=== PATIENT | female | born 1950 | race American Indian/Alaskan Native ===

== ENCOUNTER 2017-01-23 14:38 | Emergency (ER) | payer MEDICARE ==
[2017-01-23 17:07] LABS: Basophils % (Auto) 0.7 % (0.0-1.8); Eosinophils % (Auto) 2.6 % (0.0-4.3); Hemoglobin 10.9 gm/dl (10.1-14.3); Mean Corpuscular HGB Conc 32 % (30-34); Mean Corpuscular Hemoglobin 28 pg (28-32); Mean Corpuscular Volume 88 fl (79-97); Platelet Count 186 K/mm3 (140-440); Red Blood Count 3.87 M/mm3 (3.65-5.03); Red Cell Distribution Width 17.2 % (13.2-15.2); White Blood Count 6.5 K/mm3 (4.5-11.0)
[2017-01-23 17:18] LABS: Albumin 3.6 g/dL (3.9-5); Albumin/Globulin Ratio 0.9 %; BUN/Creatinine Ratio 4.51; Bilirubin,Total 0.4 mg/dL (0.1-1.2); Calcium 9.2 mg/dL (8.4-10.2); Potassium 3.7 mmol/L (3.6-5.0); Total Protein 7.4 g/dL (6.3-8.2)
--- NOTE | 2017-01-23 19:40 | Admit Criteria Form ---
Admission Criteria Documentation: RENAL FAILURE, CHRONIC Clinical Indications for Admission to Inpatient Care (Place 'X' for any and all applicable criteria): Admission is indicated for ANY ONE of the following (1)(2)(3)(4)(5): [ ]I. Inpatient admission required rather than observation care (Use Renal Failure, Chronic: Observation Care Criteria as appropriate) because of ANY ONE of the following: [ ]a) Volume overload or uremic symptoms (eg, clinically significant pulmonary edema, hypertension, pericarditis, acidosis) too severe for, or not responsive (eg, for over 24 hours) to emergency department or observation care dialysis or treatment regimen (11) [ ]b) Hemodynamic instability that is severe or persistent [ ]c) Respiratory distress that is severe or persistent (11) [ ]d) Clinically significant electrolyte abnormality that requires inpatient care (eg,hyperkalemia with severe ECG findings)[B] [ ]e) Supplement O2 or respiratory therapy for over 24hrs that is performable only in acute inpatient setting [ ]f) Continuous IV infusion of anticoagulation, platelet inhibitor, vasoactive, or Antiarrhythmic medication (15), [ ]g) Pulmonary artery catheter monitoring [ ]h) Temporary pacemaker placement [ ]i) Emergent pericardiocentesis [ ]j) Other condition, treatment or monitoring requiring inpatient admission [ ]II. Unexplained syncope [A] [ ]III. Recurrent seizures [ ]IV. Severe infections not treatable in outpatient setting (eg, peritonitis)(9 ) [ ]V. Cardiac arrhythmias of immediate concern [ ]. Encephalopathy [ ]VII.Bleeding abnormalities (eg, platelet dysfunction) with active (eg, gastrointestinal) bleeding Extended stay beyond goal length of stay may be needed for (3)(4)(35)(36): [ ]a) Continuing uremic complications [ ]b) Comorbidities or complications The original [employer] content created by [employer] has been revised. The portions of the content which have been revised are identified through the use of italic text or in bold, and [employer] has neither reviewed nor approved the modified material. All other unmodified content is copyright [employer]. Please see references footnoted in the original [employer] edition 2016
[2017-01-23 21:53] LABS: Bacteria,Urine 1+ /HPF (Negative); Bilirubin,Urine NEG (Negative); Blood,Urine MOD (Negative); Ketones,Urine NEG (Negative); Leukocyte Esterase,Urine LG (Negative); Nitrite,Urine NEG (Negative); Renal Epithelial Cells,Urine 1 /LPF; Urobilinogen,Urine < 2.0 mg/dL (<2.0)
[2017-01-24] MEDS ORDERED: VALIUM IM ONE (03:40)
[2017-01-24] MEDS ORDERED: ZOFRAN ODT PO ONE (03:43)
--- NOTE | 2017-01-24 05:36 | Emergency Department Report ---
HPI - General Chief Complaint: Abdominal Pain Time Seen by Provider: 01/24/17 02:00 - HPI HPI: The patient's is a 66-year-old female whom presents for evaluation of abdominal pain. The patient reports abdominal pain for the past 2 months, recurring one day ago, concentrated to the left upper quadrant and bilateral flanks, 10/10 in severity, sharp in quality, increased with movement. The patient denies fever, chills, night sweats, diarrhea, blood in the stool, dark tarry stool, dysuria, hematuria, flank pain, genital discharge, inability to pass flatus. Trauma to the abdomen or flanks, ED Past Medical Hx - Past Medical History Hx Hypertension: Yes Hx Diabetes: Yes Hx GERD: Yes Hx Renal Disease: Yes (DIALYSIS ) Hx of Cancer: Yes (BREAST) Hx Arthritis: Yes Hx Kidney Stones: Yes Hx HIV: No Additional medical history: benign mass on intestine. HIGH CHOLESTEROL. ANEMIA. TIA - Surgical History Hx Cholecystectomy: Yes Hx Appendectomy: Yes Hx Breast Surgery: Yes (LEFT BREAST LUMPECTOMY) Additional Surgical History: AV fistula left arm, hysterectomy, , tonsillectomy, colostomy, colostomy reversal. HERNIA REPAIR. LITHOTRIPSY - Social History Smoking Status: Never Smoker Substance Use Type: Prescribed - Medications Home Medications: Home Medications Medication Instructions Recorded Confirmed Last Taken Type AtorvaSTATin [Lipitor] 20 mg PO QHS 04/07/16 04/07/16 Unknown History Cholecalciferol (Vitamin D3) 10,000 unit PO 1XW 04/07/16 04/07/16 04/04/16 History [Vitamin D3] Cinacalcet HCl [Sensipar] 60 mg PO DAILY 04/07/16 04/07/16 Unknown History Glimepiride [Amaryl] 2 mg PO QDAY 04/07/16 04/07/16 Unknown History Sevelamer Carbonate [Renvela] 800 mg PO TIDWM 04/07/16 04/07/16 Unknown History Clopidogrel [Plavix] 75 mg PO QDAY #30 tablet 04/09/16 Unknown Rx Hydrochlorothiazide [Hctz] 12.5 mg PO QDAY #30 capsule 04/09/16 Unknown Rx Pantoprazole [Protonix TAB] 20 mg PO QDAY #30 tablet 04/09/16 Unknown Rx Tamsulosin [Flomax] 0.4 mg PO QDAY #30 cap 04/09/16 Unknown Rx amLODIPine [Norvasc] 10 mg PO DAILY #30 tab 04/09/16 Unknown Rx Cyclobenzaprine HCl [Flexeril 5 MG 5 mg PO Q8HR PRN #15 tab 01/24/17 Unknown Rx TAB] ED Review of Systems ROS: Stated complaint: SEVERE BACK PAIN Other details as noted in HPI Constitutional: denies: fever ENT: denies: throat or neck pain Respiratory: denies: cough, shortness of breath Cardiovascular: denies: chest pain Endocrine: denies unexplained weight loss or gain Gastrointestinal: reports abdominal pain, nausea Genitourinary: denies: dysuria Musculoskeletal: denies: leg swelling Skin: denies: rash Neurological: denies: headache Hematological/Lymphatic: denies: easy bleeding or easy bruising Psych: denies sadness or hopelessness Physical Exam - Physical Exam Vital Signs: Vital Signs 01/23/17 01/24/17 01/24/17 16:33 01:33 01:34 Temperature 98.5 F 98.2 F Pulse Rate 78 79 Respiratory 20 22 22 Rate Blood Pressure 163/70 Blood Pressure 181/81 [Right] O2 Sat by Pulse 98 99 Oximetry Physical Exam: General: well-nourished, well-developed, no acute distress Head: Normocephalic, atraumatic Eyes: normal sclera ENT: Mucous membranes are pink and moist Neck: trachea midline, neck supple, No neck stiffness, no cervical adenopathy Respiratory: Breath sounds equal bilaterally, no wheezing, rales, or rhonchi Cardio: S1 and S2 present, no murmurs, rubs, gallops, capillary refill is brisk Abdomen: Normoactive bowel sounds, soft abdomen, LUQ tender, no rigidity, no guarding or rebound tenderness Chest WALL/Back: No tenderness to palpation of the chest wall, no CVA tenderness with percussion Musc: No pitting edema Skin: No rash Neuro: no facial drooping, normal speech Psych: Normal affect ED Course Vital Signs 01/23/17 01/24/17 01/24/17 16:33 01:33 01:34 Temperature 98.5 F 98.2 F Pulse Rate 78 79 Respiratory 20 22 22 Rate Blood Pressure 163/70 Blood Pressure 181/81 [Right] O2 Sat by Pulse 98 99 Oximetry ED Medical Decision Making - Lab Data Result diagrams: 01/23/17 16:49 01/23/17 16:49 - Medical Decision Making The patient was seen and examined by myself. The patient is placed on a computer aided drafter and continuous pulse ox. On initial evaluation, the patient was found to be in no distress. Evaluation orders are placed. The patient is given IM dose of Valium for her pain and Zofran for her nausea. Lab results reveal elevated creatinine, consistent with outpatient no history of end-stage renal disease, and otherwise labs were non-concerning including WBC and urinalysis. The patient was reevaluated and reported that their symptoms were markedly improved. The patient is stable for discharge with outpatient follow- up. The patient is given follow-up and return instructions. The patient expressed understanding and agreed with the plan. The patient is discharged in stable condition. Critical care attestation.: If time is entered above; I have spent that time in minutes in the direct care of this critically ill patient, excluding procedure time. ED Disposition Clinical Impression: Acute abdominal pain in left upper quadrant, End stage renal disease Disposition: DISCHARGED TO HOME OR SELFCARE Is pt being admited?: No Does the pt Need Aspirin: No Condition: Stable Instructions: Abdominal Pain (ED) Prescriptions: Cyclobenzaprine HCl [Flexeril 5 MG TAB] 5 mg PO Q8HR PRN #15 tab PRN Reason: Pain Referrals: JOE DO [Other] - 3-5 Days Time of Disposition: 05:33
[2017-01-24] MEDS ORDERED: VALIUM ONE (06:05)
[2017-01-24] MEDS ORDERED: ZOFRAN ODT ONE (06:05)
[2017-01-24 06:54] VITALS: BP 155/60
== END 2017-01-24 06:00 | disposition home or self-care (01) ==
LOC: ED 14:38
DX: R10.12 Left upper quadrant pain (principal); E11.22 Type 2 diabetes mellitus with diabetic chronic kidney disease; I12.0 Hypertensive chronic kidney disease with stage 5 chronic kidney disease or end stage renal disease; N18.6 End stage renal disease; Z99.2 Dependence on renal dialysis; K21.9 Gastro-esophageal reflux disease without esophagitis; Z85.3 Personal history of malignant neoplasm of breast
CPT/HCPCS: 36415; 80053; 81001; 83690; 85025; 96372; 99284; J3360; Q0162

== ENCOUNTER 2017-03-16 10:38 | Inpatient (IN) | payer MEDICARE ==
[2017-03-16] MEDS ORDERED: ASPIRIN PR ONE (11:04)
[2017-03-16] MEDS ORDERED: NACL 0.9% 1000 ML 1,000 ML IV ONE (11:07)
[2017-03-16] MEDS ORDERED: HEPARIN IV ONE (11:07)
[2017-03-16] MEDS: fentaNYL DRIP Premix 2,000 MCG/100 ML BAG IV SCH ×2 (11:10→20:30)
[2017-03-16] MEDS ORDERED: fentaNYL DRIP Premix 2,000 MCG/100 ML BAG IV ONE (11:10)
[2017-03-16] MEDS ORDERED: ARTIFICIAL TEARS OPHTH OINT OU PRN (11:12)
[2017-03-16] MEDS ORDERED: VASELINE LIP THERAPY TP PRN (11:12)
[2017-03-16] MEDS ORDERED: QUELICIN IV ONE (11:14)
[2017-03-16] MEDS ORDERED: AMIDATE IV ONE ×2 (11:14→19:28)
[2017-03-16] MEDS ORDERED: FLUSH HEPARIN IV ONE (11:19)
[2017-03-16] MEDS ORDERED: HEPARIN ONE (11:19)
[2017-03-16] MEDS ORDERED: HEPARIN 10,000 UNITS/10 ML ONE ×2 (11:22→11:32)
[2017-03-16] MEDS: XYLOCAINE 2% INFILTRATI ONE ×2 (11:30→14:31)
[2017-03-16] MEDS ORDERED: VERSED ONE ×3 (11:32→14:49)
[2017-03-16] MEDS ORDERED: CALAN ONE (11:32)
[2017-03-16] MEDS ORDERED: HEPARIN/NS 5000 UNIT/500ML(CATH LAB) 1,000 ML IR ONE ×2 (11:32→14:13)
[2017-03-16] MEDS ORDERED: SUBLIMAZE ONE (11:32)
[2017-03-16] MEDS ORDERED: ANGIOMAX IV ONE (11:33)
[2017-03-16] MEDS ORDERED: NITROGLYCERIN SYRINGE 0 ML ONE (11:33)
[2017-03-16] MEDS ORDERED: NACL 0.9% 0 ML ONE (11:33)
[2017-03-16] MEDS ORDERED: WATER FOR INJ (PF) 0 ML ONE (11:33)
[2017-03-16 11:38] LABS: Basophils % (Auto) 0.4 % (0.0-1.8); Eosinophils % (Auto) 1.7 % (0.0-4.3); Hematocrit 37.7 % (30.3-42.9); Hemoglobin 12.1 gm/dl (10.1-14.3); Mean Corpuscular HGB Conc 32 % (30-34); Mean Corpuscular Hemoglobin 28 pg (28-32); Mean Corpuscular Volume 88 fl (79-97); Platelet Count 205 K/mm3 (140-440); Red Blood Count 4.29 M/mm3 (3.65-5.03); White Blood Count 10.6 K/mm3 (4.5-11.0)
--- NOTE | 2017-03-16 11:40 | Emergency Department Report ---
ED CPR HPI - General Chief Complaint: Chest Pain Stated Complaint: CHEST PAIN Time Seen by Provider: 03/16/17 11:06 Source: family Mode of arrival: Wheelchair Limitations: Altered Mental Status - History of Present Illness Initial Comments: 66-year-old female presents to the emergency department complaining of chest pain after dialysis. While in triage, the patient went unresponsive. Patient did receive a complete dialysis treatment today per family. Further history is unable to be obtained from the patient due to her clinical condition. MD Complaint: collapsed during rest Place: other (ED triage) Associated Symptoms: chest pain - Related Data Home Medications Medication Instructions Recorded Confirmed Last Taken AtorvaSTATin [Lipitor] 20 mg PO QHS 04/07/16 04/07/16 Unknown Cholecalciferol (Vitamin D3) 10,000 unit PO 1XW 04/07/16 04/07/16 04/04/16 [Vitamin D3] Cinacalcet HCl [Sensipar] 60 mg PO DAILY 04/07/16 04/07/16 Unknown Glimepiride [Amaryl] 2 mg PO QDAY 04/07/16 04/07/16 Unknown Sevelamer Carbonate [Renvela] 800 mg PO TIDWM 04/07/16 04/07/16 Unknown Previous Rx's Medication Instructions Recorded Last Taken Type Clopidogrel [Plavix] 75 mg PO QDAY #30 tablet 04/09/16 Unknown Rx Hydrochlorothiazide [Hctz] 12.5 mg PO QDAY #30 capsule 04/09/16 Unknown Rx Pantoprazole [Protonix TAB] 20 mg PO QDAY #30 tablet. 04/09/16 Unknown Rx Tamsulosin [Flomax] 0.4 mg PO QDAY #30 cap 04/09/16 Unknown Rx amLODIPine [Norvasc] 10 mg PO DAILY #30 tab 04/09/16 Unknown Rx Cyclobenzaprine HCl [Flexeril 5 MG 5 mg PO Q8HR PRN #15 tab 01/24/17 Unknown Rx TAB] Allergies Allergy/AdvReac Type Severity Reaction Status Date / Time aspirin AdvReac HEART Verified 01/23/17 16:26 FLUTTER ED Review of Systems ROS: Stated complaint: CHEST PAIN Other details as noted in HPI Comment: Unobtainable due to pts medical conditions ED Past Medical Hx - Past Medical History Previous Medical History?: Yes Hx Hypertension: Yes Hx Diabetes: Yes Hx GERD: Yes Hx Renal Disease: Yes (DIALYSIS ) Hx Arthritis: Yes Hx Kidney Stones: Yes Hx HIV: No Additional medical history: benign mass on intestine. HIGH CHOLESTEROL. ANEMIA. TIA - Surgical History Past Surgical History?: Yes Hx Cholecystectomy: Yes Hx Appendectomy: Yes Hx Breast Surgery: Yes (LEFT BREAST LUMPECTOMY) Additional Surgical History: AV fistula left arm, hysterectomy, , tonsillectomy, colostomy, colostomy reversal. HERNIA REPAIR. LITHOTRIPSY - Family History Family history: no significant - Social History Smoking Status: Unknown if ever smoked Substance Use Type: None - Medications Home Medications: Home Medications Medication Instructions Recorded Confirmed Last Taken Type AtorvaSTATin [Lipitor] 20 mg PO QHS 04/07/16 04/07/16 Unknown History Cholecalciferol (Vitamin D3) 10,000 unit PO 1XW 04/07/16 04/07/16 04/04/16 History [Vitamin D3] Cinacalcet HCl [Sensipar] 60 mg PO DAILY 04/07/16 04/07/16 Unknown History Glimepiride [Amaryl] 2 mg PO QDAY 04/07/16 04/07/16 Unknown History Sevelamer Carbonate [Renvela] 800 mg PO TIDWM 04/07/16 04/07/16 Unknown History Clopidogrel [Plavix] 75 mg PO QDAY #30 tablet 04/09/16 Unknown Rx Hydrochlorothiazide [Hctz] 12.5 mg PO QDAY #30 capsule 04/09/16 Unknown Rx Pantoprazole [Protonix TAB] 20 mg PO QDAY #30 tablet. 04/09/16 Unknown Rx Tamsulosin [Flomax] 0.4 mg PO QDAY #30 cap 04/09/16 Unknown Rx amLODIPine [Norvasc] 10 mg PO DAILY #30 tab 04/09/16 Unknown Rx Cyclobenzaprine HCl [Flexeril 5 MG 5 mg PO Q8HR PRN #15 tab 01/24/17 Unknown Rx TAB] ED Physical Exam - General Limitations: Altered Mental Status, Other (exam done after ROSC) General appearance: obtunded - Head Head exam: Present: atraumatic, normocephalic - Eye Eye exam: Present: normal appearance, PERRL - ENT ENT exam: Present: normal exam, normal orophraynx, mucous membranes moist, other (7.[address]) - Neck Neck exam: Present: normal inspection, full ROM - Respiratory Respiratory exam: Present: normal lung sounds bilaterally (with mechanical ventilation) - Cardiovascular Cardiovascular Exam: Present: normal rhythm, tachycardia, normal heart sounds - GI/Abdominal GI/Abdominal exam: Present: soft. Absent: distended - Extremities Exam Extremities exam: Present: normal inspection, full ROM - Back Exam Back exam: Present: normal inspection, full ROM - Neurological Exam Neurological exam: Present: other (GCS 3T (E1, V1T, M1)) - Skin Skin exam: Present: warm, dry ED Course Vital Signs 03/16/17 11:03 Temperature 97.0 F L Pulse Rate 108 H Blood Pressure 195/85 O2 Sat by Pulse 100 Oximetry - Intubation Time Out Performed: Yes Sedative: Etomidate Mg Given: 20 Paralytic: Succinylcholine Mg Given: 120 Laryngoscope: Travis Size: 3 ET Tube Size: 7.5 Tube Secured Depth (cm): 23 Tube Secured Location: teeth Tube Placement Confirmation: visualized tube passing t, equal breath sounds bilat, no breath sounds over epi, confirmation by capnometr Patient Tolerated Procedure: well Intubation Complications: none ED Medical Decision Making - Lab Data Result diagrams: 03/16/17 11:07 - EKG Data -: EKG Interpreted by Me EKG shows normal: sinus rhythm, axis, intervals Rate: tachycardia - EKG Data When compared to previous EKG there are: previous EKG unavailable Interpretation: acute CA (ST elevation V1-V2) - Radiology Data Radiology results: image reviewed interpreted by me: Chest x-ray shows adequate placement of endotracheal tube. No acute cardiopulmonary abnormalities is noted. - Medical Decision Making Patient was placed on the stretcher upon being brought back from triage. No palpable pulses were identified. CPR was initiated under my supervision. Patient was placed on a quality assurance monitor body and ventricular fibrillation was noted. Patient was defibrillated a single time with 200 J. Compressions were immediately restarted following defibrillation. On the next rhythm check, the patient was noted to have a palpable femoral pulse. Sinus tachycardia was noted on the monitor. Patient was intubated by me on the first attempt, see associated procedure note. Postarrest ECG was consistent with anterior STEMI. Code STEMI was activated. Dr. Mohan hughes a cardiology has seen the ECG and I have spoken with him regarding the patient's presentation. Patient is being taken to the Human Performance Consultant emergently for intervention. I have also spoken with Dr. Gutiérrez, nephrology. Patient is to be admitted by the hospitalist. - Differential Diagnosis cardiac arrest, arrhythmia, STEMI Critical care attestation.: If time is entered above; I have spent that time in minutes in the direct care of this critically ill patient, excluding procedure time. ED Disposition Clinical Impression: Cardiac arrest due to underlying cardiac condition STEMI (ST elevation myocardial infarction) Qualifiers: Involved coronary artery: unspecified coronary artery Qualified Code(s): I21.3 - ST elevation (STEMI) myocardial infarction of unspecified site Disposition: OP ADMIT IP TO THIS HOSP Is pt being admited?: Yes Condition: Critical Time of Disposition: 11:06
[2017-03-16 11:47] LABS: INR 1.03 (0.87-1.13)
[2017-03-16 11:48] LABS: Partial Thromboplastin Time 24.1 Sec. (24.2-36.6)
[2017-03-16] MEDS ORDERED: ADRENALIN ONE (11:50)
[2017-03-16] MEDS ORDERED: ATROPINE 0.1% (CARDIAC) ONE (11:50)
[2017-03-16] MEDS ORDERED: CORDARONE IV ONE (11:51)
[2017-03-16] MEDS ORDERED: CORDARONE 900 MG in D5W 482 ML IV STA (11:53)
[2017-03-16] MEDS ORDERED: HEPARIN/ 0.45% NACL-25,000 UNIT/500 ML 25,000 UNIT/500 ML BAG IV SCH ×2 (12:00→22:00)
[2017-03-16] MEDS ORDERED: HEPARIN 10,000 UNITS/10 ML IV ONE (12:00)
[2017-03-16] MEDS ORDERED: NACL 0.9% 500 ML IV SCH (12:00)
[2017-03-16] MEDS ORDERED: DIPRIVAN 10 MG/ML IV ONE ×2 (12:04→12:25)
[2017-03-16] MEDS ORDERED: DIPRIVAN 10 MG/ML 1,000 MG/100 ML BOTTLE IV ONE (12:05)
[2017-03-16] MEDS ORDERED: INTROPIN DRIP 800 MG/D5W 250 ML 800 MG/250 ML BAG IV ONE (12:05)
[2017-03-16] MEDS ORDERED: REOPRO ONE (12:09)
[2017-03-16] MEDS ORDERED: HEPARIN/NS 5000 UNIT/500ML(CATH LAB) 500 ML IR ONE ×2 (12:13→12:25)
--- NOTE | 2017-03-16 12:30 | XRay Report ---
AP CHEST : 03/16/17 10:38:00 CLINICAL: Chest pain. COMPARISON:05/07/13 FINDINGS: An endotracheal tube is in satisfactory position. A nasogastric tube is satisfactory. The heart is large. Central vascular congestion. The lungs are relatively clear. No pneumothorax. However, there is air in a linear configuration at the right mid mediastinum suggesting pneumomediastinum. There is also possible pneumopericardium at the right heart border. Calcification of the aortic knob. IMPRESSION: Possible pneumomediastinum and pneumopericardium. Cardiomegaly but no CHF.
[2017-03-16] MEDS ORDERED: NACL 0.9% 250ML 250 ML ONE (12:33)
[2017-03-16] MEDS ORDERED: PLAVIX ONE (12:40)
[2017-03-16 13:11] LABS: Creatine Kinase MB 4.3 ng/mL (0.0-4.0)
[2017-03-16 13:12] LABS: BUN/Creatinine Ratio 6.12; Calcium 8.9 mg/dL (8.4-10.2); Chloride 89.1 mmol/L (98-107); Potassium 3.2 mmol/L (3.6-5.0)
--- NOTE | 2017-03-16 13:58 | Event Note ---
Date: 03/16/17 Full cath report and consult dictated. Results reviewed with family. Pt is intubated and sedated. Admit to ICU team - will discuss with auto crane driver.
[2017-03-16] MEDS ORDERED: XYLOCAINE 2% INFILTRATI ONE (14:19)
[2017-03-16] MEDS ORDERED: NITROGLYCERIN SYRINGE 3 ML ONE (14:32)
--- NOTE | 2017-03-16 15:40 | Consultation ---
History of Present Illness - Reason for Consult Consult date: 03/16/17 end stage renal disease Requesting physician: ROB AGUILAR - History of Present Illness 66-year-old female presents to the emergency department complaining of chest pain after dialysis. While in triage, the patient went unresponsive. Patient did receive a complete dialysis treatment today per family. Further history is unable to be obtained from the patient due to her clinical condition. Apparently she was in V. fib arrest. She was successfully resuscitated and intubated. He just completed a cardiac cath emergently. She is now on the ventilator. Be admitted to the ICU. He undergoes hemodialysis at [facility] on Tuesdays, and Saturdays. She did complete her treatment today. Spoke with RN at dialysis clinic. For dialysis treatment was uneventful and without any complaints. She apparently started to have chest pain after she returned home and came to the emergency room. Past History Past Medical History: cancer (breast cancer status post lumpectomy), diabetes, dialysis, hypertension, other (history of benign colonic mass) Past Surgical History: Other (history of creation of AV fistula. History of colostomy and reversal of colostomy. Left breast lumpectomy) Social history: no significant social history Family history: no significant family history Medications and Allergies Allergies Allergy/AdvReac Type Severity Reaction Status Date / Time aspirin AdvReac HEART Verified 01/23/17 16:26 FLUTTER Home Medications Medication Instructions Recorded Confirmed Last Taken Type AtorvaSTATin [Lipitor] 20 mg PO QHS 04/07/16 04/07/16 Unknown History Cholecalciferol (Vitamin D3) 10,000 unit PO 1XW 04/07/16 04/07/16 04/04/16 History [Vitamin D3] Cinacalcet HCl [Sensipar] 60 mg PO DAILY 04/07/16 04/07/16 Unknown History Glimepiride [Amaryl] 2 mg PO QDAY 04/07/16 04/07/16 Unknown History Sevelamer Carbonate [Renvela] 800 mg PO TIDWM 04/07/16 04/07/16 Unknown History Clopidogrel [Plavix] 75 mg PO QDAY #30 tablet 04/09/16 Unknown Rx Hydrochlorothiazide [Hctz] 12.5 mg PO QDAY #30 capsule 04/09/16 Unknown Rx Pantoprazole [Protonix TAB] 20 mg PO QDAY #30 tablet.dr 04/09/16 Unknown Rx Tamsulosin [Flomax] 0.4 mg PO QDAY #30 cap 04/09/16 Unknown Rx amLODIPine [Norvasc] 10 mg PO DAILY #30 tab 04/09/16 Unknown Rx Cyclobenzaprine HCl [Flexeril 5 MG 5 mg PO Q8HR PRN #15 tab 01/24/17 Unknown Rx TAB] Active Meds: Active Medications Clopidogrel Bisulfate (Plavix) 75 mg PO QDAY ANNETTE Hydrophilic Ointment (Vaseline Lip Therapy) 1 applic TP Q2HR PRN PRN Reason: Dry Lips Heparin Sodium/Sodium Chloride (Heparin/ 0.45% Nacl-25,000 Unit/500 Ml) 25,000 unit in 500 mls @ 20 mls/hr IV TITRATE ANNETTE; 1,000 UNITS/HR PRN Reason: Protocol Last Admin: 03/16/17 11:15 Dose: 1,000 units/hr, 20 mls/hr Sodium Chloride (Nacl 0.9% 1000 Ml) 1,000 mls @ 42 mls/hr IV ONCE ONE Stop: 03/17/17 10:55 Fentanyl Citrate (Fentanyl Drip Premix) 2,000 mcg in 100 mls @ 5.216 mls/hr IV TITR ANNETTE; 1 MCG/KG/HR PRN Reason: Protocol Last Admin: 03/16/17 11:10 Dose: 1 mcg/kg/hr, 5.216 mls/hr Multi-Ingred Cream/Lotion/Oil/Oint (Artificial Tears Ophth Oint) 1 applic OU Q4HR PRN PRN Reason: Dry Eye(s) Sodium Chloride (Nacl 0.9% 500 Ml) 1 ml IV DIRECT ANNETTE Review of Systems ROS unobtainable: due to endotracheal tube Exam - Vital Signs Vital signs: Vital Signs Temp Pulse BP Pulse Ox 97.0 F L 108 H 195/85 100 03/16/17 11:03 03/16/17 11:03 03/16/17 11:03 03/16/17 11:03 - General Appearance General appearance: well-developed, well-nourished, appears stated age, intubated EENT: PERRL, mucous membranes moist Neck: Present: neck supple, trachea midline. Absent: JVD/HJR, Masses Respiratory: Clear to Ascultation Heart: regular Gastrointestinal: Present: normal, normoactive bowel sounds Integumentary: no rash, other (AV fistula left upper arm. Good bruit and thrill ) Results - Lab Results 03/16/17 11:07 03/16/17 11:07 Most recent lab results Calcium 8.9 mg/dL (8.4-10.2) 03/16/17 11:07 Assessment and Plan Impression * End-stage renal disease on maintenance hemodialysis * Status post V. fib cardiac arrest * Hypertension * Diabetes * History of breast cancer * Anemia secondary to ESRD * Hyperlipidemia Recommendations * Patient's volume status and electrolytes are acceptable * No urgent indication for dialysis today * AV fistula is still functional. Has a good bruit and thrill * No IV BP or venipuncture access arm * Adjust diet and meds for ESRD state * Shall follow her closely and decide about her next dialysis treatment * Her outpatient days are Mondays, Wednesdays and Fridays * Thank you very much for the consultation. Shall follow along with you
--- NOTE | 2017-03-16 16:04 | Consultation ---
History of Present Illness Consult date: 03/16/17 Requesting physician: FLACA LOPEZ History of present illness: PULMONARY/CCM CONSULT NOTE (Full dictation # [id number]) Please see dictated notes for full details Past History Past Medical History: cancer (breast cancer status post lumpectomy), diabetes, dialysis, hypertension, other (history of benign colonic mass) Past Surgical History: Other (history of creation of AV fistula. History of colostomy and reversal of colostomy. Left breast lumpectomy) Social history: no significant social history Family history: no significant family history Medications and Allergies Allergies Allergy/AdvReac Type Severity Reaction Status Date / Time aspirin AdvReac HEART Verified 01/23/17 16:26 FLUTTER Home Medications Medication Instructions Recorded Confirmed Last Taken Type AtorvaSTATin [Lipitor] 20 mg PO QHS 04/07/16 04/07/16 Unknown History Cholecalciferol (Vitamin D3) 10,000 unit PO 1XW 04/07/16 04/07/16 04/04/16 History [Vitamin D3] Cinacalcet HCl [Sensipar] 60 mg PO DAILY 04/07/16 04/07/16 Unknown History Glimepiride [Amaryl] 2 mg PO QDAY 04/07/16 04/07/16 Unknown History Sevelamer Carbonate [Renvela] 800 mg PO TIDWM 04/07/16 04/07/16 Unknown History Clopidogrel [Plavix] 75 mg PO QDAY #30 tablet 04/09/16 Unknown Rx Hydrochlorothiazide [Hctz] 12.5 mg PO QDAY #30 capsule 04/09/16 Unknown Rx Pantoprazole [Protonix TAB] 20 mg PO QDAY #30 tablet. 04/09/16 Unknown Rx Tamsulosin [Flomax] 0.4 mg PO QDAY #30 cap 04/09/16 Unknown Rx amLODIPine [Norvasc] 10 mg PO DAILY #30 tab 04/09/16 Unknown Rx Cyclobenzaprine HCl [Flexeril 5 MG 5 mg PO Q8HR PRN #15 tab 01/24/17 Unknown Rx TAB] Active Meds: Active Medications Clopidogrel Bisulfate (Plavix) 75 mg PO QDAY ANNETTE Hydrophilic Ointment (Vaseline Lip Therapy) 1 applic TP Q2HR PRN PRN Reason: Dry Lips Heparin Sodium/Sodium Chloride (Heparin/ 0.45% Nacl-25,000 Unit/500 Ml) 25,000 unit in 500 mls @ 20 mls/hr IV TITRATE ANNETTE; 1,000 UNITS/HR PRN Reason: Protocol Last Admin: 03/16/17 11:15 Dose: 1,000 units/hr, 20 mls/hr Sodium Chloride (Nacl 0.9% 1000 Ml) 1,000 mls @ 42 mls/hr IV ONCE ONE Stop: 03/17/17 10:55 Fentanyl Citrate (Fentanyl Drip Premix) 2,000 mcg in 100 mls @ 5.216 mls/hr IV TITR ANNETTE; 1 MCG/KG/HR PRN Reason: Protocol Last Admin: 03/16/17 11:10 Dose: 1 mcg/kg/hr, 5.216 mls/hr Amiodarone HCl 900 mg/ (Dextrose) 500 mls @ 33.33 mls/hr IV DIRECT ANNETTE; 1 MG /MIN PRN Reason: Protocol Multi-Ingred Cream/Lotion/Oil/Oint (Artificial Tears Ophth Oint) 1 applic OU Q4HR PRN PRN Reason: Dry Eye(s) Sodium Chloride (Nacl 0.9% 500 Ml) 1 ml IV DIRECT ANNETTE Physical Examination Vital signs: Vital Signs Temp Pulse BP Pulse Ox 97.0 F L 108 H 195/85 100 03/16/17 11:03 03/16/17 11:03 03/16/17 11:03 03/16/17 11:03 Results - Laboratory Findings CBC and BMP: 03/16/17 11:07 03/16/17 11:07 PT/INR, D-dimer PT 13.4 Sec. (12.2-14.9) 03/16/17 11:07 INR 1.03 (0.87-1.13) 03/16/17 11:07
[2017-03-16] MEDS ORDERED: DULCOLAX PR PRN (16:26)
[2017-03-16] MEDS ORDERED: MILK OF MAGNESIA PO PRN (16:26)
[2017-03-16] MEDS ORDERED: ALUM-MAG HYDROX-SIMETH 200-200-20MG/5ML PO PRN (16:26)
--- NOTE | 2017-03-16 16:40 | History and Physical Report ---
History of Present Illness Date of examination: 03/16/17 Date of admission: 03/16/17 13:43 Chief complaint: cp History of present illness: 66-year-old female presents to the emergency department complaining of chest pain after dialysis. While in triage, the patient went unresponsive. Patient did receive a complete dialysis treatment today per ER records. Further history is unable to be obtained from the patient due to her clinical condition. Patient is currently intubated on mechanical ventilation. Patient reportedly was in V. fib arrest and successfully resuscitated and intubated. Patient was seen in the [facility] after undergoing stents 2 to the LAD. Patient reportedly had an uneventful hemodialysis and return home where she apparently started to have chest pain and came to the emergency room. Past History Past Medical History: cancer (breast cancer status post lumpectomy), diabetes, dialysis, hypertension, other (history of benign colonic mass) Past Surgical History: Other (history of creation of AV fistula. History of colostomy and reversal of colostomy. Left breast lumpectomy) Social history: no significant social history Family history: no significant family history Medications and Allergies Allergies Allergy/AdvReac Type Severity Reaction Status Date / Time aspirin AdvReac HEART Verified 01/23/17 16:26 FLUTTER Home Medications Medication Instructions Recorded Confirmed Last Taken Type AtorvaSTATin [Lipitor] 20 mg PO QHS 04/07/16 04/07/16 Unknown History Cholecalciferol (Vitamin D3) 10,000 unit PO 1XW 04/07/16 04/07/16 04/04/16 History [Vitamin D3] Cinacalcet HCl [Sensipar] 60 mg PO DAILY 04/07/16 04/07/16 Unknown History Glimepiride [Amaryl] 2 mg PO QDAY 04/07/16 04/07/16 Unknown History Sevelamer Carbonate [Renvela] 800 mg PO TIDWM 04/07/16 04/07/16 Unknown History Clopidogrel [Plavix] 75 mg PO QDAY #30 tablet 04/09/16 Unknown Rx Hydrochlorothiazide [Hctz] 12.5 mg PO QDAY #30 capsule 04/09/16 Unknown Rx Pantoprazole [Protonix TAB] 20 mg PO QDAY #30 tablet. 04/09/16 Unknown Rx Tamsulosin [Flomax] 0.4 mg PO QDAY #30 cap 04/09/16 Unknown Rx amLODIPine [Norvasc] 10 mg PO DAILY #30 tab 04/09/16 Unknown Rx Cyclobenzaprine HCl [Flexeril 5 MG 5 mg PO Q8HR PRN #15 tab 01/24/17 Unknown Rx TAB] Active Meds: Active Medications Al Hydrox/Mg Hydrox/Simethicone (Alum-Mag Hydrox-Simeth 147-338-58mh/5ml) 30 ml PO Q4H PRN PRN Reason: Indigestion Bisacodyl (Dulcolax) 10 mg ID QDAY PRN PRN Reason: constipation unrelieved by MOM Clopidogrel Bisulfate (Plavix) 75 mg PO QDAY ANNETTE Hydrophilic Ointment (Vaseline Lip Therapy) 1 applic TP Q2HR PRN PRN Reason: Dry Lips Heparin Sodium/Sodium Chloride (Heparin/ 0.45% Nacl-25,000 Unit/500 Ml) 25,000 unit in 500 mls @ 20 mls/hr IV TITRATE ANNETTE; 1,000 UNITS/HR PRN Reason: Protocol Last Admin: 03/16/17 11:15 Dose: 1,000 units/hr, 20 mls/hr Sodium Chloride (Nacl 0.9% 1000 Ml) 1,000 mls @ 42 mls/hr IV ONCE ONE Stop: 03/17/17 10:55 Fentanyl Citrate (Fentanyl Drip Premix) 2,000 mcg in 100 mls @ 5.216 mls/hr IV TITR ANNETTE; 1 MCG/KG/HR PRN Reason: Protocol Last Admin: 03/16/17 11:10 Dose: 1 mcg/kg/hr, 5.216 mls/hr Amiodarone HCl 900 mg/ (Dextrose) 500 mls @ 33.33 mls/hr IV DIRECT ANNETTE; 1 MG /MIN PRN Reason: Protocol Magnesium Hydroxide (Milk Of Magnesia) 30 ml PO Q4H PRN PRN Reason: Constipation Multi-Ingred Cream/Lotion/Oil/Oint (Artificial Tears Ophth Oint) 1 applic OU Q4HR PRN PRN Reason: Dry Eye(s) Sodium Chloride (Nacl 0.9% 500 Ml) 1 ml IV DIRECT ANNETTE Review of Systems ROS unobtainable: due to endotracheal tube, due to mental status Exam - Constitutional Vitals: Temp Pulse Resp BP Pulse Ox 97.0 F L 120 H 18 156/81 100 03/16/17 11:03 03/16/17 15:38 03/16/17 12:48 03/16/17 15:38 03/16/17 15:38 General appearance: Present: no acute distress, well-nourished - EENT Eyes: Present: PERRL ENT: hearing intact, clear oral mucosa - Neck Neck: Present: supple, normal ROM - Respiratory Respiratory effort: normal Respiratory: bilateral: diminished, rales, rhonchi - Cardiovascular Heart Sounds: Present: S1 & S2. Absent: rub, click - Extremities Extremities: pulses symmetrical, No edema Peripheral Pulses: within normal limits - Abdominal General gastrointestinal: Present: soft, non-tender, non-distended, normal bowel sounds Female genitourinary: Present: normal - Integumentary Integumentary: Present: clear, warm, dry - Musculoskeletal Musculoskeletal: gait normal, strength equal bilaterally - Psychiatric Psychiatric: appropriate mood/affect, intact judgment & insight - Neurologic Neurologic: CNII-XII intact, moves all extremities Results - Labs CBC & Chem 7: 03/16/17 11:07 03/16/17 11:07 Labs: Laboratory Last Values WBC 10.6 K/mm3 (4.5-11.0) 03/16/17 11:07 RBC 4.29 M/mm3 (3.65-5.03) 03/16/17 11:07 Hgb 12.1 gm/dl (10.1-14.3) 03/16/17 11:07 Hct 37.7 % (30.3-42.9) 03/16/17 11:07 MCV 88 fl (79-97) 03/16/17 11:07 MCH 28 pg (28-32) 03/16/17 11:07 MCHC 32 % (30-34) 03/16/17 11:07 RDW 17.0 % (13.2-15.2) H 03/16/17 11:07 Plt Count 205 K/mm3 (140-440) 03/16/17 11:07 Lymph % (Auto) 33.2 % (13.4-35.0) 03/16/17 11:07 [place]wood % (Auto) 6.8 % (0.0-7.3) 03/16/17 11:07 Eos % (Auto) 1.7 % (0.0-4.3) 03/16/17 11:07 Baso % (Auto) 0.4 % (0.0-1.8) 03/16/17 11:07 Lymph # 3.5 K/mm3 (1.2-5.4) 03/16/17 11:07 [place]wood # 0.7 K/mm3 (0.0-0.8) 03/16/17 11:07 Eos # 0.2 K/mm3 (0.0-0.4) 03/16/17 11:07 Baso # 0.0 K/mm3 (0.0-0.1) 03/16/17 11:07 Seg Neutrophils % 57.9 % (40.0-70.0) 03/16/17 11:07 Seg Neutrophils # 6.1 K/mm3 (1.8-7.7) 03/16/17 11:07 PT 13.4 Sec. (12.2-14.9) 03/16/17 11:07 INR 1.03 (0.87-1.13) 03/16/17 11:07 APTT 24.1 Sec. (24.2-36.6) L 03/16/17 11:07 Sodium 128 mmol/L (137-145) L 03/16/17 11:07 Potassium 3.2 mmol/L (3.6-5.0) L 03/16/17 11:07 Chloride 89.1 mmol/L (98-107) L 03/16/17 11:07 Carbon Dioxide 20 mmol/L (22-30) L 03/16/17 11:07 Anion Gap 22 mmol/L 03/16/17 11:07 BUN 30 mg/dL (7-17) H 03/16/17 11:07 Creatinine 4.9 mg/dL (0.7-1.2) H 03/16/17 11:07 Estimated GFR 11 ml/min 03/16/17 11:07 BUN/Creatinine Ratio 6.12 % 03/16/17 11:07 Glucose 226 mg/dL (65-100) H 03/16/17 11:07 Calcium 8.9 mg/dL (8.4-10.2) 03/16/17 11:07 Total Creatine Kinase 128 units/L (30-135) 03/16/17 11:07 CK-MB (CK-2) 4.3 ng/mL (0.0-4.0) H 03/16/17 11:07 CK-MB (CK-2) Rel Index 3.3 (0-4) 03/16/17 11:07 Troponin T 0.068 ng/mL (0.00-0.029) H 03/16/17 11:07 Triglycerides 134 mg/dL (2-149) 03/16/17 11:07 Cholesterol 228 mg/dL (50-199) H 03/16/17 11:07 LDL Cholesterol Direct 165 mg/dL (50-130) H 03/16/17 11:07 HDL Cholesterol 37 mg/dL (40-59) L 03/16/17 11:07 Cholesterol/HDL Ratio 6.16 % 03/16/17 11:07 Assessment and Plan Assessment and plan: Status post V. fib cardiac arrest. Cardiology following. Acute coronary syndrome. Patient with stent 2 to the LAD. Await full cardiac catheterization report. Acute hypoxemic respiratory failure. Etiology secondary to above. She will be maintained on a ventilator. Pulmonary consultation pending. Hypertension. Resume antihypertensive medications. End stage renal disease on hemodialysis. Nephrology following. Continue hemodialysis Saturday and Fridays. Diabetes mellitus type 2. Accu-Cheks and sliding scale insulin. Anemia of CKD. Follow H&H. Transfuse as necessary. History of breast cancer. Hyperlipidemia. The high probability of a clinically significant, sudden or life threatening deterioration of the [respiratory and cardiovascular] system(s) required my full and direct attention, intervention and personal management. The aggregate critical care time was [34] minutes. This time is in addition to time spent performing reported procedures but includes the following: [x] Data Review and interpretation [x] Patient assessment and monitoring of vital signs [x] Documentation [x] Medication orders and management
[2017-03-16 17:19] LABS: Creatine Kinase MB 24.2 ng/mL (0.0-4.0)
[2017-03-16 18:51] LABS: ISTAT Base Excess 0; ISTAT HCO3 25.6; ISTAT PCO2 47.9 (35-45); ISTAT PH 7.336 (7.35-7.45); ISTAT PO2 189 (80-105); ISTAT SO2 100; ISTAT TCO2 27
[2017-03-16] MEDS ORDERED: REOPRO IV SCH (19:00)
[2017-03-16] MEDS ORDERED: QUELICIN ONE (19:28)
--- NOTE | 2017-03-16 21:23 | Cardiac Catherization Report ---
REFERRING PHYSICIAN: Dr. Gao. INDICATION FOR PROCEDURE: VF arrest in the field, borderline anterior ST elevation on EKG, STEMI protocol. There was some delay in bringing the patient to the catheterization lab due to the patient coding and being intubated. PROCEDURE IN DETAIL: The patient was brought to the cath lab tech in an urgent fashion. She was prepped and draped in sterile fashion. Respiratory team is here throughout the case, on ventilator. We called Anesthesia to help with sedation and she was significantly bucking the vent despite being on sedations; propofol was started. I gained access in the right femoral artery and the right femoral vein with 6-Indonesian sheaths via modified Seldinger technique. A temporary pacemaker was placed in the apex of the right ventricle, functioning properly. We used a JR4 catheter to engage the left main. No dampening or ventricularization. Cineangiography performed in all projections. Next, we used a JR4 catheter to cross the aortic valve under fluoroscopic guidance, revealed normal left ventricular systolic performance, estimated ejection fraction of 55% to 60%. DATA: Aortic pressure 110/50, LV pressure is 110, LVEDP of 5 mmHg. The patient remained in sinus rhythm throughout the procedure, was paced intermittently. Right coronary is a moderate sized vessel, courses AV groove, distally bifurcates in the posterior descending and posterolateral branch. There appears to be a small nub at the distal right coronary posterolateral branch, very small vessel; however, given her presentation, we decided to pursue this. The left main is without significant disease. It bifurcates into left anterior descending and left circumflex. Left circumflex is a large vessel, courses AV groove. No significant disease. LAD is a moderate sized vessel, courses AV anterior intergroove, wraps around the apex. There is 90% stenosis in the mid LAD, which is very tight, heavily calcified. Unclear if this is a culprit. There is MAT 3 flow; however, presentation leads me to be concerned about this lesion. Unclear if this is a multiple culprit lesion presentation. It is not entirely convincing either way. First approached the right coronary. Heparin was given. Some question of aspirin ____ allergy. She has been loaded with Plavix via her NG tube. Reopro was given. We used a JR4 guide to engage the right without difficulty. We used a FORVM wire to cross the lesion without difficulty. There is improved flow, but this is a 1.0 vessel, tiny vessel, which I do not think led to any untoward consequences here. I do not believe it is worthy of ballooning. There are no complications. Given how tiny the vessel is, I decided to leave it alone further with the last picture the patient with MAT 3 flow and a very small distal right posterolateral vessel. There is no dye hangup or flushing consistent with thrombus or atherothrombosis. Next, I turned my attention to the LAD. Given the presentation of VF, concerned that the LAD had closed and recannulated, large vessel, heavily calcified. The patient is a dialysis patient. This whole time we are also waiting for labs, which are not available yet. I used an EBU 3.75 guide to engage the left main without difficulty. Abnormal ACT is confirmed. The patient has already been loaded with Plavix. No aspirin due to significant allergy. Reopro drip is going. A Prowater wire was used to cross the lesion without difficulty. We ballooned the lesion, heavily calcified, unable to deliver any stent. Next, we used a noncompliant 2.5 balloon in the mid section, still unable to deliver a stent. Next, we used a kailash wire with an All Star wire. Multiple balloons were made with noncompliant balloons with 2.0 and 3.0, still very difficult to cross, heavily, heavily calcified lesion. MAT 3 flow throughout. Finally, I was able to deliver a 2.5 x 12 Integrity stent. Good angiographic result. Next, I used a 2.75 x 18 stent overlapping proximally to cover the entire length of the lesion. Excellent angiographic result. We postdilated the entire 2 stents with a 2.75 x 12 noncompliant balloon and excellent final angiographic results. Intravascular ultrasound was performed and revealed an excellent result, well apposed and well expanded stent. No evidence of dissection. Final angiogram reveals no evidence of complication, MAT 3 flow. The patient's blood pressure is on the lower side with 10 of dopamine. In reviewing her abdomen on fluoroscopy she has a heavily calcified aorta, which is no surprise given her coronaries. She is also bucking the vent and moving her right leg. At this point, despite hypotension, I believe that the placement of intra-aortic balloon pump would outweigh the benefit. Moreover, her left ventricular end-diastolic pressure is normal and that she may be somewhat volume depleted. She is a dialysis patient. We need to be cautious here. CONCLUSIONS: 1. A 66-year-old -[place] female status post VF arrest in the field. A. Successful complex PCI of the heavily calcified mid LAD with placement of 2 drug-eluting stents. Excellent final angiographic and ultrasonographic result. B. Occlusion of a very small right posterolateral which was dottered with a wire and now with MAT 3 flow. This is a 1.0 vessel. Medical management. No other significant disease is identified. C. Normal left ventricular systolic performance, estimated ejection fraction of 60% to 65%. D. Normal left ventricular end-diastolic pressure. She now has a temporary pacemaker. She is mostly self paced. Amiodarone drip is going. Heparin drip is going. We will go ahead and discontinue Reopro. She has been loaded with Plavix. Unclear about neurologic status. She will be admitted to ICU team. Hospitalist will follow. Labs are pending still. We will watch this closely. Nephrology will also be consulted. The etiology of her VF arrest is still not entirely clear. This was discussed at length with the patient's daughter and her brother. She will be transferred to the ICU in critical condition on the hospitalist service. Again, we will also discuss with the cardiograph operator team. JOB# [id number] TORIBIO/AD
--- NOTE | 2017-03-17 00:23 | Consultation ---
CARDIOLOGY CONSULTATION REFERRING PHYSICIAN: Dr. Perfecto Gao. REASON FOR CONSULTATION: Advice and opinion regarding cardiac arrest. HISTORY OF PRESENT ILLNESS: As per ER physician and chart. The patient is a 66-year-old -[place] female who underwent dialysis today and postdialysis apparently was not feeling well and had a cardiac arrest, was found to be in V-fib, was defibrillated, brought to the Emergency Room, intubated. She is seen in the Emergency Room, intubated and sedated. She has sinus tachycardia. Initial EKG shows borderline ST elevation in V1 and V2. She is referred for urgent heart catheterization. HISTORY: Hypertension, dialysis. Other history is unknown at this time. ALLERGIES: ASPIRIN. She \\"has a significant aspirin allergy.\\" Details are unclear to me at this point. Unknown if she has other allergies. REVIEW OF SYSTEMS: Unable to obtain as she is intubated. Unable to obtain remainder of history. PHYSICAL EXAMINATION: VITAL SIGNS: Blood pressure is 110/70. She is in sinus tachycardia with heart rate of 120, afebrile. O2 sat on ventilator is 99%. GENERAL: This is an elderly -[place] female, intubated, sedated. HEENT: Sclerae are anicteric. NECK: Supple, no masses. CHEST: Clear to auscultation bilaterally. CARDIOVASCULAR: Tachycardic, S1, S2. ABDOMEN: Soft, nontender. EXTREMITIES: No significant edema. DATA: EKG is aforementioned. LABORATORY DATA: Pending. ASSESSMENT AND PLAN: The patient is a 66-year-old -[place] female. 1. Ventricular fibrillation arrest in the field, status post defibrillation x 1, intubated. Apparently a narrow downtime. She is referred for STEMI protocol, given IV heparin. Further plans contingent on cath results. JOB# [id number] SBM/NTS
[2017-03-17 04:04] LABS: Hematocrit 34.6 % (30.3-42.9); Hemoglobin 11.1 gm/dl (10.1-14.3); Mean Corpuscular HGB Conc 32 % (30-34); Mean Corpuscular Hemoglobin 28 pg (28-32); Mean Corpuscular Volume 86 fl (79-97); Platelet Count 202 K/mm3 (140-440); Red Cell Distribution Width 17.3 % (13.2-15.2)
--- NOTE | 2017-03-17 04:04 | Consultation ---
CONSULTING PHYSICIAN: Dr. Thurman. REASON FOR CONSULTATION: Acute respiratory failure. CHIEF COMPLAINT AND HISTORY OF PRESENT ILLNESS: The patient is a 66-year-old -[place] female, according to the records, she had dialysis, was complaining of chest pain after the dialysis session. While in triage, she became unresponsive. She had completed the dialysis prior to that. It seems like ACLS protocol was initiated and ultimately she went into VFib arrest and was resuscitated. She was taken into the earth science laboratory technician. She ended up getting stenting to the LAD, was about 90% blocked, it was opened and stented and post-cath, it seems like she had evidence on EKG of further ischemic event; however, this was believed to be secondary to vasospasm and not actual blockage. Post-cath, he was brought into the Intensive Care Unit where I stopped by to see her. When I stopped by to see her, she was on the ventilator, she was sedated and had been agitated earlier, was not really following commands, but had some spontaneous movements to all her extremities. With regards to tobacco use/abuse history, unfortunately that is unknown. PAST MEDICAL HISTORY: History of hypertension; diabetes; gastroesophageal reflux disease; end-stage renal disease, on dialysis Tuesdays, , Saturdays; history of arthritis; history of nephrolithiasis. She has a reported benign mass in her intestine and she has hyperlipidemia, anemia and history of transient ischemic attack. PAST SURGICAL HISTORY: She has had a cholecystectomy. She has had an appendectomy. She has had a left breast lumpectomy. She has had an AV fistula placed to the left arm for dialysis, hysterectomy. She has also had a , tonsillectomy, colostomy and colostomy repair as well as lithotripsy and hernia repair. MEDICATIONS: She was on at the time I stopped by to see her, according to the medication administration record, included the following: She was on amiodarone at 1 mg per minute, Plavix 75 mg p.o. daily, all p.o. meds will be via the feeding tube. Fentanyl drip had been ordered going at 1 mcg/kg per hour. Heparin drip was going IV 1000 units per hour and adjust per protocol, p.r.n. milk of magnesia. An ocular lubricant to both eyes q. 4 hours p.r.n. I feel she was on ReoPro. ALLERGIES: Aspirin, nature of this allergy is unknown. DIET: Obese lady, bordering on being morbidly, so acute weight loss or gain history is unknown. FAMILY AND SOCIAL HISTORY: Apparently lived in the community. Alcohol, tobacco or illicit drug use or abuse history is unknown. Family history otherwise unknown. REVIEW OF SYSTEMS: Unobtainable secondary to the patient's medical and mental condition. Since she has been here, no gross hematochezia or melena, no gross hematuria, no hematemesis, no bloody tracheal secretions and no witnessed seizures. PHYSICAL EXAMINATION: VITAL SIGNS: At presentation in the Emergency Room, she had a temperature of 97.0, pulse 108, respiratory rate 18, blood pressure 195/85, oxygen sats were 100%, I believe this was before or cardiac event. HEAD, EYES, EARS, NOSE AND THROAT: At this point, pupils are equal, round, about 2 mm, very sluggishly reactive to light. Extraocular muscle movements could not be assessed. Endotracheal tube was in place, taped at the lips around 23-24 cm. Grossly, no palpable lymph nodes in the supraclavicular or submandibular lymph node chains. No gross jugular venous distention. LUNGS: Auscultation of both lung garcia, faint bilateral rales, no wheeze. HEART: Sounds 1 and 2 were heard. They were regular in rate and rhythm at time of my evaluation. ABDOMEN: Soft, full, bowel sounds are positive, did not appear tender. EXTREMITIES: Without overt digital clubbing, cyanosis or pedal edema. NEUROLOGIC: The exam was grossly nonfocal, but she was sedated. LABORATORY DATA: From my review are as follows: White cell count 10,600, hemoglobin 12.1, hematocrit 37.7, platelets 205. INR was 1.03. Serum sodium was 128, potassium 3.2, chloride 89, bicarbonate 20, BUN was 30, creatinine was 4.9 and glucose was 226. Troponin was 0.068 at presentation. LDL cholesterol 165. AST liver function test pending. Microbiology, no studies were sent. Chest x-ray, the images pulling up. I have reviewed the radiologist's interpretation that mentions possible pneumomediastinum and pneumopericardium, cardiomegaly without CHF. ET tube in satisfactory position. I will be reviewing the films myself. ASSESSMENT AND PLAN: We have an elderly lady status post cardiac arrest and on the ventilator from an acute coronary syndrome. From a respiratory standpoint, we will keep her on full mechanical ventilatory support. She is currently on assist control mode of ventilation, tidal volume 450, set rate of 20, PEEP of 5 and 80% FIO2, O2 sats are 100% on the monitor. We will continue full AC support empirically. Oxygen will be weaned to keep sats greater than or equal to 92%-94%. Aspiration precautions and other ventilator bundles will be addressed daily. Hopefully, we can get to the point of weaning shortly with the ABG result and make further changes. From a cardiovascular standpoint, she is relatively more stable at this time, not on any vasopressors in terms of blood pressure elevation. She remains on the amiodarone drip ReoPro, IV heparin. I will defer to Cardiology otherwise, they are onto the case. From an infectious disease standpoint, no signs and symptoms of overwhelming sepsis, no acute indication for anti-infective therapy. We will follow her clinically except the condition changes. From a GI and nutritional standpoint, enteral nutrition will be the feeding modality of choice. Tube feeds are going to be started. She is going to be placed on GI prophylaxis. Aspiration precautions will be maintained. From a [employer] standpoint, the exam was grossly nonfocal. No acute indication for neuro imaging. We will follow her clinically. From renal standpoint, electrolytes have been followed and will be corrected as necessary. Nephrology is on the case and hemodialysis decisions will be up them. From a general and hospital healthcare maintenance standpoint, she says she will be placed on GI prophylaxis. She is on full anticoagulation and flu and pneumonia vaccination will be per protocol. Thank you very much for the consult, Dr. Thurman. We will follow along. We will make further recommendations as picture progresses/becomes clearer. She is critically ill on life-sustaining interventions including mechanical ventilatory support at high risk for further deterioration including . At this point, I have spent about 35-40 minutes of critical care time without overlap and excluding any procedural time that may be necessary. JOB# [id number] KRYSTA/AD NOEL
[2017-03-17 04:19] LABS: White Blood Count 20.6 K/mm3 (4.5-11.0)
[2017-03-17 04:23] LABS: BUN/Creatinine Ratio 5.57; Calcium 9.7 mg/dL (8.4-10.2); Chloride 89.5 mmol/L (98-107)
[2017-03-17 04:26] LABS: Potassium 5.3 mmol/L (3.6-5.0)
[2017-03-17 05:05] LABS: ISTAT Base Excess -3; ISTAT HCO3 22.3; ISTAT PCO2 36.6 (35-45); ISTAT PH 7.393 (7.35-7.45); ISTAT PO2 94 (80-105); ISTAT SO2 97; ISTAT TCO2 23
[2017-03-17] MEDS: TYLENOL FEEDTUBE PRN (05:08)
[2017-03-17 05:13] LABS: Basophils % (Manual) 0 % (0.0-1.8); Blastocytes % (Manual) 0 %; Eosinophils % (Manual) 0 % (0.0-4.3)
[2017-03-17 05:14] LABS: Anisocytosis 1+; Diff Status Complete
[2017-03-17] MEDS: fentaNYL DRIP Premix 2,000 MCG/100 ML BAG IV SCH ×3 (05:51→12:50)
[2017-03-17] MEDS: CORDARONE 900 MG in D5W 482 ML IV SCH (05:52)
[2017-03-17] MEDS: DIPRIVAN 10 MG/ML 1,000 MG/100 ML BOTTLE IV SCH ×2 (07:20→10:47)
--- NOTE | 2017-03-17 07:41 | Progress Note ---
Assessment and Plan Assessment and plan: 66-year-old female presents to the emergency department complaining of chest pain after dialysis. While in triage, the patient went unresponsive. Patient did receive a complete dialysis treatment today per ER records. Further history is unable to be obtained from the patient due to her clinical condition. Patient is currently intubated on mechanical ventilation. Patient reportedly was in V. fib arrest and successfully resuscitated and intubated. Patient was seen in the [facility] after undergoing stents 2 to the LAD. Patient reportedly had an uneventful hemodialysis and return home where she apparently started to have chest pain and came to the emergency room. Status post V. fib cardiac arrest. S/P cardiac cath, no ekg shift, cardiology following, amio drip and anticogaulation. Acute coronary syndrome. Patient with stent 2 to the LAD. Await full cardiac catheterization report. Sepsis- ?Aspiration Pneumonitis. Check lactate, fluids gentle considering Renal condition, Emperic antibiotic coverage. Blood clutures, no growth till date. Acute hypoxemic respiratory failure. Etiology secondary to above. Continue Full ventilatory support. Pulmonary consultation pending. Hypertension. Resume antihypertensive medications. End stage renal disease on hemodialysis. Nephrology following. Continue hemodialysis Saturday and Fridays. Hypokalemia-correct with dialysis Hyperlipidemia- Continue statin therapy Diabetes mellitus type 2. Accu-Cheks and sliding scale insulin. Morbid obesity- counselling once extubated. Anemia of CKD. Follow H&H. Transfuse as necessary. History of breast cancer. DVT/GI PROPHY The high probability of a clinically significant, sudden or life threatening deterioration of the [cardiac, pulmonary ] system(s) required my full and direct attention, intervention and personal management. The aggregate critical care time was [35] minutes. This time is in addition to time spent performing reported procedures but includes the following: [x] Data Review and interpretation [x] Patient assessment and monitoring of vital signs [x] Documentation [x] Medication orders and management History Interval history: Patient seen and examined, remains intubated Hospitalist Physical - Physical exam Narrative exam: VITAL SIGNS: Reviewed. GENERAL: The patient appeared well nourished and normally developed. Vital signs as documented. HEAD: No signs of head trauma. EYES: Pupils are equal. EARS: Hearing is intact MOUTH: ET-tube and OJ in place NECK: No adenopathy, no JVD. CHEST: Chest with diminished breath sounds bilaterally. No wheezes, rales, or rhonchi. CARDIAC: Regular rate and rhythm. S1 and S2, without murmurs, gallops, or rubs. VASCULAR: No Edema. Peripheral pulses normal and equal in all extremities. ABDOMEN: Soft, without detectable tenderness. No sign of distention. No rebound or guarding, and no masses palpated. Bowel Sounds normal. MUSCULOSKELETAL: Good range of motion of all major joints. Extremities without clubbing, cyanosis or edema. NEUROLOGIC EXAM: Sedated, intubated. PSYCHIATRIC: Mood normal. SKIN: No rash or lesions. - Constitutional Vitals: Temp Pulse Resp BP Pulse Ox 101.5 F H 86 18 134/55 99 03/17/17 04:00 03/17/17 07:20 03/17/17 07:20 03/17/17 07:20 03/17/17 07:10 General appearance: Present: no acute distress, well-nourished Results - Labs CBC & Chem 7: 03/17/17 03:42 03/17/17 03:42 Labs: Laboratory Last Values WBC 20.6 K/mm3 (4.5-11.0) H 03/17/17 03:42 RBC 4.00 M/mm3 (3.65-5.03) 03/17/17 03:42 Hgb 11.1 gm/dl (10.1-14.3) 03/17/17 03:42 Hct 34.6 % (30.3-42.9) 03/17/17 03:42 MCV 86 fl (79-97) 03/17/17 03:42 MCH 28 pg (28-32) 03/17/17 03:42 MCHC 32 % (30-34) 03/17/17 03:42 RDW 17.3 % (13.2-15.2) H 03/17/17 03:42 Plt Count 202 K/mm3 (140-440) 03/17/17 03:42 Lymph % (Auto) 33.2 % (13.4-35.0) 03/16/17 11:07 [place] % (Auto) 6.8 % (0.0-7.3) 03/16/17 11:07 Eos % (Auto) 1.7 % (0.0-4.3) 03/16/17 11:07 Baso % (Auto) 0.4 % (0.0-1.8) 03/16/17 11:07 Lymph # 3.5 K/mm3 (1.2-5.4) 03/16/17 11:07 [place] # 0.7 K/mm3 (0.0-0.8) 03/16/17 11:07 Eos # 0.2 K/mm3 (0.0-0.4) 03/16/17 11:07 Baso # 0.0 K/mm3 (0.0-0.1) 03/16/17 11:07 Add Manual Diff Complete 03/17/17 03:42 Total Counted 100 03/17/17 03:42 Seg Neutrophils % 57.9 % (40.0-70.0) 03/16/17 11:07 Seg Neuts % (Manual) 84.0 % (40.0-70.0) H 03/17/17 03:42 Band Neutrophils % 2.0 % 03/17/17 03:42 Lymphocytes % (Manual) 3.0 % (13.4-35.0) L 03/17/17 03:42 Reactive Lymphs % (Man) 0 % 03/17/17 03:42 Monocytes % (Manual) 11.0 % (0.0-7.3) H 03/17/17 03:42 Eosinophils % (Manual) 0 % (0.0-4.3) 03/17/17 03:42 Basophils % (Manual) 0 % (0.0-1.8) 03/17/17 03:42 Metamyelocytes % 0 % 03/17/17 03:42 Myelocytes % 0 % 03/17/17 03:42 Promyelocytes % 0 % 03/17/17 03:42 Blast Cells % 0 % 03/17/17 03:42 Nucleated RBC % Not Reportable 03/17/17 03:42 Seg Neutrophils # 6.1 K/mm3 (1.8-7.7) 03/16/17 11:07 Seg Neutrophils # Man 17.3 K/mm3 (1.8-7.7) H 03/17/17 03:42 Band Neutrophils # 0.4 K/mm3 03/17/17 03:42 Lymphocytes # (Manual) 0.6 K/mm3 (1.2-5.4) L 03/17/17 03:42 Abs React Lymphs (Man) 0.0 K/mm3 03/17/17 03:42 Monocytes # (Manual) 2.3 K/mm3 (0.0-0.8) H 03/17/17 03:42 Eosinophils # (Manual) 0.0 K/mm3 (0.0-0.4) 03/17/17 03:42 Basophils # (Manual) 0.0 K/mm3 (0.0-0.1) 03/17/17 03:42 Metamyelocytes # 0.0 K/mm3 03/17/17 03:42 Myelocytes # 0.0 K/mm3 03/17/17 03:42 Promyelocytes # 0.0 K/mm3 03/17/17 03:42 Blast Cells # 0.0 K/mm3 03/17/17 03:42 WBC Morphology Not Reportable 03/17/17 03:42 Hypersegmented Neuts Not Reportable 03/17/17 03:42 Hyposegmented Neuts Not Reportable 03/17/17 03:42 Hypogranular Neuts Not Reportable 03/17/17 03:42 Smudge Cells Not Reportable 03/17/17 03:42 Toxic Granulation Not Reportable 03/17/17 03:42 Toxic Vacuolation Not Reportable 03/17/17 03:42 Dohle Bodies Not Reportable 03/17/17 03:42 Pelger-Huet Anomaly Not Reportable 03/17/17 03:42 Tunde Rods Not Reportable 03/17/17 03:42 Platelet Estimate Appears normal 03/17/17 03:42 Clumped Platelets Not Reportable 03/17/17 03:42 Plt Clumps, EDTA Not Reportable 03/17/17 03:42 Large Platelets Not Reportable 03/17/17 03:42 Giant Platelets Not Reportable 03/17/17 03:42 Platelet Satelliting Not Reportable 03/17/17 03:42 Plt Morphology Comment Not Reportable 03/17/17 03:42 RBC Morphology Not Reportable 03/17/17 03:42 Dimorphic RBCs Not Reportable 03/17/17 03:42 Polychromasia Not Reportable 03/17/17 03:42 Hypochromasia Not Reportable 03/17/17 03:42 Poikilocytosis Not Reportable 03/17/17 03:42 Anisocytosis 1+ 03/17/17 03:42 Microcytosis Not Reportable 03/17/17 03:42 Macrocytosis Not Reportable 03/17/17 03:42 Spherocytes Not Reportable 03/17/17 03:42 Pappenheimer Bodies Not Reportable 03/17/17 03:42 Sickle Cells Not Reportable 03/17/17 03:42 Target Cells Not Reportable 03/17/17 03:42 Tear Drop Cells Not Reportable 03/17/17 03:42 Ovalocytes Not Reportable 03/17/17 03:42 Helmet Cells Not Reportable 03/17/17 03:42 [place] Bodies Not Reportable 03/17/17 03:42 [place] Rings Not Reportable 03/17/17 03:42 [place] Cells Not Reportable 03/17/17 03:42 Bite Cells Not Reportable 03/17/17 03:42 Crenated Cell Not Reportable 03/17/17 03:42 Elliptocytes Not Reportable 03/17/17 03:42 Acanthocytes (Spur) Not Reportable 03/17/17 03:42 Rouleaux Not Reportable 03/17/17 03:42 Hemoglobin C Crystals Not Reportable 03/17/17 03:42 Schistocytes Not Reportable 03/17/17 03:42 Malaria parasites Not Reportable 03/17/17 03:42 [place]lon Bodies Not Reportable 03/17/17 03:42 Hem Pathologist Commnt No 03/17/17 03:42 PT 13.4 Sec. (12.2-14.9) 03/16/17 11:07 INR 1.03 (0.87-1.13) 03/16/17 11:07 APTT 24.1 Sec. (24.2-36.6) L 03/16/17 11:07 Heparin Anti-Xa Level 0.10 U.I./ml (0.3-0.7) L 03/17/17 04:21 POC ABG pH 7.393 (7.35-7.45) 03/17/17 04:57 POC ABG pCO2 36.6 (35-45) 03/17/17 04:57 POC ABG pO2 94 (80-105) 03/17/17 04:57 POC ABG HCO3 22.3 03/17/17 04:57 POC ABG Total CO2 23 03/17/17 04:57 POC ABG O2 Sat 97 03/17/17 04:57 POC ABG Base Excess -3 03/17/17 04:57 FiO2 50 % 03/17/17 04:57 Sodium 131 mmol/L (137-145) L 03/17/17 03:42 Potassium 5.3 mmol/L (3.6-5.0) H D 03/17/17 03:42 Chloride 89.5 mmol/L (98-107) L 03/17/17 03:42 Carbon Dioxide 21 mmol/L (22-30) L 03/17/17 03:42 Anion Gap 26 mmol/L 03/17/17 03:42 BUN 39 mg/dL (7-17) H 03/17/17 03:42 Creatinine 7.0 mg/dL (0.7-1.2) H 03/17/17 03:42 Estimated GFR 7 ml/min 03/17/17 03:42 BUN/Creatinine Ratio 5.57 % 03/17/17 03:42 Glucose 151 mg/dL (65-100) H 03/17/17 03:42 Calcium 9.7 mg/dL (8.4-10.2) 03/17/17 03:42 Total Creatine Kinase 282 units/L (30-135) H 03/16/17 16:36 CK-MB (CK-2) 24.2 ng/mL (0.0-4.0) H 03/16/17 16:36 CK-MB (CK-2) Rel Index 8.5 (0-4) H 03/16/17 16:36 Troponin T 0.656 ng/mL (0.00-0.029) H* D 03/16/17 16:36 Triglycerides 134 mg/dL (2-149) 03/16/17 11:07 Cholesterol 228 mg/dL (50-199) H 03/16/17 11:07 LDL Cholesterol Direct 165 mg/dL (50-130) H 03/16/17 11:07 HDL Cholesterol 37 mg/dL (40-59) L 03/16/17 11:07 Cholesterol/HDL Ratio 6.16 % 03/16/17 11:07 Blood Type A POSITIVE 03/16/17 16:36 Antibody Screen TNR 03/16/17 16:36 CLAIR Antibody Screen Negative 03/16/17 16:36 - Imaging and Cardiology Chest x-ray: image reviewed ([facility]. )
[2017-03-17] MEDS ORDERED: SIMPLE SYRUP FEEDTUBE PRN ×2 (07:59→08:30)
[2017-03-17] MEDS ORDERED: SODIUM BICARBONATE FEEDTUBE PRN (07:59)
[2017-03-17] MEDS ORDERED: PANCREAZE DR 10,500 UNIT FEEDTUBE PRN (08:30)
[2017-03-17] MEDS ORDERED: PLAVIX PO SCH (10:00)
[2017-03-17] MEDS: INTROPIN DRIP 800 MG/D5W 250 ML 800 MG/250 ML BAG IV SCH (11:18)
--- NOTE | 2017-03-17 12:09 | Progress Note ---
Assessment and Plan This is a 66yo AAF: 1. VF arrest * s/p PCI of 90% mid-LAD (??culprit) * post-pci spasm of distal LAD resolved * temp venous pcm in place - now nsr * ecg this am: nsr, prolonged qt, no ST seg shift * lv fxn and edp nl on cath * cont low dose amio infusion * optimize e-lytes * plavix 150 daily ("sig ASA allergy") per ng tube * reopro off now * arterial sheath removed and groin stable * heparin gtt for 24 hours * dopamine gtt for hypotension * remove pcm in am id stable * f/u tte * EP c/s 2. CKD * hd 3. htn 4. febrile * per primary/intensive care 5. Prob anoxic encephelapathy (hopefully transient due to limited downtime) * recommend neuro c/s * no purposeful movement but sedated 6. vent dependant * per ICU team I had a long discussion with multiple family members regarding her overall condition and prognosis. She is post-arrest and critically ill. Will follow closely. Subjective Date of service: 03/17/17 Interval history: intubated and sedated Objective Vital Signs Temp Pulse Pulse Pulse Pulse Pulse Pulse 03/17/17 11:00 82 03/17/17 10:50 82 03/17/17 10:40 82 03/17/17 10:30 81 03/17/17 10:20 82 03/17/17 10:10 84 03/17/17 10:00 81 03/17/17 09:50 81 03/17/17 09:40 81 03/17/17 09:30 81 03/17/17 09:20 85 03/17/17 09:10 83 03/17/17 09:00 83 03/17/17 08:50 83 03/17/17 08:40 83 03/17/17 08:30 83 03/17/17 08:20 84 03/17/17 08:18 100.4 F H 03/17/17 08:10 84 03/17/17 08:00 84 03/17/17 07:50 84 03/17/17 07:46 100.3 F H 03/17/17 07:40 86 03/17/17 07:33 85 85 85 85 85 03/17/17 07:30 86 06/18/17 07:20 86 0618/17 07:10 86 1817 07:00 86 1817 06:50 85 1817 06:40 84 17 06:30 85 1817 06:20 84 1817 06:10 83 1817 06:00 83 1817 05:50 84 1817 05:40 85 1817 05:30 84 1817 05:20 83 1817 05:10 84 17 05:00 83 03/17/17 04:50 86 1817 04:40 99 H 03/17/17 04:30 96 H 03/17/17 04:20 102 H 03/17/17 04:10 81 17 04:00 101.5 F H 80 81 1817 03:50 82 1817 03:46 82 17 03:40 83 17 03:30 84 1817 03:20 84 1817 03:10 87 1817 03:00 89 1817 02:50 91 H 1817 02:40 91 H 17 02:30 92 H 03/17/17 02:20 03/17/17 02:10 90 1817 02:00 87 1817 01:50 89 1817 01:40 90 1817 01:30 89 1817 01:20 90 1817 01:10 91 H 1817 01:00 90 1817 00:50 92 H 1817 00:40 90 1817 00:30 92 H 1817 00:20 93 H 18 00:10 97 H 03/17/17 00:00 101.4 F H 88 1717 23:50 88 1717 23:40 87 1717 23:30 88 1717 23:27 88 17 23:20 89 17 23:10 89 03/16/17 23:00 89 03/16/17 22:50 89 03/16/17 22:40 90 03/16/17 22:30 89 03/16/17 22:20 91 H 03/16/17 22:10 92 H 03/16/17 22:00 92 H 03/16/17 21:50 93 H 03/16/17 21:40 94 H 03/16/17 21:30 95 H 03/16/17 21:20 96 H 03/16/17 21:10 94 H 03/16/17 21:00 94 H 03/16/17 20:50 97 H 03/16/17 20:40 100 H 03/16/17 20:30 101 H 03/16/17 20:20 101 H 03/16/17 20:10 130 H 03/16/17 20:07 109 H 03/16/17 20:00 102.4 F H 99 H 03/16/17 19:50 98 H 03/16/17 19:40 99 H 03/16/17 19:30 100 H 03/16/17 19:20 101 H 03/16/17 19:10 102 H 03/16/17 19:00 105 H 88 03/16/17 18:50 108 H 03/16/17 18:40 108 H 03/16/17 18:30 109 H 03/16/17 18:20 108 H 03/16/17 18:10 108 H 03/16/17 18:00 108 H 03/16/17 17:50 107 H 03/16/17 17:47 108 H 03/16/17 17:40 109 H 03/16/17 17:30 110 H 03/16/17 17:20 110 H 03/16/17 17:10 110 H 03/16/17 17:00 115 H 03/16/17 16:50 118 H 03/16/17 16:40 109 H 03/16/17 16:30 112 H 03/16/17 16:20 113 H 03/16/17 16:00 99.3 F 03/16/17 15:38 120 H Resp BP Pulse Ox 03/17/17 11:00 20 128/56 98 1817 10:50 20 132/54 100 1817 10:40 20 132/54 100 1817 10:30 20 132/54 100 06/18/17 10:20 13 133/58 100 06/18/17 10:10 17 133/58 79 L 06/18/17 10:00 20 133/58 99 06/18/17 09:50 20 127/55 100 06/18/17 09:40 20 127/55 100 06/18/17 09:30 20 127/55 99 06/18/17 09:20 20 136/52 99 06/18/17 09:10 20 115/51 99 06/18/17 09:00 20 127/53 99 06/18/17 08:50 20 128/52 99 06/18/17 08:40 18 113/43 99 06/18/17 08:30 20 126/50 99 06/18/17 08:20 12 125/55 99 06/18/17 08:18 06/18/17 08:10 20 125/58 99 06/18/17 08:00 20 121/55 98 06/18/17 07:50 20 125/52 99 06/18/17 07:46 06/18/17 07:40 20 124/53 99 06/18/17 07:33 20 99 06/18/17 07:30 20 130/53 99 06/18/17 07:20 18 134/55 06/18/17 07:10 19 122/57 99 06/18/17 07:00 20 130/54 99 06/18/17 06:50 20 130/56 100 06/18/17 06:40 20 125/56 100 06/18/17 06:30 20 133/54 100 06/18/17 06:20 20 127/54 100 06/18/17 06:10 20 120/54 99 06/18/17 06:00 20 116/51 99 06/18/17 05:50 15 121/50 100 06/18/17 05:40 20 119/49 98 06/18/17 05:30 20 110/51 98 06/18/17 05:20 17 85/52 97 06/18/17 05:10 20 88/42 98 06/18/17 05:00 20 90/43 97 06/18/17 04:50 17 102/43 95 06/18/17 04:40 17 131/48 99 06/18/17 04:30 20 134/57 99 06/18/17 04:20 17 90/43 99 06/18/17 04:10 20 90/43 100 /18/17 04:00 20 84/43 98 18/17 03:50 20 87/42 99 18/17 03:46 72/43 99 0618/17 03:40 20 87/42 98 18/17 03:30 20 72/43 97 18/17 03:20 20 72/43 97 18/17 03:10 19 72/42 97 18/17 03:00 20 77/42 97 18/17 02:50 20 115/50 98 18/17 02:40 17 98/52 98 18/17 02:30 11 L 120/60 82 L 1817 02:20 120/60 96 18/17 02:10 23 120/60 99 18/17 02:00 20 98/52 97 18/17 01:50 20 120/60 97 18/17 01:40 20 120/60 97 18/17 01:30 20 120/60 97 18/17 01:20 20 120/60 97 18/17 01:10 12 120/60 95 18/17 01:00 13 120/60 95 18/17 00:50 18 90/53 96 18/17 00:40 20 90/53 96 18/17 00:30 20 122/54 96 18/17 00:20 17 122/54 96 18/17 00:10 11 L 109/50 85 18/17 00:00 20 90/53 97 17 23:50 20 109/50 98 17/17 23:40 20 109/50 98 1717 23:30 20 109/50 98 17/17 23:27 109/50 98 17 23:20 20 109/50 98 1717 23:10 20 109/50 98 17 23:00 20 109/50 98 03/16/17 22:50 20 100/57 99 17/17 22:40 20 100/57 100 17/17 22:30 20 100/57 100 17 22:20 20 100/57 100 06/17/17 22:10 20 100/57 100 06/17/17 22:00 20 100/57 100 /17/17 21:50 11 L 97/53 100 /17/17 21:40 13 97/53 100 06/17/17 21:30 20 97/53 99 /17/17 21:20 20 97/53 98 06/17/17 21:10 20 97/53 98 /17/17 21:00 20 97/53 99 /17/17 20:50 20 120/64 100 06/17/17 20:40 20 120/64 100 /17/17 20:30 14 120/64 100 06/17/17 20:20 13 120/64 100 1717 20:10 22 120/64 1717 20:07 120/64 100 1717 20:00 20 120/64 100 1717 19:50 20 137/74 100 17/17 19:40 20 137/74 100 1717 19:30 21 137/74 100 1717 19:20 20 137/74 100 17/17 19:10 20 137/74 100 0617/17 19:00 22 137/74 100 17/17 18:50 14 139/73 100 1717 18:40 21 139/73 100 17/17 18:30 14 139/73 100 1717 18:20 20 139/73 100 06/17/17 18:10 17 139/73 100 1717 18:00 20 139/73 100 1717 17:50 19 145/81 99 0617/17 17:47 145/81 100 17/17 17:40 8 L 145/81 100 0617/17 17:30 15 145/81 100 17/17 17:20 12 145/81 100 0617/17 17:10 13 145/81 92 0617/17 17:00 14 145/81 100 0617/17 16:50 18 138/82 100 061717 16:40 16 06/17/17 16:30 16 138/82 17/17 16:20 18 138/82 1717 16:00 17/17 15:38 156/81 100 - Physical Examination Neck: Positive: neck supple, trachea midline. Negative: JVD/HJR, Masses - Labs and Meds Cardiac Enzymes 03/16/17 Range/Units 16:36 CK-MB (CK-2) 24.2 H (0.0-4.0) ng/mL CBC 03/17/17 Range/Units 03:42 WBC 20.6 H (4.5-11.0) K/mm3 RBC 4.00 (3.65-5.03) M/mm3 Hgb 11.1 (10.1-14.3) gm/dl Hct 34.6 (30.3-42.9) % Plt Count 202 (140-440) K/mm3 Comprehensive Metabolic Panel 03/17/17 Range/Units 03:42 Sodium 131 L (137-145) mmol/L Potassium 5.3 H D (3.6-5.0) mmol/L Chloride 89.5 L (98-107) mmol/L Carbon Dioxide 21 L (22-30) mmol/L BUN 39 H (7-17) mg/dL Creatinine 7.0 H (0.7-1.2) mg/dL Glucose 151 H (65-100) mg/dL Calcium 9.7 (8.4-10.2) mg/dL
--- NOTE | 2017-03-17 12:36 | Progress Note ---
Assessment and Plan Impression * End-stage renal disease on maintenance hemodialysis * Status post V. fib cardiac arrest * Hypertension * Diabetes * History of breast cancer * Anemia secondary to ESRD * Hyperlipidemia Recommendations * Patient is currently on a dopamine drip. Her potassium is slightly elevated at 5.3 * No urgent indication for dialysis today * AV fistula is still functional. Has a good bruit and thrill * No IV BP or venipuncture access arm * Adjust diet and meds for ESRD state * Shall follow her closely and decide about her next dialysis treatment * If she is hemodynamically stable, shall plan to dialyze her tomorrow * Her outpatient days are Tuesdays and Saturdays * Discussed with patient's son at bedside Subjective Date of service: 03/17/17 Interval history: Patient is currently in the ICU. On the ventilator. On 35% FiO2. She is also on a dopamine drip as well as amiodarone and heparin. Patient is currently sedated Objective - Vital Signs Vital signs: Vital Signs - 12hr 03/17/17 03/17/17 03/17/17 00:40 00:50 01:00 Temperature Pulse Rate 90 92 H 90 Pulse Rate [ From Monitor] Pulse Rate [ Left Dorsalis Pedis] Pulse Rate [ Left Radial] Pulse Rate [ Right Dorsalis Pedis] Pulse Rate [ Right Radial] Respiratory 20 18 13 Rate Blood Pressure 90/53 90/53 120/60 O2 Sat by Pulse 96 96 95 Oximetry 03/17/17 03/17/17 03/17/17 01:10 01:20 01:30 Temperature Pulse Rate 91 H 90 89 Pulse Rate [ From Monitor] Pulse Rate [ Left Dorsalis Pedis] Pulse Rate [ Left Radial] Pulse Rate [ Right Dorsalis Pedis] Pulse Rate [ Right Radial] Respiratory 12 20 20 Rate Blood Pressure 120/60 120/60 120/60 O2 Sat by Pulse 95 97 97 Oximetry 03/17/17 03/17/17 03/17/17 01:40 01:50 02:00 Temperature Pulse Rate 90 89 87 Pulse Rate [ From Monitor] Pulse Rate [ Left Dorsalis Pedis] Pulse Rate [ Left Radial] Pulse Rate [ Right Dorsalis Pedis] Pulse Rate [ Right Radial] Respiratory 20 20 20 Rate Blood Pressure 120/60 120/60 98/52 O2 Sat by Pulse 97 97 97 Oximetry 03/17/17 03/17/17 03/17/17 02:10 02:20 02:30 Temperature Pulse Rate 90 92 H Pulse Rate [ From Monitor] Pulse Rate [ Left Dorsalis Pedis] Pulse Rate [ Left Radial] Pulse Rate [ Right Dorsalis Pedis] Pulse Rate [ Right Radial] Respiratory 23 11 L Rate Blood Pressure 120/60 120/60 120/60 O2 Sat by Pulse 99 96 82 L Oximetry 03/17/17 03/17/17 03/17/17 02:40 02:50 03:00 Temperature Pulse Rate 91 H 91 H 89 Pulse Rate [ From Monitor] Pulse Rate [ Left Dorsalis Pedis] Pulse Rate [ Left Radial] Pulse Rate [ Right Dorsalis Pedis] Pulse Rate [ Right Radial] Respiratory 17 20 20 Rate Blood Pressure 98/52 115/50 77/42 O2 Sat by Pulse 98 98 97 Oximetry 03/17/17 03/17/17 03/17/17 03:10 03:20 03:30 Temperature Pulse Rate 87 84 84 Pulse Rate [ From Monitor] Pulse Rate [ Left Dorsalis Pedis] Pulse Rate [ Left Radial] Pulse Rate [ Right Dorsalis Pedis] Pulse Rate [ Right Radial] Respiratory 19 20 20 Rate Blood Pressure 72/42 72/43 72/43 O2 Sat by Pulse 97 97 97 Oximetry 03/17/17 03/17/17 03/17/17 03:40 03:46 03:50 Temperature Pulse Rate 83 82 82 Pulse Rate [ From Monitor] Pulse Rate [ Left Dorsalis Pedis] Pulse Rate [ Left Radial] Pulse Rate [ Right Dorsalis Pedis] Pulse Rate [ Right Radial] Respiratory 20 20 Rate Blood Pressure 87/42 72/43 87/42 O2 Sat by Pulse 98 99 99 Oximetry 03/17/17 03/17/17 03/17/17 04:00 04:10 04:20 Temperature 101.5 F H Pulse Rate 80 81 102 H Pulse Rate [ 81 From Monitor] Pulse Rate [ Left Dorsalis Pedis] Pulse Rate [ Left Radial] Pulse Rate [ Right Dorsalis Pedis] Pulse Rate [ Right Radial] Respiratory 20 20 17 Rate Blood Pressure 84/43 90/43 90/43 O2 Sat by Pulse 98 100 99 Oximetry 03/17/17 03/17/17 03/17/17 04:30 04:40 04:50 Temperature Pulse Rate 96 H 99 H 86 Pulse Rate [ From Monitor] Pulse Rate [ Left Dorsalis Pedis] Pulse Rate [ Left Radial] Pulse Rate [ Right Dorsalis Pedis] Pulse Rate [ Right Radial] Respiratory 20 17 17 Rate Blood Pressure 134/57 131/48 102/43 O2 Sat by Pulse 99 99 95 Oximetry 03/17/17 03/17/17 03/17/17 05:00 05:10 05:20 Temperature Pulse Rate 83 84 83 Pulse Rate [ From Monitor] Pulse Rate [ Left Dorsalis Pedis] Pulse Rate [ Left Radial] Pulse Rate [ Right Dorsalis Pedis] Pulse Rate [ Right Radial] Respiratory 20 20 17 Rate Blood Pressure 90/43 88/42 85/52 O2 Sat by Pulse 97 98 97 Oximetry 03/17/17 03/17/17 03/17/17 05:30 05:40 05:50 Temperature Pulse Rate 84 85 84 Pulse Rate [ From Monitor] Pulse Rate [ Left Dorsalis Pedis] Pulse Rate [ Left Radial] Pulse Rate [ Right Dorsalis Pedis] Pulse Rate [ Right Radial] Respiratory 20 20 15 Rate Blood Pressure 110/51 119/49 121/50 O2 Sat by Pulse 98 98 100 Oximetry 03/17/17 03/17/17 03/17/17 06:00 06:10 06:20 Temperature Pulse Rate 83 83 84 Pulse Rate [ From Monitor] Pulse Rate [ Left Dorsalis Pedis] Pulse Rate [ Left Radial] Pulse Rate [ Right Dorsalis Pedis] Pulse Rate [ Right Radial] Respiratory 20 20 20 Rate Blood Pressure 116/51 120/54 127/54 O2 Sat by Pulse 99 99 100 Oximetry 03/17/17 03/17/17 03/17/17 06:30 06:40 06:50 Temperature Pulse Rate 85 84 85 Pulse Rate [ From Monitor] Pulse Rate [ Left Dorsalis Pedis] Pulse Rate [ Left Radial] Pulse Rate [ Right Dorsalis Pedis] Pulse Rate [ Right Radial] Respiratory 20 20 20 Rate Blood Pressure 133/54 125/56 130/56 O2 Sat by Pulse 100 100 100 Oximetry 03/17/17 03/17/17 03/17/17 07:00 07:10 07:20 Temperature Pulse Rate 86 86 86 Pulse Rate [ From Monitor] Pulse Rate [ Left Dorsalis Pedis] Pulse Rate [ Left Radial] Pulse Rate [ Right Dorsalis Pedis] Pulse Rate [ Right Radial] Respiratory 20 19 18 Rate Blood Pressure 130/54 122/57 134/55 O2 Sat by Pulse 99 99 Oximetry 03/17/17 03/17/17 03/17/17 07:30 07:33 07:40 Temperature Pulse Rate 86 86 Pulse Rate [ 85 From Monitor] Pulse Rate [ 85 Left Dorsalis Pedis] Pulse Rate [ 85 Left Radial] Pulse Rate [ 85 Right Dorsalis Pedis] Pulse Rate [ 85 Right Radial] Respiratory 20 20 20 Rate Blood Pressure 130/53 124/53 O2 Sat by Pulse 99 99 99 Oximetry 03/17/17 03/17/17 03/17/17 07:46 07:50 08:00 Temperature 100.3 F H Pulse Rate 84 84 Pulse Rate [ From Monitor] Pulse Rate [ Left Dorsalis Pedis] Pulse Rate [ Left Radial] Pulse Rate [ Right Dorsalis Pedis] Pulse Rate [ Right Radial] Respiratory 20 20 Rate Blood Pressure 125/52 121/55 O2 Sat by Pulse 99 98 Oximetry 03/17/17 03/17/17 03/17/17 08:10 08:18 08:20 Temperature 100.4 F H Pulse Rate 84 84 Pulse Rate [ From Monitor] Pulse Rate [ Left Dorsalis Pedis] Pulse Rate [ Left Radial] Pulse Rate [ Right Dorsalis Pedis] Pulse Rate [ Right Radial] Respiratory 20 12 Rate Blood Pressure 125/58 125/55 O2 Sat by Pulse 99 99 Oximetry 03/17/17 03/17/17 03/17/17 08:30 08:40 08:50 Temperature Pulse Rate 83 83 83 Pulse Rate [ From Monitor] Pulse Rate [ Left Dorsalis Pedis] Pulse Rate [ Left Radial] Pulse Rate [ Right Dorsalis Pedis] Pulse Rate [ Right Radial] Respiratory 20 18 20 Rate Blood Pressure 126/50 113/43 128/52 O2 Sat by Pulse 99 99 99 Oximetry 03/17/17 03/17/17 03/17/17 09:00 09:10 09:20 Temperature Pulse Rate 83 83 85 Pulse Rate [ From Monitor] Pulse Rate [ Left Dorsalis Pedis] Pulse Rate [ Left Radial] Pulse Rate [ Right Dorsalis Pedis] Pulse Rate [ Right Radial] Respiratory 20 20 20 Rate Blood Pressure 127/53 115/51 136/52 O2 Sat by Pulse 99 99 99 Oximetry 03/17/17 03/17/17 03/17/17 09:30 09:40 09:50 Temperature Pulse Rate 81 81 81 Pulse Rate [ From Monitor] Pulse Rate [ Left Dorsalis Pedis] Pulse Rate [ Left Radial] Pulse Rate [ Right Dorsalis Pedis] Pulse Rate [ Right Radial] Respiratory 20 20 20 Rate Blood Pressure 127/55 127/55 127/55 O2 Sat by Pulse 99 100 100 Oximetry 03/17/17 03/17/17 03/17/17 10:00 10:10 10:20 Temperature Pulse Rate 81 84 82 Pulse Rate [ From Monitor] Pulse Rate [ Left Dorsalis Pedis] Pulse Rate [ Left Radial] Pulse Rate [ Right Dorsalis Pedis] Pulse Rate [ Right Radial] Respiratory 20 17 13 Rate Blood Pressure 133/58 133/58 133/58 O2 Sat by Pulse 99 79 L 100 Oximetry 03/17/17 03/17/17 03/17/17 10:30 10:40 10:50 Temperature Pulse Rate 81 82 82 Pulse Rate [ From Monitor] Pulse Rate [ Left Dorsalis Pedis] Pulse Rate [ Left Radial] Pulse Rate [ Right Dorsalis Pedis] Pulse Rate [ Right Radial] Respiratory 20 20 20 Rate Blood Pressure 132/54 132/54 132/54 O2 Sat by Pulse 100 100 100 Oximetry 03/17/17 03/17/17 03/17/17 11:00 12:00 12:15 Temperature 99.2 F Pulse Rate 82 85 Pulse Rate [ From Monitor] Pulse Rate [ Left Dorsalis Pedis] Pulse Rate [ Left Radial] Pulse Rate [ Right Dorsalis Pedis] Pulse Rate [ Right Radial] Respiratory 20 Rate Blood Pressure 128/56 134/61 O2 Sat by Pulse 98 100 Oximetry - General Appearance General appearance: well-developed, well-nourished, appears stated age, intubated EENT: PERRL, mucous membranes moist Neck: no JVD, no thyromegaly, no carotid bruit, supple Respiratory: Present: Clear to Ascultation Cardiology: regular, normal heart rate Gastrointestinal: normal, normoactive bowel sounds Integumentary: no rash, other (AV fistula in her left upper arm. Good bruit and thrill) - Lab 03/17/17 03:42 03/17/17 03:42 Most recent lab results Calcium 9.7 mg/dL (8.4-10.2) 03/17/17 03:42
--- NOTE | 2017-03-17 14:25 | Progress Note ---
Assessment and Plan - Patient Problems (1) Acute hypoxemic respiratory failure Current Visit: Yes Status: Acute Plan to address problem: - continue aspiration precautions / VAP bundles - continue bronchodilators and pulmonary toilet - continue to wean oxygen for sats > 94% - reduce sedation - reduce set minute ventilation - begin weaning via PSV shortly thereafter - rest on AC qhs in meantime (2) ESRD on dialysis Current Visit: Yes Status: Acute Plan to address problem: - continue HD/UF per nephrology prescription (3) Obesity (BMI 30-39.9) Current Visit: Yes Status: Acute Plan to address problem: - weight loss - outpatient sleep clinic evaluation (4) Sepsis syndrome Current Visit: Yes Status: Acute Plan to address problem: - begin empiric AB's - get ID consultation - wean dopamine for MAP > 65mmHg - get CRP, lactic acid levels and trend as necessary (5) STEMI (ST elevation myocardial infarction) Current Visit: Yes Status: Acute Qualifiers: Involved coronary artery: unspecified coronary artery Qualified Code(s): I21.3 - ST elevation (STEMI) myocardial infarction of unspecified site Plan to address problem: - on IV heparin - completed Reopro - on IV amiodarone - cardiology on case and managing (will defer otherwise) (6) Type 2 diabetes mellitus Current Visit: No Status: Chronic Qualifiers: Diabetes mellitus complication status: D Diabetes mellitus complication detail: D Diabetic retinopathy severity: D Proliferative retinopathy type: P Diabetes mellitus macular edema: D Diabetes mellitus jail insulin use : D Laterality: L Chronic kidney disease stage: C Plan to address problem: - continue SSI for glycemic control (7) Discharge planning issues Current Visit: Yes Status: Acute Plan to address problem: - hopefully can start weaning shortly ...remains critically ill on life sustaining interventions including dopamine and MVS and at high risk for further deterioration including ...34' CCT Subjective Date of service: 03/17/17 Principal diagnosis: Acute Hypoxemic Resp Failure; STEMI Interval history: Seen and examined at bedside; 24 hour events reviewed; nursing and respiratory care staff consulted; no adverse overnight events reported to me; sedated and on MVS; FiO2 down to 30%; family in room; no emesis or overt aspiration; moving all extremities and answering appropriately during earlier sedation holiday Objective Vital Signs - 12hr 03/17/17 03/17/17 03/17/17 02:30 02:40 02:50 Temperature Pulse Rate 92 H 91 H 91 H Pulse Rate [ From Monitor] Pulse Rate [ Left Dorsalis Pedis] Pulse Rate [ Left Radial] Pulse Rate [ Right Dorsalis Pedis] Pulse Rate [ Right Radial] Respiratory 11 L 17 20 Rate Blood Pressure 120/60 98/52 115/50 O2 Sat by Pulse 82 L 98 98 Oximetry 03/17/17 03/17/17 03/17/17 03:00 03:10 03:20 Temperature Pulse Rate 89 87 84 Pulse Rate [ From Monitor] Pulse Rate [ Left Dorsalis Pedis] Pulse Rate [ Left Radial] Pulse Rate [ Right Dorsalis Pedis] Pulse Rate [ Right Radial] Respiratory 20 19 20 Rate Blood Pressure 77/42 72/42 72/43 O2 Sat by Pulse 97 97 97 Oximetry 03/17/17 03/17/17 03/17/17 03:30 03:40 03:46 Temperature Pulse Rate 84 83 82 Pulse Rate [ From Monitor] Pulse Rate [ Left Dorsalis Pedis] Pulse Rate [ Left Radial] Pulse Rate [ Right Dorsalis Pedis] Pulse Rate [ Right Radial] Respiratory 20 20 Rate Blood Pressure 72/43 87/42 72/43 O2 Sat by Pulse 97 98 99 Oximetry 03/17/17 03/17/17 03/17/17 03:50 04:00 04:10 Temperature 101.5 F H Pulse Rate 82 80 81 Pulse Rate [ 81 From Monitor] Pulse Rate [ Left Dorsalis Pedis] Pulse Rate [ Left Radial] Pulse Rate [ Right Dorsalis Pedis] Pulse Rate [ Right Radial] Respiratory 20 20 20 Rate Blood Pressure 87/42 84/43 90/43 O2 Sat by Pulse 99 98 100 Oximetry 03/17/17 03/17/17 03/17/17 04:20 04:30 04:40 Temperature Pulse Rate 102 H 96 H 99 H Pulse Rate [ From Monitor] Pulse Rate [ Left Dorsalis Pedis] Pulse Rate [ Left Radial] Pulse Rate [ Right Dorsalis Pedis] Pulse Rate [ Right Radial] Respiratory 17 20 17 Rate Blood Pressure 90/43 134/57 131/48 O2 Sat by Pulse 99 99 99 Oximetry 03/17/17 03/17/17 03/17/17 04:50 05:00 05:10 Temperature Pulse Rate 86 83 84 Pulse Rate [ From Monitor] Pulse Rate [ Left Dorsalis Pedis] Pulse Rate [ Left Radial] Pulse Rate [ Right Dorsalis Pedis] Pulse Rate [ Right Radial] Respiratory 17 20 20 Rate Blood Pressure 102/43 90/43 88/42 O2 Sat by Pulse 95 97 98 Oximetry 03/17/17 03/17/17 03/17/17 05:20 05:30 05:40 Temperature Pulse Rate 83 84 85 Pulse Rate [ From Monitor] Pulse Rate [ Left Dorsalis Pedis] Pulse Rate [ Left Radial] Pulse Rate [ Right Dorsalis Pedis] Pulse Rate [ Right Radial] Respiratory 17 20 20 Rate Blood Pressure 85/52 110/51 119/49 O2 Sat by Pulse 97 98 98 Oximetry 03/17/17 03/17/17 03/17/17 05:50 06:00 06:10 Temperature Pulse Rate 84 83 83 Pulse Rate [ From Monitor] Pulse Rate [ Left Dorsalis Pedis] Pulse Rate [ Left Radial] Pulse Rate [ Right Dorsalis Pedis] Pulse Rate [ Right Radial] Respiratory 15 20 20 Rate Blood Pressure 121/50 116/51 120/54 O2 Sat by Pulse 100 99 99 Oximetry 03/17/17 03/17/17 03/17/17 06:20 06:30 06:40 Temperature Pulse Rate 84 85 84 Pulse Rate [ From Monitor] Pulse Rate [ Left Dorsalis Pedis] Pulse Rate [ Left Radial] Pulse Rate [ Right Dorsalis Pedis] Pulse Rate [ Right Radial] Respiratory 20 20 20 Rate Blood Pressure 127/54 133/54 125/56 O2 Sat by Pulse 100 100 100 Oximetry 03/17/17 03/17/17 03/17/17 06:50 07:00 07:10 Temperature Pulse Rate 85 86 86 Pulse Rate [ From Monitor] Pulse Rate [ Left Dorsalis Pedis] Pulse Rate [ Left Radial] Pulse Rate [ Right Dorsalis Pedis] Pulse Rate [ Right Radial] Respiratory 20 20 19 Rate Blood Pressure 130/56 130/54 122/57 O2 Sat by Pulse 100 99 99 Oximetry 03/17/17 03/17/17 03/17/17 07:20 07:30 07:33 Temperature Pulse Rate 86 86 Pulse Rate [ 85 From Monitor] Pulse Rate [ 85 Left Dorsalis Pedis] Pulse Rate [ 85 Left Radial] Pulse Rate [ 85 Right Dorsalis Pedis] Pulse Rate [ 85 Right Radial] Respiratory 18 20 20 Rate Blood Pressure 134/55 130/53 O2 Sat by Pulse 99 99 Oximetry 03/17/17 03/17/1717 07:40 07:46 07:50 Temperature 100.3 F H Pulse Rate 86 84 Pulse Rate [ From Monitor] Pulse Rate [ Left Dorsalis Pedis] Pulse Rate [ Left Radial] Pulse Rate [ Right Dorsalis Pedis] Pulse Rate [ Right Radial] Respiratory 20 20 Rate Blood Pressure 124/53 125/52 O2 Sat by Pulse 99 99 Oximetry 03/17/17 03/17/17 03/17/17 08:00 08:10 08:18 Temperature 100.4 F H Pulse Rate 84 84 Pulse Rate [ From Monitor] Pulse Rate [ Left Dorsalis Pedis] Pulse Rate [ Left Radial] Pulse Rate [ Right Dorsalis Pedis] Pulse Rate [ Right Radial] Respiratory 20 20 Rate Blood Pressure 121/55 125/58 O2 Sat by Pulse 98 99 Oximetry 03/17/17 03/17/17 03/17/17 08:20 08:30 08:40 Temperature Pulse Rate 84 83 83 Pulse Rate [ From Monitor] Pulse Rate [ Left Dorsalis Pedis] Pulse Rate [ Left Radial] Pulse Rate [ Right Dorsalis Pedis] Pulse Rate [ Right Radial] Respiratory 12 20 18 Rate Blood Pressure 125/55 126/50 113/43 O2 Sat by Pulse 99 99 99 Oximetry 03/17/17 03/17/17 03/17/17 08:50 09:00 09:10 Temperature Pulse Rate 83 83 83 Pulse Rate [ From Monitor] Pulse Rate [ Left Dorsalis Pedis] Pulse Rate [ Left Radial] Pulse Rate [ Right Dorsalis Pedis] Pulse Rate [ Right Radial] Respiratory 20 20 20 Rate Blood Pressure 128/52 127/53 115/51 O2 Sat by Pulse 99 99 99 Oximetry 03/17/17 03/17/17 03/17/17 09:20 09:30 09:40 Temperature Pulse Rate 85 81 81 Pulse Rate [ From Monitor] Pulse Rate [ Left Dorsalis Pedis] Pulse Rate [ Left Radial] Pulse Rate [ Right Dorsalis Pedis] Pulse Rate [ Right Radial] Respiratory 20 20 20 Rate Blood Pressure 136/52 127/55 127/55 O2 Sat by Pulse 99 99 100 Oximetry 03/17/17 03/17/17 03/17/17 09:50 10:00 10:10 Temperature Pulse Rate 81 81 84 Pulse Rate [ From Monitor] Pulse Rate [ Left Dorsalis Pedis] Pulse Rate [ Left Radial] Pulse Rate [ Right Dorsalis Pedis] Pulse Rate [ Right Radial] Respiratory 20 20 17 Rate Blood Pressure 127/55 133/58 133/58 O2 Sat by Pulse 100 99 79 L Oximetry 03/17/17 03/17/17 03/17/17 10:20 10:30 10:40 Temperature Pulse Rate 82 81 82 Pulse Rate [ From Monitor] Pulse Rate [ Left Dorsalis Pedis] Pulse Rate [ Left Radial] Pulse Rate [ Right Dorsalis Pedis] Pulse Rate [ Right Radial] Respiratory 13 20 20 Rate Blood Pressure 133/58 132/54 132/54 O2 Sat by Pulse 100 100 100 Oximetry 03/17/17 03/17/17 03/17/17 10:50 11:00 12:00 Temperature 99.2 F Pulse Rate 82 82 Pulse Rate [ From Monitor] Pulse Rate [ Left Dorsalis Pedis] Pulse Rate [ Left Radial] Pulse Rate [ Right Dorsalis Pedis] Pulse Rate [ Right Radial] Respiratory 20 20 Rate Blood Pressure 132/54 128/56 O2 Sat by Pulse 100 98 Oximetry 03/17/17 12:15 Temperature Pulse Rate 85 Pulse Rate [ From Monitor] Pulse Rate [ Left Dorsalis Pedis] Pulse Rate [ Left Radial] Pulse Rate [ Right Dorsalis Pedis] Pulse Rate [ Right Radial] Respiratory Rate Blood Pressure 134/61 O2 Sat by Pulse 100 Oximetry Constitutional: no acute distress, other (sedated) Eyes: non-icteric ENT: oropharynx moist Neck: supple, no lymphadenopathy Effort: mildly labored Ascultation: Bilateral: diminished breath sounds, rales (scant in bases) Cardiovascular: regular rate and rhythm Gastrointestinal: normoactive bowel sounds, soft, non-tender, non-distended Integumentary: normal Extremities: no cyanosis, no edema, pulses normal, no ischemia or petechiae Neurologic: unable to assess Psychiatric: other (sedated) CBC and BMP: 03/17/17 03:42 03/17/17 03:42 ABG, PT/INR, D-dimer: ABG POC ABG pH 7.393 (7.35-7.45) 03/17/17 04:57 POC ABG pCO2 36.6 (35-45) 03/17/17 04:57 POC ABG pO2 94 (80-105) 03/17/17 04:57 POC ABG HCO3 22.3 03/17/17 04:57 POC ABG Total CO2 23 03/17/17 04:57 POC ABG O2 Sat 97 03/17/17 04:57 PT/INR, D-dimer PT 13.4 Sec. (12.2-14.9) 03/16/17 11:07 INR 1.03 (0.87-1.13) 03/16/17 11:07 Abnormal lab findings: Abnormal Labs 03/16/17 03/16/17 03/17/17 16:36 18:00 03:42 WBC 20.6 H RDW 17.3 H Seg Neuts % (Manual) 84.0 H Lymphocytes % (Manual) 3.0 L Monocytes % (Manual) 11.0 H Seg Neutrophils # Man 17.3 H Lymphocytes # (Manual) 0.6 L Monocytes # (Manual) 2.3 H Heparin Anti-Xa Level POC ABG pH 7.336 L POC ABG pCO2 47.9 H POC ABG pO2 189 H Sodium Potassium Chloride Carbon Dioxide BUN Creatinine Glucose Total Creatine Kinase 282 H CK-MB (CK-2) 24.2 H CK-MB (CK-2) Rel Index 8.5 H Troponin T 0.656 H* D 03/17/17 03/17/17 03:42 04:21 WBC RDW Seg Neuts % (Manual) Lymphocytes % (Manual) Monocytes % (Manual) Seg Neutrophils # Man Lymphocytes # (Manual) Monocytes # (Manual) Heparin Anti-Xa Level 0.10 L POC ABG pH POC ABG pCO2 POC ABG pO2 Sodium 131 L Potassium 5.3 H D Chloride 89.5 L Carbon Dioxide 21 L BUN 39 H Creatinine 7.0 H Glucose 151 H Total Creatine Kinase CK-MB (CK-2) CK-MB (CK-2) Rel Index Troponin T Chest x-ray: pending
[2017-03-17] MEDS ORDERED: VANCOMYCIN/NS 1 GM/250 ML 1 GM/250 ML BAG IV ONE (16:03)
[2017-03-17] MEDS ORDERED: VANCOMYCIN 2,000 MG in NACL 0.9% 500 ML 500 ML IV ONE (16:30)
[2017-03-17] MEDS ORDERED: VANCOMYCIN PHARMACY TO DOSE IV SCH (17:00)
--- NOTE | 2017-03-17 17:02 | XRay Report ---
FINAL REPORT EXAM: XR CHEST 1V AP HISTORY: ETT position TECHNIQUE: upright single view chest PRIORS: No prior studies for comparison FINDINGS: ET tube identified. Tube is in satisfactory position. Tip of the tube approximately 3.4 centimeters above the sheldon. There is an NG tube seen distal end overlying the body of the stomach. Low lung volumes. There is some crowding of central pulmonary vasculature. No evidence for pneumothorax. No confluent pulmonary infiltrates seen. IMPRESSION: ET and NG tubes appear in satisfactory position
[2017-03-17] MEDS: DUONEB *Not for PRN Use IH SCH (19:44)
[2017-03-17 21:08] LABS: ISTAT Base Excess -2; ISTAT HCO3 23.1; ISTAT PCO2 37.6 (35-45); ISTAT PH 7.396 (7.35-7.45); ISTAT PO2 98 (80-105); ISTAT SO2 98; ISTAT TCO2 24
[2017-03-17] MEDS ORDERED: NACL 0.9% 1000 ML 1,000 ML ONE (23:40)
[2017-03-18] MEDS: fentaNYL DRIP Premix 2,000 MCG/100 ML BAG IV SCH ×4 (01:39→21:10)
[2017-03-18] MEDS: INTROPIN DRIP 800 MG/D5W 250 ML 800 MG/250 ML BAG IV SCH (01:47)
[2017-03-18] MEDS: DUONEB *Not for PRN Use IH SCH ×5 (03:43→19:58)
[2017-03-18 04:26] LABS: Basophils % (Auto) 0.4 % (0.0-1.8); Eosinophils % (Auto) 0.3 % (0.0-4.3); Hematocrit 30.9 % (30.3-42.9); Hemoglobin 10.1 gm/dl (10.1-14.3); Mean Corpuscular HGB Conc 33 % (30-34); Mean Corpuscular Hemoglobin 28 pg (28-32); Mean Corpuscular Volume 86 fl (79-97); Platelet Count 205 K/mm3 (140-440); Red Blood Count 3.59 M/mm3 (3.65-5.03); Red Cell Distribution Width 16.9 % (13.2-15.2); White Blood Count 17.6 K/mm3 (4.5-11.0)
[2017-03-18 04:45] LABS: BUN/Creatinine Ratio 6.32; Calcium 9.9 mg/dL (8.4-10.2); Chloride 87.2 mmol/L (98-107)
[2017-03-18 05:03] LABS: Potassium 6.1 mmol/L (3.6-5.0)
[2017-03-18 05:32] LABS: ISTAT Base Excess -3; ISTAT HCO3 23.3; ISTAT PCO2 48.7 (35-45); ISTAT PH 7.289 (7.35-7.45); ISTAT PO2 94 (80-105); ISTAT SO2 96; ISTAT TCO2 25
[2017-03-18] MEDS: CORDARONE 900 MG in D5W 482 ML IV SCH (08:00)
[2017-03-18] MEDS: ZOFRAN IV PRN (08:30)
--- NOTE | 2017-03-18 08:31 | Cardiac Catherization Report ---
Addendum Indication for repeat cardiac catheterization. We just completed her cardiac catheterization. Please see detailed report. Upon removing her from the table the patient developed sinus tachycardia. EKG was performed, showed some mild inferior ST elevation which is new. Thus, we rescrubbed the patient under sterile technique, exchanged out the arterial sheath under sterile technique. Angiogram was performed of the right coronary, which revealed no significant changes. She has no significant disease in the large right coronary, very small vessel disease distally. A JL4 catheter used to engage left main shows spasm of the distal LAD. The area that was stented was widely patent. Unclear of the etiology of the spasm. We used 200 mcg of nitroglycerin intracoronary. This resolved the spasm. MAT 3 flow. Interestingly the patient had MAT 3 flow throughout her coronary tree. Her ST elevation inferiorly has improved. I believe this is due to the distal LAD spasm due to the fact that it wraps around to the inferior wall. She has mild inferior ST elevation at this point despite MAT 3 flow. Unclear why that is, but she has MAT 3 flow throughout all other vessels. No further intervention is necessary. We will watch her closely. This sheath has been sutured. CONCLUSIONS: Patent mid LAD stents. Spasm of the distal LAD in the absence of any dissection. Successful treatment of spasm with intracoronary nitroglycerin with resolution and MAT 3 flow throughout the coronary tree. Partial resolution of ST elevation inferiorly. The patient is clinically stable. We will watch this moving forward. She is not a candidate for nitroglycerin drip. She is still on low-dose dopamine. She continues ____. We will follow her closely. Discussed with in the intensive care. JOB# [id number] SBChaparrita/NTS
--- NOTE | 2017-03-18 09:05 | Progress Note ---
Assessment and Plan Impression * End-stage renal disease on maintenance hemodialysis * Status post V. fib cardiac arrest * Hypertension * s/p PCI * Diabetes * History of breast cancer * Anemia secondary to ESRD * Hyperlipidemia Recommendations * dialysis today and qMWF and prn * low k bath with hd * uf as tolerated * AV fistula is still functional. Has a good bruit and thrill * No IV BP or venipuncture access arm * Adjust diet and meds for ESRD state * Her outpatient days are Tuesdays and Saturdays Subjective Date of service: 03/18/17 Principal diagnosis: Acute Hypoxemic Resp Failure; STEMI Interval history: resting in bed, events noted Objective - Exam Narrative Exam: General appearance: well-developed, well-nourished, appears stated age, intubated EENT: PERRL, mucous membranes moist Neck: no JVD, no thyromegaly, no carotid bruit, supple Respiratory: Present: Clear to Ascultation Cardiology: regular, normal heart rate Gastrointestinal: normal, normoactive bowel sounds Integumentary: no rash, other (AV fistula in her left upper arm. Good bruit and thrill) - Vital Signs Vital signs: Vital Signs - 12hr 03/17/17 03/17/17 03/17/17 21:10 21:20 21:30 Temperature Pulse Rate 89 95 H 92 H Pulse Rate [ Anterior Bilateral Throughout] Respiratory 14 17 12 Rate Respiratory Rate [Anterior Bilateral Throughout] Blood Pressure 125/63 125/63 123/52 O2 Sat by Pulse 95 96 93 Oximetry 03/17/17 03/17/17 03/17/17 21:40 21:50 22:00 Temperature Pulse Rate 88 86 83 Pulse Rate [ Anterior Bilateral Throughout] Respiratory 12 11 L 11 L Rate Respiratory Rate [Anterior Bilateral Throughout] Blood Pressure 123/52 123/52 123/52 O2 Sat by Pulse 95 96 97 Oximetry 03/17/17 03/17/17 03/17/17 22:10 22:20 22:30 Temperature Pulse Rate 82 82 81 Pulse Rate [ Anterior Bilateral Throughout] Respiratory 11 L 8 L 12 Rate Respiratory Rate [Anterior Bilateral Throughout] Blood Pressure 97/40 97/40 109/45 O2 Sat by Pulse 96 96 95 Oximetry 03/17/17 03/17/17 03/17/17 22:40 22:50 23:00 Temperature Pulse Rate 80 80 82 Pulse Rate [ Anterior Bilateral Throughout] Respiratory 12 13 12 Rate Respiratory Rate [Anterior Bilateral Throughout] Blood Pressure 109/45 109/45 108/45 O2 Sat by Pulse 96 96 96 Oximetry 03/17/17 03/17/17 03/17/17 23:10 23:20 23:30 Temperature Pulse Rate 83 78 78 Pulse Rate [ Anterior Bilateral Throughout] Respiratory 14 12 12 Rate Respiratory Rate [Anterior Bilateral Throughout] Blood Pressure 108/45 108/45 107/47 O2 Sat by Pulse 97 96 Oximetry 03/17/17 03/17/17 03/17/17 23:40 23:47 23:50 Temperature Pulse Rate 84 84 84 Pulse Rate [ Anterior Bilateral Throughout] Respiratory 12 12 Rate Respiratory Rate [Anterior Bilateral Throughout] Blood Pressure 107/47 107/47 107/47 O2 Sat by Pulse 96 96 98 Oximetry 03/18/17 03/18/17 03/18/17 00:00 00:10 00:20 Temperature 100.1 F H Pulse Rate 86 84 86 Pulse Rate [ Anterior Bilateral Throughout] Respiratory 14 12 12 Rate Respiratory Rate [Anterior Bilateral Throughout] Blood Pressure 107/47 106/43 106/43 O2 Sat by Pulse 96 97 95 Oximetry 03/18/17 03/18/17 03/18/17 00:30 00:40 00:50 Temperature Pulse Rate 85 85 85 Pulse Rate [ Anterior Bilateral Throughout] Respiratory 12 12 12 Rate Respiratory Rate [Anterior Bilateral Throughout] Blood Pressure 112/49 112/49 112/49 O2 Sat by Pulse 97 98 97 Oximetry 03/18/17 03/18/17 03/18/17 01:00 01:10 01:20 Temperature Pulse Rate 81 80 80 Pulse Rate [ Anterior Bilateral Throughout] Respiratory 11 L 12 12 Rate Respiratory Rate [Anterior Bilateral Throughout] Blood Pressure 96/43 96/43 96/43 O2 Sat by Pulse 98 98 96 Oximetry 03/18/17 03/18/17 03/18/17 01:30 01:40 01:50 Temperature Pulse Rate 95 H 87 85 Pulse Rate [ Anterior Bilateral Throughout] Respiratory 12 12 11 L Rate Respiratory Rate [Anterior Bilateral Throughout] Blood Pressure 112/52 112/52 112/52 O2 Sat by Pulse 94 97 96 Oximetry 03/18/17 03/18/17 03/18/17 02:00 02:10 02:20 Temperature Pulse Rate 96 H 92 H 90 Pulse Rate [ Anterior Bilateral Throughout] Respiratory 12 12 12 Rate Respiratory Rate [Anterior Bilateral Throughout] Blood Pressure 112/52 163/77 115/46 O2 Sat by Pulse 95 97 95 Oximetry 03/18/17 03/18/17 03/18/17 02:30 02:40 02:50 Temperature Pulse Rate 89 89 89 Pulse Rate [ Anterior Bilateral Throughout] Respiratory 12 12 12 Rate Respiratory Rate [Anterior Bilateral Throughout] Blood Pressure 116/51 116/51 115/46 O2 Sat by Pulse 97 97 96 Oximetry 03/18/17 03/18/17 03/18/17 03:00 03:10 03:20 Temperature Pulse Rate 87 88 86 Pulse Rate [ Anterior Bilateral Throughout] Respiratory 12 11 L 11 L Rate Respiratory Rate [Anterior Bilateral Throughout] Blood Pressure 116/48 116/48 116/48 O2 Sat by Pulse 97 98 96 Oximetry 03/18/17 03/18/17 03/18/17 03:30 03:40 03:43 Temperature Pulse Rate 91 H 90 Pulse Rate [ 91 H Anterior Bilateral Throughout] Respiratory 13 15 Rate Respiratory 13 Rate [Anterior Bilateral Throughout] Blood Pressure 116/48 137/53 O2 Sat by Pulse 97 98 Oximetry 03/18/17 03/18/17 03/18/17 03:50 04:00 04:10 Temperature 99.8 F H Pulse Rate 85 86 88 Pulse Rate [ Anterior Bilateral Throughout] Respiratory 12 12 15 Rate Respiratory Rate [Anterior Bilateral Throughout] Blood Pressure 137/53 137/53 98/46 O2 Sat by Pulse 96 97 90 Oximetry 03/18/17 03/18/17 03/18/17 04:20 04:30 04:40 Temperature Pulse Rate 83 86 83 Pulse Rate [ Anterior Bilateral Throughout] Respiratory 11 L 14 12 Rate Respiratory Rate [Anterior Bilateral Throughout] Blood Pressure 98/46 98/46 111/51 O2 Sat by Pulse 96 97 96 Oximetry 03/18/17 03/18/17 03/18/17 04:50 05:00 08:12 Temperature 100.2 F H Pulse Rate 83 82 Pulse Rate [ Anterior Bilateral Throughout] Respiratory 12 12 Rate Respiratory Rate [Anterior Bilateral Throughout] Blood Pressure 111/51 122/56 O2 Sat by Pulse 97 96 Oximetry - Lab 03/18/17 03:33 03/18/17 03:33 Most recent lab results Calcium 9.9 mg/dL (8.4-10.2) 03/18/17 03:33
--- NOTE | 2017-03-18 09:10 | Progress Note ---
Assessment and Plan Assessment and plan: 66-year-old female presents to the emergency department complaining of chest pain after dialysis. While in triage, the patient went unresponsive. Patient did receive a complete dialysis treatment today per ER records. Further history is unable to be obtained from the patient due to her clinical condition. Patient is currently intubated on mechanical ventilation. Patient reportedly was in V. fib arrest and successfully resuscitated and intubated. Patient Proceeded to the medical lab tech instructor which reveale patent STENTS. Patient reportedly had an uneventful hemodialysis and return home where she apparently started to have chest pain and came to the emergency room. Status post V. fib cardiac arrest. S/P cardiac cath, no ekg shift, cardiology following, amio drip and anticogaulation. EP eval Nausea/Vomiting- Start on zofran, ?seizure- Neurology consult, Propofol restarted, ?downtime during arrest, Acute coronary syndrome. Patient with stent 2 in the LAD and noted to be patent. Sepsis- ?Aspiration Pneumonitis. Check lactate, fluids gentle considering Renal condition, Emperic antibiotic coverage. Blood clutures, no growth till date. Acute hypoxemic respiratory failure. Etiology secondary to above. Continue Full ventilatory support. Pulmonary consultation pending. Hypertension. Resume antihypertensive medications. End stage renal disease on hemodialysis. Nephrology following. Continue hemodialysis Saturday and Fridays. access placed by vascular Hyperkalemia-correct with dialysis Hyperlipidemia- Continue statin therapy Diabetes mellitus type 2. Accu-Cheks and sliding scale insulin. Morbid obesity- counselling once extubated. Anemia of CKD. Follow H&H. Transfuse as necessary. History of breast cancer. DVT/GI PROPHY Discussed plan with family and Site Specialist and journal box inspector The high probability of a clinically significant, sudden or life threatening deterioration of the [cardiac, pulmonary, Neurology ] system(s) required my full and direct attention, intervention and personal management. The aggregate critical care time was [35] minutes. This time is in addition to time spent performing reported procedures but includes the following: [x] Data Review and interpretation [x] Patient assessment and monitoring of vital signs [x] Documentation [x] Medication orders and management History Interval history: Patient seen and examined, remains intubated, ON WEANING down propofol, patient had multiple simutaneous jerky movements, involving the april-auricular, left upper and lower ext and often generalized. NO other adverse event reported. Hospitalist Physical - Physical exam Narrative exam: VITAL SIGNS: Reviewed. GENERAL: The patient appeared well nourished and normally developed. Vital signs as documented. HEAD: No signs of head trauma. EYES: Pupils are equal. EARS: Hearing is intact MOUTH: ET-tube and OJ in place NECK: No adenopathy, no JVD. CHEST: Chest with diminished breath sounds bilaterally. No wheezes, rales, or rhonchi. CARDIAC: Regular rate and rhythm. S1 and S2, without murmurs, gallops, or rubs. VASCULAR: No Edema. Peripheral pulses normal and equal in all extremities. ABDOMEN: Soft, without detectable tenderness. No sign of distention. No rebound or guarding, and no masses palpated. Bowel Sounds normal. MUSCULOSKELETAL: Good range of motion of all major joints. Extremities without clubbing, cyanosis or edema. NEUROLOGIC EXAM: Sedated, intubated. opens eyes at verbal stimuli, intermittent tremors. PSYCHIATRIC: INTUBATED AND sedated SKIN: No rash or lesions. - Constitutional Vitals: Temp Pulse Resp BP Pulse Ox 100.2 F H 82 12 122/56 96 03/18/17 08:12 03/18/17 05:00 03/18/17 05:00 03/18/17 05:00 03/18/17 05:00 General appearance: Present: no acute distress, well-nourished Results - Labs CBC & Chem 7: 03/18/17 03:33 03/18/17 03:33 Labs: Laboratory Last Values WBC 17.6 K/mm3 (4.5-11.0) H 03/18/17 03:33 RBC 3.59 M/mm3 (3.65-5.03) L 03/18/17 03:33 Hgb 10.1 gm/dl (10.1-14.3) 03/18/17 03:33 Hct 30.9 % (30.3-42.9) 03/18/17 03:33 MCV 86 fl (79-97) 03/18/17 03:33 MCH 28 pg (28-32) 03/18/17 03:33 MCHC 33 % (30-34) 03/18/17 03:33 RDW 16.9 % (13.2-15.2) H 03/18/17 03:33 Plt Count 205 K/mm3 (140-440) 03/18/17 03:33 Lymph % (Auto) 4.2 % (13.4-35.0) L 03/18/17 03:33 [place] % (Auto) 11.8 % (0.0-7.3) H 03/18/17 03:33 Eos % (Auto) 0.3 % (0.0-4.3) 03/18/17 03:33 Baso % (Auto) 0.4 % (0.0-1.8) 03/18/17 03:33 Lymph # 0.7 K/mm3 (1.2-5.4) L 03/18/17 03:33 [place] # 2.1 K/mm3 (0.0-0.8) H 03/18/17 03:33 Eos # 0.0 K/mm3 (0.0-0.4) 03/18/17 03:33 Baso # 0.1 K/mm3 (0.0-0.1) 03/18/17 03:33 Add Manual Diff Complete 03/17/17 03:42 Total Counted 100 03/17/17 03:42 Seg Neutrophils % 83.3 % (40.0-70.0) H 03/18/17 03:33 Seg Neuts % (Manual) 84.0 % (40.0-70.0) H 03/17/17 03:42 Band Neutrophils % 2.0 % 03/17/17 03:42 Lymphocytes % (Manual) 3.0 % (13.4-35.0) L 03/17/17 03:42 Reactive Lymphs % (Man) 0 % 03/17/17 03:42 Monocytes % (Manual) 11.0 % (0.0-7.3) H 03/17/17 03:42 Eosinophils % (Manual) 0 % (0.0-4.3) 03/17/17 03:42 Basophils % (Manual) 0 % (0.0-1.8) 03/17/17 03:42 Metamyelocytes % 0 % 03/17/17 03:42 Myelocytes % 0 % 03/17/17 03:42 Promyelocytes % 0 % 03/17/17 03:42 Blast Cells % 0 % 03/17/17 03:42 Nucleated RBC % Not Reportable 03/17/17 03:42 Seg Neutrophils # 14.7 K/mm3 (1.8-7.7) H 03/18/17 03:33 Seg Neutrophils # Man 17.3 K/mm3 (1.8-7.7) H 03/17/17 03:42 Band Neutrophils # 0.4 K/mm3 03/17/17 03:42 Lymphocytes # (Manual) 0.6 K/mm3 (1.2-5.4) L 03/17/17 03:42 Abs React Lymphs (Man) 0.0 K/mm3 03/17/17 03:42 Monocytes # (Manual) 2.3 K/mm3 (0.0-0.8) H 03/17/17 03:42 Eosinophils # (Manual) 0.0 K/mm3 (0.0-0.4) 03/17/17 03:42 Basophils # (Manual) 0.0 K/mm3 (0.0-0.1) 03/17/17 03:42 Metamyelocytes # 0.0 K/mm3 03/17/17 03:42 Myelocytes # 0.0 K/mm3 03/17/17 03:42 Promyelocytes # 0.0 K/mm3 03/17/17 03:42 Blast Cells # 0.0 K/mm3 03/17/17 03:42 WBC Morphology Not Reportable 03/17/17 03:42 Hypersegmented Neuts Not Reportable 03/17/17 03:42 Hyposegmented Neuts Not Reportable 03/17/17 03:42 Hypogranular Neuts Not Reportable 03/17/17 03:42 Smudge Cells Not Reportable 03/17/17 03:42 Toxic Granulation Not Reportable 03/17/17 03:42 Toxic Vacuolation Not Reportable 03/17/17 03:42 Dohle Bodies Not Reportable 03/17/17 03:42 Pelger-Huet Anomaly Not Reportable 03/17/17 03:42 Tunde Rods Not Reportable 03/17/17 03:42 Platelet Estimate Appears normal 03/17/17 03:42 Clumped Platelets Not Reportable 03/17/17 03:42 Plt Clumps, EDTA Not Reportable 03/17/17 03:42 Large Platelets Not Reportable 03/17/17 03:42 Giant Platelets Not Reportable 03/17/17 03:42 Platelet Satelliting Not Reportable 03/17/17 03:42 Plt Morphology Comment Not Reportable 03/17/17 03:42 RBC Morphology Not Reportable 03/17/17 03:42 Dimorphic RBCs Not Reportable 03/17/17 03:42 Polychromasia Not Reportable 03/17/17 03:42 Hypochromasia Not Reportable 03/17/17 03:42 Poikilocytosis Not Reportable 03/17/17 03:42 Anisocytosis 1+ 03/17/17 03:42 Microcytosis Not Reportable 03/17/17 03:42 Macrocytosis Not Reportable 03/17/17 03:42 Spherocytes Not Reportable 03/17/17 03:42 Pappenheimer Bodies Not Reportable 03/17/17 03:42 Sickle Cells Not Reportable 03/17/17 03:42 Target Cells Not Reportable 03/17/17 03:42 Tear Drop Cells Not Reportable 03/17/17 03:42 Ovalocytes Not Reportable 03/17/17 03:42 Helmet Cells Not Reportable 03/17/17 03:42 [place] Bodies Not Reportable 03/17/17 03:42 [place] Rings Not Reportable 03/17/17 03:42 [place] Cells Not Reportable 03/17/17 03:42 Bite Cells Not Reportable 03/17/17 03:42 Crenated Cell Not Reportable 03/17/17 03:42 Elliptocytes Not Reportable 03/17/17 03:42 Acanthocytes (Spur) Not Reportable 03/17/17 03:42 Rouleaux Not Reportable 03/17/17 03:42 Hemoglobin C Crystals Not Reportable 03/17/17 03:42 Schistocytes Not Reportable 03/17/17 03:42 Malaria parasites Not Reportable 03/17/17 03:42 [place] Bodies Not Reportable 03/17/17 03:42 Hem Pathologist Commnt No 03/17/17 03:42 PT 13.4 Sec. (12.2-14.9) 03/16/17 11:07 INR 1.03 (0.87-1.13) 03/16/17 11:07 APTT 24.1 Sec. (24.2-36.6) L 03/16/17 11:07 Activated Clotting Time 125 (74-137) 03/17/17 08:23 Heparin Anti-Xa Level < 0.10 U.I./ml (0.3-0.7) L 03/17/17 21:12 POC ABG pH 7.289 (7.35-7.45) L 03/18/17 04:34 POC ABG pCO2 48.7 (35-45) H 03/18/17 04:34 POC ABG pO2 94 (80-105) 03/18/17 04:34 POC ABG HCO3 23.3 03/18/17 04:34 POC ABG Total CO2 25 03/18/17 04:34 POC ABG O2 Sat 96 03/18/17 04:34 POC ABG Base Excess -3 03/18/17 04:34 FiO2 30 % 03/18/17 04:34 Sodium 127 mmol/L (137-145) L 03/18/17 03:33 Potassium 6.1 mmol/L (3.6-5.0) H* 03/18/17 03:33 Chloride 87.2 mmol/L (98-107) L 03/18/17 03:33 Carbon Dioxide 23 mmol/L (22-30) 03/18/17 03:33 Anion Gap 23 mmol/L 03/18/17 03:33 BUN 55 mg/dL (7-17) H 03/18/17 03:33 Creatinine 8.7 mg/dL (0.7-1.2) H 03/18/17 03:33 Estimated GFR 6 ml/min 03/18/17 03:33 BUN/Creatinine Ratio 6.32 % 03/18/17 03:33 Glucose 140 mg/dL (65-100) H 03/18/17 03:33 Lactic Acid 1.40 mmol/L (0.7-2.0) 03/17/17 19:50 Calcium 9.9 mg/dL (8.4-10.2) 03/18/17 03:33 Total Creatine Kinase 282 units/L (30-135) H 03/16/17 16:36 CK-MB (CK-2) 24.2 ng/mL (0.0-4.0) H 03/16/17 16:36 CK-MB (CK-2) Rel Index 8.5 (0-4) H 03/16/17 16:36 Troponin T 0.656 ng/mL (0.00-0.029) H* D 03/16/17 16:36 C-Reactive Protein 33.90 mg/dL (0.00-1.30) H 03/17/17 17:15 Triglycerides 134 mg/dL (2-149) 03/16/17 11:07 Cholesterol 228 mg/dL (50-199) H 03/16/17 11:07 LDL Cholesterol Direct 165 mg/dL (50-130) H 03/16/17 11:07 HDL Cholesterol 37 mg/dL (40-59) L 03/16/17 11:07 Cholesterol/HDL Ratio 6.16 % 03/16/17 11:07 Blood Type A POSITIVE 03/16/17 16:36 Antibody Screen TNR 03/16/17 16:36 CLAIR Antibody Screen Negative 03/16/17 16:36
[2017-03-18] MEDS ORDERED: KIONEX PR ONE (09:15)
[2017-03-18] MEDS ORDERED: NACL 0.9% 100 ML IV PRN (09:30)
--- NOTE | 2017-03-18 10:42 | Admit Criteria Form ---
Admission Criteria Documentation: INTENSIVE CARE UNIT ADMISSION Intensive Care Admission Guidelines ( Place 'X' for any and all applicable criteria): Admission to ICU may be indicated when need is demonstrated by ANY ONE of the following (1)(2)(3)(4)(5)(6)(7)(8)(9) : [ ]I. Vital sign abnormalities, including ANY ONE of the following: [ ]a) Systolic arterial pressure less than 90 mm Hg, or 20 mm Hg below the patient's usual pressure [ ]b) Diastolic arterial pressure greater than 120 mm Hg [ ]c) Mean arterial pressure less than 70 mm Hg [A] [ ]d) Pulse less than 40 or greater than 140 beats per minute (in adult) [ ]e) Respiratory rate greater than 35 or less than 8 breaths per minute [ ]II. Laboratory findings (new), including ANY ONE of the following (10): [ ]a) Saturation of arterial oxygen less than 88% or partial pressure of oxygen less than 60 mm Hg (8.0 kPa) despite oxygen supplementation [ ]b) Rising partial pressure of carbon dioxide with respiratory acidosis [ ]c) pH less than 7.2 or greater than 7.65 [ ]d) Serum glucose greater than 800 mg/dL (44.4 mmol/L) [ ]e) Serum sodium less than 110 mEq/L (mmol/L) or greater than 160 mEq/L (mmol/L) [ ]f) Serum potassium less than 2 mEq/L (mmol/L) or greater than 7 mEq /L (mmol/L) [ ]g) Serum calcium greater than 15 mg/dL (3.75 mmol/L) [ ]h) Serum phosphorus less than 1 mg/dL (0.32 mmol/L) [ ]i) Toxic drug level or poisoning causing or likely to cause neurologic or Hemodynamic instability [ ]j) Less severe laboratory abnormalities contributing to ANY ONE of the following: [ ]i) Seizure [ ]ii) Altered mental status [ ]iii) Muscle weakness [ ]iv) Arrhythmias [ ]v) Hemodynamic instability [ ]vi) Other significant clinical manifestations [ ]III. Electrocardiogram (or cardiac monitoring) findings, including ANY ONE of the following: [ ]a) Inherently unstable or life-threatening arrhythmia (eg, sustained ventricular tachycardia, ventricular fibrillation, asystole) [ ]b) Arrhythmia causing severe hypotension (eg, bradycardia, tachycardia) [ ]c) Complete heart block causing severe hypotension [ ]d) Other findings indicative of a need for intensive care (eg , VA) [ ]IV.Physical findings, including ANY ONE of the following: [ ]a) Threatened airway [ ]b) Sudden altered mental status [ ]c) Repeated or prolonged seizures [ ]d) Coma [ ]e) New-onset anuria (urine output <0.1 mL/kg/hr over 4 h) [ ]f) Cyanosis (new) [ ]g) Cardiac tamponade [ ]h) Status post respiratory or cardiac arrest [ ]i) Severe wick (eg, partial thickness wick over more than 10% of body surface, third-degree wick) [ ]j) Findings consistent with abdominal emergency (eg, peritoneal signs) [ ]V.Imaging findings, such as dissecting aneurysm or ruptured viscus [ ].Specific intervention or monitoring needed, as indicated by ANY ONE of the following: [ ]a) New need for assisted ventilation, invasive or noninvasive(11) [ ]b) New need for intubation (eg, to protect airway) [ ]c) New tracheostomy (less than 48 hours old) [ ]d) Hourly vital signs or neurologic checks [ ]e) Pulmonary artery line monitoring needed [ ]f) Continuous arterial line monitoring needed [ ]g) Continuous IV vasoactive drugs [ ]h) Continuous IV antiarrhythmics [ ]i) Large volume IV fluid resuscitation (eg, greater than 6 L per day ) [ ]j) Large or rapid transfusion needs (eg, more than 6 units within 24 hours) [ ]k) High-risk IV treatment, such as bolus IV medicatns or mannitol infusion [ ]l) Acute cardiac pacing [ ]m) Intra-aortic balloon pump [ ]n) Ventricular assist device [ ]o) Cardioversion [ ]p) Pericardiocentesis [ ]q) Hemodialysis in unstable patient [ ]r) Continuous renal replacement therapy (eg, continuous veno-venous hemofiltration) [ ]s) Peritoneal dialysis initiation [ ]t) Emergency bronchoscopic therapy (eg, for hemoptysis) [ ]u) Emergency endoscopic therapy for bleeding [ ]v) Balloon tamponade for variceal bleeding [ ]w) Intracranial pressure monitoring or tissue oxygen monitoring [ ]x) Ventriculostomy monitoring [ ]y) Treatment of ongoing seizures [ ]z) Induced hypothermia or coma [ ]aa) Ongoing frequent testing and treatment for acute conditions, including ANY ONE of the following: [ ]i) Correction of severe metabolic acidosis/ alkalosis [ ]ii). Severe fluid overload [ ]iii) Cerebral edema [ ]iv) Monitoring or suctioning for respiratory insufficiency or acidosis [ ]v) Monitoring for active bleeding [ ]bb) Rapid desensitization for high-risk hypersensitivity reaction to required medication (eg, penicillin)(12) [ ]cc) Other need for treatment or monitoring not available outside the ICU [X]VII.Cardiology diagnoses or procedures, including ANY ONE of the following (13)(14)(15)(16)(17): [ ]a) Chest pain with ANY ONE of the following: [ ]i) Hemodynamic instability [ ]ii) Suspicion of diagnoses needing ICU care (eg, aortic dissection) [ ]iii) New unstable or symptomatic arrhythmia or ECG finding (eg, ventricular tachycardia, ventricular fibrillation, advanced heart block) [ ]iv) Syncope or near-syncope [ ]v) SBP less than 100 mm Hg [ ]vi) Pulmonary edema thought to be due to ischemia [ ]vii) New or worsening mitral regurgitation murmur, S3 , or rales [ ]b) Acute VA with complications as indicated by ANY ONE of the following: [ ]i) Persistent chest pain [ ]ii) Hemodynamic instability [ ]iii) New unstable or symptomatic arrhythmia or ECG finding (eg, ventricular tachycardia, ventricular fibrillation, advanced heart block) [ ]iv) Syncope or near-syncope [ ]v) Pulmonary edema thought to be due to ischemia [ ]vi) New or worsening mitral regurgitation murmur, S3 , or rales [ ]vii) New-onset bundle branch block [ ]viii) Hemorrhagic complication (eg, intracranial or access site bleed following thrombolysis) [ ]c) Cardiac arrhythmia or conduction defect with Hemodynamic instability [ ]d) Complication of cardiac ablation, including ANY ONE of the following(18): [ ]i) Pericardial tamponade [ ]ii) Hemodynamic instability [ ]iii) Thromboembolic stroke [ ]iv) Aortic valve injury [ ]v) Vascular injuries [ ]vi) Esophageal perforation [ ]vii) Severe arrhythmia [ ]viii) Air embolism [ ]ix) Other severe complication [ ]e) Cardiogenic shock [ ]f) Hypertensive emergency, with need for ANY ONE of the following(19): [ ]i) IV antihypertensive therapy [ ]ii) Invasive hemodynamic monitoring (eg, arterial line) [ ]g) Pericardial tamponade [ ]h) Severe heart failure, with ANY ONE of the following(15): [ ]i) Respiratory failure [ ]ii) Cardiogenic shock [ ]iii) Severe arrhythmias [ ]iv) Evidence of cardiac ischemia [ ]i Myocarditis, with ANY ONE of the following [ ]i) Hemodynamic instability [ ]ii) Respiratory failure [ ]iii) Severe arrhythmias [ ]iv) Need for cardiac assist device (eg, left ventricular assist device or extracorporeal membrane oxygenator) [X]j) Status post cardiac arrest(20) [ ]VIII. Cardiovascular Surgery diagnoses or procedures, including ANY ONE of the following.(21)(22): [ ]a) Acute aortic dissection [ ]b) Aortic surgery for ANY ONE of the following: [ ]i) Thoracic aneurysm [ ]ii) Abdominal aneurysm with ANY ONE of the following(23): [ ]1) Emergency repair [ ]2) Severe cardiopulmonary disease [ ]3) Dialysis-dependent renal failure [ ]4) Need for IV blood pressure control [ ]5) Need for ongoing ventilatory support [ ]6) Perioperative complications, including ANY ONE of the following: [ ]A. Sustained Hemodynamic instability [ ]B. Cardiac ischemia or arrhythmia [ ]C. Hypothermia (less than 35 degrees C (95 degrees F)) [ ]D. Blood transfusion greater than 3 L [ ]iii) Aortic coarctation operative excision or repair [ ]iv) Aortofemoral or aortoiliac bypass with ANY ONE of the following: [ ]1) Continued intubation [ ]2) Hemodynamic instability [ ]3) Need for IV blood pressure control [ ]4) Severe cardiopulmonary disease [ ]c) Cardiac surgery [ ]d) Carotid endarterectomy or stent placement with ANY ONE of the following: [ ]i) Blood pressure <100/60 mm Hg or >160/90 mm Hg despite 4 h of postanesthetic management [ ]ii) New or progressive neurologic defect [ ]iii) Chest pain [ ]iv) Continued intubation [ ]v) Heart failure [ ]vi) Airway compromise by hematoma or vocal cord paralysis [ ]vi) Need for IV blood pressure control [ ]e) Heart transplant [ ]f) Infrainguinal peripheral vascular surgery with ANY ONE of the following: [ ]i) Hemodynamic instability [ ]ii) Acute complications such as persistent chest pain or respiratory distress [ ]iii) Requirement for IV antiarrhythmic or vasoactive agent [ ]iv) Requirement for pulmonary artery catheter [ ]v) Severe hypertension despite 6 hours of recovery room management [ ]g) Complications of any surgery requiring ICU intervention as indicated by ANY ONE of the following(24): [ ]i) Hemodynamic instability [ ]ii) Myocardial infarction with complications (eg, severe arrhythmia, hypotension) [ ]iii) Excessive bleeding or severe coagulopathy [ ]iv) Respiratory failure [ ]v) Renal failure [ ]vi) Airway instability or obstruction [ ]vii) Neurologic deterioration [ ]viii) Infection with likelihood of sepsis syndrome or significant fluid shifts [ ]IX.Endocrinology diagnoses or procedures, including ANY ONE of the following(25)(26): [ ]a) Adrenal crisis with Hemodynamic instability(27) [ ]b) Pheochromocytoma with ANY ONE of the following(28): [ ]i) Hypertensive crisis [ ]ii) Postoperative Hemodynamic instability [ ]iii) Need for IV vasoactive therapy [ ]iv) Need for invasive arterial or central venous pressure monitoring [ ]v) Organ ischemia [ ]c) Diabetic hyperosmolar state with obtundation or coma [ ]d) Diabetic ketoacidosis with ANY ONE of the following: [ ]i) Serum pH less than 7.10 or bicarbonate level less than 10 mEq/L (mmol/L) [ ]ii) Rapidly changing electrolytes [ ]iii) Hypotension [ ]iv) Requirement for large-volume fluid resuscitation [ ]v) Respiratory insufficiency [ ]vi) Life-threatening cardiac dysrhythmias [ ]vii) Obtundation [ ]viii) Severe precipitating condition such as sepsis, stroke, or acute VA [ ]e) Severe hypoglycemia requiring continuous glucose infusion with frequent adjustment or glucagon infusion [ ]f) Hyperthyroidism associated with thyroid storm (also known as thyrotoxic crisis)(29) [ ]g) Myxedema with life-threatening neurologic, cardiovascular, electrolyte, or renal dysfunction(29) [ ]h) Diabetes insipidus that cannot be controlled with routine medication (30) [ ]X. Gastroenterology diagnoses or procedures, including ANY ONE of the following: [ ]a) Esophageal perforation(31) [ ]b) Severe caustic esophageal injury(31) [ ]c) Liver disease complications with ANY ONE of the following(32): [ ]i) Severe hepatic encephalopathy (eg, stage 3 (somnolent) or higher) [ ]ii) Type 1 hepatorenal syndrome [ ]iii) Other cirrhosis-associated causes of acute renal failure ( eg, severe hypovolemia, acute tubular necrosis, abdominal compartment syndrome) [ ]iv) Hemodynamic instability [ ]v) Respiratory insufficiency due to severe ascites [ ]vi) Sepsis due to spontaneous bacterial peritonitis [ ]d) Fulminant hepatic failure when aggressive intervention or transplant is anticipated (32) [ ]e) Gastrointestinal hemorrhage (upper or lower) with ANY ONE of the following(33)(34): [ ]i) Active ongoing bleeding [ ]ii) Transfusion requirement greater than 2 units of packed red cells [ ]iii) Bleeding ulcer or nonbleeding visible vessel seen on endoscopy [ ]iv) Bleeding ulcer, visible blood vessel, bleeding (or recently bleeding) esophageal varices seen on endoscopy [ ]v) Hypotension [ ]vi) Syncope [ ]vii) Coagulopathy [ ]viii) Hepatic cirrhosis [ ]ix) Abnormal mental status [ ]x) Unstable comorbid condition or end organ dysfunction [ ]xi) Ischemia due to poor perfusion [ ]xii) Need for hemodynamic monitoring (eg, for patients with heart failure or valvular disease) [ ]f) Severe pancreatitis indicated by ANY ONE of the following (35)(36): [ ]i) Requirement for aggressive fluid resuscitation [ ]ii) Life-threatening electrolyte abnormality [ ]iii) SBP less than 90 mm Hg [ ]iv) Persistent tachycardia greater than 120 beats per minute [ ]v) Patients at high risk of rapid deterioration, including ANY ONE of the following: [ ]1) Calculated Buchtel II score greater than 8 [ ]2) Age older than 55 years [ ]3) BMI greater than 30 [ ]4) Greater than 30% pancreatic necrosis on CT scan [ ]5) Admission hematocrit greater than 47% (0.47) [ ]vi) Organ failure as indicated by ANY ONE of the following: [ ]1) Serum creatinine greater than 1.9 mg/dL (168 micromoles/L) [ ]2) Requirement for mechanical ventilation [ ]3) Urine output less than 50 mL/hour [ ]4) Arterial partial pressure of oxygen less than 60 mm Hg (8.0 kPa) despite supplemental oxygen [ ]5) PiO2/FiO2 ratio less than 300 [ ]vii) Expanding pseudocyst [ ]viii) Infected pancreas [ ]ix) Pleural effusion [ ]x) Encephalopathy [ ]xi) Severe comorbidities [ ]XI. General Surgery diagnoses or procedures, including ANY ONE of the following (9)(24)(37): [ ]a) Acute abdominal catastrophe (eg, ischemic bowel, perforated viscus, abdominal compartment syndrome) [ ]b) Complications of any surgery requiring ICU intervention as indicated by ANY ONE of the following: [ ]i) Hemodynamic instability [ ]ii) VA with complications (eg, severe arrhythmia, hypotension) [ ]iii) Excessive bleeding or severe coagulopathy [ ]iv) Respiratory failure [ ]v) Renal failure [ ]vi) Airway instability or obstruction [ ]vii) Neurologic deterioration [ ]viii) Infection with likelihood of sepsis syndrome or significant fluid shifts [ ]c) Multiple trauma with complicating features as indicated by ANY ONE of the following(38): [ ]i) Impending acute respiratory failure due to lung contusion, unstable chest wall, aspiration, or hemorrhage [ ]ii) Facial or neck injury threatening airway patency [ ]iii) Cardiac contusion [ ]iv) Pericardial effusion [ ]v) Bronchial tear [ ]vi) Hemodynamic instability [ ]vii) Rhabdomyolisis requiring large volume IV fluid resuscitation [ ]viii)Other significant complicating feature [ ]d) Organ transplant(39)(40) [ ]e) Esophagectomy(31) [ ]f) Whipple procedure [ ]g) Preoperative or postoperative patients requiring ICU intervention, such as hemodynamic optimization, pulmonary artery monitoring, mechanical ventilation, or extensive nursing care [ ]h) Obesity surgery patients with ANY ONE of the following(41): [ ]i) ICU management needs for comorbid conditions, such as sleep apnea or airway management needs [ ]ii) Failed postoperative extubation [ ]iii) Intraoperative complications [ ]XII. Nephrology diagnoses or procedures, including acute, or acute on chronic renal insufficiency with ANY ONE of the following(44)(45): [ ]a) Life-threatening electrolyte or acid-base disorder [ ]b) Acute pulmonary edema [ ]c) Hypotension or significant volume depletion [ ]d) Hypertensive emergency [ ]e) Underlying critical illness contributing to renal failure (eg, septic shock, hepatorenal syndrome) [ ]f) Need for continuous renal replacement therapy [ ]XIII. Neurology diagnoses or procedures, including ANY ONE of the following (46)(47) [B] : [ ]a) Intracranial hypertension requiring ANY ONE of the following(49 ): [ ]i) Induced barbiturate coma [ ]ii) Pharmacologic paralysis or deep sedation and mechanical ventilation [ ]iii) Intracranial pressure or cerebral perfusion pressure monitoring [ ]iv) IV mannitol or hypertonic saline [ ]v) Frequent serum osmolality measurements [ ]b) Seizures with ANY ONE of the following(50): [ ]i) Status epilepticus [ ]ii) Airway compromise requiring or likely to require mechanical ventilation [ ]iii) Severe electrolyte abnormalities causing seizures [ ]c) Progressive acute neurologic dysfunction requiring or likely to require ANY ONE of the following: [ ]i) Mechanical ventilation [ ]ii) Intracranial pressure or cerebral perfusion pressure monitoring [ ]d) Meningitis with obtundation or respiratory insufficiency [C])(51 ) [ ]e) Stroke with ANY ONE of the following(52)(53): [ ]i) Need for observation after thrombolysis [ ]ii) Altered mental status [ ]iii) Need for mechanical ventilation [ ]iv) Elevated intracranial pressure [ ]v) Hypertensive emergency [ ]vi) High risk of progressive infarction or deterioration based on CT scan or MRI [ ]vii) Hemorrhage [ ]f) Acute coma [ ]g) Acute spontaneous intracranial hemorrhage(53)(54) [ ]h) Drug ingestion with ANY ONE of the following(56)(57): [ ]i) Hemodynamic instability [ ]ii) Respiratory depression (partial pressure of carbon dioxide >45 mm Hg (6.0 kPa), new) [ ]iii) Patient requires or is likely to require mechanical ventilation. [ ]iv) Arrhythmias [ ]v) Seizures [ ]vi) Altered mental status (Edwards coma scale score less than 12, new) [ ]vii) Significant risk for acute deterioration (eg, toxic level of hypotension or arrhythmia-producing drug) [ ]viii) Drug-induced hypothermia or hyperthermia [ ]ix) Increasing metabolic acidosis [ ]x) Severe hypoglycemia requiring glucose infusion with frequent adjustment or glucagon administration [ ]xi) Ongoing antidote administration (eg, continuous naloxone infusion, organophosphate toxicity treatment) [ ]xii) Emergency intervention need (eg, dialysis, hemoperfusion, restraints) [ ]i) Brain with preparation for organ donation [ ]j) Traumatic brain injury with ANY ONE of the following(55): [ ]i) Altered mental status (eg, new onset Lizbeth coma scale score less than 10) [ ]ii) Cerebral edema [ ]iii) Cerebral hemorrhage [ ]iv) Increased intracranial pressure [ ]XIV. Neurosurgery diagnoses or procedures, including ANY ONE of the following(49)(58)(59): [ ]a) Emergency craniotomy for tumor, hematoma, or trauma [ ]b) Elective craniotomy for posterior fossa tumor [ ]c) Elective craniotomy (supratentorial) for tumor with ANY ONE of the following: [ ]i) Postoperative neurologic deficit or impaired consciousness 6 hours after completion of procedure [ ]ii) SBP less than 110 mm Hg or greater than 180 mm Hg despite therapy [ ]iii) Extensive operative blood loss [ ]iv) High anesthesia risk (eg, [place] [employer] anesthesiologists score greater than 3 [ ]d) Craniotomy for aneurysm with ANY ONE of the following: [ ]i) Postoperative neurologic deficit or impaired consciousness 6 hours after completion of procedure [ ]ii) Preoperative Harris-Rojas grade 3 or higher [ ]iii) SBP less than 110 mm Hg or greater than 180 mm Hg despite therapy [ ]iv) Intracranial pressure monitoring [ ]e) Acute spinal cord injury [ ]f) Subarachnoid hemorrhage [ ]g) Traumatic brain injury with ANY ONE of the following: [ ]i) Acute mental status change (Edwards coma scale score less than 10) [ ]ii) CT scan showing cerebral edema or hemorrhage [ ]iii) Intracranial pressure monitoring [ ]h) Complications of any surgery requiring ICU intervention as indicated by ANY ONE of the following(60): [ ]i) Hemodynamic instability [ ]ii) VA with complications (eg, severe arrhythmia, hypotension) [ ]iii) Excessive bleeding or severe coagulopathy [ ]iv) Respiratory failure [ ] v) Renal failure [ ]vi) Airway instability or obstruction [ ]vii) Neurologic deterioration [ ]viii) Infection with likelihood of sepsis syndrome or significant fluid shifts [ ]i) Preoperative or postoperative patients requiring ICU intervention, such as hemodynamic optimization, pulmonary artery monitoring, mechanical ventilation, or extensive nursing care [ ]XV.Obstetrics and Gynecology diagnoses or procedures, including ANY ONE of the ffg. (61)(62)(63): [ ]a) Severe peripartum condition as indicated by ANY ONE of the following: [ ]i) Eclampsia [ ]ii) Hypertensive emergency [ ]iii) HELLP syndrome (hemolysis, elevated liver enzymes, and low platelet count) [ ]iv) Pulmonary edema [ ]v) Respiratory failure [ ]vi) Pulmonary embolism [ ]vii) Anaphylactoid syndrome of (amniotic fluid embolus) [ ]viii) Ovarian hyperstimulation syndrome [D] [ ]ix) Acute fatty liver of (hepatic failure) [ ]x) Complications such as placental abruption or severe hemorrhage [ ]xi) Sepsis (eg, puerperal sepsis, chorioamnionitis, septic ) [ ]xii) cardiomyopathy with severe congestive heart failure (eg, respiratory failure, cardiogenic shock) [ ]b) Ruptured ectopic [ ]c) Complications of any surgery requiring ICU intervention as indicated by ANY ONE of the following: [ ]i) Hemodynamic instability [ ]ii) VA with complications (eg, severe arrhythmia, hypotension) [ ]iii) Excessive bleeding or severe coagulopathy [ ]iv) Respiratory failure [ ]v) Renal failure [ ]vi) Airway instability or obstruction [ ]vii) Neurologic deterioration [ ]viii) Infection with likelihood of sepsis syndrome or significant fluid shifts [ ]d) Preoperative or postoperative patients requiring ICU intervention , such as hemodynamic optimization, pulmonary artery monitoring, mechanical ventilation, or extensive nursing care [ ]XVI.Ophthalmology diagnoses or procedures, including ANY ONE of the following (64): [ ]a) Complications of any surgery requiring ICU intervention, such as ANY ONE of the following: [ ]i) Hemodynamic instability [ ]ii) VA with complications (eg, severe arrhythmia, hypotension) [ ]iii) Excessive bleeding or severe coagulopathy [ ]iv) Respiratory failure [ ]v) Renal failure [ ]vi) Airway instability or obstruction [ ]vii) Neurologic deterioration [ ]viii) Infection with likelihood of sepsis syndrome or significant fluid shifts [ ]b) Preoperative or postoperative patients requiring ICU intervention , such as hemodynamic optimization, pulmonary artery monitoring, mechanical ventilation, or extensive nursing care [ ]XVII.Orthopedics diagnoses or procedures, including ANY ONE of the following [phone]): [ ]a) Complications of any surgery requiring ICU intervention as indicated by ANY ONE of the following: [ ]i) Hemodynamic instability [ ]ii) VA with complications (eg, severe arrhythmia, hypotension) [ ]iii) Excessive bleeding or severe coagulopathy [ ]iv) Respiratory failure [ ]v) Renal failure [ ]vi) Airway instability or obstruction [ ] vii) Neurologic deterioration [ ]viii) Infection with likelihood of sepsis syndrome or significant fluid shifts [ ]b) Multiple trauma with complicating features as indicated by ANY ONE of the following(38): [ ]i) Impending acute respiratory failure due to lung contusion, unstable chest wall, pneumothorax, aspiration, or hemorrhage [ ]ii) Facial or neck injury threatening airway patency [ ]iii) Cardiac contusion [ ]iv) Rhabdomyolysis requiring large volume IV fluid resuscitation [ ]v) Pericardial effusion [ ]vi) Bronchial tear [ ]vii) Hemodynamic instability [ ]viii) Other significant complicating feature [ ]c) Threatened compartment syndrome [ ]d) Severe wick with ANY ONE of the following(68)(69)(70): [ ]i) Hypotension or requirement for aggressive fluid resuscitation [ ]ii) Respiratory insufficiency with requirement for high- flow oxygen or mechanical ventilation [ ]iii) Carbon monoxide poisoning [ ]iv) Life-threatening cardiac, renal, pulmonary, or neurologic dysfunction [ ]v) High-voltage (eg, 1000 volts or more) electrical burn [ ]vi) Requirement for frequent or intensive debridement and dressing changes; examples include: [ ]1) Partial thickness wick greater than 10% of body surface [ ]2) Wick on face, hands, feet, genitalia, perineum , or major joints [ ]3) Third-degree wick [ ]4) Any burn greater than 15% of body surface area [ ]vii) Inhalation lung injury [ ]viii) Concomitant trauma or other medical condition requiring ICU care [ ]e) Preoperative or postoperative patients requiring ICU intervention , such as hemodynamic optimization, pulmonary artery monitoring, mechanical ventilation, or extensive nursing care [ ]XVIII.Otolaryngology diagnoses or procedures, including ANY ONE of the following (71)(72): [ ]a) Complications of any surgery requiring ICU intervention as indicated by ANY ONE of the following: [ ]i) Hemodynamic instability [ ]ii) VA with complications (eg, severe arrhythmia, hypotension) [ ]iii) Excessive bleeding or severe coagulopathy [ ]iv) Respiratory failure [ ]v) Renal failure [ ]vi) Airway instability or obstruction [ ]vii) Neurologic deterioration [ ]viii) Infection with likelihood of sepsis syndrome or significant fluid shifts [ ]b) Airway or hemodynamic compromise that persists after 3 hours of observation in postanesthesia care unit following nasal, palate (eg, uvulopalatopharyngoplasty or palatoplasty), or tongue surgery for sleep apnea [ ]c) Preoperative or postoperative patient requiring ICU intervention, such as hemodynamic optimization, pulmonary artery monitoring, mechanical ventilation, or extensive nursing care [ ]d) Symptomatic upper airway compromise (eg, laryngeal edema, mass) [ ]e) Other airway-compromising procedure (eg, posterior nasal packing) [ ]XIX.Thoracic Surgery and Pulmonary Disease Diagnosis or procedures, including ANY ONE of the following(6): [ ]a) Asthma with ANY ONE of the following(73)(74): [ ]i) Impending or actual respiratory arrest [ ]ii) Need for mechanical ventilation [ ]iii) Peak expiratory flow rate less than 30% of predicted or personal best [ ]iv) Peak expiratory flow rate or FEV1 less than 40% predicted after 1 hour of initial treatment [ ]v) Acidosis [ ]vi) Persistent or worsening hypoxia after initial treatment [ ]vii) Hypercapnia (eg, partial pressure of carbon dioxide greater than 43 mm Hg (5.7 kPa)) [ ]viii) Severe drowsiness, confusion, or coma [ ]ix) Requiring continuous inhaled bronchodilator [ ]b) COPD with ANY ONE of the following(75): [ ]i) Need for assisted ventilation [ ]ii) Hemodynamic instability [ ]iii) Severe dyspnea unresponsive to initial treatment [ ]iv) Change in level of consciousness [ ]v) Persistent findings despite oxygen and outpatient management, including ANY ONE of the following: [ ]1) Partial pressure of oxygen less than 40 mm Hg ( 5.3 kPa) [ ]2) Partial pressure of carbon dioxide greater than 60 mm Hg (8.0 kPa) [ ]3) pH less than 7.25 [ ]4) Worsening hypoxemia or acidosis [ ]c) Cor pulmonale with ANY ONE of the following(75)(76)(77): [ ]i) Hemodynamic instability [ ]ii) Need for IV inotropic or vasoactive agent [ ]iii) Need for invasive hemodynamic monitoring (eg, central venous, pulmonary artery, or arterial catheter) [ ]iv) Hypoxemia with partial pressure of oxygen less than 40 mm Hg (5.3 kPa) [ ]v) Worsening hypoxemia or acidosis despite oxygen therapy [ ]vi) Need for assisted ventilation [ ]vii) Need for right ventricular assist device [ ]viii) Unstable atrial tachyarrhythmia [ ]ix) Need for inhaled nitric oxide [ ]d) Aspiration pneumonia with ANY ONE of the following(78): [ ]i) Acute respiratory distress syndrome (PaO2/FiO2 ratio of 300 or less) [ ]ii) Impending or actual respiratory arrest [ ]iii) Need for invasive or noninvasive mechanical ventilation [ ]e) Pneumocystis jiroveci pneumonia with ANY ONE of the following(79): [ ]i) Impending or actual respiratory arrest [ ]ii) Hypoxia (eg, PO260 mmGh (8.0 kPa) or less despite oxygen therapy) [ ]iii) Need for invasive or noninvasive mechanical ventilation [ ]f) Pneumonia with ANY ONE of the following(80)(81)(82): [ ]i) Need for invasive or noninvasive assisted ventilation [ ]ii) Hemodynamic instability [ ]iii) Severity factors as indicated by 3 or MORE of the following: [ ]1) Respiratory rate 30 breaths per minute or greater [ ]2) PaO2/FiO2 ratio of 250 or less [ ]3) Multilobed infiltrates [ ]4) Altered mental status [ ]5) BUN 20 mg/dL (7.1 mmol/L) or greater [ ]6) WBC count less than 4000/mm3 (4 x109/L) [ ]7) Platelet count <100,000/mm3 (100 x109/L) [ ]8) Temperature less than 36 degrees C (96.8 degrees F ) [ ]9) Hypotension requiring aggressive fluid resuscitation [ ]g) Pulmonary hypertension requiring initiation of parenteral pulmonary vasodilator or trial of inhaled nitric oxide (eg, need for right heart catheterization)(76) [ ]h) Impending respiratory failure as indicated by ANY ONE of the following: [ ]i) Respiratory rate greater than 30 or partial pressure of oxygen less than 60 mm Hg (8.0 kPa) on 50% oxygen or more [ ]ii) Partial pressure of carbon dioxide greater than 45 mm Hg (6.0 kPa) with pH less than 7.35 [ ]i) Respiratory failure with ANY ONE of the following (47): [ ]i) Need for invasive or noninvasive mechanical ventilation [ ]ii) High likelihood of requiring mechanical ventilation within 24 hours [ ]iii) Observation in the first several hours immediately after extubation from mechanical ventilation [ ]iv) Need for close observation and aggressive therapy, such as suctioning, chest physiotherapy, or inhalation treatments at intervals less than 1 hour [ ]v) Pharmacologic ventilatory paralysis [ ]j) Venous thromboembolism with need for systemic or catheter- directed thrombolysis (eg, for limb-threatening thrombosis, phlegmasia cerulea dolens) (83) [ ]k) Pulmonary embolus with ANY ONE of the following(83): [ ]i) Hypotension [ ]ii) Severe hypoxia [ ]iii) Dangerous arrhythmia [ ]iv) Bleeding [ ]v) Need for systemic or catheter-directed thrombolysis [ ]l) Lobectomy or other major thoracic surgery [ ]m) Lung transplant [ ]n) Symptomatic upper airway obstruction (eg, laryngeal edema, mass) [ ]o) Massive hemoptysis [ ]p) Infection or thrombosis of an intravenous device with ANY ONE of the following(6)(84): [ ]i) Hemodynamic instability [ ]ii) Requirement for frequent hemodynamic measurements [ ]iii) Shock [ ]iv) End organ dysfunction [ ] v) Acute renal failure due to missed dialysis [ ]vi) Unstable acute complication (eg, pericardial tamponade , tension pneumothorax) [ ]q) Traumatic rib fracture or fractures with ANY ONE of the following(85): [ ]i) Injury severity score of 19 or greater [ ]ii) Respiratory insufficiency [ ]iii) Flail chest [ ]iv) Sternum fracture [ ]v) Vascular injury (eg, heart or great vessels) [ ]r) Pleural effusion with ANY ONE of the following(86): [ ]i) Respiratory insufficiency [ ]ii) Hemothorax with active ongoing bleeding [ ]iii) Hemodynamic instability [ ]iv) Unstable comorbid condition (eg, sepsis or heart failure [ ]XX. Urology diagnoses or procedures, including ANY ONE of the following ( 87)(88): [ ]a) Renal transplant [ ]b) Complications of any surgery requiring ICU intervention as indicated by ANY ONE of the following: [ ]i) Hemodynamic instability [ ]ii) VA with complications (eg, severe arrhythmia, hypotension) [ ]iii) Excessive bleeding or severe coagulopathy [ ]iv) Respiratory failure [ ]v) Renal failure [ ]vi) Airway instability or obstruction [ ]vii) Neurologic deterioration [ ]viii) Infection with likelihood of sepsis syndrome or significant fluid shifts [ ]c) Preoperative or postoperative patients requiring ICU intervention , such as hemodynamic optimization, pulmonary artery monitoring, mechanical ventilation , or extensive nursing care [ ]XXI.Infectious Disease diagnoses or procedures, with ANY ONE of the following (6)(43): [ ]a) Hemodynamic instability [ ]b) Shock [ ]c) Requirement for frequent hemodynamic measurements (eg, arterial catheter, pulmonary artery catheter) [ ]d) Sepsis or suspected sepsis with end organ dysfunction (eg, acute kidney injury, acute respiratory distress syndrome) [ ]e) Necrotizing soft tissue infection [ ] XXII.Hematology - Oncology diagnoses or procedures, including chemotherapy administration with ANY ONE of the following(42): [ ]a) Hemodynamic instability [ ]b) Tumor lysis syndrome with ANY ONE of the following : [ ]1) Acute kidney injury [ ]2) Severe electrolyte abnormality [ ]3) Cardiac dysrhythmia [ ]XXIII. Systemic conditions, including ANY ONE of the following: [ ]a) Severe electrolyte or metabolic disturbance causing or likely to cause ANY ONE of the following(10)(89)(90): [ ]i) Life-threatening cardiac dysrhythmia [ ]ii) Respiratory insufficiency [ ]iii) Altered mental status [ ]iv) Seizures [ ]v) Hemodynamic instability [ ]vi) Muscular weakness [ ]b) Environmental injuries such as hypothermia, hyperthermia, electrical injuries, or near drowning(70)(91)(92) The original [facility] content created by [employer] has been revised. The portions of the content which have been revised are identified through the use of italic text or in bold, and [facility] has neither reviewed nor approved the modified material. All other unmodified content is copyright [employer]. Please see references footnoted in the original [facility] edition 2016 Admission Criteria Met: Yes
[2017-03-18] MEDS ORDERED: PEPCID IV SCH (11:00)
[2017-03-18] MEDS: PLAVIX PO SCH ×2 (11:57)
--- NOTE | 2017-03-18 12:00 | XRay Report ---
KUB: Vomiting. The quality of the study is somewhat limited due to the patient's size. There is a nasogastric tube with tip in the distal stomach. There is an additional tube along the right paraspinous region extending to the right groin but its location and function is unclear. There is gas identified in the transverse colon but there is no significant distention. The bowel loops otherwise appear generally decompressed. No free air is evident and no obvious soft tissue mass. Impressions: Limited quality study. No definite pathology identified.
[2017-03-18] MEDS ORDERED: ATIVAN IV STA (12:18)
--- NOTE | 2017-03-18 12:25 | Progress Note ---
Assessment and Plan - Patient Problems (1) Acute hypoxemic respiratory failure Current Visit: Yes Status: Acute Plan to address problem: Aspiration precautions, HOB> 40 - VAP bundle addressed Lung protective strategies Analgesia and agitation/anxiety management VTE prophylaxis-on heparin infusion(anticoagulated) Stress ulcer prophylaxis Daily SAT/SBT unless otherwise contraindicated Enteric feeding, accuchecks with glycemic control- currently on hold secondary to vomiting Bronchodilators Adjust minute ventilation for better gas-exchange (2) Cardiac arrest due to underlying cardiac condition Current Visit: Yes Status: Acute Plan to address problem: Continue cardioprotective measures s/p 2 stents to LAD Unclear how long CPR was done prior to ROSC- patient currently appears to have encephalopathy with seizure activity. (3) Seizure Current Visit: Yes Status: Acute Plan to address problem: Get EEG Resume propofol infusion Get Neuro-imaging. Discussed with Hospitalist service at the bedside- plans to get Neurology consult (4) ESRD on dialysis Current Visit: Yes Status: Acute Plan to address problem: For HD today per renal service (5) Acute respiratory acidosis Current Visit: Yes Status: Acute Plan to address problem: Adjust minute ventilation Bronchodilators (6) Vomiting Current Visit: Yes Status: Acute Qualifiers: Vomiting type: V Vomiting Intractability: V Nausea presence: N Plan to address problem: Continue to hold tube feedings. Get abdominal imaging Start a bowel regimen and a promotility agent (7) Obesity (BMI 30-39.9) Current Visit: Yes Status: Acute Plan to address problem: Lifestyle modification after discharge Subjective Date of service: 03/18/17 Principal diagnosis: Acute Hypoxemic Resp Failure; STEMI Interval history: Seen and examined. Vitals ,labs, medications, chart reviewed. Daughter, son and at the bedside. Sedation holiday today- noticed to have falguni-facial twitching and left upper extremity twitching. No acute overnight events noted. Episodes of vomiting this morning, so tube feeding on hold Dopamine was discontinued at 850am, she continues to maintain good blood pressure. Currently on amiodarone and fentanyl infusions On mechanical ventilatory support-ETT, no patient ventilator dyssynchrony noted AC-VC 12/500/5/50% ABG-7.28/48.7/94/23.3/96% Discussed during interdisciplinary ICU rounds Objective - Exam Narrative Exam: VITAL SIGNS: Reviewed. GENERAL: The patient appeared well nourished and normally developed.Obese HEAD: No signs of head trauma, atraumatic, normocephalic, orofacial twitching. EYES: Pupils are equal and reactive to light MOUTH: ET-tube and OJ in place NECK: No adenopathy, no JVD. CHEST: Chest with diminished breath sounds bilaterally. No wheezes, rales, or rhonchi. CARDIAC: Regular rate and rhythm. S1 and S2, without murmurs, gallops, or rubs. VASCULAR: No Edema. Peripheral pulses normal and equal in all extremities. Right groin transvenous pacer with sheath Left AV-HD graft site ABDOMEN: Soft, without detectable tenderness. No sign of distention. No rebound or guarding, and no masses palpated. Bowel Sounds normal. MUSCULOSKELETAL: Moves extremities. Extremities without clubbing, cyanosis or edema. NEUROLOGIC EXAM: Sedated, intubated. opens eyes at verbal stimuli, intermittent tremors. Vital Signs - 12hr 03/18/17 03/18/17 03/18/17 00:30 00:40 00:50 Temperature Pulse Rate 85 85 85 Pulse Rate [ Anterior Bilateral Throughout] Respiratory 12 12 12 Rate Respiratory Rate [Anterior Bilateral Throughout] Blood Pressure 112/49 112/49 112/49 O2 Sat by Pulse 97 98 97 Oximetry 03/18/17 03/18/17 03/18/17 01:00 01:10 01:20 Temperature Pulse Rate 81 80 80 Pulse Rate [ Anterior Bilateral Throughout] Respiratory 11 L 12 12 Rate Respiratory Rate [Anterior Bilateral Throughout] Blood Pressure 96/43 96/43 96/43 O2 Sat by Pulse 98 98 96 Oximetry 03/18/17 03/18/17 03/18/17 01:30 01:40 01:50 Temperature Pulse Rate 95 H 87 85 Pulse Rate [ Anterior Bilateral Throughout] Respiratory 12 12 11 L Rate Respiratory Rate [Anterior Bilateral Throughout] Blood Pressure 112/52 112/52 112/52 O2 Sat by Pulse 94 97 96 Oximetry 03/18/17 03/18/17 03/18/17 02:00 02:10 02:20 Temperature Pulse Rate 96 H 92 H 90 Pulse Rate [ Anterior Bilateral Throughout] Respiratory 12 12 12 Rate Respiratory Rate [Anterior Bilateral Throughout] Blood Pressure 112/52 163/77 115/46 O2 Sat by Pulse 95 97 95 Oximetry 03/18/17 03/18/17 03/18/17 02:30 02:40 02:50 Temperature Pulse Rate 89 89 89 Pulse Rate [ Anterior Bilateral Throughout] Respiratory 12 12 12 Rate Respiratory Rate [Anterior Bilateral Throughout] Blood Pressure 116/51 116/51 115/46 O2 Sat by Pulse 97 97 96 Oximetry 03/18/17 03/18/17 03/18/17 03:00 03:10 03:20 Temperature Pulse Rate 87 88 86 Pulse Rate [ Anterior Bilateral Throughout] Respiratory 12 11 L 11 L Rate Respiratory Rate [Anterior Bilateral Throughout] Blood Pressure 116/48 116/48 116/48 O2 Sat by Pulse 97 98 96 Oximetry 03/18/17 03/18/17 03/18/17 03:30 03:40 03:43 Temperature Pulse Rate 91 H 90 Pulse Rate [ 91 H Anterior Bilateral Throughout] Respiratory 13 15 Rate Respiratory 13 Rate [Anterior Bilateral Throughout] Blood Pressure 116/48 137/53 O2 Sat by Pulse 97 98 Oximetry 03/18/17 03/18/17 03/18/17 03:50 04:00 04:10 Temperature 99.8 F H Pulse Rate 85 86 88 Pulse Rate [ Anterior Bilateral Throughout] Respiratory 12 12 15 Rate Respiratory Rate [Anterior Bilateral Throughout] Blood Pressure 137/53 137/53 98/46 O2 Sat by Pulse 96 97 90 Oximetry 03/18/17 03/18/17 03/18/17 04:20 04:30 04:40 Temperature Pulse Rate 83 86 83 Pulse Rate [ Anterior Bilateral Throughout] Respiratory 11 L 14 12 Rate Respiratory Rate [Anterior Bilateral Throughout] Blood Pressure 98/46 98/46 111/51 O2 Sat by Pulse 96 97 96 Oximetry 03/18/17 03/18/17 03/18/17 04:50 05:00 08:12 Temperature 100.2 F H Pulse Rate 83 82 Pulse Rate [ Anterior Bilateral Throughout] Respiratory 12 12 Rate Respiratory Rate [Anterior Bilateral Throughout] Blood Pressure 111/51 122/56 O2 Sat by Pulse 97 96 Oximetry 03/18/17 03/18/17 03/18/17 08:14 08:20 08:30 Temperature Pulse Rate 86 84 114 H Pulse Rate [ Anterior Bilateral Throughout] Respiratory 11 L 11 L 23 Rate Respiratory Rate [Anterior Bilateral Throughout] Blood Pressure 115/46 115/46 115/46 O2 Sat by Pulse 98 98 96 Oximetry 03/18/17 03/18/17 03/18/17 08:40 08:50 09:00 Temperature Pulse Rate 87 87 86 Pulse Rate [ Anterior Bilateral Throughout] Respiratory 20 13 12 Rate Respiratory Rate [Anterior Bilateral Throughout] Blood Pressure 202/78 128/61 175/154 O2 Sat by Pulse 100 98 96 Oximetry 03/18/17 03/18/17 03/18/17 09:10 09:20 09:30 Temperature Pulse Rate 89 87 85 Pulse Rate [ Anterior Bilateral Throughout] Respiratory 12 19 13 Rate Respiratory Rate [Anterior Bilateral Throughout] Blood Pressure 146/115 146/115 O2 Sat by Pulse 96 98 91 Oximetry 03/18/17 03/18/17 03/18/17 09:41 09:51 10:00 Temperature Pulse Rate 90 88 89 Pulse Rate [ Anterior Bilateral Throughout] Respiratory 12 15 10 L Rate Respiratory Rate [Anterior Bilateral Throughout] Blood Pressure 83/32 112/54 O2 Sat by Pulse 99 99 96 Oximetry 03/18/17 03/18/17 03/18/17 10:11 10:21 10:30 Temperature Pulse Rate 87 87 87 Pulse Rate [ Anterior Bilateral Throughout] Respiratory 11 L 13 14 Rate Respiratory Rate [Anterior Bilateral Throughout] Blood Pressure 112/54 104/55 119/49 O2 Sat by Pulse 99 99 97 Oximetry 03/18/17 03/18/17 03/18/17 10:41 10:51 11:00 Temperature Pulse Rate 83 87 88 Pulse Rate [ Anterior Bilateral Throughout] Respiratory 12 13 13 Rate Respiratory Rate [Anterior Bilateral Throughout] Blood Pressure 119/49 119/55 116/65 O2 Sat by Pulse 100 100 99 Oximetry 03/18/17 03/18/17 03/18/17 11:11 11:21 11:30 Temperature Pulse Rate 92 H 91 H 88 Pulse Rate [ Anterior Bilateral Throughout] Respiratory 14 14 17 Rate Respiratory Rate [Anterior Bilateral Throughout] Blood Pressure 116/65 120/66 120/57 O2 Sat by Pulse 100 98 100 Oximetry 03/18/17 03/18/17 03/18/17 11:41 11:42 11:51 Temperature Pulse Rate 83 83 Pulse Rate [ Anterior Bilateral Throughout] Respiratory 8 L 11 L Rate Respiratory Rate [Anterior Bilateral Throughout] Blood Pressure 120/57 120/57 94/40 O2 Sat by Pulse 100 100 99 Oximetry 03/18/17 03/18/17 12:00 12:11 Temperature Pulse Rate 85 85 Pulse Rate [ Anterior Bilateral Throughout] Respiratory 17 13 Rate Respiratory Rate [Anterior Bilateral Throughout] Blood Pressure 84/48 84/48 O2 Sat by Pulse 99 99 Oximetry Constitutional: no acute distress, other (sedated) Eyes: non-icteric ENT: oropharynx moist Neck: supple, no lymphadenopathy Effort: mildly labored Ascultation: Bilateral: diminished breath sounds, rales (scant in bases) Cardiovascular: regular rate and rhythm Gastrointestinal: normoactive bowel sounds, soft, non-tender, non-distended Integumentary: normal Extremities: no cyanosis, no edema, pulses normal, no ischemia or petechiae Neurologic: unable to assess Psychiatric: other (sedated) CBC and BMP: 03/18/17 03:33 03/18/17 22:15 ABG, PT/INR, D-dimer: ABG POC ABG pH 7.289 (7.35-7.45) L 03/18/17 04:34 POC ABG pCO2 48.7 (35-45) H 03/18/17 04:34 POC ABG pO2 94 (80-105) 03/18/17 04:34 POC ABG HCO3 23.3 03/18/17 04:34 POC ABG Total CO2 25 03/18/17 04:34 POC ABG O2 Sat 96 03/18/17 04:34 PT/INR, D-dimer PT 13.4 Sec. (12.2-14.9) 03/16/17 11:07 INR 1.03 (0.87-1.13) 03/16/17 11:07 Abnormal lab findings: Abnormal Labs 03/16/17 03/16/17 03/17/17 16:36 18:00 03:42 WBC 20.6 H RBC RDW 17.3 H Lymph % (Auto) [place] % (Auto) Lymph # [place] # Seg Neutrophils % Seg Neuts % (Manual) 84.0 H Lymphocytes % (Manual) 3.0 L Monocytes % (Manual) 11.0 H Seg Neutrophils # Seg Neutrophils # Man 17.3 H Lymphocytes # (Manual) 0.6 L Monocytes # (Manual) 2.3 H Heparin Anti-Xa Level POC ABG pH 7.336 L POC ABG pCO2 47.9 H POC ABG pO2 189 H Sodium Potassium Chloride Carbon Dioxide BUN Creatinine Glucose Total Creatine Kinase 282 H CK-MB (CK-2) 24.2 H CK-MB (CK-2) Rel Index 8.5 H Troponin T 0.656 H* D C-Reactive Protein 03/17/17 03/17/17 03/17/17 03:42 04:21 17:15 WBC RBC RDW Lymph % (Auto) [place] % (Auto) Lymph # [place] # Seg Neutrophils % Seg Neuts % (Manual) Lymphocytes % (Manual) Monocytes % (Manual) Seg Neutrophils # Seg Neutrophils # Man Lymphocytes # (Manual) Monocytes # (Manual) Heparin Anti-Xa Level 0.10 L POC ABG pH POC ABG pCO2 POC ABG pO2 Sodium 131 L Potassium 5.3 H D Chloride 89.5 L Carbon Dioxide 21 L BUN 39 H Creatinine 7.0 H Glucose 151 H Total Creatine Kinase CK-MB (CK-2) CK-MB (CK-2) Rel Index Troponin T C-Reactive Protein 33.90 H 03/17/17 03/18/17 03/18/17 21:12 03:33 03:33 WBC 17.6 H RBC 3.59 L RDW 16.9 H Lymph % (Auto) 4.2 L [place] % (Auto) 11.8 H Lymph # 0.7 L [place] # 2.1 H Seg Neutrophils % 83.3 H Seg Neuts % (Manual) Lymphocytes % (Manual) Monocytes % (Manual) Seg Neutrophils # 14.7 H Seg Neutrophils # Man Lymphocytes # (Manual) Monocytes # (Manual) Heparin Anti-Xa Level < 0.10 L POC ABG pH POC ABG pCO2 POC ABG pO2 Sodium 127 L Potassium 6.1 H* Chloride 87.2 L Carbon Dioxide BUN 55 H Creatinine 8.7 H Glucose 140 H Total Creatine Kinase CK-MB (CK-2) CK-MB (CK-2) Rel Index Troponin T C-Reactive Protein 03/18/17 04:34 WBC RBC RDW Lymph % (Auto) [place] % (Auto) Lymph # [place] # Seg Neutrophils % Seg Neuts % (Manual) Lymphocytes % (Manual) Monocytes % (Manual) Seg Neutrophils # Seg Neutrophils # Man Lymphocytes # (Manual) Monocytes # (Manual) Heparin Anti-Xa Level POC ABG pH 7.289 L POC ABG pCO2 48.7 H POC ABG pO2 Sodium Potassium Chloride Carbon Dioxide BUN Creatinine Glucose Total Creatine Kinase CK-MB (CK-2) CK-MB (CK-2) Rel Index Troponin T C-Reactive Protein ED Critical Care Note - Critical Care Note Total Time (mins): 60 Comments: Patient's care and critical nature of her condition discussed with the Hospitalist service . Patient's family updated at the bedside re care plan Critical Care Time: Yes Critical care attestation.: If time is entered above; I have spent that time in minutes in the direct care of this critically ill patient, excluding procedure time.
--- NOTE | 2017-03-18 12:31 | Progress Note ---
Assessment and Plan We will DC transvenous pacer later today if rhythm remains stable. Will initiate beta hussain therapy later today if blood pressure remains adequate. Obtain echocardiogram. DC IV amiodarone. - Patient Problems (1) Cardiac arrest Current Visit: Yes Status: Acute (2) STEMI (ST elevation myocardial infarction) Current Visit: Yes Status: Acute Qualifiers: Involved coronary artery: unspecified coronary artery Qualified Code(s): I21.3 - ST elevation (STEMI) myocardial infarction of unspecified site (3) Acute hypoxemic respiratory failure Current Visit: Yes Status: Acute (4) Hypotension Current Visit: Yes Status: Acute Qualifiers: Hypotension type: H Trimester: T (5) ESRD on dialysis Current Visit: Yes Status: Acute Subjective Date of service: 03/18/17 Principal diagnosis: Acute Hypoxemic Resp Failure; STEMI, s/p Vfib arrest Interval history: Sedated on ventilator. Dopamine was weaned off this morning. Objective Vital Signs Temp Pulse Pulse Resp Resp BP Pulse Ox 03/18/17 12:11 85 13 84/48 99 03/18/17 12:00 85 17 84/48 99 03/18/17 11:51 11 L 94/40 99 03/18/17 11:42 83 120/57 100 03/18/17 11:41 83 8 L 120/57 100 03/18/17 11:30 88 17 120/57 100 03/18/17 11:21 91 H 14 120/66 98 03/18/17 11:11 92 H 14 116/65 100 03/18/17 11:00 88 13 116/65 99 03/18/17 10:51 87 13 119/55 100 03/18/17 10:41 83 12 119/49 100 03/18/17 10:30 87 14 119/49 97 03/18/17 10:21 87 13 104/55 99 03/18/17 10:11 87 11 L 112/54 99 03/18/17 10:00 89 10 L 112/54 96 03/18/17 09:51 88 15 83/32 99 03/18/17 09:41 90 12 99 03/18/17 09:30 85 13 146/115 91 03/18/17 09:20 87 19 98 03/18/17 09:10 89 12 146/115 96 03/18/17 09:00 86 12 175/154 96 03/18/17 08:50 87 13 128/61 98 03/18/17 08:40 87 20 202/78 100 03/18/17 08:30 114 H 23 115/46 96 03/18/17 08:20 84 11 L 115/46 98 03/18/17 08:14 86 11 L 115/46 98 03/18/17 08:12 100.2 F H 03/18/17 05:00 82 12 122/56 96 03/18/17 04:50 83 12 111/51 97 03/18/17 04:40 83 12 111/51 96 03/18/17 04:30 86 14 98/46 97 03/18/17 04:20 83 11 L 98/46 96 03/18/17 04:10 88 15 98/46 90 03/18/17 04:00 99.8 F H 86 12 137/53 97 03/18/17 03:50 85 12 137/53 96 03/18/17 03:43 91 H 13 03/18/17 03:40 90 15 137/53 98 03/18/17 03:30 91 H 13 116/48 97 03/18/17 03:20 86 11 L 116/48 96 03/18/17 03:10 88 11 L 116/48 98 03/18/17 03:00 87 12 116/48 97 03/18/17 02:50 89 12 115/46 96 03/18/17 02:40 89 12 116/51 97 03/18/17 02:30 89 12 116/51 97 03/18/17 02:20 90 12 115/46 95 03/18/17 02:10 92 H 12 163/77 97 03/18/17 02:00 96 H 12 112/52 95 03/18/17 01:50 85 11 L 112/52 96 03/18/17 01:40 87 12 112/52 97 03/18/17 01:30 95 H 12 112/52 94 03/18/17 01:20 80 12 96/43 96 03/18/17 01:10 80 12 96/43 98 03/18/17 01:00 81 11 L 96/43 98 03/18/17 00:50 85 12 112/49 97 03/18/17 00:40 85 12 112/49 98 03/18/17 00:30 85 12 112/49 97 06/19/17 00:20 86 12 106/43 95 1917 00:10 84 12 106/43 97 03/18/17 00:00 100.1 F H 86 14 107/47 96 1817 23:50 84 12 107/47 98 18/17 23:47 84 107/47 96 1817 23:40 84 12 107/47 96 1817 23:30 78 12 107/47 96 1817 23:20 78 12 108/45 97 1817 23:10 83 14 108/45 18 23:00 82 12 108/45 96 18/17 22:50 80 13 109/45 96 1817 22:40 80 12 109/45 96 18/17 22:30 81 12 109/45 95 18/17 22:20 82 8 L 97/40 96 1817 22:10 82 11 L 97/40 96 1817 22:00 83 11 L 123/52 97 1817 21:50 86 11 L 123/52 96 18/17 21:40 88 12 123/52 95 18/17 21:30 92 H 12 123/52 93 1817 21:20 95 H 17 125/63 96 18/17 21:10 89 14 125/63 95 18/17 21:00 86 16 125/63 97 1817 20:50 85 15 125/63 97 18/17 20:40 88 18 125/63 97 1817 20:30 85 16 105/66 97 1817 20:20 84 15 125/63 18/17 20:10 84 19 125/63 96 18/17 20:00 85 14 125/63 99 18/17 19:54 87 89 16 16 130/59 98 18/17 19:50 86 19 130/59 99 18/17 19:45 98.9 F 18/17 19:44 82 16 1817 19:40 82 16 130/59 98 18/17 19:30 83 16 120/58 99 18/17 19:20 84 16 133/53 98 18/17 19:10 83 16 133/53 97 06/18/17 19:00 83 16 130/59 99 06/18/17 18:50 82 16 133/53 98 06/18/17 18:40 76 16 133/53 98 06/18/17 18:30 77 16 133/53 98 06/18/17 18:20 77 16 129/51 98 06/18/17 18:10 77 16 129/51 98 06/18/17 18:00 78 16 129/51 97 06/18/17 17:50 78 16 122/50 98 06/18/17 17:40 78 16 122/50 99 06/18/17 17:30 76 16 122/50 06/18/17 17:20 78 17 118/46 91 06/18/17 17:12 81 122/50 100 06/18/17 17:10 81 14 118/46 0618/17 17:00 82 11 L 140/63 06/18/17 16:50 86 16 140/63 /18/17 16:40 88 16 140/63 /18/17 16:30 93 H 12 140/63 18/17 16:20 96 H 11 L 140/63 98 /18/17 16:10 102 H 16 140/63 98 /18/17 16:00 100 F H 108 H 13 140/63 94 /18/17 15:50 98 H 14 124/57 100 /18/17 15:40 106 H 13 124/57 86 06/18/17 15:30 84 16 124/57 98 /18/17 15:20 82 16 120/50 98 /18/17 15:10 79 16 120/50 98 06/18/17 15:00 80 20 120/50 99 06/18/17 14:50 80 20 132/59 100 06/18/17 14:40 80 20 132/59 99 06/18/17 14:30 80 20 132/59 99 06/18/17 14:20 78 20 122/53 99 06/18/17 14:10 80 20 122/53 99 06/18/17 14:00 79 20 122/53 99 06/18/17 13:50 79 20 129/57 99 /18/17 13:40 84 10 L 129/57 77 L /18/17 13:30 81 20 129/57 99 06/18/17 13:20 80 18 136/58 99 03/17/17 13:10 81 20 136/58 99 03/17/17 13:00 83 20 136/58 99 03/17/17 12:50 85 20 126/57 99 03/17/17 12:40 88 20 126/57 100 03/17/17 12:30 83 20 126/57 99 - Physical Examination General: No Apparent Distress HEENT: Positive: Normocephaly, Mucus Membranes Moist Neck: Positive: neck supple, trachea midline Cardiac: Positive: Reg Rate and Rhythm, S1/S2 Lungs: Positive: Rhonchi Neuro: Positive: Other (sedated) Abdomen: Positive: Soft, Active Bowel Sounds Skin: Negative: Clear, Rash Musculoskeletal: No Fluid Collection Extremities: Present: edema (trace to mild pitting bilateral leg edema) - Labs and Meds CBC 03/18/17 Range/Units 03:33 WBC 17.6 H (4.5-11.0) K/mm3 RBC 3.59 L (3.65-5.03) M/mm3 Hgb 10.1 (10.1-14.3) gm/dl Hct 30.9 (30.3-42.9) % Plt Count 205 (140-440) K/mm3 Lymph # 0.7 L (1.2-5.4) K/mm3 [place] # 2.1 H (0.0-0.8) K/mm3 Eos # 0.0 (0.0-0.4) K/mm3 Baso # 0.1 (0.0-0.1) K/mm3 Comprehensive Metabolic Panel 03/18/17 Range/Units 03:33 Sodium 127 L (137-145) mmol/L Potassium 6.1 H* (3.6-5.0) mmol/L Chloride 87.2 L (98-107) mmol/L Carbon Dioxide 23 (22-30) mmol/L BUN 55 H (7-17) mg/dL Creatinine 8.7 H (0.7-1.2) mg/dL Glucose 140 H (65-100) mg/dL Calcium 9.9 (8.4-10.2) mg/dL - Telemetry EKG Rhythm: Sinus Rhythm
[2017-03-18] MEDS: HEPARIN SUB-Q SCH (13:17)
[2017-03-18] MEDS: REGLAN IV SCH ×2 (13:18→18:55)
[2017-03-18] MEDS: PEPCID IV SCH ×2 (13:21→21:11)
--- NOTE | 2017-03-18 15:04 | Consultation ---
History of Present Illness - Reason for Consult Consult date: 03/18/17 Sepsis Requesting physician: BERNIE PEÑA - History of Present Illness Ms. Fuentes is a 66-year-old woman with ESRD on HD who was admitted s/p a Vfib arrest. She was found to have STEMI and is presently on an Amiodarone gtt and Dopamine. She remains intubated in critical condition. Her WBC is increased to 17K with no new focal issues clinically. Blood cultures remain negative to date. The patient is oliguric/ anuric. Chest and abdominal xrays are without significant findings. ID consultation is requested for further evaluation of leukocytosis. Past History Past Medical History: cancer (breast cancer status post lumpectomy), diabetes, dialysis, hypertension, other (history of benign colonic mass) Past Surgical History: Other (history of creation of AV fistula. History of colostomy and reversal of colostomy. Left breast lumpectomy) Social history: no significant social history Family history: no significant family history Medications and Allergies Allergies Allergy/AdvReac Type Severity Reaction Status Date / Time aspirin AdvReac HEART Verified 01/23/17 16:26 FLUTTER Home Medications Medication Instructions Recorded Confirmed Last Taken Type AtorvaSTATin [Lipitor] 20 mg PO QHS 04/07/16 03/18/17 Unknown History Cholecalciferol (Vitamin D3) 10,000 unit PO 1XW 04/07/16 03/18/17 04/04/16 History [Vitamin D3] Cinacalcet HCl [Sensipar] 60 mg PO DAILY 04/07/16 03/18/17 Unknown History Glimepiride [Amaryl] 2 mg PO QDAY 04/07/16 03/18/17 Unknown History Sevelamer Carbonate [Renvela] 800 mg PO TIDWM 04/07/16 03/18/17 Unknown History Clopidogrel [Plavix] 75 mg PO QDAY #30 tablet 04/09/16 03/18/17 Unknown Rx Hydrochlorothiazide [Hctz] 12.5 mg PO QDAY #30 capsule 04/09/16 03/18/17 Unknown Rx Pantoprazole [Protonix TAB] 20 mg PO QDAY #30 tablet. 04/09/16 03/18/17 Unknown Rx Tamsulosin [Flomax] 0.4 mg PO QDAY #30 cap 04/09/16 Unknown Rx amLODIPine [Norvasc] 10 mg PO DAILY #30 tab 04/09/16 03/18/17 Unknown Rx Cyclobenzaprine HCl [Flexeril 5 MG 5 mg PO Q8HR PRN #15 tab 01/24/17 03/18/17 Unknown Rx TAB] Active Meds: Active Medications Acetaminophen (Tylenol) 650 mg FEEDTUBE Q6H PRN PRN Reason: Fever >101 Last Admin: 03/17/17 05:08 Dose: 650 mg Al Hydrox/Mg Hydrox/Simethicone (Alum-Mag Hydrox-Simeth [id number]) 30 ml PO Q4H PRN PRN Reason: Indigestion Albuterol/Ipratropium (Duoneb 0.5 Mg-3 Mg/3 Ml Soln) 1 ampul IH Q6HRT [facility] Last Admin: 03/18/17 08:41 Dose: 1 ampul Lipase/Protease/Amylase (Pancreaze Dr 10,500 Unit) 1 each FEEDTUBE PRN PRN PRN Reason: For Clogged Feeding Tube Bisacodyl (Dulcolax) 10 mg TN QDAY PRN PRN Reason: constipation unrelieved by MOM Clopidogrel Bisulfate (Plavix) 150 mg PO QDAY [facility] Last Admin: 03/18/17 11:57 Dose: 150 mg Epoetin [place] (Procrit) 10,000 unit IV ARGENIS PRN PRN Reason: hemodialysis Famotidine (Pepcid) 10 mg IV BID [facility] Last Admin: 03/18/17 13:21 Dose: 10 mg Heparin Sodium (Porcine) (Heparin) 5,000 unit SUB-Q QDAY [facility] Last Admin: 03/18/17 13:17 Dose: 5,000 unit Hydrophilic Ointment (Vaseline Lip Therapy) 1 applic TP Q2HR PRN PRN Reason: Dry Lips Fentanyl Citrate (Fentanyl Drip Premix) 2,000 mcg in 100 mls @ 5.216 mls/hr IV TITR ANNETTE; 1 MCG/KG/HR PRN Reason: Protocol Last Admin: 03/18/17 09:55 Dose: 3 mcg/kg/hr, 15.649 mls/hr Amiodarone HCl 900 mg/ (Dextrose) 500 mls @ 33.33 mls/hr IV DIRECT ANNETTE; 1 MG /MIN PRN Reason: Protocol Last Admin: 03/18/17 08:00 Dose: 0.5 mg/min, 16.66 mls/hr Propofol (Diprivan 10 Mg/Ml) 1,000 mg in 100 mls @ 3.435 mls/hr IV TITR ANNETTE; 5 MCG/KG/MIN PRN Reason: Protocol Last Titration: 03/18/17 07:30 Dose: 0 mcg/kg/min, 0 mls/hr Dopamine HCl/Dextrose (Intropin Drip 800 Mg/D5w 250 Ml) 800 mg in 250 mls @ 4.294 mls/hr IV TITR ANNETTE; 2 MCG/KG/MIN PRN Reason: Protocol Last Admin: 03/18/17 01:47 Dose: 8 mcg/kg/min, 17.175 mls/hr Levofloxacin/Dextrose (Levaquin 500mg/100ml) 500 mg in 100 mls @ 100 mls/hr IV Q48H ANNETTE PRN Reason: Protocol Sodium Chloride (Nacl 0.9%) 100 mls @ 999 mls/hr IV ARGENIS PRN PRN Reason: Hypotension Insulin Human Regular (Novolin R) 0 units SUB-Q Q6HR ANNETTE PRN Reason: Protocol Last Admin: 03/18/17 13:01 Dose: Not Given Magnesium Hydroxide (Milk Of Magnesia) 30 ml PO Q4H PRN PRN Reason: Constipation Metoclopramide HCl (Reglan) 10 mg IV Q6H ANNETTE Last Admin: 03/18/17 13:18 Dose: 10 mg Multi-Ingred Cream/Lotion/Oil/Oint (Artificial Tears Ophth Oint) 1 applic OU Q4HR PRN PRN Reason: Dry Eye(s) Ondansetron HCl (Zofran) 4 mg IV Q4H PRN PRN Reason: Nausea And Vomiting Last Admin: 03/18/17 08:30 Dose: 4 mg Simple Syrup (Simple Syrup) 15 ml FEEDTUBE PRN PRN PRN Reason: Hypoglycemia Simple Syrup (Simple Syrup) 30 ml FEEDTUBE PRN PRN PRN Reason: Hypoglycemia Sodium Bicarbonate (Sodium Bicarbonate) 325 mg FEEDTUBE PRN PRN PRN Reason: For Clogged Feeding Tube Sodium Chloride (Nacl 0.9% 500 Ml) 1 ml IV DIRECT ANNETTE Vancomycin HCl (Vancomycin Pharmacy To Dose) 1 each IV PKCONSULT ANNETTE PRN Reason: Protocol Review of Systems ROS unobtainable: due to endotracheal tube Physical Examination - Physical Exam Narrative exam: intubated, FiO2 31%; spouse at bedside - Constitutional Vitals: Vital Signs Temp Pulse Resp BP Pulse Ox 99.8 F H 85 13 84/48 99 03/18/17 12:24 03/18/17 12:11 03/18/17 12:11 03/18/17 12:11 03/18/17 12:11 Temperature -Last 24 Hours Temperature 99.8 F Temperature 100.2 F Temperature 99.8 F Temperature 100.1 F Temperature 98.9 F Temperature 100 F General appearance: Present: obese - EENT Eyes: Absent: conjunctival injection ENT: other (ET and HG tubes in place) - Neck Neck: Present: supple - Respiratory Respiratory: bilateral: CTA, diminished - Cardiovascular Rhythm: regular Heart Sounds: Present: S1 & S2 - Extremities Extremity abnormal: edema (trace bilaterally) - Abdominal General gastrointestinal: Present: soft, non-distended - Integumentary Integumentary: Absent: rash - Neurologic Neurologic: other (unresponsive) - Additional findings Additional findings: right inguinal central line Results - Labs CBC & Chem 7: 03/18/17 03:33 03/18/17 03:33 Labs: Abnormal lab results 03/17/17 03/17/17 03/18/17 Range/Units 17:15 21:12 03:33 WBC 17.6 H (4.5-11.0) K/mm3 RBC 3.59 L (3.65-5.03) M/mm3 RDW 16.9 H (13.2-15.2) % Lymph % (Auto) 4.2 L (13.4-35.0) % [place] % (Auto) 11.8 H (0.0-7.3) % Lymph # 0.7 L (1.2-5.4) K/mm3 [place] # 2.1 H (0.0-0.8) K/mm3 Seg Neutrophils % 83.3 H (40.0-70.0) % Seg Neutrophils # 14.7 H (1.8-7.7) K/mm3 Heparin Anti-Xa Level < 0.10 L (0.3-0.7) U.I./ml POC ABG pH (7.35-7.45) POC ABG pCO2 (35-45) Sodium (137-145) mmol/L Potassium (3.6-5.0) mmol/L Chloride (98-107) mmol/L BUN (7-17) mg/dL Creatinine (0.7-1.2) mg/dL Glucose (65-100) mg/dL C-Reactive Protein 33.90 H (0.00-1.30) mg/dL 03/18/17 03/18/17 Range/Units 03:33 04:34 WBC (4.5-11.0) K/mm3 RBC (3.65-5.03) M/mm3 RDW (13.2-15.2) % Lymph % (Auto) (13.4-35.0) % [place] % (Auto) (0.0-7.3) % Lymph # (1.2-5.4) K/mm3 [place] # (0.0-0.8) K/mm3 Seg Neutrophils % (40.0-70.0) % Seg Neutrophils # (1.8-7.7) K/mm3 Heparin Anti-Xa Level (0.3-0.7) U.I./ml POC ABG pH 7.289 L (7.35-7.45) POC ABG pCO2 48.7 H (35-45) Sodium 127 L (137-145) mmol/L Potassium 6.1 H* (3.6-5.0) mmol/L Chloride 87.2 L (98-107) mmol/L BUN 55 H (7-17) mg/dL Creatinine 8.7 H (0.7-1.2) mg/dL Glucose 140 H (65-100) mg/dL C-Reactive Protein (0.00-1.30) mg/dL Microbiology 03/16/17 21:51 Peripheral/Venous Blood Culture - Preliminary NO GROWTH AFTER 24 HOURS 03/16/17 21:43 Peripheral/Venous Blood Culture - Preliminary NO GROWTH AFTER 24 HOURS - Imaging and Cardiology Chest x-ray: report reviewed (low lung volumes) Abdominal x-ray: report reviewed (limited due to body habitus) Assessment and Plan - Patient Problems (1) Sepsis syndrome Current Visit: Yes Status: Acute Plan to address problem: 1. No clinical correlate for increased WBC. Improved over past 24-36 hours. 2. Continue empiric Vancomycin and Levaquin for now. 3. Will continue to monitor.
[2017-03-18] MEDS ORDERED: ATIVAN ONE (15:22)
--- NOTE | 2017-03-18 17:19 | Consultation ---
History of Present Illness Consult date: 03/18/17 Requesting physician: PACO SANDOVAL Reason for Consult: post arrest seizure Chief complaint: AMS limits direct hx History of present illness: 66 YO F p/w STEMI on 03/16 c/u in hospital cardiac arrest. I have been asked to eval for post arrest seizure but no clear documentation of any concerning movements on recent progress notes so therefore I am no able to state clearly the aggravating, relieving or temporal factors or severity. Pt is intubated, sedated on Propofol/Fentanyl @ time of my assessment. Past History Past Medical History: cancer (breast cancer status post lumpectomy), diabetes, dialysis, hypertension, other (history of benign colonic mass) Past Surgical History: Other (history of creation of AV fistula. History of colostomy and reversal of colostomy. Left breast lumpectomy) Social history: no significant social history Family history: no significant family history Medications and Allergies Allergies Allergy/AdvReac Type Severity Reaction Status Date / Time aspirin AdvReac HEART Verified 01/23/17 16:26 FLUTTER Home Medications Medication Instructions Recorded Confirmed Last Taken Type AtorvaSTATin [Lipitor] 20 mg PO QHS 04/07/16 03/18/17 Unknown History Cholecalciferol (Vitamin D3) 10,000 unit PO 1XW 04/07/16 03/18/17 04/04/16 History [Vitamin D3] Cinacalcet HCl [Sensipar] 60 mg PO DAILY 04/07/16 03/18/17 Unknown History Glimepiride [Amaryl] 2 mg PO QDAY 04/07/16 03/18/17 Unknown History Sevelamer Carbonate [Renvela] 800 mg PO TIDWM 04/07/16 03/18/17 Unknown History Clopidogrel [Plavix] 75 mg PO QDAY #30 tablet 04/09/16 03/18/17 Unknown Rx Hydrochlorothiazide [Hctz] 12.5 mg PO QDAY #30 capsule 04/09/16 03/18/17 Unknown Rx Pantoprazole [Protonix TAB] 20 mg PO QDAY #30 tablet. 04/09/16 03/18/17 Unknown Rx Tamsulosin [Flomax] 0.4 mg PO QDAY #30 cap 04/09/16 Unknown Rx amLODIPine [Norvasc] 10 mg PO DAILY #30 tab 04/09/16 03/18/17 Unknown Rx Cyclobenzaprine HCl [Flexeril 5 MG 5 mg PO Q8HR PRN #15 tab 01/24/17 03/18/17 Unknown Rx TAB] Active Meds: Active Medications Acetaminophen (Tylenol) 650 mg FEEDTUBE Q6H PRN PRN Reason: Fever >101 Last Admin: 03/17/17 05:08 Dose: 650 mg Al Hydrox/Mg Hydrox/Simethicone (Alum-Mag Hydrox-Simeth [phone]/5ml) 30 ml PO Q4H PRN PRN Reason: Indigestion Albuterol/Ipratropium (Duoneb 0.5 Mg-3 Mg/3 Ml Soln) 1 ampul IH Q6HRT [facility] Last Admin: 03/18/17 08:41 Dose: 1 ampul Lipase/Protease/Amylase (Pancreaze Dr 10,500 Unit) 1 each FEEDTUBE PRN PRN PRN Reason: For Clogged Feeding Tube Bisacodyl (Dulcolax) 10 mg WI QDAY PRN PRN Reason: constipation unrelieved by MOM Clopidogrel Bisulfate (Plavix) 150 mg PO QDAY [facility] Last Admin: 03/18/17 11:57 Dose: 150 mg Epoetin [place] (Procrit) 10,000 unit IV ARGENIS PRN PRN Reason: hemodialysis Famotidine (Pepcid) 10 mg IV BID [facility] Last Admin: 03/18/17 13:21 Dose: 10 mg Heparin Sodium (Porcine) (Heparin) 5,000 unit SUB-Q QDAY [facility] Last Admin: 03/18/17 13:17 Dose: 5,000 unit Hydrophilic Ointment (Vaseline Lip Therapy) 1 applic TP Q2HR PRN PRN Reason: Dry Lips Fentanyl Citrate (Fentanyl Drip Premix) 2,000 mcg in 100 mls @ 5.725 mls/hr IV TITR ANNETTE; 1 MCG/KG/HR PRN Reason: Protocol Last Admin: 03/18/17 15:17 Dose: 3 mcg/kg/hr, 15.649 mls/hr Amiodarone HCl 900 mg/ (Dextrose) 500 mls @ 33.33 mls/hr IV DIRECT ANNETTE; 1 MG /MIN PRN Reason: Protocol Last Admin: 03/18/17 08:00 Dose: 0.5 mg/min, 16.66 mls/hr Propofol (Diprivan 10 Mg/Ml) 1,000 mg in 100 mls @ 3.435 mls/hr IV TITR ANNETTE; 5 MCG/KG/MIN PRN Reason: Protocol Last Titration: 03/18/17 07:30 Dose: 0 mcg/kg/min, 0 mls/hr Dopamine HCl/Dextrose (Intropin Drip 800 Mg/D5w 250 Ml) 800 mg in 250 mls @ 4.294 mls/hr IV TITR ANNETTE; 2 MCG/KG/MIN PRN Reason: Protocol Last Admin: 03/18/17 01:47 Dose: 8 mcg/kg/min, 17.175 mls/hr Levofloxacin/Dextrose (Levaquin 500mg/100ml) 500 mg in 100 mls @ 100 mls/hr IV Q48H ANNETTE PRN Reason: Protocol Sodium Chloride (Nacl 0.9%) 100 mls @ 999 mls/hr IV ARGENIS PRN PRN Reason: Hypotension Insulin Human Regular (Novolin R) 0 units SUB-Q Q6HR ANNETTE PRN Reason: Protocol Last Admin: 03/18/17 13:01 Dose: Not Given Magnesium Hydroxide (Milk Of Magnesia) 30 ml PO Q4H PRN PRN Reason: Constipation Metoclopramide HCl (Reglan) 10 mg IV Q6H ANNETTE Last Admin: 03/18/17 13:18 Dose: 10 mg Multi-Ingred Cream/Lotion/Oil/Oint (Artificial Tears Ophth Oint) 1 applic OU Q4HR PRN PRN Reason: Dry Eye(s) Ondansetron HCl (Zofran) 4 mg IV Q4H PRN PRN Reason: Nausea And Vomiting Last Admin: 03/18/17 08:30 Dose: 4 mg Simple Syrup (Simple Syrup) 15 ml FEEDTUBE PRN PRN PRN Reason: Hypoglycemia Simple Syrup (Simple Syrup) 30 ml FEEDTUBE PRN PRN PRN Reason: Hypoglycemia Sodium Bicarbonate (Sodium Bicarbonate) 325 mg FEEDTUBE PRN PRN PRN Reason: For Clogged Feeding Tube Sodium Chloride (Nacl 0.9% 500 Ml) 1 ml IV DIRECT ANNETTE Vancomycin HCl (Vancomycin Pharmacy To Dose) 1 each IV PKCONSULT ANNETTE PRN Reason: Protocol Review of Systems ROS unobtainable: due to endotracheal tube Physical Examination - Vital Signs Vital Signs: Vital Signs Temp Pulse BP Pulse Ox 97.0 F L 108 H 195/85 100 03/16/17 11:03 03/16/17 11:03 03/16/17 11:03 03/16/17 11:03 - Constitutional General appearance: uncomfortable, acutely ill, chronically ill - EENT EENT: Present: ATNC, PERRL, mucous membranes dry, hearing intact, vision intact - Respiratory Respiratory: Present: chest non-tender, normal breath sounds, no respiratory distress - Cardiovascular Cardiovascular: Present: regular rate Extremities: Present: no peripheral edema bilatateraly, no clubbing, cyanosis, no inflammation, no ischemia or petechiae - Gastrointestinal Gastrointestinal: Present: normoactive bowel sounds, soft, non-distended - Integumentary Integumentary: Present: normal - Neurologic Cranial nerve examination: PERRL, EOMI, VFF, V1/V2/V3 grossly intact, face symmetric, tongue midline, intact, Intact Vestibulo-ocular r, intact corneal reflex Speech examination: other (follows all commands, intubated limits language expression) Sensorimotor examination: intact Motor examination - right side: 3/5: biceps, triceps, wrist flexion, wrist extension, 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, hip flexors, knee extensors, dorsiflexion, toe extension (EHL) , plantarflexion Motor examination - left side: 3/5: biceps, triceps, wrist flexion, wrist extension, 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, hip flexors, knee extensors, dorsiflexion, toe extension (EHL) , plantarflexion Detailed sensory examination: intact, light touch, pain Reflex and gait examination: intact Reflexes: 0: ankle, 2+: bicep, knee, tricep - Musculoskeletal Musculoskeletal: Present: no fluid collection, no pain, normal range of motion - Psychiatric Psychiatric: Present: mood/affect appropriate, cooperative Results - Laboratory Findings CBC and BMP: 03/18/17 03:33 03/18/17 03:33 Abnormal Lab Findings: Abnormal Labs 03/16/17 03/16/17 03/17/17 16:36 18:00 03:42 WBC 20.6 H RBC RDW 17.3 H Lymph % (Auto) [place] % (Auto) Lymph # [place] # Seg Neutrophils % Seg Neuts % (Manual) 84.0 H Lymphocytes % (Manual) 3.0 L Monocytes % (Manual) 11.0 H Seg Neutrophils # Seg Neutrophils # Man 17.3 H Lymphocytes # (Manual) 0.6 L Monocytes # (Manual) 2.3 H Heparin Anti-Xa Level POC ABG pH 7.336 L POC ABG pCO2 47.9 H POC ABG pO2 189 H Sodium Potassium Chloride Carbon Dioxide BUN Creatinine Glucose Total Creatine Kinase 282 H CK-MB (CK-2) 24.2 H CK-MB (CK-2) Rel Index 8.5 H Troponin T 0.656 H* D C-Reactive Protein 03/17/17 03/17/17 03/17/17 03:42 04:21 17:15 WBC RBC RDW Lymph % (Auto) [place] % (Auto) Lymph # [place] # Seg Neutrophils % Seg Neuts % (Manual) Lymphocytes % (Manual) Monocytes % (Manual) Seg Neutrophils # Seg Neutrophils # Man Lymphocytes # (Manual) Monocytes # (Manual) Heparin Anti-Xa Level 0.10 L POC ABG pH POC ABG pCO2 POC ABG pO2 Sodium 131 L Potassium 5.3 H D Chloride 89.5 L Carbon Dioxide 21 L BUN 39 H Creatinine 7.0 H Glucose 151 H Total Creatine Kinase CK-MB (CK-2) CK-MB (CK-2) Rel Index Troponin T C-Reactive Protein 33.90 H 03/17/17 03/18/17 03/18/17 21:12 03:33 03:33 WBC 17.6 H RBC 3.59 L RDW 16.9 H Lymph % (Auto) 4.2 L [place] % (Auto) 11.8 H Lymph # 0.7 L [place] # 2.1 H Seg Neutrophils % 83.3 H Seg Neuts % (Manual) Lymphocytes % (Manual) Monocytes % (Manual) Seg Neutrophils # 14.7 H Seg Neutrophils # Man Lymphocytes # (Manual) Monocytes # (Manual) Heparin Anti-Xa Level < 0.10 L POC ABG pH POC ABG pCO2 POC ABG pO2 Sodium 127 L Potassium 6.1 H* Chloride 87.2 L Carbon Dioxide BUN 55 H Creatinine 8.7 H Glucose 140 H Total Creatine Kinase CK-MB (CK-2) CK-MB (CK-2) Rel Index Troponin T C-Reactive Protein 03/18/17 04:34 WBC RBC RDW Lymph % (Auto) [place] % (Auto) Lymph # [place] # Seg Neutrophils % Seg Neuts % (Manual) Lymphocytes % (Manual) Monocytes % (Manual) Seg Neutrophils # Seg Neutrophils # Man Lymphocytes # (Manual) Monocytes # (Manual) Heparin Anti-Xa Level POC ABG pH 7.289 L POC ABG pCO2 48.7 H POC ABG pO2 Sodium Potassium Chloride Carbon Dioxide BUN Creatinine Glucose Total Creatine Kinase CK-MB (CK-2) CK-MB (CK-2) Rel Index Troponin T C-Reactive Protein Assessment and Plan 66 YO F extensive medical Hx p/w STEMI on 03/16 c/b in hospital cardiac arrest. I have been asked to eval for ? post arrest seizure but no clear documentation of any specific abnormal movements or LOC beyond cardiac arrest. On exam while intubated, sedated on Propofol/Fentanyl pt is drowsy but eyes open, has intact brainstem reflexes, follows all commands w/ diffuse 2-3/5 power throughout. She does have some diffuse myoclonic like movements that are likely 2/2 uremia/ cardiac arrest but no clear movements to suggest seizures ongoing @ this time. At this time, there is no clear indication for mod-severe hypoxic-ischemic encephalopathy that would confer poor neurologic prognosis (, unconsciousness after one month, or unconsciousness or severe disability after six months). Plan and Recommendation: 1. Telemetry bed w/ Q4 hour neuro checks & Sz precautions 2. 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 Labs: Serum/Urine Tox, UA/UCx, Electrolytes especially Na, Ca, Mg, and Glucose, TSH/Ammonia and correct as necessary 4. Cont Infectious work up/medical management for UTI, PNA, cellulitis, bacteremia, etc. 5. Avoid hyponatremia, hypo/hyper-calcemia, hypo/hyperglycemia, acidosis, hypoxia/hypoxemia, hypercarbia/hypercapnia 6. Avoid institution of any psychoactive medications (e.g. antihistamines, anticholinergics, BZD, hypnotics, opiates) as able unless low doses of low potency antipsychotic needed for behavioral issues complicating medical care. Wean sedation as able. 7. AED therapy: Defer @ this time but will need to re-eval if any recurrent ? seizure or pt able to reflect hx of prior AED use. 8. Avoid meds that can lower sz threshold e.g. Tramadol, fluroquinolones, carbapenems 9. If suspicion for EtOH dependence would supplement Thiamine, Folate and B12
[2017-03-18] MEDS ORDERED: XYLOCAINE 1% 20 mL ONE (18:09)
--- NOTE | 2017-03-18 18:32 | Post Operative Note ---
Date of procedure: 03/18/17 Pre-op diagnosis: Limited IV access, ESRD, on pressors Post-op diagnosis: same Procedure: 1. Ultrasound guided access of the left common femoral vein 2. Placement of a 7 Fr triple lumen catheter Anesthesia: local (w/ 2 ativan IV) Surgeon: EFRAIN HEWITT Estimated blood loss: minimal Condition: stable Disposition: no change
--- NOTE | 2017-03-18 19:46 | Operative Report ---
Operative Report Operative Report: EXAM: 1. Ultrasound-guided puncture of the left common femoral vein 2. Placement of a left common femoral vein 7 [place] triple-lumen nontunneled noncuffed catheter. DATE: 03/18/17 INDICATION: 66-year-old female on pressors and without good IV access with end- stage renal disease. MEDICATIONS: Local anesthetic (1% lidocaine). DUMP GRADER: EFRAIN HEWITT MD DEVICES: 7F triple lumen nontunneled noncuffed catheter CONTRAST: None PROCEDURE: The risks, benefits, and alternatives were discussed and informed consent was obtained. The patient's left common femoral vein was assessed with ultrasound at bedside and determined to be patent prior to procedure. The patient was prepped and draped in a sterile fashion. The puncture site was anesthetized. Under sonographic guidance, the left common femoral vein was punctured with a 18-gauge micropuncture needle and a 0.035 inch wire was advanced through the needle. Over the 0.035 inch wire, dilatation was performed. The catheter was advanced over the wire. 2-0 silk suture was used to secure the catheter. The catheter was charged with saline. Biopatch and tegaderm were applied. No immediate postsurgical complications. FINDINGS: 1. Ultrasound documented patency of the left common femoral vein. The vessel was accessed under direct ultrasound guidance. IMPRESSION: 1. Successful ultrasound guided bedside placement of a left common femoral vein 7 [place] triple-lumen nontunneled noncuffed triple lumen catheter.
[2017-03-18] MEDS: DIPRIVAN 10 MG/ML 1,000 MG/100 ML BOTTLE IV SCH (21:11)
[2017-03-19] MEDS ORDERED: NACL 0.9% 100 ML IV PRN (00:53)
[2017-03-19] MEDS: DUONEB *Not for PRN Use IH SCH ×4 (01:45→20:04)
[2017-03-19] MEDS: PROCRIT IV PRN (03:19)
[2017-03-19] MEDS: REGLAN IV SCH ×4 (06:14→18:23)
[2017-03-19 08:15] LABS: ISTAT Base Excess 1; ISTAT HCO3 26.4; ISTAT PCO2 49.2 (35-45); ISTAT PH 7.338 (7.35-7.45); ISTAT PO2 110 (80-105); ISTAT SO2 98; ISTAT TCO2 28
[2017-03-19 08:34] LABS: Basophils % (Auto) 0.4 % (0.0-1.8); Eosinophils % (Auto) 0.7 % (0.0-4.3); Hematocrit 27.3 % (30.3-42.9); Hemoglobin 8.8 gm/dl (10.1-14.3); Mean Corpuscular HGB Conc 32 % (30-34); Mean Corpuscular Hemoglobin 28 pg (28-32); Mean Corpuscular Volume 87 fl (79-97); Platelet Count 187 K/mm3 (140-440); Red Blood Count 3.15 M/mm3 (3.65-5.03); Red Cell Distribution Width 17.4 % (13.2-15.2); White Blood Count 16.3 K/mm3 (4.5-11.0)
[2017-03-19 08:49] LABS: Albumin 2.6 g/dL (3.9-5); Albumin/Globulin Ratio 0.6 %; BUN/Creatinine Ratio 7.17; Bilirubin,Total 0.4 mg/dL (0.1-1.2); Calcium 9.8 mg/dL (8.4-10.2); Chloride 89.3 mmol/L (98-107); Potassium 4.8 mmol/L (3.6-5.0); Total Protein 6.7 g/dL (6.3-8.2)
--- NOTE | 2017-03-19 09:27 | Progress Note ---
Assessment and Plan - Patient Problems (1) Acute hypoxemic respiratory failure Current Visit: Yes Status: Acute Plan to address problem: Aspiration precautions, HOB> 40 - VAP bundle addressed Lung protective strategies Analgesia and agitation/anxiety management VTE prophylaxis-on heparin infusion(anticoagulated) Stress ulcer prophylaxis Daily SAT/SBT unless otherwise contraindicated Enteric feeding, accuchecks with glycemic control- currently on hold secondary to vomiting Bronchodilators Adjust minute ventilation for better gas-exchange (2) Cardiac arrest due to underlying cardiac condition Current Visit: Yes Status: Acute Plan to address problem: Continue cardioprotective measures s/p 2 stents to LAD (3) Seizure Current Visit: Yes Status: Acute Plan to address problem: Neurology following. Consult notes and recommendations reviewed (4) ESRD on dialysis Current Visit: Yes Status: Acute Plan to address problem: For HD today per renal service (5) Acute respiratory acidosis Current Visit: Yes Status: Acute Plan to address problem: Adjust minute ventilation Bronchodilators (6) Vomiting Current Visit: Yes Status: Acute Qualifiers: Vomiting type: V Vomiting Intractability: V Nausea presence: N Plan to address problem: Resolved. (7) Obesity (BMI 30-39.9) Current Visit: Yes Status: Acute Plan to address problem: Lifestyle modification after discharge Subjective Date of service: 03/19/17 Principal diagnosis: Acute Hypoxemic Resp Failure; STEMI Interval history: Seen and examined. Vitals ,labs, medications, chart reviewed. at the bedside. No acute overnight events noted. Tolerating tube feeding Currently on amiodarone and fentanyl infusions On mechanical ventilatory support-ETT, no patient ventilator dyssynchrony noted AC-VC 12/500/5/50% Discussed during interdisciplinary ICU rounds Neurology consult notes reviewed and appreciated Objective Vital Signs - 12hr 03/18/17 03/18/17 03/18/17 22:00 22:01 23:00 Temperature Pulse Rate 87 89 86 Pulse Rate [ Anterior Bilateral Throughout] Pulse Rate [ From Monitor] Respiratory 14 12 Rate Respiratory Rate [Anterior Bilateral Throughout] Blood Pressure 110/41 120/41 O2 Sat by Pulse 97 99 Oximetry O2 Sat by Pulse Oximetry [ Anterior Bilateral Throughout] 03/18/17 03/18/17 03/18/17 23:15 23:30 23:44 Temperature Pulse Rate 83 84 85 Pulse Rate [ Anterior Bilateral Throughout] Pulse Rate [ From Monitor] Respiratory 12 12 Rate Respiratory Rate [Anterior Bilateral Throughout] Blood Pressure 120/41 119/41 121/50 O2 Sat by Pulse 99 99 99 Oximetry O2 Sat by Pulse Oximetry [ Anterior Bilateral Throughout] 03/18/17 03/19/17 03/19/17 23:56 00:00 00:30 Temperature 99.3 F Pulse Rate 83 85 Pulse Rate [ Anterior Bilateral Throughout] Pulse Rate [ From Monitor] Respiratory 11 L 12 Rate Respiratory Rate [Anterior Bilateral Throughout] Blood Pressure 122/42 131/43 O2 Sat by Pulse 98 98 Oximetry O2 Sat by Pulse Oximetry [ Anterior Bilateral Throughout] 03/19/17 03/19/17 03/19/17 01:00 01:30 01:31 Temperature 99.3 F Pulse Rate 91 H 84 82 Pulse Rate [ Anterior Bilateral Throughout] Pulse Rate [ From Monitor] Respiratory 12 18 12 Rate Respiratory Rate [Anterior Bilateral Throughout] Blood Pressure 138/51 139/61 138/51 O2 Sat by Pulse 98 98 Oximetry O2 Sat by Pulse 99 Oximetry [ Anterior Bilateral Throughout] 03/19/17 03/19/17 03/19/17 01:45 02:00 02:15 Temperature Pulse Rate 84 85 68 Pulse Rate [ Anterior Bilateral Throughout] Pulse Rate [ From Monitor] Respiratory 11 L Rate Respiratory Rate [Anterior Bilateral Throughout] Blood Pressure 126/41 121/43 127/51 O2 Sat by Pulse 97 Oximetry O2 Sat by Pulse Oximetry [ Anterior Bilateral Throughout] 03/19/17 03/19/17 03/19/17 02:30 02:45 03:00 Temperature Pulse Rate 85 87 91 H Pulse Rate [ Anterior Bilateral Throughout] Pulse Rate [ From Monitor] Respiratory 11 L 11 L Rate Respiratory Rate [Anterior Bilateral Throughout] Blood Pressure 127/48 127/48 128/58 O2 Sat by Pulse 96 97 Oximetry O2 Sat by Pulse Oximetry [ Anterior Bilateral Throughout] 03/19/17 03/19/17 03/19/17 03:15 03:30 03:45 Temperature 98.8 F Pulse Rate 88 85 91 H Pulse Rate [ Anterior Bilateral Throughout] Pulse Rate [ From Monitor] Respiratory 11 L 18 Rate Respiratory Rate [Anterior Bilateral Throughout] Blood Pressure 128/58 138/61 138/61 O2 Sat by Pulse 96 Oximetry O2 Sat by Pulse 100 Oximetry [ Anterior Bilateral Throughout] 03/19/17 03/19/17 03/19/17 04:00 04:31 04:40 Temperature 99.2 F Pulse Rate 89 90 86 Pulse Rate [ Anterior Bilateral Throughout] Pulse Rate [ 81 From Monitor] Respiratory 12 17 Rate Respiratory Rate [Anterior Bilateral Throughout] Blood Pressure 126/49 126/49 126/49 O2 Sat by Pulse 98 96 98 Oximetry O2 Sat by Pulse Oximetry [ Anterior Bilateral Throughout] 03/19/17 03/19/17 03/19/17 05:00 05:31 06:00 Temperature Pulse Rate 88 87 87 Pulse Rate [ Anterior Bilateral Throughout] Pulse Rate [ From Monitor] Respiratory 17 13 13 Rate Respiratory Rate [Anterior Bilateral Throughout] Blood Pressure 123/46 123/46 136/57 O2 Sat by Pulse 98 98 97 Oximetry O2 Sat by Pulse Oximetry [ Anterior Bilateral Throughout] 03/19/17 03/19/17 03/19/17 06:31 07:01 08:00 Temperature 99.2 F Pulse Rate 85 82 Pulse Rate [ Anterior Bilateral Throughout] Pulse Rate [ 80 From Monitor] Respiratory 11 L 11 L 12 Rate Respiratory Rate [Anterior Bilateral Throughout] Blood Pressure 136/57 107/37 O2 Sat by Pulse 98 99 99 Oximetry O2 Sat by Pulse Oximetry [ Anterior Bilateral Throughout] 03/19/17 03/19/17 03/19/17 08:01 08:15 08:25 Temperature Pulse Rate 87 83 Pulse Rate [ 86 Anterior Bilateral Throughout] Pulse Rate [ From Monitor] Respiratory 13 Rate Respiratory 15 Rate [Anterior Bilateral Throughout] Blood Pressure 128/49 128/49 O2 Sat by Pulse 98 97 Oximetry O2 Sat by Pulse Oximetry [ Anterior Bilateral Throughout] 03/19/17 03/19/17 08:42 09:00 Temperature Pulse Rate 83 Pulse Rate [ 88 Anterior Bilateral Throughout] Pulse Rate [ From Monitor] Respiratory 12 Rate Respiratory 14 Rate [Anterior Bilateral Throughout] Blood Pressure 116/42 O2 Sat by Pulse 99 Oximetry O2 Sat by Pulse Oximetry [ Anterior Bilateral Throughout] Constitutional: no acute distress, other (intubated orally, ETT to vent) Eyes: non-icteric ENT: oropharynx moist Neck: supple, no lymphadenopathy Effort: normal, mildly labored Ascultation: Bilateral: diminished breath sounds, rales (scant in bases) Cardiovascular: regular rate and rhythm Gastrointestinal: normoactive bowel sounds, soft, non-tender, non-distended Integumentary: normal, other (Femoral CVC) Extremities: no cyanosis, no edema, pulses normal, no ischemia or petechiae Neurologic: non-focal exam (Moves all extremities, tracks my voice, attempts to vocalize in response to questions), unable to assess Psychiatric: other (unable to assess) CBC and BMP: 03/19/17 08:00 03/19/17 08:00 ABG, PT/INR, D-dimer: ABG POC ABG pH 7.338 (7.35-7.45) L 03/19/17 08:06 POC ABG pCO2 49.2 (35-45) H 03/19/17 08:06 POC ABG pO2 110 (80-105) H 03/19/17 08:06 POC ABG HCO3 26.4 03/19/17 08:06 POC ABG Total CO2 28 03/19/17 08:06 POC ABG O2 Sat 98 03/19/17 08:06 PT/INR, D-dimer PT 13.4 Sec. (12.2-14.9) 03/16/17 11:07 INR 1.03 (0.87-1.13) 03/16/17 11:07 Abnormal lab findings: Abnormal Labs 03/16/17 03/16/17 03/17/17 16:36 18:00 03:42 WBC 20.6 H RBC Hgb Hct RDW 17.3 H Lymph % (Auto) [place] % (Auto) Lymph # [place] # Seg Neutrophils % Seg Neuts % (Manual) 84.0 H Lymphocytes % (Manual) 3.0 L Monocytes % (Manual) 11.0 H Seg Neutrophils # Seg Neutrophils # Man 17.3 H Lymphocytes # (Manual) 0.6 L Monocytes # (Manual) 2.3 H Heparin Anti-Xa Level POC ABG pH 7.336 L POC ABG pCO2 47.9 H POC ABG pO2 189 H Sodium Potassium Chloride Carbon Dioxide BUN Creatinine Glucose POC Glucose ALT Alkaline Phosphatase Total Creatine Kinase 282 H CK-MB (CK-2) 24.2 H CK-MB (CK-2) Rel Index 8.5 H Troponin T 0.656 H* D C-Reactive Protein Albumin 03/17/17 03/17/17 03/17/17 03:42 04:21 17:15 WBC RBC Hgb Hct RDW Lymph % (Auto) [place] % (Auto) Lymph # [place] # Seg Neutrophils % Seg Neuts % (Manual) Lymphocytes % (Manual) Monocytes % (Manual) Seg Neutrophils # Seg Neutrophils # Man Lymphocytes # (Manual) Monocytes # (Manual) Heparin Anti-Xa Level 0.10 L POC ABG pH POC ABG pCO2 POC ABG pO2 Sodium 131 L Potassium 5.3 H D Chloride 89.5 L Carbon Dioxide 21 L BUN 39 H Creatinine 7.0 H Glucose 151 H POC Glucose ALT Alkaline Phosphatase Total Creatine Kinase CK-MB (CK-2) CK-MB (CK-2) Rel Index Troponin T C-Reactive Protein 33.90 H Albumin 03/17/17 03/18/17 03/18/17 21:12 03:33 03:33 WBC 17.6 H RBC 3.59 L Hgb Hct RDW 16.9 H Lymph % (Auto) 4.2 L [place] % (Auto) 11.8 H Lymph # 0.7 L [place] # 2.1 H Seg Neutrophils % 83.3 H Seg Neuts % (Manual) Lymphocytes % (Manual) Monocytes % (Manual) Seg Neutrophils # 14.7 H Seg Neutrophils # Man Lymphocytes # (Manual) Monocytes # (Manual) Heparin Anti-Xa Level < 0.10 L POC ABG pH POC ABG pCO2 POC ABG pO2 Sodium 127 L Potassium 6.1 H* Chloride 87.2 L Carbon Dioxide BUN 55 H Creatinine 8.7 H Glucose 140 H POC Glucose ALT Alkaline Phosphatase Total Creatine Kinase CK-MB (CK-2) CK-MB (CK-2) Rel Index Troponin T C-Reactive Protein Albumin 03/18/17 03/18/17 03/19/17 04:34 22:15 00:04 WBC RBC Hgb Hct RDW Lymph % (Auto) [place] % (Auto) Lymph # [place] # Seg Neutrophils % Seg Neuts % (Manual) Lymphocytes % (Manual) Monocytes % (Manual) Seg Neutrophils # Seg Neutrophils # Man Lymphocytes # (Manual) Monocytes # (Manual) Heparin Anti-Xa Level POC ABG pH 7.289 L POC ABG pCO2 48.7 H POC ABG pO2 Sodium Potassium 5.6 H Chloride Carbon Dioxide BUN Creatinine Glucose POC Glucose 108 H ALT Alkaline Phosphatase Total Creatine Kinase CK-MB (CK-2) CK-MB (CK-2) Rel Index Troponin T C-Reactive Protein Albumin 03/19/17 03/19/17 03/19/17 05:22 08:00 08:00 WBC 16.3 H RBC 3.15 L Hgb 8.8 L Hct 27.3 L RDW 17.4 H Lymph % (Auto) 3.4 L [place] % (Auto) 10.1 H Lymph # 0.5 L [place] # 1.7 H Seg Neutrophils % 85.4 H Seg Neuts % (Manual) Lymphocytes % (Manual) Monocytes % (Manual) Seg Neutrophils # 13.9 H Seg Neutrophils # Man Lymphocytes # (Manual) Monocytes # (Manual) Heparin Anti-Xa Level POC ABG pH POC ABG pCO2 POC ABG pO2 Sodium 131 L Potassium Chloride 89.3 L Carbon Dioxide BUN 56 H Creatinine 7.8 H Glucose 122 H POC Glucose 146 H ALT 59 H Alkaline Phosphatase 208 H Total Creatine Kinase CK-MB (CK-2) CK-MB (CK-2) Rel Index Troponin T C-Reactive Protein Albumin 2.6 L 03/19/17 08:06 WBC RBC Hgb Hct RDW Lymph % (Auto) [place] % (Auto) Lymph # [place] # Seg Neutrophils % Seg Neuts % (Manual) Lymphocytes % (Manual) Monocytes % (Manual) Seg Neutrophils # Seg Neutrophils # Man Lymphocytes # (Manual) Monocytes # (Manual) Heparin Anti-Xa Level POC ABG pH 7.338 L POC ABG pCO2 49.2 H POC ABG pO2 110 H Sodium Potassium Chloride Carbon Dioxide BUN Creatinine Glucose POC Glucose ALT Alkaline Phosphatase Total Creatine Kinase CK-MB (CK-2) CK-MB (CK-2) Rel Index Troponin T C-Reactive Protein Albumin Allied health notes reviewed: RT Critical care time in (mins) excluding proc time.: 35 Critical care attestation.: If time is entered above; I have spent that time in minutes in the direct care of this critically ill patient, excluding procedure time.
--- NOTE | 2017-03-19 09:32 | Progress Note ---
Assessment and Plan Impression * End-stage renal disease on maintenance hemodialysis * Status post V. fib cardiac arrest * Hypertension * s/p PCI * Diabetes * History of breast cancer * Anemia secondary to ESRD * Hyperlipidemia Recommendations * dialysis today and qMWF and prn * low k bath with hd * uf as tolerated * AV fistula is still functional. Has a good bruit and thrill * No IV BP or venipuncture access arm * Adjust diet and meds for ESRD state * Her outpatient days are Tuesdays and Saturdays Subjective Date of service: 03/19/17 Principal diagnosis: Acute Hypoxemic Resp Failure; STEMI Interval history: resting in bed, events noted Objective - Exam Narrative Exam: General appearance: well-developed, well-nourished, appears stated age, intubated EENT: PERRL, mucous membranes moist Neck: no JVD, no thyromegaly, no carotid bruit, supple Respiratory: Present: Clear to Ascultation Cardiology: regular, normal heart rate Gastrointestinal: normal, normoactive bowel sounds Integumentary: no rash, other (AV fistula in her left upper arm. Good bruit and thrill) - Vital Signs Vital signs: Vital Signs - 12hr 03/18/17 03/18/17 03/18/17 22:00 22:01 23:00 Temperature Pulse Rate 87 89 86 Pulse Rate [ Anterior Bilateral Throughout] Pulse Rate [ From Monitor] Respiratory 14 12 Rate Respiratory Rate [Anterior Bilateral Throughout] Blood Pressure 110/41 120/41 O2 Sat by Pulse 97 99 Oximetry O2 Sat by Pulse Oximetry [ Anterior Bilateral Throughout] 03/18/17 03/18/17 03/18/17 23:15 23:30 23:44 Temperature Pulse Rate 83 84 85 Pulse Rate [ Anterior Bilateral Throughout] Pulse Rate [ From Monitor] Respiratory 12 12 Rate Respiratory Rate [Anterior Bilateral Throughout] Blood Pressure 120/41 119/41 121/50 O2 Sat by Pulse 99 99 99 Oximetry O2 Sat by Pulse Oximetry [ Anterior Bilateral Throughout] 03/18/17 03/19/17 03/19/17 23:56 00:00 00:30 Temperature 99.3 F Pulse Rate 83 85 Pulse Rate [ Anterior Bilateral Throughout] Pulse Rate [ From Monitor] Respiratory 11 L 12 Rate Respiratory Rate [Anterior Bilateral Throughout] Blood Pressure 122/42 131/43 O2 Sat by Pulse 98 98 Oximetry O2 Sat by Pulse Oximetry [ Anterior Bilateral Throughout] 03/19/17 03/19/17 03/19/17 01:00 01:30 01:31 Temperature 99.3 F Pulse Rate 91 H 84 82 Pulse Rate [ Anterior Bilateral Throughout] Pulse Rate [ From Monitor] Respiratory 12 18 12 Rate Respiratory Rate [Anterior Bilateral Throughout] Blood Pressure 138/51 139/61 138/51 O2 Sat by Pulse 98 98 Oximetry O2 Sat by Pulse 99 Oximetry [ Anterior Bilateral Throughout] 03/19/17 03/19/17 03/19/17 01:45 02:00 02:15 Temperature Pulse Rate 84 85 68 Pulse Rate [ Anterior Bilateral Throughout] Pulse Rate [ From Monitor] Respiratory 11 L Rate Respiratory Rate [Anterior Bilateral Throughout] Blood Pressure 126/41 121/43 127/51 O2 Sat by Pulse 97 Oximetry O2 Sat by Pulse Oximetry [ Anterior Bilateral Throughout] 03/19/17 03/19/17 03/19/17 02:30 02:45 03:00 Temperature Pulse Rate 85 87 91 H Pulse Rate [ Anterior Bilateral Throughout] Pulse Rate [ From Monitor] Respiratory 11 L 11 L Rate Respiratory Rate [Anterior Bilateral Throughout] Blood Pressure 127/48 127/48 128/58 O2 Sat by Pulse 96 97 Oximetry O2 Sat by Pulse Oximetry [ Anterior Bilateral Throughout] 03/19/17 03/19/17 03/19/17 03:15 03:30 03:45 Temperature 98.8 F Pulse Rate 88 85 91 H Pulse Rate [ Anterior Bilateral Throughout] Pulse Rate [ From Monitor] Respiratory 11 L 18 Rate Respiratory Rate [Anterior Bilateral Throughout] Blood Pressure 128/58 138/61 138/61 O2 Sat by Pulse 96 Oximetry O2 Sat by Pulse 100 Oximetry [ Anterior Bilateral Throughout] 03/19/17 03/19/17 03/19/17 04:00 04:31 04:40 Temperature 99.2 F Pulse Rate 89 90 86 Pulse Rate [ Anterior Bilateral Throughout] Pulse Rate [ 81 From Monitor] Respiratory 12 17 Rate Respiratory Rate [Anterior Bilateral Throughout] Blood Pressure 126/49 126/49 126/49 O2 Sat by Pulse 98 96 98 Oximetry O2 Sat by Pulse Oximetry [ Anterior Bilateral Throughout] 03/19/17 03/19/17 03/19/17 05:00 05:31 06:00 Temperature Pulse Rate 88 87 87 Pulse Rate [ Anterior Bilateral Throughout] Pulse Rate [ From Monitor] Respiratory 17 13 13 Rate Respiratory Rate [Anterior Bilateral Throughout] Blood Pressure 123/46 123/46 136/57 O2 Sat by Pulse 98 98 97 Oximetry O2 Sat by Pulse Oximetry [ Anterior Bilateral Throughout] 03/19/17 03/19/17 03/19/17 06:31 07:01 08:00 Temperature 99.2 F Pulse Rate 85 82 Pulse Rate [ Anterior Bilateral Throughout] Pulse Rate [ 80 From Monitor] Respiratory 11 L 11 L 12 Rate Respiratory Rate [Anterior Bilateral Throughout] Blood Pressure 136/57 107/37 O2 Sat by Pulse 98 99 99 Oximetry O2 Sat by Pulse Oximetry [ Anterior Bilateral Throughout] 03/19/17 03/19/17 03/19/17 08:01 08:15 08:25 Temperature Pulse Rate 87 83 Pulse Rate [ 86 Anterior Bilateral Throughout] Pulse Rate [ From Monitor] Respiratory 13 Rate Respiratory 15 Rate [Anterior Bilateral Throughout] Blood Pressure 128/49 128/49 O2 Sat by Pulse 98 97 Oximetry O2 Sat by Pulse Oximetry [ Anterior Bilateral Throughout] 03/19/17 03/19/17 08:42 09:00 Temperature Pulse Rate 83 Pulse Rate [ 88 Anterior Bilateral Throughout] Pulse Rate [ From Monitor] Respiratory 12 Rate Respiratory 14 Rate [Anterior Bilateral Throughout] Blood Pressure 116/42 O2 Sat by Pulse 99 Oximetry O2 Sat by Pulse Oximetry [ Anterior Bilateral Throughout] - Lab 03/19/17 08:00 03/19/17 08:00 Most recent lab results Calcium 9.8 mg/dL (8.4-10.2) 03/19/17 08:00
[2017-03-19] MEDS: HEPARIN SUB-Q SCH (10:08)
[2017-03-19] MEDS: PEPCID IV SCH ×2 (10:08→22:00)
[2017-03-19] MEDS: PLAVIX PO SCH (10:09)
--- NOTE | 2017-03-19 11:42 | Electroencephalogram Report ---
Electroencephalogram EEG Date of exam: 03/19/17 History: 66 YO F w/ cardiac arrest. Impression: Abnormal awake and drowsy 20 minute routine EEG. There are findings to suggest moderate nonspecific cerebral dysfunction with some findings that have been associated with toxic metabolic encephalopathies. There are no findings to suggest cortical irritability, epileptiform discharges or electrographic seizures. Description: The waking background shows an inappropriate organization with poorly-defined anterior posterior voltage and frequency gradients. Posteriorly, there is a poorly-developed mixed theta and delta frequency background which is symmetrical high amplitude. There is unclear reactivity. There is no variability. There are no features of sleep. There are occasional frontally predominant generalized discharges with triphasic morphology. Throughout, the recording there are no epileptiform abnormalities, focal or lateralizing features, or significant interhemispheric findings. Interpretation: This is a digitally acquired 21-channel electroencephalogram. Both bipolar and referential montages were used in interpretation. Electrodes were placed in accordance with the International 10-20 system.
--- NOTE | 2017-03-19 12:05 | Progress Note ---
Assessment and Plan D/c IV amio. Initiate Lopressor, 12.5mg PO BID. Await echo. - Patient Problems (1) Cardiac arrest Current Visit: Yes Status: Acute (2) STEMI (ST elevation myocardial infarction) Current Visit: Yes Status: Acute Qualifiers: Involved coronary artery: unspecified coronary artery Qualified Code(s): I21.3 - ST elevation (STEMI) myocardial infarction of unspecified site (3) Acute hypoxemic respiratory failure Current Visit: Yes Status: Acute (4) Hypotension Current Visit: Yes Status: Acute Qualifiers: Hypotension type: H Trimester: T (5) ESRD on dialysis Current Visit: Yes Status: Acute Subjective Date of service: 03/19/17 Principal diagnosis: Acute Hypoxemic Resp Failure; STEMI Interval history: Pt remains intubated, off sedation and nods head appropriately to questions. No additional seizure-like activity noted overnight per primary RN. VSS, in SR on tele. TVP d/c'd yesterday. Off pressors. Family at bedside. Objective Last Vital Signs Temp 99.2 F 03/19/17 08:00 Pulse 87 03/19/17 11:00 Resp 13 03/19/17 11:00 BP 123/49 03/19/17 11:00 Pulse Ox 98 03/19/17 11:00 - Physical Examination General: No Apparent Distress HEENT: Positive: Normocephaly, Mucus Membranes Moist Neck: Positive: neck supple, trachea midline Cardiac: Positive: Reg Rate and Rhythm, S1/S2 Lungs: Positive: Ventilated Respirations Neuro: Positive: Grossly Intact Abdomen: Positive: Soft, Active Bowel Sounds Skin: Negative: Clear, Rash Musculoskeletal: No Fluid Collection Extremities: Present: edema (trace to mild pitting bilateral leg edema) - Labs and Meds Cardiac Enzymes 03/19/17 Range/Units 08:00 AST 37 (5-40) units/L CBC 03/19/17 Range/Units 08:00 WBC 16.3 H (4.5-11.0) K/mm3 RBC 3.15 L (3.65-5.03) M/mm3 Hgb 8.8 L (10.1-14.3) gm/dl Hct 27.3 L (30.3-42.9) % Plt Count 187 (140-440) K/mm3 Lymph # 0.5 L (1.2-5.4) K/mm3 [place] # 1.7 H (0.0-0.8) K/mm3 Eos # 0.1 (0.0-0.4) K/mm3 Baso # 0.1 (0.0-0.1) K/mm3 Comprehensive Metabolic Panel 03/18/17 03/19/17 Range/Units 22:15 08:00 Sodium 131 L (137-145) mmol/L Potassium 5.6 H 4.8 (3.6-5.0) mmol/L Chloride 89.3 L (98-107) mmol/L Carbon Dioxide 23 (22-30) mmol/L BUN 56 H (7-17) mg/dL Creatinine 7.8 H (0.7-1.2) mg/dL Glucose 122 H (65-100) mg/dL Calcium 9.8 (8.4-10.2) mg/dL AST 37 (5-40) units/L ALT 59 H (7-56) units/L Alkaline Phosphatase 208 H (35-129) units/L Total Protein 6.7 (6.3-8.2) g/dL Albumin 2.6 L (3.9-5) g/dL - Telemetry EKG Rhythm: Sinus Rhythm
[2017-03-19] MEDS: LOPRESSOR PO SCH ×2 (12:09→22:00)
--- NOTE | 2017-03-19 12:18 | Progress Note ---
Assessment and Plan - Patient Problems (1) Sepsis syndrome Current Visit: Yes Status: Acute Plan to address problem: Continue current empiric therapy. Follow clinically for localizing issues. WBC count is slowly downtrending. Subjective Date of service: 03/19/17 Principal diagnosis: Acute Hypoxemic Resp Failure; STEMI Interval history: Remains critically ill in ICU. No new events reported. Objective - Exam Narrative Exam: intubated, on Dopamine gtt - Constitutional Vitals: Vital Signs Temp Pulse Resp BP Pulse Ox 99.2 F 83 13 134/47 98 03/19/17 08:00 03/19/17 12:09 03/19/17 11:00 03/19/17 12:09 03/19/17 11:00 Temperature -Last 24 Hours Temperature 99.2 F Temperature 99.2 F Temperature 99.2 F Temperature 98.8 F Temperature 99.3 F Temperature 99.3 F Temperature 100.2 F Temperature 99.8 F Temperature 99.8 F Temperature 99.8 F - EENT Eyes: no scleral icterus ENT: other (ET and NG tubes in place) - Respiratory Respiratory: bilateral: CTA - Cardiovascular Rhythm: regular Heart Sounds: Present: S1 & S2 Extremity abnormal: edema (trace bilateral) - Gastrointestinal General gastrointestinal: Present: soft, non-distended, other (decreased bowel sounds) - Integumentary Integumentary: no jaundice, no rash - Additional findings Additional findings: left femoral central line without surrounding inflammation - Labs CBC & Chem 7: 03/19/17 08:00 03/19/17 08:00 Labs: Abnormal lab results 03/18/17 03/19/17 03/19/17 Range/Units 22:15 00:04 05:22 WBC (4.5-11.0) K/mm3 RBC (3.65-5.03) M/mm3 Hgb (10.1-14.3) gm/dl Hct (30.3-42.9) % RDW (13.2-15.2) % Lymph % (Auto) (13.4-35.0) % [place] % (Auto) (0.0-7.3) % Lymph # (1.2-5.4) K/mm3 [place] # (0.0-0.8) K/mm3 Seg Neutrophils % (40.0-70.0) % Seg Neutrophils # (1.8-7.7) K/mm3 POC ABG pH (7.35-7.45) POC ABG pCO2 (35-45) POC ABG pO2 (80-105) Sodium (137-145) mmol/L Potassium 5.6 H (3.6-5.0) mmol/L Chloride (98-107) mmol/L BUN (7-17) mg/dL Creatinine (0.7-1.2) mg/dL Glucose (65-100) mg/dL POC Glucose 108 H 146 H (70-105) ALT (7-56) units/L Alkaline Phosphatase (35-129) units/L Albumin (3.9-5) g/dL 03/19/17 03/19/17 03/19/17 Range/Units 08:00 08:00 08:06 WBC 16.3 H (4.5-11.0) K/mm3 RBC 3.15 L (3.65-5.03) M/mm3 Hgb 8.8 L (10.1-14.3) gm/dl Hct 27.3 L (30.3-42.9) % RDW 17.4 H (13.2-15.2) % Lymph % (Auto) 3.4 L (13.4-35.0) % [place] % (Auto) 10.1 H (0.0-7.3) % Lymph # 0.5 L (1.2-5.4) K/mm3 [place] # 1.7 H (0.0-0.8) K/mm3 Seg Neutrophils % 85.4 H (40.0-70.0) % Seg Neutrophils # 13.9 H (1.8-7.7) K/mm3 POC ABG pH 7.338 L (7.35-7.45) POC ABG pCO2 49.2 H (35-45) POC ABG pO2 110 H (80-105) Sodium 131 L (137-145) mmol/L Potassium (3.6-5.0) mmol/L Chloride 89.3 L (98-107) mmol/L BUN 56 H (7-17) mg/dL Creatinine 7.8 H (0.7-1.2) mg/dL Glucose 122 H (65-100) mg/dL POC Glucose (70-105) ALT 59 H (7-56) units/L Alkaline Phosphatase 208 H (35-129) units/L Albumin 2.6 L (3.9-5) g/dL Microbiology 03/16/17 21:51 Peripheral/Venous Blood Culture - Preliminary NO GROWTH AFTER 48 HOURS 03/16/17 21:43 Peripheral/Venous Blood Culture - Preliminary NO GROWTH AFTER 48 HOURS
[2017-03-19] MEDS: fentaNYL DRIP Premix 2,000 MCG/100 ML BAG IV SCH ×2 (12:53→16:59)
[2017-03-19] MEDS: DIPRIVAN 10 MG/ML 1,000 MG/100 ML BOTTLE IV SCH (12:55)
--- NOTE | 2017-03-19 14:24 | Progress Note ---
Assessment and Plan Assessment and plan: 66-year-old female presents to the emergency department complaining of chest pain after dialysis. While in triage, the patient went unresponsive, and without a pulse, No palpable pulses were identified. CPR was initiated under my supervision. Patient was placed on a surveillance monitor and ventricular fibrillation was noted. Patient was defibrillated a single time with 200 J. She received CPR protocol, was intubated and had ROSC, and she was then taken to the ICU. Postarrest ECG was consistent with anterior STEMI. Code STEMI was activated, she was taken to wharf lab[facility] and received angiogram ; stent x 2 in LAD noted to be patent Cardiovascular cardiac arrest; Vfib, STEMI, ACS Cardiology input appreciated, status post cath with patent stents discontinuing amiodarone drip, switched to Lopressor -Hypertension. Resume antihypertensive medications -Hyperlipidemia- Continue statin therapy Pulmonary Acute hypoxic respiratory failure, mech vent >96 hours Continue ventilator will continue to attempt to wean daily GI Nausea/Vomiting- Start on zofran Toxic metabolic encephalopathy EEG was reviewed, seizure is unlikely. encephalopathy most likely due to acute illness, cardiac arrest and IV sedation ID Sepsis syndrome; ID consult appreciated, Continue current empiric therapy. Follow clinically for localizing issues. WBC count is slowly downtrending. RENAL/FEN End stage renal disease on hemodialysis. Nephrology following. Continue hemodialysis Hyperkalemia-corrected with dialysis Diabetes mellitus type 2. Accu-Cheks and sliding scale insulin. Morbid obesity- counselling once extubated. Anemia of CKD. Follow H&H. Transfuse as necessary. History of breast cancer. 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 The aggregate critical care time was [35] minutes. This time is in addition to time spent performing reported procedures but includes the following: [x] Data Review and interpretation [x] Patient assessment and monitoring of vital signs [x] Documentation [x] Medication orders and management History Interval history: Patient is currently intubated, she obeys commands he nods her head today was a squeeze my hands. Hospitalist Physical - Physical exam Narrative exam: General: Patient appears well in no distress HEENT: MMM, EOMI cardiac: S1-S2 heard lungs: clear to auscultation, abdomen: soft, nontender, nondistended bowel sounds positive extremities: no edema clubbing or cyanosis Skin: no rash or lesion Neuro: Intubated, opens eyes of days, and shakes and nods heads. Psych: appropriate behavior and mood, cognition intact - Constitutional Vitals: Temp Pulse Resp BP Pulse Ox 99.4 F 73 12 122/44 99 03/19/17 12:00 03/19/17 14:00 03/19/17 14:00 03/19/17 14:00 03/19/17 14:00 General appearance: Present: no acute distress, well-nourished Results - Labs CBC & Chem 7: 03/25/17 04:38 03/25/17 04:38 Labs: Laboratory Last Values WBC 16.3 K/mm3 (4.5-11.0) H 03/19/17 08:00 RBC 3.15 M/mm3 (3.65-5.03) L 03/19/17 08:00 Hgb 8.8 gm/dl (10.1-14.3) L 03/19/17 08:00 Hct 27.3 % (30.3-42.9) L 03/19/17 08:00 MCV 87 fl (79-97) 03/19/17 08:00 MCH 28 pg (28-32) 03/19/17 08:00 MCHC 32 % (30-34) 03/19/17 08:00 RDW 17.4 % (13.2-15.2) H 03/19/17 08:00 Plt Count 187 K/mm3 (140-440) 03/19/17 08:00 Lymph % (Auto) 3.4 % (13.4-35.0) L 03/19/17 08:00 [place] % (Auto) 10.1 % (0.0-7.3) H 03/19/17 08:00 Eos % (Auto) 0.7 % (0.0-4.3) 03/19/17 08:00 Baso % (Auto) 0.4 % (0.0-1.8) 03/19/17 08:00 Lymph # 0.5 K/mm3 (1.2-5.4) L 03/19/17 08:00 [place] # 1.7 K/mm3 (0.0-0.8) H 03/19/17 08:00 Eos # 0.1 K/mm3 (0.0-0.4) 03/19/17 08:00 Baso # 0.1 K/mm3 (0.0-0.1) 03/19/17 08:00 Add Manual Diff Complete 03/17/17 03:42 Total Counted 100 03/17/17 03:42 Seg Neutrophils % 85.4 % (40.0-70.0) H 03/19/17 08:00 Seg Neuts % (Manual) 84.0 % (40.0-70.0) H 03/17/17 03:42 Band Neutrophils % 2.0 % 03/17/17 03:42 Lymphocytes % (Manual) 3.0 % (13.4-35.0) L 03/17/17 03:42 Reactive Lymphs % (Man) 0 % 03/17/17 03:42 Monocytes % (Manual) 11.0 % (0.0-7.3) H 03/17/17 03:42 Eosinophils % (Manual) 0 % (0.0-4.3) 03/17/17 03:42 Basophils % (Manual) 0 % (0.0-1.8) 03/17/17 03:42 Metamyelocytes % 0 % 03/17/17 03:42 Myelocytes % 0 % 03/17/17 03:42 Promyelocytes % 0 % 03/17/17 03:42 Blast Cells % 0 % 03/17/17 03:42 Nucleated RBC % Not Reportable 03/17/17 03:42 Seg Neutrophils # 13.9 K/mm3 (1.8-7.7) H 03/19/17 08:00 Seg Neutrophils # Man 17.3 K/mm3 (1.8-7.7) H 03/17/17 03:42 Band Neutrophils # 0.4 K/mm3 03/17/17 03:42 Lymphocytes # (Manual) 0.6 K/mm3 (1.2-5.4) L 03/17/17 03:42 Abs React Lymphs (Man) 0.0 K/mm3 03/17/17 03:42 Monocytes # (Manual) 2.3 K/mm3 (0.0-0.8) H 03/17/17 03:42 Eosinophils # (Manual) 0.0 K/mm3 (0.0-0.4) 03/17/17 03:42 Basophils # (Manual) 0.0 K/mm3 (0.0-0.1) 03/17/17 03:42 Metamyelocytes # 0.0 K/mm3 03/17/17 03:42 Myelocytes # 0.0 K/mm3 03/17/17 03:42 Promyelocytes # 0.0 K/mm3 03/17/17 03:42 Blast Cells # 0.0 K/mm3 03/17/17 03:42 WBC Morphology Not Reportable 03/17/17 03:42 Hypersegmented Neuts Not Reportable 03/17/17 03:42 Hyposegmented Neuts Not Reportable 03/17/17 03:42 Hypogranular Neuts Not Reportable 03/17/17 03:42 Smudge Cells Not Reportable 03/17/17 03:42 Toxic Granulation Not Reportable 03/17/17 03:42 Toxic Vacuolation Not Reportable 03/17/17 03:42 Dohle Bodies Not Reportable 03/17/17 03:42 Pelger-Huet Anomaly Not Reportable 03/17/17 03:42 Tunde Rods Not Reportable 03/17/17 03:42 Platelet Estimate Appears normal 03/17/17 03:42 Clumped Platelets Not Reportable 03/17/17 03:42 Plt Clumps, EDTA Not Reportable 03/17/17 03:42 Large Platelets Not Reportable 03/17/17 03:42 Giant Platelets Not Reportable 03/17/17 03:42 Platelet Satelliting Not Reportable 03/17/17 03:42 Plt Morphology Comment Not Reportable 03/17/17 03:42 RBC Morphology Not Reportable 03/17/17 03:42 Dimorphic RBCs Not Reportable 03/17/17 03:42 Polychromasia Not Reportable 03/17/17 03:42 Hypochromasia Not Reportable 03/17/17 03:42 Poikilocytosis Not Reportable 03/17/17 03:42 Anisocytosis 1+ 03/17/17 03:42 Microcytosis Not Reportable 03/17/17 03:42 Macrocytosis Not Reportable 03/17/17 03:42 Spherocytes Not Reportable 03/17/17 03:42 Pappenheimer Bodies Not Reportable 03/17/17 03:42 Sickle Cells Not Reportable 03/17/17 03:42 Target Cells Not Reportable 03/17/17 03:42 Tear Drop Cells Not Reportable 03/17/17 03:42 Ovalocytes Not Reportable 03/17/17 03:42 Helmet Cells Not Reportable 03/17/17 03:42 Shukla-Lytton Bodies Not Reportable 03/17/17 03:42 Martin Rings Not Reportable 03/17/17 03:42 [place] Cells Not Reportable 03/17/17 03:42 Bite Cells Not Reportable 03/17/17 03:42 Crenated Cell Not Reportable 03/17/17 03:42 Elliptocytes Not Reportable 03/17/17 03:42 Acanthocytes (Spur) Not Reportable 03/17/17 03:42 Rouleaux Not Reportable 03/17/17 03:42 Hemoglobin C Crystals Not Reportable 03/17/17 03:42 Schistocytes Not Reportable 03/17/17 03:42 Malaria parasites Not Reportable 03/17/17 03:42 Waylon Bodies Not Reportable 03/17/17 03:42 Hem Pathologist Commnt No 03/17/17 03:42 PT 13.4 Sec. (12.2-14.9) 03/16/17 11:07 INR 1.03 (0.87-1.13) 03/16/17 11:07 APTT 24.1 Sec. (24.2-36.6) L 03/16/17 11:07 Activated Clotting Time 125 (74-137) 03/17/17 08:23 Heparin Anti-Xa Level < 0.10 U.I./ml (0.3-0.7) L 03/17/17 21:12 POC ABG pH 7.338 (7.35-7.45) L 03/19/17 08:06 POC ABG pCO2 49.2 (35-45) H 03/19/17 08:06 POC ABG pO2 110 (80-105) H 03/19/17 08:06 POC ABG HCO3 26.4 03/19/17 08:06 POC ABG Total CO2 28 03/19/17 08:06 POC ABG O2 Sat 98 03/19/17 08:06 POC ABG Base Excess 1 03/19/17 08:06 FiO2 30 % 03/19/17 08:06 Sodium 131 mmol/L (137-145) L 03/19/17 08:00 Potassium 4.8 mmol/L (3.6-5.0) 03/19/17 08:00 Chloride 89.3 mmol/L (98-107) L 03/19/17 08:00 Carbon Dioxide 23 mmol/L (22-30) 03/19/17 08:00 Anion Gap 24 mmol/L 03/19/17 08:00 BUN 56 mg/dL (7-17) H 03/19/17 08:00 Creatinine 7.8 mg/dL (0.7-1.2) H 03/19/17 08:00 Estimated GFR 6 ml/min 03/19/17 08:00 BUN/Creatinine Ratio 7.17 % 03/19/17 08:00 Glucose 122 mg/dL (65-100) H 03/19/17 08:00 POC Glucose 172 (70-105) H 03/19/17 11:50 Lactic Acid 1.40 mmol/L (0.7-2.0) 03/17/17 19:50 Calcium 9.8 mg/dL (8.4-10.2) 03/19/17 08:00 Total Bilirubin 0.40 mg/dL (0.1-1.2) 03/19/17 08:00 AST 37 units/L (5-40) 03/19/17 08:00 ALT 59 units/L (7-56) H 03/19/17 08:00 Alkaline Phosphatase 208 units/L (35-129) H 03/19/17 08:00 Ammonia 38.0 umol/L (25-60) 03/18/17 19:02 Total Creatine Kinase 282 units/L (30-135) H 03/16/17 16:36 CK-MB (CK-2) 24.2 ng/mL (0.0-4.0) H 03/16/17 16:36 CK-MB (CK-2) Rel Index 8.5 (0-4) H 03/16/17 16:36 Troponin T 0.656 ng/mL (0.00-0.029) H* D 03/16/17 16:36 C-Reactive Protein 33.90 mg/dL (0.00-1.30) H 03/17/17 17:15 Total Protein 6.7 g/dL (6.3-8.2) 03/19/17 08:00 Albumin 2.6 g/dL (3.9-5) L 03/19/17 08:00 Albumin/Globulin Ratio 0.6 % 03/19/17 08:00 Triglycerides 134 mg/dL (2-149) 03/16/17 11:07 Cholesterol 228 mg/dL (50-199) H 03/16/17 11:07 LDL Cholesterol Direct 165 mg/dL (50-130) H 03/16/17 11:07 HDL Cholesterol 37 mg/dL (40-59) L 03/16/17 11:07 Cholesterol/HDL Ratio 6.16 % 03/16/17 11:07 TSH 0.746 mlU/mL (0.270-4.200) 03/18/17 19:02 Random Vancomycin 16.3 ug/mL (0-40.0) 03/19/17 04:31 Hepatitis A IgM Ab Non-reactive (NonReactive) 03/19/17 04:31 Hep Bs Antigen Non-reactive (Negative) 03/19/17 04:31 Hep B Core IgM Ab Non-reactive (NonReactive) 03/19/17 04:31 Hepatitis C Antibody Non-reactive (NonReactive) 03/19/17 04:31 Blood Type A POSITIVE 03/16/17 16:36 Antibody Screen TNR 03/16/17 16:36 CLAIR Antibody Screen Negative 03/16/17 16:36
[2017-03-19] MEDS: LEVAQUIN 500MG/100ML 500 MG/100 ML BAG IV SCH (17:00)
[2017-03-20] MEDS: REGLAN IV SCH ×4 (00:42→18:43)
[2017-03-20] MEDS: DIPRIVAN 10 MG/ML 1,000 MG/100 ML BOTTLE IV SCH (00:57)
[2017-03-20] MEDS: DUONEB *Not for PRN Use IH SCH ×4 (02:07→20:12)
[2017-03-20] MEDS: fentaNYL DRIP Premix 2,000 MCG/100 ML BAG IV SCH ×2 (04:39→18:54)
[2017-03-20 05:15] LABS: ISTAT Base Excess -2; ISTAT HCO3 24.6; ISTAT PCO2 51.4 (35-45); ISTAT PH 7.288 (7.35-7.45); ISTAT PO2 85 (80-105); ISTAT SO2 95; ISTAT TCO2 26
--- NOTE | 2017-03-20 08:31 | Progress Note ---
Assessment and Plan - Patient Problems (1) Acute hypoxemic respiratory failure Current Visit: Yes Status: Acute Plan to address problem: Aspiration precautions, HOB> 40 - VAP bundle addressed Lung protective strategies Analgesia and agitation/anxiety management VTE prophylaxis-on heparin infusion(anticoagulated) Stress ulcer prophylaxis Daily SAT/SBT unless otherwise contraindicated Enteric feeding, accuchecks with glycemic control- currently on hold secondary to vomiting Bronchodilators Adjust minute ventilation for better gas-exchange Start SBTs as tolerated (2) Cardiac arrest due to underlying cardiac condition Current Visit: Yes Status: Acute Plan to address problem: Continue cardioprotective measures s/p 2 stents to LAD (3) Seizure Current Visit: Yes Status: Acute Plan to address problem: Neurology following. (4) ESRD on dialysis Current Visit: Yes Status: Acute Plan to address problem: HD per renal service (5) Acute respiratory acidosis Current Visit: Yes Status: Acute Plan to address problem: Adjust minute ventilation Bronchodilators (6) Obesity (BMI 30-39.9) Current Visit: Yes Status: Acute Plan to address problem: Lifestyle modification after discharge Subjective Date of service: 03/20/17 Principal diagnosis: Acute Hypoxemic Resp Failure; STEMI Interval history: Seen and examined. Vitals ,labs, medications, chart reviewed. at the bedside. No acute overnight events noted. Tolerating tube feeding Currently on amiodarone and fentanyl infusion On mechanical ventilatory support-ETT, no patient ventilator dys-synchrony noted AC-VC 12/500/5/50% Discussed during interdisciplinary ICU rounds Objective - Exam Narrative Exam: General appearance: well-developed, well-nourished, appears stated age, intubated EENT: PERRL, mucous membranes moist Neck: no JVD, no thyromegaly, no carotid bruit, supple Respiratory: Present: Clear to Auscultation Cardiology: regular, rate and rhythm, S1,S2, no murmurs Gastrointestinal; Obese, normoactive bowel sounds Integumentary: no rash, other (AV fistula in her left upper arm. Good bruit and thrill) extremities: No cyanosis, no clubbing,no cyanosis. Left femoral CVC Vital Signs - 12hr 03/19/17 03/19/17 03/19/17 20:53 21:00 22:00 Temperature Pulse Rate 86 87 87 Pulse Rate [ Anterior Bilateral Throughout] Respiratory 12 12 13 Rate Respiratory Rate [Anterior Bilateral Throughout] Blood Pressure 123/57 125/48 133/52 O2 Sat by Pulse 97 98 98 Oximetry 03/19/17 03/19/17 03/20/17 23:00 23:58 00:00 Temperature 100.4 F H Pulse Rate 86 81 87 Pulse Rate [ Anterior Bilateral Throughout] Respiratory 11 L 15 Rate Respiratory Rate [Anterior Bilateral Throughout] Blood Pressure 126/53 130/50 130/50 O2 Sat by Pulse 99 98 97 Oximetry 03/20/17 03/20/17 03/20/17 01:00 02:00 02:07 Temperature Pulse Rate 87 89 Pulse Rate [ 87 Anterior Bilateral Throughout] Respiratory 12 12 Rate Respiratory 12 Rate [Anterior Bilateral Throughout] Blood Pressure 125/50 127/41 O2 Sat by Pulse 98 99 Oximetry 03/20/17 03/20/17 03/20/17 02:17 03:00 03:56 Temperature 100 F H Pulse Rate 93 H Pulse Rate [ 84 Anterior Bilateral Throughout] Respiratory 12 Rate Respiratory 12 Rate [Anterior Bilateral Throughout] Blood Pressure 149/67 O2 Sat by Pulse 98 Oximetry 03/20/17 03/20/17 03/20/17 04:00 04:15 05:00 Temperature Pulse Rate 88 89 92 H Pulse Rate [ Anterior Bilateral Throughout] Respiratory 11 L 12 Rate Respiratory Rate [Anterior Bilateral Throughout] Blood Pressure 120/45 149/67 115/79 O2 Sat by Pulse 98 97 96 Oximetry 03/20/17 03/20/17 03/20/17 06:00 07:54 08:00 Temperature Pulse Rate 90 106 H Pulse Rate [ 107 H Anterior Bilateral Throughout] Respiratory 10 L Rate Respiratory 18 Rate [Anterior Bilateral Throughout] Blood Pressure 139/58 138/56 O2 Sat by Pulse 98 101 H Oximetry Constitutional: no acute distress, other (intubated orally, ETT to vent) Eyes: non-icteric ENT: oropharynx moist Neck: supple, no lymphadenopathy Effort: normal, mildly labored Ascultation: Bilateral: diminished breath sounds, rales (scant in bases) Cardiovascular: regular rate and rhythm Gastrointestinal: normoactive bowel sounds, soft, non-tender, non-distended Integumentary: normal, other (Femoral CVC) Extremities: no cyanosis, no edema, pulses normal, no ischemia or petechiae Neurologic: non-focal exam (Moves all extremities, tracks my voice, attempts to vocalize in response to questions), unable to assess Psychiatric: other (unable to assess) CBC and BMP: 03/21/17 07:45 03/21/17 07:45 ABG, PT/INR, D-dimer: ABG POC ABG pH 7.288 (7.35-7.45) L 03/20/17 04:15 POC ABG pCO2 51.4 (35-45) H 03/20/17 04:15 POC ABG pO2 85 (80-105) 03/20/17 04:15 POC ABG HCO3 24.6 03/20/17 04:15 POC ABG Total CO2 26 03/20/17 04:15 POC ABG O2 Sat 95 03/20/17 04:15 PT/INR, D-dimer PT 13.4 Sec. (12.2-14.9) 03/16/17 11:07 INR 1.03 (0.87-1.13) 03/16/17 11:07 Abnormal lab findings: Abnormal Labs 03/16/17 03/16/17 03/17/17 16:36 18:00 03:42 WBC 20.6 H RBC Hgb Hct RDW 17.3 H Lymph % (Auto) [place] % (Auto) Lymph # [place] # Seg Neutrophils % Seg Neuts % (Manual) 84.0 H Lymphocytes % (Manual) 3.0 L Monocytes % (Manual) 11.0 H Seg Neutrophils # Seg Neutrophils # Man 17.3 H Lymphocytes # (Manual) 0.6 L Monocytes # (Manual) 2.3 H Heparin Anti-Xa Level POC ABG pH 7.336 L POC ABG pCO2 47.9 H POC ABG pO2 189 H Sodium Potassium Chloride Carbon Dioxide BUN Creatinine Glucose POC Glucose ALT Alkaline Phosphatase Total Creatine Kinase 282 H CK-MB (CK-2) 24.2 H CK-MB (CK-2) Rel Index 8.5 H Troponin T 0.656 H* D C-Reactive Protein Albumin 03/17/17 03/17/17 03/17/17 03:42 04:21 17:15 WBC RBC Hgb Hct RDW Lymph % (Auto) [place] % (Auto) Lymph # [place] # Seg Neutrophils % Seg Neuts % (Manual) Lymphocytes % (Manual) Monocytes % (Manual) Seg Neutrophils # Seg Neutrophils # Man Lymphocytes # (Manual) Monocytes # (Manual) Heparin Anti-Xa Level 0.10 L POC ABG pH POC ABG pCO2 POC ABG pO2 Sodium 131 L Potassium 5.3 H D Chloride 89.5 L Carbon Dioxide 21 L BUN 39 H Creatinine 7.0 H Glucose 151 H POC Glucose ALT Alkaline Phosphatase Total Creatine Kinase CK-MB (CK-2) CK-MB (CK-2) Rel Index Troponin T C-Reactive Protein 33.90 H Albumin 03/17/17 03/18/17 03/18/17 21:12 03:33 03:33 WBC 17.6 H RBC 3.59 L Hgb Hct RDW 16.9 H Lymph % (Auto) 4.2 L [place] % (Auto) 11.8 H Lymph # 0.7 L [place] # 2.1 H Seg Neutrophils % 83.3 H Seg Neuts % (Manual) Lymphocytes % (Manual) Monocytes % (Manual) Seg Neutrophils # 14.7 H Seg Neutrophils # Man Lymphocytes # (Manual) Monocytes # (Manual) Heparin Anti-Xa Level < 0.10 L POC ABG pH POC ABG pCO2 POC ABG pO2 Sodium 127 L Potassium 6.1 H* Chloride 87.2 L Carbon Dioxide BUN 55 H Creatinine 8.7 H Glucose 140 H POC Glucose ALT Alkaline Phosphatase Total Creatine Kinase CK-MB (CK-2) CK-MB (CK-2) Rel Index Troponin T C-Reactive Protein Albumin 03/18/17 03/18/17 03/19/17 04:34 22:15 00:04 WBC RBC Hgb Hct RDW Lymph % (Auto) [place] % (Auto) Lymph # [place] # Seg Neutrophils % Seg Neuts % (Manual) Lymphocytes % (Manual) Monocytes % (Manual) Seg Neutrophils # Seg Neutrophils # Man Lymphocytes # (Manual) Monocytes # (Manual) Heparin Anti-Xa Level POC ABG pH 7.289 L POC ABG pCO2 48.7 H POC ABG pO2 Sodium Potassium 5.6 H Chloride Carbon Dioxide BUN Creatinine Glucose POC Glucose 108 H ALT Alkaline Phosphatase Total Creatine Kinase CK-MB (CK-2) CK-MB (CK-2) Rel Index Troponin T C-Reactive Protein Albumin 03/19/17 03/19/17 03/19/17 05:22 08:00 08:00 WBC 16.3 H RBC 3.15 L Hgb 8.8 L Hct 27.3 L RDW 17.4 H Lymph % (Auto) 3.4 L [place] % (Auto) 10.1 H Lymph # 0.5 L [place] # 1.7 H Seg Neutrophils % 85.4 H Seg Neuts % (Manual) Lymphocytes % (Manual) Monocytes % (Manual) Seg Neutrophils # 13.9 H Seg Neutrophils # Man Lymphocytes # (Manual) Monocytes # (Manual) Heparin Anti-Xa Level POC ABG pH POC ABG pCO2 POC ABG pO2 Sodium 131 L Potassium Chloride 89.3 L Carbon Dioxide BUN 56 H Creatinine 7.8 H Glucose 122 H POC Glucose 146 H ALT 59 H Alkaline Phosphatase 208 H Total Creatine Kinase CK-MB (CK-2) CK-MB (CK-2) Rel Index Troponin T C-Reactive Protein Albumin 2.6 L 03/19/17 03/19/17 03/19/17 08:06 11:50 17:36 WBC RBC Hgb Hct RDW Lymph % (Auto) [place] % (Auto) Lymph # [place] # Seg Neutrophils % Seg Neuts % (Manual) Lymphocytes % (Manual) Monocytes % (Manual) Seg Neutrophils # Seg Neutrophils # Man Lymphocytes # (Manual) Monocytes # (Manual) Heparin Anti-Xa Level POC ABG pH 7.338 L POC ABG pCO2 49.2 H POC ABG pO2 110 H Sodium Potassium Chloride Carbon Dioxide BUN Creatinine Glucose POC Glucose 172 H 152 H ALT Alkaline Phosphatase Total Creatine Kinase CK-MB (CK-2) CK-MB (CK-2) Rel Index Troponin T C-Reactive Protein Albumin 03/20/17 03/20/17 03/20/17 00:14 04:15 05:06 WBC RBC Hgb Hct RDW Lymph % (Auto) [place] % (Auto) Lymph # [place] # Seg Neutrophils % Seg Neuts % (Manual) Lymphocytes % (Manual) Monocytes % (Manual) Seg Neutrophils # Seg Neutrophils # Man Lymphocytes # (Manual) Monocytes # (Manual) Heparin Anti-Xa Level POC ABG pH 7.288 L POC ABG pCO2 51.4 H POC ABG pO2 Sodium Potassium Chloride Carbon Dioxide BUN Creatinine Glucose POC Glucose 132 H 166 H ALT Alkaline Phosphatase Total Creatine Kinase CK-MB (CK-2) CK-MB (CK-2) Rel Index Troponin T C-Reactive Protein Albumin Allied health notes reviewed: RT
--- NOTE | 2017-03-20 09:05 | Progress Note ---
Assessment and Plan Impression * End-stage renal disease on maintenance hemodialysis * Status post V. fib cardiac arrest * Hypertension * s/p PCI * Diabetes * History of breast cancer * Anemia secondary to ESRD * Hyperlipidemia Recommendations * dialysis qMWF and prn * low k bath with hd * uf as tolerated * AV fistula is still functional. Has a good bruit and thrill * No IV BP or venipuncture access arm * Adjust diet and meds for ESRD state * Her outpatient days are Tuesdays and Saturdays Subjective Date of service: 03/20/17 Principal diagnosis: Acute Hypoxemic Resp Failure; STEMI Interval history: resting in bed, events noted Objective - Exam Narrative Exam: General appearance: well-developed, well-nourished, appears stated age, intubated EENT: PERRL, mucous membranes moist Neck: no JVD, no thyromegaly, no carotid bruit, supple Respiratory: Present: Clear to Ascultation Cardiology: regular, normal heart rate Gastrointestinal: normal, normoactive bowel sounds Integumentary: no rash, other (AV fistula in her left upper arm. Good bruit and thrill) - Vital Signs Vital signs: Vital Signs - 12hr 03/19/17 03/19/17 03/19/17 22:00 23:00 23:58 Temperature Pulse Rate 87 86 81 Pulse Rate [ Anterior Bilateral Throughout] Respiratory 13 11 L Rate Respiratory Rate [Anterior Bilateral Throughout] Blood Pressure 133/52 126/53 130/50 O2 Sat by Pulse 98 99 98 Oximetry 03/20/17 03/20/17 03/20/17 00:00 01:00 02:00 Temperature 100.4 F H Pulse Rate 87 87 89 Pulse Rate [ Anterior Bilateral Throughout] Respiratory 15 12 12 Rate Respiratory Rate [Anterior Bilateral Throughout] Blood Pressure 130/50 125/50 127/41 O2 Sat by Pulse 97 98 99 Oximetry 03/20/17 03/20/17 03/20/17 02:07 02:17 03:00 Temperature Pulse Rate 93 H Pulse Rate [ 87 84 Anterior Bilateral Throughout] Respiratory 12 Rate Respiratory 12 12 Rate [Anterior Bilateral Throughout] Blood Pressure 149/67 O2 Sat by Pulse 98 Oximetry 03/20/17 03/20/17 03/20/17 03:56 04:00 04:15 Temperature 100 F H Pulse Rate 88 89 Pulse Rate [ Anterior Bilateral Throughout] Respiratory 11 L Rate Respiratory Rate [Anterior Bilateral Throughout] Blood Pressure 120/45 149/67 O2 Sat by Pulse 98 97 Oximetry 03/20/17 03/20/17 03/20/17 05:00 06:00 07:54 Temperature Pulse Rate 92 H 90 106 H Pulse Rate [ Anterior Bilateral Throughout] Respiratory 12 10 L Rate Respiratory Rate [Anterior Bilateral Throughout] Blood Pressure 115/79 139/58 138/56 O2 Sat by Pulse 96 98 101 H Oximetry 03/20/17 03/20/17 08:00 08:49 Temperature Pulse Rate Pulse Rate [ 107 H 92 H Anterior Bilateral Throughout] Respiratory Rate Respiratory 18 17 Rate [Anterior Bilateral Throughout] Blood Pressure O2 Sat by Pulse Oximetry - Lab 03/19/17 08:00 03/19/17 08:00 Most recent lab results Calcium 9.8 mg/dL (8.4-10.2) 03/19/17 08:00
[2017-03-20] MEDS: HEPARIN SUB-Q SCH (10:55)
[2017-03-20] MEDS: PLAVIX PO SCH (10:55)
[2017-03-20] MEDS: PEPCID IV SCH ×2 (10:55→21:37)
--- NOTE | 2017-03-20 11:01 | Progress Note ---
Assessment and Plan - Patient Problems (1) Sepsis syndrome Current Visit: Yes Status: Acute Plan to address problem: 1. Slowly improving. 2. Continue current antibiotic regimen. Subjective Date of service: 03/20/17 Principal diagnosis: Acute Hypoxemic Resp Failure; STEMI Interval history: Remains afebrile in ICU with slowly downtrending WBC count. No new events. Objective - Exam Narrative Exam: intubated, restless, Fi O2 30% - Constitutional Vitals: Vital Signs Temp Pulse Resp BP Pulse Ox 97.7 F 92 H 17 138/56 101 H 03/20/17 08:00 03/20/17 08:49 03/20/17 08:49 03/20/17 07:54 03/20/17 07:54 Temperature -Last 24 Hours Temperature 97.7 F Temperature 100 F Temperature 100 F Temperature 100.4 F Temperature 100 F Temperature 99.1 F Temperature 99.1 F Temperature 99.4 F General appearance: Present: obese - EENT ENT: other (ET and NG tubes in place) - Neck Neck: supple - Respiratory Respiratory: bilateral: CTA, negative: rales - Cardiovascular Rhythm: regular Heart Sounds: Present: S1 & S2 Extremities: No edema - Gastrointestinal General gastrointestinal: Present: soft, non-distended, hypoactive bowel sounds - Integumentary Integumentary: no jaundice, no rash - Neurologic Neurologic: moves all extremities, other (sedated) - Labs CBC & Chem 7: 03/19/17 08:00 03/19/17 08:00 Labs: Abnormal lab results 03/19/17 03/19/17 03/20/17 Range/Units 11:50 17:36 00:14 POC ABG pH (7.35-7.45) POC ABG pCO2 (35-45) POC Glucose 172 H 152 H 132 H (70-105) 03/20/17 03/20/17 Range/Units 04:15 05:06 POC ABG pH 7.288 L (7.35-7.45) POC ABG pCO2 51.4 H (35-45) POC Glucose 166 H (70-105) Microbiology 03/16/17 21:51 Peripheral/Venous Blood Culture - Preliminary NO GROWTH AFTER 72 HOURS 03/16/17 21:43 Peripheral/Venous Blood Culture - Preliminary NO GROWTH AFTER 72 HOURS
[2017-03-20] MEDS: LOPRESSOR PO SCH ×3 (11:10→21:36)
--- NOTE | 2017-03-20 11:48 | Progress Note ---
Assessment and Plan Assessment and plan: 66-year-old female presents to the emergency department complaining of chest pain after dialysis. While in triage, the patient went unresponsive, and without a pulse, No palpable pulses were identified. Patient was placed on a threat monitoring analyst and ventricular fibrillation was noted. Patient was defibrillated a single time with 200 J. She received CPR protocol, was intubated and had ROSC, and she was then taken to the ICU. Postarrest ECG was consistent with anterior STEMI. Code STEMI was activated, she was taken to [facility] and received angiogram ; stent x 2 in LAD noted to be patent, but had distal LAD spasm Cardiovascular cardiac arrest; Vfib, STEMI, ACS, Distal LAD spasm Cardiology input appreciated, status post cath with patent stents she was rx with amio drip, received heparin ggt x 24 hours, received Dopamine drip for Cardiogenic shock and hypotension, currently on Lopressor -Hypertension. continue antihypertensive medications -Hyperlipidemia- Continue statin therapy Pulmonary Acute hypoxic respiratory failure, mech vent >96 hours Continue ventilator will continue to attempt to wean daily GI Nausea/Vomiting- Start on zofran, now resolved Toxic metabolic encephalopathy EEG was reviewed, seizure is unlikely. encephalopathy most likely due to acute illness, cardiac arrest and IV sedation now improved, Neurology input appreciated ID Sepsis syndrome; ID consult appreciated, Continue current empiric therapy. Follow clinically for localizing issues. WBC count is slowly downtrending. RENAL/FEN End stage renal disease on hemodialysis. Nephrology following. Continue hemodialysis Hyperkalemia-corrected with dialysis Diabetes mellitus type 2. Accu-Cheks and sliding scale insulin. Morbid obesity- counselling once extubated. Anemia of CKD. Follow H&H. Transfuse as necessary. History of breast cancer. DVT/GI PROPHY Discussed plan with family and Digital Strategist Senior Manager and electrical supervisor The high probability of a clinically significant, sudden or life threatening deterioration of the [cardiac, pulmonary, Neurology ] system(s) required my full and direct attention, intervention and personal management. The aggregate critical care time was [35] minutes. This time is in addition to time spent performing reported procedures but includes the following: [x] Data Review and interpretation [x] Patient assessment and monitoring of vital signs [x] Documentation [x] Medication orders and management . History Interval history: Patient is currently intubated, she obeys commands he nods her head today was a squeeze my hands. Hospitalist Physical - Physical exam Narrative exam: General: Patient appears well in no distress HEENT: MMM, EOMI cardiac: S1-S2 heard lungs: clear to auscultation, abdomen: soft, nontender, nondistended bowel sounds positive extremities: no edema clubbing or cyanosis Skin: no rash or lesion Neuro: Intubated, opens eyes of days, and shakes and nods heads. Psych: appropriate behavior and mood, cognition intact - Constitutional Vitals: Temp Pulse Resp BP Pulse Ox 97.7 F 95 H 17 165/51 95 03/20/17 08:00 03/20/17 11:35 03/20/17 08:49 03/20/17 11:35 03/20/17 11:35 General appearance: Present: no acute distress, well-nourished Results - Labs CBC & Chem 7: 03/25/17 04:38 03/25/17 04:38 Labs: Laboratory Last Values WBC 16.3 K/mm3 (4.5-11.0) H 03/19/17 08:00 RBC 3.15 M/mm3 (3.65-5.03) L 03/19/17 08:00 Hgb 8.8 gm/dl (10.1-14.3) L 03/19/17 08:00 Hct 27.3 % (30.3-42.9) L 03/19/17 08:00 MCV 87 fl (79-97) 03/19/17 08:00 MCH 28 pg (28-32) 03/19/17 08:00 MCHC 32 % (30-34) 03/19/17 08:00 RDW 17.4 % (13.2-15.2) H 03/19/17 08:00 Plt Count 187 K/mm3 (140-440) 03/19/17 08:00 Lymph % (Auto) 3.4 % (13.4-35.0) L 03/19/17 08:00 [place] % (Auto) 10.1 % (0.0-7.3) H 03/19/17 08:00 Eos % (Auto) 0.7 % (0.0-4.3) 03/19/17 08:00 Baso % (Auto) 0.4 % (0.0-1.8) 03/19/17 08:00 Lymph # 0.5 K/mm3 (1.2-5.4) L 03/19/17 08:00 [place] # 1.7 K/mm3 (0.0-0.8) H 03/19/17 08:00 Eos # 0.1 K/mm3 (0.0-0.4) 03/19/17 08:00 Baso # 0.1 K/mm3 (0.0-0.1) 03/19/17 08:00 Add Manual Diff Complete 03/17/17 03:42 Total Counted 100 03/17/17 03:42 Seg Neutrophils % 85.4 % (40.0-70.0) H 03/19/17 08:00 Seg Neuts % (Manual) 84.0 % (40.0-70.0) H 03/17/17 03:42 Band Neutrophils % 2.0 % 03/17/17 03:42 Lymphocytes % (Manual) 3.0 % (13.4-35.0) L 03/17/17 03:42 Reactive Lymphs % (Man) 0 % 03/17/17 03:42 Monocytes % (Manual) 11.0 % (0.0-7.3) H 03/17/17 03:42 Eosinophils % (Manual) 0 % (0.0-4.3) 03/17/17 03:42 Basophils % (Manual) 0 % (0.0-1.8) 03/17/17 03:42 Metamyelocytes % 0 % 03/17/17 03:42 Myelocytes % 0 % 03/17/17 03:42 Promyelocytes % 0 % 03/17/17 03:42 Blast Cells % 0 % 03/17/17 03:42 Nucleated RBC % Not Reportable 03/17/17 03:42 Seg Neutrophils # 13.9 K/mm3 (1.8-7.7) H 03/19/17 08:00 Seg Neutrophils # Man 17.3 K/mm3 (1.8-7.7) H 03/17/17 03:42 Band Neutrophils # 0.4 K/mm3 03/17/17 03:42 Lymphocytes # (Manual) 0.6 K/mm3 (1.2-5.4) L 03/17/17 03:42 Abs React Lymphs (Man) 0.0 K/mm3 03/17/17 03:42 Monocytes # (Manual) 2.3 K/mm3 (0.0-0.8) H 03/17/17 03:42 Eosinophils # (Manual) 0.0 K/mm3 (0.0-0.4) 03/17/17 03:42 Basophils # (Manual) 0.0 K/mm3 (0.0-0.1) 03/17/17 03:42 Metamyelocytes # 0.0 K/mm3 03/17/17 03:42 Myelocytes # 0.0 K/mm3 03/17/17 03:42 Promyelocytes # 0.0 K/mm3 03/17/17 03:42 Blast Cells # 0.0 K/mm3 03/17/17 03:42 WBC Morphology Not Reportable 03/17/17 03:42 Hypersegmented Neuts Not Reportable 03/17/17 03:42 Hyposegmented Neuts Not Reportable 03/17/17 03:42 Hypogranular Neuts Not Reportable 03/17/17 03:42 Smudge Cells Not Reportable 03/17/17 03:42 Toxic Granulation Not Reportable 03/17/17 03:42 Toxic Vacuolation Not Reportable 03/17/17 03:42 Dohle Bodies Not Reportable 03/17/17 03:42 Pelger-Huet Anomaly Not Reportable 03/17/17 03:42 Tunde Rods Not Reportable 03/17/17 03:42 Platelet Estimate Appears normal 03/17/17 03:42 Clumped Platelets Not Reportable 03/17/17 03:42 Plt Clumps, EDTA Not Reportable 03/17/17 03:42 Large Platelets Not Reportable 03/17/17 03:42 Giant Platelets Not Reportable 03/17/17 03:42 Platelet Satelliting Not Reportable 03/17/17 03:42 Plt Morphology Comment Not Reportable 03/17/17 03:42 RBC Morphology Not Reportable 03/17/17 03:42 Dimorphic RBCs Not Reportable 03/17/17 03:42 Polychromasia Not Reportable 03/17/17 03:42 Hypochromasia Not Reportable 03/17/17 03:42 Poikilocytosis Not Reportable 03/17/17 03:42 Anisocytosis 1+ 03/17/17 03:42 Microcytosis Not Reportable 03/17/17 03:42 Macrocytosis Not Reportable 03/17/17 03:42 Spherocytes Not Reportable 03/17/17 03:42 Pappenheimer Bodies Not Reportable 03/17/17 03:42 Sickle Cells Not Reportable 03/17/17 03:42 Target Cells Not Reportable 03/17/17 03:42 Tear Drop Cells Not Reportable 03/17/17 03:42 Ovalocytes Not Reportable 03/17/17 03:42 Helmet Cells Not Reportable 03/17/17 03:42 Shukla-Ophiem Bodies Not Reportable 03/17/17 03:42 [place] Rings Not Reportable 03/17/17 03:42 [place] Cells Not Reportable 03/17/17 03:42 Bite Cells Not Reportable 03/17/17 03:42 Crenated Cell Not Reportable 03/17/17 03:42 Elliptocytes Not Reportable 03/17/17 03:42 Acanthocytes (Spur) Not Reportable 03/17/17 03:42 Rouleaux Not Reportable 03/17/17 03:42 Hemoglobin C Crystals Not Reportable 03/17/17 03:42 Schistocytes Not Reportable 03/17/17 03:42 Malaria parasites Not Reportable 03/17/17 03:42 [place] Bodies Not Reportable 03/17/17 03:42 Hem Pathologist Commnt No 03/17/17 03:42 PT 13.4 Sec. (12.2-14.9) 03/16/17 11:07 INR 1.03 (0.87-1.13) 03/16/17 11:07 APTT 24.1 Sec. (24.2-36.6) L 03/16/17 11:07 Activated Clotting Time 125 (74-137) 03/17/17 08:23 Heparin Anti-Xa Level < 0.10 U.I./ml (0.3-0.7) L 03/17/17 21:12 POC ABG pH 7.288 (7.35-7.45) L 03/20/17 04:15 POC ABG pCO2 51.4 (35-45) H 03/20/17 04:15 POC ABG pO2 85 (80-105) 03/20/17 04:15 POC ABG HCO3 24.6 03/20/17 04:15 POC ABG Total CO2 26 03/20/17 04:15 POC ABG O2 Sat 95 03/20/17 04:15 POC ABG Base Excess -2 03/20/17 04:15 FiO2 30 % 03/20/17 04:15 Sodium 131 mmol/L (137-145) L 03/19/17 08:00 Potassium 4.8 mmol/L (3.6-5.0) 03/19/17 08:00 Chloride 89.3 mmol/L (98-107) L 03/19/17 08:00 Carbon Dioxide 23 mmol/L (22-30) 03/19/17 08:00 Anion Gap 24 mmol/L 03/19/17 08:00 BUN 56 mg/dL (7-17) H 03/19/17 08:00 Creatinine 7.8 mg/dL (0.7-1.2) H 03/19/17 08:00 Estimated GFR 6 ml/min 03/19/17 08:00 BUN/Creatinine Ratio 7.17 % 03/19/17 08:00 Glucose 122 mg/dL (65-100) H 03/19/17 08:00 POC Glucose 166 (70-105) H 03/20/17 05:06 Lactic Acid 1.40 mmol/L (0.7-2.0) 03/17/17 19:50 Calcium 9.8 mg/dL (8.4-10.2) 03/19/17 08:00 Total Bilirubin 0.40 mg/dL (0.1-1.2) 03/19/17 08:00 AST 37 units/L (5-40) 03/19/17 08:00 ALT 59 units/L (7-56) H 03/19/17 08:00 Alkaline Phosphatase 208 units/L (35-129) H 03/19/17 08:00 Ammonia 38.0 umol/L (25-60) 03/18/17 19:02 Total Creatine Kinase 282 units/L (30-135) H 03/16/17 16:36 CK-MB (CK-2) 24.2 ng/mL (0.0-4.0) H 03/16/17 16:36 CK-MB (CK-2) Rel Index 8.5 (0-4) H 03/16/17 16:36 Troponin T 0.656 ng/mL (0.00-0.029) H* D 03/16/17 16:36 C-Reactive Protein 33.90 mg/dL (0.00-1.30) H 03/17/17 17:15 Total Protein 6.7 g/dL (6.3-8.2) 03/19/17 08:00 Albumin 2.6 g/dL (3.9-5) L 03/19/17 08:00 Albumin/Globulin Ratio 0.6 % 03/19/17 08:00 Triglycerides 134 mg/dL (2-149) 03/16/17 11:07 Cholesterol 228 mg/dL (50-199) H 03/16/17 11:07 LDL Cholesterol Direct 165 mg/dL (50-130) H 03/16/17 11:07 HDL Cholesterol 37 mg/dL (40-59) L 03/16/17 11:07 Cholesterol/HDL Ratio 6.16 % 03/16/17 11:07 TSH 0.746 mlU/mL (0.270-4.200) 03/18/17 19:02 Random Vancomycin 16.3 ug/mL (0-40.0) 03/19/17 04:31 Hepatitis A IgM Ab Non-reactive (NonReactive) 03/19/17 04:31 Hep Bs Antigen Non-reactive (Negative) 03/19/17 04:31 Hep B Core IgM Ab Non-reactive (NonReactive) 03/19/17 04:31 Hepatitis C Antibody Non-reactive (NonReactive) 03/19/17 04:31 Blood Type A POSITIVE 03/16/17 16:36 Antibody Screen TNR 03/16/17 16:36 CLAIR Antibody Screen Negative 03/16/17 16:36
--- NOTE | 2017-03-20 13:12 | Progress Note ---
Assessment and Plan Cont present cardiac regimen. Await echo. The patient has been seen in conjunction with Dr. Velasco who agrees with the assessment and plan of care. - Patient Problems (1) Cardiac arrest Current Visit: Yes Status: Acute (2) STEMI (ST elevation myocardial infarction) Current Visit: Yes Status: Acute Qualifiers: Involved coronary artery: unspecified coronary artery Qualified Code(s): I21.3 - ST elevation (STEMI) myocardial infarction of unspecified site (3) Acute hypoxemic respiratory failure Current Visit: Yes Status: Acute (4) Hypotension Current Visit: Yes Status: Acute Qualifiers: Hypotension type: H Trimester: T (5) ESRD on dialysis Current Visit: Yes Status: Acute Subjective Date of service: 03/20/17 Principal diagnosis: Acute Hypoxemic Resp Failure; STEMI Interval history: Pt remains intubated, on CPAP trial. VSS, off pressors. Family at bedside. Objective Last Vital Signs Temp 99.2 F 03/20/17 13:05 Pulse 95 H 03/20/17 11:35 Resp 17 03/20/17 08:49 BP 165/51 03/20/17 11:35 Pulse Ox 95 03/20/17 11:35 - Physical Examination General: No Apparent Distress HEENT: Positive: Normocephaly, Mucus Membranes Moist Neck: Positive: neck supple, trachea midline Cardiac: Positive: Reg Rate and Rhythm, S1/S2 Lungs: Positive: clear to auscultation Neuro: Positive: Grossly Intact Abdomen: Positive: Soft, Active Bowel Sounds Skin: Negative: Clear, Rash Musculoskeletal: No Fluid Collection Extremities: Absent: edema - Telemetry EKG Rhythm: Sinus Rhythm - Allied health notes Allied health notes reviewed: RT
[2017-03-20] MEDS ORDERED: VANCOMYCIN 1,250 MG in NACL 0.9% 250ML 250 ML IV ONE (16:00)
[2017-03-20] MEDS: PROCRIT IV PRN (18:00)
[2017-03-21] MEDS: REGLAN IV SCH ×4 (00:08→17:42)
[2017-03-21] MEDS: fentaNYL DRIP Premix 2,000 MCG/100 ML BAG IV SCH ×5 (01:01→20:36)
[2017-03-21] MEDS: DUONEB *Not for PRN Use IH SCH ×4 (02:04→20:12)
[2017-03-21 05:40] LABS: ISTAT Base Excess 3; ISTAT HCO3 29.3; ISTAT PCO2 56.8 (35-45); ISTAT PH 7.321 (7.35-7.45); ISTAT PO2 73 (80-105); ISTAT SO2 93; ISTAT TCO2 31
--- NOTE | 2017-03-21 08:14 | Progress Note ---
Assessment and Plan - Patient Problems (1) Sepsis syndrome Current Visit: Yes Status: Acute Plan to address problem: Will obtain culture of tracheal aspirate and broaden coverage to Cefepime. Continue empiric Vancomycin, also. Follow clinically. Subjective Date of service: 03/21/17 Principal diagnosis: Acute Hypoxemic Resp Failure; STEMI Interval history: Febrile to 102 F this AM. Increased secretions per ET reported. FiO2 requirement remains stable. No other new clinical events. Objective - Constitutional Vitals: Vital Signs Temp Pulse Resp BP Pulse Ox 100.3 F H 89 13 128/55 93 03/21/17 04:00 03/21/17 06:00 03/21/17 06:00 03/21/17 06:00 03/21/17 06:00 Temperature -Last 24 Hours Temperature 100.3 F Temperature 99.8 F Temperature 99.8 F Temperature 99.7 F Temperature 99.4 F Temperature 99.2 F Temperature 99.2 F Temperature 99.2 F General appearance: Present: no acute distress, obese - EENT ENT: other (ET and NG tubes) - Respiratory Respiratory: negative: rales, rhonchi - Cardiovascular Rhythm: regular Heart Sounds: Present: S1 & S2 Extremity abnormal: edema (trace) - Gastrointestinal General gastrointestinal: Present: soft, non-distended - Integumentary Integumentary: no jaundice, no rash - Neurologic Neurologic: other (sedated) - Additional findings Additional findings: left femoral TLC - Labs CBC & Chem 7: 03/21/17 07:45 03/19/17 08:00 Labs: Abnormal lab results 03/20/17 03/20/17 03/20/17 Range/Units 12:07 15:45 17:41 POC ABG pH (7.35-7.45) POC ABG pCO2 (35-45) POC ABG pO2 (80-105) POC Glucose 193 H 172 H 156 H (70-105) 03/20/17 03/21/17 03/21/17 Range/Units 23:13 04:42 05:41 POC ABG pH 7.321 L (7.35-7.45) POC ABG pCO2 56.8 H (35-45) POC ABG pO2 73 L (80-105) POC Glucose 141 H 159 H (70-105) Microbiology 03/16/17 21:51 Peripheral/Venous Blood Culture - Preliminary NO GROWTH AFTER 4 DAYS 03/16/17 21:43 Peripheral/Venous Blood Culture - Preliminary NO GROWTH AFTER 4 DAYS
[2017-03-21] MEDS: LOPRESSOR PO SCH ×3 (08:16→20:16)
[2017-03-21] MEDS: TYLENOL FEEDTUBE PRN ×2 (08:16→16:47)
[2017-03-21 08:21] LABS: Basophils % (Auto) 0.3 % (0.0-1.8); Eosinophils % (Auto) 0.4 % (0.0-4.3); Hematocrit 28.9 % (30.3-42.9); Hemoglobin 9.2 gm/dl (10.1-14.3); Mean Corpuscular HGB Conc 32 % (30-34); Mean Corpuscular Hemoglobin 28 pg (28-32); Mean Corpuscular Volume 87 fl (79-97); Platelet Count 213 K/mm3 (140-440); Red Blood Count 3.32 M/mm3 (3.65-5.03); Red Cell Distribution Width 17.4 % (13.2-15.2); White Blood Count 15.1 K/mm3 (4.5-11.0)
[2017-03-21 08:47] LABS: Albumin 2.8 g/dL (3.9-5); Albumin/Globulin Ratio 0.6 %; BUN/Creatinine Ratio 7.97; Bilirubin,Total 0.5 mg/dL (0.1-1.2); Calcium 9.9 mg/dL (8.4-10.2); Chloride 95.4 mmol/L (98-107); Potassium 4.6 mmol/L (3.6-5.0); Total Protein 7.3 g/dL (6.3-8.2)
[2017-03-21] MEDS ORDERED: MAXIPIME/NS 1 GM/100 ML 1 GM/100 ML BAG IV ONE (10:00)
[2017-03-21] MEDS: HEPARIN SUB-Q SCH (10:30)
[2017-03-21] MEDS: PLAVIX PO SCH (10:30)
[2017-03-21] MEDS: PEPCID IV SCH ×2 (10:30→21:26)
[2017-03-21] MEDS ORDERED: SUBLIMAZE IV PRN (10:30)
--- NOTE | 2017-03-21 10:55 | Progress Note ---
Assessment and Plan Impression * End-stage renal disease on maintenance hemodialysis * Status post V. fib cardiac arrest * Hypertension * s/p PCI * Diabetes * History of breast cancer * Anemia secondary to ESRD * Hyperlipidemia Recommendations * dialysis qMWF and prn * low k bath with hd * uf as tolerated * AV fistula is still functional. Has a good bruit and thrill * No IV BP or venipuncture access arm * Adjust diet and meds for ESRD state * Her outpatient days are Tuesdays and Saturdays Subjective Date of service: 03/21/17 Principal diagnosis: Acute Hypoxemic Resp Failure; STEMI Interval history: resting in bed, events noted Objective - Exam Narrative Exam: General appearance: well-developed, well-nourished, appears stated age, intubated EENT: PERRL, mucous membranes moist Neck: no JVD, no thyromegaly, no carotid bruit, supple Respiratory: Present: Clear to Ascultation Cardiology: regular, normal heart rate Gastrointestinal: normal, normoactive bowel sounds Integumentary: no rash, other (AV fistula in her left upper arm. Good bruit and thrill) - Vital Signs Vital signs: Vital Signs - 12hr 03/20/17 03/20/17 03/21/17 23:01 23:47 00:00 Temperature 99.8 F H Pulse Rate 84 82 Pulse Rate [ Anterior Bilateral Throughout] Respiratory 12 12 Rate Respiratory Rate [Anterior Bilateral Throughout] Blood Pressure 142/54 119/47 O2 Sat by Pulse 98 97 Oximetry 03/21/17 03/21/17 03/21/17 00:20 01:00 02:00 Temperature Pulse Rate 85 87 95 H Pulse Rate [ Anterior Bilateral Throughout] Respiratory 12 12 Rate Respiratory Rate [Anterior Bilateral Throughout] Blood Pressure 117/49 123/47 143/60 O2 Sat by Pulse 98 98 99 Oximetry 03/21/17 03/21/17 03/21/17 02:05 02:14 03:00 Temperature Pulse Rate 91 H Pulse Rate [ 88 89 Anterior Bilateral Throughout] Respiratory 12 Rate Respiratory 12 12 Rate [Anterior Bilateral Throughout] Blood Pressure 129/56 O2 Sat by Pulse 98 Oximetry 03/21/17 03/21/17 03/21/17 04:00 04:42 05:00 Temperature 100.3 F H Pulse Rate 94 H 90 91 H Pulse Rate [ Anterior Bilateral Throughout] Respiratory 12 14 Rate Respiratory Rate [Anterior Bilateral Throughout] Blood Pressure 127/55 133/63 145/66 O2 Sat by Pulse 97 96 96 Oximetry 03/21/17 03/21/17 03/21/17 06:00 08:00 08:27 Temperature 102.8 F H Pulse Rate 89 95 H Pulse Rate [ Anterior Bilateral Throughout] Respiratory 13 10 L Rate Respiratory Rate [Anterior Bilateral Throughout] Blood Pressure 128/55 131/66 O2 Sat by Pulse 93 94 Oximetry 03/21/17 03/21/17 03/21/17 08:35 09:41 09:43 Temperature Pulse Rate 82 Pulse Rate [ 94 H 85 Anterior Bilateral Throughout] Respiratory Rate Respiratory 11 L 14 Rate [Anterior Bilateral Throughout] Blood Pressure 143/64 O2 Sat by Pulse 98 Oximetry - Lab 03/21/17 07:45 03/21/17 07:45 Most recent lab results Calcium 9.9 mg/dL (8.4-10.2) 03/21/17 07:45
--- NOTE | 2017-03-21 11:14 | XRay Report ---
PORTABLE CHEST INDICATION: Increased secretions. COMPARISON: 03/17/2017 FINDINGS: Portable, frontal chest radiograph demonstrates much interval congestive clearing of the lungs. Prominent/increased bronchovascular markings centrally though noted with some hilar/perihilar atelectasis. Minimal fluid or thickening along the right minor fissure as well. No large pleural effusions. Borderline cardiomegaly. Aortic knob calcifications. Endotracheal tube tip again approximately 4 cm above the sheldon. Esophagogastric tube tip extending into the stomach and beyond the inferior radiographic margin also again seen. EKG leads. Stable bones. Left axillary stent. CONCLUSION: Interval radiographic improvement with now fairly clear lungs. Stable iatrogenic changes with patient remaining intubated. Please correlate. Thank you for the opportunity to participate in this patient's care.
--- NOTE | 2017-03-21 11:43 | Progress Note ---
Assessment and Plan echo reviewed - EF 60 - 65%, mild MR< mild TR, moderate , mild LVH, mild to moderate pulmonary HTN, RVSP 47mmHg. Cont present cardiac regimen. The patient has been seen in conjunction with Dr. Velasco who agrees with the assessment and plan of care. - Patient Problems (1) Cardiac arrest Current Visit: Yes Status: Acute (2) STEMI (ST elevation myocardial infarction) Current Visit: Yes Status: Acute Qualifiers: Involved coronary artery: unspecified coronary artery Qualified Code(s): I21.3 - ST elevation (STEMI) myocardial infarction of unspecified site (3) Acute hypoxemic respiratory failure Current Visit: Yes Status: Acute (4) ESRD on dialysis Current Visit: Yes Status: Acute (5) Hypotension Current Visit: Yes Status: Acute Qualifiers: Hypotension type: H Trimester: T (6) Aortic stenosis Current Visit: Yes Status: Chronic Qualifiers: Cardiac valve disease etiology: C (7) Pulmonary HTN Current Visit: Yes Status: Chronic Subjective Date of service: 03/21/17 Principal diagnosis: Acute Hypoxemic Resp Failure; STEMI Interval history: Pt remains intubated, VSS, off pressors. Family at bedside. Objective Last Vital Signs Temp 102.8 F H 03/21/17 08:00 Pulse 96 H 03/21/17 11:00 Resp 19 03/21/17 11:00 BP 140/65 03/21/17 11:00 Pulse Ox 94 03/21/17 11:00 - Physical Examination General: No Apparent Distress HEENT: Positive: Normocephaly, Mucus Membranes Moist Neck: Positive: neck supple, trachea midline Cardiac: Positive: Reg Rate and Rhythm, S1/S2 Lungs: Positive: Ventilated Respirations Neuro: Positive: Grossly Intact Abdomen: Positive: Soft, Active Bowel Sounds Skin: Negative: Clear, Rash Musculoskeletal: No Fluid Collection Extremities: Absent: edema - Labs and Meds Cardiac Enzymes 03/21/17 Range/Units 07:45 AST 23 (5-40) units/L CBC 03/21/17 Range/Units 07:45 WBC 15.1 H (4.5-11.0) K/mm3 RBC 3.32 L (3.65-5.03) M/mm3 Hgb 9.2 L (10.1-14.3) gm/dl Hct 28.9 L (30.3-42.9) % Plt Count 213 (140-440) K/mm3 Lymph # 0.7 L (1.2-5.4) K/mm3 [place] # 2.4 H (0.0-0.8) K/mm3 Eos # 0.1 (0.0-0.4) K/mm3 Baso # 0.0 (0.0-0.1) K/mm3 Comprehensive Metabolic Panel 03/21/17 Range/Units 07:45 Sodium 138 D (137-145) mmol/L Potassium 4.6 (3.6-5.0) mmol/L Chloride 95.4 L (98-107) mmol/L Carbon Dioxide 25 (22-30) mmol/L BUN 55 H (7-17) mg/dL Creatinine 6.9 H (0.7-1.2) mg/dL Glucose 188 H (65-100) mg/dL Calcium 9.9 (8.4-10.2) mg/dL AST 23 (5-40) units/L ALT 40 (7-56) units/L Alkaline Phosphatase 244 H (35-129) units/L Total Protein 7.3 (6.3-8.2) g/dL Albumin 2.8 L (3.9-5) g/dL - Telemetry EKG Rhythm: Sinus Rhythm - Allied health notes Allied health notes reviewed: RT
--- NOTE | 2017-03-21 16:29 | Progress Note ---
Assessment and Plan Assessment and plan: 66-year-old female presents to the emergency department complaining of chest pain after dialysis. While in triage, the patient went unresponsive, and without a pulse, No palpable pulses were identified. Patient was placed on a cardiac monitor technician and ventricular fibrillation was noted. Patient was defibrillated a single time with 200 J. She received CPR protocol, was intubated and had ROSC, and she was then taken to the ICU. Postarrest ECG was consistent with anterior STEMI. Code STEMI was activated, she was taken to [facility] and received angiogram ; stent x 2 in LAD noted to be patent, but had distal LAD spasm Cardiovascular cardiac arrest; Vfib, STEMI, ACS, Distal LAD spasm Cardiology input appreciated, status post cath with patent stents she was rx with amio drip, received heparin ggt x 24 hours, received Dopamine drip for Cardiogenic shock and hypotension,now improved; currently on Lopressor -Hypertension. continue antihypertensive medications -Hyperlipidemia- Continue statin therapy Pulmonary Acute hypoxic respiratory failure, mech vent >96 hours Continue ventilator will continue to attempt to wean daily, pulmonary input appreciated GI Nausea/Vomiting- Start on zofran, now resolved Toxic metabolic encephalopathy EEG was reviewed, seizure is unlikely. encephalopathy most likely due to acute illness, cardiac arrest and IV sedation now improved, Neurology input appreciated ID Sepsis syndrome; ID consult appreciated, Continue current empiric therapy. Follow clinically for localizing issues. WBC count is slowly downtrending. RENAL/FEN End stage renal disease on hemodialysis. Nephrology following. Continue hemodialysis Hyperkalemia-corrected with dialysis Diabetes mellitus type 2. Accu-Cheks and sliding scale insulin. Morbid obesity- counselling once extubated. Anemia of CKD. Follow H&H. Transfuse as necessary. History of breast cancer. 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 The aggregate critical care time was [35] minutes. This time is in addition to time spent performing reported procedures but includes the following: [x] Data Review and interpretation [x] Patient assessment and monitoring of vital signs [x] Documentation [x] Medication orders and management History Interval history: Patient is currently intubated, she obeys commands he nods her head today was a squeeze my hands. Hospitalist Physical - Physical exam Narrative exam: General: Patient appears well in no distress HEENT: MMM, EOMI cardiac: S1-S2 heard lungs: clear to auscultation, abdomen: soft, nontender, nondistended bowel sounds positive extremities: no edema clubbing or cyanosis Skin: no rash or lesion Neuro: Intubated, opens eyes of days, and shakes and nods heads. Psych: appropriate behavior and mood, cognition intact - Constitutional Vitals: Temp Pulse Resp BP Pulse Ox 99.1 F 79 16 110/45 97 03/21/17 12:59 03/21/17 16:14 03/21/17 15:05 03/21/17 16:14 03/21/17 16:14 General appearance: Present: no acute distress, obese Results - Labs CBC & Chem 7: 03/25/17 04:38 03/25/17 04:38 Labs: Laboratory Last Values WBC 15.1 K/mm3 (4.5-11.0) H 03/21/17 07:45 RBC 3.32 M/mm3 (3.65-5.03) L 03/21/17 07:45 Hgb 9.2 gm/dl (10.1-14.3) L 03/21/17 07:45 Hct 28.9 % (30.3-42.9) L 03/21/17 07:45 MCV 87 fl (79-97) 03/21/17 07:45 MCH 28 pg (28-32) 03/21/17 07:45 MCHC 32 % (30-34) 03/21/17 07:45 RDW 17.4 % (13.2-15.2) H 03/21/17 07:45 Plt Count 213 K/mm3 (140-440) 03/21/17 07:45 Lymph % (Auto) 4.7 % (13.4-35.0) L 03/21/17 07:45 [place] % (Auto) 16.0 % (0.0-7.3) H 03/21/17 07:45 Eos % (Auto) 0.4 % (0.0-4.3) 03/21/17 07:45 Baso % (Auto) 0.3 % (0.0-1.8) 03/21/17 07:45 Lymph # 0.7 K/mm3 (1.2-5.4) L 03/21/17 07:45 [place] # 2.4 K/mm3 (0.0-0.8) H 03/21/17 07:45 Eos # 0.1 K/mm3 (0.0-0.4) 03/21/17 07:45 Baso # 0.0 K/mm3 (0.0-0.1) 03/21/17 07:45 Add Manual Diff Complete 03/17/17 03:42 Total Counted 100 03/17/17 03:42 Seg Neutrophils % 78.6 % (40.0-70.0) H 03/21/17 07:45 Seg Neuts % (Manual) 84.0 % (40.0-70.0) H 03/17/17 03:42 Band Neutrophils % 2.0 % 03/17/17 03:42 Lymphocytes % (Manual) 3.0 % (13.4-35.0) L 03/17/17 03:42 Reactive Lymphs % (Man) 0 % 03/17/17 03:42 Monocytes % (Manual) 11.0 % (0.0-7.3) H 03/17/17 03:42 Eosinophils % (Manual) 0 % (0.0-4.3) 03/17/17 03:42 Basophils % (Manual) 0 % (0.0-1.8) 03/17/17 03:42 Metamyelocytes % 0 % 03/17/17 03:42 Myelocytes % 0 % 03/17/17 03:42 Promyelocytes % 0 % 03/17/17 03:42 Blast Cells % 0 % 03/17/17 03:42 Nucleated RBC % Not Reportable 03/17/17 03:42 Seg Neutrophils # 11.8 K/mm3 (1.8-7.7) H 03/21/17 07:45 Seg Neutrophils # Man 17.3 K/mm3 (1.8-7.7) H 03/17/17 03:42 Band Neutrophils # 0.4 K/mm3 03/17/17 03:42 Lymphocytes # (Manual) 0.6 K/mm3 (1.2-5.4) L 03/17/17 03:42 Abs React Lymphs (Man) 0.0 K/mm3 03/17/17 03:42 Monocytes # (Manual) 2.3 K/mm3 (0.0-0.8) H 03/17/17 03:42 Eosinophils # (Manual) 0.0 K/mm3 (0.0-0.4) 03/17/17 03:42 Basophils # (Manual) 0.0 K/mm3 (0.0-0.1) 03/17/17 03:42 Metamyelocytes # 0.0 K/mm3 03/17/17 03:42 Myelocytes # 0.0 K/mm3 03/17/17 03:42 Promyelocytes # 0.0 K/mm3 03/17/17 03:42 Blast Cells # 0.0 K/mm3 03/17/17 03:42 WBC Morphology Not Reportable 03/17/17 03:42 Hypersegmented Neuts Not Reportable 03/17/17 03:42 Hyposegmented Neuts Not Reportable 03/17/17 03:42 Hypogranular Neuts Not Reportable 03/17/17 03:42 Smudge Cells Not Reportable 03/17/17 03:42 Toxic Granulation Not Reportable 03/17/17 03:42 Toxic Vacuolation Not Reportable 03/17/17 03:42 Dohle Bodies Not Reportable 03/17/17 03:42 Pelger-Huet Anomaly Not Reportable 03/17/17 03:42 Tunde Rods Not Reportable 03/17/17 03:42 Platelet Estimate Appears normal 03/17/17 03:42 Clumped Platelets Not Reportable 03/17/17 03:42 Plt Clumps, EDTA Not Reportable 03/17/17 03:42 Large Platelets Not Reportable 03/17/17 03:42 Giant Platelets Not Reportable 03/17/17 03:42 Platelet Satelliting Not Reportable 03/17/17 03:42 Plt Morphology Comment Not Reportable 03/17/17 03:42 RBC Morphology Not Reportable 03/17/17 03:42 Dimorphic RBCs Not Reportable 03/17/17 03:42 Polychromasia Not Reportable 03/17/17 03:42 Hypochromasia Not Reportable 03/17/17 03:42 Poikilocytosis Not Reportable 03/17/17 03:42 Anisocytosis 1+ 03/17/17 03:42 Microcytosis Not Reportable 03/17/17 03:42 Macrocytosis Not Reportable 03/17/17 03:42 Spherocytes Not Reportable 03/17/17 03:42 Pappenheimer Bodies Not Reportable 03/17/17 03:42 Sickle Cells Not Reportable 03/17/17 03:42 Target Cells Not Reportable 03/17/17 03:42 Tear Drop Cells Not Reportable 03/17/17 03:42 Ovalocytes Not Reportable 03/17/17 03:42 Helmet Cells Not Reportable 03/17/17 03:42 Shukla-Fords Bodies Not Reportable 03/17/17 03:42 [place] Rings Not Reportable 03/17/17 03:42 Iona Cells Not Reportable 03/17/17 03:42 Bite Cells Not Reportable 03/17/17 03:42 Crenated Cell Not Reportable 03/17/17 03:42 Elliptocytes Not Reportable 03/17/17 03:42 Acanthocytes (Spur) Not Reportable 03/17/17 03:42 Rouleaux Not Reportable 03/17/17 03:42 Hemoglobin C Crystals Not Reportable 03/17/17 03:42 Schistocytes Not Reportable 03/17/17 03:42 Malaria parasites Not Reportable 03/17/17 03:42 Waylon Bodies Not Reportable 03/17/17 03:42 Hem Pathologist Commnt No 03/17/17 03:42 PT 13.4 Sec. (12.2-14.9) 03/16/17 11:07 INR 1.03 (0.87-1.13) 03/16/17 11:07 APTT 24.1 Sec. (24.2-36.6) L 03/16/17 11:07 Activated Clotting Time 125 (74-137) 03/17/17 08:23 Heparin Anti-Xa Level < 0.10 U.I./ml (0.3-0.7) L 03/17/17 21:12 POC ABG pH 7.321 (7.35-7.45) L 03/21/17 04:42 POC ABG pCO2 56.8 (35-45) H 03/21/17 04:42 POC ABG pO2 73 (80-105) L 03/21/17 04:42 POC ABG HCO3 29.3 03/21/17 04:42 POC ABG Total CO2 31 03/21/17 04:42 POC ABG O2 Sat 93 03/21/17 04:42 POC ABG Base Excess 3 03/21/17 04:42 FiO2 30 % 03/21/17 04:42 Sodium 138 mmol/L (137-145) D 03/21/17 07:45 Potassium 4.6 mmol/L (3.6-5.0) 03/21/17 07:45 Chloride 95.4 mmol/L (98-107) L 03/21/17 07:45 Carbon Dioxide 25 mmol/L (22-30) 03/21/17 07:45 Anion Gap 22 mmol/L 03/21/17 07:45 BUN 55 mg/dL (7-17) H 03/21/17 07:45 Creatinine 6.9 mg/dL (0.7-1.2) H 03/21/17 07:45 Estimated GFR 7 ml/min 03/21/17 07:45 BUN/Creatinine Ratio 7.97 % 03/21/17 07:45 Glucose 188 mg/dL (65-100) H 03/21/17 07:45 POC Glucose 226 (70-105) H 03/21/17 12:16 Lactic Acid 1.40 mmol/L (0.7-2.0) 03/17/17 19:50 Calcium 9.9 mg/dL (8.4-10.2) 03/21/17 07:45 Total Bilirubin 0.50 mg/dL (0.1-1.2) 03/21/17 07:45 AST 23 units/L (5-40) 03/21/17 07:45 ALT 40 units/L (7-56) 03/21/17 07:45 Alkaline Phosphatase 244 units/L (35-129) H 03/21/17 07:45 Ammonia 38.0 umol/L (25-60) 03/18/17 19:02 Total Creatine Kinase 282 units/L (30-135) H 03/16/17 16:36 CK-MB (CK-2) 24.2 ng/mL (0.0-4.0) H 03/16/17 16:36 CK-MB (CK-2) Rel Index 8.5 (0-4) H 03/16/17 16:36 Troponin T 0.656 ng/mL (0.00-0.029) H* D 03/16/17 16:36 C-Reactive Protein 33.90 mg/dL (0.00-1.30) H 03/17/17 17:15 Total Protein 7.3 g/dL (6.3-8.2) 03/21/17 07:45 Albumin 2.8 g/dL (3.9-5) L 03/21/17 07:45 Albumin/Globulin Ratio 0.6 % 03/21/17 07:45 Triglycerides 134 mg/dL (2-149) 03/16/17 11:07 Cholesterol 228 mg/dL (50-199) H 03/16/17 11:07 LDL Cholesterol Direct 165 mg/dL (50-130) H 03/16/17 11:07 HDL Cholesterol 37 mg/dL (40-59) L 03/16/17 11:07 Cholesterol/HDL Ratio 6.16 % 03/16/17 11:07 TSH 0.746 mlU/mL (0.270-4.200) 03/18/17 19:02 Random Vancomycin 16.3 ug/mL (0-40.0) 03/19/17 04:31 Hepatitis A IgM Ab Non-reactive (NonReactive) 03/19/17 04:31 Hep Bs Antigen Non-reactive (Negative) 03/19/17 04:31 Hep B Core IgM Ab Non-reactive (NonReactive) 03/19/17 04:31 Hepatitis C Antibody Non-reactive (NonReactive) 03/19/17 04:31 Blood Type A POSITIVE 03/16/17 16:36 Antibody Screen TNR 03/16/17 16:36 CLAIR Antibody Screen Negative 03/16/17 16:36
[2017-03-21] MEDS ORDERED: APRESOLINE IV PRN (20:46)
--- NOTE | 2017-03-21 21:57 | XRay Report ---
FINAL REPORT PROCEDURE: XR CHEST 1V AP TECHNIQUE: Chest radiograph anteroposterior view. CPT 10183 HISTORY: DBHT placement for confirmation COMPARISON: 03/17/2017 FINDINGS: Heart: Normal. Mediastinum/Vessels: Normal. Lungs/Pleural space: There is mild prominence of interstitial markings. No confluent infiltrates or mass lesions are identified. Pleural spaces are clear.. Bony thorax: No acute osseous abnormality. Life support devices: Endotracheal tube is terminating about 3.7 centimeters above the sheldon. A nasogastric tube is seen to extend down into the abdomen and its tip is not included.. IMPRESSION: Endotracheal tube is terminating 3.7 centimeters above the sheldon. Prominent interstitial markings most likely represent interstitial fibrosis.
--- NOTE | 2017-03-21 23:43 | XRay Report ---
FINAL REPORT PROCEDURE: XR ABDOMEN 1V AP TECHNIQUE: Abdominal radiograph, single supine AP view. HISTORY: DBHT placement confirmation COMPARISON: No prior studies are available for comparison. FINDINGS: Bowel gas pattern:Nonobstructive. Masses or calcifications:None. Bony structures:No significant abnormality. Other:NG tube is in the stomach.. IMPRESSION: No acute abnormality. The NG tube is in the stomach.
[2017-03-22] MEDS: TYLENOL FEEDTUBE PRN ×2 (00:39→22:06)
[2017-03-22] MEDS: REGLAN IV SCH ×4 (01:59→19:00)
[2017-03-22] MEDS: DUONEB *Not for PRN Use IH SCH ×4 (02:42→19:47)
[2017-03-22] MEDS: fentaNYL DRIP Premix 2,000 MCG/100 ML BAG IV SCH ×2 (04:27→12:34)
[2017-03-22] MEDS: DIPRIVAN 10 MG/ML 1,000 MG/100 ML BOTTLE IV SCH (05:52)
[2017-03-22 07:06] LABS: ISTAT Base Excess 0; ISTAT HCO3 25.7; ISTAT PCO2 49.5 (35-45); ISTAT PH 7.323 (7.35-7.45); ISTAT PO2 77 (80-105); ISTAT SO2 94; ISTAT TCO2 27
[2017-03-22 08:09] LABS: Hematocrit 28.4 % (30.3-42.9); Hemoglobin 9.1 gm/dl (10.1-14.3); Mean Corpuscular HGB Conc 32 % (30-34); Mean Corpuscular Hemoglobin 28 pg (28-32); Mean Corpuscular Volume 86 fl (79-97); Platelet Count 193 K/mm3 (140-440); Red Blood Count 3.29 M/mm3 (3.65-5.03); Red Cell Distribution Width 17.3 % (13.2-15.2); White Blood Count 16.4 K/mm3 (4.5-11.0)
[2017-03-22 08:24] LABS: BUN/Creatinine Ratio 8.93; Chloride 94.8 mmol/L (98-107); Potassium 4.2 mmol/L (3.6-5.0)
--- NOTE | 2017-03-22 09:41 | Progress Note ---
Assessment and Plan - Patient Problems (1) Sepsis syndrome Current Visit: Yes Status: Acute Plan to address problem: 1. Question drug fever vs. colitis vs. other. 2. Continue empiric Cefepime and Vancomycin with the addition of Flagyl. 3. Consider imaging of CT chest/ abdomen/ pelvis if fevers persist. 4. Blood cultures via femoral line in addition to peripheral draw if persisten fevers. Alternate location of central line when feasible. Subjective Date of service: 03/22/17 Principal diagnosis: Acute Hypoxemic Resp Failure; STEMI Interval history: Intermittent high fevers. No significant clinical findings to correlate. Objective - Constitutional Vitals: Vital Signs Temp Pulse Resp BP Pulse Ox 100.0 F H 87 17 172/52 96 03/22/17 07:54 03/22/17 08:15 03/22/17 08:15 03/22/17 08:10 03/22/17 08:10 Temperature -Last 24 Hours Temperature 100.0 F Temperature 99.8 F Temperature 102.2 F Temperature 100.4 F Temperature 100.4 F Temperature 101.6 F Temperature 101.6 F Temperature 99.1 F Temperature 99.4 F General appearance: Present: other (restless at times, intubated, FiO2 30%, undergoing HD) - EENT Eyes: no conjunctival injection ENT: clear oral mucosa - Respiratory Respiratory: bilateral: CTA, negative: rales - Cardiovascular Rhythm: regular Heart Sounds: Present: S1 & S2 Extremity abnormal: edema (trace edema) - Gastrointestinal General gastrointestinal: Present: soft, non-distended, normal bowel sounds - Integumentary Integumentary: no rash - Neurologic Neurologic: moves all extremities - Additional findings Additional findings: AV fistula left arm; left femoral TLC - Labs CBC & Chem 7: 03/22/17 07:40 03/22/17 07:40 Labs: Abnormal lab results 03/21/17 03/21/17 03/21/17 Range/Units 12:16 17:17 23:28 WBC (4.5-11.0) K/mm3 RBC (3.65-5.03) M/mm3 Hgb (10.1-14.3) gm/dl Hct (30.3-42.9) % RDW (13.2-15.2) % POC ABG pH (7.35-7.45) POC ABG pCO2 (35-45) POC ABG pO2 (80-105) Chloride (98-107) mmol/L Carbon Dioxide (22-30) mmol/L BUN (7-17) mg/dL Creatinine (0.7-1.2) mg/dL Glucose (65-100) mg/dL POC Glucose 226 H 192 H 199 H (70-105) 03/22/17 03/22/17 03/22/17 Range/Units 04:49 06:13 07:40 WBC 16.4 H (4.5-11.0) K/mm3 RBC 3.29 L (3.65-5.03) M/mm3 Hgb 9.1 L (10.1-14.3) gm/dl Hct 28.4 L (30.3-42.9) % RDW 17.3 H (13.2-15.2) % POC ABG pH 7.323 L (7.35-7.45) POC ABG pCO2 49.5 H (35-45) POC ABG pO2 77 L (80-105) Chloride (98-107) mmol/L Carbon Dioxide (22-30) mmol/L BUN (7-17) mg/dL Creatinine (0.7-1.2) mg/dL Glucose (65-100) mg/dL POC Glucose 190 H (70-105) 03/22/17 Range/Units 07:40 WBC (4.5-11.0) K/mm3 RBC (3.65-5.03) M/mm3 Hgb (10.1-14.3) gm/dl Hct (30.3-42.9) % RDW (13.2-15.2) % POC ABG pH (7.35-7.45) POC ABG pCO2 (35-45) POC ABG pO2 (80-105) Chloride 94.8 L (98-107) mmol/L Carbon Dioxide 21 L (22-30) mmol/L BUN 84 H (7-17) mg/dL Creatinine 9.4 H (0.7-1.2) mg/dL Glucose 188 H (65-100) mg/dL POC Glucose (70-105) Microbiology 03/21/17 08:47 Tracheal Aspirate Sputum Culture - Preliminary, usual yvonne 03/16/17 21:51 Peripheral/Venous Blood Culture - Final NO GROWTH AFTER 5 DAYS 03/16/17 21:43 Peripheral/Venous Blood Culture - Final NO GROWTH AFTER 5 DAYS - Imaging and cardiology Chest x-ray: report reviewed (interstitial markings consistent with pulmonary fibrosis) Abdominal x-ray: report reviewed
[2017-03-22 10:07] LABS: Basophils % (Manual) 0 % (0.0-1.8); Blastocytes % (Manual) 0 %; Eosinophils % (Manual) 0 % (0.0-4.3)
[2017-03-22 10:08] LABS: Anisocytosis 1+; Diff Status Complete
--- NOTE | 2017-03-22 10:44 | Progress Note ---
Assessment and Plan Impression * End-stage renal disease on maintenance hemodialysis * Status post V. fib cardiac arrest * Hypertension * s/p PCI * Diabetes * History of breast cancer * Anemia secondary to ESRD * Hyperlipidemia Recommendations * dialysis qMWF and prn * low k bath with hd * uf as tolerated * AV fistula is still functional. Has a good bruit and thrill * No IV BP or venipuncture access arm * Adjust diet and meds for ESRD state * Her outpatient days are Tuesdays and Saturdays Subjective Date of service: 03/22/17 Principal diagnosis: Acute Hypoxemic Resp Failure; STEMI Interval history: resting in bed, events noted Objective - Exam Narrative Exam: General appearance: well-developed, well-nourished, appears stated age, intubated EENT: PERRL, mucous membranes moist Neck: no JVD, no thyromegaly, no carotid bruit, supple Respiratory: Present: Clear to Ascultation Cardiology: regular, normal heart rate Gastrointestinal: normal, normoactive bowel sounds Integumentary: no rash, other (AV fistula in her left upper arm. Good bruit and thrill) - Vital Signs Vital signs: Vital Signs - 12hr 03/21/17 03/21/17 03/22/17 23:00 23:49 00:00 Temperature Pulse Rate 90 Pulse Rate [ Anterior Bilateral Throughout] Pulse Rate [ 96 H From Monitor] Respiratory 12 23 Rate Respiratory Rate [Anterior Bilateral Throughout] Blood Pressure 155/59 145/50 O2 Sat by Pulse 95 97 99 Oximetry 03/22/17 03/22/17 03/22/17 00:01 00:20 01:00 Temperature 102.2 F H Pulse Rate Pulse Rate [ Anterior Bilateral Throughout] Pulse Rate [ From Monitor] Respiratory Rate Respiratory Rate [Anterior Bilateral Throughout] Blood Pressure 135/57 148/76 O2 Sat by Pulse 97 Oximetry 03/22/17 03/22/17 03/22/17 02:01 02:43 02:53 Temperature Pulse Rate 78 85 Pulse Rate [ 100 H 98 H Anterior Bilateral Throughout] Pulse Rate [ From Monitor] Respiratory 12 Rate Respiratory 22 24 Rate [Anterior Bilateral Throughout] Blood Pressure 108/42 198/66 O2 Sat by Pulse 97 Oximetry 03/22/17 03/22/17 03/22/17 03:00 04:00 04:49 Temperature 99.8 F H Pulse Rate 93 H 100 H 96 H Pulse Rate [ Anterior Bilateral Throughout] Pulse Rate [ 90 From Monitor] Respiratory 18 17 Rate Respiratory Rate [Anterior Bilateral Throughout] Blood Pressure 146/56 177/60 163/62 O2 Sat by Pulse 98 97 99 Oximetry 03/22/17 03/22/17 03/22/17 05:00 06:01 07:00 Temperature Pulse Rate 100 H 100 H Pulse Rate [ Anterior Bilateral Throughout] Pulse Rate [ From Monitor] Respiratory 19 19 15 Rate Respiratory Rate [Anterior Bilateral Throughout] Blood Pressure 168/59 182/73 181/55 O2 Sat by Pulse 95 96 Oximetry 03/22/17 03/22/17 03/22/17 07:54 08:00 08:10 Temperature 100.0 F H Pulse Rate 91 H 86 Pulse Rate [ Anterior Bilateral Throughout] Pulse Rate [ 81 From Monitor] Respiratory 16 Rate Respiratory Rate [Anterior Bilateral Throughout] Blood Pressure 172/52 172/52 O2 Sat by Pulse 95 96 Oximetry 03/22/17 03/22/17 08:15 09:00 Temperature Pulse Rate 81 Pulse Rate [ 87 Anterior Bilateral Throughout] Pulse Rate [ From Monitor] Respiratory 14 Rate Respiratory 17 Rate [Anterior Bilateral Throughout] Blood Pressure 114/52 O2 Sat by Pulse 94 Oximetry - Lab 03/22/17 07:40 03/22/17 07:40 Most recent lab results Calcium 10.0 mg/dL (8.4-10.2) 03/22/17 07:40
--- NOTE | 2017-03-22 10:51 | Progress Note ---
Assessment and Plan - Patient Problems (1) Acute hypoxemic respiratory failure Current Visit: Yes Status: Acute Plan to address problem: Aspiration precautions, HOB> 40 - VAP bundle addressed Lung protective strategies Analgesia and agitation/anxiety management VTE prophylaxis-on heparin infusion(anticoagulated) Stress ulcer prophylaxis Daily SAT/SBT unless otherwise contraindicated Enteric feeding, accuchecks with glycemic control- currently on hold secondary to vomiting Bronchodilators Adjust minute ventilation for better gas-exchange Start SBTs as tolerated today. (2) Cardiac arrest due to underlying cardiac condition Current Visit: Yes Status: Acute Plan to address problem: Continue cardioprotective measures s/p 2 stents to LAD (3) Seizure Current Visit: Yes Status: Acute Plan to address problem: Neurology following. Will hold fentanyl infusion and use prn dosing so facilitate neuro-imaging (4) ESRD on dialysis Current Visit: Yes Status: Acute Plan to address problem: HD per renal service (5) Acute respiratory acidosis Current Visit: Yes Status: Acute Plan to address problem: Much improved Bronchodilators (6) Obesity (BMI 30-39.9) Current Visit: Yes Status: Acute Plan to address problem: Lifestyle modification after discharge Subjective Date of service: 03/22/17 Principal diagnosis: Acute Hypoxemic Resp Failure; STEMI Interval history: Seen and examined. Vitals ,labs, medications, chart reviewed. No acute overnight events noted. Tolerating tube feeding Awake and alert, obeying simple commands Start SBT with plan to liberate if she meets criteria Currently on amiodarone and fentanyl infusion On mechanical ventilatory support-ETT, no patient ventilator dys-synchrony noted AC-VC 12/500/5/50% Discussed during interdisciplinary ICU rounds Objective Vital Signs - 12hr 03/21/17 03/21/17 03/22/17 23:00 23:49 00:00 Temperature Pulse Rate 90 Pulse Rate [ Anterior Bilateral Throughout] Pulse Rate [ 96 H From Monitor] Respiratory 12 23 Rate Respiratory Rate [Anterior Bilateral Throughout] Blood Pressure 155/59 145/50 O2 Sat by Pulse 95 97 99 Oximetry O2 Sat by Pulse Oximetry [ Anterior Bilateral Throughout] 03/22/17 03/22/17 03/22/17 00:01 00:20 01:00 Temperature 102.2 F H Pulse Rate Pulse Rate [ Anterior Bilateral Throughout] Pulse Rate [ From Monitor] Respiratory Rate Respiratory Rate [Anterior Bilateral Throughout] Blood Pressure 135/57 148/76 O2 Sat by Pulse 97 Oximetry O2 Sat by Pulse Oximetry [ Anterior Bilateral Throughout] 03/22/17 03/22/17 03/22/17 02:01 02:43 02:53 Temperature Pulse Rate 78 85 Pulse Rate [ 100 H 98 H Anterior Bilateral Throughout] Pulse Rate [ From Monitor] Respiratory 12 Rate Respiratory 22 24 Rate [Anterior Bilateral Throughout] Blood Pressure 108/42 198/66 O2 Sat by Pulse 97 Oximetry O2 Sat by Pulse Oximetry [ Anterior Bilateral Throughout] 03/22/17 03/22/17 03/22/17 03:00 04:00 04:49 Temperature 99.8 F H Pulse Rate 93 H 100 H 96 H Pulse Rate [ Anterior Bilateral Throughout] Pulse Rate [ 90 From Monitor] Respiratory 18 17 Rate Respiratory Rate [Anterior Bilateral Throughout] Blood Pressure 146/56 177/60 163/62 O2 Sat by Pulse 98 97 99 Oximetry O2 Sat by Pulse Oximetry [ Anterior Bilateral Throughout] 03/22/17 03/22/17 03/22/17 05:00 06:01 07:00 Temperature Pulse Rate 100 H 100 H Pulse Rate [ Anterior Bilateral Throughout] Pulse Rate [ From Monitor] Respiratory 19 19 15 Rate Respiratory Rate [Anterior Bilateral Throughout] Blood Pressure 168/59 182/73 181/55 O2 Sat by Pulse 95 96 Oximetry O2 Sat by Pulse Oximetry [ Anterior Bilateral Throughout] 03/22/17 03/22/17 03/22/17 07:54 08:00 08:10 Temperature 100.0 F H Pulse Rate 91 H 86 Pulse Rate [ Anterior Bilateral Throughout] Pulse Rate [ 81 From Monitor] Respiratory 16 Rate Respiratory Rate [Anterior Bilateral Throughout] Blood Pressure 172/52 172/52 O2 Sat by Pulse 95 96 Oximetry O2 Sat by Pulse Oximetry [ Anterior Bilateral Throughout] 03/22/17 03/22/17 03/22/17 08:15 09:00 10:20 Temperature 100 F H Pulse Rate 81 89 Pulse Rate [ 87 Anterior Bilateral Throughout] Pulse Rate [ From Monitor] Respiratory 14 18 Rate Respiratory 17 Rate [Anterior Bilateral Throughout] Blood Pressure 114/52 157/69 O2 Sat by Pulse 94 Oximetry O2 Sat by Pulse 98 Oximetry [ Anterior Bilateral Throughout] Constitutional: no acute distress, other (intubated orally, ETT to vent, ) Eyes: non-icteric ENT: oropharynx moist Neck: supple, no lymphadenopathy Effort: normal, mildly labored Ascultation: Bilateral: diminished breath sounds, rales (scant in bases) Cardiovascular: regular rate and rhythm Gastrointestinal: normoactive bowel sounds, soft, non-tender, non-distended Integumentary: normal, other (Femoral CVC) Extremities: no cyanosis, no edema, pulses normal, no ischemia or petechiae ( left femoral CVC) Neurologic: non-focal exam (Moves all extremities, tracks my voice, attempts to vocalize in response to questions), pupils equal and round, unable to assess Psychiatric: other (unable to assess) CBC and BMP: 03/23/17 05:00 03/23/17 05:00 ABG, PT/INR, D-dimer: ABG POC ABG pH 7.323 (7.35-7.45) L 03/22/17 04:49 POC ABG pCO2 49.5 (35-45) H 03/22/17 04:49 POC ABG pO2 77 (80-105) L 03/22/17 04:49 POC ABG HCO3 25.7 03/22/17 04:49 POC ABG Total CO2 27 03/22/17 04:49 POC ABG O2 Sat 94 03/22/17 04:49 PT/INR, D-dimer PT 13.4 Sec. (12.2-14.9) 03/16/17 11:07 INR 1.03 (0.87-1.13) 03/16/17 11:07 Abnormal lab findings: Abnormal Labs 03/16/17 03/16/17 03/17/17 16:36 18:00 03:42 WBC 20.6 H RBC Hgb Hct RDW 17.3 H Lymph % (Auto) [place] % (Auto) Lymph # [place] # Seg Neutrophils % Seg Neuts % (Manual) 84.0 H Lymphocytes % (Manual) 3.0 L Monocytes % (Manual) 11.0 H Seg Neutrophils # Seg Neutrophils # Man 17.3 H Lymphocytes # (Manual) 0.6 L Monocytes # (Manual) 2.3 H Heparin Anti-Xa Level POC ABG pH 7.336 L POC ABG pCO2 47.9 H POC ABG pO2 189 H Sodium Potassium Chloride Carbon Dioxide BUN Creatinine Glucose POC Glucose ALT Alkaline Phosphatase Total Creatine Kinase 282 H CK-MB (CK-2) 24.2 H CK-MB (CK-2) Rel Index 8.5 H Troponin T 0.656 H* D C-Reactive Protein Albumin 06/18/17 06/18/17 06/18/17 03:42 04:21 17:15 WBC RBC Hgb Hct RDW Lymph % (Auto) [place] % (Auto) Lymph # [place] # Seg Neutrophils % Seg Neuts % (Manual) Lymphocytes % (Manual) Monocytes % (Manual) Seg Neutrophils # Seg Neutrophils # Man Lymphocytes # (Manual) Monocytes # (Manual) Heparin Anti-Xa Level 0.10 L POC ABG pH POC ABG pCO2 POC ABG pO2 Sodium 131 L Potassium 5.3 H D Chloride 89.5 L Carbon Dioxide 21 L BUN 39 H Creatinine 7.0 H Glucose 151 H POC Glucose ALT Alkaline Phosphatase Total Creatine Kinase CK-MB (CK-2) CK-MB (CK-2) Rel Index Troponin T C-Reactive Protein 33.90 H Albumin 03/17/17 03/18/17 03/18/17 21:12 03:33 03:33 WBC 17.6 H RBC 3.59 L Hgb Hct RDW 16.9 H Lymph % (Auto) 4.2 L [place] % (Auto) 11.8 H Lymph # 0.7 L [place] # 2.1 H Seg Neutrophils % 83.3 H Seg Neuts % (Manual) Lymphocytes % (Manual) Monocytes % (Manual) Seg Neutrophils # 14.7 H Seg Neutrophils # Man Lymphocytes # (Manual) Monocytes # (Manual) Heparin Anti-Xa Level < 0.10 L POC ABG pH POC ABG pCO2 POC ABG pO2 Sodium 127 L Potassium 6.1 H* Chloride 87.2 L Carbon Dioxide BUN 55 H Creatinine 8.7 H Glucose 140 H POC Glucose ALT Alkaline Phosphatase Total Creatine Kinase CK-MB (CK-2) CK-MB (CK-2) Rel Index Troponin T C-Reactive Protein Albumin 03/18/17 03/18/17 03/19/17 04:34 22:15 00:04 WBC RBC Hgb Hct RDW Lymph % (Auto) [place] % (Auto) Lymph # [place] # Seg Neutrophils % Seg Neuts % (Manual) Lymphocytes % (Manual) Monocytes % (Manual) Seg Neutrophils # Seg Neutrophils # Man Lymphocytes # (Manual) Monocytes # (Manual) Heparin Anti-Xa Level POC ABG pH 7.289 L POC ABG pCO2 48.7 H POC ABG pO2 Sodium Potassium 5.6 H Chloride Carbon Dioxide BUN Creatinine Glucose POC Glucose 108 H ALT Alkaline Phosphatase Total Creatine Kinase CK-MB (CK-2) CK-MB (CK-2) Rel Index Troponin T C-Reactive Protein Albumin 03/19/17 03/19/17 03/19/17 05:22 08:00 08:00 WBC 16.3 H RBC 3.15 L Hgb 8.8 L Hct 27.3 L RDW 17.4 H Lymph % (Auto) 3.4 L [place] % (Auto) 10.1 H Lymph # 0.5 L [place] # 1.7 H Seg Neutrophils % 85.4 H Seg Neuts % (Manual) Lymphocytes % (Manual) Monocytes % (Manual) Seg Neutrophils # 13.9 H Seg Neutrophils # Man Lymphocytes # (Manual) Monocytes # (Manual) Heparin Anti-Xa Level POC ABG pH POC ABG pCO2 POC ABG pO2 Sodium 131 L Potassium Chloride 89.3 L Carbon Dioxide BUN 56 H Creatinine 7.8 H Glucose 122 H POC Glucose 146 H ALT 59 H Alkaline Phosphatase 208 H Total Creatine Kinase CK-MB (CK-2) CK-MB (CK-2) Rel Index Troponin T C-Reactive Protein Albumin 2.6 L 03/19/17 03/19/17 03/19/17 08:06 11:50 17:36 WBC RBC Hgb Hct RDW Lymph % (Auto) [place] % (Auto) Lymph # [place] # Seg Neutrophils % Seg Neuts % (Manual) Lymphocytes % (Manual) Monocytes % (Manual) Seg Neutrophils # Seg Neutrophils # Man Lymphocytes # (Manual) Monocytes # (Manual) Heparin Anti-Xa Level POC ABG pH 7.338 L POC ABG pCO2 49.2 H POC ABG pO2 110 H Sodium Potassium Chloride Carbon Dioxide BUN Creatinine Glucose POC Glucose 172 H 152 H ALT Alkaline Phosphatase Total Creatine Kinase CK-MB (CK-2) CK-MB (CK-2) Rel Index Troponin T C-Reactive Protein Albumin 03/20/17 03/20/17 03/20/17 00:14 04:15 05:06 WBC RBC Hgb Hct RDW Lymph % (Auto) [place] % (Auto) Lymph # [place] # Seg Neutrophils % Seg Neuts % (Manual) Lymphocytes % (Manual) Monocytes % (Manual) Seg Neutrophils # Seg Neutrophils # Man Lymphocytes # (Manual) Monocytes # (Manual) Heparin Anti-Xa Level POC ABG pH 7.288 L POC ABG pCO2 51.4 H POC ABG pO2 Sodium Potassium Chloride Carbon Dioxide BUN Creatinine Glucose POC Glucose 132 H 166 H ALT Alkaline Phosphatase Total Creatine Kinase CK-MB (CK-2) CK-MB (CK-2) Rel Index Troponin T C-Reactive Protein Albumin 03/20/17 03/20/17 03/20/17 12:07 15:45 17:41 WBC RBC Hgb Hct RDW Lymph % (Auto) [place] % (Auto) Lymph # [place] # Seg Neutrophils % Seg Neuts % (Manual) Lymphocytes % (Manual) Monocytes % (Manual) Seg Neutrophils # Seg Neutrophils # Man Lymphocytes # (Manual) Monocytes # (Manual) Heparin Anti-Xa Level POC ABG pH POC ABG pCO2 POC ABG pO2 Sodium Potassium Chloride Carbon Dioxide BUN Creatinine Glucose POC Glucose 193 H 172 H 156 H ALT Alkaline Phosphatase Total Creatine Kinase CK-MB (CK-2) CK-MB (CK-2) Rel Index Troponin T C-Reactive Protein Albumin 03/20/17 03/21/17 03/21/17 23:13 04:42 05:41 WBC RBC Hgb Hct RDW Lymph % (Auto) [place] % (Auto) Lymph # [place] # Seg Neutrophils % Seg Neuts % (Manual) Lymphocytes % (Manual) Monocytes % (Manual) Seg Neutrophils # Seg Neutrophils # Man Lymphocytes # (Manual) Monocytes # (Manual) Heparin Anti-Xa Level POC ABG pH 7.321 L POC ABG pCO2 56.8 H POC ABG pO2 73 L Sodium Potassium Chloride Carbon Dioxide BUN Creatinine Glucose POC Glucose 141 H 159 H ALT Alkaline Phosphatase Total Creatine Kinase CK-MB (CK-2) CK-MB (CK-2) Rel Index Troponin T C-Reactive Protein Albumin 03/21/17 03/21/17 03/21/17 07:45 07:45 12:16 WBC 15.1 H RBC 3.32 L Hgb 9.2 L Hct 28.9 L RDW 17.4 H Lymph % (Auto) 4.7 L [place] % (Auto) 16.0 H Lymph # 0.7 L [place] # 2.4 H Seg Neutrophils % 78.6 H Seg Neuts % (Manual) Lymphocytes % (Manual) Monocytes % (Manual) Seg Neutrophils # 11.8 H Seg Neutrophils # Man Lymphocytes # (Manual) Monocytes # (Manual) Heparin Anti-Xa Level POC ABG pH POC ABG pCO2 POC ABG pO2 Sodium Potassium Chloride 95.4 L Carbon Dioxide BUN 55 H Creatinine 6.9 H Glucose 188 H POC Glucose 226 H ALT Alkaline Phosphatase 244 H Total Creatine Kinase CK-MB (CK-2) CK-MB (CK-2) Rel Index Troponin T C-Reactive Protein Albumin 2.8 L 03/21/17 03/21/17 03/22/17 17:17 23:28 04:49 WBC RBC Hgb Hct RDW Lymph % (Auto) [place] % (Auto) Lymph # [place] # Seg Neutrophils % Seg Neuts % (Manual) Lymphocytes % (Manual) Monocytes % (Manual) Seg Neutrophils # Seg Neutrophils # Man Lymphocytes # (Manual) Monocytes # (Manual) Heparin Anti-Xa Level POC ABG pH 7.323 L POC ABG pCO2 49.5 H POC ABG pO2 77 L Sodium Potassium Chloride Carbon Dioxide BUN Creatinine Glucose POC Glucose 192 H 199 H ALT Alkaline Phosphatase Total Creatine Kinase CK-MB (CK-2) CK-MB (CK-2) Rel Index Troponin T C-Reactive Protein Albumin 03/22/17 03/22/17 03/22/17 06:13 07:40 07:40 WBC 16.4 H RBC 3.29 L Hgb 9.1 L Hct 28.4 L RDW 17.3 H Lymph % (Auto) [place] % (Auto) Lymph # [place] # Seg Neutrophils % Seg Neuts % (Manual) 73.0 H Lymphocytes % (Manual) 8.0 L Monocytes % (Manual) 14.0 H Seg Neutrophils # Seg Neutrophils # Man 12.0 H Lymphocytes # (Manual) Monocytes # (Manual) 2.3 H Heparin Anti-Xa Level POC ABG pH POC ABG pCO2 POC ABG pO2 Sodium Potassium Chloride 94.8 L Carbon Dioxide 21 L BUN 84 H Creatinine 9.4 H Glucose 188 H POC Glucose 190 H ALT Alkaline Phosphatase Total Creatine Kinase CK-MB (CK-2) CK-MB (CK-2) Rel Index Troponin T C-Reactive Protein Albumin Allied health notes reviewed: RT
--- NOTE | 2017-03-22 12:10 | Progress Note ---
Assessment and Plan Increase lopressor to 50mg Q6H and consider Isordil if necessary for BP optimization. The patient has been seen in conjunction with Dr. Velasco who agrees with the assessment and plan of care. - Patient Problems (1) Cardiac arrest Current Visit: Yes Status: Acute (2) STEMI (ST elevation myocardial infarction) Current Visit: Yes Status: Acute Qualifiers: Involved coronary artery: unspecified coronary artery Qualified Code(s): I21.3 - ST elevation (STEMI) myocardial infarction of unspecified site (3) Acute hypoxemic respiratory failure Current Visit: Yes Status: Acute (4) ESRD on dialysis Current Visit: Yes Status: Acute (5) Hypotension Current Visit: Yes Status: Acute Qualifiers: Hypotension type: H Trimester: T (6) Aortic stenosis Current Visit: Yes Status: Chronic Qualifiers: Cardiac valve disease etiology: C (7) Pulmonary HTN Current Visit: Yes Status: Chronic Subjective Date of service: 03/22/17 Principal diagnosis: Acute Hypoxemic Resp Failure; STEMI Interval history: Pt remains intubated, VSS, off pressors. Pt was agitated overnight requiring more sedation. Family at bedside. Objective Last Vital Signs Temp 100 F H 03/22/17 10:20 Pulse 91 H 03/22/17 11:15 Resp 18 03/22/17 10:20 BP 166/72 03/22/17 11:15 Pulse Ox 98 03/22/17 10:20 - Physical Examination General: No Apparent Distress HEENT: Positive: Normocephaly, Mucus Membranes Moist Neck: Positive: neck supple, trachea midline Cardiac: Positive: Reg Rate and Rhythm, S1/S2 Lungs: Positive: Rhonchi, Ventilated Respirations Neuro: Positive: Grossly Intact Abdomen: Positive: Soft, Active Bowel Sounds Skin: Negative: Clear, Rash Musculoskeletal: No Fluid Collection Extremities: Absent: edema - Labs and Meds CBC 03/22/17 Range/Units 07:40 WBC 16.4 H (4.5-11.0) K/mm3 RBC 3.29 L (3.65-5.03) M/mm3 Hgb 9.1 L (10.1-14.3) gm/dl Hct 28.4 L (30.3-42.9) % Plt Count 193 (140-440) K/mm3 Comprehensive Metabolic Panel 03/22/17 Range/Units 07:40 Sodium 138 (137-145) mmol/L Potassium 4.2 (3.6-5.0) mmol/L Chloride 94.8 L (98-107) mmol/L Carbon Dioxide 21 L (22-30) mmol/L BUN 84 H (7-17) mg/dL Creatinine 9.4 H (0.7-1.2) mg/dL Glucose 188 H (65-100) mg/dL Calcium 10.0 (8.4-10.2) mg/dL - Telemetry EKG Rhythm: Sinus Rhythm - Allied health notes Allied health notes reviewed: RT
[2017-03-22] MEDS: PROCRIT IV PRN (14:05)
[2017-03-22] MEDS ORDERED: NACL 0.9% 1000 ML 2,000 ML ONE (14:15)
[2017-03-22] MEDS: MAXIPIME 0.5 GM in NACL 0.9% 100 ML IV SCH (14:30)
[2017-03-22] MEDS: LOPRESSOR PO SCH ×4 (14:55→22:00)
[2017-03-22] MEDS: PLAVIX PO SCH (14:55)
[2017-03-22] MEDS: PEPCID IV SCH ×2 (14:56→22:15)
[2017-03-22] MEDS: HEPARIN SUB-Q SCH (14:57)
[2017-03-22] MEDS: FLAGYL 500 MG/100 ML 500 MG/100 ML BAG IV SCH (22:05)
[2017-03-22] MEDS: SUBLIMAZE IV PRN (22:08)
[2017-03-22] MEDS: ZOFRAN IV PRN (22:10)
[2017-03-23] MEDS: REGLAN IV SCH ×5 (00:07→23:00)
[2017-03-23] MEDS: DUONEB *Not for PRN Use IH SCH ×4 (01:24→20:22)
[2017-03-23] MEDS: SUBLIMAZE IV PRN ×4 (03:36→22:00)
[2017-03-23] MEDS: ZOFRAN IV PRN (03:50)
[2017-03-23] MEDS: FLAGYL 500 MG/100 ML 500 MG/100 ML BAG IV SCH ×3 (04:23→20:06)
[2017-03-23] MEDS: LOPRESSOR PO SCH ×4 (05:51→22:07)
[2017-03-23 06:57] LABS: Hemoglobin 8.5 gm/dl (10.1-14.3); Mean Corpuscular HGB Conc 31 % (30-34); Mean Corpuscular Hemoglobin 28 pg (28-32); Mean Corpuscular Volume 87 fl (79-97); Platelet Count 209 K/mm3 (140-440); Red Blood Count 3.09 M/mm3 (3.65-5.03); Red Cell Distribution Width 17.8 % (13.2-15.2)
[2017-03-23 06:59] LABS: BUN/Creatinine Ratio 10.13; Calcium 10.1 mg/dL (8.4-10.2); Chloride 94.5 mmol/L (98-107); Potassium 4.2 mmol/L (3.6-5.0)
--- NOTE | 2017-03-23 07:02 | Progress Note ---
Assessment and Plan - Patient Problems (1) Sepsis syndrome Current Visit: Yes Status: Acute Plan to address problem: 1. Continue Cefepime and Flagyl empirically. Will discontinue Vancomycin. Subjective Date of service: 03/23/17 Principal diagnosis: Acute Hypoxemic Resp Failure; STEMI Interval history: Low-grade temperature to Tmax 100.1 deg F. Remains intubated in ICU. Objective - Constitutional Vitals: Vital Signs Temp Pulse Resp BP Pulse Ox 99.2 F 80 21 163/63 98 03/23/17 04:00 03/23/17 05:51 03/23/17 03:36 03/23/17 05:51 03/23/17 03:40 Temperature -Last 24 Hours Temperature 99.2 F Temperature 100.1 F Temperature 100.1 F Temperature 99.6 F Temperature 99.3 F Temperature 99.3 F Temperature 100 F Temperature 100.0 F General appearance: Present: no acute distress, obese - EENT ENT: other (ET tube, full tongue) - Neck Neck: supple - Respiratory Respiratory: bilateral: rhonchi (faint) - Cardiovascular Rhythm: regular Heart Sounds: Present: S1 & S2 Extremity abnormal: edema (trace) - Gastrointestinal General gastrointestinal: Present: soft, non-distended, normal bowel sounds - Integumentary Integumentary: no jaundice, no rash - Labs CBC & Chem 7: 03/23/17 05:00 03/23/17 05:00 Labs: Abnormal lab results 03/22/17 03/22/17 03/22/17 Range/Units 04:49 07:40 07:40 WBC 16.4 H (4.5-11.0) K/mm3 RBC 3.29 L (3.65-5.03) M/mm3 Hgb 9.1 L (10.1-14.3) gm/dl Hct 28.4 L (30.3-42.9) % RDW 17.3 H (13.2-15.2) % Seg Neuts % (Manual) 73.0 H (40.0-70.0) % Lymphocytes % (Manual) 8.0 L (13.4-35.0) % Monocytes % (Manual) 14.0 H (0.0-7.3) % Seg Neutrophils # Man 12.0 H (1.8-7.7) K/mm3 Monocytes # (Manual) 2.3 H (0.0-0.8) K/mm3 POC ABG pH 7.323 L (7.35-7.45) POC ABG pCO2 49.5 H (35-45) POC ABG pO2 77 L (80-105) Chloride 94.8 L (98-107) mmol/L Carbon Dioxide 21 L (22-30) mmol/L BUN 84 H (7-17) mg/dL Creatinine 9.4 H (0.7-1.2) mg/dL Glucose 188 H (65-100) mg/dL POC Glucose (70-105) 03/22/17 03/22/17 03/22/17 Range/Units 11:43 17:38 23:56 WBC (4.5-11.0) K/mm3 RBC (3.65-5.03) M/mm3 Hgb (10.1-14.3) gm/dl Hct (30.3-42.9) % RDW (13.2-15.2) % Seg Neuts % (Manual) (40.0-70.0) % Lymphocytes % (Manual) (13.4-35.0) % Monocytes % (Manual) (0.0-7.3) % Seg Neutrophils # Man (1.8-7.7) K/mm3 Monocytes # (Manual) (0.0-0.8) K/mm3 POC ABG pH (7.35-7.45) POC ABG pCO2 (35-45) POC ABG pO2 (80-105) Chloride (98-107) mmol/L Carbon Dioxide (22-30) mmol/L BUN (7-17) mg/dL Creatinine (0.7-1.2) mg/dL Glucose (65-100) mg/dL POC Glucose 149 H 168 H 229 H (70-105) 03/23/17 03/23/17 Range/Units 05:00 05:21 WBC (4.5-11.0) K/mm3 RBC (3.65-5.03) M/mm3 Hgb (10.1-14.3) gm/dl Hct (30.3-42.9) % RDW (13.2-15.2) % Seg Neuts % (Manual) (40.0-70.0) % Lymphocytes % (Manual) (13.4-35.0) % Monocytes % (Manual) (0.0-7.3) % Seg Neutrophils # Man (1.8-7.7) K/mm3 Monocytes # (Manual) (0.0-0.8) K/mm3 POC ABG pH (7.35-7.45) POC ABG pCO2 (35-45) POC ABG pO2 (80-105) Chloride 94.5 L (98-107) mmol/L Carbon Dioxide (22-30) mmol/L BUN 76 H (7-17) mg/dL Creatinine 7.5 H (0.7-1.2) mg/dL Glucose 192 H (65-100) mg/dL POC Glucose 195 H (70-105) Microbiology 03/21/17 Unknown Tracheal Aspirate Sputum Culture - Preliminary 03/21/17 08:47 Tracheal Aspirate Sputum Culture - Preliminary 03/16/17 21:51 Peripheral/Venous Blood Culture - Final NO GROWTH AFTER 5 DAYS 03/16/17 21:43 Peripheral/Venous Blood Culture - Final NO GROWTH AFTER 5 DAYS
[2017-03-23] MEDS ORDERED: APRESOLINE IV PRN (08:53)
[2017-03-23 08:55] LABS: Anisocytosis 1+; Basophils % (Manual) 0 % (0.0-1.8); Blastocytes % (Manual) 0 %
[2017-03-23 08:56] LABS: Diff Status Complete; Hypochromasia Rare
[2017-03-23] MEDS: PEPCID IV SCH ×2 (09:04→22:09)
[2017-03-23] MEDS: HEPARIN SUB-Q SCH (09:04)
[2017-03-23] MEDS: PLAVIX PO SCH (09:05)
--- NOTE | 2017-03-23 09:16 | Progress Note ---
Assessment and Plan - Patient Problems (1) Acute hypoxemic respiratory failure Current Visit: Yes Status: Acute Plan to address problem: Aspiration precautions, HOB> 40 - VAP bundle addressed Lung protective strategies Analgesia and agitation/anxiety management VTE prophylaxis-on heparin infusion(anticoagulated) Stress ulcer prophylaxis Daily SAT/SBT unless otherwise contraindicated Enteric feeding, accuchecks with glycemic control- currently on hold secondary to vomiting Bronchodilators Adjust minute ventilation for better gas-exchange SBTs as tolerated today- goal to liberated from the ventilator if she meets criteria.. (2) Cardiac arrest due to underlying cardiac condition Current Visit: Yes Status: Acute Plan to address problem: Continue cardioprotective measures s/p 2 stents to LAD (3) Seizure Current Visit: Yes Status: Acute Plan to address problem: Neurology following. Follow up MRI (4) ESRD on dialysis Current Visit: Yes Status: Acute Plan to address problem: HD per renal service (5) Acute respiratory acidosis Current Visit: Yes Status: Acute Plan to address problem: Much improved Bronchodilators (6) Obesity (BMI 30-39.9) Current Visit: Yes Status: Acute Plan to address problem: Lifestyle modification after discharge Subjective Date of service: 03/23/17 Principal diagnosis: Acute Hypoxemic Resp Failure; STEMI Interval history: Seen and examined. Vitals ,labs, medications, chart reviewed. No acute overnight events noted. Tolerating tube feeding Awake and alert, obeying simple commands SBT with plan to liberate if she meets criteria- discussed with RT at the bedsdie Currently on amiodarone and fentanyl infusion On mechanical ventilatory support-ETT, no patient ventilator dys-synchrony noted AC-VC 12/500/5/50% Objective Vital Signs - 12hr 03/22/17 03/22/17 03/22/17 21:47 22:00 22:06 Temperature Pulse Rate 89 85 Pulse Rate [ Anterior Bilateral Throughout] Respiratory 22 15 16 Rate Respiratory Rate [Anterior Bilateral Throughout] Respiratory 17 Rate [Right Head] Blood Pressure 160/67 152/59 O2 Sat by Pulse 97 97 Oximetry 03/22/17 03/22/17 03/22/17 22:08 23:00 23:06 Temperature Pulse Rate 84 Pulse Rate [ Anterior Bilateral Throughout] Respiratory 23 16 19 Rate Respiratory Rate [Anterior Bilateral Throughout] Respiratory Rate [Right Head] Blood Pressure 127/42 O2 Sat by Pulse 94 Oximetry 03/22/17 03/23/17 03/23/17 23:43 00:00 01:00 Temperature 100.1 F H Pulse Rate 82 80 83 Pulse Rate [ Anterior Bilateral Throughout] Respiratory 18 22 Rate Respiratory Rate [Anterior Bilateral Throughout] Respiratory Rate [Right Head] Blood Pressure 168/60 146/60 134/61 O2 Sat by Pulse 98 95 95 Oximetry 03/23/17 03/23/17 03/23/17 01:24 01:35 02:00 Temperature Pulse Rate 77 Pulse Rate [ 79 77 Anterior Bilateral Throughout] Respiratory 15 Rate Respiratory 14 14 Rate [Anterior Bilateral Throughout] Respiratory Rate [Right Head] Blood Pressure 136/51 O2 Sat by Pulse 95 Oximetry 03/23/17 03/23/17 03/23/17 03:01 03:36 03:40 Temperature Pulse Rate 88 Pulse Rate [ Anterior Bilateral Throughout] Respiratory 21 Rate Respiratory Rate [Anterior Bilateral Throughout] Respiratory Rate [Right Head] Blood Pressure 140/59 O2 Sat by Pulse 98 Oximetry 03/23/17 03/23/17 03/23/17 04:00 05:00 05:51 Temperature 99.2 F Pulse Rate 87 84 80 Pulse Rate [ Anterior Bilateral Throughout] Respiratory 13 17 Rate Respiratory Rate [Anterior Bilateral Throughout] Respiratory Rate [Right Head] Blood Pressure 150/60 163/67 163/63 O2 Sat by Pulse 96 96 Oximetry 03/23/17 03/23/17 03/23/17 06:00 07:00 08:00 Temperature Pulse Rate 85 80 88 Pulse Rate [ Anterior Bilateral Throughout] Respiratory 20 16 Rate Respiratory Rate [Anterior Bilateral Throughout] Respiratory Rate [Right Head] Blood Pressure 152/62 174/61 186/74 O2 Sat by Pulse 96 94 97 Oximetry 03/23/17 03/23/17 03/23/17 08:39 08:49 08:50 Temperature Pulse Rate 93 H Pulse Rate [ 83 82 Anterior Bilateral Throughout] Respiratory 20 Rate Respiratory 16 19 Rate [Anterior Bilateral Throughout] Respiratory Rate [Right Head] Blood Pressure 186/74 O2 Sat by Pulse 98 Oximetry 03/23/17 09:04 Temperature Pulse Rate 95 H Pulse Rate [ Anterior Bilateral Throughout] Respiratory Rate Respiratory Rate [Anterior Bilateral Throughout] Respiratory Rate [Right Head] Blood Pressure 186/74 O2 Sat by Pulse Oximetry Constitutional: no acute distress, other (intubated orally, ETT to vent- awake alert, able to lift her head unsupported) Eyes: non-icteric ENT: oropharynx moist Neck: supple, no lymphadenopathy, no JVD Effort: normal, mildly labored Ascultation: Bilateral: diminished breath sounds, rales (scant in bases) Cardiovascular: regular rate and rhythm Gastrointestinal: normoactive bowel sounds, soft, non-tender, non-distended Integumentary: normal, other (Femoral CVC) Extremities: no cyanosis, no edema, pulses normal, no ischemia or petechiae Neurologic: non-focal exam (Moves all extremities, tracks my voice, attempts to vocalize in response to questions), unable to assess Psychiatric: other (unable to assess) CBC and BMP: 03/23/17 05:00 03/23/17 05:00 ABG, PT/INR, D-dimer: ABG POC ABG pH 7.323 (7.35-7.45) L 03/22/17 04:49 POC ABG pCO2 49.5 (35-45) H 03/22/17 04:49 POC ABG pO2 77 (80-105) L 03/22/17 04:49 POC ABG HCO3 25.7 03/22/17 04:49 POC ABG Total CO2 27 03/22/17 04:49 POC ABG O2 Sat 94 03/22/17 04:49 PT/INR, D-dimer PT 13.4 Sec. (12.2-14.9) 03/16/17 11:07 INR 1.03 (0.87-1.13) 03/16/17 11:07 Abnormal lab findings: Abnormal Labs 03/16/17 03/16/17 03/17/17 16:36 18:00 03:42 WBC 20.6 H RBC Hgb Hct RDW 17.3 H Lymph % (Auto) Brule % (Auto) Lymph # Brule # Seg Neutrophils % Seg Neuts % (Manual) 84.0 H Lymphocytes % (Manual) 3.0 L Monocytes % (Manual) 11.0 H Seg Neutrophils # Seg Neutrophils # Man 17.3 H Lymphocytes # (Manual) 0.6 L Monocytes # (Manual) 2.3 H Heparin Anti-Xa Level POC ABG pH 7.336 L POC ABG pCO2 47.9 H POC ABG pO2 189 H Sodium Potassium Chloride Carbon Dioxide BUN Creatinine Glucose POC Glucose ALT Alkaline Phosphatase Total Creatine Kinase 282 H CK-MB (CK-2) 24.2 H CK-MB (CK-2) Rel Index 8.5 H Troponin T 0.656 H* D C-Reactive Protein Albumin 03/17/17 03/17/17 03/17/17 03:42 04:21 17:15 WBC RBC Hgb Hct RDW Lymph % (Auto) Brule % (Auto) Lymph # Brule # Seg Neutrophils % Seg Neuts % (Manual) Lymphocytes % (Manual) Monocytes % (Manual) Seg Neutrophils # Seg Neutrophils # Man Lymphocytes # (Manual) Monocytes # (Manual) Heparin Anti-Xa Level 0.10 L POC ABG pH POC ABG pCO2 POC ABG pO2 Sodium 131 L Potassium 5.3 H D Chloride 89.5 L Carbon Dioxide 21 L BUN 39 H Creatinine 7.0 H Glucose 151 H POC Glucose ALT Alkaline Phosphatase Total Creatine Kinase CK-MB (CK-2) CK-MB (CK-2) Rel Index Troponin T C-Reactive Protein 33.90 H Albumin 03/17/17 03/18/17 03/18/17 21:12 03:33 03:33 WBC 17.6 H RBC 3.59 L Hgb Hct RDW 16.9 H Lymph % (Auto) 4.2 L Brule % (Auto) 11.8 H Lymph # 0.7 L Brule # 2.1 H Seg Neutrophils % 83.3 H Seg Neuts % (Manual) Lymphocytes % (Manual) Monocytes % (Manual) Seg Neutrophils # 14.7 H Seg Neutrophils # Man Lymphocytes # (Manual) Monocytes # (Manual) Heparin Anti-Xa Level < 0.10 L POC ABG pH POC ABG pCO2 POC ABG pO2 Sodium 127 L Potassium 6.1 H* Chloride 87.2 L Carbon Dioxide BUN 55 H Creatinine 8.7 H Glucose 140 H POC Glucose ALT Alkaline Phosphatase Total Creatine Kinase CK-MB (CK-2) CK-MB (CK-2) Rel Index Troponin T C-Reactive Protein Albumin 03/18/17 03/18/17 03/19/17 04:34 22:15 00:04 WBC RBC Hgb Hct RDW Lymph % (Auto) Brule % (Auto) Lymph # Brule # Seg Neutrophils % Seg Neuts % (Manual) Lymphocytes % (Manual) Monocytes % (Manual) Seg Neutrophils # Seg Neutrophils # Man Lymphocytes # (Manual) Monocytes # (Manual) Heparin Anti-Xa Level POC ABG pH 7.289 L POC ABG pCO2 48.7 H POC ABG pO2 Sodium Potassium 5.6 H Chloride Carbon Dioxide BUN Creatinine Glucose POC Glucose 108 H ALT Alkaline Phosphatase Total Creatine Kinase CK-MB (CK-2) CK-MB (CK-2) Rel Index Troponin T C-Reactive Protein Albumin 03/19/17 03/19/17 03/19/17 05:22 08:00 08:00 WBC 16.3 H RBC 3.15 L Hgb 8.8 L Hct 27.3 L RDW 17.4 H Lymph % (Auto) 3.4 L Brule % (Auto) 10.1 H Lymph # 0.5 L Brule # 1.7 H Seg Neutrophils % 85.4 H Seg Neuts % (Manual) Lymphocytes % (Manual) Monocytes % (Manual) Seg Neutrophils # 13.9 H Seg Neutrophils # Man Lymphocytes # (Manual) Monocytes # (Manual) Heparin Anti-Xa Level POC ABG pH POC ABG pCO2 POC ABG pO2 Sodium 131 L Potassium Chloride 89.3 L Carbon Dioxide BUN 56 H Creatinine 7.8 H Glucose 122 H POC Glucose 146 H ALT 59 H Alkaline Phosphatase 208 H Total Creatine Kinase CK-MB (CK-2) CK-MB (CK-2) Rel Index Troponin T C-Reactive Protein Albumin 2.6 L 03/19/17 03/19/17 03/19/17 08:06 11:50 17:36 WBC RBC Hgb Hct RDW Lymph % (Auto) Brule % (Auto) Lymph # Brule # Seg Neutrophils % Seg Neuts % (Manual) Lymphocytes % (Manual) Monocytes % (Manual) Seg Neutrophils # Seg Neutrophils # Man Lymphocytes # (Manual) Monocytes # (Manual) Heparin Anti-Xa Level POC ABG pH 7.338 L POC ABG pCO2 49.2 H POC ABG pO2 110 H Sodium Potassium Chloride Carbon Dioxide BUN Creatinine Glucose POC Glucose 172 H 152 H ALT Alkaline Phosphatase Total Creatine Kinase CK-MB (CK-2) CK-MB (CK-2) Rel Index Troponin T C-Reactive Protein Albumin 03/20/17 03/20/17 03/20/17 00:14 04:15 05:06 WBC RBC Hgb Hct RDW Lymph % (Auto) Brule % (Auto) Lymph # Brule # Seg Neutrophils % Seg Neuts % (Manual) Lymphocytes % (Manual) Monocytes % (Manual) Seg Neutrophils # Seg Neutrophils # Man Lymphocytes # (Manual) Monocytes # (Manual) Heparin Anti-Xa Level POC ABG pH 7.288 L POC ABG pCO2 51.4 H POC ABG pO2 Sodium Potassium Chloride Carbon Dioxide BUN Creatinine Glucose POC Glucose 132 H 166 H ALT Alkaline Phosphatase Total Creatine Kinase CK-MB (CK-2) CK-MB (CK-2) Rel Index Troponin T C-Reactive Protein Albumin 03/20/17 03/20/17 03/20/17 12:07 15:45 17:41 WBC RBC Hgb Hct RDW Lymph % (Auto) Brule % (Auto) Lymph # Brule # Seg Neutrophils % Seg Neuts % (Manual) Lymphocytes % (Manual) Monocytes % (Manual) Seg Neutrophils # Seg Neutrophils # Man Lymphocytes # (Manual) Monocytes # (Manual) Heparin Anti-Xa Level POC ABG pH POC ABG pCO2 POC ABG pO2 Sodium Potassium Chloride Carbon Dioxide BUN Creatinine Glucose POC Glucose 193 H 172 H 156 H ALT Alkaline Phosphatase Total Creatine Kinase CK-MB (CK-2) CK-MB (CK-2) Rel Index Troponin T C-Reactive Protein Albumin 03/20/17 03/21/17 03/21/17 23:13 04:42 05:41 WBC RBC Hgb Hct RDW Lymph % (Auto) Brule % (Auto) Lymph # Brule # Seg Neutrophils % Seg Neuts % (Manual) Lymphocytes % (Manual) Monocytes % (Manual) Seg Neutrophils # Seg Neutrophils # Man Lymphocytes # (Manual) Monocytes # (Manual) Heparin Anti-Xa Level POC ABG pH 7.321 L POC ABG pCO2 56.8 H POC ABG pO2 73 L Sodium Potassium Chloride Carbon Dioxide BUN Creatinine Glucose POC Glucose 141 H 159 H ALT Alkaline Phosphatase Total Creatine Kinase CK-MB (CK-2) CK-MB (CK-2) Rel Index Troponin T C-Reactive Protein Albumin 03/21/17 03/21/17 03/21/17 07:45 07:45 12:16 WBC 15.1 H RBC 3.32 L Hgb 9.2 L Hct 28.9 L RDW 17.4 H Lymph % (Auto) 4.7 L Brule % (Auto) 16.0 H Lymph # 0.7 L Brule # 2.4 H Seg Neutrophils % 78.6 H Seg Neuts % (Manual) Lymphocytes % (Manual) Monocytes % (Manual) Seg Neutrophils # 11.8 H Seg Neutrophils # Man Lymphocytes # (Manual) Monocytes # (Manual) Heparin Anti-Xa Level POC ABG pH POC ABG pCO2 POC ABG pO2 Sodium Potassium Chloride 95.4 L Carbon Dioxide BUN 55 H Creatinine 6.9 H Glucose 188 H POC Glucose 226 H ALT Alkaline Phosphatase 244 H Total Creatine Kinase CK-MB (CK-2) CK-MB (CK-2) Rel Index Troponin T C-Reactive Protein Albumin 2.8 L 03/21/17 03/21/17 03/22/17 17:17 23:28 04:49 WBC RBC Hgb Hct RDW Lymph % (Auto) Brule % (Auto) Lymph # Brule # Seg Neutrophils % Seg Neuts % (Manual) Lymphocytes % (Manual) Monocytes % (Manual) Seg Neutrophils # Seg Neutrophils # Man Lymphocytes # (Manual) Monocytes # (Manual) Heparin Anti-Xa Level POC ABG pH 7.323 L POC ABG pCO2 49.5 H POC ABG pO2 77 L Sodium Potassium Chloride Carbon Dioxide BUN Creatinine Glucose POC Glucose 192 H 199 H ALT Alkaline Phosphatase Total Creatine Kinase CK-MB (CK-2) CK-MB (CK-2) Rel Index Troponin T C-Reactive Protein Albumin 03/22/17 03/22/17 03/22/17 06:13 07:40 07:40 WBC 16.4 H RBC 3.29 L Hgb 9.1 L Hct 28.4 L RDW 17.3 H Lymph % (Auto) Brule % (Auto) Lymph # Brule # Seg Neutrophils % Seg Neuts % (Manual) 73.0 H Lymphocytes % (Manual) 8.0 L Monocytes % (Manual) 14.0 H Seg Neutrophils # Seg Neutrophils # Man 12.0 H Lymphocytes # (Manual) Monocytes # (Manual) 2.3 H Heparin Anti-Xa Level POC ABG pH POC ABG pCO2 POC ABG pO2 Sodium Potassium Chloride 94.8 L Carbon Dioxide 21 L BUN 84 H Creatinine 9.4 H Glucose 188 H POC Glucose 190 H ALT Alkaline Phosphatase Total Creatine Kinase CK-MB (CK-2) CK-MB (CK-2) Rel Index Troponin T C-Reactive Protein Albumin 03/22/17 03/22/17 03/22/17 11:43 17:38 23:56 WBC RBC Hgb Hct RDW Lymph % (Auto) Brule % (Auto) Lymph # Brule # Seg Neutrophils % Seg Neuts % (Manual) Lymphocytes % (Manual) Monocytes % (Manual) Seg Neutrophils # Seg Neutrophils # Man Lymphocytes # (Manual) Monocytes # (Manual) Heparin Anti-Xa Level POC ABG pH POC ABG pCO2 POC ABG pO2 Sodium Potassium Chloride Carbon Dioxide BUN Creatinine Glucose POC Glucose 149 H 168 H 229 H ALT Alkaline Phosphatase Total Creatine Kinase CK-MB (CK-2) CK-MB (CK-2) Rel Index Troponin T C-Reactive Protein Albumin 03/23/17 03/23/17 03/23/17 05:00 05:00 05:21 WBC 14.0 H RBC 3.09 L Hgb 8.5 L Hct 27.0 L RDW 17.8 H Lymph % (Auto) Brule % (Auto) Lymph # Brule # Seg Neutrophils % Seg Neuts % (Manual) Lymphocytes % (Manual) 11.0 L Monocytes % (Manual) 13.0 H Seg Neutrophils # Seg Neutrophils # Man 9.2 H Lymphocytes # (Manual) Monocytes # (Manual) 1.8 H Heparin Anti-Xa Level POC ABG pH POC ABG pCO2 POC ABG pO2 Sodium Potassium Chloride 94.5 L Carbon Dioxide BUN 76 H Creatinine 7.5 H Glucose 192 H POC Glucose 195 H ALT Alkaline Phosphatase Total Creatine Kinase CK-MB (CK-2) CK-MB (CK-2) Rel Index Troponin T C-Reactive Protein Albumin Allied health notes reviewed: RT
--- NOTE | 2017-03-23 09:31 | Progress Note ---
Assessment and Plan Impression * End-stage renal disease on maintenance hemodialysis * Status post V. fib cardiac arrest * Hypertension * s/p PCI * Diabetes * History of breast cancer * Anemia secondary to ESRD * Hyperlipidemia Recommendations * dialysis qMWF and prn * low k bath with hd * uf as tolerated * AV fistula is still functional. Has a good bruit and thrill * No IV BP or venipuncture access arm * Adjust diet and meds for ESRD state * Her outpatient days are Tuesdays and Saturdays Subjective Date of service: 03/23/17 Principal diagnosis: Acute Hypoxemic Resp Failure; STEMI Interval history: resting in bed, events noted Objective - Exam Narrative Exam: General appearance: well-developed, well-nourished, appears stated age, intubated EENT: PERRL, mucous membranes moist Neck: no JVD, no thyromegaly, no carotid bruit, supple Respiratory: Present: Clear to Ascultation Cardiology: regular, normal heart rate Gastrointestinal: normal, normoactive bowel sounds Integumentary: no rash, other (AV fistula in her left upper arm. Good bruit and thrill) - Vital Signs Vital signs: Vital Signs - 12hr 03/22/17 03/22/17 03/22/17 21:47 22:00 22:06 Temperature Pulse Rate 89 85 Pulse Rate [ Anterior Bilateral Throughout] Respiratory 22 15 16 Rate Respiratory Rate [Anterior Bilateral Throughout] Respiratory 17 Rate [Right Head] Blood Pressure 160/67 152/59 O2 Sat by Pulse 97 97 Oximetry 03/22/17 03/22/17 03/22/17 22:08 23:00 23:06 Temperature Pulse Rate 84 Pulse Rate [ Anterior Bilateral Throughout] Respiratory 23 16 19 Rate Respiratory Rate [Anterior Bilateral Throughout] Respiratory Rate [Right Head] Blood Pressure 127/42 O2 Sat by Pulse 94 Oximetry 03/22/17 03/23/17 03/23/17 23:43 00:00 01:00 Temperature 100.1 F H Pulse Rate 82 80 83 Pulse Rate [ Anterior Bilateral Throughout] Respiratory 18 22 Rate Respiratory Rate [Anterior Bilateral Throughout] Respiratory Rate [Right Head] Blood Pressure 168/60 146/60 134/61 O2 Sat by Pulse 98 95 95 Oximetry 03/23/17 03/23/17 03/23/17 01:24 01:35 02:00 Temperature Pulse Rate 77 Pulse Rate [ 79 77 Anterior Bilateral Throughout] Respiratory 15 Rate Respiratory 14 14 Rate [Anterior Bilateral Throughout] Respiratory Rate [Right Head] Blood Pressure 136/51 O2 Sat by Pulse 95 Oximetry 03/23/17 03/23/17 03/23/17 03:01 03:36 03:40 Temperature Pulse Rate 88 Pulse Rate [ Anterior Bilateral Throughout] Respiratory 21 Rate Respiratory Rate [Anterior Bilateral Throughout] Respiratory Rate [Right Head] Blood Pressure 140/59 O2 Sat by Pulse 98 Oximetry 03/23/17 03/23/17 03/23/17 04:00 05:00 05:51 Temperature 99.2 F Pulse Rate 87 84 80 Pulse Rate [ Anterior Bilateral Throughout] Respiratory 13 17 Rate Respiratory Rate [Anterior Bilateral Throughout] Respiratory Rate [Right Head] Blood Pressure 150/60 163/67 163/63 O2 Sat by Pulse 96 96 Oximetry 03/23/17 03/23/17 03/23/17 06:00 07:00 08:00 Temperature Pulse Rate 85 80 88 Pulse Rate [ Anterior Bilateral Throughout] Respiratory 20 16 Rate Respiratory Rate [Anterior Bilateral Throughout] Respiratory Rate [Right Head] Blood Pressure 152/62 174/61 186/74 O2 Sat by Pulse 96 94 97 Oximetry 03/23/17 03/23/17 03/23/17 08:39 08:49 08:50 Temperature Pulse Rate 93 H Pulse Rate [ 83 82 Anterior Bilateral Throughout] Respiratory 20 Rate Respiratory 16 19 Rate [Anterior Bilateral Throughout] Respiratory Rate [Right Head] Blood Pressure 186/74 O2 Sat by Pulse 98 Oximetry 03/23/17 09:04 Temperature Pulse Rate 95 H Pulse Rate [ Anterior Bilateral Throughout] Respiratory Rate Respiratory Rate [Anterior Bilateral Throughout] Respiratory Rate [Right Head] Blood Pressure 186/74 O2 Sat by Pulse Oximetry - Lab 03/23/17 05:00 03/23/17 05:00 Most recent lab results Calcium 10.1 mg/dL (8.4-10.2) 03/23/17 05:00
[2017-03-23] MEDS: HALDOL IV PRN ×3 (09:32→22:10)
[2017-03-23] MEDS: MAXIPIME 0.5 GM in NACL 0.9% 100 ML IV SCH (09:32)
--- NOTE | 2017-03-23 12:08 | Progress Note ---
Subjective Date of service: 03/23/17 Principal diagnosis: Acute Hypoxemic Resp Failure; STEMI Objective Vital Signs Temp Pulse Pulse Pulse Resp Resp Resp 03/23/17 11:01 77 27 H 03/23/17 10:08 70 17 03/23/17 10:01 74 21 03/23/17 10:00 72 03/23/17 09:04 95 H 03/23/17 09:00 89 17 03/23/17 08:50 93 H 20 03/23/17 08:49 82 19 03/23/17 08:39 83 16 03/23/17 08:00 98.7 F 92 H 19 03/23/17 07:00 80 16 03/23/17 06:00 85 20 03/23/17 05:51 80 03/23/17 05:00 84 17 03/23/17 04:06 21 03/23/17 04:00 99.2 F 87 73 13 03/23/17 03:40 88 03/23/17 03:36 21 03/23/17 03:01 03/23/17 02:00 77 15 03/23/17 01:35 77 14 03/23/17 01:24 79 14 03/23/17 01:00 83 22 03/23/17 00:00 100.1 F H 80 89 18 03/22/17 23:43 82 03/22/17 23:06 19 03/22/17 23:00 84 16 03/22/17 22:38 19 03/22/17 22:08 23 03/22/17 22:06 16 03/22/17 22:00 85 15 17 03/22/17 21:47 89 22 03/22/17 21:00 92 H 25 H 03/22/17 20:01 85 29 H 03/22/17 20:00 100.1 F H 77 03/22/17 19:57 89 22 03/22/17 19:47 86 23 03/22/17 19:44 91 H 03/22/17 19:00 89 18 03/22/17 18:00 85 26 H 03/22/17 17:00 75 14 03/22/17 16:47 76 16 03/22/17 16:40 77 03/22/17 16:01 84 13 03/22/17 16:00 99.6 F 86 03/22/17 15:00 110 H 22 06/23/17 14:55 110 H 03/22/17 14:45 94 H 16 03/22/17 14:15 99.3 F 92 H 12 03/22/17 14:05 91 H 16 03/22/17 14:00 92 H 14 03/22/17 13:50 98 H 03/22/17 13:30 100 H 03/22/17 13:15 102 H 03/22/17 13:00 107 H 20 03/22/17 12:45 98 H 03/22/17 12:30 101 H 03/22/17 12:15 101 H 03/22/17 12:10 96 H BP Pulse Ox Pulse Ox 03/23/17 11:01 191/76 100 03/23/17 10:08 141/53 98 03/23/17 10:01 141/53 97 03/23/17 10:00 03/23/17 09:04 186/74 03/23/17 09:00 171/67 94 03/23/17 08:50 186/74 98 03/23/17 08:49 03/23/17 08:39 03/23/17 08:00 186/74 95 03/23/17 07:00 174/61 94 03/23/17 06:00 152/62 96 03/23/17 05:51 163/63 03/23/17 05:00 163/67 96 03/23/17 04:06 03/23/17 04:00 150/60 99 03/23/17 03:40 98 03/23/17 03:36 03/23/17 03:01 140/59 03/23/17 02:00 136/51 95 03/23/17 01:35 03/23/17 01:24 03/23/17 01:00 134/61 95 03/23/17 00:00 146/60 99 03/22/17 23:43 168/60 98 03/22/17 23:06 03/22/17 23:00 127/42 94 03/22/17 22:38 03/22/17 22:08 03/22/17 22:06 03/22/17 22:00 152/59 97 03/22/17 21:47 160/67 97 03/22/17 21:00 175/62 95 03/22/17 20:01 135/54 94 03/22/17 20:00 97 03/22/17 19:57 03/22/17 19:47 03/22/17 19:44 129/87 96 03/22/17 19:00 138/70 95 03/22/17 18:00 175/66 94 03/22/17 17:00 128/50 96 03/22/17 16:47 128/53 100 03/22/17 16:40 128/53 99 03/22/17 16:01 131/49 03/22/17 16:00 98 03/22/17 15:00 177/76 92 03/22/17 14:55 196/69 03/22/17 14:45 03/22/17 14:15 144/58 95 03/22/17 14:05 03/22/17 14:00 144/58 96 03/22/17 13:50 105/80 03/22/17 13:30 99/55 03/22/17 13:15 136/65 03/22/17 13:00 154/76 92 03/22/17 12:45 149/74 03/22/17 12:30 168/70 03/22/17 12:15 159/84 03/22/17 12:10 160/68 96 - Physical Examination General: No Apparent Distress HEENT: Positive: Normocephaly, Mucus Membranes Moist Neck: Positive: neck supple, trachea midline Neuro: Positive: Grossly Intact Abdomen: Positive: Soft, Active Bowel Sounds Skin: Negative: Clear, Rash Musculoskeletal: No Fluid Collection Extremities: Absent: edema - Labs and Meds CBC 03/23/17 Range/Units 05:00 WBC 14.0 H (4.5-11.0) K/mm3 RBC 3.09 L (3.65-5.03) M/mm3 Hgb 8.5 L (10.1-14.3) gm/dl Hct 27.0 L (30.3-42.9) % Plt Count 209 (140-440) K/mm3 Lymph # Industrial Design Engineer Dale # Industrial Design Engineer Eos # Industrial Design Engineer Baso # Industrial Design Engineer Comprehensive Metabolic Panel 03/23/17 Range/Units 05:00 Sodium 139 (137-145) mmol/L Potassium 4.2 (3.6-5.0) mmol/L Chloride 94.5 L (98-107) mmol/L Carbon Dioxide 23 (22-30) mmol/L BUN 76 H (7-17) mg/dL Creatinine 7.5 H (0.7-1.2) mg/dL Glucose 192 H (65-100) mg/dL Calcium 10.1 (8.4-10.2) mg/dL - Allied health notes Allied health notes reviewed: RT
--- NOTE | 2017-03-23 12:14 | Progress Note ---
Assessment and Plan BP still high 164/50 mm Hg. ON IV hydralazine - PRN.Hg 8.5.Respiratory status improving. Present management. Discussed with the patient's daughter at bedside.CKD on HD. F/U with Special Effects Person. - Patient Problems (1) Acute hypoxemic respiratory failure Current Visit: Yes Status: Acute (2) Cardiac arrest Current Visit: Yes Status: Acute (3) Cardiac arrest due to underlying cardiac condition Current Visit: Yes Status: Acute (4) ESRD on dialysis Current Visit: Yes Status: Acute (5) Obesity (BMI 30-39.9) Current Visit: Yes Status: Chronic (6) STEMI (ST elevation myocardial infarction) Current Visit: Yes Status: Acute Qualifiers: Involved coronary artery: unspecified coronary artery Qualified Code(s): I21.3 - ST elevation (STEMI) myocardial infarction of unspecified site (7) Seizure Current Visit: Yes Status: Acute (8) Sepsis syndrome Current Visit: Yes Status: Acute (9) Aortic stenosis Current Visit: Yes Status: Chronic Qualifiers: Cardiac valve disease etiology: C (10) Pulmonary HTN Current Visit: Yes Status: Chronic (11) CVA (cerebral vascular accident) Current Visit: No Status: Acute Qualifiers: CVA mechanism: C Precerebral and cerebral artery: P Laterality of affected vessel: L (12) Kidney stone Current Visit: No Status: Chronic (13) Rectal bleed Current Visit: No Status: Acute (14) UTI (urinary tract infection) Current Visit: No Status: Acute Qualifiers: Urinary tract infection type: U Hematuria presence: H Indwelling urinary catheter type: I Encounter type: E (15) Hypertension Current Visit: No Status: Chronic Qualifiers: Hypertension type: H (16) Type 2 diabetes mellitus Current Visit: No Status: Chronic Qualifiers: Diabetes mellitus complication status: D Diabetes mellitus complication detail: D Diabetic retinopathy severity: D Proliferative retinopathy type: P Diabetes mellitus macular edema: D 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 intubated. responds to commands.Sinus rhythm. Objective Vital Signs Temp Pulse Pulse Pulse Resp Resp Resp 03/23/17 11:01 77 27 H 03/23/17 10:08 70 17 03/23/17 10:01 74 21 03/23/17 10:00 72 03/23/17 09:04 95 H 03/23/17 09:00 89 17 03/23/17 08:50 93 H 20 03/23/17 08:49 82 19 03/23/17 08:39 83 16 03/23/17 08:00 98.7 F 92 H 19 03/23/17 07:00 80 16 03/23/17 06:00 85 20 03/23/17 05:51 80 03/23/17 05:00 84 17 03/23/17 04:06 21 03/23/17 04:00 99.2 F 87 73 13 03/23/17 03:40 88 03/23/17 03:36 21 03/23/17 03:01 03/23/17 02:00 77 15 03/23/17 01:35 77 14 03/23/17 01:24 79 14 03/23/17 01:00 83 22 03/23/17 00:00 100.1 F H 80 89 18 03/22/17 23:43 82 03/22/17 23:06 19 03/22/17 23:00 84 16 03/22/17 22:38 19 03/22/17 22:08 23 03/22/17 22:06 16 03/22/17 22:00 85 15 17 03/22/17 21:47 89 22 03/22/17 21:00 92 H 25 H 03/22/17 20:01 85 29 H 03/22/17 20:00 100.1 F H 77 03/22/17 19:57 89 22 03/22/17 19:47 86 23 03/22/17 19:44 91 H 03/22/17 19:00 89 18 03/22/17 18:00 85 26 H 03/22/17 17:00 75 14 03/22/17 16:47 76 16 03/22/17 16:40 77 03/22/17 16:01 84 13 03/22/17 16:00 99.6 F 86 03/22/17 15:00 110 H 22 03/22/17 14:55 110 H 03/22/17 14:45 94 H 16 03/22/17 14:15 99.3 F 92 H 12 03/22/17 14:05 91 H 16 03/22/17 14:00 92 H 14 03/22/17 13:50 98 H 03/22/17 13:30 100 H 03/22/17 13:15 102 H 03/22/17 13:00 107 H 20 03/22/17 12:45 98 H 03/22/17 12:30 101 H 03/22/17 12:15 101 H BP Pulse Ox Pulse Ox 03/23/17 11:01 191/76 100 03/23/17 10:08 141/53 98 03/23/17 10:01 141/53 97 03/23/17 10:00 03/23/17 09:04 186/74 03/23/17 09:00 171/67 94 03/23/17 08:50 186/74 98 03/23/17 08:49 03/23/17 08:39 03/23/17 08:00 186/74 95 03/23/17 07:00 174/61 94 03/23/17 06:00 152/62 96 03/23/17 05:51 163/63 03/23/17 05:00 163/67 96 03/23/17 04:06 03/23/17 04:00 150/60 99 03/23/17 03:40 98 03/23/17 03:36 03/23/17 03:01 140/59 03/23/17 02:00 136/51 95 03/23/17 01:35 03/23/17 01:24 03/23/17 01:00 134/61 95 03/23/17 00:00 146/60 99 03/22/17 23:43 168/60 98 03/22/17 23:06 03/22/17 23:00 127/42 94 03/22/17 22:38 03/22/17 22:08 03/22/17 22:06 03/22/17 22:00 152/59 97 03/22/17 21:47 160/67 97 03/22/17 21:00 175/62 95 03/22/17 20:01 135/54 94 03/22/17 20:00 97 03/22/17 19:57 03/22/17 19:47 03/22/17 19:44 129/87 96 03/22/17 19:00 138/70 95 03/22/17 18:00 175/66 94 03/22/17 17:00 128/50 96 03/22/17 16:47 128/53 100 03/22/17 16:40 128/53 99 03/22/17 16:01 131/49 03/22/17 16:00 98 03/22/17 15:00 177/76 92 03/22/17 14:55 196/69 03/22/17 14:45 03/22/17 14:15 144/58 95 03/22/17 14:05 03/22/17 14:00 144/58 96 03/22/17 13:50 105/80 03/22/17 13:30 99/55 03/22/17 13:15 136/65 03/22/17 13:00 154/76 92 03/22/17 12:45 149/74 03/22/17 12:30 168/70 03/22/17 12:15 159/84 - Physical Examination General: No Apparent Distress, Other (Intubated, 30% FIO2, Peep 5) HEENT: Positive: Normocephaly, Mucus Membranes Moist Neck: Positive: neck supple, trachea midline Cardiac: Positive: Reg Rate and Rhythm Lungs: Positive: clear to auscultation, Normal Breath Sounds, No Wheeze, Rales, Rhonchi Neuro: Positive: Grossly Intact Abdomen: Positive: Soft, Active Bowel Sounds Skin: Negative: Clear, Rash Musculoskeletal: No Fluid Collection, No Pain, Normal Range of Motion Extremities: Absent: edema - Labs and Meds CBC 03/23/17 Range/Units 05:00 WBC 14.0 H (4.5-11.0) K/mm3 RBC 3.09 L (3.65-5.03) M/mm3 Hgb 8.5 L (10.1-14.3) gm/dl Hct 27.0 L (30.3-42.9) % Plt Count 209 (140-440) K/mm3 Lymph # Credit Office Manager [place] # Credit Office Manager Eos # Credit Office Manager Baso # Credit Office Manager Comprehensive Metabolic Panel 03/23/17 Range/Units 05:00 Sodium 139 (137-145) mmol/L Potassium 4.2 (3.6-5.0) mmol/L Chloride 94.5 L (98-107) mmol/L Carbon Dioxide 23 (22-30) mmol/L BUN 76 H (7-17) mg/dL Creatinine 7.5 H (0.7-1.2) mg/dL Glucose 192 H (65-100) mg/dL Calcium 10.1 (8.4-10.2) mg/dL - Imaging and Cardiology EKG: report reviewed, image reviewed - Telemetry EKG Rhythm: Sinus Rhythm - EKG Sinus rhythms and dysrhythmias: sinus rhythm Myocardial infarction: inferior MD (acute or rec, anterior MD (acute or rec - Allied health notes Allied health notes reviewed: RT
[2017-03-23 12:32] LABS: ISTAT Base Excess 2; ISTAT HCO3 26.5; ISTAT PH 7.388 (7.35-7.45); ISTAT PO2 87 (80-105); ISTAT SO2 96; ISTAT TCO2 28
--- NOTE | 2017-03-23 16:28 | Progress Note ---
Assessment and Plan Assessment and plan: 66-year-old female presents to the emergency department complaining of chest pain after dialysis. While in triage, the patient went unresponsive, and without a pulse, No palpable pulses were identified. 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 Patient was defibrillated a single time with 200 J. She received CPR protocol, was intubated and had ROSC, and she was then taken to the ICU. Postarrest ECG was consistent with anterior STEMI. Code STEMI was activated, she was taken to microbiology lab technician and received angiogram ; stent x 2 in LAD noted to be patent, but had distal LAD spasm Cardiovascular cardiac arrest; Vfib, STEMI, ACS, Distal LAD spasm Cardiology input appreciated, status post cath with patent stents she was rx with amio drip, received heparin ggt x 24 hours, received Dopamine drip for Cardiogenic shock and hypotension,now improved; currently on Lopressor -Hypertension. continue antihypertensive medications -Hyperlipidemia- Continue statin therapy Pulmonary Acute hypoxic respiratory failure, mech vent >96 hours Continue ventilator will continue to attempt to wean daily, pulmonary input appreciated GI Nausea/Vomiting- Start on zofran, now resolved Toxic metabolic encephalopathy EEG was reviewed, seizure is unlikely. encephalopathy most likely due to acute illness, cardiac arrest and IV sedation now improved, Neurology input appreciated ID Sepsis syndrome; ID consult appreciated, Continue current empiric therapy. Follow clinically for localizing issues., fup cx of trachial aspirate WBC count is slowly downtrending. RENAL/FEN End stage renal disease on hemodialysis. Nephrology following. Continue hemodialysis Hyperkalemia-corrected with dialysis Diabetes mellitus type 2. Accu-Cheks and sliding scale insulin. Morbid obesity- counselling once extubated. Anemia of CKD. Follow H&H. Transfuse as necessary. History of breast cancer. 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 The aggregate critical care time was [35] minutes. This time is in addition to time spent performing reported procedures but includes the following: [x] Data Review and interpretation [x] Patient assessment and monitoring of vital signs [x] Documentation [x] Medication orders and management History Interval history: Patient is currently intubated, she obeys commands he nods her head today was a squeeze my hands. Hospitalist Physical - Physical exam Narrative exam: General: Patient appears well in no distress HEENT: MMM, EOMI cardiac: S1-S2 heard lungs: clear to auscultation, abdomen: soft, nontender, nondistended bowel sounds positive extremities: no edema clubbing or cyanosis Skin: no rash or lesion Neuro: Intubated, opens eyes of days, and shakes and nods heads. obeys commands - Constitutional Vitals: Temp Pulse Resp BP Pulse Ox 99.7 F H 72 19 143/55 98 03/23/17 12:00 03/23/17 16:22 03/23/17 16:22 03/23/17 16:22 03/23/17 16:22 General appearance: Present: no acute distress, obese Results - Labs CBC & Chem 7: 03/25/17 04:38 03/25/17 04:38 Labs: Laboratory Last Values WBC 14.0 K/mm3 (4.5-11.0) H 03/23/17 05:00 RBC 3.09 M/mm3 (3.65-5.03) L 03/23/17 05:00 Hgb 8.5 gm/dl (10.1-14.3) L 03/23/17 05:00 Hct 27.0 % (30.3-42.9) L 03/23/17 05:00 MCV 87 fl (79-97) 03/23/17 05:00 MCH 28 pg (28-32) 03/23/17 05:00 MCHC 31 % (30-34) 03/23/17 05:00 RDW 17.8 % (13.2-15.2) H 03/23/17 05:00 Plt Count 209 K/mm3 (140-440) 03/23/17 05:00 Lymph % (Auto) Pinsetter Mechanic Helper 03/23/17 05:00 [place] % (Auto) Pinsetter Mechanic Helper 03/23/17 05:00 Eos % (Auto) Pinsetter Mechanic Helper 03/23/17 05:00 Baso % (Auto) Pinsetter Mechanic Helper 03/23/17 05:00 Lymph # Pinsetter Mechanic Helper 03/23/17 05:00 [place] # Pinsetter Mechanic Helper 03/23/17 05:00 Eos # Pinsetter Mechanic Helper 03/23/17 05:00 Baso # Pinsetter Mechanic Helper 03/23/17 05:00 Add Manual Diff Complete 03/23/17 05:00 Total Counted 100 03/23/17 05:00 Seg Neutrophils % Pinsetter Mechanic Helper 03/23/17 05:00 Seg Neuts % (Manual) 66.0 % (40.0-70.0) 03/23/17 05:00 Band Neutrophils % 7.0 % 03/23/17 05:00 Lymphocytes % (Manual) 11.0 % (13.4-35.0) L 03/23/17 05:00 Reactive Lymphs % (Man) 0 % 03/23/17 05:00 Monocytes % (Manual) 13.0 % (0.0-7.3) H 03/23/17 05:00 Eosinophils % (Manual) 3.0 % (0.0-4.3) 03/23/17 05:00 Basophils % (Manual) 0 % (0.0-1.8) 03/23/17 05:00 Metamyelocytes % 0 % 03/23/17 05:00 Myelocytes % 0 % 03/23/17 05:00 Promyelocytes % 0 % 03/23/17 05:00 Blast Cells % 0 % 03/23/17 05:00 Nucleated RBC % Not Reportable 03/23/17 05:00 Seg Neutrophils # Pinsetter Mechanic Helper 03/23/17 05:00 Seg Neutrophils # Man 9.2 K/mm3 (1.8-7.7) H 03/23/17 05:00 Band Neutrophils # 1.0 K/mm3 03/23/17 05:00 Lymphocytes # (Manual) 1.5 K/mm3 (1.2-5.4) 03/23/17 05:00 Abs React Lymphs (Man) 0.0 K/mm3 03/23/17 05:00 Monocytes # (Manual) 1.8 K/mm3 (0.0-0.8) H 03/23/17 05:00 Eosinophils # (Manual) 0.4 K/mm3 (0.0-0.4) 03/23/17 05:00 Basophils # (Manual) 0.0 K/mm3 (0.0-0.1) 03/23/17 05:00 Metamyelocytes # 0.0 K/mm3 03/23/17 05:00 Myelocytes # 0.0 K/mm3 03/23/17 05:00 Promyelocytes # 0.0 K/mm3 03/23/17 05:00 Blast Cells # 0.0 K/mm3 03/23/17 05:00 WBC Morphology Not Reportable 03/23/17 05:00 Hypersegmented Neuts Not Reportable 03/23/17 05:00 Hyposegmented Neuts Not Reportable 03/23/17 05:00 Hypogranular Neuts Not Reportable 03/23/17 05:00 Smudge Cells Not Reportable 03/23/17 05:00 Toxic Granulation Not Reportable 03/23/17 05:00 Toxic Vacuolation Not Reportable 03/23/17 05:00 Dohle Bodies Not Reportable 03/23/17 05:00 Pelger-Huet Anomaly Not Reportable 03/23/17 05:00 Tunde Rods Not Reportable 03/23/17 05:00 Platelet Estimate Appears normal 03/23/17 05:00 Clumped Platelets Not Reportable 03/23/17 05:00 Plt Clumps, EDTA Not Reportable 03/23/17 05:00 Large Platelets Not Reportable 03/23/17 05:00 Giant Platelets Not Reportable 03/23/17 05:00 Platelet Satelliting Not Reportable 03/23/17 05:00 Plt Morphology Comment Not Reportable 03/23/17 05:00 RBC Morphology Not Reportable 03/23/17 05:00 Dimorphic RBCs Not Reportable 03/23/17 05:00 Polychromasia Not Reportable 03/23/17 05:00 Hypochromasia Rare 03/23/17 05:00 Poikilocytosis Not Reportable 03/23/17 05:00 Anisocytosis 1+ 03/23/17 05:00 Microcytosis Not Reportable 03/23/17 05:00 Macrocytosis Not Reportable 03/23/17 05:00 Spherocytes Not Reportable 03/23/17 05:00 Pappenheimer Bodies Not Reportable 03/23/17 05:00 Sickle Cells Not Reportable 03/23/17 05:00 Target Cells Not Reportable 03/23/17 05:00 Tear Drop Cells Not Reportable 03/23/17 05:00 Ovalocytes Not Reportable 03/23/17 05:00 Helmet Cells Not Reportable 03/23/17 05:00 Shukla-Rison Bodies Not Reportable 03/23/17 05:00 [place] Rings Not Reportable 03/23/17 05:00 [place]ona Cells Not Reportable 03/23/17 05:00 Bite Cells Not Reportable 03/23/17 05:00 Crenated Cell Not Reportable 03/23/17 05:00 Elliptocytes Not Reportable 03/23/17 05:00 Acanthocytes (Spur) Not Reportable 03/23/17 05:00 Rouleaux Not Reportable 03/23/17 05:00 Hemoglobin C Crystals Not Reportable 03/23/17 05:00 Schistocytes Not Reportable 03/23/17 05:00 Malaria parasites Not Reportable 03/23/17 05:00 [place]lon Bodies Not Reportable 03/23/17 05:00 Hem Pathologist Commnt No 03/23/17 05:00 PT 13.4 Sec. (12.2-14.9) 03/16/17 11:07 INR 1.03 (0.87-1.13) 03/16/17 11:07 APTT 24.1 Sec. (24.2-36.6) L 03/16/17 11:07 Activated Clotting Time 125 (74-137) 03/17/17 08:23 Heparin Anti-Xa Level < 0.10 U.I./ml (0.3-0.7) L 03/17/17 21:12 POC ABG pH 7.388 (7.35-7.45) 03/23/17 12:18 POC ABG pCO2 44.0 (35-45) 03/23/17 12:18 POC ABG pO2 87 (80-105) 03/23/17 12:18 POC ABG HCO3 26.5 03/23/17 12:18 POC ABG Total CO2 28 03/23/17 12:18 POC ABG O2 Sat 96 03/23/17 12:18 POC ABG Base Excess 2 03/23/17 12:18 FiO2 30 % 03/23/17 12:18 Sodium 139 mmol/L (137-145) 03/23/17 05:00 Potassium 4.2 mmol/L (3.6-5.0) 03/23/17 05:00 Chloride 94.5 mmol/L (98-107) L 03/23/17 05:00 Carbon Dioxide 23 mmol/L (22-30) 03/23/17 05:00 Anion Gap 26 mmol/L 03/23/17 05:00 BUN 76 mg/dL (7-17) H 03/23/17 05:00 Creatinine 7.5 mg/dL (0.7-1.2) H 03/23/17 05:00 Estimated GFR 7 ml/min 03/23/17 05:00 BUN/Creatinine Ratio 10.13 % 03/23/17 05:00 Glucose 192 mg/dL (65-100) H 03/23/17 05:00 POC Glucose 195 (70-105) H 03/23/17 05:21 Lactic Acid 1.40 mmol/L (0.7-2.0) 03/17/17 19:50 Calcium 10.1 mg/dL (8.4-10.2) 03/23/17 05:00 Total Bilirubin 0.50 mg/dL (0.1-1.2) 03/21/17 07:45 AST 23 units/L (5-40) 03/21/17 07:45 ALT 40 units/L (7-56) 03/21/17 07:45 Alkaline Phosphatase 244 units/L (35-129) H 03/21/17 07:45 Ammonia 38.0 umol/L (25-60) 03/18/17 19:02 Total Creatine Kinase 282 units/L (30-135) H 03/16/17 16:36 CK-MB (CK-2) 24.2 ng/mL (0.0-4.0) H 03/16/17 16:36 CK-MB (CK-2) Rel Index 8.5 (0-4) H 03/16/17 16:36 Troponin T 0.656 ng/mL (0.00-0.029) H* D 03/16/17 16:36 C-Reactive Protein 33.90 mg/dL (0.00-1.30) H 03/17/17 17:15 Total Protein 7.3 g/dL (6.3-8.2) 03/21/17 07:45 Albumin 2.8 g/dL (3.9-5) L 03/21/17 07:45 Albumin/Globulin Ratio 0.6 % 03/21/17 07:45 Triglycerides 134 mg/dL (2-149) 03/16/17 11:07 Cholesterol 228 mg/dL (50-199) H 03/16/17 11:07 LDL Cholesterol Direct 165 mg/dL (50-130) H 03/16/17 11:07 HDL Cholesterol 37 mg/dL (40-59) L 03/16/17 11:07 Cholesterol/HDL Ratio 6.16 % 03/16/17 11:07 TSH 0.746 mlU/mL (0.270-4.200) 03/18/17 19:02 Random Vancomycin 20.9 ug/mL (0-40.0) 03/22/17 07:40 Hepatitis A IgM Ab Non-reactive (NonReactive) 03/19/17 04:31 Hep Bs Antigen Non-reactive (Negative) 03/19/17 04:31 Hep B Core IgM Ab Non-reactive (NonReactive) 03/19/17 04:31 Hepatitis C Antibody Non-reactive (NonReactive) 03/19/17 04:31 Blood Type A POSITIVE 03/16/17 16:36 Antibody Screen TNR 03/16/17 16:36 CLAIR Antibody Screen Negative 03/16/17 16:36
--- NOTE | 2017-03-23 16:28 | Progress Note ---
Assessment and Plan Assessment and plan: 66-year-old female presents to the emergency department complaining of chest pain after dialysis. While in triage, the patient went unresponsive, and without a pulse, No palpable pulses were identified. Patient was placed on a monitoring manager and ventricular fibrillation was noted. Patient was defibrillated a single time with 200 J. She received CPR protocol, was intubated and had ROSC, and she was then taken to the ICU. Postarrest ECG was consistent with anterior STEMI. Code STEMI was activated, she was taken to ship laborer and received angiogram ; stent x 2 in LAD noted to be patent, but had distal LAD spasm Cardiovascular cardiac arrest; Vfib, STEMI, ACS, Distal LAD spasm, cardiogenic shock Cardiology input appreciated, status post cath with patent stents she was rx with amio drip, received heparin ggt x 24 hours, received Dopamine drip for Cardiogenic shock and hypotension,now improved; currently on Lopressor for rate control and now hypertensive -Hypertension. continue antihypertensive medications -Hyperlipidemia- Continue statin therapy Pulmonary Acute hypoxic respiratory failure, mech vent >96 hours Continue ventilator will continue to attempt to wean daily, pulmonary input appreciated GI Nausea/Vomiting- Start on zofran, now resolved Toxic metabolic encephalopathy EEG was reviewed, seizure is unlikely. encephalopathy most likely due to acute illness, cardiac arrest and IV sedation now improved, Neurology input appreciated ID Sepsis syndrome; ID consult appreciated, Continue current empiric therapy. Follow clinically for localizing issues., fup cx of trachial aspirate WBC count is slowly downtrending. Continue Cefepime and Flagyl empirically. Will discontinue Vancomycin. RENAL/FEN End stage renal disease on hemodialysis. Nephrology following. Continue hemodialysis Hyperkalemia-corrected with dialysis Diabetes mellitus type 2. Accu-Cheks and sliding scale insulin. Morbid obesity- counselling once extubated. Anemia of CKD. Follow H&H. Transfuse as necessary. History of breast cancer. 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 The aggregate critical care time was [35] minutes. This time is in addition to time spent performing reported procedures but includes the following: [x] Data Review and interpretation [x] Patient assessment and monitoring of vital signs [x] Documentation [x] Medication orders and management . History Interval history: Patient is currently intubated, she obeys commands he nods her head today was a squeeze my hands. Hospitalist Physical - Physical exam Narrative exam: General: Patient appears well in no distress HEENT: MMM, EOMI cardiac: S1-S2 heard lungs: clear to auscultation, abdomen: soft, nontender, nondistended bowel sounds positive extremities: no edema clubbing or cyanosis Skin: no rash or lesion Neuro: Intubated, opens eyes of days, and shakes and nods heads. obeys commands - Constitutional Vitals: Temp Pulse Resp BP Pulse Ox 99.7 F H 72 19 143/55 98 03/23/17 12:00 03/23/17 16:22 03/23/17 16:22 03/23/17 16:22 03/23/17 16:22 General appearance: Present: no acute distress, obese Results - Labs CBC & Chem 7: 03/25/17 04:38 03/25/17 04:38 Labs: Laboratory Last Values WBC 14.0 K/mm3 (4.5-11.0) H 03/23/17 05:00 RBC 3.09 M/mm3 (3.65-5.03) L 03/23/17 05:00 Hgb 8.5 gm/dl (10.1-14.3) L 03/23/17 05:00 Hct 27.0 % (30.3-42.9) L 03/23/17 05:00 MCV 87 fl (79-97) 03/23/17 05:00 MCH 28 pg (28-32) 03/23/17 05:00 MCHC 31 % (30-34) 03/23/17 05:00 RDW 17.8 % (13.2-15.2) H 03/23/17 05:00 Plt Count 209 K/mm3 (140-440) 03/23/17 05:00 Lymph % (Auto) Level Glass Forming Machine Operator 03/23/17 05:00 Park % (Auto) Level Glass Forming Machine Operator 03/23/17 05:00 Eos % (Auto) Level Glass Forming Machine Operator 03/23/17 05:00 Baso % (Auto) Level Glass Forming Machine Operator 03/23/17 05:00 Lymph # Level Glass Forming Machine Operator 03/23/17 05:00 Park # Level Glass Forming Machine Operator 03/23/17 05:00 Eos # Level Glass Forming Machine Operator 03/23/17 05:00 Baso # Level Glass Forming Machine Operator 03/23/17 05:00 Add Manual Diff Complete 03/23/17 05:00 Total Counted 100 03/23/17 05:00 Seg Neutrophils % Level Glass Forming Machine Operator 03/23/17 05:00 Seg Neuts % (Manual) 66.0 % (40.0-70.0) 03/23/17 05:00 Band Neutrophils % 7.0 % 03/23/17 05:00 Lymphocytes % (Manual) 11.0 % (13.4-35.0) L 03/23/17 05:00 Reactive Lymphs % (Man) 0 % 03/23/17 05:00 Monocytes % (Manual) 13.0 % (0.0-7.3) H 03/23/17 05:00 Eosinophils % (Manual) 3.0 % (0.0-4.3) 03/23/17 05:00 Basophils % (Manual) 0 % (0.0-1.8) 03/23/17 05:00 Metamyelocytes % 0 % 03/23/17 05:00 Myelocytes % 0 % 03/23/17 05:00 Promyelocytes % 0 % 03/23/17 05:00 Blast Cells % 0 % 03/23/17 05:00 Nucleated RBC % Not Reportable 03/23/17 05:00 Seg Neutrophils # Level Glass Forming Machine Operator 03/23/17 05:00 Seg Neutrophils # Man 9.2 K/mm3 (1.8-7.7) H 03/23/17 05:00 Band Neutrophils # 1.0 K/mm3 03/23/17 05:00 Lymphocytes # (Manual) 1.5 K/mm3 (1.2-5.4) 03/23/17 05:00 Abs React Lymphs (Man) 0.0 K/mm3 03/23/17 05:00 Monocytes # (Manual) 1.8 K/mm3 (0.0-0.8) H 03/23/17 05:00 Eosinophils # (Manual) 0.4 K/mm3 (0.0-0.4) 03/23/17 05:00 Basophils # (Manual) 0.0 K/mm3 (0.0-0.1) 03/23/17 05:00 Metamyelocytes # 0.0 K/mm3 03/23/17 05:00 Myelocytes # 0.0 K/mm3 03/23/17 05:00 Promyelocytes # 0.0 K/mm3 03/23/17 05:00 Blast Cells # 0.0 K/mm3 03/23/17 05:00 WBC Morphology Not Reportable 03/23/17 05:00 Hypersegmented Neuts Not Reportable 03/23/17 05:00 Hyposegmented Neuts Not Reportable 03/23/17 05:00 Hypogranular Neuts Not Reportable 03/23/17 05:00 Smudge Cells Not Reportable 03/23/17 05:00 Toxic Granulation Not Reportable 03/23/17 05:00 Toxic Vacuolation Not Reportable 03/23/17 05:00 Dohle Bodies Not Reportable 03/23/17 05:00 Pelger-Huet Anomaly Not Reportable 03/23/17 05:00 Tunde Rods Not Reportable 03/23/17 05:00 Platelet Estimate Appears normal 03/23/17 05:00 Clumped Platelets Not Reportable 03/23/17 05:00 Plt Clumps, EDTA Not Reportable 03/23/17 05:00 Large Platelets Not Reportable 03/23/17 05:00 Giant Platelets Not Reportable 03/23/17 05:00 Platelet Satelliting Not Reportable 03/23/17 05:00 Plt Morphology Comment Not Reportable 03/23/17 05:00 RBC Morphology Not Reportable 03/23/17 05:00 Dimorphic RBCs Not Reportable 03/23/17 05:00 Polychromasia Not Reportable 03/23/17 05:00 Hypochromasia Rare 03/23/17 05:00 Poikilocytosis Not Reportable 03/23/17 05:00 Anisocytosis 1+ 03/23/17 05:00 Microcytosis Not Reportable 03/23/17 05:00 Macrocytosis Not Reportable 03/23/17 05:00 Spherocytes Not Reportable 03/23/17 05:00 Pappenheimer Bodies Not Reportable 03/23/17 05:00 Sickle Cells Not Reportable 03/23/17 05:00 Target Cells Not Reportable 03/23/17 05:00 Tear Drop Cells Not Reportable 03/23/17 05:00 Ovalocytes Not Reportable 03/23/17 05:00 Helmet Cells Not Reportable 03/23/17 05:00 [place] Bodies Not Reportable 03/23/17 05:00 [place] Rings Not Reportable 03/23/17 05:00 [place] Cells Not Reportable 03/23/17 05:00 Bite Cells Not Reportable 03/23/17 05:00 Crenated Cell Not Reportable 03/23/17 05:00 Elliptocytes Not Reportable 03/23/17 05:00 Acanthocytes (Spur) Not Reportable 03/23/17 05:00 Rouleaux Not Reportable 03/23/17 05:00 Hemoglobin C Crystals Not Reportable 03/23/17 05:00 Schistocytes Not Reportable 03/23/17 05:00 Malaria parasites Not Reportable 03/23/17 05:00 [place] Bodies Not Reportable 03/23/17 05:00 Hem Pathologist Commnt No 03/23/17 05:00 PT 13.4 Sec. (12.2-14.9) 03/16/17 11:07 INR 1.03 (0.87-1.13) 03/16/17 11:07 APTT 24.1 Sec. (24.2-36.6) L 03/16/17 11:07 Activated Clotting Time 125 (74-137) 03/17/17 08:23 Heparin Anti-Xa Level < 0.10 U.I./ml (0.3-0.7) L 03/17/17 21:12 POC ABG pH 7.388 (7.35-7.45) 03/23/17 12:18 POC ABG pCO2 44.0 (35-45) 03/23/17 12:18 POC ABG pO2 87 (80-105) 03/23/17 12:18 POC ABG HCO3 26.5 03/23/17 12:18 POC ABG Total CO2 28 03/23/17 12:18 POC ABG O2 Sat 96 03/23/17 12:18 POC ABG Base Excess 2 03/23/17 12:18 FiO2 30 % 03/23/17 12:18 Sodium 139 mmol/L (137-145) 03/23/17 05:00 Potassium 4.2 mmol/L (3.6-5.0) 03/23/17 05:00 Chloride 94.5 mmol/L (98-107) L 03/23/17 05:00 Carbon Dioxide 23 mmol/L (22-30) 03/23/17 05:00 Anion Gap 26 mmol/L 03/23/17 05:00 BUN 76 mg/dL (7-17) H 03/23/17 05:00 Creatinine 7.5 mg/dL (0.7-1.2) H 03/23/17 05:00 Estimated GFR 7 ml/min 03/23/17 05:00 BUN/Creatinine Ratio 10.13 % 03/23/17 05:00 Glucose 192 mg/dL (65-100) H 03/23/17 05:00 POC Glucose 195 (70-105) H 03/23/17 05:21 Lactic Acid 1.40 mmol/L (0.7-2.0) 03/17/17 19:50 Calcium 10.1 mg/dL (8.4-10.2) 03/23/17 05:00 Total Bilirubin 0.50 mg/dL (0.1-1.2) 03/21/17 07:45 AST 23 units/L (5-40) 03/21/17 07:45 ALT 40 units/L (7-56) 03/21/17 07:45 Alkaline Phosphatase 244 units/L (35-129) H 03/21/17 07:45 Ammonia 38.0 umol/L (25-60) 03/18/17 19:02 Total Creatine Kinase 282 units/L (30-135) H 03/16/17 16:36 CK-MB (CK-2) 24.2 ng/mL (0.0-4.0) H 03/16/17 16:36 CK-MB (CK-2) Rel Index 8.5 (0-4) H 03/16/17 16:36 Troponin T 0.656 ng/mL (0.00-0.029) H* D 03/16/17 16:36 C-Reactive Protein 33.90 mg/dL (0.00-1.30) H 03/17/17 17:15 Total Protein 7.3 g/dL (6.3-8.2) 03/21/17 07:45 Albumin 2.8 g/dL (3.9-5) L 03/21/17 07:45 Albumin/Globulin Ratio 0.6 % 03/21/17 07:45 Triglycerides 134 mg/dL (2-149) 03/16/17 11:07 Cholesterol 228 mg/dL (50-199) H 03/16/17 11:07 LDL Cholesterol Direct 165 mg/dL (50-130) H 03/16/17 11:07 HDL Cholesterol 37 mg/dL (40-59) L 03/16/17 11:07 Cholesterol/HDL Ratio 6.16 % 03/16/17 11:07 TSH 0.746 mlU/mL (0.270-4.200) 03/18/17 19:02 Random Vancomycin 20.9 ug/mL (0-40.0) 03/22/17 07:40 Hepatitis A IgM Ab Non-reactive (NonReactive) 03/19/17 04:31 Hep Bs Antigen Non-reactive (Negative) 03/19/17 04:31 Hep B Core IgM Ab Non-reactive (NonReactive) 03/19/17 04:31 Hepatitis C Antibody Non-reactive (NonReactive) 03/19/17 04:31 Blood Type A POSITIVE 03/16/17 16:36 Antibody Screen TNR 03/16/17 16:36 CLAIR Antibody Screen Negative 03/16/17 16:36
[2017-03-24] MEDS: DUONEB *Not for PRN Use IH SCH ×4 (01:48→20:41)
[2017-03-24] MEDS: SUBLIMAZE IV PRN ×2 (04:00→09:24)
[2017-03-24] MEDS: FLAGYL 500 MG/100 ML 500 MG/100 ML BAG IV SCH ×3 (04:15→21:25)
[2017-03-24] MEDS: LOPRESSOR PO SCH ×4 (04:16→21:40)
[2017-03-24] MEDS: HALDOL IV PRN ×3 (04:18→21:41)
[2017-03-24] MEDS: REGLAN IV SCH ×4 (06:18→23:34)
[2017-03-24 09:01] LABS: Hematocrit 25.9 % (30.3-42.9); Hemoglobin 8.5 gm/dl (10.1-14.3); Mean Corpuscular HGB Conc 33 % (30-34); Mean Corpuscular Hemoglobin 28 pg (28-32); Mean Corpuscular Volume 87 fl (79-97); Platelet Count 222 K/mm3 (140-440); Red Blood Count 2.99 M/mm3 (3.65-5.03); Red Cell Distribution Width 18.1 % (13.2-15.2); White Blood Count 10.2 K/mm3 (4.5-11.0)
[2017-03-24 09:15] LABS: BUN/Creatinine Ratio 11.48; Calcium 9.5 mg/dL (8.4-10.2); Chloride 95.4 mmol/L (98-107); Potassium 4.6 mmol/L (3.6-5.0)
[2017-03-24] MEDS: HEPARIN SUB-Q SCH (09:23)
[2017-03-24] MEDS: MAXIPIME 0.5 GM in NACL 0.9% 100 ML IV SCH (09:23)
[2017-03-24] MEDS: PEPCID IV SCH ×2 (09:24→21:40)
[2017-03-24] MEDS: PLAVIX PO SCH (09:25)
--- NOTE | 2017-03-24 10:57 | Progress Note ---
Assessment and Plan Impression * End-stage renal disease on maintenance hemodialysis * Status post V. fib cardiac arrest * Hypertension * s/p PCI * Diabetes * History of breast cancer * Anemia secondary to ESRD * Hyperlipidemia Recommendations * dialysis qMWF and prn * low k bath with hd * uf as tolerated * AV fistula is still functional. Has a good bruit and thrill * azotemia noted, increase dialysis time * No IV BP or venipuncture access arm * Adjust diet and meds for ESRD state * Her outpatient days are Tuesdays and Saturdays Subjective Date of service: 03/24/17 Principal diagnosis: Acute Hypoxemic Resp Failure; STEMI Interval history: resting in bed, events noted Objective - Exam Narrative Exam: General appearance: well-developed, well-nourished, appears stated age, intubated EENT: PERRL, mucous membranes moist Neck: no JVD, no thyromegaly, no carotid bruit, supple Respiratory: Present: Clear to Ascultation Cardiology: regular, normal heart rate Gastrointestinal: normal, normoactive bowel sounds Integumentary: no rash, other (AV fistula in her left upper arm. Good bruit and thrill) - Vital Signs Vital signs: Vital Signs - 12hr 03/23/17 03/23/17 03/23/17 23:00 23:55 23:57 Temperature 99.5 F Pulse Rate 79 67 Pulse Rate [ Anterior Bilateral Throughout] Respiratory 18 Rate Respiratory Rate [Anterior Bilateral Throughout] Respiratory Rate [Right Head] Blood Pressure 131/65 131/65 O2 Sat by Pulse 98 98 Oximetry 03/24/17 03/24/17 03/24/17 00:00 01:00 01:49 Temperature Pulse Rate 64 69 Pulse Rate [ 68 Anterior Bilateral Throughout] Respiratory 15 21 Rate Respiratory 19 Rate [Anterior Bilateral Throughout] Respiratory Rate [Right Head] Blood Pressure 137/51 144/57 O2 Sat by Pulse 96 96 Oximetry 03/24/17 03/24/17 03/24/17 02:00 02:05 03:00 Temperature Pulse Rate 63 75 Pulse Rate [ 70 Anterior Bilateral Throughout] Respiratory 16 22 Rate Respiratory 19 Rate [Anterior Bilateral Throughout] Respiratory Rate [Right Head] Blood Pressure 132/45 129/51 O2 Sat by Pulse 97 99 Oximetry 03/24/17 03/24/17 03/24/17 04:00 04:16 04:30 Temperature 98.6 F Pulse Rate 72 70 Pulse Rate [ Anterior Bilateral Throughout] Respiratory 20 18 Rate Respiratory Rate [Anterior Bilateral Throughout] Respiratory 28 H Rate [Right Head] Blood Pressure 149/62 149/62 O2 Sat by Pulse 95 Oximetry 03/24/17 03/24/17 03/24/17 05:00 05:21 06:00 Temperature Pulse Rate 66 66 67 Pulse Rate [ Anterior Bilateral Throughout] Respiratory 15 17 Rate Respiratory Rate [Anterior Bilateral Throughout] Respiratory Rate [Right Head] Blood Pressure 144/53 144/53 144/55 O2 Sat by Pulse 96 98 97 Oximetry 03/24/17 03/24/17 03/24/17 07:00 08:47 09:00 Temperature Pulse Rate 66 64 64 Pulse Rate [ 67 Anterior Bilateral Throughout] Respiratory 22 Rate Respiratory 20 Rate [Anterior Bilateral Throughout] Respiratory Rate [Right Head] Blood Pressure 138/60 141/59 132/41 O2 Sat by Pulse 99 99 97 Oximetry 03/24/17 09:25 Temperature Pulse Rate 66 Pulse Rate [ Anterior Bilateral Throughout] Respiratory Rate Respiratory Rate [Anterior Bilateral Throughout] Respiratory Rate [Right Head] Blood Pressure 132/41 O2 Sat by Pulse Oximetry - Lab 03/24/17 08:49 03/24/17 08:49 Most recent lab results Calcium 9.5 mg/dL (8.4-10.2) 03/24/17 08:49
--- NOTE | 2017-03-24 12:04 | Progress Note ---
Assessment and Plan Clinically improved. Will be extubated today. Discussed with the patient's son at bedside. - Patient Problems (1) Acute hypoxemic respiratory failure Current Visit: Yes Status: Resolved (2) Cardiac arrest Current Visit: Yes Status: Acute (3) Cardiac arrest due to underlying cardiac condition Current Visit: Yes Status: Acute (4) ESRD on dialysis Current Visit: Yes Status: Acute (5) Obesity (BMI 30-39.9) Current Visit: Yes Status: Chronic (6) STEMI (ST elevation myocardial infarction) Current Visit: Yes Status: Acute Qualifiers: Involved coronary artery: unspecified coronary artery Qualified Code(s): I21.3 - ST elevation (STEMI) myocardial infarction of unspecified site (7) Seizure Current Visit: Yes Status: Acute (8) Sepsis syndrome Current Visit: Yes Status: Acute (9) Aortic stenosis Current Visit: Yes Status: Chronic Qualifiers: Cardiac valve disease etiology: C (10) Pulmonary HTN Current Visit: Yes Status: Chronic (11) CVA (cerebral vascular accident) Current Visit: No Status: Acute Qualifiers: CVA mechanism: C Precerebral and cerebral artery: P Laterality of affected vessel: L (12) Kidney stone Current Visit: No Status: Chronic (13) Rectal bleed Current Visit: No Status: Acute (14) UTI (urinary tract infection) Current Visit: No Status: Acute Qualifiers: Urinary tract infection type: U Hematuria presence: H Indwelling urinary catheter type: I Encounter type: E (15) Hypertension Current Visit: No Status: Chronic Qualifiers: Hypertension type: H (16) Type 2 diabetes mellitus Current Visit: No Status: Chronic Qualifiers: Diabetes mellitus complication status: D Diabetes mellitus complication detail: D Diabetic retinopathy severity: D Proliferative retinopathy type: P Diabetes mellitus macular edema: D Diabetes mellitus [facility] insulin use : D Laterality: L Chronic kidney disease stage: C Subjective Date of service: 03/24/17 Principal diagnosis: Acute Hypoxemic Resp Failure; STEMI Interval history: Awake,alert. Responds to commands. Patient is intubated and is on CPAP Tube feedings are on hold for possible extubation today.Her rhythm is normal sinus. Blood pressure 152/69 mmHg. Her hemoglobin is 8.5 with a normal platelet count. Objective Vital Signs Temp Pulse Pulse Pulse Pulse Pulse Resp 03/24/17 11:00 68 26 H 03/24/17 10:00 71 16 03/24/17 09:25 66 03/24/17 09:00 65 24 03/24/17 08:57 63 03/24/17 08:47 64 67 03/24/17 08:00 98.0 F 63 20 03/24/17 07:00 66 22 03/24/17 06:00 67 17 03/24/17 05:21 66 03/24/17 05:00 66 15 03/24/17 04:30 18 03/24/17 04:16 70 03/24/17 04:00 98.6 F 72 20 03/24/17 03:00 75 22 03/24/17 02:05 70 03/24/17 02:00 63 16 03/24/17 01:49 68 03/24/17 01:00 69 21 03/24/17 00:00 64 15 03/23/17 23:57 67 03/23/17 23:55 99.5 F 03/23/17 23:00 79 18 03/23/17 22:30 43 H 03/23/17 22:07 79 03/23/17 22:00 80 17 03/23/17 21:00 74 21 03/23/17 20:46 72 03/23/17 20:31 70 03/23/17 20:26 78 03/23/17 20:00 99.3 F 74 71 73 63 20 03/23/17 19:30 71 17 03/23/17 19:00 76 26 H 03/23/17 18:00 64 14 03/23/17 17:00 67 17 03/23/17 16:43 73 03/23/17 16:22 72 19 03/23/17 16:00 99.5 F 71 17 03/23/17 15:00 73 18 03/23/17 14:05 75 03/23/17 14:00 76 24 03/23/17 13:56 74 03/23/17 13:01 70 19 03/23/17 12:18 72 20 Resp Resp BP Pulse Ox 03/24/17 11:00 152/69 97 03/24/17 10:00 151/73 97 03/24/17 09:25 132/41 03/24/17 09:00 141/59 97 03/24/17 08:57 20 03/24/17 08:47 20 141/59 99 03/24/17 08:00 141/59 96 03/24/17 07:00 138/60 99 03/24/17 06:00 144/55 97 03/24/17 05:21 144/53 98 03/24/17 05:00 144/53 96 03/24/17 04:30 03/24/17 04:16 149/62 03/24/17 04:00 28 H 149/62 95 03/24/17 03:00 129/51 99 03/24/17 02:05 19 03/24/17 02:00 132/45 97 03/24/17 01:49 19 03/24/17 01:00 144/57 96 03/24/17 00:00 137/51 96 03/23/17 23:57 131/65 98 03/23/17 23:55 03/23/17 23:00 131/65 98 03/23/17 22:30 03/23/17 22:07 162/61 03/23/17 22:00 156/64 97 03/23/17 21:00 162/61 96 03/23/17 20:46 21 03/23/17 20:31 19 03/23/17 20:26 152/56 100 03/23/17 20:00 42 H 152/56 96 03/23/17 19:30 105/43 99 03/23/17 19:00 97/52 98 03/23/17 18:00 105/43 99 03/23/17 17:00 123/49 96 03/23/17 16:43 143/55 03/23/17 16:22 143/55 98 03/23/17 16:00 143/55 96 03/23/17 15:00 119/56 97 03/23/17 14:05 20 03/23/17 14:00 127/55 97 03/23/17 13:56 20 03/23/17 13:01 123/47 98 03/23/17 12:18 164/53 97 - Physical Examination General: No Apparent Distress, Other (Intubated,On CPAP.) HEENT: Positive: Normocephaly, Mucus Membranes Moist Neck: Positive: neck supple, trachea midline Cardiac: Positive: Reg Rate and Rhythm Lungs: Positive: clear to auscultation, Normal Breath Sounds, No Wheeze, Rales, Rhonchi Neuro: Positive: Grossly Intact Abdomen: Positive: Soft, Active Bowel Sounds Skin: Negative: Clear, Rash Musculoskeletal: No Fluid Collection, No Pain, Normal Range of Motion Extremities: Present: upper extr. pulses, lower extr. pulses. Absent: edema - Labs and Meds CBC 03/24/17 Range/Units 08:49 WBC 10.2 (4.5-11.0) K/mm3 RBC 2.99 L (3.65-5.03) M/mm3 Hgb 8.5 L (10.1-14.3) gm/dl Hct 25.9 L (30.3-42.9) % Plt Count 222 (140-440) K/mm3 Comprehensive Metabolic Panel 03/24/17 Range/Units 08:49 Sodium 141 (137-145) mmol/L Potassium 4.6 (3.6-5.0) mmol/L Chloride 95.4 L (98-107) mmol/L Carbon Dioxide 23 (22-30) mmol/L BUN 108 H (7-17) mg/dL Creatinine 9.4 H (0.7-1.2) mg/dL Glucose 203 H (65-100) mg/dL Calcium 9.5 (8.4-10.2) mg/dL - Imaging and Cardiology EKG: report reviewed, image reviewed - Telemetry EKG Rhythm: Sinus Rhythm - EKG Sinus rhythms and dysrhythmias: sinus rhythm Myocardial infarction: inferior [place] (acute or rec, anterior [place] (acute or rec - Allied health notes Allied health notes reviewed: RT
[2017-03-24 13:09] LABS: Blastocytes % (Manual) 0 %
--- NOTE | 2017-03-24 13:09 | Progress Note ---
Assessment and Plan - Patient Problems (1) Acute hypoxemic respiratory failure Current Visit: Yes Status: Resolved Plan to address problem: Aspiration precautions, HOB> 40 - VAP bundle addressed Lung protective strategies Analgesia and agitation/anxiety management VTE prophylaxis-on heparin infusion(anticoagulated) Stress ulcer prophylaxis Enteric feeding, accuchecks with glycemic control- currently on hold secondary for SBT and liberation from the ventilator Bronchodilators SBT tolerated plan is to extubate today (2) Cardiac arrest due to underlying cardiac condition Current Visit: Yes Status: Acute Plan to address problem: Continue cardioprotective measures s/p 2 stents to LAD (3) Seizure Current Visit: Yes Status: Acute Plan to address problem: Neurology following. Follow up MRI (4) ESRD on dialysis Current Visit: Yes Status: Acute Plan to address problem: HD per renal service (5) Acute respiratory acidosis Current Visit: Yes Status: Acute Plan to address problem: Much improved Bronchodilators (6) Obesity (BMI 30-39.9) Current Visit: Yes Status: Chronic Plan to address problem: Lifestyle modification after discharge Subjective Date of service: 03/24/17 Principal diagnosis: Acute Hypoxemic Resp Failure; STEMI Interval history: Seen and examined. Vitals ,labs, medications, chart reviewed. No acute overnight events noted. Tolerating tube feeding Awake and alert, obeying simple commands SBT with plan to liberate if she meets criteria- discussed with RT at the bedside Currently on amiodarone and fentanyl infusion On mechanical ventilatory support-ETT, no patient ventilator dys-synchrony noted PS 10/5 Obeying commands- NIF -24, RSBI 45, TV- 450 Plan to extubate Objective Vital Signs - 12hr 03/24/17 03/24/17 03/24/17 01:49 02:00 02:05 Temperature Pulse Rate 63 Pulse Rate [ 68 70 Anterior Bilateral Throughout] Respiratory 16 Rate Respiratory 19 19 Rate [Anterior Bilateral Throughout] Respiratory Rate [Right Head] Blood Pressure 132/45 O2 Sat by Pulse 97 Oximetry 03/24/17 03/24/17 03/24/17 03:00 04:00 04:16 Temperature 98.6 F Pulse Rate 75 72 70 Pulse Rate [ Anterior Bilateral Throughout] Respiratory 22 20 Rate Respiratory Rate [Anterior Bilateral Throughout] Respiratory 28 H Rate [Right Head] Blood Pressure 129/51 149/62 149/62 O2 Sat by Pulse 99 95 Oximetry 03/24/17 03/24/17 03/24/17 04:30 05:00 05:21 Temperature Pulse Rate 66 66 Pulse Rate [ Anterior Bilateral Throughout] Respiratory 18 15 Rate Respiratory Rate [Anterior Bilateral Throughout] Respiratory Rate [Right Head] Blood Pressure 144/53 144/53 O2 Sat by Pulse 96 98 Oximetry 03/24/17 03/24/17 03/24/17 06:00 07:00 08:00 Temperature 98.0 F Pulse Rate 67 66 63 Pulse Rate [ Anterior Bilateral Throughout] Respiratory 17 22 20 Rate Respiratory Rate [Anterior Bilateral Throughout] Respiratory Rate [Right Head] Blood Pressure 144/55 138/60 141/59 O2 Sat by Pulse 97 99 96 Oximetry 03/24/17 03/24/17 03/24/17 08:47 08:57 09:00 Temperature Pulse Rate 64 65 Pulse Rate [ 67 63 Anterior Bilateral Throughout] Respiratory 24 Rate Respiratory 20 20 Rate [Anterior Bilateral Throughout] Respiratory Rate [Right Head] Blood Pressure 141/59 141/59 O2 Sat by Pulse 99 97 Oximetry 03/24/17 03/24/17 03/24/17 09:25 10:00 11:00 Temperature Pulse Rate 66 71 68 Pulse Rate [ Anterior Bilateral Throughout] Respiratory 16 26 H Rate Respiratory Rate [Anterior Bilateral Throughout] Respiratory Rate [Right Head] Blood Pressure 132/41 151/73 152/69 O2 Sat by Pulse 97 97 Oximetry 03/24/17 12:00 Temperature Pulse Rate 66 Pulse Rate [ Anterior Bilateral Throughout] Respiratory Rate Respiratory Rate [Anterior Bilateral Throughout] Respiratory Rate [Right Head] Blood Pressure 159/71 O2 Sat by Pulse 99 Oximetry Constitutional: no acute distress, other (intubated orally, ETT to vent- awake alert, able to lift her head unsupported, tolerating PSV) Eyes: non-icteric ENT: oropharynx moist Neck: supple, no lymphadenopathy, no JVD Effort: normal, mildly labored Ascultation: Bilateral: diminished breath sounds, rales (scant in bases) Cardiovascular: regular rate and rhythm Gastrointestinal: normoactive bowel sounds, soft, non-tender, non-distended Integumentary: normal, other (Femoral CVC) Extremities: no cyanosis, no edema, pulses normal, no ischemia or petechiae Neurologic: normal mental status, non-focal exam (Moves all extremities, tracks my voice, attempts to vocalize in response to questions), unable to assess Psychiatric: other (unable to assess) CBC and BMP: 03/24/17 08:49 03/24/17 08:49 ABG, PT/INR, D-dimer: ABG POC ABG pH 7.388 (7.35-7.45) 03/23/17 12:18 POC ABG pCO2 44.0 (35-45) 03/23/17 12:18 POC ABG pO2 87 (80-105) 03/23/17 12:18 POC ABG HCO3 26.5 03/23/17 12:18 POC ABG Total CO2 28 03/23/17 12:18 POC ABG O2 Sat 96 03/23/17 12:18 PT/INR, D-dimer PT 13.4 Sec. (12.2-14.9) 03/16/17 11:07 INR 1.03 (0.87-1.13) 03/16/17 11:07 Abnormal lab findings: Abnormal Labs 03/16/17 03/16/17 03/17/17 16:36 18:00 03:42 WBC 20.6 H RBC Hgb Hct RDW 17.3 H Lymph % (Auto) [place] % (Auto) Lymph # [place] # Seg Neutrophils % Seg Neuts % (Manual) 84.0 H Lymphocytes % (Manual) 3.0 L Monocytes % (Manual) 11.0 H Seg Neutrophils # Seg Neutrophils # Man 17.3 H Lymphocytes # (Manual) 0.6 L Monocytes # (Manual) 2.3 H Heparin Anti-Xa Level POC ABG pH 7.336 L POC ABG pCO2 47.9 H POC ABG pO2 189 H Sodium Potassium Chloride Carbon Dioxide BUN Creatinine Glucose POC Glucose ALT Alkaline Phosphatase Total Creatine Kinase 282 H CK-MB (CK-2) 24.2 H CK-MB (CK-2) Rel Index 8.5 H Troponin T 0.656 H* D C-Reactive Protein Albumin 03/17/17 03/17/17 03/17/17 03:42 04:21 17:15 WBC RBC Hgb Hct RDW Lymph % (Auto) [place] % (Auto) Lymph # [place] # Seg Neutrophils % Seg Neuts % (Manual) Lymphocytes % (Manual) Monocytes % (Manual) Seg Neutrophils # Seg Neutrophils # Man Lymphocytes # (Manual) Monocytes # (Manual) Heparin Anti-Xa Level 0.10 L POC ABG pH POC ABG pCO2 POC ABG pO2 Sodium 131 L Potassium 5.3 H D Chloride 89.5 L Carbon Dioxide 21 L BUN 39 H Creatinine 7.0 H Glucose 151 H POC Glucose ALT Alkaline Phosphatase Total Creatine Kinase CK-MB (CK-2) CK-MB (CK-2) Rel Index Troponin T C-Reactive Protein 33.90 H Albumin 03/17/17 03/18/17 03/18/17 21:12 03:33 03:33 WBC 17.6 H RBC 3.59 L Hgb Hct RDW 16.9 H Lymph % (Auto) 4.2 L [place] % (Auto) 11.8 H Lymph # 0.7 L [place] # 2.1 H Seg Neutrophils % 83.3 H Seg Neuts % (Manual) Lymphocytes % (Manual) Monocytes % (Manual) Seg Neutrophils # 14.7 H Seg Neutrophils # Man Lymphocytes # (Manual) Monocytes # (Manual) Heparin Anti-Xa Level < 0.10 L POC ABG pH POC ABG pCO2 POC ABG pO2 Sodium 127 L Potassium 6.1 H* Chloride 87.2 L Carbon Dioxide BUN 55 H Creatinine 8.7 H Glucose 140 H POC Glucose ALT Alkaline Phosphatase Total Creatine Kinase CK-MB (CK-2) CK-MB (CK-2) Rel Index Troponin T C-Reactive Protein Albumin 03/18/17 03/18/17 03/19/17 04:34 22:15 00:04 WBC RBC Hgb Hct RDW Lymph % (Auto) [place] % (Auto) Lymph # [place] # Seg Neutrophils % Seg Neuts % (Manual) Lymphocytes % (Manual) Monocytes % (Manual) Seg Neutrophils # Seg Neutrophils # Man Lymphocytes # (Manual) Monocytes # (Manual) Heparin Anti-Xa Level POC ABG pH 7.289 L POC ABG pCO2 48.7 H POC ABG pO2 Sodium Potassium 5.6 H Chloride Carbon Dioxide BUN Creatinine Glucose POC Glucose 108 H ALT Alkaline Phosphatase Total Creatine Kinase CK-MB (CK-2) CK-MB (CK-2) Rel Index Troponin T C-Reactive Protein Albumin 03/19/17 03/19/17 03/19/17 05:22 08:00 08:00 WBC 16.3 H RBC 3.15 L Hgb 8.8 L Hct 27.3 L RDW 17.4 H Lymph % (Auto) 3.4 L [place] % (Auto) 10.1 H Lymph # 0.5 L [place] # 1.7 H Seg Neutrophils % 85.4 H Seg Neuts % (Manual) Lymphocytes % (Manual) Monocytes % (Manual) Seg Neutrophils # 13.9 H Seg Neutrophils # Man Lymphocytes # (Manual) Monocytes # (Manual) Heparin Anti-Xa Level POC ABG pH POC ABG pCO2 POC ABG pO2 Sodium 131 L Potassium Chloride 89.3 L Carbon Dioxide BUN 56 H Creatinine 7.8 H Glucose 122 H POC Glucose 146 H ALT 59 H Alkaline Phosphatase 208 H Total Creatine Kinase CK-MB (CK-2) CK-MB (CK-2) Rel Index Troponin T C-Reactive Protein Albumin 2.6 L 03/19/17 03/19/17 03/19/17 08:06 11:50 17:36 WBC RBC Hgb Hct RDW Lymph % (Auto) [place] % (Auto) Lymph # [place] # Seg Neutrophils % Seg Neuts % (Manual) Lymphocytes % (Manual) Monocytes % (Manual) Seg Neutrophils # Seg Neutrophils # Man Lymphocytes # (Manual) Monocytes # (Manual) Heparin Anti-Xa Level POC ABG pH 7.338 L POC ABG pCO2 49.2 H POC ABG pO2 110 H Sodium Potassium Chloride Carbon Dioxide BUN Creatinine Glucose POC Glucose 172 H 152 H ALT Alkaline Phosphatase Total Creatine Kinase CK-MB (CK-2) CK-MB (CK-2) Rel Index Troponin T C-Reactive Protein Albumin 03/20/17 03/20/17 03/20/17 00:14 04:15 05:06 WBC RBC Hgb Hct RDW Lymph % (Auto) [place] % (Auto) Lymph # [place] # Seg Neutrophils % Seg Neuts % (Manual) Lymphocytes % (Manual) Monocytes % (Manual) Seg Neutrophils # Seg Neutrophils # Man Lymphocytes # (Manual) Monocytes # (Manual) Heparin Anti-Xa Level POC ABG pH 7.288 L POC ABG pCO2 51.4 H POC ABG pO2 Sodium Potassium Chloride Carbon Dioxide BUN Creatinine Glucose POC Glucose 132 H 166 H ALT Alkaline Phosphatase Total Creatine Kinase CK-MB (CK-2) CK-MB (CK-2) Rel Index Troponin T C-Reactive Protein Albumin 03/20/17 03/20/17 03/20/17 12:07 15:45 17:41 WBC RBC Hgb Hct RDW Lymph % (Auto) [place] % (Auto) Lymph # [place] # Seg Neutrophils % Seg Neuts % (Manual) Lymphocytes % (Manual) Monocytes % (Manual) Seg Neutrophils # Seg Neutrophils # Man Lymphocytes # (Manual) Monocytes # (Manual) Heparin Anti-Xa Level POC ABG pH POC ABG pCO2 POC ABG pO2 Sodium Potassium Chloride Carbon Dioxide BUN Creatinine Glucose POC Glucose 193 H 172 H 156 H ALT Alkaline Phosphatase Total Creatine Kinase CK-MB (CK-2) CK-MB (CK-2) Rel Index Troponin T C-Reactive Protein Albumin 03/20/17 03/21/17 03/21/17 23:13 04:42 05:41 WBC RBC Hgb Hct RDW Lymph % (Auto) [place] % (Auto) Lymph # [place] # Seg Neutrophils % Seg Neuts % (Manual) Lymphocytes % (Manual) Monocytes % (Manual) Seg Neutrophils # Seg Neutrophils # Man Lymphocytes # (Manual) Monocytes # (Manual) Heparin Anti-Xa Level POC ABG pH 7.321 L POC ABG pCO2 56.8 H POC ABG pO2 73 L Sodium Potassium Chloride Carbon Dioxide BUN Creatinine Glucose POC Glucose 141 H 159 H ALT Alkaline Phosphatase Total Creatine Kinase CK-MB (CK-2) CK-MB (CK-2) Rel Index Troponin T C-Reactive Protein Albumin 03/21/17 03/21/17 03/21/17 07:45 07:45 12:16 WBC 15.1 H RBC 3.32 L Hgb 9.2 L Hct 28.9 L RDW 17.4 H Lymph % (Auto) 4.7 L [place] % (Auto) 16.0 H Lymph # 0.7 L [place] # 2.4 H Seg Neutrophils % 78.6 H Seg Neuts % (Manual) Lymphocytes % (Manual) Monocytes % (Manual) Seg Neutrophils # 11.8 H Seg Neutrophils # Man Lymphocytes # (Manual) Monocytes # (Manual) Heparin Anti-Xa Level POC ABG pH POC ABG pCO2 POC ABG pO2 Sodium Potassium Chloride 95.4 L Carbon Dioxide BUN 55 H Creatinine 6.9 H Glucose 188 H POC Glucose 226 H ALT Alkaline Phosphatase 244 H Total Creatine Kinase CK-MB (CK-2) CK-MB (CK-2) Rel Index Troponin T C-Reactive Protein Albumin 2.8 L 03/21/17 03/21/17 03/22/17 17:17 23:28 04:49 WBC RBC Hgb Hct RDW Lymph % (Auto) [place] % (Auto) Lymph # [place] # Seg Neutrophils % Seg Neuts % (Manual) Lymphocytes % (Manual) Monocytes % (Manual) Seg Neutrophils # Seg Neutrophils # Man Lymphocytes # (Manual) Monocytes # (Manual) Heparin Anti-Xa Level POC ABG pH 7.323 L POC ABG pCO2 49.5 H POC ABG pO2 77 L Sodium Potassium Chloride Carbon Dioxide BUN Creatinine Glucose POC Glucose 192 H 199 H ALT Alkaline Phosphatase Total Creatine Kinase CK-MB (CK-2) CK-MB (CK-2) Rel Index Troponin T C-Reactive Protein Albumin 03/22/17 03/22/17 03/22/17 06:13 07:40 07:40 WBC 16.4 H RBC 3.29 L Hgb 9.1 L Hct 28.4 L RDW 17.3 H Lymph % (Auto) [place] % (Auto) Lymph # [place] # Seg Neutrophils % Seg Neuts % (Manual) 73.0 H Lymphocytes % (Manual) 8.0 L Monocytes % (Manual) 14.0 H Seg Neutrophils # Seg Neutrophils # Man 12.0 H Lymphocytes # (Manual) Monocytes # (Manual) 2.3 H Heparin Anti-Xa Level POC ABG pH POC ABG pCO2 POC ABG pO2 Sodium Potassium Chloride 94.8 L Carbon Dioxide 21 L BUN 84 H Creatinine 9.4 H Glucose 188 H POC Glucose 190 H ALT Alkaline Phosphatase Total Creatine Kinase CK-MB (CK-2) CK-MB (CK-2) Rel Index Troponin T C-Reactive Protein Albumin 03/22/17 03/22/17 03/22/17 11:43 17:38 23:56 WBC RBC Hgb Hct RDW Lymph % (Auto) [place] % (Auto) Lymph # [place] # Seg Neutrophils % Seg Neuts % (Manual) Lymphocytes % (Manual) Monocytes % (Manual) Seg Neutrophils # Seg Neutrophils # Man Lymphocytes # (Manual) Monocytes # (Manual) Heparin Anti-Xa Level POC ABG pH POC ABG pCO2 POC ABG pO2 Sodium Potassium Chloride Carbon Dioxide BUN Creatinine Glucose POC Glucose 149 H 168 H 229 H ALT Alkaline Phosphatase Total Creatine Kinase CK-MB (CK-2) CK-MB (CK-2) Rel Index Troponin T C-Reactive Protein Albumin 03/23/17 03/23/17 03/23/17 05:00 05:00 05:21 WBC 14.0 H RBC 3.09 L Hgb 8.5 L Hct 27.0 L RDW 17.8 H Lymph % (Auto) [place] % (Auto) Lymph # [place] # Seg Neutrophils % Seg Neuts % (Manual) Lymphocytes % (Manual) 11.0 L Monocytes % (Manual) 13.0 H Seg Neutrophils # Seg Neutrophils # Man 9.2 H Lymphocytes # (Manual) Monocytes # (Manual) 1.8 H Heparin Anti-Xa Level POC ABG pH POC ABG pCO2 POC ABG pO2 Sodium Potassium Chloride 94.5 L Carbon Dioxide BUN 76 H Creatinine 7.5 H Glucose 192 H POC Glucose 195 H ALT Alkaline Phosphatase Total Creatine Kinase CK-MB (CK-2) CK-MB (CK-2) Rel Index Troponin T C-Reactive Protein Albumin 03/23/17 03/23/17 03/23/17 12:15 17:47 23:27 WBC RBC Hgb Hct RDW Lymph % (Auto) [place] % (Auto) Lymph # [place] # Seg Neutrophils % Seg Neuts % (Manual) Lymphocytes % (Manual) Monocytes % (Manual) Seg Neutrophils # Seg Neutrophils # Man Lymphocytes # (Manual) Monocytes # (Manual) Heparin Anti-Xa Level POC ABG pH POC ABG pCO2 POC ABG pO2 Sodium Potassium Chloride Carbon Dioxide BUN Creatinine Glucose POC Glucose 162 H 137 H 221 H ALT Alkaline Phosphatase Total Creatine Kinase CK-MB (CK-2) CK-MB (CK-2) Rel Index Troponin T C-Reactive Protein Albumin 03/24/17 03/24/17 03/24/17 05:42 08:49 08:49 WBC RBC 2.99 L Hgb 8.5 L Hct 25.9 L RDW 18.1 H Lymph % (Auto) [place] % (Auto) Lymph # [place] # Seg Neutrophils % Seg Neuts % (Manual) Lymphocytes % (Manual) Monocytes % (Manual) Seg Neutrophils # Seg Neutrophils # Man Lymphocytes # (Manual) Monocytes # (Manual) Heparin Anti-Xa Level POC ABG pH POC ABG pCO2 POC ABG pO2 Sodium Potassium Chloride 95.4 L Carbon Dioxide BUN 108 H Creatinine 9.4 H Glucose 203 H POC Glucose 216 H ALT Alkaline Phosphatase Total Creatine Kinase CK-MB (CK-2) CK-MB (CK-2) Rel Index Troponin T C-Reactive Protein Albumin 03/24/17 11:21 WBC RBC Hgb Hct RDW Lymph % (Auto) [place] % (Auto) Lymph # [place] # Seg Neutrophils % Seg Neuts % (Manual) Lymphocytes % (Manual) Monocytes % (Manual) Seg Neutrophils # Seg Neutrophils # Man Lymphocytes # (Manual) Monocytes # (Manual) Heparin Anti-Xa Level POC ABG pH POC ABG pCO2 POC ABG pO2 Sodium Potassium Chloride Carbon Dioxide BUN Creatinine Glucose POC Glucose 185 H ALT Alkaline Phosphatase Total Creatine Kinase CK-MB (CK-2) CK-MB (CK-2) Rel Index Troponin T C-Reactive Protein Albumin Allied health notes reviewed: RT
[2017-03-24 13:10] LABS: Anisocytosis 1+; Diff Status Complete; Large Platelets Rare; Platelet Estimate Cons
--- NOTE | 2017-03-24 18:52 | Progress Note ---
Assessment and Plan Assessment and plan: 66-year-old female presents to the emergency department complaining of chest pain after dialysis. While in triage, the patient went unresponsive, and without a pulse, No palpable pulses were identified. Patient was placed on a locum tenens and ventricular fibrillation was noted. Patient was defibrillated a single time with 200 J. She received CPR protocol, was intubated and had ROSC, and she was then taken to the ICU. Postarrest ECG was consistent with anterior STEMI. Code STEMI was activated, she was taken to lab intern and received angiogram ; stent x 2 in LAD noted to be patent, but had distal LAD spasm Cardiovascular cardiac arrest; Vfib, STEMI, ACS, Distal LAD spasm, cardiogenic shock Cardiology input appreciated, status post cath with patent stents she was rx with amio drip, received heparin ggt x 24 hours, received Dopamine drip for Cardiogenic shock and hypotension,now improved; currently on Lopressor for rate control and now hypertensive -Hypertension. continue antihypertensive medications -Hyperlipidemia- Continue statin therapy Pulmonary Acute hypoxic respiratory failure, mech vent >96 hours Status post extubation today, continue oxygen supplementation and noninvasive positive pressure ventilation as needed Speech therapy evaluation, PT evaluation GI Nausea/Vomiting- Start on zofran, now resolved Toxic metabolic encephalopathy EEG was reviewed, seizure is unlikely. encephalopathy most likely due to acute illness, cardiac arrest and IV sedation now improved, Neurology input appreciated ID Sepsis syndrome; ID consult appreciated, Continue current empiric therapy. Follow clinically for localizing issues., trachial aspirate cx, NGTD WBC count is slowly downtrending RENAL/FEN End stage renal disease on hemodialysis. Nephrology following. Continue hemodialysis Hyperkalemia-corrected with dialysis Complete immobility due to frailty PT consult, patient will need SNIF placement Diabetes mellitus type 2. Accu-Cheks and sliding scale insulin. Morbid obesity- counselling once extubated. Anemia of CKD. Follow H&H. Transfuse as necessary. History of breast cancer. 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 The aggregate critical care time was [35] minutes. This time is in addition to time spent performing reported procedures but includes the following: [x] Data Review and interpretation [x] Patient assessment and monitoring of vital signs [x] Documentation [x] Medication orders and management History Interval history: she was extubated today, she admits some throat discomfort, and feels ok, denies sob, feels very weak and tired Hospitalist Physical - Physical exam Narrative exam: General: Patient appears well in no distress, HEENT: MMM, EOMI, weak voice cardiac: S1-S2 heard lungs: clear to auscultation, abdomen: soft, nontender, nondistended bowel sounds positive extremities: no edema clubbing or cyanosis Skin: no rash or lesion Neuro: AAOx3, moves all extremities, obeys commands, generalized weakness - Constitutional Vitals: Temp Pulse Resp BP Pulse Ox 98.6 F 66 24 137/61 97 03/24/17 16:00 03/24/17 18:00 03/24/17 18:00 03/24/17 18:00 03/24/17 18:00 General appearance: Present: no acute distress, obese Results - Labs CBC & Chem 7: 03/25/17 04:38 03/25/17 04:38 Labs: Laboratory Last Values WBC 10.2 K/mm3 (4.5-11.0) 03/24/17 08:49 RBC 2.99 M/mm3 (3.65-5.03) L 03/24/17 08:49 Hgb 8.5 gm/dl (10.1-14.3) L 03/24/17 08:49 Hct 25.9 % (30.3-42.9) L 03/24/17 08:49 MCV 87 fl (79-97) 03/24/17 08:49 MCH 28 pg (28-32) 03/24/17 08:49 MCHC 33 % (30-34) 03/24/17 08:49 RDW 18.1 % (13.2-15.2) H 03/24/17 08:49 Plt Count 222 K/mm3 (140-440) 03/24/17 08:49 Lymph % (Auto) Magneto Repairer 03/23/17 05:00 Piute % (Auto) Magneto Repairer 03/24/17 08:49 Eos % (Auto) Magneto Repairer 03/23/17 05:00 Baso % (Auto) Magneto Repairer 03/23/17 05:00 Lymph # Magneto Repairer 03/23/17 05:00 Piute # Magneto Repairer 03/23/17 05:00 Eos # Magneto Repairer 03/23/17 05:00 Baso # Magneto Repairer 03/23/17 05:00 Add Manual Diff Complete 03/24/17 08:49 Total Counted 100 03/24/17 08:49 Seg Neutrophils % Magneto Repairer 03/23/17 05:00 Seg Neuts % (Manual) 83.0 % (40.0-70.0) H 03/24/17 08:49 Band Neutrophils % 0 % 03/24/17 08:49 Lymphocytes % (Manual) 6.0 % (13.4-35.0) L 03/24/17 08:49 Reactive Lymphs % (Man) 0 % 03/24/17 08:49 Monocytes % (Manual) 7.0 % (0.0-7.3) 03/24/17 08:49 Eosinophils % (Manual) 2.0 % (0.0-4.3) 03/24/17 08:49 Basophils % (Manual) 1.0 % (0.0-1.8) 03/24/17 08:49 Metamyelocytes % 1.0 % 03/24/17 08:49 Myelocytes % 0 % 03/24/17 08:49 Promyelocytes % 0 % 03/24/17 08:49 Blast Cells % 0 % 03/24/17 08:49 Nucleated RBC % Not Reportable 03/24/17 08:49 Seg Neutrophils # Magneto Repairer 03/23/17 05:00 Seg Neutrophils # Man 8.5 K/mm3 (1.8-7.7) H 03/24/17 08:49 Band Neutrophils # 0.0 K/mm3 03/24/17 08:49 Lymphocytes # (Manual) 0.6 K/mm3 (1.2-5.4) L 03/24/17 08:49 Abs React Lymphs (Man) 0.0 K/mm3 03/24/17 08:49 Monocytes # (Manual) 0.7 K/mm3 (0.0-0.8) 03/24/17 08:49 Eosinophils # (Manual) 0.2 K/mm3 (0.0-0.4) 03/24/17 08:49 Basophils # (Manual) 0.1 K/mm3 (0.0-0.1) 03/24/17 08:49 Metamyelocytes # 0.1 K/mm3 03/24/17 08:49 Myelocytes # 0.0 K/mm3 03/24/17 08:49 Promyelocytes # 0.0 K/mm3 03/24/17 08:49 Blast Cells # 0.0 K/mm3 03/24/17 08:49 WBC Morphology Not Reportable 03/24/17 08:49 Hypersegmented Neuts Not Reportable 03/24/17 08:49 Hyposegmented Neuts Not Reportable 03/24/17 08:49 Hypogranular Neuts Not Reportable 03/24/17 08:49 Smudge Cells Not Reportable 03/24/17 08:49 Toxic Granulation Not Reportable 03/24/17 08:49 Toxic Vacuolation Not Reportable 03/24/17 08:49 Dohle Bodies Not Reportable 03/24/17 08:49 Pelger-Huet Anomaly Not Reportable 03/24/17 08:49 Tunde Rods Not Reportable 03/24/17 08:49 Platelet Estimate Cons 03/24/17 08:49 Clumped Platelets Not Reportable 03/24/17 08:49 Plt Clumps, EDTA Not Reportable 03/24/17 08:49 Large Platelets Rare 03/24/17 08:49 Giant Platelets Not Reportable 03/24/17 08:49 Platelet Satelliting Not Reportable 03/24/17 08:49 Plt Morphology Comment Not Reportable 03/24/17 08:49 RBC Morphology Not Reportable 03/24/17 08:49 Dimorphic RBCs Not Reportable 03/24/17 08:49 Polychromasia Not Reportable 03/24/17 08:49 Hypochromasia Not Reportable 03/24/17 08:49 Poikilocytosis Not Reportable 03/24/17 08:49 Anisocytosis 1+ 03/24/17 08:49 Microcytosis Not Reportable 03/24/17 08:49 Macrocytosis Not Reportable 03/24/17 08:49 Spherocytes Not Reportable 03/24/17 08:49 Pappenheimer Bodies Not Reportable 03/24/17 08:49 Sickle Cells Not Reportable 03/24/17 08:49 Target Cells Not Reportable 03/24/17 08:49 Tear Drop Cells Not Reportable 03/24/17 08:49 Ovalocytes Not Reportable 03/24/17 08:49 Helmet Cells Not Reportable 03/24/17 08:49 [place] Bodies Not Reportable 03/24/17 08:49 [place] Rings Not Reportable 03/24/17 08:49 [place] Cells Not Reportable 03/24/17 08:49 Bite Cells Not Reportable 03/24/17 08:49 Crenated Cell Not Reportable 03/24/17 08:49 Elliptocytes Not Reportable 03/24/17 08:49 Acanthocytes (Spur) Not Reportable 03/24/17 08:49 Rouleaux Not Reportable 03/24/17 08:49 Hemoglobin C Crystals Not Reportable 03/24/17 08:49 Schistocytes Not Reportable 03/24/17 08:49 Malaria parasites Not Reportable 03/24/17 08:49 [place] Bodies Not Reportable 03/24/17 08:49 Hem Pathologist Commnt No 03/24/17 08:49 PT 13.4 Sec. (12.2-14.9) 03/16/17 11:07 INR 1.03 (0.87-1.13) 03/16/17 11:07 APTT 24.1 Sec. (24.2-36.6) L 03/16/17 11:07 Activated Clotting Time 125 (74-137) 03/17/17 08:23 Heparin Anti-Xa Level < 0.10 U.I./ml (0.3-0.7) L 03/17/17 21:12 POC ABG pH 7.388 (7.35-7.45) 03/23/17 12:18 POC ABG pCO2 44.0 (35-45) 03/23/17 12:18 POC ABG pO2 87 (80-105) 03/23/17 12:18 POC ABG HCO3 26.5 03/23/17 12:18 POC ABG Total CO2 28 03/23/17 12:18 POC ABG O2 Sat 96 03/23/17 12:18 POC ABG Base Excess 2 03/23/17 12:18 FiO2 30 % 03/23/17 12:18 Sodium 141 mmol/L (137-145) 03/24/17 08:49 Potassium 4.6 mmol/L (3.6-5.0) 03/24/17 08:49 Chloride 95.4 mmol/L (98-107) L 03/24/17 08:49 Carbon Dioxide 23 mmol/L (22-30) 03/24/17 08:49 Anion Gap 27 mmol/L 03/24/17 08:49 BUN 108 mg/dL (7-17) H 03/24/17 08:49 Creatinine 9.4 mg/dL (0.7-1.2) H 03/24/17 08:49 Estimated GFR 5 ml/min 03/24/17 08:49 BUN/Creatinine Ratio 11.48 % 03/24/17 08:49 Glucose 203 mg/dL (65-100) H 03/24/17 08:49 POC Glucose 185 (70-105) H 03/24/17 11:21 Lactic Acid 1.40 mmol/L (0.7-2.0) 03/17/17 19:50 Calcium 9.5 mg/dL (8.4-10.2) 03/24/17 08:49 Total Bilirubin 0.50 mg/dL (0.1-1.2) 03/21/17 07:45 AST 23 units/L (5-40) 03/21/17 07:45 ALT 40 units/L (7-56) 03/21/17 07:45 Alkaline Phosphatase 244 units/L (35-129) H 03/21/17 07:45 Ammonia 38.0 umol/L (25-60) 03/18/17 19:02 Total Creatine Kinase 282 units/L (30-135) H 03/16/17 16:36 CK-MB (CK-2) 24.2 ng/mL (0.0-4.0) H 03/16/17 16:36 CK-MB (CK-2) Rel Index 8.5 (0-4) H 03/16/17 16:36 Troponin T 0.656 ng/mL (0.00-0.029) H* D 03/16/17 16:36 C-Reactive Protein 33.90 mg/dL (0.00-1.30) H 03/17/17 17:15 Total Protein 7.3 g/dL (6.3-8.2) 03/21/17 07:45 Albumin 2.8 g/dL (3.9-5) L 03/21/17 07:45 Albumin/Globulin Ratio 0.6 % 03/21/17 07:45 Triglycerides 134 mg/dL (2-149) 03/16/17 11:07 Cholesterol 228 mg/dL (50-199) H 03/16/17 11:07 LDL Cholesterol Direct 165 mg/dL (50-130) H 03/16/17 11:07 HDL Cholesterol 37 mg/dL (40-59) L 03/16/17 11:07 Cholesterol/HDL Ratio 6.16 % 03/16/17 11:07 TSH 0.746 mlU/mL (0.270-4.200) 03/18/17 19:02 Random Vancomycin 20.9 ug/mL (0-40.0) 03/22/17 07:40 Hepatitis A IgM Ab Non-reactive (NonReactive) 03/19/17 04:31 Hep Bs Antigen Non-reactive (Negative) 03/19/17 04:31 Hep B Core IgM Ab Non-reactive (NonReactive) 03/19/17 04:31 Hepatitis C Antibody Non-reactive (NonReactive) 03/19/17 04:31 Blood Type A POSITIVE 03/16/17 16:36 Antibody Screen TNR 03/16/17 16:36 CLAIR Antibody Screen Negative 03/16/17 16:36
[2017-03-25] MEDS: DUONEB *Not for PRN Use IH SCH ×4 (02:15→20:12)
[2017-03-25] MEDS: FLAGYL 500 MG/100 ML 500 MG/100 ML BAG IV SCH ×3 (05:02→23:45)
[2017-03-25] MEDS: LOPRESSOR PO SCH ×4 (05:09→22:25)
[2017-03-25 05:37] LABS: Hematocrit 29.8 % (30.3-42.9); Hemoglobin 9.3 gm/dl (10.1-14.3); Mean Corpuscular HGB Conc 31 % (30-34); Mean Corpuscular Hemoglobin 28 pg (28-32); Mean Corpuscular Volume 91 fl (79-97); Platelet Count 148 K/mm3 (140-440); Red Blood Count 3.27 M/mm3 (3.65-5.03); Red Cell Distribution Width 18.4 % (13.2-15.2); White Blood Count 8.4 K/mm3 (4.5-11.0)
[2017-03-25 05:42] LABS: Calcium 9.4 mg/dL (8.4-10.2); Chloride 92.5 mmol/L (98-107); Potassium 4.4 mmol/L (3.6-5.0)
[2017-03-25 05:48] LABS: BUN/Creatinine Ratio 12.78
[2017-03-25] MEDS: REGLAN IV SCH ×4 (06:09→23:45)
--- NOTE | 2017-03-25 06:22 | Progress Note ---
Assessment and Plan - Patient Problems (1) Sepsis syndrome Current Visit: Yes Status: Acute Plan to address problem: 1. Stable. Afebrile. WBC improved. 2. Continue current antimicrobials to complete 7 days (~stop date March 29) . 3. Continue to monitor for new clinical changes. Subjective Date of service: 03/25/17 Principal diagnosis: Acute Hypoxemic Resp Failure; STEMI Interval history: Extubated. Remains in ICU. Afebrile for several days. Objective - Constitutional Vitals: Vital Signs Temp Pulse Resp BP Pulse Ox 98.7 F 66 21 145/64 94 03/25/17 04:00 03/25/17 05:09 03/25/17 04:00 03/25/17 05:09 03/25/17 04:00 Temperature -Last 24 Hours Temperature 98.7 F Temperature 97.4 F Temperature 98.2 F Temperature 98.6 F Temperature 98.9 F Temperature 98.0 F General appearance: Present: no acute distress, obese - EENT Eyes: scleral icterus, no conjunctival injection - Neck Neck: supple - Respiratory Respiratory effort: normal Respiratory: bilateral: CTA, negative: rales, rhonchi - Cardiovascular Rhythm: regular Heart Sounds: Present: S1 & S2 Extremities: No edema - Gastrointestinal General gastrointestinal: Present: soft, non-distended, normal bowel sounds - Integumentary Integumentary: no jaundice, no rash - Additional findings Additional findings: left femoral TLC without inflammation - Labs CBC & Chem 7: 03/25/17 04:38 03/25/17 04:38 Labs: Abnormal lab results 03/24/17 03/24/17 03/24/17 Range/Units 08:49 08:49 11:21 RBC 2.99 L (3.65-5.03) M/mm3 Hgb 8.5 L (10.1-14.3) gm/dl Hct 25.9 L (30.3-42.9) % RDW 18.1 H (13.2-15.2) % Seg Neuts % (Manual) 83.0 H (40.0-70.0) % Lymphocytes % (Manual) 6.0 L (13.4-35.0) % Seg Neutrophils # Man 8.5 H (1.8-7.7) K/mm3 Lymphocytes # (Manual) 0.6 L (1.2-5.4) K/mm3 Sodium (137-145) mmol/L Chloride 95.4 L (98-107) mmol/L Carbon Dioxide (22-30) mmol/L BUN 108 H (7-17) mg/dL Creatinine 9.4 H (0.7-1.2) mg/dL Glucose 203 H (65-100) mg/dL POC Glucose 185 H (70-105) 03/24/17 03/24/17 03/25/17 Range/Units 17:32 23:37 04:38 RBC 3.27 L (3.65-5.03) M/mm3 Hgb 9.3 L (10.1-14.3) gm/dl Hct 29.8 L (30.3-42.9) % RDW 18.4 H (13.2-15.2) % Seg Neuts % (Manual) (40.0-70.0) % Lymphocytes % (Manual) (13.4-35.0) % Seg Neutrophils # Man (1.8-7.7) K/mm3 Lymphocytes # (Manual) (1.2-5.4) K/mm3 Sodium (137-145) mmol/L Chloride (98-107) mmol/L Carbon Dioxide (22-30) mmol/L BUN (7-17) mg/dL Creatinine (0.7-1.2) mg/dL Glucose (65-100) mg/dL POC Glucose 138 H 218 H (70-105) 03/25/17 03/25/17 Range/Units 04:38 05:24 RBC (3.65-5.03) M/mm3 Hgb (10.1-14.3) gm/dl Hct (30.3-42.9) % RDW (13.2-15.2) % Seg Neuts % (Manual) (40.0-70.0) % Lymphocytes % (Manual) (13.4-35.0) % Seg Neutrophils # Man (1.8-7.7) K/mm3 Lymphocytes # (Manual) (1.2-5.4) K/mm3 Sodium 136 L (137-145) mmol/L Chloride 92.5 L (98-107) mmol/L Carbon Dioxide 17 L (22-30) mmol/L BUN 124 H (7-17) mg/dL Creatinine 9.7 H (0.7-1.2) mg/dL Glucose 217 H (65-100) mg/dL POC Glucose 211 H (70-105) Microbiology 03/21/17 08:47 Tracheal Aspirate Sputum Culture - Final 03/21/17 Unknown Tracheal Aspirate Sputum Culture - Preliminary 03/16/17 21:51 Peripheral/Venous Blood Culture - Final NO GROWTH AFTER 5 DAYS 03/16/17 21:43 Peripheral/Venous Blood Culture - Final NO GROWTH AFTER 5 DAYS
[2017-03-25 07:10] LABS: Basophils % (Manual) 0 % (0.0-1.8); Blastocytes % (Manual) 0 %
[2017-03-25 07:11] LABS: Anisocytosis 1+
[2017-03-25 07:12] LABS: Diff Status Complete; Macrocytosis Few; Platelet Estimate Consistent w Auto
--- NOTE | 2017-03-25 07:20 | Progress Note ---
Assessment and Plan End-stage renal disease patient is currently on maintenance hemodialysis She tolerated hemodialysis treatment fairly well Free water flushes were discontinued Patient may require longer duration of treatment depending on her volume as well as electrolytes and metabolic control Respiratory failure currently on BiPAP Hemodynamically stable today Will reevaluate in the morning Family was adequately counseled and educated regarding renal-related issues We'll continue to follow and make recommendations from renal standpoint Subjective Principal diagnosis: Acute Hypoxemic Resp Failure; STEMI Interval history: Patient was admitted today for follow-up of multiple renal-related issues She tolerated hemodialysis treatment well today Family members are at the bedside Currently she is getting free water flushes which was discontinued as discussed with the nurse Events of 24 hours vitals labs intake output medications were reviewed Vitals: Reviewed HEENT currently on BiPAP Chest: Clear to auscultation anteriorly posteriorly to percussion at the bases. Heart: Regular rate and rhythm S1-S2 heard Abdomen soft nontender bowel sounds present Objective - Vital Signs Vital signs: Vital Signs - 12hr 03/24/17 03/24/17 03/24/17 20:00 20:40 20:41 Temperature 98.2 F Pulse Rate 68 Pulse Rate [ 68 Anterior Bilateral Throughout] Pulse Rate [ 77 From Monitor] Pulse Rate [ 70 Left Dorsalis Pedis] Pulse Rate [ 74 Left Radial] Pulse Rate [ 73 Right Radial] Respiratory 30 H Rate Respiratory 19 Rate [Anterior Bilateral Throughout] Respiratory 21 Rate [Right Head] Blood Pressure 158/68 O2 Sat by Pulse 94 28 L Oximetry 03/24/17 03/24/17 03/24/17 20:56 21:00 21:40 Temperature Pulse Rate 68 73 Pulse Rate [ 70 Anterior Bilateral Throughout] Pulse Rate [ From Monitor] Pulse Rate [ Left Dorsalis Pedis] Pulse Rate [ Left Radial] Pulse Rate [ Right Radial] Respiratory 26 H Rate Respiratory 19 Rate [Anterior Bilateral Throughout] Respiratory Rate [Right Head] Blood Pressure 136/53 136/53 O2 Sat by Pulse 93 Oximetry 03/24/17 03/24/17 03/25/17 22:00 23:00 00:00 Temperature 97.4 F L Pulse Rate 71 67 69 Pulse Rate [ Anterior Bilateral Throughout] Pulse Rate [ From Monitor] Pulse Rate [ Left Dorsalis Pedis] Pulse Rate [ Left Radial] Pulse Rate [ Right Radial] Respiratory 33 H 28 H 27 H Rate Respiratory Rate [Anterior Bilateral Throughout] Respiratory Rate [Right Head] Blood Pressure 145/53 145/62 134/53 O2 Sat by Pulse 94 95 96 Oximetry 03/25/17 03/25/17 03/25/17 01:00 02:00 03:00 Temperature Pulse Rate 72 66 68 Pulse Rate [ Anterior Bilateral Throughout] Pulse Rate [ From Monitor] Pulse Rate [ Left Dorsalis Pedis] Pulse Rate [ Left Radial] Pulse Rate [ Right Radial] Respiratory 20 25 H 25 H Rate Respiratory Rate [Anterior Bilateral Throughout] Respiratory Rate [Right Head] Blood Pressure 159/67 140/55 145/64 O2 Sat by Pulse 93 94 95 Oximetry 03/25/17 03/25/17 04:00 05:09 Temperature 98.7 F Pulse Rate 66 66 Pulse Rate [ Anterior Bilateral Throughout] Pulse Rate [ From Monitor] Pulse Rate [ Left Dorsalis Pedis] Pulse Rate [ Left Radial] Pulse Rate [ Right Radial] Respiratory 28 H Rate Respiratory Rate [Anterior Bilateral Throughout] Respiratory 21 Rate [Right Head] Blood Pressure 147/58 145/64 O2 Sat by Pulse 94 Oximetry - Lab 03/25/17 04:38 03/26/17 05:59 Most recent lab results Calcium 9.4 mg/dL (8.4-10.2) 03/25/17 04:38
--- NOTE | 2017-03-25 10:54 | Progress Note ---
Assessment and Plan Currently stable cardiac status. Cont present cardiac management. The patient has been seen in conjunction with Dr. García who agrees with the assessment and plan of care. - Patient Problems (1) Acute hypoxemic respiratory failure Current Visit: Yes Status: Resolved (2) Cardiac arrest Current Visit: Yes Status: Acute (3) Cardiac arrest due to underlying cardiac condition Current Visit: Yes Status: Acute (4) ESRD on dialysis Current Visit: Yes Status: Acute (5) Obesity (BMI 30-39.9) Current Visit: Yes Status: Chronic (6) STEMI (ST elevation myocardial infarction) Current Visit: Yes Status: Acute Qualifiers: Involved coronary artery: unspecified coronary artery Qualified Code(s): I21.3 - ST elevation (STEMI) myocardial infarction of unspecified site (7) Seizure Current Visit: Yes Status: Acute (8) Sepsis syndrome Current Visit: Yes Status: Acute (9) Aortic stenosis Current Visit: Yes Status: Chronic Qualifiers: Cardiac valve disease etiology: C (10) Pulmonary HTN Current Visit: Yes Status: Chronic (11) CVA (cerebral vascular accident) Current Visit: No Status: Acute Qualifiers: CVA mechanism: C Precerebral and cerebral artery: P Laterality of affected vessel: L (12) Kidney stone Current Visit: No Status: Chronic (13) Rectal bleed Current Visit: No Status: Acute (14) UTI (urinary tract infection) Current Visit: No Status: Acute Qualifiers: Urinary tract infection type: U Hematuria presence: H Indwelling urinary catheter type: I Encounter type: E (15) Hypertension Current Visit: No Status: Chronic Qualifiers: Hypertension type: H (16) Type 2 diabetes mellitus Current Visit: No Status: Chronic Qualifiers: Diabetes mellitus complication status: D Diabetes mellitus complication detail: D Diabetic retinopathy severity: D Proliferative retinopathy type: P Diabetes mellitus macular edema: D Diabetes mellitus exterminator termite insulin use : D Laterality: L Chronic kidney disease stage: C Subjective Date of service: 03/25/17 Principal diagnosis: Acute Hypoxemic Resp Failure; STEMI Interval history: Pt resting in bed, NAD, has been extubated to [place]. No complaints. Undergoing HD at bedside. VSS. Objective Last Vital Signs Temp 97.7 F 03/25/17 09:45 Pulse 68 03/25/17 10:45 Resp 23 03/25/17 10:00 BP 128/60 06/26/17 10:45 Pulse Ox 94 03/25/17 10:00 - Physical Examination General: Appears Well, No Apparent Distress HEENT: Positive: Normocephaly, Mucus Membranes Moist Neck: Positive: neck supple, trachea midline Cardiac: Positive: Reg Rate and Rhythm, S1/S2 Lungs: Positive: clear to auscultation Neuro: Positive: Grossly Intact Abdomen: Positive: Soft, Active Bowel Sounds Skin: Negative: Clear, Rash Musculoskeletal: No Fluid Collection, No Pain, Normal Range of Motion Extremities: Present: upper extr. pulses, lower extr. pulses. Absent: edema - Labs and Meds CBC 03/25/17 Range/Units 04:38 WBC 8.4 (4.5-11.0) K/mm3 RBC 3.27 L (3.65-5.03) M/mm3 Hgb 9.3 L (10.1-14.3) gm/dl Hct 29.8 L (30.3-42.9) % Plt Count 148 (140-440) K/mm3 Lymph # Offal Roller Parmer # Offal Roller Eos # Offal Roller Baso # Offal Roller Comprehensive Metabolic Panel 03/25/17 Range/Units 04:38 Sodium 136 L (137-145) mmol/L Potassium 4.4 (3.6-5.0) mmol/L Chloride 92.5 L (98-107) mmol/L Carbon Dioxide 17 L (22-30) mmol/L BUN 124 H (7-17) mg/dL Creatinine 9.7 H (0.7-1.2) mg/dL Glucose 217 H (65-100) mg/dL Calcium 9.4 (8.4-10.2) mg/dL - Imaging and Cardiology EKG: report reviewed, image reviewed Echo: report reviewed - Telemetry EKG Rhythm: Sinus Rhythm - EKG Sinus rhythms and dysrhythmias: sinus rhythm Myocardial infarction: inferior VA (acute or rec, anterior VA (acute or rec - Allied health notes Allied health notes reviewed: RT
--- NOTE | 2017-03-25 11:20 | Progress Note ---
Assessment and Plan - Patient Problems (1) Acute hypoxemic respiratory failure Current Visit: Yes Status: Resolved Plan to address problem: - continue aspiration precautions - continue bronchodilators and pulmonary toilet - continue to wean oxygen for sats > 94% - use BIPAP scheduled qhs and prn daytime - continue HD/UF for toxin and volume clearance - prn ABG's to evaluate for hypercapnia (2) ESRD on dialysis Current Visit: Yes Status: Acute Plan to address problem: - continue HD/UF per nephrology prescription - oliguric (3) Obesity (BMI 30-39.9) Current Visit: Yes Status: Chronic Plan to address problem: - weight loss - outpatient sleep clinic evaluation (4) Sepsis syndrome Current Visit: Yes Status: Acute Plan to address problem: - begin empiric AB's - get ID consultation - wean dopamine for MAP > 65mmHg - CRP significantly elevated however lactate WNL and cultures negative - complete empiric AB's dose (5) STEMI (ST elevation myocardial infarction) Current Visit: Yes Status: Acute Qualifiers: Involved coronary artery: unspecified coronary artery Qualified Code(s): I21.3 - ST elevation (STEMI) myocardial infarction of unspecified site Plan to address problem: - on SQ heparin now for VTE prophylaxis - clinically improved - on plavix - cardiology on case and managing (will defer otherwise) (6) Type 2 diabetes mellitus Current Visit: No Status: Chronic Qualifiers: Diabetes mellitus complication status: D Diabetes mellitus complication detail: D Diabetic retinopathy severity: D Proliferative retinopathy type: P Diabetes mellitus macular edema: D Diabetes mellitus long term care social worker insulin use : D Laterality: L Chronic kidney disease stage: C Plan to address problem: - continue SSI for glycemic control (7) Discharge planning issues Current Visit: Yes Status: Acute Plan to address problem: - hopefully menrtal status improves and she can stay off BIPAP during the day at which point can contemplate telemetry transfer ...for now remains critically ill on life sustaining interventions including continuous NIV and at high risk for further deterioration including ...30' CCT Subjective Date of service: 03/25/17 Principal diagnosis: Acute Hypoxemic Resp Failure; STEMI Interval history: Seen and examined at bedside; 24 hour events reviewed; nursing and respiratory care staff consulted; no adverse overnight events reported to me; resting peacefully; HD/UF ongoing; lethargic but without overt respiratory distress; responds appriopritely though; no N/V/F/C and BP holding Objective Vital Signs - 12hr 03/25/17 03/25/17 03/25/17 00:00 01:00 02:00 Temperature 97.4 F L Pulse Rate 69 72 66 Pulse Rate [ Anterior Bilateral Throughout] Respiratory 27 H 20 25 H Rate Respiratory Rate [Anterior Bilateral Throughout] Respiratory Rate [Right Head] Blood Pressure 134/53 159/67 140/55 O2 Sat by Pulse 96 93 94 Oximetry O2 Sat by Pulse Oximetry [ Anterior Bilateral Throughout] 03/25/17 03/25/17 03/25/17 03:00 04:00 05:00 Temperature 98.7 F Pulse Rate 68 66 65 Pulse Rate [ Anterior Bilateral Throughout] Respiratory 25 H 28 H 23 Rate Respiratory Rate [Anterior Bilateral Throughout] Respiratory 21 Rate [Right Head] Blood Pressure 145/64 147/58 142/54 O2 Sat by Pulse 95 94 95 Oximetry O2 Sat by Pulse Oximetry [ Anterior Bilateral Throughout] 03/25/17 03/25/17 03/25/17 05:09 06:00 07:00 Temperature Pulse Rate 66 67 63 Pulse Rate [ Anterior Bilateral Throughout] Respiratory 22 19 Rate Respiratory Rate [Anterior Bilateral Throughout] Respiratory Rate [Right Head] Blood Pressure 145/64 143/54 133/54 O2 Sat by Pulse 94 95 Oximetry O2 Sat by Pulse Oximetry [ Anterior Bilateral Throughout] 03/25/17 03/25/17 03/25/17 08:00 08:37 08:38 Temperature 97.7 F Pulse Rate 61 Pulse Rate [ 62 Anterior Bilateral Throughout] Respiratory 24 Rate Respiratory 24 Rate [Anterior Bilateral Throughout] Respiratory Rate [Right Head] Blood Pressure 154/67 O2 Sat by Pulse 96 98 Oximetry O2 Sat by Pulse Oximetry [ Anterior Bilateral Throughout] 03/25/17 03/25/17 03/25/17 08:51 09:00 09:45 Temperature 97.7 F Pulse Rate 63 62 Pulse Rate [ 64 Anterior Bilateral Throughout] Respiratory 24 22 Rate Respiratory 24 Rate [Anterior Bilateral Throughout] Respiratory Rate [Right Head] Blood Pressure 154/67 156/80 O2 Sat by Pulse 95 Oximetry O2 Sat by Pulse 97 Oximetry [ Anterior Bilateral Throughout] 03/25/17 03/25/17 03/25/17 10:00 10:15 10:30 Temperature Pulse Rate 63 64 66 Pulse Rate [ Anterior Bilateral Throughout] Respiratory 23 Rate Respiratory Rate [Anterior Bilateral Throughout] Respiratory Rate [Right Head] Blood Pressure 138/58 123/57 128/57 O2 Sat by Pulse 94 Oximetry O2 Sat by Pulse Oximetry [ Anterior Bilateral Throughout] 03/25/17 03/25/17 10:45 11:00 Temperature Pulse Rate 68 68 Pulse Rate [ Anterior Bilateral Throughout] Respiratory Rate Respiratory Rate [Anterior Bilateral Throughout] Respiratory Rate [Right Head] Blood Pressure 128/60 137/67 O2 Sat by Pulse Oximetry O2 Sat by Pulse Oximetry [ Anterior Bilateral Throughout] Constitutional: no acute distress, lethargic Eyes: non-icteric ENT: oropharynx moist Neck: supple, no lymphadenopathy, no JVD Effort: mildly labored Ascultation: Bilateral: diminished breath sounds, rales (scant in bases) Cardiovascular: regular rate and rhythm Gastrointestinal: normoactive bowel sounds, soft, non-tender, non-distended Integumentary: normal, other (Femoral CVC) Extremities: no cyanosis, no edema, pulses normal, no ischemia or petechiae Neurologic: normal mental status, non-focal exam (Moves all extremities, tracks my voice, attempts to vocalize in response to questions), unable to assess Psychiatric: other (unable to assess) CBC and BMP: 03/25/17 04:38 03/26/17 05:59 ABG, PT/INR, D-dimer: ABG POC ABG pH 7.388 (7.35-7.45) 03/23/17 12:18 POC ABG pCO2 44.0 (35-45) 03/23/17 12:18 POC ABG pO2 87 (80-105) 03/23/17 12:18 POC ABG HCO3 26.5 03/23/17 12:18 POC ABG Total CO2 28 03/23/17 12:18 POC ABG O2 Sat 96 03/23/17 12:18 PT/INR, D-dimer PT 13.4 Sec. (12.2-14.9) 03/16/17 11:07 INR 1.03 (0.87-1.13) 03/16/17 11:07 Abnormal lab findings: Abnormal Labs 03/16/17 03/16/17 03/17/17 16:36 18:00 03:42 WBC 20.6 H RBC Hgb Hct RDW 17.3 H Lymph % (Auto) [place] % (Auto) Lymph # [place] # Seg Neutrophils % Seg Neuts % (Manual) 84.0 H Lymphocytes % (Manual) 3.0 L Monocytes % (Manual) 11.0 H Seg Neutrophils # Seg Neutrophils # Man 17.3 H Lymphocytes # (Manual) 0.6 L Monocytes # (Manual) 2.3 H Heparin Anti-Xa Level POC ABG pH 7.336 L POC ABG pCO2 47.9 H POC ABG pO2 189 H Sodium Potassium Chloride Carbon Dioxide BUN Creatinine Glucose POC Glucose ALT Alkaline Phosphatase Total Creatine Kinase 282 H CK-MB (CK-2) 24.2 H CK-MB (CK-2) Rel Index 8.5 H Troponin T 0.656 H* D C-Reactive Protein Albumin 03/17/17 03/17/17 03/17/17 03:42 04:21 17:15 WBC RBC Hgb Hct RDW Lymph % (Auto) [place] % (Auto) Lymph # [place] # Seg Neutrophils % Seg Neuts % (Manual) Lymphocytes % (Manual) Monocytes % (Manual) Seg Neutrophils # Seg Neutrophils # Man Lymphocytes # (Manual) Monocytes # (Manual) Heparin Anti-Xa Level 0.10 L POC ABG pH POC ABG pCO2 POC ABG pO2 Sodium 131 L Potassium 5.3 H D Chloride 89.5 L Carbon Dioxide 21 L BUN 39 H Creatinine 7.0 H Glucose 151 H POC Glucose ALT Alkaline Phosphatase Total Creatine Kinase CK-MB (CK-2) CK-MB (CK-2) Rel Index Troponin T C-Reactive Protein 33.90 H Albumin 03/17/17 03/18/17 03/18/17 21:12 03:33 03:33 WBC 17.6 H RBC 3.59 L Hgb Hct RDW 16.9 H Lymph % (Auto) 4.2 L [place] % (Auto) 11.8 H Lymph # 0.7 L [place] # 2.1 H Seg Neutrophils % 83.3 H Seg Neuts % (Manual) Lymphocytes % (Manual) Monocytes % (Manual) Seg Neutrophils # 14.7 H Seg Neutrophils # Man Lymphocytes # (Manual) Monocytes # (Manual) Heparin Anti-Xa Level < 0.10 L POC ABG pH POC ABG pCO2 POC ABG pO2 Sodium 127 L Potassium 6.1 H* Chloride 87.2 L Carbon Dioxide BUN 55 H Creatinine 8.7 H Glucose 140 H POC Glucose ALT Alkaline Phosphatase Total Creatine Kinase CK-MB (CK-2) CK-MB (CK-2) Rel Index Troponin T C-Reactive Protein Albumin 03/18/17 03/18/17 03/19/17 04:34 22:15 00:04 WBC RBC Hgb Hct RDW Lymph % (Auto) [place] % (Auto) Lymph # [place] # Seg Neutrophils % Seg Neuts % (Manual) Lymphocytes % (Manual) Monocytes % (Manual) Seg Neutrophils # Seg Neutrophils # Man Lymphocytes # (Manual) Monocytes # (Manual) Heparin Anti-Xa Level POC ABG pH 7.289 L POC ABG pCO2 48.7 H POC ABG pO2 Sodium Potassium 5.6 H Chloride Carbon Dioxide BUN Creatinine Glucose POC Glucose 108 H ALT Alkaline Phosphatase Total Creatine Kinase CK-MB (CK-2) CK-MB (CK-2) Rel Index Troponin T C-Reactive Protein Albumin 03/19/17 03/19/17 03/19/17 05:22 08:00 08:00 WBC 16.3 H RBC 3.15 L Hgb 8.8 L Hct 27.3 L RDW 17.4 H Lymph % (Auto) 3.4 L [place] % (Auto) 10.1 H Lymph # 0.5 L [place] # 1.7 H Seg Neutrophils % 85.4 H Seg Neuts % (Manual) Lymphocytes % (Manual) Monocytes % (Manual) Seg Neutrophils # 13.9 H Seg Neutrophils # Man Lymphocytes # (Manual) Monocytes # (Manual) Heparin Anti-Xa Level POC ABG pH POC ABG pCO2 POC ABG pO2 Sodium 131 L Potassium Chloride 89.3 L Carbon Dioxide BUN 56 H Creatinine 7.8 H Glucose 122 H POC Glucose 146 H ALT 59 H Alkaline Phosphatase 208 H Total Creatine Kinase CK-MB (CK-2) CK-MB (CK-2) Rel Index Troponin T C-Reactive Protein Albumin 2.6 L 03/19/17 03/19/17 03/19/17 08:06 11:50 17:36 WBC RBC Hgb Hct RDW Lymph % (Auto) [place] % (Auto) Lymph # [place] # Seg Neutrophils % Seg Neuts % (Manual) Lymphocytes % (Manual) Monocytes % (Manual) Seg Neutrophils # Seg Neutrophils # Man Lymphocytes # (Manual) Monocytes # (Manual) Heparin Anti-Xa Level POC ABG pH 7.338 L POC ABG pCO2 49.2 H POC ABG pO2 110 H Sodium Potassium Chloride Carbon Dioxide BUN Creatinine Glucose POC Glucose 172 H 152 H ALT Alkaline Phosphatase Total Creatine Kinase CK-MB (CK-2) CK-MB (CK-2) Rel Index Troponin T C-Reactive Protein Albumin 03/20/17 03/20/17 03/20/17 00:14 04:15 05:06 WBC RBC Hgb Hct RDW Lymph % (Auto) [place] % (Auto) Lymph # [place] # Seg Neutrophils % Seg Neuts % (Manual) Lymphocytes % (Manual) Monocytes % (Manual) Seg Neutrophils # Seg Neutrophils # Man Lymphocytes # (Manual) Monocytes # (Manual) Heparin Anti-Xa Level POC ABG pH 7.288 L POC ABG pCO2 51.4 H POC ABG pO2 Sodium Potassium Chloride Carbon Dioxide BUN Creatinine Glucose POC Glucose 132 H 166 H ALT Alkaline Phosphatase Total Creatine Kinase CK-MB (CK-2) CK-MB (CK-2) Rel Index Troponin T C-Reactive Protein Albumin 03/20/17 03/20/17 03/20/17 12:07 15:45 17:41 WBC RBC Hgb Hct RDW Lymph % (Auto) [place] % (Auto) Lymph # [place] # Seg Neutrophils % Seg Neuts % (Manual) Lymphocytes % (Manual) Monocytes % (Manual) Seg Neutrophils # Seg Neutrophils # Man Lymphocytes # (Manual) Monocytes # (Manual) Heparin Anti-Xa Level POC ABG pH POC ABG pCO2 POC ABG pO2 Sodium Potassium Chloride Carbon Dioxide BUN Creatinine Glucose POC Glucose 193 H 172 H 156 H ALT Alkaline Phosphatase Total Creatine Kinase CK-MB (CK-2) CK-MB (CK-2) Rel Index Troponin T C-Reactive Protein Albumin 03/20/17 03/21/17 03/21/17 23:13 04:42 05:41 WBC RBC Hgb Hct RDW Lymph % (Auto) [place] % (Auto) Lymph # [place] # Seg Neutrophils % Seg Neuts % (Manual) Lymphocytes % (Manual) Monocytes % (Manual) Seg Neutrophils # Seg Neutrophils # Man Lymphocytes # (Manual) Monocytes # (Manual) Heparin Anti-Xa Level POC ABG pH 7.321 L POC ABG pCO2 56.8 H POC ABG pO2 73 L Sodium Potassium Chloride Carbon Dioxide BUN Creatinine Glucose POC Glucose 141 H 159 H ALT Alkaline Phosphatase Total Creatine Kinase CK-MB (CK-2) CK-MB (CK-2) Rel Index Troponin T C-Reactive Protein Albumin 03/21/17 03/21/17 03/21/17 07:45 07:45 12:16 WBC 15.1 H RBC 3.32 L Hgb 9.2 L Hct 28.9 L RDW 17.4 H Lymph % (Auto) 4.7 L [place] % (Auto) 16.0 H Lymph # 0.7 L [place] # 2.4 H Seg Neutrophils % 78.6 H Seg Neuts % (Manual) Lymphocytes % (Manual) Monocytes % (Manual) Seg Neutrophils # 11.8 H Seg Neutrophils # Man Lymphocytes # (Manual) Monocytes # (Manual) Heparin Anti-Xa Level POC ABG pH POC ABG pCO2 POC ABG pO2 Sodium Potassium Chloride 95.4 L Carbon Dioxide BUN 55 H Creatinine 6.9 H Glucose 188 H POC Glucose 226 H ALT Alkaline Phosphatase 244 H Total Creatine Kinase CK-MB (CK-2) CK-MB (CK-2) Rel Index Troponin T C-Reactive Protein Albumin 2.8 L 03/21/17 03/21/17 03/22/17 17:17 23:28 04:49 WBC RBC Hgb Hct RDW Lymph % (Auto) [place] % (Auto) Lymph # [place] # Seg Neutrophils % Seg Neuts % (Manual) Lymphocytes % (Manual) Monocytes % (Manual) Seg Neutrophils # Seg Neutrophils # Man Lymphocytes # (Manual) Monocytes # (Manual) Heparin Anti-Xa Level POC ABG pH 7.323 L POC ABG pCO2 49.5 H POC ABG pO2 77 L Sodium Potassium Chloride Carbon Dioxide BUN Creatinine Glucose POC Glucose 192 H 199 H ALT Alkaline Phosphatase Total Creatine Kinase CK-MB (CK-2) CK-MB (CK-2) Rel Index Troponin T C-Reactive Protein Albumin 03/22/17 03/22/17 03/22/17 06:13 07:40 07:40 WBC 16.4 H RBC 3.29 L Hgb 9.1 L Hct 28.4 L RDW 17.3 H Lymph % (Auto) [place] % (Auto) Lymph # [place] # Seg Neutrophils % Seg Neuts % (Manual) 73.0 H Lymphocytes % (Manual) 8.0 L Monocytes % (Manual) 14.0 H Seg Neutrophils # Seg Neutrophils # Man 12.0 H Lymphocytes # (Manual) Monocytes # (Manual) 2.3 H Heparin Anti-Xa Level POC ABG pH POC ABG pCO2 POC ABG pO2 Sodium Potassium Chloride 94.8 L Carbon Dioxide 21 L BUN 84 H Creatinine 9.4 H Glucose 188 H POC Glucose 190 H ALT Alkaline Phosphatase Total Creatine Kinase CK-MB (CK-2) CK-MB (CK-2) Rel Index Troponin T C-Reactive Protein Albumin 03/22/17 03/22/17 03/22/17 11:43 17:38 23:56 WBC RBC Hgb Hct RDW Lymph % (Auto) [place] % (Auto) Lymph # [place] # Seg Neutrophils % Seg Neuts % (Manual) Lymphocytes % (Manual) Monocytes % (Manual) Seg Neutrophils # Seg Neutrophils # Man Lymphocytes # (Manual) Monocytes # (Manual) Heparin Anti-Xa Level POC ABG pH POC ABG pCO2 POC ABG pO2 Sodium Potassium Chloride Carbon Dioxide BUN Creatinine Glucose POC Glucose 149 H 168 H 229 H ALT Alkaline Phosphatase Total Creatine Kinase CK-MB (CK-2) CK-MB (CK-2) Rel Index Troponin T C-Reactive Protein Albumin 03/23/17 03/23/17 03/23/17 05:00 05:00 05:21 WBC 14.0 H RBC 3.09 L Hgb 8.5 L Hct 27.0 L RDW 17.8 H Lymph % (Auto) [place] % (Auto) Lymph # [place] # Seg Neutrophils % Seg Neuts % (Manual) Lymphocytes % (Manual) 11.0 L Monocytes % (Manual) 13.0 H Seg Neutrophils # Seg Neutrophils # Man 9.2 H Lymphocytes # (Manual) Monocytes # (Manual) 1.8 H Heparin Anti-Xa Level POC ABG pH POC ABG pCO2 POC ABG pO2 Sodium Potassium Chloride 94.5 L Carbon Dioxide BUN 76 H Creatinine 7.5 H Glucose 192 H POC Glucose 195 H ALT Alkaline Phosphatase Total Creatine Kinase CK-MB (CK-2) CK-MB (CK-2) Rel Index Troponin T C-Reactive Protein Albumin 03/23/17 03/23/17 03/23/17 12:15 17:47 23:27 WBC RBC Hgb Hct RDW Lymph % (Auto) [place] % (Auto) Lymph # [place] # Seg Neutrophils % Seg Neuts % (Manual) Lymphocytes % (Manual) Monocytes % (Manual) Seg Neutrophils # Seg Neutrophils # Man Lymphocytes # (Manual) Monocytes # (Manual) Heparin Anti-Xa Level POC ABG pH POC ABG pCO2 POC ABG pO2 Sodium Potassium Chloride Carbon Dioxide BUN Creatinine Glucose POC Glucose 162 H 137 H 221 H ALT Alkaline Phosphatase Total Creatine Kinase CK-MB (CK-2) CK-MB (CK-2) Rel Index Troponin T C-Reactive Protein Albumin 03/24/17 03/24/17 03/24/17 05:42 08:49 08:49 WBC RBC 2.99 L Hgb 8.5 L Hct 25.9 L RDW 18.1 H Lymph % (Auto) [place] % (Auto) Lymph # [place] # Seg Neutrophils % Seg Neuts % (Manual) 83.0 H Lymphocytes % (Manual) 6.0 L Monocytes % (Manual) Seg Neutrophils # Seg Neutrophils # Man 8.5 H Lymphocytes # (Manual) 0.6 L Monocytes # (Manual) Heparin Anti-Xa Level POC ABG pH POC ABG pCO2 POC ABG pO2 Sodium Potassium Chloride 95.4 L Carbon Dioxide BUN 108 H Creatinine 9.4 H Glucose 203 H POC Glucose 216 H ALT Alkaline Phosphatase Total Creatine Kinase CK-MB (CK-2) CK-MB (CK-2) Rel Index Troponin T C-Reactive Protein Albumin 03/24/17 03/24/17 03/24/17 11:21 17:32 23:37 WBC RBC Hgb Hct RDW Lymph % (Auto) [place] % (Auto) Lymph # [place] # Seg Neutrophils % Seg Neuts % (Manual) Lymphocytes % (Manual) Monocytes % (Manual) Seg Neutrophils # Seg Neutrophils # Man Lymphocytes # (Manual) Monocytes # (Manual) Heparin Anti-Xa Level POC ABG pH POC ABG pCO2 POC ABG pO2 Sodium Potassium Chloride Carbon Dioxide BUN Creatinine Glucose POC Glucose 185 H 138 H 218 H ALT Alkaline Phosphatase Total Creatine Kinase CK-MB (CK-2) CK-MB (CK-2) Rel Index Troponin T C-Reactive Protein Albumin 03/25/17 03/25/17 03/25/17 04:38 04:38 05:24 WBC RBC 3.27 L Hgb 9.3 L Hct 29.8 L RDW 18.4 H Lymph % (Auto) [place] % (Auto) Lymph # [place] # Seg Neutrophils % Seg Neuts % (Manual) 78.0 H Lymphocytes % (Manual) 10.0 L Monocytes % (Manual) 9.0 H Seg Neutrophils # Seg Neutrophils # Man Lymphocytes # (Manual) 0.8 L Monocytes # (Manual) Heparin Anti-Xa Level POC ABG pH POC ABG pCO2 POC ABG pO2 Sodium 136 L Potassium Chloride 92.5 L Carbon Dioxide 17 L BUN 124 H Creatinine 9.7 H Glucose 217 H POC Glucose 211 H ALT Alkaline Phosphatase Total Creatine Kinase CK-MB (CK-2) CK-MB (CK-2) Rel Index Troponin T C-Reactive Protein Albumin Allied health notes reviewed: RT
--- NOTE | 2017-03-25 11:38 | Progress Note ---
Assessment and Plan Assessment and plan: 66-year-old female presents to the emergency department complaining of chest pain after dialysis. While in triage, the patient went unresponsive, and without a pulse, No palpable pulses were identified. Patient was placed on a house decorator and ventricular fibrillation was noted. Patient was defibrillated a single time with 200 J. She received CPR protocol, was intubated and had ROSC, and she was then taken to the ICU. Postarrest ECG was consistent with anterior STEMI. Code STEMI was activated, she was taken to director of labor relations and received angiogram ; stent x 2 in LAD noted to be patent, but had distal LAD spasm Cardiovascular cardiac arrest; Vfib, STEMI, ACS, Distal LAD spasm, cardiogenic shock Cardiology input appreciated, status post cath with patent stents she was rx with amio drip, received heparin ggt x 24 hours, received Dopamine drip for Cardiogenic shock and hypotension,now improved; currently on Lopressor for rate control and now hypertensive -Hypertension. continue antihypertensive medications -Hyperlipidemia- Continue statin therapy Pulmonary Acute hypoxic respiratory failure, mech vent >96 hours Status post extubation 03/24/17, continue oxygen supplementation and noninvasive positive pressure ventilation as needed Speech therapy evaluation, PT evaluation GI Nausea/Vomiting- Start on zofran, now resolved Dysphagia; aspiration with all consistencies; ST input appreicated, continue speech therapy Toxic metabolic encephalopathy EEG was reviewed, seizure is unlikely. encephalopathy most likely due to acute illness, cardiogenic shock, cardiac arrest and IV sedation now improved, Neurology input appreciated ID Sepsis syndrome; ID consult appreciated, Continue current empiric therapy. Follow clinically for localizing issues., trachial aspirate cx, NGTD WBC count is slowly downtrending, continue abx till 03/29/17 RENAL/FEN End stage renal disease on hemodialysis. Nephrology following. Continue hemodialysis Hyperkalemia-corrected with dialysis Complete immobility due to frailty PT consult, patient will need SNIF placement Diabetes mellitus type 2. Accu-Cheks and sliding scale insulin. Morbid obesity- counselling once extubated. Anemia of CKD. Follow H&H. Transfuse as necessary. History of breast cancer. DVT/GI PROPHY heparin subq, Discussed plan with family and Fruit Rancher and correctional nurse The high probability of a clinically significant, sudden or life threatening deterioration of the cardiac, pulmonary, Neurology system(s) required my full and direct attention, intervention and personal management. The aggregate critical care time was [35] minutes. This time is in addition to time spent performing reported procedures but includes the following: [x] Data Review and interpretation [x] Patient assessment and monitoring of vital signs [x] Documentation [x] Medication orders and management History Interval history: , she admits some throat discomfort, and feels ok, denies sob, feels very weak and tired Hospitalist Physical - Physical exam Narrative exam: General: Patient appears well in no distress, HEENT: MMM, EOMI, weak voice cardiac: S1-S2 heard lungs: clear to auscultation, abdomen: soft, nontender, nondistended bowel sounds positive extremities: no edema clubbing or cyanosis Skin: no rash or lesion Neuro: AAOx3, moves all extremities, obeys commands, generalized weakness - Constitutional Vitals: Temp Pulse Resp BP Pulse Ox 97.7 F 71 23 141/63 94 03/25/17 09:45 03/25/17 11:30 03/25/17 10:00 03/25/17 11:30 03/25/17 10:00 General appearance: Present: no acute distress, obese Results - Labs CBC & Chem 7: 03/25/17 04:38 03/25/17 04:38 Labs: Laboratory Last Values WBC 8.4 K/mm3 (4.5-11.0) 03/25/17 04:38 RBC 3.27 M/mm3 (3.65-5.03) L 03/25/17 04:38 Hgb 9.3 gm/dl (10.1-14.3) L 03/25/17 04:38 Hct 29.8 % (30.3-42.9) L 03/25/17 04:38 MCV 91 fl (79-97) D 03/25/17 04:38 MCH 28 pg (28-32) 03/25/17 04:38 MCHC 31 % (30-34) 03/25/17 04:38 RDW 18.4 % (13.2-15.2) H 03/25/17 04:38 Plt Count 148 K/mm3 (140-440) 03/25/17 04:38 Lymph % (Auto) Manager Winter 03/25/17 04:38 [place] % (Auto) Manager Winter 03/25/17 04:38 Eos % (Auto) Manager Winter 03/25/17 04:38 Baso % (Auto) Manager Winter 03/25/17 04:38 Lymph # Manager Winter 03/25/17 04:38 [place] # Manager Winter 03/25/17 04:38 Eos # Manager Winter 03/25/17 04:38 Baso # Manager Winter 03/25/17 04:38 Add Manual Diff Complete 03/25/17 04:38 Total Counted 100 03/25/17 04:38 Seg Neutrophils % Manager Winter 03/25/17 04:38 Seg Neuts % (Manual) 78.0 % (40.0-70.0) H 03/25/17 04:38 Band Neutrophils % 0 % 03/25/17 04:38 Lymphocytes % (Manual) 10.0 % (13.4-35.0) L 03/25/17 04:38 Reactive Lymphs % (Man) 0 % 03/25/17 04:38 Monocytes % (Manual) 9.0 % (0.0-7.3) H 03/25/17 04:38 Eosinophils % (Manual) 1.0 % (0.0-4.3) 03/25/17 04:38 Basophils % (Manual) 0 % (0.0-1.8) 03/25/17 04:38 Metamyelocytes % 1.0 % 03/25/17 04:38 Myelocytes % 1.0 % 03/25/17 04:38 Promyelocytes % 0 % 03/25/17 04:38 Blast Cells % 0 % 03/25/17 04:38 Nucleated RBC % Not Reportable 03/25/17 04:38 Seg Neutrophils # Manager Winter 03/25/17 04:38 Seg Neutrophils # Man 6.6 K/mm3 (1.8-7.7) 03/25/17 04:38 Band Neutrophils # 0.0 K/mm3 03/25/17 04:38 Lymphocytes # (Manual) 0.8 K/mm3 (1.2-5.4) L 03/25/17 04:38 Abs React Lymphs (Man) 0.0 K/mm3 03/25/17 04:38 Monocytes # (Manual) 0.8 K/mm3 (0.0-0.8) 03/25/17 04:38 Eosinophils # (Manual) 0.1 K/mm3 (0.0-0.4) 03/25/17 04:38 Basophils # (Manual) 0.0 K/mm3 (0.0-0.1) 03/25/17 04:38 Metamyelocytes # 0.1 K/mm3 03/25/17 04:38 Myelocytes # 0.1 K/mm3 03/25/17 04:38 Promyelocytes # 0.0 K/mm3 03/25/17 04:38 Blast Cells # 0.0 K/mm3 03/25/17 04:38 WBC Morphology Not Reportable 03/25/17 04:38 Hypersegmented Neuts Not Reportable 03/25/17 04:38 Hyposegmented Neuts Not Reportable 03/25/17 04:38 Hypogranular Neuts Not Reportable 03/25/17 04:38 Smudge Cells Not Reportable 03/25/17 04:38 Toxic Granulation Not Reportable 03/25/17 04:38 Toxic Vacuolation Not Reportable 03/25/17 04:38 Dohle Bodies Not Reportable 03/25/17 04:38 Pelger-Huet Anomaly Not Reportable 03/25/17 04:38 Tunde Rods Not Reportable 03/25/17 04:38 Platelet Estimate Consistent w auto 03/25/17 04:38 Clumped Platelets Not Reportable 03/25/17 04:38 Plt Clumps, EDTA Not Reportable 03/25/17 04:38 Large Platelets Not Reportable 03/25/17 04:38 Giant Platelets Not Reportable 03/25/17 04:38 Platelet Satelliting Not Reportable 03/25/17 04:38 Plt Morphology Comment Not Reportable 03/25/17 04:38 RBC Morphology Not Reportable 03/25/17 04:38 Dimorphic RBCs Not Reportable 03/25/17 04:38 Polychromasia Not Reportable 03/25/17 04:38 Hypochromasia Not Reportable 03/25/17 04:38 Poikilocytosis Not Reportable 03/25/17 04:38 Anisocytosis 1+ 03/25/17 04:38 Microcytosis Not Reportable 03/25/17 04:38 Macrocytosis Few 03/25/17 04:38 Spherocytes Not Reportable 03/25/17 04:38 Pappenheimer Bodies Not Reportable 03/25/17 04:38 Sickle Cells Not Reportable 03/25/17 04:38 Target Cells Not Reportable 03/25/17 04:38 Tear Drop Cells Not Reportable 03/25/17 04:38 Ovalocytes Not Reportable 03/25/17 04:38 Helmet Cells Not Reportable 03/25/17 04:38 [place] Bodies Not Reportable 03/25/17 04:38 [place] Rings Not Reportable 03/25/17 04:38 [place] Cells Not Reportable 03/25/17 04:38 Bite Cells Not Reportable 03/25/17 04:38 Crenated Cell Not Reportable 03/25/17 04:38 Elliptocytes Not Reportable 03/25/17 04:38 Acanthocytes (Spur) Not Reportable 03/25/17 04:38 Rouleaux Not Reportable 03/25/17 04:38 Hemoglobin C Crystals Not Reportable 03/25/17 04:38 Schistocytes Not Reportable 03/25/17 04:38 Malaria parasites Not Reportable 03/25/17 04:38 [place] Bodies Not Reportable 03/25/17 04:38 Hem Pathologist Commnt No 03/25/17 04:38 PT 13.4 Sec. (12.2-14.9) 03/16/17 11:07 INR 1.03 (0.87-1.13) 03/16/17 11:07 APTT 24.1 Sec. (24.2-36.6) L 03/16/17 11:07 Activated Clotting Time 125 (74-137) 03/17/17 08:23 Heparin Anti-Xa Level < 0.10 U.I./ml (0.3-0.7) L 03/17/17 21:12 POC ABG pH 7.388 (7.35-7.45) 03/23/17 12:18 POC ABG pCO2 44.0 (35-45) 03/23/17 12:18 POC ABG pO2 87 (80-105) 03/23/17 12:18 POC ABG HCO3 26.5 03/23/17 12:18 POC ABG Total CO2 28 03/23/17 12:18 POC ABG O2 Sat 96 03/23/17 12:18 POC ABG Base Excess 2 03/23/17 12:18 FiO2 30 % 03/23/17 12:18 Sodium 136 mmol/L (137-145) L 03/25/17 04:38 Potassium 4.4 mmol/L (3.6-5.0) 03/25/17 04:38 Chloride 92.5 mmol/L (98-107) L 03/25/17 04:38 Carbon Dioxide 17 mmol/L (22-30) L 03/25/17 04:38 Anion Gap 31 mmol/L 03/25/17 04:38 BUN 124 mg/dL (7-17) H 03/25/17 04:38 Creatinine 9.7 mg/dL (0.7-1.2) H 03/25/17 04:38 Estimated GFR 5 ml/min 03/25/17 04:38 BUN/Creatinine Ratio 12.78 % 03/25/17 04:38 Glucose 217 mg/dL (65-100) H 03/25/17 04:38 POC Glucose 211 (70-105) H 03/25/17 05:24 Lactic Acid 1.40 mmol/L (0.7-2.0) 03/17/17 19:50 Calcium 9.4 mg/dL (8.4-10.2) 03/25/17 04:38 Total Bilirubin 0.50 mg/dL (0.1-1.2) 03/21/17 07:45 AST 23 units/L (5-40) 03/21/17 07:45 ALT 40 units/L (7-56) 03/21/17 07:45 Alkaline Phosphatase 244 units/L (35-129) H 03/21/17 07:45 Ammonia 38.0 umol/L (25-60) 03/18/17 19:02 Total Creatine Kinase 282 units/L (30-135) H 03/16/17 16:36 CK-MB (CK-2) 24.2 ng/mL (0.0-4.0) H 03/16/17 16:36 CK-MB (CK-2) Rel Index 8.5 (0-4) H 03/16/17 16:36 Troponin T 0.656 ng/mL (0.00-0.029) H* D 03/16/17 16:36 C-Reactive Protein 33.90 mg/dL (0.00-1.30) H 03/17/17 17:15 Total Protein 7.3 g/dL (6.3-8.2) 03/21/17 07:45 Albumin 2.8 g/dL (3.9-5) L 03/21/17 07:45 Albumin/Globulin Ratio 0.6 % 03/21/17 07:45 Triglycerides 134 mg/dL (2-149) 03/16/17 11:07 Cholesterol 228 mg/dL (50-199) H 03/16/17 11:07 LDL Cholesterol Direct 165 mg/dL (50-130) H 03/16/17 11:07 HDL Cholesterol 37 mg/dL (40-59) L 03/16/17 11:07 Cholesterol/HDL Ratio 6.16 % 03/16/17 11:07 TSH 0.746 mlU/mL (0.270-4.200) 03/18/17 19:02 Random Vancomycin 20.9 ug/mL (0-40.0) 03/22/17 07:40 Hepatitis A IgM Ab Non-reactive (NonReactive) 03/19/17 04:31 Hep Bs Antigen Non-reactive (Negative) 03/19/17 04:31 Hep B Core IgM Ab Non-reactive (NonReactive) 03/19/17 04:31 Hepatitis C Antibody Non-reactive (NonReactive) 03/19/17 04:31 Blood Type A POSITIVE 03/16/17 16:36 Antibody Screen TNR 03/16/17 16:36 CLAIR Antibody Screen Negative 03/16/17 16:36
[2017-03-25] MEDS: HEPARIN SUB-Q SCH (11:45)
[2017-03-25] MEDS: PROCRIT IV PRN (11:48)
[2017-03-25] MEDS ORDERED: PNEUMOVAX 23 IM ONE (12:00)
[2017-03-25] MEDS: PEPCID IV SCH ×2 (15:09→22:24)
[2017-03-25] MEDS: PLAVIX PO SCH (15:10)
[2017-03-25] MEDS: MAXIPIME 0.5 GM in NACL 0.9% 100 ML IV SCH (15:11)
[2017-03-25] MEDS ORDERED: PANCREAZE DR 10,500 UNIT FEEDTUBE PRN (18:00)
[2017-03-25] MEDS ORDERED: SIMPLE SYRUP FEEDTUBE PRN ×2 (18:00)
[2017-03-25] MEDS ORDERED: SODIUM BICARBONATE FEEDTUBE PRN (18:00)
[2017-03-25 20:42] LABS: ISTAT Base Excess 3; ISTAT HCO3 26.2; ISTAT PCO2 36.2 (35-45); ISTAT PH 7.469 (7.35-7.45); ISTAT PO2 69 (80-105); ISTAT SO2 95; ISTAT TCO2 27
[2017-03-26] MEDS: DUONEB *Not for PRN Use IH SCH ×4 (02:13→19:49)
[2017-03-26] MEDS: LOPRESSOR PO SCH ×4 (04:06→21:14)
[2017-03-26 06:38] LABS: BUN/Creatinine Ratio 12.12; Chloride 91.6 mmol/L (98-107)
[2017-03-26 06:40] LABS: Potassium 4.9 mmol/L (3.6-5.0)
--- NOTE | 2017-03-26 08:22 | Progress Note ---
Assessment and Plan - Patient Problems (1) Sepsis syndrome Current Visit: Yes Status: Acute Plan to address problem: Stable on current therapy. Continue empirically through March 29. I will sign off. Please call again if there are additional questions or concerns. Subjective Date of service: 03/26/17 Principal diagnosis: Acute Hypoxemic Resp Failure; STEMI Interval history: Remains in ICU. Afebrile for > 48 hours. No new events. Objective - Constitutional Vitals: Vital Signs Temp Pulse Resp BP Pulse Ox 99.6 F 72 30 H 143/55 98 03/26/17 04:00 03/26/17 08:00 03/26/17 08:00 03/26/17 08:00 03/26/17 08:00 Temperature -Last 24 Hours Temperature 99.6 F Temperature 99.5 F Temperature 98.9 F Temperature 98.6 F Temperature 100.3 F Temperature 100.3 F Temperature 97.7 F General appearance: Present: no acute distress, obese - EENT Eyes: no conjunctival injection - Neck Neck: supple - Respiratory Respiratory effort: normal Respiratory: bilateral: diminished, negative: rales, rhonchi - Cardiovascular Rhythm: regular Heart Sounds: Present: S1 & S2 Extremities: No edema - Gastrointestinal General gastrointestinal: Present: soft, non-distended, normal bowel sounds - Integumentary Integumentary: no jaundice, no rash - Neurologic Neurologic: no focal deficits - Labs CBC & Chem 7: 03/25/17 04:38 03/26/17 05:59 Labs: Abnormal lab results 03/25/17 03/25/17 03/25/17 Range/Units 11:53 17:15 20:12 POC ABG pH 7.469 H (7.35-7.45) POC ABG pO2 69 L (80-105) Sodium (137-145) mmol/L Chloride (98-107) mmol/L Carbon Dioxide (22-30) mmol/L BUN (7-17) mg/dL Creatinine (0.7-1.2) mg/dL Glucose (65-100) mg/dL POC Glucose 165 H 173 H (70-105) 03/25/17 03/26/17 03/26/17 Range/Units 23:32 05:59 06:03 POC ABG pH (7.35-7.45) POC ABG pO2 (80-105) Sodium 136 L (137-145) mmol/L Chloride 91.6 L (98-107) mmol/L Carbon Dioxide 20 L (22-30) mmol/L BUN 97 H (7-17) mg/dL Creatinine 8.0 H (0.7-1.2) mg/dL Glucose 239 H (65-100) mg/dL POC Glucose 231 H 214 H (70-105) Microbiology 03/21/17 Unknown Tracheal Aspirate Sputum Culture - Final 03/21/17 08:47 Tracheal Aspirate Sputum Culture - Final 03/16/17 21:51 Peripheral/Venous Blood Culture - Final NO GROWTH AFTER 5 DAYS 03/16/17 21:43 Peripheral/Venous Blood Culture - Final NO GROWTH AFTER 5 DAYS
--- NOTE | 2017-03-26 09:46 | Progress Note ---
Subjective Principal diagnosis: Acute Hypoxemic Resp Failure; STEMI Interval history: Patient was seen today for follow-up and multiple renal-related issues She is currently resting comfortably discussed with the ICU nurse Events of 24 hours vitals labs intake output medications were reviewed She tolerated hemodialysis treatment well yesterday and denies any acute complaints Social history: Reviewed Family history: Reviewed Allergies: Reviewed Physical examination Vitals reviewed HEENT: Mild pallor no icterus Neck: Supple no JVD Chest: Clear to auscultation Heart: Regular rate and rhythm Abdomen soft nontender no renal bruit no CVA tenderness Extremity: Mild edema right skin Assessment and plan End-stage renal disease patient is currently on maintenance hemodialysis She will continue with hemodialysis on Saturday and Saturday Her dialysis time is actually 4 hours we may need to change her potassium to 3 Anemia in end-stage renal disease to monitor Respiratory status appears to be more stable today Secondary hyperparathyroidism to follow Malnutrition risk is high and dialysis patient please consider high-protein diet 1.5 g per KG body weight We'll consider hemodialysis tomorrow morning as she appears to be doing better We'll continue to follow and make recommendation from renal standpoint Objective - Vital Signs Vital signs: Vital Signs - 12hr 03/25/17 03/25/17 03/25/17 22:00 22:25 23:00 Temperature Pulse Rate 67 74 69 Pulse Rate [ Anterior Bilateral Throughout] Pulse Rate [ Right Dorsalis Pedis] Respiratory 25 H 31 H Rate Respiratory Rate [Anterior Bilateral Throughout] Blood Pressure 140/63 140/63 152/71 O2 Sat by Pulse 97 97 Oximetry 03/25/17 03/26/17 03/26/17 23:49 00:00 00:01 Temperature 99.5 F Pulse Rate 67 68 Pulse Rate [ Anterior Bilateral Throughout] Pulse Rate [ Right Dorsalis Pedis] Respiratory 29 H 26 H Rate Respiratory Rate [Anterior Bilateral Throughout] Blood Pressure 152/71 122/56 O2 Sat by Pulse 100 99 Oximetry 03/26/17 03/26/17 03/26/17 01:00 02:00 02:14 Temperature Pulse Rate 69 67 67 Pulse Rate [ 68 Anterior Bilateral Throughout] Pulse Rate [ Right Dorsalis Pedis] Respiratory 25 H 24 23 Rate Respiratory 27 H Rate [Anterior Bilateral Throughout] Blood Pressure 147/68 149/62 149/62 O2 Sat by Pulse 99 100 100 Oximetry 03/26/17 03/26/17 03/26/17 03:00 04:00 04:01 Temperature 99.6 F Pulse Rate 73 68 Pulse Rate [ Anterior Bilateral Throughout] Pulse Rate [ 72 Right Dorsalis Pedis] Respiratory 29 H 24 24 Rate Respiratory Rate [Anterior Bilateral Throughout] Blood Pressure 152/62 156/60 O2 Sat by Pulse 99 94 99 Oximetry 03/26/17 03/26/17 03/26/17 04:06 05:00 06:00 Temperature Pulse Rate 71 68 66 Pulse Rate [ Anterior Bilateral Throughout] Pulse Rate [ Right Dorsalis Pedis] Respiratory 25 H 21 Rate Respiratory Rate [Anterior Bilateral Throughout] Blood Pressure 152/62 142/43 149/66 O2 Sat by Pulse 100 97 Oximetry 03/26/17 03/26/17 03/26/17 07:01 07:44 07:50 Temperature Pulse Rate 70 Pulse Rate [ 70 72 Anterior Bilateral Throughout] Pulse Rate [ Right Dorsalis Pedis] Respiratory 27 H Rate Respiratory 20 18 Rate [Anterior Bilateral Throughout] Blood Pressure 152/65 O2 Sat by Pulse 100 96 Oximetry 03/26/17 08:00 Temperature 99.9 F H Pulse Rate 72 Pulse Rate [ Anterior Bilateral Throughout] Pulse Rate [ Right Dorsalis Pedis] Respiratory 30 H Rate Respiratory Rate [Anterior Bilateral Throughout] Blood Pressure 143/55 O2 Sat by Pulse 97 Oximetry - Lab 03/27/17 04:00 03/27/17 04:00 Most recent lab results Calcium 10.0 mg/dL (8.4-10.2) 03/26/17 05:59
[2017-03-26] MEDS: PLAVIX PO SCH (09:49)
[2017-03-26] MEDS: PEPCID PO SCH (09:49)
[2017-03-26] MEDS: HEPARIN SUB-Q SCH ×2 (09:50→21:15)
[2017-03-26] MEDS: REGLAN IV SCH ×3 (09:51→21:14)
[2017-03-26] MEDS: FLAGYL 500 MG/100 ML 500 MG/100 ML BAG IV SCH ×3 (09:56→23:45)
[2017-03-26] MEDS: MAXIPIME 0.5 GM in NACL 0.9% 100 ML IV SCH (10:05)
--- NOTE | 2017-03-26 10:46 | Progress Note ---
Assessment and Plan Currently stable cardiac status. Cont present cardiac management. For MRI brain today. The patient has been seen in conjunction with Dr. García who agrees with the assessment and plan of care. - Patient Problems (1) Acute hypoxemic respiratory failure Current Visit: Yes Status: Resolved (2) Cardiac arrest Current Visit: Yes Status: Acute (3) Cardiac arrest due to underlying cardiac condition Current Visit: Yes Status: Acute (4) ESRD on dialysis Current Visit: Yes Status: Acute (5) Obesity (BMI 30-39.9) Current Visit: Yes Status: Chronic (6) STEMI (ST elevation myocardial infarction) Current Visit: Yes Status: Acute Qualifiers: Involved coronary artery: unspecified coronary artery Qualified Code(s): I21.3 - ST elevation (STEMI) myocardial infarction of unspecified site (7) Seizure Current Visit: Yes Status: Acute (8) Sepsis syndrome Current Visit: Yes Status: Acute (9) Aortic stenosis Current Visit: Yes Status: Chronic Qualifiers: Cardiac valve disease etiology: C (10) Pulmonary HTN Current Visit: Yes Status: Chronic (11) CVA (cerebral vascular accident) Current Visit: No Status: Acute Qualifiers: CVA mechanism: C Precerebral and cerebral artery: P Laterality of affected vessel: L (12) Kidney stone Current Visit: No Status: Chronic (13) Rectal bleed Current Visit: No Status: Acute (14) UTI (urinary tract infection) Current Visit: No Status: Acute Qualifiers: Urinary tract infection type: U Hematuria presence: H Indwelling urinary catheter type: I Encounter type: E (15) Hypertension Current Visit: No Status: Chronic Qualifiers: Hypertension type: H (16) Type 2 diabetes mellitus Current Visit: No Status: Chronic Qualifiers: Diabetes mellitus complication status: D Diabetes mellitus complication detail: D Diabetic retinopathy severity: D Proliferative retinopathy type: P Diabetes mellitus macular edema: D Diabetes mellitus exterminator termite insulin use : D Laterality: L Chronic kidney disease stage: C Subjective Date of service: 03/26/17 Principal diagnosis: Acute Hypoxemic Resp Failure; STEMI Interval history: Pt resting in bed, NAD. Nods head appropriately to questions. No complaints. VSS. Family at bedside. Objective Last Vital Signs Temp 99.9 F H 03/26/17 08:00 Pulse 73 03/26/17 09:57 Resp 30 H 03/26/17 08:00 BP 132/52 03/26/17 09:57 Pulse Ox 98 03/26/17 08:00 - Physical Examination General: Appears Well, No Apparent Distress HEENT: Positive: Normocephaly, Mucus Membranes Moist Neck: Positive: neck supple, trachea midline Cardiac: Positive: Reg Rate and Rhythm, S1/S2 Lungs: Positive: Rhonchi Neuro: Positive: Grossly Intact Abdomen: Positive: Soft, Active Bowel Sounds Skin: Negative: Clear, Rash Musculoskeletal: No Fluid Collection, No Pain, Normal Range of Motion Extremities: Present: upper extr. pulses, lower extr. pulses. Absent: edema - Labs and Meds Comprehensive Metabolic Panel 03/26/17 Range/Units 05:59 Sodium 136 L (137-145) mmol/L Potassium 4.9 (3.6-5.0) mmol/L Chloride 91.6 L (98-107) mmol/L Carbon Dioxide 20 L (22-30) mmol/L BUN 97 H (7-17) mg/dL Creatinine 8.0 H (0.7-1.2) mg/dL Glucose 239 H (65-100) mg/dL Calcium 10.0 (8.4-10.2) mg/dL - Imaging and Cardiology EKG: report reviewed, image reviewed Echo: report reviewed - Telemetry EKG Rhythm: Sinus Rhythm - EKG Sinus rhythms and dysrhythmias: sinus rhythm Myocardial infarction: inferior OK (acute or rec, anterior OK (acute or rec - Allied health notes Allied health notes reviewed: RT
--- NOTE | 2017-03-26 11:06 | Progress Note ---
Assessment and Plan Assessment and plan: 66-year-old female presents to the emergency department complaining of chest pain after dialysis. While in triage, the patient went unresponsive, and without a pulse, No palpable pulses were identified. Patient was placed on a telemetry monitor and ventricular fibrillation was noted. Patient was defibrillated a single time with 200 J. She received CPR protocol, was intubated and had ROSC, and she was then taken to the ICU. Postarrest ECG was consistent with anterior STEMI. Code STEMI was activated, she was taken to confectionery laboratory manager and received angiogram ; stent x 2 in LAD noted to be patent, but had distal LAD spasm Cardiovascular cardiac arrest; Vfib, STEMI, ACS, Distal LAD spasm, cardiogenic shock Cardiology input appreciated, status post cath with patent stents she was rx with amio drip, received heparin ggt x 24 hours, received Dopamine drip for Cardiogenic shock and hypotension,now improved; currently on Lopressor for rate control and now hypertensive -Hypertension. continue antihypertensive medications -Hyperlipidemia- Continue statin therapy Pulmonary Acute hypoxic respiratory failure, mech vent >96 hours Status post extubation 03/24/17, continue oxygen supplementation and noninvasive positive pressure ventilation as needed Speech therapy evaluation, PT evaluation GI Nausea/Vomiting- Start on zofran, now resolved Dysphagia; aspiration with all consistencies; ST input appreicated, continue speech therapy Toxic metabolic encephalopathy EEG was reviewed, seizure is unlikely. encephalopathy most likely due to acute illness, cardiogenic shock, cardiac arrest and IV sedation now improved, Neurology input appreciated ID Sepsis syndrome; ID consult appreciated, Continue current empiric therapy. Follow clinically for localizing issues., trachial aspirate cx, NGTD WBC count is slowly downtrending, continue abx till 03/29/17 RENAL/FEN End stage renal disease on hemodialysis. Nephrology following. Continue hemodialysis Hyperkalemia-corrected with dialysis Complete immobility due to frailty PT consult, patient will need SNIF placement Severe malnutrition provider contracting consultant consult appreciated, continue tube feeds, continue speech therapy for dysphagia Diabetes mellitus type 2. Accu-Cheks and sliding scale insulin. Morbid obesity- counselling once extubated. Anemia of CKD. Follow H&H. Transfuse as necessary. History of breast cancer. DVT/GI PROPHY heparin subq, Discussed plan with family and Gear Finisher , Environmental Health Manager and aircraft electrician The high probability of a clinically significant, sudden or life threatening deterioration of the cardiac, pulmonary, Neurology system(s) required my full and direct attention, intervention and personal management. The aggregate critical care time was [35] minutes. This time is in addition to time spent performing reported procedures but includes the following: [x] Data Review and interpretation [x] Patient assessment and monitoring of vital signs [x] Documentation [x] Medication orders and management History Interval history: , she admits some throat discomfort, and feels ok, denies sob, feels very weak and tired Hospitalist Physical - Physical exam Narrative exam: General: Patient appears well in no distress, HEENT: MMM, EOMI, weak voice cardiac: S1-S2 heard lungs: clear to auscultation, abdomen: soft, nontender, nondistended bowel sounds positive extremities: no edema clubbing or cyanosis Skin: no rash or lesion Neuro: AAOx3, moves all extremities, obeys commands, generalized weakness - Constitutional Vitals: Temp Pulse Resp BP Pulse Ox 99.9 F H 73 30 H 132/52 98 03/26/17 08:00 03/26/17 09:57 03/26/17 08:00 03/26/17 09:57 03/26/17 08:00 General appearance: Present: no acute distress, obese Results - Labs CBC & Chem 7: 03/25/17 04:38 03/26/17 05:59 Labs: Laboratory Last Values WBC 8.4 K/mm3 (4.5-11.0) 03/25/17 04:38 RBC 3.27 M/mm3 (3.65-5.03) L 03/25/17 04:38 Hgb 9.3 gm/dl (10.1-14.3) L 03/25/17 04:38 Hct 29.8 % (30.3-42.9) L 03/25/17 04:38 MCV 91 fl (79-97) D 03/25/17 04:38 MCH 28 pg (28-32) 03/25/17 04:38 MCHC 31 % (30-34) 03/25/17 04:38 RDW 18.4 % (13.2-15.2) H 03/25/17 04:38 Plt Count 148 K/mm3 (140-440) 03/25/17 04:38 Lymph % (Auto) Mental Telepathist 03/25/17 04:38 Simpson % (Auto) Mental Telepathist 03/25/17 04:38 Eos % (Auto) Mental Telepathist 03/25/17 04:38 Baso % (Auto) Mental Telepathist 03/25/17 04:38 Lymph # Mental Telepathist 03/25/17 04:38 Simpson # Mental Telepathist 03/25/17 04:38 Eos # Mental Telepathist 03/25/17 04:38 Baso # Mental Telepathist 03/25/17 04:38 Add Manual Diff Complete 03/25/17 04:38 Total Counted 100 03/25/17 04:38 Seg Neutrophils % Mental Telepathist 03/25/17 04:38 Seg Neuts % (Manual) 78.0 % (40.0-70.0) H 03/25/17 04:38 Band Neutrophils % 0 % 03/25/17 04:38 Lymphocytes % (Manual) 10.0 % (13.4-35.0) L 03/25/17 04:38 Reactive Lymphs % (Man) 0 % 03/25/17 04:38 Monocytes % (Manual) 9.0 % (0.0-7.3) H 03/25/17 04:38 Eosinophils % (Manual) 1.0 % (0.0-4.3) 03/25/17 04:38 Basophils % (Manual) 0 % (0.0-1.8) 03/25/17 04:38 Metamyelocytes % 1.0 % 03/25/17 04:38 Myelocytes % 1.0 % 03/25/17 04:38 Promyelocytes % 0 % 03/25/17 04:38 Blast Cells % 0 % 03/25/17 04:38 Nucleated RBC % Not Reportable 03/25/17 04:38 Seg Neutrophils # Mental Telepathist 03/25/17 04:38 Seg Neutrophils # Man 6.6 K/mm3 (1.8-7.7) 03/25/17 04:38 Band Neutrophils # 0.0 K/mm3 03/25/17 04:38 Lymphocytes # (Manual) 0.8 K/mm3 (1.2-5.4) L 03/25/17 04:38 Abs React Lymphs (Man) 0.0 K/mm3 03/25/17 04:38 Monocytes # (Manual) 0.8 K/mm3 (0.0-0.8) 03/25/17 04:38 Eosinophils # (Manual) 0.1 K/mm3 (0.0-0.4) 03/25/17 04:38 Basophils # (Manual) 0.0 K/mm3 (0.0-0.1) 03/25/17 04:38 Metamyelocytes # 0.1 K/mm3 03/25/17 04:38 Myelocytes # 0.1 K/mm3 03/25/17 04:38 Promyelocytes # 0.0 K/mm3 03/25/17 04:38 Blast Cells # 0.0 K/mm3 03/25/17 04:38 WBC Morphology Not Reportable 03/25/17 04:38 Hypersegmented Neuts Not Reportable 03/25/17 04:38 Hyposegmented Neuts Not Reportable 03/25/17 04:38 Hypogranular Neuts Not Reportable 03/25/17 04:38 Smudge Cells Not Reportable 03/25/17 04:38 Toxic Granulation Not Reportable 03/25/17 04:38 Toxic Vacuolation Not Reportable 03/25/17 04:38 Dohle Bodies Not Reportable 03/25/17 04:38 Pelger-Huet Anomaly Not Reportable 03/25/17 04:38 Tunde Rods Not Reportable 03/25/17 04:38 Platelet Estimate Consistent w auto 03/25/17 04:38 Clumped Platelets Not Reportable 03/25/17 04:38 Plt Clumps, EDTA Not Reportable 03/25/17 04:38 Large Platelets Not Reportable 03/25/17 04:38 Giant Platelets Not Reportable 03/25/17 04:38 Platelet Satelliting Not Reportable 03/25/17 04:38 Plt Morphology Comment Not Reportable 03/25/17 04:38 RBC Morphology Not Reportable 03/25/17 04:38 Dimorphic RBCs Not Reportable 03/25/17 04:38 Polychromasia Not Reportable 03/25/17 04:38 Hypochromasia Not Reportable 03/25/17 04:38 Poikilocytosis Not Reportable 03/25/17 04:38 Anisocytosis 1+ 03/25/17 04:38 Microcytosis Not Reportable 03/25/17 04:38 Macrocytosis Few 03/25/17 04:38 Spherocytes Not Reportable 03/25/17 04:38 Pappenheimer Bodies Not Reportable 03/25/17 04:38 Sickle Cells Not Reportable 03/25/17 04:38 Target Cells Not Reportable 03/25/17 04:38 Tear Drop Cells Not Reportable 03/25/17 04:38 Ovalocytes Not Reportable 03/25/17 04:38 Helmet Cells Not Reportable 03/25/17 04:38 Shukla-[place] Bodies Not Reportable 03/25/17 04:38 [place] Rings Not Reportable 03/25/17 04:38 Iona Cells Not Reportable 03/25/17 04:38 Bite Cells Not Reportable 03/25/17 04:38 Crenated Cell Not Reportable 03/25/17 04:38 Elliptocytes Not Reportable 03/25/17 04:38 Acanthocytes (Spur) Not Reportable 03/25/17 04:38 Rouleaux Not Reportable 03/25/17 04:38 Hemoglobin C Crystals Not Reportable 03/25/17 04:38 Schistocytes Not Reportable 03/25/17 04:38 Malaria parasites Not Reportable 03/25/17 04:38 Waylon Bodies Not Reportable 03/25/17 04:38 Hem Pathologist Commnt No 03/25/17 04:38 PT 13.4 Sec. (12.2-14.9) 03/16/17 11:07 INR 1.03 (0.87-1.13) 03/16/17 11:07 APTT 24.1 Sec. (24.2-36.6) L 03/16/17 11:07 Activated Clotting Time 125 (74-137) 03/17/17 08:23 Heparin Anti-Xa Level < 0.10 U.I./ml (0.3-0.7) L 03/17/17 21:12 POC ABG pH 7.469 (7.35-7.45) H 03/25/17 20:12 POC ABG pCO2 36.2 (35-45) 03/25/17 20:12 POC ABG pO2 69 (80-105) L 03/25/17 20:12 POC ABG HCO3 26.2 03/25/17 20:12 POC ABG Total CO2 27 03/25/17 20:12 POC ABG O2 Sat 95 03/25/17 20:12 POC ABG Base Excess 3 03/25/17 20:12 FiO2 30 % 03/25/17 20:12 Sodium 136 mmol/L (137-145) L 03/26/17 05:59 Potassium 4.9 mmol/L (3.6-5.0) 03/26/17 05:59 Chloride 91.6 mmol/L (98-107) L 03/26/17 05:59 Carbon Dioxide 20 mmol/L (22-30) L 03/26/17 05:59 Anion Gap 29 mmol/L 03/26/17 05:59 BUN 97 mg/dL (7-17) H 03/26/17 05:59 Creatinine 8.0 mg/dL (0.7-1.2) H 03/26/17 05:59 Estimated GFR 6 ml/min 03/26/17 05:59 BUN/Creatinine Ratio 12.12 % 03/26/17 05:59 Glucose 239 mg/dL (65-100) H 03/26/17 05:59 POC Glucose 214 (70-105) H 03/26/17 06:03 Lactic Acid 1.40 mmol/L (0.7-2.0) 03/17/17 19:50 Calcium 10.0 mg/dL (8.4-10.2) 03/26/17 05:59 Total Bilirubin 0.50 mg/dL (0.1-1.2) 03/21/17 07:45 AST 23 units/L (5-40) 03/21/17 07:45 ALT 40 units/L (7-56) 03/21/17 07:45 Alkaline Phosphatase 244 units/L (35-129) H 03/21/17 07:45 Ammonia 38.0 umol/L (25-60) 03/18/17 19:02 Total Creatine Kinase 282 units/L (30-135) H 03/16/17 16:36 CK-MB (CK-2) 24.2 ng/mL (0.0-4.0) H 03/16/17 16:36 CK-MB (CK-2) Rel Index 8.5 (0-4) H 03/16/17 16:36 Troponin T 0.656 ng/mL (0.00-0.029) H* D 03/16/17 16:36 C-Reactive Protein 33.90 mg/dL (0.00-1.30) H 03/17/17 17:15 Total Protein 7.3 g/dL (6.3-8.2) 03/21/17 07:45 Albumin 2.8 g/dL (3.9-5) L 03/21/17 07:45 Albumin/Globulin Ratio 0.6 % 03/21/17 07:45 Triglycerides 134 mg/dL (2-149) 03/16/17 11:07 Cholesterol 228 mg/dL (50-199) H 03/16/17 11:07 LDL Cholesterol Direct 165 mg/dL (50-130) H 03/16/17 11:07 HDL Cholesterol 37 mg/dL (40-59) L 03/16/17 11:07 Cholesterol/HDL Ratio 6.16 % 03/16/17 11:07 TSH 0.746 mlU/mL (0.270-4.200) 03/18/17 19:02 Random Vancomycin 20.9 ug/mL (0-40.0) 03/22/17 07:40 Hepatitis A IgM Ab Non-reactive (NonReactive) 03/19/17 04:31 Hep Bs Antigen Non-reactive (Negative) 03/19/17 04:31 Hep B Core IgM Ab Non-reactive (NonReactive) 03/19/17 04:31 Hepatitis C Antibody Non-reactive (NonReactive) 03/19/17 04:31 Blood Type A POSITIVE 03/16/17 16:36 Antibody Screen TNR 03/16/17 16:36 CLAIR Antibody Screen Negative 03/16/17 16:36
--- NOTE | 2017-03-26 11:13 | Progress Note ---
Assessment and Plan - Patient Problems (1) Acute hypoxemic respiratory failure Current Visit: Yes Status: Resolved Plan to address problem: - will continue aspiration precautions - will continue bronchodilators and pulmonary toilet - continue to wean oxygen for sats > 94% - continue to use BIPAP scheduled qhs and prn daytime - continue HD/UF for toxin and volume clearance - prn ABG's to evaluate for hypercapnia (2) ESRD on dialysis Current Visit: Yes Status: Acute Plan to address problem: - continue HD/UF per nephrology prescription - oliguric (3) Obesity (BMI 30-39.9) Current Visit: Yes Status: Chronic Plan to address problem: - weight loss - outpatient sleep clinic evaluation (4) Sepsis syndrome Current Visit: Yes Status: Acute Plan to address problem: - begin empiric AB's - get ID consultation - wean dopamine for MAP > 65mmHg - CRP significantly elevated however lactate WNL and cultures negative - complete empiric AB's dose (5) STEMI (ST elevation myocardial infarction) Current Visit: Yes Status: Acute Qualifiers: Involved coronary artery: unspecified coronary artery Qualified Code(s): I21.3 - ST elevation (STEMI) myocardial infarction of unspecified site Plan to address problem: - on SQ heparin now for VTE prophylaxis - clinically improved - on plavix - cardiology on case and managing (will defer otherwise) (6) Type 2 diabetes mellitus Current Visit: No Status: Chronic Qualifiers: Diabetes mellitus complication status: D Diabetes mellitus complication detail: D Diabetic retinopathy severity: D Proliferative retinopathy type: P Diabetes mellitus macular edema: D Diabetes mellitus senior living insulin use : D Laterality: L Chronic kidney disease stage: C Plan to address problem: - continue SSI for glycemic control (7) Discharge planning issues Current Visit: Yes Status: Acute Plan to address problem: - hopefully mental status improves and she can stay off BIPAP during the day at which point can contemplate telemetry transfer ...for now remains critically ill on life sustaining interventions including continuous NIV and at high risk for further deterioration including ....care plan discussed at length with daughter at bedside ...35' CCT Subjective Date of service: 03/26/17 Principal diagnosis: Acute Hypoxemic Resp Failure; STEMI Interval history: Seen and examined at bedside; 24 hour events reviewed; nursing and respiratory care staff consulted; no adverse overnight events reported to me; AMS only slightly improved; remains lethargic really; off BIPAP now and hopefully can stay off longer; required resumption after only a couple hours off yesterday Objective Vital Signs - 12hr 03/25/17 03/26/17 03/26/17 23:49 00:00 00:01 Temperature 99.5 F Pulse Rate 67 68 Pulse Rate [ Anterior Bilateral Throughout] Pulse Rate [ Right Dorsalis Pedis] Respiratory 29 H 26 H Rate Respiratory Rate [Anterior Bilateral Throughout] Blood Pressure 152/71 122/56 O2 Sat by Pulse 100 99 Oximetry 03/26/17 03/26/17 03/26/17 01:00 02:00 02:14 Temperature Pulse Rate 69 67 67 Pulse Rate [ 68 Anterior Bilateral Throughout] Pulse Rate [ Right Dorsalis Pedis] Respiratory 25 H 24 23 Rate Respiratory 27 H Rate [Anterior Bilateral Throughout] Blood Pressure 147/68 149/62 149/62 O2 Sat by Pulse 99 100 100 Oximetry 03/26/17 03/26/17 03/26/17 03:00 04:00 04:01 Temperature 99.6 F Pulse Rate 73 68 Pulse Rate [ Anterior Bilateral Throughout] Pulse Rate [ 72 Right Dorsalis Pedis] Respiratory 29 H 24 24 Rate Respiratory Rate [Anterior Bilateral Throughout] Blood Pressure 152/62 156/60 O2 Sat by Pulse 99 94 99 Oximetry 03/26/17 03/26/17 03/26/17 04:06 05:00 06:00 Temperature Pulse Rate 71 68 66 Pulse Rate [ Anterior Bilateral Throughout] Pulse Rate [ Right Dorsalis Pedis] Respiratory 25 H 21 Rate Respiratory Rate [Anterior Bilateral Throughout] Blood Pressure 152/62 142/43 149/66 O2 Sat by Pulse 100 97 Oximetry 03/26/17 03/26/17 03/26/17 07:01 07:44 07:50 Temperature Pulse Rate 70 Pulse Rate [ 70 72 Anterior Bilateral Throughout] Pulse Rate [ Right Dorsalis Pedis] Respiratory 27 H Rate Respiratory 20 18 Rate [Anterior Bilateral Throughout] Blood Pressure 152/65 O2 Sat by Pulse 100 96 Oximetry 03/26/17 03/26/17 08:00 09:57 Temperature 99.9 F H Pulse Rate 72 73 Pulse Rate [ Anterior Bilateral Throughout] Pulse Rate [ Right Dorsalis Pedis] Respiratory 30 H Rate Respiratory Rate [Anterior Bilateral Throughout] Blood Pressure 143/55 132/52 O2 Sat by Pulse 97 Oximetry Constitutional: no acute distress Eyes: non-icteric ENT: oropharynx moist Neck: supple, no lymphadenopathy, no JVD Effort: mildly labored Ascultation: Bilateral: diminished breath sounds, rales (scant in bases) Cardiovascular: regular rate and rhythm Gastrointestinal: normoactive bowel sounds, soft, non-tender, non-distended Integumentary: normal, other (Femoral CVC) Extremities: no cyanosis, no edema, pulses normal, no ischemia or petechiae Neurologic: normal mental status, non-focal exam (Moves all extremities, tracks my voice, attempts to vocalize in response to questions), unable to assess Psychiatric: other (unable to assess) CBC and BMP: 03/25/17 04:38 03/26/17 05:59 ABG, PT/INR, D-dimer: ABG POC ABG pH 7.469 (7.35-7.45) H 03/25/17 20:12 POC ABG pCO2 36.2 (35-45) 03/25/17 20:12 POC ABG pO2 69 (80-105) L 03/25/17 20:12 POC ABG HCO3 26.2 03/25/17 20:12 POC ABG Total CO2 27 03/25/17 20:12 POC ABG O2 Sat 95 03/25/17 20:12 PT/INR, D-dimer PT 13.4 Sec. (12.2-14.9) 03/16/17 11:07 INR 1.03 (0.87-1.13) 03/16/17 11:07 Abnormal lab findings: Abnormal Labs 03/16/17 03/16/17 03/17/17 16:36 18:00 03:42 WBC 20.6 H RBC Hgb Hct RDW 17.3 H Lymph % (Auto) [place] % (Auto) Lymph # [place] # Seg Neutrophils % Seg Neuts % (Manual) 84.0 H Lymphocytes % (Manual) 3.0 L Monocytes % (Manual) 11.0 H Seg Neutrophils # Seg Neutrophils # Man 17.3 H Lymphocytes # (Manual) 0.6 L Monocytes # (Manual) 2.3 H Heparin Anti-Xa Level POC ABG pH 7.336 L POC ABG pCO2 47.9 H POC ABG pO2 189 H Sodium Potassium Chloride Carbon Dioxide BUN Creatinine Glucose POC Glucose ALT Alkaline Phosphatase Total Creatine Kinase 282 H CK-MB (CK-2) 24.2 H CK-MB (CK-2) Rel Index 8.5 H Troponin T 0.656 H* D C-Reactive Protein Albumin 03/17/17 03/17/17 03/17/17 03:42 04:21 17:15 WBC RBC Hgb Hct RDW Lymph % (Auto) [place] % (Auto) Lymph # [place] # Seg Neutrophils % Seg Neuts % (Manual) Lymphocytes % (Manual) Monocytes % (Manual) Seg Neutrophils # Seg Neutrophils # Man Lymphocytes # (Manual) Monocytes # (Manual) Heparin Anti-Xa Level 0.10 L POC ABG pH POC ABG pCO2 POC ABG pO2 Sodium 131 L Potassium 5.3 H D Chloride 89.5 L Carbon Dioxide 21 L BUN 39 H Creatinine 7.0 H Glucose 151 H POC Glucose ALT Alkaline Phosphatase Total Creatine Kinase CK-MB (CK-2) CK-MB (CK-2) Rel Index Troponin T C-Reactive Protein 33.90 H Albumin 03/17/17 03/18/17 03/18/17 21:12 03:33 03:33 WBC 17.6 H RBC 3.59 L Hgb Hct RDW 16.9 H Lymph % (Auto) 4.2 L [place] % (Auto) 11.8 H Lymph # 0.7 L [place] # 2.1 H Seg Neutrophils % 83.3 H Seg Neuts % (Manual) Lymphocytes % (Manual) Monocytes % (Manual) Seg Neutrophils # 14.7 H Seg Neutrophils # Man Lymphocytes # (Manual) Monocytes # (Manual) Heparin Anti-Xa Level < 0.10 L POC ABG pH POC ABG pCO2 POC ABG pO2 Sodium 127 L Potassium 6.1 H* Chloride 87.2 L Carbon Dioxide BUN 55 H Creatinine 8.7 H Glucose 140 H POC Glucose ALT Alkaline Phosphatase Total Creatine Kinase CK-MB (CK-2) CK-MB (CK-2) Rel Index Troponin T C-Reactive Protein Albumin 03/18/17 03/18/17 03/19/17 04:34 22:15 00:04 WBC RBC Hgb Hct RDW Lymph % (Auto) [place] % (Auto) Lymph # [place] # Seg Neutrophils % Seg Neuts % (Manual) Lymphocytes % (Manual) Monocytes % (Manual) Seg Neutrophils # Seg Neutrophils # Man Lymphocytes # (Manual) Monocytes # (Manual) Heparin Anti-Xa Level POC ABG pH 7.289 L POC ABG pCO2 48.7 H POC ABG pO2 Sodium Potassium 5.6 H Chloride Carbon Dioxide BUN Creatinine Glucose POC Glucose 108 H ALT Alkaline Phosphatase Total Creatine Kinase CK-MB (CK-2) CK-MB (CK-2) Rel Index Troponin T C-Reactive Protein Albumin 03/19/17 03/19/17 03/19/17 05:22 08:00 08:00 WBC 16.3 H RBC 3.15 L Hgb 8.8 L Hct 27.3 L RDW 17.4 H Lymph % (Auto) 3.4 L [place] % (Auto) 10.1 H Lymph # 0.5 L [place] # 1.7 H Seg Neutrophils % 85.4 H Seg Neuts % (Manual) Lymphocytes % (Manual) Monocytes % (Manual) Seg Neutrophils # 13.9 H Seg Neutrophils # Man Lymphocytes # (Manual) Monocytes # (Manual) Heparin Anti-Xa Level POC ABG pH POC ABG pCO2 POC ABG pO2 Sodium 131 L Potassium Chloride 89.3 L Carbon Dioxide BUN 56 H Creatinine 7.8 H Glucose 122 H POC Glucose 146 H ALT 59 H Alkaline Phosphatase 208 H Total Creatine Kinase CK-MB (CK-2) CK-MB (CK-2) Rel Index Troponin T C-Reactive Protein Albumin 2.6 L 03/19/17 03/19/17 03/19/17 08:06 11:50 17:36 WBC RBC Hgb Hct RDW Lymph % (Auto) [place] % (Auto) Lymph # [place] # Seg Neutrophils % Seg Neuts % (Manual) Lymphocytes % (Manual) Monocytes % (Manual) Seg Neutrophils # Seg Neutrophils # Man Lymphocytes # (Manual) Monocytes # (Manual) Heparin Anti-Xa Level POC ABG pH 7.338 L POC ABG pCO2 49.2 H POC ABG pO2 110 H Sodium Potassium Chloride Carbon Dioxide BUN Creatinine Glucose POC Glucose 172 H 152 H ALT Alkaline Phosphatase Total Creatine Kinase CK-MB (CK-2) CK-MB (CK-2) Rel Index Troponin T C-Reactive Protein Albumin 03/20/17 03/20/17 03/20/17 00:14 04:15 05:06 WBC RBC Hgb Hct RDW Lymph % (Auto) [place] % (Auto) Lymph # [place] # Seg Neutrophils % Seg Neuts % (Manual) Lymphocytes % (Manual) Monocytes % (Manual) Seg Neutrophils # Seg Neutrophils # Man Lymphocytes # (Manual) Monocytes # (Manual) Heparin Anti-Xa Level POC ABG pH 7.288 L POC ABG pCO2 51.4 H POC ABG pO2 Sodium Potassium Chloride Carbon Dioxide BUN Creatinine Glucose POC Glucose 132 H 166 H ALT Alkaline Phosphatase Total Creatine Kinase CK-MB (CK-2) CK-MB (CK-2) Rel Index Troponin T C-Reactive Protein Albumin 03/20/17 03/20/17 03/20/17 12:07 15:45 17:41 WBC RBC Hgb Hct RDW Lymph % (Auto) [place] % (Auto) Lymph # [place] # Seg Neutrophils % Seg Neuts % (Manual) Lymphocytes % (Manual) Monocytes % (Manual) Seg Neutrophils # Seg Neutrophils # Man Lymphocytes # (Manual) Monocytes # (Manual) Heparin Anti-Xa Level POC ABG pH POC ABG pCO2 POC ABG pO2 Sodium Potassium Chloride Carbon Dioxide BUN Creatinine Glucose POC Glucose 193 H 172 H 156 H ALT Alkaline Phosphatase Total Creatine Kinase CK-MB (CK-2) CK-MB (CK-2) Rel Index Troponin T C-Reactive Protein Albumin 03/20/17 03/21/17 03/21/17 23:13 04:42 05:41 WBC RBC Hgb Hct RDW Lymph % (Auto) [place] % (Auto) Lymph # [place] # Seg Neutrophils % Seg Neuts % (Manual) Lymphocytes % (Manual) Monocytes % (Manual) Seg Neutrophils # Seg Neutrophils # Man Lymphocytes # (Manual) Monocytes # (Manual) Heparin Anti-Xa Level POC ABG pH 7.321 L POC ABG pCO2 56.8 H POC ABG pO2 73 L Sodium Potassium Chloride Carbon Dioxide BUN Creatinine Glucose POC Glucose 141 H 159 H ALT Alkaline Phosphatase Total Creatine Kinase CK-MB (CK-2) CK-MB (CK-2) Rel Index Troponin T C-Reactive Protein Albumin 03/21/17 03/21/17 03/21/17 07:45 07:45 12:16 WBC 15.1 H RBC 3.32 L Hgb 9.2 L Hct 28.9 L RDW 17.4 H Lymph % (Auto) 4.7 L [place] % (Auto) 16.0 H Lymph # 0.7 L [place] # 2.4 H Seg Neutrophils % 78.6 H Seg Neuts % (Manual) Lymphocytes % (Manual) Monocytes % (Manual) Seg Neutrophils # 11.8 H Seg Neutrophils # Man Lymphocytes # (Manual) Monocytes # (Manual) Heparin Anti-Xa Level POC ABG pH POC ABG pCO2 POC ABG pO2 Sodium Potassium Chloride 95.4 L Carbon Dioxide BUN 55 H Creatinine 6.9 H Glucose 188 H POC Glucose 226 H ALT Alkaline Phosphatase 244 H Total Creatine Kinase CK-MB (CK-2) CK-MB (CK-2) Rel Index Troponin T C-Reactive Protein Albumin 2.8 L 03/21/17 03/21/17 03/22/17 17:17 23:28 04:49 WBC RBC Hgb Hct RDW Lymph % (Auto) [place] % (Auto) Lymph # [place] # Seg Neutrophils % Seg Neuts % (Manual) Lymphocytes % (Manual) Monocytes % (Manual) Seg Neutrophils # Seg Neutrophils # Man Lymphocytes # (Manual) Monocytes # (Manual) Heparin Anti-Xa Level POC ABG pH 7.323 L POC ABG pCO2 49.5 H POC ABG pO2 77 L Sodium Potassium Chloride Carbon Dioxide BUN Creatinine Glucose POC Glucose 192 H 199 H ALT Alkaline Phosphatase Total Creatine Kinase CK-MB (CK-2) CK-MB (CK-2) Rel Index Troponin T C-Reactive Protein Albumin 03/22/17 03/22/17 03/22/17 06:13 07:40 07:40 WBC 16.4 H RBC 3.29 L Hgb 9.1 L Hct 28.4 L RDW 17.3 H Lymph % (Auto) [place] % (Auto) Lymph # [place] # Seg Neutrophils % Seg Neuts % (Manual) 73.0 H Lymphocytes % (Manual) 8.0 L Monocytes % (Manual) 14.0 H Seg Neutrophils # Seg Neutrophils # Man 12.0 H Lymphocytes # (Manual) Monocytes # (Manual) 2.3 H Heparin Anti-Xa Level POC ABG pH POC ABG pCO2 POC ABG pO2 Sodium Potassium Chloride 94.8 L Carbon Dioxide 21 L BUN 84 H Creatinine 9.4 H Glucose 188 H POC Glucose 190 H ALT Alkaline Phosphatase Total Creatine Kinase CK-MB (CK-2) CK-MB (CK-2) Rel Index Troponin T C-Reactive Protein Albumin 03/22/17 03/22/17 03/22/17 11:43 17:38 23:56 WBC RBC Hgb Hct RDW Lymph % (Auto) [place] % (Auto) Lymph # [place] # Seg Neutrophils % Seg Neuts % (Manual) Lymphocytes % (Manual) Monocytes % (Manual) Seg Neutrophils # Seg Neutrophils # Man Lymphocytes # (Manual) Monocytes # (Manual) Heparin Anti-Xa Level POC ABG pH POC ABG pCO2 POC ABG pO2 Sodium Potassium Chloride Carbon Dioxide BUN Creatinine Glucose POC Glucose 149 H 168 H 229 H ALT Alkaline Phosphatase Total Creatine Kinase CK-MB (CK-2) CK-MB (CK-2) Rel Index Troponin T C-Reactive Protein Albumin 03/23/17 03/23/17 03/23/17 05:00 05:00 05:21 WBC 14.0 H RBC 3.09 L Hgb 8.5 L Hct 27.0 L RDW 17.8 H Lymph % (Auto) [place] % (Auto) Lymph # [place] # Seg Neutrophils % Seg Neuts % (Manual) Lymphocytes % (Manual) 11.0 L Monocytes % (Manual) 13.0 H Seg Neutrophils # Seg Neutrophils # Man 9.2 H Lymphocytes # (Manual) Monocytes # (Manual) 1.8 H Heparin Anti-Xa Level POC ABG pH POC ABG pCO2 POC ABG pO2 Sodium Potassium Chloride 94.5 L Carbon Dioxide BUN 76 H Creatinine 7.5 H Glucose 192 H POC Glucose 195 H ALT Alkaline Phosphatase Total Creatine Kinase CK-MB (CK-2) CK-MB (CK-2) Rel Index Troponin T C-Reactive Protein Albumin 03/23/17 03/23/17 03/23/17 12:15 17:47 23:27 WBC RBC Hgb Hct RDW Lymph % (Auto) [place] % (Auto) Lymph # [place] # Seg Neutrophils % Seg Neuts % (Manual) Lymphocytes % (Manual) Monocytes % (Manual) Seg Neutrophils # Seg Neutrophils # Man Lymphocytes # (Manual) Monocytes # (Manual) Heparin Anti-Xa Level POC ABG pH POC ABG pCO2 POC ABG pO2 Sodium Potassium Chloride Carbon Dioxide BUN Creatinine Glucose POC Glucose 162 H 137 H 221 H ALT Alkaline Phosphatase Total Creatine Kinase CK-MB (CK-2) CK-MB (CK-2) Rel Index Troponin T C-Reactive Protein Albumin 03/24/17 03/24/17 03/24/17 05:42 08:49 08:49 WBC RBC 2.99 L Hgb 8.5 L Hct 25.9 L RDW 18.1 H Lymph % (Auto) [place] % (Auto) Lymph # [place] # Seg Neutrophils % Seg Neuts % (Manual) 83.0 H Lymphocytes % (Manual) 6.0 L Monocytes % (Manual) Seg Neutrophils # Seg Neutrophils # Man 8.5 H Lymphocytes # (Manual) 0.6 L Monocytes # (Manual) Heparin Anti-Xa Level POC ABG pH POC ABG pCO2 POC ABG pO2 Sodium Potassium Chloride 95.4 L Carbon Dioxide BUN 108 H Creatinine 9.4 H Glucose 203 H POC Glucose 216 H ALT Alkaline Phosphatase Total Creatine Kinase CK-MB (CK-2) CK-MB (CK-2) Rel Index Troponin T C-Reactive Protein Albumin 03/24/17 03/24/17 03/24/17 11:21 17:32 23:37 WBC RBC Hgb Hct RDW Lymph % (Auto) [place] % (Auto) Lymph # [place] # Seg Neutrophils % Seg Neuts % (Manual) Lymphocytes % (Manual) Monocytes % (Manual) Seg Neutrophils # Seg Neutrophils # Man Lymphocytes # (Manual) Monocytes # (Manual) Heparin Anti-Xa Level POC ABG pH POC ABG pCO2 POC ABG pO2 Sodium Potassium Chloride Carbon Dioxide BUN Creatinine Glucose POC Glucose 185 H 138 H 218 H ALT Alkaline Phosphatase Total Creatine Kinase CK-MB (CK-2) CK-MB (CK-2) Rel Index Troponin T C-Reactive Protein Albumin 03/25/17 03/25/17 03/25/17 04:38 04:38 05:24 WBC RBC 3.27 L Hgb 9.3 L Hct 29.8 L RDW 18.4 H Lymph % (Auto) [place] % (Auto) Lymph # [place] # Seg Neutrophils % Seg Neuts % (Manual) 78.0 H Lymphocytes % (Manual) 10.0 L Monocytes % (Manual) 9.0 H Seg Neutrophils # Seg Neutrophils # Man Lymphocytes # (Manual) 0.8 L Monocytes # (Manual) Heparin Anti-Xa Level POC ABG pH POC ABG pCO2 POC ABG pO2 Sodium 136 L Potassium Chloride 92.5 L Carbon Dioxide 17 L BUN 124 H Creatinine 9.7 H Glucose 217 H POC Glucose 211 H ALT Alkaline Phosphatase Total Creatine Kinase CK-MB (CK-2) CK-MB (CK-2) Rel Index Troponin T C-Reactive Protein Albumin 03/25/17 03/25/17 03/25/17 11:53 17:15 20:12 WBC RBC Hgb Hct RDW Lymph % (Auto) [place] % (Auto) Lymph # [place] # Seg Neutrophils % Seg Neuts % (Manual) Lymphocytes % (Manual) Monocytes % (Manual) Seg Neutrophils # Seg Neutrophils # Man Lymphocytes # (Manual) Monocytes # (Manual) Heparin Anti-Xa Level POC ABG pH 7.469 H POC ABG pCO2 POC ABG pO2 69 L Sodium Potassium Chloride Carbon Dioxide BUN Creatinine Glucose POC Glucose 165 H 173 H ALT Alkaline Phosphatase Total Creatine Kinase CK-MB (CK-2) CK-MB (CK-2) Rel Index Troponin T C-Reactive Protein Albumin 03/25/17 03/26/17 03/26/17 23:32 05:59 06:03 WBC RBC Hgb Hct RDW Lymph % (Auto) [place] % (Auto) Lymph # [place] # Seg Neutrophils % Seg Neuts % (Manual) Lymphocytes % (Manual) Monocytes % (Manual) Seg Neutrophils # Seg Neutrophils # Man Lymphocytes # (Manual) Monocytes # (Manual) Heparin Anti-Xa Level POC ABG pH POC ABG pCO2 POC ABG pO2 Sodium 136 L Potassium Chloride 91.6 L Carbon Dioxide 20 L BUN 97 H Creatinine 8.0 H Glucose 239 H POC Glucose 231 H 214 H ALT Alkaline Phosphatase Total Creatine Kinase CK-MB (CK-2) CK-MB (CK-2) Rel Index Troponin T C-Reactive Protein Albumin Chest x-ray: pending Allied health notes reviewed: RT
[2017-03-26] MEDS: HALDOL IV PRN (21:14)
[2017-03-27] MEDS: TYLENOL FEEDTUBE PRN ×2 (00:54→17:47)
[2017-03-27] MEDS: REGLAN IV SCH ×2 (00:59→03:17)
[2017-03-27] MEDS: DUONEB *Not for PRN Use IH SCH ×4 (02:58→20:40)
[2017-03-27] MEDS: LOPRESSOR PO SCH ×4 (03:18→21:19)
[2017-03-27 04:50] LABS: Hemoglobin 9.2 gm/dl (10.1-14.3); Mean Corpuscular HGB Conc 32 % (30-34); Mean Corpuscular Hemoglobin 28 pg (28-32); Platelet Count 251 K/mm3 (140-440); Red Blood Count 3.33 M/mm3 (3.65-5.03); White Blood Count 12.9 K/mm3 (4.5-11.0)
[2017-03-27 05:04] LABS: Mean Corpuscular Volume 87 fl (79-97)
[2017-03-27] MEDS: HEPARIN SUB-Q SCH ×3 (05:11→21:19)
[2017-03-27 05:12] LABS: Calcium 9.7 mg/dL (8.4-10.2); Chloride 91.8 mmol/L (98-107); Potassium 4.4 mmol/L (3.6-5.0)
[2017-03-27 05:54] LABS: Basophils % (Manual) 0 % (0.0-1.8); Blastocytes % (Manual) 0 %
[2017-03-27 05:57] LABS: Diff Status Complete; Platelet Estimate Consistent w Auto; Polychromasia Few
--- NOTE | 2017-03-27 07:23 | XRay Report ---
Single view chest: Compared to 03/21/17. History: Hypoxemia, respiratory failure. Findings: Cardiomegaly. Trachea is midline. No consolidation, pneumothorax or pleural effusion. Impression: Cardiomegaly. No acute lung changes.
[2017-03-27] MEDS: FLAGYL 500 MG/100 ML 500 MG/100 ML BAG IV SCH ×2 (08:00→15:27)
--- NOTE | 2017-03-27 10:03 | Progress Note ---
Subjective Principal diagnosis: Acute Hypoxemic Resp Failure; STEMI Interval history: Patient was seen today for follow-up and multiple renal-related issues Patient has been short of breath this morning Events of 24 hours vitals labs intake output medications were reviewed She tolerated hemodialysis treatment well yesterday and denies any acute complaints This was also discussed with the nurse Social history: Reviewed Family history: Reviewed Allergies: Reviewed Physical examination Vitals reviewed HEENT: Mild pallor no icterus Neck: Supple no JVD Chest: Clear to auscultation Heart: Regular rate and rhythm Abdomen soft nontender no renal bruit no CVA tenderness Extremity: Mild edema right skin Assessment and plan End-stage renal disease patient is currently on maintenance hemodialysis Patient will need to be dialyzed today and be on schedule Saturday and Saturday she was also seen and supervised during hemodialysis. We'll try to ultrafiltrate between 3 and 4 kg as tolerated Discussed with dialysis nurse to put her on 35.5, possible albumin 25 g if needed for ultrafiltrate Anemia in end-stage renal disease to monitor Respiratory status appears to be more stable today Secondary hyperparathyroidism to follow Malnutrition risk is high and dialysis patient please consider high-protein diet 1.5 g per KG body weight We'll consider hemodialysis tomorrow morning as she appears to be doing better Patient was adequately counseled and educated regarding renal-related issues All renal-related questions were answered We'll continue to follow and make recommendation from renal standpoint Objective - Vital Signs Vital signs: Vital Signs - 12hr 03/26/17 03/26/17 03/26/17 23:01 23:25 23:30 Temperature Pulse Rate 71 71 71 Pulse Rate [ Anterior Bilateral Throughout] Respiratory 28 H 29 H 26 H Rate Respiratory Rate [Anterior Bilateral Throughout] Blood Pressure 133/58 133/58 133/58 O2 Sat by Pulse 98 98 99 Oximetry 03/26/17 03/27/17 03/27/17 23:55 00:00 01:01 Temperature 99.6 F Pulse Rate 72 73 Pulse Rate [ Anterior Bilateral Throughout] Respiratory 28 H 31 H Rate Respiratory Rate [Anterior Bilateral Throughout] Blood Pressure 129/55 152/72 O2 Sat by Pulse Oximetry 03/27/17 03/27/17 03/27/17 02:00 03:00 03:13 Temperature Pulse Rate 72 69 Pulse Rate [ 95 H Anterior Bilateral Throughout] Respiratory 21 26 H Rate Respiratory 24 Rate [Anterior Bilateral Throughout] Blood Pressure 125/48 118/50 O2 Sat by Pulse 95 Oximetry 03/27/17 03/27/17 03/27/17 03:18 04:00 05:00 Temperature 99.0 F Pulse Rate 73 69 70 Pulse Rate [ Anterior Bilateral Throughout] Respiratory 24 25 H Rate Respiratory Rate [Anterior Bilateral Throughout] Blood Pressure 118/50 143/54 133/48 O2 Sat by Pulse 96 96 Oximetry 03/27/17 03/27/17 03/27/17 06:00 08:00 08:40 Temperature 98.6 F Pulse Rate 73 Pulse Rate [ 98 H Anterior Bilateral Throughout] Respiratory 27 H Rate Respiratory 26 H Rate [Anterior Bilateral Throughout] Blood Pressure 137/64 O2 Sat by Pulse 97 98 Oximetry - Lab 03/27/17 04:00 03/27/17 04:00 Most recent lab results Calcium 9.7 mg/dL (8.4-10.2) 03/27/17 04:00
--- NOTE | 2017-03-27 10:13 | Progress Note ---
Assessment and Plan Currently stable cardiac status. Cont present cardiac management. The patient has been seen in conjunction with Dr. García who agrees with the assessment and plan of care. - Patient Problems (1) Acute hypoxemic respiratory failure Current Visit: Yes Status: Resolved (2) Cardiac arrest Current Visit: Yes Status: Acute (3) Cardiac arrest due to underlying cardiac condition Current Visit: Yes Status: Acute (4) ESRD on dialysis Current Visit: Yes Status: Acute (5) Obesity (BMI 30-39.9) Current Visit: Yes Status: Chronic (6) STEMI (ST elevation myocardial infarction) Current Visit: Yes Status: Acute Qualifiers: Involved coronary artery: unspecified coronary artery Qualified Code(s): I21.3 - ST elevation (STEMI) myocardial infarction of unspecified site (7) Seizure Current Visit: Yes Status: Acute (8) Sepsis syndrome Current Visit: Yes Status: Acute (9) Aortic stenosis Current Visit: Yes Status: Chronic Qualifiers: Cardiac valve disease etiology: C (10) Pulmonary HTN Current Visit: Yes Status: Chronic (11) CVA (cerebral vascular accident) Current Visit: No Status: Acute Qualifiers: CVA mechanism: C Precerebral and cerebral artery: P Laterality of affected vessel: L (12) Kidney stone Current Visit: No Status: Chronic (13) Rectal bleed Current Visit: No Status: Acute (14) UTI (urinary tract infection) Current Visit: No Status: Acute Qualifiers: Urinary tract infection type: U Hematuria presence: H Indwelling urinary catheter type: I Encounter type: E (15) Hypertension Current Visit: No Status: Chronic Qualifiers: Hypertension type: H (16) Type 2 diabetes mellitus Current Visit: No Status: Chronic Qualifiers: Diabetes mellitus complication status: D Diabetes mellitus complication detail: D Diabetic retinopathy severity: D Proliferative retinopathy type: P Diabetes mellitus macular edema: D 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 Nods head appropriately to questions. No complaints. VSS. Objective Last Vital Signs Temp 98.6 F 03/27/17 08:00 Pulse 98 H 03/27/17 08:00 Resp 26 H 03/27/17 08:00 BP 137/64 03/27/17 06:00 Pulse Ox 98 03/27/17 08:40 - Physical Examination General: Appears Well, No Apparent Distress HEENT: Positive: Normocephaly, Mucus Membranes Moist Neck: Positive: neck supple, trachea midline Cardiac: Positive: Reg Rate and Rhythm, S1/S2 Lungs: Positive: clear to auscultation Neuro: Positive: Grossly Intact Abdomen: Positive: Soft, Active Bowel Sounds Skin: Negative: Clear, Rash Musculoskeletal: No Fluid Collection, No Pain, Normal Range of Motion Extremities: Present: upper extr. pulses, lower extr. pulses. Absent: edema - Labs and Meds CBC 03/27/17 Range/Units 04:00 WBC 12.9 H (4.5-11.0) K/mm3 RBC 3.33 L (3.65-5.03) M/mm3 Hgb 9.2 L (10.1-14.3) gm/dl Hct 29.0 L (30.3-42.9) % Plt Count 251 (140-440) K/mm3 Comprehensive Metabolic Panel 03/27/17 Range/Units 04:00 Sodium 137 (137-145) mmol/L Potassium 4.4 (3.6-5.0) mmol/L Chloride 91.8 L (98-107) mmol/L Carbon Dioxide 22 (22-30) mmol/L BUN 108 H (7-17) mg/dL Creatinine 9.0 H (0.7-1.2) mg/dL Glucose 237 H (65-100) mg/dL Calcium 9.7 (8.4-10.2) mg/dL - Imaging and Cardiology EKG: report reviewed, image reviewed Echo: report reviewed - Telemetry EKG Rhythm: Sinus Rhythm - EKG Sinus rhythms and dysrhythmias: sinus rhythm Myocardial infarction: inferior ID (acute or rec, anterior ID (acute or rec - Allied health notes Allied health notes reviewed: RT
--- NOTE | 2017-03-27 12:04 | Progress Note ---
Assessment and Plan - Patient Problems (1) Acute hypoxemic respiratory failure Current Visit: Yes Status: Resolved Plan to address problem: - will continue aspiration precautions - will continue bronchodilators and pulmonary toilet - continue to wean oxygen for sats > 94% - continue to use BIPAP scheduled qhs and prn daytime - continue HD/UF for toxin and volume clearance - prn ABG's to evaluate for hypercapnia - CXR reviewed and no acute process (2) ESRD on dialysis Current Visit: Yes Status: Acute Plan to address problem: - continue HD/UF per nephrology prescription - oliguric (3) Obesity (BMI 30-39.9) Current Visit: Yes Status: Chronic Plan to address problem: - weight loss - outpatient sleep clinic evaluation (4) Sepsis syndrome Current Visit: Yes Status: Acute Plan to address problem: - begin empiric AB's - get ID consultation - wean dopamine for MAP > 65mmHg - CRP significantly improved - complete empiric AB's dose (5) STEMI (ST elevation myocardial infarction) Current Visit: Yes Status: Acute Qualifiers: Involved coronary artery: unspecified coronary artery Qualified Code(s): I21.3 - ST elevation (STEMI) myocardial infarction of unspecified site Plan to address problem: - on SQ heparin now for VTE prophylaxis - clinically improved - on plavix - cardiology on case and managing (will defer otherwise) (6) Type 2 diabetes mellitus Current Visit: No Status: Chronic Qualifiers: Diabetes mellitus complication status: D Diabetes mellitus complication detail: D Diabetic retinopathy severity: D Proliferative retinopathy type: P Diabetes mellitus macular edema: D Diabetes mellitus senior care insulin use : D Laterality: L Chronic kidney disease stage: C Plan to address problem: - continue SSI for glycemic control (7) Discharge planning issues Current Visit: Yes Status: Acute Plan to address problem: - ok to transfer to telemetry Subjective Date of service: 03/27/17 Principal diagnosis: Acute Hypoxemic Resp Failure; STEMI Interval history: Seen and examined at bedside; 24 hour events reviewed; nursing and respiratory care staff consulted; no adverse overnight events reported to me; looks and feels better; denies acute chest pains or increased SOB; No N/V/F/C; remains on 2L NC Objective Vital Signs - 12hr 03/27/17 03/27/17 03/27/17 01:01 02:00 03:00 Temperature Pulse Rate 73 72 69 Pulse Rate [ Anterior Bilateral Throughout] Respiratory 31 H 21 26 H Rate Respiratory Rate [Anterior Bilateral Throughout] Blood Pressure 152/72 125/48 118/50 O2 Sat by Pulse 95 Oximetry O2 Sat by Pulse Oximetry [ Anterior Bilateral Throughout] 03/27/17 03/27/17 03/27/17 03:13 03:18 04:00 Temperature 99.0 F Pulse Rate 73 69 Pulse Rate [ 95 H Anterior Bilateral Throughout] Respiratory 24 Rate Respiratory 24 Rate [Anterior Bilateral Throughout] Blood Pressure 118/50 143/54 O2 Sat by Pulse 96 Oximetry O2 Sat by Pulse Oximetry [ Anterior Bilateral Throughout] 03/27/17 03/27/17 03/27/17 05:00 06:00 08:00 Temperature 98.6 F Pulse Rate 70 73 Pulse Rate [ 98 H Anterior Bilateral Throughout] Respiratory 25 H 27 H Rate Respiratory 26 H Rate [Anterior Bilateral Throughout] Blood Pressure 133/48 137/64 O2 Sat by Pulse 96 97 Oximetry O2 Sat by Pulse Oximetry [ Anterior Bilateral Throughout] 03/27/17 03/27/17 03/27/17 08:40 09:45 10:00 Temperature 98.6 F Pulse Rate 71 68 Pulse Rate [ Anterior Bilateral Throughout] Respiratory 26 H Rate Respiratory Rate [Anterior Bilateral Throughout] Blood Pressure 140/61 151/66 O2 Sat by Pulse 98 Oximetry O2 Sat by Pulse 99 Oximetry [ Anterior Bilateral Throughout] 03/27/17 03/27/17 03/27/17 10:15 10:30 10:45 Temperature Pulse Rate 69 69 74 Pulse Rate [ Anterior Bilateral Throughout] Respiratory Rate Respiratory Rate [Anterior Bilateral Throughout] Blood Pressure 148/64 136/70 145/75 O2 Sat by Pulse Oximetry O2 Sat by Pulse Oximetry [ Anterior Bilateral Throughout] 03/27/17 03/27/17 03/27/17 11:00 11:15 11:30 Temperature Pulse Rate 74 73 73 Pulse Rate [ Anterior Bilateral Throughout] Respiratory Rate Respiratory Rate [Anterior Bilateral Throughout] Blood Pressure 138/71 150/72 136/73 O2 Sat by Pulse Oximetry O2 Sat by Pulse Oximetry [ Anterior Bilateral Throughout] 03/27/17 11:45 Temperature Pulse Rate 76 Pulse Rate [ Anterior Bilateral Throughout] Respiratory Rate Respiratory Rate [Anterior Bilateral Throughout] Blood Pressure 135/67 O2 Sat by Pulse Oximetry O2 Sat by Pulse Oximetry [ Anterior Bilateral Throughout] Constitutional: no acute distress Eyes: non-icteric ENT: oropharynx moist Neck: supple, no lymphadenopathy, no JVD Effort: mildly labored Ascultation: Bilateral: clear, diminished breath sounds Cardiovascular: regular rate and rhythm Gastrointestinal: normoactive bowel sounds, soft, non-tender, non-distended Integumentary: normal, other (Femoral CVC) Extremities: no cyanosis, no edema, pulses normal, no ischemia or petechiae Neurologic: normal mental status, non-focal exam (Moves all extremities, tracks my voice, attempts to vocalize in response to questions), unable to assess Psychiatric: other (unable to assess) CBC and BMP: 03/27/17 04:00 03/27/17 04:00 ABG, PT/INR, D-dimer: ABG POC ABG pH 7.469 (7.35-7.45) H 03/25/17 20:12 POC ABG pCO2 36.2 (35-45) 03/25/17 20:12 POC ABG pO2 69 (80-105) L 03/25/17 20:12 POC ABG HCO3 26.2 03/25/17 20:12 POC ABG Total CO2 27 03/25/17 20:12 POC ABG O2 Sat 95 03/25/17 20:12 PT/INR, D-dimer PT 13.4 Sec. (12.2-14.9) 03/16/17 11:07 INR 1.03 (0.87-1.13) 03/16/17 11:07 Abnormal lab findings: Abnormal Labs 03/16/17 03/16/17 03/17/17 16:36 18:00 03:42 WBC 20.6 H RBC Hgb Hct RDW 17.3 H Lymph % (Auto) [place] % (Auto) Lymph # [place] # Seg Neutrophils % Seg Neuts % (Manual) 84.0 H Lymphocytes % (Manual) 3.0 L Monocytes % (Manual) 11.0 H Seg Neutrophils # Seg Neutrophils # Man 17.3 H Lymphocytes # (Manual) 0.6 L Monocytes # (Manual) 2.3 H Heparin Anti-Xa Level POC ABG pH 7.336 L POC ABG pCO2 47.9 H POC ABG pO2 189 H Sodium Potassium Chloride Carbon Dioxide BUN Creatinine Glucose POC Glucose ALT Alkaline Phosphatase Total Creatine Kinase 282 H CK-MB (CK-2) 24.2 H CK-MB (CK-2) Rel Index 8.5 H Troponin T 0.656 H* D C-Reactive Protein Albumin 03/17/17 03/17/17 03/17/17 03:42 04:21 17:15 WBC RBC Hgb Hct RDW Lymph % (Auto) [place] % (Auto) Lymph # [place] # Seg Neutrophils % Seg Neuts % (Manual) Lymphocytes % (Manual) Monocytes % (Manual) Seg Neutrophils # Seg Neutrophils # Man Lymphocytes # (Manual) Monocytes # (Manual) Heparin Anti-Xa Level 0.10 L POC ABG pH POC ABG pCO2 POC ABG pO2 Sodium 131 L Potassium 5.3 H D Chloride 89.5 L Carbon Dioxide 21 L BUN 39 H Creatinine 7.0 H Glucose 151 H POC Glucose ALT Alkaline Phosphatase Total Creatine Kinase CK-MB (CK-2) CK-MB (CK-2) Rel Index Troponin T C-Reactive Protein 33.90 H Albumin 03/17/17 03/18/17 03/18/17 21:12 03:33 03:33 WBC 17.6 H RBC 3.59 L Hgb Hct RDW 16.9 H Lymph % (Auto) 4.2 L [place] % (Auto) 11.8 H Lymph # 0.7 L [place] # 2.1 H Seg Neutrophils % 83.3 H Seg Neuts % (Manual) Lymphocytes % (Manual) Monocytes % (Manual) Seg Neutrophils # 14.7 H Seg Neutrophils # Man Lymphocytes # (Manual) Monocytes # (Manual) Heparin Anti-Xa Level < 0.10 L POC ABG pH POC ABG pCO2 POC ABG pO2 Sodium 127 L Potassium 6.1 H* Chloride 87.2 L Carbon Dioxide BUN 55 H Creatinine 8.7 H Glucose 140 H POC Glucose ALT Alkaline Phosphatase Total Creatine Kinase CK-MB (CK-2) CK-MB (CK-2) Rel Index Troponin T C-Reactive Protein Albumin 03/18/17 03/18/17 03/19/17 04:34 22:15 00:04 WBC RBC Hgb Hct RDW Lymph % (Auto) [place] % (Auto) Lymph # [place] # Seg Neutrophils % Seg Neuts % (Manual) Lymphocytes % (Manual) Monocytes % (Manual) Seg Neutrophils # Seg Neutrophils # Man Lymphocytes # (Manual) Monocytes # (Manual) Heparin Anti-Xa Level POC ABG pH 7.289 L POC ABG pCO2 48.7 H POC ABG pO2 Sodium Potassium 5.6 H Chloride Carbon Dioxide BUN Creatinine Glucose POC Glucose 108 H ALT Alkaline Phosphatase Total Creatine Kinase CK-MB (CK-2) CK-MB (CK-2) Rel Index Troponin T C-Reactive Protein Albumin 03/19/17 03/19/17 03/19/17 05:22 08:00 08:00 WBC 16.3 H RBC 3.15 L Hgb 8.8 L Hct 27.3 L RDW 17.4 H Lymph % (Auto) 3.4 L [place] % (Auto) 10.1 H Lymph # 0.5 L [place] # 1.7 H Seg Neutrophils % 85.4 H Seg Neuts % (Manual) Lymphocytes % (Manual) Monocytes % (Manual) Seg Neutrophils # 13.9 H Seg Neutrophils # Man Lymphocytes # (Manual) Monocytes # (Manual) Heparin Anti-Xa Level POC ABG pH POC ABG pCO2 POC ABG pO2 Sodium 131 L Potassium Chloride 89.3 L Carbon Dioxide BUN 56 H Creatinine 7.8 H Glucose 122 H POC Glucose 146 H ALT 59 H Alkaline Phosphatase 208 H Total Creatine Kinase CK-MB (CK-2) CK-MB (CK-2) Rel Index Troponin T C-Reactive Protein Albumin 2.6 L 03/19/17 03/19/17 03/19/17 08:06 11:50 17:36 WBC RBC Hgb Hct RDW Lymph % (Auto) [place] % (Auto) Lymph # [place] # Seg Neutrophils % Seg Neuts % (Manual) Lymphocytes % (Manual) Monocytes % (Manual) Seg Neutrophils # Seg Neutrophils # Man Lymphocytes # (Manual) Monocytes # (Manual) Heparin Anti-Xa Level POC ABG pH 7.338 L POC ABG pCO2 49.2 H POC ABG pO2 110 H Sodium Potassium Chloride Carbon Dioxide BUN Creatinine Glucose POC Glucose 172 H 152 H ALT Alkaline Phosphatase Total Creatine Kinase CK-MB (CK-2) CK-MB (CK-2) Rel Index Troponin T C-Reactive Protein Albumin 03/20/17 03/20/17 03/20/17 00:14 04:15 05:06 WBC RBC Hgb Hct RDW Lymph % (Auto) [place] % (Auto) Lymph # [place] # Seg Neutrophils % Seg Neuts % (Manual) Lymphocytes % (Manual) Monocytes % (Manual) Seg Neutrophils # Seg Neutrophils # Man Lymphocytes # (Manual) Monocytes # (Manual) Heparin Anti-Xa Level POC ABG pH 7.288 L POC ABG pCO2 51.4 H POC ABG pO2 Sodium Potassium Chloride Carbon Dioxide BUN Creatinine Glucose POC Glucose 132 H 166 H ALT Alkaline Phosphatase Total Creatine Kinase CK-MB (CK-2) CK-MB (CK-2) Rel Index Troponin T C-Reactive Protein Albumin 03/20/17 03/20/17 03/20/17 12:07 15:45 17:41 WBC RBC Hgb Hct RDW Lymph % (Auto) [place] % (Auto) Lymph # [place] # Seg Neutrophils % Seg Neuts % (Manual) Lymphocytes % (Manual) Monocytes % (Manual) Seg Neutrophils # Seg Neutrophils # Man Lymphocytes # (Manual) Monocytes # (Manual) Heparin Anti-Xa Level POC ABG pH POC ABG pCO2 POC ABG pO2 Sodium Potassium Chloride Carbon Dioxide BUN Creatinine Glucose POC Glucose 193 H 172 H 156 H ALT Alkaline Phosphatase Total Creatine Kinase CK-MB (CK-2) CK-MB (CK-2) Rel Index Troponin T C-Reactive Protein Albumin 03/20/17 03/21/17 03/21/17 23:13 04:42 05:41 WBC RBC Hgb Hct RDW Lymph % (Auto) [place] % (Auto) Lymph # [place] # Seg Neutrophils % Seg Neuts % (Manual) Lymphocytes % (Manual) Monocytes % (Manual) Seg Neutrophils # Seg Neutrophils # Man Lymphocytes # (Manual) Monocytes # (Manual) Heparin Anti-Xa Level POC ABG pH 7.321 L POC ABG pCO2 56.8 H POC ABG pO2 73 L Sodium Potassium Chloride Carbon Dioxide BUN Creatinine Glucose POC Glucose 141 H 159 H ALT Alkaline Phosphatase Total Creatine Kinase CK-MB (CK-2) CK-MB (CK-2) Rel Index Troponin T C-Reactive Protein Albumin 03/21/17 03/21/17 03/21/17 07:45 07:45 12:16 WBC 15.1 H RBC 3.32 L Hgb 9.2 L Hct 28.9 L RDW 17.4 H Lymph % (Auto) 4.7 L [place] % (Auto) 16.0 H Lymph # 0.7 L [place] # 2.4 H Seg Neutrophils % 78.6 H Seg Neuts % (Manual) Lymphocytes % (Manual) Monocytes % (Manual) Seg Neutrophils # 11.8 H Seg Neutrophils # Man Lymphocytes # (Manual) Monocytes # (Manual) Heparin Anti-Xa Level POC ABG pH POC ABG pCO2 POC ABG pO2 Sodium Potassium Chloride 95.4 L Carbon Dioxide BUN 55 H Creatinine 6.9 H Glucose 188 H POC Glucose 226 H ALT Alkaline Phosphatase 244 H Total Creatine Kinase CK-MB (CK-2) CK-MB (CK-2) Rel Index Troponin T C-Reactive Protein Albumin 2.8 L 03/21/17 03/21/17 03/22/17 17:17 23:28 04:49 WBC RBC Hgb Hct RDW Lymph % (Auto) [place] % (Auto) Lymph # [place] # Seg Neutrophils % Seg Neuts % (Manual) Lymphocytes % (Manual) Monocytes % (Manual) Seg Neutrophils # Seg Neutrophils # Man Lymphocytes # (Manual) Monocytes # (Manual) Heparin Anti-Xa Level POC ABG pH 7.323 L POC ABG pCO2 49.5 H POC ABG pO2 77 L Sodium Potassium Chloride Carbon Dioxide BUN Creatinine Glucose POC Glucose 192 H 199 H ALT Alkaline Phosphatase Total Creatine Kinase CK-MB (CK-2) CK-MB (CK-2) Rel Index Troponin T C-Reactive Protein Albumin 03/22/17 03/22/17 03/22/17 06:13 07:40 07:40 WBC 16.4 H RBC 3.29 L Hgb 9.1 L Hct 28.4 L RDW 17.3 H Lymph % (Auto) [place] % (Auto) Lymph # [place] # Seg Neutrophils % Seg Neuts % (Manual) 73.0 H Lymphocytes % (Manual) 8.0 L Monocytes % (Manual) 14.0 H Seg Neutrophils # Seg Neutrophils # Man 12.0 H Lymphocytes # (Manual) Monocytes # (Manual) 2.3 H Heparin Anti-Xa Level POC ABG pH POC ABG pCO2 POC ABG pO2 Sodium Potassium Chloride 94.8 L Carbon Dioxide 21 L BUN 84 H Creatinine 9.4 H Glucose 188 H POC Glucose 190 H ALT Alkaline Phosphatase Total Creatine Kinase CK-MB (CK-2) CK-MB (CK-2) Rel Index Troponin T C-Reactive Protein Albumin 03/22/17 03/22/17 03/22/17 11:43 17:38 23:56 WBC RBC Hgb Hct RDW Lymph % (Auto) [place] % (Auto) Lymph # [place] # Seg Neutrophils % Seg Neuts % (Manual) Lymphocytes % (Manual) Monocytes % (Manual) Seg Neutrophils # Seg Neutrophils # Man Lymphocytes # (Manual) Monocytes # (Manual) Heparin Anti-Xa Level POC ABG pH POC ABG pCO2 POC ABG pO2 Sodium Potassium Chloride Carbon Dioxide BUN Creatinine Glucose POC Glucose 149 H 168 H 229 H ALT Alkaline Phosphatase Total Creatine Kinase CK-MB (CK-2) CK-MB (CK-2) Rel Index Troponin T C-Reactive Protein Albumin 03/23/17 03/23/17 03/23/17 05:00 05:00 05:21 WBC 14.0 H RBC 3.09 L Hgb 8.5 L Hct 27.0 L RDW 17.8 H Lymph % (Auto) [place] % (Auto) Lymph # [place] # Seg Neutrophils % Seg Neuts % (Manual) Lymphocytes % (Manual) 11.0 L Monocytes % (Manual) 13.0 H Seg Neutrophils # Seg Neutrophils # Man 9.2 H Lymphocytes # (Manual) Monocytes # (Manual) 1.8 H Heparin Anti-Xa Level POC ABG pH POC ABG pCO2 POC ABG pO2 Sodium Potassium Chloride 94.5 L Carbon Dioxide BUN 76 H Creatinine 7.5 H Glucose 192 H POC Glucose 195 H ALT Alkaline Phosphatase Total Creatine Kinase CK-MB (CK-2) CK-MB (CK-2) Rel Index Troponin T C-Reactive Protein Albumin 03/23/17 03/23/17 03/23/17 12:15 17:47 23:27 WBC RBC Hgb Hct RDW Lymph % (Auto) [place] % (Auto) Lymph # [place] # Seg Neutrophils % Seg Neuts % (Manual) Lymphocytes % (Manual) Monocytes % (Manual) Seg Neutrophils # Seg Neutrophils # Man Lymphocytes # (Manual) Monocytes # (Manual) Heparin Anti-Xa Level POC ABG pH POC ABG pCO2 POC ABG pO2 Sodium Potassium Chloride Carbon Dioxide BUN Creatinine Glucose POC Glucose 162 H 137 H 221 H ALT Alkaline Phosphatase Total Creatine Kinase CK-MB (CK-2) CK-MB (CK-2) Rel Index Troponin T C-Reactive Protein Albumin 03/24/17 03/24/17 03/24/17 05:42 08:49 08:49 WBC RBC 2.99 L Hgb 8.5 L Hct 25.9 L RDW 18.1 H Lymph % (Auto) [place] % (Auto) Lymph # [place] # Seg Neutrophils % Seg Neuts % (Manual) 83.0 H Lymphocytes % (Manual) 6.0 L Monocytes % (Manual) Seg Neutrophils # Seg Neutrophils # Man 8.5 H Lymphocytes # (Manual) 0.6 L Monocytes # (Manual) Heparin Anti-Xa Level POC ABG pH POC ABG pCO2 POC ABG pO2 Sodium Potassium Chloride 95.4 L Carbon Dioxide BUN 108 H Creatinine 9.4 H Glucose 203 H POC Glucose 216 H ALT Alkaline Phosphatase Total Creatine Kinase CK-MB (CK-2) CK-MB (CK-2) Rel Index Troponin T C-Reactive Protein Albumin 03/24/17 03/24/17 03/24/17 11:21 17:32 23:37 WBC RBC Hgb Hct RDW Lymph % (Auto) [place] % (Auto) Lymph # [place] # Seg Neutrophils % Seg Neuts % (Manual) Lymphocytes % (Manual) Monocytes % (Manual) Seg Neutrophils # Seg Neutrophils # Man Lymphocytes # (Manual) Monocytes # (Manual) Heparin Anti-Xa Level POC ABG pH POC ABG pCO2 POC ABG pO2 Sodium Potassium Chloride Carbon Dioxide BUN Creatinine Glucose POC Glucose 185 H 138 H 218 H ALT Alkaline Phosphatase Total Creatine Kinase CK-MB (CK-2) CK-MB (CK-2) Rel Index Troponin T C-Reactive Protein Albumin 03/25/17 03/25/17 03/25/17 04:38 04:38 05:24 WBC RBC 3.27 L Hgb 9.3 L Hct 29.8 L RDW 18.4 H Lymph % (Auto) [place] % (Auto) Lymph # [place] # Seg Neutrophils % Seg Neuts % (Manual) 78.0 H Lymphocytes % (Manual) 10.0 L Monocytes % (Manual) 9.0 H Seg Neutrophils # Seg Neutrophils # Man Lymphocytes # (Manual) 0.8 L Monocytes # (Manual) Heparin Anti-Xa Level POC ABG pH POC ABG pCO2 POC ABG pO2 Sodium 136 L Potassium Chloride 92.5 L Carbon Dioxide 17 L BUN 124 H Creatinine 9.7 H Glucose 217 H POC Glucose 211 H ALT Alkaline Phosphatase Total Creatine Kinase CK-MB (CK-2) CK-MB (CK-2) Rel Index Troponin T C-Reactive Protein Albumin 03/25/17 03/25/17 03/25/17 11:53 17:15 20:12 WBC RBC Hgb Hct RDW Lymph % (Auto) [place] % (Auto) Lymph # [place] # Seg Neutrophils % Seg Neuts % (Manual) Lymphocytes % (Manual) Monocytes % (Manual) Seg Neutrophils # Seg Neutrophils # Man Lymphocytes # (Manual) Monocytes # (Manual) Heparin Anti-Xa Level POC ABG pH 7.469 H POC ABG pCO2 POC ABG pO2 69 L Sodium Potassium Chloride Carbon Dioxide BUN Creatinine Glucose POC Glucose 165 H 173 H ALT Alkaline Phosphatase Total Creatine Kinase CK-MB (CK-2) CK-MB (CK-2) Rel Index Troponin T C-Reactive Protein Albumin 03/25/17 03/26/17 03/26/17 23:32 05:59 06:03 WBC RBC Hgb Hct RDW Lymph % (Auto) [place] % (Auto) Lymph # [place] # Seg Neutrophils % Seg Neuts % (Manual) Lymphocytes % (Manual) Monocytes % (Manual) Seg Neutrophils # Seg Neutrophils # Man Lymphocytes # (Manual) Monocytes # (Manual) Heparin Anti-Xa Level POC ABG pH POC ABG pCO2 POC ABG pO2 Sodium 136 L Potassium Chloride 91.6 L Carbon Dioxide 20 L BUN 97 H Creatinine 8.0 H Glucose 239 H POC Glucose 231 H 214 H ALT Alkaline Phosphatase Total Creatine Kinase CK-MB (CK-2) CK-MB (CK-2) Rel Index Troponin T C-Reactive Protein Albumin 03/26/17 03/26/17 03/26/17 12:55 18:14 23:27 WBC RBC Hgb Hct RDW Lymph % (Auto) [place] % (Auto) Lymph # [place] # Seg Neutrophils % Seg Neuts % (Manual) Lymphocytes % (Manual) Monocytes % (Manual) Seg Neutrophils # Seg Neutrophils # Man Lymphocytes # (Manual) Monocytes # (Manual) Heparin Anti-Xa Level POC ABG pH POC ABG pCO2 POC ABG pO2 Sodium Potassium Chloride Carbon Dioxide BUN Creatinine Glucose POC Glucose 220 H 236 H 221 H ALT Alkaline Phosphatase Total Creatine Kinase CK-MB (CK-2) CK-MB (CK-2) Rel Index Troponin T C-Reactive Protein Albumin 03/27/17 03/27/17 03/27/17 00:58 04:00 04:00 WBC 12.9 H RBC 3.33 L Hgb 9.2 L Hct 29.0 L RDW 18.0 H Lymph % (Auto) [place] % (Auto) Lymph # [place] # Seg Neutrophils % Seg Neuts % (Manual) 78.0 H Lymphocytes % (Manual) 13.0 L Monocytes % (Manual) Seg Neutrophils # Seg Neutrophils # Man 10.1 H Lymphocytes # (Manual) Monocytes # (Manual) Heparin Anti-Xa Level POC ABG pH POC ABG pCO2 POC ABG pO2 Sodium Potassium Chloride 91.8 L Carbon Dioxide BUN 108 H Creatinine 9.0 H Glucose 237 H POC Glucose ALT Alkaline Phosphatase Total Creatine Kinase CK-MB (CK-2) CK-MB (CK-2) Rel Index Troponin T C-Reactive Protein 7.90 H Albumin 03/27/17 03/27/17 05:24 11:17 WBC RBC Hgb Hct RDW Lymph % (Auto) [place] % (Auto) Lymph # [place] # Seg Neutrophils % Seg Neuts % (Manual) Lymphocytes % (Manual) Monocytes % (Manual) Seg Neutrophils # Seg Neutrophils # Man Lymphocytes # (Manual) Monocytes # (Manual) Heparin Anti-Xa Level POC ABG pH POC ABG pCO2 POC ABG pO2 Sodium Potassium Chloride Carbon Dioxide BUN Creatinine Glucose POC Glucose 231 H 172 H ALT Alkaline Phosphatase Total Creatine Kinase CK-MB (CK-2) CK-MB (CK-2) Rel Index Troponin T C-Reactive Protein Albumin Chest x-ray: image reviewed Allied health notes reviewed: RT
[2017-03-27] MEDS: PROCRIT IV PRN (14:23)
[2017-03-27] MEDS: PLAVIX PO SCH (14:32)
[2017-03-27] MEDS: PEPCID PO SCH (14:32)
[2017-03-27] MEDS: MAXIPIME 0.5 GM in NACL 0.9% 100 ML IV SCH (14:33)
[2017-03-27] MEDS: LEVEMIR SUB-Q SCH (15:26)
--- NOTE | 2017-03-27 19:01 | Progress Note ---
Assessment and Plan Assessment and plan: 66-year-old female presents to the emergency department complaining of chest pain after dialysis. While in triage, the patient went unresponsive, and without a pulse, No palpable pulses were identified. Patient was placed on a patient monitor and ventricular fibrillation was noted. Patient was defibrillated a single time with 200 J. She received CPR protocol, was intubated and had ROSC, and she was then taken to the ICU. Postarrest ECG was consistent with anterior STEMI. Code STEMI was activated, she was taken to cardiac cath tech and received angiogram ; stent x 2 in LAD noted to be patent, but had distal LAD spasm Cardiovascular cardiac arrest; Vfib, STEMI, ACS, Distal LAD spasm, cardiogenic shock Cardiology input appreciated, status post cath with patent stents she was rx with amio drip, received heparin ggt x 24 hours, received Dopamine drip for Cardiogenic shock and hypotension,now improved; currently on Lopressor for rate control and now hypertensive -Hypertension. continue antihypertensive medications -Hyperlipidemia- Continue statin therapy Pulmonary Acute hypoxic respiratory failure, mech vent >96 hours Status post extubation 03/24/17, continue oxygen supplementation and noninvasive positive pressure ventilation as needed Speech therapy evaluation, PT evaluation GI Nausea/Vomiting- Start on zofran, now resolved Dysphagia; aspiration with all consistencies; ST input appreicated, continue speech therapy Toxic metabolic encephalopathy EEG was reviewed, seizure is unlikely. encephalopathy most likely due to acute illness, cardiogenic shock, cardiac arrest and IV sedation now improved, Neurology input appreciated ID Sepsis syndrome; ID consult appreciated, Continue current empiric therapy. Follow clinically for localizing issues., trachial aspirate cx, NGTD WBC count is slowly downtrending, continue abx till 03/29/17 RENAL/FEN End stage renal disease on hemodialysis. Nephrology following. Continue hemodialysis Hyperkalemia-corrected with dialysis Complete immobility due to frailty PT consult, patient will need SNIF placement Severe malnutrition brick setter consult appreciated, continue tube feeds, continue speech therapy for dysphagia Diabetes mellitus type 2. Accu-Cheks and sliding scale insulin. Morbid obesity- will auto club travel counselor when clinically improved about lifestyle modification Anemia of CKD. Follow H&H. Transfuse as necessary. History of breast cancer. 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 The aggregate critical care time was [35] minutes. This time is in addition to time spent performing reported procedures but includes the following: [x] Data Review and interpretation [x] Patient assessment and monitoring of vital signs [x] Documentation [x] Medication orders and management History Interval history: , she admits some throat discomfort, and feels ok, denies sob, feels very weak and tired Hospitalist Physical - Physical exam Narrative exam: General: Patient appears well in no distress, HEENT: MMM, EOMI, weak voice cardiac: S1-S2 heard lungs: clear to auscultation, abdomen: soft, nontender, nondistended bowel sounds positive extremities: no edema clubbing or cyanosis Skin: no rash or lesion Neuro: AAOx3, moves all extremities, obeys commands, generalized weakness - Constitutional Vitals: Temp Pulse Resp BP Pulse Ox 98.3 F 84 17 152/67 98 03/27/17 16:00 03/27/17 17:48 03/27/17 17:00 03/27/17 17:48 03/27/17 17:00 General appearance: Present: no acute distress, obese Results - Labs CBC & Chem 7: 03/27/17 04:00 03/27/17 04:00 Labs: Laboratory Last Values WBC 12.9 K/mm3 (4.5-11.0) H 03/27/17 04:00 RBC 3.33 M/mm3 (3.65-5.03) L 03/27/17 04:00 Hgb 9.2 gm/dl (10.1-14.3) L 03/27/17 04:00 Hct 29.0 % (30.3-42.9) L 03/27/17 04:00 MCV 87 fl (79-97) D 03/27/17 04:00 MCH 28 pg (28-32) 03/27/17 04:00 MCHC 32 % (30-34) 03/27/17 04:00 RDW 18.0 % (13.2-15.2) H 03/27/17 04:00 Plt Count 251 K/mm3 (140-440) 03/27/17 04:00 Lymph % (Auto) Laser Beam Machine Operator 03/25/17 04:38 [place] % (Auto) Laser Beam Machine Operator 03/25/17 04:38 Eos % (Auto) Laser Beam Machine Operator 03/25/17 04:38 Baso % (Auto) Laser Beam Machine Operator 03/25/17 04:38 Lymph # Laser Beam Machine Operator 03/25/17 04:38 [place] # Laser Beam Machine Operator 03/25/17 04:38 Eos # Laser Beam Machine Operator 03/25/17 04:38 Baso # Laser Beam Machine Operator 03/25/17 04:38 Add Manual Diff Complete 03/27/17 04:00 Total Counted 100 03/27/17 04:00 Seg Neutrophils % Laser Beam Machine Operator 03/25/17 04:38 Seg Neuts % (Manual) 78.0 % (40.0-70.0) H 03/27/17 04:00 Band Neutrophils % 1.0 % 03/27/17 04:00 Lymphocytes % (Manual) 13.0 % (13.4-35.0) L 03/27/17 04:00 Reactive Lymphs % (Man) 0 % 03/27/17 04:00 Monocytes % (Manual) 6.0 % (0.0-7.3) 03/27/17 04:00 Eosinophils % (Manual) 2.0 % (0.0-4.3) 03/27/17 04:00 Basophils % (Manual) 0 % (0.0-1.8) 03/27/17 04:00 Metamyelocytes % 0 % 03/27/17 04:00 Myelocytes % 0 % 03/27/17 04:00 Promyelocytes % 0 % 03/27/17 04:00 Blast Cells % 0 % 03/27/17 04:00 Nucleated RBC % Not Reportable 03/27/17 04:00 Seg Neutrophils # Laser Beam Machine Operator 03/25/17 04:38 Seg Neutrophils # Man 10.1 K/mm3 (1.8-7.7) H 03/27/17 04:00 Band Neutrophils # 0.1 K/mm3 03/27/17 04:00 Lymphocytes # (Manual) 1.7 K/mm3 (1.2-5.4) 03/27/17 04:00 Abs React Lymphs (Man) 0.0 K/mm3 03/27/17 04:00 Monocytes # (Manual) 0.8 K/mm3 (0.0-0.8) 03/27/17 04:00 Eosinophils # (Manual) 0.3 K/mm3 (0.0-0.4) 03/27/17 04:00 Basophils # (Manual) 0.0 K/mm3 (0.0-0.1) 03/27/17 04:00 Metamyelocytes # 0.0 K/mm3 03/27/17 04:00 Myelocytes # 0.0 K/mm3 03/27/17 04:00 Promyelocytes # 0.0 K/mm3 03/27/17 04:00 Blast Cells # 0.0 K/mm3 03/27/17 04:00 WBC Morphology Not Reportable 03/27/17 04:00 Hypersegmented Neuts Not Reportable 03/27/17 04:00 Hyposegmented Neuts Not Reportable 03/27/17 04:00 Hypogranular Neuts Not Reportable 03/27/17 04:00 Smudge Cells Not Reportable 03/27/17 04:00 Toxic Granulation Not Reportable 03/27/17 04:00 Toxic Vacuolation Not Reportable 03/27/17 04:00 Dohle Bodies Not Reportable 03/27/17 04:00 Pelger-Huet Anomaly Not Reportable 03/27/17 04:00 Tunde Rods Not Reportable 03/27/17 04:00 Platelet Estimate Consistent w auto 03/27/17 04:00 Clumped Platelets Not Reportable 03/27/17 04:00 Plt Clumps, EDTA Not Reportable 03/27/17 04:00 Large Platelets Not Reportable 03/27/17 04:00 Giant Platelets Not Reportable 03/27/17 04:00 Platelet Satelliting Not Reportable 03/27/17 04:00 Plt Morphology Comment Not Reportable 03/27/17 04:00 RBC Morphology Not Reportable 03/27/17 04:00 Dimorphic RBCs Not Reportable 03/27/17 04:00 Polychromasia Few 03/27/17 04:00 Hypochromasia Not Reportable 03/27/17 04:00 Poikilocytosis Not Reportable 03/27/17 04:00 Anisocytosis Not Reportable 03/27/17 04:00 Microcytosis Not Reportable 03/27/17 04:00 Macrocytosis Not Reportable 03/27/17 04:00 Spherocytes Not Reportable 03/27/17 04:00 Pappenheimer Bodies Not Reportable 03/27/17 04:00 Sickle Cells Not Reportable 03/27/17 04:00 Target Cells Not Reportable 03/27/17 04:00 Tear Drop Cells Not Reportable 03/27/17 04:00 Ovalocytes Not Reportable 03/27/17 04:00 Helmet Cells Not Reportable 03/27/17 04:00 [place] Bodies Not Reportable 03/27/17 04:00 [place] Rings Not Reportable 03/27/17 04:00 [place] Cells Not Reportable 03/27/17 04:00 Bite Cells Not Reportable 03/27/17 04:00 Crenated Cell Not Reportable 03/27/17 04:00 Elliptocytes Not Reportable 03/27/17 04:00 Acanthocytes (Spur) Not Reportable 03/27/17 04:00 Rouleaux Not Reportable 03/27/17 04:00 Hemoglobin C Crystals Not Reportable 03/27/17 04:00 Schistocytes Not Reportable 03/27/17 04:00 Malaria parasites Not Reportable 03/27/17 04:00 [place] Bodies Not Reportable 03/27/17 04:00 Hem Pathologist Commnt No 03/27/17 04:00 PT 13.4 Sec. (12.2-14.9) 03/16/17 11:07 INR 1.03 (0.87-1.13) 03/16/17 11:07 APTT 24.1 Sec. (24.2-36.6) L 03/16/17 11:07 Activated Clotting Time 125 (74-137) 03/17/17 08:23 Heparin Anti-Xa Level < 0.10 U.I./ml (0.3-0.7) L 03/17/17 21:12 POC ABG pH 7.469 (7.35-7.45) H 03/25/17 20:12 POC ABG pCO2 36.2 (35-45) 03/25/17 20:12 POC ABG pO2 69 (80-105) L 03/25/17 20:12 POC ABG HCO3 26.2 03/25/17 20:12 POC ABG Total CO2 27 03/25/17 20:12 POC ABG O2 Sat 95 03/25/17 20:12 POC ABG Base Excess 3 03/25/17 20:12 FiO2 30 % 03/25/17 20:12 Sodium 137 mmol/L (137-145) 03/27/17 04:00 Potassium 4.4 mmol/L (3.6-5.0) 03/27/17 04:00 Chloride 91.8 mmol/L (98-107) L 03/27/17 04:00 Carbon Dioxide 22 mmol/L (22-30) 03/27/17 04:00 Anion Gap 28 mmol/L 03/27/17 04:00 BUN 108 mg/dL (7-17) H 03/27/17 04:00 Creatinine 9.0 mg/dL (0.7-1.2) H 03/27/17 04:00 Estimated GFR 5 ml/min 03/27/17 04:00 BUN/Creatinine Ratio 12.00 % 03/27/17 04:00 Glucose 237 mg/dL (65-100) H 03/27/17 04:00 POC Glucose 223 (70-105) H 03/27/17 17:40 Lactic Acid 1.50 mmol/L (0.7-2.0) 03/27/17 00:58 Calcium 9.7 mg/dL (8.4-10.2) 03/27/17 04:00 Total Bilirubin 0.50 mg/dL (0.1-1.2) 03/21/17 07:45 AST 23 units/L (5-40) 03/21/17 07:45 ALT 40 units/L (7-56) 03/21/17 07:45 Alkaline Phosphatase 244 units/L (35-129) H 03/21/17 07:45 Ammonia 38.0 umol/L (25-60) 03/18/17 19:02 Total Creatine Kinase 282 units/L (30-135) H 03/16/17 16:36 CK-MB (CK-2) 24.2 ng/mL (0.0-4.0) H 03/16/17 16:36 CK-MB (CK-2) Rel Index 8.5 (0-4) H 03/16/17 16:36 Troponin T 0.656 ng/mL (0.00-0.029) H* D 03/16/17 16:36 C-Reactive Protein 7.90 mg/dL (0.00-1.30) H 03/27/17 00:58 Total Protein 7.3 g/dL (6.3-8.2) 03/21/17 07:45 Albumin 2.8 g/dL (3.9-5) L 03/21/17 07:45 Albumin/Globulin Ratio 0.6 % 03/21/17 07:45 Triglycerides 134 mg/dL (2-149) 03/16/17 11:07 Cholesterol 228 mg/dL (50-199) H 03/16/17 11:07 LDL Cholesterol Direct 165 mg/dL (50-130) H 03/16/17 11:07 HDL Cholesterol 37 mg/dL (40-59) L 03/16/17 11:07 Cholesterol/HDL Ratio 6.16 % 03/16/17 11:07 TSH 0.746 mlU/mL (0.270-4.200) 03/18/17 19:02 Random Vancomycin 20.9 ug/mL (0-40.0) 03/22/17 07:40 Hepatitis A IgM Ab Non-reactive (NonReactive) 03/19/17 04:31 Hep Bs Antigen Non-reactive (Negative) 03/19/17 04:31 Hep B Core IgM Ab Non-reactive (NonReactive) 03/19/17 04:31 Hepatitis C Antibody Non-reactive (NonReactive) 03/19/17 04:31 Blood Type A POSITIVE 03/16/17 16:36 Antibody Screen TNR 03/16/17 16:36 CLAIR Antibody Screen Negative 03/16/17 16:36
[2017-03-28] MEDS: FLAGYL 500 MG/100 ML 500 MG/100 ML BAG IV SCH ×3 (00:08→16:33)
[2017-03-28] MEDS: DUONEB *Not for PRN Use IH SCH ×4 (01:27→19:35)
[2017-03-28] MEDS: LOPRESSOR PO SCH ×3 (04:00→16:23)
[2017-03-28] MEDS: HEPARIN SUB-Q SCH ×3 (05:56→22:16)
--- NOTE | 2017-03-28 09:11 | Progress Note ---
Assessment and Plan Currently stable cardiac status. Cont present cardiac management. The patient has been seen in conjunction with Dr. XIOMARA Mancera who agrees with the assessment and plan of care. - Patient Problems (1) Acute hypoxemic respiratory failure Current Visit: Yes Status: Resolved (2) Cardiac arrest Current Visit: Yes Status: Acute (3) Cardiac arrest due to underlying cardiac condition Current Visit: Yes Status: Acute (4) ESRD on dialysis Current Visit: Yes Status: Acute (5) Obesity (BMI 30-39.9) Current Visit: Yes Status: Chronic (6) STEMI (ST elevation myocardial infarction) Current Visit: Yes Status: Acute Qualifiers: Involved coronary artery: LAD Qualified Code(s): I21.3 - anterior ST elevation (STEMI) myocardial infarction - s/p PCI of LAD (7) Seizure Current Visit: Yes Status: Acute (8) Sepsis syndrome Current Visit: Yes Status: Acute (9) Aortic stenosis Current Visit: Yes Status: Chronic Qualifiers: Cardiac valve disease etiology: C (10) Pulmonary HTN Current Visit: Yes Status: Chronic (11) CVA (cerebral vascular accident) Current Visit: No Status: Acute Qualifiers: CVA mechanism: C Precerebral and cerebral artery: P Laterality of affected vessel: L (12) Kidney stone Current Visit: No Status: Chronic (13) Rectal bleed Current Visit: No Status: Acute (14) UTI (urinary tract infection) Current Visit: No Status: Acute Qualifiers: Urinary tract infection type: U Hematuria presence: H Indwelling urinary catheter type: I Encounter type: E (15) Hypertension Current Visit: No Status: Chronic Qualifiers: Hypertension type: H (16) Type 2 diabetes mellitus Current Visit: No Status: Chronic Qualifiers: Diabetes mellitus complication status: D Diabetes mellitus complication detail: D Diabetic retinopathy severity: D Proliferative retinopathy type: P Diabetes mellitus macular edema: D Diabetes mellitus longterm insulin use : D Laterality: L Chronic kidney disease stage: C Subjective Date of service: 03/28/17 Principal diagnosis: Acute Hypoxemic Resp Failure; STEMI Interval history: Pt resting in bed, NAD. Nods head appropriately to questions. No complaints. VSS. Objective Last Vital Signs Temp 98.6 F 03/28/17 08:00 Pulse 77 03/28/17 09:00 Resp 30 H 03/28/17 09:00 BP 99/57 03/28/17 09:00 Pulse Ox 92 03/28/17 09:00 - Physical Examination General: Appears Well, No Apparent Distress HEENT: Positive: Normocephaly, Mucus Membranes Moist Neck: Positive: neck supple, trachea midline Cardiac: Positive: Reg Rate and Rhythm, S1/S2 Lungs: Positive: clear to auscultation Neuro: Positive: Grossly Intact Abdomen: Positive: Soft, Active Bowel Sounds Skin: Negative: Clear, Rash Musculoskeletal: No Fluid Collection, No Pain, Normal Range of Motion Extremities: Present: upper extr. pulses, lower extr. pulses. Absent: edema - Imaging and Cardiology EKG: report reviewed, image reviewed Echo: report reviewed - Telemetry EKG Rhythm: Sinus Rhythm - EKG Sinus rhythms and dysrhythmias: sinus rhythm Myocardial infarction: inferior DC (acute or rec, anterior DC (acute or rec - Allied health notes Allied health notes reviewed: RT
--- NOTE | 2017-03-28 09:17 | Progress Note ---
Subjective Principal diagnosis: Acute Hypoxemic Resp Failure; STEMI Interval history: Patient was seen today for follow-up and multiple renal-related issues patient tolerated her hemodialysis treatment very well She denies any complaints of chest pain pressure or shortness of breath is better Ultrafiltration goal was increased yesterday as tolerated Social history: Reviewed Family history: Reviewed Allergies: Reviewed Physical examination Vitals reviewed HEENT: Mild pallor no icterus Neck: Supple no JVD Chest: Few basilar crackles but better Heart: Regular rate and rhythm Abdomen soft nontender no renal bruit no CVA tenderness Extremity: Mild edema dry skin Neurology: She is alert awake and does follow some commands Assessment and plan End-stage renal disease patient is currently on maintenance hemodialysis, monitor labs periodically Patient will need to be dialyzed today and be on schedule Saturday and Saturday May need to increase ultrafiltration goal between 3-4 kg as tolerated with a cooler dialysate and albumin support if needed Anemia in end-stage renal disease to follow /she is currently on erythropoietin 10,000 units every dialysis treatment Respiratory status why she's doing much better /she is stable Status post cardiac arrest with V. fib ST elevation VT distal LAD spasm with cardiogenic shock clinically improving followed by cardiology Currently on tube feeding patient needs high protein diet preferably 1.5 g per KG body weight nutrition needs to follow Secondary hyperparathyroidism to monitor periodically We'll consider hemodialysis tomorrow morning as she appears to be doing better family has been kept informed about renal related issues as well as dialysis, primarily her daughter she has good understanding about all the renal related issues all questions have been answered to her, I did meet with her yesterday and also a few days ago Overall prognosis remains guarded at this point Objective - Vital Signs Vital signs: Vital Signs - 12hr 03/27/17 03/27/17 03/27/17 21:19 21:56 22:00 Temperature Pulse Rate 70 75 Pulse Rate [ Anterior Bilateral Throughout] Pulse Rate [ Bilateral Femoral] Pulse Rate [ Right Radial] Respiratory 30 H Rate Respiratory Rate [Anterior Bilateral Throughout] Blood Pressure 107/55 113/56 O2 Sat by Pulse 98 99 Oximetry 03/27/17 03/27/17 03/27/17 22:21 23:00 23:21 Temperature Pulse Rate 68 67 64 Pulse Rate [ Anterior Bilateral Throughout] Pulse Rate [ Bilateral Femoral] Pulse Rate [ Right Radial] Respiratory 23 17 20 Rate Respiratory Rate [Anterior Bilateral Throughout] Blood Pressure 113/56 111/49 111/49 O2 Sat by Pulse 100 100 100 Oximetry 03/28/17 03/28/17 03/28/17 00:00 01:00 01:27 Temperature 99.2 F Pulse Rate 63 65 Pulse Rate [ 62 Anterior Bilateral Throughout] Pulse Rate [ Bilateral Femoral] Pulse Rate [ Right Radial] Respiratory 19 20 Rate Respiratory 17 Rate [Anterior Bilateral Throughout] Blood Pressure 107/44 98/42 O2 Sat by Pulse 99 Oximetry 03/28/17 03/28/17 03/28/17 01:38 02:00 03:00 Temperature Pulse Rate 63 70 Pulse Rate [ 64 Anterior Bilateral Throughout] Pulse Rate [ Bilateral Femoral] Pulse Rate [ Right Radial] Respiratory 16 25 H Rate Respiratory 19 Rate [Anterior Bilateral Throughout] Blood Pressure 103/43 89/36 O2 Sat by Pulse 99 91 Oximetry 03/28/17 03/28/17 03/28/17 04:00 05:00 06:00 Temperature 99.6 F Pulse Rate 71 70 70 Pulse Rate [ Anterior Bilateral Throughout] Pulse Rate [ Bilateral Femoral] Pulse Rate [ Right Radial] Respiratory 27 H 26 H 19 Rate Respiratory Rate [Anterior Bilateral Throughout] Blood Pressure 86/36 114/49 114/49 O2 Sat by Pulse 97 95 94 Oximetry 03/28/17 03/28/17 03/28/17 06:43 07:00 08:00 Temperature 98.6 F Pulse Rate 71 71 76 Pulse Rate [ 77 Anterior Bilateral Throughout] Pulse Rate [ 70 Bilateral Femoral] Pulse Rate [ 70 Right Radial] Respiratory 28 H 28 H Rate Respiratory 30 H Rate [Anterior Bilateral Throughout] Blood Pressure 113/54 105/47 O2 Sat by Pulse 96 92 Oximetry 03/28/17 03/28/17 03/28/17 08:29 08:30 09:00 Temperature Pulse Rate 77 Pulse Rate [ 78 Anterior Bilateral Throughout] Pulse Rate [ Bilateral Femoral] Pulse Rate [ Right Radial] Respiratory 30 H Rate Respiratory 30 H Rate [Anterior Bilateral Throughout] Blood Pressure 99/57 O2 Sat by Pulse 96 92 Oximetry 03/28/17 09:10 Temperature Pulse Rate 70 Pulse Rate [ Anterior Bilateral Throughout] Pulse Rate [ Bilateral Femoral] Pulse Rate [ Right Radial] Respiratory Rate Respiratory Rate [Anterior Bilateral Throughout] Blood Pressure O2 Sat by Pulse Oximetry - Lab 03/27/17 04:00 03/27/17 04:00 Most recent lab results Calcium 9.7 mg/dL (8.4-10.2) 03/27/17 04:00
--- NOTE | 2017-03-28 11:20 | XRay Report ---
SUPINE KUB: History: Dobbhoff tube placement. The abdominal gas pattern is unremarkable. No masses or organomegaly is identified and there is no gross evidence of free air or fluid. No significant soft tissue calcifications are noted. Previous ventral wall hernia repair changes and cholecystectomy changes are noted. The feeding tube terminates in the fundus of the stomach. IMPRESSION: Feeding tube as described. No acute process.
[2017-03-28] MEDS: LEVEMIR SUB-Q SCH (11:43)
[2017-03-28] MEDS: MAXIPIME 0.5 GM in NACL 0.9% 100 ML IV SCH (11:44)
[2017-03-28] MEDS: PLAVIX PO SCH (11:45)
[2017-03-28] MEDS: PEPCID PO SCH (11:45)
--- NOTE | 2017-03-28 13:18 | Progress Note ---
Assessment and Plan - Patient Problems (1) Acute hypoxemic respiratory failure Current Visit: Yes Status: Resolved Plan to address problem: - will continue aspiration precautions - will continue bronchodilators and pulmonary toilet - continue to wean oxygen for sats > 94% - continue to use BIPAP scheduled qhs and prn daytime - continue HD/UF for toxin and volume clearance - prn ABG's to evaluate for hypercapnia - CXR reviewed and no acute process (2) ESRD on dialysis Current Visit: Yes Status: Acute Plan to address problem: - continue HD/UF per nephrology prescription - oliguric (3) Obesity (BMI 30-39.9) Current Visit: Yes Status: Chronic Plan to address problem: - weight loss - outpatient sleep clinic evaluation (4) Sepsis syndrome Current Visit: Yes Status: Acute Plan to address problem: - begin empiric AB's - get ID consultation - wean dopamine for MAP > 65mmHg - CRP significantly improved - complete empiric AB's dose (flagyl to end tomorrow) (5) STEMI (ST elevation myocardial infarction) Current Visit: Yes Status: Acute Qualifiers: Involved coronary artery: unspecified coronary artery Qualified Code(s): I21.3 - ST elevation (STEMI) myocardial infarction of unspecified site Plan to address problem: - on SQ heparin now for VTE prophylaxis - clinically improved - on plavix - cardiology on case and managing (will defer otherwise) (6) Type 2 diabetes mellitus Current Visit: No Status: Chronic Qualifiers: Diabetes mellitus complication status: D Diabetes mellitus complication detail: D Diabetic retinopathy severity: D Proliferative retinopathy type: P Diabetes mellitus macular edema: D Diabetes mellitus inspector outside production insulin use : D Laterality: L Chronic kidney disease stage: C Plan to address problem: - continue SSI for glycemic control (7) Discharge planning issues Current Visit: Yes Status: Acute Plan to address problem: - Roxi's clinical status is equivocal really; she is very weak and still lethargic; hemodynamically she is more stable; i will get her up in a chair and discuss with cardiology with a plan to transfer to telemetry if a bed is available ....will re-evaluate in am & prn Subjective Date of service: 03/28/17 Principal diagnosis: Acute Hypoxemic Resp Failure; STEMI Interval history: Seen and examined at bedside; 24 hour events reviewed; nursing and respiratory care staff consulted; no adverse overnight events reported to me; bordering between lethargy and somnolence at this point; she is clearer in her speech but still week; was able to stay off BIPAP the whole day yesterday; denies N/V/F/C Objective Vital Signs - 12hr 03/28/17 03/28/17 03/28/17 01:27 01:38 02:00 Temperature Pulse Rate 63 Pulse Rate [ 62 64 Anterior Bilateral Throughout] Pulse Rate [ Bilateral Femoral] Pulse Rate [ Right Radial] Respiratory 16 Rate Respiratory 17 19 Rate [Anterior Bilateral Throughout] Blood Pressure 103/43 O2 Sat by Pulse 99 Oximetry 03/28/17 03/28/17 03/28/17 03:00 04:00 05:00 Temperature 99.6 F Pulse Rate 70 71 70 Pulse Rate [ Anterior Bilateral Throughout] Pulse Rate [ Bilateral Femoral] Pulse Rate [ Right Radial] Respiratory 25 H 27 H 26 H Rate Respiratory Rate [Anterior Bilateral Throughout] Blood Pressure 89/36 86/36 114/49 O2 Sat by Pulse 91 97 95 Oximetry 03/28/17 03/28/17 03/28/17 06:00 06:43 07:00 Temperature Pulse Rate 70 71 71 Pulse Rate [ Anterior Bilateral Throughout] Pulse Rate [ Bilateral Femoral] Pulse Rate [ Right Radial] Respiratory 19 28 H Rate Respiratory Rate [Anterior Bilateral Throughout] Blood Pressure 114/49 113/54 O2 Sat by Pulse 94 96 Oximetry 03/28/17 03/28/17 03/28/17 08:00 08:29 08:30 Temperature 98.6 F Pulse Rate 76 Pulse Rate [ 77 78 Anterior Bilateral Throughout] Pulse Rate [ 70 Bilateral Femoral] Pulse Rate [ 70 Right Radial] Respiratory 28 H Rate Respiratory 30 H 30 H Rate [Anterior Bilateral Throughout] Blood Pressure 105/47 O2 Sat by Pulse 92 96 Oximetry 03/28/17 03/28/17 09:00 09:10 Temperature Pulse Rate 77 70 Pulse Rate [ Anterior Bilateral Throughout] Pulse Rate [ Bilateral Femoral] Pulse Rate [ Right Radial] Respiratory 30 H Rate Respiratory Rate [Anterior Bilateral Throughout] Blood Pressure 99/57 O2 Sat by Pulse 92 Oximetry Constitutional: no acute distress, lethargic Eyes: non-icteric ENT: oropharynx moist Neck: supple, no lymphadenopathy, no JVD Effort: mildly labored Ascultation: Bilateral: clear, diminished breath sounds Cardiovascular: regular rate and rhythm Gastrointestinal: normoactive bowel sounds, soft, non-tender, non-distended Integumentary: normal, other (Femoral CVC) Extremities: no cyanosis, no edema, pulses normal, no ischemia or petechiae Neurologic: normal mental status, non-focal exam (Moves all extremities, tracks my voice, attempts to vocalize in response to questions), pupils equal and round , motor strength normal and, other (very weak) Psychiatric: mood appropriate, affect normal, depressed CBC and BMP: 03/27/17 04:00 03/27/17 04:00 ABG, PT/INR, D-dimer: ABG POC ABG pH 7.469 (7.35-7.45) H 03/25/17 20:12 POC ABG pCO2 36.2 (35-45) 03/25/17 20:12 POC ABG pO2 69 (80-105) L 03/25/17 20:12 POC ABG HCO3 26.2 03/25/17 20:12 POC ABG Total CO2 27 03/25/17 20:12 POC ABG O2 Sat 95 03/25/17 20:12 PT/INR, D-dimer PT 13.4 Sec. (12.2-14.9) 03/16/17 11:07 INR 1.03 (0.87-1.13) 03/16/17 11:07 Abnormal lab findings: Abnormal Labs 03/16/17 03/16/17 03/17/17 16:36 18:00 03:42 WBC 20.6 H RBC Hgb Hct RDW 17.3 H Lymph % (Auto) [place] % (Auto) Lymph # [place] # Seg Neutrophils % Seg Neuts % (Manual) 84.0 H Lymphocytes % (Manual) 3.0 L Monocytes % (Manual) 11.0 H Seg Neutrophils # Seg Neutrophils # Man 17.3 H Lymphocytes # (Manual) 0.6 L Monocytes # (Manual) 2.3 H Heparin Anti-Xa Level POC ABG pH 7.336 L POC ABG pCO2 47.9 H POC ABG pO2 189 H Sodium Potassium Chloride Carbon Dioxide BUN Creatinine Glucose POC Glucose ALT Alkaline Phosphatase Total Creatine Kinase 282 H CK-MB (CK-2) 24.2 H CK-MB (CK-2) Rel Index 8.5 H Troponin T 0.656 H* D C-Reactive Protein Albumin 03/17/17 03/17/17 03/17/17 03:42 04:21 17:15 WBC RBC Hgb Hct RDW Lymph % (Auto) [place] % (Auto) Lymph # [place] # Seg Neutrophils % Seg Neuts % (Manual) Lymphocytes % (Manual) Monocytes % (Manual) Seg Neutrophils # Seg Neutrophils # Man Lymphocytes # (Manual) Monocytes # (Manual) Heparin Anti-Xa Level 0.10 L POC ABG pH POC ABG pCO2 POC ABG pO2 Sodium 131 L Potassium 5.3 H D Chloride 89.5 L Carbon Dioxide 21 L BUN 39 H Creatinine 7.0 H Glucose 151 H POC Glucose ALT Alkaline Phosphatase Total Creatine Kinase CK-MB (CK-2) CK-MB (CK-2) Rel Index Troponin T C-Reactive Protein 33.90 H Albumin 03/17/17 03/18/17 03/18/17 21:12 03:33 03:33 WBC 17.6 H RBC 3.59 L Hgb Hct RDW 16.9 H Lymph % (Auto) 4.2 L [place] % (Auto) 11.8 H Lymph # 0.7 L [place] # 2.1 H Seg Neutrophils % 83.3 H Seg Neuts % (Manual) Lymphocytes % (Manual) Monocytes % (Manual) Seg Neutrophils # 14.7 H Seg Neutrophils # Man Lymphocytes # (Manual) Monocytes # (Manual) Heparin Anti-Xa Level < 0.10 L POC ABG pH POC ABG pCO2 POC ABG pO2 Sodium 127 L Potassium 6.1 H* Chloride 87.2 L Carbon Dioxide BUN 55 H Creatinine 8.7 H Glucose 140 H POC Glucose ALT Alkaline Phosphatase Total Creatine Kinase CK-MB (CK-2) CK-MB (CK-2) Rel Index Troponin T C-Reactive Protein Albumin 03/18/17 03/18/17 03/19/17 04:34 22:15 00:04 WBC RBC Hgb Hct RDW Lymph % (Auto) [place] % (Auto) Lymph # [place] # Seg Neutrophils % Seg Neuts % (Manual) Lymphocytes % (Manual) Monocytes % (Manual) Seg Neutrophils # Seg Neutrophils # Man Lymphocytes # (Manual) Monocytes # (Manual) Heparin Anti-Xa Level POC ABG pH 7.289 L POC ABG pCO2 48.7 H POC ABG pO2 Sodium Potassium 5.6 H Chloride Carbon Dioxide BUN Creatinine Glucose POC Glucose 108 H ALT Alkaline Phosphatase Total Creatine Kinase CK-MB (CK-2) CK-MB (CK-2) Rel Index Troponin T C-Reactive Protein Albumin 03/19/17 03/19/17 03/19/17 05:22 08:00 08:00 WBC 16.3 H RBC 3.15 L Hgb 8.8 L Hct 27.3 L RDW 17.4 H Lymph % (Auto) 3.4 L [place] % (Auto) 10.1 H Lymph # 0.5 L [place] # 1.7 H Seg Neutrophils % 85.4 H Seg Neuts % (Manual) Lymphocytes % (Manual) Monocytes % (Manual) Seg Neutrophils # 13.9 H Seg Neutrophils # Man Lymphocytes # (Manual) Monocytes # (Manual) Heparin Anti-Xa Level POC ABG pH POC ABG pCO2 POC ABG pO2 Sodium 131 L Potassium Chloride 89.3 L Carbon Dioxide BUN 56 H Creatinine 7.8 H Glucose 122 H POC Glucose 146 H ALT 59 H Alkaline Phosphatase 208 H Total Creatine Kinase CK-MB (CK-2) CK-MB (CK-2) Rel Index Troponin T C-Reactive Protein Albumin 2.6 L 03/19/17 03/19/17 03/19/17 08:06 11:50 17:36 WBC RBC Hgb Hct RDW Lymph % (Auto) [place] % (Auto) Lymph # [place] # Seg Neutrophils % Seg Neuts % (Manual) Lymphocytes % (Manual) Monocytes % (Manual) Seg Neutrophils # Seg Neutrophils # Man Lymphocytes # (Manual) Monocytes # (Manual) Heparin Anti-Xa Level POC ABG pH 7.338 L POC ABG pCO2 49.2 H POC ABG pO2 110 H Sodium Potassium Chloride Carbon Dioxide BUN Creatinine Glucose POC Glucose 172 H 152 H ALT Alkaline Phosphatase Total Creatine Kinase CK-MB (CK-2) CK-MB (CK-2) Rel Index Troponin T C-Reactive Protein Albumin 03/20/17 03/20/17 03/20/17 00:14 04:15 05:06 WBC RBC Hgb Hct RDW Lymph % (Auto) [place] % (Auto) Lymph # [place] # Seg Neutrophils % Seg Neuts % (Manual) Lymphocytes % (Manual) Monocytes % (Manual) Seg Neutrophils # Seg Neutrophils # Man Lymphocytes # (Manual) Monocytes # (Manual) Heparin Anti-Xa Level POC ABG pH 7.288 L POC ABG pCO2 51.4 H POC ABG pO2 Sodium Potassium Chloride Carbon Dioxide BUN Creatinine Glucose POC Glucose 132 H 166 H ALT Alkaline Phosphatase Total Creatine Kinase CK-MB (CK-2) CK-MB (CK-2) Rel Index Troponin T C-Reactive Protein Albumin 03/20/17 03/20/17 03/20/17 12:07 15:45 17:41 WBC RBC Hgb Hct RDW Lymph % (Auto) [place] % (Auto) Lymph # [place] # Seg Neutrophils % Seg Neuts % (Manual) Lymphocytes % (Manual) Monocytes % (Manual) Seg Neutrophils # Seg Neutrophils # Man Lymphocytes # (Manual) Monocytes # (Manual) Heparin Anti-Xa Level POC ABG pH POC ABG pCO2 POC ABG pO2 Sodium Potassium Chloride Carbon Dioxide BUN Creatinine Glucose POC Glucose 193 H 172 H 156 H ALT Alkaline Phosphatase Total Creatine Kinase CK-MB (CK-2) CK-MB (CK-2) Rel Index Troponin T C-Reactive Protein Albumin 03/20/17 03/21/17 03/21/17 23:13 04:42 05:41 WBC RBC Hgb Hct RDW Lymph % (Auto) [place] % (Auto) Lymph # [place] # Seg Neutrophils % Seg Neuts % (Manual) Lymphocytes % (Manual) Monocytes % (Manual) Seg Neutrophils # Seg Neutrophils # Man Lymphocytes # (Manual) Monocytes # (Manual) Heparin Anti-Xa Level POC ABG pH 7.321 L POC ABG pCO2 56.8 H POC ABG pO2 73 L Sodium Potassium Chloride Carbon Dioxide BUN Creatinine Glucose POC Glucose 141 H 159 H ALT Alkaline Phosphatase Total Creatine Kinase CK-MB (CK-2) CK-MB (CK-2) Rel Index Troponin T C-Reactive Protein Albumin 03/21/17 03/21/17 03/21/17 07:45 07:45 12:16 WBC 15.1 H RBC 3.32 L Hgb 9.2 L Hct 28.9 L RDW 17.4 H Lymph % (Auto) 4.7 L [place] % (Auto) 16.0 H Lymph # 0.7 L [place] # 2.4 H Seg Neutrophils % 78.6 H Seg Neuts % (Manual) Lymphocytes % (Manual) Monocytes % (Manual) Seg Neutrophils # 11.8 H Seg Neutrophils # Man Lymphocytes # (Manual) Monocytes # (Manual) Heparin Anti-Xa Level POC ABG pH POC ABG pCO2 POC ABG pO2 Sodium Potassium Chloride 95.4 L Carbon Dioxide BUN 55 H Creatinine 6.9 H Glucose 188 H POC Glucose 226 H ALT Alkaline Phosphatase 244 H Total Creatine Kinase CK-MB (CK-2) CK-MB (CK-2) Rel Index Troponin T C-Reactive Protein Albumin 2.8 L 03/21/17 03/21/17 03/22/17 17:17 23:28 04:49 WBC RBC Hgb Hct RDW Lymph % (Auto) [place] % (Auto) Lymph # [place] # Seg Neutrophils % Seg Neuts % (Manual) Lymphocytes % (Manual) Monocytes % (Manual) Seg Neutrophils # Seg Neutrophils # Man Lymphocytes # (Manual) Monocytes # (Manual) Heparin Anti-Xa Level POC ABG pH 7.323 L POC ABG pCO2 49.5 H POC ABG pO2 77 L Sodium Potassium Chloride Carbon Dioxide BUN Creatinine Glucose POC Glucose 192 H 199 H ALT Alkaline Phosphatase Total Creatine Kinase CK-MB (CK-2) CK-MB (CK-2) Rel Index Troponin T C-Reactive Protein Albumin 03/22/17 03/22/17 03/22/17 06:13 07:40 07:40 WBC 16.4 H RBC 3.29 L Hgb 9.1 L Hct 28.4 L RDW 17.3 H Lymph % (Auto) [place] % (Auto) Lymph # [place] # Seg Neutrophils % Seg Neuts % (Manual) 73.0 H Lymphocytes % (Manual) 8.0 L Monocytes % (Manual) 14.0 H Seg Neutrophils # Seg Neutrophils # Man 12.0 H Lymphocytes # (Manual) Monocytes # (Manual) 2.3 H Heparin Anti-Xa Level POC ABG pH POC ABG pCO2 POC ABG pO2 Sodium Potassium Chloride 94.8 L Carbon Dioxide 21 L BUN 84 H Creatinine 9.4 H Glucose 188 H POC Glucose 190 H ALT Alkaline Phosphatase Total Creatine Kinase CK-MB (CK-2) CK-MB (CK-2) Rel Index Troponin T C-Reactive Protein Albumin 03/22/17 03/22/17 03/22/17 11:43 17:38 23:56 WBC RBC Hgb Hct RDW Lymph % (Auto) [place] % (Auto) Lymph # [place] # Seg Neutrophils % Seg Neuts % (Manual) Lymphocytes % (Manual) Monocytes % (Manual) Seg Neutrophils # Seg Neutrophils # Man Lymphocytes # (Manual) Monocytes # (Manual) Heparin Anti-Xa Level POC ABG pH POC ABG pCO2 POC ABG pO2 Sodium Potassium Chloride Carbon Dioxide BUN Creatinine Glucose POC Glucose 149 H 168 H 229 H ALT Alkaline Phosphatase Total Creatine Kinase CK-MB (CK-2) CK-MB (CK-2) Rel Index Troponin T C-Reactive Protein Albumin 03/23/17 03/23/17 03/23/17 05:00 05:00 05:21 WBC 14.0 H RBC 3.09 L Hgb 8.5 L Hct 27.0 L RDW 17.8 H Lymph % (Auto) [place] % (Auto) Lymph # [place] # Seg Neutrophils % Seg Neuts % (Manual) Lymphocytes % (Manual) 11.0 L Monocytes % (Manual) 13.0 H Seg Neutrophils # Seg Neutrophils # Man 9.2 H Lymphocytes # (Manual) Monocytes # (Manual) 1.8 H Heparin Anti-Xa Level POC ABG pH POC ABG pCO2 POC ABG pO2 Sodium Potassium Chloride 94.5 L Carbon Dioxide BUN 76 H Creatinine 7.5 H Glucose 192 H POC Glucose 195 H ALT Alkaline Phosphatase Total Creatine Kinase CK-MB (CK-2) CK-MB (CK-2) Rel Index Troponin T C-Reactive Protein Albumin 03/23/17 03/23/17 03/23/17 12:15 17:47 23:27 WBC RBC Hgb Hct RDW Lymph % (Auto) [place] % (Auto) Lymph # [place] # Seg Neutrophils % Seg Neuts % (Manual) Lymphocytes % (Manual) Monocytes % (Manual) Seg Neutrophils # Seg Neutrophils # Man Lymphocytes # (Manual) Monocytes # (Manual) Heparin Anti-Xa Level POC ABG pH POC ABG pCO2 POC ABG pO2 Sodium Potassium Chloride Carbon Dioxide BUN Creatinine Glucose POC Glucose 162 H 137 H 221 H ALT Alkaline Phosphatase Total Creatine Kinase CK-MB (CK-2) CK-MB (CK-2) Rel Index Troponin T C-Reactive Protein Albumin 03/24/17 03/24/17 03/24/17 05:42 08:49 08:49 WBC RBC 2.99 L Hgb 8.5 L Hct 25.9 L RDW 18.1 H Lymph % (Auto) [place] % (Auto) Lymph # [place] # Seg Neutrophils % Seg Neuts % (Manual) 83.0 H Lymphocytes % (Manual) 6.0 L Monocytes % (Manual) Seg Neutrophils # Seg Neutrophils # Man 8.5 H Lymphocytes # (Manual) 0.6 L Monocytes # (Manual) Heparin Anti-Xa Level POC ABG pH POC ABG pCO2 POC ABG pO2 Sodium Potassium Chloride 95.4 L Carbon Dioxide BUN 108 H Creatinine 9.4 H Glucose 203 H POC Glucose 216 H ALT Alkaline Phosphatase Total Creatine Kinase CK-MB (CK-2) CK-MB (CK-2) Rel Index Troponin T C-Reactive Protein Albumin 03/24/17 03/24/17 03/24/17 11:21 17:32 23:37 WBC RBC Hgb Hct RDW Lymph % (Auto) [place] % (Auto) Lymph # [place] # Seg Neutrophils % Seg Neuts % (Manual) Lymphocytes % (Manual) Monocytes % (Manual) Seg Neutrophils # Seg Neutrophils # Man Lymphocytes # (Manual) Monocytes # (Manual) Heparin Anti-Xa Level POC ABG pH POC ABG pCO2 POC ABG pO2 Sodium Potassium Chloride Carbon Dioxide BUN Creatinine Glucose POC Glucose 185 H 138 H 218 H ALT Alkaline Phosphatase Total Creatine Kinase CK-MB (CK-2) CK-MB (CK-2) Rel Index Troponin T C-Reactive Protein Albumin 03/25/17 03/25/17 03/25/17 04:38 04:38 05:24 WBC RBC 3.27 L Hgb 9.3 L Hct 29.8 L RDW 18.4 H Lymph % (Auto) [place] % (Auto) Lymph # [place] # Seg Neutrophils % Seg Neuts % (Manual) 78.0 H Lymphocytes % (Manual) 10.0 L Monocytes % (Manual) 9.0 H Seg Neutrophils # Seg Neutrophils # Man Lymphocytes # (Manual) 0.8 L Monocytes # (Manual) Heparin Anti-Xa Level POC ABG pH POC ABG pCO2 POC ABG pO2 Sodium 136 L Potassium Chloride 92.5 L Carbon Dioxide 17 L BUN 124 H Creatinine 9.7 H Glucose 217 H POC Glucose 211 H ALT Alkaline Phosphatase Total Creatine Kinase CK-MB (CK-2) CK-MB (CK-2) Rel Index Troponin T C-Reactive Protein Albumin 03/25/17 03/25/17 03/25/17 11:53 17:15 20:12 WBC RBC Hgb Hct RDW Lymph % (Auto) [place] % (Auto) Lymph # [place] # Seg Neutrophils % Seg Neuts % (Manual) Lymphocytes % (Manual) Monocytes % (Manual) Seg Neutrophils # Seg Neutrophils # Man Lymphocytes # (Manual) Monocytes # (Manual) Heparin Anti-Xa Level POC ABG pH 7.469 H POC ABG pCO2 POC ABG pO2 69 L Sodium Potassium Chloride Carbon Dioxide BUN Creatinine Glucose POC Glucose 165 H 173 H ALT Alkaline Phosphatase Total Creatine Kinase CK-MB (CK-2) CK-MB (CK-2) Rel Index Troponin T C-Reactive Protein Albumin 03/25/17 03/26/17 03/26/17 23:32 05:59 06:03 WBC RBC Hgb Hct RDW Lymph % (Auto) [place] % (Auto) Lymph # [place] # Seg Neutrophils % Seg Neuts % (Manual) Lymphocytes % (Manual) Monocytes % (Manual) Seg Neutrophils # Seg Neutrophils # Man Lymphocytes # (Manual) Monocytes # (Manual) Heparin Anti-Xa Level POC ABG pH POC ABG pCO2 POC ABG pO2 Sodium 136 L Potassium Chloride 91.6 L Carbon Dioxide 20 L BUN 97 H Creatinine 8.0 H Glucose 239 H POC Glucose 231 H 214 H ALT Alkaline Phosphatase Total Creatine Kinase CK-MB (CK-2) CK-MB (CK-2) Rel Index Troponin T C-Reactive Protein Albumin 03/26/17 03/26/17 03/26/17 12:55 18:14 23:27 WBC RBC Hgb Hct RDW Lymph % (Auto) [place] % (Auto) Lymph # [place] # Seg Neutrophils % Seg Neuts % (Manual) Lymphocytes % (Manual) Monocytes % (Manual) Seg Neutrophils # Seg Neutrophils # Man Lymphocytes # (Manual) Monocytes # (Manual) Heparin Anti-Xa Level POC ABG pH POC ABG pCO2 POC ABG pO2 Sodium Potassium Chloride Carbon Dioxide BUN Creatinine Glucose POC Glucose 220 H 236 H 221 H ALT Alkaline Phosphatase Total Creatine Kinase CK-MB (CK-2) CK-MB (CK-2) Rel Index Troponin T C-Reactive Protein Albumin 03/27/17 03/27/17 03/27/17 00:58 04:00 04:00 WBC 12.9 H RBC 3.33 L Hgb 9.2 L Hct 29.0 L RDW 18.0 H Lymph % (Auto) [place] % (Auto) Lymph # [place] # Seg Neutrophils % Seg Neuts % (Manual) 78.0 H Lymphocytes % (Manual) 13.0 L Monocytes % (Manual) Seg Neutrophils # Seg Neutrophils # Man 10.1 H Lymphocytes # (Manual) Monocytes # (Manual) Heparin Anti-Xa Level POC ABG pH POC ABG pCO2 POC ABG pO2 Sodium Potassium Chloride 91.8 L Carbon Dioxide BUN 108 H Creatinine 9.0 H Glucose 237 H POC Glucose ALT Alkaline Phosphatase Total Creatine Kinase CK-MB (CK-2) CK-MB (CK-2) Rel Index Troponin T C-Reactive Protein 7.90 H Albumin 03/27/17 03/27/17 03/27/17 05:24 11:17 17:40 WBC RBC Hgb Hct RDW Lymph % (Auto) [place] % (Auto) Lymph # [place] # Seg Neutrophils % Seg Neuts % (Manual) Lymphocytes % (Manual) Monocytes % (Manual) Seg Neutrophils # Seg Neutrophils # Man Lymphocytes # (Manual) Monocytes # (Manual) Heparin Anti-Xa Level POC ABG pH POC ABG pCO2 POC ABG pO2 Sodium Potassium Chloride Carbon Dioxide BUN Creatinine Glucose POC Glucose 231 H 172 H 223 H ALT Alkaline Phosphatase Total Creatine Kinase CK-MB (CK-2) CK-MB (CK-2) Rel Index Troponin T C-Reactive Protein Albumin 03/27/17 03/28/17 23:49 05:40 WBC RBC Hgb Hct RDW Lymph % (Auto) [place] % (Auto) Lymph # [place] # Seg Neutrophils % Seg Neuts % (Manual) Lymphocytes % (Manual) Monocytes % (Manual) Seg Neutrophils # Seg Neutrophils # Man Lymphocytes # (Manual) Monocytes # (Manual) Heparin Anti-Xa Level POC ABG pH POC ABG pCO2 POC ABG pO2 Sodium Potassium Chloride Carbon Dioxide BUN Creatinine Glucose POC Glucose 184 H 212 H ALT Alkaline Phosphatase Total Creatine Kinase CK-MB (CK-2) CK-MB (CK-2) Rel Index Troponin T C-Reactive Protein Albumin Chest x-ray: image reviewed Allied health notes reviewed: RT
--- NOTE | 2017-03-28 19:01 | Progress Note ---
Assessment and Plan Assessment and plan: 66-year-old female presents to the emergency department complaining of chest pain after dialysis. While in triage, the patient went unresponsive, and without a pulse, No palpable pulses were identified. Patient was placed on a property assessment monitor and ventricular fibrillation was noted. Patient was defibrillated a single time with 200 J. She received CPR protocol, was intubated and had ROSC, and she was then taken to the ICU. Postarrest ECG was consistent with anterior STEMI. Code STEMI was activated, she was taken to labor and delivery nurse and received angiogram ; stent x 2 in LAD noted to be patent, but had distal LAD spasm Cardiovascular cardiac arrest; Vfib, STEMI, ACS, Distal LAD spasm, cardiogenic shock Cardiology input appreciated, status post cath with patent stents she was rx with amio drip, received heparin ggt x 24 hours, received Dopamine drip for Cardiogenic shock and hypotension,now improved; currently on Lopressor for rate control and now hypertensive -Hypertension. continue antihypertensive medications -Hyperlipidemia- Continue statin therapy Pulmonary Acute hypoxic respiratory failure, mech vent >96 hours Status post extubation 03/24/17, continue oxygen supplementation and noninvasive positive pressure ventilation as needed she is still very tachypneic today, continue pulmonary toilet Speech therapy evaluation, PT evaluation GI Nausea/Vomiting- Start on zofran, now resolved Dysphagia; aspiration with all consistencies; ST input appreicated, continue speech therapy Toxic metabolic encephalopathy EEG was reviewed, seizure is unlikely. encephalopathy most likely due to acute illness, cardiogenic shock, cardiac arrest and IV sedation now improved, Neurology input appreciated, awaiting MRI Suspected CVA Left facial droop/LUE weakness She likely suffered an anoxic injury during the period of cardiac arrest, await MRI report, patient is already on Plavix and an medications prevents secondary stroke, however it appears that the cause of her anoxic injury is cardiac arrest. Therefore she would not require any further workup or meds. ID Sepsis syndrome; ID consult appreciated, Continue current empiric therapy. Follow clinically for localizing issues., trachial aspirate cx, NGTD WBC count is slowly downtrending, continue abx till 03/29/17 RENAL/FEN End stage renal disease on hemodialysis. Nephrology following. Continue hemodialysis Hyperkalemia-corrected with dialysis Complete immobility due to frailty PT consult, patient will need SNIF placement Severe malnutrition faculty research assistant consult appreciated, continue tube feeds, continue speech therapy for dysphagia Diabetes mellitus type 2. Accu-Cheks and sliding scale insulin. Morbid obesity- will activities counselor when clinically improved about lifestyle modification Anemia of CKD. Follow H&H. Transfuse as necessary. History of breast cancer. DVT/GI PROPHY heparin subq, Discussed plan with family and Intramural Director , Heel Packer and swimming pool maintenance The high probability of a clinically significant, sudden or life threatening deterioration of the cardiac, pulmonary, Neurology system(s) required my full and direct attention, intervention and personal management. The aggregate critical care time was [35] minutes. This time is in addition to time spent performing reported procedures but includes the following: [x] Data Review and interpretation [x] Patient assessment and monitoring of vital signs [x] Documentation [x] Medication orders and management History Interval history: , she admits some throat discomfort, and feels ok, denies sob, feels very weak and tired; Her daughter states that she has significant memory loss and she does not remember her grandkids Hospitalist Physical - Physical exam Narrative exam: General: appears chronically ill HEENT: MMM, EOMI, weak voice cardiac: S1-S2 heard lungs: clear to auscultation, abdomen: soft, nontender, nondistended bowel sounds positive extremities: no edema clubbing or cyanosis Skin: no rash or lesion Neuro: AAOx3, Left facial droop, LUE focal weakness, moves all extremities, obeys commands, generalized weakness Psych: calm, cooperative - Constitutional Vitals: Temp Pulse Resp BP Pulse Ox 98.8 F 83 15 108/53 98 03/28/17 16:00 03/28/17 17:00 03/28/17 17:00 03/28/17 17:00 03/28/17 17:00 General appearance: Present: no acute distress, obese Results - Labs CBC & Chem 7: 03/27/17 04:00 03/27/17 04:00 Labs: Laboratory Last Values WBC 12.9 K/mm3 (4.5-11.0) H 03/27/17 04:00 RBC 3.33 M/mm3 (3.65-5.03) L 03/27/17 04:00 Hgb 9.2 gm/dl (10.1-14.3) L 03/27/17 04:00 Hct 29.0 % (30.3-42.9) L 03/27/17 04:00 MCV 87 fl (79-97) D 03/27/17 04:00 MCH 28 pg (28-32) 03/27/17 04:00 MCHC 32 % (30-34) 03/27/17 04:00 RDW 18.0 % (13.2-15.2) H 03/27/17 04:00 Plt Count 251 K/mm3 (140-440) 03/27/17 04:00 Lymph % (Auto) Manager Compliance 03/25/17 04:38 Early % (Auto) Manager Compliance 03/25/17 04:38 Eos % (Auto) Manager Compliance 03/25/17 04:38 Baso % (Auto) Manager Compliance 03/25/17 04:38 Lymph # Manager Compliance 03/25/17 04:38 Early # Manager Compliance 03/25/17 04:38 Eos # Manager Compliance 03/25/17 04:38 Baso # Manager Compliance 03/25/17 04:38 Add Manual Diff Complete 03/27/17 04:00 Total Counted 100 03/27/17 04:00 Seg Neutrophils % Manager Compliance 03/25/17 04:38 Seg Neuts % (Manual) 78.0 % (40.0-70.0) H 03/27/17 04:00 Band Neutrophils % 1.0 % 03/27/17 04:00 Lymphocytes % (Manual) 13.0 % (13.4-35.0) L 03/27/17 04:00 Reactive Lymphs % (Man) 0 % 03/27/17 04:00 Monocytes % (Manual) 6.0 % (0.0-7.3) 03/27/17 04:00 Eosinophils % (Manual) 2.0 % (0.0-4.3) 03/27/17 04:00 Basophils % (Manual) 0 % (0.0-1.8) 03/27/17 04:00 Metamyelocytes % 0 % 03/27/17 04:00 Myelocytes % 0 % 03/27/17 04:00 Promyelocytes % 0 % 03/27/17 04:00 Blast Cells % 0 % 03/27/17 04:00 Nucleated RBC % Not Reportable 03/27/17 04:00 Seg Neutrophils # Manager Compliance 03/25/17 04:38 Seg Neutrophils # Man 10.1 K/mm3 (1.8-7.7) H 03/27/17 04:00 Band Neutrophils # 0.1 K/mm3 03/27/17 04:00 Lymphocytes # (Manual) 1.7 K/mm3 (1.2-5.4) 03/27/17 04:00 Abs React Lymphs (Man) 0.0 K/mm3 03/27/17 04:00 Monocytes # (Manual) 0.8 K/mm3 (0.0-0.8) 03/27/17 04:00 Eosinophils # (Manual) 0.3 K/mm3 (0.0-0.4) 03/27/17 04:00 Basophils # (Manual) 0.0 K/mm3 (0.0-0.1) 03/27/17 04:00 Metamyelocytes # 0.0 K/mm3 03/27/17 04:00 Myelocytes # 0.0 K/mm3 03/27/17 04:00 Promyelocytes # 0.0 K/mm3 03/27/17 04:00 Blast Cells # 0.0 K/mm3 03/27/17 04:00 WBC Morphology Not Reportable 03/27/17 04:00 Hypersegmented Neuts Not Reportable 03/27/17 04:00 Hyposegmented Neuts Not Reportable 03/27/17 04:00 Hypogranular Neuts Not Reportable 03/27/17 04:00 Smudge Cells Not Reportable 03/27/17 04:00 Toxic Granulation Not Reportable 03/27/17 04:00 Toxic Vacuolation Not Reportable 03/27/17 04:00 Dohle Bodies Not Reportable 03/27/17 04:00 Pelger-Huet Anomaly Not Reportable 03/27/17 04:00 Tunde Rods Not Reportable 03/27/17 04:00 Platelet Estimate Consistent w auto 03/27/17 04:00 Clumped Platelets Not Reportable 03/27/17 04:00 Plt Clumps, EDTA Not Reportable 03/27/17 04:00 Large Platelets Not Reportable 03/27/17 04:00 Giant Platelets Not Reportable 03/27/17 04:00 Platelet Satelliting Not Reportable 03/27/17 04:00 Plt Morphology Comment Not Reportable 03/27/17 04:00 RBC Morphology Not Reportable 03/27/17 04:00 Dimorphic RBCs Not Reportable 03/27/17 04:00 Polychromasia Few 03/27/17 04:00 Hypochromasia Not Reportable 03/27/17 04:00 Poikilocytosis Not Reportable 03/27/17 04:00 Anisocytosis Not Reportable 03/27/17 04:00 Microcytosis Not Reportable 03/27/17 04:00 Macrocytosis Not Reportable 03/27/17 04:00 Spherocytes Not Reportable 03/27/17 04:00 Pappenheimer Bodies Not Reportable 03/27/17 04:00 Sickle Cells Not Reportable 03/27/17 04:00 Target Cells Not Reportable 03/27/17 04:00 Tear Drop Cells Not Reportable 03/27/17 04:00 Ovalocytes Not Reportable 03/27/17 04:00 Helmet Cells Not Reportable 03/27/17 04:00 [place] Bodies Not Reportable 03/27/17 04:00 [place] Rings Not Reportable 03/27/17 04:00 [place] Cells Not Reportable 03/27/17 04:00 Bite Cells Not Reportable 03/27/17 04:00 Crenated Cell Not Reportable 03/27/17 04:00 Elliptocytes Not Reportable 03/27/17 04:00 Acanthocytes (Spur) Not Reportable 03/27/17 04:00 Rouleaux Not Reportable 03/27/17 04:00 Hemoglobin C Crystals Not Reportable 03/27/17 04:00 Schistocytes Not Reportable 03/27/17 04:00 Malaria parasites Not Reportable 03/27/17 04:00 [place] Bodies Not Reportable 03/27/17 04:00 Hem Pathologist Commnt No 03/27/17 04:00 PT 13.4 Sec. (12.2-14.9) 03/16/17 11:07 INR 1.03 (0.87-1.13) 03/16/17 11:07 APTT 24.1 Sec. (24.2-36.6) L 03/16/17 11:07 Activated Clotting Time 125 (74-137) 03/17/17 08:23 Heparin Anti-Xa Level < 0.10 U.I./ml (0.3-0.7) L 03/17/17 21:12 POC ABG pH 7.469 (7.35-7.45) H 03/25/17 20:12 POC ABG pCO2 36.2 (35-45) 03/25/17 20:12 POC ABG pO2 69 (80-105) L 03/25/17 20:12 POC ABG HCO3 26.2 03/25/17 20:12 POC ABG Total CO2 27 03/25/17 20:12 POC ABG O2 Sat 95 03/25/17 20:12 POC ABG Base Excess 3 03/25/17 20:12 FiO2 30 % 03/25/17 20:12 Sodium 137 mmol/L (137-145) 03/27/17 04:00 Potassium 4.4 mmol/L (3.6-5.0) 03/27/17 04:00 Chloride 91.8 mmol/L (98-107) L 03/27/17 04:00 Carbon Dioxide 22 mmol/L (22-30) 03/27/17 04:00 Anion Gap 28 mmol/L 03/27/17 04:00 BUN 108 mg/dL (7-17) H 03/27/17 04:00 Creatinine 9.0 mg/dL (0.7-1.2) H 03/27/17 04:00 Estimated GFR 5 ml/min 03/27/17 04:00 BUN/Creatinine Ratio 12.00 % 03/27/17 04:00 Glucose 237 mg/dL (65-100) H 03/27/17 04:00 POC Glucose 187 (70-105) H 03/28/17 11:51 Lactic Acid 1.50 mmol/L (0.7-2.0) 03/27/17 00:58 Calcium 9.7 mg/dL (8.4-10.2) 03/27/17 04:00 Total Bilirubin 0.50 mg/dL (0.1-1.2) 03/21/17 07:45 AST 23 units/L (5-40) 03/21/17 07:45 ALT 40 units/L (7-56) 03/21/17 07:45 Alkaline Phosphatase 244 units/L (35-129) H 03/21/17 07:45 Ammonia 38.0 umol/L (25-60) 03/18/17 19:02 Total Creatine Kinase 282 units/L (30-135) H 03/16/17 16:36 CK-MB (CK-2) 24.2 ng/mL (0.0-4.0) H 03/16/17 16:36 CK-MB (CK-2) Rel Index 8.5 (0-4) H 03/16/17 16:36 Troponin T 0.656 ng/mL (0.00-0.029) H* D 03/16/17 16:36 C-Reactive Protein 7.90 mg/dL (0.00-1.30) H 03/27/17 00:58 Total Protein 7.3 g/dL (6.3-8.2) 03/21/17 07:45 Albumin 2.8 g/dL (3.9-5) L 03/21/17 07:45 Albumin/Globulin Ratio 0.6 % 03/21/17 07:45 Triglycerides 134 mg/dL (2-149) 03/16/17 11:07 Cholesterol 228 mg/dL (50-199) H 03/16/17 11:07 LDL Cholesterol Direct 165 mg/dL (50-130) H 03/16/17 11:07 HDL Cholesterol 37 mg/dL (40-59) L 03/16/17 11:07 Cholesterol/HDL Ratio 6.16 % 03/16/17 11:07 TSH 0.746 mlU/mL (0.270-4.200) 03/18/17 19:02 Random Vancomycin 20.9 ug/mL (0-40.0) 03/22/17 07:40 Hepatitis A IgM Ab Non-reactive (NonReactive) 03/19/17 04:31 Hep Bs Antigen Non-reactive (Negative) 03/19/17 04:31 Hep B Core IgM Ab Non-reactive (NonReactive) 03/19/17 04:31 Hepatitis C Antibody Non-reactive (NonReactive) 03/19/17 04:31 Blood Type A POSITIVE 03/16/17 16:36 Antibody Screen TNR 03/16/17 16:36 CLAIR Antibody Screen Negative 03/16/17 16:36
[2017-03-28] MEDS: TYLENOL FEEDTUBE PRN (22:29)
[2017-03-29] MEDS: DUONEB *Not for PRN Use IH SCH ×4 (01:31→20:14)
[2017-03-29] MEDS: FLAGYL 500 MG/100 ML 500 MG/100 ML BAG IV SCH ×3 (01:44→22:48)
[2017-03-29] MEDS: HEPARIN SUB-Q SCH ×3 (06:45→22:52)
[2017-03-29] MEDS: LOPRESSOR PO SCH ×4 (08:06→23:02)
--- NOTE | 2017-03-29 08:15 | Progress Note ---
Assessment and Plan Assessment: * End stage renal disease on HD (TTS outpatient schedule) * STEMI s/p LHC with PCI * s/p cardiac/Vfib arrest * Cardiogenic shock * Anemia secondary to ESRD * Secondary hyperparathyroidism Plan: * Hemodialysis today; continue MWF schedule for now; change to TTS schedule when nearing discharge * UF as tolerate * Optimization of cardiac function; cardiology recommendations noted * Epogen for goal Hb 10-12 * Swallowing eval pending * Daughter at bedside Subjective Date of service: 03/29/17 Principal diagnosis: Acute Hypoxemic Resp Failure; STEMI Interval history: Patient has no complaints. She denies SOB. Objective - Vital Signs Vital signs: Vital Signs - 12hr 03/28/17 03/28/17 03/28/17 20:46 21:00 22:00 Temperature Pulse Rate 69 70 Pulse Rate [ Anterior Bilateral Throughout] Respiratory 19 21 Rate Respiratory Rate [Anterior Bilateral Throughout] Blood Pressure 120/57 120/57 O2 Sat by Pulse 100 97 100 Oximetry 03/28/17 03/28/17 03/28/17 23:00 23:33 23:34 Temperature Pulse Rate 70 68 68 Pulse Rate [ Anterior Bilateral Throughout] Respiratory 27 H 21 16 Rate Respiratory Rate [Anterior Bilateral Throughout] Blood Pressure 126/54 126/54 127/55 O2 Sat by Pulse 98 98 97 Oximetry 03/29/17 03/29/17 03/29/17 00:00 00:04 01:00 Temperature 98.6 F Pulse Rate 71 72 Pulse Rate [ Anterior Bilateral Throughout] Respiratory 25 H 24 Rate Respiratory Rate [Anterior Bilateral Throughout] Blood Pressure 113/46 114/51 O2 Sat by Pulse 94 98 97 Oximetry 03/29/17 03/29/17 03/29/17 01:31 01:46 02:00 Temperature Pulse Rate 77 Pulse Rate [ 71 73 Anterior Bilateral Throughout] Respiratory 19 Rate Respiratory 23 23 Rate [Anterior Bilateral Throughout] Blood Pressure 119/53 O2 Sat by Pulse 97 Oximetry 03/29/17 03/29/17 03/29/17 03:00 03:26 04:00 Temperature 98.7 F Pulse Rate 72 73 Pulse Rate [ Anterior Bilateral Throughout] Respiratory 20 24 Rate Respiratory Rate [Anterior Bilateral Throughout] Blood Pressure 114/45 128/56 O2 Sat by Pulse 96 93 Oximetry 03/29/17 03/29/17 03/29/17 04:35 05:00 06:00 Temperature Pulse Rate 74 71 73 Pulse Rate [ Anterior Bilateral Throughout] Respiratory 23 22 Rate Respiratory Rate [Anterior Bilateral Throughout] Blood Pressure 123/52 137/56 O2 Sat by Pulse 94 94 Oximetry 03/29/17 03/29/17 03/29/17 07:00 07:59 08:00 Temperature Pulse Rate 71 70 Pulse Rate [ 76 Anterior Bilateral Throughout] Respiratory 21 23 Rate Respiratory 21 Rate [Anterior Bilateral Throughout] Blood Pressure 122/52 122/52 O2 Sat by Pulse 94 96 99 Oximetry 03/29/17 03/29/17 08:06 08:11 Temperature Pulse Rate 77 Pulse Rate [ 71 Anterior Bilateral Throughout] Respiratory Rate Respiratory 22 Rate [Anterior Bilateral Throughout] Blood Pressure 122/52 O2 Sat by Pulse Oximetry - General Appearance General appearance: well-developed, well-nourished EENT: ATNC Respiratory: Present: Decreased Breath Sounds (at bases) Cardiology: regular, S1S2 Gastrointestinal: normal, no tenderness, no distended, obese Integumentary: other (chronic venous stasis changes) Neurologic: no focal deficit, alert and oriented x3 - Lab 03/27/17 04:00 03/27/17 04:00 Most recent lab results Calcium 9.7 mg/dL (8.4-10.2) 03/27/17 04:00
--- NOTE | 2017-03-29 09:24 | Progress Note ---
Assessment and Plan Stable cardiac status. Continue current management. The patient has been seen in conjunction with Dr. XIOMARA Mancera who agrees with the assessment and plan of care. - Patient Problems (1) Acute hypoxemic respiratory failure Current Visit: Yes Status: Resolved (2) Cardiac arrest Current Visit: Yes Status: Acute (3) Cardiac arrest due to underlying cardiac condition Current Visit: Yes Status: Acute (4) ESRD on dialysis Current Visit: Yes Status: Acute (5) Obesity (BMI 30-39.9) Current Visit: Yes Status: Chronic (6) STEMI (ST elevation myocardial infarction) Current Visit: Yes Status: Acute Qualifiers: Involved coronary artery: LAD Qualified Code(s): I21.3 - anterior ST elevation (STEMI) myocardial infarction - s/p PCI of LAD (7) Seizure Current Visit: Yes Status: Acute (8) Sepsis syndrome Current Visit: Yes Status: Acute (9) Aortic stenosis Current Visit: Yes Status: Chronic Qualifiers: Cardiac valve disease etiology: C (10) Pulmonary HTN Current Visit: Yes Status: Chronic (11) CVA (cerebral vascular accident) Current Visit: No Status: Acute Qualifiers: CVA mechanism: C Precerebral and cerebral artery: P Laterality of affected vessel: L (12) Kidney stone Current Visit: No Status: Chronic (13) Rectal bleed Current Visit: No Status: Acute (14) UTI (urinary tract infection) Current Visit: No Status: Acute Qualifiers: Urinary tract infection type: U Hematuria presence: H Indwelling urinary catheter type: I Encounter type: E (15) Hypertension Current Visit: No Status: Chronic Qualifiers: Hypertension type: H (16) Type 2 diabetes mellitus Current Visit: No Status: Chronic Qualifiers: Diabetes mellitus complication status: D Diabetes mellitus complication detail: D Diabetic retinopathy severity: D Proliferative retinopathy type: P Diabetes mellitus macular edema: D Diabetes mellitus half-way insulin use : D Laterality: L Chronic kidney disease stage: C Subjective Date of service: 03/29/17 Principal diagnosis: Acute Hypoxemic Resp Failure; STEMI Interval history: The patient is resting in bed. No new complaints. Sinus rhythm on the monitor. Objective Last Vital Signs Temp 98.2 F 03/29/17 08:00 Pulse 71 03/29/17 08:11 Resp 22 03/29/17 08:11 BP 122/52 03/29/17 08:06 Pulse Ox 99 03/29/17 08:00 - Physical Examination General: Appears Well, No Apparent Distress HEENT: Positive: Normocephaly, Mucus Membranes Moist Neck: Positive: neck supple, trachea midline Cardiac: Positive: Reg Rate and Rhythm, S1/S2 Lungs: Positive: clear to auscultation Neuro: Positive: Grossly Intact Abdomen: Positive: Soft, Active Bowel Sounds Skin: Negative: Clear, Rash Musculoskeletal: No Fluid Collection, No Pain, Normal Range of Motion Extremities: Present: upper extr. pulses, lower extr. pulses. Absent: edema - Imaging and Cardiology EKG: report reviewed, image reviewed Echo: report reviewed - Telemetry EKG Rhythm: Sinus Rhythm - EKG Sinus rhythms and dysrhythmias: sinus rhythm Myocardial infarction: inferior AL (acute or rec, anterior AL (acute or rec - Allied health notes Allied health notes reviewed: RT
--- NOTE | 2017-03-29 09:54 | Progress Note ---
Assessment and Plan Assessment and plan: 66-year-old female presents to the emergency department complaining of chest pain after dialysis. While in triage, the patient went unresponsive, and without a pulse, No palpable pulses were identified. Patient was placed on a lunchroom monitor and ventricular fibrillation was noted. Patient was defibrillated a single time with 200 J. She received CPR protocol, was intubated and had ROSC, and she was then taken to the ICU. Postarrest ECG was consistent with anterior STEMI. Code STEMI was activated, she was taken to outside laborer and received angiogram ; stent x 2 in LAD noted to be patent, but had distal LAD spasm Cardiovascular cardiac arrest; Vfib, STEMI, ACS, Distal LAD spasm, cardiogenic shock Cardiology input appreciated, status post cath with patent stents she was rx with amio drip, received heparin ggt x 24 hours, received Dopamine drip for Cardiogenic shock and hypotension,now improved; currently on Lopressor for rate control and now hypertensive -Hypertension. continue antihypertensive medications -Hyperlipidemia- Continue statin therapy Pulmonary Acute hypoxic respiratory failure, mech vent >96 hours Status post extubation 03/24/17, continue oxygen supplementation and noninvasive positive pressure ventilation as needed she is still very tachypneic today, continue pulmonary toilet Speech therapy evaluation, PT evaluation GI Nausea/Vomiting- Start on zofran, now resolved Dysphagia; aspiration with all consistencies; ST input appreicated, continue speech therapy Toxic metabolic encephalopathy EEG was reviewed, seizure is unlikely. encephalopathy most likely due to acute illness, cardiogenic shock, cardiac arrest and IV sedation now improved, Neurology input appreciated, awaiting MRI Suspected CVA Left facial droop/LUE weakness She likely suffered an anoxic injury during the period of cardiac arrest, await MRI report, patient is already on Plavix and an medications prevents secondary stroke, however it appears that the cause of her anoxic injury is cardiac arrest. Therefore she would not require any further workup or meds. ID Sepsis syndrome; ID consult appreciated, Continue current empiric therapy. Follow clinically for localizing issues., trachial aspirate cx, NGTD WBC count is slowly downtrending, continue abx till 03/29/17 RENAL/FEN End stage renal disease on hemodialysis. Nephrology following. Continue hemodialysis Hyperkalemia-corrected with dialysis Complete immobility due to frailty PT consult, patient will need SNIF placement Severe malnutrition marker hand consult appreciated, continue tube feeds, continue speech therapy for dysphagia Diabetes mellitus type 2. Accu-Cheks and sliding scale insulin. Morbid obesity- will summer camp counselor when clinically improved about lifestyle modification Anemia of CKD. Follow H&H. Transfuse as necessary. History of breast cancer. DVT/GI PROPHY heparin subq, Discussed plan with family and Speech Professor , Management Consulting and general maintenance engineer The high probability of a clinically significant, sudden or life threatening deterioration of the cardiac, pulmonary, Neurology system(s) required my full and direct attention, intervention and personal management. The aggregate critical care time was [35] minutes. This time is in addition to time spent performing reported procedures but includes the following: [x] Data Review and interpretation [x] Patient assessment and monitoring of vital signs [x] Documentation [x] Medication orders and management History Interval history: , she admits some throat discomfort, and feels ok, denies sob, feels very weak and tired; Her daughter states that she has significant memory loss and she does not remember her grandkids Hospitalist Physical - Physical exam Narrative exam: General: appears chronically ill HEENT: MMM, EOMI, weak voice cardiac: S1-S2 heard lungs: clear to auscultation, abdomen: soft, nontender, nondistended bowel sounds positive extremities: no edema clubbing or cyanosis Skin: no rash or lesion Neuro: AAOx3, Left facial droop, LUE focal weakness, moves all extremities, obeys commands, generalized weakness Psych: calm, cooperative - Constitutional Vitals: Temp Pulse Resp BP Pulse Ox 98.2 F 71 22 122/52 99 03/29/17 08:00 03/29/17 08:11 03/29/17 08:11 03/29/17 08:06 03/29/17 08:00 General appearance: Present: no acute distress, obese Results - Labs CBC & Chem 7: 03/27/17 04:00 03/27/17 04:00 Labs: Laboratory Last Values WBC 12.9 K/mm3 (4.5-11.0) H 03/27/17 04:00 RBC 3.33 M/mm3 (3.65-5.03) L 03/27/17 04:00 Hgb 9.2 gm/dl (10.1-14.3) L 03/27/17 04:00 Hct 29.0 % (30.3-42.9) L 03/27/17 04:00 MCV 87 fl (79-97) D 03/27/17 04:00 MCH 28 pg (28-32) 03/27/17 04:00 MCHC 32 % (30-34) 03/27/17 04:00 RDW 18.0 % (13.2-15.2) H 03/27/17 04:00 Plt Count 251 K/mm3 (140-440) 03/27/17 04:00 Lymph % (Auto) Cast [place] Drain Pipe Layer 03/25/17 04:38 Fountain % (Auto) Cast [place] Drain Pipe Layer 03/25/17 04:38 Eos % (Auto) Cast [place] Drain Pipe Layer 03/25/17 04:38 Baso % (Auto) Cast [place] Drain Pipe Layer 03/25/17 04:38 Lymph # Cast [place] Drain Pipe Layer 03/25/17 04:38 Fountain # Cast [place] Drain Pipe Layer 03/25/17 04:38 Eos # [place] Drain Pipe Layer 03/25/17 04:38 Baso # [place] Drain Pipe Layer 03/25/17 04:38 Add Manual Diff Complete 03/27/17 04:00 Total Counted 100 03/27/17 04:00 Seg Neutrophils % [place] Drain Pipe Layer 03/25/17 04:38 Seg Neuts % (Manual) 78.0 % (40.0-70.0) H 03/27/17 04:00 Band Neutrophils % 1.0 % 03/27/17 04:00 Lymphocytes % (Manual) 13.0 % (13.4-35.0) L 03/27/17 04:00 Reactive Lymphs % (Man) 0 % 03/27/17 04:00 Monocytes % (Manual) 6.0 % (0.0-7.3) 03/27/17 04:00 Eosinophils % (Manual) 2.0 % (0.0-4.3) 03/27/17 04:00 Basophils % (Manual) 0 % (0.0-1.8) 03/27/17 04:00 Metamyelocytes % 0 % 03/27/17 04:00 Myelocytes % 0 % 03/27/17 04:00 Promyelocytes % 0 % 03/27/17 04:00 Blast Cells % 0 % 03/27/17 04:00 Nucleated RBC % Not Reportable 03/27/17 04:00 Seg Neutrophils # Cast [place] Drain Pipe Layer 03/25/17 04:38 Seg Neutrophils # Man 10.1 K/mm3 (1.8-7.7) H 03/27/17 04:00 Band Neutrophils # 0.1 K/mm3 03/27/17 04:00 Lymphocytes # (Manual) 1.7 K/mm3 (1.2-5.4) 03/27/17 04:00 Abs React Lymphs (Man) 0.0 K/mm3 03/27/17 04:00 Monocytes # (Manual) 0.8 K/mm3 (0.0-0.8) 03/27/17 04:00 Eosinophils # (Manual) 0.3 K/mm3 (0.0-0.4) 03/27/17 04:00 Basophils # (Manual) 0.0 K/mm3 (0.0-0.1) 03/27/17 04:00 Metamyelocytes # 0.0 K/mm3 03/27/17 04:00 Myelocytes # 0.0 K/mm3 03/27/17 04:00 Promyelocytes # 0.0 K/mm3 03/27/17 04:00 Blast Cells # 0.0 K/mm3 03/27/17 04:00 WBC Morphology Not Reportable 03/27/17 04:00 Hypersegmented Neuts Not Reportable 03/27/17 04:00 Hyposegmented Neuts Not Reportable 03/27/17 04:00 Hypogranular Neuts Not Reportable 03/27/17 04:00 Smudge Cells Not Reportable 03/27/17 04:00 Toxic Granulation Not Reportable 03/27/17 04:00 Toxic Vacuolation Not Reportable 03/27/17 04:00 Dohle Bodies Not Reportable 03/27/17 04:00 Pelger-Huet Anomaly Not Reportable 03/27/17 04:00 Tunde Rods Not Reportable 03/27/17 04:00 Platelet Estimate Consistent w auto 03/27/17 04:00 Clumped Platelets Not Reportable 03/27/17 04:00 Plt Clumps, EDTA Not Reportable 03/27/17 04:00 Large Platelets Not Reportable 03/27/17 04:00 Giant Platelets Not Reportable 03/27/17 04:00 Platelet Satelliting Not Reportable 03/27/17 04:00 Plt Morphology Comment Not Reportable 03/27/17 04:00 RBC Morphology Not Reportable 03/27/17 04:00 Dimorphic RBCs Not Reportable 03/27/17 04:00 Polychromasia Few 03/27/17 04:00 Hypochromasia Not Reportable 03/27/17 04:00 Poikilocytosis Not Reportable 03/27/17 04:00 Anisocytosis Not Reportable 03/27/17 04:00 Microcytosis Not Reportable 03/27/17 04:00 Macrocytosis Not Reportable 03/27/17 04:00 Spherocytes Not Reportable 03/27/17 04:00 Pappenheimer Bodies Not Reportable 03/27/17 04:00 Sickle Cells Not Reportable 03/27/17 04:00 Target Cells Not Reportable 03/27/17 04:00 Tear Drop Cells Not Reportable 03/27/17 04:00 Ovalocytes Not Reportable 03/27/17 04:00 Helmet Cells Not Reportable 03/27/17 04:00 Shukla-Mcfarlan Bodies Not Reportable 03/27/17 04:00 [place] Rings Not Reportable 03/27/17 04:00 [place] Cells Not Reportable 03/27/17 04:00 Bite Cells Not Reportable 03/27/17 04:00 Crenated Cell Not Reportable 03/27/17 04:00 Elliptocytes Not Reportable 03/27/17 04:00 Acanthocytes (Spur) Not Reportable 03/27/17 04:00 Rouleaux Not Reportable 03/27/17 04:00 Hemoglobin C Crystals Not Reportable 03/27/17 04:00 Schistocytes Not Reportable 03/27/17 04:00 Malaria parasites Not Reportable 03/27/17 04:00 [place] Bodies Not Reportable 03/27/17 04:00 Hem Pathologist Commnt No 03/27/17 04:00 PT 13.4 Sec. (12.2-14.9) 03/16/17 11:07 INR 1.03 (0.87-1.13) 03/16/17 11:07 APTT 24.1 Sec. (24.2-36.6) L 03/16/17 11:07 Activated Clotting Time 125 (74-137) 03/17/17 08:23 Heparin Anti-Xa Level < 0.10 U.I./ml (0.3-0.7) L 03/17/17 21:12 POC ABG pH 7.469 (7.35-7.45) H 03/25/17 20:12 POC ABG pCO2 36.2 (35-45) 03/25/17 20:12 POC ABG pO2 69 (80-105) L 03/25/17 20:12 POC ABG HCO3 26.2 03/25/17 20:12 POC ABG Total CO2 27 03/25/17 20:12 POC ABG O2 Sat 95 03/25/17 20:12 POC ABG Base Excess 3 03/25/17 20:12 FiO2 30 % 03/25/17 20:12 Sodium 137 mmol/L (137-145) 03/27/17 04:00 Potassium 4.4 mmol/L (3.6-5.0) 03/27/17 04:00 Chloride 91.8 mmol/L (98-107) L 03/27/17 04:00 Carbon Dioxide 22 mmol/L (22-30) 03/27/17 04:00 Anion Gap 28 mmol/L 03/27/17 04:00 BUN 108 mg/dL (7-17) H 03/27/17 04:00 Creatinine 9.0 mg/dL (0.7-1.2) H 03/27/17 04:00 Estimated GFR 5 ml/min 03/27/17 04:00 BUN/Creatinine Ratio 12.00 % 03/27/17 04:00 Glucose 237 mg/dL (65-100) H 03/27/17 04:00 POC Glucose 143 (70-105) H 03/29/17 05:28 Lactic Acid 1.50 mmol/L (0.7-2.0) 03/27/17 00:58 Calcium 9.7 mg/dL (8.4-10.2) 03/27/17 04:00 Total Bilirubin 0.50 mg/dL (0.1-1.2) 03/21/17 07:45 AST 23 units/L (5-40) 03/21/17 07:45 ALT 40 units/L (7-56) 03/21/17 07:45 Alkaline Phosphatase 244 units/L (35-129) H 03/21/17 07:45 Ammonia 38.0 umol/L (25-60) 03/18/17 19:02 Total Creatine Kinase 282 units/L (30-135) H 03/16/17 16:36 CK-MB (CK-2) 24.2 ng/mL (0.0-4.0) H 03/16/17 16:36 CK-MB (CK-2) Rel Index 8.5 (0-4) H 03/16/17 16:36 Troponin T 0.656 ng/mL (0.00-0.029) H* D 03/16/17 16:36 C-Reactive Protein 7.90 mg/dL (0.00-1.30) H 03/27/17 00:58 Total Protein 7.3 g/dL (6.3-8.2) 03/21/17 07:45 Albumin 2.8 g/dL (3.9-5) L 03/21/17 07:45 Albumin/Globulin Ratio 0.6 % 03/21/17 07:45 Triglycerides 134 mg/dL (2-149) 03/16/17 11:07 Cholesterol 228 mg/dL (50-199) H 03/16/17 11:07 LDL Cholesterol Direct 165 mg/dL (50-130) H 03/16/17 11:07 HDL Cholesterol 37 mg/dL (40-59) L 03/16/17 11:07 Cholesterol/HDL Ratio 6.16 % 03/16/17 11:07 TSH 0.746 mlU/mL (0.270-4.200) 03/18/17 19:02 Random Vancomycin 20.9 ug/mL (0-40.0) 03/22/17 07:40 Hepatitis A IgM Ab Non-reactive (NonReactive) 03/19/17 04:31 Hep Bs Antigen Non-reactive (Negative) 03/19/17 04:31 Hep B Core IgM Ab Non-reactive (NonReactive) 03/19/17 04:31 Hepatitis C Antibody Non-reactive (NonReactive) 03/19/17 04:31 Blood Type A POSITIVE 03/16/17 16:36 Antibody Screen TNR 03/16/17 16:36 CLAIR Antibody Screen Negative 03/16/17 16:36
[2017-03-29] MEDS: LEVEMIR SUB-Q SCH ×2 (10:00→14:18)
[2017-03-29] MEDS: MAXIPIME 0.5 GM in NACL 0.9% 100 ML IV SCH (10:42)
[2017-03-29] MEDS: HALDOL IV PRN ×2 (10:43→22:51)
--- NOTE | 2017-03-29 11:48 | Progress Note ---
Assessment and Plan - Patient Problems (1) Acute hypoxemic respiratory failure Current Visit: Yes Status: Resolved Plan to address problem: - will continue aspiration precautions - will continue bronchodilators and pulmonary toilet - continue to wean oxygen for sats > 94% - continue to use BIPAP scheduled qhs and prn daytime - continue HD/UF for toxin and volume clearance - prn ABG's to evaluate for hypercapnia - CXR reviewed and no acute process (2) ESRD on dialysis Current Visit: Yes Status: Acute Plan to address problem: - continue HD/UF per nephrology prescription - oliguric - follow electrolytes and correct as necessary (3) Obesity (BMI 30-39.9) Current Visit: Yes Status: Chronic Plan to address problem: - weight loss - outpatient sleep clinic evaluation (4) Sepsis syndrome Current Visit: Yes Status: Acute Plan to address problem: - get ID consultation - wean dopamine for MAP > 65mmHg - CRP significantly improved - complete empiric AB's dose (flagyl to end tomorrow) - completed cefipime course also (5) STEMI (ST elevation myocardial infarction) Current Visit: Yes Status: Acute Qualifiers: Involved coronary artery: unspecified coronary artery Qualified Code(s): I21.3 - ST elevation (STEMI) myocardial infarction of unspecified site Plan to address problem: - on SQ heparin now for VTE prophylaxis - clinically improved - on plavix - cardiology on case and managing (will defer otherwise) (6) Type 2 diabetes mellitus Current Visit: No Status: Chronic Qualifiers: Diabetes mellitus complication status: D Diabetes mellitus complication detail: D Diabetic retinopathy severity: D Proliferative retinopathy type: P Diabetes mellitus macular edema: D Diabetes mellitus salvage determiner insulin use : D Laterality: L Chronic kidney disease stage: C Plan to address problem: - continue SSI for glycemic control (7) Discharge planning issues Current Visit: Yes Status: Acute Plan to address problem: - doing better and will transfer to telemetry bed once available ....will re-evaluate in am & prn Subjective Date of service: 03/29/17 Principal diagnosis: Acute Hypoxemic Resp Failure; STEMI Interval history: Seen and examined at bedside; 24 hour events reviewed; nursing and respiratory care staff consulted; no adverse overnight events reported to me; looks better; denies acute chest pains or increased SOB; still somnolent to lethargic at times; tolerating qhs BIPAP Objective Vital Signs - 12hr 03/29/17 03/29/17 03/29/17 00:00 00:04 01:00 Temperature 98.6 F Pulse Rate 71 72 Pulse Rate [ Anterior Bilateral Throughout] Respiratory 25 H 24 Rate Respiratory Rate [Anterior Bilateral Throughout] Blood Pressure 113/46 114/51 O2 Sat by Pulse 94 98 97 Oximetry 03/29/17 03/29/17 03/29/17 01:31 01:46 02:00 Temperature Pulse Rate 77 Pulse Rate [ 71 73 Anterior Bilateral Throughout] Respiratory 19 Rate Respiratory 23 23 Rate [Anterior Bilateral Throughout] Blood Pressure 119/53 O2 Sat by Pulse 97 Oximetry 03/29/17 03/29/17 03/29/17 03:00 03:26 04:00 Temperature 98.7 F Pulse Rate 72 73 Pulse Rate [ Anterior Bilateral Throughout] Respiratory 20 24 Rate Respiratory Rate [Anterior Bilateral Throughout] Blood Pressure 114/45 128/56 O2 Sat by Pulse 96 93 Oximetry 03/29/17 03/29/17 03/29/17 04:35 05:00 06:00 Temperature Pulse Rate 74 71 73 Pulse Rate [ Anterior Bilateral Throughout] Respiratory 23 22 Rate Respiratory Rate [Anterior Bilateral Throughout] Blood Pressure 123/52 137/56 O2 Sat by Pulse 94 94 Oximetry 03/29/17 03/29/17 03/29/17 07:00 07:59 08:00 Temperature 98.2 F Pulse Rate 71 70 Pulse Rate [ 76 Anterior Bilateral Throughout] Respiratory 21 23 Rate Respiratory 21 Rate [Anterior Bilateral Throughout] Blood Pressure 122/52 122/52 O2 Sat by Pulse 94 96 99 Oximetry 03/29/17 03/29/17 08:06 08:11 Temperature Pulse Rate 77 Pulse Rate [ 71 Anterior Bilateral Throughout] Respiratory Rate Respiratory 22 Rate [Anterior Bilateral Throughout] Blood Pressure 122/52 O2 Sat by Pulse Oximetry Constitutional: no acute distress, other (somnolent) Eyes: non-icteric ENT: oropharynx moist Neck: supple, no lymphadenopathy, no JVD Effort: mildly labored Ascultation: Bilateral: diminished breath sounds, rales (scant in bases) Cardiovascular: regular rate and rhythm Gastrointestinal: normoactive bowel sounds, soft, non-tender, non-distended Integumentary: normal, other (Femoral CVC) Extremities: no cyanosis, no edema, pulses normal, no ischemia or petechiae Neurologic: normal mental status, non-focal exam (Moves all extremities, tracks my voice, attempts to vocalize in response to questions), pupils equal and round , motor strength normal and, other (very weak) Psychiatric: mood appropriate, affect normal, depressed CBC and BMP: 03/27/17 04:00 03/27/17 04:00 ABG, PT/INR, D-dimer: ABG POC ABG pH 7.469 (7.35-7.45) H 03/25/17 20:12 POC ABG pCO2 36.2 (35-45) 03/25/17 20:12 POC ABG pO2 69 (80-105) L 03/25/17 20:12 POC ABG HCO3 26.2 03/25/17 20:12 POC ABG Total CO2 27 03/25/17 20:12 POC ABG O2 Sat 95 03/25/17 20:12 PT/INR, D-dimer PT 13.4 Sec. (12.2-14.9) 03/16/17 11:07 INR 1.03 (0.87-1.13) 03/16/17 11:07 Abnormal lab findings: Abnormal Labs 03/16/17 03/16/17 03/17/17 16:36 18:00 03:42 WBC 20.6 H RBC Hgb Hct RDW 17.3 H Lymph % (Auto) [place] % (Auto) Lymph # [place] # Seg Neutrophils % Seg Neuts % (Manual) 84.0 H Lymphocytes % (Manual) 3.0 L Monocytes % (Manual) 11.0 H Seg Neutrophils # Seg Neutrophils # Man 17.3 H Lymphocytes # (Manual) 0.6 L Monocytes # (Manual) 2.3 H Heparin Anti-Xa Level POC ABG pH 7.336 L POC ABG pCO2 47.9 H POC ABG pO2 189 H Sodium Potassium Chloride Carbon Dioxide BUN Creatinine Glucose POC Glucose ALT Alkaline Phosphatase Total Creatine Kinase 282 H CK-MB (CK-2) 24.2 H CK-MB (CK-2) Rel Index 8.5 H Troponin T 0.656 H* D C-Reactive Protein Albumin 03/17/17 03/17/17 03/17/17 03:42 04:21 17:15 WBC RBC Hgb Hct RDW Lymph % (Auto) [place] % (Auto) Lymph # [place] # Seg Neutrophils % Seg Neuts % (Manual) Lymphocytes % (Manual) Monocytes % (Manual) Seg Neutrophils # Seg Neutrophils # Man Lymphocytes # (Manual) Monocytes # (Manual) Heparin Anti-Xa Level 0.10 L POC ABG pH POC ABG pCO2 POC ABG pO2 Sodium 131 L Potassium 5.3 H D Chloride 89.5 L Carbon Dioxide 21 L BUN 39 H Creatinine 7.0 H Glucose 151 H POC Glucose ALT Alkaline Phosphatase Total Creatine Kinase CK-MB (CK-2) CK-MB (CK-2) Rel Index Troponin T C-Reactive Protein 33.90 H Albumin 03/17/17 03/18/17 03/18/17 21:12 03:33 03:33 WBC 17.6 H RBC 3.59 L Hgb Hct RDW 16.9 H Lymph % (Auto) 4.2 L [place] % (Auto) 11.8 H Lymph # 0.7 L [place] # 2.1 H Seg Neutrophils % 83.3 H Seg Neuts % (Manual) Lymphocytes % (Manual) Monocytes % (Manual) Seg Neutrophils # 14.7 H Seg Neutrophils # Man Lymphocytes # (Manual) Monocytes # (Manual) Heparin Anti-Xa Level < 0.10 L POC ABG pH POC ABG pCO2 POC ABG pO2 Sodium 127 L Potassium 6.1 H* Chloride 87.2 L Carbon Dioxide BUN 55 H Creatinine 8.7 H Glucose 140 H POC Glucose ALT Alkaline Phosphatase Total Creatine Kinase CK-MB (CK-2) CK-MB (CK-2) Rel Index Troponin T C-Reactive Protein Albumin 03/18/17 03/18/17 03/19/17 04:34 22:15 00:04 WBC RBC Hgb Hct RDW Lymph % (Auto) [place] % (Auto) Lymph # [place] # Seg Neutrophils % Seg Neuts % (Manual) Lymphocytes % (Manual) Monocytes % (Manual) Seg Neutrophils # Seg Neutrophils # Man Lymphocytes # (Manual) Monocytes # (Manual) Heparin Anti-Xa Level POC ABG pH 7.289 L POC ABG pCO2 48.7 H POC ABG pO2 Sodium Potassium 5.6 H Chloride Carbon Dioxide BUN Creatinine Glucose POC Glucose 108 H ALT Alkaline Phosphatase Total Creatine Kinase CK-MB (CK-2) CK-MB (CK-2) Rel Index Troponin T C-Reactive Protein Albumin 03/19/17 03/19/17 03/19/17 05:22 08:00 08:00 WBC 16.3 H RBC 3.15 L Hgb 8.8 L Hct 27.3 L RDW 17.4 H Lymph % (Auto) 3.4 L [place] % (Auto) 10.1 H Lymph # 0.5 L [place] # 1.7 H Seg Neutrophils % 85.4 H Seg Neuts % (Manual) Lymphocytes % (Manual) Monocytes % (Manual) Seg Neutrophils # 13.9 H Seg Neutrophils # Man Lymphocytes # (Manual) Monocytes # (Manual) Heparin Anti-Xa Level POC ABG pH POC ABG pCO2 POC ABG pO2 Sodium 131 L Potassium Chloride 89.3 L Carbon Dioxide BUN 56 H Creatinine 7.8 H Glucose 122 H POC Glucose 146 H ALT 59 H Alkaline Phosphatase 208 H Total Creatine Kinase CK-MB (CK-2) CK-MB (CK-2) Rel Index Troponin T C-Reactive Protein Albumin 2.6 L 03/19/17 03/19/17 03/19/17 08:06 11:50 17:36 WBC RBC Hgb Hct RDW Lymph % (Auto) [place] % (Auto) Lymph # [place] # Seg Neutrophils % Seg Neuts % (Manual) Lymphocytes % (Manual) Monocytes % (Manual) Seg Neutrophils # Seg Neutrophils # Man Lymphocytes # (Manual) Monocytes # (Manual) Heparin Anti-Xa Level POC ABG pH 7.338 L POC ABG pCO2 49.2 H POC ABG pO2 110 H Sodium Potassium Chloride Carbon Dioxide BUN Creatinine Glucose POC Glucose 172 H 152 H ALT Alkaline Phosphatase Total Creatine Kinase CK-MB (CK-2) CK-MB (CK-2) Rel Index Troponin T C-Reactive Protein Albumin 03/20/17 03/20/17 03/20/17 00:14 04:15 05:06 WBC RBC Hgb Hct RDW Lymph % (Auto) [place] % (Auto) Lymph # [place] # Seg Neutrophils % Seg Neuts % (Manual) Lymphocytes % (Manual) Monocytes % (Manual) Seg Neutrophils # Seg Neutrophils # Man Lymphocytes # (Manual) Monocytes # (Manual) Heparin Anti-Xa Level POC ABG pH 7.288 L POC ABG pCO2 51.4 H POC ABG pO2 Sodium Potassium Chloride Carbon Dioxide BUN Creatinine Glucose POC Glucose 132 H 166 H ALT Alkaline Phosphatase Total Creatine Kinase CK-MB (CK-2) CK-MB (CK-2) Rel Index Troponin T C-Reactive Protein Albumin 03/20/17 03/20/17 03/20/17 12:07 15:45 17:41 WBC RBC Hgb Hct RDW Lymph % (Auto) [place] % (Auto) Lymph # [place] # Seg Neutrophils % Seg Neuts % (Manual) Lymphocytes % (Manual) Monocytes % (Manual) Seg Neutrophils # Seg Neutrophils # Man Lymphocytes # (Manual) Monocytes # (Manual) Heparin Anti-Xa Level POC ABG pH POC ABG pCO2 POC ABG pO2 Sodium Potassium Chloride Carbon Dioxide BUN Creatinine Glucose POC Glucose 193 H 172 H 156 H ALT Alkaline Phosphatase Total Creatine Kinase CK-MB (CK-2) CK-MB (CK-2) Rel Index Troponin T C-Reactive Protein Albumin 03/20/17 03/21/17 03/21/17 23:13 04:42 05:41 WBC RBC Hgb Hct RDW Lymph % (Auto) [place] % (Auto) Lymph # [place] # Seg Neutrophils % Seg Neuts % (Manual) Lymphocytes % (Manual) Monocytes % (Manual) Seg Neutrophils # Seg Neutrophils # Man Lymphocytes # (Manual) Monocytes # (Manual) Heparin Anti-Xa Level POC ABG pH 7.321 L POC ABG pCO2 56.8 H POC ABG pO2 73 L Sodium Potassium Chloride Carbon Dioxide BUN Creatinine Glucose POC Glucose 141 H 159 H ALT Alkaline Phosphatase Total Creatine Kinase CK-MB (CK-2) CK-MB (CK-2) Rel Index Troponin T C-Reactive Protein Albumin 03/21/17 03/21/17 03/21/17 07:45 07:45 12:16 WBC 15.1 H RBC 3.32 L Hgb 9.2 L Hct 28.9 L RDW 17.4 H Lymph % (Auto) 4.7 L [place] % (Auto) 16.0 H Lymph # 0.7 L [place] # 2.4 H Seg Neutrophils % 78.6 H Seg Neuts % (Manual) Lymphocytes % (Manual) Monocytes % (Manual) Seg Neutrophils # 11.8 H Seg Neutrophils # Man Lymphocytes # (Manual) Monocytes # (Manual) Heparin Anti-Xa Level POC ABG pH POC ABG pCO2 POC ABG pO2 Sodium Potassium Chloride 95.4 L Carbon Dioxide BUN 55 H Creatinine 6.9 H Glucose 188 H POC Glucose 226 H ALT Alkaline Phosphatase 244 H Total Creatine Kinase CK-MB (CK-2) CK-MB (CK-2) Rel Index Troponin T C-Reactive Protein Albumin 2.8 L 03/21/17 03/21/17 03/22/17 17:17 23:28 04:49 WBC RBC Hgb Hct RDW Lymph % (Auto) [place] % (Auto) Lymph # [place] # Seg Neutrophils % Seg Neuts % (Manual) Lymphocytes % (Manual) Monocytes % (Manual) Seg Neutrophils # Seg Neutrophils # Man Lymphocytes # (Manual) Monocytes # (Manual) Heparin Anti-Xa Level POC ABG pH 7.323 L POC ABG pCO2 49.5 H POC ABG pO2 77 L Sodium Potassium Chloride Carbon Dioxide BUN Creatinine Glucose POC Glucose 192 H 199 H ALT Alkaline Phosphatase Total Creatine Kinase CK-MB (CK-2) CK-MB (CK-2) Rel Index Troponin T C-Reactive Protein Albumin 03/22/17 03/22/17 03/22/17 06:13 07:40 07:40 WBC 16.4 H RBC 3.29 L Hgb 9.1 L Hct 28.4 L RDW 17.3 H Lymph % (Auto) [place] % (Auto) Lymph # [place] # Seg Neutrophils % Seg Neuts % (Manual) 73.0 H Lymphocytes % (Manual) 8.0 L Monocytes % (Manual) 14.0 H Seg Neutrophils # Seg Neutrophils # Man 12.0 H Lymphocytes # (Manual) Monocytes # (Manual) 2.3 H Heparin Anti-Xa Level POC ABG pH POC ABG pCO2 POC ABG pO2 Sodium Potassium Chloride 94.8 L Carbon Dioxide 21 L BUN 84 H Creatinine 9.4 H Glucose 188 H POC Glucose 190 H ALT Alkaline Phosphatase Total Creatine Kinase CK-MB (CK-2) CK-MB (CK-2) Rel Index Troponin T C-Reactive Protein Albumin 03/22/17 03/22/17 03/22/17 11:43 17:38 23:56 WBC RBC Hgb Hct RDW Lymph % (Auto) [place] % (Auto) Lymph # [place] # Seg Neutrophils % Seg Neuts % (Manual) Lymphocytes % (Manual) Monocytes % (Manual) Seg Neutrophils # Seg Neutrophils # Man Lymphocytes # (Manual) Monocytes # (Manual) Heparin Anti-Xa Level POC ABG pH POC ABG pCO2 POC ABG pO2 Sodium Potassium Chloride Carbon Dioxide BUN Creatinine Glucose POC Glucose 149 H 168 H 229 H ALT Alkaline Phosphatase Total Creatine Kinase CK-MB (CK-2) CK-MB (CK-2) Rel Index Troponin T C-Reactive Protein Albumin 03/23/17 03/23/17 03/23/17 05:00 05:00 05:21 WBC 14.0 H RBC 3.09 L Hgb 8.5 L Hct 27.0 L RDW 17.8 H Lymph % (Auto) [place] % (Auto) Lymph # [place] # Seg Neutrophils % Seg Neuts % (Manual) Lymphocytes % (Manual) 11.0 L Monocytes % (Manual) 13.0 H Seg Neutrophils # Seg Neutrophils # Man 9.2 H Lymphocytes # (Manual) Monocytes # (Manual) 1.8 H Heparin Anti-Xa Level POC ABG pH POC ABG pCO2 POC ABG pO2 Sodium Potassium Chloride 94.5 L Carbon Dioxide BUN 76 H Creatinine 7.5 H Glucose 192 H POC Glucose 195 H ALT Alkaline Phosphatase Total Creatine Kinase CK-MB (CK-2) CK-MB (CK-2) Rel Index Troponin T C-Reactive Protein Albumin 03/23/17 03/23/17 03/23/17 12:15 17:47 23:27 WBC RBC Hgb Hct RDW Lymph % (Auto) [place] % (Auto) Lymph # [place] # Seg Neutrophils % Seg Neuts % (Manual) Lymphocytes % (Manual) Monocytes % (Manual) Seg Neutrophils # Seg Neutrophils # Man Lymphocytes # (Manual) Monocytes # (Manual) Heparin Anti-Xa Level POC ABG pH POC ABG pCO2 POC ABG pO2 Sodium Potassium Chloride Carbon Dioxide BUN Creatinine Glucose POC Glucose 162 H 137 H 221 H ALT Alkaline Phosphatase Total Creatine Kinase CK-MB (CK-2) CK-MB (CK-2) Rel Index Troponin T C-Reactive Protein Albumin 03/24/17 03/24/17 03/24/17 05:42 08:49 08:49 WBC RBC 2.99 L Hgb 8.5 L Hct 25.9 L RDW 18.1 H Lymph % (Auto) [place] % (Auto) Lymph # [place] # Seg Neutrophils % Seg Neuts % (Manual) 83.0 H Lymphocytes % (Manual) 6.0 L Monocytes % (Manual) Seg Neutrophils # Seg Neutrophils # Man 8.5 H Lymphocytes # (Manual) 0.6 L Monocytes # (Manual) Heparin Anti-Xa Level POC ABG pH POC ABG pCO2 POC ABG pO2 Sodium Potassium Chloride 95.4 L Carbon Dioxide BUN 108 H Creatinine 9.4 H Glucose 203 H POC Glucose 216 H ALT Alkaline Phosphatase Total Creatine Kinase CK-MB (CK-2) CK-MB (CK-2) Rel Index Troponin T C-Reactive Protein Albumin 03/24/17 03/24/17 03/24/17 11:21 17:32 23:37 WBC RBC Hgb Hct RDW Lymph % (Auto) [place] % (Auto) Lymph # [place] # Seg Neutrophils % Seg Neuts % (Manual) Lymphocytes % (Manual) Monocytes % (Manual) Seg Neutrophils # Seg Neutrophils # Man Lymphocytes # (Manual) Monocytes # (Manual) Heparin Anti-Xa Level POC ABG pH POC ABG pCO2 POC ABG pO2 Sodium Potassium Chloride Carbon Dioxide BUN Creatinine Glucose POC Glucose 185 H 138 H 218 H ALT Alkaline Phosphatase Total Creatine Kinase CK-MB (CK-2) CK-MB (CK-2) Rel Index Troponin T C-Reactive Protein Albumin 03/25/17 03/25/17 03/25/17 04:38 04:38 05:24 WBC RBC 3.27 L Hgb 9.3 L Hct 29.8 L RDW 18.4 H Lymph % (Auto) [place] % (Auto) Lymph # [place] # Seg Neutrophils % Seg Neuts % (Manual) 78.0 H Lymphocytes % (Manual) 10.0 L Monocytes % (Manual) 9.0 H Seg Neutrophils # Seg Neutrophils # Man Lymphocytes # (Manual) 0.8 L Monocytes # (Manual) Heparin Anti-Xa Level POC ABG pH POC ABG pCO2 POC ABG pO2 Sodium 136 L Potassium Chloride 92.5 L Carbon Dioxide 17 L BUN 124 H Creatinine 9.7 H Glucose 217 H POC Glucose 211 H ALT Alkaline Phosphatase Total Creatine Kinase CK-MB (CK-2) CK-MB (CK-2) Rel Index Troponin T C-Reactive Protein Albumin 03/25/17 03/25/17 03/25/17 11:53 17:15 20:12 WBC RBC Hgb Hct RDW Lymph % (Auto) [place] % (Auto) Lymph # [place] # Seg Neutrophils % Seg Neuts % (Manual) Lymphocytes % (Manual) Monocytes % (Manual) Seg Neutrophils # Seg Neutrophils # Man Lymphocytes # (Manual) Monocytes # (Manual) Heparin Anti-Xa Level POC ABG pH 7.469 H POC ABG pCO2 POC ABG pO2 69 L Sodium Potassium Chloride Carbon Dioxide BUN Creatinine Glucose POC Glucose 165 H 173 H ALT Alkaline Phosphatase Total Creatine Kinase CK-MB (CK-2) CK-MB (CK-2) Rel Index Troponin T C-Reactive Protein Albumin 03/25/17 03/26/17 03/26/17 23:32 05:59 06:03 WBC RBC Hgb Hct RDW Lymph % (Auto) [place] % (Auto) Lymph # [place] # Seg Neutrophils % Seg Neuts % (Manual) Lymphocytes % (Manual) Monocytes % (Manual) Seg Neutrophils # Seg Neutrophils # Man Lymphocytes # (Manual) Monocytes # (Manual) Heparin Anti-Xa Level POC ABG pH POC ABG pCO2 POC ABG pO2 Sodium 136 L Potassium Chloride 91.6 L Carbon Dioxide 20 L BUN 97 H Creatinine 8.0 H Glucose 239 H POC Glucose 231 H 214 H ALT Alkaline Phosphatase Total Creatine Kinase CK-MB (CK-2) CK-MB (CK-2) Rel Index Troponin T C-Reactive Protein Albumin 03/26/17 03/26/17 03/26/17 12:55 18:14 23:27 WBC RBC Hgb Hct RDW Lymph % (Auto) [place] % (Auto) Lymph # [place] # Seg Neutrophils % Seg Neuts % (Manual) Lymphocytes % (Manual) Monocytes % (Manual) Seg Neutrophils # Seg Neutrophils # Man Lymphocytes # (Manual) Monocytes # (Manual) Heparin Anti-Xa Level POC ABG pH POC ABG pCO2 POC ABG pO2 Sodium Potassium Chloride Carbon Dioxide BUN Creatinine Glucose POC Glucose 220 H 236 H 221 H ALT Alkaline Phosphatase Total Creatine Kinase CK-MB (CK-2) CK-MB (CK-2) Rel Index Troponin T C-Reactive Protein Albumin 03/27/17 03/27/17 03/27/17 00:58 04:00 04:00 WBC 12.9 H RBC 3.33 L Hgb 9.2 L Hct 29.0 L RDW 18.0 H Lymph % (Auto) [place] % (Auto) Lymph # [place] # Seg Neutrophils % Seg Neuts % (Manual) 78.0 H Lymphocytes % (Manual) 13.0 L Monocytes % (Manual) Seg Neutrophils # Seg Neutrophils # Man 10.1 H Lymphocytes # (Manual) Monocytes # (Manual) Heparin Anti-Xa Level POC ABG pH POC ABG pCO2 POC ABG pO2 Sodium Potassium Chloride 91.8 L Carbon Dioxide BUN 108 H Creatinine 9.0 H Glucose 237 H POC Glucose ALT Alkaline Phosphatase Total Creatine Kinase CK-MB (CK-2) CK-MB (CK-2) Rel Index Troponin T C-Reactive Protein 7.90 H Albumin 03/27/17 03/27/17 03/27/17 05:24 11:17 17:40 WBC RBC Hgb Hct RDW Lymph % (Auto) [place] % (Auto) Lymph # [place] # Seg Neutrophils % Seg Neuts % (Manual) Lymphocytes % (Manual) Monocytes % (Manual) Seg Neutrophils # Seg Neutrophils # Man Lymphocytes # (Manual) Monocytes # (Manual) Heparin Anti-Xa Level POC ABG pH POC ABG pCO2 POC ABG pO2 Sodium Potassium Chloride Carbon Dioxide BUN Creatinine Glucose POC Glucose 231 H 172 H 223 H ALT Alkaline Phosphatase Total Creatine Kinase CK-MB (CK-2) CK-MB (CK-2) Rel Index Troponin T C-Reactive Protein Albumin 03/27/17 03/28/17 03/28/17 23:49 05:40 11:51 WBC RBC Hgb Hct RDW Lymph % (Auto) [place] % (Auto) Lymph # [place] # Seg Neutrophils % Seg Neuts % (Manual) Lymphocytes % (Manual) Monocytes % (Manual) Seg Neutrophils # Seg Neutrophils # Man Lymphocytes # (Manual) Monocytes # (Manual) Heparin Anti-Xa Level POC ABG pH POC ABG pCO2 POC ABG pO2 Sodium Potassium Chloride Carbon Dioxide BUN Creatinine Glucose POC Glucose 184 H 212 H 187 H ALT Alkaline Phosphatase Total Creatine Kinase CK-MB (CK-2) CK-MB (CK-2) Rel Index Troponin T C-Reactive Protein Albumin 03/28/17 03/29/17 03/29/17 17:11 00:25 05:28 WBC RBC Hgb Hct RDW Lymph % (Auto) [place] % (Auto) Lymph # [place] # Seg Neutrophils % Seg Neuts % (Manual) Lymphocytes % (Manual) Monocytes % (Manual) Seg Neutrophils # Seg Neutrophils # Man Lymphocytes # (Manual) Monocytes # (Manual) Heparin Anti-Xa Level POC ABG pH POC ABG pCO2 POC ABG pO2 Sodium Potassium Chloride Carbon Dioxide BUN Creatinine Glucose POC Glucose 177 H 147 H 143 H ALT Alkaline Phosphatase Total Creatine Kinase CK-MB (CK-2) CK-MB (CK-2) Rel Index Troponin T C-Reactive Protein Albumin Allied health notes reviewed: RT
--- NOTE | 2017-03-29 13:37 | XRay Report ---
SUPINE KUB: History: Dobbhoff tube placement. The abdominal gas pattern is unremarkable. No masses or organomegaly is identified and there is no gross evidence of free air or fluid. No significant soft tissue calcifications are noted. The feeding tube terminates in the fundus of the stomach. IMPRESSION: Feeding tube as described. No acute process in the abdomen.
[2017-03-29] MEDS: PEPCID PO SCH (13:50)
[2017-03-29] MEDS: PLAVIX PO SCH (13:50)
[2017-03-29] MEDS ORDERED: NACL 0.9% 1000 ML 1,000 ML ONE (15:34)
[2017-03-29] MEDS: PROCRIT IV PRN (18:51)
[2017-03-30] MEDS: DUONEB *Not for PRN Use IH SCH ×4 (02:54→20:42)
[2017-03-30] MEDS: HEPARIN SUB-Q SCH ×3 (06:08→21:42)
[2017-03-30] MEDS: LOPRESSOR PO SCH ×4 (06:10→21:39)
--- NOTE | 2017-03-30 09:28 | Progress Note ---
Assessment and Plan s/p v fib arrest (cardiac arrest) CAD patent lad stent, possible distal lad spasm, pt is allergic to asa HTN Post op afib CHOL ESRD on HD AMS Pulm HTN respiratory failure s/p extubation rec: cont current cardiac meds, given mental status, will have ep evaluations possible life vest Subjective Date of service: 03/30/17 Principal diagnosis: Acute Hypoxemic Resp Failure; STEMI Interval history: pt lying in bed awake and no complaints Objective Vital Signs Temp Pulse Pulse Pulse Pulse Pulse Pulse 03/30/17 09:02 81 03/30/17 08:32 03/30/17 08:00 76 03/30/17 07:00 97.8 F 72 72 72 72 03/30/17 06:10 81 03/30/17 05:18 98.9 F 81 81 81 81 03/30/17 04:05 70 03/30/17 02:56 83 03/30/17 02:45 79 03/30/17 00:41 98.2 F 76 76 76 76 03/29/17 23:38 87 03/29/17 23:02 84 03/29/17 22:37 97.8 F 86 86 86 86 03/29/17 20:19 03/29/17 20:14 88 03/29/17 19:42 98.1 F 03/29/17 18:55 98.6 F 61 03/29/17 18:45 86 03/29/17 18:30 92 H 03/29/17 18:15 89 03/29/17 18:04 86 03/29/17 18:02 86 03/29/17 18:00 87 03/29/17 17:45 86 03/29/17 17:30 82 03/29/17 17:15 81 03/29/17 17:00 77 03/29/17 16:45 95 H 03/29/17 16:30 78 03/29/17 16:25 74 03/29/17 16:12 72 03/29/17 16:00 98.6 F 74 03/29/17 15:58 73 03/29/17 15:42 72 03/29/17 15:30 86 03/29/17 15:15 64 03/29/17 15:00 97.2 F L 72 03/29/17 14:44 70 03/29/17 14:33 71 03/29/17 14:09 73 03/29/17 14:00 75 03/29/17 13:00 74 03/29/17 12:00 97.2 F L 75 03/29/17 11:00 74 03/29/17 10:00 73 Pulse Resp Resp BP BP Pulse Ox 03/30/17 09:02 18 03/30/17 08:32 100 03/30/17 08:00 18 03/30/17 07:00 72 18 113/55 94 03/30/17 06:10 121/58 03/30/17 05:18 81 18 121/58 96 03/30/17 04:05 03/30/17 02:56 24 03/30/17 02:45 22 03/30/17 00:41 76 18 128/60 98 03/29/17 23:38 23 100 03/29/17 23:02 123/58 03/29/17 22:37 86 20 126/80 98 03/29/17 20:19 98 03/29/17 20:14 28 H 03/29/17 19:42 03/29/17 18:55 20 130/61 03/29/17 18:45 148/68 03/29/17 18:30 154/71 03/29/17 18:15 143/73 03/29/17 18:04 145/73 03/29/17 18:02 142/71 03/29/17 18:00 26 H 145/73 94 03/29/17 17:45 151/75 03/29/17 17:30 127/64 03/29/17 17:15 150/74 03/29/17 17:00 24 134/62 99 03/29/17 16:45 143/71 03/29/17 16:30 122/63 03/29/17 16:25 142/74 03/29/17 16:12 127/58 03/29/17 16:00 22 127/58 100 03/29/17 15:58 141/66 03/29/17 15:42 135/69 03/29/17 15:30 126/66 03/29/17 15:15 139/64 03/29/17 15:00 22 139/64 100 03/29/17 14:44 20 03/29/17 14:33 22 03/29/17 14:09 159/62 06/30/17 14:00 20 144/57 100 03/29/17 13:00 22 144/57 99 03/29/17 12:00 21 139/52 100 03/29/17 11:00 22 129/54 100 03/29/17 10:00 19 142/60 100 - Physical Examination General: Appears Well, No Apparent Distress HEENT: Positive: Normocephaly, Mucus Membranes Moist Neck: Positive: neck supple, trachea midline Cardiac: Positive: Regular Rate Lungs: Positive: clear to auscultation Neuro: Positive: Other (awake and answers questions) Abdomen: Positive: Soft, Active Bowel Sounds Skin: Negative: Clear, Rash Musculoskeletal: No Fluid Collection, No Pain, Normal Range of Motion Extremities: Present: upper extr. pulses, lower extr. pulses. Absent: edema - Imaging and Cardiology EKG: report reviewed, image reviewed Echo: report reviewed (echo reviewed - EF 60 - 65%, mild MR< mild TR, moderate , mild LVH, mild to moderate pulmonary HTN, RVSP 47mmHg. ) Cardiac cath: report reviewed (patent lad stents and distal lad spasm resolved) - Telemetry EKG Rhythm: Sinus Rhythm (no vtach or afib noted last 24 hours) - EKG Sinus rhythms and dysrhythmias: sinus rhythm Myocardial infarction: inferior MA (acute or rec, anterior MA (acute or rec - Allied health notes Allied health notes reviewed: RT
[2017-03-30] MEDS: PLAVIX PO SCH (10:40)
[2017-03-30] MEDS: PEPCID PO SCH (10:40)
[2017-03-30] MEDS: LEVEMIR SUB-Q SCH (11:01)
--- NOTE | 2017-03-30 12:02 | Magnetic Resonance Report ---
MRI scan of brain: History: obtunded, encephalopathy. Technique: Multiplanar, multisequence images were obtained without contrast injection. Findings: Focal area of restricted diffusion measuring 3 mm in diameter noted at heidi right of the midline. T2-weighted images and flair imaging reveals increase in signal intensity in the same location. Ventricles are normal in size and midline in location. Chronic right occipital ischemia. No extra-axial fluid collection. Retention cyst or polyps right and left maxillary sinus and left sphenoid sinus. Impression: Acute/subacute ischemia heidi to the right of the midline. No hemorrhage. Chronic right occipital ischemia. Sinus disease.
--- NOTE | 2017-03-30 12:22 | Progress Note ---
Assessment and Plan Assessment and plan: 66-year-old female presents to the emergency department complaining of chest pain after dialysis. While in triage, the patient went unresponsive, and without a pulse, No palpable pulses were identified. 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 Patient was defibrillated a single time with 200 J. She received CPR protocol, was intubated and had ROSC, and she was then taken to the ICU. Postarrest ECG was consistent with anterior STEMI. 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 continue antihypertensive medications -Hyperlipidemia- Continue statin therapy Pulmonary Acute hypoxic respiratory failure, mech vent >96 hours Status post extubation 03/24/17, continue oxygen supplementation and noninvasive positive pressure ventilation as needed she is still very tachypneic today, continue pulmonary toilet Speech therapy evaluation, PT evaluation GI Nausea/Vomiting- Start on zofran, now resolved Dysphagia; aspiration with all consistencies; ST input appreicated, continue speech therapy Toxic metabolic encephalopathy EEG was reviewed, seizure is unlikely. encephalopathy most likely due to acute illness, cardiogenic shock, cardiac arrest and IV sedation now improved, Neurology input appreciated, awaiting MRI Suspected CVA Left facial droop/LUE weakness She likely suffered an anoxic injury during the period of cardiac arrest, await MRI report, patient is already on Plavix and statin for secondary stroke prevention, however it appears that the cause of her anoxic injury is cardiac arrest. ID Sepsis syndrome; ID consult appreciated, Continue current empiric therapy. Follow clinically for localizing issues., trachial aspirate cx, NGTD WBC count is slowly downtrending, continue abx till 03/29/17 RENAL/FEN End stage renal disease on hemodialysis. Nephrology following. 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 Accu-Cheks and sliding scale insulin. Morbid obesity- will director counseling bureau when clinically improved about lifestyle modification Anemia of CKD. Follow H&H. Transfuse as necessary. History of breast cancer. 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 The aggregate critical care time was [35] minutes. This time is in addition to time spent performing reported procedures but includes the following: [x] Data Review and interpretation [x] Patient assessment and monitoring of vital signs [x] Documentation [x] Medication orders and management History Interval history: , she admits some throat discomfort, and feels ok, denies sob, feels very weak and tired; Her daughter states that she has significant memory loss and she does not remember her grandkids Hospitalist Physical - Physical exam Narrative exam: General: appears chronically ill HEENT: MMM, EOMI, weak voice cardiac: S1-S2 heard lungs: clear to auscultation, abdomen: soft, nontender, nondistended bowel sounds positive extremities: no edema clubbing or cyanosis Skin: no rash or lesion Neuro: AAOx3, Left facial droop, LUE focal weakness, moves all extremities, obeys commands, generalized weakness Psych: calm, cooperative - Constitutional Vitals: Temp Pulse Resp BP Pulse Ox 97.8 F 81 18 113/55 100 03/30/17 07:00 03/30/17 09:02 03/30/17 09:02 03/30/17 07:00 03/30/17 08:32 General appearance: Present: no acute distress, obese Results - Labs CBC & Chem 7: 03/27/17 04:00 03/27/17 04:00 Labs: Laboratory Last Values WBC 12.9 K/mm3 (4.5-11.0) H 03/27/17 04:00 RBC 3.33 M/mm3 (3.65-5.03) L 03/27/17 04:00 Hgb 9.2 gm/dl (10.1-14.3) L 03/27/17 04:00 Hct 29.0 % (30.3-42.9) L 03/27/17 04:00 MCV 87 fl (79-97) D 03/27/17 04:00 MCH 28 pg (28-32) 03/27/17 04:00 MCHC 32 % (30-34) 03/27/17 04:00 RDW 18.0 % (13.2-15.2) H 03/27/17 04:00 Plt Count 251 K/mm3 (140-440) 03/27/17 04:00 Lymph % (Auto) Investigative Analyst 03/25/17 04:38 [place] % (Auto) Investigative Analyst 03/25/17 04:38 Eos % (Auto) Investigative Analyst 03/25/17 04:38 Baso % (Auto) Investigative Analyst 03/25/17 04:38 Lymph # Investigative Analyst 03/25/17 04:38 [place] # Investigative Analyst 03/25/17 04:38 Eos # Investigative Analyst 03/25/17 04:38 Baso # Investigative Analyst 03/25/17 04:38 Add Manual Diff Complete 03/27/17 04:00 Total Counted 100 03/27/17 04:00 Seg Neutrophils % Investigative Analyst 03/25/17 04:38 Seg Neuts % (Manual) 78.0 % (40.0-70.0) H 03/27/17 04:00 Band Neutrophils % 1.0 % 03/27/17 04:00 Lymphocytes % (Manual) 13.0 % (13.4-35.0) L 03/27/17 04:00 Reactive Lymphs % (Man) 0 % 03/27/17 04:00 Monocytes % (Manual) 6.0 % (0.0-7.3) 03/27/17 04:00 Eosinophils % (Manual) 2.0 % (0.0-4.3) 03/27/17 04:00 Basophils % (Manual) 0 % (0.0-1.8) 03/27/17 04:00 Metamyelocytes % 0 % 03/27/17 04:00 Myelocytes % 0 % 03/27/17 04:00 Promyelocytes % 0 % 03/27/17 04:00 Blast Cells % 0 % 03/27/17 04:00 Nucleated RBC % Not Reportable 03/27/17 04:00 Seg Neutrophils # Investigative Analyst 03/25/17 04:38 Seg Neutrophils # Man 10.1 K/mm3 (1.8-7.7) H 03/27/17 04:00 Band Neutrophils # 0.1 K/mm3 03/27/17 04:00 Lymphocytes # (Manual) 1.7 K/mm3 (1.2-5.4) 03/27/17 04:00 Abs React Lymphs (Man) 0.0 K/mm3 03/27/17 04:00 Monocytes # (Manual) 0.8 K/mm3 (0.0-0.8) 03/27/17 04:00 Eosinophils # (Manual) 0.3 K/mm3 (0.0-0.4) 03/27/17 04:00 Basophils # (Manual) 0.0 K/mm3 (0.0-0.1) 03/27/17 04:00 Metamyelocytes # 0.0 K/mm3 03/27/17 04:00 Myelocytes # 0.0 K/mm3 03/27/17 04:00 Promyelocytes # 0.0 K/mm3 03/27/17 04:00 Blast Cells # 0.0 K/mm3 03/27/17 04:00 WBC Morphology Not Reportable 03/27/17 04:00 Hypersegmented Neuts Not Reportable 03/27/17 04:00 Hyposegmented Neuts Not Reportable 03/27/17 04:00 Hypogranular Neuts Not Reportable 03/27/17 04:00 Smudge Cells Not Reportable 03/27/17 04:00 Toxic Granulation Not Reportable 03/27/17 04:00 Toxic Vacuolation Not Reportable 03/27/17 04:00 Dohle Bodies Not Reportable 03/27/17 04:00 Pelger-Huet Anomaly Not Reportable 03/27/17 04:00 Tunde Rods Not Reportable 03/27/17 04:00 Platelet Estimate Consistent w auto 03/27/17 04:00 Clumped Platelets Not Reportable 03/27/17 04:00 Plt Clumps, EDTA Not Reportable 03/27/17 04:00 Large Platelets Not Reportable 03/27/17 04:00 Giant Platelets Not Reportable 03/27/17 04:00 Platelet Satelliting Not Reportable 03/27/17 04:00 Plt Morphology Comment Not Reportable 03/27/17 04:00 RBC Morphology Not Reportable 03/27/17 04:00 Dimorphic RBCs Not Reportable 03/27/17 04:00 Polychromasia Few 03/27/17 04:00 Hypochromasia Not Reportable 03/27/17 04:00 Poikilocytosis Not Reportable 03/27/17 04:00 Anisocytosis Not Reportable 03/27/17 04:00 Microcytosis Not Reportable 03/27/17 04:00 Macrocytosis Not Reportable 03/27/17 04:00 Spherocytes Not Reportable 03/27/17 04:00 Pappenheimer Bodies Not Reportable 03/27/17 04:00 Sickle Cells Not Reportable 03/27/17 04:00 Target Cells Not Reportable 03/27/17 04:00 Tear Drop Cells Not Reportable 03/27/17 04:00 Ovalocytes Not Reportable 03/27/17 04:00 Helmet Cells Not Reportable 03/27/17 04:00 [place] Bodies Not Reportable 03/27/17 04:00 [place] Rings Not Reportable 03/27/17 04:00 [place] Cells Not Reportable 03/27/17 04:00 Bite Cells Not Reportable 03/27/17 04:00 Crenated Cell Not Reportable 03/27/17 04:00 Elliptocytes Not Reportable 03/27/17 04:00 Acanthocytes (Spur) Not Reportable 03/27/17 04:00 Rouleaux Not Reportable 03/27/17 04:00 Hemoglobin C Crystals Not Reportable 03/27/17 04:00 Schistocytes Not Reportable 03/27/17 04:00 Malaria parasites Not Reportable 03/27/17 04:00 [place] Bodies Not Reportable 03/27/17 04:00 Hem Pathologist Commnt No 03/27/17 04:00 PT 13.4 Sec. (12.2-14.9) 03/16/17 11:07 INR 1.03 (0.87-1.13) 03/16/17 11:07 APTT 24.1 Sec. (24.2-36.6) L 03/16/17 11:07 Activated Clotting Time 125 (74-137) 03/17/17 08:23 Heparin Anti-Xa Level < 0.10 U.I./ml (0.3-0.7) L 03/17/17 21:12 POC ABG pH 7.469 (7.35-7.45) H 03/25/17 20:12 POC ABG pCO2 36.2 (35-45) 03/25/17 20:12 POC ABG pO2 69 (80-105) L 03/25/17 20:12 POC ABG HCO3 26.2 03/25/17 20:12 POC ABG Total CO2 27 03/25/17 20:12 POC ABG O2 Sat 95 03/25/17 20:12 POC ABG Base Excess 3 03/25/17 20:12 FiO2 30 % 03/25/17 20:12 Sodium 137 mmol/L (137-145) 03/27/17 04:00 Potassium 4.4 mmol/L (3.6-5.0) 03/27/17 04:00 Chloride 91.8 mmol/L (98-107) L 03/27/17 04:00 Carbon Dioxide 22 mmol/L (22-30) 03/27/17 04:00 Anion Gap 28 mmol/L 03/27/17 04:00 BUN 108 mg/dL (7-17) H 03/27/17 04:00 Creatinine 9.0 mg/dL (0.7-1.2) H 03/27/17 04:00 Estimated GFR 5 ml/min 03/27/17 04:00 BUN/Creatinine Ratio 12.00 % 03/27/17 04:00 Glucose 237 mg/dL (65-100) H 03/27/17 04:00 POC Glucose 299 (70-105) H 03/30/17 10:42 Lactic Acid 1.50 mmol/L (0.7-2.0) 03/27/17 00:58 Calcium 9.7 mg/dL (8.4-10.2) 03/27/17 04:00 Total Bilirubin 0.50 mg/dL (0.1-1.2) 03/21/17 07:45 AST 23 units/L (5-40) 03/21/17 07:45 ALT 40 units/L (7-56) 03/21/17 07:45 Alkaline Phosphatase 244 units/L (35-129) H 03/21/17 07:45 Ammonia 38.0 umol/L (25-60) 03/18/17 19:02 Total Creatine Kinase 282 units/L (30-135) H 03/16/17 16:36 CK-MB (CK-2) 24.2 ng/mL (0.0-4.0) H 03/16/17 16:36 CK-MB (CK-2) Rel Index 8.5 (0-4) H 03/16/17 16:36 Troponin T 0.656 ng/mL (0.00-0.029) H* D 03/16/17 16:36 C-Reactive Protein 7.90 mg/dL (0.00-1.30) H 03/27/17 00:58 Total Protein 7.3 g/dL (6.3-8.2) 03/21/17 07:45 Albumin 2.8 g/dL (3.9-5) L 03/21/17 07:45 Albumin/Globulin Ratio 0.6 % 03/21/17 07:45 Triglycerides 134 mg/dL (2-149) 03/16/17 11:07 Cholesterol 228 mg/dL (50-199) H 03/16/17 11:07 LDL Cholesterol Direct 165 mg/dL (50-130) H 03/16/17 11:07 HDL Cholesterol 37 mg/dL (40-59) L 03/16/17 11:07 Cholesterol/HDL Ratio 6.16 % 03/16/17 11:07 TSH 0.746 mlU/mL (0.270-4.200) 03/18/17 19:02 Random Vancomycin 20.9 ug/mL (0-40.0) 03/22/17 07:40 Hepatitis A IgM Ab Non-reactive (NonReactive) 03/19/17 04:31 Hep Bs Antigen Non-reactive (Negative) 03/19/17 04:31 Hep B Core IgM Ab Non-reactive (NonReactive) 03/19/17 04:31 Hepatitis C Antibody Non-reactive (NonReactive) 03/19/17 04:31 Blood Type A POSITIVE 03/16/17 16:36 Antibody Screen TNR 03/16/17 16:36 CLAIR Antibody Screen Negative 03/16/17 16:36
--- NOTE | 2017-03-30 14:36 | Progress Note ---
Assessment and Plan Assessment: * End stage renal disease on HD (TTS outpatient schedule) * STEMI s/p LHC with PCI * s/p cardiac/Vfib arrest * Cardiogenic shock * Anemia secondary to ESRD * Secondary hyperparathyroidism Plan: * Hemodialysis MWF schedule for now; change to TTS schedule when nearing discharge * UF as tolerated * Optimization of cardiac function; cardiology recommendations reviewed * Epogen for goal Hb 10-12 * Diet when cleared by speech pathology Subjective Date of service: 03/30/17 Principal diagnosis: Acute Hypoxemic Resp Failure; STEMI Interval history: Patient transferred to the floor. She is requesting something to eat. Speech eval pending. Objective - Vital Signs Vital signs: Vital Signs - 12hr 03/30/17 03/30/17 03/30/17 02:45 02:56 04:05 Temperature Pulse Rate 70 Pulse Rate [ 79 83 Anterior Bilateral Throughout] Pulse Rate [ From Monitor] Pulse Rate [ Left Dorsalis Pedis] Pulse Rate [ Left Radial] Pulse Rate [ Right Dorsalis Pedis] Pulse Rate [ Right Radial] Respiratory Rate Respiratory 22 24 Rate [Anterior Bilateral Throughout] Blood Pressure Blood Pressure [Left Arm] O2 Sat by Pulse Oximetry 03/30/17 03/30/17 03/30/17 05:18 06:10 07:00 Temperature 98.9 F 97.8 F Pulse Rate 81 Pulse Rate [ Anterior Bilateral Throughout] Pulse Rate [ 81 72 From Monitor] Pulse Rate [ 81 72 Left Dorsalis Pedis] Pulse Rate [ 81 72 Left Radial] Pulse Rate [ 81 72 Right Dorsalis Pedis] Pulse Rate [ 81 72 Right Radial] Respiratory 18 18 Rate Respiratory Rate [Anterior Bilateral Throughout] Blood Pressure 121/58 Blood Pressure 121/58 113/55 [Left Arm] O2 Sat by Pulse 96 94 Oximetry 03/30/17 03/30/17 03/30/17 08:00 08:32 09:02 Temperature Pulse Rate Pulse Rate [ 76 81 Anterior Bilateral Throughout] Pulse Rate [ From Monitor] Pulse Rate [ Left Dorsalis Pedis] Pulse Rate [ Left Radial] Pulse Rate [ Right Dorsalis Pedis] Pulse Rate [ Right Radial] Respiratory Rate Respiratory 18 18 Rate [Anterior Bilateral Throughout] Blood Pressure Blood Pressure [Left Arm] O2 Sat by Pulse 100 Oximetry 03/30/17 03/30/17 03/30/17 12:41 13:23 13:43 Temperature Pulse Rate 78 Pulse Rate [ 76 77 Anterior Bilateral Throughout] Pulse Rate [ From Monitor] Pulse Rate [ Left Dorsalis Pedis] Pulse Rate [ Left Radial] Pulse Rate [ Right Dorsalis Pedis] Pulse Rate [ Right Radial] Respiratory Rate Respiratory 18 18 Rate [Anterior Bilateral Throughout] Blood Pressure 110/59 Blood Pressure [Left Arm] O2 Sat by Pulse Oximetry - General Appearance General appearance: well-developed, well-nourished EENT: ATNC Respiratory: Present: Decreased Breath Sounds Cardiology: regular, S1S2 Gastrointestinal: normal, no tenderness, no distended Integumentary: no rash Musculoskeletal: other (no edema) Psychiatric: cooperative - Lab 03/27/17 04:00 03/27/17 04:00 Most recent lab results Calcium 9.7 mg/dL (8.4-10.2) 03/27/17 04:00
--- NOTE | 2017-03-30 14:59 | Progress Note ---
Assessment and Plan - Patient Problems (1) Acute hypoxemic respiratory failure Current Visit: Yes Status: Resolved Plan to address problem: - will continue aspiration precautions - will continue bronchodilators and pulmonary toilet - continue to wean oxygen for sats > 94% - continue to use BIPAP scheduled qhs and prn daytime - continue HD/UF for toxin and volume clearance - prn ABG's to evaluate for hypercapnia - CXR reviewed and no acute process (2) ESRD on dialysis Current Visit: Yes Status: Acute Plan to address problem: - continue HD/UF per nephrology prescription - oliguric - follow electrolytes and correct as necessary (3) Obesity (BMI 30-39.9) Current Visit: Yes Status: Chronic Plan to address problem: - weight loss counselled - outpatient sleep clinic evaluation (4) Sepsis syndrome Current Visit: Yes Status: Acute Plan to address problem: - weaned off dopamine - CRP significantly improved - complete empiric AB's - completed cefipime course also - per ID recs otherwise (5) STEMI (ST elevation myocardial infarction) Current Visit: Yes Status: Acute Qualifiers: Involved coronary artery: unspecified coronary artery Qualified Code(s): I21.3 - ST elevation (STEMI) myocardial infarction of unspecified site Plan to address problem: - on SQ heparin now for VTE prophylaxis - clinically improved - on plavix - cardiology on case and managing (will defer otherwise) (6) Type 2 diabetes mellitus Current Visit: No Status: Chronic Qualifiers: Diabetes mellitus complication status: D Diabetes mellitus complication detail: D Diabetic retinopathy severity: D Proliferative retinopathy type: P Diabetes mellitus macular edema: D Diabetes mellitus data deliverables manager insulin use : D Laterality: L Chronic kidney disease stage: C Plan to address problem: - continue SSI for glycemic control (7) Acute encephalopathy Current Visit: Yes Status: Acute Plan to address problem: - likely toxic-metabolic component - follow MRI report (? anoxic component) (8) Discharge planning issues Current Visit: Yes Status: Acute Plan to address problem: - doing better overall ....will re-evaluate in am & prn Subjective Date of service: 03/30/17 Principal diagnosis: Acute Hypoxemic Resp Failure; STEMI Interval history: Seen and examined at bedside; 24 hour events reviewed; nursing and respiratory care staff consulted; no adverse overnight events reported to me; resting peacefully in bed but still pretty weak; in room; she denies acute chest pains or increased SOB Objective Vital Signs - 12hr 03/30/17 03/30/17 03/30/17 04:05 05:18 06:10 Temperature 98.9 F Pulse Rate 70 81 Pulse Rate [ Anterior Bilateral Throughout] Pulse Rate [ 81 From Monitor] Pulse Rate [ 81 Left Dorsalis Pedis] Pulse Rate [ 81 Left Radial] Pulse Rate [ 81 Right Dorsalis Pedis] Pulse Rate [ 81 Right Radial] Respiratory 18 Rate Respiratory Rate [Anterior Bilateral Throughout] Blood Pressure 121/58 Blood Pressure 121/58 [Left Arm] O2 Sat by Pulse 96 Oximetry 03/30/17 03/30/17 03/30/17 07:00 08:00 08:32 Temperature 97.8 F Pulse Rate Pulse Rate [ 76 Anterior Bilateral Throughout] Pulse Rate [ 72 From Monitor] Pulse Rate [ 72 Left Dorsalis Pedis] Pulse Rate [ 72 Left Radial] Pulse Rate [ 72 Right Dorsalis Pedis] Pulse Rate [ 72 Right Radial] Respiratory 18 Rate Respiratory 18 Rate [Anterior Bilateral Throughout] Blood Pressure Blood Pressure 113/55 [Left Arm] O2 Sat by Pulse 94 100 Oximetry 03/30/17 03/30/17 03/30/17 09:02 12:41 13:23 Temperature Pulse Rate 78 Pulse Rate [ 81 76 Anterior Bilateral Throughout] Pulse Rate [ From Monitor] Pulse Rate [ Left Dorsalis Pedis] Pulse Rate [ Left Radial] Pulse Rate [ Right Dorsalis Pedis] Pulse Rate [ Right Radial] Respiratory Rate Respiratory 18 18 Rate [Anterior Bilateral Throughout] Blood Pressure 110/59 Blood Pressure [Left Arm] O2 Sat by Pulse Oximetry 03/30/17 13:43 Temperature Pulse Rate Pulse Rate [ 77 Anterior Bilateral Throughout] Pulse Rate [ From Monitor] Pulse Rate [ Left Dorsalis Pedis] Pulse Rate [ Left Radial] Pulse Rate [ Right Dorsalis Pedis] Pulse Rate [ Right Radial] Respiratory Rate Respiratory 18 Rate [Anterior Bilateral Throughout] Blood Pressure Blood Pressure [Left Arm] O2 Sat by Pulse Oximetry Constitutional: no acute distress, other (somnolent) Eyes: non-icteric ENT: oropharynx moist Neck: supple, no lymphadenopathy, no JVD Effort: mildly labored Ascultation: Bilateral: diminished breath sounds, rales (scant in bases) Cardiovascular: regular rate and rhythm Gastrointestinal: normoactive bowel sounds, soft, non-tender, non-distended Integumentary: normal, other (Femoral CVC) Extremities: no cyanosis, no edema, pulses normal, no ischemia or petechiae Neurologic: normal mental status, non-focal exam (Moves all extremities, tracks my voice, attempts to vocalize in response to questions), pupils equal and round , motor strength normal and, other (very weak) Psychiatric: mood appropriate, affect normal, depressed CBC and BMP: 03/27/17 04:00 03/27/17 04:00 ABG, PT/INR, D-dimer: ABG POC ABG pH 7.469 (7.35-7.45) H 03/25/17 20:12 POC ABG pCO2 36.2 (35-45) 03/25/17 20:12 POC ABG pO2 69 (80-105) L 03/25/17 20:12 POC ABG HCO3 26.2 03/25/17 20:12 POC ABG Total CO2 27 03/25/17 20:12 POC ABG O2 Sat 95 03/25/17 20:12 PT/INR, D-dimer PT 13.4 Sec. (12.2-14.9) 03/16/17 11:07 INR 1.03 (0.87-1.13) 03/16/17 11:07 Abnormal lab findings: Abnormal Labs 03/16/17 03/16/17 03/17/17 16:36 18:00 03:42 WBC 20.6 H RBC Hgb Hct RDW 17.3 H Lymph % (Auto) [place] % (Auto) Lymph # [place] # Seg Neutrophils % Seg Neuts % (Manual) 84.0 H Lymphocytes % (Manual) 3.0 L Monocytes % (Manual) 11.0 H Seg Neutrophils # Seg Neutrophils # Man 17.3 H Lymphocytes # (Manual) 0.6 L Monocytes # (Manual) 2.3 H Heparin Anti-Xa Level POC ABG pH 7.336 L POC ABG pCO2 47.9 H POC ABG pO2 189 H Sodium Potassium Chloride Carbon Dioxide BUN Creatinine Glucose POC Glucose ALT Alkaline Phosphatase Total Creatine Kinase 282 H CK-MB (CK-2) 24.2 H CK-MB (CK-2) Rel Index 8.5 H Troponin T 0.656 H* D C-Reactive Protein Albumin 03/17/17 03/17/17 03/17/17 03:42 04:21 17:15 WBC RBC Hgb Hct RDW Lymph % (Auto) [place] % (Auto) Lymph # [place] # Seg Neutrophils % Seg Neuts % (Manual) Lymphocytes % (Manual) Monocytes % (Manual) Seg Neutrophils # Seg Neutrophils # Man Lymphocytes # (Manual) Monocytes # (Manual) Heparin Anti-Xa Level 0.10 L POC ABG pH POC ABG pCO2 POC ABG pO2 Sodium 131 L Potassium 5.3 H D Chloride 89.5 L Carbon Dioxide 21 L BUN 39 H Creatinine 7.0 H Glucose 151 H POC Glucose ALT Alkaline Phosphatase Total Creatine Kinase CK-MB (CK-2) CK-MB (CK-2) Rel Index Troponin T C-Reactive Protein 33.90 H Albumin 03/17/17 03/18/17 03/18/17 21:12 03:33 03:33 WBC 17.6 H RBC 3.59 L Hgb Hct RDW 16.9 H Lymph % (Auto) 4.2 L [place] % (Auto) 11.8 H Lymph # 0.7 L [place] # 2.1 H Seg Neutrophils % 83.3 H Seg Neuts % (Manual) Lymphocytes % (Manual) Monocytes % (Manual) Seg Neutrophils # 14.7 H Seg Neutrophils # Man Lymphocytes # (Manual) Monocytes # (Manual) Heparin Anti-Xa Level < 0.10 L POC ABG pH POC ABG pCO2 POC ABG pO2 Sodium 127 L Potassium 6.1 H* Chloride 87.2 L Carbon Dioxide BUN 55 H Creatinine 8.7 H Glucose 140 H POC Glucose ALT Alkaline Phosphatase Total Creatine Kinase CK-MB (CK-2) CK-MB (CK-2) Rel Index Troponin T C-Reactive Protein Albumin 03/18/17 03/18/17 03/19/17 04:34 22:15 00:04 WBC RBC Hgb Hct RDW Lymph % (Auto) [place] % (Auto) Lymph # [place] # Seg Neutrophils % Seg Neuts % (Manual) Lymphocytes % (Manual) Monocytes % (Manual) Seg Neutrophils # Seg Neutrophils # Man Lymphocytes # (Manual) Monocytes # (Manual) Heparin Anti-Xa Level POC ABG pH 7.289 L POC ABG pCO2 48.7 H POC ABG pO2 Sodium Potassium 5.6 H Chloride Carbon Dioxide BUN Creatinine Glucose POC Glucose 108 H ALT Alkaline Phosphatase Total Creatine Kinase CK-MB (CK-2) CK-MB (CK-2) Rel Index Troponin T C-Reactive Protein Albumin 03/19/17 03/19/17 03/19/17 05:22 08:00 08:00 WBC 16.3 H RBC 3.15 L Hgb 8.8 L Hct 27.3 L RDW 17.4 H Lymph % (Auto) 3.4 L [place] % (Auto) 10.1 H Lymph # 0.5 L [place] # 1.7 H Seg Neutrophils % 85.4 H Seg Neuts % (Manual) Lymphocytes % (Manual) Monocytes % (Manual) Seg Neutrophils # 13.9 H Seg Neutrophils # Man Lymphocytes # (Manual) Monocytes # (Manual) Heparin Anti-Xa Level POC ABG pH POC ABG pCO2 POC ABG pO2 Sodium 131 L Potassium Chloride 89.3 L Carbon Dioxide BUN 56 H Creatinine 7.8 H Glucose 122 H POC Glucose 146 H ALT 59 H Alkaline Phosphatase 208 H Total Creatine Kinase CK-MB (CK-2) CK-MB (CK-2) Rel Index Troponin T C-Reactive Protein Albumin 2.6 L 03/19/17 03/19/17 03/19/17 08:06 11:50 17:36 WBC RBC Hgb Hct RDW Lymph % (Auto) [place] % (Auto) Lymph # [place] # Seg Neutrophils % Seg Neuts % (Manual) Lymphocytes % (Manual) Monocytes % (Manual) Seg Neutrophils # Seg Neutrophils # Man Lymphocytes # (Manual) Monocytes # (Manual) Heparin Anti-Xa Level POC ABG pH 7.338 L POC ABG pCO2 49.2 H POC ABG pO2 110 H Sodium Potassium Chloride Carbon Dioxide BUN Creatinine Glucose POC Glucose 172 H 152 H ALT Alkaline Phosphatase Total Creatine Kinase CK-MB (CK-2) CK-MB (CK-2) Rel Index Troponin T C-Reactive Protein Albumin 03/20/17 03/20/17 03/20/17 00:14 04:15 05:06 WBC RBC Hgb Hct RDW Lymph % (Auto) [place] % (Auto) Lymph # [place] # Seg Neutrophils % Seg Neuts % (Manual) Lymphocytes % (Manual) Monocytes % (Manual) Seg Neutrophils # Seg Neutrophils # Man Lymphocytes # (Manual) Monocytes # (Manual) Heparin Anti-Xa Level POC ABG pH 7.288 L POC ABG pCO2 51.4 H POC ABG pO2 Sodium Potassium Chloride Carbon Dioxide BUN Creatinine Glucose POC Glucose 132 H 166 H ALT Alkaline Phosphatase Total Creatine Kinase CK-MB (CK-2) CK-MB (CK-2) Rel Index Troponin T C-Reactive Protein Albumin 03/20/17 03/20/17 03/20/17 12:07 15:45 17:41 WBC RBC Hgb Hct RDW Lymph % (Auto) [place] % (Auto) Lymph # [place] # Seg Neutrophils % Seg Neuts % (Manual) Lymphocytes % (Manual) Monocytes % (Manual) Seg Neutrophils # Seg Neutrophils # Man Lymphocytes # (Manual) Monocytes # (Manual) Heparin Anti-Xa Level POC ABG pH POC ABG pCO2 POC ABG pO2 Sodium Potassium Chloride Carbon Dioxide BUN Creatinine Glucose POC Glucose 193 H 172 H 156 H ALT Alkaline Phosphatase Total Creatine Kinase CK-MB (CK-2) CK-MB (CK-2) Rel Index Troponin T C-Reactive Protein Albumin 03/20/17 03/21/17 03/21/17 23:13 04:42 05:41 WBC RBC Hgb Hct RDW Lymph % (Auto) [place] % (Auto) Lymph # [place] # Seg Neutrophils % Seg Neuts % (Manual) Lymphocytes % (Manual) Monocytes % (Manual) Seg Neutrophils # Seg Neutrophils # Man Lymphocytes # (Manual) Monocytes # (Manual) Heparin Anti-Xa Level POC ABG pH 7.321 L POC ABG pCO2 56.8 H POC ABG pO2 73 L Sodium Potassium Chloride Carbon Dioxide BUN Creatinine Glucose POC Glucose 141 H 159 H ALT Alkaline Phosphatase Total Creatine Kinase CK-MB (CK-2) CK-MB (CK-2) Rel Index Troponin T C-Reactive Protein Albumin 03/21/17 03/21/17 03/21/17 07:45 07:45 12:16 WBC 15.1 H RBC 3.32 L Hgb 9.2 L Hct 28.9 L RDW 17.4 H Lymph % (Auto) 4.7 L [place] % (Auto) 16.0 H Lymph # 0.7 L [place] # 2.4 H Seg Neutrophils % 78.6 H Seg Neuts % (Manual) Lymphocytes % (Manual) Monocytes % (Manual) Seg Neutrophils # 11.8 H Seg Neutrophils # Man Lymphocytes # (Manual) Monocytes # (Manual) Heparin Anti-Xa Level POC ABG pH POC ABG pCO2 POC ABG pO2 Sodium Potassium Chloride 95.4 L Carbon Dioxide BUN 55 H Creatinine 6.9 H Glucose 188 H POC Glucose 226 H ALT Alkaline Phosphatase 244 H Total Creatine Kinase CK-MB (CK-2) CK-MB (CK-2) Rel Index Troponin T C-Reactive Protein Albumin 2.8 L 03/21/17 03/21/17 03/22/17 17:17 23:28 04:49 WBC RBC Hgb Hct RDW Lymph % (Auto) [place] % (Auto) Lymph # [place] # Seg Neutrophils % Seg Neuts % (Manual) Lymphocytes % (Manual) Monocytes % (Manual) Seg Neutrophils # Seg Neutrophils # Man Lymphocytes # (Manual) Monocytes # (Manual) Heparin Anti-Xa Level POC ABG pH 7.323 L POC ABG pCO2 49.5 H POC ABG pO2 77 L Sodium Potassium Chloride Carbon Dioxide BUN Creatinine Glucose POC Glucose 192 H 199 H ALT Alkaline Phosphatase Total Creatine Kinase CK-MB (CK-2) CK-MB (CK-2) Rel Index Troponin T C-Reactive Protein Albumin 03/22/17 03/22/17 03/22/17 06:13 07:40 07:40 WBC 16.4 H RBC 3.29 L Hgb 9.1 L Hct 28.4 L RDW 17.3 H Lymph % (Auto) [place] % (Auto) Lymph # [place] # Seg Neutrophils % Seg Neuts % (Manual) 73.0 H Lymphocytes % (Manual) 8.0 L Monocytes % (Manual) 14.0 H Seg Neutrophils # Seg Neutrophils # Man 12.0 H Lymphocytes # (Manual) Monocytes # (Manual) 2.3 H Heparin Anti-Xa Level POC ABG pH POC ABG pCO2 POC ABG pO2 Sodium Potassium Chloride 94.8 L Carbon Dioxide 21 L BUN 84 H Creatinine 9.4 H Glucose 188 H POC Glucose 190 H ALT Alkaline Phosphatase Total Creatine Kinase CK-MB (CK-2) CK-MB (CK-2) Rel Index Troponin T C-Reactive Protein Albumin 03/22/17 03/22/17 03/22/17 11:43 17:38 23:56 WBC RBC Hgb Hct RDW Lymph % (Auto) [place] % (Auto) Lymph # [place] # Seg Neutrophils % Seg Neuts % (Manual) Lymphocytes % (Manual) Monocytes % (Manual) Seg Neutrophils # Seg Neutrophils # Man Lymphocytes # (Manual) Monocytes # (Manual) Heparin Anti-Xa Level POC ABG pH POC ABG pCO2 POC ABG pO2 Sodium Potassium Chloride Carbon Dioxide BUN Creatinine Glucose POC Glucose 149 H 168 H 229 H ALT Alkaline Phosphatase Total Creatine Kinase CK-MB (CK-2) CK-MB (CK-2) Rel Index Troponin T C-Reactive Protein Albumin 03/23/17 03/23/17 03/23/17 05:00 05:00 05:21 WBC 14.0 H RBC 3.09 L Hgb 8.5 L Hct 27.0 L RDW 17.8 H Lymph % (Auto) [place] % (Auto) Lymph # [place] # Seg Neutrophils % Seg Neuts % (Manual) Lymphocytes % (Manual) 11.0 L Monocytes % (Manual) 13.0 H Seg Neutrophils # Seg Neutrophils # Man 9.2 H Lymphocytes # (Manual) Monocytes # (Manual) 1.8 H Heparin Anti-Xa Level POC ABG pH POC ABG pCO2 POC ABG pO2 Sodium Potassium Chloride 94.5 L Carbon Dioxide BUN 76 H Creatinine 7.5 H Glucose 192 H POC Glucose 195 H ALT Alkaline Phosphatase Total Creatine Kinase CK-MB (CK-2) CK-MB (CK-2) Rel Index Troponin T C-Reactive Protein Albumin 03/23/17 03/23/17 03/23/17 12:15 17:47 23:27 WBC RBC Hgb Hct RDW Lymph % (Auto) [place] % (Auto) Lymph # [place] # Seg Neutrophils % Seg Neuts % (Manual) Lymphocytes % (Manual) Monocytes % (Manual) Seg Neutrophils # Seg Neutrophils # Man Lymphocytes # (Manual) Monocytes # (Manual) Heparin Anti-Xa Level POC ABG pH POC ABG pCO2 POC ABG pO2 Sodium Potassium Chloride Carbon Dioxide BUN Creatinine Glucose POC Glucose 162 H 137 H 221 H ALT Alkaline Phosphatase Total Creatine Kinase CK-MB (CK-2) CK-MB (CK-2) Rel Index Troponin T C-Reactive Protein Albumin 03/24/17 03/24/17 03/24/17 05:42 08:49 08:49 WBC RBC 2.99 L Hgb 8.5 L Hct 25.9 L RDW 18.1 H Lymph % (Auto) [place] % (Auto) Lymph # [place] # Seg Neutrophils % Seg Neuts % (Manual) 83.0 H Lymphocytes % (Manual) 6.0 L Monocytes % (Manual) Seg Neutrophils # Seg Neutrophils # Man 8.5 H Lymphocytes # (Manual) 0.6 L Monocytes # (Manual) Heparin Anti-Xa Level POC ABG pH POC ABG pCO2 POC ABG pO2 Sodium Potassium Chloride 95.4 L Carbon Dioxide BUN 108 H Creatinine 9.4 H Glucose 203 H POC Glucose 216 H ALT Alkaline Phosphatase Total Creatine Kinase CK-MB (CK-2) CK-MB (CK-2) Rel Index Troponin T C-Reactive Protein Albumin 03/24/17 03/24/17 03/24/17 11:21 17:32 23:37 WBC RBC Hgb Hct RDW Lymph % (Auto) [place] % (Auto) Lymph # [place] # Seg Neutrophils % Seg Neuts % (Manual) Lymphocytes % (Manual) Monocytes % (Manual) Seg Neutrophils # Seg Neutrophils # Man Lymphocytes # (Manual) Monocytes # (Manual) Heparin Anti-Xa Level POC ABG pH POC ABG pCO2 POC ABG pO2 Sodium Potassium Chloride Carbon Dioxide BUN Creatinine Glucose POC Glucose 185 H 138 H 218 H ALT Alkaline Phosphatase Total Creatine Kinase CK-MB (CK-2) CK-MB (CK-2) Rel Index Troponin T C-Reactive Protein Albumin 03/25/17 03/25/17 03/25/17 04:38 04:38 05:24 WBC RBC 3.27 L Hgb 9.3 L Hct 29.8 L RDW 18.4 H Lymph % (Auto) [place] % (Auto) Lymph # [place] # Seg Neutrophils % Seg Neuts % (Manual) 78.0 H Lymphocytes % (Manual) 10.0 L Monocytes % (Manual) 9.0 H Seg Neutrophils # Seg Neutrophils # Man Lymphocytes # (Manual) 0.8 L Monocytes # (Manual) Heparin Anti-Xa Level POC ABG pH POC ABG pCO2 POC ABG pO2 Sodium 136 L Potassium Chloride 92.5 L Carbon Dioxide 17 L BUN 124 H Creatinine 9.7 H Glucose 217 H POC Glucose 211 H ALT Alkaline Phosphatase Total Creatine Kinase CK-MB (CK-2) CK-MB (CK-2) Rel Index Troponin T C-Reactive Protein Albumin 03/25/17 03/25/17 03/25/17 11:53 17:15 20:12 WBC RBC Hgb Hct RDW Lymph % (Auto) [place] % (Auto) Lymph # [place] # Seg Neutrophils % Seg Neuts % (Manual) Lymphocytes % (Manual) Monocytes % (Manual) Seg Neutrophils # Seg Neutrophils # Man Lymphocytes # (Manual) Monocytes # (Manual) Heparin Anti-Xa Level POC ABG pH 7.469 H POC ABG pCO2 POC ABG pO2 69 L Sodium Potassium Chloride Carbon Dioxide BUN Creatinine Glucose POC Glucose 165 H 173 H ALT Alkaline Phosphatase Total Creatine Kinase CK-MB (CK-2) CK-MB (CK-2) Rel Index Troponin T C-Reactive Protein Albumin 03/25/17 03/26/17 03/26/17 23:32 05:59 06:03 WBC RBC Hgb Hct RDW Lymph % (Auto) [place] % (Auto) Lymph # [place] # Seg Neutrophils % Seg Neuts % (Manual) Lymphocytes % (Manual) Monocytes % (Manual) Seg Neutrophils # Seg Neutrophils # Man Lymphocytes # (Manual) Monocytes # (Manual) Heparin Anti-Xa Level POC ABG pH POC ABG pCO2 POC ABG pO2 Sodium 136 L Potassium Chloride 91.6 L Carbon Dioxide 20 L BUN 97 H Creatinine 8.0 H Glucose 239 H POC Glucose 231 H 214 H ALT Alkaline Phosphatase Total Creatine Kinase CK-MB (CK-2) CK-MB (CK-2) Rel Index Troponin T C-Reactive Protein Albumin 03/26/17 03/26/17 03/26/17 12:55 18:14 23:27 WBC RBC Hgb Hct RDW Lymph % (Auto) [place] % (Auto) Lymph # [place] # Seg Neutrophils % Seg Neuts % (Manual) Lymphocytes % (Manual) Monocytes % (Manual) Seg Neutrophils # Seg Neutrophils # Man Lymphocytes # (Manual) Monocytes # (Manual) Heparin Anti-Xa Level POC ABG pH POC ABG pCO2 POC ABG pO2 Sodium Potassium Chloride Carbon Dioxide BUN Creatinine Glucose POC Glucose 220 H 236 H 221 H ALT Alkaline Phosphatase Total Creatine Kinase CK-MB (CK-2) CK-MB (CK-2) Rel Index Troponin T C-Reactive Protein Albumin 03/27/17 03/27/17 03/27/17 00:58 04:00 04:00 WBC 12.9 H RBC 3.33 L Hgb 9.2 L Hct 29.0 L RDW 18.0 H Lymph % (Auto) [place] % (Auto) Lymph # [place] # Seg Neutrophils % Seg Neuts % (Manual) 78.0 H Lymphocytes % (Manual) 13.0 L Monocytes % (Manual) Seg Neutrophils # Seg Neutrophils # Man 10.1 H Lymphocytes # (Manual) Monocytes # (Manual) Heparin Anti-Xa Level POC ABG pH POC ABG pCO2 POC ABG pO2 Sodium Potassium Chloride 91.8 L Carbon Dioxide BUN 108 H Creatinine 9.0 H Glucose 237 H POC Glucose ALT Alkaline Phosphatase Total Creatine Kinase CK-MB (CK-2) CK-MB (CK-2) Rel Index Troponin T C-Reactive Protein 7.90 H Albumin 03/27/17 03/27/17 03/27/17 05:24 11:17 17:40 WBC RBC Hgb Hct RDW Lymph % (Auto) [place] % (Auto) Lymph # [place] # Seg Neutrophils % Seg Neuts % (Manual) Lymphocytes % (Manual) Monocytes % (Manual) Seg Neutrophils # Seg Neutrophils # Man Lymphocytes # (Manual) Monocytes # (Manual) Heparin Anti-Xa Level POC ABG pH POC ABG pCO2 POC ABG pO2 Sodium Potassium Chloride Carbon Dioxide BUN Creatinine Glucose POC Glucose 231 H 172 H 223 H ALT Alkaline Phosphatase Total Creatine Kinase CK-MB (CK-2) CK-MB (CK-2) Rel Index Troponin T C-Reactive Protein Albumin 03/27/17 03/28/17 03/28/17 23:49 05:40 11:51 WBC RBC Hgb Hct RDW Lymph % (Auto) [place] % (Auto) Lymph # [place] # Seg Neutrophils % Seg Neuts % (Manual) Lymphocytes % (Manual) Monocytes % (Manual) Seg Neutrophils # Seg Neutrophils # Man Lymphocytes # (Manual) Monocytes # (Manual) Heparin Anti-Xa Level POC ABG pH POC ABG pCO2 POC ABG pO2 Sodium Potassium Chloride Carbon Dioxide BUN Creatinine Glucose POC Glucose 184 H 212 H 187 H ALT Alkaline Phosphatase Total Creatine Kinase CK-MB (CK-2) CK-MB (CK-2) Rel Index Troponin T C-Reactive Protein Albumin 03/28/17 03/29/17 03/29/17 17:11 00:25 05:28 WBC RBC Hgb Hct RDW Lymph % (Auto) [place] % (Auto) Lymph # [place] # Seg Neutrophils % Seg Neuts % (Manual) Lymphocytes % (Manual) Monocytes % (Manual) Seg Neutrophils # Seg Neutrophils # Man Lymphocytes # (Manual) Monocytes # (Manual) Heparin Anti-Xa Level POC ABG pH POC ABG pCO2 POC ABG pO2 Sodium Potassium Chloride Carbon Dioxide BUN Creatinine Glucose POC Glucose 177 H 147 H 143 H ALT Alkaline Phosphatase Total Creatine Kinase CK-MB (CK-2) CK-MB (CK-2) Rel Index Troponin T C-Reactive Protein Albumin 03/29/17 03/30/17 03/30/17 17:46 06:06 10:42 WBC RBC Hgb Hct RDW Lymph % (Auto) [place] % (Auto) Lymph # [place] # Seg Neutrophils % Seg Neuts % (Manual) Lymphocytes % (Manual) Monocytes % (Manual) Seg Neutrophils # Seg Neutrophils # Man Lymphocytes # (Manual) Monocytes # (Manual) Heparin Anti-Xa Level POC ABG pH POC ABG pCO2 POC ABG pO2 Sodium Potassium Chloride Carbon Dioxide BUN Creatinine Glucose POC Glucose 184 H 294 H 299 H ALT Alkaline Phosphatase Total Creatine Kinase CK-MB (CK-2) CK-MB (CK-2) Rel Index Troponin T C-Reactive Protein Albumin Allied health notes reviewed: RT
[2017-03-30 16:02] LABS: ISTAT Base Excess 4; ISTAT HCO3 27.4; ISTAT PCO2 37.9 (35-45); ISTAT PH 7.466 (7.35-7.45); ISTAT PO2 100 (80-105); ISTAT SO2 98; ISTAT TCO2 28
[2017-03-30] MEDS: HALDOL IV PRN (21:41)
[2017-03-31] MEDS: DUONEB *Not for PRN Use IH SCH ×4 (02:28→20:29)
[2017-03-31] MEDS: LOPRESSOR PO SCH ×5 (05:36→22:52)
[2017-03-31] MEDS: HEPARIN SUB-Q SCH ×3 (05:37→22:48)
--- NOTE | 2017-03-31 10:01 | Progress Note ---
Assessment and Plan s/p v fib arrest (cardiac arrest) CAD patent lad stent, possible distal lad spasm, pt is allergic to asa HTN Post op afib CHOL ESRD on HD AMS Pulm HTN respiratory failure s/p extubation rec: cont current cardiac meds, given mental status, will have ep evaluations possible life vest, discuss with pt daughter about cardiac status Subjective Date of service: 03/31/17 Principal diagnosis: Acute Hypoxemic Resp Failure; STEMI Interval history: pt daughter at bedside, pt awake and no complaints Objective Vital Signs Temp Pulse Pulse Pulse Pulse Pulse Pulse 03/31/17 09:20 72 03/31/17 09:05 68 03/31/17 07:00 97.6 F 70 70 70 70 03/31/17 05:36 83 03/31/17 05:04 97.6 F 83 83 83 83 03/31/17 02:31 87 03/31/17 02:20 88 03/31/17 00:50 68 03/31/17 00:08 98.9 F 71 71 71 71 03/30/17 22:00 81 03/30/17 21:39 84 03/30/17 20:37 84 03/30/17 20:35 03/30/17 20:25 80 03/30/17 19:50 99.4 F 82 82 82 82 03/30/17 18:31 81 03/30/17 18:15 99.6 F 81 81 81 81 03/30/17 13:43 77 03/30/17 13:23 76 03/30/17 12:41 78 03/30/17 10:00 70 Pulse Resp Resp BP BP Pulse Ox 03/31/17 09:20 20 03/31/17 09:05 20 98 03/31/17 07:00 70 18 103/52 94 03/31/17 05:36 121/64 03/31/17 05:04 83 18 121/64 95 03/31/17 02:31 29 H 03/31/17 02:20 27 H 03/31/17 00:50 25 H 97 03/31/17 00:08 71 20 117/54 99 03/30/17 22:00 03/30/17 21:39 128/61 03/30/17 20:37 20 03/30/17 20:35 97 03/30/17 20:25 22 03/30/17 19:50 82 18 128/61 100 03/30/17 18:31 118/57 03/30/17 18:15 81 18 118/57 98 03/30/17 13:43 18 03/30/17 13:23 18 03/30/17 12:41 110/59 03/30/17 10:00 - Physical Examination General: Appears Well, No Apparent Distress HEENT: Positive: Normocephaly, Mucus Membranes Moist Neck: Positive: neck supple, trachea midline Cardiac: Positive: Reg Rate and Rhythm Lungs: Positive: clear to auscultation Neuro: Positive: Other (awake and answers questions) Abdomen: Positive: Soft, Active Bowel Sounds Skin: Negative: Clear, Rash Musculoskeletal: No Fluid Collection, No Pain, Normal Range of Motion Extremities: Present: upper extr. pulses, lower extr. pulses. Absent: edema - Imaging and Cardiology EKG: report reviewed, image reviewed Echo: report reviewed (echo reviewed - EF 60 - 65%, mild MR< mild TR, moderate , mild LVH, mild to moderate pulmonary HTN, RVSP 47mmHg. ) Cardiac cath: report reviewed (patent lad stents and distal lad spasm resolved) - Telemetry EKG Rhythm: Sinus Rhythm - EKG Sinus rhythms and dysrhythmias: sinus rhythm Myocardial infarction: inferior NH (acute or rec, anterior NH (acute or rec - Allied health notes Allied health notes reviewed: RT
[2017-03-31] MEDS: PLAVIX PO SCH (11:09)
[2017-03-31] MEDS: PEPCID PO SCH (11:10)
[2017-03-31] MEDS: LEVEMIR SUB-Q SCH (11:17)
--- NOTE | 2017-03-31 13:32 | Magnetic Resonance Report ---
MRA HEAD WITHOUT CONTRAST HISTORY: CVA. [id number] imaging with MIP reformations of the eek of [place] is submitted. The arteries appear widely patent and free of hemodynamically significant stenosis or aneurysm dilatation. Both vertebral arteries are identified appearing patent as well. IMPRESSION: Unremarkable MRA head.
--- NOTE | 2017-03-31 14:44 | Progress Note ---
Assessment and Plan Assessment: * End stage renal disease on HD (TTS outpatient schedule) * STEMI s/p LHC with PCI * s/p cardiac/Vfib arrest * Cardiogenic shock * Anemia secondary to ESRD * Secondary hyperparathyroidism Plan: * Hemodialysis MWF schedule for now; change to TTS schedule when nearing discharge * UF as tolerated * Optimization of cardiac function * Cardiology recommendations reviewed - note plan for EP eval/life vest * Epogen for goal Hb 10-12 * Diet when cleared by speech pathology Subjective Date of service: 03/31/17 Principal diagnosis: Acute Hypoxemic Resp Failure; STEMI Interval history: Patient request food. Currently NPO awaiting speech eval. Objective - Vital Signs Vital signs: Vital Signs - 12hr 03/31/17 03/31/17 03/31/17 05:04 05:36 07:00 Temperature 97.6 F 97.6 F Pulse Rate 83 Pulse Rate [ Anterior Bilateral Throughout] Pulse Rate [ 83 70 From Monitor] Pulse Rate [ 83 70 Left Dorsalis Pedis] Pulse Rate [ 83 70 Left Radial] Pulse Rate [ 83 70 Right Dorsalis Pedis] Pulse Rate [ 83 70 Right Radial] Respiratory 18 18 Rate Respiratory Rate [Anterior Bilateral Throughout] Blood Pressure 121/64 Blood Pressure 121/64 103/52 [Left Arm] O2 Sat by Pulse 95 94 Oximetry 03/31/17 03/31/17 03/31/17 09:05 09:20 10:00 Temperature Pulse Rate Pulse Rate [ 68 72 Anterior Bilateral Throughout] Pulse Rate [ From Monitor] Pulse Rate [ Left Dorsalis Pedis] Pulse Rate [ Left Radial] Pulse Rate [ Right Dorsalis Pedis] Pulse Rate [ Right Radial] Respiratory Rate Respiratory 20 20 Rate [Anterior Bilateral Throughout] Blood Pressure 103/52 Blood Pressure [Left Arm] O2 Sat by Pulse 98 Oximetry 03/31/17 03/31/17 14:03 14:23 Temperature Pulse Rate Pulse Rate [ 75 78 Anterior Bilateral Throughout] Pulse Rate [ From Monitor] Pulse Rate [ Left Dorsalis Pedis] Pulse Rate [ Left Radial] Pulse Rate [ Right Dorsalis Pedis] Pulse Rate [ Right Radial] Respiratory Rate Respiratory 20 20 Rate [Anterior Bilateral Throughout] Blood Pressure Blood Pressure [Left Arm] O2 Sat by Pulse Oximetry - General Appearance General appearance: well-developed, well-nourished EENT: ATNC, other (NGT in place) Respiratory: Present: Clear to Ascultation Cardiology: regular, S1S2 Gastrointestinal: normal Integumentary: no rash Musculoskeletal: other (no edema) Psychiatric: cooperative - Lab 03/27/17 04:00 03/27/17 04:00 Most recent lab results Calcium 9.7 mg/dL (8.4-10.2) 03/27/17 04:00
--- NOTE | 2017-03-31 15:25 | Progress Note ---
Assessment and Plan - Patient Problems (1) Acute hypoxemic respiratory failure Current Visit: Yes Status: Resolved Plan to address problem: - we will continue aspiration precautions - we will continue bronchodilators and pulmonary toilet - continue to wean oxygen for sats > 94% - continue to use BIPAP scheduled qhs and prn daytime - continue HD/UF for toxin and volume clearance - prn ABG's to evaluate for hypercapnia - CXR reviewed and no acute process (2) ESRD on dialysis Current Visit: Yes Status: Acute Plan to address problem: - continue HD/UF per nephrology prescription for toxin and volume/pulmonary edema control - oliguric - follow electrolytes and correct as necessary (3) Obesity (BMI 30-39.9) Current Visit: Yes Status: Chronic Plan to address problem: - weight loss counselled - outpatient sleep clinic evaluation (4) Sepsis syndrome Current Visit: Yes Status: Acute Plan to address problem: - weaned off dopamine - CRP significantly improved - complete empiric AB's - completed cefipime course also - per ID recs otherwise (5) STEMI (ST elevation myocardial infarction) Current Visit: Yes Status: Acute Qualifiers: Involved coronary artery: unspecified coronary artery Qualified Code(s): I21.3 - ST elevation (STEMI) myocardial infarction of unspecified site Plan to address problem: - on SQ heparin now for VTE prophylaxis - clinically improved - on plavix - cardiology on case and managing (will defer otherwise) (6) Type 2 diabetes mellitus Current Visit: No Status: Chronic Qualifiers: Diabetes mellitus complication status: D Diabetes mellitus complication detail: D Diabetic retinopathy severity: D Proliferative retinopathy type: P Diabetes mellitus macular edema: D Diabetes mellitus penitentiary insulin use : D Laterality: L Chronic kidney disease stage: C Plan to address problem: - continue SSI for glycemic control (7) Acute encephalopathy Current Visit: Yes Status: Acute Plan to address problem: - likely toxic-metabolic component - MRI reports pontine infarct - improving clinically - continue anti-lipid therapy and secondary prevention (8) Discharge planning issues Current Visit: Yes Status: Acute Plan to address problem: - doing better overall ....will re-evaluate in am & prn Subjective Date of service: 03/31/17 Principal diagnosis: Acute Hypoxemic Resp Failure; STEMI Interval history: Seen and examined at bedside; 24 hour events reviewed; nursing and respiratory care staff consulted; no adverse overnight events reported to me; remains very lethargic however no overt respiratory decompensation; tolerating qhs BIPAP; no N/V/F/C; no recurrent chest pains and no palpitations Objective Vital Signs - 12hr 03/31/17 03/31/17 03/31/17 05:04 05:36 07:00 Temperature 97.6 F 97.6 F Pulse Rate 83 Pulse Rate [ Anterior Bilateral Throughout] Pulse Rate [ 83 70 From Monitor] Pulse Rate [ 83 70 Left Dorsalis Pedis] Pulse Rate [ 83 70 Left Radial] Pulse Rate [ 83 70 Right Dorsalis Pedis] Pulse Rate [ 83 70 Right Radial] Respiratory 18 18 Rate Respiratory Rate [Anterior Bilateral Throughout] Blood Pressure 121/64 Blood Pressure 121/64 103/52 [Left Arm] O2 Sat by Pulse 95 94 Oximetry 03/31/17 03/31/17 03/31/17 09:05 09:20 10:00 Temperature Pulse Rate Pulse Rate [ 68 72 Anterior Bilateral Throughout] Pulse Rate [ From Monitor] Pulse Rate [ Left Dorsalis Pedis] Pulse Rate [ Left Radial] Pulse Rate [ Right Dorsalis Pedis] Pulse Rate [ Right Radial] Respiratory Rate Respiratory 20 20 Rate [Anterior Bilateral Throughout] Blood Pressure 103/52 Blood Pressure [Left Arm] O2 Sat by Pulse 98 Oximetry 03/31/17 03/31/17 14:03 14:23 Temperature Pulse Rate Pulse Rate [ 75 78 Anterior Bilateral Throughout] Pulse Rate [ From Monitor] Pulse Rate [ Left Dorsalis Pedis] Pulse Rate [ Left Radial] Pulse Rate [ Right Dorsalis Pedis] Pulse Rate [ Right Radial] Respiratory Rate Respiratory 20 20 Rate [Anterior Bilateral Throughout] Blood Pressure Blood Pressure [Left Arm] O2 Sat by Pulse Oximetry Constitutional: no acute distress, other (somnolent) Eyes: non-icteric ENT: oropharynx moist Neck: supple, no lymphadenopathy, no JVD Effort: mildly labored Ascultation: Bilateral: diminished breath sounds, rales (scant in bases) Cardiovascular: regular rate and rhythm Gastrointestinal: normoactive bowel sounds, soft, non-tender, non-distended Integumentary: normal, other (Femoral CVC) Extremities: no cyanosis, no edema, pulses normal, no ischemia or petechiae Neurologic: normal mental status, non-focal exam (Moves all extremities, tracks my voice, attempts to vocalize in response to questions), pupils equal and round , motor strength normal and, other (very weak) Psychiatric: mood appropriate, affect normal, depressed CBC and BMP: 04/05/17 12:23 04/05/17 12:23 ABG, PT/INR, D-dimer: ABG POC ABG pH 7.466 (7.35-7.45) H 03/30/17 13:21 POC ABG pCO2 37.9 (35-45) 03/30/17 13:21 POC ABG pO2 100 (80-105) 03/30/17 13:21 POC ABG HCO3 27.4 03/30/17 13:21 POC ABG Total CO2 28 03/30/17 13:21 POC ABG O2 Sat 98 03/30/17 13:21 PT/INR, D-dimer PT 13.4 Sec. (12.2-14.9) 03/16/17 11:07 INR 1.03 (0.87-1.13) 03/16/17 11:07 Abnormal lab findings: Abnormal Labs 03/16/17 03/16/17 03/17/17 16:36 18:00 03:42 WBC 20.6 H RBC Hgb Hct RDW 17.3 H Lymph % (Auto) [place] % (Auto) Lymph # [place] # Seg Neutrophils % Seg Neuts % (Manual) 84.0 H Lymphocytes % (Manual) 3.0 L Monocytes % (Manual) 11.0 H Seg Neutrophils # Seg Neutrophils # Man 17.3 H Lymphocytes # (Manual) 0.6 L Monocytes # (Manual) 2.3 H Heparin Anti-Xa Level POC ABG pH 7.336 L POC ABG pCO2 47.9 H POC ABG pO2 189 H Sodium Potassium Chloride Carbon Dioxide BUN Creatinine Glucose POC Glucose ALT Alkaline Phosphatase Total Creatine Kinase 282 H CK-MB (CK-2) 24.2 H CK-MB (CK-2) Rel Index 8.5 H Troponin T 0.656 H* D C-Reactive Protein Albumin 03/17/17 03/17/17 03/17/17 03:42 04:21 17:15 WBC RBC Hgb Hct RDW Lymph % (Auto) [place] % (Auto) Lymph # [place] # Seg Neutrophils % Seg Neuts % (Manual) Lymphocytes % (Manual) Monocytes % (Manual) Seg Neutrophils # Seg Neutrophils # Man Lymphocytes # (Manual) Monocytes # (Manual) Heparin Anti-Xa Level 0.10 L POC ABG pH POC ABG pCO2 POC ABG pO2 Sodium 131 L Potassium 5.3 H D Chloride 89.5 L Carbon Dioxide 21 L BUN 39 H Creatinine 7.0 H Glucose 151 H POC Glucose ALT Alkaline Phosphatase Total Creatine Kinase CK-MB (CK-2) CK-MB (CK-2) Rel Index Troponin T C-Reactive Protein 33.90 H Albumin 03/17/17 03/18/17 03/18/17 21:12 03:33 03:33 WBC 17.6 H RBC 3.59 L Hgb Hct RDW 16.9 H Lymph % (Auto) 4.2 L [place] % (Auto) 11.8 H Lymph # 0.7 L [place] # 2.1 H Seg Neutrophils % 83.3 H Seg Neuts % (Manual) Lymphocytes % (Manual) Monocytes % (Manual) Seg Neutrophils # 14.7 H Seg Neutrophils # Man Lymphocytes # (Manual) Monocytes # (Manual) Heparin Anti-Xa Level < 0.10 L POC ABG pH POC ABG pCO2 POC ABG pO2 Sodium 127 L Potassium 6.1 H* Chloride 87.2 L Carbon Dioxide BUN 55 H Creatinine 8.7 H Glucose 140 H POC Glucose ALT Alkaline Phosphatase Total Creatine Kinase CK-MB (CK-2) CK-MB (CK-2) Rel Index Troponin T C-Reactive Protein Albumin 03/18/17 03/18/17 03/19/17 04:34 22:15 00:04 WBC RBC Hgb Hct RDW Lymph % (Auto) [place] % (Auto) Lymph # [place] # Seg Neutrophils % Seg Neuts % (Manual) Lymphocytes % (Manual) Monocytes % (Manual) Seg Neutrophils # Seg Neutrophils # Man Lymphocytes # (Manual) Monocytes # (Manual) Heparin Anti-Xa Level POC ABG pH 7.289 L POC ABG pCO2 48.7 H POC ABG pO2 Sodium Potassium 5.6 H Chloride Carbon Dioxide BUN Creatinine Glucose POC Glucose 108 H ALT Alkaline Phosphatase Total Creatine Kinase CK-MB (CK-2) CK-MB (CK-2) Rel Index Troponin T C-Reactive Protein Albumin 03/19/17 03/19/17 03/19/17 05:22 08:00 08:00 WBC 16.3 H RBC 3.15 L Hgb 8.8 L Hct 27.3 L RDW 17.4 H Lymph % (Auto) 3.4 L [place] % (Auto) 10.1 H Lymph # 0.5 L [place] # 1.7 H Seg Neutrophils % 85.4 H Seg Neuts % (Manual) Lymphocytes % (Manual) Monocytes % (Manual) Seg Neutrophils # 13.9 H Seg Neutrophils # Man Lymphocytes # (Manual) Monocytes # (Manual) Heparin Anti-Xa Level POC ABG pH POC ABG pCO2 POC ABG pO2 Sodium 131 L Potassium Chloride 89.3 L Carbon Dioxide BUN 56 H Creatinine 7.8 H Glucose 122 H POC Glucose 146 H ALT 59 H Alkaline Phosphatase 208 H Total Creatine Kinase CK-MB (CK-2) CK-MB (CK-2) Rel Index Troponin T C-Reactive Protein Albumin 2.6 L 03/19/17 03/19/17 03/19/17 08:06 11:50 17:36 WBC RBC Hgb Hct RDW Lymph % (Auto) [place] % (Auto) Lymph # [place] # Seg Neutrophils % Seg Neuts % (Manual) Lymphocytes % (Manual) Monocytes % (Manual) Seg Neutrophils # Seg Neutrophils # Man Lymphocytes # (Manual) Monocytes # (Manual) Heparin Anti-Xa Level POC ABG pH 7.338 L POC ABG pCO2 49.2 H POC ABG pO2 110 H Sodium Potassium Chloride Carbon Dioxide BUN Creatinine Glucose POC Glucose 172 H 152 H ALT Alkaline Phosphatase Total Creatine Kinase CK-MB (CK-2) CK-MB (CK-2) Rel Index Troponin T C-Reactive Protein Albumin 03/20/17 03/20/17 03/20/17 00:14 04:15 05:06 WBC RBC Hgb Hct RDW Lymph % (Auto) [place] % (Auto) Lymph # [place] # Seg Neutrophils % Seg Neuts % (Manual) Lymphocytes % (Manual) Monocytes % (Manual) Seg Neutrophils # Seg Neutrophils # Man Lymphocytes # (Manual) Monocytes # (Manual) Heparin Anti-Xa Level POC ABG pH 7.288 L POC ABG pCO2 51.4 H POC ABG pO2 Sodium Potassium Chloride Carbon Dioxide BUN Creatinine Glucose POC Glucose 132 H 166 H ALT Alkaline Phosphatase Total Creatine Kinase CK-MB (CK-2) CK-MB (CK-2) Rel Index Troponin T C-Reactive Protein Albumin 03/20/17 03/20/17 03/20/17 12:07 15:45 17:41 WBC RBC Hgb Hct RDW Lymph % (Auto) [place] % (Auto) Lymph # [place] # Seg Neutrophils % Seg Neuts % (Manual) Lymphocytes % (Manual) Monocytes % (Manual) Seg Neutrophils # Seg Neutrophils # Man Lymphocytes # (Manual) Monocytes # (Manual) Heparin Anti-Xa Level POC ABG pH POC ABG pCO2 POC ABG pO2 Sodium Potassium Chloride Carbon Dioxide BUN Creatinine Glucose POC Glucose 193 H 172 H 156 H ALT Alkaline Phosphatase Total Creatine Kinase CK-MB (CK-2) CK-MB (CK-2) Rel Index Troponin T C-Reactive Protein Albumin 03/20/17 03/21/17 03/21/17 23:13 04:42 05:41 WBC RBC Hgb Hct RDW Lymph % (Auto) [place] % (Auto) Lymph # [place] # Seg Neutrophils % Seg Neuts % (Manual) Lymphocytes % (Manual) Monocytes % (Manual) Seg Neutrophils # Seg Neutrophils # Man Lymphocytes # (Manual) Monocytes # (Manual) Heparin Anti-Xa Level POC ABG pH 7.321 L POC ABG pCO2 56.8 H POC ABG pO2 73 L Sodium Potassium Chloride Carbon Dioxide BUN Creatinine Glucose POC Glucose 141 H 159 H ALT Alkaline Phosphatase Total Creatine Kinase CK-MB (CK-2) CK-MB (CK-2) Rel Index Troponin T C-Reactive Protein Albumin 03/21/17 03/21/17 03/21/17 07:45 07:45 12:16 WBC 15.1 H RBC 3.32 L Hgb 9.2 L Hct 28.9 L RDW 17.4 H Lymph % (Auto) 4.7 L [place] % (Auto) 16.0 H Lymph # 0.7 L [place] # 2.4 H Seg Neutrophils % 78.6 H Seg Neuts % (Manual) Lymphocytes % (Manual) Monocytes % (Manual) Seg Neutrophils # 11.8 H Seg Neutrophils # Man Lymphocytes # (Manual) Monocytes # (Manual) Heparin Anti-Xa Level POC ABG pH POC ABG pCO2 POC ABG pO2 Sodium Potassium Chloride 95.4 L Carbon Dioxide BUN 55 H Creatinine 6.9 H Glucose 188 H POC Glucose 226 H ALT Alkaline Phosphatase 244 H Total Creatine Kinase CK-MB (CK-2) CK-MB (CK-2) Rel Index Troponin T C-Reactive Protein Albumin 2.8 L 03/21/17 03/21/17 03/22/17 17:17 23:28 04:49 WBC RBC Hgb Hct RDW Lymph % (Auto) [place] % (Auto) Lymph # [place] # Seg Neutrophils % Seg Neuts % (Manual) Lymphocytes % (Manual) Monocytes % (Manual) Seg Neutrophils # Seg Neutrophils # Man Lymphocytes # (Manual) Monocytes # (Manual) Heparin Anti-Xa Level POC ABG pH 7.323 L POC ABG pCO2 49.5 H POC ABG pO2 77 L Sodium Potassium Chloride Carbon Dioxide BUN Creatinine Glucose POC Glucose 192 H 199 H ALT Alkaline Phosphatase Total Creatine Kinase CK-MB (CK-2) CK-MB (CK-2) Rel Index Troponin T C-Reactive Protein Albumin 03/22/17 03/22/17 03/22/17 06:13 07:40 07:40 WBC 16.4 H RBC 3.29 L Hgb 9.1 L Hct 28.4 L RDW 17.3 H Lymph % (Auto) [place] % (Auto) Lymph # [place] # Seg Neutrophils % Seg Neuts % (Manual) 73.0 H Lymphocytes % (Manual) 8.0 L Monocytes % (Manual) 14.0 H Seg Neutrophils # Seg Neutrophils # Man 12.0 H Lymphocytes # (Manual) Monocytes # (Manual) 2.3 H Heparin Anti-Xa Level POC ABG pH POC ABG pCO2 POC ABG pO2 Sodium Potassium Chloride 94.8 L Carbon Dioxide 21 L BUN 84 H Creatinine 9.4 H Glucose 188 H POC Glucose 190 H ALT Alkaline Phosphatase Total Creatine Kinase CK-MB (CK-2) CK-MB (CK-2) Rel Index Troponin T C-Reactive Protein Albumin 03/22/17 03/22/17 03/22/17 11:43 17:38 23:56 WBC RBC Hgb Hct RDW Lymph % (Auto) [place] % (Auto) Lymph # [place] # Seg Neutrophils % Seg Neuts % (Manual) Lymphocytes % (Manual) Monocytes % (Manual) Seg Neutrophils # Seg Neutrophils # Man Lymphocytes # (Manual) Monocytes # (Manual) Heparin Anti-Xa Level POC ABG pH POC ABG pCO2 POC ABG pO2 Sodium Potassium Chloride Carbon Dioxide BUN Creatinine Glucose POC Glucose 149 H 168 H 229 H ALT Alkaline Phosphatase Total Creatine Kinase CK-MB (CK-2) CK-MB (CK-2) Rel Index Troponin T C-Reactive Protein Albumin 03/23/17 03/23/17 03/23/17 05:00 05:00 05:21 WBC 14.0 H RBC 3.09 L Hgb 8.5 L Hct 27.0 L RDW 17.8 H Lymph % (Auto) [place] % (Auto) Lymph # [place] # Seg Neutrophils % Seg Neuts % (Manual) Lymphocytes % (Manual) 11.0 L Monocytes % (Manual) 13.0 H Seg Neutrophils # Seg Neutrophils # Man 9.2 H Lymphocytes # (Manual) Monocytes # (Manual) 1.8 H Heparin Anti-Xa Level POC ABG pH POC ABG pCO2 POC ABG pO2 Sodium Potassium Chloride 94.5 L Carbon Dioxide BUN 76 H Creatinine 7.5 H Glucose 192 H POC Glucose 195 H ALT Alkaline Phosphatase Total Creatine Kinase CK-MB (CK-2) CK-MB (CK-2) Rel Index Troponin T C-Reactive Protein Albumin 03/23/17 03/23/17 03/23/17 12:15 17:47 23:27 WBC RBC Hgb Hct RDW Lymph % (Auto) [place] % (Auto) Lymph # [place] # Seg Neutrophils % Seg Neuts % (Manual) Lymphocytes % (Manual) Monocytes % (Manual) Seg Neutrophils # Seg Neutrophils # Man Lymphocytes # (Manual) Monocytes # (Manual) Heparin Anti-Xa Level POC ABG pH POC ABG pCO2 POC ABG pO2 Sodium Potassium Chloride Carbon Dioxide BUN Creatinine Glucose POC Glucose 162 H 137 H 221 H ALT Alkaline Phosphatase Total Creatine Kinase CK-MB (CK-2) CK-MB (CK-2) Rel Index Troponin T C-Reactive Protein Albumin 03/24/17 03/24/17 03/24/17 05:42 08:49 08:49 WBC RBC 2.99 L Hgb 8.5 L Hct 25.9 L RDW 18.1 H Lymph % (Auto) [place] % (Auto) Lymph # [place] # Seg Neutrophils % Seg Neuts % (Manual) 83.0 H Lymphocytes % (Manual) 6.0 L Monocytes % (Manual) Seg Neutrophils # Seg Neutrophils # Man 8.5 H Lymphocytes # (Manual) 0.6 L Monocytes # (Manual) Heparin Anti-Xa Level POC ABG pH POC ABG pCO2 POC ABG pO2 Sodium Potassium Chloride 95.4 L Carbon Dioxide BUN 108 H Creatinine 9.4 H Glucose 203 H POC Glucose 216 H ALT Alkaline Phosphatase Total Creatine Kinase CK-MB (CK-2) CK-MB (CK-2) Rel Index Troponin T C-Reactive Protein Albumin 03/24/17 03/24/17 03/24/17 11:21 17:32 23:37 WBC RBC Hgb Hct RDW Lymph % (Auto) [place] % (Auto) Lymph # [place] # Seg Neutrophils % Seg Neuts % (Manual) Lymphocytes % (Manual) Monocytes % (Manual) Seg Neutrophils # Seg Neutrophils # Man Lymphocytes # (Manual) Monocytes # (Manual) Heparin Anti-Xa Level POC ABG pH POC ABG pCO2 POC ABG pO2 Sodium Potassium Chloride Carbon Dioxide BUN Creatinine Glucose POC Glucose 185 H 138 H 218 H ALT Alkaline Phosphatase Total Creatine Kinase CK-MB (CK-2) CK-MB (CK-2) Rel Index Troponin T C-Reactive Protein Albumin 03/25/17 03/25/17 03/25/17 04:38 04:38 05:24 WBC RBC 3.27 L Hgb 9.3 L Hct 29.8 L RDW 18.4 H Lymph % (Auto) [place] % (Auto) Lymph # [place] # Seg Neutrophils % Seg Neuts % (Manual) 78.0 H Lymphocytes % (Manual) 10.0 L Monocytes % (Manual) 9.0 H Seg Neutrophils # Seg Neutrophils # Man Lymphocytes # (Manual) 0.8 L Monocytes # (Manual) Heparin Anti-Xa Level POC ABG pH POC ABG pCO2 POC ABG pO2 Sodium 136 L Potassium Chloride 92.5 L Carbon Dioxide 17 L BUN 124 H Creatinine 9.7 H Glucose 217 H POC Glucose 211 H ALT Alkaline Phosphatase Total Creatine Kinase CK-MB (CK-2) CK-MB (CK-2) Rel Index Troponin T C-Reactive Protein Albumin 03/25/17 03/25/17 03/25/17 11:53 17:15 20:12 WBC RBC Hgb Hct RDW Lymph % (Auto) [place] % (Auto) Lymph # [place] # Seg Neutrophils % Seg Neuts % (Manual) Lymphocytes % (Manual) Monocytes % (Manual) Seg Neutrophils # Seg Neutrophils # Man Lymphocytes # (Manual) Monocytes # (Manual) Heparin Anti-Xa Level POC ABG pH 7.469 H POC ABG pCO2 POC ABG pO2 69 L Sodium Potassium Chloride Carbon Dioxide BUN Creatinine Glucose POC Glucose 165 H 173 H ALT Alkaline Phosphatase Total Creatine Kinase CK-MB (CK-2) CK-MB (CK-2) Rel Index Troponin T C-Reactive Protein Albumin 03/25/17 03/26/17 03/26/17 23:32 05:59 06:03 WBC RBC Hgb Hct RDW Lymph % (Auto) [place] % (Auto) Lymph # [place] # Seg Neutrophils % Seg Neuts % (Manual) Lymphocytes % (Manual) Monocytes % (Manual) Seg Neutrophils # Seg Neutrophils # Man Lymphocytes # (Manual) Monocytes # (Manual) Heparin Anti-Xa Level POC ABG pH POC ABG pCO2 POC ABG pO2 Sodium 136 L Potassium Chloride 91.6 L Carbon Dioxide 20 L BUN 97 H Creatinine 8.0 H Glucose 239 H POC Glucose 231 H 214 H ALT Alkaline Phosphatase Total Creatine Kinase CK-MB (CK-2) CK-MB (CK-2) Rel Index Troponin T C-Reactive Protein Albumin 03/26/17 03/26/17 03/26/17 12:55 18:14 23:27 WBC RBC Hgb Hct RDW Lymph % (Auto) [place] % (Auto) Lymph # [place] # Seg Neutrophils % Seg Neuts % (Manual) Lymphocytes % (Manual) Monocytes % (Manual) Seg Neutrophils # Seg Neutrophils # Man Lymphocytes # (Manual) Monocytes # (Manual) Heparin Anti-Xa Level POC ABG pH POC ABG pCO2 POC ABG pO2 Sodium Potassium Chloride Carbon Dioxide BUN Creatinine Glucose POC Glucose 220 H 236 H 221 H ALT Alkaline Phosphatase Total Creatine Kinase CK-MB (CK-2) CK-MB (CK-2) Rel Index Troponin T C-Reactive Protein Albumin 03/27/17 03/27/17 03/27/17 00:58 04:00 04:00 WBC 12.9 H RBC 3.33 L Hgb 9.2 L Hct 29.0 L RDW 18.0 H Lymph % (Auto) [place] % (Auto) Lymph # [place] # Seg Neutrophils % Seg Neuts % (Manual) 78.0 H Lymphocytes % (Manual) 13.0 L Monocytes % (Manual) Seg Neutrophils # Seg Neutrophils # Man 10.1 H Lymphocytes # (Manual) Monocytes # (Manual) Heparin Anti-Xa Level POC ABG pH POC ABG pCO2 POC ABG pO2 Sodium Potassium Chloride 91.8 L Carbon Dioxide BUN 108 H Creatinine 9.0 H Glucose 237 H POC Glucose ALT Alkaline Phosphatase Total Creatine Kinase CK-MB (CK-2) CK-MB (CK-2) Rel Index Troponin T C-Reactive Protein 7.90 H Albumin 03/27/17 03/27/17 03/27/17 05:24 11:17 17:40 WBC RBC Hgb Hct RDW Lymph % (Auto) [place] % (Auto) Lymph # [place] # Seg Neutrophils % Seg Neuts % (Manual) Lymphocytes % (Manual) Monocytes % (Manual) Seg Neutrophils # Seg Neutrophils # Man Lymphocytes # (Manual) Monocytes # (Manual) Heparin Anti-Xa Level POC ABG pH POC ABG pCO2 POC ABG pO2 Sodium Potassium Chloride Carbon Dioxide BUN Creatinine Glucose POC Glucose 231 H 172 H 223 H ALT Alkaline Phosphatase Total Creatine Kinase CK-MB (CK-2) CK-MB (CK-2) Rel Index Troponin T C-Reactive Protein Albumin 03/27/17 03/28/17 03/28/17 23:49 05:40 11:51 WBC RBC Hgb Hct RDW Lymph % (Auto) [place] % (Auto) Lymph # [place] # Seg Neutrophils % Seg Neuts % (Manual) Lymphocytes % (Manual) Monocytes % (Manual) Seg Neutrophils # Seg Neutrophils # Man Lymphocytes # (Manual) Monocytes # (Manual) Heparin Anti-Xa Level POC ABG pH POC ABG pCO2 POC ABG pO2 Sodium Potassium Chloride Carbon Dioxide BUN Creatinine Glucose POC Glucose 184 H 212 H 187 H ALT Alkaline Phosphatase Total Creatine Kinase CK-MB (CK-2) CK-MB (CK-2) Rel Index Troponin T C-Reactive Protein Albumin 03/28/17 03/29/17 03/29/17 17:11 00:25 05:28 WBC RBC Hgb Hct RDW Lymph % (Auto) [place] % (Auto) Lymph # [place] # Seg Neutrophils % Seg Neuts % (Manual) Lymphocytes % (Manual) Monocytes % (Manual) Seg Neutrophils # Seg Neutrophils # Man Lymphocytes # (Manual) Monocytes # (Manual) Heparin Anti-Xa Level POC ABG pH POC ABG pCO2 POC ABG pO2 Sodium Potassium Chloride Carbon Dioxide BUN Creatinine Glucose POC Glucose 177 H 147 H 143 H ALT Alkaline Phosphatase Total Creatine Kinase CK-MB (CK-2) CK-MB (CK-2) Rel Index Troponin T C-Reactive Protein Albumin 03/29/17 03/30/17 03/30/17 17:46 06:06 10:42 WBC RBC Hgb Hct RDW Lymph % (Auto) [place] % (Auto) Lymph # [place] # Seg Neutrophils % Seg Neuts % (Manual) Lymphocytes % (Manual) Monocytes % (Manual) Seg Neutrophils # Seg Neutrophils # Man Lymphocytes # (Manual) Monocytes # (Manual) Heparin Anti-Xa Level POC ABG pH POC ABG pCO2 POC ABG pO2 Sodium Potassium Chloride Carbon Dioxide BUN Creatinine Glucose POC Glucose 184 H 294 H 299 H ALT Alkaline Phosphatase Total Creatine Kinase CK-MB (CK-2) CK-MB (CK-2) Rel Index Troponin T C-Reactive Protein Albumin 03/30/17 03/30/17 03/30/17 13:21 16:38 19:48 WBC RBC Hgb Hct RDW Lymph % (Auto) [place] % (Auto) Lymph # [place] # Seg Neutrophils % Seg Neuts % (Manual) Lymphocytes % (Manual) Monocytes % (Manual) Seg Neutrophils # Seg Neutrophils # Man Lymphocytes # (Manual) Monocytes # (Manual) Heparin Anti-Xa Level POC ABG pH 7.466 H POC ABG pCO2 POC ABG pO2 Sodium Potassium Chloride Carbon Dioxide BUN Creatinine Glucose POC Glucose 230 H 277 H ALT Alkaline Phosphatase Total Creatine Kinase CK-MB (CK-2) CK-MB (CK-2) Rel Index Troponin T C-Reactive Protein Albumin 03/30/17 03/31/17 23:28 05:49 WBC RBC Hgb Hct RDW Lymph % (Auto) [place] % (Auto) Lymph # [place] # Seg Neutrophils % Seg Neuts % (Manual) Lymphocytes % (Manual) Monocytes % (Manual) Seg Neutrophils # Seg Neutrophils # Man Lymphocytes # (Manual) Monocytes # (Manual) Heparin Anti-Xa Level POC ABG pH POC ABG pCO2 POC ABG pO2 Sodium Potassium Chloride Carbon Dioxide BUN Creatinine Glucose POC Glucose 203 H 261 H ALT Alkaline Phosphatase Total Creatine Kinase CK-MB (CK-2) CK-MB (CK-2) Rel Index Troponin T C-Reactive Protein Albumin Allied health notes reviewed: RT
--- NOTE | 2017-03-31 15:57 | Progress Note ---
Assessment and Plan Assessment and plan: 66-year-old female presents to the emergency department complaining of chest pain after dialysis. While in triage, the patient went unresponsive, and without a pulse, No palpable pulses were identified. Patient was placed on a monitoring engineer and ventricular fibrillation was noted. Patient was defibrillated a single time with 200 J. She received CPR protocol, was intubated and had ROSC, and she was then taken to the ICU. Postarrest ECG was consistent with anterior STEMI. Code STEMI was activated, she was taken to labor arbitrator hearing office and received angiogram ; stent x 2 in LAD noted to be patent, but had distal LAD spasm Cardiovascular cardiac arrest; Vfib, STEMI, ACS, Distal LAD spasm, cardiogenic shock Cardiology input appreciated, status post cath with patent stents she was rx with amio drip, received heparin ggt x 24 hours, received Dopamine drip for Cardiogenic shock and hypotension,now improved; currently on Lopressor for rate control and now hypertensive -Hypertension. continue antihypertensive medications -Hyperlipidemia- Continue statin therapy Pulmonary Acute hypoxic respiratory failure, mech vent >96 hours Status post extubation 03/24/17, continue oxygen supplementation and noninvasive positive pressure ventilation as needed she is still very tachypneic today, continue pulmonary toilet Speech therapy evaluation, PT evaluation GI Nausea/Vomiting- Start on zofran, now resolved Dysphagia; aspiration with all consistencies; ST input appreicated, continue speech therapy Toxic metabolic encephalopathy EEG was reviewed, seizure is unlikely. encephalopathy most likely due to anoxic brain injury, acute illness, cardiogenic shock, cardiac arrest and IV sedation now improved, Neurology input appreciated, MRI cw anoxic injury CVA Left facial droop/LUE weakness * MR brain shows acute CVA , MRA head is unremarkable * Carotid duplex shows no significant stenosis She likely suffered an anoxic injury during the period of cardiac arrest, MR image reviewed, patient is already on Plavix and statin for secondary stroke prevention, however it appears that the cause of her anoxic injury is cardiac arrest. , She is on appropriate medications, does not require any further workup ID Sepsis syndrome; ID consult appreciated, Continue current empiric therapy. Follow clinically for localizing issues., trachial aspirate cx, NGTD WBC count is slowly downtrending, continue abx till 03/29/17 RENAL/FEN End stage renal disease on hemodialysis. Nephrology following. Continue hemodialysis Hyperkalemia-corrected with dialysis Complete immobility due to frailty PT consult, patient will need SNIF placement Severe malnutrition/Dysphagia forensic accountant consult appreciated, continue tube feeds, continue speech therapy for dysphagia obtain MBS, if still aspirating, will place PEG tube and start planning for NH placement Diabetes mellitus type 2. Accu-Cheks and sliding scale insulin. Morbid obesity- will vocational guidance counselor when clinically improved about lifestyle modification Anemia of CKD. Follow H&H. Transfuse as necessary. History of breast cancer. DVT/GI PROPHY heparin subq, Discussed plan with family and Senior Market Intelligence Consultant , Manager Ccu and ornamental metalwork designer The high probability of a clinically significant, sudden or life threatening deterioration of the cardiac, pulmonary, Neurology system(s) required my full and direct attention, intervention and personal management. The aggregate critical care time was [35] minutes. This time is in addition to time spent performing reported procedures but includes the following: [x] Data Review and interpretation [x] Patient assessment and monitoring of vital signs [x] Documentation [x] Medication orders and management History Interval history: , she continues to have cough, her cough is very weak, continues to aspirate on her own saliva, denies sob, feels very weak and tired; Her daughter states that she has significant memory loss and she does not remember her [facility] Hospitalist Physical - Physical exam Narrative exam: General: appears chronically ill HEENT: MMM, EOMI, weak voice cardiac: S1-S2 heard lungs: clear to auscultation, abdomen: soft, nontender, nondistended bowel sounds positive extremities: no edema clubbing or cyanosis Skin: no rash or lesion Neuro: AAOx3, Left facial droop, LUE focal weakness, moves all extremities, obeys commands, generalized weakness Psych: calm, cooperative - Constitutional Vitals: Temp Pulse Resp BP Pulse Ox 97.6 F 78 20 103/52 98 03/31/17 07:00 03/31/17 14:23 03/31/17 14:23 03/31/17 10:00 03/31/17 09:05 General appearance: Present: no acute distress, obese Results - Labs CBC & Chem 7: 03/27/17 04:00 03/27/17 04:00 Labs: Laboratory Last Values WBC 12.9 K/mm3 (4.5-11.0) H 03/27/17 04:00 RBC 3.33 M/mm3 (3.65-5.03) L 03/27/17 04:00 Hgb 9.2 gm/dl (10.1-14.3) L 03/27/17 04:00 Hct 29.0 % (30.3-42.9) L 03/27/17 04:00 MCV 87 fl (79-97) D 03/27/17 04:00 MCH 28 pg (28-32) 03/27/17 04:00 MCHC 32 % (30-34) 03/27/17 04:00 RDW 18.0 % (13.2-15.2) H 03/27/17 04:00 Plt Count 251 K/mm3 (140-440) 03/27/17 04:00 Lymph % (Auto) Blanchard Grinder Operator 03/25/17 04:38 [place] % (Auto) Blanchard Grinder Operator 03/25/17 04:38 Eos % (Auto) Blanchard Grinder Operator 03/25/17 04:38 Baso % (Auto) Blanchard Grinder Operator 03/25/17 04:38 Lymph # Blanchard Grinder Operator 03/25/17 04:38 [place] # Blanchard Grinder Operator 03/25/17 04:38 Eos # Blanchard Grinder Operator 03/25/17 04:38 Baso # Blanchard Grinder Operator 03/25/17 04:38 Add Manual Diff Complete 03/27/17 04:00 Total Counted 100 03/27/17 04:00 Seg Neutrophils % Blanchard Grinder Operator 03/25/17 04:38 Seg Neuts % (Manual) 78.0 % (40.0-70.0) H 03/27/17 04:00 Band Neutrophils % 1.0 % 03/27/17 04:00 Lymphocytes % (Manual) 13.0 % (13.4-35.0) L 03/27/17 04:00 Reactive Lymphs % (Man) 0 % 03/27/17 04:00 Monocytes % (Manual) 6.0 % (0.0-7.3) 03/27/17 04:00 Eosinophils % (Manual) 2.0 % (0.0-4.3) 03/27/17 04:00 Basophils % (Manual) 0 % (0.0-1.8) 03/27/17 04:00 Metamyelocytes % 0 % 03/27/17 04:00 Myelocytes % 0 % 03/27/17 04:00 Promyelocytes % 0 % 03/27/17 04:00 Blast Cells % 0 % 03/27/17 04:00 Nucleated RBC % Not Reportable 03/27/17 04:00 Seg Neutrophils # Blanchard Grinder Operator 03/25/17 04:38 Seg Neutrophils # Man 10.1 K/mm3 (1.8-7.7) H 03/27/17 04:00 Band Neutrophils # 0.1 K/mm3 03/27/17 04:00 Lymphocytes # (Manual) 1.7 K/mm3 (1.2-5.4) 03/27/17 04:00 Abs React Lymphs (Man) 0.0 K/mm3 03/27/17 04:00 Monocytes # (Manual) 0.8 K/mm3 (0.0-0.8) 03/27/17 04:00 Eosinophils # (Manual) 0.3 K/mm3 (0.0-0.4) 03/27/17 04:00 Basophils # (Manual) 0.0 K/mm3 (0.0-0.1) 03/27/17 04:00 Metamyelocytes # 0.0 K/mm3 03/27/17 04:00 Myelocytes # 0.0 K/mm3 03/27/17 04:00 Promyelocytes # 0.0 K/mm3 03/27/17 04:00 Blast Cells # 0.0 K/mm3 03/27/17 04:00 WBC Morphology Not Reportable 03/27/17 04:00 Hypersegmented Neuts Not Reportable 03/27/17 04:00 Hyposegmented Neuts Not Reportable 03/27/17 04:00 Hypogranular Neuts Not Reportable 03/27/17 04:00 Smudge Cells Not Reportable 03/27/17 04:00 Toxic Granulation Not Reportable 03/27/17 04:00 Toxic Vacuolation Not Reportable 03/27/17 04:00 Dohle Bodies Not Reportable 03/27/17 04:00 Pelger-Huet Anomaly Not Reportable 03/27/17 04:00 Tunde Rods Not Reportable 03/27/17 04:00 Platelet Estimate Consistent w auto 03/27/17 04:00 Clumped Platelets Not Reportable 03/27/17 04:00 Plt Clumps, EDTA Not Reportable 03/27/17 04:00 Large Platelets Not Reportable 03/27/17 04:00 Giant Platelets Not Reportable 03/27/17 04:00 Platelet Satelliting Not Reportable 03/27/17 04:00 Plt Morphology Comment Not Reportable 03/27/17 04:00 RBC Morphology Not Reportable 03/27/17 04:00 Dimorphic RBCs Not Reportable 03/27/17 04:00 Polychromasia Few 03/27/17 04:00 Hypochromasia Not Reportable 03/27/17 04:00 Poikilocytosis Not Reportable 03/27/17 04:00 Anisocytosis Not Reportable 03/27/17 04:00 Microcytosis Not Reportable 03/27/17 04:00 Macrocytosis Not Reportable 03/27/17 04:00 Spherocytes Not Reportable 03/27/17 04:00 Pappenheimer Bodies Not Reportable 03/27/17 04:00 Sickle Cells Not Reportable 03/27/17 04:00 Target Cells Not Reportable 03/27/17 04:00 Tear Drop Cells Not Reportable 03/27/17 04:00 Ovalocytes Not Reportable 03/27/17 04:00 Helmet Cells Not Reportable 03/27/17 04:00 [place] Bodies Not Reportable 03/27/17 04:00 [place]ello Rings Not Reportable 03/27/17 04:00 [place] Cells Not Reportable 03/27/17 04:00 Bite Cells Not Reportable 03/27/17 04:00 Crenated Cell Not Reportable 03/27/17 04:00 Elliptocytes Not Reportable 03/27/17 04:00 Acanthocytes (Spur) Not Reportable 03/27/17 04:00 Rouleaux Not Reportable 03/27/17 04:00 Hemoglobin C Crystals Not Reportable 03/27/17 04:00 Schistocytes Not Reportable 03/27/17 04:00 Malaria parasites Not Reportable 03/27/17 04:00 [place]lon Bodies Not Reportable 03/27/17 04:00 Hem Pathologist Commnt No 03/27/17 04:00 PT 13.4 Sec. (12.2-14.9) 03/16/17 11:07 INR 1.03 (0.87-1.13) 03/16/17 11:07 APTT 24.1 Sec. (24.2-36.6) L 03/16/17 11:07 Activated Clotting Time 125 (74-137) 03/17/17 08:23 Heparin Anti-Xa Level < 0.10 U.I./ml (0.3-0.7) L 03/17/17 21:12 POC ABG pH 7.466 (7.35-7.45) H 03/30/17 13:21 POC ABG pCO2 37.9 (35-45) 03/30/17 13:21 POC ABG pO2 100 (80-105) 03/30/17 13:21 POC ABG HCO3 27.4 03/30/17 13:21 POC ABG Total CO2 28 03/30/17 13:21 POC ABG O2 Sat 98 03/30/17 13:21 POC ABG Base Excess 4 03/30/17 13:21 FiO2 2 % 03/30/17 13:21 Sodium 137 mmol/L (137-145) 03/27/17 04:00 Potassium 4.4 mmol/L (3.6-5.0) 03/27/17 04:00 Chloride 91.8 mmol/L (98-107) L 03/27/17 04:00 Carbon Dioxide 22 mmol/L (22-30) 03/27/17 04:00 Anion Gap 28 mmol/L 03/27/17 04:00 BUN 108 mg/dL (7-17) H 03/27/17 04:00 Creatinine 9.0 mg/dL (0.7-1.2) H 03/27/17 04:00 Estimated GFR 5 ml/min 03/27/17 04:00 BUN/Creatinine Ratio 12.00 % 03/27/17 04:00 Glucose 237 mg/dL (65-100) H 03/27/17 04:00 POC Glucose 261 (70-105) H 03/31/17 05:49 Lactic Acid 1.50 mmol/L (0.7-2.0) 03/27/17 00:58 Calcium 9.7 mg/dL (8.4-10.2) 03/27/17 04:00 Total Bilirubin 0.50 mg/dL (0.1-1.2) 03/21/17 07:45 AST 23 units/L (5-40) 03/21/17 07:45 ALT 40 units/L (7-56) 03/21/17 07:45 Alkaline Phosphatase 244 units/L (35-129) H 03/21/17 07:45 Ammonia 38.0 umol/L (25-60) 03/18/17 19:02 Total Creatine Kinase 282 units/L (30-135) H 03/16/17 16:36 CK-MB (CK-2) 24.2 ng/mL (0.0-4.0) H 03/16/17 16:36 CK-MB (CK-2) Rel Index 8.5 (0-4) H 03/16/17 16:36 Troponin T 0.656 ng/mL (0.00-0.029) H* D 03/16/17 16:36 C-Reactive Protein 7.90 mg/dL (0.00-1.30) H 03/27/17 00:58 Total Protein 7.3 g/dL (6.3-8.2) 03/21/17 07:45 Albumin 2.8 g/dL (3.9-5) L 03/21/17 07:45 Albumin/Globulin Ratio 0.6 % 03/21/17 07:45 Triglycerides 134 mg/dL (2-149) 03/16/17 11:07 Cholesterol 228 mg/dL (50-199) H 03/16/17 11:07 LDL Cholesterol Direct 165 mg/dL (50-130) H 03/16/17 11:07 HDL Cholesterol 37 mg/dL (40-59) L 03/16/17 11:07 Cholesterol/HDL Ratio 6.16 % 03/16/17 11:07 TSH 0.746 mlU/mL (0.270-4.200) 03/18/17 19:02 Random Vancomycin 20.9 ug/mL (0-40.0) 03/22/17 07:40 Hepatitis A IgM Ab Non-reactive (NonReactive) 03/19/17 04:31 Hep Bs Antigen Non-reactive (Negative) 03/19/17 04:31 Hep B Core IgM Ab Non-reactive (NonReactive) 03/19/17 04:31 Hepatitis C Antibody Non-reactive (NonReactive) 03/19/17 04:31 Blood Type A POSITIVE 03/16/17 16:36 Antibody Screen TNR 03/16/17 16:36 CLAIR Antibody Screen Negative 03/16/17 16:36 - Imaging and Cardiology MRI - head: image reviewed (subacute CVA,)
[2017-04-01] MEDS: DUONEB *Not for PRN Use IH SCH ×4 (03:32→19:44)
[2017-04-01] MEDS: LOPRESSOR PO SCH ×3 (05:03→22:00)
[2017-04-01] MEDS: HEPARIN SUB-Q SCH ×3 (06:18→22:00)
--- NOTE | 2017-04-01 08:21 | Progress Note ---
Assessment and Plan Assessment: * End stage renal disease on HD (TTS outpatient schedule) * STEMI s/p LHC with PCI * s/p cardiac/Vfib arrest * Cardiogenic shock * Anemia secondary to ESRD * Secondary hyperparathyroidism Plan: * Hemodialysis MWF schedule for now; change to TTS schedule when nearing discharge * UF as tolerated * Optimization of cardiac function * Cardiology recommendations reviewed - note plan for EP eval/life vest * Epogen for goal Hb 10-12 * Diet when cleared by speech pathology * BMP pending; AM labs ordered Subjective Date of service: 04/01/17 Principal diagnosis: Acute Hypoxemic Resp Failure; STEMI Interval history: Patient without complaint. NGT removed. Eating ice chips. Objective - Vital Signs Vital signs: Vital Signs - 12hr 03/31/17 03/31/17 03/31/17 20:31 20:32 20:50 Temperature 99.6 F Pulse Rate Pulse Rate [ 84 Anterior Bilateral Throughout] Pulse Rate [ 82 From Monitor] Pulse Rate [ 82 Left Dorsalis Pedis] Pulse Rate [ 82 Left Radial] Pulse Rate [ 82 Right Dorsalis Pedis] Pulse Rate [ 82 Right Radial] Respiratory 24 Rate Respiratory 20 Rate [Anterior Bilateral Throughout] Blood Pressure Blood Pressure 120/56 [Left Arm] O2 Sat by Pulse 99 99 Oximetry 03/31/17 03/31/17 03/31/17 22:00 22:52 23:35 Temperature Pulse Rate 85 82 96 H Pulse Rate [ Anterior Bilateral Throughout] Pulse Rate [ From Monitor] Pulse Rate [ Left Dorsalis Pedis] Pulse Rate [ Left Radial] Pulse Rate [ Right Dorsalis Pedis] Pulse Rate [ Right Radial] Respiratory 22 Rate Respiratory Rate [Anterior Bilateral Throughout] Blood Pressure 120/56 Blood Pressure [Left Arm] O2 Sat by Pulse 98 98 Oximetry 04/01/17 04/01/17 00:40 05:03 Temperature 98.5 F Pulse Rate 82 Pulse Rate [ Anterior Bilateral Throughout] Pulse Rate [ 80 From Monitor] Pulse Rate [ 80 Left Dorsalis Pedis] Pulse Rate [ 80 Left Radial] Pulse Rate [ 80 Right Dorsalis Pedis] Pulse Rate [ 80 Right Radial] Respiratory 20 Rate Respiratory Rate [Anterior Bilateral Throughout] Blood Pressure 122/60 Blood Pressure 121/59 [Left Arm] O2 Sat by Pulse 98 Oximetry - General Appearance General appearance: well-developed, well-nourished EENT: ATNC Respiratory: Present: Decreased Breath Sounds Cardiology: regular, S1S2 Gastrointestinal: no tenderness, no distended, obese Integumentary: no rash Musculoskeletal: other (no edema) Psychiatric: cooperative - Lab 03/27/17 04:00 03/27/17 04:00 Most recent lab results Calcium 9.7 mg/dL (8.4-10.2) 03/27/17 04:00
--- NOTE | 2017-04-01 09:20 | Progress Note ---
Assessment and Plan Assessment and plan: 66-year-old female presents to the emergency department complaining of chest pain after dialysis. While in triage, the patient went unresponsive, and without a pulse, No palpable pulses were identified. Patient was placed on a graphics production specialist and ventricular fibrillation was noted. Patient was defibrillated a single time with 200 J. She received CPR protocol, was intubated and had ROSC, and she was then taken to the ICU. Postarrest ECG was consistent with anterior STEMI. Code STEMI was activated, she was taken to cath lab technologist and received angiogram ; stent x 2 in LAD noted to be patent, but had distal LAD spasm Cardiovascular cardiac arrest; Vfib, STEMI, ACS, Distal LAD spasm, cardiogenic shock Cardiology input appreciated, status post cath with patent stents she was rx with amio drip, received heparin ggt x 24 hours, received Dopamine drip for Cardiogenic shock and hypotension,now improved; currently on Lopressor for rate control and now hypertensive -Hypertension. continue antihypertensive medications -Hyperlipidemia- Continue statin therapy Pulmonary Acute hypoxic respiratory failure, mech vent >96 hours Status post extubation 03/24/17, continue oxygen supplementation and noninvasive positive pressure ventilation as needed she is still very tachypneic today, continue pulmonary toilet Speech therapy evaluation, PT evaluation GI Nausea/Vomiting- Start on zofran, now resolved Dysphagia; aspiration with all consistencies; ST input appreicated, continue speech therapy Toxic metabolic encephalopathy EEG was reviewed, seizure is unlikely. encephalopathy most likely due to anoxic brain injury, acute illness, cardiogenic shock, cardiac arrest and IV sedation now improved, Neurology input appreciated, MRI cw anoxic injury CVA Left facial droop/LUE weakness * MR brain shows acute CVA , MRA head is unremarkable * Carotid duplex shows no significant stenosis She likely suffered an anoxic injury during the period of cardiac arrest, MR image reviewed, patient is already on Plavix and statin for secondary stroke prevention, however it appears that the cause of her anoxic injury is cardiac arrest. , She is on appropriate medications, does not require any further workup ID Sepsis syndrome; ID consult appreciated, Continue current empiric therapy. Follow clinically for localizing issues., trachial aspirate cx, NGTD WBC count is slowly downtrending, continue abx till 03/29/17 RENAL/FEN End stage renal disease on hemodialysis. Nephrology following. Continue hemodialysis Hyperkalemia-corrected with dialysis Complete immobility due to frailty PT consult, patient will need SNIF placement Critical illness myopathy Pain medications as needed Severe malnutrition/Dysphagia child care director consult appreciated, continue tube feeds, continue speech therapy for dysphagia MBS was done today, report reviewed, there was no aspiration, patient has been transitioned to mechanical soft diet and thin liquids. Diabetes mellitus type 2. Accu-Cheks and sliding scale insulin. Morbid obesity- will student support counselor when clinically improved about lifestyle modification Anemia of CKD. Follow H&H. Transfuse as necessary. History of breast cancer. DVT/GI PROPHY heparin subq, Discussed plan with the patient and her daughter Plan for SNIF placement, case management was updated on the plan History Interval history: She is improved, she is complaining of muscle pains all over her body, otherwise she was able to swallow today and her voice is stronger. Hospitalist Physical - Physical exam Narrative exam: General: appears well HEENT: MMM, EOMI cardiac: S1-S2 heard lungs: clear to auscultation, abdomen: soft, nontender, nondistended bowel sounds positive extremities: no edema clubbing or cyanosis muscle soreness to palpation all over her body Skin: no rash or lesion Neuro: AAOx3, Left facial droop, LUE focal weakness, moves all extremities, obeys commands, generalized weakness Psych: calm, cooperative - Constitutional Vitals: Temp Pulse Resp BP Pulse Ox 97.7 F 89 18 122/60 97 04/01/17 07:00 04/01/17 08:59 04/01/17 08:59 04/01/17 07:00 04/01/17 08:47 General appearance: Present: no acute distress, obese Results - Labs CBC & Chem 7: 03/27/17 04:00 04/01/17 12:17 Labs: Laboratory Last Values WBC 12.9 K/mm3 (4.5-11.0) H 03/27/17 04:00 RBC 3.33 M/mm3 (3.65-5.03) L 03/27/17 04:00 Hgb 9.2 gm/dl (10.1-14.3) L 03/27/17 04:00 Hct 29.0 % (30.3-42.9) L 03/27/17 04:00 MCV 87 fl (79-97) D 03/27/17 04:00 MCH 28 pg (28-32) 03/27/17 04:00 MCHC 32 % (30-34) 03/27/17 04:00 RDW 18.0 % (13.2-15.2) H 03/27/17 04:00 Plt Count 251 K/mm3 (140-440) 03/27/17 04:00 Lymph % (Auto) [place] Administrator 03/25/17 04:38 [place] % (Auto) Solaris Administrator 03/25/17 04:38 Eos % (Auto) [facility] Administrator 03/25/17 04:38 Baso % (Auto) [facility] Administrator 03/25/17 04:38 Lymph # Solar[facility] Administrator 03/25/17 04:38 [place] # Solaris Administrator 03/25/17 04:38 Eos # Solaris Administrator 03/25/17 04:38 Baso # Solar[facility] Administrator 03/25/17 04:38 Add Manual Diff Complete 03/27/17 04:00 Total Counted 100 03/27/17 04:00 Seg Neutrophils % [facility] Administrator 03/25/17 04:38 Seg Neuts % (Manual) 78.0 % (40.0-70.0) H 03/27/17 04:00 Band Neutrophils % 1.0 % 03/27/17 04:00 Lymphocytes % (Manual) 13.0 % (13.4-35.0) L 03/27/17 04:00 Reactive Lymphs % (Man) 0 % 03/27/17 04:00 Monocytes % (Manual) 6.0 % (0.0-7.3) 03/27/17 04:00 Eosinophils % (Manual) 2.0 % (0.0-4.3) 03/27/17 04:00 Basophils % (Manual) 0 % (0.0-1.8) 03/27/17 04:00 Metamyelocytes % 0 % 03/27/17 04:00 Myelocytes % 0 % 03/27/17 04:00 Promyelocytes % 0 % 03/27/17 04:00 Blast Cells % 0 % 03/27/17 04:00 Nucleated RBC % Not Reportable 03/27/17 04:00 Seg Neutrophils # [place] Administrator 03/25/17 04:38 Seg Neutrophils # Man 10.1 K/mm3 (1.8-7.7) H 03/27/17 04:00 Band Neutrophils # 0.1 K/mm3 03/27/17 04:00 Lymphocytes # (Manual) 1.7 K/mm3 (1.2-5.4) 03/27/17 04:00 Abs React Lymphs (Man) 0.0 K/mm3 03/27/17 04:00 Monocytes # (Manual) 0.8 K/mm3 (0.0-0.8) 03/27/17 04:00 Eosinophils # (Manual) 0.3 K/mm3 (0.0-0.4) 03/27/17 04:00 Basophils # (Manual) 0.0 K/mm3 (0.0-0.1) 03/27/17 04:00 Metamyelocytes # 0.0 K/mm3 03/27/17 04:00 Myelocytes # 0.0 K/mm3 03/27/17 04:00 Promyelocytes # 0.0 K/mm3 03/27/17 04:00 Blast Cells # 0.0 K/mm3 03/27/17 04:00 WBC Morphology Not Reportable 03/27/17 04:00 Hypersegmented Neuts Not Reportable 03/27/17 04:00 Hyposegmented Neuts Not Reportable 03/27/17 04:00 Hypogranular Neuts Not Reportable 03/27/17 04:00 Smudge Cells Not Reportable 03/27/17 04:00 Toxic Granulation Not Reportable 03/27/17 04:00 Toxic Vacuolation Not Reportable 03/27/17 04:00 Dohle Bodies Not Reportable 03/27/17 04:00 Pelger-Huet Anomaly Not Reportable 03/27/17 04:00 Tunde Rods Not Reportable 03/27/17 04:00 Platelet Estimate Consistent w auto 03/27/17 04:00 Clumped Platelets Not Reportable 03/27/17 04:00 Plt Clumps, EDTA Not Reportable 03/27/17 04:00 Large Platelets Not Reportable 03/27/17 04:00 Giant Platelets Not Reportable 03/27/17 04:00 Platelet Satelliting Not Reportable 03/27/17 04:00 Plt Morphology Comment Not Reportable 03/27/17 04:00 RBC Morphology Not Reportable 03/27/17 04:00 Dimorphic RBCs Not Reportable 03/27/17 04:00 Polychromasia Few 03/27/17 04:00 Hypochromasia Not Reportable 03/27/17 04:00 Poikilocytosis Not Reportable 03/27/17 04:00 Anisocytosis Not Reportable 03/27/17 04:00 Microcytosis Not Reportable 03/27/17 04:00 Macrocytosis Not Reportable 03/27/17 04:00 Spherocytes Not Reportable 03/27/17 04:00 Pappenheimer Bodies Not Reportable 03/27/17 04:00 Sickle Cells Not Reportable 03/27/17 04:00 Target Cells Not Reportable 03/27/17 04:00 Tear Drop Cells Not Reportable 03/27/17 04:00 Ovalocytes Not Reportable 03/27/17 04:00 Helmet Cells Not Reportable 03/27/17 04:00 [place] Bodies Not Reportable 03/27/17 04:00 [place] Rings Not Reportable 03/27/17 04:00 [place] Cells Not Reportable 03/27/17 04:00 Bite Cells Not Reportable 03/27/17 04:00 Crenated Cell Not Reportable 03/27/17 04:00 Elliptocytes Not Reportable 03/27/17 04:00 Acanthocytes (Spur) Not Reportable 03/27/17 04:00 Rouleaux Not Reportable 03/27/17 04:00 Hemoglobin C Crystals Not Reportable 03/27/17 04:00 Schistocytes Not Reportable 03/27/17 04:00 Malaria parasites Not Reportable 03/27/17 04:00 [place] Bodies Not Reportable 03/27/17 04:00 Hem Pathologist Commnt No 03/27/17 04:00 PT 13.4 Sec. (12.2-14.9) 03/16/17 11:07 INR 1.03 (0.87-1.13) 03/16/17 11:07 APTT 24.1 Sec. (24.2-36.6) L 03/16/17 11:07 Activated Clotting Time 125 (74-137) 03/17/17 08:23 Heparin Anti-Xa Level < 0.10 U.I./ml (0.3-0.7) L 03/17/17 21:12 POC ABG pH 7.466 (7.35-7.45) H 03/30/17 13:21 POC ABG pCO2 37.9 (35-45) 03/30/17 13:21 POC ABG pO2 100 (80-105) 03/30/17 13:21 POC ABG HCO3 27.4 03/30/17 13:21 POC ABG Total CO2 28 03/30/17 13:21 POC ABG O2 Sat 98 03/30/17 13:21 POC ABG Base Excess 4 03/30/17 13:21 FiO2 2 % 03/30/17 13:21 Sodium 137 mmol/L (137-145) 03/27/17 04:00 Potassium 4.4 mmol/L (3.6-5.0) 03/27/17 04:00 Chloride 91.8 mmol/L (98-107) L 03/27/17 04:00 Carbon Dioxide 22 mmol/L (22-30) 03/27/17 04:00 Anion Gap 28 mmol/L 03/27/17 04:00 BUN 108 mg/dL (7-17) H 03/27/17 04:00 Creatinine 9.0 mg/dL (0.7-1.2) H 03/27/17 04:00 Estimated GFR 5 ml/min 03/27/17 04:00 BUN/Creatinine Ratio 12.00 % 03/27/17 04:00 Glucose 237 mg/dL (65-100) H 03/27/17 04:00 POC Glucose 185 (70-105) H 04/01/17 05:51 Lactic Acid 1.50 mmol/L (0.7-2.0) 03/27/17 00:58 Calcium 9.7 mg/dL (8.4-10.2) 03/27/17 04:00 Total Bilirubin 0.50 mg/dL (0.1-1.2) 03/21/17 07:45 AST 23 units/L (5-40) 03/21/17 07:45 ALT 40 units/L (7-56) 03/21/17 07:45 Alkaline Phosphatase 244 units/L (35-129) H 03/21/17 07:45 Ammonia 38.0 umol/L (25-60) 03/18/17 19:02 Total Creatine Kinase 282 units/L (30-135) H 03/16/17 16:36 CK-MB (CK-2) 24.2 ng/mL (0.0-4.0) H 03/16/17 16:36 CK-MB (CK-2) Rel Index 8.5 (0-4) H 03/16/17 16:36 Troponin T 0.656 ng/mL (0.00-0.029) H* D 03/16/17 16:36 C-Reactive Protein 7.90 mg/dL (0.00-1.30) H 03/27/17 00:58 Total Protein 7.3 g/dL (6.3-8.2) 03/21/17 07:45 Albumin 2.8 g/dL (3.9-5) L 03/21/17 07:45 Albumin/Globulin Ratio 0.6 % 03/21/17 07:45 Triglycerides 134 mg/dL (2-149) 03/16/17 11:07 Cholesterol 228 mg/dL (50-199) H 03/16/17 11:07 LDL Cholesterol Direct 165 mg/dL (50-130) H 03/16/17 11:07 HDL Cholesterol 37 mg/dL (40-59) L 03/16/17 11:07 Cholesterol/HDL Ratio 6.16 % 03/16/17 11:07 TSH 0.746 mlU/mL (0.270-4.200) 03/18/17 19:02 Random Vancomycin 20.9 ug/mL (0-40.0) 03/22/17 07:40 Hepatitis A IgM Ab Non-reactive (NonReactive) 03/19/17 04:31 Hep Bs Antigen Non-reactive (Negative) 03/19/17 04:31 Hep B Core IgM Ab Non-reactive (NonReactive) 03/19/17 04:31 Hepatitis C Antibody Non-reactive (NonReactive) 03/19/17 04:31 Blood Type A POSITIVE 03/16/17 16:36 Antibody Screen TNR 03/16/17 16:36 CLAIR Antibody Screen Negative 03/16/17 16:36
[2017-04-01] MEDS: LEVEMIR SUB-Q SCH (10:00)
[2017-04-01] MEDS: PEPCID PO SCH (10:00)
[2017-04-01] MEDS: PLAVIX PO SCH (10:00)
--- NOTE | 2017-04-01 10:25 | Progress Note ---
Assessment and Plan S/p V fib arrest (cardiac arrest)/STEMI Will discuss possible [facility] placement with EP Coronary artery disease s/p PCI [facility] 03/16: patent LAD stents, possible distal LAD spasm pt. is allergic to ASA, continue Plavix, statin, metoprolol c/o chest soreness this am, likely musculoskeletal, will obtain 12 lead EKG Post op afib-->currently SR Hypertension stable Hyperlipidemia Pulmonary HTN ESRD on HD Respiratory failure s/p extubation The patient has been seen in conjunction with Dr. Mancera who agrees with the assessment and plan of care. Subjective Date of service: 04/01/17 Principal diagnosis: Acute Hypoxemic Resp Failure; STEMI Interval history: The patient is resting in bed. She complains of mild substernal chest discomfort. Sinus rhythm on the monitor. Objective Last Vital Signs Temp 97.7 F 04/01/17 07:00 Pulse 89 04/01/17 08:59 Resp 18 04/01/17 08:59 BP 122/60 04/01/17 07:00 Pulse Ox 97 04/01/17 08:47 - Physical Examination General: Appears Well, No Apparent Distress HEENT: Positive: Normocephaly, Mucus Membranes Moist Neck: Positive: neck supple, trachea midline Cardiac: Positive: Reg Rate and Rhythm, S1/S2 Lungs: Positive: clear to auscultation Neuro: Positive: Grossly Intact Abdomen: Positive: Soft, Active Bowel Sounds Skin: Negative: Clear, Rash Musculoskeletal: No Fluid Collection, No Pain, Normal Range of Motion, other ( reproducible anterior chest wall tenderness) Extremities: Present: upper extr. pulses, lower extr. pulses. Absent: edema - Imaging and Cardiology EKG: report reviewed, image reviewed Echo: report reviewed (echo reviewed - EF 60 - 65%, mild MR< mild TR, moderate , mild LVH, mild to moderate pulmonary HTN, RVSP 47mmHg. ) Cardiac cath: report reviewed (patent lad stents and distal lad spasm resolved) - Telemetry EKG Rhythm: Sinus Rhythm - EKG Sinus rhythms and dysrhythmias: sinus rhythm Myocardial infarction: inferior SC (acute or rec, anterior SC (acute or rec - Allied health notes Allied health notes reviewed: RT
[2017-04-01 13:14] LABS: BUN/Creatinine Ratio 10.18; Calcium 10.1 mg/dL (8.4-10.2); Chloride 88.3 mmol/L (98-107); Potassium 5.4 mmol/L (3.6-5.0)
--- NOTE | 2017-04-01 13:27 | Fluoroscopy Report ---
Modified barium swallow: History: Dysphagia. Findings: No anatomic obstruction to the passage of thin liquids, semisolid and solid food through cervical esophagus. No aspiration. Impression: Additional findings would be provided by speech therapist.
[2017-04-01] MEDS: TYLENOL FEEDTUBE PRN (16:03)
[2017-04-01] MEDS ORDERED: NACL 0.9 (PRIMING MACHINE ONLY DIALYSIS) MC ONE (16:45)
[2017-04-01] MEDS: PROCRIT IV PRN (20:26)
[2017-04-01] MEDS: ULTRAM PO PRN (21:58)
--- NOTE | 2017-04-01 22:55 | Progress Note ---
Assessment and Plan - Patient Problems (1) Acute hypoxemic respiratory failure Current Visit: Yes Status: Resolved Plan to address problem: Patient extubated . Presently on nasal canula 3 litres. O2 saturation 98%. Albuterol/atrovent aerosol treatments q 6 hours. Continue S/C Heparin. Continue Famotidine. (2) Hypotension Current Visit: Yes Status: Acute Qualifiers: Hypotension type: H Trimester: T Plan to address problem: Improved. Blood pressure 130/60. (3) ESRD on dialysis Current Visit: Yes Status: Acute Plan to address problem: Management as per nephrology. (4) Pneumomediastinum Current Visit: Yes Status: Acute Plan to address problem: Repeat chest xrya did not report pneumomediastinum or Pneumothorax. Subjective Date of service: 04/01/17 Principal diagnosis: Acute Hypoxemic Resp Failure; STEMI Objective Vital Signs - 12hr 04/01/17 04/01/17 04/01/17 14:14 14:32 16:15 Temperature 98.0 F 98.0 F Pulse Rate 87 Pulse Rate [ 86 86 Anterior Bilateral Throughout] Pulse Rate [ 85 From Monitor] Pulse Rate [ 85 Left Dorsalis Pedis] Pulse Rate [ 85 Left Radial] Pulse Rate [ 85 Right Dorsalis Pedis] Pulse Rate [ 85 Right Radial] Respiratory 18 20 Rate Respiratory 16 18 Rate [Anterior Bilateral Throughout] Blood Pressure 135/63 Blood Pressure 127/65 [Left Arm] O2 Sat by Pulse 99 Oximetry 04/01/17 04/01/17 04/01/17 16:30 16:45 17:00 Temperature Pulse Rate 86 94 H 92 H Pulse Rate [ Anterior Bilateral Throughout] Pulse Rate [ From Monitor] Pulse Rate [ Left Dorsalis Pedis] Pulse Rate [ Left Radial] Pulse Rate [ Right Dorsalis Pedis] Pulse Rate [ Right Radial] Respiratory Rate Respiratory Rate [Anterior Bilateral Throughout] Blood Pressure 156/68 130/76 130/74 Blood Pressure [Left Arm] O2 Sat by Pulse Oximetry 04/01/17 04/01/17 04/01/17 17:15 17:30 17:45 Temperature Pulse Rate 95 H 94 H 94 H Pulse Rate [ Anterior Bilateral Throughout] Pulse Rate [ From Monitor] Pulse Rate [ Left Dorsalis Pedis] Pulse Rate [ Left Radial] Pulse Rate [ Right Dorsalis Pedis] Pulse Rate [ Right Radial] Respiratory Rate Respiratory Rate [Anterior Bilateral Throughout] Blood Pressure 130/77 133/77 151/66 Blood Pressure [Left Arm] O2 Sat by Pulse Oximetry 04/01/17 04/01/17 04/01/17 17:52 18:00 18:15 Temperature 99.1 F Pulse Rate 96 H 96 H Pulse Rate [ Anterior Bilateral Throughout] Pulse Rate [ 90 From Monitor] Pulse Rate [ 85 Left Dorsalis Pedis] Pulse Rate [ 85 Left Radial] Pulse Rate [ 85 Right Dorsalis Pedis] Pulse Rate [ 85 Right Radial] Respiratory 20 Rate Respiratory Rate [Anterior Bilateral Throughout] Blood Pressure 141/75 120/70 Blood Pressure 127/63 [Left Arm] O2 Sat by Pulse 100 Oximetry 04/01/17 04/01/17 04/01/17 18:30 18:45 19:00 Temperature Pulse Rate 93 H 98 H 99 H Pulse Rate [ Anterior Bilateral Throughout] Pulse Rate [ From Monitor] Pulse Rate [ Left Dorsalis Pedis] Pulse Rate [ Left Radial] Pulse Rate [ Right Dorsalis Pedis] Pulse Rate [ Right Radial] Respiratory Rate Respiratory Rate [Anterior Bilateral Throughout] Blood Pressure 145/78 135/75 169/88 Blood Pressure [Left Arm] O2 Sat by Pulse Oximetry 04/01/17 04/01/17 04/01/17 19:15 19:30 19:45 Temperature Pulse Rate 100 H 100 H 100 H Pulse Rate [ Anterior Bilateral Throughout] Pulse Rate [ From Monitor] Pulse Rate [ Left Dorsalis Pedis] Pulse Rate [ Left Radial] Pulse Rate [ Right Dorsalis Pedis] Pulse Rate [ Right Radial] Respiratory Rate Respiratory Rate [Anterior Bilateral Throughout] Blood Pressure 152/76 149/89 144/84 Blood Pressure [Left Arm] O2 Sat by Pulse Oximetry 04/01/17 04/01/17 04/01/17 20:00 20:15 20:30 Temperature 98.4 F Pulse Rate 100 H 87 98 H Pulse Rate [ Anterior Bilateral Throughout] Pulse Rate [ From Monitor] Pulse Rate [ Left Dorsalis Pedis] Pulse Rate [ Left Radial] Pulse Rate [ Right Dorsalis Pedis] Pulse Rate [ Right Radial] Respiratory 18 Rate Respiratory Rate [Anterior Bilateral Throughout] Blood Pressure 148/82 150/86 151/87 Blood Pressure [Left Arm] O2 Sat by Pulse Oximetry 04/01/17 04/01/17 21:58 22:00 Temperature Pulse Rate 102 H Pulse Rate [ Anterior Bilateral Throughout] Pulse Rate [ From Monitor] Pulse Rate [ Left Dorsalis Pedis] Pulse Rate [ Left Radial] Pulse Rate [ Right Dorsalis Pedis] Pulse Rate [ Right Radial] Respiratory 18 Rate Respiratory Rate [Anterior Bilateral Throughout] Blood Pressure 132/60 Blood Pressure [Left Arm] O2 Sat by Pulse Oximetry Constitutional: no acute distress, other (somnolent) Eyes: non-icteric ENT: oropharynx moist Neck: supple, no lymphadenopathy, no JVD Effort: mildly labored Ascultation: Bilateral: diminished breath sounds, rales (scant in bases) Cardiovascular: regular rate and rhythm Gastrointestinal: normoactive bowel sounds, soft, non-tender, non-distended Integumentary: normal, other (Femoral CVC) Extremities: no cyanosis, no edema, pulses normal, no ischemia or petechiae Neurologic: normal mental status, non-focal exam (Moves all extremities, tracks my voice, attempts to vocalize in response to questions), pupils equal and round , motor strength normal and, other (very weak) Psychiatric: mood appropriate, affect normal, depressed CBC and BMP: 03/27/17 04:00 04/01/17 12:17 ABG, PT/INR, D-dimer: ABG POC ABG pH 7.466 (7.35-7.45) H 03/30/17 13:21 POC ABG pCO2 37.9 (35-45) 03/30/17 13:21 POC ABG pO2 100 (80-105) 03/30/17 13:21 POC ABG HCO3 27.4 03/30/17 13:21 POC ABG Total CO2 28 03/30/17 13:21 POC ABG O2 Sat 98 03/30/17 13:21 PT/INR, D-dimer PT 13.4 Sec. (12.2-14.9) 03/16/17 11:07 INR 1.03 (0.87-1.13) 03/16/17 11:07 Abnormal lab findings: Abnormal Labs 03/16/17 03/16/17 03/17/17 16:36 18:00 03:42 WBC 20.6 H RBC Hgb Hct RDW 17.3 H Lymph % (Auto) [place] % (Auto) Lymph # [place] # Seg Neutrophils % Seg Neuts % (Manual) 84.0 H Lymphocytes % (Manual) 3.0 L Monocytes % (Manual) 11.0 H Seg Neutrophils # Seg Neutrophils # Man 17.3 H Lymphocytes # (Manual) 0.6 L Monocytes # (Manual) 2.3 H Heparin Anti-Xa Level POC ABG pH 7.336 L POC ABG pCO2 47.9 H POC ABG pO2 189 H Sodium Potassium Chloride Carbon Dioxide BUN Creatinine Glucose POC Glucose ALT Alkaline Phosphatase Total Creatine Kinase 282 H CK-MB (CK-2) 24.2 H CK-MB (CK-2) Rel Index 8.5 H Troponin T 0.656 H* D C-Reactive Protein Albumin 03/17/17 03/17/17 03/17/17 03:42 04:21 17:15 WBC RBC Hgb Hct RDW Lymph % (Auto) [place] % (Auto) Lymph # [place] # Seg Neutrophils % Seg Neuts % (Manual) Lymphocytes % (Manual) Monocytes % (Manual) Seg Neutrophils # Seg Neutrophils # Man Lymphocytes # (Manual) Monocytes # (Manual) Heparin Anti-Xa Level 0.10 L POC ABG pH POC ABG pCO2 POC ABG pO2 Sodium 131 L Potassium 5.3 H D Chloride 89.5 L Carbon Dioxide 21 L BUN 39 H Creatinine 7.0 H Glucose 151 H POC Glucose ALT Alkaline Phosphatase Total Creatine Kinase CK-MB (CK-2) CK-MB (CK-2) Rel Index Troponin T C-Reactive Protein 33.90 H Albumin 03/17/17 03/18/17 03/18/17 21:12 03:33 03:33 WBC 17.6 H RBC 3.59 L Hgb Hct RDW 16.9 H Lymph % (Auto) 4.2 L [place] % (Auto) 11.8 H Lymph # 0.7 L [place] # 2.1 H Seg Neutrophils % 83.3 H Seg Neuts % (Manual) Lymphocytes % (Manual) Monocytes % (Manual) Seg Neutrophils # 14.7 H Seg Neutrophils # Man Lymphocytes # (Manual) Monocytes # (Manual) Heparin Anti-Xa Level < 0.10 L POC ABG pH POC ABG pCO2 POC ABG pO2 Sodium 127 L Potassium 6.1 H* Chloride 87.2 L Carbon Dioxide BUN 55 H Creatinine 8.7 H Glucose 140 H POC Glucose ALT Alkaline Phosphatase Total Creatine Kinase CK-MB (CK-2) CK-MB (CK-2) Rel Index Troponin T C-Reactive Protein Albumin 03/18/17 03/18/17 03/19/17 04:34 22:15 00:04 WBC RBC Hgb Hct RDW Lymph % (Auto) [place] % (Auto) Lymph # [place] # Seg Neutrophils % Seg Neuts % (Manual) Lymphocytes % (Manual) Monocytes % (Manual) Seg Neutrophils # Seg Neutrophils # Man Lymphocytes # (Manual) Monocytes # (Manual) Heparin Anti-Xa Level POC ABG pH 7.289 L POC ABG pCO2 48.7 H POC ABG pO2 Sodium Potassium 5.6 H Chloride Carbon Dioxide BUN Creatinine Glucose POC Glucose 108 H ALT Alkaline Phosphatase Total Creatine Kinase CK-MB (CK-2) CK-MB (CK-2) Rel Index Troponin T C-Reactive Protein Albumin 03/19/17 03/19/17 03/19/17 05:22 08:00 08:00 WBC 16.3 H RBC 3.15 L Hgb 8.8 L Hct 27.3 L RDW 17.4 H Lymph % (Auto) 3.4 L [place] % (Auto) 10.1 H Lymph # 0.5 L [place] # 1.7 H Seg Neutrophils % 85.4 H Seg Neuts % (Manual) Lymphocytes % (Manual) Monocytes % (Manual) Seg Neutrophils # 13.9 H Seg Neutrophils # Man Lymphocytes # (Manual) Monocytes # (Manual) Heparin Anti-Xa Level POC ABG pH POC ABG pCO2 POC ABG pO2 Sodium 131 L Potassium Chloride 89.3 L Carbon Dioxide BUN 56 H Creatinine 7.8 H Glucose 122 H POC Glucose 146 H ALT 59 H Alkaline Phosphatase 208 H Total Creatine Kinase CK-MB (CK-2) CK-MB (CK-2) Rel Index Troponin T C-Reactive Protein Albumin 2.6 L 03/19/17 03/19/17 03/19/17 08:06 11:50 17:36 WBC RBC Hgb Hct RDW Lymph % (Auto) [place] % (Auto) Lymph # [place] # Seg Neutrophils % Seg Neuts % (Manual) Lymphocytes % (Manual) Monocytes % (Manual) Seg Neutrophils # Seg Neutrophils # Man Lymphocytes # (Manual) Monocytes # (Manual) Heparin Anti-Xa Level POC ABG pH 7.338 L POC ABG pCO2 49.2 H POC ABG pO2 110 H Sodium Potassium Chloride Carbon Dioxide BUN Creatinine Glucose POC Glucose 172 H 152 H ALT Alkaline Phosphatase Total Creatine Kinase CK-MB (CK-2) CK-MB (CK-2) Rel Index Troponin T C-Reactive Protein Albumin 03/20/17 03/20/17 03/20/17 00:14 04:15 05:06 WBC RBC Hgb Hct RDW Lymph % (Auto) [place] % (Auto) Lymph # [place] # Seg Neutrophils % Seg Neuts % (Manual) Lymphocytes % (Manual) Monocytes % (Manual) Seg Neutrophils # Seg Neutrophils # Man Lymphocytes # (Manual) Monocytes # (Manual) Heparin Anti-Xa Level POC ABG pH 7.288 L POC ABG pCO2 51.4 H POC ABG pO2 Sodium Potassium Chloride Carbon Dioxide BUN Creatinine Glucose POC Glucose 132 H 166 H ALT Alkaline Phosphatase Total Creatine Kinase CK-MB (CK-2) CK-MB (CK-2) Rel Index Troponin T C-Reactive Protein Albumin 03/20/17 03/20/17 03/20/17 12:07 15:45 17:41 WBC RBC Hgb Hct RDW Lymph % (Auto) [place] % (Auto) Lymph # [place] # Seg Neutrophils % Seg Neuts % (Manual) Lymphocytes % (Manual) Monocytes % (Manual) Seg Neutrophils # Seg Neutrophils # Man Lymphocytes # (Manual) Monocytes # (Manual) Heparin Anti-Xa Level POC ABG pH POC ABG pCO2 POC ABG pO2 Sodium Potassium Chloride Carbon Dioxide BUN Creatinine Glucose POC Glucose 193 H 172 H 156 H ALT Alkaline Phosphatase Total Creatine Kinase CK-MB (CK-2) CK-MB (CK-2) Rel Index Troponin T C-Reactive Protein Albumin 03/20/17 03/21/17 03/21/17 23:13 04:42 05:41 WBC RBC Hgb Hct RDW Lymph % (Auto) [place] % (Auto) Lymph # [place] # Seg Neutrophils % Seg Neuts % (Manual) Lymphocytes % (Manual) Monocytes % (Manual) Seg Neutrophils # Seg Neutrophils # Man Lymphocytes # (Manual) Monocytes # (Manual) Heparin Anti-Xa Level POC ABG pH 7.321 L POC ABG pCO2 56.8 H POC ABG pO2 73 L Sodium Potassium Chloride Carbon Dioxide BUN Creatinine Glucose POC Glucose 141 H 159 H ALT Alkaline Phosphatase Total Creatine Kinase CK-MB (CK-2) CK-MB (CK-2) Rel Index Troponin T C-Reactive Protein Albumin 03/21/17 03/21/17 03/21/17 07:45 07:45 12:16 WBC 15.1 H RBC 3.32 L Hgb 9.2 L Hct 28.9 L RDW 17.4 H Lymph % (Auto) 4.7 L [place] % (Auto) 16.0 H Lymph # 0.7 L [place] # 2.4 H Seg Neutrophils % 78.6 H Seg Neuts % (Manual) Lymphocytes % (Manual) Monocytes % (Manual) Seg Neutrophils # 11.8 H Seg Neutrophils # Man Lymphocytes # (Manual) Monocytes # (Manual) Heparin Anti-Xa Level POC ABG pH POC ABG pCO2 POC ABG pO2 Sodium Potassium Chloride 95.4 L Carbon Dioxide BUN 55 H Creatinine 6.9 H Glucose 188 H POC Glucose 226 H ALT Alkaline Phosphatase 244 H Total Creatine Kinase CK-MB (CK-2) CK-MB (CK-2) Rel Index Troponin T C-Reactive Protein Albumin 2.8 L 03/21/17 03/21/17 03/22/17 17:17 23:28 04:49 WBC RBC Hgb Hct RDW Lymph % (Auto) [place] % (Auto) Lymph # [place] # Seg Neutrophils % Seg Neuts % (Manual) Lymphocytes % (Manual) Monocytes % (Manual) Seg Neutrophils # Seg Neutrophils # Man Lymphocytes # (Manual) Monocytes # (Manual) Heparin Anti-Xa Level POC ABG pH 7.323 L POC ABG pCO2 49.5 H POC ABG pO2 77 L Sodium Potassium Chloride Carbon Dioxide BUN Creatinine Glucose POC Glucose 192 H 199 H ALT Alkaline Phosphatase Total Creatine Kinase CK-MB (CK-2) CK-MB (CK-2) Rel Index Troponin T C-Reactive Protein Albumin 03/22/17 03/22/17 03/22/17 06:13 07:40 07:40 WBC 16.4 H RBC 3.29 L Hgb 9.1 L Hct 28.4 L RDW 17.3 H Lymph % (Auto) [place] % (Auto) Lymph # [place] # Seg Neutrophils % Seg Neuts % (Manual) 73.0 H Lymphocytes % (Manual) 8.0 L Monocytes % (Manual) 14.0 H Seg Neutrophils # Seg Neutrophils # Man 12.0 H Lymphocytes # (Manual) Monocytes # (Manual) 2.3 H Heparin Anti-Xa Level POC ABG pH POC ABG pCO2 POC ABG pO2 Sodium Potassium Chloride 94.8 L Carbon Dioxide 21 L BUN 84 H Creatinine 9.4 H Glucose 188 H POC Glucose 190 H ALT Alkaline Phosphatase Total Creatine Kinase CK-MB (CK-2) CK-MB (CK-2) Rel Index Troponin T C-Reactive Protein Albumin 06/23/17 06/23/17 06/23/17 11:43 17:38 23:56 WBC RBC Hgb Hct RDW Lymph % (Auto) [place] % (Auto) Lymph # [place] # Seg Neutrophils % Seg Neuts % (Manual) Lymphocytes % (Manual) Monocytes % (Manual) Seg Neutrophils # Seg Neutrophils # Man Lymphocytes # (Manual) Monocytes # (Manual) Heparin Anti-Xa Level POC ABG pH POC ABG pCO2 POC ABG pO2 Sodium Potassium Chloride Carbon Dioxide BUN Creatinine Glucose POC Glucose 149 H 168 H 229 H ALT Alkaline Phosphatase Total Creatine Kinase CK-MB (CK-2) CK-MB (CK-2) Rel Index Troponin T C-Reactive Protein Albumin 03/23/17 03/23/17 03/23/17 05:00 05:00 05:21 WBC 14.0 H RBC 3.09 L Hgb 8.5 L Hct 27.0 L RDW 17.8 H Lymph % (Auto) [place] % (Auto) Lymph # [place] # Seg Neutrophils % Seg Neuts % (Manual) Lymphocytes % (Manual) 11.0 L Monocytes % (Manual) 13.0 H Seg Neutrophils # Seg Neutrophils # Man 9.2 H Lymphocytes # (Manual) Monocytes # (Manual) 1.8 H Heparin Anti-Xa Level POC ABG pH POC ABG pCO2 POC ABG pO2 Sodium Potassium Chloride 94.5 L Carbon Dioxide BUN 76 H Creatinine 7.5 H Glucose 192 H POC Glucose 195 H ALT Alkaline Phosphatase Total Creatine Kinase CK-MB (CK-2) CK-MB (CK-2) Rel Index Troponin T C-Reactive Protein Albumin 03/23/17 03/23/17 03/23/17 12:15 17:47 23:27 WBC RBC Hgb Hct RDW Lymph % (Auto) [place] % (Auto) Lymph # [place] # Seg Neutrophils % Seg Neuts % (Manual) Lymphocytes % (Manual) Monocytes % (Manual) Seg Neutrophils # Seg Neutrophils # Man Lymphocytes # (Manual) Monocytes # (Manual) Heparin Anti-Xa Level POC ABG pH POC ABG pCO2 POC ABG pO2 Sodium Potassium Chloride Carbon Dioxide BUN Creatinine Glucose POC Glucose 162 H 137 H 221 H ALT Alkaline Phosphatase Total Creatine Kinase CK-MB (CK-2) CK-MB (CK-2) Rel Index Troponin T C-Reactive Protein Albumin 03/24/17 03/24/17 03/24/17 05:42 08:49 08:49 WBC RBC 2.99 L Hgb 8.5 L Hct 25.9 L RDW 18.1 H Lymph % (Auto) [place] % (Auto) Lymph # [place] # Seg Neutrophils % Seg Neuts % (Manual) 83.0 H Lymphocytes % (Manual) 6.0 L Monocytes % (Manual) Seg Neutrophils # Seg Neutrophils # Man 8.5 H Lymphocytes # (Manual) 0.6 L Monocytes # (Manual) Heparin Anti-Xa Level POC ABG pH POC ABG pCO2 POC ABG pO2 Sodium Potassium Chloride 95.4 L Carbon Dioxide BUN 108 H Creatinine 9.4 H Glucose 203 H POC Glucose 216 H ALT Alkaline Phosphatase Total Creatine Kinase CK-MB (CK-2) CK-MB (CK-2) Rel Index Troponin T C-Reactive Protein Albumin 03/24/17 03/24/17 03/24/17 11:21 17:32 23:37 WBC RBC Hgb Hct RDW Lymph % (Auto) [place] % (Auto) Lymph # [place] # Seg Neutrophils % Seg Neuts % (Manual) Lymphocytes % (Manual) Monocytes % (Manual) Seg Neutrophils # Seg Neutrophils # Man Lymphocytes # (Manual) Monocytes # (Manual) Heparin Anti-Xa Level POC ABG pH POC ABG pCO2 POC ABG pO2 Sodium Potassium Chloride Carbon Dioxide BUN Creatinine Glucose POC Glucose 185 H 138 H 218 H ALT Alkaline Phosphatase Total Creatine Kinase CK-MB (CK-2) CK-MB (CK-2) Rel Index Troponin T C-Reactive Protein Albumin 03/25/17 03/25/17 03/25/17 04:38 04:38 05:24 WBC RBC 3.27 L Hgb 9.3 L Hct 29.8 L RDW 18.4 H Lymph % (Auto) [place] % (Auto) Lymph # [place] # Seg Neutrophils % Seg Neuts % (Manual) 78.0 H Lymphocytes % (Manual) 10.0 L Monocytes % (Manual) 9.0 H Seg Neutrophils # Seg Neutrophils # Man Lymphocytes # (Manual) 0.8 L Monocytes # (Manual) Heparin Anti-Xa Level POC ABG pH POC ABG pCO2 POC ABG pO2 Sodium 136 L Potassium Chloride 92.5 L Carbon Dioxide 17 L BUN 124 H Creatinine 9.7 H Glucose 217 H POC Glucose 211 H ALT Alkaline Phosphatase Total Creatine Kinase CK-MB (CK-2) CK-MB (CK-2) Rel Index Troponin T C-Reactive Protein Albumin 03/25/17 03/25/17 03/25/17 11:53 17:15 20:12 WBC RBC Hgb Hct RDW Lymph % (Auto) [place] % (Auto) Lymph # [place] # Seg Neutrophils % Seg Neuts % (Manual) Lymphocytes % (Manual) Monocytes % (Manual) Seg Neutrophils # Seg Neutrophils # Man Lymphocytes # (Manual) Monocytes # (Manual) Heparin Anti-Xa Level POC ABG pH 7.469 H POC ABG pCO2 POC ABG pO2 69 L Sodium Potassium Chloride Carbon Dioxide BUN Creatinine Glucose POC Glucose 165 H 173 H ALT Alkaline Phosphatase Total Creatine Kinase CK-MB (CK-2) CK-MB (CK-2) Rel Index Troponin T C-Reactive Protein Albumin 03/25/17 03/26/17 03/26/17 23:32 05:59 06:03 WBC RBC Hgb Hct RDW Lymph % (Auto) [place] % (Auto) Lymph # [place] # Seg Neutrophils % Seg Neuts % (Manual) Lymphocytes % (Manual) Monocytes % (Manual) Seg Neutrophils # Seg Neutrophils # Man Lymphocytes # (Manual) Monocytes # (Manual) Heparin Anti-Xa Level POC ABG pH POC ABG pCO2 POC ABG pO2 Sodium 136 L Potassium Chloride 91.6 L Carbon Dioxide 20 L BUN 97 H Creatinine 8.0 H Glucose 239 H POC Glucose 231 H 214 H ALT Alkaline Phosphatase Total Creatine Kinase CK-MB (CK-2) CK-MB (CK-2) Rel Index Troponin T C-Reactive Protein Albumin 03/26/17 03/26/17 03/26/17 12:55 18:14 23:27 WBC RBC Hgb Hct RDW Lymph % (Auto) [place] % (Auto) Lymph # [place] # Seg Neutrophils % Seg Neuts % (Manual) Lymphocytes % (Manual) Monocytes % (Manual) Seg Neutrophils # Seg Neutrophils # Man Lymphocytes # (Manual) Monocytes # (Manual) Heparin Anti-Xa Level POC ABG pH POC ABG pCO2 POC ABG pO2 Sodium Potassium Chloride Carbon Dioxide BUN Creatinine Glucose POC Glucose 220 H 236 H 221 H ALT Alkaline Phosphatase Total Creatine Kinase CK-MB (CK-2) CK-MB (CK-2) Rel Index Troponin T C-Reactive Protein Albumin 03/27/17 03/27/17 03/27/17 00:58 04:00 04:00 WBC 12.9 H RBC 3.33 L Hgb 9.2 L Hct 29.0 L RDW 18.0 H Lymph % (Auto) [place] % (Auto) Lymph # [place] # Seg Neutrophils % Seg Neuts % (Manual) 78.0 H Lymphocytes % (Manual) 13.0 L Monocytes % (Manual) Seg Neutrophils # Seg Neutrophils # Man 10.1 H Lymphocytes # (Manual) Monocytes # (Manual) Heparin Anti-Xa Level POC ABG pH POC ABG pCO2 POC ABG pO2 Sodium Potassium Chloride 91.8 L Carbon Dioxide BUN 108 H Creatinine 9.0 H Glucose 237 H POC Glucose ALT Alkaline Phosphatase Total Creatine Kinase CK-MB (CK-2) CK-MB (CK-2) Rel Index Troponin T C-Reactive Protein 7.90 H Albumin 03/27/17 03/27/17 03/27/17 05:24 11:17 17:40 WBC RBC Hgb Hct RDW Lymph % (Auto) [place] % (Auto) Lymph # [place] # Seg Neutrophils % Seg Neuts % (Manual) Lymphocytes % (Manual) Monocytes % (Manual) Seg Neutrophils # Seg Neutrophils # Man Lymphocytes # (Manual) Monocytes # (Manual) Heparin Anti-Xa Level POC ABG pH POC ABG pCO2 POC ABG pO2 Sodium Potassium Chloride Carbon Dioxide BUN Creatinine Glucose POC Glucose 231 H 172 H 223 H ALT Alkaline Phosphatase Total Creatine Kinase CK-MB (CK-2) CK-MB (CK-2) Rel Index Troponin T C-Reactive Protein Albumin 03/27/17 03/28/17 03/28/17 23:49 05:40 11:51 WBC RBC Hgb Hct RDW Lymph % (Auto) [place] % (Auto) Lymph # [place] # Seg Neutrophils % Seg Neuts % (Manual) Lymphocytes % (Manual) Monocytes % (Manual) Seg Neutrophils # Seg Neutrophils # Man Lymphocytes # (Manual) Monocytes # (Manual) Heparin Anti-Xa Level POC ABG pH POC ABG pCO2 POC ABG pO2 Sodium Potassium Chloride Carbon Dioxide BUN Creatinine Glucose POC Glucose 184 H 212 H 187 H ALT Alkaline Phosphatase Total Creatine Kinase CK-MB (CK-2) CK-MB (CK-2) Rel Index Troponin T C-Reactive Protein Albumin 03/28/17 03/29/17 03/29/17 17:11 00:25 05:28 WBC RBC Hgb Hct RDW Lymph % (Auto) [place] % (Auto) Lymph # [place] # Seg Neutrophils % Seg Neuts % (Manual) Lymphocytes % (Manual) Monocytes % (Manual) Seg Neutrophils # Seg Neutrophils # Man Lymphocytes # (Manual) Monocytes # (Manual) Heparin Anti-Xa Level POC ABG pH POC ABG pCO2 POC ABG pO2 Sodium Potassium Chloride Carbon Dioxide BUN Creatinine Glucose POC Glucose 177 H 147 H 143 H ALT Alkaline Phosphatase Total Creatine Kinase CK-MB (CK-2) CK-MB (CK-2) Rel Index Troponin T C-Reactive Protein Albumin 03/29/17 03/30/17 03/30/17 17:46 06:06 10:42 WBC RBC Hgb Hct RDW Lymph % (Auto) [place] % (Auto) Lymph # [place] # Seg Neutrophils % Seg Neuts % (Manual) Lymphocytes % (Manual) Monocytes % (Manual) Seg Neutrophils # Seg Neutrophils # Man Lymphocytes # (Manual) Monocytes # (Manual) Heparin Anti-Xa Level POC ABG pH POC ABG pCO2 POC ABG pO2 Sodium Potassium Chloride Carbon Dioxide BUN Creatinine Glucose POC Glucose 184 H 294 H 299 H ALT Alkaline Phosphatase Total Creatine Kinase CK-MB (CK-2) CK-MB (CK-2) Rel Index Troponin T C-Reactive Protein Albumin 03/30/17 03/30/17 03/30/17 13:21 16:38 19:48 WBC RBC Hgb Hct RDW Lymph % (Auto) [place] % (Auto) Lymph # [place] # Seg Neutrophils % Seg Neuts % (Manual) Lymphocytes % (Manual) Monocytes % (Manual) Seg Neutrophils # Seg Neutrophils # Man Lymphocytes # (Manual) Monocytes # (Manual) Heparin Anti-Xa Level POC ABG pH 7.466 H POC ABG pCO2 POC ABG pO2 Sodium Potassium Chloride Carbon Dioxide BUN Creatinine Glucose POC Glucose 230 H 277 H ALT Alkaline Phosphatase Total Creatine Kinase CK-MB (CK-2) CK-MB (CK-2) Rel Index Troponin T C-Reactive Protein Albumin 03/30/17 03/31/17 03/31/17 23:28 05:49 17:13 WBC RBC Hgb Hct RDW Lymph % (Auto) [place] % (Auto) Lymph # [place] # Seg Neutrophils % Seg Neuts % (Manual) Lymphocytes % (Manual) Monocytes % (Manual) Seg Neutrophils # Seg Neutrophils # Man Lymphocytes # (Manual) Monocytes # (Manual) Heparin Anti-Xa Level POC ABG pH POC ABG pCO2 POC ABG pO2 Sodium Potassium Chloride Carbon Dioxide BUN Creatinine Glucose POC Glucose 203 H 261 H 227 H ALT Alkaline Phosphatase Total Creatine Kinase CK-MB (CK-2) CK-MB (CK-2) Rel Index Troponin T C-Reactive Protein Albumin 03/31/17 04/01/17 04/01/17 19:32 00:39 05:51 WBC RBC Hgb Hct RDW Lymph % (Auto) [place] % (Auto) Lymph # [place] # Seg Neutrophils % Seg Neuts % (Manual) Lymphocytes % (Manual) Monocytes % (Manual) Seg Neutrophils # Seg Neutrophils # Man Lymphocytes # (Manual) Monocytes # (Manual) Heparin Anti-Xa Level POC ABG pH POC ABG pCO2 POC ABG pO2 Sodium Potassium Chloride Carbon Dioxide BUN Creatinine Glucose POC Glucose 238 H 147 H 185 H ALT Alkaline Phosphatase Total Creatine Kinase CK-MB (CK-2) CK-MB (CK-2) Rel Index Troponin T C-Reactive Protein Albumin 04/01/17 04/01/17 12:00 12:17 WBC RBC Hgb Hct RDW Lymph % (Auto) [place] % (Auto) Lymph # [place] # Seg Neutrophils % Seg Neuts % (Manual) Lymphocytes % (Manual) Monocytes % (Manual) Seg Neutrophils # Seg Neutrophils # Man Lymphocytes # (Manual) Monocytes # (Manual) Heparin Anti-Xa Level POC ABG pH POC ABG pCO2 POC ABG pO2 Sodium 136 L Potassium 5.4 H Chloride 88.3 L Carbon Dioxide 20 L BUN 110 H Creatinine 10.8 H Glucose 209 H POC Glucose 261 H ALT Alkaline Phosphatase Total Creatine Kinase CK-MB (CK-2) CK-MB (CK-2) Rel Index Troponin T C-Reactive Protein Albumin Allied health notes reviewed: RT
[2017-04-02] MEDS: DUONEB *Not for PRN Use IH SCH ×4 (01:42→21:00)
[2017-04-02] MEDS: LOPRESSOR PO SCH ×4 (03:23→22:40)
[2017-04-02] MEDS: HEPARIN SUB-Q SCH ×3 (06:09→22:42)
[2017-04-02 07:52] LABS: Basophils % (Auto) 0.6 % (0.0-1.8); Eosinophils % (Auto) 1.7 % (0.0-4.3); Hematocrit 33.6 % (30.3-42.9); Hemoglobin 10.6 gm/dl (10.1-14.3); Mean Corpuscular HGB Conc 32 % (30-34); Mean Corpuscular Hemoglobin 29 pg (28-32); Mean Corpuscular Volume 91 fl (79-97); Platelet Count 250 K/mm3 (140-440); Red Blood Count 3.71 M/mm3 (3.65-5.03); Red Cell Distribution Width 19.6 % (13.2-15.2); White Blood Count 9.7 K/mm3 (4.5-11.0)
[2017-04-02 07:57] LABS: BUN/Creatinine Ratio 8.33; Calcium 10.8 mg/dL (8.4-10.2); Potassium 5.3 mmol/L (3.6-5.0)
--- NOTE | 2017-04-02 09:50 | Progress Note ---
Assessment and Plan Assessment and plan: 66-year-old female presents to the emergency department complaining of chest pain after dialysis. While in triage, the patient went unresponsive, and without a pulse, No palpable pulses were identified. Patient was placed on a student support services director and ventricular fibrillation was noted. Patient was defibrillated a single time with 200 J. She received CPR protocol, was intubated and had ROSC, and she was then taken to the ICU. Postarrest ECG was consistent with anterior STEMI. Code STEMI was activated, she was taken to label cutter and received angiogram ; stent x 2 in LAD noted to be patent, but had distal LAD spasm Cardiovascular cardiac arrest; Vfib, STEMI, ACS, Distal LAD spasm, cardiogenic shock Cardiology input appreciated, status post cath with patent stents she was rx with amio drip, received heparin ggt x 24 hours, received Dopamine drip for Cardiogenic shock and hypotension,now improved; currently on Lopressor for rate control and now hypertensive -Hypertension. continue antihypertensive medications -Hyperlipidemia- Continue statin therapy Pulmonary [facility] Status post extubation 03/24/17, continue oxygen supplementation and noninvasive positive pressure ventilation as needed GI Nausea/Vomiting- Start on zofran, now resolved Dysphagia has now resolved, continue diet Toxic metabolic encephalopathy EEG was reviewed, seizure is unlikely. encephalopathy most likely due to anoxic brain injury, acute illness, cardiogenic shock, cardiac arrest and IV sedation now improved, Neurology input appreciated, MRI cw anoxic injury CVA Left facial droop/LUE weakness * MR brain shows acute CVA , MRA head is unremarkable * Carotid duplex shows no significant stenosis * continue statin and plavix ID Sepsis syndrome; ID consult appreciated, Continue current empiric therapy. WBC count is slowly downtrending, has completed empiric abx course RENAL/FEN End stage renal disease on hemodialysis. Nephrology following. Continue hemodialysis Hyperkalemia-corrected with dialysis Complete immobility due to frailty PT consult, patient will need SNIF placement Critical illness myopathy Pain medications as needed Severe malnutrition/Dysphagia dietetic aide and speech therapy consult appreciated s/p MBS, report reviewed, there was no aspiration, patient has been transitioned to mechanical soft diet and thin liquids. Diabetes mellitus type 2. Accu-Cheks and sliding scale insulin. Morbid obesity- will deputy general counsel when clinically improved about lifestyle modification Anemia of CKD. Follow H&H. Transfuse as necessary. DVT heparin subq, Discussed plan with the patient and her daughter Plan for SNIF placement, case management was updated on the plan History Interval history: She is improved, she is complaining of muscle pains all over her body, otherwise she denies dysphagia or sob Hospitalist Physical - Physical exam Narrative exam: General: appears well HEENT: MMM, EOMI cardiac: S1-S2 heard lungs: clear to auscultation, abdomen: soft, nontender, nondistended bowel sounds positive extremities: no edema clubbing or cyanosis muscle soreness to palpation all over her body Skin: no rash or lesion Neuro: AAOx3, Left facial droop, LUE focal weakness, moves all extremities, obeys commands, generalized weakness Psych: calm, cooperative - Constitutional Vitals: Temp Pulse Resp BP Pulse Ox 99.3 F 79 18 115/56 100 04/02/17 08:00 04/02/17 08:00 04/02/17 08:00 04/02/17 08:00 04/02/17 08:00 General appearance: Present: no acute distress, obese Results - Labs CBC & Chem 7: 04/02/17 06:40 04/02/17 06:40 Labs: Laboratory Last Values WBC 9.7 K/mm3 (4.5-11.0) 04/02/17 06:40 RBC 3.71 M/mm3 (3.65-5.03) 04/02/17 06:40 Hgb 10.6 gm/dl (10.1-14.3) 04/02/17 06:40 Hct 33.6 % (30.3-42.9) 04/02/17 06:40 MCV 91 fl (79-97) 04/02/17 06:40 MCH 29 pg (28-32) 04/02/17 06:40 MCHC 32 % (30-34) 04/02/17 06:40 RDW 19.6 % (13.2-15.2) H 04/02/17 06:40 Plt Count 250 K/mm3 (140-440) 04/02/17 06:40 Lymph % (Auto) 8.5 % (13.4-35.0) L 04/02/17 06:40 [place] % (Auto) 12.8 % (0.0-7.3) H 04/02/17 06:40 Eos % (Auto) 1.7 % (0.0-4.3) 04/02/17 06:40 Baso % (Auto) 0.6 % (0.0-1.8) 04/02/17 06:40 Lymph # 0.8 K/mm3 (1.2-5.4) L 04/02/17 06:40 [place] # 1.2 K/mm3 (0.0-0.8) H 04/02/17 06:40 Eos # 0.2 K/mm3 (0.0-0.4) 04/02/17 06:40 Baso # 0.1 K/mm3 (0.0-0.1) 04/02/17 06:40 Add Manual Diff Complete 03/27/17 04:00 Total Counted 100 03/27/17 04:00 Seg Neutrophils % 76.4 % (40.0-70.0) H 04/02/17 06:40 Seg Neuts % (Manual) 78.0 % (40.0-70.0) H 03/27/17 04:00 Band Neutrophils % 1.0 % 03/27/17 04:00 Lymphocytes % (Manual) 13.0 % (13.4-35.0) L 03/27/17 04:00 Reactive Lymphs % (Man) 0 % 03/27/17 04:00 Monocytes % (Manual) 6.0 % (0.0-7.3) 03/27/17 04:00 Eosinophils % (Manual) 2.0 % (0.0-4.3) 03/27/17 04:00 Basophils % (Manual) 0 % (0.0-1.8) 03/27/17 04:00 Metamyelocytes % 0 % 03/27/17 04:00 Myelocytes % 0 % 03/27/17 04:00 Promyelocytes % 0 % 03/27/17 04:00 Blast Cells % 0 % 03/27/17 04:00 Nucleated RBC % Not Reportable 03/27/17 04:00 Seg Neutrophils # 7.4 K/mm3 (1.8-7.7) 04/02/17 06:40 Seg Neutrophils # Man 10.1 K/mm3 (1.8-7.7) H 03/27/17 04:00 Band Neutrophils # 0.1 K/mm3 03/27/17 04:00 Lymphocytes # (Manual) 1.7 K/mm3 (1.2-5.4) 03/27/17 04:00 Abs React Lymphs (Man) 0.0 K/mm3 03/27/17 04:00 Monocytes # (Manual) 0.8 K/mm3 (0.0-0.8) 03/27/17 04:00 Eosinophils # (Manual) 0.3 K/mm3 (0.0-0.4) 03/27/17 04:00 Basophils # (Manual) 0.0 K/mm3 (0.0-0.1) 03/27/17 04:00 Metamyelocytes # 0.0 K/mm3 03/27/17 04:00 Myelocytes # 0.0 K/mm3 03/27/17 04:00 Promyelocytes # 0.0 K/mm3 03/27/17 04:00 Blast Cells # 0.0 K/mm3 03/27/17 04:00 WBC Morphology Not Reportable 03/27/17 04:00 Hypersegmented Neuts Not Reportable 03/27/17 04:00 Hyposegmented Neuts Not Reportable 03/27/17 04:00 Hypogranular Neuts Not Reportable 03/27/17 04:00 Smudge Cells Not Reportable 03/27/17 04:00 Toxic Granulation Not Reportable 03/27/17 04:00 Toxic Vacuolation Not Reportable 03/27/17 04:00 Dohle Bodies Not Reportable 03/27/17 04:00 Pelger-Huet Anomaly Not Reportable 03/27/17 04:00 Tunde Rods Not Reportable 03/27/17 04:00 Platelet Estimate Consistent w auto 03/27/17 04:00 Clumped Platelets Not Reportable 03/27/17 04:00 Plt Clumps, EDTA Not Reportable 03/27/17 04:00 Large Platelets Not Reportable 03/27/17 04:00 Giant Platelets Not Reportable 03/27/17 04:00 Platelet Satelliting Not Reportable 03/27/17 04:00 Plt Morphology Comment Not Reportable 03/27/17 04:00 RBC Morphology Not Reportable 03/27/17 04:00 Dimorphic RBCs Not Reportable 03/27/17 04:00 Polychromasia Few 03/27/17 04:00 Hypochromasia Not Reportable 03/27/17 04:00 Poikilocytosis Not Reportable 03/27/17 04:00 Anisocytosis Not Reportable 03/27/17 04:00 Microcytosis Not Reportable 03/27/17 04:00 Macrocytosis Not Reportable 03/27/17 04:00 Spherocytes Not Reportable 03/27/17 04:00 Pappenheimer Bodies Not Reportable 03/27/17 04:00 Sickle Cells Not Reportable 03/27/17 04:00 Target Cells Not Reportable 03/27/17 04:00 Tear Drop Cells Not Reportable 03/27/17 04:00 Ovalocytes Not Reportable 03/27/17 04:00 Helmet Cells Not Reportable 03/27/17 04:00 [place] Bodies Not Reportable 03/27/17 04:00 [place] Rings Not Reportable 03/27/17 04:00 [place] Cells Not Reportable 03/27/17 04:00 Bite Cells Not Reportable 03/27/17 04:00 Crenated Cell Not Reportable 03/27/17 04:00 Elliptocytes Not Reportable 03/27/17 04:00 Acanthocytes (Spur) Not Reportable 03/27/17 04:00 Rouleaux Not Reportable 03/27/17 04:00 Hemoglobin C Crystals Not Reportable 03/27/17 04:00 Schistocytes Not Reportable 03/27/17 04:00 Malaria parasites Not Reportable 03/27/17 04:00 [place] Bodies Not Reportable 03/27/17 04:00 Hem Pathologist Commnt No 03/27/17 04:00 PT 13.4 Sec. (12.2-14.9) 03/16/17 11:07 INR 1.03 (0.87-1.13) 03/16/17 11:07 APTT 24.1 Sec. (24.2-36.6) L 03/16/17 11:07 Activated Clotting Time 125 (74-137) 03/17/17 08:23 Heparin Anti-Xa Level < 0.10 U.I./ml (0.3-0.7) L 03/17/17 21:12 POC ABG pH 7.466 (7.35-7.45) H 03/30/17 13:21 POC ABG pCO2 37.9 (35-45) 03/30/17 13:21 POC ABG pO2 100 (80-105) 03/30/17 13:21 POC ABG HCO3 27.4 03/30/17 13:21 POC ABG Total CO2 28 03/30/17 13:21 POC ABG O2 Sat 98 03/30/17 13:21 POC ABG Base Excess 4 03/30/17 13:21 FiO2 2 % 03/30/17 13:21 Sodium 137 mmol/L (137-145) 04/02/17 06:40 Potassium 5.3 mmol/L (3.6-5.0) H 04/02/17 06:40 Chloride 91.0 mmol/L (98-107) L 04/02/17 06:40 Carbon Dioxide 26 mmol/L (22-30) 04/02/17 06:40 Anion Gap 25 mmol/L 04/02/17 06:40 BUN 50 mg/dL (7-17) H 04/02/17 06:40 Creatinine 6.0 mg/dL (0.7-1.2) H 04/02/17 06:40 Estimated GFR 8 ml/min 04/02/17 06:40 BUN/Creatinine Ratio 8.33 % 04/02/17 06:40 Glucose 183 mg/dL (65-100) H 04/02/17 06:40 POC Glucose 213 (70-105) H 04/02/17 05:16 Lactic Acid 1.50 mmol/L (0.7-2.0) 03/27/17 00:58 Calcium 10.8 mg/dL (8.4-10.2) H 04/02/17 06:40 Total Bilirubin 0.50 mg/dL (0.1-1.2) 03/21/17 07:45 AST 23 units/L (5-40) 03/21/17 07:45 ALT 40 units/L (7-56) 03/21/17 07:45 Alkaline Phosphatase 244 units/L (35-129) H 03/21/17 07:45 Ammonia 38.0 umol/L (25-60) 03/18/17 19:02 Total Creatine Kinase 282 units/L (30-135) H 03/16/17 16:36 CK-MB (CK-2) 24.2 ng/mL (0.0-4.0) H 03/16/17 16:36 CK-MB (CK-2) Rel Index 8.5 (0-4) H 03/16/17 16:36 Troponin T 0.656 ng/mL (0.00-0.029) H* D 03/16/17 16:36 C-Reactive Protein 7.90 mg/dL (0.00-1.30) H 03/27/17 00:58 Total Protein 7.3 g/dL (6.3-8.2) 03/21/17 07:45 Albumin 2.8 g/dL (3.9-5) L 03/21/17 07:45 Albumin/Globulin Ratio 0.6 % 03/21/17 07:45 Triglycerides 134 mg/dL (2-149) 03/16/17 11:07 Cholesterol 228 mg/dL (50-199) H 03/16/17 11:07 LDL Cholesterol Direct 165 mg/dL (50-130) H 03/16/17 11:07 HDL Cholesterol 37 mg/dL (40-59) L 03/16/17 11:07 Cholesterol/HDL Ratio 6.16 % 03/16/17 11:07 TSH 0.746 mlU/mL (0.270-4.200) 03/18/17 19:02 Random Vancomycin 20.9 ug/mL (0-40.0) 03/22/17 07:40 Hepatitis A IgM Ab Non-reactive (NonReactive) 03/19/17 04:31 Hep Bs Antigen Non-reactive (Negative) 03/19/17 04:31 Hep B Core IgM Ab Non-reactive (NonReactive) 03/19/17 04:31 Hepatitis C Antibody Non-reactive (NonReactive) 03/19/17 04:31 Blood Type A POSITIVE 03/16/17 16:36 Antibody Screen TNR 03/16/17 16:36 CLAIR Antibody Screen Negative 03/16/17 16:36
--- NOTE | 2017-04-02 11:12 | Progress Note ---
Assessment and Plan S/p V fib arrest (cardiac arrest)/STEMI Will discuss possible Lifevest placement with EP Coronary artery disease s/p PCI [facility] 03/16: patent LAD stents, possible distal LAD spasm pt. is allergic to ASA, continue Plavix, statin, metoprolol c/o chest soreness this am, likely musculoskeletal, will obtain 12 lead EKG Post op afib-->currently SR Hypertension stable Hyperlipidemia Pulmonary HTN ESRD on HD Respiratory failure s/p extubation Patient is comfortable today. Cardiac rhythm is satisfactory no complex arrhythmias are noted on the monitor. Patient is gradually improving. Continue current management. - Patient Problems (1) Cardiac arrest due to underlying cardiac condition Current Visit: Yes Status: Acute (2) STEMI (ST elevation myocardial infarction) Current Visit: Yes Status: Acute Qualifiers: Involved coronary artery: unspecified coronary artery Qualified Code(s): I21.3 - ST elevation (STEMI) myocardial infarction of unspecified site (3) Pulmonary HTN Current Visit: Yes Status: Chronic (4) Acute hypoxemic respiratory failure Current Visit: Yes Status: Resolved (5) Hypertension Current Visit: No Status: Chronic Qualifiers: Hypertension type: H Subjective Date of service: 04/02/17 Principal diagnosis: Acute Hypoxemic Resp Failure; STEMI Interval history: Patient is comfortable today. Complains about soreness in the left upper chest most likely related to the CPR. No other significant symptoms. Objective Vital Signs Temp Pulse Pulse Pulse Pulse Pulse Pulse 04/02/17 08:00 99.3 F 04/02/17 05:00 98.4 F 04/02/17 03:23 88 04/02/17 01:48 89 04/02/17 01:42 87 04/02/17 00:09 87 04/02/17 00:00 98.1 F 04/01/17 22:00 112 H 04/01/17 21:58 04/01/17 20:30 98.4 F 98 H 04/01/17 20:15 87 04/01/17 20:00 100 H 04/01/17 19:45 100 H 04/01/17 19:30 100 H 04/01/17 19:15 100 H 04/01/17 19:00 99 H 04/01/17 18:45 98 H 04/01/17 18:30 93 H 04/01/17 18:15 96 H 04/01/17 18:00 96 H 04/01/17 17:52 99.1 F 90 85 85 85 04/01/17 17:45 94 H 04/01/17 17:30 94 H 04/01/17 17:15 95 H 04/01/17 17:00 92 H 04/01/17 16:45 94 H 04/01/17 16:30 86 04/01/17 16:15 98.0 F 87 04/01/17 14:32 98.0 F 86 85 85 85 85 04/01/17 14:14 86 Pulse Resp Resp Resp BP BP Pulse Ox 04/02/17 08:00 79 18 115/56 100 04/02/17 05:00 81 18 116/78 98 04/02/17 03:23 120/58 04/02/17 01:48 19 04/02/17 01:42 19 04/02/17 00:09 19 97 04/02/17 00:00 96 H 18 106/50 97 04/01/17 22:00 18 18 132/60 98 04/01/17 21:58 18 04/01/17 20:30 18 151/87 04/01/17 20:15 150/86 04/01/17 20:00 148/82 04/01/17 19:45 144/84 04/01/17 19:30 149/89 04/01/17 19:15 152/76 04/01/17 19:00 169/88 04/01/17 18:45 135/75 04/01/17 18:30 145/78 04/01/17 18:15 120/70 04/01/17 18:00 141/75 04/01/17 17:52 85 20 127/63 100 04/01/17 17:45 151/66 04/01/17 17:30 133/77 04/01/17 17:15 130/77 04/01/17 17:00 130/74 04/01/17 16:45 130/76 04/01/17 16:30 156/68 04/01/17 16:15 20 135/63 04/01/17 14:32 85 18 18 127/65 99 04/01/17 14:14 16 - Physical Examination General: Appears Well, No Apparent Distress HEENT: Positive: Normocephaly, Mucus Membranes Moist Neck: Positive: neck supple, trachea midline Cardiac: Positive: Regular Rate Lungs: Positive: clear to auscultation Neuro: Positive: Grossly Intact Abdomen: Positive: Soft, Active Bowel Sounds Skin: Negative: Clear, Rash Musculoskeletal: No Fluid Collection, No Pain, Normal Range of Motion, other ( reproducible anterior chest wall tenderness) Extremities: Present: upper extr. pulses, lower extr. pulses. Absent: edema - Labs and Meds CBC 04/02/17 Range/Units 06:40 WBC 9.7 (4.5-11.0) K/mm3 RBC 3.71 (3.65-5.03) M/mm3 Hgb 10.6 (10.1-14.3) gm/dl Hct 33.6 (30.3-42.9) % Plt Count 250 (140-440) K/mm3 Lymph # 0.8 L (1.2-5.4) K/mm3 [place] # 1.2 H (0.0-0.8) K/mm3 Eos # 0.2 (0.0-0.4) K/mm3 Baso # 0.1 (0.0-0.1) K/mm3 Comprehensive Metabolic Panel 04/01/17 04/02/17 Range/Units 12:17 06:40 Sodium 136 L 137 (137-145) mmol/L Potassium 5.4 H 5.3 H (3.6-5.0) mmol/L Chloride 88.3 L 91.0 L (98-107) mmol/L Carbon Dioxide 20 L 26 (22-30) mmol/L BUN 110 H 50 H (7-17) mg/dL Creatinine 10.8 H 6.0 H (0.7-1.2) mg/dL Glucose 209 H 183 H (65-100) mg/dL Calcium 10.1 10.8 H (8.4-10.2) mg/dL - Imaging and Cardiology EKG: report reviewed, image reviewed Echo: report reviewed (echo reviewed - EF 60 - 65%, mild MR< mild TR, moderate , mild LVH, mild to moderate pulmonary HTN, RVSP 47mmHg. ) Cardiac cath: report reviewed (patent lad stents and distal lad spasm resolved) - EKG Sinus rhythms and dysrhythmias: sinus rhythm Myocardial infarction: inferior MT (acute or rec, anterior MT (acute or rec - Allied health notes Allied health notes reviewed: RT
[2017-04-02] MEDS: ULTRAM PO PRN ×2 (11:39→19:09)
[2017-04-02] MEDS: PLAVIX PO SCH (11:40)
[2017-04-02] MEDS: PEPCID PO SCH (11:40)
[2017-04-02] MEDS: LEVEMIR SUB-Q SCH (11:41)
--- NOTE | 2017-04-02 12:50 | Progress Note ---
Assessment and Plan Assessment: * End stage renal disease on HD (TTS outpatient schedule) * STEMI s/p LHC with PCI * s/p cardiac/Vfib arrest * Cardiogenic shock * Anemia secondary to ESRD * Secondary hyperparathyroidism Plan: * Hemodialysis MWF schedule for now; change to TTS schedule when nearing discharge * UF as tolerated * Optimization of cardiac function * Cardiology recommendations reviewed - note plan for EP eval/life vest * Epogen for goal Hb 10-12 * Diet when cleared by speech pathology * BMP pending; AM labs ordered Subjective Date of service: 04/02/17 Principal diagnosis: Acute Hypoxemic Resp Failure; STEMI Interval history: Patient has no complaints; seen resting comfortably Objective - Vital Signs Vital signs: Vital Signs - 12hr 04/02/17 04/02/17 04/02/17 01:42 01:48 03:23 Temperature Pulse Rate 88 Pulse Rate [ 87 89 Anterior Bilateral Throughout] Pulse Rate [ Right Radial] Respiratory Rate Respiratory 19 19 Rate [Anterior Bilateral Throughout] Blood Pressure 120/58 Blood Pressure [Left Arm] O2 Sat by Pulse Oximetry 04/02/17 04/02/17 05:00 08:00 Temperature 98.4 F 99.3 F Pulse Rate Pulse Rate [ Anterior Bilateral Throughout] Pulse Rate [ 81 79 Right Radial] Respiratory 18 18 Rate Respiratory Rate [Anterior Bilateral Throughout] Blood Pressure Blood Pressure 116/78 115/56 [Left Arm] O2 Sat by Pulse 98 100 Oximetry - General Appearance General appearance: well-developed, well-nourished EENT: ATNC Respiratory: Present: Clear to Ascultation Cardiology: regular, S1S2 Gastrointestinal: normal, no tenderness, no distended Integumentary: no rash Musculoskeletal: other (no edema) Psychiatric: cooperative - Lab 04/02/17 06:40 04/02/17 06:40 Most recent lab results Calcium 10.8 mg/dL (8.4-10.2) H 04/02/17 06:40
--- NOTE | 2017-04-02 15:57 | Progress Note ---
Assessment and Plan Patient alert, awake and resting on nasal canula 2 litres O2. O2 saturation 100% .No complaint of chest pain or shortness of breath. - Patient Problems (1) Acute hypoxemic respiratory failure Current Visit: Yes Status: Resolved Plan to address problem: Patient extubated . Presently on nasal canula 2 litres. O2 saturation 100%. BIPAP stand by Recommend to place her on BIPAP during night time and prn for shortness of breath during day time. Albuterol/atrovent aerosol treatments q 6 hours. Continue S/C Heparin. Continue Famotidine. (2) Hypotension Current Visit: Yes Status: Acute Qualifiers: Hypotension type: H Trimester: T Plan to address problem: Improved. Blood pressure 115/56. (3) ESRD on dialysis Current Visit: Yes Status: Acute Plan to address problem: Management as per nephrology. (4) Pneumomediastinum Current Visit: Yes Status: Acute Plan to address problem: Repeat chest xray did not report pneumomediastinum or Pneumothorax. (5) Obesity (BMI 30-39.9) Current Visit: Yes Status: Chronic Plan to address problem: Recommend to loose weight. Weight reduction diet. (6) Sleep apnea, obstructive Current Visit: Yes Status: Acute Plan to address problem: Patient says has history of sleep apnea. Uses CPAP at home. Place her on BIPAP during night time. Subjective Date of service: 04/02/17 Principal diagnosis: Acute Hypoxemic Resp Failure; STEMI Interval history: Patient alert, awake and resting on nasal canula 2 litres O2. O2 saturation 100% .No complaint of chest pain or shortness of breath. Objective Vital Signs - 12hr 04/02/17 04/02/17 04/02/17 05:00 08:00 08:42 Temperature 98.4 F 99.3 F Pulse Rate [ 78 Anterior Bilateral Throughout] Pulse Rate [ 81 79 Right Radial] Respiratory 18 18 Rate Respiratory 18 Rate [Anterior Bilateral Throughout] Blood Pressure Blood Pressure 116/78 115/56 [Left Arm] O2 Sat by Pulse 98 100 100 Oximetry 04/02/17 04/02/17 04/02/17 08:52 10:00 12:00 Temperature 98.0 F Pulse Rate [ 82 Anterior Bilateral Throughout] Pulse Rate [ 80 Right Radial] Respiratory 20 18 Rate Respiratory 18 Rate [Anterior Bilateral Throughout] Blood Pressure Blood Pressure 115/56 [Left Arm] O2 Sat by Pulse 96 Oximetry 04/02/17 14:27 Temperature Pulse Rate [ Anterior Bilateral Throughout] Pulse Rate [ Right Radial] Respiratory Rate Respiratory Rate [Anterior Bilateral Throughout] Blood Pressure 115/56 Blood Pressure [Left Arm] O2 Sat by Pulse Oximetry Constitutional: no acute distress, alert, other Eyes: non-icteric ENT: oropharynx moist Neck: supple, no lymphadenopathy, no JVD Effort: mildly labored Ascultation: Bilateral: diminished breath sounds, rales (scant in bases) Cardiovascular: regular rate and rhythm Gastrointestinal: normoactive bowel sounds, soft, non-tender, non-distended Integumentary: normal, other (Femoral CVC) Extremities: no cyanosis, no edema, pulses normal, no ischemia or petechiae Neurologic: normal mental status, non-focal exam (Moves all extremities, tracks my voice, attempts to vocalize in response to questions), pupils equal and round , motor strength normal and, other (very weak) Psychiatric: mood appropriate, affect normal, depressed CBC and BMP: 04/02/17 06:40 04/02/17 06:40 ABG, PT/INR, D-dimer: ABG POC ABG pH 7.466 (7.35-7.45) H 03/30/17 13:21 POC ABG pCO2 37.9 (35-45) 03/30/17 13:21 POC ABG pO2 100 (80-105) 03/30/17 13:21 POC ABG HCO3 27.4 03/30/17 13:21 POC ABG Total CO2 28 03/30/17 13:21 POC ABG O2 Sat 98 03/30/17 13:21 PT/INR, D-dimer PT 13.4 Sec. (12.2-14.9) 03/16/17 11:07 INR 1.03 (0.87-1.13) 03/16/17 11:07 Abnormal lab findings: Abnormal Labs 03/16/17 03/16/17 03/17/17 16:36 18:00 03:42 WBC 20.6 H RBC Hgb Hct RDW 17.3 H Lymph % (Auto) [place] % (Auto) Lymph # [place] # Seg Neutrophils % Seg Neuts % (Manual) 84.0 H Lymphocytes % (Manual) 3.0 L Monocytes % (Manual) 11.0 H Seg Neutrophils # Seg Neutrophils # Man 17.3 H Lymphocytes # (Manual) 0.6 L Monocytes # (Manual) 2.3 H Heparin Anti-Xa Level POC ABG pH 7.336 L POC ABG pCO2 47.9 H POC ABG pO2 189 H Sodium Potassium Chloride Carbon Dioxide BUN Creatinine Glucose POC Glucose Calcium ALT Alkaline Phosphatase Total Creatine Kinase 282 H CK-MB (CK-2) 24.2 H CK-MB (CK-2) Rel Index 8.5 H Troponin T 0.656 H* D C-Reactive Protein Albumin 03/17/17 03/17/17 03/17/17 03:42 04:21 17:15 WBC RBC Hgb Hct RDW Lymph % (Auto) [place] % (Auto) Lymph # [place] # Seg Neutrophils % Seg Neuts % (Manual) Lymphocytes % (Manual) Monocytes % (Manual) Seg Neutrophils # Seg Neutrophils # Man Lymphocytes # (Manual) Monocytes # (Manual) Heparin Anti-Xa Level 0.10 L POC ABG pH POC ABG pCO2 POC ABG pO2 Sodium 131 L Potassium 5.3 H D Chloride 89.5 L Carbon Dioxide 21 L BUN 39 H Creatinine 7.0 H Glucose 151 H POC Glucose Calcium ALT Alkaline Phosphatase Total Creatine Kinase CK-MB (CK-2) CK-MB (CK-2) Rel Index Troponin T C-Reactive Protein 33.90 H Albumin 03/17/17 03/18/17 03/18/17 21:12 03:33 03:33 WBC 17.6 H RBC 3.59 L Hgb Hct RDW 16.9 H Lymph % (Auto) 4.2 L [place] % (Auto) 11.8 H Lymph # 0.7 L [place] # 2.1 H Seg Neutrophils % 83.3 H Seg Neuts % (Manual) Lymphocytes % (Manual) Monocytes % (Manual) Seg Neutrophils # 14.7 H Seg Neutrophils # Man Lymphocytes # (Manual) Monocytes # (Manual) Heparin Anti-Xa Level < 0.10 L POC ABG pH POC ABG pCO2 POC ABG pO2 Sodium 127 L Potassium 6.1 H* Chloride 87.2 L Carbon Dioxide BUN 55 H Creatinine 8.7 H Glucose 140 H POC Glucose Calcium ALT Alkaline Phosphatase Total Creatine Kinase CK-MB (CK-2) CK-MB (CK-2) Rel Index Troponin T C-Reactive Protein Albumin 03/18/17 03/18/17 03/19/17 04:34 22:15 00:04 WBC RBC Hgb Hct RDW Lymph % (Auto) [place] % (Auto) Lymph # [place] # Seg Neutrophils % Seg Neuts % (Manual) Lymphocytes % (Manual) Monocytes % (Manual) Seg Neutrophils # Seg Neutrophils # Man Lymphocytes # (Manual) Monocytes # (Manual) Heparin Anti-Xa Level POC ABG pH 7.289 L POC ABG pCO2 48.7 H POC ABG pO2 Sodium Potassium 5.6 H Chloride Carbon Dioxide BUN Creatinine Glucose POC Glucose 108 H Calcium ALT Alkaline Phosphatase Total Creatine Kinase CK-MB (CK-2) CK-MB (CK-2) Rel Index Troponin T C-Reactive Protein Albumin 03/19/17 03/19/17 03/19/17 05:22 08:00 08:00 WBC 16.3 H RBC 3.15 L Hgb 8.8 L Hct 27.3 L RDW 17.4 H Lymph % (Auto) 3.4 L [place] % (Auto) 10.1 H Lymph # 0.5 L [place] # 1.7 H Seg Neutrophils % 85.4 H Seg Neuts % (Manual) Lymphocytes % (Manual) Monocytes % (Manual) Seg Neutrophils # 13.9 H Seg Neutrophils # Man Lymphocytes # (Manual) Monocytes # (Manual) Heparin Anti-Xa Level POC ABG pH POC ABG pCO2 POC ABG pO2 Sodium 131 L Potassium Chloride 89.3 L Carbon Dioxide BUN 56 H Creatinine 7.8 H Glucose 122 H POC Glucose 146 H Calcium ALT 59 H Alkaline Phosphatase 208 H Total Creatine Kinase CK-MB (CK-2) CK-MB (CK-2) Rel Index Troponin T C-Reactive Protein Albumin 2.6 L 03/19/17 03/19/17 03/19/17 08:06 11:50 17:36 WBC RBC Hgb Hct RDW Lymph % (Auto) [place] % (Auto) Lymph # [place] # Seg Neutrophils % Seg Neuts % (Manual) Lymphocytes % (Manual) Monocytes % (Manual) Seg Neutrophils # Seg Neutrophils # Man Lymphocytes # (Manual) Monocytes # (Manual) Heparin Anti-Xa Level POC ABG pH 7.338 L POC ABG pCO2 49.2 H POC ABG pO2 110 H Sodium Potassium Chloride Carbon Dioxide BUN Creatinine Glucose POC Glucose 172 H 152 H Calcium ALT Alkaline Phosphatase Total Creatine Kinase CK-MB (CK-2) CK-MB (CK-2) Rel Index Troponin T C-Reactive Protein Albumin 03/20/17 03/20/17 03/20/17 00:14 04:15 05:06 WBC RBC Hgb Hct RDW Lymph % (Auto) [place] % (Auto) Lymph # [place] # Seg Neutrophils % Seg Neuts % (Manual) Lymphocytes % (Manual) Monocytes % (Manual) Seg Neutrophils # Seg Neutrophils # Man Lymphocytes # (Manual) Monocytes # (Manual) Heparin Anti-Xa Level POC ABG pH 7.288 L POC ABG pCO2 51.4 H POC ABG pO2 Sodium Potassium Chloride Carbon Dioxide BUN Creatinine Glucose POC Glucose 132 H 166 H Calcium ALT Alkaline Phosphatase Total Creatine Kinase CK-MB (CK-2) CK-MB (CK-2) Rel Index Troponin T C-Reactive Protein Albumin 03/20/17 03/20/17 03/20/17 12:07 15:45 17:41 WBC RBC Hgb Hct RDW Lymph % (Auto) [place] % (Auto) Lymph # [place] # Seg Neutrophils % Seg Neuts % (Manual) Lymphocytes % (Manual) Monocytes % (Manual) Seg Neutrophils # Seg Neutrophils # Man Lymphocytes # (Manual) Monocytes # (Manual) Heparin Anti-Xa Level POC ABG pH POC ABG pCO2 POC ABG pO2 Sodium Potassium Chloride Carbon Dioxide BUN Creatinine Glucose POC Glucose 193 H 172 H 156 H Calcium ALT Alkaline Phosphatase Total Creatine Kinase CK-MB (CK-2) CK-MB (CK-2) Rel Index Troponin T C-Reactive Protein Albumin 03/20/17 03/21/17 03/21/17 23:13 04:42 05:41 WBC RBC Hgb Hct RDW Lymph % (Auto) [place] % (Auto) Lymph # [place] # Seg Neutrophils % Seg Neuts % (Manual) Lymphocytes % (Manual) Monocytes % (Manual) Seg Neutrophils # Seg Neutrophils # Man Lymphocytes # (Manual) Monocytes # (Manual) Heparin Anti-Xa Level POC ABG pH 7.321 L POC ABG pCO2 56.8 H POC ABG pO2 73 L Sodium Potassium Chloride Carbon Dioxide BUN Creatinine Glucose POC Glucose 141 H 159 H Calcium ALT Alkaline Phosphatase Total Creatine Kinase CK-MB (CK-2) CK-MB (CK-2) Rel Index Troponin T C-Reactive Protein Albumin 03/21/17 03/21/17 03/21/17 07:45 07:45 12:16 WBC 15.1 H RBC 3.32 L Hgb 9.2 L Hct 28.9 L RDW 17.4 H Lymph % (Auto) 4.7 L [place] % (Auto) 16.0 H Lymph # 0.7 L [place] # 2.4 H Seg Neutrophils % 78.6 H Seg Neuts % (Manual) Lymphocytes % (Manual) Monocytes % (Manual) Seg Neutrophils # 11.8 H Seg Neutrophils # Man Lymphocytes # (Manual) Monocytes # (Manual) Heparin Anti-Xa Level POC ABG pH POC ABG pCO2 POC ABG pO2 Sodium Potassium Chloride 95.4 L Carbon Dioxide BUN 55 H Creatinine 6.9 H Glucose 188 H POC Glucose 226 H Calcium ALT Alkaline Phosphatase 244 H Total Creatine Kinase CK-MB (CK-2) CK-MB (CK-2) Rel Index Troponin T C-Reactive Protein Albumin 2.8 L 03/21/17 03/21/17 03/22/17 17:17 23:28 04:49 WBC RBC Hgb Hct RDW Lymph % (Auto) [place] % (Auto) Lymph # [place] # Seg Neutrophils % Seg Neuts % (Manual) Lymphocytes % (Manual) Monocytes % (Manual) Seg Neutrophils # Seg Neutrophils # Man Lymphocytes # (Manual) Monocytes # (Manual) Heparin Anti-Xa Level POC ABG pH 7.323 L POC ABG pCO2 49.5 H POC ABG pO2 77 L Sodium Potassium Chloride Carbon Dioxide BUN Creatinine Glucose POC Glucose 192 H 199 H Calcium ALT Alkaline Phosphatase Total Creatine Kinase CK-MB (CK-2) CK-MB (CK-2) Rel Index Troponin T C-Reactive Protein Albumin 03/22/17 03/22/17 03/22/17 06:13 07:40 07:40 WBC 16.4 H RBC 3.29 L Hgb 9.1 L Hct 28.4 L RDW 17.3 H Lymph % (Auto) [place] % (Auto) Lymph # [place] # Seg Neutrophils % Seg Neuts % (Manual) 73.0 H Lymphocytes % (Manual) 8.0 L Monocytes % (Manual) 14.0 H Seg Neutrophils # Seg Neutrophils # Man 12.0 H Lymphocytes # (Manual) Monocytes # (Manual) 2.3 H Heparin Anti-Xa Level POC ABG pH POC ABG pCO2 POC ABG pO2 Sodium Potassium Chloride 94.8 L Carbon Dioxide 21 L BUN 84 H Creatinine 9.4 H Glucose 188 H POC Glucose 190 H Calcium ALT Alkaline Phosphatase Total Creatine Kinase CK-MB (CK-2) CK-MB (CK-2) Rel Index Troponin T C-Reactive Protein Albumin 03/22/17 03/22/17 03/22/17 11:43 17:38 23:56 WBC RBC Hgb Hct RDW Lymph % (Auto) [place] % (Auto) Lymph # [place] # Seg Neutrophils % Seg Neuts % (Manual) Lymphocytes % (Manual) Monocytes % (Manual) Seg Neutrophils # Seg Neutrophils # Man Lymphocytes # (Manual) Monocytes # (Manual) Heparin Anti-Xa Level POC ABG pH POC ABG pCO2 POC ABG pO2 Sodium Potassium Chloride Carbon Dioxide BUN Creatinine Glucose POC Glucose 149 H 168 H 229 H Calcium ALT Alkaline Phosphatase Total Creatine Kinase CK-MB (CK-2) CK-MB (CK-2) Rel Index Troponin T C-Reactive Protein Albumin 03/23/17 03/23/17 03/23/17 05:00 05:00 05:21 WBC 14.0 H RBC 3.09 L Hgb 8.5 L Hct 27.0 L RDW 17.8 H Lymph % (Auto) [place] % (Auto) Lymph # [place] # Seg Neutrophils % Seg Neuts % (Manual) Lymphocytes % (Manual) 11.0 L Monocytes % (Manual) 13.0 H Seg Neutrophils # Seg Neutrophils # Man 9.2 H Lymphocytes # (Manual) Monocytes # (Manual) 1.8 H Heparin Anti-Xa Level POC ABG pH POC ABG pCO2 POC ABG pO2 Sodium Potassium Chloride 94.5 L Carbon Dioxide BUN 76 H Creatinine 7.5 H Glucose 192 H POC Glucose 195 H Calcium ALT Alkaline Phosphatase Total Creatine Kinase CK-MB (CK-2) CK-MB (CK-2) Rel Index Troponin T C-Reactive Protein Albumin 03/23/17 03/23/17 03/23/17 12:15 17:47 23:27 WBC RBC Hgb Hct RDW Lymph % (Auto) [place] % (Auto) Lymph # [place] # Seg Neutrophils % Seg Neuts % (Manual) Lymphocytes % (Manual) Monocytes % (Manual) Seg Neutrophils # Seg Neutrophils # Man Lymphocytes # (Manual) Monocytes # (Manual) Heparin Anti-Xa Level POC ABG pH POC ABG pCO2 POC ABG pO2 Sodium Potassium Chloride Carbon Dioxide BUN Creatinine Glucose POC Glucose 162 H 137 H 221 H Calcium ALT Alkaline Phosphatase Total Creatine Kinase CK-MB (CK-2) CK-MB (CK-2) Rel Index Troponin T C-Reactive Protein Albumin 03/24/17 03/24/17 03/24/17 05:42 08:49 08:49 WBC RBC 2.99 L Hgb 8.5 L Hct 25.9 L RDW 18.1 H Lymph % (Auto) [place] % (Auto) Lymph # [place] # Seg Neutrophils % Seg Neuts % (Manual) 83.0 H Lymphocytes % (Manual) 6.0 L Monocytes % (Manual) Seg Neutrophils # Seg Neutrophils # Man 8.5 H Lymphocytes # (Manual) 0.6 L Monocytes # (Manual) Heparin Anti-Xa Level POC ABG pH POC ABG pCO2 POC ABG pO2 Sodium Potassium Chloride 95.4 L Carbon Dioxide BUN 108 H Creatinine 9.4 H Glucose 203 H POC Glucose 216 H Calcium ALT Alkaline Phosphatase Total Creatine Kinase CK-MB (CK-2) CK-MB (CK-2) Rel Index Troponin T C-Reactive Protein Albumin 03/24/17 03/24/17 03/24/17 11:21 17:32 23:37 WBC RBC Hgb Hct RDW Lymph % (Auto) [place] % (Auto) Lymph # [place] # Seg Neutrophils % Seg Neuts % (Manual) Lymphocytes % (Manual) Monocytes % (Manual) Seg Neutrophils # Seg Neutrophils # Man Lymphocytes # (Manual) Monocytes # (Manual) Heparin Anti-Xa Level POC ABG pH POC ABG pCO2 POC ABG pO2 Sodium Potassium Chloride Carbon Dioxide BUN Creatinine Glucose POC Glucose 185 H 138 H 218 H Calcium ALT Alkaline Phosphatase Total Creatine Kinase CK-MB (CK-2) CK-MB (CK-2) Rel Index Troponin T C-Reactive Protein Albumin 03/25/17 03/25/17 03/25/17 04:38 04:38 05:24 WBC RBC 3.27 L Hgb 9.3 L Hct 29.8 L RDW 18.4 H Lymph % (Auto) [place] % (Auto) Lymph # [place] # Seg Neutrophils % Seg Neuts % (Manual) 78.0 H Lymphocytes % (Manual) 10.0 L Monocytes % (Manual) 9.0 H Seg Neutrophils # Seg Neutrophils # Man Lymphocytes # (Manual) 0.8 L Monocytes # (Manual) Heparin Anti-Xa Level POC ABG pH POC ABG pCO2 POC ABG pO2 Sodium 136 L Potassium Chloride 92.5 L Carbon Dioxide 17 L BUN 124 H Creatinine 9.7 H Glucose 217 H POC Glucose 211 H Calcium ALT Alkaline Phosphatase Total Creatine Kinase CK-MB (CK-2) CK-MB (CK-2) Rel Index Troponin T C-Reactive Protein Albumin 03/25/17 03/25/17 03/25/17 11:53 17:15 20:12 WBC RBC Hgb Hct RDW Lymph % (Auto) [place] % (Auto) Lymph # [place] # Seg Neutrophils % Seg Neuts % (Manual) Lymphocytes % (Manual) Monocytes % (Manual) Seg Neutrophils # Seg Neutrophils # Man Lymphocytes # (Manual) Monocytes # (Manual) Heparin Anti-Xa Level POC ABG pH 7.469 H POC ABG pCO2 POC ABG pO2 69 L Sodium Potassium Chloride Carbon Dioxide BUN Creatinine Glucose POC Glucose 165 H 173 H Calcium ALT Alkaline Phosphatase Total Creatine Kinase CK-MB (CK-2) CK-MB (CK-2) Rel Index Troponin T C-Reactive Protein Albumin 03/25/17 03/26/17 03/26/17 23:32 05:59 06:03 WBC RBC Hgb Hct RDW Lymph % (Auto) [place] % (Auto) Lymph # [place] # Seg Neutrophils % Seg Neuts % (Manual) Lymphocytes % (Manual) Monocytes % (Manual) Seg Neutrophils # Seg Neutrophils # Man Lymphocytes # (Manual) Monocytes # (Manual) Heparin Anti-Xa Level POC ABG pH POC ABG pCO2 POC ABG pO2 Sodium 136 L Potassium Chloride 91.6 L Carbon Dioxide 20 L BUN 97 H Creatinine 8.0 H Glucose 239 H POC Glucose 231 H 214 H Calcium ALT Alkaline Phosphatase Total Creatine Kinase CK-MB (CK-2) CK-MB (CK-2) Rel Index Troponin T C-Reactive Protein Albumin 03/26/17 03/26/17 03/26/17 12:55 18:14 23:27 WBC RBC Hgb Hct RDW Lymph % (Auto) [place] % (Auto) Lymph # [place] # Seg Neutrophils % Seg Neuts % (Manual) Lymphocytes % (Manual) Monocytes % (Manual) Seg Neutrophils # Seg Neutrophils # Man Lymphocytes # (Manual) Monocytes # (Manual) Heparin Anti-Xa Level POC ABG pH POC ABG pCO2 POC ABG pO2 Sodium Potassium Chloride Carbon Dioxide BUN Creatinine Glucose POC Glucose 220 H 236 H 221 H Calcium ALT Alkaline Phosphatase Total Creatine Kinase CK-MB (CK-2) CK-MB (CK-2) Rel Index Troponin T C-Reactive Protein Albumin 03/27/17 03/27/17 03/27/17 00:58 04:00 04:00 WBC 12.9 H RBC 3.33 L Hgb 9.2 L Hct 29.0 L RDW 18.0 H Lymph % (Auto) [place] % (Auto) Lymph # [place] # Seg Neutrophils % Seg Neuts % (Manual) 78.0 H Lymphocytes % (Manual) 13.0 L Monocytes % (Manual) Seg Neutrophils # Seg Neutrophils # Man 10.1 H Lymphocytes # (Manual) Monocytes # (Manual) Heparin Anti-Xa Level POC ABG pH POC ABG pCO2 POC ABG pO2 Sodium Potassium Chloride 91.8 L Carbon Dioxide BUN 108 H Creatinine 9.0 H Glucose 237 H POC Glucose Calcium ALT Alkaline Phosphatase Total Creatine Kinase CK-MB (CK-2) CK-MB (CK-2) Rel Index Troponin T C-Reactive Protein 7.90 H Albumin 03/27/17 03/27/17 03/27/17 05:24 11:17 17:40 WBC RBC Hgb Hct RDW Lymph % (Auto) [place] % (Auto) Lymph # [place] # Seg Neutrophils % Seg Neuts % (Manual) Lymphocytes % (Manual) Monocytes % (Manual) Seg Neutrophils # Seg Neutrophils # Man Lymphocytes # (Manual) Monocytes # (Manual) Heparin Anti-Xa Level POC ABG pH POC ABG pCO2 POC ABG pO2 Sodium Potassium Chloride Carbon Dioxide BUN Creatinine Glucose POC Glucose 231 H 172 H 223 H Calcium ALT Alkaline Phosphatase Total Creatine Kinase CK-MB (CK-2) CK-MB (CK-2) Rel Index Troponin T C-Reactive Protein Albumin 03/27/17 03/28/17 03/28/17 23:49 05:40 11:51 WBC RBC Hgb Hct RDW Lymph % (Auto) [place] % (Auto) Lymph # [place] # Seg Neutrophils % Seg Neuts % (Manual) Lymphocytes % (Manual) Monocytes % (Manual) Seg Neutrophils # Seg Neutrophils # Man Lymphocytes # (Manual) Monocytes # (Manual) Heparin Anti-Xa Level POC ABG pH POC ABG pCO2 POC ABG pO2 Sodium Potassium Chloride Carbon Dioxide BUN Creatinine Glucose POC Glucose 184 H 212 H 187 H Calcium ALT Alkaline Phosphatase Total Creatine Kinase CK-MB (CK-2) CK-MB (CK-2) Rel Index Troponin T C-Reactive Protein Albumin 03/28/17 03/29/17 03/29/17 17:11 00:25 05:28 WBC RBC Hgb Hct RDW Lymph % (Auto) [place] % (Auto) Lymph # [place] # Seg Neutrophils % Seg Neuts % (Manual) Lymphocytes % (Manual) Monocytes % (Manual) Seg Neutrophils # Seg Neutrophils # Man Lymphocytes # (Manual) Monocytes # (Manual) Heparin Anti-Xa Level POC ABG pH POC ABG pCO2 POC ABG pO2 Sodium Potassium Chloride Carbon Dioxide BUN Creatinine Glucose POC Glucose 177 H 147 H 143 H Calcium ALT Alkaline Phosphatase Total Creatine Kinase CK-MB (CK-2) CK-MB (CK-2) Rel Index Troponin T C-Reactive Protein Albumin 03/29/17 03/30/17 03/30/17 17:46 06:06 10:42 WBC RBC Hgb Hct RDW Lymph % (Auto) [place] % (Auto) Lymph # [place] # Seg Neutrophils % Seg Neuts % (Manual) Lymphocytes % (Manual) Monocytes % (Manual) Seg Neutrophils # Seg Neutrophils # Man Lymphocytes # (Manual) Monocytes # (Manual) Heparin Anti-Xa Level POC ABG pH POC ABG pCO2 POC ABG pO2 Sodium Potassium Chloride Carbon Dioxide BUN Creatinine Glucose POC Glucose 184 H 294 H 299 H Calcium ALT Alkaline Phosphatase Total Creatine Kinase CK-MB (CK-2) CK-MB (CK-2) Rel Index Troponin T C-Reactive Protein Albumin 03/30/17 03/30/17 03/30/17 13:21 16:38 19:48 WBC RBC Hgb Hct RDW Lymph % (Auto) [place] % (Auto) Lymph # [place] # Seg Neutrophils % Seg Neuts % (Manual) Lymphocytes % (Manual) Monocytes % (Manual) Seg Neutrophils # Seg Neutrophils # Man Lymphocytes # (Manual) Monocytes # (Manual) Heparin Anti-Xa Level POC ABG pH 7.466 H POC ABG pCO2 POC ABG pO2 Sodium Potassium Chloride Carbon Dioxide BUN Creatinine Glucose POC Glucose 230 H 277 H Calcium ALT Alkaline Phosphatase Total Creatine Kinase CK-MB (CK-2) CK-MB (CK-2) Rel Index Troponin T C-Reactive Protein Albumin 03/30/17 03/31/17 03/31/17 23:28 05:49 17:13 WBC RBC Hgb Hct RDW Lymph % (Auto) [place] % (Auto) Lymph # [place] # Seg Neutrophils % Seg Neuts % (Manual) Lymphocytes % (Manual) Monocytes % (Manual) Seg Neutrophils # Seg Neutrophils # Man Lymphocytes # (Manual) Monocytes # (Manual) Heparin Anti-Xa Level POC ABG pH POC ABG pCO2 POC ABG pO2 Sodium Potassium Chloride Carbon Dioxide BUN Creatinine Glucose POC Glucose 203 H 261 H 227 H Calcium ALT Alkaline Phosphatase Total Creatine Kinase CK-MB (CK-2) CK-MB (CK-2) Rel Index Troponin T C-Reactive Protein Albumin 03/31/17 04/01/17 04/01/17 19:32 00:39 05:51 WBC RBC Hgb Hct RDW Lymph % (Auto) [place] % (Auto) Lymph # [place] # Seg Neutrophils % Seg Neuts % (Manual) Lymphocytes % (Manual) Monocytes % (Manual) Seg Neutrophils # Seg Neutrophils # Man Lymphocytes # (Manual) Monocytes # (Manual) Heparin Anti-Xa Level POC ABG pH POC ABG pCO2 POC ABG pO2 Sodium Potassium Chloride Carbon Dioxide BUN Creatinine Glucose POC Glucose 238 H 147 H 185 H Calcium ALT Alkaline Phosphatase Total Creatine Kinase CK-MB (CK-2) CK-MB (CK-2) Rel Index Troponin T C-Reactive Protein Albumin 04/01/17 04/01/17 04/01/17 12:00 12:17 23:23 WBC RBC Hgb Hct RDW Lymph % (Auto) [place] % (Auto) Lymph # [place] # Seg Neutrophils % Seg Neuts % (Manual) Lymphocytes % (Manual) Monocytes % (Manual) Seg Neutrophils # Seg Neutrophils # Man Lymphocytes # (Manual) Monocytes # (Manual) Heparin Anti-Xa Level POC ABG pH POC ABG pCO2 POC ABG pO2 Sodium 136 L Potassium 5.4 H Chloride 88.3 L Carbon Dioxide 20 L BUN 110 H Creatinine 10.8 H Glucose 209 H POC Glucose 261 H 302 H Calcium ALT Alkaline Phosphatase Total Creatine Kinase CK-MB (CK-2) CK-MB (CK-2) Rel Index Troponin T C-Reactive Protein Albumin 04/02/17 04/02/17 04/02/17 05:16 06:40 06:40 WBC RBC Hgb Hct RDW 19.6 H Lymph % (Auto) 8.5 L [place] % (Auto) 12.8 H Lymph # 0.8 L [place] # 1.2 H Seg Neutrophils % 76.4 H Seg Neuts % (Manual) Lymphocytes % (Manual) Monocytes % (Manual) Seg Neutrophils # Seg Neutrophils # Man Lymphocytes # (Manual) Monocytes # (Manual) Heparin Anti-Xa Level POC ABG pH POC ABG pCO2 POC ABG pO2 Sodium Potassium 5.3 H Chloride 91.0 L Carbon Dioxide BUN 50 H Creatinine 6.0 H Glucose 183 H POC Glucose 213 H Calcium 10.8 H ALT Alkaline Phosphatase Total Creatine Kinase CK-MB (CK-2) CK-MB (CK-2) Rel Index Troponin T C-Reactive Protein Albumin Allied health notes reviewed: RT
[2017-04-03] MEDS: DUONEB *Not for PRN Use IH SCH ×4 (02:24→19:54)
[2017-04-03] MEDS: LOPRESSOR PO SCH ×4 (07:00→23:15)
[2017-04-03] MEDS: HEPARIN SUB-Q SCH ×3 (07:02→23:16)
[2017-04-03 07:30] LABS: Eosinophils % (Auto) 2.7 % (0.0-4.3); Hematocrit 33.4 % (30.3-42.9); Hemoglobin 10.6 gm/dl (10.1-14.3); Mean Corpuscular HGB Conc 32 % (30-34); Mean Corpuscular Hemoglobin 29 pg (28-32); Mean Corpuscular Volume 89 fl (79-97); Platelet Count 220 K/mm3 (140-440); Red Blood Count 3.74 M/mm3 (3.65-5.03); White Blood Count 7.8 K/mm3 (4.5-11.0)
[2017-04-03 07:41] LABS: BUN/Creatinine Ratio 9.06; Chloride 88.3 mmol/L (98-107)
[2017-04-03 07:48] LABS: Potassium 6.2 mmol/L (3.6-5.0); Red Cell Distribution Width 20.3 % (13.2-15.2)
--- NOTE | 2017-04-03 08:24 | Progress Note ---
Assessment and Plan Assessment: * End stage renal disease on HD (TTS outpatient schedule) * STEMI s/p LHC with PCI * s/p cardiac/Vfib arrest * Cardiogenic shock * Anemia secondary to ESRD * Secondary hyperparathyroidism * Hyperkalemia Plan: * Hemodialysis MWF schedule for now; change to TTS schedule when nearing discharge * UF as tolerated * Optimization of cardiac function * Cardiology recommendations reviewed - note plan for EP eval/life vest * Epogen for goal Hb 10-12 * Mechanical soft/renal diet Subjective Date of service: 04/03/17 Principal diagnosis: Acute Hypoxemic Resp Failure; STEMI Interval history: Patient has no complaints Objective - Vital Signs Vital signs: Vital Signs - 12hr 04/02/17 04/02/17 04/02/17 20:55 21:06 21:07 Temperature Pulse Rate Pulse Rate [ 78 83 Anterior Bilateral Throughout] Pulse Rate [ Right Radial] Respiratory Rate Respiratory 20 20 Rate [Anterior Bilateral Throughout] Blood Pressure Blood Pressure [Right Arm] O2 Sat by Pulse 98 Oximetry 04/02/17 04/02/17 04/03/17 22:00 22:40 00:00 Temperature 98.3 F Pulse Rate 76 72 Pulse Rate [ Anterior Bilateral Throughout] Pulse Rate [ 72 Right Radial] Respiratory 21 Rate Respiratory Rate [Anterior Bilateral Throughout] Blood Pressure 106/58 Blood Pressure 124/59 [Right Arm] O2 Sat by Pulse 100 Oximetry 04/03/17 04/03/17 04/03/17 00:18 02:20 02:31 Temperature Pulse Rate 91 H Pulse Rate [ 69 70 Anterior Bilateral Throughout] Pulse Rate [ Right Radial] Respiratory 22 Rate Respiratory 16 20 Rate [Anterior Bilateral Throughout] Blood Pressure Blood Pressure [Right Arm] O2 Sat by Pulse 96 Oximetry 04/03/17 04/03/17 04:00 07:00 Temperature 98.0 F Pulse Rate 71 70 Pulse Rate [ Anterior Bilateral Throughout] Pulse Rate [ 70 Right Radial] Respiratory 20 Rate Respiratory Rate [Anterior Bilateral Throughout] Blood Pressure 118/57 Blood Pressure 118/57 [Right Arm] O2 Sat by Pulse 98 Oximetry - General Appearance General appearance: well-developed EENT: ATNC Respiratory: Present: Clear to Ascultation Cardiology: regular, S1S2 Gastrointestinal: no tenderness, no distended, obese Integumentary: no rash Musculoskeletal: other (no edema) Psychiatric: cooperative - Lab 04/03/17 07:03 04/03/17 07:03 Most recent lab results Calcium 10.0 mg/dL (8.4-10.2) 04/03/17 07:03
--- NOTE | 2017-04-03 10:07 | Progress Note ---
Assessment and Plan Assessment and plan: 66-year-old female presents to the emergency department complaining of chest pain after dialysis. While in triage, the patient went unresponsive, and without a pulse, No palpable pulses were identified. Patient was placed on a cardiac cath tech and ventricular fibrillation was noted. Patient was defibrillated a single time with 200 J. She received CPR protocol, was intubated and had ROSC, and she was then taken to the ICU. Postarrest ECG was consistent with anterior STEMI. Code STEMI was activated, she was taken to cardiac cath tech and received angiogram ; stent x 2 in LAD noted to be patent, but had distal LAD spasm Cardiovascular cardiac arrest; Vfib, STEMI, ACS, Distal LAD spasm, cardiogenic shock Cardiology input appreciated, status post cath with patent stents she was rx with amio drip, received heparin ggt x 24 hours, received Dopamine drip for Cardiogenic shock and hypotension,now improved; currently on Lopressor for rate control and now hypertensive -Hypertension. continue antihypertensive medications -Hyperlipidemia- Continue statin therapy -awaiting EP eval for ICD. Pulmonary Acute hypoxic respiratory failure, mech vent >96 hours Status post extubation 03/24/17, continue oxygen supplementation and noninvasive positive pressure ventilation as needed GI Nausea/Vomiting- Start on zofran, now resolved Dysphagia has now resolved, continue diet Toxic metabolic encephalopathy EEG was reviewed, seizure is unlikely. encephalopathy most likely due to anoxic brain injury, acute illness, cardiogenic shock, cardiac arrest and IV sedation now improved, Neurology input appreciated, MRI cw anoxic injury CVA Left facial droop/LUE weakness * MR brain shows acute CVA , MRA head is unremarkable * Carotid duplex shows no significant stenosis * continue statin and plavix ID Sepsis syndrome; ID consult appreciated, Continue current empiric therapy. -WBC count is slowly downtrending, has completed empiric abx course RENAL/FEN End stage renal disease on hemodialysis. Nephrology following. Continue hemodialysis Hyperkalemia-corrected with dialysis Complete immobility due to frailty PT consult, patient will need SNIF placement Critical illness myopathy Pain medications as needed Severe malnutrition/Dysphagia town manager and speech therapy consult appreciated s/p MBS, report reviewed, there was no aspiration, patient has been transitioned to mechanical soft diet and thin liquids. Diabetes mellitus type 2. Accu-Cheks and sliding scale insulin. Morbid obesity- will mental health counselor when clinically improved about lifestyle modification Anemia of CKD. Follow H&H. Transfuse as necessary. DVT heparin subq, Discussed plan with the patient and her daughter Plan for SNIF placement, case management was updated on the plan History Interval history: She is improved, muscle pains are improving, otherwise she denies dysphagia or sob Hospitalist Physical - Physical exam Narrative exam: General: appears well HEENT: MMM, EOMI cardiac: S1-S2 heard lungs: clear to auscultation, abdomen: soft, nontender, nondistended bowel sounds positive extremities: no edema clubbing or cyanosis muscle soreness to palpation all over her body Skin: no rash or lesion Neuro: AAOx3, Left facial droop, LUE focal weakness, moves all extremities, obeys commands, generalized weakness Psych: calm, cooperative - Constitutional Vitals: Temp Pulse Resp BP Pulse Ox 98.5 F 72 20 96/55 97 04/03/17 08:00 04/03/17 08:00 04/03/17 08:00 04/03/17 08:00 04/03/17 08:00 General appearance: Present: no acute distress, obese Results - Labs CBC & Chem 7: 04/03/17 07:03 04/03/17 07:03 Labs: Laboratory Last Values WBC 7.8 K/mm3 (4.5-11.0) 04/03/17 07:03 RBC 3.74 M/mm3 (3.65-5.03) 04/03/17 07:03 Hgb 10.6 gm/dl (10.1-14.3) 04/03/17 07:03 Hct 33.4 % (30.3-42.9) 04/03/17 07:03 MCV 89 fl (79-97) 04/03/17 07:03 MCH 29 pg (28-32) 04/03/17 07:03 MCHC 32 % (30-34) 04/03/17 07:03 RDW 20.3 % (13.2-15.2) H 04/03/17 07:03 Plt Count 220 K/mm3 (140-440) 04/03/17 07:03 Lymph % (Auto) 13.2 % (13.4-35.0) L 04/03/17 07:03 [place] % (Auto) 14.5 % (0.0-7.3) H 04/03/17 07:03 Eos % (Auto) 2.7 % (0.0-4.3) 04/03/17 07:03 Baso % (Auto) 1.0 % (0.0-1.8) 04/03/17 07:03 Lymph # 1.0 K/mm3 (1.2-5.4) L 04/03/17 07:03 [place] # 1.1 K/mm3 (0.0-0.8) H 04/03/17 07:03 Eos # 0.2 K/mm3 (0.0-0.4) 04/03/17 07:03 Baso # 0.1 K/mm3 (0.0-0.1) 04/03/17 07:03 Add Manual Diff Complete 03/27/17 04:00 Total Counted 100 03/27/17 04:00 Seg Neutrophils % 68.6 % (40.0-70.0) 04/03/17 07:03 Seg Neuts % (Manual) 78.0 % (40.0-70.0) H 03/27/17 04:00 Band Neutrophils % 1.0 % 03/27/17 04:00 Lymphocytes % (Manual) 13.0 % (13.4-35.0) L 03/27/17 04:00 Reactive Lymphs % (Man) 0 % 03/27/17 04:00 Monocytes % (Manual) 6.0 % (0.0-7.3) 03/27/17 04:00 Eosinophils % (Manual) 2.0 % (0.0-4.3) 03/27/17 04:00 Basophils % (Manual) 0 % (0.0-1.8) 03/27/17 04:00 Metamyelocytes % 0 % 03/27/17 04:00 Myelocytes % 0 % 03/27/17 04:00 Promyelocytes % 0 % 03/27/17 04:00 Blast Cells % 0 % 03/27/17 04:00 Nucleated RBC % Not Reportable 03/27/17 04:00 Seg Neutrophils # 5.3 K/mm3 (1.8-7.7) 04/03/17 07:03 Seg Neutrophils # Man 10.1 K/mm3 (1.8-7.7) H 03/27/17 04:00 Band Neutrophils # 0.1 K/mm3 03/27/17 04:00 Lymphocytes # (Manual) 1.7 K/mm3 (1.2-5.4) 03/27/17 04:00 Abs React Lymphs (Man) 0.0 K/mm3 03/27/17 04:00 Monocytes # (Manual) 0.8 K/mm3 (0.0-0.8) 03/27/17 04:00 Eosinophils # (Manual) 0.3 K/mm3 (0.0-0.4) 03/27/17 04:00 Basophils # (Manual) 0.0 K/mm3 (0.0-0.1) 03/27/17 04:00 Metamyelocytes # 0.0 K/mm3 03/27/17 04:00 Myelocytes # 0.0 K/mm3 03/27/17 04:00 Promyelocytes # 0.0 K/mm3 03/27/17 04:00 Blast Cells # 0.0 K/mm3 03/27/17 04:00 WBC Morphology Not Reportable 03/27/17 04:00 Hypersegmented Neuts Not Reportable 03/27/17 04:00 Hyposegmented Neuts Not Reportable 03/27/17 04:00 Hypogranular Neuts Not Reportable 03/27/17 04:00 Smudge Cells Not Reportable 03/27/17 04:00 Toxic Granulation Not Reportable 03/27/17 04:00 Toxic Vacuolation Not Reportable 03/27/17 04:00 Dohle Bodies Not Reportable 03/27/17 04:00 Pelger-Huet Anomaly Not Reportable 03/27/17 04:00 Tunde Rods Not Reportable 03/27/17 04:00 Platelet Estimate Consistent w auto 03/27/17 04:00 Clumped Platelets Not Reportable 03/27/17 04:00 Plt Clumps, EDTA Not Reportable 03/27/17 04:00 Large Platelets Not Reportable 03/27/17 04:00 Giant Platelets Not Reportable 03/27/17 04:00 Platelet Satelliting Not Reportable 03/27/17 04:00 Plt Morphology Comment Not Reportable 03/27/17 04:00 RBC Morphology Not Reportable 03/27/17 04:00 Dimorphic RBCs Not Reportable 03/27/17 04:00 Polychromasia Few 03/27/17 04:00 Hypochromasia Not Reportable 03/27/17 04:00 Poikilocytosis Not Reportable 03/27/17 04:00 Anisocytosis Not Reportable 03/27/17 04:00 Microcytosis Not Reportable 03/27/17 04:00 Macrocytosis Not Reportable 03/27/17 04:00 Spherocytes Not Reportable 03/27/17 04:00 Pappenheimer Bodies Not Reportable 03/27/17 04:00 Sickle Cells Not Reportable 03/27/17 04:00 Target Cells Not Reportable 03/27/17 04:00 Tear Drop Cells Not Reportable 03/27/17 04:00 Ovalocytes Not Reportable 03/27/17 04:00 Helmet Cells Not Reportable 03/27/17 04:00 [place] Bodies Not Reportable 03/27/17 04:00 [place] Rings Not Reportable 03/27/17 04:00 [place] Cells Not Reportable 03/27/17 04:00 Bite Cells Not Reportable 03/27/17 04:00 Crenated Cell Not Reportable 03/27/17 04:00 Elliptocytes Not Reportable 03/27/17 04:00 Acanthocytes (Spur) Not Reportable 03/27/17 04:00 Rouleaux Not Reportable 03/27/17 04:00 Hemoglobin C Crystals Not Reportable 03/27/17 04:00 Schistocytes Not Reportable 03/27/17 04:00 Malaria parasites Not Reportable 03/27/17 04:00 [place] Bodies Not Reportable 03/27/17 04:00 Hem Pathologist Commnt No 03/27/17 04:00 PT 13.4 Sec. (12.2-14.9) 03/16/17 11:07 INR 1.03 (0.87-1.13) 03/16/17 11:07 APTT 24.1 Sec. (24.2-36.6) L 03/16/17 11:07 Activated Clotting Time 125 (74-137) 03/17/17 08:23 Heparin Anti-Xa Level < 0.10 U.I./ml (0.3-0.7) L 03/17/17 21:12 POC ABG pH 7.466 (7.35-7.45) H 03/30/17 13:21 POC ABG pCO2 37.9 (35-45) 03/30/17 13:21 POC ABG pO2 100 (80-105) 03/30/17 13:21 POC ABG HCO3 27.4 03/30/17 13:21 POC ABG Total CO2 28 03/30/17 13:21 POC ABG O2 Sat 98 03/30/17 13:21 POC ABG Base Excess 4 03/30/17 13:21 FiO2 2 % 03/30/17 13:21 Sodium 133 mmol/L (137-145) L 04/03/17 07:03 Potassium 6.2 mmol/L (3.6-5.0) H* 04/03/17 07:03 Chloride 88.3 mmol/L (98-107) L 04/03/17 07:03 Carbon Dioxide 24 mmol/L (22-30) 04/03/17 07:03 Anion Gap 27 mmol/L 04/03/17 07:03 BUN 68 mg/dL (7-17) H 04/03/17 07:03 Creatinine 7.5 mg/dL (0.7-1.2) H 04/03/17 07:03 Estimated GFR 7 ml/min 04/03/17 07:03 BUN/Creatinine Ratio 9.06 % 04/03/17 07:03 Glucose 138 mg/dL (65-100) H 04/03/17 07:03 POC Glucose 154 (70-105) H 04/03/17 06:09 Lactic Acid 1.50 mmol/L (0.7-2.0) 03/27/17 00:58 Calcium 10.0 mg/dL (8.4-10.2) 04/03/17 07:03 Total Bilirubin 0.50 mg/dL (0.1-1.2) 03/21/17 07:45 AST 23 units/L (5-40) 03/21/17 07:45 ALT 40 units/L (7-56) 03/21/17 07:45 Alkaline Phosphatase 244 units/L (35-129) H 03/21/17 07:45 Ammonia 38.0 umol/L (25-60) 03/18/17 19:02 Total Creatine Kinase 282 units/L (30-135) H 03/16/17 16:36 CK-MB (CK-2) 24.2 ng/mL (0.0-4.0) H 03/16/17 16:36 CK-MB (CK-2) Rel Index 8.5 (0-4) H 03/16/17 16:36 Troponin T 0.656 ng/mL (0.00-0.029) H* D 03/16/17 16:36 C-Reactive Protein 7.90 mg/dL (0.00-1.30) H 03/27/17 00:58 Total Protein 7.3 g/dL (6.3-8.2) 03/21/17 07:45 Albumin 2.8 g/dL (3.9-5) L 03/21/17 07:45 Albumin/Globulin Ratio 0.6 % 03/21/17 07:45 Triglycerides 134 mg/dL (2-149) 03/16/17 11:07 Cholesterol 228 mg/dL (50-199) H 03/16/17 11:07 LDL Cholesterol Direct 165 mg/dL (50-130) H 03/16/17 11:07 HDL Cholesterol 37 mg/dL (40-59) L 03/16/17 11:07 Cholesterol/HDL Ratio 6.16 % 03/16/17 11:07 TSH 0.746 mlU/mL (0.270-4.200) 03/18/17 19:02 Random Vancomycin 20.9 ug/mL (0-40.0) 03/22/17 07:40 Hepatitis A IgM Ab Non-reactive (NonReactive) 03/19/17 04:31 Hep Bs Antigen Non-reactive (Negative) 03/19/17 04:31 Hep B Core IgM Ab Non-reactive (NonReactive) 03/19/17 04:31 Hepatitis C Antibody Non-reactive (NonReactive) 03/19/17 04:31 Blood Type A POSITIVE 03/16/17 16:36 Antibody Screen TNR 03/16/17 16:36 CLAIR Antibody Screen Negative 03/16/17 16:36
--- NOTE | 2017-04-03 10:11 | Progress Note ---
Assessment and Plan S/p V fib arrest (cardiac arrest)/STEMI EP recommends Lifevest placement vs. ICD implantation-->patient/family agreeable Coronary artery disease s/p PCI [facility] 03/16: patent LAD stents, possible distal LAD spasm pt. is allergic to ASA, continue Plavix, statin, metoprolol Post op afib-->currently SR Hypertension stable Hyperlipidemia Pulmonary HTN ESRD on HD Respiratory failure s/p extubation Continue current management. Will discuss ICD implantation with EP. If unable to be placed prior to discharge to rehab, will arrange for Lifevest placement. The patient has been seen in conjunction with Dr. Mancera who agrees with the assessment and plan of care. Subjective Date of service: 04/03/17 Principal diagnosis: Acute Hypoxemic Resp Failure; STEMI Interval history: The patient is resting in bed. No new complaints. Sinus rhythm on the monitor. Daughter at bedside. Objective Last Vital Signs Temp 97.8 F 04/03/17 13:15 Pulse 75 04/03/17 15:56 Resp 21 04/03/17 15:56 BP 92/46 04/03/17 14:15 Pulse Ox 100 04/03/17 15:53 - Physical Examination General: Appears Well, No Apparent Distress HEENT: Positive: Normocephaly, Mucus Membranes Moist Neck: Positive: neck supple, trachea midline Cardiac: Positive: Reg Rate and Rhythm, S1/S2 Lungs: Positive: clear to auscultation Neuro: Positive: Grossly Intact Abdomen: Positive: Soft, Active Bowel Sounds Skin: Negative: Clear, Rash Musculoskeletal: No Fluid Collection, No Pain, Normal Range of Motion, other ( reproducible anterior chest wall tenderness) Extremities: Present: upper extr. pulses, lower extr. pulses. Absent: edema - Labs and Meds CBC 04/03/17 Range/Units 07:03 WBC 7.8 (4.5-11.0) K/mm3 RBC 3.74 (3.65-5.03) M/mm3 Hgb 10.6 (10.1-14.3) gm/dl Hct 33.4 (30.3-42.9) % Plt Count 220 (140-440) K/mm3 Lymph # 1.0 L (1.2-5.4) K/mm3 [place] # 1.1 H (0.0-0.8) K/mm3 Eos # 0.2 (0.0-0.4) K/mm3 Baso # 0.1 (0.0-0.1) K/mm3 Comprehensive Metabolic Panel 04/03/17 Range/Units 07:03 Sodium 133 L (137-145) mmol/L Potassium 6.2 H* (3.6-5.0) mmol/L Chloride 88.3 L (98-107) mmol/L Carbon Dioxide 24 (22-30) mmol/L BUN 68 H (7-17) mg/dL Creatinine 7.5 H (0.7-1.2) mg/dL Glucose 138 H (65-100) mg/dL Calcium 10.0 (8.4-10.2) mg/dL - Imaging and Cardiology EKG: report reviewed, image reviewed Echo: report reviewed (echo reviewed - EF 60 - 65%, mild MR< mild TR, moderate , mild LVH, mild to moderate pulmonary HTN, RVSP 47mmHg. ) Cardiac cath: report reviewed (patent lad stents and distal lad spasm resolved) - Telemetry EKG Rhythm: Sinus Rhythm - EKG Sinus rhythms and dysrhythmias: sinus rhythm Myocardial infarction: inferior NJ (acute or rec, anterior [place] (acute or rec - Allied health notes Allied health notes reviewed: RT
[2017-04-03] MEDS ORDERED: NACL 0.9 (PRIMING MACHINE ONLY DIALYSIS) MC ONE (11:07)
[2017-04-03] MEDS: LEVEMIR SUB-Q SCH (11:47)
[2017-04-03] MEDS: PEPCID PO SCH (11:48)
[2017-04-03] MEDS: PLAVIX PO SCH (11:48)
[2017-04-03] MEDS: PROCRIT IV PRN (13:25)
--- NOTE | 2017-04-03 18:48 | Progress Note ---
Assessment and Plan Patient alert, awake and resting on nasal canula 2 litres O2. O2 saturation 98% .No complaint of chest pain or shortness of breath. - Patient Problems (1) Acute hypoxemic respiratory failure Current Visit: Yes Status: Resolved Plan to address problem: Patient extubated . Presently on nasal canula 2 litres. O2 saturation 100%. BIPAP stand by Recommend to place her on BIPAP during night time and prn for shortness of breath during day time. Albuterol/atrovent aerosol treatments q 6 hours. Continue S/C Heparin. Continue Famotidine. (2) Hypotension Current Visit: Yes Status: Acute Qualifiers: Hypotension type: H Trimester: T Plan to address problem: Improved. Blood pressure 99/51..Patient asymptomatic. (3) ESRD on dialysis Current Visit: Yes Status: Acute Plan to address problem: Management as per nephrology. (4) Pneumomediastinum Current Visit: Yes Status: Acute Plan to address problem: Repeat chest xray did not report pneumomediastinum or Pneumothorax. (5) Obesity (BMI 30-39.9) Current Visit: Yes Status: Chronic Plan to address problem: Recommend to loose weight. Weight reduction diet. (6) Sleep apnea, obstructive Current Visit: Yes Status: Acute Plan to address problem: Patient says has history of sleep apnea. Uses CPAP at home. Place her on BIPAP during night time. Subjective Date of service: 04/03/17 Principal diagnosis: Acute Hypoxemic Resp Failure; STEMI Interval history: Patient alert, awake and resting on nasal canula 2 litres O2. O2 saturation 98% .No complaint of chest pain or shortness of breath. Objective Vital Signs - 12hr 04/03/17 04/03/17 04/03/17 07:00 08:00 09:45 Temperature 98.5 F 98.4 F Pulse Rate 70 71 Pulse Rate [ Anterior Bilateral Throughout] Pulse Rate [ Apical] Pulse Rate [ Left Radial] Pulse Rate [ 72 Right Radial] Respiratory 20 16 Rate Respiratory Rate [Anterior Bilateral Throughout] Blood Pressure 118/57 98/65 Blood Pressure 96/55 [Left Arm] Blood Pressure 96/55 [Right Arm] O2 Sat by Pulse 97 Oximetry 04/03/17 04/03/17 04/03/17 10:00 10:05 10:15 Temperature Pulse Rate 71 69 69 Pulse Rate [ Anterior Bilateral Throughout] Pulse Rate [ Apical] Pulse Rate [ Left Radial] Pulse Rate [ Right Radial] Respiratory Rate Respiratory Rate [Anterior Bilateral Throughout] Blood Pressure 73/41 82/42 90/46 Blood Pressure [Left Arm] Blood Pressure [Right Arm] O2 Sat by Pulse Oximetry 04/03/17 04/03/17 04/03/17 11:00 11:10 11:20 Temperature Pulse Rate 67 64 65 Pulse Rate [ Anterior Bilateral Throughout] Pulse Rate [ Apical] Pulse Rate [ Left Radial] Pulse Rate [ Right Radial] Respiratory Rate Respiratory Rate [Anterior Bilateral Throughout] Blood Pressure 88/52 97/53 92/51 Blood Pressure [Left Arm] Blood Pressure [Right Arm] O2 Sat by Pulse Oximetry 04/03/17 04/03/17 04/03/17 11:30 11:40 11:55 Temperature Pulse Rate 64 64 66 Pulse Rate [ Anterior Bilateral Throughout] Pulse Rate [ Apical] Pulse Rate [ Left Radial] Pulse Rate [ Right Radial] Respiratory Rate Respiratory Rate [Anterior Bilateral Throughout] Blood Pressure 97/48 80/49 82/46 Blood Pressure [Left Arm] Blood Pressure [Right Arm] O2 Sat by Pulse Oximetry 04/03/17 04/03/17 04/03/17 12:05 12:20 12:30 Temperature Pulse Rate 66 66 65 Pulse Rate [ Anterior Bilateral Throughout] Pulse Rate [ Apical] Pulse Rate [ Left Radial] Pulse Rate [ Right Radial] Respiratory Rate Respiratory Rate [Anterior Bilateral Throughout] Blood Pressure 88/43 90/45 81/42 Blood Pressure [Left Arm] Blood Pressure [Right Arm] O2 Sat by Pulse Oximetry 04/03/17 04/03/17 04/03/17 12:45 13:00 13:15 Temperature 97.8 F Pulse Rate 69 67 66 Pulse Rate [ Anterior Bilateral Throughout] Pulse Rate [ Apical] Pulse Rate [ Left Radial] Pulse Rate [ Right Radial] Respiratory 16 Rate Respiratory Rate [Anterior Bilateral Throughout] Blood Pressure 83/36 82/42 92/46 Blood Pressure [Left Arm] Blood Pressure [Right Arm] O2 Sat by Pulse Oximetry 04/03/17 04/03/17 04/03/17 14:15 15:44 15:53 Temperature Pulse Rate 66 Pulse Rate [ 74 Anterior Bilateral Throughout] Pulse Rate [ Apical] Pulse Rate [ Left Radial] Pulse Rate [ Right Radial] Respiratory Rate Respiratory 20 Rate [Anterior Bilateral Throughout] Blood Pressure 92/46 Blood Pressure [Left Arm] Blood Pressure [Right Arm] O2 Sat by Pulse 100 Oximetry 04/03/17 04/03/17 15:56 16:00 Temperature 98.4 F Pulse Rate Pulse Rate [ 75 Anterior Bilateral Throughout] Pulse Rate [ 79 Apical] Pulse Rate [ 79 Left Radial] Pulse Rate [ 79 Right Radial] Respiratory 20 Rate Respiratory 21 Rate [Anterior Bilateral Throughout] Blood Pressure Blood Pressure 99/51 [Left Arm] Blood Pressure 99/51 [Right Arm] O2 Sat by Pulse 98 Oximetry Constitutional: no acute distress, alert, other Eyes: non-icteric ENT: oropharynx moist Neck: supple, no lymphadenopathy, no JVD Effort: mildly labored Ascultation: Bilateral: diminished breath sounds, rales (scant in bases) Cardiovascular: regular rate and rhythm Gastrointestinal: normoactive bowel sounds, soft, non-tender, non-distended Integumentary: normal, other (Femoral CVC) Extremities: no cyanosis, no edema, pulses normal, no ischemia or petechiae Neurologic: normal mental status, non-focal exam (Moves all extremities, tracks my voice, attempts to vocalize in response to questions), pupils equal and round , motor strength normal and, other (very weak) Psychiatric: mood appropriate, affect normal, depressed CBC and BMP: 04/03/17 07:03 04/03/17 07:03 ABG, PT/INR, D-dimer: ABG POC ABG pH 7.466 (7.35-7.45) H 03/30/17 13:21 POC ABG pCO2 37.9 (35-45) 03/30/17 13:21 POC ABG pO2 100 (80-105) 03/30/17 13:21 POC ABG HCO3 27.4 03/30/17 13:21 POC ABG Total CO2 28 03/30/17 13:21 POC ABG O2 Sat 98 03/30/17 13:21 PT/INR, D-dimer PT 13.4 Sec. (12.2-14.9) 03/16/17 11:07 INR 1.03 (0.87-1.13) 03/16/17 11:07 Abnormal lab findings: Abnormal Labs 03/16/17 03/16/17 03/17/17 16:36 18:00 03:42 WBC 20.6 H RBC Hgb Hct RDW 17.3 H Lymph % (Auto) [place] % (Auto) Lymph # [place] # Seg Neutrophils % Seg Neuts % (Manual) 84.0 H Lymphocytes % (Manual) 3.0 L Monocytes % (Manual) 11.0 H Seg Neutrophils # Seg Neutrophils # Man 17.3 H Lymphocytes # (Manual) 0.6 L Monocytes # (Manual) 2.3 H Heparin Anti-Xa Level POC ABG pH 7.336 L POC ABG pCO2 47.9 H POC ABG pO2 189 H Sodium Potassium Chloride Carbon Dioxide BUN Creatinine Glucose POC Glucose Calcium ALT Alkaline Phosphatase Total Creatine Kinase 282 H CK-MB (CK-2) 24.2 H CK-MB (CK-2) Rel Index 8.5 H Troponin T 0.656 H* D C-Reactive Protein Albumin 03/17/17 03/17/17 03/17/17 03:42 04:21 17:15 WBC RBC Hgb Hct RDW Lymph % (Auto) [place] % (Auto) Lymph # [place] # Seg Neutrophils % Seg Neuts % (Manual) Lymphocytes % (Manual) Monocytes % (Manual) Seg Neutrophils # Seg Neutrophils # Man Lymphocytes # (Manual) Monocytes # (Manual) Heparin Anti-Xa Level 0.10 L POC ABG pH POC ABG pCO2 POC ABG pO2 Sodium 131 L Potassium 5.3 H D Chloride 89.5 L Carbon Dioxide 21 L BUN 39 H Creatinine 7.0 H Glucose 151 H POC Glucose Calcium ALT Alkaline Phosphatase Total Creatine Kinase CK-MB (CK-2) CK-MB (CK-2) Rel Index Troponin T C-Reactive Protein 33.90 H Albumin 03/17/17 03/18/17 03/18/17 21:12 03:33 03:33 WBC 17.6 H RBC 3.59 L Hgb Hct RDW 16.9 H Lymph % (Auto) 4.2 L [place] % (Auto) 11.8 H Lymph # 0.7 L [place] # 2.1 H Seg Neutrophils % 83.3 H Seg Neuts % (Manual) Lymphocytes % (Manual) Monocytes % (Manual) Seg Neutrophils # 14.7 H Seg Neutrophils # Man Lymphocytes # (Manual) Monocytes # (Manual) Heparin Anti-Xa Level < 0.10 L POC ABG pH POC ABG pCO2 POC ABG pO2 Sodium 127 L Potassium 6.1 H* Chloride 87.2 L Carbon Dioxide BUN 55 H Creatinine 8.7 H Glucose 140 H POC Glucose Calcium ALT Alkaline Phosphatase Total Creatine Kinase CK-MB (CK-2) CK-MB (CK-2) Rel Index Troponin T C-Reactive Protein Albumin 03/18/17 03/18/17 03/19/17 04:34 22:15 00:04 WBC RBC Hgb Hct RDW Lymph % (Auto) [place] % (Auto) Lymph # [place] # Seg Neutrophils % Seg Neuts % (Manual) Lymphocytes % (Manual) Monocytes % (Manual) Seg Neutrophils # Seg Neutrophils # Man Lymphocytes # (Manual) Monocytes # (Manual) Heparin Anti-Xa Level POC ABG pH 7.289 L POC ABG pCO2 48.7 H POC ABG pO2 Sodium Potassium 5.6 H Chloride Carbon Dioxide BUN Creatinine Glucose POC Glucose 108 H Calcium ALT Alkaline Phosphatase Total Creatine Kinase CK-MB (CK-2) CK-MB (CK-2) Rel Index Troponin T C-Reactive Protein Albumin 03/19/17 03/19/17 03/19/17 05:22 08:00 08:00 WBC 16.3 H RBC 3.15 L Hgb 8.8 L Hct 27.3 L RDW 17.4 H Lymph % (Auto) 3.4 L [place] % (Auto) 10.1 H Lymph # 0.5 L [place] # 1.7 H Seg Neutrophils % 85.4 H Seg Neuts % (Manual) Lymphocytes % (Manual) Monocytes % (Manual) Seg Neutrophils # 13.9 H Seg Neutrophils # Man Lymphocytes # (Manual) Monocytes # (Manual) Heparin Anti-Xa Level POC ABG pH POC ABG pCO2 POC ABG pO2 Sodium 131 L Potassium Chloride 89.3 L Carbon Dioxide BUN 56 H Creatinine 7.8 H Glucose 122 H POC Glucose 146 H Calcium ALT 59 H Alkaline Phosphatase 208 H Total Creatine Kinase CK-MB (CK-2) CK-MB (CK-2) Rel Index Troponin T C-Reactive Protein Albumin 2.6 L 03/19/17 03/19/17 03/19/17 08:06 11:50 17:36 WBC RBC Hgb Hct RDW Lymph % (Auto) [place] % (Auto) Lymph # [place] # Seg Neutrophils % Seg Neuts % (Manual) Lymphocytes % (Manual) Monocytes % (Manual) Seg Neutrophils # Seg Neutrophils # Man Lymphocytes # (Manual) Monocytes # (Manual) Heparin Anti-Xa Level POC ABG pH 7.338 L POC ABG pCO2 49.2 H POC ABG pO2 110 H Sodium Potassium Chloride Carbon Dioxide BUN Creatinine Glucose POC Glucose 172 H 152 H Calcium ALT Alkaline Phosphatase Total Creatine Kinase CK-MB (CK-2) CK-MB (CK-2) Rel Index Troponin T C-Reactive Protein Albumin 03/20/17 03/20/17 03/20/17 00:14 04:15 05:06 WBC RBC Hgb Hct RDW Lymph % (Auto) [place] % (Auto) Lymph # [place] # Seg Neutrophils % Seg Neuts % (Manual) Lymphocytes % (Manual) Monocytes % (Manual) Seg Neutrophils # Seg Neutrophils # Man Lymphocytes # (Manual) Monocytes # (Manual) Heparin Anti-Xa Level POC ABG pH 7.288 L POC ABG pCO2 51.4 H POC ABG pO2 Sodium Potassium Chloride Carbon Dioxide BUN Creatinine Glucose POC Glucose 132 H 166 H Calcium ALT Alkaline Phosphatase Total Creatine Kinase CK-MB (CK-2) CK-MB (CK-2) Rel Index Troponin T C-Reactive Protein Albumin 03/20/17 03/20/17 03/20/17 12:07 15:45 17:41 WBC RBC Hgb Hct RDW Lymph % (Auto) [place] % (Auto) Lymph # [place] # Seg Neutrophils % Seg Neuts % (Manual) Lymphocytes % (Manual) Monocytes % (Manual) Seg Neutrophils # Seg Neutrophils # Man Lymphocytes # (Manual) Monocytes # (Manual) Heparin Anti-Xa Level POC ABG pH POC ABG pCO2 POC ABG pO2 Sodium Potassium Chloride Carbon Dioxide BUN Creatinine Glucose POC Glucose 193 H 172 H 156 H Calcium ALT Alkaline Phosphatase Total Creatine Kinase CK-MB (CK-2) CK-MB (CK-2) Rel Index Troponin T C-Reactive Protein Albumin 03/20/17 03/21/17 03/21/17 23:13 04:42 05:41 WBC RBC Hgb Hct RDW Lymph % (Auto) [place] % (Auto) Lymph # [place] # Seg Neutrophils % Seg Neuts % (Manual) Lymphocytes % (Manual) Monocytes % (Manual) Seg Neutrophils # Seg Neutrophils # Man Lymphocytes # (Manual) Monocytes # (Manual) Heparin Anti-Xa Level POC ABG pH 7.321 L POC ABG pCO2 56.8 H POC ABG pO2 73 L Sodium Potassium Chloride Carbon Dioxide BUN Creatinine Glucose POC Glucose 141 H 159 H Calcium ALT Alkaline Phosphatase Total Creatine Kinase CK-MB (CK-2) CK-MB (CK-2) Rel Index Troponin T C-Reactive Protein Albumin 03/21/17 03/21/17 03/21/17 07:45 07:45 12:16 WBC 15.1 H RBC 3.32 L Hgb 9.2 L Hct 28.9 L RDW 17.4 H Lymph % (Auto) 4.7 L [place] % (Auto) 16.0 H Lymph # 0.7 L [place] # 2.4 H Seg Neutrophils % 78.6 H Seg Neuts % (Manual) Lymphocytes % (Manual) Monocytes % (Manual) Seg Neutrophils # 11.8 H Seg Neutrophils # Man Lymphocytes # (Manual) Monocytes # (Manual) Heparin Anti-Xa Level POC ABG pH POC ABG pCO2 POC ABG pO2 Sodium Potassium Chloride 95.4 L Carbon Dioxide BUN 55 H Creatinine 6.9 H Glucose 188 H POC Glucose 226 H Calcium ALT Alkaline Phosphatase 244 H Total Creatine Kinase CK-MB (CK-2) CK-MB (CK-2) Rel Index Troponin T C-Reactive Protein Albumin 2.8 L 03/21/17 03/21/17 03/22/17 17:17 23:28 04:49 WBC RBC Hgb Hct RDW Lymph % (Auto) [place] % (Auto) Lymph # [place] # Seg Neutrophils % Seg Neuts % (Manual) Lymphocytes % (Manual) Monocytes % (Manual) Seg Neutrophils # Seg Neutrophils # Man Lymphocytes # (Manual) Monocytes # (Manual) Heparin Anti-Xa Level POC ABG pH 7.323 L POC ABG pCO2 49.5 H POC ABG pO2 77 L Sodium Potassium Chloride Carbon Dioxide BUN Creatinine Glucose POC Glucose 192 H 199 H Calcium ALT Alkaline Phosphatase Total Creatine Kinase CK-MB (CK-2) CK-MB (CK-2) Rel Index Troponin T C-Reactive Protein Albumin 03/22/17 03/22/17 03/22/17 06:13 07:40 07:40 WBC 16.4 H RBC 3.29 L Hgb 9.1 L Hct 28.4 L RDW 17.3 H Lymph % (Auto) [place] % (Auto) Lymph # [place] # Seg Neutrophils % Seg Neuts % (Manual) 73.0 H Lymphocytes % (Manual) 8.0 L Monocytes % (Manual) 14.0 H Seg Neutrophils # Seg Neutrophils # Man 12.0 H Lymphocytes # (Manual) Monocytes # (Manual) 2.3 H Heparin Anti-Xa Level POC ABG pH POC ABG pCO2 POC ABG pO2 Sodium Potassium Chloride 94.8 L Carbon Dioxide 21 L BUN 84 H Creatinine 9.4 H Glucose 188 H POC Glucose 190 H Calcium ALT Alkaline Phosphatase Total Creatine Kinase CK-MB (CK-2) CK-MB (CK-2) Rel Index Troponin T C-Reactive Protein Albumin 03/22/17 03/22/17 03/22/17 11:43 17:38 23:56 WBC RBC Hgb Hct RDW Lymph % (Auto) [place] % (Auto) Lymph # [place] # Seg Neutrophils % Seg Neuts % (Manual) Lymphocytes % (Manual) Monocytes % (Manual) Seg Neutrophils # Seg Neutrophils # Man Lymphocytes # (Manual) Monocytes # (Manual) Heparin Anti-Xa Level POC ABG pH POC ABG pCO2 POC ABG pO2 Sodium Potassium Chloride Carbon Dioxide BUN Creatinine Glucose POC Glucose 149 H 168 H 229 H Calcium ALT Alkaline Phosphatase Total Creatine Kinase CK-MB (CK-2) CK-MB (CK-2) Rel Index Troponin T C-Reactive Protein Albumin 03/23/17 03/23/17 03/23/17 05:00 05:00 05:21 WBC 14.0 H RBC 3.09 L Hgb 8.5 L Hct 27.0 L RDW 17.8 H Lymph % (Auto) [place] % (Auto) Lymph # [place] # Seg Neutrophils % Seg Neuts % (Manual) Lymphocytes % (Manual) 11.0 L Monocytes % (Manual) 13.0 H Seg Neutrophils # Seg Neutrophils # Man 9.2 H Lymphocytes # (Manual) Monocytes # (Manual) 1.8 H Heparin Anti-Xa Level POC ABG pH POC ABG pCO2 POC ABG pO2 Sodium Potassium Chloride 94.5 L Carbon Dioxide BUN 76 H Creatinine 7.5 H Glucose 192 H POC Glucose 195 H Calcium ALT Alkaline Phosphatase Total Creatine Kinase CK-MB (CK-2) CK-MB (CK-2) Rel Index Troponin T C-Reactive Protein Albumin 03/23/17 03/23/17 03/23/17 12:15 17:47 23:27 WBC RBC Hgb Hct RDW Lymph % (Auto) [place] % (Auto) Lymph # [place] # Seg Neutrophils % Seg Neuts % (Manual) Lymphocytes % (Manual) Monocytes % (Manual) Seg Neutrophils # Seg Neutrophils # Man Lymphocytes # (Manual) Monocytes # (Manual) Heparin Anti-Xa Level POC ABG pH POC ABG pCO2 POC ABG pO2 Sodium Potassium Chloride Carbon Dioxide BUN Creatinine Glucose POC Glucose 162 H 137 H 221 H Calcium ALT Alkaline Phosphatase Total Creatine Kinase CK-MB (CK-2) CK-MB (CK-2) Rel Index Troponin T C-Reactive Protein Albumin 03/24/17 03/24/17 03/24/17 05:42 08:49 08:49 WBC RBC 2.99 L Hgb 8.5 L Hct 25.9 L RDW 18.1 H Lymph % (Auto) [place] % (Auto) Lymph # [place] # Seg Neutrophils % Seg Neuts % (Manual) 83.0 H Lymphocytes % (Manual) 6.0 L Monocytes % (Manual) Seg Neutrophils # Seg Neutrophils # Man 8.5 H Lymphocytes # (Manual) 0.6 L Monocytes # (Manual) Heparin Anti-Xa Level POC ABG pH POC ABG pCO2 POC ABG pO2 Sodium Potassium Chloride 95.4 L Carbon Dioxide BUN 108 H Creatinine 9.4 H Glucose 203 H POC Glucose 216 H Calcium ALT Alkaline Phosphatase Total Creatine Kinase CK-MB (CK-2) CK-MB (CK-2) Rel Index Troponin T C-Reactive Protein Albumin 03/24/17 03/24/17 03/24/17 11:21 17:32 23:37 WBC RBC Hgb Hct RDW Lymph % (Auto) [place] % (Auto) Lymph # [place] # Seg Neutrophils % Seg Neuts % (Manual) Lymphocytes % (Manual) Monocytes % (Manual) Seg Neutrophils # Seg Neutrophils # Man Lymphocytes # (Manual) Monocytes # (Manual) Heparin Anti-Xa Level POC ABG pH POC ABG pCO2 POC ABG pO2 Sodium Potassium Chloride Carbon Dioxide BUN Creatinine Glucose POC Glucose 185 H 138 H 218 H Calcium ALT Alkaline Phosphatase Total Creatine Kinase CK-MB (CK-2) CK-MB (CK-2) Rel Index Troponin T C-Reactive Protein Albumin 03/25/17 03/25/17 03/25/17 04:38 04:38 05:24 WBC RBC 3.27 L Hgb 9.3 L Hct 29.8 L RDW 18.4 H Lymph % (Auto) [place] % (Auto) Lymph # [place] # Seg Neutrophils % Seg Neuts % (Manual) 78.0 H Lymphocytes % (Manual) 10.0 L Monocytes % (Manual) 9.0 H Seg Neutrophils # Seg Neutrophils # Man Lymphocytes # (Manual) 0.8 L Monocytes # (Manual) Heparin Anti-Xa Level POC ABG pH POC ABG pCO2 POC ABG pO2 Sodium 136 L Potassium Chloride 92.5 L Carbon Dioxide 17 L BUN 124 H Creatinine 9.7 H Glucose 217 H POC Glucose 211 H Calcium ALT Alkaline Phosphatase Total Creatine Kinase CK-MB (CK-2) CK-MB (CK-2) Rel Index Troponin T C-Reactive Protein Albumin 03/25/17 03/25/17 03/25/17 11:53 17:15 20:12 WBC RBC Hgb Hct RDW Lymph % (Auto) [place] % (Auto) Lymph # [place] # Seg Neutrophils % Seg Neuts % (Manual) Lymphocytes % (Manual) Monocytes % (Manual) Seg Neutrophils # Seg Neutrophils # Man Lymphocytes # (Manual) Monocytes # (Manual) Heparin Anti-Xa Level POC ABG pH 7.469 H POC ABG pCO2 POC ABG pO2 69 L Sodium Potassium Chloride Carbon Dioxide BUN Creatinine Glucose POC Glucose 165 H 173 H Calcium ALT Alkaline Phosphatase Total Creatine Kinase CK-MB (CK-2) CK-MB (CK-2) Rel Index Troponin T C-Reactive Protein Albumin 03/25/17 03/26/17 03/26/17 23:32 05:59 06:03 WBC RBC Hgb Hct RDW Lymph % (Auto) [place] % (Auto) Lymph # [place] # Seg Neutrophils % Seg Neuts % (Manual) Lymphocytes % (Manual) Monocytes % (Manual) Seg Neutrophils # Seg Neutrophils # Man Lymphocytes # (Manual) Monocytes # (Manual) Heparin Anti-Xa Level POC ABG pH POC ABG pCO2 POC ABG pO2 Sodium 136 L Potassium Chloride 91.6 L Carbon Dioxide 20 L BUN 97 H Creatinine 8.0 H Glucose 239 H POC Glucose 231 H 214 H Calcium ALT Alkaline Phosphatase Total Creatine Kinase CK-MB (CK-2) CK-MB (CK-2) Rel Index Troponin T C-Reactive Protein Albumin 03/26/17 03/26/17 03/26/17 12:55 18:14 23:27 WBC RBC Hgb Hct RDW Lymph % (Auto) [place] % (Auto) Lymph # [place] # Seg Neutrophils % Seg Neuts % (Manual) Lymphocytes % (Manual) Monocytes % (Manual) Seg Neutrophils # Seg Neutrophils # Man Lymphocytes # (Manual) Monocytes # (Manual) Heparin Anti-Xa Level POC ABG pH POC ABG pCO2 POC ABG pO2 Sodium Potassium Chloride Carbon Dioxide BUN Creatinine Glucose POC Glucose 220 H 236 H 221 H Calcium ALT Alkaline Phosphatase Total Creatine Kinase CK-MB (CK-2) CK-MB (CK-2) Rel Index Troponin T C-Reactive Protein Albumin 03/27/17 03/27/17 03/27/17 00:58 04:00 04:00 WBC 12.9 H RBC 3.33 L Hgb 9.2 L Hct 29.0 L RDW 18.0 H Lymph % (Auto) [place] % (Auto) Lymph # [place] # Seg Neutrophils % Seg Neuts % (Manual) 78.0 H Lymphocytes % (Manual) 13.0 L Monocytes % (Manual) Seg Neutrophils # Seg Neutrophils # Man 10.1 H Lymphocytes # (Manual) Monocytes # (Manual) Heparin Anti-Xa Level POC ABG pH POC ABG pCO2 POC ABG pO2 Sodium Potassium Chloride 91.8 L Carbon Dioxide BUN 108 H Creatinine 9.0 H Glucose 237 H POC Glucose Calcium ALT Alkaline Phosphatase Total Creatine Kinase CK-MB (CK-2) CK-MB (CK-2) Rel Index Troponin T C-Reactive Protein 7.90 H Albumin 03/27/17 03/27/17 03/27/17 05:24 11:17 17:40 WBC RBC Hgb Hct RDW Lymph % (Auto) [place] % (Auto) Lymph # [place] # Seg Neutrophils % Seg Neuts % (Manual) Lymphocytes % (Manual) Monocytes % (Manual) Seg Neutrophils # Seg Neutrophils # Man Lymphocytes # (Manual) Monocytes # (Manual) Heparin Anti-Xa Level POC ABG pH POC ABG pCO2 POC ABG pO2 Sodium Potassium Chloride Carbon Dioxide BUN Creatinine Glucose POC Glucose 231 H 172 H 223 H Calcium ALT Alkaline Phosphatase Total Creatine Kinase CK-MB (CK-2) CK-MB (CK-2) Rel Index Troponin T C-Reactive Protein Albumin 03/27/17 03/28/17 03/28/17 23:49 05:40 11:51 WBC RBC Hgb Hct RDW Lymph % (Auto) [place] % (Auto) Lymph # [place] # Seg Neutrophils % Seg Neuts % (Manual) Lymphocytes % (Manual) Monocytes % (Manual) Seg Neutrophils # Seg Neutrophils # Man Lymphocytes # (Manual) Monocytes # (Manual) Heparin Anti-Xa Level POC ABG pH POC ABG pCO2 POC ABG pO2 Sodium Potassium Chloride Carbon Dioxide BUN Creatinine Glucose POC Glucose 184 H 212 H 187 H Calcium ALT Alkaline Phosphatase Total Creatine Kinase CK-MB (CK-2) CK-MB (CK-2) Rel Index Troponin T C-Reactive Protein Albumin 03/28/17 03/29/17 03/29/17 17:11 00:25 05:28 WBC RBC Hgb Hct RDW Lymph % (Auto) [place] % (Auto) Lymph # [place] # Seg Neutrophils % Seg Neuts % (Manual) Lymphocytes % (Manual) Monocytes % (Manual) Seg Neutrophils # Seg Neutrophils # Man Lymphocytes # (Manual) Monocytes # (Manual) Heparin Anti-Xa Level POC ABG pH POC ABG pCO2 POC ABG pO2 Sodium Potassium Chloride Carbon Dioxide BUN Creatinine Glucose POC Glucose 177 H 147 H 143 H Calcium ALT Alkaline Phosphatase Total Creatine Kinase CK-MB (CK-2) CK-MB (CK-2) Rel Index Troponin T C-Reactive Protein Albumin 03/29/17 03/30/17 03/30/17 17:46 06:06 10:42 WBC RBC Hgb Hct RDW Lymph % (Auto) [place] % (Auto) Lymph # [place] # Seg Neutrophils % Seg Neuts % (Manual) Lymphocytes % (Manual) Monocytes % (Manual) Seg Neutrophils # Seg Neutrophils # Man Lymphocytes # (Manual) Monocytes # (Manual) Heparin Anti-Xa Level POC ABG pH POC ABG pCO2 POC ABG pO2 Sodium Potassium Chloride Carbon Dioxide BUN Creatinine Glucose POC Glucose 184 H 294 H 299 H Calcium ALT Alkaline Phosphatase Total Creatine Kinase CK-MB (CK-2) CK-MB (CK-2) Rel Index Troponin T C-Reactive Protein Albumin 03/30/17 03/30/17 03/30/17 13:21 16:38 19:48 WBC RBC Hgb Hct RDW Lymph % (Auto) [place] % (Auto) Lymph # [place] # Seg Neutrophils % Seg Neuts % (Manual) Lymphocytes % (Manual) Monocytes % (Manual) Seg Neutrophils # Seg Neutrophils # Man Lymphocytes # (Manual) Monocytes # (Manual) Heparin Anti-Xa Level POC ABG pH 7.466 H POC ABG pCO2 POC ABG pO2 Sodium Potassium Chloride Carbon Dioxide BUN Creatinine Glucose POC Glucose 230 H 277 H Calcium ALT Alkaline Phosphatase Total Creatine Kinase CK-MB (CK-2) CK-MB (CK-2) Rel Index Troponin T C-Reactive Protein Albumin 03/30/17 03/31/17 03/31/17 23:28 05:49 17:13 WBC RBC Hgb Hct RDW Lymph % (Auto) [place] % (Auto) Lymph # [place] # Seg Neutrophils % Seg Neuts % (Manual) Lymphocytes % (Manual) Monocytes % (Manual) Seg Neutrophils # Seg Neutrophils # Man Lymphocytes # (Manual) Monocytes # (Manual) Heparin Anti-Xa Level POC ABG pH POC ABG pCO2 POC ABG pO2 Sodium Potassium Chloride Carbon Dioxide BUN Creatinine Glucose POC Glucose 203 H 261 H 227 H Calcium ALT Alkaline Phosphatase Total Creatine Kinase CK-MB (CK-2) CK-MB (CK-2) Rel Index Troponin T C-Reactive Protein Albumin 03/31/17 04/01/17 04/01/17 19:32 00:39 05:51 WBC RBC Hgb Hct RDW Lymph % (Auto) [place] % (Auto) Lymph # [place] # Seg Neutrophils % Seg Neuts % (Manual) Lymphocytes % (Manual) Monocytes % (Manual) Seg Neutrophils # Seg Neutrophils # Man Lymphocytes # (Manual) Monocytes # (Manual) Heparin Anti-Xa Level POC ABG pH POC ABG pCO2 POC ABG pO2 Sodium Potassium Chloride Carbon Dioxide BUN Creatinine Glucose POC Glucose 238 H 147 H 185 H Calcium ALT Alkaline Phosphatase Total Creatine Kinase CK-MB (CK-2) CK-MB (CK-2) Rel Index Troponin T C-Reactive Protein Albumin 04/01/17 04/01/17 04/01/17 12:00 12:17 23:23 WBC RBC Hgb Hct RDW Lymph % (Auto) [place] % (Auto) Lymph # [place] # Seg Neutrophils % Seg Neuts % (Manual) Lymphocytes % (Manual) Monocytes % (Manual) Seg Neutrophils # Seg Neutrophils # Man Lymphocytes # (Manual) Monocytes # (Manual) Heparin Anti-Xa Level POC ABG pH POC ABG pCO2 POC ABG pO2 Sodium 136 L Potassium 5.4 H Chloride 88.3 L Carbon Dioxide 20 L BUN 110 H Creatinine 10.8 H Glucose 209 H POC Glucose 261 H 302 H Calcium ALT Alkaline Phosphatase Total Creatine Kinase CK-MB (CK-2) CK-MB (CK-2) Rel Index Troponin T C-Reactive Protein Albumin 04/02/17 04/02/17 04/02/17 05:16 06:40 06:40 WBC RBC Hgb Hct RDW 19.6 H Lymph % (Auto) 8.5 L [place] % (Auto) 12.8 H Lymph # 0.8 L [place] # 1.2 H Seg Neutrophils % 76.4 H Seg Neuts % (Manual) Lymphocytes % (Manual) Monocytes % (Manual) Seg Neutrophils # Seg Neutrophils # Man Lymphocytes # (Manual) Monocytes # (Manual) Heparin Anti-Xa Level POC ABG pH POC ABG pCO2 POC ABG pO2 Sodium Potassium 5.3 H Chloride 91.0 L Carbon Dioxide BUN 50 H Creatinine 6.0 H Glucose 183 H POC Glucose 213 H Calcium 10.8 H ALT Alkaline Phosphatase Total Creatine Kinase CK-MB (CK-2) CK-MB (CK-2) Rel Index Troponin T C-Reactive Protein Albumin 04/02/17 04/02/17 04/03/17 11:53 19:03 00:01 WBC RBC Hgb Hct RDW Lymph % (Auto) [place] % (Auto) Lymph # [place] # Seg Neutrophils % Seg Neuts % (Manual) Lymphocytes % (Manual) Monocytes % (Manual) Seg Neutrophils # Seg Neutrophils # Man Lymphocytes # (Manual) Monocytes # (Manual) Heparin Anti-Xa Level POC ABG pH POC ABG pCO2 POC ABG pO2 Sodium Potassium Chloride Carbon Dioxide BUN Creatinine Glucose POC Glucose 203 H 260 H 147 H Calcium ALT Alkaline Phosphatase Total Creatine Kinase CK-MB (CK-2) CK-MB (CK-2) Rel Index Troponin T C-Reactive Protein Albumin 04/03/17 04/03/17 04/03/17 06:09 07:03 07:03 WBC RBC Hgb Hct RDW 20.3 H Lymph % (Auto) 13.2 L [place] % (Auto) 14.5 H Lymph # 1.0 L [place] # 1.1 H Seg Neutrophils % Seg Neuts % (Manual) Lymphocytes % (Manual) Monocytes % (Manual) Seg Neutrophils # Seg Neutrophils # Man Lymphocytes # (Manual) Monocytes # (Manual) Heparin Anti-Xa Level POC ABG pH POC ABG pCO2 POC ABG pO2 Sodium 133 L Potassium 6.2 H* Chloride 88.3 L Carbon Dioxide BUN 68 H Creatinine 7.5 H Glucose 138 H POC Glucose 154 H Calcium ALT Alkaline Phosphatase Total Creatine Kinase CK-MB (CK-2) CK-MB (CK-2) Rel Index Troponin T C-Reactive Protein Albumin Allied health notes reviewed: RT
[2017-04-04] MEDS: ULTRAM PO PRN (01:22)
[2017-04-04] MEDS: DUONEB *Not for PRN Use IH SCH ×4 (02:01→21:39)
[2017-04-04 05:56] LABS: Eosinophils % (Auto) 1.7 % (0.0-4.3); Hematocrit 31.2 % (30.3-42.9); Hemoglobin 9.9 gm/dl (10.1-14.3); Mean Corpuscular HGB Conc 32 % (30-34); Mean Corpuscular Hemoglobin 29 pg (28-32); Mean Corpuscular Volume 91 fl (79-97); Platelet Count 143 K/mm3 (140-440); Red Blood Count 3.44 M/mm3 (3.65-5.03)
[2017-04-04 06:10] LABS: Calcium 9.6 mg/dL (8.4-10.2); Chloride 90.8 mmol/L (98-107); Potassium 4.6 mmol/L (3.6-5.0)
[2017-04-04] MEDS: LOPRESSOR PO SCH ×4 (07:17→23:16)
[2017-04-04] MEDS: HEPARIN SUB-Q SCH ×3 (07:19→22:59)
[2017-04-04] MEDS: LEVEMIR SUB-Q SCH (09:58)
[2017-04-04] MEDS: PEPCID PO SCH (09:59)
[2017-04-04] MEDS: PLAVIX PO SCH (09:59)
--- NOTE | 2017-04-04 10:24 | Progress Note ---
Assessment and Plan S/p V fib arrest (cardiac arrest)/STEMI will arrange for Lifevest placement and OP follow up with EP Coronary artery disease s/p PCI [facility] 03/16: patent LAD stents, possible distal LAD spasm pt. is allergic to ASA, continue Plavix, statin, metoprolol Post op afib-->currently SR Hypertension stable Hyperlipidemia Pulmonary HTN ESRD on HD Respiratory failure s/p extubation Continue current management. Will arrange for Lifevest placement and OP follow up with EP. The patient has been seen in conjunction with Dr. García who agrees with the assessment and plan of care. Subjective Date of service: 04/04/17 Principal diagnosis: Acute Hypoxemic Resp Failure; STEMI Interval history: The patient is resting in bed. No new complaints. Sinus rhythm on the monitor. Objective Last Vital Signs Temp 98.5 F 04/04/17 08:10 Pulse 78 04/04/17 08:10 Resp 20 04/04/17 08:10 BP 119/52 04/04/17 08:10 Pulse Ox 99 04/04/17 08:10 - Physical Examination General: Appears Well, No Apparent Distress HEENT: Positive: Normocephaly, Mucus Membranes Moist Neck: Positive: neck supple, trachea midline Cardiac: Positive: Reg Rate and Rhythm, S1/S2 Lungs: Positive: Decreased Breath Sounds Neuro: Positive: Grossly Intact Abdomen: Positive: Soft, Active Bowel Sounds Skin: Negative: Clear, Rash Musculoskeletal: No Fluid Collection, No Pain, Normal Range of Motion, other ( reproducible anterior chest wall tenderness) Extremities: Present: upper extr. pulses, lower extr. pulses. Absent: edema - Labs and Meds CBC 04/04/17 Range/Units 05:27 WBC 9.0 (4.5-11.0) K/mm3 RBC 3.44 L (3.65-5.03) M/mm3 Hgb 9.9 L (10.1-14.3) gm/dl Hct 31.2 (30.3-42.9) % Plt Count 143 (140-440) K/mm3 Lymph # 1.1 L (1.2-5.4) K/mm3 [place] # 1.3 H (0.0-0.8) K/mm3 Eos # 0.2 (0.0-0.4) K/mm3 Baso # 0.1 (0.0-0.1) K/mm3 Comprehensive Metabolic Panel 04/04/17 Range/Units 05:27 Sodium 134 L (137-145) mmol/L Potassium 4.6 D (3.6-5.0) mmol/L Carbon Dioxide 24 (22-30) mmol/L BUN 42 H (7-17) mg/dL Creatinine 6.0 H (0.7-1.2) mg/dL Glucose 175 H (65-100) mg/dL Calcium 9.6 (8.4-10.2) mg/dL - Imaging and Cardiology EKG: report reviewed, image reviewed Echo: report reviewed (echo reviewed - EF 60 - 65%, mild MR< mild TR, moderate , mild LVH, mild to moderate pulmonary HTN, RVSP 47mmHg. ) Cardiac cath: report reviewed (patent lad stents and distal lad spasm resolved) - Telemetry EKG Rhythm: Sinus Rhythm - EKG Sinus rhythms and dysrhythmias: sinus rhythm Myocardial infarction: inferior SD (acute or rec, anterior SD (acute or rec - Allied health notes Allied health notes reviewed: RT
--- NOTE | 2017-04-04 10:27 | Progress Note ---
Subjective Principal diagnosis: Acute Hypoxemic Resp Failure; STEMI Interval history: Patient was seen today for follow-up on multiple renal related issues Events noted No acute distress Vitals labs intake output medications reviewed Social history: Reviewed Family history: Reviewed Physical examination Vitals: Reviewed HEENT: Oral mucosa moist Neck: Supple no JVD Chest: Clear to auscultation no crackles Heart: Regular rate and rhythm S1 and S2 heard Abdomen: Soft nontender bowel sounds present Extremity: Mild edema dry skin Dermatology; dry skin Psychiatry: No evidence of agitation or aggression Assessment and plan; End-stage renal disease patient is currently on maintenance hemodialysis 3 times a week which she has been tolerating well Blood pressure is well-controlled hemoglobin 9.9 potassium 4.6 Hyperkalemia potassium was 6.2 currently better Anemia in end-stage renal disease to monitor erythropoietin as needed Secondary hyperparathyroidism to monitor phosphorus and PTH level Ultrafiltration as tolerated with hemodialysis Status post V. fib and arrest with ST elevation [place] LifeVest versus ICD recommended by cardiology History of coronary artery disease heart cath showed patent LAD stents with possible LAD spasm noted March 16 Postop atrial fibrillation currently in sinus rhythm History of hyperlipidemia pulmonary hypertension Recent respiratory failure currently doing better Periodically monitor renal related labs We'll continue to follow and make recommendation from renal standpoin Objective - Vital Signs Vital signs: Vital Signs - 12hr 04/03/17 04/04/17 04/04/17 23:15 00:00 01:22 Temperature 97.9 F Pulse Rate 82 Pulse Rate [ Anterior Bilateral Throughout] Pulse Rate [ 80 Apical] Pulse Rate [ 80 Left Radial] Pulse Rate [ 80 Right Radial] Respiratory 20 18 Rate Respiratory Rate [Anterior Bilateral Throughout] Blood Pressure 123/59 Blood Pressure 101/53 [Left Arm] Blood Pressure 101/53 [Right Arm] O2 Sat by Pulse 96 Oximetry 04/04/17 04/04/17 04/04/17 02:01 02:11 07:03 Temperature 98.8 F Pulse Rate Pulse Rate [ 72 74 Anterior Bilateral Throughout] Pulse Rate [ 0 L Apical] Pulse Rate [ 0 L Left Radial] Pulse Rate [ 75 Right Radial] Respiratory 20 Rate Respiratory 18 18 Rate [Anterior Bilateral Throughout] Blood Pressure Blood Pressure 0/0 [Left Arm] Blood Pressure 122/60 [Right Arm] O2 Sat by Pulse 99 Oximetry 04/04/17 04/04/17 07:17 08:10 Temperature 98.5 F Pulse Rate 73 Pulse Rate [ Anterior Bilateral Throughout] Pulse Rate [ 78 Apical] Pulse Rate [ 78 Left Radial] Pulse Rate [ 78 Right Radial] Respiratory 20 Rate Respiratory Rate [Anterior Bilateral Throughout] Blood Pressure 122/60 Blood Pressure 119/52 [Left Arm] Blood Pressure 109/52 [Right Arm] O2 Sat by Pulse 99 Oximetry - Lab 04/04/17 05:27 04/04/17 05:27 Most recent lab results Calcium 9.6 mg/dL (8.4-10.2) 04/04/17 05:27
--- NOTE | 2017-04-04 10:31 | XRay Report ---
Chest 2 views: Compared to 03/27/17. History: Status post acute respiratory failure. Findings: Marked cardiomegaly. Trachea is midline. Mild COPD. Scarring lower lobe. No acute consolidation or pleural effusion. Impression: Cardiomegaly with mild COPD.
--- NOTE | 2017-04-04 10:32 | Progress Note ---
Assessment and Plan Assessment and plan: 66-year-old female presents to the emergency department complaining of chest pain after dialysis. While in triage, the patient went unresponsive, and without a pulse, No palpable pulses were identified. Patient was placed on a hospital monitor and ventricular fibrillation was noted. Patient was defibrillated a single time with 200 J. She received CPR protocol, was intubated and had ROSC, and she was then taken to the ICU. Postarrest ECG was consistent with anterior STEMI. 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 continue antihypertensive medications -Hyperlipidemia- Continue statin therapy -awaiting EP eval for ICD. Pulmonary Acute hypoxic respiratory failure, mech vent >96 hours Status post extubation 03/24/17, continue oxygen supplementation and noninvasive positive pressure ventilation as needed GI Nausea/Vomiting- Start on zofran, now resolved Dysphagia has now resolved, continue diet Toxic metabolic encephalopathy EEG was reviewed, seizure is unlikely. 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 -WBC count is slowly downtrending, has completed empiric abx course RENAL/FEN End stage renal disease on hemodialysis. Nephrology following. 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 Diabetes mellitus type 2. Accu-Cheks and sliding scale insulin. Morbid obesity- will pre parole counseling aide when clinically improved about lifestyle modification Anemia of CKD. Follow H&H. Transfuse as necessary. DVT heparin subq, Discussed plan with the patient and her daughter Plan for SNIF placement, case management was updated on the plan History Interval history: She is improved, muscle pains are improving, otherwise she denies dysphagia or sob Hospitalist Physical - Physical exam Narrative exam: General: appears well HEENT: MMM, EOMI cardiac: S1-S2 heard lungs: clear to auscultation, abdomen: soft, nontender, nondistended bowel sounds positive extremities: no edema clubbing or cyanosis muscle soreness to palpation all over her body Skin: no rash or lesion Neuro: AAOx3, Left facial droop, LUE focal weakness, moves all extremities, obeys commands, generalized weakness Psych: calm, cooperative - Constitutional Vitals: Temp Pulse Resp BP Pulse Ox 98.5 F 78 20 119/52 99 04/04/17 08:10 04/04/17 08:10 04/04/17 08:10 04/04/17 08:10 04/04/17 08:10 General appearance: Present: no acute distress, obese Results - Labs CBC & Chem 7: 04/04/17 05:27 04/04/17 05:27 Labs: Laboratory Last Values WBC 9.0 K/mm3 (4.5-11.0) 04/04/17 05:27 RBC 3.44 M/mm3 (3.65-5.03) L 04/04/17 05:27 Hgb 9.9 gm/dl (10.1-14.3) L 04/04/17 05:27 Hct 31.2 % (30.3-42.9) 04/04/17 05:27 MCV 91 fl (79-97) 04/04/17 05:27 MCH 29 pg (28-32) 04/04/17 05:27 MCHC 32 % (30-34) 04/04/17 05:27 RDW 20.0 % (13.2-15.2) H 04/04/17 05:27 Plt Count 143 K/mm3 (140-440) 04/04/17 05:27 Lymph % (Auto) 12.3 % (13.4-35.0) L 04/04/17 05:27 [place] % (Auto) 14.7 % (0.0-7.3) H 04/04/17 05:27 Eos % (Auto) 1.7 % (0.0-4.3) 04/04/17 05:27 Baso % (Auto) 1.0 % (0.0-1.8) 04/04/17 05:27 Lymph # 1.1 K/mm3 (1.2-5.4) L 04/04/17 05:27 [place] # 1.3 K/mm3 (0.0-0.8) H 04/04/17 05:27 Eos # 0.2 K/mm3 (0.0-0.4) 04/04/17 05:27 Baso # 0.1 K/mm3 (0.0-0.1) 04/04/17 05:27 Add Manual Diff Complete 03/27/17 04:00 Total Counted 100 03/27/17 04:00 Seg Neutrophils % 70.3 % (40.0-70.0) H 04/04/17 05:27 Seg Neuts % (Manual) 78.0 % (40.0-70.0) H 03/27/17 04:00 Band Neutrophils % 1.0 % 03/27/17 04:00 Lymphocytes % (Manual) 13.0 % (13.4-35.0) L 03/27/17 04:00 Reactive Lymphs % (Man) 0 % 03/27/17 04:00 Monocytes % (Manual) 6.0 % (0.0-7.3) 03/27/17 04:00 Eosinophils % (Manual) 2.0 % (0.0-4.3) 03/27/17 04:00 Basophils % (Manual) 0 % (0.0-1.8) 03/27/17 04:00 Metamyelocytes % 0 % 03/27/17 04:00 Myelocytes % 0 % 03/27/17 04:00 Promyelocytes % 0 % 03/27/17 04:00 Blast Cells % 0 % 03/27/17 04:00 Nucleated RBC % Not Reportable 03/27/17 04:00 Seg Neutrophils # 6.3 K/mm3 (1.8-7.7) 04/04/17 05:27 Seg Neutrophils # Man 10.1 K/mm3 (1.8-7.7) H 03/27/17 04:00 Band Neutrophils # 0.1 K/mm3 03/27/17 04:00 Lymphocytes # (Manual) 1.7 K/mm3 (1.2-5.4) 03/27/17 04:00 Abs React Lymphs (Man) 0.0 K/mm3 03/27/17 04:00 Monocytes # (Manual) 0.8 K/mm3 (0.0-0.8) 03/27/17 04:00 Eosinophils # (Manual) 0.3 K/mm3 (0.0-0.4) 03/27/17 04:00 Basophils # (Manual) 0.0 K/mm3 (0.0-0.1) 03/27/17 04:00 Metamyelocytes # 0.0 K/mm3 03/27/17 04:00 Myelocytes # 0.0 K/mm3 03/27/17 04:00 Promyelocytes # 0.0 K/mm3 03/27/17 04:00 Blast Cells # 0.0 K/mm3 03/27/17 04:00 WBC Morphology Not Reportable 03/27/17 04:00 Hypersegmented Neuts Not Reportable 03/27/17 04:00 Hyposegmented Neuts Not Reportable 03/27/17 04:00 Hypogranular Neuts Not Reportable 03/27/17 04:00 Smudge Cells Not Reportable 03/27/17 04:00 Toxic Granulation Not Reportable 03/27/17 04:00 Toxic Vacuolation Not Reportable 03/27/17 04:00 Dohle Bodies Not Reportable 03/27/17 04:00 [place]uet Anomaly Not Reportable 03/27/17 04:00 [place] Rods Not Reportable 03/27/17 04:00 Platelet Estimate Consistent w auto 03/27/17 04:00 Clumped Platelets Not Reportable 03/27/17 04:00 Plt Clumps, EDTA Not Reportable 03/27/17 04:00 Large Platelets Not Reportable 03/27/17 04:00 Giant Platelets Not Reportable 03/27/17 04:00 Platelet Satelliting Not Reportable 03/27/17 04:00 Plt Morphology Comment Not Reportable 03/27/17 04:00 RBC Morphology Not Reportable 03/27/17 04:00 Dimorphic RBCs Not Reportable 03/27/17 04:00 Polychromasia Few 03/27/17 04:00 Hypochromasia Not Reportable 03/27/17 04:00 Poikilocytosis Not Reportable 03/27/17 04:00 Anisocytosis Not Reportable 03/27/17 04:00 Microcytosis Not Reportable 03/27/17 04:00 Macrocytosis Not Reportable 03/27/17 04:00 Spherocytes Not Reportable 03/27/17 04:00 Pappenheimer Bodies Not Reportable 03/27/17 04:00 Sickle Cells Not Reportable 03/27/17 04:00 Target Cells Not Reportable 03/27/17 04:00 Tear Drop Cells Not Reportable 03/27/17 04:00 Ovalocytes Not Reportable 03/27/17 04:00 Helmet Cells Not Reportable 03/27/17 04:00 [place] Bodies Not Reportable 03/27/17 04:00 [place] Rings Not Reportable 03/27/17 04:00 [place] Cells Not Reportable 03/27/17 04:00 Bite Cells Not Reportable 03/27/17 04:00 Crenated Cell Not Reportable 03/27/17 04:00 Elliptocytes Not Reportable 03/27/17 04:00 Acanthocytes (Spur) Not Reportable 03/27/17 04:00 [place]leaux Not Reportable 03/27/17 04:00 Hemoglobin C Crystals Not Reportable 03/27/17 04:00 Schistocytes Not Reportable 03/27/17 04:00 Malaria parasites Not Reportable 03/27/17 04:00 [place] Bodies Not Reportable 03/27/17 04:00 Hem Pathologist Commnt No 03/27/17 04:00 PT 13.4 Sec. (12.2-14.9) 03/16/17 11:07 INR 1.03 (0.87-1.13) 03/16/17 11:07 APTT 24.1 Sec. (24.2-36.6) L 03/16/17 11:07 Activated Clotting Time 125 (74-137) 03/17/17 08:23 Heparin Anti-Xa Level < 0.10 U.I./ml (0.3-0.7) L 03/17/17 21:12 POC ABG pH 7.466 (7.35-7.45) H 03/30/17 13:21 POC ABG pCO2 37.9 (35-45) 03/30/17 13:21 POC ABG pO2 100 (80-105) 03/30/17 13:21 POC ABG HCO3 27.4 03/30/17 13:21 POC ABG Total CO2 28 03/30/17 13:21 POC ABG O2 Sat 98 03/30/17 13:21 POC ABG Base Excess 4 03/30/17 13:21 FiO2 2 % 03/30/17 13:21 Sodium 134 mmol/L (137-145) L 04/04/17 05:27 Potassium 4.6 mmol/L (3.6-5.0) D 04/04/17 05:27 Chloride 88.3 mmol/L (98-107) L 04/03/17 07:03 Carbon Dioxide 24 mmol/L (22-30) 04/04/17 05:27 Anion Gap 27 mmol/L 04/03/17 07:03 BUN 42 mg/dL (7-17) H 04/04/17 05:27 Creatinine 6.0 mg/dL (0.7-1.2) H 04/04/17 05:27 Estimated GFR 8 ml/min 04/04/17 05:27 BUN/Creatinine Ratio 7.00 % 04/04/17 05:27 Glucose 175 mg/dL (65-100) H 04/04/17 05:27 POC Glucose 171 (70-105) H 04/04/17 07:09 Lactic Acid 1.50 mmol/L (0.7-2.0) 03/27/17 00:58 Calcium 9.6 mg/dL (8.4-10.2) 04/04/17 05:27 Total Bilirubin 0.50 mg/dL (0.1-1.2) 03/21/17 07:45 AST 23 units/L (5-40) 03/21/17 07:45 ALT 40 units/L (7-56) 03/21/17 07:45 Alkaline Phosphatase 244 units/L (35-129) H 03/21/17 07:45 Ammonia 38.0 umol/L (25-60) 03/18/17 19:02 Total Creatine Kinase 282 units/L (30-135) H 03/16/17 16:36 CK-MB (CK-2) 24.2 ng/mL (0.0-4.0) H 03/16/17 16:36 CK-MB (CK-2) Rel Index 8.5 (0-4) H 03/16/17 16:36 Troponin T 0.656 ng/mL (0.00-0.029) H* D 03/16/17 16:36 C-Reactive Protein 7.90 mg/dL (0.00-1.30) H 03/27/17 00:58 Total Protein 7.3 g/dL (6.3-8.2) 03/21/17 07:45 Albumin 2.8 g/dL (3.9-5) L 03/21/17 07:45 Albumin/Globulin Ratio 0.6 % 03/21/17 07:45 Triglycerides 134 mg/dL (2-149) 03/16/17 11:07 Cholesterol 228 mg/dL (50-199) H 03/16/17 11:07 LDL Cholesterol Direct 165 mg/dL (50-130) H 03/16/17 11:07 HDL Cholesterol 37 mg/dL (40-59) L 03/16/17 11:07 Cholesterol/HDL Ratio 6.16 % 03/16/17 11:07 TSH 0.746 mlU/mL (0.270-4.200) 03/18/17 19:02 Random Vancomycin 20.9 ug/mL (0-40.0) 03/22/17 07:40 Hepatitis A IgM Ab Non-reactive (NonReactive) 03/19/17 04:31 Hep Bs Antigen Non-reactive (Negative) 03/19/17 04:31 Hep B Core IgM Ab Non-reactive (NonReactive) 03/19/17 04:31 Hepatitis C Antibody Non-reactive (NonReactive) 03/19/17 04:31 Blood Type A POSITIVE 03/16/17 16:36 Antibody Screen TNR 03/16/17 16:36 CLAIR Antibody Screen Negative 03/16/17 16:36
--- NOTE | 2017-04-04 13:08 | Progress Note ---
Assessment and Plan - Patient Problems (1) Acute hypoxemic respiratory failure Current Visit: Yes Status: Resolved Plan to address problem: - we will continue aspiration precautions - we will continue bronchodilators and pulmonary toilet - continue to wean oxygen for sats > 94% - continue to use BIPAP scheduled qhs and prn daytime - continue HD/UF for toxin and volume clearance - prn ABG's to evaluate for hypercapnia - CXR reviewed and no acute process - following qhs (2) ESRD on dialysis Current Visit: Yes Status: Acute Plan to address problem: - continue HD/UF per nephrology prescription for toxin and volume/pulmonary edema control - oliguric - follow electrolytes and correct as necessary (3) Obesity (BMI 30-39.9) Current Visit: Yes Status: Chronic Plan to address problem: - weight loss counselled - outpatient sleep clinic evaluation (4) Sepsis syndrome Current Visit: Yes Status: Acute Plan to address problem: - weaned off dopamine - CRP significantly improved - complete empiric AB's - completed cefipime course also - per ID recs otherwise (5) STEMI (ST elevation myocardial infarction) Current Visit: Yes Status: Acute Qualifiers: Involved coronary artery: unspecified coronary artery Qualified Code(s): I21.3 - ST elevation (STEMI) myocardial infarction of unspecified site Plan to address problem: - on SQ heparin now for VTE prophylaxis - clinically improved - on plavix - cardiology on case and managing (will defer otherwise) (6) Type 2 diabetes mellitus Current Visit: No Status: Chronic Qualifiers: Diabetes mellitus complication status: D Diabetes mellitus complication detail: D Diabetic retinopathy severity: D Proliferative retinopathy type: P Diabetes mellitus macular edema: D 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 acute rehabilitation evaluation ....will re-evaluate in am & prn Subjective Date of service: 04/04/17 Principal diagnosis: Acute Hypoxemic Resp Failure; STEMI Interval history: Seen and examined at bedside; 24 hour events reviewed; nursing and respiratory care staff consulted; no adverse overnight events reported to me; resting in bed ; still with a hoarse voice; no N/V/F/C; tolerating qhs BIPAP; PT/OT ordered Objective Vital Signs - 12hr 04/04/17 04/04/17 04/04/17 01:22 02:01 02:11 Temperature Pulse Rate Pulse Rate [ 72 74 Anterior Bilateral Throughout] Pulse Rate [ Apical] Pulse Rate [ Left Radial] Pulse Rate [ Right Radial] Respiratory 18 Rate Respiratory 18 18 Rate [Anterior Bilateral Throughout] Blood Pressure Blood Pressure [Left Arm] Blood Pressure [Right Arm] O2 Sat by Pulse Oximetry 04/04/17 04/04/17 04/04/17 07:03 07:17 07:26 Temperature 98.8 F Pulse Rate 73 Pulse Rate [ 73 Anterior Bilateral Throughout] Pulse Rate [ 0 L Apical] Pulse Rate [ 0 L Left Radial] Pulse Rate [ 75 Right Radial] Respiratory 20 Rate Respiratory 18 Rate [Anterior Bilateral Throughout] Blood Pressure 122/60 Blood Pressure 0/0 [Left Arm] Blood Pressure 122/60 [Right Arm] O2 Sat by Pulse 99 97 Oximetry 04/04/17 04/04/17 07:36 08:10 Temperature 98.5 F Pulse Rate Pulse Rate [ 75 Anterior Bilateral Throughout] Pulse Rate [ 78 Apical] Pulse Rate [ 78 Left Radial] Pulse Rate [ 78 Right Radial] Respiratory 20 Rate Respiratory 20 Rate [Anterior Bilateral Throughout] Blood Pressure Blood Pressure 119/52 [Left Arm] Blood Pressure 109/52 [Right Arm] O2 Sat by Pulse 99 Oximetry Constitutional: no acute distress, other (somnolent) Eyes: non-icteric ENT: oropharynx moist Neck: supple, no lymphadenopathy, no JVD Effort: mildly labored Ascultation: Bilateral: clear, diminished breath sounds Cardiovascular: regular rate and rhythm Gastrointestinal: normoactive bowel sounds, soft, non-tender, non-distended Integumentary: normal, other (Femoral CVC) Extremities: no cyanosis, no edema, pulses normal, no ischemia or petechiae Neurologic: normal mental status, non-focal exam (Moves all extremities, tracks my voice, attempts to vocalize in response to questions), pupils equal and round , motor strength normal and, other (very weak) Psychiatric: mood appropriate, affect normal, depressed CBC and BMP: 04/05/17 12:23 04/05/17 12:23 ABG, PT/INR, D-dimer: ABG POC ABG pH 7.466 (7.35-7.45) H 03/30/17 13:21 POC ABG pCO2 37.9 (35-45) 03/30/17 13:21 POC ABG pO2 100 (80-105) 03/30/17 13:21 POC ABG HCO3 27.4 03/30/17 13:21 POC ABG Total CO2 28 03/30/17 13:21 POC ABG O2 Sat 98 03/30/17 13:21 PT/INR, D-dimer PT 13.4 Sec. (12.2-14.9) 03/16/17 11:07 INR 1.03 (0.87-1.13) 03/16/17 11:07 Abnormal lab findings: Abnormal Labs 03/16/17 03/16/17 03/17/17 16:36 18:00 03:42 WBC 20.6 H RBC Hgb Hct RDW 17.3 H Lymph % (Auto) [place] % (Auto) Lymph # [place] # Seg Neutrophils % Seg Neuts % (Manual) 84.0 H Lymphocytes % (Manual) 3.0 L Monocytes % (Manual) 11.0 H Seg Neutrophils # Seg Neutrophils # Man 17.3 H Lymphocytes # (Manual) 0.6 L Monocytes # (Manual) 2.3 H Heparin Anti-Xa Level POC ABG pH 7.336 L POC ABG pCO2 47.9 H POC ABG pO2 189 H Sodium Potassium Chloride Carbon Dioxide BUN Creatinine Glucose POC Glucose Calcium ALT Alkaline Phosphatase Total Creatine Kinase 282 H CK-MB (CK-2) 24.2 H CK-MB (CK-2) Rel Index 8.5 H Troponin T 0.656 H* D C-Reactive Protein Albumin 03/17/17 03/17/17 03/17/17 03:42 04:21 17:15 WBC RBC Hgb Hct RDW Lymph % (Auto) [place] % (Auto) Lymph # [place] # Seg Neutrophils % Seg Neuts % (Manual) Lymphocytes % (Manual) Monocytes % (Manual) Seg Neutrophils # Seg Neutrophils # Man Lymphocytes # (Manual) Monocytes # (Manual) Heparin Anti-Xa Level 0.10 L POC ABG pH POC ABG pCO2 POC ABG pO2 Sodium 131 L Potassium 5.3 H D Chloride 89.5 L Carbon Dioxide 21 L BUN 39 H Creatinine 7.0 H Glucose 151 H POC Glucose Calcium ALT Alkaline Phosphatase Total Creatine Kinase CK-MB (CK-2) CK-MB (CK-2) Rel Index Troponin T C-Reactive Protein 33.90 H Albumin 03/17/17 03/18/17 03/18/17 21:12 03:33 03:33 WBC 17.6 H RBC 3.59 L Hgb Hct RDW 16.9 H Lymph % (Auto) 4.2 L [place] % (Auto) 11.8 H Lymph # 0.7 L [place] # 2.1 H Seg Neutrophils % 83.3 H Seg Neuts % (Manual) Lymphocytes % (Manual) Monocytes % (Manual) Seg Neutrophils # 14.7 H Seg Neutrophils # Man Lymphocytes # (Manual) Monocytes # (Manual) Heparin Anti-Xa Level < 0.10 L POC ABG pH POC ABG pCO2 POC ABG pO2 Sodium 127 L Potassium 6.1 H* Chloride 87.2 L Carbon Dioxide BUN 55 H Creatinine 8.7 H Glucose 140 H POC Glucose Calcium ALT Alkaline Phosphatase Total Creatine Kinase CK-MB (CK-2) CK-MB (CK-2) Rel Index Troponin T C-Reactive Protein Albumin 03/18/17 03/18/17 03/19/17 04:34 22:15 00:04 WBC RBC Hgb Hct RDW Lymph % (Auto) [place] % (Auto) Lymph # [place] # Seg Neutrophils % Seg Neuts % (Manual) Lymphocytes % (Manual) Monocytes % (Manual) Seg Neutrophils # Seg Neutrophils # Man Lymphocytes # (Manual) Monocytes # (Manual) Heparin Anti-Xa Level POC ABG pH 7.289 L POC ABG pCO2 48.7 H POC ABG pO2 Sodium Potassium 5.6 H Chloride Carbon Dioxide BUN Creatinine Glucose POC Glucose 108 H Calcium ALT Alkaline Phosphatase Total Creatine Kinase CK-MB (CK-2) CK-MB (CK-2) Rel Index Troponin T C-Reactive Protein Albumin 03/19/17 03/19/17 03/19/17 05:22 08:00 08:00 WBC 16.3 H RBC 3.15 L Hgb 8.8 L Hct 27.3 L RDW 17.4 H Lymph % (Auto) 3.4 L [place] % (Auto) 10.1 H Lymph # 0.5 L [place] # 1.7 H Seg Neutrophils % 85.4 H Seg Neuts % (Manual) Lymphocytes % (Manual) Monocytes % (Manual) Seg Neutrophils # 13.9 H Seg Neutrophils # Man Lymphocytes # (Manual) Monocytes # (Manual) Heparin Anti-Xa Level POC ABG pH POC ABG pCO2 POC ABG pO2 Sodium 131 L Potassium Chloride 89.3 L Carbon Dioxide BUN 56 H Creatinine 7.8 H Glucose 122 H POC Glucose 146 H Calcium ALT 59 H Alkaline Phosphatase 208 H Total Creatine Kinase CK-MB (CK-2) CK-MB (CK-2) Rel Index Troponin T C-Reactive Protein Albumin 2.6 L 03/19/17 03/19/17 03/19/17 08:06 11:50 17:36 WBC RBC Hgb Hct RDW Lymph % (Auto) [place] % (Auto) Lymph # [place] # Seg Neutrophils % Seg Neuts % (Manual) Lymphocytes % (Manual) Monocytes % (Manual) Seg Neutrophils # Seg Neutrophils # Man Lymphocytes # (Manual) Monocytes # (Manual) Heparin Anti-Xa Level POC ABG pH 7.338 L POC ABG pCO2 49.2 H POC ABG pO2 110 H Sodium Potassium Chloride Carbon Dioxide BUN Creatinine Glucose POC Glucose 172 H 152 H Calcium ALT Alkaline Phosphatase Total Creatine Kinase CK-MB (CK-2) CK-MB (CK-2) Rel Index Troponin T C-Reactive Protein Albumin 03/20/17 03/20/17 03/20/17 00:14 04:15 05:06 WBC RBC Hgb Hct RDW Lymph % (Auto) [place] % (Auto) Lymph # [place] # Seg Neutrophils % Seg Neuts % (Manual) Lymphocytes % (Manual) Monocytes % (Manual) Seg Neutrophils # Seg Neutrophils # Man Lymphocytes # (Manual) Monocytes # (Manual) Heparin Anti-Xa Level POC ABG pH 7.288 L POC ABG pCO2 51.4 H POC ABG pO2 Sodium Potassium Chloride Carbon Dioxide BUN Creatinine Glucose POC Glucose 132 H 166 H Calcium ALT Alkaline Phosphatase Total Creatine Kinase CK-MB (CK-2) CK-MB (CK-2) Rel Index Troponin T C-Reactive Protein Albumin 03/20/17 03/20/17 03/20/17 12:07 15:45 17:41 WBC RBC Hgb Hct RDW Lymph % (Auto) [place] % (Auto) Lymph # [place] # Seg Neutrophils % Seg Neuts % (Manual) Lymphocytes % (Manual) Monocytes % (Manual) Seg Neutrophils # Seg Neutrophils # Man Lymphocytes # (Manual) Monocytes # (Manual) Heparin Anti-Xa Level POC ABG pH POC ABG pCO2 POC ABG pO2 Sodium Potassium Chloride Carbon Dioxide BUN Creatinine Glucose POC Glucose 193 H 172 H 156 H Calcium ALT Alkaline Phosphatase Total Creatine Kinase CK-MB (CK-2) CK-MB (CK-2) Rel Index Troponin T C-Reactive Protein Albumin 03/20/17 03/21/17 03/21/17 23:13 04:42 05:41 WBC RBC Hgb Hct RDW Lymph % (Auto) [place] % (Auto) Lymph # [place] # Seg Neutrophils % Seg Neuts % (Manual) Lymphocytes % (Manual) Monocytes % (Manual) Seg Neutrophils # Seg Neutrophils # Man Lymphocytes # (Manual) Monocytes # (Manual) Heparin Anti-Xa Level POC ABG pH 7.321 L POC ABG pCO2 56.8 H POC ABG pO2 73 L Sodium Potassium Chloride Carbon Dioxide BUN Creatinine Glucose POC Glucose 141 H 159 H Calcium ALT Alkaline Phosphatase Total Creatine Kinase CK-MB (CK-2) CK-MB (CK-2) Rel Index Troponin T C-Reactive Protein Albumin 03/21/17 03/21/17 03/21/17 07:45 07:45 12:16 WBC 15.1 H RBC 3.32 L Hgb 9.2 L Hct 28.9 L RDW 17.4 H Lymph % (Auto) 4.7 L [place] % (Auto) 16.0 H Lymph # 0.7 L [place] # 2.4 H Seg Neutrophils % 78.6 H Seg Neuts % (Manual) Lymphocytes % (Manual) Monocytes % (Manual) Seg Neutrophils # 11.8 H Seg Neutrophils # Man Lymphocytes # (Manual) Monocytes # (Manual) Heparin Anti-Xa Level POC ABG pH POC ABG pCO2 POC ABG pO2 Sodium Potassium Chloride 95.4 L Carbon Dioxide BUN 55 H Creatinine 6.9 H Glucose 188 H POC Glucose 226 H Calcium ALT Alkaline Phosphatase 244 H Total Creatine Kinase CK-MB (CK-2) CK-MB (CK-2) Rel Index Troponin T C-Reactive Protein Albumin 2.8 L 03/21/17 03/21/17 03/22/17 17:17 23:28 04:49 WBC RBC Hgb Hct RDW Lymph % (Auto) [place] % (Auto) Lymph # [place] # Seg Neutrophils % Seg Neuts % (Manual) Lymphocytes % (Manual) Monocytes % (Manual) Seg Neutrophils # Seg Neutrophils # Man Lymphocytes # (Manual) Monocytes # (Manual) Heparin Anti-Xa Level POC ABG pH 7.323 L POC ABG pCO2 49.5 H POC ABG pO2 77 L Sodium Potassium Chloride Carbon Dioxide BUN Creatinine Glucose POC Glucose 192 H 199 H Calcium ALT Alkaline Phosphatase Total Creatine Kinase CK-MB (CK-2) CK-MB (CK-2) Rel Index Troponin T C-Reactive Protein Albumin 03/22/17 03/22/17 03/22/17 06:13 07:40 07:40 WBC 16.4 H RBC 3.29 L Hgb 9.1 L Hct 28.4 L RDW 17.3 H Lymph % (Auto) [place] % (Auto) Lymph # [place] # Seg Neutrophils % Seg Neuts % (Manual) 73.0 H Lymphocytes % (Manual) 8.0 L Monocytes % (Manual) 14.0 H Seg Neutrophils # Seg Neutrophils # Man 12.0 H Lymphocytes # (Manual) Monocytes # (Manual) 2.3 H Heparin Anti-Xa Level POC ABG pH POC ABG pCO2 POC ABG pO2 Sodium Potassium Chloride 94.8 L Carbon Dioxide 21 L BUN 84 H Creatinine 9.4 H Glucose 188 H POC Glucose 190 H Calcium ALT Alkaline Phosphatase Total Creatine Kinase CK-MB (CK-2) CK-MB (CK-2) Rel Index Troponin T C-Reactive Protein Albumin 03/22/17 03/22/17 03/22/17 11:43 17:38 23:56 WBC RBC Hgb Hct RDW Lymph % (Auto) [place] % (Auto) Lymph # [place] # Seg Neutrophils % Seg Neuts % (Manual) Lymphocytes % (Manual) Monocytes % (Manual) Seg Neutrophils # Seg Neutrophils # Man Lymphocytes # (Manual) Monocytes # (Manual) Heparin Anti-Xa Level POC ABG pH POC ABG pCO2 POC ABG pO2 Sodium Potassium Chloride Carbon Dioxide BUN Creatinine Glucose POC Glucose 149 H 168 H 229 H Calcium ALT Alkaline Phosphatase Total Creatine Kinase CK-MB (CK-2) CK-MB (CK-2) Rel Index Troponin T C-Reactive Protein Albumin 03/23/17 03/23/17 03/23/17 05:00 05:00 05:21 WBC 14.0 H RBC 3.09 L Hgb 8.5 L Hct 27.0 L RDW 17.8 H Lymph % (Auto) [place] % (Auto) Lymph # [place] # Seg Neutrophils % Seg Neuts % (Manual) Lymphocytes % (Manual) 11.0 L Monocytes % (Manual) 13.0 H Seg Neutrophils # Seg Neutrophils # Man 9.2 H Lymphocytes # (Manual) Monocytes # (Manual) 1.8 H Heparin Anti-Xa Level POC ABG pH POC ABG pCO2 POC ABG pO2 Sodium Potassium Chloride 94.5 L Carbon Dioxide BUN 76 H Creatinine 7.5 H Glucose 192 H POC Glucose 195 H Calcium ALT Alkaline Phosphatase Total Creatine Kinase CK-MB (CK-2) CK-MB (CK-2) Rel Index Troponin T C-Reactive Protein Albumin 03/23/17 03/23/17 03/23/17 12:15 17:47 23:27 WBC RBC Hgb Hct RDW Lymph % (Auto) [place] % (Auto) Lymph # [place] # Seg Neutrophils % Seg Neuts % (Manual) Lymphocytes % (Manual) Monocytes % (Manual) Seg Neutrophils # Seg Neutrophils # Man Lymphocytes # (Manual) Monocytes # (Manual) Heparin Anti-Xa Level POC ABG pH POC ABG pCO2 POC ABG pO2 Sodium Potassium Chloride Carbon Dioxide BUN Creatinine Glucose POC Glucose 162 H 137 H 221 H Calcium ALT Alkaline Phosphatase Total Creatine Kinase CK-MB (CK-2) CK-MB (CK-2) Rel Index Troponin T C-Reactive Protein Albumin 03/24/17 03/24/17 03/24/17 05:42 08:49 08:49 WBC RBC 2.99 L Hgb 8.5 L Hct 25.9 L RDW 18.1 H Lymph % (Auto) [place] % (Auto) Lymph # [place] # Seg Neutrophils % Seg Neuts % (Manual) 83.0 H Lymphocytes % (Manual) 6.0 L Monocytes % (Manual) Seg Neutrophils # Seg Neutrophils # Man 8.5 H Lymphocytes # (Manual) 0.6 L Monocytes # (Manual) Heparin Anti-Xa Level POC ABG pH POC ABG pCO2 POC ABG pO2 Sodium Potassium Chloride 95.4 L Carbon Dioxide BUN 108 H Creatinine 9.4 H Glucose 203 H POC Glucose 216 H Calcium ALT Alkaline Phosphatase Total Creatine Kinase CK-MB (CK-2) CK-MB (CK-2) Rel Index Troponin T C-Reactive Protein Albumin 03/24/17 03/24/17 03/24/17 11:21 17:32 23:37 WBC RBC Hgb Hct RDW Lymph % (Auto) [place] % (Auto) Lymph # [place] # Seg Neutrophils % Seg Neuts % (Manual) Lymphocytes % (Manual) Monocytes % (Manual) Seg Neutrophils # Seg Neutrophils # Man Lymphocytes # (Manual) Monocytes # (Manual) Heparin Anti-Xa Level POC ABG pH POC ABG pCO2 POC ABG pO2 Sodium Potassium Chloride Carbon Dioxide BUN Creatinine Glucose POC Glucose 185 H 138 H 218 H Calcium ALT Alkaline Phosphatase Total Creatine Kinase CK-MB (CK-2) CK-MB (CK-2) Rel Index Troponin T C-Reactive Protein Albumin 03/25/17 03/25/17 03/25/17 04:38 04:38 05:24 WBC RBC 3.27 L Hgb 9.3 L Hct 29.8 L RDW 18.4 H Lymph % (Auto) [place] % (Auto) Lymph # [place] # Seg Neutrophils % Seg Neuts % (Manual) 78.0 H Lymphocytes % (Manual) 10.0 L Monocytes % (Manual) 9.0 H Seg Neutrophils # Seg Neutrophils # Man Lymphocytes # (Manual) 0.8 L Monocytes # (Manual) Heparin Anti-Xa Level POC ABG pH POC ABG pCO2 POC ABG pO2 Sodium 136 L Potassium Chloride 92.5 L Carbon Dioxide 17 L BUN 124 H Creatinine 9.7 H Glucose 217 H POC Glucose 211 H Calcium ALT Alkaline Phosphatase Total Creatine Kinase CK-MB (CK-2) CK-MB (CK-2) Rel Index Troponin T C-Reactive Protein Albumin 03/25/17 03/25/17 03/25/17 11:53 17:15 20:12 WBC RBC Hgb Hct RDW Lymph % (Auto) [place] % (Auto) Lymph # [place] # Seg Neutrophils % Seg Neuts % (Manual) Lymphocytes % (Manual) Monocytes % (Manual) Seg Neutrophils # Seg Neutrophils # Man Lymphocytes # (Manual) Monocytes # (Manual) Heparin Anti-Xa Level POC ABG pH 7.469 H POC ABG pCO2 POC ABG pO2 69 L Sodium Potassium Chloride Carbon Dioxide BUN Creatinine Glucose POC Glucose 165 H 173 H Calcium ALT Alkaline Phosphatase Total Creatine Kinase CK-MB (CK-2) CK-MB (CK-2) Rel Index Troponin T C-Reactive Protein Albumin 03/25/17 03/26/17 03/26/17 23:32 05:59 06:03 WBC RBC Hgb Hct RDW Lymph % (Auto) [place] % (Auto) Lymph # [place] # Seg Neutrophils % Seg Neuts % (Manual) Lymphocytes % (Manual) Monocytes % (Manual) Seg Neutrophils # Seg Neutrophils # Man Lymphocytes # (Manual) Monocytes # (Manual) Heparin Anti-Xa Level POC ABG pH POC ABG pCO2 POC ABG pO2 Sodium 136 L Potassium Chloride 91.6 L Carbon Dioxide 20 L BUN 97 H Creatinine 8.0 H Glucose 239 H POC Glucose 231 H 214 H Calcium ALT Alkaline Phosphatase Total Creatine Kinase CK-MB (CK-2) CK-MB (CK-2) Rel Index Troponin T C-Reactive Protein Albumin 03/26/17 03/26/17 03/26/17 12:55 18:14 23:27 WBC RBC Hgb Hct RDW Lymph % (Auto) [place] % (Auto) Lymph # [place] # Seg Neutrophils % Seg Neuts % (Manual) Lymphocytes % (Manual) Monocytes % (Manual) Seg Neutrophils # Seg Neutrophils # Man Lymphocytes # (Manual) Monocytes # (Manual) Heparin Anti-Xa Level POC ABG pH POC ABG pCO2 POC ABG pO2 Sodium Potassium Chloride Carbon Dioxide BUN Creatinine Glucose POC Glucose 220 H 236 H 221 H Calcium ALT Alkaline Phosphatase Total Creatine Kinase CK-MB (CK-2) CK-MB (CK-2) Rel Index Troponin T C-Reactive Protein Albumin 03/27/17 03/27/17 03/27/17 00:58 04:00 04:00 WBC 12.9 H RBC 3.33 L Hgb 9.2 L Hct 29.0 L RDW 18.0 H Lymph % (Auto) [place] % (Auto) Lymph # [place] # Seg Neutrophils % Seg Neuts % (Manual) 78.0 H Lymphocytes % (Manual) 13.0 L Monocytes % (Manual) Seg Neutrophils # Seg Neutrophils # Man 10.1 H Lymphocytes # (Manual) Monocytes # (Manual) Heparin Anti-Xa Level POC ABG pH POC ABG pCO2 POC ABG pO2 Sodium Potassium Chloride 91.8 L Carbon Dioxide BUN 108 H Creatinine 9.0 H Glucose 237 H POC Glucose Calcium ALT Alkaline Phosphatase Total Creatine Kinase CK-MB (CK-2) CK-MB (CK-2) Rel Index Troponin T C-Reactive Protein 7.90 H Albumin 03/27/17 03/27/17 03/27/17 05:24 11:17 17:40 WBC RBC Hgb Hct RDW Lymph % (Auto) [place] % (Auto) Lymph # [place] # Seg Neutrophils % Seg Neuts % (Manual) Lymphocytes % (Manual) Monocytes % (Manual) Seg Neutrophils # Seg Neutrophils # Man Lymphocytes # (Manual) Monocytes # (Manual) Heparin Anti-Xa Level POC ABG pH POC ABG pCO2 POC ABG pO2 Sodium Potassium Chloride Carbon Dioxide BUN Creatinine Glucose POC Glucose 231 H 172 H 223 H Calcium ALT Alkaline Phosphatase Total Creatine Kinase CK-MB (CK-2) CK-MB (CK-2) Rel Index Troponin T C-Reactive Protein Albumin 03/27/17 03/28/17 03/28/17 23:49 05:40 11:51 WBC RBC Hgb Hct RDW Lymph % (Auto) [place] % (Auto) Lymph # [place] # Seg Neutrophils % Seg Neuts % (Manual) Lymphocytes % (Manual) Monocytes % (Manual) Seg Neutrophils # Seg Neutrophils # Man Lymphocytes # (Manual) Monocytes # (Manual) Heparin Anti-Xa Level POC ABG pH POC ABG pCO2 POC ABG pO2 Sodium Potassium Chloride Carbon Dioxide BUN Creatinine Glucose POC Glucose 184 H 212 H 187 H Calcium ALT Alkaline Phosphatase Total Creatine Kinase CK-MB (CK-2) CK-MB (CK-2) Rel Index Troponin T C-Reactive Protein Albumin 03/28/17 03/29/17 03/29/17 17:11 00:25 05:28 WBC RBC Hgb Hct RDW Lymph % (Auto) [place] % (Auto) Lymph # [place] # Seg Neutrophils % Seg Neuts % (Manual) Lymphocytes % (Manual) Monocytes % (Manual) Seg Neutrophils # Seg Neutrophils # Man Lymphocytes # (Manual) Monocytes # (Manual) Heparin Anti-Xa Level POC ABG pH POC ABG pCO2 POC ABG pO2 Sodium Potassium Chloride Carbon Dioxide BUN Creatinine Glucose POC Glucose 177 H 147 H 143 H Calcium ALT Alkaline Phosphatase Total Creatine Kinase CK-MB (CK-2) CK-MB (CK-2) Rel Index Troponin T C-Reactive Protein Albumin 03/29/17 03/30/17 03/30/17 17:46 06:06 10:42 WBC RBC Hgb Hct RDW Lymph % (Auto) [place] % (Auto) Lymph # [place] # Seg Neutrophils % Seg Neuts % (Manual) Lymphocytes % (Manual) Monocytes % (Manual) Seg Neutrophils # Seg Neutrophils # Man Lymphocytes # (Manual) Monocytes # (Manual) Heparin Anti-Xa Level POC ABG pH POC ABG pCO2 POC ABG pO2 Sodium Potassium Chloride Carbon Dioxide BUN Creatinine Glucose POC Glucose 184 H 294 H 299 H Calcium ALT Alkaline Phosphatase Total Creatine Kinase CK-MB (CK-2) CK-MB (CK-2) Rel Index Troponin T C-Reactive Protein Albumin 03/30/17 03/30/17 03/30/17 13:21 16:38 19:48 WBC RBC Hgb Hct RDW Lymph % (Auto) [place] % (Auto) Lymph # [place] # Seg Neutrophils % Seg Neuts % (Manual) Lymphocytes % (Manual) Monocytes % (Manual) Seg Neutrophils # Seg Neutrophils # Man Lymphocytes # (Manual) Monocytes # (Manual) Heparin Anti-Xa Level POC ABG pH 7.466 H POC ABG pCO2 POC ABG pO2 Sodium Potassium Chloride Carbon Dioxide BUN Creatinine Glucose POC Glucose 230 H 277 H Calcium ALT Alkaline Phosphatase Total Creatine Kinase CK-MB (CK-2) CK-MB (CK-2) Rel Index Troponin T C-Reactive Protein Albumin 03/30/17 03/31/17 03/31/17 23:28 05:49 17:13 WBC RBC Hgb Hct RDW Lymph % (Auto) [place] % (Auto) Lymph # [place] # Seg Neutrophils % Seg Neuts % (Manual) Lymphocytes % (Manual) Monocytes % (Manual) Seg Neutrophils # Seg Neutrophils # Man Lymphocytes # (Manual) Monocytes # (Manual) Heparin Anti-Xa Level POC ABG pH POC ABG pCO2 POC ABG pO2 Sodium Potassium Chloride Carbon Dioxide BUN Creatinine Glucose POC Glucose 203 H 261 H 227 H Calcium ALT Alkaline Phosphatase Total Creatine Kinase CK-MB (CK-2) CK-MB (CK-2) Rel Index Troponin T C-Reactive Protein Albumin 03/31/17 04/01/17 04/01/17 19:32 00:39 05:51 WBC RBC Hgb Hct RDW Lymph % (Auto) [place] % (Auto) Lymph # [place] # Seg Neutrophils % Seg Neuts % (Manual) Lymphocytes % (Manual) Monocytes % (Manual) Seg Neutrophils # Seg Neutrophils # Man Lymphocytes # (Manual) Monocytes # (Manual) Heparin Anti-Xa Level POC ABG pH POC ABG pCO2 POC ABG pO2 Sodium Potassium Chloride Carbon Dioxide BUN Creatinine Glucose POC Glucose 238 H 147 H 185 H Calcium ALT Alkaline Phosphatase Total Creatine Kinase CK-MB (CK-2) CK-MB (CK-2) Rel Index Troponin T C-Reactive Protein Albumin 04/01/17 04/01/17 04/01/17 12:00 12:17 23:23 WBC RBC Hgb Hct RDW Lymph % (Auto) [place] % (Auto) Lymph # [place] # Seg Neutrophils % Seg Neuts % (Manual) Lymphocytes % (Manual) Monocytes % (Manual) Seg Neutrophils # Seg Neutrophils # Man Lymphocytes # (Manual) Monocytes # (Manual) Heparin Anti-Xa Level POC ABG pH POC ABG pCO2 POC ABG pO2 Sodium 136 L Potassium 5.4 H Chloride 88.3 L Carbon Dioxide 20 L BUN 110 H Creatinine 10.8 H Glucose 209 H POC Glucose 261 H 302 H Calcium ALT Alkaline Phosphatase Total Creatine Kinase CK-MB (CK-2) CK-MB (CK-2) Rel Index Troponin T C-Reactive Protein Albumin 04/02/17 04/02/17 04/02/17 05:16 06:40 06:40 WBC RBC Hgb Hct RDW 19.6 H Lymph % (Auto) 8.5 L [place] % (Auto) 12.8 H Lymph # 0.8 L [place] # 1.2 H Seg Neutrophils % 76.4 H Seg Neuts % (Manual) Lymphocytes % (Manual) Monocytes % (Manual) Seg Neutrophils # Seg Neutrophils # Man Lymphocytes # (Manual) Monocytes # (Manual) Heparin Anti-Xa Level POC ABG pH POC ABG pCO2 POC ABG pO2 Sodium Potassium 5.3 H Chloride 91.0 L Carbon Dioxide BUN 50 H Creatinine 6.0 H Glucose 183 H POC Glucose 213 H Calcium 10.8 H ALT Alkaline Phosphatase Total Creatine Kinase CK-MB (CK-2) CK-MB (CK-2) Rel Index Troponin T C-Reactive Protein Albumin 04/02/17 04/02/17 04/03/17 11:53 19:03 00:01 WBC RBC Hgb Hct RDW Lymph % (Auto) [place] % (Auto) Lymph # [place] # Seg Neutrophils % Seg Neuts % (Manual) Lymphocytes % (Manual) Monocytes % (Manual) Seg Neutrophils # Seg Neutrophils # Man Lymphocytes # (Manual) Monocytes # (Manual) Heparin Anti-Xa Level POC ABG pH POC ABG pCO2 POC ABG pO2 Sodium Potassium Chloride Carbon Dioxide BUN Creatinine Glucose POC Glucose 203 H 260 H 147 H Calcium ALT Alkaline Phosphatase Total Creatine Kinase CK-MB (CK-2) CK-MB (CK-2) Rel Index Troponin T C-Reactive Protein Albumin 04/03/17 04/03/17 04/03/17 06:09 07:03 07:03 WBC RBC Hgb Hct RDW 20.3 H Lymph % (Auto) 13.2 L [place] % (Auto) 14.5 H Lymph # 1.0 L [place] # 1.1 H Seg Neutrophils % Seg Neuts % (Manual) Lymphocytes % (Manual) Monocytes % (Manual) Seg Neutrophils # Seg Neutrophils # Man Lymphocytes # (Manual) Monocytes # (Manual) Heparin Anti-Xa Level POC ABG pH POC ABG pCO2 POC ABG pO2 Sodium 133 L Potassium 6.2 H* Chloride 88.3 L Carbon Dioxide BUN 68 H Creatinine 7.5 H Glucose 138 H POC Glucose 154 H Calcium ALT Alkaline Phosphatase Total Creatine Kinase CK-MB (CK-2) CK-MB (CK-2) Rel Index Troponin T C-Reactive Protein Albumin 04/03/17 04/04/17 04/04/17 18:19 00:26 05:27 WBC RBC 3.44 L Hgb 9.9 L Hct RDW 20.0 H Lymph % (Auto) 12.3 L [place] % (Auto) 14.7 H Lymph # 1.1 L [place] # 1.3 H Seg Neutrophils % 70.3 H Seg Neuts % (Manual) Lymphocytes % (Manual) Monocytes % (Manual) Seg Neutrophils # Seg Neutrophils # Man Lymphocytes # (Manual) Monocytes # (Manual) Heparin Anti-Xa Level POC ABG pH POC ABG pCO2 POC ABG pO2 Sodium Potassium Chloride Carbon Dioxide BUN Creatinine Glucose POC Glucose 331 H 230 H Calcium ALT Alkaline Phosphatase Total Creatine Kinase CK-MB (CK-2) CK-MB (CK-2) Rel Index Troponin T C-Reactive Protein Albumin 04/04/17 04/04/17 05:27 07:09 WBC RBC Hgb Hct RDW Lymph % (Auto) [place] % (Auto) Lymph # [place] # Seg Neutrophils % Seg Neuts % (Manual) Lymphocytes % (Manual) Monocytes % (Manual) Seg Neutrophils # Seg Neutrophils # Man Lymphocytes # (Manual) Monocytes # (Manual) Heparin Anti-Xa Level POC ABG pH POC ABG pCO2 POC ABG pO2 Sodium 134 L Potassium Chloride Carbon Dioxide BUN 42 H Creatinine 6.0 H Glucose 175 H POC Glucose 171 H Calcium ALT Alkaline Phosphatase Total Creatine Kinase CK-MB (CK-2) CK-MB (CK-2) Rel Index Troponin T C-Reactive Protein Albumin Allied health notes reviewed: RT
[2017-04-05] MEDS: DUONEB *Not for PRN Use IH SCH ×4 (02:48→22:09)
[2017-04-05] MEDS: LOPRESSOR PO SCH ×4 (06:00→22:34)
[2017-04-05] MEDS: HEPARIN SUB-Q SCH ×3 (06:00→22:32)
--- NOTE | 2017-04-05 07:21 | Vascular Lab Report ---
CAROTID DUPLEX STUDY: RIGHT PSVEDV CCA PROX: 8416 CCA DIST: 7714 ICA PROX: 6513 ICA MID: 8117 ICA DIST: 9023 ECA: 100 VERT: 49 11 LEFT PSVEDV CCA PROX: 9313 CCA DIST: 9416 ICA PROX: 7412 ICA MID: 5216 ICA DIST: 6517 ECA: 95 VERT: 51 13 REASON FOR EXAM: CVA. COMMENTS ON THE RIGHT: Doppler frequency analysis is consistent with 16 to 49 percent diameter reduction of the internal carotid artery. Minimal amount of plaque is seen. The common carotid artery is patent. The external carotid artery is patent. The vertebral artery has antegrade flow. COMMENTS ON THE LEFT: Doppler frequency analysis is consistent with 16 to 49 percent diameter reduction of the internal carotid artery. Minimal amount of plaque is seen. The common carotid artery is patent. The external carotid artery is patent. The vertebral artery has antegrade flow. IMPRESSION: Less than 50% diameter reduction in the internal carotid arteries bilaterally. Consider repeat carotid artery duplex in 12 months.
[2017-04-05] MEDS: ULTRAM PO PRN (07:46)
--- NOTE | 2017-04-05 08:34 | Progress Note ---
Assessment and Plan S/p V fib arrest 03/16 Pt. pulseless on presentation to ER-->CPR initiated-->ventricular fibrillation on the monitor-->defibrillated a single time with 200 J and resumption of compressions-->femoral pulse regained/ST on the monitor Post arrest ECG was consistent with anterior STEMI Will arrange for Lifevest placement and OP follow up with EP given VFib occurred prior to STEMI S/p STEMI Hyperkalemia dialysis per nephrology Coronary artery disease s/p PCI [facility] 03/16: patent LAD stents, possible distal LAD spasm pt. is allergic to ASA, continue Plavix, statin, metoprolol Post op afib-->currently SR Hypertension stable Hyperlipidemia Pulmonary HTN ESRD on HD Respiratory failure s/p extubation Continue current management. Await Lifevest placement. The patient has been seen in conjunction with Dr. García who agrees with the assessment and plan of care. Subjective Date of service: 04/05/17 Principal diagnosis: Acute Hypoxemic Resp Failure; STEMI Interval history: Pt. is resting in bed. No new complaints. Sinus rhythm on the monitor. Objective Last Vital Signs Temp 98.3 F 04/05/17 05:00 Pulse 66 04/05/17 06:00 Resp 18 04/05/17 05:00 BP 113/57 04/05/17 06:00 Pulse Ox 98 04/05/17 05:00 - Physical Examination General: Appears Well, No Apparent Distress HEENT: Positive: Normocephaly, Mucus Membranes Moist Neck: Positive: neck supple, trachea midline Cardiac: Positive: Reg Rate and Rhythm, S1/S2 Lungs: Positive: clear to auscultation Neuro: Positive: Grossly Intact Abdomen: Positive: Soft, Active Bowel Sounds Skin: Negative: Clear, Rash Musculoskeletal: No Fluid Collection, No Pain, Normal Range of Motion, other ( reproducible anterior chest wall tenderness) Extremities: Present: upper extr. pulses, lower extr. pulses. Absent: edema - Imaging and Cardiology EKG: report reviewed, image reviewed Echo: report reviewed (echo reviewed - EF 60 - 65%, mild MR< mild TR, moderate , mild LVH, mild to moderate pulmonary HTN, RVSP 47mmHg. ) Cardiac cath: report reviewed (patent lad stents and distal lad spasm resolved) - Telemetry EKG Rhythm: Sinus Rhythm - EKG Sinus rhythms and dysrhythmias: sinus rhythm Myocardial infarction: inferior IN (acute or rec, anterior IN (acute or rec - Allied health notes Allied health notes reviewed: RT
--- NOTE | 2017-04-05 08:52 | Discharge Summary ---
Providers - Providers Date of Admission: 03/16/17 13:43 Attending physician: STEPHANIE TINOCO MD 03/16/17 13:58 Consult to Cardiac Rehabilitation [CONS] Routine Reason For Exam: Cardiac Rehab Evaluation 03/16/17 15:20 Consult to Physician [CONS] Stat Consulting Provider: BERNIE PEÑA Reason For Exam: resp failure Place consult to:: Omaira Notified:: yes Was contact made?: Yes If yes, spoke with:: Omaira Time called:: 13:00 03/16/17 16:26 Consult to Dietitian/Nutrition [CONS] Routine Physician Instructions: Reason For Exam: Reason for Consult: Write/Manage Tube Feeding 03/17/17 16:08 Consult to Physician [CONS] Routine Consulting Provider: PRESTON RICHARDSON Reason For Exam: sepsis; fevers Place consult to:: Dr Richardson Notified:: left message Phone number called:: [phone] Was contact made?: No Time called:: 19:54 03/18/17 10:59 Consult to Physician [CONS] Routine Consulting Provider: EFRAIN BAINS Reason For Exam: central line access Place consult to:: FREIDA Wiseman Notified:: yes 03/18/17 11:53 Consult to Physician [CONS] Routine Consulting Provider: SAVANNA ARVIZU Reason For Exam: Post arrest-seizure Place consult to:: Dr. Arvizu Notified:: Yes If yes, spoke with:: Dr. Arvizu Time called:: 15:30 03/22/17 05:08 Consult to Wound/ET Nurse [CONS] Stat Reason For Exam: wound eval 03/24/17 18:52 Physical Therapy Evaluation and Treat [CONS] Routine Comment: Reason For Exam: debility 03/24/17 19:04 Speech Therapy Evaluation and Treat [CONS] Stat Reason For Exam: Post-Extubation Primary care physician: FINANCE EXECUTIVE Hospitalization Condition: Critical Hospital course: 66-year-old female presents to the emergency department complaining of chest pain after dialysis. While in triage, the patient went unresponsive, and without a pulse, No palpable pulses were identified. Patient was placed on a teacher cclc and ventricular fibrillation was noted. Patient was defibrillated a single time with 200 J. She received CPR protocol, was intubated and had ROSC, and she was then taken to the ICU. Postarrest ECG was consistent with anterior STEMI. Code STEMI was activated, she was taken to tin can laborer and received angiogram ; stent x 2 in LAD noted to be patent, but had distal LAD spasm Cardiovascular cardiac arrest; Vfib, STEMI, ACS, Distal LAD spasm, cardiogenic shock Cardiology input appreciated, status post cath with patent stents she was rx with amio drip, received heparin ggt x 24 hours, received Dopamine drip for Cardiogenic shock and hypotension,now improved; currently on Lopressor for rate control and now hypertensive -Hypertension. continue antihypertensive medications -Hyperlipidemia- Continue statin therapy -was given lifevest prior to DC, will follow up with EP as outpatient for ICD placement Pulmonary Acute hypoxic respiratory failure, mech vent >96 hours Status post extubation 03/24/17, continue oxygen supplementation and noninvasive positive pressure ventilation as needed GI Nausea/Vomiting- Start on zofran, now resolved Dysphagia has now resolved, continue diet Toxic metabolic encephalopathy EEG was reviewed, seizure is unlikely. 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 -WBC count is slowly downtrending, has completed empiric abx course RENAL/FEN End stage renal disease on hemodialysis. Nephrology following. 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 Diabetes mellitus type 2. Accu-Cheks and sliding scale insulin. Morbid obesity- will student counselor when clinically improved about lifestyle modification Anemia of CKD. Follow H&H. Transfuse as necessary. DVT heparin subq, Discussed plan with the patient and her daughter Plan for SNIF placement, case management was updated on the plan Disposition: [place]-03 SNF W [facility]ABRY Time spent for discharge: 33 minutes Core Measure Documentation - Palliative Care Palliative Care/ Comfort Measures: Not Applicable - Core Measures Any of the following diagnoses?: stroke - Stroke Discharge Requirements Statin for LDL = or >70 mg/dl on DC: Yes Anticoag for atrial fib/atrial flutter: Not Applicable Antithrombotic for ischemic stroke: Yes Exam - Physical Exam Narrative exam: General: appears well HEENT: MMM, EOMI cardiac: S1-S2 heard lungs: clear to auscultation, abdomen: soft, nontender, nondistended bowel sounds positive extremities: no edema clubbing or cyanosis muscle soreness to palpation all over her body Skin: no rash or lesion Neuro: AAOx3, Left facial droop, LUE focal weakness, moves all extremities, obeys commands, generalized weakness Psych: calm, cooperative - Constitutional Vitals: Temp Pulse Resp BP Pulse Ox 98.3 F 66 18 113/57 98 04/05/17 05:00 04/05/17 06:00 04/05/17 05:00 04/05/17 06:00 04/05/17 05:00 Plan Follow up with: PRIMARY CAREMD [Primary Care Provider] - 3-5 Days Prescriptions: traMADol [Ultram 50 MG tab] 50 mg PO Q4H PRN #7 tablet PRN Reason: Pain, Moderate (4-6)
[2017-04-05] MEDS: LEVEMIR SUB-Q SCH (09:00)
[2017-04-05 09:01] LABS: BUN/Creatinine Ratio 7.89; Calcium 9.2 mg/dL (8.4-10.2)
[2017-04-05 09:02] LABS: Chloride 86.9 mmol/L (98-107)
[2017-04-05 09:05] LABS: Potassium 6.7 mmol/L (3.6-5.0)
[2017-04-05] MEDS: PEPCID PO SCH (09:07)
[2017-04-05] MEDS: PLAVIX PO SCH (09:08)
[2017-04-05] MEDS: PROCRIT IV PRN (11:40)
--- NOTE | 2017-04-05 12:12 | Progress Note ---
Assessment and Plan Assessment and plan: 66-year-old female presents to the emergency department complaining of chest pain after dialysis. While in triage, the patient went unresponsive, and without a pulse, No palpable pulses were identified. Patient was placed on a cardiac rehabilitation program director and ventricular fibrillation was noted. Patient was defibrillated a single time with 200 J. She received CPR protocol, was intubated and had ROSC, and she was then taken to the ICU. Postarrest ECG was consistent with anterior STEMI. Code STEMI was activated, she was taken to cath lab tech and received angiogram ; stent x 2 in LAD noted to be patent, but had distal LAD spasm Cardiovascular cardiac arrest; Vfib, STEMI, ACS, Distal LAD spasm, cardiogenic shock Cardiology input appreciated, status post cath with patent stents she was rx with amio drip, received heparin ggt x 24 hours, received Dopamine drip for Cardiogenic shock and hypotension,now improved; currently on Lopressor for rate control and now hypertensive -Hypertension. continue antihypertensive medications -Hyperlipidemia- Continue statin therapy -for Lifevest prior to DC, will fup with EP as an outpatient for ICD placement Pulmonary Acute hypoxic respiratory failure, mech vent >96 hours Status post extubation 03/24/17, continue oxygen supplementation and noninvasive positive pressure ventilation as needed GI Nausea/Vomiting- Start on zofran, now resolved Dysphagia has now resolved, continue diet Toxic metabolic encephalopathy EEG was reviewed, seizure is unlikely. 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 -WBC count is slowly downtrending, has completed empiric abx course RENAL/FEN End stage renal disease on hemodialysis. Nephrology following. 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 Diabetes mellitus type 2. Accu-Cheks and sliding scale insulin. Morbid obesity- will pet adoption counselor when clinically improved about lifestyle modification Anemia of CKD. Follow H&H. Transfuse as necessary. DVT heparin subq, Discussed plan with the patient and her daughter Plan for SNIF placement, case management was updated on the plan History Interval history: She is improved, muscle pains are improving, otherwise she denies dysphagia or sob Hospitalist Physical - Physical exam Narrative exam: General: appears well HEENT: MMM, EOMI cardiac: S1-S2 heard lungs: clear to auscultation, abdomen: soft, nontender, nondistended bowel sounds positive extremities: no edema clubbing or cyanosis muscle soreness to palpation all over her body Skin: no rash or lesion Neuro: AAOx3, Left facial droop, LUE focal weakness, moves all extremities, obeys commands, generalized weakness Psych: calm, cooperative - Constitutional Vitals: Temp Pulse Resp BP Pulse Ox 98.8 F 81 18 76/35 0 L 04/05/17 10:45 04/05/17 11:45 04/05/17 10:45 04/05/17 11:45 04/05/17 10:01 General appearance: Present: no acute distress, obese Results - Labs CBC & Chem 7: 04/04/17 05:27 04/05/17 07:56 Labs: Laboratory Last Values WBC 9.0 K/mm3 (4.5-11.0) 04/04/17 05:27 RBC 3.44 M/mm3 (3.65-5.03) L 04/04/17 05:27 Hgb 9.9 gm/dl (10.1-14.3) L 04/04/17 05:27 Hct 31.2 % (30.3-42.9) 04/04/17 05:27 MCV 91 fl (79-97) 04/04/17 05:27 MCH 29 pg (28-32) 04/04/17 05:27 MCHC 32 % (30-34) 04/04/17 05:27 RDW 20.0 % (13.2-15.2) H 04/04/17 05:27 Plt Count 143 K/mm3 (140-440) 04/04/17 05:27 Lymph % (Auto) 12.3 % (13.4-35.0) L 04/04/17 05:27 [place] % (Auto) 14.7 % (0.0-7.3) H 04/04/17 05:27 Eos % (Auto) 1.7 % (0.0-4.3) 04/04/17 05:27 Baso % (Auto) 1.0 % (0.0-1.8) 04/04/17 05:27 Lymph # 1.1 K/mm3 (1.2-5.4) L 04/04/17 05:27 [place] # 1.3 K/mm3 (0.0-0.8) H 04/04/17 05:27 Eos # 0.2 K/mm3 (0.0-0.4) 04/04/17 05:27 Baso # 0.1 K/mm3 (0.0-0.1) 04/04/17 05:27 Add Manual Diff Complete 03/27/17 04:00 Total Counted 100 03/27/17 04:00 Seg Neutrophils % 70.3 % (40.0-70.0) H 04/04/17 05:27 Seg Neuts % (Manual) 78.0 % (40.0-70.0) H 03/27/17 04:00 Band Neutrophils % 1.0 % 03/27/17 04:00 Lymphocytes % (Manual) 13.0 % (13.4-35.0) L 03/27/17 04:00 Reactive Lymphs % (Man) 0 % 03/27/17 04:00 Monocytes % (Manual) 6.0 % (0.0-7.3) 03/27/17 04:00 Eosinophils % (Manual) 2.0 % (0.0-4.3) 03/27/17 04:00 Basophils % (Manual) 0 % (0.0-1.8) 03/27/17 04:00 Metamyelocytes % 0 % 03/27/17 04:00 Myelocytes % 0 % 03/27/17 04:00 Promyelocytes % 0 % 03/27/17 04:00 Blast Cells % 0 % 03/27/17 04:00 Nucleated RBC % Not Reportable 03/27/17 04:00 Seg Neutrophils # 6.3 K/mm3 (1.8-7.7) 04/04/17 05:27 Seg Neutrophils # Man 10.1 K/mm3 (1.8-7.7) H 03/27/17 04:00 Band Neutrophils # 0.1 K/mm3 03/27/17 04:00 Lymphocytes # (Manual) 1.7 K/mm3 (1.2-5.4) 03/27/17 04:00 Abs React Lymphs (Man) 0.0 K/mm3 03/27/17 04:00 Monocytes # (Manual) 0.8 K/mm3 (0.0-0.8) 03/27/17 04:00 Eosinophils # (Manual) 0.3 K/mm3 (0.0-0.4) 03/27/17 04:00 Basophils # (Manual) 0.0 K/mm3 (0.0-0.1) 03/27/17 04:00 Metamyelocytes # 0.0 K/mm3 03/27/17 04:00 Myelocytes # 0.0 K/mm3 03/27/17 04:00 Promyelocytes # 0.0 K/mm3 03/27/17 04:00 Blast Cells # 0.0 K/mm3 03/27/17 04:00 WBC Morphology Not Reportable 03/27/17 04:00 Hypersegmented Neuts Not Reportable 03/27/17 04:00 Hyposegmented Neuts Not Reportable 03/27/17 04:00 Hypogranular Neuts Not Reportable 03/27/17 04:00 Smudge Cells Not Reportable 03/27/17 04:00 Toxic Granulation Not Reportable 03/27/17 04:00 Toxic Vacuolation Not Reportable 03/27/17 04:00 Dohle Bodies Not Reportable 03/27/17 04:00 Pelger-Huet Anomaly Not Reportable 03/27/17 04:00 Tunde Rods Not Reportable 03/27/17 04:00 Platelet Estimate Consistent w auto 03/27/17 04:00 Clumped Platelets Not Reportable 03/27/17 04:00 Plt Clumps, EDTA Not Reportable 03/27/17 04:00 Large Platelets Not Reportable 03/27/17 04:00 Giant Platelets Not Reportable 03/27/17 04:00 Platelet Satelliting Not Reportable 03/27/17 04:00 Plt Morphology Comment Not Reportable 03/27/17 04:00 RBC Morphology Not Reportable 03/27/17 04:00 Dimorphic RBCs Not Reportable 03/27/17 04:00 Polychromasia Few 03/27/17 04:00 Hypochromasia Not Reportable 03/27/17 04:00 Poikilocytosis Not Reportable 03/27/17 04:00 Anisocytosis Not Reportable 03/27/17 04:00 Microcytosis Not Reportable 03/27/17 04:00 Macrocytosis Not Reportable 03/27/17 04:00 Spherocytes Not Reportable 03/27/17 04:00 Pappenheimer Bodies Not Reportable 03/27/17 04:00 Sickle Cells Not Reportable 03/27/17 04:00 Target Cells Not Reportable 03/27/17 04:00 Tear Drop Cells Not Reportable 03/27/17 04:00 Ovalocytes Not Reportable 03/27/17 04:00 Helmet Cells Not Reportable 03/27/17 04:00 [place] Bodies Not Reportable 03/27/17 04:00 [place] Rings Not Reportable 03/27/17 04:00 [place] Cells Not Reportable 03/27/17 04:00 Bite Cells Not Reportable 03/27/17 04:00 Crenated Cell Not Reportable 03/27/17 04:00 Elliptocytes Not Reportable 03/27/17 04:00 Acanthocytes (Spur) Not Reportable 03/27/17 04:00 Rouleaux Not Reportable 03/27/17 04:00 Hemoglobin C Crystals Not Reportable 03/27/17 04:00 Schistocytes Not Reportable 03/27/17 04:00 Malaria parasites Not Reportable 03/27/17 04:00 [place] Bodies Not Reportable 03/27/17 04:00 Hem Pathologist Commnt No 03/27/17 04:00 PT 13.4 Sec. (12.2-14.9) 03/16/17 11:07 INR 1.03 (0.87-1.13) 03/16/17 11:07 APTT 24.1 Sec. (24.2-36.6) L 03/16/17 11:07 Activated Clotting Time 125 (74-137) 03/17/17 08:23 Heparin Anti-Xa Level < 0.10 U.I./ml (0.3-0.7) L 03/17/17 21:12 POC ABG pH 7.466 (7.35-7.45) H 03/30/17 13:21 POC ABG pCO2 37.9 (35-45) 03/30/17 13:21 POC ABG pO2 100 (80-105) 03/30/17 13:21 POC ABG HCO3 27.4 03/30/17 13:21 POC ABG Total CO2 28 03/30/17 13:21 POC ABG O2 Sat 98 03/30/17 13:21 POC ABG Base Excess 4 03/30/17 13:21 FiO2 2 % 03/30/17 13:21 Sodium 126 mmol/L (137-145) L D 04/05/17 07:56 Potassium 6.7 mmol/L (3.6-5.0) H* D 04/05/17 07:56 Chloride 86.9 mmol/L (98-107) L 04/05/17 07:56 Carbon Dioxide 20 mmol/L (22-30) L 04/05/17 07:56 Anion Gap 26 mmol/L 04/05/17 07:56 BUN 60 mg/dL (7-17) H 04/05/17 07:56 Creatinine 7.6 mg/dL (0.7-1.2) H 04/05/17 07:56 Estimated GFR 6 ml/min 04/05/17 07:56 BUN/Creatinine Ratio 7.89 % 04/05/17 07:56 Glucose 118 mg/dL (65-100) H 04/05/17 07:56 POC Glucose 198 (70-105) H 04/05/17 11:59 Lactic Acid 1.50 mmol/L (0.7-2.0) 03/27/17 00:58 Calcium 9.2 mg/dL (8.4-10.2) 04/05/17 07:56 Total Bilirubin 0.50 mg/dL (0.1-1.2) 03/21/17 07:45 AST 23 units/L (5-40) 03/21/17 07:45 ALT 40 units/L (7-56) 03/21/17 07:45 Alkaline Phosphatase 244 units/L (35-129) H 03/21/17 07:45 Ammonia 38.0 umol/L (25-60) 03/18/17 19:02 Total Creatine Kinase 282 units/L (30-135) H 03/16/17 16:36 CK-MB (CK-2) 24.2 ng/mL (0.0-4.0) H 03/16/17 16:36 CK-MB (CK-2) Rel Index 8.5 (0-4) H 03/16/17 16:36 Troponin T 0.656 ng/mL (0.00-0.029) H* D 03/16/17 16:36 C-Reactive Protein 7.90 mg/dL (0.00-1.30) H 03/27/17 00:58 Total Protein 7.3 g/dL (6.3-8.2) 03/21/17 07:45 Albumin 2.8 g/dL (3.9-5) L 03/21/17 07:45 Albumin/Globulin Ratio 0.6 % 03/21/17 07:45 Triglycerides 134 mg/dL (2-149) 03/16/17 11:07 Cholesterol 228 mg/dL (50-199) H 03/16/17 11:07 LDL Cholesterol Direct 165 mg/dL (50-130) H 03/16/17 11:07 HDL Cholesterol 37 mg/dL (40-59) L 03/16/17 11:07 Cholesterol/HDL Ratio 6.16 % 03/16/17 11:07 TSH 0.746 mlU/mL (0.270-4.200) 03/18/17 19:02 Random Vancomycin 20.9 ug/mL (0-40.0) 03/22/17 07:40 Hepatitis A IgM Ab Non-reactive (NonReactive) 03/19/17 04:31 Hep Bs Antigen Non-reactive (Negative) 03/19/17 04:31 Hep B Core IgM Ab Non-reactive (NonReactive) 03/19/17 04:31 Hepatitis C Antibody Non-reactive (NonReactive) 03/19/17 04:31 Blood Type A POSITIVE 03/16/17 16:36 Antibody Screen TNR 03/16/17 16:36 CLAIR Antibody Screen Negative 03/16/17 16:36
[2017-04-05 12:30] LABS: Hematocrit 28.8 % (30.3-42.9); Hemoglobin 9.2 gm/dl (10.1-14.3); Mean Corpuscular HGB Conc 32 % (30-34); Mean Corpuscular Hemoglobin 29 pg (28-32); Mean Corpuscular Volume 91 fl (79-97); Platelet Count 105 K/mm3 (140-440); Red Blood Count 3.18 M/mm3 (3.65-5.03); White Blood Count 10.1 K/mm3 (4.5-11.0)
[2017-04-05 12:36] LABS: Red Cell Distribution Width 20.2 % (13.2-15.2)
--- NOTE | 2017-04-05 13:00 | Progress Note ---
Assessment and Plan - Patient Problems (1) Acute hypoxemic respiratory failure Current Visit: Yes Status: Resolved (2) ESRD on dialysis Current Visit: Yes Status: Acute (3) Obesity (BMI 30-39.9) Current Visit: Yes Status: Chronic (4) Sepsis syndrome Current Visit: Yes Status: Acute (5) STEMI (ST elevation myocardial infarction) Current Visit: Yes Status: Acute Qualifiers: Involved coronary artery: unspecified coronary artery Qualified Code(s): I21.3 - ST elevation (STEMI) myocardial infarction of unspecified site (6) Type 2 diabetes mellitus Current Visit: No Status: Chronic Qualifiers: Diabetes mellitus complication status: D Diabetes mellitus complication detail: D Diabetic retinopathy severity: D Proliferative retinopathy type: P Diabetes mellitus macular edema: D Diabetes mellitus intermediate teacher insulin use : D Laterality: L Chronic kidney disease stage: C (7) Acute encephalopathy Current Visit: Yes Status: Acute (8) Discharge planning issues Current Visit: Yes Status: Acute Subjective Date of service: 04/05/17 Principal diagnosis: Acute Hypoxemic Resp Failure; STEMI Interval history: Seen and examined at bedside; 24 hour events reviewed; nursing and respiratory care staff consulted; no adverse overnight events reported to me; Objective Vital Signs - 12hr 04/05/17 04/05/17 04/05/17 05:00 06:00 10:01 Temperature 98.3 F 98.1 F Pulse Rate 66 Pulse Rate [ 77 73 Right Radial] Respiratory 18 16 Rate Blood Pressure 113/57 Blood Pressure 113/57 125/58 [Right Arm] O2 Sat by Pulse 98 0 L Oximetry 04/05/17 04/05/17 04/05/17 10:15 10:30 10:45 Temperature 98.8 F Pulse Rate 72 78 82 Pulse Rate [ Right Radial] Respiratory 18 Rate Blood Pressure 96/44 100/52 90/48 Blood Pressure [Right Arm] O2 Sat by Pulse Oximetry 04/05/17 04/05/17 04/05/17 11:00 11:15 11:30 Temperature Pulse Rate 78 79 81 Pulse Rate [ Right Radial] Respiratory Rate Blood Pressure 93/47 104/52 101/47 Blood Pressure [Right Arm] O2 Sat by Pulse Oximetry 04/05/17 04/05/17 04/05/17 11:45 11:55 12:00 Temperature Pulse Rate 81 78 78 Pulse Rate [ Right Radial] Respiratory Rate Blood Pressure 76/35 96/40 85/43 Blood Pressure [Right Arm] O2 Sat by Pulse Oximetry 04/05/17 04/05/17 04/05/17 12:05 12:15 12:30 Temperature Pulse Rate 78 78 78 Pulse Rate [ Right Radial] Respiratory Rate Blood Pressure 89/37 96/43 92/41 Blood Pressure [Right Arm] O2 Sat by Pulse Oximetry Constitutional: no acute distress, alert, other Eyes: non-icteric ENT: oropharynx moist Neck: supple, no lymphadenopathy, no JVD Effort: mildly labored Ascultation: Bilateral: clear, diminished breath sounds, rales (scant in bases) Cardiovascular: regular rate and rhythm Gastrointestinal: normoactive bowel sounds, soft, non-tender, non-distended Integumentary: normal, other (Femoral CVC) Extremities: no cyanosis, no edema, pulses normal, no ischemia or petechiae Neurologic: normal mental status, non-focal exam (Moves all extremities, tracks my voice, attempts to vocalize in response to questions), pupils equal and round , motor strength normal and, other (very weak) Psychiatric: mood appropriate, affect normal, depressed CBC and BMP: 04/05/17 12:23 04/05/17 12:23 ABG, PT/INR, D-dimer: ABG POC ABG pH 7.466 (7.35-7.45) H 03/30/17 13:21 POC ABG pCO2 37.9 (35-45) 03/30/17 13:21 POC ABG pO2 100 (80-105) 03/30/17 13:21 POC ABG HCO3 27.4 03/30/17 13:21 POC ABG Total CO2 28 03/30/17 13:21 POC ABG O2 Sat 98 03/30/17 13:21 PT/INR, D-dimer PT 13.4 Sec. (12.2-14.9) 03/16/17 11:07 INR 1.03 (0.87-1.13) 03/16/17 11:07 Abnormal lab findings: Abnormal Labs 03/16/17 03/16/17 03/17/17 16:36 18:00 03:42 WBC 20.6 H RBC Hgb Hct RDW 17.3 H Plt Count Lymph % (Auto) [place] % (Auto) Lymph # [place] # Seg Neutrophils % Seg Neuts % (Manual) 84.0 H Lymphocytes % (Manual) 3.0 L Monocytes % (Manual) 11.0 H Seg Neutrophils # Seg Neutrophils # Man 17.3 H Lymphocytes # (Manual) 0.6 L Monocytes # (Manual) 2.3 H Heparin Anti-Xa Level POC ABG pH 7.336 L POC ABG pCO2 47.9 H POC ABG pO2 189 H Sodium Potassium Chloride Carbon Dioxide BUN Creatinine Glucose POC Glucose Calcium ALT Alkaline Phosphatase Total Creatine Kinase 282 H CK-MB (CK-2) 24.2 H CK-MB (CK-2) Rel Index 8.5 H Troponin T 0.656 H* D C-Reactive Protein Albumin 03/17/17 03/17/17 03/17/17 03:42 04:21 17:15 WBC RBC Hgb Hct RDW Plt Count Lymph % (Auto) [place] % (Auto) Lymph # [place] # Seg Neutrophils % Seg Neuts % (Manual) Lymphocytes % (Manual) Monocytes % (Manual) Seg Neutrophils # Seg Neutrophils # Man Lymphocytes # (Manual) Monocytes # (Manual) Heparin Anti-Xa Level 0.10 L POC ABG pH POC ABG pCO2 POC ABG pO2 Sodium 131 L Potassium 5.3 H D Chloride 89.5 L Carbon Dioxide 21 L BUN 39 H Creatinine 7.0 H Glucose 151 H POC Glucose Calcium ALT Alkaline Phosphatase Total Creatine Kinase CK-MB (CK-2) CK-MB (CK-2) Rel Index Troponin T C-Reactive Protein 33.90 H Albumin 03/17/17 03/18/17 03/18/17 21:12 03:33 03:33 WBC 17.6 H RBC 3.59 L Hgb Hct RDW 16.9 H Plt Count Lymph % (Auto) 4.2 L [place] % (Auto) 11.8 H Lymph # 0.7 L [place] # 2.1 H Seg Neutrophils % 83.3 H Seg Neuts % (Manual) Lymphocytes % (Manual) Monocytes % (Manual) Seg Neutrophils # 14.7 H Seg Neutrophils # Man Lymphocytes # (Manual) Monocytes # (Manual) Heparin Anti-Xa Level < 0.10 L POC ABG pH POC ABG pCO2 POC ABG pO2 Sodium 127 L Potassium 6.1 H* Chloride 87.2 L Carbon Dioxide BUN 55 H Creatinine 8.7 H Glucose 140 H POC Glucose Calcium ALT Alkaline Phosphatase Total Creatine Kinase CK-MB (CK-2) CK-MB (CK-2) Rel Index Troponin T C-Reactive Protein Albumin 03/18/17 03/18/17 03/19/17 04:34 22:15 00:04 WBC RBC Hgb Hct RDW Plt Count Lymph % (Auto) [place] % (Auto) Lymph # [place] # Seg Neutrophils % Seg Neuts % (Manual) Lymphocytes % (Manual) Monocytes % (Manual) Seg Neutrophils # Seg Neutrophils # Man Lymphocytes # (Manual) Monocytes # (Manual) Heparin Anti-Xa Level POC ABG pH 7.289 L POC ABG pCO2 48.7 H POC ABG pO2 Sodium Potassium 5.6 H Chloride Carbon Dioxide BUN Creatinine Glucose POC Glucose 108 H Calcium ALT Alkaline Phosphatase Total Creatine Kinase CK-MB (CK-2) CK-MB (CK-2) Rel Index Troponin T C-Reactive Protein Albumin 03/19/17 03/19/17 03/19/17 05:22 08:00 08:00 WBC 16.3 H RBC 3.15 L Hgb 8.8 L Hct 27.3 L RDW 17.4 H Plt Count Lymph % (Auto) 3.4 L [place] % (Auto) 10.1 H Lymph # 0.5 L [place] # 1.7 H Seg Neutrophils % 85.4 H Seg Neuts % (Manual) Lymphocytes % (Manual) Monocytes % (Manual) Seg Neutrophils # 13.9 H Seg Neutrophils # Man Lymphocytes # (Manual) Monocytes # (Manual) Heparin Anti-Xa Level POC ABG pH POC ABG pCO2 POC ABG pO2 Sodium 131 L Potassium Chloride 89.3 L Carbon Dioxide BUN 56 H Creatinine 7.8 H Glucose 122 H POC Glucose 146 H Calcium ALT 59 H Alkaline Phosphatase 208 H Total Creatine Kinase CK-MB (CK-2) CK-MB (CK-2) Rel Index Troponin T C-Reactive Protein Albumin 2.6 L 03/19/17 03/19/17 03/19/17 08:06 11:50 17:36 WBC RBC Hgb Hct RDW Plt Count Lymph % (Auto) [place] % (Auto) Lymph # [place] # Seg Neutrophils % Seg Neuts % (Manual) Lymphocytes % (Manual) Monocytes % (Manual) Seg Neutrophils # Seg Neutrophils # Man Lymphocytes # (Manual) Monocytes # (Manual) Heparin Anti-Xa Level POC ABG pH 7.338 L POC ABG pCO2 49.2 H POC ABG pO2 110 H Sodium Potassium Chloride Carbon Dioxide BUN Creatinine Glucose POC Glucose 172 H 152 H Calcium ALT Alkaline Phosphatase Total Creatine Kinase CK-MB (CK-2) CK-MB (CK-2) Rel Index Troponin T C-Reactive Protein Albumin 03/20/17 03/20/17 03/20/17 00:14 04:15 05:06 WBC RBC Hgb Hct RDW Plt Count Lymph % (Auto) [place] % (Auto) Lymph # [place] # Seg Neutrophils % Seg Neuts % (Manual) Lymphocytes % (Manual) Monocytes % (Manual) Seg Neutrophils # Seg Neutrophils # Man Lymphocytes # (Manual) Monocytes # (Manual) Heparin Anti-Xa Level POC ABG pH 7.288 L POC ABG pCO2 51.4 H POC ABG pO2 Sodium Potassium Chloride Carbon Dioxide BUN Creatinine Glucose POC Glucose 132 H 166 H Calcium ALT Alkaline Phosphatase Total Creatine Kinase CK-MB (CK-2) CK-MB (CK-2) Rel Index Troponin T C-Reactive Protein Albumin 03/20/17 03/20/17 03/20/17 12:07 15:45 17:41 WBC RBC Hgb Hct RDW Plt Count Lymph % (Auto) [place] % (Auto) Lymph # [place] # Seg Neutrophils % Seg Neuts % (Manual) Lymphocytes % (Manual) Monocytes % (Manual) Seg Neutrophils # Seg Neutrophils # Man Lymphocytes # (Manual) Monocytes # (Manual) Heparin Anti-Xa Level POC ABG pH POC ABG pCO2 POC ABG pO2 Sodium Potassium Chloride Carbon Dioxide BUN Creatinine Glucose POC Glucose 193 H 172 H 156 H Calcium ALT Alkaline Phosphatase Total Creatine Kinase CK-MB (CK-2) CK-MB (CK-2) Rel Index Troponin T C-Reactive Protein Albumin 03/20/17 03/21/17 03/21/17 23:13 04:42 05:41 WBC RBC Hgb Hct RDW Plt Count Lymph % (Auto) [place] % (Auto) Lymph # [place] # Seg Neutrophils % Seg Neuts % (Manual) Lymphocytes % (Manual) Monocytes % (Manual) Seg Neutrophils # Seg Neutrophils # Man Lymphocytes # (Manual) Monocytes # (Manual) Heparin Anti-Xa Level POC ABG pH 7.321 L POC ABG pCO2 56.8 H POC ABG pO2 73 L Sodium Potassium Chloride Carbon Dioxide BUN Creatinine Glucose POC Glucose 141 H 159 H Calcium ALT Alkaline Phosphatase Total Creatine Kinase CK-MB (CK-2) CK-MB (CK-2) Rel Index Troponin T C-Reactive Protein Albumin 03/21/17 03/21/17 03/21/17 07:45 07:45 12:16 WBC 15.1 H RBC 3.32 L Hgb 9.2 L Hct 28.9 L RDW 17.4 H Plt Count Lymph % (Auto) 4.7 L [place] % (Auto) 16.0 H Lymph # 0.7 L [place] # 2.4 H Seg Neutrophils % 78.6 H Seg Neuts % (Manual) Lymphocytes % (Manual) Monocytes % (Manual) Seg Neutrophils # 11.8 H Seg Neutrophils # Man Lymphocytes # (Manual) Monocytes # (Manual) Heparin Anti-Xa Level POC ABG pH POC ABG pCO2 POC ABG pO2 Sodium Potassium Chloride 95.4 L Carbon Dioxide BUN 55 H Creatinine 6.9 H Glucose 188 H POC Glucose 226 H Calcium ALT Alkaline Phosphatase 244 H Total Creatine Kinase CK-MB (CK-2) CK-MB (CK-2) Rel Index Troponin T C-Reactive Protein Albumin 2.8 L 03/21/17 03/21/17 03/22/17 17:17 23:28 04:49 WBC RBC Hgb Hct RDW Plt Count Lymph % (Auto) [place] % (Auto) Lymph # [place] # Seg Neutrophils % Seg Neuts % (Manual) Lymphocytes % (Manual) Monocytes % (Manual) Seg Neutrophils # Seg Neutrophils # Man Lymphocytes # (Manual) Monocytes # (Manual) Heparin Anti-Xa Level POC ABG pH 7.323 L POC ABG pCO2 49.5 H POC ABG pO2 77 L Sodium Potassium Chloride Carbon Dioxide BUN Creatinine Glucose POC Glucose 192 H 199 H Calcium ALT Alkaline Phosphatase Total Creatine Kinase CK-MB (CK-2) CK-MB (CK-2) Rel Index Troponin T C-Reactive Protein Albumin 03/22/17 03/22/17 03/22/17 06:13 07:40 07:40 WBC 16.4 H RBC 3.29 L Hgb 9.1 L Hct 28.4 L RDW 17.3 H Plt Count Lymph % (Auto) [place] % (Auto) Lymph # [place] # Seg Neutrophils % Seg Neuts % (Manual) 73.0 H Lymphocytes % (Manual) 8.0 L Monocytes % (Manual) 14.0 H Seg Neutrophils # Seg Neutrophils # Man 12.0 H Lymphocytes # (Manual) Monocytes # (Manual) 2.3 H Heparin Anti-Xa Level POC ABG pH POC ABG pCO2 POC ABG pO2 Sodium Potassium Chloride 94.8 L Carbon Dioxide 21 L BUN 84 H Creatinine 9.4 H Glucose 188 H POC Glucose 190 H Calcium ALT Alkaline Phosphatase Total Creatine Kinase CK-MB (CK-2) CK-MB (CK-2) Rel Index Troponin T C-Reactive Protein Albumin 03/22/17 03/22/17 03/22/17 11:43 17:38 23:56 WBC RBC Hgb Hct RDW Plt Count Lymph % (Auto) [place] % (Auto) Lymph # [place] # Seg Neutrophils % Seg Neuts % (Manual) Lymphocytes % (Manual) Monocytes % (Manual) Seg Neutrophils # Seg Neutrophils # Man Lymphocytes # (Manual) Monocytes # (Manual) Heparin Anti-Xa Level POC ABG pH POC ABG pCO2 POC ABG pO2 Sodium Potassium Chloride Carbon Dioxide BUN Creatinine Glucose POC Glucose 149 H 168 H 229 H Calcium ALT Alkaline Phosphatase Total Creatine Kinase CK-MB (CK-2) CK-MB (CK-2) Rel Index Troponin T C-Reactive Protein Albumin 03/23/17 03/23/17 03/23/17 05:00 05:00 05:21 WBC 14.0 H RBC 3.09 L Hgb 8.5 L Hct 27.0 L RDW 17.8 H Plt Count Lymph % (Auto) [place] % (Auto) Lymph # [place] # Seg Neutrophils % Seg Neuts % (Manual) Lymphocytes % (Manual) 11.0 L Monocytes % (Manual) 13.0 H Seg Neutrophils # Seg Neutrophils # Man 9.2 H Lymphocytes # (Manual) Monocytes # (Manual) 1.8 H Heparin Anti-Xa Level POC ABG pH POC ABG pCO2 POC ABG pO2 Sodium Potassium Chloride 94.5 L Carbon Dioxide BUN 76 H Creatinine 7.5 H Glucose 192 H POC Glucose 195 H Calcium ALT Alkaline Phosphatase Total Creatine Kinase CK-MB (CK-2) CK-MB (CK-2) Rel Index Troponin T C-Reactive Protein Albumin 03/23/17 03/23/17 03/23/17 12:15 17:47 23:27 WBC RBC Hgb Hct RDW Plt Count Lymph % (Auto) [place] % (Auto) Lymph # [place] # Seg Neutrophils % Seg Neuts % (Manual) Lymphocytes % (Manual) Monocytes % (Manual) Seg Neutrophils # Seg Neutrophils # Man Lymphocytes # (Manual) Monocytes # (Manual) Heparin Anti-Xa Level POC ABG pH POC ABG pCO2 POC ABG pO2 Sodium Potassium Chloride Carbon Dioxide BUN Creatinine Glucose POC Glucose 162 H 137 H 221 H Calcium ALT Alkaline Phosphatase Total Creatine Kinase CK-MB (CK-2) CK-MB (CK-2) Rel Index Troponin T C-Reactive Protein Albumin 03/24/17 03/24/17 03/24/17 05:42 08:49 08:49 WBC RBC 2.99 L Hgb 8.5 L Hct 25.9 L RDW 18.1 H Plt Count Lymph % (Auto) [place] % (Auto) Lymph # [place] # Seg Neutrophils % Seg Neuts % (Manual) 83.0 H Lymphocytes % (Manual) 6.0 L Monocytes % (Manual) Seg Neutrophils # Seg Neutrophils # Man 8.5 H Lymphocytes # (Manual) 0.6 L Monocytes # (Manual) Heparin Anti-Xa Level POC ABG pH POC ABG pCO2 POC ABG pO2 Sodium Potassium Chloride 95.4 L Carbon Dioxide BUN 108 H Creatinine 9.4 H Glucose 203 H POC Glucose 216 H Calcium ALT Alkaline Phosphatase Total Creatine Kinase CK-MB (CK-2) CK-MB (CK-2) Rel Index Troponin T C-Reactive Protein Albumin 03/24/17 03/24/17 03/24/17 11:21 17:32 23:37 WBC RBC Hgb Hct RDW Plt Count Lymph % (Auto) [place] % (Auto) Lymph # [place] # Seg Neutrophils % Seg Neuts % (Manual) Lymphocytes % (Manual) Monocytes % (Manual) Seg Neutrophils # Seg Neutrophils # Man Lymphocytes # (Manual) Monocytes # (Manual) Heparin Anti-Xa Level POC ABG pH POC ABG pCO2 POC ABG pO2 Sodium Potassium Chloride Carbon Dioxide BUN Creatinine Glucose POC Glucose 185 H 138 H 218 H Calcium ALT Alkaline Phosphatase Total Creatine Kinase CK-MB (CK-2) CK-MB (CK-2) Rel Index Troponin T C-Reactive Protein Albumin 03/25/17 03/25/17 03/25/17 04:38 04:38 05:24 WBC RBC 3.27 L Hgb 9.3 L Hct 29.8 L RDW 18.4 H Plt Count Lymph % (Auto) [place] % (Auto) Lymph # [place] # Seg Neutrophils % Seg Neuts % (Manual) 78.0 H Lymphocytes % (Manual) 10.0 L Monocytes % (Manual) 9.0 H Seg Neutrophils # Seg Neutrophils # Man Lymphocytes # (Manual) 0.8 L Monocytes # (Manual) Heparin Anti-Xa Level POC ABG pH POC ABG pCO2 POC ABG pO2 Sodium 136 L Potassium Chloride 92.5 L Carbon Dioxide 17 L BUN 124 H Creatinine 9.7 H Glucose 217 H POC Glucose 211 H Calcium ALT Alkaline Phosphatase Total Creatine Kinase CK-MB (CK-2) CK-MB (CK-2) Rel Index Troponin T C-Reactive Protein Albumin 03/25/17 03/25/17 03/25/17 11:53 17:15 20:12 WBC RBC Hgb Hct RDW Plt Count Lymph % (Auto) [place] % (Auto) Lymph # [place] # Seg Neutrophils % Seg Neuts % (Manual) Lymphocytes % (Manual) Monocytes % (Manual) Seg Neutrophils # Seg Neutrophils # Man Lymphocytes # (Manual) Monocytes # (Manual) Heparin Anti-Xa Level POC ABG pH 7.469 H POC ABG pCO2 POC ABG pO2 69 L Sodium Potassium Chloride Carbon Dioxide BUN Creatinine Glucose POC Glucose 165 H 173 H Calcium ALT Alkaline Phosphatase Total Creatine Kinase CK-MB (CK-2) CK-MB (CK-2) Rel Index Troponin T C-Reactive Protein Albumin 03/25/17 03/26/17 03/26/17 23:32 05:59 06:03 WBC RBC Hgb Hct RDW Plt Count Lymph % (Auto) [place] % (Auto) Lymph # [place] # Seg Neutrophils % Seg Neuts % (Manual) Lymphocytes % (Manual) Monocytes % (Manual) Seg Neutrophils # Seg Neutrophils # Man Lymphocytes # (Manual) Monocytes # (Manual) Heparin Anti-Xa Level POC ABG pH POC ABG pCO2 POC ABG pO2 Sodium 136 L Potassium Chloride 91.6 L Carbon Dioxide 20 L BUN 97 H Creatinine 8.0 H Glucose 239 H POC Glucose 231 H 214 H Calcium ALT Alkaline Phosphatase Total Creatine Kinase CK-MB (CK-2) CK-MB (CK-2) Rel Index Troponin T C-Reactive Protein Albumin 03/26/17 03/26/17 03/26/17 12:55 18:14 23:27 WBC RBC Hgb Hct RDW Plt Count Lymph % (Auto) [place] % (Auto) Lymph # [place] # Seg Neutrophils % Seg Neuts % (Manual) Lymphocytes % (Manual) Monocytes % (Manual) Seg Neutrophils # Seg Neutrophils # Man Lymphocytes # (Manual) Monocytes # (Manual) Heparin Anti-Xa Level POC ABG pH POC ABG pCO2 POC ABG pO2 Sodium Potassium Chloride Carbon Dioxide BUN Creatinine Glucose POC Glucose 220 H 236 H 221 H Calcium ALT Alkaline Phosphatase Total Creatine Kinase CK-MB (CK-2) CK-MB (CK-2) Rel Index Troponin T C-Reactive Protein Albumin 03/27/17 03/27/17 03/27/17 00:58 04:00 04:00 WBC 12.9 H RBC 3.33 L Hgb 9.2 L Hct 29.0 L RDW 18.0 H Plt Count Lymph % (Auto) [place] % (Auto) Lymph # [place] # Seg Neutrophils % Seg Neuts % (Manual) 78.0 H Lymphocytes % (Manual) 13.0 L Monocytes % (Manual) Seg Neutrophils # Seg Neutrophils # Man 10.1 H Lymphocytes # (Manual) Monocytes # (Manual) Heparin Anti-Xa Level POC ABG pH POC ABG pCO2 POC ABG pO2 Sodium Potassium Chloride 91.8 L Carbon Dioxide BUN 108 H Creatinine 9.0 H Glucose 237 H POC Glucose Calcium ALT Alkaline Phosphatase Total Creatine Kinase CK-MB (CK-2) CK-MB (CK-2) Rel Index Troponin T C-Reactive Protein 7.90 H Albumin 03/27/17 03/27/17 03/27/17 05:24 11:17 17:40 WBC RBC Hgb Hct RDW Plt Count Lymph % (Auto) [place] % (Auto) Lymph # [place] # Seg Neutrophils % Seg Neuts % (Manual) Lymphocytes % (Manual) Monocytes % (Manual) Seg Neutrophils # Seg Neutrophils # Man Lymphocytes # (Manual) Monocytes # (Manual) Heparin Anti-Xa Level POC ABG pH POC ABG pCO2 POC ABG pO2 Sodium Potassium Chloride Carbon Dioxide BUN Creatinine Glucose POC Glucose 231 H 172 H 223 H Calcium ALT Alkaline Phosphatase Total Creatine Kinase CK-MB (CK-2) CK-MB (CK-2) Rel Index Troponin T C-Reactive Protein Albumin 03/27/17 03/28/17 03/28/17 23:49 05:40 11:51 WBC RBC Hgb Hct RDW Plt Count Lymph % (Auto) [place] % (Auto) Lymph # [place] # Seg Neutrophils % Seg Neuts % (Manual) Lymphocytes % (Manual) Monocytes % (Manual) Seg Neutrophils # Seg Neutrophils # Man Lymphocytes # (Manual) Monocytes # (Manual) Heparin Anti-Xa Level POC ABG pH POC ABG pCO2 POC ABG pO2 Sodium Potassium Chloride Carbon Dioxide BUN Creatinine Glucose POC Glucose 184 H 212 H 187 H Calcium ALT Alkaline Phosphatase Total Creatine Kinase CK-MB (CK-2) CK-MB (CK-2) Rel Index Troponin T C-Reactive Protein Albumin 03/28/17 03/29/17 03/29/17 17:11 00:25 05:28 WBC RBC Hgb Hct RDW Plt Count Lymph % (Auto) [place] % (Auto) Lymph # [place] # Seg Neutrophils % Seg Neuts % (Manual) Lymphocytes % (Manual) Monocytes % (Manual) Seg Neutrophils # Seg Neutrophils # Man Lymphocytes # (Manual) Monocytes # (Manual) Heparin Anti-Xa Level POC ABG pH POC ABG pCO2 POC ABG pO2 Sodium Potassium Chloride Carbon Dioxide BUN Creatinine Glucose POC Glucose 177 H 147 H 143 H Calcium ALT Alkaline Phosphatase Total Creatine Kinase CK-MB (CK-2) CK-MB (CK-2) Rel Index Troponin T C-Reactive Protein Albumin 03/29/17 03/30/17 03/30/17 17:46 06:06 10:42 WBC RBC Hgb Hct RDW Plt Count Lymph % (Auto) [place] % (Auto) Lymph # [place] # Seg Neutrophils % Seg Neuts % (Manual) Lymphocytes % (Manual) Monocytes % (Manual) Seg Neutrophils # Seg Neutrophils # Man Lymphocytes # (Manual) Monocytes # (Manual) Heparin Anti-Xa Level POC ABG pH POC ABG pCO2 POC ABG pO2 Sodium Potassium Chloride Carbon Dioxide BUN Creatinine Glucose POC Glucose 184 H 294 H 299 H Calcium ALT Alkaline Phosphatase Total Creatine Kinase CK-MB (CK-2) CK-MB (CK-2) Rel Index Troponin T C-Reactive Protein Albumin 03/30/17 03/30/17 03/30/17 13:21 16:38 19:48 WBC RBC Hgb Hct RDW Plt Count Lymph % (Auto) [place] % (Auto) Lymph # [place] # Seg Neutrophils % Seg Neuts % (Manual) Lymphocytes % (Manual) Monocytes % (Manual) Seg Neutrophils # Seg Neutrophils # Man Lymphocytes # (Manual) Monocytes # (Manual) Heparin Anti-Xa Level POC ABG pH 7.466 H POC ABG pCO2 POC ABG pO2 Sodium Potassium Chloride Carbon Dioxide BUN Creatinine Glucose POC Glucose 230 H 277 H Calcium ALT Alkaline Phosphatase Total Creatine Kinase CK-MB (CK-2) CK-MB (CK-2) Rel Index Troponin T C-Reactive Protein Albumin 03/30/17 03/31/17 03/31/17 23:28 05:49 17:13 WBC RBC Hgb Hct RDW Plt Count Lymph % (Auto) [place] % (Auto) Lymph # [place] # Seg Neutrophils % Seg Neuts % (Manual) Lymphocytes % (Manual) Monocytes % (Manual) Seg Neutrophils # Seg Neutrophils # Man Lymphocytes # (Manual) Monocytes # (Manual) Heparin Anti-Xa Level POC ABG pH POC ABG pCO2 POC ABG pO2 Sodium Potassium Chloride Carbon Dioxide BUN Creatinine Glucose POC Glucose 203 H 261 H 227 H Calcium ALT Alkaline Phosphatase Total Creatine Kinase CK-MB (CK-2) CK-MB (CK-2) Rel Index Troponin T C-Reactive Protein Albumin 03/31/17 04/01/17 04/01/17 19:32 00:39 05:51 WBC RBC Hgb Hct RDW Plt Count Lymph % (Auto) [place] % (Auto) Lymph # [place] # Seg Neutrophils % Seg Neuts % (Manual) Lymphocytes % (Manual) Monocytes % (Manual) Seg Neutrophils # Seg Neutrophils # Man Lymphocytes # (Manual) Monocytes # (Manual) Heparin Anti-Xa Level POC ABG pH POC ABG pCO2 POC ABG pO2 Sodium Potassium Chloride Carbon Dioxide BUN Creatinine Glucose POC Glucose 238 H 147 H 185 H Calcium ALT Alkaline Phosphatase Total Creatine Kinase CK-MB (CK-2) CK-MB (CK-2) Rel Index Troponin T C-Reactive Protein Albumin 04/01/17 04/01/17 04/01/17 12:00 12:17 23:23 WBC RBC Hgb Hct RDW Plt Count Lymph % (Auto) [place] % (Auto) Lymph # [place] # Seg Neutrophils % Seg Neuts % (Manual) Lymphocytes % (Manual) Monocytes % (Manual) Seg Neutrophils # Seg Neutrophils # Man Lymphocytes # (Manual) Monocytes # (Manual) Heparin Anti-Xa Level POC ABG pH POC ABG pCO2 POC ABG pO2 Sodium 136 L Potassium 5.4 H Chloride 88.3 L Carbon Dioxide 20 L BUN 110 H Creatinine 10.8 H Glucose 209 H POC Glucose 261 H 302 H Calcium ALT Alkaline Phosphatase Total Creatine Kinase CK-MB (CK-2) CK-MB (CK-2) Rel Index Troponin T C-Reactive Protein Albumin 04/02/17 04/02/17 04/02/17 05:16 06:40 06:40 WBC RBC Hgb Hct RDW 19.6 H Plt Count Lymph % (Auto) 8.5 L [place] % (Auto) 12.8 H Lymph # 0.8 L [place] # 1.2 H Seg Neutrophils % 76.4 H Seg Neuts % (Manual) Lymphocytes % (Manual) Monocytes % (Manual) Seg Neutrophils # Seg Neutrophils # Man Lymphocytes # (Manual) Monocytes # (Manual) Heparin Anti-Xa Level POC ABG pH POC ABG pCO2 POC ABG pO2 Sodium Potassium 5.3 H Chloride 91.0 L Carbon Dioxide BUN 50 H Creatinine 6.0 H Glucose 183 H POC Glucose 213 H Calcium 10.8 H ALT Alkaline Phosphatase Total Creatine Kinase CK-MB (CK-2) CK-MB (CK-2) Rel Index Troponin T C-Reactive Protein Albumin 04/02/17 04/02/17 04/03/17 11:53 19:03 00:01 WBC RBC Hgb Hct RDW Plt Count Lymph % (Auto) [place] % (Auto) Lymph # [place] # Seg Neutrophils % Seg Neuts % (Manual) Lymphocytes % (Manual) Monocytes % (Manual) Seg Neutrophils # Seg Neutrophils # Man Lymphocytes # (Manual) Monocytes # (Manual) Heparin Anti-Xa Level POC ABG pH POC ABG pCO2 POC ABG pO2 Sodium Potassium Chloride Carbon Dioxide BUN Creatinine Glucose POC Glucose 203 H 260 H 147 H Calcium ALT Alkaline Phosphatase Total Creatine Kinase CK-MB (CK-2) CK-MB (CK-2) Rel Index Troponin T C-Reactive Protein Albumin 04/03/17 04/03/17 04/03/17 06:09 07:03 07:03 WBC RBC Hgb Hct RDW 20.3 H Plt Count Lymph % (Auto) 13.2 L [place] % (Auto) 14.5 H Lymph # 1.0 L [place] # 1.1 H Seg Neutrophils % Seg Neuts % (Manual) Lymphocytes % (Manual) Monocytes % (Manual) Seg Neutrophils # Seg Neutrophils # Man Lymphocytes # (Manual) Monocytes # (Manual) Heparin Anti-Xa Level POC ABG pH POC ABG pCO2 POC ABG pO2 Sodium 133 L Potassium 6.2 H* Chloride 88.3 L Carbon Dioxide BUN 68 H Creatinine 7.5 H Glucose 138 H POC Glucose 154 H Calcium ALT Alkaline Phosphatase Total Creatine Kinase CK-MB (CK-2) CK-MB (CK-2) Rel Index Troponin T C-Reactive Protein Albumin 04/03/17 04/04/17 04/04/17 18:19 00:26 05:27 WBC RBC 3.44 L Hgb 9.9 L Hct RDW 20.0 H Plt Count Lymph % (Auto) 12.3 L [place] % (Auto) 14.7 H Lymph # 1.1 L [place] # 1.3 H Seg Neutrophils % 70.3 H Seg Neuts % (Manual) Lymphocytes % (Manual) Monocytes % (Manual) Seg Neutrophils # Seg Neutrophils # Man Lymphocytes # (Manual) Monocytes # (Manual) Heparin Anti-Xa Level POC ABG pH POC ABG pCO2 POC ABG pO2 Sodium Potassium Chloride Carbon Dioxide BUN Creatinine Glucose POC Glucose 331 H 230 H Calcium ALT Alkaline Phosphatase Total Creatine Kinase CK-MB (CK-2) CK-MB (CK-2) Rel Index Troponin T C-Reactive Protein Albumin 04/04/17 04/04/17 04/04/17 05:27 07:09 12:14 WBC RBC Hgb Hct RDW Plt Count Lymph % (Auto) [place] % (Auto) Lymph # [place] # Seg Neutrophils % Seg Neuts % (Manual) Lymphocytes % (Manual) Monocytes % (Manual) Seg Neutrophils # Seg Neutrophils # Man Lymphocytes # (Manual) Monocytes # (Manual) Heparin Anti-Xa Level POC ABG pH POC ABG pCO2 POC ABG pO2 Sodium 134 L Potassium Chloride Carbon Dioxide BUN 42 H Creatinine 6.0 H Glucose 175 H POC Glucose 171 H 217 H Calcium ALT Alkaline Phosphatase Total Creatine Kinase CK-MB (CK-2) CK-MB (CK-2) Rel Index Troponin T C-Reactive Protein Albumin 04/04/17 04/04/17 04/05/17 17:23 23:29 05:48 WBC RBC Hgb Hct RDW Plt Count Lymph % (Auto) [place] % (Auto) Lymph # [place] # Seg Neutrophils % Seg Neuts % (Manual) Lymphocytes % (Manual) Monocytes % (Manual) Seg Neutrophils # Seg Neutrophils # Man Lymphocytes # (Manual) Monocytes # (Manual) Heparin Anti-Xa Level POC ABG pH POC ABG pCO2 POC ABG pO2 Sodium Potassium Chloride Carbon Dioxide BUN Creatinine Glucose POC Glucose 168 H 188 H 114 H Calcium ALT Alkaline Phosphatase Total Creatine Kinase CK-MB (CK-2) CK-MB (CK-2) Rel Index Troponin T C-Reactive Protein Albumin 04/05/17 04/05/17 04/05/17 07:56 11:59 12:23 WBC RBC 3.18 L Hgb 9.2 L Hct 28.8 L RDW 20.2 H Plt Count 105 L Lymph % (Auto) [place] % (Auto) Lymph # [place] # Seg Neutrophils % Seg Neuts % (Manual) Lymphocytes % (Manual) Monocytes % (Manual) Seg Neutrophils # Seg Neutrophils # Man Lymphocytes # (Manual) Monocytes # (Manual) Heparin Anti-Xa Level POC ABG pH POC ABG pCO2 POC ABG pO2 Sodium 126 L D Potassium 6.7 H* D Chloride 86.9 L Carbon Dioxide 20 L BUN 60 H Creatinine 7.6 H Glucose 118 H POC Glucose 198 H Calcium ALT Alkaline Phosphatase Total Creatine Kinase CK-MB (CK-2) CK-MB (CK-2) Rel Index Troponin T C-Reactive Protein Albumin 04/05/17 12:23 WBC RBC Hgb Hct RDW Plt Count Lymph % (Auto) [place] % (Auto) Lymph # [place] # Seg Neutrophils % Seg Neuts % (Manual) Lymphocytes % (Manual) Monocytes % (Manual) Seg Neutrophils # Seg Neutrophils # Man Lymphocytes # (Manual) Monocytes # (Manual) Heparin Anti-Xa Level POC ABG pH POC ABG pCO2 POC ABG pO2 Sodium Potassium 3.2 L D Chloride Carbon Dioxide BUN Creatinine Glucose POC Glucose Calcium ALT Alkaline Phosphatase Total Creatine Kinase CK-MB (CK-2) CK-MB (CK-2) Rel Index Troponin T C-Reactive Protein Albumin Allied health notes reviewed: RT
--- NOTE | 2017-04-05 14:48 | Progress Note ---
Subjective Principal diagnosis: Acute Hypoxemic Resp Failure; STEMI Interval history: seen 10.45 am Patient was seen today for follow-up on multiple renal related issues Events noted No acute distress, getting dialsyis says blood draw was difficult this am K was high 6.7? Access working well per HD nurse Vitals labs intake output medications reviewed Social history: Reviewed Family history: Reviewed Physical examination Vitals: Reviewed HEENT: Oral mucosa moist Neck: Supple no JVD Chest: Clear to auscultation no crackles Heart: Regular rate and rhythm S1 and S2 heard Abdomen: Soft nontender bowel sounds present Extremity: Mild edema dry skin access ok Dermatology; dry skin Psychiatry: No evidence of agitation or aggression Assessment and plan; End-stage renal disease patient is currently on maintenance hemodialysis 3 times a week which she has been tolerating well Blood pressure is well-controlled hemoglobin 9.9 potassium 4.6 Hyperkalemia potassium was 6.2 was better now 6.7 do post BMP ? access issues , may need vascualr to see ? heprin related hyperkalemia , please change to lovenox 30 q 24 hour NO BAYLEE ARB NSAIDS , would not d/c today follow up BMP in am Anemia in end-stage renal disease to monitor erythropoietin as needed Secondary hyperparathyroidism to monitor phosphorus and PTH level Ultrafiltration as tolerated with hemodialysis seen and supervised today Status post V. fib and arrest with ST elevation [place] LifeVest versus ICD recommended by cardiology History of coronary artery disease heart cath showed patent LAD stents with possible LAD spasm noted March 16 Postop atrial fibrillation currently in sinus rhythm History of hyperlipidemia pulmonary hypertension Recent respiratory failure currently doing better Periodically monitor renal related labs We'll continue to follow and make recommendation from renal standpoin Objective - Vital Signs Vital signs: Vital Signs - 12hr 04/05/17 04/05/17 04/05/17 05:00 06:00 10:01 Temperature 98.3 F 98.1 F Pulse Rate 66 Pulse Rate [ 77 73 Right Radial] Respiratory 18 16 Rate Blood Pressure 113/57 Blood Pressure 113/57 125/58 [Right Arm] O2 Sat by Pulse 98 0 L Oximetry 04/05/17 04/05/17 04/05/17 10:15 10:30 10:45 Temperature 98.8 F Pulse Rate 72 78 82 Pulse Rate [ Right Radial] Respiratory 18 Rate Blood Pressure 96/44 100/52 90/48 Blood Pressure [Right Arm] O2 Sat by Pulse Oximetry 04/05/17 04/05/17 04/05/17 11:00 11:15 11:30 Temperature Pulse Rate 78 79 81 Pulse Rate [ Right Radial] Respiratory Rate Blood Pressure 93/47 104/52 101/47 Blood Pressure [Right Arm] O2 Sat by Pulse Oximetry 04/05/17 04/05/17 04/05/17 11:45 11:55 12:00 Temperature Pulse Rate 81 78 78 Pulse Rate [ Right Radial] Respiratory Rate Blood Pressure 76/35 96/40 85/43 Blood Pressure [Right Arm] O2 Sat by Pulse Oximetry 04/05/17 04/05/17 04/05/17 12:05 12:15 12:30 Temperature Pulse Rate 78 78 78 Pulse Rate [ Right Radial] Respiratory Rate Blood Pressure 89/37 96/43 92/41 Blood Pressure [Right Arm] O2 Sat by Pulse Oximetry 04/05/17 04/05/17 04/05/17 12:45 13:00 13:15 Temperature Pulse Rate 79 80 78 Pulse Rate [ Right Radial] Respiratory Rate Blood Pressure 90/44 98/45 99/42 Blood Pressure [Right Arm] O2 Sat by Pulse Oximetry 04/05/17 04/05/17 04/05/17 13:30 13:45 14:00 Temperature Pulse Rate 98 H 78 78 Pulse Rate [ Right Radial] Respiratory Rate Blood Pressure 93/45 104/46 95/40 Blood Pressure [Right Arm] O2 Sat by Pulse Oximetry 04/05/17 14:11 Temperature Pulse Rate 78 Pulse Rate [ Right Radial] Respiratory Rate Blood Pressure 98/48 Blood Pressure [Right Arm] O2 Sat by Pulse Oximetry - Lab 04/05/17 12:23 04/05/17 12:23 Most recent lab results Calcium 9.2 mg/dL (8.4-10.2) 04/05/17 07:56
[2017-04-06] MEDS: DUONEB *Not for PRN Use IH SCH ×4 (03:43→19:51)
[2017-04-06] MEDS: HEPARIN SUB-Q SCH ×3 (05:25→22:03)
[2017-04-06] MEDS: LOPRESSOR PO SCH ×3 (05:32→22:04)
[2017-04-06 07:35] LABS: Basophils % (Auto) 0.7 % (0.0-1.8); Eosinophils % (Auto) 1.4 % (0.0-4.3); Hematocrit 30.5 % (30.3-42.9); Hemoglobin 9.5 gm/dl (10.1-14.3); Mean Corpuscular HGB Conc 31 % (30-34); Mean Corpuscular Hemoglobin 29 pg (28-32); Mean Corpuscular Volume 92 fl (79-97); Platelet Count 107 K/mm3 (140-440); Red Blood Count 3.34 M/mm3 (3.65-5.03); Red Cell Distribution Width 20.5 % (13.2-15.2); White Blood Count 6.9 K/mm3 (4.5-11.0)
[2017-04-06 07:54] LABS: BUN/Creatinine Ratio 6.3; Calcium 9.6 mg/dL (8.4-10.2); Chloride 91.7 mmol/L (98-107); Potassium 4.1 mmol/L (3.6-5.0)
[2017-04-06] MEDS: PLAVIX PO SCH (09:08)
[2017-04-06] MEDS: PEPCID PO SCH (09:09)
[2017-04-06] MEDS: ULTRAM PO PRN ×3 (09:09→22:05)
[2017-04-06] MEDS: LEVEMIR SUB-Q SCH (10:00)
--- NOTE | 2017-04-06 11:15 | Progress Note ---
Assessment and Plan S/p V fib arrest 03/16 Pt. pulseless on presentation to ER-->CPR initiated-->ventricular fibrillation on the monitor-->defibrillated a single time with 200 J and resumption of compressions-->femoral pulse regained/ST on the monitor Post arrest ECG was consistent with anterior STEMI Lifevest placement and OP follow up with EP given VFib occurred prior to STEMI S/p STEMI Hyperkalemia dialysis per nephrology Coronary artery disease s/p PCI [facility] 03/16: patent LAD stents, possible distal LAD spasm pt. is allergic to ASA, continue Plavix, statin, metoprolol Post op afib-->currently SR Hypertension stable Hyperlipidemia Pulmonary HTN ESRD on HD Vital signs are stable. Rhythm is stable. Continue current management social service is working on disposition. - Patient Problems (1) Cardiac arrest due to underlying cardiac condition Current Visit: Yes Status: Acute (2) STEMI (ST elevation myocardial infarction) Current Visit: Yes Status: Acute Qualifiers: Involved coronary artery: unspecified coronary artery Qualified Code(s): I21.3 - ST elevation (STEMI) myocardial infarction of unspecified site (3) Pulmonary HTN Current Visit: Yes Status: Chronic (4) Acute hypoxemic respiratory failure Current Visit: Yes Status: Resolved (5) Hypertension Current Visit: No Status: Chronic Qualifiers: Hypertension type: H Subjective Date of service: 04/06/17 Principal diagnosis: Acute Hypoxemic Resp Failure; STEMI Interval history: Patient is comfortable today. Complains about soreness in the left upper chest most likely related to the CPR. Family in the room. Objective Vital Signs Temp Pulse Pulse Pulse Resp Resp BP 04/06/17 09:26 98.3 F 82 20 04/06/17 09:08 79 112/61 04/06/17 08:54 04/06/17 08:39 79 18 04/06/17 06:46 97.9 F 68 18 04/06/17 05:32 68 112/61 04/06/17 00:00 98.4 F 76 18 04/05/17 22:21 80 18 04/05/17 22:16 04/05/17 22:10 78 18 04/05/17 20:00 98.1 F 77 18 04/05/17 18:44 98.4 F 70 16 04/05/17 16:10 88 04/05/17 15:50 84 18 04/05/17 14:17 97.3 F L 78 20 103/41 04/05/17 14:11 78 98/48 04/05/17 14:00 78 95/40 04/05/17 13:45 78 104/46 04/05/17 13:30 98 H 93/45 04/05/17 13:15 78 99/42 04/05/17 13:00 80 98/45 04/05/17 12:45 79 90/44 04/05/17 12:30 78 92/41 04/05/17 12:15 78 96/43 04/05/17 12:05 78 89/37 04/05/17 12:00 78 85/43 04/05/17 11:55 78 96/40 04/05/17 11:45 81 76/35 04/05/17 11:30 81 101/47 04/05/17 11:15 79 104/52 BP Pulse Ox 04/06/17 09:26 107/54 94 04/06/17 09:08 04/06/17 08:54 99 04/06/17 08:39 04/06/17 06:46 112/61 97 04/06/17 05:32 04/06/17 00:00 128/60 97 04/05/17 22:21 04/05/17 22:16 99 04/05/17 22:10 04/05/17 20:00 108/53 98 04/05/17 18:44 128/60 97 04/05/17 16:10 04/05/17 15:50 04/05/17 14:17 04/05/17 14:11 04/05/17 14:00 04/05/17 13:45 04/05/17 13:30 04/05/17 13:15 04/05/17 13:00 04/05/17 12:45 04/05/17 12:30 04/05/17 12:15 04/05/17 12:05 04/05/17 12:00 04/05/17 11:55 04/05/17 11:45 04/05/17 11:30 04/05/17 11:15 - Physical Examination General: Appears Well, No Apparent Distress HEENT: Positive: Normocephaly, Mucus Membranes Moist Neck: Positive: neck supple, trachea midline Cardiac: Positive: Reg Rate and Rhythm, Tachycardia Neuro: Positive: Grossly Intact Abdomen: Positive: Soft, Active Bowel Sounds Skin: Negative: Clear, Rash Musculoskeletal: No Fluid Collection, No Pain, Normal Range of Motion, other ( reproducible anterior chest wall tenderness) Extremities: Present: upper extr. pulses, lower extr. pulses. Absent: edema - Labs and Meds CBC 04/05/17 04/06/17 Range/Units 12:23 07:12 WBC 10.1 6.9 (4.5-11.0) K/mm3 RBC 3.18 L 3.34 L (3.65-5.03) M/mm3 Hgb 9.2 L 9.5 L (10.1-14.3) gm/dl Hct 28.8 L 30.5 (30.3-42.9) % Plt Count 105 L 107 L (140-440) K/mm3 Lymph # Entertainment Reporter 0.8 L [place] # Entertainment Reporter 1.0 H Eos # Entertainment Reporter 0.1 Baso # Entertainment Reporter 0.0 Comprehensive Metabolic Panel 04/05/17 04/05/17 04/06/17 Range/Units 12:23 14:21 07:12 Sodium 133 L D (137-145) mmol/L Potassium 3.2 L D 4.1 D (3.6-5.0) mmol/L Chloride 91.7 L (98-107) mmol/L Carbon Dioxide 25 (22-30) mmol/L BUN 7 29 H (7-17) mg/dL Creatinine 4.6 H (0.7-1.2) mg/dL Glucose 139 H (65-100) mg/dL Calcium 9.6 (8.4-10.2) mg/dL - Imaging and Cardiology EKG: report reviewed, image reviewed Echo: report reviewed (echo reviewed - EF 60 - 65%, mild MR< mild TR, moderate , mild LVH, mild to moderate pulmonary HTN, RVSP 47mmHg. ) Cardiac cath: report reviewed (patent lad stents and distal lad spasm resolved) - EKG Sinus rhythms and dysrhythmias: sinus rhythm Myocardial infarction: inferior DC (acute or rec, anterior DC (acute or rec - Allied health notes Allied health notes reviewed: RT
--- NOTE | 2017-04-06 11:30 | Progress Note ---
Subjective Principal diagnosis: Acute Hypoxemic Resp Failure; STEMI Interval history: Patient was seen today for follow-up on multiple renal related issues Events noted, patient tolerated dialysis treatment well Postdialysis BUN was satisfactory suggestive of good clearance Potassium is currently normal today No acute distress Vitals labs intake output medications reviewed Social history: Reviewed Family history: Reviewed Physical examination Vitals: Reviewed HEENT: Oral mucosa moist Neck: Supple no JVD Chest: Clear to auscultation no crackles Heart: Regular rate and rhythm S1 and S2 heard Abdomen: Soft nontender bowel sounds present Extremity: Mild edema dry skin Dermatology; dry skin Psychiatry: No evidence of agitation or aggression Assessment and plan; End-stage renal disease patient is currently on maintenance hemodialysis Her dialysis labs appear to be satisfactory today she is stable for discharge from renal standpoint, Postdialysis there was significant reduction in BUN suggestive of good clearance Progression would likely high due to difficulty with blood draw She should not be considered for any form of BAYLEE inhibitors or angiotensin receptor hussain She should also maintain low potassium diet and preferably state to renal diet Patient has been adequately counseled and educated regarding renal related issues Status post V. fib and arrest with ST elevation [place] LifeVest versus ICD recommended by cardiology History of coronary artery disease heart cath showed patent LAD stents with possible LAD spasm noted March 16 Postop atrial fibrillation currently in sinus rhythm History of hyperlipidemia pulmonary hypertension Recent respiratory failure currently doing better Periodically monitor renal related labs We'll continue to follow and make recommendation from renal standpoin Objective - Vital Signs Vital signs: Vital Signs - 12hr 04/06/17 04/06/17 04/06/17 00:00 05:32 06:46 Temperature 98.4 F 97.9 F Pulse Rate 68 Pulse Rate [ Anterior Bilateral Throughout] Pulse Rate [ 76 68 Right Radial] Respiratory 18 18 Rate Respiratory Rate [Anterior Bilateral Throughout] Blood Pressure 112/61 Blood Pressure 128/60 112/61 [Right Arm] O2 Sat by Pulse 97 97 Oximetry 04/06/17 04/06/17 04/06/17 08:39 08:54 09:08 Temperature Pulse Rate 79 Pulse Rate [ 79 Anterior Bilateral Throughout] Pulse Rate [ Right Radial] Respiratory Rate Respiratory 18 Rate [Anterior Bilateral Throughout] Blood Pressure 112/61 Blood Pressure [Right Arm] O2 Sat by Pulse 99 Oximetry 04/06/17 09:26 Temperature 98.3 F Pulse Rate Pulse Rate [ Anterior Bilateral Throughout] Pulse Rate [ 82 Right Radial] Respiratory 20 Rate Respiratory Rate [Anterior Bilateral Throughout] Blood Pressure Blood Pressure 107/54 [Right Arm] O2 Sat by Pulse 94 Oximetry - Lab 04/06/17 07:12 04/06/17 07:12 Most recent lab results Calcium 9.6 mg/dL (8.4-10.2) 04/06/17 07:12
--- NOTE | 2017-04-06 18:08 | Progress Note ---
Assessment and Plan Patient alert, awake and resting on room air.. O2 saturation 97%.No complaint of chest pain or shortness of breath. - Patient Problems (1) Acute hypoxemic respiratory failure Current Visit: Yes Status: Resolved Plan to address problem: Patient resting on room air. O2 saturation 97%. Albuterol/atrovent aerosol treatments q 6 hours. Continue S/C Heparin. Continue Famotidine. (2) Hypotension Current Visit: Yes Status: Acute Qualifiers: Hypotension type: H Trimester: T Plan to address problem: Improved. Blood pressure 109/53..Patient asymptomatic. (3) ESRD on dialysis Current Visit: Yes Status: Acute Plan to address problem: Management as per nephrology. (4) Pneumomediastinum Current Visit: Yes Status: Acute Plan to address problem: Repeat chest xray did not report pneumomediastinum or Pneumothorax. (5) Obesity (BMI 30-39.9) Current Visit: Yes Status: Chronic Plan to address problem: Recommend to loose weight. Weight reduction diet. (6) Sleep apnea, obstructive Current Visit: Yes Status: Acute Plan to address problem: Patient says has history of sleep apnea. Uses CPAP at home. Place her on BIPAP during night time. Subjective Date of service: 04/06/17 Principal diagnosis: Acute Hypoxemic Resp Failure; STEMI Interval history: Patient alert, awake and resting on room air. O2 saturation 97%.No complaint of chest pain or shortness of breath. Objective Vital Signs - 12hr 04/06/17 04/06/17 04/06/17 06:46 08:39 08:54 Temperature 97.9 F Pulse Rate Pulse Rate [ 79 Anterior Bilateral Throughout] Pulse Rate [ 68 Right Radial] Respiratory 18 Rate Respiratory 18 Rate [Anterior Bilateral Throughout] Blood Pressure Blood Pressure 112/61 [Right Arm] O2 Sat by Pulse 97 99 Oximetry 04/06/17 04/06/17 04/06/17 09:08 09:26 15:40 Temperature 98.3 F Pulse Rate 79 Pulse Rate [ 72 Anterior Bilateral Throughout] Pulse Rate [ 82 Right Radial] Respiratory 20 Rate Respiratory 16 Rate [Anterior Bilateral Throughout] Blood Pressure 112/61 Blood Pressure 107/54 [Right Arm] O2 Sat by Pulse 94 Oximetry 04/06/17 04/06/17 15:48 16:00 Temperature 98.9 F Pulse Rate Pulse Rate [ 73 Anterior Bilateral Throughout] Pulse Rate [ 74 Right Radial] Respiratory 22 Rate Respiratory 18 Rate [Anterior Bilateral Throughout] Blood Pressure Blood Pressure 109/53 [Right Arm] O2 Sat by Pulse 97 Oximetry Constitutional: no acute distress, other (somnolent) Eyes: non-icteric ENT: oropharynx moist Neck: supple, no lymphadenopathy, no JVD Effort: mildly labored Ascultation: Bilateral: diminished breath sounds, rales (scant in bases) Cardiovascular: regular rate and rhythm Gastrointestinal: normoactive bowel sounds, soft, non-tender, non-distended Integumentary: normal, other (Femoral CVC) Extremities: no cyanosis, no edema, pulses normal, no ischemia or petechiae Neurologic: normal mental status, non-focal exam (Moves all extremities, tracks my voice, attempts to vocalize in response to questions), pupils equal and round , motor strength normal and, other (very weak) Psychiatric: mood appropriate, affect normal, depressed CBC and BMP: 04/06/17 07:12 04/06/17 07:12 ABG, PT/INR, D-dimer: ABG POC ABG pH 7.466 (7.35-7.45) H 03/30/17 13:21 POC ABG pCO2 37.9 (35-45) 03/30/17 13:21 POC ABG pO2 100 (80-105) 03/30/17 13:21 POC ABG HCO3 27.4 03/30/17 13:21 POC ABG Total CO2 28 03/30/17 13:21 POC ABG O2 Sat 98 03/30/17 13:21 PT/INR, D-dimer PT 13.4 Sec. (12.2-14.9) 03/16/17 11:07 INR 1.03 (0.87-1.13) 03/16/17 11:07 Abnormal lab findings: Abnormal Labs 03/16/17 03/16/17 03/17/17 16:36 18:00 03:42 WBC 20.6 H RBC Hgb Hct RDW 17.3 H Plt Count Lymph % (Auto) [place] % (Auto) Lymph # [place] # Seg Neutrophils % Seg Neuts % (Manual) 84.0 H Lymphocytes % (Manual) 3.0 L Monocytes % (Manual) 11.0 H Seg Neutrophils # Seg Neutrophils # Man 17.3 H Lymphocytes # (Manual) 0.6 L Monocytes # (Manual) 2.3 H Heparin Anti-Xa Level POC ABG pH 7.336 L POC ABG pCO2 47.9 H POC ABG pO2 189 H Sodium Potassium Chloride Carbon Dioxide BUN Creatinine Glucose POC Glucose Calcium ALT Alkaline Phosphatase Total Creatine Kinase 282 H CK-MB (CK-2) 24.2 H CK-MB (CK-2) Rel Index 8.5 H Troponin T 0.656 H* D C-Reactive Protein Albumin 03/17/17 03/17/17 03/17/17 03:42 04:21 17:15 WBC RBC Hgb Hct RDW Plt Count Lymph % (Auto) [place] % (Auto) Lymph # [place] # Seg Neutrophils % Seg Neuts % (Manual) Lymphocytes % (Manual) Monocytes % (Manual) Seg Neutrophils # Seg Neutrophils # Man Lymphocytes # (Manual) Monocytes # (Manual) Heparin Anti-Xa Level 0.10 L POC ABG pH POC ABG pCO2 POC ABG pO2 Sodium 131 L Potassium 5.3 H D Chloride 89.5 L Carbon Dioxide 21 L BUN 39 H Creatinine 7.0 H Glucose 151 H POC Glucose Calcium ALT Alkaline Phosphatase Total Creatine Kinase CK-MB (CK-2) CK-MB (CK-2) Rel Index Troponin T C-Reactive Protein 33.90 H Albumin 03/17/17 03/18/17 03/18/17 21:12 03:33 03:33 WBC 17.6 H RBC 3.59 L Hgb Hct RDW 16.9 H Plt Count Lymph % (Auto) 4.2 L [place] % (Auto) 11.8 H Lymph # 0.7 L [place] # 2.1 H Seg Neutrophils % 83.3 H Seg Neuts % (Manual) Lymphocytes % (Manual) Monocytes % (Manual) Seg Neutrophils # 14.7 H Seg Neutrophils # Man Lymphocytes # (Manual) Monocytes # (Manual) Heparin Anti-Xa Level < 0.10 L POC ABG pH POC ABG pCO2 POC ABG pO2 Sodium 127 L Potassium 6.1 H* Chloride 87.2 L Carbon Dioxide BUN 55 H Creatinine 8.7 H Glucose 140 H POC Glucose Calcium ALT Alkaline Phosphatase Total Creatine Kinase CK-MB (CK-2) CK-MB (CK-2) Rel Index Troponin T C-Reactive Protein Albumin 03/18/17 03/18/17 03/19/17 04:34 22:15 00:04 WBC RBC Hgb Hct RDW Plt Count Lymph % (Auto) [place] % (Auto) Lymph # [place] # Seg Neutrophils % Seg Neuts % (Manual) Lymphocytes % (Manual) Monocytes % (Manual) Seg Neutrophils # Seg Neutrophils # Man Lymphocytes # (Manual) Monocytes # (Manual) Heparin Anti-Xa Level POC ABG pH 7.289 L POC ABG pCO2 48.7 H POC ABG pO2 Sodium Potassium 5.6 H Chloride Carbon Dioxide BUN Creatinine Glucose POC Glucose 108 H Calcium ALT Alkaline Phosphatase Total Creatine Kinase CK-MB (CK-2) CK-MB (CK-2) Rel Index Troponin T C-Reactive Protein Albumin 03/19/17 03/19/17 03/19/17 05:22 08:00 08:00 WBC 16.3 H RBC 3.15 L Hgb 8.8 L Hct 27.3 L RDW 17.4 H Plt Count Lymph % (Auto) 3.4 L [place] % (Auto) 10.1 H Lymph # 0.5 L [place] # 1.7 H Seg Neutrophils % 85.4 H Seg Neuts % (Manual) Lymphocytes % (Manual) Monocytes % (Manual) Seg Neutrophils # 13.9 H Seg Neutrophils # Man Lymphocytes # (Manual) Monocytes # (Manual) Heparin Anti-Xa Level POC ABG pH POC ABG pCO2 POC ABG pO2 Sodium 131 L Potassium Chloride 89.3 L Carbon Dioxide BUN 56 H Creatinine 7.8 H Glucose 122 H POC Glucose 146 H Calcium ALT 59 H Alkaline Phosphatase 208 H Total Creatine Kinase CK-MB (CK-2) CK-MB (CK-2) Rel Index Troponin T C-Reactive Protein Albumin 2.6 L 03/19/17 03/19/17 03/19/17 08:06 11:50 17:36 WBC RBC Hgb Hct RDW Plt Count Lymph % (Auto) [place] % (Auto) Lymph # [place] # Seg Neutrophils % Seg Neuts % (Manual) Lymphocytes % (Manual) Monocytes % (Manual) Seg Neutrophils # Seg Neutrophils # Man Lymphocytes # (Manual) Monocytes # (Manual) Heparin Anti-Xa Level POC ABG pH 7.338 L POC ABG pCO2 49.2 H POC ABG pO2 110 H Sodium Potassium Chloride Carbon Dioxide BUN Creatinine Glucose POC Glucose 172 H 152 H Calcium ALT Alkaline Phosphatase Total Creatine Kinase CK-MB (CK-2) CK-MB (CK-2) Rel Index Troponin T C-Reactive Protein Albumin 03/20/17 03/20/17 03/20/17 00:14 04:15 05:06 WBC RBC Hgb Hct RDW Plt Count Lymph % (Auto) [place] % (Auto) Lymph # [place] # Seg Neutrophils % Seg Neuts % (Manual) Lymphocytes % (Manual) Monocytes % (Manual) Seg Neutrophils # Seg Neutrophils # Man Lymphocytes # (Manual) Monocytes # (Manual) Heparin Anti-Xa Level POC ABG pH 7.288 L POC ABG pCO2 51.4 H POC ABG pO2 Sodium Potassium Chloride Carbon Dioxide BUN Creatinine Glucose POC Glucose 132 H 166 H Calcium ALT Alkaline Phosphatase Total Creatine Kinase CK-MB (CK-2) CK-MB (CK-2) Rel Index Troponin T C-Reactive Protein Albumin 03/20/17 03/20/17 03/20/17 12:07 15:45 17:41 WBC RBC Hgb Hct RDW Plt Count Lymph % (Auto) [place] % (Auto) Lymph # [place] # Seg Neutrophils % Seg Neuts % (Manual) Lymphocytes % (Manual) Monocytes % (Manual) Seg Neutrophils # Seg Neutrophils # Man Lymphocytes # (Manual) Monocytes # (Manual) Heparin Anti-Xa Level POC ABG pH POC ABG pCO2 POC ABG pO2 Sodium Potassium Chloride Carbon Dioxide BUN Creatinine Glucose POC Glucose 193 H 172 H 156 H Calcium ALT Alkaline Phosphatase Total Creatine Kinase CK-MB (CK-2) CK-MB (CK-2) Rel Index Troponin T C-Reactive Protein Albumin 03/20/17 03/21/17 03/21/17 23:13 04:42 05:41 WBC RBC Hgb Hct RDW Plt Count Lymph % (Auto) [place] % (Auto) Lymph # [place] # Seg Neutrophils % Seg Neuts % (Manual) Lymphocytes % (Manual) Monocytes % (Manual) Seg Neutrophils # Seg Neutrophils # Man Lymphocytes # (Manual) Monocytes # (Manual) Heparin Anti-Xa Level POC ABG pH 7.321 L POC ABG pCO2 56.8 H POC ABG pO2 73 L Sodium Potassium Chloride Carbon Dioxide BUN Creatinine Glucose POC Glucose 141 H 159 H Calcium ALT Alkaline Phosphatase Total Creatine Kinase CK-MB (CK-2) CK-MB (CK-2) Rel Index Troponin T C-Reactive Protein Albumin 03/21/17 03/21/17 03/21/17 07:45 07:45 12:16 WBC 15.1 H RBC 3.32 L Hgb 9.2 L Hct 28.9 L RDW 17.4 H Plt Count Lymph % (Auto) 4.7 L [place] % (Auto) 16.0 H Lymph # 0.7 L [place] # 2.4 H Seg Neutrophils % 78.6 H Seg Neuts % (Manual) Lymphocytes % (Manual) Monocytes % (Manual) Seg Neutrophils # 11.8 H Seg Neutrophils # Man Lymphocytes # (Manual) Monocytes # (Manual) Heparin Anti-Xa Level POC ABG pH POC ABG pCO2 POC ABG pO2 Sodium Potassium Chloride 95.4 L Carbon Dioxide BUN 55 H Creatinine 6.9 H Glucose 188 H POC Glucose 226 H Calcium ALT Alkaline Phosphatase 244 H Total Creatine Kinase CK-MB (CK-2) CK-MB (CK-2) Rel Index Troponin T C-Reactive Protein Albumin 2.8 L 03/21/17 03/21/17 03/22/17 17:17 23:28 04:49 WBC RBC Hgb Hct RDW Plt Count Lymph % (Auto) [place] % (Auto) Lymph # [place] # Seg Neutrophils % Seg Neuts % (Manual) Lymphocytes % (Manual) Monocytes % (Manual) Seg Neutrophils # Seg Neutrophils # Man Lymphocytes # (Manual) Monocytes # (Manual) Heparin Anti-Xa Level POC ABG pH 7.323 L POC ABG pCO2 49.5 H POC ABG pO2 77 L Sodium Potassium Chloride Carbon Dioxide BUN Creatinine Glucose POC Glucose 192 H 199 H Calcium ALT Alkaline Phosphatase Total Creatine Kinase CK-MB (CK-2) CK-MB (CK-2) Rel Index Troponin T C-Reactive Protein Albumin 03/22/17 03/22/17 03/22/17 06:13 07:40 07:40 WBC 16.4 H RBC 3.29 L Hgb 9.1 L Hct 28.4 L RDW 17.3 H Plt Count Lymph % (Auto) [place] % (Auto) Lymph # [place] # Seg Neutrophils % Seg Neuts % (Manual) 73.0 H Lymphocytes % (Manual) 8.0 L Monocytes % (Manual) 14.0 H Seg Neutrophils # Seg Neutrophils # Man 12.0 H Lymphocytes # (Manual) Monocytes # (Manual) 2.3 H Heparin Anti-Xa Level POC ABG pH POC ABG pCO2 POC ABG pO2 Sodium Potassium Chloride 94.8 L Carbon Dioxide 21 L BUN 84 H Creatinine 9.4 H Glucose 188 H POC Glucose 190 H Calcium ALT Alkaline Phosphatase Total Creatine Kinase CK-MB (CK-2) CK-MB (CK-2) Rel Index Troponin T C-Reactive Protein Albumin 03/22/17 03/22/17 03/22/17 11:43 17:38 23:56 WBC RBC Hgb Hct RDW Plt Count Lymph % (Auto) [place] % (Auto) Lymph # [place] # Seg Neutrophils % Seg Neuts % (Manual) Lymphocytes % (Manual) Monocytes % (Manual) Seg Neutrophils # Seg Neutrophils # Man Lymphocytes # (Manual) Monocytes # (Manual) Heparin Anti-Xa Level POC ABG pH POC ABG pCO2 POC ABG pO2 Sodium Potassium Chloride Carbon Dioxide BUN Creatinine Glucose POC Glucose 149 H 168 H 229 H Calcium ALT Alkaline Phosphatase Total Creatine Kinase CK-MB (CK-2) CK-MB (CK-2) Rel Index Troponin T C-Reactive Protein Albumin 03/23/17 03/23/17 03/23/17 05:00 05:00 05:21 WBC 14.0 H RBC 3.09 L Hgb 8.5 L Hct 27.0 L RDW 17.8 H Plt Count Lymph % (Auto) [place] % (Auto) Lymph # [place] # Seg Neutrophils % Seg Neuts % (Manual) Lymphocytes % (Manual) 11.0 L Monocytes % (Manual) 13.0 H Seg Neutrophils # Seg Neutrophils # Man 9.2 H Lymphocytes # (Manual) Monocytes # (Manual) 1.8 H Heparin Anti-Xa Level POC ABG pH POC ABG pCO2 POC ABG pO2 Sodium Potassium Chloride 94.5 L Carbon Dioxide BUN 76 H Creatinine 7.5 H Glucose 192 H POC Glucose 195 H Calcium ALT Alkaline Phosphatase Total Creatine Kinase CK-MB (CK-2) CK-MB (CK-2) Rel Index Troponin T C-Reactive Protein Albumin 03/23/17 03/23/17 03/23/17 12:15 17:47 23:27 WBC RBC Hgb Hct RDW Plt Count Lymph % (Auto) [place] % (Auto) Lymph # [place] # Seg Neutrophils % Seg Neuts % (Manual) Lymphocytes % (Manual) Monocytes % (Manual) Seg Neutrophils # Seg Neutrophils # Man Lymphocytes # (Manual) Monocytes # (Manual) Heparin Anti-Xa Level POC ABG pH POC ABG pCO2 POC ABG pO2 Sodium Potassium Chloride Carbon Dioxide BUN Creatinine Glucose POC Glucose 162 H 137 H 221 H Calcium ALT Alkaline Phosphatase Total Creatine Kinase CK-MB (CK-2) CK-MB (CK-2) Rel Index Troponin T C-Reactive Protein Albumin 03/24/17 03/24/17 03/24/17 05:42 08:49 08:49 WBC RBC 2.99 L Hgb 8.5 L Hct 25.9 L RDW 18.1 H Plt Count Lymph % (Auto) [place] % (Auto) Lymph # [place] # Seg Neutrophils % Seg Neuts % (Manual) 83.0 H Lymphocytes % (Manual) 6.0 L Monocytes % (Manual) Seg Neutrophils # Seg Neutrophils # Man 8.5 H Lymphocytes # (Manual) 0.6 L Monocytes # (Manual) Heparin Anti-Xa Level POC ABG pH POC ABG pCO2 POC ABG pO2 Sodium Potassium Chloride 95.4 L Carbon Dioxide BUN 108 H Creatinine 9.4 H Glucose 203 H POC Glucose 216 H Calcium ALT Alkaline Phosphatase Total Creatine Kinase CK-MB (CK-2) CK-MB (CK-2) Rel Index Troponin T C-Reactive Protein Albumin 03/24/17 03/24/17 03/24/17 11:21 17:32 23:37 WBC RBC Hgb Hct RDW Plt Count Lymph % (Auto) [place] % (Auto) Lymph # [place] # Seg Neutrophils % Seg Neuts % (Manual) Lymphocytes % (Manual) Monocytes % (Manual) Seg Neutrophils # Seg Neutrophils # Man Lymphocytes # (Manual) Monocytes # (Manual) Heparin Anti-Xa Level POC ABG pH POC ABG pCO2 POC ABG pO2 Sodium Potassium Chloride Carbon Dioxide BUN Creatinine Glucose POC Glucose 185 H 138 H 218 H Calcium ALT Alkaline Phosphatase Total Creatine Kinase CK-MB (CK-2) CK-MB (CK-2) Rel Index Troponin T C-Reactive Protein Albumin 03/25/17 03/25/17 03/25/17 04:38 04:38 05:24 WBC RBC 3.27 L Hgb 9.3 L Hct 29.8 L RDW 18.4 H Plt Count Lymph % (Auto) [place] % (Auto) Lymph # [place] # Seg Neutrophils % Seg Neuts % (Manual) 78.0 H Lymphocytes % (Manual) 10.0 L Monocytes % (Manual) 9.0 H Seg Neutrophils # Seg Neutrophils # Man Lymphocytes # (Manual) 0.8 L Monocytes # (Manual) Heparin Anti-Xa Level POC ABG pH POC ABG pCO2 POC ABG pO2 Sodium 136 L Potassium Chloride 92.5 L Carbon Dioxide 17 L BUN 124 H Creatinine 9.7 H Glucose 217 H POC Glucose 211 H Calcium ALT Alkaline Phosphatase Total Creatine Kinase CK-MB (CK-2) CK-MB (CK-2) Rel Index Troponin T C-Reactive Protein Albumin 03/25/17 03/25/17 03/25/17 11:53 17:15 20:12 WBC RBC Hgb Hct RDW Plt Count Lymph % (Auto) [place] % (Auto) Lymph # [place] # Seg Neutrophils % Seg Neuts % (Manual) Lymphocytes % (Manual) Monocytes % (Manual) Seg Neutrophils # Seg Neutrophils # Man Lymphocytes # (Manual) Monocytes # (Manual) Heparin Anti-Xa Level POC ABG pH 7.469 H POC ABG pCO2 POC ABG pO2 69 L Sodium Potassium Chloride Carbon Dioxide BUN Creatinine Glucose POC Glucose 165 H 173 H Calcium ALT Alkaline Phosphatase Total Creatine Kinase CK-MB (CK-2) CK-MB (CK-2) Rel Index Troponin T C-Reactive Protein Albumin 03/25/17 03/26/17 03/26/17 23:32 05:59 06:03 WBC RBC Hgb Hct RDW Plt Count Lymph % (Auto) [place] % (Auto) Lymph # [place] # Seg Neutrophils % Seg Neuts % (Manual) Lymphocytes % (Manual) Monocytes % (Manual) Seg Neutrophils # Seg Neutrophils # Man Lymphocytes # (Manual) Monocytes # (Manual) Heparin Anti-Xa Level POC ABG pH POC ABG pCO2 POC ABG pO2 Sodium 136 L Potassium Chloride 91.6 L Carbon Dioxide 20 L BUN 97 H Creatinine 8.0 H Glucose 239 H POC Glucose 231 H 214 H Calcium ALT Alkaline Phosphatase Total Creatine Kinase CK-MB (CK-2) CK-MB (CK-2) Rel Index Troponin T C-Reactive Protein Albumin 03/26/17 03/26/17 03/26/17 12:55 18:14 23:27 WBC RBC Hgb Hct RDW Plt Count Lymph % (Auto) [place] % (Auto) Lymph # [place] # Seg Neutrophils % Seg Neuts % (Manual) Lymphocytes % (Manual) Monocytes % (Manual) Seg Neutrophils # Seg Neutrophils # Man Lymphocytes # (Manual) Monocytes # (Manual) Heparin Anti-Xa Level POC ABG pH POC ABG pCO2 POC ABG pO2 Sodium Potassium Chloride Carbon Dioxide BUN Creatinine Glucose POC Glucose 220 H 236 H 221 H Calcium ALT Alkaline Phosphatase Total Creatine Kinase CK-MB (CK-2) CK-MB (CK-2) Rel Index Troponin T C-Reactive Protein Albumin 03/27/17 03/27/17 03/27/17 00:58 04:00 04:00 WBC 12.9 H RBC 3.33 L Hgb 9.2 L Hct 29.0 L RDW 18.0 H Plt Count Lymph % (Auto) [place] % (Auto) Lymph # [place] # Seg Neutrophils % Seg Neuts % (Manual) 78.0 H Lymphocytes % (Manual) 13.0 L Monocytes % (Manual) Seg Neutrophils # Seg Neutrophils # Man 10.1 H Lymphocytes # (Manual) Monocytes # (Manual) Heparin Anti-Xa Level POC ABG pH POC ABG pCO2 POC ABG pO2 Sodium Potassium Chloride 91.8 L Carbon Dioxide BUN 108 H Creatinine 9.0 H Glucose 237 H POC Glucose Calcium ALT Alkaline Phosphatase Total Creatine Kinase CK-MB (CK-2) CK-MB (CK-2) Rel Index Troponin T C-Reactive Protein 7.90 H Albumin 03/27/17 03/27/17 03/27/17 05:24 11:17 17:40 WBC RBC Hgb Hct RDW Plt Count Lymph % (Auto) [place] % (Auto) Lymph # [place] # Seg Neutrophils % Seg Neuts % (Manual) Lymphocytes % (Manual) Monocytes % (Manual) Seg Neutrophils # Seg Neutrophils # Man Lymphocytes # (Manual) Monocytes # (Manual) Heparin Anti-Xa Level POC ABG pH POC ABG pCO2 POC ABG pO2 Sodium Potassium Chloride Carbon Dioxide BUN Creatinine Glucose POC Glucose 231 H 172 H 223 H Calcium ALT Alkaline Phosphatase Total Creatine Kinase CK-MB (CK-2) CK-MB (CK-2) Rel Index Troponin T C-Reactive Protein Albumin 03/27/17 03/28/17 03/28/17 23:49 05:40 11:51 WBC RBC Hgb Hct RDW Plt Count Lymph % (Auto) [place] % (Auto) Lymph # [place] # Seg Neutrophils % Seg Neuts % (Manual) Lymphocytes % (Manual) Monocytes % (Manual) Seg Neutrophils # Seg Neutrophils # Man Lymphocytes # (Manual) Monocytes # (Manual) Heparin Anti-Xa Level POC ABG pH POC ABG pCO2 POC ABG pO2 Sodium Potassium Chloride Carbon Dioxide BUN Creatinine Glucose POC Glucose 184 H 212 H 187 H Calcium ALT Alkaline Phosphatase Total Creatine Kinase CK-MB (CK-2) CK-MB (CK-2) Rel Index Troponin T C-Reactive Protein Albumin 03/28/17 03/29/17 03/29/17 17:11 00:25 05:28 WBC RBC Hgb Hct RDW Plt Count Lymph % (Auto) [place] % (Auto) Lymph # [place] # Seg Neutrophils % Seg Neuts % (Manual) Lymphocytes % (Manual) Monocytes % (Manual) Seg Neutrophils # Seg Neutrophils # Man Lymphocytes # (Manual) Monocytes # (Manual) Heparin Anti-Xa Level POC ABG pH POC ABG pCO2 POC ABG pO2 Sodium Potassium Chloride Carbon Dioxide BUN Creatinine Glucose POC Glucose 177 H 147 H 143 H Calcium ALT Alkaline Phosphatase Total Creatine Kinase CK-MB (CK-2) CK-MB (CK-2) Rel Index Troponin T C-Reactive Protein Albumin 03/29/17 03/30/17 03/30/17 17:46 06:06 10:42 WBC RBC Hgb Hct RDW Plt Count Lymph % (Auto) [place] % (Auto) Lymph # [place] # Seg Neutrophils % Seg Neuts % (Manual) Lymphocytes % (Manual) Monocytes % (Manual) Seg Neutrophils # Seg Neutrophils # Man Lymphocytes # (Manual) Monocytes # (Manual) Heparin Anti-Xa Level POC ABG pH POC ABG pCO2 POC ABG pO2 Sodium Potassium Chloride Carbon Dioxide BUN Creatinine Glucose POC Glucose 184 H 294 H 299 H Calcium ALT Alkaline Phosphatase Total Creatine Kinase CK-MB (CK-2) CK-MB (CK-2) Rel Index Troponin T C-Reactive Protein Albumin 03/30/17 03/30/17 03/30/17 13:21 16:38 19:48 WBC RBC Hgb Hct RDW Plt Count Lymph % (Auto) [place] % (Auto) Lymph # [place] # Seg Neutrophils % Seg Neuts % (Manual) Lymphocytes % (Manual) Monocytes % (Manual) Seg Neutrophils # Seg Neutrophils # Man Lymphocytes # (Manual) Monocytes # (Manual) Heparin Anti-Xa Level POC ABG pH 7.466 H POC ABG pCO2 POC ABG pO2 Sodium Potassium Chloride Carbon Dioxide BUN Creatinine Glucose POC Glucose 230 H 277 H Calcium ALT Alkaline Phosphatase Total Creatine Kinase CK-MB (CK-2) CK-MB (CK-2) Rel Index Troponin T C-Reactive Protein Albumin 03/30/17 03/31/17 03/31/17 23:28 05:49 17:13 WBC RBC Hgb Hct RDW Plt Count Lymph % (Auto) [place] % (Auto) Lymph # [place] # Seg Neutrophils % Seg Neuts % (Manual) Lymphocytes % (Manual) Monocytes % (Manual) Seg Neutrophils # Seg Neutrophils # Man Lymphocytes # (Manual) Monocytes # (Manual) Heparin Anti-Xa Level POC ABG pH POC ABG pCO2 POC ABG pO2 Sodium Potassium Chloride Carbon Dioxide BUN Creatinine Glucose POC Glucose 203 H 261 H 227 H Calcium ALT Alkaline Phosphatase Total Creatine Kinase CK-MB (CK-2) CK-MB (CK-2) Rel Index Troponin T C-Reactive Protein Albumin 03/31/17 04/01/17 04/01/17 19:32 00:39 05:51 WBC RBC Hgb Hct RDW Plt Count Lymph % (Auto) [place] % (Auto) Lymph # [place] # Seg Neutrophils % Seg Neuts % (Manual) Lymphocytes % (Manual) Monocytes % (Manual) Seg Neutrophils # Seg Neutrophils # Man Lymphocytes # (Manual) Monocytes # (Manual) Heparin Anti-Xa Level POC ABG pH POC ABG pCO2 POC ABG pO2 Sodium Potassium Chloride Carbon Dioxide BUN Creatinine Glucose POC Glucose 238 H 147 H 185 H Calcium ALT Alkaline Phosphatase Total Creatine Kinase CK-MB (CK-2) CK-MB (CK-2) Rel Index Troponin T C-Reactive Protein Albumin 04/01/17 04/01/17 04/01/17 12:00 12:17 23:23 WBC RBC Hgb Hct RDW Plt Count Lymph % (Auto) [place] % (Auto) Lymph # [place] # Seg Neutrophils % Seg Neuts % (Manual) Lymphocytes % (Manual) Monocytes % (Manual) Seg Neutrophils # Seg Neutrophils # Man Lymphocytes # (Manual) Monocytes # (Manual) Heparin Anti-Xa Level POC ABG pH POC ABG pCO2 POC ABG pO2 Sodium 136 L Potassium 5.4 H Chloride 88.3 L Carbon Dioxide 20 L BUN 110 H Creatinine 10.8 H Glucose 209 H POC Glucose 261 H 302 H Calcium ALT Alkaline Phosphatase Total Creatine Kinase CK-MB (CK-2) CK-MB (CK-2) Rel Index Troponin T C-Reactive Protein Albumin 04/02/17 04/02/17 04/02/17 05:16 06:40 06:40 WBC RBC Hgb Hct RDW 19.6 H Plt Count Lymph % (Auto) 8.5 L [place] % (Auto) 12.8 H Lymph # 0.8 L [place] # 1.2 H Seg Neutrophils % 76.4 H Seg Neuts % (Manual) Lymphocytes % (Manual) Monocytes % (Manual) Seg Neutrophils # Seg Neutrophils # Man Lymphocytes # (Manual) Monocytes # (Manual) Heparin Anti-Xa Level POC ABG pH POC ABG pCO2 POC ABG pO2 Sodium Potassium 5.3 H Chloride 91.0 L Carbon Dioxide BUN 50 H Creatinine 6.0 H Glucose 183 H POC Glucose 213 H Calcium 10.8 H ALT Alkaline Phosphatase Total Creatine Kinase CK-MB (CK-2) CK-MB (CK-2) Rel Index Troponin T C-Reactive Protein Albumin 04/02/17 04/02/17 04/03/17 11:53 19:03 00:01 WBC RBC Hgb Hct RDW Plt Count Lymph % (Auto) [place] % (Auto) Lymph # [place] # Seg Neutrophils % Seg Neuts % (Manual) Lymphocytes % (Manual) Monocytes % (Manual) Seg Neutrophils # Seg Neutrophils # Man Lymphocytes # (Manual) Monocytes # (Manual) Heparin Anti-Xa Level POC ABG pH POC ABG pCO2 POC ABG pO2 Sodium Potassium Chloride Carbon Dioxide BUN Creatinine Glucose POC Glucose 203 H 260 H 147 H Calcium ALT Alkaline Phosphatase Total Creatine Kinase CK-MB (CK-2) CK-MB (CK-2) Rel Index Troponin T C-Reactive Protein Albumin 04/03/17 04/03/17 04/03/17 06:09 07:03 07:03 WBC RBC Hgb Hct RDW 20.3 H Plt Count Lymph % (Auto) 13.2 L [place] % (Auto) 14.5 H Lymph # 1.0 L [place] # 1.1 H Seg Neutrophils % Seg Neuts % (Manual) Lymphocytes % (Manual) Monocytes % (Manual) Seg Neutrophils # Seg Neutrophils # Man Lymphocytes # (Manual) Monocytes # (Manual) Heparin Anti-Xa Level POC ABG pH POC ABG pCO2 POC ABG pO2 Sodium 133 L Potassium 6.2 H* Chloride 88.3 L Carbon Dioxide BUN 68 H Creatinine 7.5 H Glucose 138 H POC Glucose 154 H Calcium ALT Alkaline Phosphatase Total Creatine Kinase CK-MB (CK-2) CK-MB (CK-2) Rel Index Troponin T C-Reactive Protein Albumin 04/03/17 04/04/17 04/04/17 18:19 00:26 05:27 WBC RBC 3.44 L Hgb 9.9 L Hct RDW 20.0 H Plt Count Lymph % (Auto) 12.3 L [place] % (Auto) 14.7 H Lymph # 1.1 L [place] # 1.3 H Seg Neutrophils % 70.3 H Seg Neuts % (Manual) Lymphocytes % (Manual) Monocytes % (Manual) Seg Neutrophils # Seg Neutrophils # Man Lymphocytes # (Manual) Monocytes # (Manual) Heparin Anti-Xa Level POC ABG pH POC ABG pCO2 POC ABG pO2 Sodium Potassium Chloride Carbon Dioxide BUN Creatinine Glucose POC Glucose 331 H 230 H Calcium ALT Alkaline Phosphatase Total Creatine Kinase CK-MB (CK-2) CK-MB (CK-2) Rel Index Troponin T C-Reactive Protein Albumin 04/04/17 04/04/17 04/04/17 05:27 07:09 12:14 WBC RBC Hgb Hct RDW Plt Count Lymph % (Auto) [place] % (Auto) Lymph # [place] # Seg Neutrophils % Seg Neuts % (Manual) Lymphocytes % (Manual) Monocytes % (Manual) Seg Neutrophils # Seg Neutrophils # Man Lymphocytes # (Manual) Monocytes # (Manual) Heparin Anti-Xa Level POC ABG pH POC ABG pCO2 POC ABG pO2 Sodium 134 L Potassium Chloride Carbon Dioxide BUN 42 H Creatinine 6.0 H Glucose 175 H POC Glucose 171 H 217 H Calcium ALT Alkaline Phosphatase Total Creatine Kinase CK-MB (CK-2) CK-MB (CK-2) Rel Index Troponin T C-Reactive Protein Albumin 04/04/17 04/04/17 04/05/17 17:23 23:29 05:48 WBC RBC Hgb Hct RDW Plt Count Lymph % (Auto) [place] % (Auto) Lymph # [place] # Seg Neutrophils % Seg Neuts % (Manual) Lymphocytes % (Manual) Monocytes % (Manual) Seg Neutrophils # Seg Neutrophils # Man Lymphocytes # (Manual) Monocytes # (Manual) Heparin Anti-Xa Level POC ABG pH POC ABG pCO2 POC ABG pO2 Sodium Potassium Chloride Carbon Dioxide BUN Creatinine Glucose POC Glucose 168 H 188 H 114 H Calcium ALT Alkaline Phosphatase Total Creatine Kinase CK-MB (CK-2) CK-MB (CK-2) Rel Index Troponin T C-Reactive Protein Albumin 04/05/17 04/05/17 04/05/17 07:56 11:59 12:23 WBC RBC 3.18 L Hgb 9.2 L Hct 28.8 L RDW 20.2 H Plt Count 105 L Lymph % (Auto) [place] % (Auto) Lymph # [place] # Seg Neutrophils % Seg Neuts % (Manual) Lymphocytes % (Manual) Monocytes % (Manual) Seg Neutrophils # Seg Neutrophils # Man Lymphocytes # (Manual) Monocytes # (Manual) Heparin Anti-Xa Level POC ABG pH POC ABG pCO2 POC ABG pO2 Sodium 126 L D Potassium 6.7 H* D Chloride 86.9 L Carbon Dioxide 20 L BUN 60 H Creatinine 7.6 H Glucose 118 H POC Glucose 198 H Calcium ALT Alkaline Phosphatase Total Creatine Kinase CK-MB (CK-2) CK-MB (CK-2) Rel Index Troponin T C-Reactive Protein Albumin 04/05/17 04/05/17 04/06/17 12:23 18:42 00:37 WBC RBC Hgb Hct RDW Plt Count Lymph % (Auto) [place] % (Auto) Lymph # [place] # Seg Neutrophils % Seg Neuts % (Manual) Lymphocytes % (Manual) Monocytes % (Manual) Seg Neutrophils # Seg Neutrophils # Man Lymphocytes # (Manual) Monocytes # (Manual) Heparin Anti-Xa Level POC ABG pH POC ABG pCO2 POC ABG pO2 Sodium Potassium 3.2 L D Chloride Carbon Dioxide BUN Creatinine Glucose POC Glucose 217 H 177 H Calcium ALT Alkaline Phosphatase Total Creatine Kinase CK-MB (CK-2) CK-MB (CK-2) Rel Index Troponin T C-Reactive Protein Albumin 04/06/17 04/06/17 04/06/17 05:40 07:12 07:12 WBC RBC 3.34 L Hgb 9.5 L Hct RDW 20.5 H Plt Count 107 L Lymph % (Auto) 11.3 L [place] % (Auto) 14.0 H Lymph # 0.8 L [place] # 1.0 H Seg Neutrophils % 72.6 H Seg Neuts % (Manual) Lymphocytes % (Manual) Monocytes % (Manual) Seg Neutrophils # Seg Neutrophils # Man Lymphocytes # (Manual) Monocytes # (Manual) Heparin Anti-Xa Level POC ABG pH POC ABG pCO2 POC ABG pO2 Sodium 133 L D Potassium Chloride 91.7 L Carbon Dioxide BUN 29 H Creatinine 4.6 H Glucose 139 H POC Glucose 171 H Calcium ALT Alkaline Phosphatase Total Creatine Kinase CK-MB (CK-2) CK-MB (CK-2) Rel Index Troponin T C-Reactive Protein Albumin 04/06/17 04/06/17 12:03 16:02 WBC RBC Hgb Hct RDW Plt Count Lymph % (Auto) [place] % (Auto) Lymph # [place] # Seg Neutrophils % Seg Neuts % (Manual) Lymphocytes % (Manual) Monocytes % (Manual) Seg Neutrophils # Seg Neutrophils # Man Lymphocytes # (Manual) Monocytes # (Manual) Heparin Anti-Xa Level POC ABG pH POC ABG pCO2 POC ABG pO2 Sodium Potassium Chloride Carbon Dioxide BUN Creatinine Glucose POC Glucose 211 H 221 H Calcium ALT Alkaline Phosphatase Total Creatine Kinase CK-MB (CK-2) CK-MB (CK-2) Rel Index Troponin T C-Reactive Protein Albumin Allied health notes reviewed: RT
--- NOTE | 2017-04-06 19:07 | Progress Note ---
Assessment and Plan Assessment and Plan Assessment and plan: 66-year-old female presents to the emergency department complaining of chest pain after dialysis. While in triage, the patient went unresponsive, and without a pulse, No palpable pulses were identified. Patient was placed on a front desk monitor and ventricular fibrillation was noted. Patient was defibrillated a single time with 200 J. She received CPR protocol, was intubated and had ROSC, and she was then taken to the ICU. Postarrest ECG was consistent with anterior STEMI. Code STEMI was activated, she was taken to pathology laboratory director and received angiogram ; stent x 2 in LAD noted to be patent, but had distal LAD spasm Cardiovascular cardiac arrest; Vfib, STEMI, ACS, Distal LAD spasm, cardiogenic shock Cardiology input appreciated, status post cath with patent stents she was rx with amio drip, received heparin ggt x 24 hours, received Dopamine drip for Cardiogenic shock and hypotension,now improved; currently on Lopressor for rate control and now hypertensive -Hypertension. continue antihypertensive medications -Hyperlipidemia- Continue statin therapy -for Lifevest prior to DC, will fup with EP as an outpatient for ICD placement Pulmonary Acute hypoxic respiratory failure, mech vent >96 hours Status post extubation 03/24/17, continue oxygen supplementation and noninvasive positive pressure ventilation as needed GI Nausea/Vomiting- Start on zofran, now resolved Dysphagia has now resolved, continue diet Toxic metabolic encephalopathy EEG was reviewed, seizure is unlikely. 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 -WBC count is slowly downtrending, has completed empiric abx course RENAL/FEN End stage renal disease on hemodialysis. Nephrology following. 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 Diabetes mellitus type 2. Accu-Cheks and sliding scale insulin. 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 Follow H&H. Transfuse as necessary. DVT heparin subq, Discussed plan with the patient and her daughter Plan for SNIF placement, case management was updated on the plan Patient has appealed her discharge.Patient ready for discharge. Subjective Date of service: 04/06/17 Principal diagnosis: Acute Hypoxemic Resp Failure; STEMI Interval history: Doing better Objective - Constitutional Vitals: Vital Signs - 12hr 04/06/17 04/06/17 04/06/17 08:39 08:54 09:08 Temperature Pulse Rate 79 Pulse Rate [ 79 Anterior Bilateral Throughout] Pulse Rate [ Right Radial] Respiratory Rate Respiratory 18 Rate [Anterior Bilateral Throughout] Blood Pressure 112/61 Blood Pressure [Right Arm] O2 Sat by Pulse 99 Oximetry 04/06/17 04/06/17 04/06/17 09:26 15:40 15:48 Temperature 98.3 F Pulse Rate Pulse Rate [ 72 73 Anterior Bilateral Throughout] Pulse Rate [ 82 Right Radial] Respiratory 20 Rate Respiratory 16 18 Rate [Anterior Bilateral Throughout] Blood Pressure Blood Pressure 107/54 [Right Arm] O2 Sat by Pulse 94 Oximetry 04/06/17 16:00 Temperature 98.9 F Pulse Rate Pulse Rate [ Anterior Bilateral Throughout] Pulse Rate [ 74 Right Radial] Respiratory 22 Rate Respiratory Rate [Anterior Bilateral Throughout] Blood Pressure Blood Pressure 109/53 [Right Arm] O2 Sat by Pulse 97 Oximetry General appearance: Present: no acute distress, well-nourished - EENT Eyes: PERRL, EOM intact ENT: hearing intact, clear oral mucosa Ears: bilateral: normal - Neck Neck: supple, normal ROM - Respiratory Respiratory effort: normal Respiratory: bilateral: CTA - Breasts Breasts: normal - Cardiovascular Rhythm: regular Heart Sounds: Present: S1 & S2. Absent: gallop, rub Extremities: pulses intact, No edema, normal color, Full ROM - Gastrointestinal General gastrointestinal: Present: soft, non-tender, non-distended, normal bowel sounds - Genitourinary Female genitourinary: normal - Integumentary Integumentary: clear, warm, dry - Musculoskeletal Musculoskeletal: 1, strength equal bilaterally - Neurologic Neurologic: moves all extremities - Psychiatric Psychiatric: memory intact, appropriate mood/affect, intact judgment & insight - Labs CBC & Chem 7: 04/06/17 07:12 04/06/17 07:12 Labs: Abnormal lab results 04/06/17 04/06/17 04/06/17 Range/Units 00:37 05:40 07:12 RBC 3.34 L (3.65-5.03) M/mm3 Hgb 9.5 L (10.1-14.3) gm/dl RDW 20.5 H (13.2-15.2) % Plt Count 107 L (140-440) K/mm3 Lymph % (Auto) 11.3 L (13.4-35.0) % [place] % (Auto) 14.0 H (0.0-7.3) % Lymph # 0.8 L (1.2-5.4) K/mm3 [place] # 1.0 H (0.0-0.8) K/mm3 Seg Neutrophils % 72.6 H (40.0-70.0) % Sodium (137-145) mmol/L Chloride (98-107) mmol/L BUN (7-17) mg/dL Creatinine (0.7-1.2) mg/dL Glucose (65-100) mg/dL POC Glucose 177 H 171 H (70-105) 04/06/17 04/06/17 04/06/17 Range/Units 07:12 12:03 16:02 RBC (3.65-5.03) M/mm3 Hgb (10.1-14.3) gm/dl RDW (13.2-15.2) % Plt Count (140-440) K/mm3 Lymph % (Auto) (13.4-35.0) % [place] % (Auto) (0.0-7.3) % Lymph # (1.2-5.4) K/mm3 [place] # (0.0-0.8) K/mm3 Seg Neutrophils % (40.0-70.0) % Sodium 133 L D (137-145) mmol/L Chloride 91.7 L (98-107) mmol/L BUN 29 H (7-17) mg/dL Creatinine 4.6 H (0.7-1.2) mg/dL Glucose 139 H (65-100) mg/dL POC Glucose 211 H 221 H (70-105)
[2017-04-07] MEDS: DUONEB *Not for PRN Use IH SCH ×4 (02:16→20:13)
[2017-04-07] MEDS: LOPRESSOR PO SCH ×4 (04:31→22:06)
[2017-04-07] MEDS: HEPARIN SUB-Q SCH ×3 (06:28→22:03)
[2017-04-07 07:36] LABS: Basophils % (Auto) 0.7 % (0.0-1.8); Eosinophils % (Auto) 2.3 % (0.0-4.3); Hematocrit 28.9 % (30.3-42.9); Hemoglobin 9.3 gm/dl (10.1-14.3); Mean Corpuscular HGB Conc 32 % (30-34); Mean Corpuscular Hemoglobin 29 pg (28-32); Mean Corpuscular Volume 90 fl (79-97); Platelet Count 103 K/mm3 (140-440); White Blood Count 5.7 K/mm3 (4.5-11.0)
[2017-04-07 07:38] LABS: Red Cell Distribution Width 20.5 % (13.2-15.2)
[2017-04-07 07:45] LABS: BUN/Creatinine Ratio 6.88; Calcium 8.8 mg/dL (8.4-10.2); Chloride 89.6 mmol/L (98-107)
[2017-04-07 08:41] LABS: Potassium 5.1 mmol/L (3.6-5.0)
[2017-04-07] MEDS: PLAVIX PO SCH (09:47)
[2017-04-07] MEDS: LEVEMIR SUB-Q SCH (09:47)
[2017-04-07] MEDS: PEPCID PO SCH (09:47)
--- NOTE | 2017-04-07 10:36 | Progress Note ---
Subjective Principal diagnosis: Acute Hypoxemic Resp Failure; STEMI Interval history: Patient was seen today for follow-up on multiple renal related issues Events noted, patient tolerated dialysis treatment well she will also know if she can get a wheelchair upon discharge Patient likely will need rehabilitation which is currently pending She did have a good clearance with hemodialysis Her axis is currently working well Vitals labs intake output medications reviewed Social history: Reviewed Family history: Reviewed Physical examination Vitals: Reviewed HEENT: Oral mucosa moist Neck: Supple no JVD Chest: Clear to auscultation no crackles Heart: Regular rate and rhythm S1 and S2 heard Abdomen: Soft nontender bowel sounds present Extremity: Mild edema dry skin Dermatology; dry skin Psychiatry: No evidence of agitation or aggression Assessment and plan; End-stage renal disease patient is currently on maintenance hemodialysis , she will continue to dialyze 3 times per week Postdialysis BUN was satisfactory hence her clearance is good Occasionally hyperkalemic to monitor sometime due to difficult lab draw Avoid any follow-up [place] inhibitors or angiotensin receptor block patient is to be on high protein diet needs rehabilitation Status post V. fib and arrest with ST elevation [place] LifeVest versus ICD recommended by cardiology History of coronary artery disease heart cath showed patent LAD stents with possible LAD spasm noted March 16 Postop atrial fibrillation currently in sinus rhythm History of hyperlipidemia pulmonary hypertension Recent respiratory failure currently doing better Periodically monitor renal related labs We'll continue to follow and make recommendation from renal standpoint Objective - Vital Signs Vital signs: Vital Signs - 12hr 04/06/17 04/07/17 04/07/17 23:05 04:31 08:36 Temperature Pulse Rate 88 Pulse Rate [ 66 Anterior Bilateral Throughout] Pulse Rate [ From Monitor] Respiratory 22 Rate Respiratory 18 Rate [Anterior Bilateral Throughout] Blood Pressure 141/58 Blood Pressure [Right Arm] 04/07/17 04/07/17 04/07/17 08:46 09:42 09:49 Temperature 98.8 F Pulse Rate 64 Pulse Rate [ 70 Anterior Bilateral Throughout] Pulse Rate [ 64 From Monitor] Respiratory 20 Rate Respiratory 18 Rate [Anterior Bilateral Throughout] Blood Pressure 147/68 Blood Pressure 147/68 [Right Arm] - Lab 04/07/17 06:53 04/07/17 06:53 Most recent lab results Calcium 8.8 mg/dL (8.4-10.2) 04/07/17 06:53
[2017-04-07] MEDS: ULTRAM PO PRN ×2 (12:58→22:48)
--- NOTE | 2017-04-07 14:25 | Progress Note ---
Assessment and Plan Patient alert, awake and weak and resting on 2 litres O2 O2 saturation 97%.No complaint of shortness of breath.Complaining left sided chest wall pain. - Patient Problems (1) Acute hypoxemic respiratory failure Current Visit: Yes Status: Resolved Plan to address problem: Patient resting on 2 litres O2.. O2 saturation 97%. Albuterol/atrovent aerosol treatments q 6 hours. Continue S/C Heparin. Continue Famotidine. (2) Hypotension Current Visit: Yes Status: Acute Qualifiers: Hypotension type: H Trimester: T Plan to address problem: Improved. Blood pressure 147/68. (3) ESRD on dialysis Current Visit: Yes Status: Acute Plan to address problem: Management as per nephrology. (4) Pneumomediastinum Current Visit: Yes Status: Acute Plan to address problem: Repeat chest xray did not report pneumomediastinum or Pneumothorax. (5) Obesity (BMI 30-39.9) Current Visit: Yes Status: Chronic Plan to address problem: Recommend to loose weight. Weight reduction diet. (6) Sleep apnea, obstructive Current Visit: Yes Status: Acute Plan to address problem: Patient says has history of sleep apnea. Uses CPAP at home. Place her on BIPAP during night time. Subjective Date of service: 04/07/17 Principal diagnosis: Acute Hypoxemic Resp Failure; STEMI Interval history: Patient alert, awake and weak and resting on 2 litres O2 O2 saturation 97%.No complaint of shortness of breath.Complaining left sided chest wall pain. Objective Vital Signs - 12hr 04/07/17 04/07/17 04/07/17 04:31 08:36 08:46 Temperature Pulse Rate 88 Pulse Rate [ 66 70 Anterior Bilateral Throughout] Pulse Rate [ From Monitor] Respiratory Rate Respiratory 18 18 Rate [Anterior Bilateral Throughout] Blood Pressure 141/58 Blood Pressure [Right Arm] O2 Sat by Pulse Oximetry 04/07/17 04/07/17 04/07/17 09:42 09:49 10:00 Temperature 98.8 F Pulse Rate 64 Pulse Rate [ Anterior Bilateral Throughout] Pulse Rate [ 64 From Monitor] Respiratory 20 20 Rate Respiratory Rate [Anterior Bilateral Throughout] Blood Pressure 147/68 Blood Pressure 147/68 [Right Arm] O2 Sat by Pulse 97 Oximetry 04/07/17 04/07/17 13:54 14:06 Temperature Pulse Rate Pulse Rate [ 66 65 Anterior Bilateral Throughout] Pulse Rate [ From Monitor] Respiratory Rate Respiratory 18 18 Rate [Anterior Bilateral Throughout] Blood Pressure Blood Pressure [Right Arm] O2 Sat by Pulse Oximetry Constitutional: no acute distress, other (somnolent) Eyes: non-icteric ENT: oropharynx moist Neck: supple, no lymphadenopathy, no JVD Effort: mildly labored Ascultation: Bilateral: diminished breath sounds, rales (scant in bases) Cardiovascular: regular rate and rhythm Gastrointestinal: normoactive bowel sounds, soft, non-tender, non-distended Integumentary: normal, other (Femoral CVC) Extremities: no cyanosis, no edema, pulses normal, no ischemia or petechiae Neurologic: normal mental status, non-focal exam (Moves all extremities, tracks my voice, attempts to vocalize in response to questions), pupils equal and round , motor strength normal and, other (very weak) Psychiatric: mood appropriate, affect normal, depressed CBC and BMP: 04/07/17 06:53 04/07/17 06:53 ABG, PT/INR, D-dimer: ABG POC ABG pH 7.466 (7.35-7.45) H 03/30/17 13:21 POC ABG pCO2 37.9 (35-45) 03/30/17 13:21 POC ABG pO2 100 (80-105) 03/30/17 13:21 POC ABG HCO3 27.4 03/30/17 13:21 POC ABG Total CO2 28 03/30/17 13:21 POC ABG O2 Sat 98 03/30/17 13:21 PT/INR, D-dimer PT 13.4 Sec. (12.2-14.9) 03/16/17 11:07 INR 1.03 (0.87-1.13) 03/16/17 11:07 Abnormal lab findings: Abnormal Labs 03/16/17 03/16/17 03/17/17 16:36 18:00 03:42 WBC 20.6 H RBC Hgb Hct RDW 17.3 H Plt Count Lymph % (Auto) Barren % (Auto) Lymph # Barren # Seg Neutrophils % Seg Neuts % (Manual) 84.0 H Lymphocytes % (Manual) 3.0 L Monocytes % (Manual) 11.0 H Seg Neutrophils # Seg Neutrophils # Man 17.3 H Lymphocytes # (Manual) 0.6 L Monocytes # (Manual) 2.3 H Heparin Anti-Xa Level POC ABG pH 7.336 L POC ABG pCO2 47.9 H POC ABG pO2 189 H Sodium Potassium Chloride Carbon Dioxide BUN Creatinine Glucose POC Glucose Calcium ALT Alkaline Phosphatase Total Creatine Kinase 282 H CK-MB (CK-2) 24.2 H CK-MB (CK-2) Rel Index 8.5 H Troponin T 0.656 H* D C-Reactive Protein Albumin 03/17/17 03/17/17 03/17/17 03:42 04:21 17:15 WBC RBC Hgb Hct RDW Plt Count Lymph % (Auto) Barren % (Auto) Lymph # Barren # Seg Neutrophils % Seg Neuts % (Manual) Lymphocytes % (Manual) Monocytes % (Manual) Seg Neutrophils # Seg Neutrophils # Man Lymphocytes # (Manual) Monocytes # (Manual) Heparin Anti-Xa Level 0.10 L POC ABG pH POC ABG pCO2 POC ABG pO2 Sodium 131 L Potassium 5.3 H D Chloride 89.5 L Carbon Dioxide 21 L BUN 39 H Creatinine 7.0 H Glucose 151 H POC Glucose Calcium ALT Alkaline Phosphatase Total Creatine Kinase CK-MB (CK-2) CK-MB (CK-2) Rel Index Troponin T C-Reactive Protein 33.90 H Albumin 03/17/17 03/18/17 03/18/17 21:12 03:33 03:33 WBC 17.6 H RBC 3.59 L Hgb Hct RDW 16.9 H Plt Count Lymph % (Auto) 4.2 L Barren % (Auto) 11.8 H Lymph # 0.7 L Barren # 2.1 H Seg Neutrophils % 83.3 H Seg Neuts % (Manual) Lymphocytes % (Manual) Monocytes % (Manual) Seg Neutrophils # 14.7 H Seg Neutrophils # Man Lymphocytes # (Manual) Monocytes # (Manual) Heparin Anti-Xa Level < 0.10 L POC ABG pH POC ABG pCO2 POC ABG pO2 Sodium 127 L Potassium 6.1 H* Chloride 87.2 L Carbon Dioxide BUN 55 H Creatinine 8.7 H Glucose 140 H POC Glucose Calcium ALT Alkaline Phosphatase Total Creatine Kinase CK-MB (CK-2) CK-MB (CK-2) Rel Index Troponin T C-Reactive Protein Albumin 03/18/17 03/18/17 03/19/17 04:34 22:15 00:04 WBC RBC Hgb Hct RDW Plt Count Lymph % (Auto) Barren % (Auto) Lymph # Barren # Seg Neutrophils % Seg Neuts % (Manual) Lymphocytes % (Manual) Monocytes % (Manual) Seg Neutrophils # Seg Neutrophils # Man Lymphocytes # (Manual) Monocytes # (Manual) Heparin Anti-Xa Level POC ABG pH 7.289 L POC ABG pCO2 48.7 H POC ABG pO2 Sodium Potassium 5.6 H Chloride Carbon Dioxide BUN Creatinine Glucose POC Glucose 108 H Calcium ALT Alkaline Phosphatase Total Creatine Kinase CK-MB (CK-2) CK-MB (CK-2) Rel Index Troponin T C-Reactive Protein Albumin 03/19/17 03/19/17 03/19/17 05:22 08:00 08:00 WBC 16.3 H RBC 3.15 L Hgb 8.8 L Hct 27.3 L RDW 17.4 H Plt Count Lymph % (Auto) 3.4 L Barren % (Auto) 10.1 H Lymph # 0.5 L Barren # 1.7 H Seg Neutrophils % 85.4 H Seg Neuts % (Manual) Lymphocytes % (Manual) Monocytes % (Manual) Seg Neutrophils # 13.9 H Seg Neutrophils # Man Lymphocytes # (Manual) Monocytes # (Manual) Heparin Anti-Xa Level POC ABG pH POC ABG pCO2 POC ABG pO2 Sodium 131 L Potassium Chloride 89.3 L Carbon Dioxide BUN 56 H Creatinine 7.8 H Glucose 122 H POC Glucose 146 H Calcium ALT 59 H Alkaline Phosphatase 208 H Total Creatine Kinase CK-MB (CK-2) CK-MB (CK-2) Rel Index Troponin T C-Reactive Protein Albumin 2.6 L 03/19/17 03/19/17 03/19/17 08:06 11:50 17:36 WBC RBC Hgb Hct RDW Plt Count Lymph % (Auto) Barren % (Auto) Lymph # Barren # Seg Neutrophils % Seg Neuts % (Manual) Lymphocytes % (Manual) Monocytes % (Manual) Seg Neutrophils # Seg Neutrophils # Man Lymphocytes # (Manual) Monocytes # (Manual) Heparin Anti-Xa Level POC ABG pH 7.338 L POC ABG pCO2 49.2 H POC ABG pO2 110 H Sodium Potassium Chloride Carbon Dioxide BUN Creatinine Glucose POC Glucose 172 H 152 H Calcium ALT Alkaline Phosphatase Total Creatine Kinase CK-MB (CK-2) CK-MB (CK-2) Rel Index Troponin T C-Reactive Protein Albumin 03/20/17 03/20/17 03/20/17 00:14 04:15 05:06 WBC RBC Hgb Hct RDW Plt Count Lymph % (Auto) Barren % (Auto) Lymph # Barren # Seg Neutrophils % Seg Neuts % (Manual) Lymphocytes % (Manual) Monocytes % (Manual) Seg Neutrophils # Seg Neutrophils # Man Lymphocytes # (Manual) Monocytes # (Manual) Heparin Anti-Xa Level POC ABG pH 7.288 L POC ABG pCO2 51.4 H POC ABG pO2 Sodium Potassium Chloride Carbon Dioxide BUN Creatinine Glucose POC Glucose 132 H 166 H Calcium ALT Alkaline Phosphatase Total Creatine Kinase CK-MB (CK-2) CK-MB (CK-2) Rel Index Troponin T C-Reactive Protein Albumin 03/20/17 03/20/17 03/20/17 12:07 15:45 17:41 WBC RBC Hgb Hct RDW Plt Count Lymph % (Auto) Barren % (Auto) Lymph # Barren # Seg Neutrophils % Seg Neuts % (Manual) Lymphocytes % (Manual) Monocytes % (Manual) Seg Neutrophils # Seg Neutrophils # Man Lymphocytes # (Manual) Monocytes # (Manual) Heparin Anti-Xa Level POC ABG pH POC ABG pCO2 POC ABG pO2 Sodium Potassium Chloride Carbon Dioxide BUN Creatinine Glucose POC Glucose 193 H 172 H 156 H Calcium ALT Alkaline Phosphatase Total Creatine Kinase CK-MB (CK-2) CK-MB (CK-2) Rel Index Troponin T C-Reactive Protein Albumin 03/20/17 03/21/17 03/21/17 23:13 04:42 05:41 WBC RBC Hgb Hct RDW Plt Count Lymph % (Auto) Barren % (Auto) Lymph # Barren # Seg Neutrophils % Seg Neuts % (Manual) Lymphocytes % (Manual) Monocytes % (Manual) Seg Neutrophils # Seg Neutrophils # Man Lymphocytes # (Manual) Monocytes # (Manual) Heparin Anti-Xa Level POC ABG pH 7.321 L POC ABG pCO2 56.8 H POC ABG pO2 73 L Sodium Potassium Chloride Carbon Dioxide BUN Creatinine Glucose POC Glucose 141 H 159 H Calcium ALT Alkaline Phosphatase Total Creatine Kinase CK-MB (CK-2) CK-MB (CK-2) Rel Index Troponin T C-Reactive Protein Albumin 03/21/17 03/21/17 03/21/17 07:45 07:45 12:16 WBC 15.1 H RBC 3.32 L Hgb 9.2 L Hct 28.9 L RDW 17.4 H Plt Count Lymph % (Auto) 4.7 L Barren % (Auto) 16.0 H Lymph # 0.7 L Barren # 2.4 H Seg Neutrophils % 78.6 H Seg Neuts % (Manual) Lymphocytes % (Manual) Monocytes % (Manual) Seg Neutrophils # 11.8 H Seg Neutrophils # Man Lymphocytes # (Manual) Monocytes # (Manual) Heparin Anti-Xa Level POC ABG pH POC ABG pCO2 POC ABG pO2 Sodium Potassium Chloride 95.4 L Carbon Dioxide BUN 55 H Creatinine 6.9 H Glucose 188 H POC Glucose 226 H Calcium ALT Alkaline Phosphatase 244 H Total Creatine Kinase CK-MB (CK-2) CK-MB (CK-2) Rel Index Troponin T C-Reactive Protein Albumin 2.8 L 03/21/17 03/21/17 03/22/17 17:17 23:28 04:49 WBC RBC Hgb Hct RDW Plt Count Lymph % (Auto) Barren % (Auto) Lymph # Barren # Seg Neutrophils % Seg Neuts % (Manual) Lymphocytes % (Manual) Monocytes % (Manual) Seg Neutrophils # Seg Neutrophils # Man Lymphocytes # (Manual) Monocytes # (Manual) Heparin Anti-Xa Level POC ABG pH 7.323 L POC ABG pCO2 49.5 H POC ABG pO2 77 L Sodium Potassium Chloride Carbon Dioxide BUN Creatinine Glucose POC Glucose 192 H 199 H Calcium ALT Alkaline Phosphatase Total Creatine Kinase CK-MB (CK-2) CK-MB (CK-2) Rel Index Troponin T C-Reactive Protein Albumin 03/22/17 03/22/17 03/22/17 06:13 07:40 07:40 WBC 16.4 H RBC 3.29 L Hgb 9.1 L Hct 28.4 L RDW 17.3 H Plt Count Lymph % (Auto) Barren % (Auto) Lymph # Barren # Seg Neutrophils % Seg Neuts % (Manual) 73.0 H Lymphocytes % (Manual) 8.0 L Monocytes % (Manual) 14.0 H Seg Neutrophils # Seg Neutrophils # Man 12.0 H Lymphocytes # (Manual) Monocytes # (Manual) 2.3 H Heparin Anti-Xa Level POC ABG pH POC ABG pCO2 POC ABG pO2 Sodium Potassium Chloride 94.8 L Carbon Dioxide 21 L BUN 84 H Creatinine 9.4 H Glucose 188 H POC Glucose 190 H Calcium ALT Alkaline Phosphatase Total Creatine Kinase CK-MB (CK-2) CK-MB (CK-2) Rel Index Troponin T C-Reactive Protein Albumin 03/22/17 03/22/17 03/22/17 11:43 17:38 23:56 WBC RBC Hgb Hct RDW Plt Count Lymph % (Auto) Barren % (Auto) Lymph # Barren # Seg Neutrophils % Seg Neuts % (Manual) Lymphocytes % (Manual) Monocytes % (Manual) Seg Neutrophils # Seg Neutrophils # Man Lymphocytes # (Manual) Monocytes # (Manual) Heparin Anti-Xa Level POC ABG pH POC ABG pCO2 POC ABG pO2 Sodium Potassium Chloride Carbon Dioxide BUN Creatinine Glucose POC Glucose 149 H 168 H 229 H Calcium ALT Alkaline Phosphatase Total Creatine Kinase CK-MB (CK-2) CK-MB (CK-2) Rel Index Troponin T C-Reactive Protein Albumin 03/23/17 03/23/17 03/23/17 05:00 05:00 05:21 WBC 14.0 H RBC 3.09 L Hgb 8.5 L Hct 27.0 L RDW 17.8 H Plt Count Lymph % (Auto) Barren % (Auto) Lymph # Barren # Seg Neutrophils % Seg Neuts % (Manual) Lymphocytes % (Manual) 11.0 L Monocytes % (Manual) 13.0 H Seg Neutrophils # Seg Neutrophils # Man 9.2 H Lymphocytes # (Manual) Monocytes # (Manual) 1.8 H Heparin Anti-Xa Level POC ABG pH POC ABG pCO2 POC ABG pO2 Sodium Potassium Chloride 94.5 L Carbon Dioxide BUN 76 H Creatinine 7.5 H Glucose 192 H POC Glucose 195 H Calcium ALT Alkaline Phosphatase Total Creatine Kinase CK-MB (CK-2) CK-MB (CK-2) Rel Index Troponin T C-Reactive Protein Albumin 03/23/17 03/23/17 03/23/17 12:15 17:47 23:27 WBC RBC Hgb Hct RDW Plt Count Lymph % (Auto) Barren % (Auto) Lymph # Barren # Seg Neutrophils % Seg Neuts % (Manual) Lymphocytes % (Manual) Monocytes % (Manual) Seg Neutrophils # Seg Neutrophils # Man Lymphocytes # (Manual) Monocytes # (Manual) Heparin Anti-Xa Level POC ABG pH POC ABG pCO2 POC ABG pO2 Sodium Potassium Chloride Carbon Dioxide BUN Creatinine Glucose POC Glucose 162 H 137 H 221 H Calcium ALT Alkaline Phosphatase Total Creatine Kinase CK-MB (CK-2) CK-MB (CK-2) Rel Index Troponin T C-Reactive Protein Albumin 03/24/17 03/24/17 03/24/17 05:42 08:49 08:49 WBC RBC 2.99 L Hgb 8.5 L Hct 25.9 L RDW 18.1 H Plt Count Lymph % (Auto) Barren % (Auto) Lymph # Barren # Seg Neutrophils % Seg Neuts % (Manual) 83.0 H Lymphocytes % (Manual) 6.0 L Monocytes % (Manual) Seg Neutrophils # Seg Neutrophils # Man 8.5 H Lymphocytes # (Manual) 0.6 L Monocytes # (Manual) Heparin Anti-Xa Level POC ABG pH POC ABG pCO2 POC ABG pO2 Sodium Potassium Chloride 95.4 L Carbon Dioxide BUN 108 H Creatinine 9.4 H Glucose 203 H POC Glucose 216 H Calcium ALT Alkaline Phosphatase Total Creatine Kinase CK-MB (CK-2) CK-MB (CK-2) Rel Index Troponin T C-Reactive Protein Albumin 03/24/17 03/24/17 03/24/17 11:21 17:32 23:37 WBC RBC Hgb Hct RDW Plt Count Lymph % (Auto) Barren % (Auto) Lymph # Barren # Seg Neutrophils % Seg Neuts % (Manual) Lymphocytes % (Manual) Monocytes % (Manual) Seg Neutrophils # Seg Neutrophils # Man Lymphocytes # (Manual) Monocytes # (Manual) Heparin Anti-Xa Level POC ABG pH POC ABG pCO2 POC ABG pO2 Sodium Potassium Chloride Carbon Dioxide BUN Creatinine Glucose POC Glucose 185 H 138 H 218 H Calcium ALT Alkaline Phosphatase Total Creatine Kinase CK-MB (CK-2) CK-MB (CK-2) Rel Index Troponin T C-Reactive Protein Albumin 03/25/17 03/25/17 03/25/17 04:38 04:38 05:24 WBC RBC 3.27 L Hgb 9.3 L Hct 29.8 L RDW 18.4 H Plt Count Lymph % (Auto) Barren % (Auto) Lymph # Barren # Seg Neutrophils % Seg Neuts % (Manual) 78.0 H Lymphocytes % (Manual) 10.0 L Monocytes % (Manual) 9.0 H Seg Neutrophils # Seg Neutrophils # Man Lymphocytes # (Manual) 0.8 L Monocytes # (Manual) Heparin Anti-Xa Level POC ABG pH POC ABG pCO2 POC ABG pO2 Sodium 136 L Potassium Chloride 92.5 L Carbon Dioxide 17 L BUN 124 H Creatinine 9.7 H Glucose 217 H POC Glucose 211 H Calcium ALT Alkaline Phosphatase Total Creatine Kinase CK-MB (CK-2) CK-MB (CK-2) Rel Index Troponin T C-Reactive Protein Albumin 03/25/17 03/25/17 03/25/17 11:53 17:15 20:12 WBC RBC Hgb Hct RDW Plt Count Lymph % (Auto) Barren % (Auto) Lymph # Barren # Seg Neutrophils % Seg Neuts % (Manual) Lymphocytes % (Manual) Monocytes % (Manual) Seg Neutrophils # Seg Neutrophils # Man Lymphocytes # (Manual) Monocytes # (Manual) Heparin Anti-Xa Level POC ABG pH 7.469 H POC ABG pCO2 POC ABG pO2 69 L Sodium Potassium Chloride Carbon Dioxide BUN Creatinine Glucose POC Glucose 165 H 173 H Calcium ALT Alkaline Phosphatase Total Creatine Kinase CK-MB (CK-2) CK-MB (CK-2) Rel Index Troponin T C-Reactive Protein Albumin 03/25/17 03/26/17 03/26/17 23:32 05:59 06:03 WBC RBC Hgb Hct RDW Plt Count Lymph % (Auto) Barren % (Auto) Lymph # Barren # Seg Neutrophils % Seg Neuts % (Manual) Lymphocytes % (Manual) Monocytes % (Manual) Seg Neutrophils # Seg Neutrophils # Man Lymphocytes # (Manual) Monocytes # (Manual) Heparin Anti-Xa Level POC ABG pH POC ABG pCO2 POC ABG pO2 Sodium 136 L Potassium Chloride 91.6 L Carbon Dioxide 20 L BUN 97 H Creatinine 8.0 H Glucose 239 H POC Glucose 231 H 214 H Calcium ALT Alkaline Phosphatase Total Creatine Kinase CK-MB (CK-2) CK-MB (CK-2) Rel Index Troponin T C-Reactive Protein Albumin 03/26/17 03/26/17 03/26/17 12:55 18:14 23:27 WBC RBC Hgb Hct RDW Plt Count Lymph % (Auto) Barren % (Auto) Lymph # Barren # Seg Neutrophils % Seg Neuts % (Manual) Lymphocytes % (Manual) Monocytes % (Manual) Seg Neutrophils # Seg Neutrophils # Man Lymphocytes # (Manual) Monocytes # (Manual) Heparin Anti-Xa Level POC ABG pH POC ABG pCO2 POC ABG pO2 Sodium Potassium Chloride Carbon Dioxide BUN Creatinine Glucose POC Glucose 220 H 236 H 221 H Calcium ALT Alkaline Phosphatase Total Creatine Kinase CK-MB (CK-2) CK-MB (CK-2) Rel Index Troponin T C-Reactive Protein Albumin 03/27/17 03/27/17 03/27/17 00:58 04:00 04:00 WBC 12.9 H RBC 3.33 L Hgb 9.2 L Hct 29.0 L RDW 18.0 H Plt Count Lymph % (Auto) Barren % (Auto) Lymph # Barren # Seg Neutrophils % Seg Neuts % (Manual) 78.0 H Lymphocytes % (Manual) 13.0 L Monocytes % (Manual) Seg Neutrophils # Seg Neutrophils # Man 10.1 H Lymphocytes # (Manual) Monocytes # (Manual) Heparin Anti-Xa Level POC ABG pH POC ABG pCO2 POC ABG pO2 Sodium Potassium Chloride 91.8 L Carbon Dioxide BUN 108 H Creatinine 9.0 H Glucose 237 H POC Glucose Calcium ALT Alkaline Phosphatase Total Creatine Kinase CK-MB (CK-2) CK-MB (CK-2) Rel Index Troponin T C-Reactive Protein 7.90 H Albumin 03/27/17 03/27/17 03/27/17 05:24 11:17 17:40 WBC RBC Hgb Hct RDW Plt Count Lymph % (Auto) Barren % (Auto) Lymph # Barren # Seg Neutrophils % Seg Neuts % (Manual) Lymphocytes % (Manual) Monocytes % (Manual) Seg Neutrophils # Seg Neutrophils # Man Lymphocytes # (Manual) Monocytes # (Manual) Heparin Anti-Xa Level POC ABG pH POC ABG pCO2 POC ABG pO2 Sodium Potassium Chloride Carbon Dioxide BUN Creatinine Glucose POC Glucose 231 H 172 H 223 H Calcium ALT Alkaline Phosphatase Total Creatine Kinase CK-MB (CK-2) CK-MB (CK-2) Rel Index Troponin T C-Reactive Protein Albumin 03/27/17 03/28/17 03/28/17 23:49 05:40 11:51 WBC RBC Hgb Hct RDW Plt Count Lymph % (Auto) Barren % (Auto) Lymph # Barren # Seg Neutrophils % Seg Neuts % (Manual) Lymphocytes % (Manual) Monocytes % (Manual) Seg Neutrophils # Seg Neutrophils # Man Lymphocytes # (Manual) Monocytes # (Manual) Heparin Anti-Xa Level POC ABG pH POC ABG pCO2 POC ABG pO2 Sodium Potassium Chloride Carbon Dioxide BUN Creatinine Glucose POC Glucose 184 H 212 H 187 H Calcium ALT Alkaline Phosphatase Total Creatine Kinase CK-MB (CK-2) CK-MB (CK-2) Rel Index Troponin T C-Reactive Protein Albumin 03/28/17 03/29/17 03/29/17 17:11 00:25 05:28 WBC RBC Hgb Hct RDW Plt Count Lymph % (Auto) Barren % (Auto) Lymph # Barren # Seg Neutrophils % Seg Neuts % (Manual) Lymphocytes % (Manual) Monocytes % (Manual) Seg Neutrophils # Seg Neutrophils # Man Lymphocytes # (Manual) Monocytes # (Manual) Heparin Anti-Xa Level POC ABG pH POC ABG pCO2 POC ABG pO2 Sodium Potassium Chloride Carbon Dioxide BUN Creatinine Glucose POC Glucose 177 H 147 H 143 H Calcium ALT Alkaline Phosphatase Total Creatine Kinase CK-MB (CK-2) CK-MB (CK-2) Rel Index Troponin T C-Reactive Protein Albumin 03/29/17 03/30/17 03/30/17 17:46 06:06 10:42 WBC RBC Hgb Hct RDW Plt Count Lymph % (Auto) Barren % (Auto) Lymph # Barren # Seg Neutrophils % Seg Neuts % (Manual) Lymphocytes % (Manual) Monocytes % (Manual) Seg Neutrophils # Seg Neutrophils # Man Lymphocytes # (Manual) Monocytes # (Manual) Heparin Anti-Xa Level POC ABG pH POC ABG pCO2 POC ABG pO2 Sodium Potassium Chloride Carbon Dioxide BUN Creatinine Glucose POC Glucose 184 H 294 H 299 H Calcium ALT Alkaline Phosphatase Total Creatine Kinase CK-MB (CK-2) CK-MB (CK-2) Rel Index Troponin T C-Reactive Protein Albumin 03/30/17 03/30/17 03/30/17 13:21 16:38 19:48 WBC RBC Hgb Hct RDW Plt Count Lymph % (Auto) Barren % (Auto) Lymph # Barren # Seg Neutrophils % Seg Neuts % (Manual) Lymphocytes % (Manual) Monocytes % (Manual) Seg Neutrophils # Seg Neutrophils # Man Lymphocytes # (Manual) Monocytes # (Manual) Heparin Anti-Xa Level POC ABG pH 7.466 H POC ABG pCO2 POC ABG pO2 Sodium Potassium Chloride Carbon Dioxide BUN Creatinine Glucose POC Glucose 230 H 277 H Calcium ALT Alkaline Phosphatase Total Creatine Kinase CK-MB (CK-2) CK-MB (CK-2) Rel Index Troponin T C-Reactive Protein Albumin 03/30/17 03/31/17 03/31/17 23:28 05:49 17:13 WBC RBC Hgb Hct RDW Plt Count Lymph % (Auto) Barren % (Auto) Lymph # Barren # Seg Neutrophils % Seg Neuts % (Manual) Lymphocytes % (Manual) Monocytes % (Manual) Seg Neutrophils # Seg Neutrophils # Man Lymphocytes # (Manual) Monocytes # (Manual) Heparin Anti-Xa Level POC ABG pH POC ABG pCO2 POC ABG pO2 Sodium Potassium Chloride Carbon Dioxide BUN Creatinine Glucose POC Glucose 203 H 261 H 227 H Calcium ALT Alkaline Phosphatase Total Creatine Kinase CK-MB (CK-2) CK-MB (CK-2) Rel Index Troponin T C-Reactive Protein Albumin 03/31/17 04/01/17 04/01/17 19:32 00:39 05:51 WBC RBC Hgb Hct RDW Plt Count Lymph % (Auto) Barren % (Auto) Lymph # Barren # Seg Neutrophils % Seg Neuts % (Manual) Lymphocytes % (Manual) Monocytes % (Manual) Seg Neutrophils # Seg Neutrophils # Man Lymphocytes # (Manual) Monocytes # (Manual) Heparin Anti-Xa Level POC ABG pH POC ABG pCO2 POC ABG pO2 Sodium Potassium Chloride Carbon Dioxide BUN Creatinine Glucose POC Glucose 238 H 147 H 185 H Calcium ALT Alkaline Phosphatase Total Creatine Kinase CK-MB (CK-2) CK-MB (CK-2) Rel Index Troponin T C-Reactive Protein Albumin 04/01/17 04/01/17 04/01/17 12:00 12:17 23:23 WBC RBC Hgb Hct RDW Plt Count Lymph % (Auto) Barren % (Auto) Lymph # Barren # Seg Neutrophils % Seg Neuts % (Manual) Lymphocytes % (Manual) Monocytes % (Manual) Seg Neutrophils # Seg Neutrophils # Man Lymphocytes # (Manual) Monocytes # (Manual) Heparin Anti-Xa Level POC ABG pH POC ABG pCO2 POC ABG pO2 Sodium 136 L Potassium 5.4 H Chloride 88.3 L Carbon Dioxide 20 L BUN 110 H Creatinine 10.8 H Glucose 209 H POC Glucose 261 H 302 H Calcium ALT Alkaline Phosphatase Total Creatine Kinase CK-MB (CK-2) CK-MB (CK-2) Rel Index Troponin T C-Reactive Protein Albumin 04/02/17 04/02/17 04/02/17 05:16 06:40 06:40 WBC RBC Hgb Hct RDW 19.6 H Plt Count Lymph % (Auto) 8.5 L Barren % (Auto) 12.8 H Lymph # 0.8 L Barren # 1.2 H Seg Neutrophils % 76.4 H Seg Neuts % (Manual) Lymphocytes % (Manual) Monocytes % (Manual) Seg Neutrophils # Seg Neutrophils # Man Lymphocytes # (Manual) Monocytes # (Manual) Heparin Anti-Xa Level POC ABG pH POC ABG pCO2 POC ABG pO2 Sodium Potassium 5.3 H Chloride 91.0 L Carbon Dioxide BUN 50 H Creatinine 6.0 H Glucose 183 H POC Glucose 213 H Calcium 10.8 H ALT Alkaline Phosphatase Total Creatine Kinase CK-MB (CK-2) CK-MB (CK-2) Rel Index Troponin T C-Reactive Protein Albumin 04/02/17 04/02/17 04/03/17 11:53 19:03 00:01 WBC RBC Hgb Hct RDW Plt Count Lymph % (Auto) Barren % (Auto) Lymph # Barren # Seg Neutrophils % Seg Neuts % (Manual) Lymphocytes % (Manual) Monocytes % (Manual) Seg Neutrophils # Seg Neutrophils # Man Lymphocytes # (Manual) Monocytes # (Manual) Heparin Anti-Xa Level POC ABG pH POC ABG pCO2 POC ABG pO2 Sodium Potassium Chloride Carbon Dioxide BUN Creatinine Glucose POC Glucose 203 H 260 H 147 H Calcium ALT Alkaline Phosphatase Total Creatine Kinase CK-MB (CK-2) CK-MB (CK-2) Rel Index Troponin T C-Reactive Protein Albumin 04/03/17 04/03/17 04/03/17 06:09 07:03 07:03 WBC RBC Hgb Hct RDW 20.3 H Plt Count Lymph % (Auto) 13.2 L Barren % (Auto) 14.5 H Lymph # 1.0 L Barren # 1.1 H Seg Neutrophils % Seg Neuts % (Manual) Lymphocytes % (Manual) Monocytes % (Manual) Seg Neutrophils # Seg Neutrophils # Man Lymphocytes # (Manual) Monocytes # (Manual) Heparin Anti-Xa Level POC ABG pH POC ABG pCO2 POC ABG pO2 Sodium 133 L Potassium 6.2 H* Chloride 88.3 L Carbon Dioxide BUN 68 H Creatinine 7.5 H Glucose 138 H POC Glucose 154 H Calcium ALT Alkaline Phosphatase Total Creatine Kinase CK-MB (CK-2) CK-MB (CK-2) Rel Index Troponin T C-Reactive Protein Albumin 04/03/17 04/04/17 04/04/17 18:19 00:26 05:27 WBC RBC 3.44 L Hgb 9.9 L Hct RDW 20.0 H Plt Count Lymph % (Auto) 12.3 L Barren % (Auto) 14.7 H Lymph # 1.1 L Barren # 1.3 H Seg Neutrophils % 70.3 H Seg Neuts % (Manual) Lymphocytes % (Manual) Monocytes % (Manual) Seg Neutrophils # Seg Neutrophils # Man Lymphocytes # (Manual) Monocytes # (Manual) Heparin Anti-Xa Level POC ABG pH POC ABG pCO2 POC ABG pO2 Sodium Potassium Chloride Carbon Dioxide BUN Creatinine Glucose POC Glucose 331 H 230 H Calcium ALT Alkaline Phosphatase Total Creatine Kinase CK-MB (CK-2) CK-MB (CK-2) Rel Index Troponin T C-Reactive Protein Albumin 04/04/17 04/04/17 04/04/17 05:27 07:09 12:14 WBC RBC Hgb Hct RDW Plt Count Lymph % (Auto) [place] % (Auto) Lymph # [place] # Seg Neutrophils % Seg Neuts % (Manual) Lymphocytes % (Manual) Monocytes % (Manual) Seg Neutrophils # Seg Neutrophils # Man Lymphocytes # (Manual) Monocytes # (Manual) Heparin Anti-Xa Level POC ABG pH POC ABG pCO2 POC ABG pO2 Sodium 134 L Potassium Chloride Carbon Dioxide BUN 42 H Creatinine 6.0 H Glucose 175 H POC Glucose 171 H 217 H Calcium ALT Alkaline Phosphatase Total Creatine Kinase CK-MB (CK-2) CK-MB (CK-2) Rel Index Troponin T C-Reactive Protein Albumin 04/04/17 04/04/17 04/05/17 17:23 23:29 05:48 WBC RBC Hgb Hct RDW Plt Count Lymph % (Auto) [place] % (Auto) Lymph # [place] # Seg Neutrophils % Seg Neuts % (Manual) Lymphocytes % (Manual) Monocytes % (Manual) Seg Neutrophils # Seg Neutrophils # Man Lymphocytes # (Manual) Monocytes # (Manual) Heparin Anti-Xa Level POC ABG pH POC ABG pCO2 POC ABG pO2 Sodium Potassium Chloride Carbon Dioxide BUN Creatinine Glucose POC Glucose 168 H 188 H 114 H Calcium ALT Alkaline Phosphatase Total Creatine Kinase CK-MB (CK-2) CK-MB (CK-2) Rel Index Troponin T C-Reactive Protein Albumin 04/05/17 04/05/17 04/05/17 07:56 11:59 12:23 WBC RBC 3.18 L Hgb 9.2 L Hct 28.8 L RDW 20.2 H Plt Count 105 L Lymph % (Auto) [place] % (Auto) Lymph # [place] # Seg Neutrophils % Seg Neuts % (Manual) Lymphocytes % (Manual) Monocytes % (Manual) Seg Neutrophils # Seg Neutrophils # Man Lymphocytes # (Manual) Monocytes # (Manual) Heparin Anti-Xa Level POC ABG pH POC ABG pCO2 POC ABG pO2 Sodium 126 L D Potassium 6.7 H* D Chloride 86.9 L Carbon Dioxide 20 L BUN 60 H Creatinine 7.6 H Glucose 118 H POC Glucose 198 H Calcium ALT Alkaline Phosphatase Total Creatine Kinase CK-MB (CK-2) CK-MB (CK-2) Rel Index Troponin T C-Reactive Protein Albumin 04/05/17 04/05/17 04/06/17 12:23 18:42 00:37 WBC RBC Hgb Hct RDW Plt Count Lymph % (Auto) [place] % (Auto) Lymph # [place] # Seg Neutrophils % Seg Neuts % (Manual) Lymphocytes % (Manual) Monocytes % (Manual) Seg Neutrophils # Seg Neutrophils # Man Lymphocytes # (Manual) Monocytes # (Manual) Heparin Anti-Xa Level POC ABG pH POC ABG pCO2 POC ABG pO2 Sodium Potassium 3.2 L D Chloride Carbon Dioxide BUN Creatinine Glucose POC Glucose 217 H 177 H Calcium ALT Alkaline Phosphatase Total Creatine Kinase CK-MB (CK-2) CK-MB (CK-2) Rel Index Troponin T C-Reactive Protein Albumin 04/06/17 04/06/17 04/06/17 05:40 07:12 07:12 WBC RBC 3.34 L Hgb 9.5 L Hct RDW 20.5 H Plt Count 107 L Lymph % (Auto) 11.3 L [place] % (Auto) 14.0 H Lymph # 0.8 L [place] # 1.0 H Seg Neutrophils % 72.6 H Seg Neuts % (Manual) Lymphocytes % (Manual) Monocytes % (Manual) Seg Neutrophils # Seg Neutrophils # Man Lymphocytes # (Manual) Monocytes # (Manual) Heparin Anti-Xa Level POC ABG pH POC ABG pCO2 POC ABG pO2 Sodium 133 L D Potassium Chloride 91.7 L Carbon Dioxide BUN 29 H Creatinine 4.6 H Glucose 139 H POC Glucose 171 H Calcium ALT Alkaline Phosphatase Total Creatine Kinase CK-MB (CK-2) CK-MB (CK-2) Rel Index Troponin T C-Reactive Protein Albumin 04/06/17 04/06/17 04/07/17 12:03 16:02 06:53 WBC RBC 3.20 L Hgb 9.3 L Hct 28.9 L RDW 20.5 H Plt Count 103 L Lymph % (Auto) [place] % (Auto) 15.6 H Lymph # 0.8 L [place] # 0.9 H Seg Neutrophils % Seg Neuts % (Manual) Lymphocytes % (Manual) Monocytes % (Manual) Seg Neutrophils # Seg Neutrophils # Man Lymphocytes # (Manual) Monocytes # (Manual) Heparin Anti-Xa Level POC ABG pH POC ABG pCO2 POC ABG pO2 Sodium Potassium Chloride Carbon Dioxide BUN Creatinine Glucose POC Glucose 211 H 221 H Calcium ALT Alkaline Phosphatase Total Creatine Kinase CK-MB (CK-2) CK-MB (CK-2) Rel Index Troponin T C-Reactive Protein Albumin 04/07/17 04/07/17 06:53 12:02 WBC RBC Hgb Hct RDW Plt Count Lymph % (Auto) [place] % (Auto) Lymph # [place] # Seg Neutrophils % Seg Neuts % (Manual) Lymphocytes % (Manual) Monocytes % (Manual) Seg Neutrophils # Seg Neutrophils # Man Lymphocytes # (Manual) Monocytes # (Manual) Heparin Anti-Xa Level POC ABG pH POC ABG pCO2 POC ABG pO2 Sodium 133 L Potassium 5.1 H D Chloride 89.6 L Carbon Dioxide BUN 42 H Creatinine 6.1 H Glucose POC Glucose 143 H Calcium ALT Alkaline Phosphatase Total Creatine Kinase CK-MB (CK-2) CK-MB (CK-2) Rel Index Troponin T C-Reactive Protein Albumin Allied health notes reviewed: RT
--- NOTE | 2017-04-07 15:05 | Progress Note ---
Assessment and Plan Assessment and Plan Assessment and plan: 66-year-old female presents to the emergency department complaining of chest pain after dialysis. While in triage, the patient went unresponsive, and without a pulse, No palpable pulses were identified. Patient was placed on a monitoring analyst and ventricular fibrillation was noted. Patient was defibrillated a single time with 200 J. She received CPR protocol, was intubated and had ROSC, and she was then taken to the ICU. Postarrest ECG was consistent with anterior STEMI. Code STEMI was activated, she was taken to chemical lab technician and received angiogram ; stent x 2 in LAD noted to be patent, but had distal LAD spasm Cardiovascular cardiac arrest; Vfib, STEMI, ACS, Distal LAD spasm, cardiogenic shock Cardiology input appreciated, status post cath with patent stents she was rx with amio drip, received heparin ggt x 24 hours, received Dopamine drip for Cardiogenic shock and hypotension,now improved; currently on Lopressor for rate control and now hypertensive -Hypertension. continue antihypertensive medications -Hyperlipidemia- Continue statin therapy -for Lifevest prior to DC, will fup with EP as an outpatient for ICD placement Pulmonary Acute hypoxic respiratory failure, mech vent >96 hours Status post extubation 03/24/17, continue oxygen supplementation and noninvasive positive pressure ventilation as needed GI Nausea/Vomiting- Start on zofran, now resolved Dysphagia has now resolved, continue diet Toxic metabolic encephalopathy EEG was reviewed, seizure is unlikely. 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 -WBC count is slowly downtrending, has completed empiric abx course RENAL/FEN End stage renal disease on hemodialysis. Nephrology following. Continue hemodialysis Hyperkalemia-corrected with dialysis Complete immobility due to frailty PT consult, patient will need SNIF placement Critical illness myopathy Pain medications as needed Severe malnutrition/Dysphagia manager credit collections and speech therapy consult appreciated s/p MBS, report reviewed, there was no aspiration, patient has been transitioned to mechanical soft diet and thin liquids. Diabetes mellitus type 2. Accu-Cheks and sliding scale insulin. Morbid obesity- will patient financial counselor when clinically improved about lifestyle modification Anemia of CKD. Follow H&H. Transfuse as necessary. DVT heparin subq, Discussed plan with the patient and her daughter Plan for SNIF placement, case management was updated on the plan Patient has appealed her discharge.Patient ready for discharge. Subjective Date of service: 04/07/17 Principal diagnosis: Acute Hypoxemic Resp Failure; STEMI Interval history: Doing better Objective - Constitutional Vitals: Vital Signs - 12hr 04/07/17 04/07/17 04/07/17 04:31 08:36 08:46 Temperature Pulse Rate 88 Pulse Rate [ 66 70 Anterior Bilateral Throughout] Pulse Rate [ From Monitor] Respiratory Rate Respiratory 18 18 Rate [Anterior Bilateral Throughout] Blood Pressure 141/58 Blood Pressure [Right Arm] O2 Sat by Pulse Oximetry 04/07/17 04/07/17 04/07/17 09:42 09:49 10:00 Temperature 98.8 F Pulse Rate 64 Pulse Rate [ Anterior Bilateral Throughout] Pulse Rate [ 64 From Monitor] Respiratory 20 20 Rate Respiratory Rate [Anterior Bilateral Throughout] Blood Pressure 147/68 Blood Pressure 147/68 [Right Arm] O2 Sat by Pulse 97 Oximetry 04/07/17 04/07/17 13:54 14:06 Temperature Pulse Rate Pulse Rate [ 66 65 Anterior Bilateral Throughout] Pulse Rate [ From Monitor] Respiratory Rate Respiratory 18 18 Rate [Anterior Bilateral Throughout] Blood Pressure Blood Pressure [Right Arm] O2 Sat by Pulse Oximetry General appearance: Present: no acute distress, well-nourished - EENT Eyes: PERRL, EOM intact ENT: hearing intact, clear oral mucosa Ears: bilateral: normal - Neck Neck: supple, normal ROM - Respiratory Respiratory effort: normal Respiratory: bilateral: CTA - Breasts Breasts: normal - Cardiovascular Rhythm: regular Heart Sounds: Present: S1 & S2. Absent: gallop, rub Extremities: pulses intact, No edema, normal color, Full ROM - Gastrointestinal General gastrointestinal: Present: soft, non-tender, non-distended, normal bowel sounds - Genitourinary Female genitourinary: normal - Integumentary Integumentary: clear, warm, dry - Musculoskeletal Musculoskeletal: 1, strength equal bilaterally - Neurologic Neurologic: moves all extremities - Psychiatric Psychiatric: memory intact, appropriate mood/affect, intact judgment & insight - Labs CBC & Chem 7: 04/07/17 06:53 04/07/17 06:53 Labs: Abnormal lab results 04/06/17 04/07/17 04/07/17 Range/Units 16:02 06:53 06:53 RBC 3.20 L (3.65-5.03) M/mm3 Hgb 9.3 L (10.1-14.3) gm/dl Hct 28.9 L (30.3-42.9) % RDW 20.5 H (13.2-15.2) % Plt Count 103 L (140-440) K/mm3 [place] % (Auto) 15.6 H (0.0-7.3) % Lymph # 0.8 L (1.2-5.4) K/mm3 [place] # 0.9 H (0.0-0.8) K/mm3 Sodium 133 L (137-145) mmol/L Potassium 5.1 H D (3.6-5.0) mmol/L Chloride 89.6 L (98-107) mmol/L BUN 42 H (7-17) mg/dL Creatinine 6.1 H (0.7-1.2) mg/dL POC Glucose 221 H (70-105) 04/07/17 Range/Units 12:02 RBC (3.65-5.03) M/mm3 Hgb (10.1-14.3) gm/dl Hct (30.3-42.9) % RDW (13.2-15.2) % Plt Count (140-440) K/mm3 [place] % (Auto) (0.0-7.3) % Lymph # (1.2-5.4) K/mm3 [place] # (0.0-0.8) K/mm3 Sodium (137-145) mmol/L Potassium (3.6-5.0) mmol/L Chloride (98-107) mmol/L BUN (7-17) mg/dL Creatinine (0.7-1.2) mg/dL POC Glucose 143 H (70-105)
--- NOTE | 2017-04-07 15:06 | Progress Note ---
Assessment and Plan Nephrology and pulmonary notes are noted. No new cardiac symptoms. Continue current management S/p V fib arrest 03/16 Pt. pulseless on presentation to ER-->CPR initiated-->ventricular fibrillation on the monitor-->defibrillated a single time with 200 J and resumption of compressions-->femoral pulse regained/ST on the monitor Post arrest ECG was consistent with anterior STEMI Lifevest placement and OP follow up with EP given VFib occurred prior to STEMI S/p STEMI Hyperkalemia dialysis per nephrology Coronary artery disease s/p PCI [facility] 03/16: patent LAD stents, possible distal LAD spasm pt. is allergic to ASA, continue Plavix, statin, metoprolol Post op afib-->currently SR Hypertension stable Hyperlipidemia Pulmonary HTN ESRD on HD - Patient Problems (1) Cardiac arrest due to underlying cardiac condition Current Visit: Yes Status: Acute (2) STEMI (ST elevation myocardial infarction) Current Visit: Yes Status: Acute Qualifiers: Involved coronary artery: unspecified coronary artery Qualified Code(s): I21.3 - ST elevation (STEMI) myocardial infarction of unspecified site (3) Pulmonary HTN Current Visit: Yes Status: Chronic (4) Acute hypoxemic respiratory failure Current Visit: Yes Status: Resolved (5) Hypertension Current Visit: No Status: Chronic Qualifiers: Hypertension type: H Subjective Date of service: 04/07/17 Principal diagnosis: Acute Hypoxemic Resp Failure; STEMI Interval history: Patient is complaining about general weakness. Physical therapy was ordered in am not sure how many times they have seen her both brothers were with her and I had a long conversation regarding her cardiac status. Patient continues to complain about left upper chest wall pain. Objective Vital Signs Temp Pulse Pulse Pulse Pulse Resp Resp 04/07/17 14:06 65 18 04/07/17 13:54 66 18 04/07/17 10:00 20 04/07/17 09:49 64 04/07/17 09:42 98.8 F 64 20 04/07/17 08:46 70 18 04/07/17 08:36 66 18 04/07/17 04:31 88 04/06/17 23:05 22 04/06/17 22:05 20 04/06/17 22:04 100 H 04/06/17 22:00 99.2 F 72 22 04/06/17 20:02 74 18 04/06/17 19:51 72 18 04/06/17 16:00 98.9 F 74 22 04/06/17 15:48 73 18 04/06/17 15:40 72 16 Resp BP BP Pulse Ox 04/07/17 14:06 04/07/17 13:54 04/07/17 10:00 97 04/07/17 09:49 147/68 04/07/17 09:42 147/68 04/07/17 08:46 04/07/17 08:36 04/07/17 04:31 141/58 04/06/17 23:05 04/06/17 22:05 04/06/17 22:04 105/58 04/06/17 22:00 22 105/58 99 04/06/17 20:02 04/06/17 19:51 04/06/17 16:00 109/53 97 04/06/17 15:48 04/06/17 15:40 - Physical Examination General: Appears Well, No Apparent Distress HEENT: Positive: Normocephaly, Mucus Membranes Moist Neck: Positive: neck supple, trachea midline Cardiac: Positive: Reg Rate and Rhythm Lungs: Positive: clear to auscultation Neuro: Positive: Grossly Intact Abdomen: Positive: Soft, Active Bowel Sounds Skin: Negative: Clear, Rash Musculoskeletal: No Fluid Collection, No Pain, Normal Range of Motion, other ( reproducible anterior chest wall tenderness) Extremities: Present: upper extr. pulses, lower extr. pulses. Absent: edema - Labs and Meds CBC 04/07/17 Range/Units 06:53 WBC 5.7 (4.5-11.0) K/mm3 RBC 3.20 L (3.65-5.03) M/mm3 Hgb 9.3 L (10.1-14.3) gm/dl Hct 28.9 L (30.3-42.9) % Plt Count 103 L (140-440) K/mm3 Lymph # 0.8 L (1.2-5.4) K/mm3 [place] # 0.9 H (0.0-0.8) K/mm3 Eos # 0.1 (0.0-0.4) K/mm3 Baso # 0.0 (0.0-0.1) K/mm3 Comprehensive Metabolic Panel 04/07/17 Range/Units 06:53 Sodium 133 L (137-145) mmol/L Potassium 5.1 H D (3.6-5.0) mmol/L Chloride 89.6 L (98-107) mmol/L Carbon Dioxide 24 (22-30) mmol/L BUN 42 H (7-17) mg/dL Creatinine 6.1 H (0.7-1.2) mg/dL Glucose 80 (65-100) mg/dL Calcium 8.8 (8.4-10.2) mg/dL - Imaging and Cardiology EKG: report reviewed, image reviewed Echo: report reviewed (echo reviewed - EF 60 - 65%, mild MR< mild TR, moderate , mild LVH, mild to moderate pulmonary HTN, RVSP 47mmHg. ) Cardiac cath: report reviewed (patent lad stents and distal lad spasm resolved) - EKG Sinus rhythms and dysrhythmias: sinus rhythm Myocardial infarction: inferior MS (acute or rec, anterior MS (acute or rec - Allied health notes Allied health notes reviewed: RT
[2017-04-08] MEDS: DUONEB *Not for PRN Use IH SCH ×4 (01:59→21:47)
[2017-04-08] MEDS: LOPRESSOR PO SCH ×5 (04:20→22:14)
[2017-04-08 05:02] LABS: Basophils % (Auto) 0.6 % (0.0-1.8); Eosinophils % (Auto) 1.9 % (0.0-4.3); Hematocrit 26.3 % (30.3-42.9); Hemoglobin 8.7 gm/dl (10.1-14.3); Mean Corpuscular HGB Conc 33 % (30-34); Mean Corpuscular Hemoglobin 29 pg (28-32); Mean Corpuscular Volume 89 fl (79-97); Platelet Count 104 K/mm3 (140-440); Red Blood Count 2.97 M/mm3 (3.65-5.03); Red Cell Distribution Width 19.6 % (13.2-15.2); White Blood Count 5.8 K/mm3 (4.5-11.0)
[2017-04-08 05:18] LABS: BUN/Creatinine Ratio 8.08; Calcium 8.5 mg/dL (8.4-10.2); Chloride 85.9 mmol/L (98-107); Potassium 5.5 mmol/L (3.6-5.0)
[2017-04-08] MEDS: HEPARIN SUB-Q SCH ×3 (06:47→22:14)
--- NOTE | 2017-04-08 09:14 | Progress Note ---
Assessment and Plan - Patient Problems (1) ESRD on dialysis Current Visit: Yes Status: Acute Plan to address problem: HD today-M/W/ schedule. UF as tolerated. Adjust meds per renal function. (2) Aortic stenosis Current Visit: Yes Status: Chronic Qualifiers: Cardiac valve disease etiology: C (3) Cardiac arrest due to underlying cardiac condition Current Visit: Yes Status: Resolved (4) Pulmonary HTN Current Visit: Yes Status: Chronic (5) CVA (cerebral vascular accident) Current Visit: No Status: Acute Qualifiers: CVA mechanism: C Precerebral and cerebral artery: P Laterality of affected vessel: L (6) Type 2 diabetes mellitus Current Visit: No Status: Chronic Qualifiers: Diabetes mellitus complication status: D Diabetes mellitus complication detail: D Diabetic retinopathy severity: D Proliferative retinopathy type: P Diabetes mellitus macular edema: D Diabetes mellitus senior living insulin use : D Laterality: L Chronic kidney disease stage: C (7) Hyponatremia Current Visit: Yes Status: Acute (8) Hyperkalemia Current Visit: Yes Status: Acute Plan to address problem: monitor following dialysis. (9) Anemia in CKD (chronic kidney disease) Current Visit: Yes Status: Chronic Qualifiers: Chronic kidney disease stage: C (10) Physical deconditioning Current Visit: Yes Status: Acute Subjective Date of service: 04/08/17 Principal diagnosis: Acute Hypoxemic Resp Failure; STEMI Interval history: pt is awake, not in acute distress, chart was reviewed Objective - Vital Signs Vital signs: Vital Signs - 12hr 04/07/17 04/07/17 04/07/17 22:00 22:06 22:48 Temperature Pulse Rate 74 Pulse Rate [ Anterior Bilateral Throughout] Pulse Rate [ From Monitor] Respiratory 21 22 Rate Respiratory Rate [Anterior Bilateral Throughout] Respiratory 22 Rate [Bilateral Posterior Back ] Blood Pressure 111/54 Blood Pressure [Right Arm] O2 Sat by Pulse 100 Oximetry 04/07/17 04/08/17 04/08/17 23:48 00:58 01:59 Temperature 98.8 F Pulse Rate Pulse Rate [ Anterior Bilateral Throughout] Pulse Rate [ 70 From Monitor] Respiratory 20 20 Rate Respiratory Rate [Anterior Bilateral Throughout] Respiratory Rate [Bilateral Posterior Back ] Blood Pressure Blood Pressure 107/40 [Right Arm] O2 Sat by Pulse 100 98 Oximetry 04/08/17 04/08/17 04/08/17 04:20 07:30 07:39 Temperature Pulse Rate 76 Pulse Rate [ 77 Anterior Bilateral Throughout] Pulse Rate [ From Monitor] Respiratory Rate Respiratory 18 Rate [Anterior Bilateral Throughout] Respiratory Rate [Bilateral Posterior Back ] Blood Pressure 120/56 Blood Pressure [Right Arm] O2 Sat by Pulse 100 Oximetry 04/08/17 07:40 Temperature Pulse Rate Pulse Rate [ 77 Anterior Bilateral Throughout] Pulse Rate [ From Monitor] Respiratory Rate Respiratory 18 Rate [Anterior Bilateral Throughout] Respiratory Rate [Bilateral Posterior Back ] Blood Pressure Blood Pressure [Right Arm] O2 Sat by Pulse Oximetry - General Appearance General appearance: well-developed, chronically ill EENT: mucous membranes dry Neck: no JVD Respiratory: Present: Decreased Breath Sounds Cardiology: regular Gastrointestinal: normoactive bowel sounds Musculoskeletal: other (1+ edema) Psychiatric: cooperative - Lab 04/08/17 04:48 04/08/17 04:48 Most recent lab results Calcium 8.5 mg/dL (8.4-10.2) 04/08/17 04:48
[2017-04-08] MEDS: TYLENOL FEEDTUBE PRN (10:23)
[2017-04-08] MEDS: LEVEMIR SUB-Q SCH (10:30)
[2017-04-08] MEDS: PLAVIX PO SCH (10:30)
[2017-04-08] MEDS: PEPCID PO SCH (10:41)
--- NOTE | 2017-04-08 13:22 | Progress Note ---
Assessment and Plan Hb 8.7,Na 127,K 5.5, Plt 104.Present management.F/U Plt closely. - Patient Problems (1) Acute hypoxemic respiratory failure Current Visit: Yes Status: Resolved (2) Cardiac arrest Current Visit: Yes Status: Resolved (3) Cardiac arrest due to underlying cardiac condition Current Visit: Yes Status: Resolved (4) ESRD on dialysis Current Visit: Yes Status: Acute (5) Obesity (BMI 30-39.9) Current Visit: Yes Status: Chronic (6) STEMI (ST elevation myocardial infarction) Current Visit: Yes Status: Acute Qualifiers: Involved coronary artery: unspecified coronary artery Qualified Code(s): I21.3 - ST elevation (STEMI) myocardial infarction of unspecified site (7) Seizure Current Visit: Yes Status: Acute (8) Sepsis syndrome Current Visit: Yes Status: Resolved (9) Aortic stenosis Current Visit: Yes Status: Chronic Qualifiers: Cardiac valve disease etiology: C (10) Pulmonary HTN Current Visit: Yes Status: Chronic (11) CVA (cerebral vascular accident) Current Visit: No Status: Acute Qualifiers: CVA mechanism: C Precerebral and cerebral artery: P Laterality of affected vessel: L (12) Kidney stone Current Visit: No Status: Chronic (13) Rectal bleed Current Visit: No Status: Resolved (14) UTI (urinary tract infection) Current Visit: No Status: Resolved Qualifiers: Urinary tract infection type: U Hematuria presence: H Indwelling urinary catheter type: I Encounter type: E (15) Hypertension Current Visit: No Status: Chronic Qualifiers: Hypertension type: H (16) Type 2 diabetes mellitus Current Visit: No Status: Chronic Qualifiers: Diabetes mellitus complication status: D Diabetes mellitus complication detail: D Diabetic retinopathy severity: D Proliferative retinopathy type: P Diabetes mellitus macular edema: D Diabetes mellitus termite helper insulin use : D Laterality: L Chronic kidney disease stage: C Subjective Date of service: 04/08/17 Principal diagnosis: Acute Hypoxemic Resp Failure; STEMI Interval history: Resting in bed.c/o gen.body pain and also pain in the toes.Undergoing H.D. Objective Vital Signs Temp Pulse Pulse Pulse Resp Resp Resp 04/08/17 13:15 80 04/08/17 13:00 80 04/08/17 12:45 84 04/08/17 12:30 82 04/08/17 12:15 80 04/08/17 12:00 82 07/10/17 11:45 80 04/08/17 11:30 80 04/08/17 11:15 80 04/08/17 11:00 82 04/08/17 10:45 80 04/08/17 10:33 83 04/08/17 10:30 84 04/08/17 10:23 20 04/08/17 10:20 98.9 F 84 18 04/08/17 10:00 98.9 F 83 20 04/08/17 07:40 77 18 04/08/17 07:39 04/08/17 07:30 77 18 04/08/17 04:20 76 04/08/17 01:59 04/08/17 00:58 98.8 F 70 20 04/07/17 23:48 20 04/07/17 22:48 22 04/07/17 22:06 74 04/07/17 22:00 21 22 04/07/17 20:23 69 16 04/07/17 20:13 69 16 04/07/17 16:59 68 04/07/17 14:06 65 18 04/07/17 13:54 66 18 BP BP Pulse Ox Pulse Ox 04/08/17 13:15 101/49 04/08/17 13:00 90/50 04/08/17 12:45 94/43 04/08/17 12:30 101/49 04/08/17 12:15 98/44 04/08/17 12:00 96/49 04/08/17 11:45 103/47 04/08/17 11:30 121/49 04/08/17 11:15 113/53 04/08/17 11:00 130/60 04/08/17 10:45 112/53 04/08/17 10:33 128/50 04/08/17 10:30 114/50 04/08/17 10:23 04/08/17 10:20 123/56 100 04/08/17 10:00 128/50 98 04/08/17 07:40 04/08/17 07:39 100 04/08/17 07:30 04/08/17 04:20 120/56 04/08/17 01:59 98 04/08/17 00:58 107/40 100 04/07/17 23:48 04/07/17 22:48 07/09/17 22:06 111/54 04/07/17 22:00 100 04/07/17 20:23 04/07/17 20:13 99 04/07/17 16:59 104/41 04/07/17 14:06 04/07/17 13:54 - Physical Examination General: Appears Well, No Apparent Distress HEENT: Positive: Normocephaly, Mucus Membranes Moist Neck: Positive: neck supple, trachea midline Cardiac: Positive: Reg Rate and Rhythm Lungs: Positive: clear to auscultation, Normal Breath Sounds Neuro: Positive: Grossly Intact Abdomen: Positive: Soft, Active Bowel Sounds Skin: Negative: Clear, Rash Musculoskeletal: No Fluid Collection, No Pain, Normal Range of Motion, other ( reproducible anterior chest wall tenderness) Extremities: Present: upper extr. pulses, lower extr. pulses. Absent: edema - Labs and Meds CBC 04/08/17 Range/Units 04:48 WBC 5.8 (4.5-11.0) K/mm3 RBC 2.97 L (3.65-5.03) M/mm3 Hgb 8.7 L (10.1-14.3) gm/dl Hct 26.3 L (30.3-42.9) % Plt Count 104 L (140-440) K/mm3 Lymph # 0.8 L (1.2-5.4) K/mm3 [place] # 0.8 (0.0-0.8) K/mm3 Eos # 0.1 (0.0-0.4) K/mm3 Baso # 0.0 (0.0-0.1) K/mm3 Comprehensive Metabolic Panel 04/08/17 Range/Units 04:48 Sodium 127 L (137-145) mmol/L Potassium 5.5 H (3.6-5.0) mmol/L Chloride 85.9 L (98-107) mmol/L Carbon Dioxide 22 (22-30) mmol/L BUN 59 H (7-17) mg/dL Creatinine 7.3 H (0.7-1.2) mg/dL Glucose 97 (65-100) mg/dL Calcium 8.5 (8.4-10.2) mg/dL - Imaging and Cardiology EKG: report reviewed, image reviewed Echo: report reviewed (echo reviewed - EF 60 - 65%, mild MR< mild TR, moderate , mild LVH, mild to moderate pulmonary HTN, RVSP 47mmHg. ) Cardiac cath: report reviewed (patent lad stents and distal lad spasm resolved) - EKG Sinus rhythms and dysrhythmias: sinus rhythm Myocardial infarction: inferior NM (acute or rec, anterior NM (acute or rec - Allied health notes Allied health notes reviewed: RT
[2017-04-08] MEDS: PROCRIT IV PRN (13:49)
--- NOTE | 2017-04-08 18:48 | Progress Note ---
Assessment and Plan Patient alert, awake and weak and resting on 2 litres O2 O2 saturation 100%.No complaint of shortness of breath.Complaining left sided chest wall pain. - Patient Problems (1) Acute hypoxemic respiratory failure Current Visit: Yes Status: Resolved Plan to address problem: Patient resting on 2 litres O2.. O2 saturation 100%. Albuterol/atrovent aerosol treatments q 6 hours. Continue S/C Heparin. Continue Famotidine. (2) Hypotension Current Visit: Yes Status: Acute Qualifiers: Hypotension type: H Trimester: T Plan to address problem: Improved. Blood pressure 109/52. (3) ESRD on dialysis Current Visit: Yes Status: Acute Plan to address problem: Management as per nephrology. (4) Pneumomediastinum Current Visit: Yes Status: Acute Plan to address problem: Repeat chest xray did not report pneumomediastinum or Pneumothorax. (5) Obesity (BMI 30-39.9) Current Visit: Yes Status: Chronic Plan to address problem: Recommend to loose weight. Weight reduction diet. (6) Sleep apnea, obstructive Current Visit: Yes Status: Acute Plan to address problem: Patient says has history of sleep apnea. Uses CPAP at home. Place her on BIPAP during night time. Subjective Date of service: 04/08/17 Principal diagnosis: Acute Hypoxemic Resp Failure; STEMI Interval history: Patient alert, awake and weak and resting on 2 litres O2 O2 saturation 100%.No complaint of shortness of breath.Complaining left sided chest wall pain. Objective Vital Signs - 12hr 04/08/17 04/08/17 04/08/17 07:30 07:39 07:40 Temperature Pulse Rate Pulse Rate [ 77 77 Anterior Bilateral Throughout] Pulse Rate [ From Monitor] Respiratory Rate Respiratory 18 18 Rate [Anterior Bilateral Throughout] Blood Pressure Blood Pressure [Right Arm] O2 Sat by Pulse 100 Oximetry O2 Sat by Pulse Oximetry [ Anterior Bilateral Throughout] 04/08/17 04/08/17 04/08/17 10:00 10:20 10:23 Temperature 98.9 F 98.9 F Pulse Rate 84 Pulse Rate [ Anterior Bilateral Throughout] Pulse Rate [ 83 From Monitor] Respiratory 20 18 20 Rate Respiratory Rate [Anterior Bilateral Throughout] Blood Pressure 123/56 Blood Pressure 128/50 [Right Arm] O2 Sat by Pulse 98 Oximetry O2 Sat by Pulse 100 Oximetry [ Anterior Bilateral Throughout] 04/08/17 04/08/17 04/08/17 10:30 10:33 10:45 Temperature Pulse Rate 84 83 80 Pulse Rate [ Anterior Bilateral Throughout] Pulse Rate [ From Monitor] Respiratory Rate Respiratory Rate [Anterior Bilateral Throughout] Blood Pressure 114/50 128/50 112/53 Blood Pressure [Right Arm] O2 Sat by Pulse Oximetry O2 Sat by Pulse Oximetry [ Anterior Bilateral Throughout] 04/08/17 04/08/17 04/08/17 11:00 11:15 11:30 Temperature Pulse Rate 82 80 80 Pulse Rate [ Anterior Bilateral Throughout] Pulse Rate [ From Monitor] Respiratory Rate Respiratory Rate [Anterior Bilateral Throughout] Blood Pressure 130/60 113/53 121/49 Blood Pressure [Right Arm] O2 Sat by Pulse Oximetry O2 Sat by Pulse Oximetry [ Anterior Bilateral Throughout] 04/08/17 04/08/17 04/08/17 11:45 12:00 12:15 Temperature Pulse Rate 80 82 80 Pulse Rate [ Anterior Bilateral Throughout] Pulse Rate [ From Monitor] Respiratory Rate Respiratory Rate [Anterior Bilateral Throughout] Blood Pressure 103/47 96/49 98/44 Blood Pressure [Right Arm] O2 Sat by Pulse Oximetry O2 Sat by Pulse Oximetry [ Anterior Bilateral Throughout] 04/08/17 04/08/17 04/08/17 12:30 12:45 13:00 Temperature Pulse Rate 82 84 80 Pulse Rate [ Anterior Bilateral Throughout] Pulse Rate [ From Monitor] Respiratory Rate Respiratory Rate [Anterior Bilateral Throughout] Blood Pressure 101/49 94/43 90/50 Blood Pressure [Right Arm] O2 Sat by Pulse Oximetry O2 Sat by Pulse Oximetry [ Anterior Bilateral Throughout] 04/08/17 04/08/17 04/08/17 13:15 13:30 13:45 Temperature Pulse Rate 80 82 80 Pulse Rate [ Anterior Bilateral Throughout] Pulse Rate [ From Monitor] Respiratory Rate Respiratory Rate [Anterior Bilateral Throughout] Blood Pressure 101/49 105/47 104/50 Blood Pressure [Right Arm] O2 Sat by Pulse Oximetry O2 Sat by Pulse Oximetry [ Anterior Bilateral Throughout] 04/08/17 04/08/17 04/08/17 13:50 14:00 14:02 Temperature Pulse Rate 88 Pulse Rate [ 78 79 Anterior Bilateral Throughout] Pulse Rate [ From Monitor] Respiratory Rate Respiratory 18 18 Rate [Anterior Bilateral Throughout] Blood Pressure 111/51 Blood Pressure [Right Arm] O2 Sat by Pulse Oximetry O2 Sat by Pulse Oximetry [ Anterior Bilateral Throughout] 04/08/17 04/08/17 04/08/17 14:20 14:35 14:41 Temperature 98.9 F Pulse Rate 86 94 H Pulse Rate [ Anterior Bilateral Throughout] Pulse Rate [ From Monitor] Respiratory Rate Respiratory Rate [Anterior Bilateral Throughout] Blood Pressure 108/48 111/51 Blood Pressure [Right Arm] O2 Sat by Pulse Oximetry O2 Sat by Pulse 100 Oximetry [ Anterior Bilateral Throughout] 04/08/17 18:20 Temperature Pulse Rate 87 Pulse Rate [ Anterior Bilateral Throughout] Pulse Rate [ From Monitor] Respiratory Rate Respiratory Rate [Anterior Bilateral Throughout] Blood Pressure 109/52 Blood Pressure [Right Arm] O2 Sat by Pulse Oximetry O2 Sat by Pulse Oximetry [ Anterior Bilateral Throughout] Constitutional: no acute distress, other (somnolent) Eyes: non-icteric ENT: oropharynx moist Neck: supple, no lymphadenopathy, no JVD Effort: mildly labored Ascultation: Bilateral: diminished breath sounds, rales (scant in bases) Cardiovascular: regular rate and rhythm Gastrointestinal: normoactive bowel sounds, soft, non-tender, non-distended Integumentary: normal, other (Femoral CVC) Extremities: no cyanosis, no edema, pulses normal, no ischemia or petechiae Neurologic: normal mental status, non-focal exam (Moves all extremities, tracks my voice, attempts to vocalize in response to questions), pupils equal and round , motor strength normal and, other (very weak) Psychiatric: mood appropriate, affect normal, depressed CBC and BMP: 04/08/17 04:48 04/08/17 04:48 ABG, PT/INR, D-dimer: ABG POC ABG pH 7.466 (7.35-7.45) H 03/30/17 13:21 POC ABG pCO2 37.9 (35-45) 03/30/17 13:21 POC ABG pO2 100 (80-105) 03/30/17 13:21 POC ABG HCO3 27.4 03/30/17 13:21 POC ABG Total CO2 28 03/30/17 13:21 POC ABG O2 Sat 98 03/30/17 13:21 PT/INR, D-dimer PT 13.4 Sec. (12.2-14.9) 03/16/17 11:07 INR 1.03 (0.87-1.13) 03/16/17 11:07 Abnormal lab findings: Abnormal Labs 03/16/17 03/16/17 03/17/17 16:36 18:00 03:42 WBC 20.6 H RBC Hgb Hct RDW 17.3 H Plt Count Lymph % (Auto) Tucker % (Auto) Lymph # Tucker # Seg Neutrophils % Seg Neuts % (Manual) 84.0 H Lymphocytes % (Manual) 3.0 L Monocytes % (Manual) 11.0 H Seg Neutrophils # Seg Neutrophils # Man 17.3 H Lymphocytes # (Manual) 0.6 L Monocytes # (Manual) 2.3 H Heparin Anti-Xa Level POC ABG pH 7.336 L POC ABG pCO2 47.9 H POC ABG pO2 189 H Sodium Potassium Chloride Carbon Dioxide BUN Creatinine Glucose POC Glucose Calcium ALT Alkaline Phosphatase Total Creatine Kinase 282 H CK-MB (CK-2) 24.2 H CK-MB (CK-2) Rel Index 8.5 H Troponin T 0.656 H* D C-Reactive Protein Albumin 03/17/17 03/17/17 03/17/17 03:42 04:21 17:15 WBC RBC Hgb Hct RDW Plt Count Lymph % (Auto) Tucker % (Auto) Lymph # Tucker # Seg Neutrophils % Seg Neuts % (Manual) Lymphocytes % (Manual) Monocytes % (Manual) Seg Neutrophils # Seg Neutrophils # Man Lymphocytes # (Manual) Monocytes # (Manual) Heparin Anti-Xa Level 0.10 L POC ABG pH POC ABG pCO2 POC ABG pO2 Sodium 131 L Potassium 5.3 H D Chloride 89.5 L Carbon Dioxide 21 L BUN 39 H Creatinine 7.0 H Glucose 151 H POC Glucose Calcium ALT Alkaline Phosphatase Total Creatine Kinase CK-MB (CK-2) CK-MB (CK-2) Rel Index Troponin T C-Reactive Protein 33.90 H Albumin 03/17/17 03/18/17 03/18/17 21:12 03:33 03:33 WBC 17.6 H RBC 3.59 L Hgb Hct RDW 16.9 H Plt Count Lymph % (Auto) 4.2 L Tucker % (Auto) 11.8 H Lymph # 0.7 L Tucker # 2.1 H Seg Neutrophils % 83.3 H Seg Neuts % (Manual) Lymphocytes % (Manual) Monocytes % (Manual) Seg Neutrophils # 14.7 H Seg Neutrophils # Man Lymphocytes # (Manual) Monocytes # (Manual) Heparin Anti-Xa Level < 0.10 L POC ABG pH POC ABG pCO2 POC ABG pO2 Sodium 127 L Potassium 6.1 H* Chloride 87.2 L Carbon Dioxide BUN 55 H Creatinine 8.7 H Glucose 140 H POC Glucose Calcium ALT Alkaline Phosphatase Total Creatine Kinase CK-MB (CK-2) CK-MB (CK-2) Rel Index Troponin T C-Reactive Protein Albumin 03/18/17 03/18/17 03/19/17 04:34 22:15 00:04 WBC RBC Hgb Hct RDW Plt Count Lymph % (Auto) Tucker % (Auto) Lymph # Tucker # Seg Neutrophils % Seg Neuts % (Manual) Lymphocytes % (Manual) Monocytes % (Manual) Seg Neutrophils # Seg Neutrophils # Man Lymphocytes # (Manual) Monocytes # (Manual) Heparin Anti-Xa Level POC ABG pH 7.289 L POC ABG pCO2 48.7 H POC ABG pO2 Sodium Potassium 5.6 H Chloride Carbon Dioxide BUN Creatinine Glucose POC Glucose 108 H Calcium ALT Alkaline Phosphatase Total Creatine Kinase CK-MB (CK-2) CK-MB (CK-2) Rel Index Troponin T C-Reactive Protein Albumin 03/19/17 03/19/17 03/19/17 05:22 08:00 08:00 WBC 16.3 H RBC 3.15 L Hgb 8.8 L Hct 27.3 L RDW 17.4 H Plt Count Lymph % (Auto) 3.4 L Tucker % (Auto) 10.1 H Lymph # 0.5 L Tucker # 1.7 H Seg Neutrophils % 85.4 H Seg Neuts % (Manual) Lymphocytes % (Manual) Monocytes % (Manual) Seg Neutrophils # 13.9 H Seg Neutrophils # Man Lymphocytes # (Manual) Monocytes # (Manual) Heparin Anti-Xa Level POC ABG pH POC ABG pCO2 POC ABG pO2 Sodium 131 L Potassium Chloride 89.3 L Carbon Dioxide BUN 56 H Creatinine 7.8 H Glucose 122 H POC Glucose 146 H Calcium ALT 59 H Alkaline Phosphatase 208 H Total Creatine Kinase CK-MB (CK-2) CK-MB (CK-2) Rel Index Troponin T C-Reactive Protein Albumin 2.6 L 03/19/17 03/19/17 03/19/17 08:06 11:50 17:36 WBC RBC Hgb Hct RDW Plt Count Lymph % (Auto) Tucker % (Auto) Lymph # Tucker # Seg Neutrophils % Seg Neuts % (Manual) Lymphocytes % (Manual) Monocytes % (Manual) Seg Neutrophils # Seg Neutrophils # Man Lymphocytes # (Manual) Monocytes # (Manual) Heparin Anti-Xa Level POC ABG pH 7.338 L POC ABG pCO2 49.2 H POC ABG pO2 110 H Sodium Potassium Chloride Carbon Dioxide BUN Creatinine Glucose POC Glucose 172 H 152 H Calcium ALT Alkaline Phosphatase Total Creatine Kinase CK-MB (CK-2) CK-MB (CK-2) Rel Index Troponin T C-Reactive Protein Albumin 03/20/17 03/20/17 03/20/17 00:14 04:15 05:06 WBC RBC Hgb Hct RDW Plt Count Lymph % (Auto) Tucker % (Auto) Lymph # Tucker # Seg Neutrophils % Seg Neuts % (Manual) Lymphocytes % (Manual) Monocytes % (Manual) Seg Neutrophils # Seg Neutrophils # Man Lymphocytes # (Manual) Monocytes # (Manual) Heparin Anti-Xa Level POC ABG pH 7.288 L POC ABG pCO2 51.4 H POC ABG pO2 Sodium Potassium Chloride Carbon Dioxide BUN Creatinine Glucose POC Glucose 132 H 166 H Calcium ALT Alkaline Phosphatase Total Creatine Kinase CK-MB (CK-2) CK-MB (CK-2) Rel Index Troponin T C-Reactive Protein Albumin 03/20/17 03/20/17 03/20/17 12:07 15:45 17:41 WBC RBC Hgb Hct RDW Plt Count Lymph % (Auto) Tucker % (Auto) Lymph # Tucker # Seg Neutrophils % Seg Neuts % (Manual) Lymphocytes % (Manual) Monocytes % (Manual) Seg Neutrophils # Seg Neutrophils # Man Lymphocytes # (Manual) Monocytes # (Manual) Heparin Anti-Xa Level POC ABG pH POC ABG pCO2 POC ABG pO2 Sodium Potassium Chloride Carbon Dioxide BUN Creatinine Glucose POC Glucose 193 H 172 H 156 H Calcium ALT Alkaline Phosphatase Total Creatine Kinase CK-MB (CK-2) CK-MB (CK-2) Rel Index Troponin T C-Reactive Protein Albumin 03/20/17 03/21/17 03/21/17 23:13 04:42 05:41 WBC RBC Hgb Hct RDW Plt Count Lymph % (Auto) Tucker % (Auto) Lymph # Tucker # Seg Neutrophils % Seg Neuts % (Manual) Lymphocytes % (Manual) Monocytes % (Manual) Seg Neutrophils # Seg Neutrophils # Man Lymphocytes # (Manual) Monocytes # (Manual) Heparin Anti-Xa Level POC ABG pH 7.321 L POC ABG pCO2 56.8 H POC ABG pO2 73 L Sodium Potassium Chloride Carbon Dioxide BUN Creatinine Glucose POC Glucose 141 H 159 H Calcium ALT Alkaline Phosphatase Total Creatine Kinase CK-MB (CK-2) CK-MB (CK-2) Rel Index Troponin T C-Reactive Protein Albumin 03/21/17 03/21/17 03/21/17 07:45 07:45 12:16 WBC 15.1 H RBC 3.32 L Hgb 9.2 L Hct 28.9 L RDW 17.4 H Plt Count Lymph % (Auto) 4.7 L Tucker % (Auto) 16.0 H Lymph # 0.7 L Tucker # 2.4 H Seg Neutrophils % 78.6 H Seg Neuts % (Manual) Lymphocytes % (Manual) Monocytes % (Manual) Seg Neutrophils # 11.8 H Seg Neutrophils # Man Lymphocytes # (Manual) Monocytes # (Manual) Heparin Anti-Xa Level POC ABG pH POC ABG pCO2 POC ABG pO2 Sodium Potassium Chloride 95.4 L Carbon Dioxide BUN 55 H Creatinine 6.9 H Glucose 188 H POC Glucose 226 H Calcium ALT Alkaline Phosphatase 244 H Total Creatine Kinase CK-MB (CK-2) CK-MB (CK-2) Rel Index Troponin T C-Reactive Protein Albumin 2.8 L 03/21/17 03/21/17 03/22/17 17:17 23:28 04:49 WBC RBC Hgb Hct RDW Plt Count Lymph % (Auto) Tucker % (Auto) Lymph # Tucker # Seg Neutrophils % Seg Neuts % (Manual) Lymphocytes % (Manual) Monocytes % (Manual) Seg Neutrophils # Seg Neutrophils # Man Lymphocytes # (Manual) Monocytes # (Manual) Heparin Anti-Xa Level POC ABG pH 7.323 L POC ABG pCO2 49.5 H POC ABG pO2 77 L Sodium Potassium Chloride Carbon Dioxide BUN Creatinine Glucose POC Glucose 192 H 199 H Calcium ALT Alkaline Phosphatase Total Creatine Kinase CK-MB (CK-2) CK-MB (CK-2) Rel Index Troponin T C-Reactive Protein Albumin 03/22/17 03/22/17 03/22/17 06:13 07:40 07:40 WBC 16.4 H RBC 3.29 L Hgb 9.1 L Hct 28.4 L RDW 17.3 H Plt Count Lymph % (Auto) Tucker % (Auto) Lymph # Tucker # Seg Neutrophils % Seg Neuts % (Manual) 73.0 H Lymphocytes % (Manual) 8.0 L Monocytes % (Manual) 14.0 H Seg Neutrophils # Seg Neutrophils # Man 12.0 H Lymphocytes # (Manual) Monocytes # (Manual) 2.3 H Heparin Anti-Xa Level POC ABG pH POC ABG pCO2 POC ABG pO2 Sodium Potassium Chloride 94.8 L Carbon Dioxide 21 L BUN 84 H Creatinine 9.4 H Glucose 188 H POC Glucose 190 H Calcium ALT Alkaline Phosphatase Total Creatine Kinase CK-MB (CK-2) CK-MB (CK-2) Rel Index Troponin T C-Reactive Protein Albumin 03/22/17 03/22/17 03/22/17 11:43 17:38 23:56 WBC RBC Hgb Hct RDW Plt Count Lymph % (Auto) Tucker % (Auto) Lymph # Tucker # Seg Neutrophils % Seg Neuts % (Manual) Lymphocytes % (Manual) Monocytes % (Manual) Seg Neutrophils # Seg Neutrophils # Man Lymphocytes # (Manual) Monocytes # (Manual) Heparin Anti-Xa Level POC ABG pH POC ABG pCO2 POC ABG pO2 Sodium Potassium Chloride Carbon Dioxide BUN Creatinine Glucose POC Glucose 149 H 168 H 229 H Calcium ALT Alkaline Phosphatase Total Creatine Kinase CK-MB (CK-2) CK-MB (CK-2) Rel Index Troponin T C-Reactive Protein Albumin 03/23/17 03/23/17 03/23/17 05:00 05:00 05:21 WBC 14.0 H RBC 3.09 L Hgb 8.5 L Hct 27.0 L RDW 17.8 H Plt Count Lymph % (Auto) Tucker % (Auto) Lymph # Tucker # Seg Neutrophils % Seg Neuts % (Manual) Lymphocytes % (Manual) 11.0 L Monocytes % (Manual) 13.0 H Seg Neutrophils # Seg Neutrophils # Man 9.2 H Lymphocytes # (Manual) Monocytes # (Manual) 1.8 H Heparin Anti-Xa Level POC ABG pH POC ABG pCO2 POC ABG pO2 Sodium Potassium Chloride 94.5 L Carbon Dioxide BUN 76 H Creatinine 7.5 H Glucose 192 H POC Glucose 195 H Calcium ALT Alkaline Phosphatase Total Creatine Kinase CK-MB (CK-2) CK-MB (CK-2) Rel Index Troponin T C-Reactive Protein Albumin 03/23/17 03/23/17 03/23/17 12:15 17:47 23:27 WBC RBC Hgb Hct RDW Plt Count Lymph % (Auto) Tucker % (Auto) Lymph # Tucker # Seg Neutrophils % Seg Neuts % (Manual) Lymphocytes % (Manual) Monocytes % (Manual) Seg Neutrophils # Seg Neutrophils # Man Lymphocytes # (Manual) Monocytes # (Manual) Heparin Anti-Xa Level POC ABG pH POC ABG pCO2 POC ABG pO2 Sodium Potassium Chloride Carbon Dioxide BUN Creatinine Glucose POC Glucose 162 H 137 H 221 H Calcium ALT Alkaline Phosphatase Total Creatine Kinase CK-MB (CK-2) CK-MB (CK-2) Rel Index Troponin T C-Reactive Protein Albumin 03/24/17 03/24/17 03/24/17 05:42 08:49 08:49 WBC RBC 2.99 L Hgb 8.5 L Hct 25.9 L RDW 18.1 H Plt Count Lymph % (Auto) Tucker % (Auto) Lymph # Tucker # Seg Neutrophils % Seg Neuts % (Manual) 83.0 H Lymphocytes % (Manual) 6.0 L Monocytes % (Manual) Seg Neutrophils # Seg Neutrophils # Man 8.5 H Lymphocytes # (Manual) 0.6 L Monocytes # (Manual) Heparin Anti-Xa Level POC ABG pH POC ABG pCO2 POC ABG pO2 Sodium Potassium Chloride 95.4 L Carbon Dioxide BUN 108 H Creatinine 9.4 H Glucose 203 H POC Glucose 216 H Calcium ALT Alkaline Phosphatase Total Creatine Kinase CK-MB (CK-2) CK-MB (CK-2) Rel Index Troponin T C-Reactive Protein Albumin 03/24/17 03/24/17 03/24/17 11:21 17:32 23:37 WBC RBC Hgb Hct RDW Plt Count Lymph % (Auto) Tucker % (Auto) Lymph # Tucker # Seg Neutrophils % Seg Neuts % (Manual) Lymphocytes % (Manual) Monocytes % (Manual) Seg Neutrophils # Seg Neutrophils # Man Lymphocytes # (Manual) Monocytes # (Manual) Heparin Anti-Xa Level POC ABG pH POC ABG pCO2 POC ABG pO2 Sodium Potassium Chloride Carbon Dioxide BUN Creatinine Glucose POC Glucose 185 H 138 H 218 H Calcium ALT Alkaline Phosphatase Total Creatine Kinase CK-MB (CK-2) CK-MB (CK-2) Rel Index Troponin T C-Reactive Protein Albumin 03/25/17 03/25/17 03/25/17 04:38 04:38 05:24 WBC RBC 3.27 L Hgb 9.3 L Hct 29.8 L RDW 18.4 H Plt Count Lymph % (Auto) Tucker % (Auto) Lymph # Tucker # Seg Neutrophils % Seg Neuts % (Manual) 78.0 H Lymphocytes % (Manual) 10.0 L Monocytes % (Manual) 9.0 H Seg Neutrophils # Seg Neutrophils # Man Lymphocytes # (Manual) 0.8 L Monocytes # (Manual) Heparin Anti-Xa Level POC ABG pH POC ABG pCO2 POC ABG pO2 Sodium 136 L Potassium Chloride 92.5 L Carbon Dioxide 17 L BUN 124 H Creatinine 9.7 H Glucose 217 H POC Glucose 211 H Calcium ALT Alkaline Phosphatase Total Creatine Kinase CK-MB (CK-2) CK-MB (CK-2) Rel Index Troponin T C-Reactive Protein Albumin 03/25/17 03/25/17 03/25/17 11:53 17:15 20:12 WBC RBC Hgb Hct RDW Plt Count Lymph % (Auto) Tucker % (Auto) Lymph # Tucker # Seg Neutrophils % Seg Neuts % (Manual) Lymphocytes % (Manual) Monocytes % (Manual) Seg Neutrophils # Seg Neutrophils # Man Lymphocytes # (Manual) Monocytes # (Manual) Heparin Anti-Xa Level POC ABG pH 7.469 H POC ABG pCO2 POC ABG pO2 69 L Sodium Potassium Chloride Carbon Dioxide BUN Creatinine Glucose POC Glucose 165 H 173 H Calcium ALT Alkaline Phosphatase Total Creatine Kinase CK-MB (CK-2) CK-MB (CK-2) Rel Index Troponin T C-Reactive Protein Albumin 03/25/17 03/26/17 03/26/17 23:32 05:59 06:03 WBC RBC Hgb Hct RDW Plt Count Lymph % (Auto) Tucker % (Auto) Lymph # Tucker # Seg Neutrophils % Seg Neuts % (Manual) Lymphocytes % (Manual) Monocytes % (Manual) Seg Neutrophils # Seg Neutrophils # Man Lymphocytes # (Manual) Monocytes # (Manual) Heparin Anti-Xa Level POC ABG pH POC ABG pCO2 POC ABG pO2 Sodium 136 L Potassium Chloride 91.6 L Carbon Dioxide 20 L BUN 97 H Creatinine 8.0 H Glucose 239 H POC Glucose 231 H 214 H Calcium ALT Alkaline Phosphatase Total Creatine Kinase CK-MB (CK-2) CK-MB (CK-2) Rel Index Troponin T C-Reactive Protein Albumin 03/26/17 03/26/17 03/26/17 12:55 18:14 23:27 WBC RBC Hgb Hct RDW Plt Count Lymph % (Auto) Tucker % (Auto) Lymph # Tucker # Seg Neutrophils % Seg Neuts % (Manual) Lymphocytes % (Manual) Monocytes % (Manual) Seg Neutrophils # Seg Neutrophils # Man Lymphocytes # (Manual) Monocytes # (Manual) Heparin Anti-Xa Level POC ABG pH POC ABG pCO2 POC ABG pO2 Sodium Potassium Chloride Carbon Dioxide BUN Creatinine Glucose POC Glucose 220 H 236 H 221 H Calcium ALT Alkaline Phosphatase Total Creatine Kinase CK-MB (CK-2) CK-MB (CK-2) Rel Index Troponin T C-Reactive Protein Albumin 03/27/17 03/27/17 03/27/17 00:58 04:00 04:00 WBC 12.9 H RBC 3.33 L Hgb 9.2 L Hct 29.0 L RDW 18.0 H Plt Count Lymph % (Auto) Tucker % (Auto) Lymph # Tucker # Seg Neutrophils % Seg Neuts % (Manual) 78.0 H Lymphocytes % (Manual) 13.0 L Monocytes % (Manual) Seg Neutrophils # Seg Neutrophils # Man 10.1 H Lymphocytes # (Manual) Monocytes # (Manual) Heparin Anti-Xa Level POC ABG pH POC ABG pCO2 POC ABG pO2 Sodium Potassium Chloride 91.8 L Carbon Dioxide BUN 108 H Creatinine 9.0 H Glucose 237 H POC Glucose Calcium ALT Alkaline Phosphatase Total Creatine Kinase CK-MB (CK-2) CK-MB (CK-2) Rel Index Troponin T C-Reactive Protein 7.90 H Albumin 03/27/17 03/27/17 03/27/17 05:24 11:17 17:40 WBC RBC Hgb Hct RDW Plt Count Lymph % (Auto) Tucker % (Auto) Lymph # Tucker # Seg Neutrophils % Seg Neuts % (Manual) Lymphocytes % (Manual) Monocytes % (Manual) Seg Neutrophils # Seg Neutrophils # Man Lymphocytes # (Manual) Monocytes # (Manual) Heparin Anti-Xa Level POC ABG pH POC ABG pCO2 POC ABG pO2 Sodium Potassium Chloride Carbon Dioxide BUN Creatinine Glucose POC Glucose 231 H 172 H 223 H Calcium ALT Alkaline Phosphatase Total Creatine Kinase CK-MB (CK-2) CK-MB (CK-2) Rel Index Troponin T C-Reactive Protein Albumin 03/27/17 03/28/17 03/28/17 23:49 05:40 11:51 WBC RBC Hgb Hct RDW Plt Count Lymph % (Auto) Tucker % (Auto) Lymph # Tucker # Seg Neutrophils % Seg Neuts % (Manual) Lymphocytes % (Manual) Monocytes % (Manual) Seg Neutrophils # Seg Neutrophils # Man Lymphocytes # (Manual) Monocytes # (Manual) Heparin Anti-Xa Level POC ABG pH POC ABG pCO2 POC ABG pO2 Sodium Potassium Chloride Carbon Dioxide BUN Creatinine Glucose POC Glucose 184 H 212 H 187 H Calcium ALT Alkaline Phosphatase Total Creatine Kinase CK-MB (CK-2) CK-MB (CK-2) Rel Index Troponin T C-Reactive Protein Albumin 03/28/17 03/29/17 03/29/17 17:11 00:25 05:28 WBC RBC Hgb Hct RDW Plt Count Lymph % (Auto) Tucker % (Auto) Lymph # Tucker # Seg Neutrophils % Seg Neuts % (Manual) Lymphocytes % (Manual) Monocytes % (Manual) Seg Neutrophils # Seg Neutrophils # Man Lymphocytes # (Manual) Monocytes # (Manual) Heparin Anti-Xa Level POC ABG pH POC ABG pCO2 POC ABG pO2 Sodium Potassium Chloride Carbon Dioxide BUN Creatinine Glucose POC Glucose 177 H 147 H 143 H Calcium ALT Alkaline Phosphatase Total Creatine Kinase CK-MB (CK-2) CK-MB (CK-2) Rel Index Troponin T C-Reactive Protein Albumin 03/29/17 03/30/17 03/30/17 17:46 06:06 10:42 WBC RBC Hgb Hct RDW Plt Count Lymph % (Auto) Tucker % (Auto) Lymph # Tucker # Seg Neutrophils % Seg Neuts % (Manual) Lymphocytes % (Manual) Monocytes % (Manual) Seg Neutrophils # Seg Neutrophils # Man Lymphocytes # (Manual) Monocytes # (Manual) Heparin Anti-Xa Level POC ABG pH POC ABG pCO2 POC ABG pO2 Sodium Potassium Chloride Carbon Dioxide BUN Creatinine Glucose POC Glucose 184 H 294 H 299 H Calcium ALT Alkaline Phosphatase Total Creatine Kinase CK-MB (CK-2) CK-MB (CK-2) Rel Index Troponin T C-Reactive Protein Albumin 03/30/17 03/30/17 03/30/17 13:21 16:38 19:48 WBC RBC Hgb Hct RDW Plt Count Lymph % (Auto) Tucker % (Auto) Lymph # Tucker # Seg Neutrophils % Seg Neuts % (Manual) Lymphocytes % (Manual) Monocytes % (Manual) Seg Neutrophils # Seg Neutrophils # Man Lymphocytes # (Manual) Monocytes # (Manual) Heparin Anti-Xa Level POC ABG pH 7.466 H POC ABG pCO2 POC ABG pO2 Sodium Potassium Chloride Carbon Dioxide BUN Creatinine Glucose POC Glucose 230 H 277 H Calcium ALT Alkaline Phosphatase Total Creatine Kinase CK-MB (CK-2) CK-MB (CK-2) Rel Index Troponin T C-Reactive Protein Albumin 03/30/17 03/31/17 03/31/17 23:28 05:49 17:13 WBC RBC Hgb Hct RDW Plt Count Lymph % (Auto) Tucker % (Auto) Lymph # Tucker # Seg Neutrophils % Seg Neuts % (Manual) Lymphocytes % (Manual) Monocytes % (Manual) Seg Neutrophils # Seg Neutrophils # Man Lymphocytes # (Manual) Monocytes # (Manual) Heparin Anti-Xa Level POC ABG pH POC ABG pCO2 POC ABG pO2 Sodium Potassium Chloride Carbon Dioxide BUN Creatinine Glucose POC Glucose 203 H 261 H 227 H Calcium ALT Alkaline Phosphatase Total Creatine Kinase CK-MB (CK-2) CK-MB (CK-2) Rel Index Troponin T C-Reactive Protein Albumin 03/31/17 04/01/17 04/01/17 19:32 00:39 05:51 WBC RBC Hgb Hct RDW Plt Count Lymph % (Auto) Tucker % (Auto) Lymph # Tucker # Seg Neutrophils % Seg Neuts % (Manual) Lymphocytes % (Manual) Monocytes % (Manual) Seg Neutrophils # Seg Neutrophils # Man Lymphocytes # (Manual) Monocytes # (Manual) Heparin Anti-Xa Level POC ABG pH POC ABG pCO2 POC ABG pO2 Sodium Potassium Chloride Carbon Dioxide BUN Creatinine Glucose POC Glucose 238 H 147 H 185 H Calcium ALT Alkaline Phosphatase Total Creatine Kinase CK-MB (CK-2) CK-MB (CK-2) Rel Index Troponin T C-Reactive Protein Albumin 04/01/17 04/01/17 04/01/17 12:00 12:17 23:23 WBC RBC Hgb Hct RDW Plt Count Lymph % (Auto) Tucker % (Auto) Lymph # Tucker # Seg Neutrophils % Seg Neuts % (Manual) Lymphocytes % (Manual) Monocytes % (Manual) Seg Neutrophils # Seg Neutrophils # Man Lymphocytes # (Manual) Monocytes # (Manual) Heparin Anti-Xa Level POC ABG pH POC ABG pCO2 POC ABG pO2 Sodium 136 L Potassium 5.4 H Chloride 88.3 L Carbon Dioxide 20 L BUN 110 H Creatinine 10.8 H Glucose 209 H POC Glucose 261 H 302 H Calcium ALT Alkaline Phosphatase Total Creatine Kinase CK-MB (CK-2) CK-MB (CK-2) Rel Index Troponin T C-Reactive Protein Albumin 04/02/17 04/02/17 04/02/17 05:16 06:40 06:40 WBC RBC Hgb Hct RDW 19.6 H Plt Count Lymph % (Auto) 8.5 L Tucker % (Auto) 12.8 H Lymph # 0.8 L Tucker # 1.2 H Seg Neutrophils % 76.4 H Seg Neuts % (Manual) Lymphocytes % (Manual) Monocytes % (Manual) Seg Neutrophils # Seg Neutrophils # Man Lymphocytes # (Manual) Monocytes # (Manual) Heparin Anti-Xa Level POC ABG pH POC ABG pCO2 POC ABG pO2 Sodium Potassium 5.3 H Chloride 91.0 L Carbon Dioxide BUN 50 H Creatinine 6.0 H Glucose 183 H POC Glucose 213 H Calcium 10.8 H ALT Alkaline Phosphatase Total Creatine Kinase CK-MB (CK-2) CK-MB (CK-2) Rel Index Troponin T C-Reactive Protein Albumin 04/02/17 04/02/17 04/03/17 11:53 19:03 00:01 WBC RBC Hgb Hct RDW Plt Count Lymph % (Auto) Tucker % (Auto) Lymph # Tucker # Seg Neutrophils % Seg Neuts % (Manual) Lymphocytes % (Manual) Monocytes % (Manual) Seg Neutrophils # Seg Neutrophils # Man Lymphocytes # (Manual) Monocytes # (Manual) Heparin Anti-Xa Level POC ABG pH POC ABG pCO2 POC ABG pO2 Sodium Potassium Chloride Carbon Dioxide BUN Creatinine Glucose POC Glucose 203 H 260 H 147 H Calcium ALT Alkaline Phosphatase Total Creatine Kinase CK-MB (CK-2) CK-MB (CK-2) Rel Index Troponin T C-Reactive Protein Albumin 04/03/17 04/03/17 04/03/17 06:09 07:03 07:03 WBC RBC Hgb Hct RDW 20.3 H Plt Count Lymph % (Auto) 13.2 L Tucker % (Auto) 14.5 H Lymph # 1.0 L Tucker # 1.1 H Seg Neutrophils % Seg Neuts % (Manual) Lymphocytes % (Manual) Monocytes % (Manual) Seg Neutrophils # Seg Neutrophils # Man Lymphocytes # (Manual) Monocytes # (Manual) Heparin Anti-Xa Level POC ABG pH POC ABG pCO2 POC ABG pO2 Sodium 133 L Potassium 6.2 H* Chloride 88.3 L Carbon Dioxide BUN 68 H Creatinine 7.5 H Glucose 138 H POC Glucose 154 H Calcium ALT Alkaline Phosphatase Total Creatine Kinase CK-MB (CK-2) CK-MB (CK-2) Rel Index Troponin T C-Reactive Protein Albumin 04/03/17 04/04/17 04/04/17 18:19 00:26 05:27 WBC RBC 3.44 L Hgb 9.9 L Hct RDW 20.0 H Plt Count Lymph % (Auto) 12.3 L Tucker % (Auto) 14.7 H Lymph # 1.1 L Tucker # 1.3 H Seg Neutrophils % 70.3 H Seg Neuts % (Manual) Lymphocytes % (Manual) Monocytes % (Manual) Seg Neutrophils # Seg Neutrophils # Man Lymphocytes # (Manual) Monocytes # (Manual) Heparin Anti-Xa Level POC ABG pH POC ABG pCO2 POC ABG pO2 Sodium Potassium Chloride Carbon Dioxide BUN Creatinine Glucose POC Glucose 331 H 230 H Calcium ALT Alkaline Phosphatase Total Creatine Kinase CK-MB (CK-2) CK-MB (CK-2) Rel Index Troponin T C-Reactive Protein Albumin 04/04/17 04/04/17 04/04/17 05:27 07:09 12:14 WBC RBC Hgb Hct RDW Plt Count Lymph % (Auto) Tucker % (Auto) Lymph # Tucker # Seg Neutrophils % Seg Neuts % (Manual) Lymphocytes % (Manual) Monocytes % (Manual) Seg Neutrophils # Seg Neutrophils # Man Lymphocytes # (Manual) Monocytes # (Manual) Heparin Anti-Xa Level POC ABG pH POC ABG pCO2 POC ABG pO2 Sodium 134 L Potassium Chloride Carbon Dioxide BUN 42 H Creatinine 6.0 H Glucose 175 H POC Glucose 171 H 217 H Calcium ALT Alkaline Phosphatase Total Creatine Kinase CK-MB (CK-2) CK-MB (CK-2) Rel Index Troponin T C-Reactive Protein Albumin 04/04/17 04/04/17 04/05/17 17:23 23:29 05:48 WBC RBC Hgb Hct RDW Plt Count Lymph % (Auto) Tucker % (Auto) Lymph # Tucker # Seg Neutrophils % Seg Neuts % (Manual) Lymphocytes % (Manual) Monocytes % (Manual) Seg Neutrophils # Seg Neutrophils # Man Lymphocytes # (Manual) Monocytes # (Manual) Heparin Anti-Xa Level POC ABG pH POC ABG pCO2 POC ABG pO2 Sodium Potassium Chloride Carbon Dioxide BUN Creatinine Glucose POC Glucose 168 H 188 H 114 H Calcium ALT Alkaline Phosphatase Total Creatine Kinase CK-MB (CK-2) CK-MB (CK-2) Rel Index Troponin T C-Reactive Protein Albumin 04/05/17 04/05/17 04/05/17 07:56 11:59 12:23 WBC RBC 3.18 L Hgb 9.2 L Hct 28.8 L RDW 20.2 H Plt Count 105 L Lymph % (Auto) Tucker % (Auto) Lymph # Tucker # Seg Neutrophils % Seg Neuts % (Manual) Lymphocytes % (Manual) Monocytes % (Manual) Seg Neutrophils # Seg Neutrophils # Man Lymphocytes # (Manual) Monocytes # (Manual) Heparin Anti-Xa Level POC ABG pH POC ABG pCO2 POC ABG pO2 Sodium 126 L D Potassium 6.7 H* D Chloride 86.9 L Carbon Dioxide 20 L BUN 60 H Creatinine 7.6 H Glucose 118 H POC Glucose 198 H Calcium ALT Alkaline Phosphatase Total Creatine Kinase CK-MB (CK-2) CK-MB (CK-2) Rel Index Troponin T C-Reactive Protein Albumin 04/05/17 04/05/17 04/06/17 12:23 18:42 00:37 WBC RBC Hgb Hct RDW Plt Count Lymph % (Auto) Tucker % (Auto) Lymph # Tucker # Seg Neutrophils % Seg Neuts % (Manual) Lymphocytes % (Manual) Monocytes % (Manual) Seg Neutrophils # Seg Neutrophils # Man Lymphocytes # (Manual) Monocytes # (Manual) Heparin Anti-Xa Level POC ABG pH POC ABG pCO2 POC ABG pO2 Sodium Potassium 3.2 L D Chloride Carbon Dioxide BUN Creatinine Glucose POC Glucose 217 H 177 H Calcium ALT Alkaline Phosphatase Total Creatine Kinase CK-MB (CK-2) CK-MB (CK-2) Rel Index Troponin T C-Reactive Protein Albumin 04/06/17 04/06/17 04/06/17 05:40 07:12 07:12 WBC RBC 3.34 L Hgb 9.5 L Hct RDW 20.5 H Plt Count 107 L Lymph % (Auto) 11.3 L Tucker % (Auto) 14.0 H Lymph # 0.8 L Tucker # 1.0 H Seg Neutrophils % 72.6 H Seg Neuts % (Manual) Lymphocytes % (Manual) Monocytes % (Manual) Seg Neutrophils # Seg Neutrophils # Man Lymphocytes # (Manual) Monocytes # (Manual) Heparin Anti-Xa Level POC ABG pH POC ABG pCO2 POC ABG pO2 Sodium 133 L D Potassium Chloride 91.7 L Carbon Dioxide BUN 29 H Creatinine 4.6 H Glucose 139 H POC Glucose 171 H Calcium ALT Alkaline Phosphatase Total Creatine Kinase CK-MB (CK-2) CK-MB (CK-2) Rel Index Troponin T C-Reactive Protein Albumin 04/06/17 04/06/17 04/07/17 12:03 16:02 06:53 WBC RBC 3.20 L Hgb 9.3 L Hct 28.9 L RDW 20.5 H Plt Count 103 L Lymph % (Auto) Tucker % (Auto) 15.6 H Lymph # 0.8 L Tucker # 0.9 H Seg Neutrophils % Seg Neuts % (Manual) Lymphocytes % (Manual) Monocytes % (Manual) Seg Neutrophils # Seg Neutrophils # Man Lymphocytes # (Manual) Monocytes # (Manual) Heparin Anti-Xa Level POC ABG pH POC ABG pCO2 POC ABG pO2 Sodium Potassium Chloride Carbon Dioxide BUN Creatinine Glucose POC Glucose 211 H 221 H Calcium ALT Alkaline Phosphatase Total Creatine Kinase CK-MB (CK-2) CK-MB (CK-2) Rel Index Troponin T C-Reactive Protein Albumin 04/07/17 04/07/17 04/07/17 06:53 12:02 17:56 WBC RBC Hgb Hct RDW Plt Count Lymph % (Auto) Tucker % (Auto) Lymph # Tucker # Seg Neutrophils % Seg Neuts % (Manual) Lymphocytes % (Manual) Monocytes % (Manual) Seg Neutrophils # Seg Neutrophils # Man Lymphocytes # (Manual) Monocytes # (Manual) Heparin Anti-Xa Level POC ABG pH POC ABG pCO2 POC ABG pO2 Sodium 133 L Potassium 5.1 H D Chloride 89.6 L Carbon Dioxide BUN 42 H Creatinine 6.1 H Glucose POC Glucose 143 H 201 H Calcium ALT Alkaline Phosphatase Total Creatine Kinase CK-MB (CK-2) CK-MB (CK-2) Rel Index Troponin T C-Reactive Protein Albumin 04/08/17 04/08/17 04/08/17 00:18 04:48 04:48 WBC RBC 2.97 L Hgb 8.7 L Hct 26.3 L RDW 19.6 H Plt Count 104 L Lymph % (Auto) 13.3 L Tucker % (Auto) 13.5 H Lymph # 0.8 L Tucker # Seg Neutrophils % 70.7 H Seg Neuts % (Manual) Lymphocytes % (Manual) Monocytes % (Manual) Seg Neutrophils # Seg Neutrophils # Man Lymphocytes # (Manual) Monocytes # (Manual) Heparin Anti-Xa Level POC ABG pH POC ABG pCO2 POC ABG pO2 Sodium 127 L Potassium 5.5 H Chloride 85.9 L Carbon Dioxide BUN 59 H Creatinine 7.3 H Glucose POC Glucose 144 H Calcium ALT Alkaline Phosphatase Total Creatine Kinase CK-MB (CK-2) CK-MB (CK-2) Rel Index Troponin T C-Reactive Protein Albumin 04/08/17 04/08/17 04/08/17 05:24 07:39 11:57 WBC RBC Hgb Hct RDW Plt Count Lymph % (Auto) Tucker % (Auto) Lymph # Tucker # Seg Neutrophils % Seg Neuts % (Manual) Lymphocytes % (Manual) Monocytes % (Manual) Seg Neutrophils # Seg Neutrophils # Man Lymphocytes # (Manual) Monocytes # (Manual) Heparin Anti-Xa Level POC ABG pH POC ABG pCO2 POC ABG pO2 Sodium Potassium Chloride Carbon Dioxide BUN Creatinine Glucose POC Glucose 109 H 109 H 228 H Calcium ALT Alkaline Phosphatase Total Creatine Kinase CK-MB (CK-2) CK-MB (CK-2) Rel Index Troponin T C-Reactive Protein Albumin 04/08/17 18:02 WBC RBC Hgb Hct RDW Plt Count Lymph % (Auto) Tucker % (Auto) Lymph # Tucker # Seg Neutrophils % Seg Neuts % (Manual) Lymphocytes % (Manual) Monocytes % (Manual) Seg Neutrophils # Seg Neutrophils # Man Lymphocytes # (Manual) Monocytes # (Manual) Heparin Anti-Xa Level POC ABG pH POC ABG pCO2 POC ABG pO2 Sodium Potassium Chloride Carbon Dioxide BUN Creatinine Glucose POC Glucose 160 H Calcium ALT Alkaline Phosphatase Total Creatine Kinase CK-MB (CK-2) CK-MB (CK-2) Rel Index Troponin T C-Reactive Protein Albumin Allied health notes reviewed: RT
[2017-04-08] MEDS: ZYLOPRIM PO SCH (19:57)
[2017-04-08] MEDS: ULTRAM PO PRN (22:24)
[2017-04-09] MEDS: HEPARIN SUB-Q SCH ×2 (06:34→15:45)
[2017-04-09 08:28] LABS: Hematocrit 28.2 % (30.3-42.9); Hemoglobin 9.1 gm/dl (10.1-14.3)
[2017-04-09] MEDS: DUONEB *Not for PRN Use IH SCH ×2 (08:53→14:11)
[2017-04-09] MEDS: ZYLOPRIM PO SCH (09:18)
[2017-04-09] MEDS: LOPRESSOR PO SCH ×2 (09:19→15:45)
[2017-04-09] MEDS: PEPCID PO SCH (09:19)
--- NOTE | 2017-04-09 09:29 | Progress Note ---
Assessment and Plan - Patient Problems (1) ESRD on dialysis Current Visit: Yes Status: Acute (2) Aortic stenosis Current Visit: Yes Status: Chronic Qualifiers: Cardiac valve disease etiology: C (3) Cardiac arrest due to underlying cardiac condition Current Visit: Yes Status: Resolved (4) Pulmonary HTN Current Visit: Yes Status: Chronic (5) CVA (cerebral vascular accident) Current Visit: No Status: Acute Qualifiers: CVA mechanism: C Precerebral and cerebral artery: P Laterality of affected vessel: L (6) Type 2 diabetes mellitus Current Visit: No Status: Chronic Qualifiers: Diabetes mellitus complication status: D Diabetes mellitus complication detail: D Diabetic retinopathy severity: D Proliferative retinopathy type: P Diabetes mellitus macular edema: D Diabetes mellitus custodial insulin use : D Laterality: L Chronic kidney disease stage: C (7) Hyponatremia Current Visit: Yes Status: Acute (8) Hyperkalemia Current Visit: Yes Status: Acute (9) Anemia in CKD (chronic kidney disease) Current Visit: Yes Status: Chronic Qualifiers: Chronic kidney disease stage: C (10) Physical deconditioning Current Visit: Yes Status: Acute Subjective Date of service: 04/09/17 Principal diagnosis: Acute Hypoxemic Resp Failure; STEMI Objective - Vital Signs Vital signs: Vital Signs - 12hr 04/08/17 04/08/17 04/08/17 21:31 21:40 22:00 Temperature 98.8 F Pulse Rate [ 78 79 Anterior Bilateral Throughout] Pulse Rate [ 90 From Monitor] Respiratory 20 Rate Respiratory 18 16 Rate [Anterior Bilateral Throughout] Respiratory 18 Rate [ Generalized] Blood Pressure 131/60 [Right Arm] O2 Sat by Pulse 98 Oximetry 04/08/17 04/08/17 04/09/17 22:24 22:30 08:52 Temperature Pulse Rate [ 94 H Anterior Bilateral Throughout] Pulse Rate [ From Monitor] Respiratory 18 Rate Respiratory 16 Rate [Anterior Bilateral Throughout] Respiratory Rate [ Generalized] Blood Pressure [Right Arm] O2 Sat by Pulse 94 Oximetry 04/09/17 04/09/17 08:56 08:59 Temperature Pulse Rate [ 94 H Anterior Bilateral Throughout] Pulse Rate [ From Monitor] Respiratory Rate Respiratory 16 Rate [Anterior Bilateral Throughout] Respiratory Rate [ Generalized] Blood Pressure [Right Arm] O2 Sat by Pulse 98 Oximetry - Lab 04/09/17 05:44 04/08/17 04:48 Most recent lab results Calcium 8.5 mg/dL (8.4-10.2) 04/08/17 04:48
--- NOTE | 2017-04-09 09:32 | Discharge Summary ---
Providers - Providers Date of Admission: 03/16/17 13:43 Date of discharge: 04/09/17 Attending physician: PACO SANDOVAL MD 03/16/17 13:58 Consult to Cardiac Rehabilitation [CONS] Routine Reason For Exam: Cardiac Rehab Evaluation 03/16/17 15:20 Consult to Physician [CONS] Stat Consulting Provider: BERNIE PEÑA Reason For Exam: resp failure Place consult to:: Omaira Notified:: yes Was contact made?: Yes If yes, spoke with:: Omaira Time called:: 13:00 03/16/17 16:26 Consult to Dietitian/Nutrition [CONS] Routine Physician Instructions: Reason For Exam: Reason for Consult: Write/Manage Tube Feeding 03/17/17 16:08 Consult to Physician [CONS] Routine Consulting Provider: PRESTON RICHARDSON Reason For Exam: sepsis; fevers Place consult to:: Dr Richardson Notified:: left message Phone number called:: [phone] Was contact made?: No Time called:: 19:54 03/18/17 10:59 Consult to Physician [CONS] Routine Consulting Provider: EFRAIN BAINS Reason For Exam: central line access Place consult to:: FREIDA Wiseman Notified:: yes 03/18/17 11:53 Consult to Physician [CONS] Routine Consulting Provider: SAVANNA ARVIZU Reason For Exam: Post arrest-seizure Place consult to:: Dr. Arvizu Notified:: Yes If yes, spoke with:: Dr. Arvizu Time called:: 15:30 03/22/17 05:08 Consult to Wound/ET Nurse [CONS] Stat Reason For Exam: wound eval 03/24/17 18:52 Physical Therapy Evaluation and Treat [CONS] Routine Comment: Reason For Exam: debility 03/24/17 19:04 Speech Therapy Evaluation and Treat [CONS] Stat Reason For Exam: Post-Extubation Primary care physician: CONVEYOR WEIGHER OPERATOR Hospitalization Reason for admission: vfib arrest Condition: Stable Hospital course: 66-year-old female presents to the emergency department complaining of chest pain after dialysis. While in triage, the patient went unresponsive, and without a pulse, No palpable pulses were identified. Patient was placed on a cardiac care nurse and ventricular fibrillation was noted. Patient was defibrillated a single time with 200 J. She received CPR protocol, was intubated and had ROSC, and she was then taken to the ICU. Post arrest ECG was consistent with anterior STEMI. Code STEMI was activated, she was taken to [facility] and received angiogram ; stent x 2 in LAD noted to be patent, but had distal LAD spasm cardiac arrest; Vfib, STEMI, ACS, Distal LAD spasm, cardiogenic shock status post cath with patent stents she was rx with amio drip, received heparin ggt x 24 hours, received Dopamine drip for Cardiogenic shock and hypotension,now improved; and then changed to Lopressor for rate control Lifevest was obtained prior to discharge with EP outpatient set up for ICD placement Hypertension. patient was started on antihypertensives with good control Hyperlipidemia Continue statin therapy Acute hypoxic respiratory failure, [facility] hours Status post extubation 03/24/17, Pulmonary was very instrumental in helping manage this patients. She was started on Nebs also in addition to antibotics Gastroenteritis Treated with zofran and resolved Dysphagia Resolved Toxic metabolic encephalopathy EEG was reviewed, seizure is unlikely. encephalopathy most likely due to CVA Acute CVA with infarct and left hemiparesis Patient was noted to haveLeft facial droop/LUE weakness, MRI brain shows CVA AND Carotid duplex did not show any stenosis, patient was continued on Plavix and statin which was already started for cardiac protection Sepsis Secondary to acute cystitis She completed empiric abx course End stage renal disease on hemodialysis. Nephrology following. Continue hemodialysis Hyperkalemia-corrected with dialysis Complete immobility due to frailty PT consult, patient was sent to [facility] Critical illness myopathy This resolved Pain medications as needed Severe malnutrition/Dysphagia gis scientist and speech therapy consult appreciated s/p MBS, report reviewed, there was no aspiration, patient has been transitioned to mechanical soft diet and thin liquids. Diabetes mellitus type 2. Accu-Cheks and sliding scale insulin. Morbid obesity- will career technical counselor when clinically improved about lifestyle modification Anemia of CKD. STEMI (ST elevation myocardial infarction) As noted above. Seizure Likely secondary to CVA Aortic stenosis Acute hypoxemic respiratory failure Pulmonary HTN UTI (urinary tract infection) Gout -Patient was treated with steroids. Disposition: [id number]/TX-03 [facility] Time spent for discharge: 35 mins Core Measure Documentation - Palliative Care Palliative Care/ Comfort Measures: Not Applicable - Core Measures Any of the following diagnoses?: none - VTE Discharge Requirements Deep Vein Thrombosis/Pulmonary Embolism Present on Admission: No Exam - Physical Exam Narrative exam: VITAL SIGNS: Reviewed. GENERAL: The patient appeared well nourished and normally developed. Vital signs as documented. HEAD: No signs of head trauma. EYES: Pupils are equal. EARS: Hearing is intact MOUTH: normal CHEST: Chest with diminished breath sounds bilaterally. No wheezes, rales, or rhonchi. CARDIAC: Regular rate and rhythm. S1 and S2, without murmurs, gallops, or rubs. VASCULAR: No Edema. Peripheral pulses normal and equal in all extremities. ABDOMEN: Soft, without detectable tenderness. No sign of distention. No rebound or guarding, and no masses palpated. Bowel Sounds normal. MUSCULOSKELETAL: Good range of motion of all major joints. Extremities without clubbing, cyanosis or edema. NEUROLOGIC EXAM: AAOX 3 motor strenght 5/5 with no sensory deficit noted. PSYCHIATRIC: normal mood and affect SKIN: No rash or lesions. - Constitutional Vitals: Temp Pulse Resp BP Pulse Ox 98.8 F 94 H 16 131/60 98 04/08/17 22:00 04/09/17 08:59 04/09/17 08:59 04/08/17 22:00 04/09/17 08:56 Plan Activity: advance as tolerated, up only with assistance Diet: low salt, diabetic, renal Follow up with: PRIMARY CARE, [Primary Care Provider] - 3-5 Days PAZ ROJAS NP [Advanced Practice Nurse] - 04/23/17 9:00 am STEPHANIE AVERY MD [Staff Physician] - 04/26/17 9:15 am Prescriptions: Allopurinol [Zyloprim] 100 mg PO QDAY #30 tablet Docusate Sodium [Colace] 100 mg PO BID PRN #30 capsule PRN Reason: Constipation Prednisone [predniSONE 10 mg (6-Day Pack, 21 Tabs)] 10 mg PO .TAPER #1 tab.ds.pk traMADol [Ultram 50 MG tab] 50 mg PO Q4H PRN #7 tablet PRN Reason: Pain, Moderate (4-6)
[2017-04-09] MEDS: SUBLIMAZE IV PRN (09:36)
[2017-04-09] MEDS: PLAVIX PO SCH (09:41)
[2017-04-09 09:45] LABS: BUN/Creatinine Ratio 6.13; Calcium 9.5 mg/dL (8.4-10.2); Chloride 92.1 mmol/L (98-107); Potassium 4.1 mmol/L (3.6-5.0)
[2017-04-09] MEDS: LEVEMIR SUB-Q SCH (10:30)
--- NOTE | 2017-04-09 10:46 | Progress Note ---
Assessment and Plan Currently stable cardiac status. LifeVest in place. Pt awaiting discharge today. Cont present cardiac regimen. Follow up in our [place] office with Nichole Berger NP, on 04/23/2017 @ 9:00AM. Follow up in our [place] office with Dr. Nichols for EP consultation on 2016 @ 9:15AM. Assessment and plan reviewed with pt and pt's family at bedside. The patient has been seen in conjunction with Dr. Avitia who agrees with the assessment and plan of care. - Patient Problems (1) Acute hypoxemic respiratory failure Current Visit: Yes Status: Resolved (2) Cardiac arrest Current Visit: Yes Status: Resolved (3) Cardiac arrest due to underlying cardiac condition Current Visit: Yes Status: Resolved (4) ESRD on dialysis Current Visit: Yes Status: Acute (5) Obesity (BMI 30-39.9) Current Visit: Yes Status: Chronic (6) STEMI (ST elevation myocardial infarction) Current Visit: Yes Status: Acute Qualifiers: Involved coronary artery: unspecified coronary artery Qualified Code(s): I21.3 - ST elevation (STEMI) myocardial infarction of unspecified site (7) Seizure Current Visit: Yes Status: Acute (8) Sepsis syndrome Current Visit: Yes Status: Resolved (9) Aortic stenosis Current Visit: Yes Status: Chronic Qualifiers: Cardiac valve disease etiology: C (10) Pulmonary HTN Current Visit: Yes Status: Chronic (11) CVA (cerebral vascular accident) Current Visit: No Status: Acute Qualifiers: CVA mechanism: C Precerebral and cerebral artery: P Laterality of affected vessel: L (12) Kidney stone Current Visit: No Status: Chronic (13) Rectal bleed Current Visit: No Status: Resolved (14) UTI (urinary tract infection) Current Visit: No Status: Resolved Qualifiers: Urinary tract infection type: U Hematuria presence: H Indwelling urinary catheter type: I Encounter type: E (15) Hypertension Current Visit: No Status: Chronic Qualifiers: Hypertension type: H (16) Type 2 diabetes mellitus Current Visit: No Status: Chronic Qualifiers: Diabetes mellitus complication status: D Diabetes mellitus complication detail: D Diabetic retinopathy severity: D Proliferative retinopathy type: P Diabetes mellitus macular edema: D Diabetes mellitus group home insulin use : D Laterality: L Chronic kidney disease stage: C Subjective Date of service: 04/09/17 Principal diagnosis: Acute Hypoxemic Resp Failure; STEMI Interval history: Pt resting comfortably, no complaints. LifeVest in place. VSS. Awaiting discharge today. Objective Last Vital Signs Temp 98.9 F 04/09/17 10:00 Pulse 74 04/09/17 10:00 Resp 18 04/09/17 10:00 BP 123/59 04/09/17 10:00 Pulse Ox 96 04/09/17 10:00 - Physical Examination General: Appears Well, No Apparent Distress HEENT: Positive: Normocephaly, Mucus Membranes Moist Neck: Positive: neck supple, trachea midline Cardiac: Positive: Reg Rate and Rhythm, S1/S2 Lungs: Positive: clear to auscultation Neuro: Positive: Grossly Intact Abdomen: Positive: Soft, Active Bowel Sounds Skin: Negative: Clear, Rash Musculoskeletal: No Fluid Collection, No Pain, Normal Range of Motion, other ( reproducible anterior chest wall tenderness) Extremities: Present: upper extr. pulses, lower extr. pulses. Absent: edema - Labs and Meds CBC 04/09/17 Range/Units 05:44 Hgb 9.1 L (10.1-14.3) gm/dl Hct 28.2 L (30.3-42.9) % Plt Count 115 L (140-440) K/mm3 Comprehensive Metabolic Panel 04/09/17 Range/Units 08:58 Sodium 136 L D (137-145) mmol/L Potassium 4.1 D (3.6-5.0) mmol/L Chloride 92.1 L (98-107) mmol/L Carbon Dioxide 28 (22-30) mmol/L BUN 27 H (7-17) mg/dL Creatinine 4.4 H (0.7-1.2) mg/dL Glucose 106 H (65-100) mg/dL Calcium 9.5 (8.4-10.2) mg/dL - Imaging and Cardiology EKG: report reviewed, image reviewed Echo: report reviewed (echo reviewed - EF 60 - 65%, mild MR< mild TR, moderate , mild LVH, mild to moderate pulmonary HTN, RVSP 47mmHg. ) Cardiac cath: report reviewed (patent lad stents and distal lad spasm resolved) - EKG Sinus rhythms and dysrhythmias: sinus rhythm Myocardial infarction: inferior OK (acute or rec, anterior OK (acute or rec - Allied health notes Allied health notes reviewed: RT
[2017-04-09] MEDS ORDERED: CEPHULAC PO PRN (11:00)
[2017-04-09] MEDS ORDERED: DELTASONE PO SCH (11:00)
[2017-04-09 15:53] VITALS: BP 147/51
== END 2017-04-09 16:55 | DRG 853 ==
LOC: ED 10:38 → CATH 11:55 → CC1 13:43 → 4A 03-29 21:05 → CC2 04-06 19:13
PROVIDERS: ADMIT Internal Medicine; ATTEND Internal Medicine
PROC: 0BH17EZ Insertion of Endotracheal Airway into Trachea, Via Natural or Artificial Opening (ICD-10-PCS; principal; 2017-03-16)
PROC: 5A1955Z Respiratory Ventilation, Greater than 96 Consecutive Hours (ICD-10-PCS; principal; 2017-03-16)
PROC: 027035Z Dilation of Coronary Artery, One Artery with Two Drug-eluting Intraluminal Devices, Percutaneous Approach (ICD-10-PCS; 2017-03-16)
PROC: 02C03ZZ Extirpation of Matter from Coronary Artery, One Artery, Percutaneous Approach (ICD-10-PCS; 2017-03-16)
PROC: 4A023N7 Measurement of Cardiac Sampling and Pressure, Left Heart, Percutaneous Approach (ICD-10-PCS; 2017-03-16)
PROC: B2111ZZ Fluoroscopy of Multiple Coronary Arteries using Low Osmolar Contrast (ICD-10-PCS; 2017-03-16)
PROC: 4A033R1 Measurement of Arterial Saturation, Peripheral, Percutaneous Approach (ICD-10-PCS; 2017-03-16)
PROC: 06HN33Z Insertion of Infusion Device into Left Femoral Vein, Percutaneous Approach (ICD-10-PCS; 2017-03-18)
PROC: B54CZZA Ultrasonography of Left Lower Extremity Veins, Guidance (ICD-10-PCS; 2017-03-18)
PROC: 5A1D60Z (ICD-10-PCS; 2017-03-19)
PROC: 5A09557 Assistance with Respiratory Ventilation, Greater than 96 Consecutive Hours, Continuous Positive Airway Pressure (ICD-10-PCS; 2017-03-25)
PROC: 3E0234Z Introduction of Serum, Toxoid and Vaccine into Muscle, Percutaneous Approach (ICD-10-PCS; 2017-03-25)
DX: A41.9 Sepsis, unspecified organism (principal); I46.2 Cardiac arrest due to underlying cardiac condition; I21.3 ST elevation (STEMI) myocardial infarction of unspecified site; J96.01 Acute respiratory failure with hypoxia; N18.6 End stage renal disease; I49.01 Ventricular fibrillation; G92 Toxic encephalopathy; R53.2 Functional quadriplegia; E43 Unspecified severe protein-calorie malnutrition; I63.9 Cerebral infarction, unspecified; E87.2 Acidosis; I12.0 Hypertensive chronic kidney disease with stage 5 chronic kidney disease or end stage renal disease; N39.0 Urinary tract infection, site not specified; N25.81 Secondary hyperparathyroidism of renal origin; G81.94 Hemiplegia, unspecified affecting left nondominant side; E87.1 Hypo-osmolality and hyponatremia; Z68.42 Body mass index [BMI] 45.0-49.9, adult; D63.1 Anemia in chronic kidney disease; E78.5 Hyperlipidemia, unspecified; E66.01 Morbid (severe) obesity due to excess calories; K21.9 Gastro-esophageal reflux disease without esophagitis; M19.90 Unspecified osteoarthritis, unspecified site; E11.22 Type 2 diabetes mellitus with diabetic chronic kidney disease; E87.6 Hypokalemia; R56.9 Unspecified convulsions; I35.0 Nonrheumatic aortic (valve) stenosis; I27.2 Other secondary pulmonary hypertension; R13.10 Dysphagia, unspecified; I25.10 Atherosclerotic heart disease of native coronary artery without angina pectoris; J98.2 Interstitial emphysema; G47.33 Obstructive sleep apnea (adult) (pediatric); Z85.3 Personal history of malignant neoplasm of breast; Z99.2 Dependence on renal dialysis; Z88.6 Allergy status to analgesic agent; Z87.442 Personal history of urinary calculi; Z90.49 Acquired absence of other specified parts of digestive tract; Z90.710 Acquired absence of both cervix and uterus; Z86.73 Personal history of transient ischemic attack (TIA), and cerebral infarction without residual deficits
CPT/HCPCS: 33210; 36415; 36600; 70544; 70551; 71010; 71020; 74000; 74230; 80048; 80053; 80061; 80074; 80202; 82140; 82550; 82553; 82803; 82962; 84132; 84443; 84484; 84520; 85007; 85014; 85018; 85025; 85049; 85347; 85520; 85610; 85730; 86140; 86850; 86900; 86901; 87040; 87070; 87205; 90471; 90732; 92941; 92978; 93005; 93010; 93306; 93458; 93880; 94002; 94003; 94640; 94660; 94760; 95819; A9270-GY; C1725; C1753; C1769; C1876; C1887; C1894; G0009; G8978-GP; G8979-GP; G8996-GN; G8997-GN; J0130; J0171; J0282; J0330; J0360; J0461; J0583; J0692; J0885; J1265; J1630; J1642; J1644; J1815; J1818; J1956; J2060; J2250; J2405; J2704; J2765; J3010; J3370; J7030; J7040; J7050; J7060; J7512; Q9967

== ENCOUNTER 2017-09-16 12:58 | Inpatient (IN) | payer MEDICARE ==
[2017-09-16] MEDS ORDERED: LASIX IV ONE (13:23)
--- NOTE | 2017-09-16 13:38 | Emergency Department Report ---
ED Shortness of Breath HPI - General Chief Complaint: Dyspnea/Respdistress Stated Complaint: ETHEL Time Seen by Provider: 09/16/17 13:23 Source: patient, family, EMS Mode of arrival: Stretcher Limitations: Physical Limitation - History of Present Illness Initial Comments: 66 YO FEMALE WITH CHRONIC RENAL FAILURE AND ON RENAL DIALYSIS T,TH,SAT , HERE WITH C/O OF SHORTNESS OF BREATH SINCE LAST NIGHT. PT DID NOT SKIP DIALYSIS ON SATURDAY OR DURING THE WEEK.. SHE ALSO DENIES DIETARY INDISCRETIONS. SHE MAKES A SMALL AMOUNT OF URINE MD Complaint: shortness of breath -: Gradual, days(s) (1) Improves With: nothing Known History Of: congestive heart failure, diabetes Associated Symptoms: chest pain (PRESSURE SENSATION) - Related Data Previous Rx's Medication Instructions Recorded Last Taken Type AtorvaSTATin [Lipitor] 80 mg PO QHS #30 tablet 04/05/17 Unknown Rx Clopidogrel [Plavix] 75 mg PO QDAY tablet 04/05/17 Unknown Rx Famotidine [Pepcid] 20 mg PO DAILY tablet 04/05/17 Unknown Rx Insulin Detemir [Levemir] 10 units SUB-Q DAILY units 04/05/17 Unknown Rx Insulin Regular, Human [HumuLIN R] 0 units SUB-Q Q6HR units 04/05/17 Unknown Rx Ipratropium/Albuterol Sulfate 1 ampul IH Q6HRT ampul.neb 04/05/17 Unknown Rx [DUONEB *Not for PRN Use*] Metoprolol [Lopressor TAB] 50 mg PO Q6H tablet 04/05/17 Unknown Rx Min Oil/Petrolatum [Artificial 1 applic OU Q4HR PRN #1 tube 04/05/17 Unknown Rx Tears Ophth Oint] Petrolatum,White [Vaseline Lip 1 applic TP Q2HR PRN #1 tube 04/05/17 Unknown Rx Therapy] traMADol [Ultram 50 MG tab] 50 mg PO Q4H PRN #7 tablet 04/05/17 Unknown Rx Allopurinol [Zyloprim] 100 mg PO QDAY #30 tablet 04/09/17 Unknown Rx Docusate Sodium [Colace] 100 mg PO BID PRN #30 capsule 04/09/17 Unknown Rx Ipratropium/Albuterol Sulfate 1 ampul IH TIDRT #1 ampul.neb 04/09/17 Unknown Rx [DUONEB *Not for PRN Use*] Prednisone [predniSONE 10 mg 10 mg PO .TAPER #1 tab.ds.pk 04/09/17 Unknown Rx (6-Day Pack, 21 Tabs)] Allergies Allergy/AdvReac Type Severity Reaction Status Date / Time aspirin AdvReac HEART Verified 01/23/17 16:26 FLUTTER ED Review of Systems ROS: Stated complaint: ETHEL Other details as noted in HPI Constitutional: denies: chills, fever Eyes: denies: eye pain, eye discharge, vision change ENT: denies: ear pain, throat pain Respiratory: denies: cough, wheezing Cardiovascular: chest pain, other (CHEST PRESSURE). denies: palpitations Endocrine: no symptoms reported Gastrointestinal: denies: abdominal pain, nausea, diarrhea Genitourinary: denies: urgency, dysuria, discharge Musculoskeletal: denies: back pain, joint swelling, arthralgia Skin: denies: rash, lesions Neurological: denies: headache, weakness, paresthesias Psychiatric: denies: anxiety, depression Hematological/Lymphatic: denies: easy bleeding, easy bruising ED Past Medical Hx - Past Medical History Hx Hypertension: Yes Hx Heart Attack/AMI: Yes (02/2017) Hx Congestive Heart Failure: Yes Hx Diabetes: Yes Hx GERD: Yes Hx Renal Disease: Yes (DIALYSIS ) Hx Arthritis: Yes Hx Kidney Stones: Yes Hx HIV: No Additional medical history: benign mass on intestine. HIGH CHOLESTEROL. ANEMIA. TIA - Surgical History Hx Cholecystectomy: Yes Hx Appendectomy: Yes Hx Breast Surgery: Yes (LEFT BREAST LUMPECTOMY) Additional Surgical History: AV fistula left arm, hysterectomy, , tonsillectomy, colostomy, colostomy reversal. HERNIA REPAIR. LITHOTRIPSY - Family History Family history: hypertension - Social History Smoking Status: Never Smoker Substance Use Type: None - Medications Home Medications: Home Medications Medication Instructions Recorded Confirmed Last Taken Type AtorvaSTATin [Lipitor] 80 mg PO QHS #30 tablet 04/05/17 Unknown Rx Clopidogrel [Plavix] 75 mg PO QDAY tablet 04/05/17 Unknown Rx Famotidine [Pepcid] 20 mg PO DAILY tablet 04/05/17 Unknown Rx Insulin Detemir [Levemir] 10 units SUB-Q DAILY units 04/05/17 Unknown Rx Insulin Regular, Human [HumuLIN R] 0 units SUB-Q Q6HR units 04/05/17 Unknown Rx Ipratropium/Albuterol Sulfate 1 ampul IH Q6HRT ampul.neb 04/05/17 Unknown Rx [DUONEB *Not for PRN Use*] Metoprolol [Lopressor TAB] 50 mg PO Q6H tablet 04/05/17 Unknown Rx Min Oil/Petrolatum [Artificial 1 applic OU Q4HR PRN #1 tube 04/05/17 Unknown Rx Tears Ophth Oint] Petrolatum,White [Vaseline Lip 1 applic TP Q2HR PRN #1 tube 04/05/17 Unknown Rx Therapy] traMADol [Ultram 50 MG tab] 50 mg PO Q4H PRN #7 tablet 04/05/17 Unknown Rx Allopurinol [Zyloprim] 100 mg PO QDAY #30 tablet 04/09/17 Unknown Rx Docusate Sodium [Colace] 100 mg PO BID PRN #30 capsule 04/09/17 Unknown Rx Ipratropium/Albuterol Sulfate 1 ampul IH TIDRT #1 ampul.neb 04/09/17 Unknown Rx [DUONEB *Not for PRN Use*] Prednisone [predniSONE 10 mg 10 mg PO .TAPER #1 tab.ds.pk 04/09/17 Unknown Rx (6-Day Pack, 21 Tabs)] ED Physical Exam - General Limitations: Physical Limitation General appearance: alert, in distress - Head Head exam: Present: atraumatic, normocephalic - Eye Eye exam: Present: normal appearance, EOMI - ENT ENT exam: Present: mucous membranes moist - Neck Neck exam: Present: full ROM. Absent: tenderness - Respiratory Respiratory exam: Present: respiratory distress, rales, rhonchi (ANTERIOR CHEST, POSTERIOR CHEST CLEAR) - Cardiovascular Cardiovascular Exam: Present: regular rate, normal rhythm, normal heart sounds - GI/Abdominal GI/Abdominal exam: Present: soft, other (LARGE CENTRIPITLA FAT). Absent: distended, tenderness, guarding - Rectal Rectal exam: Present: deferred - Extremities Exam Extremities exam: Present: full ROM, pedal edema, other (HYPERPIGMENTATION, POOR CIRCULATION) - Back Exam Back exam: Present: normal inspection, full ROM - Neurological Exam Neurological exam: Present: alert, oriented X3, CN II-XII intact - Psychiatric Psychiatric exam: Present: normal affect, normal mood - Skin Skin exam: Present: warm, dry, intact, normal color, rash (BILATEAL LOWER EXTREMITIES HYPERPIGMENTATION) ED Course Vital Signs 09/16/17 09/16/17 13:00 14:10 Temperature 98.2 F Pulse Rate 79 68 Respiratory 20 Rate Blood Pressure 214/109 Blood Pressure 164/77 [Right] O2 Sat by Pulse 100 98 Oximetry ED Medical Decision Making - Lab Data Result diagrams: 09/16/17 13:38 09/16/17 14:23 - EKG Data -: EKG Interpreted by Me EKG shows normal: sinus rhythm, axis, intervals, QRS complexes, ST-T waves - Radiology Data Radiology results: report reviewed (MODERATE TO SEVERE CHF), image reviewed Critical care attestation.: If time is entered above; I have spent that time in minutes in the direct care of this critically ill patient, excluding procedure time. ED Disposition Clinical Impression: Dyspnea due to congestive heart failure CHF (congestive heart failure), NYHA class IV Qualifiers: Congestive heart failure type: unspecified congestive heart failure type Qualified Code(s): I50.9 - Heart failure, unspecified Renal failure (ARF), acute on chronic Qualifiers: Acute renal failure type: unspecified Chronic kidney disease stage: on chronic dialysis Qualified Code(s): N17.9 - Acute kidney failure, unspecified; N18.9 - Chronic kidney disease, unspecified; N18.9 - Chronic kidney disease, unspecified ; Z99.2 - Dependence on renal dialysis; Z99.2 - Dependence on renal dialysis; Z99.2 - Dependence on renal dialysis; Z99.2 - Dependence on renal dialysis Hypertension Qualifiers: Hypertension type: unspecified secondary hypertension Qualified Code(s): I15.9 - Secondary hypertension, unspecified; I15 - Secondary hypertension Disposition: OP ADMIT IP TO THIS HOSP Is pt being admited?: Yes Does the pt Need Aspirin: No Condition: Critical Instructions: Hypertension (ED) Time of Disposition: 15:06 (CASE REVIEWED WITH DR ARAYA , WHO WILL ADMIT THE PT TO THE HOSPITAL)
[2017-09-16 13:57] LABS: Basophils % (Auto) 0.3 % (0.0-1.8); Eosinophils % (Auto) 1.3 % (0.0-4.3); Hematocrit 32.9 % (30.3-42.9); Hemoglobin 10.4 gm/dl (10.1-14.3); Mean Corpuscular HGB Conc 32 % (30-34); Mean Corpuscular Hemoglobin 29 pg (28-32); Mean Corpuscular Volume 91 fl (79-97); Platelet Count 183 K/mm3 (140-440); Red Blood Count 3.63 M/mm3 (3.65-5.03); Red Cell Distribution Width 18.2 % (13.2-15.2); White Blood Count 13.2 K/mm3 (4.5-11.0)
[2017-09-16] MEDS ORDERED: TRIDIL DRIP 50MG/250ML 50 MG/250 ML BOTTLE IV SCH (14:00)
[2017-09-16 14:06] LABS: INR 0.95 (0.87-1.13)
[2017-09-16 14:07] LABS: Partial Thromboplastin Time 22.6 Sec. (24.2-36.6)
[2017-09-16 14:18] LABS: BUN/Creatinine Ratio TNR; Blood Urea Nitrogen TNR mg/dL (7-17)
[2017-09-16 14:19] LABS: Anion Gap TNR mmol/L; Calcium TNR mg/dL (8.4-10.2); Carbon Dioxide TNR mmol/L (22-30); Chloride TNR mmol/L (98-107); Glucose TNR mg/dL (65-100); Potassium TNR mmol/L (3.6-5.0); Sodium TNR mmol/L (137-145)
[2017-09-16 14:28] LABS: Creatine Kinase MB 2.2 ng/mL (0.0-4.0)
--- NOTE | 2017-09-16 14:37 | XRay Report ---
AP CHEST: HISTORY: Dyspnea Moderate cardiomegaly, severe pulmonary venous congestion and moderate bilateral pleural effusions are identified. The findings have increased since 04/04/17. There is compressive atelectasis in the lower lobes but no obvious pneumonia or pneumothorax. IMPRESSION: Moderate to severe CHF.
[2017-09-16 14:53] LABS: Calcium 10.3 mg/dL (8.4-10.2); Chloride 98.5 mmol/L (98-107); Potassium 4.7 mmol/L (3.6-5.0)
[2017-09-16] MEDS ORDERED: NITRO-BID 2% TP ONE (14:55)
--- NOTE | 2017-09-16 15:00 | History and Physical Report ---
<DHAVAL ROCK - Last Filed: 09/16/17 16:08> History of Present Illness Date of admission: 09/16/17 15:06 Medications and Allergies Allergies Allergy/AdvReac Type Severity Reaction Status Date / Time aspirin AdvReac HEART Verified 01/23/17 16:26 FLUTTER Home Medications Medication Instructions Recorded Confirmed Last Taken Type AtorvaSTATin [Lipitor] 80 mg PO QHS #30 tablet 04/05/17 09/16/17 09/15/17 Rx Metoprolol [Lopressor TAB] 50 mg PO Q6H tablet 04/05/17 09/16/17 09/15/17 Rx Allopurinol [Zyloprim] 100 mg PO QDAY #30 tablet 04/09/17 09/16/17 09/15/17 Rx Hydralazine HCl 50 mg PO TID 09/16/17 09/16/17 09/15/17 History Hydralazine HCl 50 mg PO TIDWM 09/16/17 09/16/17 09/15/17 History ISOSORBIDE MONOnitrate [Imdur ER] 60 mg PO QDAY 09/16/17 09/16/17 09/15/17 History Sevelamer Carbonate [Renvela] 1,600 mg PO TIDWM 09/16/17 09/16/17 09/15/17 History Valsartan [Diovan] 80 mg PO DAILY 09/16/17 09/16/17 09/15/17 History amLODIPine [Norvasc] 10 mg PO DAILY 09/16/17 09/16/17 09/15/17 History Active Meds: Active Medications Acetaminophen (Tylenol) 650 mg PO Q4H PRN PRN Reason: Pain MILD(1-3)/Fever >100.5/AREVALO Albuterol (Proventil) 2.5 mg IH Q4HRT PRN PRN Reason: Shortness Of Breath Allopurinol (Zyloprim) 100 mg PO QDAY ANNETTE Atorvastatin Calcium (Lipitor) 80 mg PO QHS ANNETTE Clopidogrel Bisulfate (Plavix) 75 mg PO QDAY ANNETTE Docusate Sodium (Colace) 100 mg PO BID PRN PRN Reason: Constipation Famotidine (Pepcid) 20 mg PO DAILY ANNETTE Hydrophilic Ointment (Vaseline Lip Therapy) 1 applic TP Q2HR PRN PRN Reason: Dry Lips Nitroglycerin/Dextrose (Tridil Drip 50mg/250ml) 50 mg in 250 mls @ 3 mls/hr IV TITR ANNETTE; 10 MCG/MIN PRN Reason: Protocol Sodium Chloride (Nacl 0.9%) 100 mls @ 999 mls/hr IV ARGENIS PRN PRN Reason: Hypotension Insulin Detemir (Levemir) 10 units SUB-Q DAILY ANNETTE Metoprolol Tartrate (Lopressor) 50 mg PO Q6H ANNETTE Multi-Ingred Cream/Lotion/Oil/Oint (Artificial Tears Ophth Oint) 1 applic OU Q4HR PRN PRN Reason: Dry Eye(s) Ondansetron HCl (Zofran) 4 mg IV Q8H PRN PRN Reason: N/V unrelieved by Reglan Tramadol HCl (Ultram) 50 mg PO Q4H PRN PRN Reason: Pain, Moderate (4-6) Exam - Constitutional Vitals: Temp Pulse Resp BP Pulse Ox 98.2 F 68 22 167/83 100 09/16/17 13:00 09/16/17 15:15 09/16/17 15:15 09/16/17 15:15 09/16/17 15:15 Results - Labs CBC & Chem 7: 09/16/17 13:38 09/16/17 15:01 Labs: Abnormal lab results 09/16/17 09/16/17 09/16/17 Range/Units 13:38 13:38 13:38 WBC 13.2 H (4.5-11.0) K/mm3 RBC 3.63 L (3.65-5.03) M/mm3 RDW 18.2 H (13.2-15.2) % Lymph % (Auto) 6.8 L (13.4-35.0) % Hardin % (Auto) 8.9 H (0.0-7.3) % Lymph # 0.9 L (1.2-5.4) K/mm3 Hardin # 1.2 H (0.0-0.8) K/mm3 Seg Neutrophils % 82.7 H (40.0-70.0) % Seg Neutrophils # 10.9 H (1.8-7.7) K/mm3 APTT 22.6 L (24.2-36.6) Sec. BUN (7-17) mg/dL Creatinine (0.7-1.2) mg/dL Glucose (65-100) mg/dL Calcium (8.4-10.2) mg/dL CK-MB (CK-2) Rel Index 5.6 H (0-4) Troponin T 0.187 H* (0.00-0.029) ng/mL NT-Pro-B Natriuret Pep (0-900) pg/mL 09/16/17 09/16/17 09/16/17 Range/Units 13:38 14:23 15:01 WBC (4.5-11.0) K/mm3 RBC (3.65-5.03) M/mm3 RDW (13.2-15.2) % Lymph % (Auto) (13.4-35.0) % Hardin % (Auto) (0.0-7.3) % Lymph # (1.2-5.4) K/mm3 Hardin # (0.0-0.8) K/mm3 Seg Neutrophils % (40.0-70.0) % Seg Neutrophils # (1.8-7.7) K/mm3 APTT (24.2-36.6) Sec. BUN 62 H 62 H (7-17) mg/dL Creatinine 6.0 H 6.2 H (0.7-1.2) mg/dL Glucose 122 H 122 H (65-100) mg/dL Calcium 10.3 H 10.4 H (8.4-10.2) mg/dL CK-MB (CK-2) Rel Index (0-4) Troponin T (0.00-0.029) ng/mL NT-Pro-B Natriuret Pep 84029 H (0-900) pg/mL <BROOKS ARAYA - Last Filed: 09/17/17 06:02> History of Present Illness Chief complaint: Im short of breath, and i dont feel good History of present illness: 66 YO Female with ESRD on HD(T,R,Sa), HTN, HLD, DM, Anemia secondary to ESRD, Metabolic Syndrome, Obesity, presents to ED for evaluation. Pt states that she has experienced shortness of breath for the past 2 days with worsening symptoms over the past 8 hours. Pt denies fever, chills, CP, Palpitations, NVD, Syncope, unintentional weight loss, night sweats, recent ill contacts, medication noncompliance, dietary noncompliance. Pt seen and evaluated in ED and found to have fluid overload, complicated by acute hypoxemic respiratory failure. Pt treated with supplemental oxygen and diuresis. nephrology consulted in ED for urgent dialysis. Past History Past Medical History: diabetes, ESRD, hypertension, hyperlipidemia Past Surgical History: appendectomy, cholecystectomy, , hysterectomy, bowel surgery, Other (AV fistula left arm, hysterectomy, , tonsillectomy, colostomy, colostomy reversal. HERNIA REPAIR. LITHOTRIPSY) Social history: , lives with family. denies: smoking, alcohol abuse, prescription drug abuse Family history: CAD, diabetes, hypertension Medications and Allergies Active Meds: Active Medications Nitroglycerin/Dextrose (Tridil Drip 50mg/250ml) 50 mg in 250 mls @ 3 mls/hr IV TITR ANNETTE; 10 MCG/MIN PRN Reason: Protocol Review of Systems Constitutional: no weight loss, no weight gain, no fever, no chills Ears, nose, mouth and throat: no ear pain, no ear discharge, no tinnitis, no decreased hearing, no nose pain, no nasal congestion Breasts: no change in shape, no swelling, no mass Cardiovascular: shortness of breath, no chest pain, no orthopnea, no palpitations, no rapid/irregular heart beat, no edema Respiratory: no cough, no cough with sputum, no excessive sputum, no hemoptysis Gastrointestinal: no abdominal pain, no nausea, no vomiting, no diarrhea, no constipation Genitourinary Female: no dysmenorrhea, no pelvic pain, no flank pain, no menorrhagia, no dysuria, no urinary frequency, no urgency Rectal: no pain, no incontinence, no bleeding Musculoskeletal: no neck stiffness, no neck pain, no shooting arm pain, no arm numbness/tingling, no low back pain Integumentary: no rash, no pruritis, no redness, no sores, no wounds Neurological: no head injury, no transient paralysis, no paralysis, no weakness , no parathesias, no numbness, no tingling Psychiatric: no anxiety, no memory loss, no change in sleep habits, no sleep disturbances, no insomnia, no hypersomnia, no change in appetite Endocrine: no cold intolerance, no heat intolerance, no polyphagia, no excessive thirst, no polydipsia, no polyuria, no nocturia Hematologic/Lymphatic: no easy bruising, no easy bleeding Allergic/Immunologic: no urticaria, no allergic rhinitis, no wheezing Exam - Constitutional Vitals: Temp Pulse Resp BP Pulse Ox 98.2 F 68 20 164/77 98 09/16/17 13:00 09/16/17 14:10 09/16/17 14:10 09/16/17 14:10 09/16/17 14:10 General appearance: Present: mild distress - EENT Eyes: Present: PERRL ENT: hearing intact, clear oral mucosa - Neck Neck: Present: supple, normal ROM - Respiratory Respiratory effort: labored Respiratory: bilateral: diminished, rhonchi - Cardiovascular Heart Sounds: Present: S1 & S2. Absent: rub, click - Extremities Extremities: pulses symmetrical, No edema Extremity abnormal: edema Peripheral Pulses: within normal limits - Abdominal General gastrointestinal: Present: soft, non-tender, non-distended, normal bowel sounds Female genitourinary: Present: normal - Integumentary Integumentary: Present: clear, dry, clammy, decreased turgor - Musculoskeletal Musculoskeletal: generalized weakness - Psychiatric Psychiatric: appropriate mood/affect, intact judgment & insight - Neurologic Neurologic: CNII-XII intact, moves all extremities Results - Labs CBC & Chem 7: 09/16/17 13:38 09/16/17 15:01 Labs: Abnormal lab results 09/16/17 09/16/17 09/16/17 Range/Units 13:38 13:38 13:38 WBC 13.2 H (4.5-11.0) K/mm3 RBC 3.63 L (3.65-5.03) M/mm3 RDW 18.2 H (13.2-15.2) % Lymph % (Auto) 6.8 L (13.4-35.0) % Hardin % (Auto) 8.9 H (0.0-7.3) % Lymph # 0.9 L (1.2-5.4) K/mm3 Hardin # 1.2 H (0.0-0.8) K/mm3 Seg Neutrophils % 82.7 H (40.0-70.0) % Seg Neutrophils # 10.9 H (1.8-7.7) K/mm3 APTT 22.6 L (24.2-36.6) Sec. BUN (7-17) mg/dL Creatinine (0.7-1.2) mg/dL Glucose (65-100) mg/dL Calcium (8.4-10.2) mg/dL CK-MB (CK-2) Rel Index 5.6 H (0-4) Troponin T 0.187 H* (0.00-0.029) ng/mL NT-Pro-B Natriuret Pep (0-900) pg/mL 09/16/17 09/16/17 Range/Units 13:38 14:23 WBC (4.5-11.0) K/mm3 RBC (3.65-5.03) M/mm3 RDW (13.2-15.2) % Lymph % (Auto) (13.4-35.0) % Hardin % (Auto) (0.0-7.3) % Lymph # (1.2-5.4) K/mm3 Hardin # (0.0-0.8) K/mm3 Seg Neutrophils % (40.0-70.0) % Seg Neutrophils # (1.8-7.7) K/mm3 APTT (24.2-36.6) Sec. BUN 62 H (7-17) mg/dL Creatinine 6.0 H (0.7-1.2) mg/dL Glucose 122 H (65-100) mg/dL Calcium 10.3 H (8.4-10.2) mg/dL CK-MB (CK-2) Rel Index (0-4) Troponin T (0.00-0.029) ng/mL NT-Pro-B Natriuret Pep 49977 H (0-900) pg/mL Assessment and Plan - Patient Problems (1) Acute hypoxemic respiratory failure Current Visit: Yes Status: Acute Plan to address problem: Supplemental oxygen, Nebulizer therapy, urgent dialysis, NIPPV as clinically indicated, pulmonary toilet, incentive spirometry, Chest X ray, (2) Hypertensive urgency Current Visit: Yes Status: Acute Plan to address problem: Monitro BP q shift, IV hydralazine PRN, continue medical management. (3) Metabolic syndrome Current Visit: Yes Status: Acute Plan to address problem: Low cholesterol and balanced diet, increased physical activity at discharge (4) ESRD (end stage renal disease) on dialysis Current Visit: Yes Status: Acute Plan to address problem: Nephrology consulted, for urgent dialysis. (5) DVT prophylaxis Current Visit: Yes Status: Acute Plan to address problem: scd to ble while in bed.
[2017-09-16] MEDS ORDERED: TYLENOL PO PRN (15:06)
[2017-09-16] MEDS ORDERED: PROVENTIL IH PRN (15:06)
[2017-09-16] MEDS ORDERED: ZOFRAN IV PRN (15:06)
[2017-09-16] MEDS ORDERED: ULTRAM PO PRN (15:08)
[2017-09-16] MEDS ORDERED: VASELINE LIP THERAPY TP PRN (15:08)
[2017-09-16] MEDS ORDERED: ARTIFICIAL TEARS OPHTH OINT OU PRN (15:08)
[2017-09-16] MEDS ORDERED: COLACE PO PRN (15:08)
[2017-09-16 15:29] LABS: Calcium 10.4 mg/dL (8.4-10.2); Chloride 98.1 mmol/L (98-107); Potassium 4.8 mmol/L (3.6-5.0)
[2017-09-16] MEDS ORDERED: NACL 0.9% 100 ML IV PRN (16:03)
--- NOTE | 2017-09-16 18:44 | Consultation ---
History of Present Illness - Reason for Consult Consult date: 09/16/17 (consult dictated) - History of Present Illness Discussed with ER physician and Hd nurse about dialysis orders . Pt was seen and examined around 5.30pm during HD.BP-164/69,P-64, afebrile. UF as tolerated. Medications and Allergies Allergies Allergy/AdvReac Type Severity Reaction Status Date / Time aspirin AdvReac HEART Verified 01/23/17 16:26 FLUTTER Home Medications Medication Instructions Recorded Confirmed Last Taken Type AtorvaSTATin [Lipitor] 80 mg PO QHS #30 tablet 04/05/17 09/16/17 09/15/17 Rx Metoprolol [Lopressor TAB] 50 mg PO Q6H tablet 04/05/17 09/16/17 09/15/17 Rx Allopurinol [Zyloprim] 100 mg PO QDAY #30 tablet 04/09/17 09/16/17 09/15/17 Rx Hydralazine HCl 50 mg PO TID 09/16/17 09/16/17 09/15/17 History Hydralazine HCl 50 mg PO TIDWM 09/16/17 09/16/17 09/15/17 History ISOSORBIDE MONOnitrate [Imdur ER] 60 mg PO QDAY 09/16/17 09/16/17 09/15/17 History Sevelamer Carbonate [Renvela] 1,600 mg PO TIDWM 09/16/17 09/16/17 09/15/17 History Valsartan [Diovan] 80 mg PO DAILY 09/16/17 09/16/17 09/15/17 History amLODIPine [Norvasc] 10 mg PO DAILY 09/16/17 09/16/17 09/15/17 History Active Meds: Active Medications Acetaminophen (Tylenol) 650 mg PO Q4H PRN PRN Reason: Pain MILD(1-3)/Fever >100.5/AREVALO Albuterol (Proventil) 2.5 mg IH Q4HRT PRN PRN Reason: Shortness Of Breath Allopurinol (Zyloprim) 100 mg PO QDAY ANNETTE Atorvastatin Calcium (Lipitor) 80 mg PO QHS ANNETTE Clopidogrel Bisulfate (Plavix) 75 mg PO QDAY ANNETTE Docusate Sodium (Colace) 100 mg PO BID PRN PRN Reason: Constipation Famotidine (Pepcid) 20 mg PO DAILY ANNETTE Hydrophilic Ointment (Vaseline Lip Therapy) 1 applic TP Q2HR PRN PRN Reason: Dry Lips Nitroglycerin/Dextrose (Tridil Drip 50mg/250ml) 50 mg in 250 mls @ 3 mls/hr IV TITR ANNETTE; 10 MCG/MIN PRN Reason: Protocol Sodium Chloride (Nacl 0.9%) 100 mls @ 999 mls/hr IV ARGENIS PRN PRN Reason: Hypotension Insulin Detemir (Levemir) 10 units SUB-Q DAILY ANNETTE Metoprolol Tartrate (Lopressor) 50 mg PO Q6H ANNETTE Multi-Ingred Cream/Lotion/Oil/Oint (Artificial Tears Ophth Oint) 1 applic OU Q4HR PRN PRN Reason: Dry Eye(s) Ondansetron HCl (Zofran) 4 mg IV Q8H PRN PRN Reason: N/V unrelieved by Reglan Tramadol HCl (Ultram) 50 mg PO Q4H PRN PRN Reason: Pain, Moderate (4-6) Exam - Constitutional Vitals: Temp Pulse Resp BP Pulse Ox 99.0 F 66 18 172/85 100 09/16/17 16:30 09/16/17 18:30 09/16/17 16:30 09/16/17 18:30 09/16/17 15:15 Results - Labs CBC & Chem 7: 09/16/17 13:38 09/16/17 15:01 Labs: Abnormal lab results 09/16/17 09/16/17 09/16/17 Range/Units 13:38 13:38 13:38 WBC 13.2 H (4.5-11.0) K/mm3 RBC 3.63 L (3.65-5.03) M/mm3 RDW 18.2 H (13.2-15.2) % Lymph % (Auto) 6.8 L (13.4-35.0) % [place]lin % (Auto) 8.9 H (0.0-7.3) % Lymph # 0.9 L (1.2-5.4) K/mm3 [place]lin # 1.2 H (0.0-0.8) K/mm3 Seg Neutrophils % 82.7 H (40.0-70.0) % Seg Neutrophils # 10.9 H (1.8-7.7) K/mm3 APTT 22.6 L (24.2-36.6) Sec. BUN (7-17) mg/dL Creatinine (0.7-1.2) mg/dL Glucose (65-100) mg/dL Calcium (8.4-10.2) mg/dL CK-MB (CK-2) Rel Index 5.6 H (0-4) Troponin T 0.187 H* (0.00-0.029) ng/mL NT-Pro-B Natriuret Pep (0-900) pg/mL 09/16/17 09/16/17 09/16/17 Range/Units 13:38 14:23 15:01 WBC (4.5-11.0) K/mm3 RBC (3.65-5.03) M/mm3 RDW (13.2-15.2) % Lymph % (Auto) (13.4-35.0) % [place] % (Auto) (0.0-7.3) % Lymph # (1.2-5.4) K/mm3 [place] # (0.0-0.8) K/mm3 Seg Neutrophils % (40.0-70.0) % Seg Neutrophils # (1.8-7.7) K/mm3 APTT (24.2-36.6) Sec. BUN 62 H 62 H (7-17) mg/dL Creatinine 6.0 H 6.2 H (0.7-1.2) mg/dL Glucose 122 H 122 H (65-100) mg/dL Calcium 10.3 H 10.4 H (8.4-10.2) mg/dL CK-MB (CK-2) Rel Index (0-4) Troponin T (0.00-0.029) ng/mL NT-Pro-B Natriuret Pep 48259 H (0-900) pg/mL
[2017-09-16] MEDS ORDERED: APRESOLINE IV PRN (20:44)
[2017-09-16] MEDS ORDERED: NACL 0.9 (PRIMING MACHINE ONLY DIALYSIS) MC ONE (21:14)
[2017-09-17] MEDS: LOPRESSOR PO SCH ×5 (04:20→22:31)
[2017-09-17] MEDS ORDERED: NON-FORMULARY (Hydralazine Hcl [Hydralazine Hcl] 50 MG) PO SCH (08:00)
--- NOTE | 2017-09-17 08:14 | Consultation ---
REASON FOR CONSULTATION: Fluid overload and renal failure and accelerated hypertension. HISTORY OF PRESENT ILLNESS: This 66-year-old -[place] female with end-stage renal disease, hypertension, diabetes, was brought to the Emergency Room for having increasing shortness of breath since last night with cough. The patient states that she could not sleep or lie down due to shortness of breath. The patient goes to [facility] on Saturday, , Saturday. Her last treatment was Saturday, uneventful. The patient denies chest pain. Discussed with the ER physician, Dr. Wall. The patient was reported to have blood pressure of 214/109 in the ER. PAST MEDICAL HISTORY: Type 2 diabetes, hypertension, end-stage renal disease, status post left breast lumpectomy, status post colostomy reversal, lithotripsy. History of heart attack and stroke. ESRD, on hemodialysis for the past 8 years. FAMILY HISTORY: No family history of kidney failure. PERSONAL HISTORY: No history of smoking, alcohol, or drug abuse. ALLERGIES: ASPIRIN. HOME MEDICATIONS: Lipitor 80 mg once a day, Plavix 75 mg once a day, Pepcid 20 mg a day, metoprolol 50 mg, allopurinol 100 mg a day. REVIEW OF SYSTEMS: Complaints of shortness of breath and cough since last night. The patient denies fever or chills. Denies difficulty swallowing. Denies chest pain at present time. Denies abdomen pain, nausea, or vomiting. Denies diarrhea, denies GI bleeding and does not make much urine. Sometimes feet swell up. Other review of systems reviewed and negative. PHYSICAL EXAMINATION: GENERAL: The patient is alert, oriented, chronically ill looking, pleasant female. VITAL SIGNS: Blood pressure 164/69, pulse 64, afebrile. HEENT: Head is normocephalic. Eyes: Pupils reactive. Conjunctivae pale. Lips noncyanotic. NECK: No JVD. No thyroid enlargement. LUNGS: Diminished breath sounds in bases. HEART: S1, S2 regular. A 2/6 systolic murmur along the left sternal border. No pericardial rub. ABDOMEN: Soft, bowel sounds present, nontender. No liver or spleen palpable. EXTREMITIES: 1+ edema around the ankles. LABORATORY DATA: Sodium 140, potassium 4.7, chloride 98, CO2 of 26, BUN 62, creatinine 6.0, glucose 122. WBC 13.2, hemoglobin 10.4, hematocrit 32.9, platelets 183. ASSESSMENT AND PLAN: 1. Acute respiratory failure. Chest x-ray was reported to have moderate cardiomegaly and severe pulmonary venous congestion and moderate bilateral pleural effusions. 2. Accelerated hypertension. 3. End stage renal disease. 4. Anemia in chronic kidney disease. 5. Type 2 diabetes. 6. History of coronary artery disease. 7. Hypercalcemia. Hemodialysis as ordered with ultrafiltration as tolerated. Check echocardiogram about left ventricular ejection fraction. Optimize blood pressure medications. Renal diet and fluid restriction. Adjust medications per renal function. Thank you for the consultation. JOB# [id number] LYNN/AD
[2017-09-17 09:52] LABS: Hematocrit 30.5 % (30.3-42.9); Mean Corpuscular HGB Conc 33 % (30-34); Mean Corpuscular Hemoglobin 29 pg (28-32); Mean Corpuscular Volume 89 fl (79-97); Platelet Count 162 K/mm3 (140-440); Red Blood Count 3.43 M/mm3 (3.65-5.03); Red Cell Distribution Width 18.6 % (13.2-15.2); White Blood Count 8.9 K/mm3 (4.5-11.0)
[2017-09-17] MEDS ORDERED: NON-FORMULARY (Valsartan [Diovan] 80 MG) PO SCH (10:00)
[2017-09-17 10:07] LABS: Creatine Kinase MB 1.9 ng/mL (0.0-4.0)
[2017-09-17 10:09] LABS: Calcium 10.2 mg/dL (8.4-10.2); Chloride 93.4 mmol/L (98-107); Potassium 4.2 mmol/L (3.6-5.0)
--- NOTE | 2017-09-17 10:29 | Progress Note ---
<SEAN DAMON - Last Filed: 09/17/17 14:56> Assessment and Plan Assessment and plan: 66 YO Female with ESRD on HD(T,R,Sa), HTN, HLD, DM, Anemia secondary to ESRD, Metabolic Syndrome, Obesity, presents to ED for evaluation. Pt states that she has experienced shortness of breath for the past 2 days with worsening symptoms over the past 8 hours. Pt denies fever, chills, CP, Palpitations, NVD, Syncope, unintentional weight loss, night sweats, recent ill contacts, medication noncompliance, dietary noncompliance. Pt seen and evaluated in ED and found to have fluid overload, complicated by acute hypoxemic respiratory failure. Pt treated with supplemental oxygen and diuresis. nephrology consulted in ED for urgent dialysis (1) Acute hypoxemic respiratory failure Supplemental oxygen, Nebulizer therapy S/p HD yesterday NIPPV as clinically indicated, pulmonary toilet, incentive spirometry, Chest X ray, (2) Hypertensive urgency Improved, Monitro BP q shift Continue amlodipine, IV hydralazine PRN (3) Metabolic syndrome Low cholesterol and balanced diet increased physical activity at discharge (4) ESRD (end stage renal disease) on dialysis S/P HD yesterday, scheduled for today as well Nephrology following (5)Anemia Likely of chronic disease Procrit added to dialysis (6) DVT prophylaxis scd History Interval history: Patient was seen and examined. She currently denies chest pain, shortness of breath, nausea, vomiting. Hospitalist Physical - Constitutional Vitals: Temp Pulse Resp BP Pulse Ox 98.6 F 65 20 155/67 97 09/17/17 04:51 09/17/17 09:24 09/17/17 04:51 09/17/17 04:51 09/17/17 09:21 General appearance: Present: mild distress - EENT Eyes: Present: PERRL, EOM intact ENT: hearing intact, clear oral mucosa, dentition normal - Neck Neck: Present: supple, normal ROM - Respiratory Respiratory effort: normal Respiratory: bilateral: diminished - Cardiovascular Rhythm: regular Heart Sounds: Present: S1 & S2 - Extremities Extremities: no ischemia Extremity abnormal: edema Peripheral Pulses: within normal limits - Abdominal General gastrointestinal: soft, non-tender - Integumentary Integumentary: Present: clear, warm, dry - Psychiatric Psychiatric: appropriate mood/affect, cooperative - Neurologic Neurologic: CNII-XII intact, moves all extremities - Allied Health Allied health notes reviewed: nursing Results - Labs CBC & Chem 7: 09/17/17 09:08 09/17/17 09:08 Labs: Laboratory Last Values WBC 8.9 K/mm3 (4.5-11.0) 09/17/17 09:08 RBC 3.43 M/mm3 (3.65-5.03) L 09/17/17 09:08 Hgb 10.0 gm/dl (10.1-14.3) L 09/17/17 09:08 Hct 30.5 % (30.3-42.9) 09/17/17 09:08 MCV 89 fl (79-97) 09/17/17 09:08 MCH 29 pg (28-32) 09/17/17 09:08 MCHC 33 % (30-34) 09/17/17 09:08 RDW 18.6 % (13.2-15.2) H 09/17/17 09:08 Plt Count 162 K/mm3 (140-440) 09/17/17 09:08 Lymph % (Auto) 6.8 % (13.4-35.0) L 09/16/17 13:38 Kane % (Auto) 8.9 % (0.0-7.3) H 09/16/17 13:38 Eos % (Auto) 1.3 % (0.0-4.3) 09/16/17 13:38 Baso % (Auto) 0.3 % (0.0-1.8) 09/16/17 13:38 Lymph # 0.9 K/mm3 (1.2-5.4) L 09/16/17 13:38 Kane # 1.2 K/mm3 (0.0-0.8) H 09/16/17 13:38 Eos # 0.2 K/mm3 (0.0-0.4) 09/16/17 13:38 Baso # 0.0 K/mm3 (0.0-0.1) 09/16/17 13:38 Seg Neutrophils % 82.7 % (40.0-70.0) H 09/16/17 13:38 Seg Neutrophils # 10.9 K/mm3 (1.8-7.7) H 09/16/17 13:38 PT 13.1 Sec. (12.2-14.9) 09/16/17 13:38 INR 0.95 (0.87-1.13) 09/16/17 13:38 APTT 22.6 Sec. (24.2-36.6) L 09/16/17 13:38 Sodium 134 mmol/L (137-145) L 09/17/17 09:08 Potassium 4.2 mmol/L (3.6-5.0) 09/17/17 09:08 Chloride 93.4 mmol/L (98-107) L 09/17/17 09:08 Carbon Dioxide 30 mmol/L (22-30) 09/17/17 09:08 Anion Gap 15 mmol/L 09/17/17 09:08 BUN 34 mg/dL (7-17) H 09/17/17 09:08 Creatinine 4.2 mg/dL (0.7-1.2) H 09/17/17 09:08 Estimated GFR 13 ml/min 09/17/17 09:08 BUN/Creatinine Ratio 8 % 09/17/17 09:08 Glucose 92 mg/dL (65-100) 09/17/17 09:08 Lactic Acid 1.20 mmol/L (0.7-2.0) 09/16/17 13:38 Calcium 10.2 mg/dL (8.4-10.2) 09/17/17 09:08 Total Creatine Kinase 25 units/L (30-135) L 09/17/17 09:08 CK-MB (CK-2) 1.9 ng/mL (0.0-4.0) 09/17/17 09:08 CK-MB (CK-2) Rel Index 7.6 (0-4) H 09/17/17 09:08 Troponin T 0.187 ng/mL (0.00-0.029) H* 09/16/17 13:38 NT-Pro-B Natriuret Pep 23364 pg/mL (0-900) H 09/16/17 13:38 Triglycerides 131 mg/dL (2-149) 09/16/17 13:38 Cholesterol 183 mg/dL (50-199) 09/16/17 13:38 LDL Cholesterol Direct 117 mg/dL (50-130) 09/16/17 13:38 HDL Cholesterol 40 mg/dL (40-59) 09/16/17 13:38 Cholesterol/HDL Ratio 4.57 % 09/16/17 13:38 - Imaging and Cardiology Chest x-ray: report reviewed (moderate to severe CHF) <KEV JOSEPH - Last Filed: 09/17/17 23:19> Assessment and Plan Assessment and plan: I saw and evaluated the patient. I agree with the findings and the plan of care as documented in the Nurse Practitioner's~note, with the following corrections and additions. Patient with ESRD presents with acute respiratory failure and hypertensive urgency. Continue current management. Hospitalist Physical - Constitutional Vitals: Temp Pulse Resp BP Pulse Ox 99.1 F 75 20 162/62 99 09/17/17 20:04 09/17/17 22:31 09/17/17 20:04 09/17/17 22:31 09/17/17 20:04 Results - Labs CBC & Chem 7: 09/17/17 09:08 09/17/17 09:08 Labs: Laboratory Last Values WBC 8.9 K/mm3 (4.5-11.0) 09/17/17 09:08 RBC 3.43 M/mm3 (3.65-5.03) L 09/17/17 09:08 Hgb 10.0 gm/dl (10.1-14.3) L 09/17/17 09:08 Hct 30.5 % (30.3-42.9) 09/17/17 09:08 MCV 89 fl (79-97) 09/17/17 09:08 MCH 29 pg (28-32) 09/17/17 09:08 MCHC 33 % (30-34) 09/17/17 09:08 RDW 18.6 % (13.2-15.2) H 09/17/17 09:08 Plt Count 162 K/mm3 (140-440) 09/17/17 09:08 Lymph % (Auto) 6.8 % (13.4-35.0) L 09/16/17 13:38 Kane % (Auto) 8.9 % (0.0-7.3) H 09/16/17 13:38 Eos % (Auto) 1.3 % (0.0-4.3) 09/16/17 13:38 Baso % (Auto) 0.3 % (0.0-1.8) 09/16/17 13:38 Lymph # 0.9 K/mm3 (1.2-5.4) L 09/16/17 13:38 Kane # 1.2 K/mm3 (0.0-0.8) H 09/16/17 13:38 Eos # 0.2 K/mm3 (0.0-0.4) 09/16/17 13:38 Baso # 0.0 K/mm3 (0.0-0.1) 09/16/17 13:38 Seg Neutrophils % 82.7 % (40.0-70.0) H 09/16/17 13:38 Seg Neutrophils # 10.9 K/mm3 (1.8-7.7) H 09/16/17 13:38 PT 13.1 Sec. (12.2-14.9) 09/16/17 13:38 INR 0.95 (0.87-1.13) 09/16/17 13:38 APTT 22.6 Sec. (24.2-36.6) L 09/16/17 13:38 Sodium 134 mmol/L (137-145) L 09/17/17 09:08 Potassium 4.2 mmol/L (3.6-5.0) 09/17/17 09:08 Chloride 93.4 mmol/L (98-107) L 09/17/17 09:08 Carbon Dioxide 30 mmol/L (22-30) 09/17/17 09:08 Anion Gap 15 mmol/L 09/17/17 09:08 BUN 34 mg/dL (7-17) H 09/17/17 09:08 Creatinine 4.2 mg/dL (0.7-1.2) H 09/17/17 09:08 Estimated GFR 13 ml/min 09/17/17 09:08 BUN/Creatinine Ratio 8 % 09/17/17 09:08 Glucose 92 mg/dL (65-100) 09/17/17 09:08 Lactic Acid 1.20 mmol/L (0.7-2.0) 09/16/17 13:38 Calcium 10.2 mg/dL (8.4-10.2) 09/17/17 09:08 Total Creatine Kinase 25 units/L (30-135) L 09/17/17 09:08 CK-MB (CK-2) 1.9 ng/mL (0.0-4.0) 09/17/17 09:08 CK-MB (CK-2) Rel Index 7.6 (0-4) H 09/17/17 09:08 Troponin T 0.232 ng/mL (0.00-0.029) H* D 09/17/17 09:08 NT-Pro-B Natriuret Pep 13639 pg/mL (0-900) H 09/16/17 13:38 Triglycerides 131 mg/dL (2-149) 09/16/17 13:38 Cholesterol 183 mg/dL (50-199) 09/16/17 13:38 LDL Cholesterol Direct 117 mg/dL (50-130) 09/16/17 13:38 HDL Cholesterol 40 mg/dL (40-59) 09/16/17 13:38 Cholesterol/HDL Ratio 4.57 % 09/16/17 13:38
[2017-09-17] MEDS: RENVELA PO SCH ×4 (14:07→22:30)
[2017-09-17] MEDS: NORVASC PO SCH (14:08)
[2017-09-17] MEDS: PLAVIX PO SCH (14:08)
[2017-09-17] MEDS: APRESOLINE PO SCH ×2 (14:09→20:44)
[2017-09-17] MEDS: PEPCID PO SCH (14:09)
[2017-09-17] MEDS: ZYLOPRIM PO SCH (14:09)
[2017-09-17] MEDS: IMDUR PO SCH (14:09)
[2017-09-17] MEDS ORDERED: NACL 0.9% 100 ML IV PRN (14:46)
--- NOTE | 2017-09-17 14:57 | Progress Note ---
Assessment and Plan Impression * End-stage renal disease on maintenance hemodialysis * Congestive heart failure * Hypertension * Anemia secondary to ESRD * Obesity * Diabetes * History of recent cardiac arrest Recommendations * Patient is clinically doing much better * She is however clinically somewhat volume overloaded. Shall dialyze again today and keep her on her TTS schedule as outpatient * Procrit with dialysis * Binders with diet * No IV, BPR venipuncture in her access arm Subjective Date of service: 09/17/17 Interval history: Patient feels somewhat better today. Shortness of breath has improved. However she still feels somewhat volume overloaded. Denies any nausea or vomiting. Patient had uneventful hemodialysis yesterday Objective - Vital Signs Vital signs: Vital Signs - 12hr 09/17/17 09/17/17 09/17/17 04:20 04:51 05:13 Temperature 98.6 F Pulse Rate 68 68 65 Respiratory 20 Rate Blood Pressure 155/67 155/67 O2 Sat by Pulse 97 Oximetry 09/17/17 09/17/17 09/17/17 09:21 09:24 09:40 Temperature 98.3 F Pulse Rate 65 68 Respiratory 24 Rate Blood Pressure 155/71 O2 Sat by Pulse 97 96 Oximetry 09/17/17 13:38 Temperature 98.2 F Pulse Rate 72 Respiratory 22 Rate Blood Pressure 175/62 O2 Sat by Pulse 93 Oximetry - General Appearance General appearance: well-developed, well-nourished, appears stated age EENT: PERRL, mucous membranes moist Neck: no JVD, no thyromegaly, no carotid bruit, supple Respiratory: Present: Clear to Ascultation, Decreased Breath Sounds (at the bases) Cardiology: regular, normal heart rate, S1S2, no murmurs Gastrointestinal: normal, normoactive bowel sounds Integumentary: no rash, other (1+ edema. AV fistula in her left upper arm. Good bruit and thrill.) - Lab 09/17/17 09:08 09/17/17 09:08 Most recent lab results Calcium 10.2 mg/dL (8.4-10.2) 09/17/17 09:08
[2017-09-17] MEDS: DIOVAN PO SCH (17:16)
[2017-09-17] MEDS: LEVEMIR SUB-Q SCH (17:17)
[2017-09-17] MEDS: GUAIFENESIN DM SYRUP PO PRN (22:30)
[2017-09-18] MEDS: HEPARIN SUB-Q SCH ×3 (00:59→22:24)
[2017-09-18] MEDS: LOPRESSOR PO SCH ×4 (04:20→22:24)
[2017-09-18] MEDS: GUAIFENESIN DM SYRUP PO PRN ×2 (04:20→23:59)
[2017-09-18 06:43] LABS: Creatine Kinase 18 units/L (30-135); Creatine Kinase MB < 1.0 ng/mL (0.0-4.0)
[2017-09-18] MEDS: RENVELA PO SCH ×3 (08:27→17:04)
[2017-09-18] MEDS: DIOVAN PO SCH (10:27)
[2017-09-18] MEDS: PLAVIX PO SCH ×2 (10:28→11:20)
[2017-09-18] MEDS: NORVASC PO SCH (10:29)
[2017-09-18] MEDS: IMDUR PO SCH (10:30)
[2017-09-18] MEDS: PEPCID PO SCH (10:31)
[2017-09-18] MEDS: ZYLOPRIM PO SCH (10:31)
--- NOTE | 2017-09-18 10:49 | Consultation ---
History of Present Illness Consult date: 09/18/17 Requesting physician: KEV JOSEPH Consult reason: elevated troponin, other (CAD) History of present illness: The pt is a 66 YO female with a past medical history significant for CAD s/p VF arrest and STEMI with subsequent PCI of mid LAD with 2 BRITTANY in 02/2017, CAD, ESRD on HD (TTS), seizure, moderate aortic stenosis, pulm HTN, CVA, HTN, DM, SKYLAR not on CPAP, ASA allergy. Pt has h/o noncompliance with OP cardiology follow up and recently established care with [facility], Dr. Knowles, on 09/11/2017. Pt presented with c/o SOB x 1 day [employer]. She denies any chest pain, palpitations, n/v , diaphoresis, dizziness or syncope. She reports compliance with her medications and HD schedule. Of note, when pt was last seen by our practice at [facility] on 04/09/2017, she was discharged home wearing a LifeVest and was scheduled for OP EP consultation. However, she is no longer wearing the LifeVest and did not present for OP follow up in our office. LHC done 03/16/2017 s/p VF arrest in the field showed heavily calcified mid LAD with PCI to mid LAD with 2 BRITTANY, normal LVEF of 60-65%, TVP placed. Echo done 03/19/2017 showed EF 60-65%, RA mildly dilated, mild MR, mild TR, mod , mild LVH, mild to mod pulm HTN with RVSP 47mmHg. Past History Past Medical History: diabetes, ESRD, hypertension, hyperlipidemia Past Surgical History: appendectomy, cholecystectomy, , hysterectomy, bowel surgery, Other (AV fistula left arm, hysterectomy, , tonsillectomy, colostomy, colostomy reversal. HERNIA REPAIR. LITHOTRIPSY) Social history: , lives with family. denies: smoking, alcohol abuse, prescription drug abuse Family history: CAD, diabetes, hypertension Medications and Allergies Allergies Allergy/AdvReac Type Severity Reaction Status Date / Time aspirin AdvReac HEART Verified 01/23/17 16:26 FLUTTER Home Medications Medication Instructions Recorded Confirmed Last Taken Type AtorvaSTATin [Lipitor] 80 mg PO QHS #30 tablet 04/05/17 09/16/17 09/15/17 Rx Metoprolol [Lopressor TAB] 50 mg PO Q6H tablet 04/05/17 09/16/17 09/15/17 Rx Allopurinol [Zyloprim] 100 mg PO QDAY #30 tablet 04/09/17 09/16/17 09/15/17 Rx Hydralazine HCl 50 mg PO TID 09/16/17 09/16/17 09/15/17 History Hydralazine HCl 50 mg PO TIDWM 09/16/17 09/16/17 09/15/17 History ISOSORBIDE MONOnitrate [Imdur ER] 60 mg PO QDAY 09/16/17 09/16/17 09/15/17 History Sevelamer Carbonate [Renvela] 1,600 mg PO TIDWM 09/16/17 09/16/17 09/15/17 History Valsartan [Diovan] 80 mg PO DAILY 09/16/17 09/16/17 09/15/17 History amLODIPine [Norvasc] 10 mg PO DAILY 09/16/17 09/16/17 09/15/17 History Active Meds: Active Medications Acetaminophen (Tylenol) 650 mg PO Q4H PRN PRN Reason: Pain MILD(1-3)/Fever >100.5/AREVALO Albuterol (Proventil) 2.5 mg IH Q4HRT PRN PRN Reason: Shortness Of Breath Allopurinol (Zyloprim) 100 mg PO QDAY [facility] Last Admin: 09/18/17 10:31 Dose: 100 mg Amlodipine Besylate (Norvasc) 10 mg PO DAILY [facility] Last Admin: 09/18/17 10:29 Dose: 10 mg Atorvastatin Calcium (Lipitor) 80 mg PO QHS [facility] Last Admin: 09/17/17 22:30 Dose: 80 mg Clopidogrel Bisulfate (Plavix) 75 mg PO QDAY [facility] Last Admin: 09/18/17 10:28 Dose: Not Given Docusate Sodium (Colace) 100 mg PO BID PRN PRN Reason: Constipation Last Admin: 09/17/17 14:09 Dose: 100 mg Famotidine (Pepcid) 20 mg PO DAILY [facility] Last Admin: 09/18/17 10:31 Dose: 20 mg Guaifenesin (Guaifenesin Dm Syrup) 10 ml PO Q4H PRN PRN Reason: Cough Last Admin: 09/18/17 04:20 Dose: 10 ml Heparin Sodium (Porcine) (Heparin) 5,000 unit SUB-Q Q12HR [facility] Last Admin: 09/18/17 00:59 Dose: 5,000 unit Hydralazine HCl (Apresoline) 10 mg IV Q8HR PRN PRN Reason: Hypertension Hydralazine HCl (Apresoline) 50 mg PO TID [facility] Last Admin: 09/17/17 20:44 Dose: 50 mg Hydrophilic Ointment (Vaseline Lip Therapy) 1 applic TP Q2HR PRN PRN Reason: Dry Lips Nitroglycerin/Dextrose (Tridil Drip 50mg/250ml) 50 mg in 250 mls @ 3 mls/hr IV TITR ANNETTE; 10 MCG/MIN PRN Reason: Protocol Sodium Chloride (Nacl 0.9%) 100 mls @ 999 mls/hr IV ARGENIS PRN PRN Reason: Hypotension Sodium Chloride (Nacl 0.9%) 100 mls @ 999 mls/hr IV ARGENIS PRN PRN Reason: Hypotension Insulin Detemir (Levemir) 10 units SUB-Q DAILY [facility] Last Admin: 09/17/17 17:17 Dose: Not Given Isosorbide Mononitrate (Imdur) 60 mg PO QDAY [facility] Last Admin: 09/18/17 10:30 Dose: 60 mg Metoprolol Tartrate (Lopressor) 50 mg PO Q6H [facility] Last Admin: 09/18/17 10:37 Dose: 50 mg Multi-Ingred Cream/Lotion/Oil/Oint (Artificial Tears Ophth Oint) 1 applic OU Q4HR PRN PRN Reason: Dry Eye(s) Ondansetron HCl (Zofran) 4 mg IV Q8H PRN PRN Reason: N/V unrelieved by Reglan Sevelamer Carbonate (Renvela) 1,600 mg PO TIDWM [facility] Last Admin: 09/18/17 10:27 Dose: 1,600 mg Tramadol HCl (Ultram) 50 mg PO Q4H PRN PRN Reason: Pain, Moderate (4-6) Valsartan (Diovan) 80 mg PO QDAY [facility] Last Admin: 09/18/17 10:27 Dose: 80 mg Review of Systems Constitutional: no weight loss, no weight gain, no fever, no chills, no sweats Ears, nose, mouth and throat: no ear pain, no nose pain, no sinus pressure, no sinus pain Cardiovascular: shortness of breath, dyspnea on exertion, no chest pain, no orthopnea, no palpitations, no rapid/irregular heart beat, no edema, no syncope , no lightheadedness Respiratory: shortness of breath, dyspnea on exertion, no cough, no congestion, no wheezing, no pain on inspiration Gastrointestinal: no abdominal pain, no nausea, no vomiting, no diarrhea, no constipation, no change in bowel habits Genitourinary Female: no pelvic pain, no flank pain, no dysuria, no urinary frequency, no urgency Musculoskeletal: no neck stiffness, no neck pain Integumentary: no rash, no pruritis, no redness, no sores, no wounds Neurological: no head injury, no paralysis, no weakness, no parathesias, no numbness, no tingling, no seizures, no syncope Psychiatric: no anxiety Endocrine: no cold intolerance, no heat intolerance Hematologic/Lymphatic: no easy bruising, no easy bleeding, no lymphadenopathy Allergic/Immunologic: no urticaria, no wheezing, no persistent infections Physical Examination Vital Signs Temp Pulse BP Pulse Ox 98.2 F 79 214/109 100 09/16/17 13:00 09/16/17 13:00 09/16/17 13:00 09/16/17 13:00 General appearance: no acute distress HEENT: Positive: PERRL, Normocephaly, Mucus Membranes Moist Neck: Positive: neck supple, trachea midline Cardiac: Positive: Reg Rate and Rhythm, S1/S2 Lungs: Positive: Decreased Breath Sounds Neuro: Positive: Grossly Intact, Cranial Nerve 2-12 Intact Abdomen: Positive: Soft. Negative: Tender Skin: Positive: Clear. Negative: Rash, Wound Musculoskeletal: No Fluid Collection, No Pain, Normal Range of Motion Extremities: Absent: edema Results 09/17/17 09:08 09/17/17 09:08 Cardiac Enzymes 09/18/17 Range/Units 05:25 CK-MB (CK-2) < 1.0 (0.0-4.0) ng/mL - Imaging and Cardiology Echo: report reviewed ( EF 60-65%, RA mildly dilated, mild MR, mild TR, mod , mild LVH, mild to mod pulm HTN with RVSP 47mmHg. ) Cardiac cath: report reviewed (03/16/2017 s/p VF arrest in the field showed heavily calcified mid LAD with PCI to mid LAD with 2 RBITTANY, normal LVEF of 60-65% , TVP placed. ) EKG: report reviewed, image reviewed EKG interpretations - Telemetry EKG Rhythm: Sinus Rhythm - EKG Sinus rhythms and dysrhythmias: sinus rhythm Repolarization changes or abnormalities: early repolarization (normal variant) Assessment and Plan Assessment: Acute diastolic heart failure Hypertensive urgency - improving CAD s/p VF arrest and STEMI with subsequent PCI of mid LAD with 2 BRITTANY in 02/2017 ESRD on HD (TTS) Elevated troponin - EKG with NAF; pt denies chest pain; neg CK-MB; currently nonspecific in setting of acutely decompensated HF, HTN urgency and ESRD. H/o seizure Moderate aortic stenosis Mild to moderate pulm HTN Anemia H/o CVA DM SKYLAR not on CPAP ASA allergy H/o noncompliance Plan: Agree with current medical management, including plavix. Volume optimization per nephrology. Assessment and plan reviewed with pt at bedside. The patient has been seen in conjunction with Dr. Abby Mancera who agrees with the assessment and plan of care.
[2017-09-18] MEDS: APRESOLINE PO SCH ×3 (11:07→20:34)
[2017-09-18] MEDS: LEVEMIR SUB-Q SCH (11:21)
--- NOTE | 2017-09-18 13:55 | Progress Note ---
Assessment and Plan Impression * End-stage renal disease on maintenance hemodialysis * Congestive heart failure * Hypertension * Anemia secondary to ESRD * Obesity * Diabetes * History of recent cardiac arrest Recommendations * Patient is clinically doing much better * Shortness of breath has improved after extra dialysis treatment yesterday * Shall keep her on her TTS schedule as outpatient * Procrit with dialysis * Binders with diet * No IV, BPR venipuncture in her access arm * Discussed with patient's daughter at bedside Subjective Date of service: 09/18/17 Interval history: Patient is comfortable today. Her shortness of breath has improved. Patient denies any nausea vomiting or diarrhea. Objective - Vital Signs Vital signs: Vital Signs - 12hr 09/18/17 09/18/17 09/18/17 04:20 04:31 09:15 Temperature 98.4 F 98.8 F Pulse Rate 72 72 65 Respiratory 22 18 Rate Blood Pressure 147/72 165/67 147/65 O2 Sat by Pulse 100 100 Oximetry 09/18/17 09/18/17 09/18/17 10:27 10:29 10:30 Temperature Pulse Rate 65 66 66 Respiratory Rate Blood Pressure 147/65 147/65 147/65 O2 Sat by Pulse Oximetry 09/18/17 09/18/17 09/18/17 10:37 11:07 11:09 Temperature Pulse Rate 66 66 Respiratory Rate Blood Pressure 147/65 147/65 O2 Sat by Pulse 98 Oximetry 09/18/17 11:39 Temperature Pulse Rate 68 Respiratory Rate Blood Pressure O2 Sat by Pulse Oximetry - General Appearance General appearance: well-developed, well-nourished, appears stated age EENT: PERRL, mucous membranes moist Neck: no JVD, no thyromegaly, no carotid bruit, supple Respiratory: Present: Clear to Ascultation Cardiology: regular, normal heart rate Gastrointestinal: normal, normoactive bowel sounds Integumentary: no rash, other (fistula in her left upper arm. Good bruit and thrill.) - Lab 09/17/17 09:08 09/17/17 09:08 Most recent lab results Calcium 10.2 mg/dL (8.4-10.2) 09/17/17 09:08
--- NOTE | 2017-09-18 15:36 | Progress Note ---
<SEAN DAMON - Last Filed: 09/18/17 15:30> Assessment and Plan Assessment and plan: 66 YO Female with ESRD on HD(T,R,Sa), HTN, HLD, DM, Anemia secondary to ESRD, Metabolic Syndrome, Obesity, presents to ED for evaluation. Pt states that she has experienced shortness of breath for the past 2 days with worsening symptoms over the past 8 hours. Pt denies fever, chills, CP, Palpitations, NVD, Syncope, unintentional weight loss, night sweats, recent ill contacts, medication noncompliance, dietary noncompliance. Pt seen and evaluated in ED and found to have fluid overload, complicated by acute hypoxemic respiratory failure. Pt treated with supplemental oxygen and diuresis. nephrology consulted in ED for urgent dialysis (1) Acute hypoxemic respiratory failure Supplemental oxygen, Nebulizer therapy S/p HD yesterday, Will resulme TTS schedule per nephrology once OP NIPPV as clinically indicated, pulmonary toilet, incentive spirometry, Chest X ray, (2) Hypertensive urgency Improved, Monitro BP q shift Continue amlodipine, IV hydralazine PRN (3) Metabolic syndrome Low cholesterol and balanced diet increased physical activity at discharge (4) ESRD (end stage renal disease) on dialysis S/P HD yesterday, scheduled for today as well Nephrology following (5)Anemia Likely of chronic disease Hgb decreased, now 10 Procrit added to dialysis (6) DVT prophylaxis scd, on Heparin History Interval history: Patient was seen and examined. She currently denies chest pain, shortness of breath, nausea, vomiting. Nursing notes and labs reviewed Hospitalist Physical - Constitutional Vitals: Temp Pulse Resp BP Pulse Ox 98.8 F 68 18 147/65 98 09/18/17 09:15 09/18/17 11:39 09/18/17 09:15 09/18/17 11:07 09/18/17 11:09 General appearance: Present: no acute distress - EENT Eyes: Present: PERRL, EOM intact ENT: hearing intact, clear oral mucosa - Neck Neck: Present: supple, normal ROM - Respiratory Respiratory effort: normal Respiratory: bilateral: diminished - Cardiovascular Rhythm: regular Heart Sounds: Present: S1 & S2 - Extremities Extremities: no ischemia, No edema Peripheral Pulses: within normal limits - Abdominal General gastrointestinal: soft, non-tender - Integumentary Integumentary: Present: clear, warm - Psychiatric Psychiatric: appropriate mood/affect, cooperative - Neurologic Neurologic: CNII-XII intact - Allied Health Allied health notes reviewed: nursing Results - Labs CBC & Chem 7: 09/17/17 09:08 09/17/17 09:08 Labs: Laboratory Last Values WBC 8.9 K/mm3 (4.5-11.0) 09/17/17 09:08 RBC 3.43 M/mm3 (3.65-5.03) L 09/17/17 09:08 Hgb 10.0 gm/dl (10.1-14.3) L 09/17/17 09:08 Hct 30.5 % (30.3-42.9) 09/17/17 09:08 MCV 89 fl (79-97) 09/17/17 09:08 MCH 29 pg (28-32) 09/17/17 09:08 MCHC 33 % (30-34) 09/17/17 09:08 RDW 18.6 % (13.2-15.2) H 09/17/17 09:08 Plt Count 162 K/mm3 (140-440) 09/17/17 09:08 Lymph % (Auto) 6.8 % (13.4-35.0) L 09/16/17 13:38 Dawes % (Auto) 8.9 % (0.0-7.3) H 09/16/17 13:38 Eos % (Auto) 1.3 % (0.0-4.3) 09/16/17 13:38 Baso % (Auto) 0.3 % (0.0-1.8) 09/16/17 13:38 Lymph # 0.9 K/mm3 (1.2-5.4) L 09/16/17 13:38 Dawes # 1.2 K/mm3 (0.0-0.8) H 09/16/17 13:38 Eos # 0.2 K/mm3 (0.0-0.4) 09/16/17 13:38 Baso # 0.0 K/mm3 (0.0-0.1) 09/16/17 13:38 Seg Neutrophils % 82.7 % (40.0-70.0) H 09/16/17 13:38 Seg Neutrophils # 10.9 K/mm3 (1.8-7.7) H 09/16/17 13:38 PT 13.1 Sec. (12.2-14.9) 09/16/17 13:38 INR 0.95 (0.87-1.13) 09/16/17 13:38 APTT 22.6 Sec. (24.2-36.6) L 09/16/17 13:38 Sodium 134 mmol/L (137-145) L 09/17/17 09:08 Potassium 4.2 mmol/L (3.6-5.0) 09/17/17 09:08 Chloride 93.4 mmol/L (98-107) L 09/17/17 09:08 Carbon Dioxide 30 mmol/L (22-30) 09/17/17 09:08 Anion Gap 15 mmol/L 09/17/17 09:08 BUN 34 mg/dL (7-17) H 09/17/17 09:08 Creatinine 4.2 mg/dL (0.7-1.2) H 09/17/17 09:08 Estimated GFR 13 ml/min 09/17/17 09:08 BUN/Creatinine Ratio 8 % 09/17/17 09:08 Glucose 92 mg/dL (65-100) 09/17/17 09:08 POC Glucose 123 (70-105) H 09/18/17 10:51 Lactic Acid 1.20 mmol/L (0.7-2.0) 09/16/17 13:38 Calcium 10.2 mg/dL (8.4-10.2) 09/17/17 09:08 Total Creatine Kinase 18 units/L (30-135) L 09/18/17 05:25 CK-MB (CK-2) < 1.0 ng/mL (0.0-4.0) 09/18/17 05:25 CK-MB (CK-2) Rel Index 5.5 (0-4) H 09/18/17 05:25 Troponin T 0.232 ng/mL (0.00-0.029) H* 09/18/17 05:25 NT-Pro-B Natriuret Pep 05413 pg/mL (0-900) H 09/16/17 13:38 Triglycerides 131 mg/dL (2-149) 09/16/17 13:38 Cholesterol 183 mg/dL (50-199) 09/16/17 13:38 LDL Cholesterol Direct 117 mg/dL (50-130) 09/16/17 13:38 HDL Cholesterol 40 mg/dL (40-59) 09/16/17 13:38 Cholesterol/HDL Ratio 4.57 % 09/16/17 13:38 <MEENANICOLEKEV O - Last Filed: 09/18/17 17:32> Assessment and Plan Assessment and plan: I saw and evaluated the patient. I agree with the findings and the plan of care as documented in the Nurse Practitioner's~note, with the following corrections and additions. Patient with acute resp failure, ESRD on dialysis. She also had elevated Troponin therefore Cardiology consulted. Hospitalist Physical - Constitutional Vitals: Temp Pulse Resp BP Pulse Ox 98.8 F 88 18 139/62 98 09/18/17 09:15 09/18/17 17:09 09/18/17 09:15 09/18/17 17:09 09/18/17 11:09 Results - Labs CBC & Chem 7: 09/17/17 09:08 09/17/17 09:08 Labs: Laboratory Last Values WBC 8.9 K/mm3 (4.5-11.0) 09/17/17 09:08 RBC 3.43 M/mm3 (3.65-5.03) L 09/17/17 09:08 Hgb 10.0 gm/dl (10.1-14.3) L 09/17/17 09:08 Hct 30.5 % (30.3-42.9) 09/17/17 09:08 MCV 89 fl (79-97) 09/17/17 09:08 MCH 29 pg (28-32) 09/17/17 09:08 MCHC 33 % (30-34) 09/17/17 09:08 RDW 18.6 % (13.2-15.2) H 09/17/17 09:08 Plt Count 162 K/mm3 (140-440) 09/17/17 09:08 Lymph % (Auto) 6.8 % (13.4-35.0) L 09/16/17 13:38 Dawes % (Auto) 8.9 % (0.0-7.3) H 09/16/17 13:38 Eos % (Auto) 1.3 % (0.0-4.3) 09/16/17 13:38 Baso % (Auto) 0.3 % (0.0-1.8) 09/16/17 13:38 Lymph # 0.9 K/mm3 (1.2-5.4) L 09/16/17 13:38 Dawes # 1.2 K/mm3 (0.0-0.8) H 09/16/17 13:38 Eos # 0.2 K/mm3 (0.0-0.4) 09/16/17 13:38 Baso # 0.0 K/mm3 (0.0-0.1) 09/16/17 13:38 Seg Neutrophils % 82.7 % (40.0-70.0) H 09/16/17 13:38 Seg Neutrophils # 10.9 K/mm3 (1.8-7.7) H 09/16/17 13:38 PT 13.1 Sec. (12.2-14.9) 09/16/17 13:38 INR 0.95 (0.87-1.13) 09/16/17 13:38 APTT 22.6 Sec. (24.2-36.6) L 09/16/17 13:38 Sodium 134 mmol/L (137-145) L 09/17/17 09:08 Potassium 4.2 mmol/L (3.6-5.0) 09/17/17 09:08 Chloride 93.4 mmol/L (98-107) L 09/17/17 09:08 Carbon Dioxide 30 mmol/L (22-30) 09/17/17 09:08 Anion Gap 15 mmol/L 09/17/17 09:08 BUN 34 mg/dL (7-17) H 09/17/17 09:08 Creatinine 4.2 mg/dL (0.7-1.2) H 09/17/17 09:08 Estimated GFR 13 ml/min 09/17/17 09:08 BUN/Creatinine Ratio 8 % 09/17/17 09:08 Glucose 92 mg/dL (65-100) 09/17/17 09:08 POC Glucose 123 (70-105) H 09/18/17 10:51 Lactic Acid 1.20 mmol/L (0.7-2.0) 09/16/17 13:38 Calcium 10.2 mg/dL (8.4-10.2) 09/17/17 09:08 Total Creatine Kinase 18 units/L (30-135) L 09/18/17 05:25 CK-MB (CK-2) < 1.0 ng/mL (0.0-4.0) 09/18/17 05:25 CK-MB (CK-2) Rel Index 5.5 (0-4) H 09/18/17 05:25 Troponin T 0.232 ng/mL (0.00-0.029) H* 09/18/17 05:25 NT-Pro-B Natriuret Pep 02819 pg/mL (0-900) H 09/16/17 13:38 Triglycerides 131 mg/dL (2-149) 09/16/17 13:38 Cholesterol 183 mg/dL (50-199) 09/16/17 13:38 LDL Cholesterol Direct 117 mg/dL (50-130) 09/16/17 13:38 HDL Cholesterol 40 mg/dL (40-59) 09/16/17 13:38 Cholesterol/HDL Ratio 4.57 % 09/16/17 13:38
[2017-09-19] MEDS: LOPRESSOR PO SCH ×3 (04:27→18:16)
[2017-09-19 06:14] LABS: Chloride 96.1 mmol/L (98-107); Potassium 4.6 mmol/L (3.6-5.0)
[2017-09-19] MEDS: APRESOLINE PO SCH ×2 (08:07→18:14)
[2017-09-19] MEDS: RENVELA PO SCH ×3 (08:08→18:06)
--- NOTE | 2017-09-19 09:47 | Progress Note ---
Assessment and Plan Assessment: Acute diastolic heart failure - nearing/at euvolemia Hypertensive urgency - improving CAD s/p VF arrest and STEMI with subsequent PCI of mid LAD with 2 BRITTANY in 02/2017 - cont plavix ESRD on HD (TTS) Elevated troponin - EKG with NAF; pt denies chest pain; neg CK-MB; currently nonspecific in setting of acutely decompensated HF, HTN urgency and ESRD. H/o seizure Moderate aortic stenosis Mild to moderate pulm HTN Anemia H/o CVA DM SKYLAR not on CPAP ASA allergy H/o noncompliance Plan: Currently stable cardiac status. Pt for HD today. Following HD, pt may discharge home from cardiology standpoint. Recommend pt to follow up with primary muck hauler with [place] [facility], Dr. Knowles, within 3-5 days of hospital discharge. Assessment and plan reviewed with pt at bedside. The patient has been seen in conjunction with Dr. XIOMARA Mancera who agrees with the assessment and plan of care. Subjective Date of service: 09/19/17 Principal diagnosis: HF Interval history: pt resting comfortably in bed, states SOB resolved. states she feels well enough to discharge home. VSS. Objective Last Vital Signs Temp 98.3 F 09/19/17 04:22 Pulse 68 09/19/17 08:15 Resp 18 09/19/17 04:22 BP 156/69 09/19/17 08:07 Pulse Ox 99 09/19/17 04:22 - Physical Examination General: No Apparent Distress HEENT: Positive: PERRL, Normocephaly, Mucus Membranes Moist Neck: Positive: neck supple, trachea midline Cardiac: Positive: Reg Rate and Rhythm, S1/S2 Lungs: Positive: Decreased Breath Sounds Neuro: Positive: Grossly Intact, Cranial Nerve 2-12 Intact Abdomen: Positive: Soft. Negative: Tender Skin: Positive: Clear. Negative: Rash, Wound Musculoskeletal: No Fluid Collection, No Pain, Normal Range of Motion Extremities: Absent: edema - Labs and Meds Comprehensive Metabolic Panel 09/19/17 Range/Units 05:09 Sodium 137 (137-145) mmol/L Potassium 4.6 (3.6-5.0) mmol/L Chloride 96.1 L (98-107) mmol/L Carbon Dioxide 28 (22-30) mmol/L BUN 42 H (7-17) mg/dL Creatinine 4.8 H (0.7-1.2) mg/dL Glucose 86 (65-100) mg/dL Calcium 10.0 (8.4-10.2) mg/dL - Imaging and Cardiology EKG: report reviewed, image reviewed Echo: report reviewed ( EF 60-65%, RA mildly dilated, mild MR, mild TR, mod , mild LVH, mild to mod pulm HTN with RVSP 47mmHg. ) Cardiac cath: report reviewed (03/16/2017 s/p VF arrest in the field showed heavily calcified mid LAD with PCI to mid LAD with 2 BRITTANY, normal LVEF of 60-65% , TVP placed. ) - EKG Sinus rhythms and dysrhythmias: sinus rhythm Repolarization changes or abnormalities: early repolarization (normal variant)
--- NOTE | 2017-09-19 11:28 | Discharge Summary ---
<SEAN DAMON. - Last Filed: 09/19/17 11:19> Providers - Providers Date of Admission: 09/16/17 15:06 Date of discharge: 09/19/17 Attending physician: KEV JOSEPH 09/16/17 15:11 Consult to Physician [CONS] Routine Consulting Provider: CIRILO CONNORS Reason For Exam: esrd on hd Place consult to:: nephrology Notified:: yazmin Comment:: added to list pt in Hd 09/17/17 11:23 Consult to Wound/ET Nurse [CONS] Routine Reason For Exam: wound eval 09/18/17 10:12 Consult to Physician [CONS] Routine Consulting Provider: SIMIN GRANADOS Reason For Exam: CAD, elevated Troponins Place consult to:: Gunjan Granados Notified:: Elidia Phone number called:: on unit Was contact made?: Yes Time called:: 10:41 Primary care physician: KEV LOPEZ Hospitalization Condition: Stable Procedures: Chest x-ray revealed moderate to severe congestive heart failure Hospital course: 66 YO Female with ESRD on HD(T,R,Sa), HTN, HLD, DM, Anemia secondary to ESRD, Metabolic Syndrome, Obesity, presents to ED for evaluation. Pt states that she has experienced shortness of breath for the past 2 days with worsening symptoms over the past 8 hours. Pt denies fever, chills, CP, Palpitations, NVD, Syncope, unintentional weight loss, night sweats, recent ill contacts, medication noncompliance, dietary noncompliance. Pt seen and evaluated in ED and found to have fluid overload, complicated by acute hypoxemic respiratory failure. Pt treated with supplemental oxygen and diuresis. nephrology consulted in ED for urgent dialysis. Patient was treated with IV fluids, analgesics, antihypertensives, insulin, statin therapy, bronchodilators and resumed home medications. Patient received hemodialysis and received heparin for DVT prophylaxis. Discharge diagnoses Acute hypoxic respiratory failure Hypertensive urgency Metabolic syndrome End-stage renal disease on dialysis Anemia Elevated troponin Diabetes mellitus DVT prophylaxis Disposition: DC- TO HOME OR SELFCARE Time spent for discharge: 32 mins Core Measure Documentation - Palliative Care Palliative Care/ Comfort Measures: Not Applicable - Core Measures Any of the following diagnoses?: none Exam - Constitutional Vitals: Temp Pulse Resp BP Pulse Ox 98.4 F 66 20 129/64 97 09/19/17 10:00 09/19/17 10:45 09/19/17 10:00 09/19/17 10:45 09/19/17 07:54 General appearance: Present: no acute distress, well-nourished - EENT Eyes: Present: PERRL ENT: hearing intact, clear oral mucosa - Neck Neck: Present: supple, normal ROM - Respiratory Respiratory effort: normal Respiratory: bilateral: diminished - Cardiovascular Heart Sounds: Present: S1 & S2. Absent: rub, click - Extremities Extremities: pulses symmetrical, No edema Peripheral Pulses: within normal limits - Abdominal General gastrointestinal: Present: soft, non-tender, non-distended, normal bowel sounds Female genitourinary: Present: deferred, normal - Rectal Rectal Exam: deferred - Integumentary Integumentary: Present: clear, warm, dry - Musculoskeletal Musculoskeletal: gait normal, strength equal bilaterally - Psychiatric Psychiatric: appropriate mood/affect, intact judgment & insight - Neurologic Neurologic: CNII-XII intact, moves all extremities - Allied Health Allied health notes reviewed: nursing Plan Activity: fall precautions Weight Bearing Status: Weight Bear as Tolerated Diet: low fat, low cholesterol, low salt, diabetic Follow up with: PRIMARY CARE, [Referring] - 3-5 Days SIMIN GRANADOS MD [Staff Physician] - 3 Days <KEV JOSEPH - Last Filed: 09/25/17 16:42> Providers - Providers Date of Admission: 09/16/17 15:06 Attending physician: KEV JOSEPH 09/16/17 15:11 Consult to Physician [CONS] Routine Consulting Provider: CIRILO CONNORS Reason For Exam: esrd on hd Place consult to:: nephrology Notified:: yazmin Comment:: added to list pt in Hd 09/17/17 11:23 Consult to Wound/ET Nurse [CONS] Routine Reason For Exam: wound eval 09/18/17 10:12 Consult to Physician [CONS] Routine Consulting Provider: SIMIN GRANADOS Reason For Exam: CAD, elevated Troponins Place consult to:: Gunjan Granados Notified:: Elidia Phone number called:: on unit Was contact made?: Yes Time called:: 10:41 Primary care physician: KEV LOPEZ Hospitalization Hospital course: I saw and evaluated the patient. I agree with the findings and the plan of care as documented in the Nurse Practitioner's~note, with the following corrections and additions. Addendum to diagnosis: Acute diastolic CHF Exam - Constitutional Vitals: Temp Pulse Resp BP Pulse Ox 98.4 F 68 20 128/62 97 09/19/17 14:18 09/19/17 18:14 09/19/17 14:18 09/19/17 18:14 09/19/17 07:54
[2017-09-19] MEDS ORDERED: NACL 0.9 (PRIMING MACHINE ONLY DIALYSIS) MC ONE ×2 (12:41→13:52)
--- NOTE | 2017-09-19 13:40 | Progress Note ---
Assessment and Plan Impression * End-stage renal disease on maintenance hemodialysis * Congestive heart failure * Hypertension * Anemia secondary to ESRD * Obesity * Diabetes * History of recent cardiac arrest Recommendations * Patient is clinically doing much better * Shortness of breath has improved after extra dialysis treatment * Shall keep her on her TTS schedule as outpatient * Procrit with dialysis * Binders with diet * No IV, BPR venipuncture in her access arm * OK to discharge patient home from renal standpoint Subjective Date of service: 09/19/17 Principal diagnosis: HF Interval history: Patient is currently undergoing dialysis. Tolerating well. No nausea or vomiting. Denies any shortness of breath Objective - Vital Signs Vital signs: Vital Signs - 12hr 09/19/17 09/19/17 09/19/17 04:22 04:27 07:54 Temperature 98.3 F 98.5 F Pulse Rate 68 68 70 Pulse Rate [ Apical] Respiratory 18 20 Rate Blood Pressure 155/71 155/71 156/69 O2 Sat by Pulse 99 97 Oximetry 09/19/17 09/19/17 09/19/17 08:07 08:15 10:00 Temperature 98.4 F Pulse Rate 70 69 Pulse Rate [ 68 Apical] Respiratory 20 Rate Blood Pressure 156/69 144/63 O2 Sat by Pulse Oximetry 09/19/17 09/19/17 09/19/17 10:15 10:30 10:45 Temperature Pulse Rate 70 69 66 Pulse Rate [ Apical] Respiratory Rate Blood Pressure 153/68 147/66 129/64 O2 Sat by Pulse Oximetry 09/19/17 09/19/17 09/19/17 11:00 11:15 11:30 Temperature Pulse Rate 68 70 64 Pulse Rate [ Apical] Respiratory Rate Blood Pressure 132/64 144/68 130/62 O2 Sat by Pulse Oximetry 09/19/17 09/19/17 09/19/17 11:45 12:00 12:15 Temperature Pulse Rate 66 66 68 Pulse Rate [ Apical] Respiratory Rate Blood Pressure 128/64 130/64 140/66 O2 Sat by Pulse Oximetry - General Appearance General appearance: well-developed, well-nourished, appears stated age EENT: PERRL, mucous membranes moist Neck: no JVD, no thyromegaly, no carotid bruit, supple Respiratory: Present: Clear to Ascultation Cardiology: regular, normal heart rate, S1S2, no murmurs Gastrointestinal: normal, normoactive bowel sounds Integumentary: other (AV fistula in her left upper arm. Cannulated for dialysis ) - Lab 09/17/17 09:08 09/19/17 05:09 Most recent lab results Calcium 10.0 mg/dL (8.4-10.2) 09/19/17 05:09
[2017-09-19 14:24] VITALS: BP 128/62
[2017-09-19] MEDS: NORVASC PO SCH (18:12)
[2017-09-19] MEDS: DIOVAN PO SCH (18:13)
[2017-09-19] MEDS: IMDUR PO SCH (18:13)
[2017-09-19] MEDS: ZYLOPRIM PO SCH (18:14)
[2017-09-19] MEDS: PLAVIX PO SCH (18:14)
[2017-09-19] MEDS: PEPCID PO SCH (18:15)
[2017-09-19] MEDS: HEPARIN SUB-Q SCH (18:15)
[2017-09-19] MEDS: LEVEMIR SUB-Q SCH (18:33)
== END 2017-09-19 19:00 | disposition home or self-care (01) | DRG 291 ==
LOC: ED 12:58 → 4A 15:06
PROVIDERS: ADMIT Internal Medicine; ATTEND Internal Medicine
PROC: 5A1D70Z Performance of Urinary Filtration, Intermittent, Less than 6 Hours Per Day (ICD-10-PCS; principal; 2017-09-16)
PROC: 5A1D70Z Performance of Urinary Filtration, Intermittent, Less than 6 Hours Per Day (ICD-10-PCS; 2017-09-17)
PROC: 5A1D70Z Performance of Urinary Filtration, Intermittent, Less than 6 Hours Per Day (ICD-10-PCS; 2017-09-19)
DX: I13.2 Hypertensive heart and chronic kidney disease with heart failure and with stage 5 chronic kidney disease, or end stage renal disease (principal); J96.01 Acute respiratory failure with hypoxia; N18.6 End stage renal disease; I50.31 Acute diastolic (congestive) heart failure; I16.0 Hypertensive urgency; E88.81 Metabolic syndrome and other insulin resistance; E11.22 Type 2 diabetes mellitus with diabetic chronic kidney disease; E78.5 Hyperlipidemia, unspecified; K21.9 Gastro-esophageal reflux disease without esophagitis; M19.90 Unspecified osteoarthritis, unspecified site; R55 Syncope and collapse; D63.1 Anemia in chronic kidney disease; I25.10 Atherosclerotic heart disease of native coronary artery without angina pectoris; E87.5 Hyperkalemia; G47.33 Obstructive sleep apnea (adult) (pediatric); E66.9 Obesity, unspecified; I27.20 Pulmonary hypertension, unspecified; Z87.442 Personal history of urinary calculi; Z83.3 Family history of diabetes mellitus; Z68.33 Body mass index [BMI] 33.0-33.9, adult; Z91.19 Patient's noncompliance with other medical treatment and regimen; Z91.11 Patient's noncompliance with dietary regimen; Z88.6 Allergy status to analgesic agent; I25.2 Old myocardial infarction; Z90.49 Acquired absence of other specified parts of digestive tract; Z90.710 Acquired absence of both cervix and uterus; Z93.3 Colostomy status; Z82.49 Family history of ischemic heart disease and other diseases of the circulatory system; Z86.73 Personal history of transient ischemic attack (TIA), and cerebral infarction without residual deficits
CPT/HCPCS: 36415; 71010; 80048; 80061; 82140; 82550; 82553; 82962; 83880; 84484; 85025; 85027; 85610; 85730; 93005; 93010; 94760; 96374; A9270-GY; J1644; J1818; J1940; J7030

== ENCOUNTER 2017-11-29 09:47 | Outpatient (CLI) | payer MEDICARE ==
--- NOTE | 2017-11-30 15:40 | Vascular Lab Report ---
LOWER EXTREMITY VENOUS DUPLEX: REASON FOR EXAM: Pain and swelling of the lower extremities. COMMENTS ON THE RIGHT: All veins visualized are freely compressible without evidence of internal echogenicity. Flow is spontaneous and phasic throughout. COMMENTS ON THE LEFT: All veins visualized are freely compressible without evidence of internal echogenicity. Flow is spontaneous and phasic throughout. Nonspecific soft tissue changes are noted in the posterior left calf which appear to be edema. IMPRESSION: No evidence of acute or chronic deep venous thrombosis in either lower extremity. Possible area of localized edema in the left posterior calf. Clinical correlation recommended.
== END 2017-11-29 09:48 | disposition home or self-care (01) ==
LOC: VAS 09:47
DX: M79.661 Pain in right lower leg (principal); M79.662 Pain in left lower leg
CPT/HCPCS: 93970

== ENCOUNTER 2018-01-09 13:20 | Outpatient (CLI) | payer MEDICARE ==
--- NOTE | 2018-01-09 20:26 | XRay Report ---
FINAL REPORT EXAM: XR KNEE 4+V LT HISTORY: LEFT KNEE PAIN TECHNIQUE: Four views left knee Comparison: None FINDINGS: There is a total knee prosthesis without fracture or dislocation. No plain film evidence of loosening. No suprapatellar bursal effusion. Patellar resurfacing. Mild prepatellar soft tissue swelling. IMPRESSION: Left total knee prosthesis with no evidence of loosening. No fracture or dislocation. If there is a clinical question of hardware loosening, further assessment with nuclear scan may be helpful.
== END 2018-01-09 13:21 | disposition home or self-care (01) ==
LOC: WOUND 13:20
PROVIDERS: ATTEND Podiatrist
DX: M25.562 Pain in left knee (principal)

== ENCOUNTER 2018-01-13 13:06 | Outpatient (CLI) | payer MEDICARE ==
[2018-01-13] MEDS ORDERED: XYLOCAINE TOPICAL 4% TP ONE ×2 (14:00→14:10)
== END 2018-01-13 13:07 | disposition home or self-care (01) ==
LOC: WOUND 13:06
PROVIDERS: ATTEND Internal Medicine
DX: T81.89XA Other complications of procedures, not elsewhere classified, initial encounter (principal); I12.0 Hypertensive chronic kidney disease with stage 5 chronic kidney disease or end stage renal disease; E11.22 Type 2 diabetes mellitus with diabetic chronic kidney disease; N18.6 End stage renal disease; Z99.2 Dependence on renal dialysis; Y83.8 Other surgical procedures as the cause of abnormal reaction of the patient, or of later complication, without mention of misadventure at the time of the procedure
CPT/HCPCS: 99215; G0463

== ENCOUNTER 2018-01-20 09:49 | Outpatient (CLI) | payer MEDICARE ==
[2018-01-20] MEDS ORDERED: XYLOCAINE TOPICAL 4% TP ONE (10:13)
== END 2018-01-20 09:50 | disposition home or self-care (01) ==
LOC: WOUND 09:49
PROVIDERS: ATTEND Internal Medicine
DX: T81.89XD Other complications of procedures, not elsewhere classified, subsequent encounter (principal); E11.22 Type 2 diabetes mellitus with diabetic chronic kidney disease; I12.0 Hypertensive chronic kidney disease with stage 5 chronic kidney disease or end stage renal disease; N18.6 End stage renal disease; Z99.2 Dependence on renal dialysis; Y83.8 Other surgical procedures as the cause of abnormal reaction of the patient, or of later complication, without mention of misadventure at the time of the procedure

== ENCOUNTER 2018-01-27 10:30 | Outpatient (CLI) | payer MEDICARE ==
[2018-01-27] MEDS ORDERED: XYLOCAINE TOPICAL 4% TP ONE ×2 (10:48→10:49)
== END 2018-01-27 10:31 | disposition home or self-care (01) ==
LOC: WOUND 10:30
PROVIDERS: ATTEND Internal Medicine
DX: T81.89XD Other complications of procedures, not elsewhere classified, subsequent encounter (principal); E11.22 Type 2 diabetes mellitus with diabetic chronic kidney disease; I12.0 Hypertensive chronic kidney disease with stage 5 chronic kidney disease or end stage renal disease; N18.6 End stage renal disease; Z99.2 Dependence on renal dialysis; Y83.8 Other surgical procedures as the cause of abnormal reaction of the patient, or of later complication, without mention of misadventure at the time of the procedure

== ENCOUNTER 2018-02-03 10:12 | Outpatient (CLI) | payer MEDICARE ==
[2018-02-03] MEDS ORDERED: XYLOCAINE TOPICAL 4% TP ONE ×2 (10:47→10:51)
== END 2018-02-03 10:13 | disposition home or self-care (01) ==
LOC: WOUND 10:12
PROVIDERS: ATTEND Surgery
DX: T81.89XD Other complications of procedures, not elsewhere classified, subsequent encounter (principal); E11.22 Type 2 diabetes mellitus with diabetic chronic kidney disease; I12.0 Hypertensive chronic kidney disease with stage 5 chronic kidney disease or end stage renal disease; N18.6 End stage renal disease; Z99.2 Dependence on renal dialysis; Y83.8 Other surgical procedures as the cause of abnormal reaction of the patient, or of later complication, without mention of misadventure at the time of the procedure

== ENCOUNTER 2018-02-10 09:55 | Outpatient (CLI) | payer MEDICARE ==
[2018-02-10] MEDS ORDERED: XYLOCAINE TOPICAL 4% TP ONE ×2 (10:07→10:29)
== END 2018-02-10 09:56 | disposition home or self-care (01) ==
LOC: WOUND 09:55
PROVIDERS: ATTEND Surgery
DX: T81.89XD Other complications of procedures, not elsewhere classified, subsequent encounter (principal); S81.802D Unspecified open wound, left lower leg, subsequent encounter; E11.22 Type 2 diabetes mellitus with diabetic chronic kidney disease; I12.0 Hypertensive chronic kidney disease with stage 5 chronic kidney disease or end stage renal disease; N18.6 End stage renal disease; Z99.2 Dependence on renal dialysis; X58.XXXD Exposure to other specified factors, subsequent encounter; Y83.8 Other surgical procedures as the cause of abnormal reaction of the patient, or of later complication, without mention of misadventure at the time of the procedure

== ENCOUNTER 2018-02-17 10:19 | Outpatient (CLI) | payer MEDICARE ==
[2018-02-17] MEDS ORDERED: XYLOCAINE TOPICAL 4% TP ONE (10:36)
== END 2018-02-17 10:20 | disposition home or self-care (01) ==
LOC: WOUND 10:19
PROVIDERS: ATTEND Surgery
DX: T81.89XD Other complications of procedures, not elsewhere classified, subsequent encounter (principal); S81.802D Unspecified open wound, left lower leg, subsequent encounter; E11.22 Type 2 diabetes mellitus with diabetic chronic kidney disease; I12.0 Hypertensive chronic kidney disease with stage 5 chronic kidney disease or end stage renal disease; N18.6 End stage renal disease; Z99.2 Dependence on renal dialysis; X58.XXXD Exposure to other specified factors, subsequent encounter; Y83.8 Other surgical procedures as the cause of abnormal reaction of the patient, or of later complication, without mention of misadventure at the time of the procedure

== ENCOUNTER 2018-03-03 10:18 | Outpatient (CLI) | payer MEDICARE ==
[2018-03-03] MEDS ORDERED: XYLOCAINE TOPICAL 4% TP ONE ×2 (10:46→10:51)
== END 2018-03-03 10:19 | disposition home or self-care (01) ==
LOC: WOUND 10:18
PROVIDERS: ATTEND Surgery
DX: T81.89XD Other complications of procedures, not elsewhere classified, subsequent encounter (principal); S81.802D Unspecified open wound, left lower leg, subsequent encounter; E11.22 Type 2 diabetes mellitus with diabetic chronic kidney disease; I12.0 Hypertensive chronic kidney disease with stage 5 chronic kidney disease or end stage renal disease; N18.6 End stage renal disease; Z99.2 Dependence on renal dialysis; X58.XXXD Exposure to other specified factors, subsequent encounter; Y83.8 Other surgical procedures as the cause of abnormal reaction of the patient, or of later complication, without mention of misadventure at the time of the procedure
CPT/HCPCS: 99215; G0463

== ENCOUNTER 2018-03-10 10:01 | Outpatient (CLI) | payer MEDICARE ==
[2018-03-10] MEDS ORDERED: XYLOCAINE TOPICAL 4% TP ONE ×2 (10:20→10:50)
== END 2018-03-10 10:02 | disposition home or self-care (01) ==
LOC: WOUND 10:01
PROVIDERS: ATTEND Surgery
DX: T81.89XD Other complications of procedures, not elsewhere classified, subsequent encounter (principal); E11.622 Type 2 diabetes mellitus with other skin ulcer; L97.821 Non-pressure chronic ulcer of other part of left lower leg limited to breakdown of skin; L97.811 Non-pressure chronic ulcer of other part of right lower leg limited to breakdown of skin; E11.22 Type 2 diabetes mellitus with diabetic chronic kidney disease; I12.0 Hypertensive chronic kidney disease with stage 5 chronic kidney disease or end stage renal disease; N18.6 End stage renal disease; E83.59 Other disorders of calcium metabolism; Z99.2 Dependence on renal dialysis; Y83.8 Other surgical procedures as the cause of abnormal reaction of the patient, or of later complication, without mention of misadventure at the time of the procedure
CPT/HCPCS: 97597

== ENCOUNTER 2018-03-17 10:10 | Outpatient (CLI) | payer MEDICARE ==
[2018-03-17] MEDS ORDERED: XYLOCAINE TOPICAL 4% TP ONE ×2 (10:25→10:50)
== END 2018-03-17 10:11 | disposition home or self-care (01) ==
LOC: WOUND 10:10
PROVIDERS: ATTEND Surgery
DX: T81.89XD Other complications of procedures, not elsewhere classified, subsequent encounter (principal); E11.622 Type 2 diabetes mellitus with other skin ulcer; L97.821 Non-pressure chronic ulcer of other part of left lower leg limited to breakdown of skin; L97.811 Non-pressure chronic ulcer of other part of right lower leg limited to breakdown of skin; E11.22 Type 2 diabetes mellitus with diabetic chronic kidney disease; I12.0 Hypertensive chronic kidney disease with stage 5 chronic kidney disease or end stage renal disease; N18.6 End stage renal disease; E83.59 Other disorders of calcium metabolism; Z99.2 Dependence on renal dialysis; Y83.8 Other surgical procedures as the cause of abnormal reaction of the patient, or of later complication, without mention of misadventure at the time of the procedure

== ENCOUNTER 2018-03-24 10:39 | Outpatient (CLI) | payer MEDICARE ==
[~2018-03-24 10:39] MED LIST: XYLOCAINE TOPICAL 4% TP ONE
[2018-03-24] MEDS ORDERED: XYLOCAINE TOPICAL 4% TP ONE (11:08)
== END 2018-03-24 10:40 | disposition home or self-care (01) ==
LOC: WOUND 10:39
PROVIDERS: ATTEND Surgery
DX: T81.89XD Other complications of procedures, not elsewhere classified, subsequent encounter (principal); E11.622 Type 2 diabetes mellitus with other skin ulcer; L97.811 Non-pressure chronic ulcer of other part of right lower leg limited to breakdown of skin; L97.821 Non-pressure chronic ulcer of other part of left lower leg limited to breakdown of skin; E11.22 Type 2 diabetes mellitus with diabetic chronic kidney disease; I12.0 Hypertensive chronic kidney disease with stage 5 chronic kidney disease or end stage renal disease; N18.6 End stage renal disease; Z99.2 Dependence on renal dialysis; Y83.8 Other surgical procedures as the cause of abnormal reaction of the patient, or of later complication, without mention of misadventure at the time of the procedure
CPT/HCPCS: 99214; G0463

== ENCOUNTER 2018-03-26 16:18 | Emergency (ER) | payer MEDICARE ==
[2018-03-26] MEDS ORDERED: NACL 0.9% 1000 ML 1,000 ML IV ONE (17:41)
--- NOTE | 2018-03-26 18:21 | Emergency Department Report ---
ED General Adult HPI - General Chief complaint: Abdominal Pain Stated complaint: N/V Time Seen by Provider: 03/26/18 17:35 Source: patient Mode of arrival: Ambulatory Limitations: No Limitations - History of Present Illness Initial comments: Patient presents to emergency department for cough that she states been present for greater than 3 days. Patient states that the cough and has been so intense that she now has lower lower abdominal pain. Patient denies chest pain, shortness of breath, headache. - Related Data Home Medications Medication Instructions Recorded Confirmed Last Taken Allopurinol [Zyloprim] 100 mg PO QDAY MDD 100 mg 01/01/18 01/01/18 12/25/17 100 mg Apixaban [Eliquis] 5 mg PO BID MDD 10 mg 01/01/18 01/01/18 12/25/17 5 mg Cinacalcet HCl [Sensipar] 60 mg PO DAILY MDD 60 mg 01/01/18 01/01/18 12/31/17 60 mg Cinacalcet HCl [Sensipar] 60 mg PO DAILY MDD 60 mg 01/01/18 01/01/18 12/31/17 60 mg Lactulose 10 gm PO PRN MDD 10 gm 01/01/18 01/01/18 Unknown Previous Rx's Medication Instructions Recorded Last Taken Type AtorvaSTATin [Lipitor] 80 mg PO QHS #30 tablet 10/08/17 12/25/17 Rx 80 mg Epoetin Kelton 10,000 Unit [Procrit] 10,000 unit IV ARGENIS PRN vial 10/08/17 Rx 10,000 unit /ml Epoetin Kelton 10,000 Unit [Procrit] 10,000 unit IV ARGENIS PRN vial 01/05/18 Unknown Rx Famotidine [Pepcid] 10 mg PO DAILY #30 tablet 01/05/18 Unknown Rx Gabapentin [Neurontin] 300 mg PO BID #60 capsule 01/05/18 Unknown Rx ISOSORBIDE MONOnitrate [Imdur ER] 60 mg PO QDAY #30 tablet 01/05/18 Unknown Rx Insulin Regular, Human [HumuLIN R] 6 units SUB-Q ACHS #1 units 01/05/18 Unknown Rx Sevelamer Carbonate [Renvela] 1,600 mg PO TIDWM #90 tablet 01/05/18 Unknown Rx Valsartan [Diovan] 80 mg PO DAILY #30 tablet 01/05/18 Unknown Rx oxyCODONE /ACETAMINOPHEN [Percocet 1 tab PO Q6H PRN #50 tablet 01/05/18 Unknown Rx 5/325 mg] oxyCODONE /ACETAMINOPHEN [Percocet 1 tab PO Q6HR PRN #60 tablet 01/05/18 Unknown Rx 5/325 mg] ALBUTEROL Inhaler [ProAir HFA 2 puff IH QID PRN #1 inhalation 03/27/18 Unknown Rx Inhaler] Benzonatate [Tessalon Perles] 100 mg PO Q8HR PRN #20 capsule 03/27/18 Unknown Rx Allergies Allergy/AdvReac Type Severity Reaction Status Date / Time aspirin AdvReac HEART Verified 01/23/17 16:26 FLUTTER ED Review of Systems ROS: Stated complaint: N/V Other details as noted in HPI Constitutional: denies: chills, fever Eyes: denies: eye pain, eye discharge, vision change ENT: denies: ear pain, throat pain Respiratory: cough. denies: shortness of breath, wheezing Cardiovascular: denies: chest pain, palpitations Endocrine: no symptoms reported Gastrointestinal: abdominal pain, nausea. denies: diarrhea Genitourinary: denies: urgency, dysuria, discharge Musculoskeletal: denies: back pain, joint swelling, arthralgia Skin: denies: rash, lesions Neurological: denies: headache, weakness, paresthesias Psychiatric: denies: anxiety, depression Hematological/Lymphatic: denies: easy bleeding, easy bruising ED Past Medical Hx - Past Medical History Previous Medical History?: Yes Hx Hypertension: Yes Hx Heart Attack/AMI: Yes (03/16) Hx Congestive Heart Failure: Yes Hx Diabetes: Yes Hx GERD: Yes Hx Renal Disease: Yes (DIALYSIS ) Hx Arthritis: Yes Hx Kidney Stones: Yes Hx Asthma: No Hx COPD: No Hx HIV: No Additional medical history: benign mass on intestine. HIGH CHOLESTEROL. ANEMIA. TIA - Surgical History Past Surgical History?: Yes Hx Coronary Stent: Yes (x2) Hx Cholecystectomy: Yes Hx Appendectomy: Yes Hx Breast Surgery: Yes (LEFT BREAST LUMPECTOMY) Additional Surgical History: AV fistula left arm, hysterectomy, , tonsillectomy, colostomy, colostomy reversal. HERNIA REPAIR. LITHOTRIPSY - Social History Smoking Status: Never Smoker - Medications Home Medications: Home Medications Medication Instructions Recorded Confirmed Last Taken Type AtorvaSTATin [Lipitor] 80 mg PO QHS #30 tablet 10/08/17 01/01/18 12/25/17 Rx 80 mg Epoetin Kelton 10,000 Unit [Procrit] 10,000 unit IV ARGENIS PRN vial 10/08/1712/31/17 Rx 10,000 unit /ml Allopurinol [Zyloprim] 100 mg PO QDAY MDD 100 mg 01/01/18 01/01/18 12/25/17 History 100 mg Apixaban [Eliquis] 5 mg PO BID MDD 10 mg 01/01/18 01/01/18 12/25/17 History 5 mg Cinacalcet HCl [Sensipar] 60 mg PO DAILY MDD 60 mg 01/01/18 01/01/18 12/31/17 History 60 mg Cinacalcet HCl [Sensipar] 60 mg PO DAILY MDD 60 mg 01/01/18 01/01/18 12/31/17 History 60 mg Lactulose 10 gm PO PRN MDD 10 gm 01/01/18 01/01/18 Unknown History Epoetin Kelton 10,000 Unit [Procrit] 10,000 unit IV ARGENIS PRN vial 01/05/18 Unknown Rx Famotidine [Pepcid] 10 mg PO DAILY #30 tablet 01/05/18 Unknown Rx Gabapentin [Neurontin] 300 mg PO BID #60 capsule 01/05/18 Unknown Rx ISOSORBIDE MONOnitrate [Imdur ER] 60 mg PO QDAY #30 tablet 01/05/18 Unknown Rx Insulin Regular, Human [HumuLIN R] 6 units SUB-Q ACHS #1 units 01/05/18 Unknown Rx Sevelamer Carbonate [Renvela] 1,600 mg PO TIDWM #90 tablet 01/05/18 Unknown Rx Valsartan [Diovan] 80 mg PO DAILY #30 tablet 01/05/18 Unknown Rx oxyCODONE /ACETAMINOPHEN [Percocet 1 tab PO Q6H PRN #50 tablet 01/05/18 Unknown Rx 5/325 mg] oxyCODONE /ACETAMINOPHEN [Percocet 1 tab PO Q6HR PRN #60 tablet 01/05/18 Unknown Rx 5/325 mg] ALBUTEROL Inhaler [ProAir HFA 2 puff IH QID PRN #1 inhalation 03/27/18 Unknown Rx Inhaler] Benzonatate [Tessalon Perles] 100 mg PO Q8HR PRN #20 capsule 03/27/18 Unknown Rx ED Physical Exam - General Limitations: No Limitations General appearance: alert, in no apparent distress - Head Head exam: Present: atraumatic, normocephalic - Eye Eye exam: Present: normal appearance, PERRL, EOMI - ENT ENT exam: Present: mucous membranes moist - Neck Neck exam: Present: normal inspection - Respiratory Respiratory exam: Present: normal lung sounds bilaterally. Absent: respiratory distress, wheezes, rales - Cardiovascular Cardiovascular Exam: Present: regular rate, normal rhythm. Absent: systolic murmur, diastolic murmur, rubs, gallop - GI/Abdominal GI/Abdominal exam: Present: soft, normal bowel sounds. Absent: distended, tenderness - Rectal Rectal exam: Present: deferred - Extremities Exam Extremities exam: Present: normal inspection - Neurological Exam Neurological exam: Present: alert, oriented X3, CN II-XII intact. Absent: motor sensory deficit - Psychiatric Psychiatric exam: Present: normal affect, normal mood - Skin Skin exam: Present: warm, dry, intact, normal color. Absent: rash ED Course Vital Signs 03/26/18 18:45 Temperature 101.4 F H Pulse Rate 84 Respiratory 26 H Rate Blood Pressure 125/50 [Right] O2 Sat by Pulse 99 Oximetry ED Medical Decision Making - Lab Data Result diagrams: 03/26/18 23:58 03/26/18 18:28 - EKG Data EKG shows normal: sinus rhythm - EKG Data Interpretation: nonspecific ST-T wave stephanie, LVH - Medical Decision Making Workup was discussed with patient and her family. The patient's initial chief complaint was cough and lower abdominal pain. Troponin was ordered before I saw the patient and the elevated troponin is likely secondary to noncardiac reasons such as cardiac stretch and inability to clear the troponin secondary to end-stage renal disease. Patient's chart was reviewed and she has had elevated troponins in the past with negative stress test within the last year. Patient given calcium gluconate and Kayexalate for hyperkalemia and is due for dialysis later today Critical care attestation.: If time is entered above; I have spent that time in minutes in the direct care of this critically ill patient, excluding procedure time. ED Disposition Clinical Impression: Bronchitis, Hyperkalemia Disposition: DC- TO HOME OR SELFCARE Is pt being admited?: No Does the pt Need Aspirin: No Condition: Stable Instructions: Abdominal Pain (ED), Chronic Bronchitis (ED), Acute Bronchitis ( ED), Hyperkalemia (ED) Additional Instructions: Return if symptoms become worse Prescriptions: ALBUTEROL Inhaler [ProAir HFA Inhaler] 2 puff IH QID PRN #1 inhalation PRN Reason: Shortness Of Breath Benzonatate [Tessalon Perles] 100 mg PO Q8HR PRN #20 capsule PRN Reason: Cough Referrals: PRIMARY CARE, [Primary Care Provider] - 3-5 Days FANTA MANCUSO MD [Staff Physician] - 3-5 Days [facility] [Outside] - 3-5 Days [facility] [Outside] - 3-5 Days Time of Disposition: 00:53
[2018-03-26] MEDS ORDERED: LEVAQUIN 500MG/100ML 500 MG/100 ML BAG IV ONE (18:57)
[2018-03-26 19:16] LABS: Albumin 3.8 g/dL (3.9-5); Calcium 10.4 mg/dL (8.4-10.2)
[2018-03-26 19:34] LABS: Chol/HDL Ratio 2.6 %
[2018-03-26] MEDS ORDERED: BABY ASPIRIN PO ONE (19:57)
--- NOTE | 2018-03-26 20:37 | XRay Report ---
FINAL REPORT EXAM: XR CHEST 1V AP HISTORY: cough TECHNIQUE: AP portable view of the chest. PRIORS: 12/31/2017 FINDINGS: There is atherosclerotic calcification of the thoracic aorta. The cardiac silhouette is moderately enlarged without change. There is mild prominence of the central pulmonary vascularity. The lungs are hypo aerated. There is blunting of the left costophrenic angle most consistent with a small pleural effusion. There is no significant interval change. The bones and soft tissues are unremarkable. IMPRESSION: Findings suggest mild CHF and a small left pleural effusion without significant interval change.
[2018-03-27 00:17] LABS: Basophils # (Auto) 0.1 K/mm3 (0.0-0.1); Basophils % (Auto) 0.6 % (0.0-1.8); Eosinophils # (Auto) 0.1 K/mm3 (0.0-0.4); Eosinophils % (Auto) 0.5 % (0.0-4.3); Hematocrit 34.3 % (30.3-42.9); Lymphocytes # (Auto) 1.2 K/mm3 (1.2-5.4); Mean Corpuscular HGB Conc 32 % (30-34); Mean Corpuscular Hemoglobin 28 pg (28-32); Mean Corpuscular Volume 88 fl (79-97); Monocytes # (Auto) 1.8 K/mm3 (0.0-0.8); Monocytes % (Auto) 13.2 % (0.0-7.3); Platelet Count 184 K/mm3 (140-440); Red Blood Count 3.89 M/mm3 (3.65-5.03); Red Cell Distribution Width 18.6 % (13.2-15.2)
[2018-03-27] MEDS ORDERED: CALCIUM GLUCONATE 1,000 MG in NACL 0.9% 100 ML IV ONE (00:34)
[2018-03-27] MEDS ORDERED: KIONEX PO ONE (00:34)
[2018-03-27 03:15] VITALS: BP 126/73
== END 2018-03-27 03:14 | disposition home or self-care (01) ==
LOC: ED 16:18
DX: J40 Bronchitis, not specified as acute or chronic (principal); E87.5 Hyperkalemia; R10.30 Lower abdominal pain, unspecified; I11.0 Hypertensive heart disease with heart failure; I50.9 Heart failure, unspecified; E11.9 Type 2 diabetes mellitus without complications; K21.9 Gastro-esophageal reflux disease without esophagitis; M19.90 Unspecified osteoarthritis, unspecified site; E78.00 Pure hypercholesterolemia, unspecified; Z90.49 Acquired absence of other specified parts of digestive tract; Z87.442 Personal history of urinary calculi; Z79.4 Long term (current) use of insulin; Z98.890 Other specified postprocedural states; Z88.6 Allergy status to analgesic agent
CPT/HCPCS: 36415; 71045; 80053; 80061; 82140; 83690; 83880; 84484; 85025; 87040; 93005; 93010; 96365; 96375; 99284; J0610; J1956

== ENCOUNTER 2018-03-31 10:33 | Outpatient (CLI) | payer MEDICARE ==
[2018-03-31] MEDS ORDERED: XYLOCAINE TOPICAL 4% TP ONE ×2 (10:39→14:12)
== END 2018-03-31 10:34 | disposition home or self-care (01) ==
LOC: WOUND 10:33
PROVIDERS: ATTEND Surgery
DX: T81.89XD Other complications of procedures, not elsewhere classified, subsequent encounter (principal); E11.622 Type 2 diabetes mellitus with other skin ulcer; L97.811 Non-pressure chronic ulcer of other part of right lower leg limited to breakdown of skin; L97.821 Non-pressure chronic ulcer of other part of left lower leg limited to breakdown of skin; E11.22 Type 2 diabetes mellitus with diabetic chronic kidney disease; I12.0 Hypertensive chronic kidney disease with stage 5 chronic kidney disease or end stage renal disease; N18.6 End stage renal disease; E83.59 Other disorders of calcium metabolism; Z99.2 Dependence on renal dialysis; Y83.8 Other surgical procedures as the cause of abnormal reaction of the patient, or of later complication, without mention of misadventure at the time of the procedure

== ENCOUNTER 2018-04-07 09:53 | Outpatient (CLI) | payer MEDICARE ==
[2018-04-07] MEDS ORDERED: XYLOCAINE TOPICAL 4% TP ONE ×2 (10:00→10:08)
== END 2018-04-07 09:54 | disposition home or self-care (01) ==
LOC: WOUND 09:53
PROVIDERS: ATTEND Surgery
DX: T81.89XD Other complications of procedures, not elsewhere classified, subsequent encounter (principal); E11.622 Type 2 diabetes mellitus with other skin ulcer; L97.811 Non-pressure chronic ulcer of other part of right lower leg limited to breakdown of skin; L97.821 Non-pressure chronic ulcer of other part of left lower leg limited to breakdown of skin; E11.22 Type 2 diabetes mellitus with diabetic chronic kidney disease; I12.0 Hypertensive chronic kidney disease with stage 5 chronic kidney disease or end stage renal disease; N18.6 End stage renal disease; E83.59 Other disorders of calcium metabolism; Z99.2 Dependence on renal dialysis; Y83.8 Other surgical procedures as the cause of abnormal reaction of the patient, or of later complication, without mention of misadventure at the time of the procedure

== ENCOUNTER 2018-04-14 10:26 | Outpatient (CLI) | payer MEDICARE ==
[2018-04-14] MEDS ORDERED: XYLOCAINE TOPICAL 4% TP ONE (10:44)
== END 2018-04-14 10:27 | disposition home or self-care (01) ==
LOC: WOUND 10:26
PROVIDERS: ATTEND Surgery
DX: T81.89XD Other complications of procedures, not elsewhere classified, subsequent encounter (principal); E11.622 Type 2 diabetes mellitus with other skin ulcer; L97.811 Non-pressure chronic ulcer of other part of right lower leg limited to breakdown of skin; L97.821 Non-pressure chronic ulcer of other part of left lower leg limited to breakdown of skin; E11.22 Type 2 diabetes mellitus with diabetic chronic kidney disease; I12.0 Hypertensive chronic kidney disease with stage 5 chronic kidney disease or end stage renal disease; N18.6 End stage renal disease; E83.59 Other disorders of calcium metabolism; Z99.2 Dependence on renal dialysis; Y83.8 Other surgical procedures as the cause of abnormal reaction of the patient, or of later complication, without mention of misadventure at the time of the procedure
CPT/HCPCS: 99214; G0463

== ENCOUNTER 2018-04-16 22:18 | Inpatient (IN) | payer MEDICARE ==
[2018-04-16] MEDS ORDERED: SUBLIMAZE IV ONE (22:55)
--- NOTE | 2018-04-16 22:57 | Emergency Department Report ---
ED General Adult HPI - General Chief complaint: Abdominal Pain Stated complaint: ABDOMINAL PAIN Time Seen by Provider: 04/16/18 22:47 Source: patient, EMS (ems notes not available at time of chart dictation), RN notes reviewed, old records reviewed Mode of arrival: Stretcher Limitations: No Limitations - History of Present Illness Initial comments: Nephrology: Dr. Worrell Past medical history: End-stage renal disease on dialysis Saturday, , Saturday, hypertension, history of cardiac arrest This is a 67-year-old female who is unknown to this provider previously. Patient presents to the ER with nontraumatic painful swelling of her left anterior labia. She reports that she has an abscess. It is draining. The pain is sharp. It does not radiate anywhere. It increases with palpation. It decreases with rest. She is due for dialysis later on today. -: Gradual Location: genitals Radiation: non-radiation Quality: aching, sharp Consistency: constant Improves with: movement, rest Associated Symptoms: malaise, weakness, other (see hpi). denies: confusion, chest pain, cough, diaphoresis, fever/chills, headaches, loss of appetite, nausea/vomiting, rash, seizure, shortness of breath, syncope - Related Data Home Medications Medication Instructions Recorded Confirmed Last Taken Allopurinol [Zyloprim] 100 mg PO QDAY MDD 100 mg 01/01/18 01/01/18 12/25/17 100 mg Apixaban [Eliquis] 5 mg PO BID MDD 10 mg 01/01/18 01/01/18 12/25/17 5 mg Cinacalcet HCl [Sensipar] 60 mg PO DAILY MDD 60 mg 01/01/18 01/01/18 12/31/17 60 mg Cinacalcet HCl [Sensipar] 60 mg PO DAILY MDD 60 mg 01/01/18 01/01/18 12/31/17 60 mg Lactulose 10 gm PO PRN MDD 10 gm 01/01/18 01/01/18 Unknown Previous Rx's Medication Instructions Recorded Last Taken Type AtorvaSTATin [Lipitor] 80 mg PO QHS #30 tablet 10/08/17 12/25/17 Rx 80 mg Epoetin Kelton 10,000 Unit [Procrit] 10,000 unit IV ARGENIS PRN vial 10/08/17 Rx 10,000 unit /ml Epoetin Kelton 10,000 Unit [Procrit] 10,000 unit IV ARGENIS PRN vial 01/05/18 Unknown Rx Famotidine [Pepcid] 10 mg PO DAILY #30 tablet 01/05/18 Unknown Rx Gabapentin [Neurontin] 300 mg PO BID #60 capsule 01/05/18 Unknown Rx ISOSORBIDE MONOnitrate [Imdur ER] 60 mg PO QDAY #30 tablet 01/05/18 Unknown Rx Insulin Regular, Human [HumuLIN R] 6 units SUB-Q ACHS #1 units 01/05/18 Unknown Rx Sevelamer Carbonate [Renvela] 1,600 mg PO TIDWM #90 tablet 01/05/18 Unknown Rx Valsartan [Diovan] 80 mg PO DAILY #30 tablet 01/05/18 Unknown Rx oxyCODONE /ACETAMINOPHEN [Percocet 1 tab PO Q6H PRN #50 tablet 01/05/18 Unknown Rx 5/325 mg] oxyCODONE /ACETAMINOPHEN [Percocet 1 tab PO Q6HR PRN #60 tablet 01/05/18 Unknown Rx 5/325 mg] ALBUTEROL Inhaler [ProAir HFA 2 puff IH QID PRN #1 inhalation 03/27/18 Unknown Rx Inhaler] Benzonatate [Tessalon Perles] 100 mg PO Q8HR PRN #20 capsule 03/27/18 Unknown Rx Allergies Allergy/AdvReac Type Severity Reaction Status Date / Time aspirin AdvReac HEART Verified 01/23/17 16:26 FLUTTER ED Review of Systems ROS: Stated complaint: ABDOMINAL PAIN Other details as noted in HPI Comment: All other systems reviewed and negative ED Past Medical Hx - Past Medical History Hx Hypertension: Yes Hx Heart Attack/AMI: Yes (03/16) Hx Congestive Heart Failure: Yes Hx Diabetes: Yes Hx GERD: Yes Hx Renal Disease: Yes (DIALYSIS ) Hx Arthritis: Yes Hx Kidney Stones: Yes Hx Asthma: No Hx COPD: No Hx HIV: No Additional medical history: benign mass on intestine. HIGH CHOLESTEROL. ANEMIA. TIA - Surgical History Hx Coronary Stent: Yes (x2) Hx Cholecystectomy: Yes Hx Appendectomy: Yes Hx Breast Surgery: Yes (LEFT BREAST LUMPECTOMY) Additional Surgical History: AV fistula left arm, hysterectomy, , tonsillectomy, colostomy, colostomy reversal. HERNIA REPAIR. LITHOTRIPSY - Social History Smoking Status: Never Smoker - Medications Home Medications: Home Medications Medication Instructions Recorded Confirmed Last Taken Type AtorvaSTATin [Lipitor] 80 mg PO QHS #30 tablet 10/08/17 01/01/18 12/25/17 Rx 80 mg Epoetin Kelton 10,000 Unit [Procrit] 10,000 unit IV ARGENIS PRN vial 10/08/1712/31/17 Rx 10,000 unit /ml Allopurinol [Zyloprim] 100 mg PO QDAY MDD 100 mg 01/01/18 01/01/18 12/25/17 History 100 mg Apixaban [Eliquis] 5 mg PO BID MDD 10 mg 01/01/18 01/01/18 12/25/17 History 5 mg Cinacalcet HCl [Sensipar] 60 mg PO DAILY MDD 60 mg 01/01/18 01/01/18 12/31/17 History 60 mg Cinacalcet HCl [Sensipar] 60 mg PO DAILY MDD 60 mg 01/01/18 01/01/18 12/31/17 History 60 mg Lactulose 10 gm PO PRN MDD 10 gm 01/01/18 01/01/18 Unknown History Epoetin Kelton 10,000 Unit [Procrit] 10,000 unit IV ARGENIS PRN vial 01/05/18 Unknown Rx Famotidine [Pepcid] 10 mg PO DAILY #30 tablet 01/05/18 Unknown Rx Gabapentin [Neurontin] 300 mg PO BID #60 capsule 01/05/18 Unknown Rx ISOSORBIDE MONOnitrate [Imdur ER] 60 mg PO QDAY #30 tablet 01/05/18 Unknown Rx Insulin Regular, Human [HumuLIN R] 6 units SUB-Q ACHS #1 units 01/05/18 Unknown Rx Sevelamer Carbonate [Renvela] 1,600 mg PO TIDWM #90 tablet 01/05/18 Unknown Rx Valsartan [Diovan] 80 mg PO DAILY #30 tablet 01/05/18 Unknown Rx oxyCODONE /ACETAMINOPHEN [Percocet 1 tab PO Q6H PRN #50 tablet 01/05/18 Unknown Rx 5/325 mg] oxyCODONE /ACETAMINOPHEN [Percocet 1 tab PO Q6HR PRN #60 tablet 01/05/18 Unknown Rx 5/325 mg] ALBUTEROL Inhaler [ProAir HFA 2 puff IH QID PRN #1 inhalation 03/27/18 Unknown Rx Inhaler] Benzonatate [Tessalon Perles] 100 mg PO Q8HR PRN #20 capsule 03/27/18 Unknown Rx ED Physical Exam - General Limitations: No Limitations General appearance: alert, in no apparent distress - Head Head exam: Present: atraumatic, normocephalic - Eye Eye exam: Present: normal appearance, EOMI. Absent: nystagmus - ENT ENT exam: Present: normal exam, normal orophraynx, mucous membranes moist, normal external ear exam - Neck Neck exam: Present: normal inspection, full ROM - Respiratory Respiratory exam: Present: normal lung sounds bilaterally. Absent: respiratory distress - Cardiovascular Cardiovascular Exam: Present: regular rate, normal rhythm, normal heart sounds. Absent: systolic murmur, diastolic murmur, rubs, gallop - GI/Abdominal GI/Abdominal exam: Present: soft, normal bowel sounds. Absent: distended, tenderness, guarding, rebound, rigid - External exam: Present: erythema, swelling, other (on the left anterior labia majora, there is an area of induration, swelling, tenderness, with purulent discharge. There is no fluctuance. Escorted by nurse netta). Absent: normal external exam, bleeding - Extremities Exam Extremities exam: Present: normal inspection, other (left upper extremity AV fistula with no redness, pus or streaking.). Absent: tenderness, calf tenderness - Back Exam Back exam: Present: normal inspection, full ROM. Absent: paraspinal tenderness , vertebral tenderness - Neurological Exam Neurological exam: Present: alert, oriented X3, CN II-XII intact, other ( Extraocular movements intact. Tongue midline. No facial droop. Facial sensation intact to light touch in the V1, V2, V3 distribution bilaterally. 5 and 5 strength in 4 extremities.. Sensation is intact to light touch in 4 extremities.). Absent: motor sensory deficit - Psychiatric Psychiatric exam: Present: normal affect, normal mood - Skin Skin exam: Present: warm, dry, intact, normal color. Absent: rash ED Course Vital Signs 04/16/18 22:30 Temperature 98.7 F Pulse Rate 80 Blood Pressure 160/80 O2 Sat by Pulse 98 Oximetry ED Medical Decision Making - Lab Data Result diagrams: 04/16/18 23:09 04/16/18 23:09 - EKG Data -: EKG Interpreted by Wy EKG shows normal: sinus rhythm - EKG Data 04/17/18 01:06 Normal sinus, 65 bpm, left axis deviation, QTC prolonged, poor R-wave progression, left ventricular voltage, left ventricular hypertrophy, not a stemi - Radiology Data Radiology results: report reviewed, image reviewed Print Report Referring Physician: KEV ABRAMS Patient Name: SAMANTA CAMARENA Date of : 1950 Sex: Female Report Date: 2018-04-17 Report Status: Finalized Findings [facility] [address] [place] [address] Cat Scan Report Signed Patient: SAMANTA CAMARENA MR#: [id number] : 1950 Acct:[id number] Age/Sex: 67 / F ADM Date: 04/16/18 Loc: ED Attending Dr: Ordering Physician: KEV ABRAMS MD Date of Service: 04/16/18 Procedure(s): CT pelvis wo con Accession Number(s): [id number] cc: KEV ABRAMS MD FINAL REPORT PROCEDURE: CT PELVIS WO CON TECHNIQUE: Computerized axial tomography of the pelvis was performed without contrast material. HISTORY: vulvar abscess COMPARISON: No prior studies are available for comparison. TECHNICAL QUALITY: Satisfactory. FINDINGS: Imaged small and large intestine: Normal . Genitourinary system: Unremarkable. Lymph nodes/mesentery: Normal . Pelvic masses: None . Intraperitoneal fluid: None . Visualized portions of bilateral kidneys demonstrate parenchymal atrophy with multiple cystic lesions. Multiple nonobstructive calculi are noted in bilateral kidneys largest measuring 8 millimeters. There is diffusely increased bone density most likely representing renal osteodystrophy. Mild degree skin thickening with subcutaneous fat induration is noted involving the left medial inguinal region. IMPRESSION: Impression Increased bone density is consistent with renal osteodystrophy Atrophic kidneys Nonobstructive renal calculi Skin and subcutaneous fat induration involving the medial left inguinal region most likely represents inflammatory process. There is no definite evidence of any fluid collection at the present time on this noncontrast study. Ultrasound evaluation may be recommended. Transcribed By: [facility] [place] Dictated By: GERI ALEX Electronically Authenticated By: GERI ALEX Signed Date/Time: 04/17/18 0004 - Medical Decision Making Differential diagnosis, including but not limited to: Abscess, cellulitis, hyperkalemia Assessment and plan: 67-year-old female with labial cellulitis and induration, clinically appears to be consistent with small abscess, however CT scan does not demonstrate discrete fluid collection. Patient is very tender, and in my opinion will not achieve suitable anesthesia from local infiltration. Given her history of cardiac arrest and end-stage renal disease, patient is at very high risk for sedation. She is already draining, and is not systemically toxic appearing, so does not require emergent incision and drainage. She'll be given clindamycin and pain medicine. Case was discussed with Dr. Larsen, obstetrics station cleaning porter, who will follow in consultation. Patient also found to have hyperkalemia without hemolysis. Dr. Worrell recommended emergent dialysis, as well as dextrose insulin and calcium. He will follow in consultation. Case is presented to the Hospital physician, Dr. Bryant, accepted the patient to the medical service. Critical care attestation.: If time is entered above; I have spent that time in minutes in the direct care of this critically ill patient, excluding procedure time. ED Disposition Clinical Impression: Hyperkalemia, ESRD on dialysis, Vulvar abscess Disposition: OP ADMIT IP TO THIS HOSP Is pt being admited?: Yes Condition: Good
[2018-04-16] MEDS ORDERED: CLEOCIN 300 MG/50 mL 300 MG/50 ML BAG IV ONE (23:00)
[2018-04-16 23:31] LABS: Basophils % (Auto) 0.6 % (0.0-1.8); Eosinophils # (Auto) 0.2 K/mm3 (0.0-0.4); Eosinophils % (Auto) 3.1 % (0.0-4.3); Hematocrit 35.9 % (30.3-42.9); Hemoglobin 12.1 gm/dl (10.1-14.3); Lymphocytes # (Auto) 1.4 K/mm3 (1.2-5.4); Lymphocytes % (Auto) 18.4 % (13.4-35.0); Mean Corpuscular HGB Conc 34 % (30-34); Mean Corpuscular Hemoglobin 30 pg (28-32); Mean Corpuscular Volume 88 fl (79-97); Platelet Count 147 K/mm3 (140-440); Red Blood Count 4.09 M/mm3 (3.65-5.03)
[2018-04-16 23:46] LABS: Calcium 8.8 mg/dL (8.4-10.2)
[2018-04-16] MEDS ORDERED: HumuLIN R IV ONE (23:55)
[2018-04-16] MEDS ORDERED: D50W (25GM) Syringe IV ONE (23:55)
[2018-04-17 00:03] LABS: Red Cell Distribution Width 20.2 % (13.2-15.2)
--- NOTE | 2018-04-17 00:10 | Cat Scan Report ---
FINAL REPORT PROCEDURE: CT PELVIS WO CON TECHNIQUE: Computerized axial tomography of the pelvis was performed without contrast material. HISTORY: vulvar abscess COMPARISON: No prior studies are available for comparison. TECHNICAL QUALITY: Satisfactory. FINDINGS: Imaged small and large intestine: Normal . Genitourinary system: Unremarkable. Lymph nodes/mesentery: Normal . Pelvic masses: None . Intraperitoneal fluid: None . Visualized portions of bilateral kidneys demonstrate parenchymal atrophy with multiple cystic lesions. Multiple nonobstructive calculi are noted in bilateral kidneys largest measuring 8 millimeters. There is diffusely increased bone density most likely representing renal osteodystrophy. Mild degree skin thickening with subcutaneous fat induration is noted involving the left medial inguinal region. IMPRESSION: Impression Increased bone density is consistent with renal osteodystrophy Atrophic kidneys Nonobstructive renal calculi Skin and subcutaneous fat induration involving the medial left inguinal region most likely represents inflammatory process. There is no definite evidence of any fluid collection at the present time on this noncontrast study. Ultrasound evaluation may be recommended.
[2018-04-17] MEDS ORDERED: TYLENOL PO PRN (00:13)
[2018-04-17] MEDS ORDERED: D50W (25GM) Syringe IV PRN (00:13)
[2018-04-17] MEDS ORDERED: MORPHINE IV PRN (00:13)
[2018-04-17] MEDS ORDERED: SODIUM CHLORIDE FLUSH SYRINGE 10 ML IV PRN (00:13)
--- NOTE | 2018-04-17 00:14 | Consultation ---
Medications and Allergies Allergies Allergy/AdvReac Type Severity Reaction Status Date / Time aspirin AdvReac HEART Verified 01/23/17 16:26 FLUTTER Home Medications Medication Instructions Recorded Confirmed Last Taken Type AtorvaSTATin [Lipitor] 80 mg PO QHS #30 tablet 10/08/17 01/01/18 12/25/17 Rx 80 mg Epoetin Kelton 10,000 Unit [Procrit] 10,000 unit IV ARGENIS PRN vial 10/08/1712/31/17 Rx 10,000 unit /ml Allopurinol [Zyloprim] 100 mg PO QDAY MDD 100 mg 01/01/18 01/01/18 12/25/17 History 100 mg Apixaban [Eliquis] 5 mg PO BID MDD 10 mg 01/01/18 01/01/18 12/25/17 History 5 mg Cinacalcet HCl [Sensipar] 60 mg PO DAILY MDD 60 mg 01/01/18 01/01/18 12/31/17 History 60 mg Cinacalcet HCl [Sensipar] 60 mg PO DAILY MDD 60 mg 01/01/18 01/01/18 12/31/17 History 60 mg Lactulose 10 gm PO PRN MDD 10 gm 01/01/18 01/01/18 Unknown History Epoetin Kelton 10,000 Unit [Procrit] 10,000 unit IV ARGENIS PRN vial 01/05/18 Unknown Rx Famotidine [Pepcid] 10 mg PO DAILY #30 tablet 01/05/18 Unknown Rx Gabapentin [Neurontin] 300 mg PO BID #60 capsule 01/05/18 Unknown Rx ISOSORBIDE MONOnitrate [Imdur ER] 60 mg PO QDAY #30 tablet 01/05/18 Unknown Rx Insulin Regular, Human [HumuLIN R] 6 units SUB-Q ACHS #1 units 01/05/18 Unknown Rx Sevelamer Carbonate [Renvela] 1,600 mg PO TIDWM #90 tablet 01/05/18 Unknown Rx Valsartan [Diovan] 80 mg PO DAILY #30 tablet 01/05/18 Unknown Rx oxyCODONE /ACETAMINOPHEN [Percocet 1 tab PO Q6H PRN #50 tablet 01/05/18 Unknown Rx 5/325 mg] oxyCODONE /ACETAMINOPHEN [Percocet 1 tab PO Q6HR PRN #60 tablet 01/05/18 Unknown Rx 5/325 mg] ALBUTEROL Inhaler [ProAir HFA 2 puff IH QID PRN #1 inhalation 03/27/18 Unknown Rx Inhaler] Benzonatate [Tessalon Perles] 100 mg PO Q8HR PRN #20 capsule 03/27/18 Unknown Rx Active Meds: Active Medications Calcium Gluconate 1,000 mg/ (Sodium Chloride) 110 mls @ 660 mls/hr IV ONCE ONE Stop: 04/17/18 00:04 Exam - Vital Signs Vital signs: Vital Signs Temp Pulse BP Pulse Ox 98.7 F 80 160/80 98 04/16/18 22:30 04/16/18 22:30 04/16/18 22:30 04/16/18 22:30 Results - Lab Results 04/16/18 23:09 04/16/18 23:09 Most recent lab results Calcium 8.8 mg/dL (8.4-10.2) 04/16/18 23:09 Magnesium 2.40 mg/dL (1.7-2.3) H 04/16/18 23:09
[2018-04-17] MEDS ORDERED: NACL 0.9% 100 ML IV PRN ×2 (00:15→19:30)
--- NOTE | 2018-04-17 00:15 | Event Note ---
D/w Dr Gould, admitted with vulvar abscess, needing HD stat due to hyperkalemia , will order stat HD
[2018-04-17] MEDS ORDERED: CALCIUM GLUCONATE 1,000 MG in NACL 0.9% 100 ML IV ONE (01:00)
--- NOTE | 2018-04-17 01:34 | History and Physical Report ---
History of Present Illness Date of examination: 04/17/18 Date of admission: 04/17/18 00:13 Chief complaint: "I have an abscess that burst today" History of present illness: Mrs. Fuentes is a 67-year-old -[place]ir[place] female with history of diabetes type 2, hypertension, end-stage renal disease on hemodialysis, coronary artery disease was seen in the emergency room with complaints of pain in the left gentle area and history of abscesses that has burst today. She was also noted to have a potassium of 6.7. The genital area was very tender to palpation, BUTTON RECLAIMER was consulted the ED. Nephrology was also consulted and patient is scheduled for hemodialysis tonight due to hyperkalemia. Her last hemodialysis was on Saturday. He denies any fever or chills Past History Past Medical History: atrial fib (paroxysmal), CAD, diabetes, ESRD, hypertension Past Surgical History: appendectomy, cholecystectomy, hysterectomy Social history: no significant social history Family history: diabetes, hypertension Medications and Allergies Allergies Allergy/AdvReac Type Severity Reaction Status Date / Time aspirin AdvReac HEART Verified 01/23/17 16:26 FLUTTER Home Medications Medication Instructions Recorded Confirmed Last Taken Type AtorvaSTATin [Lipitor] 80 mg PO QHS #30 tablet 10/08/17 01/01/18 12/25/17 Rx 80 mg Epoetin Kelton 10,000 Unit [Procrit] 10,000 unit IV ARGENIS PRN vial 10/08/1712/31/17 Rx 10,000 unit /ml Allopurinol [Zyloprim] 100 mg PO QDAY MDD 100 mg 01/01/18 01/01/18 12/25/17 History 100 mg Apixaban [Eliquis] 5 mg PO BID MDD 10 mg 01/01/18 01/01/18 12/25/17 History 5 mg Cinacalcet HCl [Sensipar] 60 mg PO DAILY MDD 60 mg 01/01/18 01/01/18 12/31/17 History 60 mg Cinacalcet HCl [Sensipar] 60 mg PO DAILY MDD 60 mg 01/01/18 01/01/18 12/31/17 History 60 mg Lactulose 10 gm PO PRN MDD 10 gm 01/01/18 01/01/18 Unknown History Epoetin [place] 10,000 Unit [Procrit] 10,000 unit IV ARGENIS PRN vial 01/05/18 Unknown Rx Famotidine [Pepcid] 10 mg PO DAILY #30 tablet 01/05/18 Unknown Rx Gabapentin [Neurontin] 300 mg PO BID #60 capsule 01/05/18 Unknown Rx ISOSORBIDE MONOnitrate [Imdur ER] 60 mg PO QDAY #30 tablet 01/05/18 Unknown Rx Insulin Regular, Human [HumuLIN R] 6 units SUB-Q ACHS #1 units 01/05/18 Unknown Rx Sevelamer Carbonate [Renvela] 1,600 mg PO TIDWM #90 tablet 01/05/18 Unknown Rx Valsartan [Diovan] 80 mg PO DAILY #30 tablet 01/05/18 Unknown Rx oxyCODONE /ACETAMINOPHEN [Percocet 1 tab PO Q6H PRN #50 tablet 01/05/18 Unknown Rx 5/325 mg] oxyCODONE /ACETAMINOPHEN [Percocet 1 tab PO Q6HR PRN #60 tablet 01/05/18 Unknown Rx 5/325 mg] ALBUTEROL Inhaler [ProAir HFA 2 puff IH QID PRN #1 inhalation 03/27/18 Unknown Rx Inhaler] Benzonatate [Tessalon Perles] 100 mg PO Q8HR PRN #20 capsule 03/27/18 Unknown Rx Active Meds: Active Medications Acetaminophen (Tylenol) 650 mg PO Q4H PRN PRN Reason: Pain MILD(1-3)/Fever >100.5/AREVALO Dextrose (D50w (25gm) Syringe) 50 ml IV PRN PRN PRN Reason: Hypoglycemia Heparin Sodium (Porcine) (Heparin) 5,000 unit SUB-Q Q12HR [facility] Sodium Chloride (Nacl 0.9%) 100 mls @ 999 mls/hr IV ARGENIS PRN PRN Reason: Hypotension Clindamycin HCl (Cleocin 600 Mg/50 Ml) 600 mg in 50 mls @ 100 mls/hr IV Q8HR [facility]; Protocol Morphine Sulfate (Morphine) 2 mg IV Q4H PRN PRN Reason: Pain, Moderate (4-6) Ondansetron HCl (Zofran) 4 mg IV Q8H PRN PRN Reason: Nausea And Vomiting Sodium Chloride (Sodium Chloride Flush Syringe 10 Ml) 10 ml IV BID [facility] Sodium Chloride (Sodium Chloride Flush Syringe 10 Ml) 10 ml IV PRN PRN PRN Reason: LINE FLUSH Review of Systems Constitutional: no weight loss, no fever, no chills, no sweats, no fatigue, no weakness Ears, nose, mouth and throat: no ear pain, no sore throat, no headache, no vertigo Cardiovascular: no chest pain, no palpitations, no syncope, no lightheadedness, no shortness of breath Respiratory: no cough, no shortness of breath Gastrointestinal: no abdominal pain, no nausea, no vomiting, no diarrhea, no constipation, no melena Genitourinary Female: pelvic pain Menstruation: postmenopausal Rectal: no pain Musculoskeletal: no neck pain, no low back pain Integumentary: no rash Neurological: no seizures, no syncope Psychiatric: no anxiety, no depression Endocrine: no excessive thirst, no polydipsia, no polyuria Exam - Constitutional Vitals: Temp Pulse Resp BP Pulse Ox 98.7 F 80 160/80 98 04/16/18 22:30 04/16/18 22:30 04/16/18 22:30 04/16/18 22:30 General appearance: Present: no acute distress, well-nourished - EENT Eyes: Present: PERRL, EOM intact ENT: hearing intact - Neck Neck: Present: supple, normal ROM. Absent: masses or JVD, carotid bruits - Respiratory Respiratory effort: normal Respiratory: bilateral: CTA, negative: rales, rhonchi - Cardiovascular Rhythm: regular Heart Sounds: Present: S1 & S2 - Extremities Extremity abnormal: edema (trace bilateral leg edema) - Abdominal General gastrointestinal: Present: soft, non-tender. Absent: hepatomegaly, splenomegaly Female genitourinary: Present: deferred - Rectal Rectal Exam: deferred - Integumentary Integumentary: Present: clear - Musculoskeletal Musculoskeletal: strength equal bilaterally - Psychiatric Psychiatric: appropriate mood/affect - Neurologic Neurologic: no focal deficits, moves all extremities Results - Labs CBC & Chem 7: 04/16/18 23:09 04/16/18 23:09 Labs: Abnormal lab results 04/16/18 04/16/18 Range/Units 23:09 23:09 RDW 20.2 H (13.2-15.2) % [place] % (Auto) 13.0 H (0.0-7.3) % [place] # 1.0 H (0.0-0.8) K/mm3 Sodium 133 L (137-145) mmol/L Potassium 6.7 H* (3.6-5.0) mmol/L Chloride 92.7 L (98-107) mmol/L BUN 85 H (7-17) mg/dL Creatinine 9.1 H (0.7-1.2) mg/dL Magnesium 2.40 H (1.7-2.3) mg/dL Assessment and Plan - Patient Problems (1) Paroxysmal atrial fibrillation Current Visit: Yes Status: Chronic Plan to address problem: Heart rate is well controlled EKG shows a heart rate of 65 bpm, NSR with Q in lead 3 She is on Eliquis We will hold it in case BUTTON RECLAIMER decides to do an I&D of the vulvar abscess this morning (2) ESRD (end stage renal disease) on dialysis Current Visit: Yes Status: Chronic Plan to address problem: Patient is scheduled for emergency hemodialysis due to hyperkalemia Nephrology on board (3) Hyperkalemia Current Visit: Yes Status: Acute Plan to address problem: Secondary to end-stage renal disease Scheduled for hemodialysis (4) Vulvar abscess Current Visit: Yes Status: Acute Plan to address problem: We will keep her nothing by mouth in case BUTTON RECLAIMER decides to perform I and D Pain control Continue IV clindamycin (5) CAD (coronary artery disease) Current Visit: No Status: Acute Qualifiers: Associated angina: with angina and documented spasm Plan to address problem: Continue home medication (6) Hypertension Current Visit: No Status: Chronic Qualifiers: Hypertension type: essential hypertension Qualified Code(s): I10 - Essential (primary) hypertension Plan to address problem: Blood pressure is fair Will continue home medication (7) Type 2 diabetes mellitus Current Visit: No Status: Chronic Qualifiers: Diabetes mellitus prison insulin use: without prison use Diabetes mellitus complication status: with kidney complications Chronic kidney disease stage: on chronic dialysis Plan to address problem: Monitor blood sugars with insulin sliding scale coverage
[2018-04-17] MEDS ORDERED: HumuLIN R ONE (01:38)
[2018-04-17] MEDS ORDERED: D50W (25GM) Syringe IV ONE (01:40)
[2018-04-17] MEDS ORDERED: SUBLIMAZE ONE (01:41)
[2018-04-17] MEDS: CLEOCIN 600 MG/50 mL 600 MG/50 ML BAG IV SCH ×3 (06:59→22:07)
[2018-04-17] MEDS: RENVELA PO SCH ×4 (08:52→17:12)
--- NOTE | 2018-04-17 10:27 | Progress Note ---
Assessment and Plan - Vulvar abscess We will keep her nothing by mouth in case CLINICAL OPERATIONS SPECIALIST decides to perform I and D Pain control Continue IV clindamycin - Paroxysmal atrial fibrillation Heart rate is well controlled EKG shows a heart rate of 65 bpm, NSR with Q in lead 3 She is on Eliquis We will hold it in case CLINICAL OPERATIONS SPECIALIST decides to do an I&D of the vulvar abscess this morning - ESRD (end stage renal disease) on dialysis Patient is scheduled for emergency hemodialysis due to hyperkalemia Nephrology on board - Hyperkalemia Secondary to end-stage renal disease Scheduled for hemodialysis - Vulvar abscess NPO for possilbe I and D by CLINICAL OPERATIONS SPECIALIST Pain control Continue IV clindamycin - CAD (coronary artery disease) Associated angina: with angina and documented spasm Plan to address problem: Continue home medication - Hypertension Blood pressure is fair Will continue home medication - Type 2 diabetes mellitus Consistent carbohydrate diet Monitor blood sugars with insulin sliding scale coverage Subjective Date of service: 04/17/18 Principal diagnosis: Vulval abscess, defibrillation, Interval history: Patient seen and examined. Denies any fever. No nausea or vomiting. Discussed with nursing staff. No overnight events reported to me. Reviewed laboratory and radiological data. Objective - Exam Narrative Exam: Constitutional: Well-nourished well-developed. In no distress Head: Normocephalic atraumatic Eyes: Pupils are equal round and reactive to light Nose: No enlarged turbinates, no septal deviation. Mouth: Moist mucous membranes. Neck: Supple no thyromegaly. No bruit. No JVD Heart: Regular rate and rhythm, S1-S2 abnormal. No rubs murmurs or gallop Lungs: Clear to auscultation bilaterally no rales or rhonchi Abdomen: Soft, nontender. Bowel sound are present. Extremities: No edema no cyanosis and no clubbing. Neuro: Alert oriented Oriented x3. No focal sensory or motor deficit. Skin: No rashes no hyperemic spots Psychiatry: Euthymic. Calm. CLARY: Follow-up abscess. Not examined. - Constitutional Vitals: Vital Signs - 12hr 04/16/18 04/17/18 04/17/18 22:30 02:00 02:10 Temperature 98.7 F 98.4 F Pulse Rate 80 62 62 Respiratory 16 Rate Blood Pressure 160/80 135/60 135/60 O2 Sat by Pulse 98 Oximetry 04/17/18 04/17/18 04/17/18 02:15 02:30 02:45 Temperature Pulse Rate 62 64 62 Respiratory Rate Blood Pressure 135/60 108/57 131/65 O2 Sat by Pulse Oximetry 04/17/18 04/17/18 04/17/18 03:00 03:15 03:30 Temperature Pulse Rate 61 62 62 Respiratory Rate Blood Pressure 115/59 125/63 127/61 O2 Sat by Pulse Oximetry 04/17/18 04/17/18 04/17/18 03:45 04:00 04:15 Temperature Pulse Rate 60 60 63 Respiratory Rate Blood Pressure 145/69 116/63 132/68 O2 Sat by Pulse Oximetry 04/17/18 04/17/18 04/17/18 04:30 04:44 05:00 Temperature Pulse Rate 61 66 68 Respiratory Rate Blood Pressure 118/59 107/58 108/54 O2 Sat by Pulse Oximetry 04/17/18 04/17/18 04/17/18 05:10 05:15 05:33 Temperature 98.3 F Pulse Rate 62 70 62 Respiratory 16 Rate Blood Pressure 145/71 145/71 O2 Sat by Pulse Oximetry - Labs CBC & Chem 7: 04/16/18 23:09 04/16/18 23:09 Labs: Abnormal lab results 04/16/18 04/16/18 Range/Units 23:09 23:09 RDW 20.2 H (13.2-15.2) % [place] % (Auto) 13.0 H (0.0-7.3) % [place] # 1.0 H (0.0-0.8) K/mm3 Sodium 133 L (137-145) mmol/L Potassium 6.7 H* (3.6-5.0) mmol/L Chloride 92.7 L (98-107) mmol/L BUN 85 H (7-17) mg/dL Creatinine 9.1 H (0.7-1.2) mg/dL Magnesium 2.40 H (1.7-2.3) mg/dL
[2018-04-17] MEDS: HEPARIN SUB-Q SCH ×2 (10:55→22:08)
--- NOTE | 2018-04-17 15:10 | Consultation ---
History of Present Illness Consult date: 04/17/18 Reason for consult: pelvic infection History of present illness: 67y/o female who presents to the ED with complaint of ruptured labial abscess. The patient reports having active drainage of purulent material. She states her symptoms began approximately 3 days ago. Past History Past Medical History: hypertension, diabetes, renal disease, vascular disease Social history: lives with family Medications and Allergies Allergies Allergy/AdvReac Type Severity Reaction Status Date / Time aspirin AdvReac HEART Verified 01/23/17 16:26 FLUTTER Home Medications Medication Instructions Recorded Confirmed Last Taken Type AtorvaSTATin [Lipitor] 80 mg PO QHS #30 tablet 10/08/17 01/01/18 12/25/17 Rx 80 mg Epoetin Kelton 10,000 Unit [Procrit] 10,000 unit IV ARGENIS PRN vial 10/08/1712/31/17 Rx 10,000 unit /ml Allopurinol [Zyloprim] 100 mg PO QDAY MDD 100 mg 01/01/18 01/01/18 12/25/17 History 100 mg Apixaban [Eliquis] 5 mg PO BID MDD 10 mg 01/01/18 01/01/18 12/25/17 History 5 mg Cinacalcet HCl [Sensipar] 60 mg PO DAILY MDD 60 mg 01/01/18 01/01/18 12/31/17 History 60 mg Cinacalcet HCl [Sensipar] 60 mg PO DAILY MDD 60 mg 01/01/18 01/01/18 12/31/17 History 60 mg Lactulose 10 gm PO PRN MDD 10 gm 01/01/18 01/01/18 Unknown History Epoetin Kel[place] 10,000 Unit [Procrit] 10,000 unit IV ARGENIS PRN vial 01/05/18 Unknown Rx Famotidine [Pepcid] 10 mg PO DAILY #30 tablet 01/05/18 Unknown Rx Gabapentin [Neurontin] 300 mg PO BID #60 capsule 01/05/18 Unknown Rx ISOSORBIDE MONOnitrate [Imdur ER] 60 mg PO QDAY #30 tablet 01/05/18 Unknown Rx Insulin Regular, Human [HumuLIN R] 6 units SUB-Q ACHS #1 units 01/05/18 Unknown Rx Sevelamer Carbonate [Renvela] 1,600 mg PO TIDWM #90 tablet 01/05/18 Unknown Rx Valsartan [Diovan] 80 mg PO DAILY #30 tablet 01/05/18 Unknown Rx oxyCODONE /ACETAMINOPHEN [Percocet 1 tab PO Q6H PRN #50 tablet 01/05/18 Unknown Rx 5/325 mg] oxyCODONE /ACETAMINOPHEN [Percocet 1 tab PO Q6HR PRN #60 tablet 01/05/18 Unknown Rx 5/325 mg] ALBUTEROL Inhaler [ProAir HFA 2 puff IH QID PRN #1 inhalation 03/27/18 Unknown Rx Inhaler] Benzonatate [Tessalon Perles] 100 mg PO Q8HR PRN #20 capsule 03/27/18 Unknown Rx Active Meds: Active Medications Acetaminophen (Tylenol) 650 mg PO Q4H PRN PRN Reason: Pain MILD(1-3)/Fever >100.5/AREVALO Allopurinol (Zyloprim) 100 mg PO QDAY [facility] Atorvastatin Calcium (Lipitor) 80 mg PO QHS [facility] Dextrose (D50w (25gm) Syringe) 50 ml IV PRN PRN PRN Reason: Hypoglycemia Heparin Sodium (Porcine) (Heparin) 5,000 unit SUB-Q Q12HR [facility] Last Admin: 04/17/18 10:55 Dose: Not Given Sodium Chloride (Nacl 0.9%) 100 mls @ 999 mls/hr IV ARGENIS PRN PRN Reason: Hypotension Clindamycin HCl (Cleocin 600 Mg/50 Ml) 600 mg in 50 mls @ 100 mls/hr IV Q8HR [facility]; Protocol Last Admin: 04/17/18 06:59 Dose: 100 mls/hr Isosorbide Mononitrate (Imdur) 60 mg PO QDAY [facility] Morphine Sulfate (Morphine) 2 mg IV Q4H PRN PRN Reason: Pain, Moderate (4-6) Ondansetron HCl (Zofran) 4 mg IV Q8H PRN PRN Reason: Nausea And Vomiting Sevelamer Carbonate (Renvela) 1,600 mg PO TIDWM [facility] Last Admin: 04/17/18 09:30 Dose: Not Given Sodium Chloride (Sodium Chloride Flush Syringe 10 Ml) 10 ml IV BID [facility] Sodium Chloride (Sodium Chloride Flush Syringe 10 Ml) 10 ml IV PRN PRN PRN Reason: LINE FLUSH Review of Systems Genitourinary: other (vulvar pain) - Vital Signs Vital signs: Vital Signs Temp Pulse BP Pulse Ox 98.7 F 80 160/80 98 04/16/18 22:30 04/16/18 22:30 04/16/18 22:30 04/16/18 22:30 Temp Pulse Resp BP Pulse Ox 98.3 F 62 16 145/71 98 04/17/18 05:33 04/17/18 05:33 04/17/18 05:33 04/17/18 05:33 04/16/18 22:30 - Physical Exam Vulva: left: normal (vulvar tenderness with site of drainage; +induration) Results Result Diagrams: 04/16/18 23:09 04/16/18 23:09 Abnormal lab results 04/16/18 04/16/18 Range/Units 23:09 23:09 RDW 20.2 H (13.2-15.2) % [place] % (Auto) 13.0 H (0.0-7.3) % [place] # 1.0 H (0.0-0.8) K/mm3 Sodium 133 L (137-145) mmol/L Potassium 6.7 H* (3.6-5.0) mmol/L Chloride 92.7 L (98-107) mmol/L BUN 85 H (7-17) mg/dL Creatinine 9.1 H (0.7-1.2) mg/dL Magnesium 2.40 H (1.7-2.3) mg/dL All other labs normal. Assessment and Plan - Patient Problems (1) Vulvar abscess Current Visit: Yes Status: Acute Plan to address problem: will add IV Keflex to antibiotic regimen recommend a culture of site apply warm compress and wound care patient admits to significant decrease in size of lesion. recommend treatment with antibiotics and wound care secondary to site having spontaneous active drainage. If area does not improve, will consider incision and drainage at bedside
[2018-04-17] MEDS ORDERED: ceFAZolin 2 GM in NACL 0.9% 100 ML IV SCH (16:00)
--- NOTE | 2018-04-17 16:37 | Consultation ---
History of Present Illness - Reason for Consult Consult date: 04/17/18 end stage renal disease, hyperkalemia - History of Present Illness Mrs. Fuentes is a pleasant 67yo female with ESRD on HD who presented to the ED with nontraumatic painful swelling of her left anterior labia due to abscess which had been draining. She denies fever, chills. Labs at admission were notable for K 6.7. She was admitted for further management. STAT HD ordered overnight. At present, she has no complaints. Past History Past Medical History: atrial fib (paroxysmal), CAD, diabetes, ESRD, hypertension Past Surgical History: appendectomy, cholecystectomy, hysterectomy Social history: lives with family Family history: diabetes, hypertension Medications and Allergies Allergies Allergy/AdvReac Type Severity Reaction Status Date / Time aspirin AdvReac HEART Verified 01/23/17 16:26 FLUTTER Home Medications Medication Instructions Recorded Confirmed Last Taken Type AtorvaSTATin [Lipitor] 80 mg PO QHS #30 tablet 10/08/17 01/01/18 12/25/17 Rx 80 mg Epoetin Kel[place] 10,000 Unit [Procrit] 10,000 unit IV ARGENIS PRN vial 10/08/1712/31/17 Rx 10,000 unit /ml Allopurinol [Zyloprim] 100 mg PO QDAY MDD 100 mg 01/01/18 01/01/18 12/25/17 History 100 mg Apixaban [Eliquis] 5 mg PO BID MDD 10 mg 01/01/18 01/01/18 12/25/17 History 5 mg Cinacalcet HCl [Sensipar] 60 mg PO DAILY MDD 60 mg 01/01/18 01/01/18 12/31/17 History 60 mg Cinacalcet HCl [Sensipar] 60 mg PO DAILY MDD 60 mg 01/01/18 01/01/18 12/31/17 History 60 mg Lactulose 10 gm PO PRN MDD 10 gm 01/01/18 01/01/18 Unknown History Epoetin [place] 10,000 Unit [Procrit] 10,000 unit IV ARGENIS PRN vial 01/05/18 Unknown Rx Famotidine [Pepcid] 10 mg PO DAILY #30 tablet 01/05/18 Unknown Rx Gabapentin [Neurontin] 300 mg PO BID #60 capsule 01/05/18 Unknown Rx ISOSORBIDE MONOnitrate [Imdur ER] 60 mg PO QDAY #30 tablet 01/05/18 Unknown Rx Insulin Regular, Human [HumuLIN R] 6 units SUB-Q ACHS #1 units 01/05/18 Unknown Rx Sevelamer Carbonate [Renvela] 1,600 mg PO TIDWM #90 tablet 01/05/18 Unknown Rx Valsartan [Diovan] 80 mg PO DAILY #30 tablet 01/05/18 Unknown Rx oxyCODONE /ACETAMINOPHEN [Percocet 1 tab PO Q6H PRN #50 tablet 01/05/18 Unknown Rx 5/325 mg] oxyCODONE /ACETAMINOPHEN [Percocet 1 tab PO Q6HR PRN #60 tablet 01/05/18 Unknown Rx 5/325 mg] ALBUTEROL Inhaler [ProAir HFA 2 puff IH QID PRN #1 inhalation 03/27/18 Unknown Rx Inhaler] Benzonatate [Tessalon Perles] 100 mg PO Q8HR PRN #20 capsule 03/27/18 Unknown Rx Active Meds: Active Medications Acetaminophen (Tylenol) 650 mg PO Q4H PRN PRN Reason: Pain MILD(1-3)/Fever >100.5/AREVALO Allopurinol (Zyloprim) 100 mg PO QDAY [facility] Atorvastatin Calcium (Lipitor) 80 mg PO QHS [facility] Dextrose (D50w (25gm) Syringe) 50 ml IV PRN PRN PRN Reason: Hypoglycemia Heparin Sodium (Porcine) (Heparin) 5,000 unit SUB-Q Q12HR [facility] Last Admin: 04/17/18 10:55 Dose: Not Given Sodium Chloride (Nacl 0.9%) 100 mls @ 999 mls/hr IV ARGENIS PRN PRN Reason: Hypotension Clindamycin HCl (Cleocin 600 Mg/50 Ml) 600 mg in 50 mls @ 100 mls/hr IV Q8HR [facility]; Protocol Last Admin: 04/17/18 14:26 Dose: 100 mls/hr Cefazolin Sodium 2 gm/ Sodium (Chloride) 100 mls @ 200 mls/hr IV Q8HR [facility] Isosorbide Mononitrate (Imdur) 60 mg PO QDAY [facility] Morphine Sulfate (Morphine) 2 mg IV Q4H PRN PRN Reason: Pain, Moderate (4-6) Ondansetron HCl (Zofran) 4 mg IV Q8H PRN PRN Reason: Nausea And Vomiting Sevelamer Carbonate (Renvela) 1,600 mg PO TIDWM [facility] Last Admin: 04/17/18 09:30 Dose: Not Given Sodium Chloride (Sodium Chloride Flush Syringe 10 Ml) 10 ml IV BID [facility] Sodium Chloride (Sodium Chloride Flush Syringe 10 Ml) 10 ml IV PRN PRN PRN Reason: LINE FLUSH Review of Systems All systems: negative Exam - Vital Signs Vital signs: Vital Signs Temp Pulse BP Pulse Ox 98.7 F 80 160/80 98 04/16/18 22:30 04/16/18 22:30 04/16/18 22:30 04/16/18 22:30 - General Appearance General appearance: well-developed, well-nourished EENT: ATNC Respiratory: Clear to Ascultation Heart: regular, S1S2 Gastrointestinal: Present: obese. Absent: tenderness, distended Integumentary: no rash, warm and dry Neurologic: no focal deficit, alert and oriented x3 Musculoskeletal: Present: other (trace edema) Psychiatric: cooperative Results - Lab Results 04/16/18 23:09 04/16/18 23:09 Most recent lab results Calcium 8.8 mg/dL (8.4-10.2) 04/16/18 23:09 Magnesium 2.40 mg/dL (1.7-2.3) H 04/16/18 23:09 Assessment and Plan Impression: * End stage renal disease on HD * Hyperkalemia * Labial abscess * Atrial fibrillation on chronic anticoagulation * Hx of CAD s/p PCI to LAD * Hx of Vfib arrest * Anemia secondary to ESRD * Secondary hyperparathryoidism Plan: * Patient is s/p HD today * Continue HD TTS * UF as tolerated * Abx per primary team/ObGyn * Epogen TIW prn * Renal diet
[2018-04-17] MEDS: IMDUR PO SCH (17:07)
[2018-04-17] MEDS: ZYLOPRIM PO SCH (17:07)
[2018-04-17] MEDS: SODIUM CHLORIDE FLUSH SYRINGE 10 ML IV SCH ×2 (17:12→22:08)
[2018-04-17] MEDS ORDERED: HEPARIN 10,000 UNITS/10 ML IV PRN (19:30)
[2018-04-17] MEDS: ANCEF/STERILE WATER 2 GM/20 ML 2 GM/20 ML SYRINGE IV SCH ×2 (20:05→22:07)
[2018-04-18 06:01] LABS: Calcium 8.6 mg/dL (8.4-10.2)
[2018-04-18] MEDS: ANCEF/STERILE WATER 2 GM/20 ML 2 GM/20 ML SYRINGE IV SCH ×4 (06:57→22:00)
[2018-04-18] MEDS: CLEOCIN 600 MG/50 mL 600 MG/50 ML BAG IV SCH ×4 (07:03→22:00)
[2018-04-18] MEDS ORDERED: KIONEX PO ONE (07:52)
[2018-04-18] MEDS: RENVELA PO SCH ×4 (08:53→19:00)
[2018-04-18] MEDS: ZOFRAN IV PRN (08:55)
[2018-04-18] MEDS: SODIUM CHLORIDE FLUSH SYRINGE 10 ML IV SCH ×2 (09:10→21:44)
[2018-04-18] MEDS: ZYLOPRIM PO SCH (09:10)
[2018-04-18] MEDS: IMDUR PO SCH (09:10)
[2018-04-18] MEDS: HEPARIN SUB-Q SCH ×2 (09:11→21:44)
--- NOTE | 2018-04-18 09:43 | Progress Note ---
Assessment and Plan Assessment and plan: --Hyperkalemia; Management per nephrology Patient case of end-stage renal disease on hemodialysis, closely monitor electrolytes --Paroxysmal atrial fibrillation; now rate controlled Continue beta blockers, chronic anticoagulation with Eliquis --End-stage renal disease on hemodialysis; nephrology following, HD per schedule --Vulval Abscess: CORONER'S JUROR following, new current antibiotics, supportive care --History of coronary artery disease; Continue current cardiac medications --Type 2 diabetes mellitus; Accu-Chek,SSC and ADA diet and insulin as tolerated. --DVT prophylaxis heparin renal dose Closely monitor the patient and adjust management as needed Plan of care reviewed with the patient and her History Interval history: Sincerely and examined medical records reviewed Patient feels slightly better, cellulitis and abscess slightly improved CORONER'S JUROR following Alert awake Oriented 3 not in acute distress Vital signs reviewed Hospitalist Physical - Constitutional Vitals: Temp Pulse Resp BP Pulse Ox 98.1 F 74 16 135/59 97 04/18/18 07:39 04/18/18 07:39 04/18/18 07:39 04/18/18 09:10 04/18/18 08:42 General appearance: Present: no acute distress, well-nourished, obese - EENT Eyes: Present: PERRL, EOM intact - Neck Neck: Present: supple, normal ROM - Respiratory Respiratory effort: normal Respiratory: bilateral: diminished, rales, negative: rhonchi, wheezing - Cardiovascular Rhythm: regular Heart Sounds: Present: S1 & S2 - Extremities Extremities: no ischemia, No edema - Abdominal General gastrointestinal: soft, non-tender, non-distended, normal bowel sounds - Integumentary Integumentary: Present: clear, warm - Psychiatric Psychiatric: appropriate mood/affect, cooperative - Neurologic Neurologic: CNII-XII intact, moves all extremities Results - Labs CBC & Chem 7: 04/16/18 23:09 04/18/18 05:07 Labs: Laboratory Last Values WBC 7.8 K/mm3 (4.5-11.0) 04/16/18 23:09 RBC 4.09 M/mm3 (3.65-5.03) 04/16/18 23:09 Hgb 12.1 gm/dl (10.1-14.3) 04/16/18 23:09 Hct 35.9 % (30.3-42.9) 04/16/18 23:09 MCV 88 fl (79-97) 04/16/18 23:09 MCH 30 pg (28-32) 04/16/18 23:09 MCHC 34 % (30-34) 04/16/18 23:09 RDW 20.2 % (13.2-15.2) H 04/16/18 23:09 Plt Count 147 K/mm3 (140-440) 04/16/18 23:09 Lymph % (Auto) 18.4 % (13.4-35.0) 04/16/18 23:09 [place] % (Auto) 13.0 % (0.0-7.3) H 04/16/18 23:09 Eos % (Auto) 3.1 % (0.0-4.3) 04/16/18 23:09 Baso % (Auto) 0.6 % (0.0-1.8) 04/16/18 23:09 Lymph # 1.4 K/mm3 (1.2-5.4) 04/16/18 23:09 [place] # 1.0 K/mm3 (0.0-0.8) H 04/16/18 23:09 Eos # 0.2 K/mm3 (0.0-0.4) 04/16/18 23:09 Baso # 0.0 K/mm3 (0.0-0.1) 04/16/18 23:09 Seg Neutrophils % 64.9 % (40.0-70.0) 04/16/18 23:09 Seg Neutrophils # 5.1 K/mm3 (1.8-7.7) 04/16/18 23:09 Sodium 134 mmol/L (137-145) L 04/18/18 05:07 Potassium 6.3 mmol/L (3.6-5.0) H* 04/18/18 05:07 Chloride 93.6 mmol/L (98-107) L 04/18/18 05:07 Carbon Dioxide 22 mmol/L (22-30) 04/18/18 05:07 Anion Gap 25 mmol/L 04/18/18 05:07 BUN 61 mg/dL (7-17) H 04/18/18 05:07 Creatinine 7.7 mg/dL (0.7-1.2) H 04/18/18 05:07 Estimated GFR 6 ml/min 04/18/18 05:07 BUN/Creatinine Ratio 8 % 04/18/18 05:07 Glucose 83 mg/dL (65-100) 04/18/18 05:07 POC Glucose 71 (70-105) 04/18/18 07:20 Lactic Acid 1.00 mmol/L (0.7-2.0) 04/16/18 23:09 Calcium 8.6 mg/dL (8.4-10.2) 04/18/18 05:07 Magnesium 2.40 mg/dL (1.7-2.3) H 04/16/18 23:09 Total Creatine Kinase 45 units/L (30-135) 04/16/18 23:09
[2018-04-18] MEDS ORDERED: NACL 0.9% 100 ML IV PRN (10:30)
--- NOTE | 2018-04-18 16:08 | Progress Note ---
Assessment and Plan Impression: * End stage renal disease on HD * Hyperkalemia * Labial abscess * Atrial fibrillation on chronic anticoagulation * Hx of CAD s/p PCI to LAD * Hx of Vfib arrest * Anemia secondary to ESRD * Secondary hyperparathryoidism Plan: * Patient is s/p dialysis on AM. However, K elevated again this AM. Additional treatment ordered for today. Repeat BMP in AM - if K remains elevated, will consult IR for fistulogram * Continue HD TTS schedule * UF as tolerated * Abx per primary team/ObGyn * Epogen TIW prn * Renal diet Subjective Date of service: 04/18/18 Principal diagnosis: Vulval abscess, defibrillation, Interval history: Patient has no complaints today. Objective - Vital Signs Vital signs: Vital Signs - 12hr 04/18/18 04/18/18 04/18/18 04:43 07:39 08:42 Temperature 98.4 F 98.1 F Pulse Rate 76 74 Respiratory 20 16 Rate Blood Pressure 129/60 135/59 O2 Sat by Pulse 97 94 97 Oximetry 04/18/18 04/18/18 04/18/18 09:10 12:00 12:15 Temperature 98.3 F Pulse Rate 76 73 Respiratory 18 Rate Blood Pressure 135/59 141/62 143/63 O2 Sat by Pulse Oximetry 04/18/18 04/18/18 04/18/18 12:30 12:45 13:00 Temperature Pulse Rate 76 78 81 Respiratory Rate Blood Pressure 129/64 127/58 126/60 O2 Sat by Pulse Oximetry 04/18/18 04/18/18 04/18/18 13:15 13:30 13:45 Temperature Pulse Rate 84 84 90 Respiratory Rate Blood Pressure 131/59 130/61 132/56 O2 Sat by Pulse Oximetry 04/18/18 04/18/18 14:00 14:15 Temperature Pulse Rate 85 83 Respiratory Rate Blood Pressure 126/58 133/61 O2 Sat by Pulse Oximetry - General Appearance General appearance: well-developed, well-nourished EENT: ATNC Neck: no JVD Respiratory: Present: Clear to Ascultation Cardiology: regular, S1S2 Gastrointestinal: no tenderness, no distended, obese Integumentary: cool/clammy Neurologic: alert and oriented x3 Musculoskeletal: other (no edema) Psychiatric: cooperative - Lab 04/16/18 23:09 04/18/18 05:07 Most recent lab results Calcium 8.6 mg/dL (8.4-10.2) 04/18/18 05:07 Magnesium 2.40 mg/dL (1.7-2.3) H 04/16/18 23:09
[2018-04-18] MEDS: HEPARIN 10,000 UNITS/10 ML IV PRN (17:00)
--- NOTE | 2018-04-18 18:39 | Progress Note ---
Assessment and Plan A: Left Vulvar Abscess Multiple Medical Comorbidities P: Continue IV antibiotics, pain medication and wound care. Await culture results. Subjective - Subjective Date of service: 04/18/18 Principal diagnosis: Vulval abscess, Multiple comorbidities Interval history: Pt reports drainage from the abscess, and reports less pressure than yesterday. Objective - Vital Signs Latest vital signs: Vital Signs Temp Pulse Resp BP Pulse Ox 04/18/18 16:13 98.3 F 86 16 135/70 94 04/18/18 15:45 98.2 F 86 20 149/67 04/18/18 15:30 86 124/57 04/18/18 15:15 86 131/60 04/18/18 15:00 83 129/51 04/18/18 14:45 85 120/61 04/18/18 14:30 87 131/64 04/18/18 14:15 83 133/61 04/18/18 14:00 85 126/58 04/18/18 13:45 90 132/56 04/18/18 13:30 84 130/61 04/18/18 13:15 84 131/59 04/18/18 13:00 81 126/60 04/18/18 12:45 78 127/58 04/18/18 12:30 76 129/64 04/18/18 12:15 73 143/63 04/18/18 12:00 98.3 F 76 18 141/62 04/18/18 09:10 135/59 04/18/18 08:42 97 04/18/18 07:39 98.1 F 74 16 135/59 94 04/18/18 04:43 98.4 F 76 20 129/60 97 04/18/18 01:39 98.2 F 78 18 123/59 95 04/17/18 21:11 98.8 F 79 18 114/59 96 04/17/18 19:45 80 Intake and Output 04/18/18 04/18/18 04/18/18 06:59 14:59 22:59 Intake Total 120 Balance 120 Intake: Oral 120 Other: Total, Intake Amount 120 # Voids Void 2 # Bowel Movements 1 - Exam Breasts: Present: deferred Vulva: left: ulceration (left vulvar abscess draining purulent fluid, ~1 cm) - Labs Labs: Abnormal lab results 04/18/18 04/18/18 Range/Units 05:07 16:22 Sodium 134 L (137-145) mmol/L Potassium 6.3 H* (3.6-5.0) mmol/L Chloride 93.6 L (98-107) mmol/L BUN 61 H (7-17) mg/dL Creatinine 7.7 H (0.7-1.2) mg/dL POC Glucose 117 H (70-105)
[2018-04-19 05:29] LABS: Calcium 9.8 mg/dL (8.4-10.2)
[2018-04-19] MEDS: ANCEF/STERILE WATER 2 GM/20 ML 2 GM/20 ML SYRINGE IV SCH ×2 (06:32→14:00)
[2018-04-19] MEDS: CLEOCIN 600 MG/50 mL 600 MG/50 ML BAG IV SCH ×2 (06:32→20:12)
--- NOTE | 2018-04-19 10:58 | Progress Note ---
Assessment and Plan Impression: * End stage renal disease on HD * Hyperkalemia * Labial abscess * Atrial fibrillation on chronic anticoagulation * Hx of CAD s/p PCI to LAD * Hx of Vfib arrest * Anemia secondary to ESRD * Secondary hyperparathryoidism Plan: * Patient is s/p hemodialysis yesterday * Continue HD TTS schedule - HD today * UF as tolerated * Abx per primary team/ObGyn * Epogen TIW prn * Renal diet Subjective Date of service: 04/19/18 Principal diagnosis: Vulval abscess, defibrillation, Interval history: Patient has no complaints today Objective - Vital Signs Vital signs: Vital Signs - 12hr 04/18/18 04/19/18 04/19/18 23:38 05:19 07:06 Temperature 98.9 F 98.5 F Pulse Rate 80 75 75 Respiratory 18 18 Rate Blood Pressure 135/56 145/59 O2 Sat by Pulse 95 95 Oximetry 04/19/18 08:30 Temperature 99.1 F Pulse Rate 80 Respiratory 20 Rate Blood Pressure 152/67 O2 Sat by Pulse 93 Oximetry - General Appearance General appearance: well-developed, well-nourished EENT: ATNC Respiratory: Present: Clear to Ascultation Cardiology: regular, S1S2 Gastrointestinal: normal, no tenderness, no distended, obese Integumentary: warm and dry Neurologic: no focal deficit, alert and oriented x3 Musculoskeletal: other (no edema) Psychiatric: cooperative - Lab 04/16/18 23:09 04/19/18 04:19 Most recent lab results Calcium 9.8 mg/dL (8.4-10.2) 04/19/18 04:19 Magnesium 2.40 mg/dL (1.7-2.3) H 04/16/18 23:09
[2018-04-19] MEDS: RENVELA PO SCH ×3 (11:27→17:00)
[2018-04-19] MEDS: IMDUR PO SCH (11:27)
[2018-04-19] MEDS: HEPARIN SUB-Q SCH ×2 (11:28→21:15)
[2018-04-19] MEDS: ZYLOPRIM PO SCH (11:29)
--- NOTE | 2018-04-19 13:36 | Progress Note ---
Assessment and Plan Assessment and plan: --Hyperkalemia; corrected Continue HD per schedule, closely monitor electrolytes --Vulval Abscess:COMBINATION WELDER APPRENTICE following, continue current antibiotics, supportive care --Positive wound cultures gram-negative rods Continue current antibiotics, follow sensitivities --Paroxysmal atrial fibrillation; now rate controlled Continue beta blockers, chronic anticoagulation with Eliquis --End-stage renal disease on hemodialysis; nephrology following, HD per schedule --History of coronary artery disease; Continue current cardiac medications --Type 2 diabetes mellitus; Accu-Chek,SSC and ADA diet and insulin as tolerated. --DVT prophylaxis heparin renal dose Closely monitor the patient and adjust management as needed Plan of care reviewed with the patient and her History Interval history: Patient seen and examined medical records reviewed No new events reported by the nursing staff, Patient is scheduled for hemodialysis today on IV antibiotics for her multiple abscesses, recommended by COMBINATION WELDER APPRENTICE Alert awake oriented 3, Vital signs reviewed stable Hospitalist Physical - Constitutional Vitals: Temp Pulse Resp BP Pulse Ox 99.1 F 80 20 152/67 93 04/19/18 08:30 04/19/18 08:30 04/19/18 08:30 04/19/18 08:30 04/19/18 08:30 General appearance: Present: no acute distress, well-nourished, obese - EENT Eyes: Present: PERRL, EOM intact - Neck Neck: Present: supple, normal ROM - Respiratory Respiratory effort: normal Respiratory: bilateral: diminished, negative: rales, rhonchi, wheezing - Cardiovascular Rhythm: regular Heart Sounds: Present: S1 & S2 - Extremities Extremities: no ischemia, No edema Peripheral Pulses: within normal limits - Abdominal General gastrointestinal: soft, non-tender, non-distended, normal bowel sounds - Integumentary Integumentary: Present: clear, warm - Psychiatric Psychiatric: appropriate mood/affect, cooperative - Neurologic Neurologic: CNII-XII intact, moves all extremities Results - Labs CBC & Chem 7: 04/16/18 23:09 04/19/18 04:19 Labs: Laboratory Last Values WBC 7.8 K/mm3 (4.5-11.0) 04/16/18 23:09 RBC 4.09 M/mm3 (3.65-5.03) 04/16/18 23:09 Hgb 12.1 gm/dl (10.1-14.3) 04/16/18 23:09 Hct 35.9 % (30.3-42.9) 04/16/18 23:09 MCV 88 fl (79-97) 04/16/18 23:09 MCH 30 pg (28-32) 04/16/18 23:09 MCHC 34 % (30-34) 04/16/18 23:09 RDW 20.2 % (13.2-15.2) H 04/16/18 23:09 Plt Count 147 K/mm3 (140-440) 04/16/18 23:09 Lymph % (Auto) 18.4 % (13.4-35.0) 04/16/18 23:09 [place] % (Auto) 13.0 % (0.0-7.3) H 04/16/18 23:09 Eos % (Auto) 3.1 % (0.0-4.3) 04/16/18 23:09 Baso % (Auto) 0.6 % (0.0-1.8) 04/16/18 23:09 Lymph # 1.4 K/mm3 (1.2-5.4) 04/16/18 23:09 [place] # 1.0 K/mm3 (0.0-0.8) H 04/16/18 23:09 Eos # 0.2 K/mm3 (0.0-0.4) 04/16/18 23:09 Baso # 0.0 K/mm3 (0.0-0.1) 04/16/18 23:09 Seg Neutrophils % 64.9 % (40.0-70.0) 04/16/18 23:09 Seg Neutrophils # 5.1 K/mm3 (1.8-7.7) 04/16/18 23:09 Sodium 136 mmol/L (137-145) L 04/19/18 04:19 Potassium 4.8 mmol/L (3.6-5.0) D 04/19/18 04:19 Chloride 91.6 mmol/L (98-107) L 04/19/18 04:19 Carbon Dioxide 27 mmol/L (22-30) 04/19/18 04:19 Anion Gap 22 mmol/L 04/19/18 04:19 BUN 34 mg/dL (7-17) H 04/19/18 04:19 Creatinine 5.2 mg/dL (0.7-1.2) H 04/19/18 04:19 Estimated GFR 10 ml/min 04/19/18 04:19 BUN/Creatinine Ratio 7 % 04/19/18 04:19 Glucose 92 mg/dL (65-100) 04/19/18 04:19 POC Glucose 123 (70-105) H 04/19/18 11:56 Lactic Acid 1.00 mmol/L (0.7-2.0) 04/16/18 23:09 Calcium 9.8 mg/dL (8.4-10.2) 04/19/18 04:19 Magnesium 2.40 mg/dL (1.7-2.3) H 04/16/18 23:09 Total Creatine Kinase 45 units/L (30-135) 04/16/18 23:09
[2018-04-19] MEDS: CLEOCIN PO SCH ×2 (14:00→21:16)
[2018-04-19] MEDS ORDERED: CLEOCIN PO SCH (14:00)
[2018-04-19] MEDS ORDERED: NACL 0.9 (PRIMING MACHINE ONLY DIALYSIS) MC ONE (17:22)
[2018-04-19] MEDS: HEPARIN 10,000 UNITS/10 ML IV PRN (19:04)
[2018-04-19] MEDS: SODIUM CHLORIDE FLUSH SYRINGE 10 ML IV SCH ×2 (20:11→23:40)
[2018-04-20] MEDS: ANCEF/STERILE WATER 2 GM/20 ML 2 GM/20 ML SYRINGE IV SCH ×2 (00:33→05:58)
[2018-04-20] MEDS: CLEOCIN PO SCH ×3 (05:58→21:41)
[2018-04-20 06:15] LABS: Calcium 9.8 mg/dL (8.4-10.2)
[2018-04-20] MEDS: ZOFRAN IV PRN (06:49)
[2018-04-20] MEDS: RENVELA PO SCH ×3 (08:00→18:26)
--- NOTE | 2018-04-20 09:56 | Progress Note ---
Assessment and Plan Impression: * End stage renal disease on HD * Hyperkalemia - resolved * Labial abscess- polymicrobial: ecoli/GNR1/GNR2 * Atrial fibrillation on chronic anticoagulation * Anemia secondary to ESRD * Secondary hyperparathryoidism * Hx of CAD s/p PCI to LAD * Hx of Vfib arrest Plan: * Continue HD TTS schedule - no acute need for HD today * UF as tolerated * ID/sens pending - abx per primary team/student worker * Epogen TIW prn * Renal diet * Son updated via phone Subjective Date of service: 04/20/18 Principal diagnosis: Vulval abscess, defibrillation, Interval history: Patient has no complaints Objective - Vital Signs Vital signs: Vital Signs - 12hr 04/19/18 04/19/18 04/20/18 23:00 23:33 06:03 Temperature 98.9 F 98.3 F Pulse Rate 90 81 76 Respiratory 20 18 Rate Blood Pressure 126/52 168/67 O2 Sat by Pulse 93 99 Oximetry - General Appearance General appearance: well-developed, well-nourished EENT: ATNC Respiratory: Present: Clear to Ascultation Cardiology: regular, S1S2 Gastrointestinal: normal, no tenderness, no distended, obese Integumentary: no rash, warm and dry Neurologic: alert and oriented x3 Musculoskeletal: other (no edema) Psychiatric: cooperative - Lab 04/16/18 23:09 04/20/18 04:50 Most recent lab results Calcium 9.8 mg/dL (8.4-10.2) 04/20/18 04:50 Magnesium 2.40 mg/dL (1.7-2.3) H 04/16/18 23:09
--- NOTE | 2018-04-20 11:30 | Progress Note ---
Assessment and Plan Assessment and plan: --Hyperkalemia; corrected Continue HD per schedule, closely monitor electrolytes --Vulval Abscess:CREAM BEATER following, Add Levaquin, DC cefazolin --Positive wound cultures gram-negative rods Sensitive to Levaquin --Paroxysmal atrial fibrillation; now rate controlled Continue beta blockers, chronic anticoagulation with Eliquis --End-stage renal disease on hemodialysis; nephrology following, HD per schedule --History of coronary artery disease; Continue current cardiac medications --Type 2 diabetes mellitus; Accu-Chek,SSC and ADA diet and insulin as tolerated. --DVT prophylaxis heparin renal dose Closely monitor the patient and adjust management as needed Plan of care reviewed with the patient and her Possible discharge home on oral antibiotics tomorrow after hemodialysis History Interval history: Patient seen and examined medical records reviewed Patient feels slightly better no new complaints Positive wound cultures reviewed, change antibiotic to by mouth Levaquin Alert awake oriented 3 not in acute distress Vital signs reviewed Hospitalist Physical - Constitutional Vitals: Temp Pulse Resp BP Pulse Ox 98.6 F 85 18 143/47 95 04/20/18 09:36 04/20/18 09:36 04/20/18 09:36 04/20/18 09:36 04/20/18 09:36 General appearance: Present: no acute distress, well-nourished, obese - EENT Eyes: Present: PERRL - Neck Neck: Present: supple, normal ROM - Respiratory Respiratory effort: normal Respiratory: negative: rales, rhonchi, wheezing - Cardiovascular Rhythm: regular Heart Sounds: Present: S1 & S2 - Extremities Extremities: no ischemia, No edema - Abdominal General gastrointestinal: soft, non-tender, non-distended, normal bowel sounds - Integumentary Integumentary: Present: clear, warm - Psychiatric Psychiatric: appropriate mood/affect, cooperative - Neurologic Neurologic: CNII-XII intact, moves all extremities Results - Labs CBC & Chem 7: 04/16/18 23:09 04/20/18 04:50 Labs: Laboratory Last Values WBC 7.8 K/mm3 (4.5-11.0) 04/16/18 23:09 RBC 4.09 M/mm3 (3.65-5.03) 04/16/18 23:09 Hgb 12.1 gm/dl (10.1-14.3) 04/16/18 23:09 Hct 35.9 % (30.3-42.9) 04/16/18 23:09 MCV 88 fl (79-97) 04/16/18 23:09 MCH 30 pg (28-32) 04/16/18 23:09 MCHC 34 % (30-34) 04/16/18 23:09 RDW 20.2 % (13.2-15.2) H 04/16/18 23:09 Plt Count 147 K/mm3 (140-440) 04/16/18 23:09 Lymph % (Auto) 18.4 % (13.4-35.0) 04/16/18 23:09 [place] % (Auto) 13.0 % (0.0-7.3) H 04/16/18 23:09 Eos % (Auto) 3.1 % (0.0-4.3) 04/16/18 23:09 Baso % (Auto) 0.6 % (0.0-1.8) 04/16/18 23:09 Lymph # 1.4 K/mm3 (1.2-5.4) 04/16/18 23:09 [place] # 1.0 K/mm3 (0.0-0.8) H 04/16/18 23:09 Eos # 0.2 K/mm3 (0.0-0.4) 04/16/18 23:09 Baso # 0.0 K/mm3 (0.0-0.1) 04/16/18 23:09 Seg Neutrophils % 64.9 % (40.0-70.0) 04/16/18 23:09 Seg Neutrophils # 5.1 K/mm3 (1.8-7.7) 04/16/18 23:09 Sodium 137 mmol/L (137-145) 04/20/18 04:50 Potassium 4.0 mmol/L (3.6-5.0) 04/20/18 04:50 Chloride 94.1 mmol/L (98-107) L 04/20/18 04:50 Carbon Dioxide 27 mmol/L (22-30) 04/20/18 04:50 Anion Gap 20 mmol/L 04/20/18 04:50 BUN 21 mg/dL (7-17) H 04/20/18 04:50 Creatinine 4.3 mg/dL (0.7-1.2) H 04/20/18 04:50 Estimated GFR 12 ml/min 04/20/18 04:50 BUN/Creatinine Ratio 5 % 04/20/18 04:50 Glucose 93 mg/dL (65-100) 04/20/18 04:50 POC Glucose 78 (70-105) 04/20/18 06:52 Lactic Acid 1.00 mmol/L (0.7-2.0) 04/16/18 23:09 Calcium 9.8 mg/dL (8.4-10.2) 04/20/18 04:50 Magnesium 2.40 mg/dL (1.7-2.3) H 04/16/18 23:09 Total Creatine Kinase 45 units/L (30-135) 04/16/18 23:09
[2018-04-20] MEDS: IMDUR PO SCH (12:11)
[2018-04-20] MEDS: SODIUM CHLORIDE FLUSH SYRINGE 10 ML IV SCH ×2 (12:12→21:42)
[2018-04-20] MEDS: ZYLOPRIM PO SCH (12:12)
[2018-04-20] MEDS: HEPARIN SUB-Q SCH ×2 (13:58→21:41)
[2018-04-20] MEDS ORDERED: ANCEF/STERILE WATER 2 GM/20 ML 2 GM/20 ML SYRINGE IV SCH (18:00)
[2018-04-20] MEDS ORDERED: ceFAZolin 2 GM in NACL 0.9% 100 ML IV SCH (18:00)
[2018-04-21] MEDS: CLEOCIN PO SCH (05:31)
[2018-04-21 07:22] LABS: Calcium 9.2 mg/dL (8.4-10.2)
--- NOTE | 2018-04-21 10:12 | Discharge Summary ---
Providers - Providers Date of Admission: 04/17/18 00:13 Date of discharge: 04/21/18 Attending physician: JUSTIN ARZATE 04/16/18 22:55 Consult to Physician [CONS] Urgent Comment: Dr. Pitt spoke with Dr. Abby Worrell @ [phone] Consulting Provider: ROSA ROJAS Physician Instructions: Reason For Exam: esrd 04/16/18 22:56 Consult to Physician [CONS] Urgent Comment: Dr. Pitt spoke with Dr. Larsen @ [id number] Consulting Provider: JOANN ARAUJO Physician Instructions: Reason For Exam: vulvar abscess 04/17/18 07:44 Consult to Wound/ET Nurse [CONS] Routine Reason For Exam: wound eval Primary care physician: DIRECTOR BLOOD BANK Hospitalization Reason for admission: Rupture labial abscess Condition: Good Pertinent studies: CT pelvis Hospital course: 67 yr old female patient was admitted with labial cyst rupture evaluated by SPECIAL EFFECTS DESIGNER,managed with antibiotics and wound care,Evaluated by nephrology,received HD per schedule. Wound cultures were positive received antibiotics per sensitivities., Patients symptoms significantly improved . Today pt is comfortable,no new complaints,cleared by Nephrology,cardiology and SPECIAL EFFECTS DESIGNER, Patient is stable at discharge. Discharge Diagnosis: --Hyperkalemia; corrected --Vulval Abscess:SPECIAL EFFECTS DESIGNER evaluated --Positive wound cultures gram-negative rods --Paroxysmal atrial fibrillation; now rate controlled --End-stage renal disease on hemodialysis; --History of coronary artery disease; --Type 2 diabetes mellitus; Disposition: [id number] HOME UNDER HOME [facility] Time spent for discharge: 32 min Core Measure Documentation - Palliative Care Palliative Care/ Comfort Measures: Not Applicable - Core Measures Any of the following diagnoses?: none Exam - Constitutional Vitals: Temp Pulse Resp BP Pulse Ox 98.6 F 76 16 161/56 94 04/21/18 08:02 04/21/18 08:02 04/21/18 08:02 04/21/18 08:02 04/21/18 08:02 General appearance: Present: no acute distress, well-nourished, obese - EENT Eyes: Present: PERRL, EOM intact - Neck Neck: Present: supple - Respiratory Respiratory effort: normal Respiratory: bilateral: diminished, negative: rales, rhonchi, wheezing - Cardiovascular Rhythm: regular Heart Sounds: Present: S1 & S2 - Extremities Extremities: no ischemia, No edema - Abdominal General gastrointestinal: Present: soft, non-tender, non-distended - Integumentary Integumentary: Present: clear, warm - Musculoskeletal Musculoskeletal: strength equal bilaterally, generalized weakness - Psychiatric Psychiatric: appropriate mood/affect, cooperative - Neurologic Neurologic: CNII-XII intact, moves all extremities Plan Activity: advance as tolerated, fall precautions Diet: renal Wound: per wound nurse instructions Special Instructions: physical therapy Additional Instructions: f/u renal /HD [TTS]. wound care as needed per Home health Follow up with: PRIMARY CARE, [Primary Care Provider] - 3-5 Days JOANN ARAUJO MD [Staff Physician] - 7 Days CIRILO WORRELL MD [Staff Physician] - 7 Days Prescriptions: Dextran 70/Hypromellose/Pf [Artificial Tears Drops 1%/0.3%] 1 - 2 drop OP PRN PRN #1 droperette PRN Reason: Dry Eye(S) Levofloxacin [Levaquin] 250 mg PO QDAY #7 tablet
[2018-04-21] MEDS: IMDUR PO SCH (11:06)
[2018-04-21] MEDS: RENVELA PO SCH (11:06)
[2018-04-21] MEDS: ZYLOPRIM PO SCH (11:09)
[2018-04-21 11:10] VITALS: BP 161/66
[2018-04-21] MEDS: SODIUM CHLORIDE FLUSH SYRINGE 10 ML IV SCH (11:10)
--- NOTE | 2018-04-21 13:02 | Progress Note ---
Assessment and Plan Impression: * End stage renal disease on HD * Hyperkalemia - resolved * Labial abscess- polymicrobial: ecoli/GNR1/GNR2 * Atrial fibrillation on chronic anticoagulation * Anemia secondary to ESRD * Secondary hyperparathryoidism * Hx of CAD s/p PCI to LAD * Hx of Vfib arrest Plan: * Continue HD TTS schedule * UF as tolerated * ID/sens pending - abx per primary team/multimedia engineer * Epogen TIW prn * Renal diet Subjective Date of service: 04/21/18 Principal diagnosis: Vulval abscess, defibrillation, Interval history: resting in bed today Objective - Exam Narrative Exam: General appearance: well-developed, well-nourished EENT: ATNC Respiratory: Present: Clear to Ascultation Cardiology: regular, S1S2 Gastrointestinal: normal, no tenderness, no distended, obese Integumentary: no rash, warm and dry Neurologic: alert and oriented x3 Musculoskeletal: other (no edema) Psychiatric: cooperative - Vital Signs Vital signs: Vital Signs - 12hr 04/21/18 04/21/18 08:02 11:06 Temperature 98.6 F Pulse Rate 76 78 Respiratory 16 Rate Blood Pressure 161/56 161/66 O2 Sat by Pulse 94 Oximetry - Lab 04/16/18 23:09 04/21/18 05:23 Most recent lab results Calcium 9.2 mg/dL (8.4-10.2) 04/21/18 05:23 Magnesium 2.40 mg/dL (1.7-2.3) H 04/16/18 23:09
--- NOTE | 2018-04-21 13:29 | Progress Note ---
Assessment and Plan - Patient Problems (1) Vulvar abscess Current Visit: Yes Status: Acute Plan to address problem: clinically improved discussed care of site Subjective - Subjective Date of service: 04/21/18 Principal diagnosis: Vulval abscess, defibrillation, Interval history: Patient notes improvement in her vulvar infection. Having decreased pain. Patient is scheduled for discharge home today Patient reports: appetite normal, pain well controlled Objective - Vital Signs Latest vital signs: Vital Signs Temp Pulse Resp BP Pulse Ox 04/21/18 11:06 78 161/66 04/21/18 08:02 98.6 F 76 16 161/56 94 04/20/18 23:52 98.9 F 82 16 151/54 93 04/20/18 23:00 81 04/20/18 20:28 98.2 F 76 16 151/56 97 04/20/18 16:11 99.1 F 80 18 130/59 95 Intake and Output 04/20/18 04/21/18 04/21/18 22:59 06:59 14:59 Intake Total 200 Balance 200 Intake: Oral 200 Other: Total, Intake Amount 200 - Labs Labs: Abnormal lab results 04/20/18 04/20/18 04/20/18 Range/Units 12:12 16:20 21:14 Sodium (137-145) mmol/L Chloride (98-107) mmol/L BUN (7-17) mg/dL Creatinine (0.7-1.2) mg/dL POC Glucose 106 H 121 H 116 H (70-105) 04/21/18 Range/Units 05:23 Sodium 136 L (137-145) mmol/L Chloride 93.5 L (98-107) mmol/L BUN 38 H (7-17) mg/dL Creatinine 6.2 H (0.7-1.2) mg/dL POC Glucose (70-105)
== END 2018-04-21 15:35 | disposition home health service (06) | DRG 757 ==
LOC: ED 22:18 → 4A 04-17 00:13
PROVIDERS: ADMIT Internal Medicine; ATTEND Internal Medicine
PROC: 5A1D70Z Performance of Urinary Filtration, Intermittent, Less than 6 Hours Per Day (ICD-10-PCS; principal; 2018-04-17)
PROC: 5A1D70Z Performance of Urinary Filtration, Intermittent, Less than 6 Hours Per Day (ICD-10-PCS; 2018-04-18)
PROC: 5A1D70Z Performance of Urinary Filtration, Intermittent, Less than 6 Hours Per Day (ICD-10-PCS; 2018-04-19)
DX: N76.4 Abscess of vulva (principal); N18.6 End stage renal disease; N25.81 Secondary hyperparathyroidism of renal origin; I13.2 Hypertensive heart and chronic kidney disease with heart failure and with stage 5 chronic kidney disease, or end stage renal disease; E87.5 Hyperkalemia; I48.0 Paroxysmal atrial fibrillation; I25.10 Atherosclerotic heart disease of native coronary artery without angina pectoris; D63.1 Anemia in chronic kidney disease; E11.22 Type 2 diabetes mellitus with diabetic chronic kidney disease; I50.9 Heart failure, unspecified; K21.9 Gastro-esophageal reflux disease without esophagitis; M19.90 Unspecified osteoarthritis, unspecified site; Z87.442 Personal history of urinary calculi; Z79.01 Long term (current) use of anticoagulants; Z90.49 Acquired absence of other specified parts of digestive tract; Z90.710 Acquired absence of both cervix and uterus; Z82.49 Family history of ischemic heart disease and other diseases of the circulatory system; Z83.3 Family history of diabetes mellitus; Z88.6 Allergy status to analgesic agent; Z79.899 Other long term (current) drug therapy; Z86.74 Personal history of sudden cardiac arrest; I25.2 Old myocardial infarction; Z95.5 Presence of coronary angioplasty implant and graft; Z93.3 Colostomy status
CPT/HCPCS: 36415; 72192; 80048; 82140; 82550; 82962; 83735; 85025; 87075; 87076; 87116; 87186; 93005; 93010; A9270-GY; J0610; J0690; J1644; J1815; J2405; J3010; J7030

== ENCOUNTER 2018-04-28 10:02 | Outpatient (CLI) | payer MEDICARE ==
[2018-04-28] MEDS ORDERED: XYLOCAINE TOPICAL 4% TP ONE ×2 (10:08→10:51)
== END 2018-04-28 10:03 | disposition home or self-care (01) ==
LOC: WOUND 10:02
PROVIDERS: ATTEND Surgery
DX: T81.89XD Other complications of procedures, not elsewhere classified, subsequent encounter (principal); E11.622 Type 2 diabetes mellitus with other skin ulcer; L97.821 Non-pressure chronic ulcer of other part of left lower leg limited to breakdown of skin; L97.812 Non-pressure chronic ulcer of other part of right lower leg with fat layer exposed; E11.22 Type 2 diabetes mellitus with diabetic chronic kidney disease; I12.0 Hypertensive chronic kidney disease with stage 5 chronic kidney disease or end stage renal disease; N18.6 End stage renal disease; E83.59 Other disorders of calcium metabolism; Z99.2 Dependence on renal dialysis; Y83.8 Other surgical procedures as the cause of abnormal reaction of the patient, or of later complication, without mention of misadventure at the time of the procedure
CPT/HCPCS: 97597

== ENCOUNTER 2018-05-05 09:53 | Outpatient (CLI) | payer MEDICARE ==
[2018-05-05] MEDS ORDERED: XYLOCAINE TOPICAL 2% 5ML ONE (10:00)
[2018-05-05] MEDS ORDERED: XYLOCAINE TOPICAL 2% 5ML TP ONE (11:00)
== END 2018-05-05 09:54 | disposition home or self-care (01) ==
LOC: WOUND 09:53
PROVIDERS: ATTEND Surgery
DX: T81.89XD Other complications of procedures, not elsewhere classified, subsequent encounter (principal); E11.622 Type 2 diabetes mellitus with other skin ulcer; L97.821 Non-pressure chronic ulcer of other part of left lower leg limited to breakdown of skin; L97.812 Non-pressure chronic ulcer of other part of right lower leg with fat layer exposed; E11.22 Type 2 diabetes mellitus with diabetic chronic kidney disease; I12.0 Hypertensive chronic kidney disease with stage 5 chronic kidney disease or end stage renal disease; N18.6 End stage renal disease; E83.59 Other disorders of calcium metabolism; Z99.2 Dependence on renal dialysis; Y83.8 Other surgical procedures as the cause of abnormal reaction of the patient, or of later complication, without mention of misadventure at the time of the procedure
CPT/HCPCS: 99214; G0463

== ENCOUNTER 2018-05-19 09:49 | Outpatient (CLI) | payer MEDICARE ==
[2018-05-19] MEDS ORDERED: XYLOCAINE TOPICAL 4% TP ONE ×2 (10:07→10:28)
== END 2018-05-19 09:50 | disposition home or self-care (01) ==
LOC: WOUND 09:49
PROVIDERS: ATTEND Surgery
DX: T81.89XD Other complications of procedures, not elsewhere classified, subsequent encounter (principal); E11.622 Type 2 diabetes mellitus with other skin ulcer; L97.821 Non-pressure chronic ulcer of other part of left lower leg limited to breakdown of skin; L97.812 Non-pressure chronic ulcer of other part of right lower leg with fat layer exposed; E11.22 Type 2 diabetes mellitus with diabetic chronic kidney disease; I12.0 Hypertensive chronic kidney disease with stage 5 chronic kidney disease or end stage renal disease; N18.6 End stage renal disease; E83.59 Other disorders of calcium metabolism; Z99.2 Dependence on renal dialysis; Y83.8 Other surgical procedures as the cause of abnormal reaction of the patient, or of later complication, without mention of misadventure at the time of the procedure
CPT/HCPCS: 99215; G0463

== ENCOUNTER 2018-05-26 10:01 | Outpatient (CLI) | payer MEDICARE ==
[2018-05-26] MEDS ORDERED: XYLOCAINE TOPICAL 4% TP ONE ×2 (10:32→13:12)
== END 2018-05-26 10:02 | disposition home or self-care (01) ==
LOC: WOUND 10:01
PROVIDERS: ATTEND Surgery
DX: T81.89XD Other complications of procedures, not elsewhere classified, subsequent encounter (principal); E11.622 Type 2 diabetes mellitus with other skin ulcer; L97.821 Non-pressure chronic ulcer of other part of left lower leg limited to breakdown of skin; L97.812 Non-pressure chronic ulcer of other part of right lower leg with fat layer exposed; E11.22 Type 2 diabetes mellitus with diabetic chronic kidney disease; I12.0 Hypertensive chronic kidney disease with stage 5 chronic kidney disease or end stage renal disease; N18.6 End stage renal disease; E83.59 Other disorders of calcium metabolism; Z99.2 Dependence on renal dialysis; Y83.8 Other surgical procedures as the cause of abnormal reaction of the patient, or of later complication, without mention of misadventure at the time of the procedure
CPT/HCPCS: 82962

== ENCOUNTER 2018-06-09 09:51 | Outpatient (CLI) | payer MEDICARE ==
[2018-06-09] MEDS ORDERED: XYLOCAINE TOPICAL 4% TP ONE ×2 (09:58→10:11)
== END 2018-06-09 09:52 | disposition home or self-care (01) ==
LOC: WOUND 09:51
PROVIDERS: ATTEND Surgery
DX: T81.89XD Other complications of procedures, not elsewhere classified, subsequent encounter (principal); E11.622 Type 2 diabetes mellitus with other skin ulcer; L97.821 Non-pressure chronic ulcer of other part of left lower leg limited to breakdown of skin; L97.812 Non-pressure chronic ulcer of other part of right lower leg with fat layer exposed; E11.22 Type 2 diabetes mellitus with diabetic chronic kidney disease; I12.0 Hypertensive chronic kidney disease with stage 5 chronic kidney disease or end stage renal disease; N18.6 End stage renal disease; E83.59 Other disorders of calcium metabolism; Z99.2 Dependence on renal dialysis; Y83.8 Other surgical procedures as the cause of abnormal reaction of the patient, or of later complication, without mention of misadventure at the time of the procedure
CPT/HCPCS: 99214; G0463

== ENCOUNTER 2018-06-23 09:57 | Outpatient (CLI) | payer MEDICARE ==
[2018-06-23] MEDS ORDERED: XYLOCAINE TOPICAL 4% TP ONE ×2 (10:03→10:35)
== END 2018-06-23 09:58 | disposition home or self-care (01) ==
LOC: WOUND 09:57
PROVIDERS: ATTEND Surgery
DX: T81.89XD Other complications of procedures, not elsewhere classified, subsequent encounter (principal); E11.622 Type 2 diabetes mellitus with other skin ulcer; L97.821 Non-pressure chronic ulcer of other part of left lower leg limited to breakdown of skin; L97.812 Non-pressure chronic ulcer of other part of right lower leg with fat layer exposed; E11.22 Type 2 diabetes mellitus with diabetic chronic kidney disease; I12.0 Hypertensive chronic kidney disease with stage 5 chronic kidney disease or end stage renal disease; N18.6 End stage renal disease; E83.59 Other disorders of calcium metabolism; Z99.2 Dependence on renal dialysis; Y83.8 Other surgical procedures as the cause of abnormal reaction of the patient, or of later complication, without mention of misadventure at the time of the procedure

== ENCOUNTER 2018-07-07 09:35 | Outpatient (CLI) | payer MEDICARE | END 2018-07-07 09:36 | disposition home or self-care (01) | LOC: WOUND 09:35 | PROVIDERS: ATTEND Surgery | DX: T81.89XD Other complications of procedures, not elsewhere classified, subsequent encounter (principal); E11.622 Type 2 diabetes mellitus with other skin ulcer; L97.821 Non-pressure chronic ulcer of other part of left lower leg limited to breakdown of skin; L97.812 Non-pressure chronic ulcer of other part of right lower leg with fat layer exposed; E11.22 Type 2 diabetes mellitus with diabetic chronic kidney disease; I12.0 Hypertensive chronic kidney disease with stage 5 chronic kidney disease or end stage renal disease; N18.6 End stage renal disease; E83.59 Other disorders of calcium metabolism; Z99.2 Dependence on renal dialysis; Y83.8 Other surgical procedures as the cause of abnormal reaction of the patient, or of later complication, without mention of misadventure at the time of the procedure | CPT/HCPCS: 99213; G0463 ==

== ENCOUNTER 2018-07-23 08:05 | Outpatient (CLI) | payer MEDICARE | END 2018-07-23 08:06 | disposition home or self-care (01) | LOC: WOUND 08:05 | PROVIDERS: ATTEND Surgery | DX: T81.89XD Other complications of procedures, not elsewhere classified, subsequent encounter (principal); E11.622 Type 2 diabetes mellitus with other skin ulcer; L97.821 Non-pressure chronic ulcer of other part of left lower leg limited to breakdown of skin; L97.812 Non-pressure chronic ulcer of other part of right lower leg with fat layer exposed; E11.22 Type 2 diabetes mellitus with diabetic chronic kidney disease; I12.0 Hypertensive chronic kidney disease with stage 5 chronic kidney disease or end stage renal disease; N18.6 End stage renal disease; E83.59 Other disorders of calcium metabolism; Z99.2 Dependence on renal dialysis; Y83.8 Other surgical procedures as the cause of abnormal reaction of the patient, or of later complication, without mention of misadventure at the time of the procedure | CPT/HCPCS: 99212; G0463 ==

== ENCOUNTER 2018-10-22 11:06 | Outpatient (CLI) | payer MEDICARE | END 2018-10-22 11:07 | disposition home or self-care (01) | LOC: WOUND 11:06 | CPT/HCPCS: 11042; G0463; 99205 ==

== ENCOUNTER 2018-10-27 13:09 | Outpatient (CLI) | payer MEDICARE ==
--- NOTE | 2018-10-27 15:35 | Vascular Lab Report ---
FINAL REPORT EXAM: VL VENOUS DUPLEX LE BILAT HISTORY: LYMPHEDEMA COMPARISON: None TECHNIQUE: Duplex Doppler ultrasound of the veins the bilateral lower extremities was performed. FINDINGS: There are normal waveforms, compression, and augmentation of the veins of the bilateral lower extremi ties. IMPRESSION: No evidence of deep venous thrombosis of the bilateral lower extremities.
== END 2018-10-27 13:10 | disposition home or self-care (01) ==
LOC: VAS 13:09
PROVIDERS: ATTEND Surgery
DX: I89.0 Lymphedema, not elsewhere classified (principal); I13.2 Hypertensive heart and chronic kidney disease with heart failure and with stage 5 chronic kidney disease, or end stage renal disease; N18.6 End stage renal disease; E11.22 Type 2 diabetes mellitus with diabetic chronic kidney disease; E66.9 Obesity, unspecified; E78.5 Hyperlipidemia, unspecified; I50.9 Heart failure, unspecified; K21.9 Gastro-esophageal reflux disease without esophagitis; J45.909 Unspecified asthma, uncomplicated; E78.00 Pure hypercholesterolemia, unspecified; M19.90 Unspecified osteoarthritis, unspecified site; Z90.710 Acquired absence of both cervix and uterus; Z90.12 Acquired absence of left breast and nipple
CPT/HCPCS: 93970

== ENCOUNTER 2018-11-05 03:07 | Inpatient (IN) | payer MEDICARE ==
[2018-11-05] MEDS ORDERED: ZOFRAN IV ONE ×2 (03:31→03:37)
[2018-11-05] MEDS ORDERED: PROTONIX IV ONE (03:31)
[2018-11-05] MEDS ORDERED: NACL 0.9% IV ONE (03:37)
[2018-11-05] MEDS ORDERED: DDAVP IV ONE (03:37)
--- NOTE | 2018-11-05 03:38 | Emergency Department Report ---
ED General Adult HPI - General Chief complaint: Abdominal Pain Stated complaint: VOMITING BLOOD Time Seen by Provider: 11/05/18 03:31 Source: patient, family, EMS (verbal report received from EMS.ems notes not available at time of chart dictation), RN notes reviewed Mode of arrival: Stretcher Limitations: Physical Limitation - History of Present Illness Initial comments: This is a 67-year-old female. I have evaluated this patient in the past. Her n ephrologist is Dr. Worrell, she is on dialysis, Saturday, , Saturday, has a history of hypertension and cardiac arrest. Patient presents to the emergency room today with a complaint of nontraumatic abdominal pain, nausea vomiting, coffee-ground emesis, malaise, fatigue, and generalized weakness. Symptoms present for the past few hours, constant, did not radiate anywhere, worse with position, exertion, attending to eat, decreases with rest and pain medicine. Apparently, the patient takes systemic anticoagulation, eliquis, and is not quite sure why she takes it. She denies urinary symptoms. -: Gradual Location: abdomen Consistency: other Improves with: other Worsens with: other Associated Symptoms: loss of appetite, malaise, nausea/vomiting, weakness. denies: confusion, chest pain, cough, diaphoresis, fever/chills (patient patient denies fevers), headaches, rash, seizure, shortness of breath, syncope - Related Data Home Medications Medication Instructions Recorded Confirmed Last Taken Allopurinol [Zyloprim] 100 mg PO QDAY MDD 100 mg 01/01/18 11/05/18 07/12/18 Apixaban [Eliquis] 5 mg PO BID MDD 10 mg 01/01/18 11/05/18 07/12/18 Cinacalcet HCl [Sensipar] 60 mg PO DAILY MDD 60 mg 01/01/18 11/05/18 07/12/18 Metoprolol [Lopressor TAB] 25 mg BID 07/13/18 11/05/18 07/12/18 Previous Rx's Medication Instructions Recorded Last Taken Type AtorvaSTATin [Lipitor] 80 mg PO QHS #30 tablet 10/08/17 07/12/18 Rx ISOSORBIDE MONOnitrate [Imdur ER] 60 mg PO QDAY #30 tablet 01/05/18 07/12/18 Rx Dextran 70/Hypromellose/Pf 1 - 2 drop OP PRN PRN #1 droperette 04/21/18 07/12/18 Rx [Artificial Tears Drops 1%/0.3%] Allergies Allergy/AdvReac Type Severity Reaction Status Date / Time aspirin AdvReac HEART Verified 01/23/17 16:26 FLUTTER ED Review of Systems ROS: Stated complaint: VOMITING BLOOD Other details as noted in HPI Constitutional: malaise Eyes: denies: eye discharge ENT: denies: epistaxis Respiratory: denies: cough Cardiovascular: denies: chest pain Gastrointestinal: abdominal pain, nausea, vomiting, hematemesis. denies: melena, hematochezia Genitourinary: denies: dysuria Musculoskeletal: denies: back pain Skin: denies: lesions Neurological: weakness Psychiatric: anxiety ED Past Medical Hx - Past Medical History Hx Hypertension: Yes Hx Heart Attack/AMI: Yes (03/16) Hx Congestive Heart Failure: Yes Hx Diabetes: Yes Hx GERD: Yes Hx Renal Disease: Yes (DIALYSIS ) Hx Arthritis: Yes Hx Kidney Stones: Yes Hx Asthma: No Hx COPD: No Hx HIV: No Additional medical history: benign mass on intestine. HIGH CHOLESTEROL. ANEMIA. TIA - Surgical History Hx Coronary Stent: Yes (x2) Hx Cholecystectomy: Yes Hx Appendectomy: Yes Hx Breast Surgery: Yes (LEFT BREAST LUMPECTOMY) Additional Surgical History: AV fistula left arm, hysterectomy, , tonsillectomy, colostomy, colostomy reversal. HERNIA REPAIR. LITHOTRIPSY - Social History Smoking Status: Never Smoker - Medications Home Medications: Home Medications Medication Instructions Recorded Confirmed Last Taken Type AtorvaSTATin [Lipitor] 80 mg PO QHS #30 tablet 10/08/17 11/05/18 07/12/18 Rx Allopurinol [Zyloprim] 100 mg PO QDAY MDD 100 mg 01/01/18 11/05/18 07/12/18 History Apixaban [Eliquis] 5 mg PO BID MDD 10 mg 01/01/18 11/05/18 07/12/18 History Cinacalcet HCl [Sensipar] 60 mg PO DAILY MDD 60 mg 01/01/18 11/05/18 07/12/18 History ISOSORBIDE MONOnitrate [Imdur ER] 60 mg PO QDAY #30 tablet 01/05/18 11/05/18 07/12/18 Rx Dextran 70/Hypromellose/Pf 1 - 2 drop OP PRN PRN #1 droperette 04/21/18 11/05/18 07/12/18 Rx [Artificial Tears Drops 1%/0.3%] Metoprolol [Lopressor TAB] 25 mg BID 07/13/18 11/05/18 07/12/18 History ED Physical Exam - General Limitations: Physical Limitation General appearance: alert, anxious, in distress, obese - Head Head exam: Present: atraumatic, normocephalic - Eye Eye exam: Present: normal appearance, EOMI. Absent: nystagmus - ENT ENT exam: Present: normal exam, normal orophraynx, mucous membranes moist, normal external ear exam - Neck Neck exam: Present: normal inspection, full ROM. Absent: tenderness, meningismus - Respiratory Respiratory exam: Present: normal lung sounds bilaterally. Absent: respiratory distress - Cardiovascular Cardiovascular Exam: Present: regular rate, normal rhythm, normal heart sounds. Absent: bradycardia, tachycardia, irregular rhythm, systolic murmur, diastolic murmur, rubs, gallop - GI/Abdominal GI/Abdominal exam: Present: soft, tenderness. Absent: distended, guarding, r ebound, rigid, pulsatile mass - Extremities Exam Extremities exam: Present: normal inspection (chronic wound noted on the right lower extremity. Left upper extremity fistula noted, with no redness, pus or streaking), full ROM, pedal edema. Absent: calf tenderness - Back Exam Back exam: Present: normal inspection, full ROM. Absent: tenderness, CVA tenderness (R), paraspinal tenderness, vertebral tenderness - Neurological Exam Neurological exam: Present: alert, other (Extraocular movements intact. Tongue midline. No facial droop. Facial sensation intact to light touch in the V1, V2, V3 distribution bilaterally. 5 and 5 strength in 4 extremities.. Sensation is intact to light touch in 4 extremities.) - Psychiatric Psychiatric exam: Present: anxious - Skin Skin exam: Present: warm, dry, intact, normal color. Absent: rash ED Course Vital Signs 11/05/18 03:45 Temperature 100.6 F H Pulse Rate 95 H Respiratory 24 Rate Blood Pressure 152/62 Blood Pressure 152/62 [Right] O2 Sat by Pulse 97 Oximetry - Reevaluation(s) Reevaluation #1: 11/05/18 04:40 Differential diagnosis, including not limited to: Pneumonia, urinary tract infection, bacteremia, GI bleed, retroperitoneal hematoma, Kassandra-Lopez tear Assessment and plan: 67-year-old female with multiple medical comorbidities, found to have fever, borderline tachycardia, coffee-ground emesis. Patient protecting her airway at this time. Has no midline spinal tenderness. Therefore, clinically do not favor discitis or osteomyelitis. We will treat the patient with pain medication, nausea medication, desmopressin, proton pump inhibitor, and initiate empiric antibiotic therapy. Noncontrast CT scan of the abdomen and pelvis negative otherwise for acute disease. Laboratory studies pending at this time. Once they have resulted, we will consult gastroenterology, nephrology, and admit the patient to the medical service for acute febrile illness, and presumed upper gastrointestinal bleed. This is discussed with the patient and family, who verbalized understanding, and are amenable to this plan of care. Reevaluation #2: 11/05/18 05:08 Dr Johns to admit Reevaluation #3: 11/05/18 05:44 Patient does not have abdominal tenderness out of proportion to her exam, she is on systemic anticoagulation, and her lactic acid is not especially elevated. Therefore, clinically, do not favor ischemic gut. - Consultations Consultation #1: 11/05/18 04:51 Discussed with gastroenterology, Dr. Hardin, his group will follow in consultatio n. Consultation #2: 11/05/18 05:09 Discussed with nephrology, Dr. Hogue, who agrees to follow in consultation. - EJ/Peripheral Line Neck R Time Out Performed: Yes Indications: nurses unable to establis Skin Cleansed in Sterile Fashion: Yes Size: 20 Dressing Placed: Tegaderm Patient Tolerated Procedure: well ED Medical Decision Making - Lab Data Result diagrams: 11/05/18 04:27 11/05/18 04:27 Vital Signs 11/05/18 03:45 Temperature 100.6 F H Pulse Rate 95 H Respiratory 24 Rate Blood Pressure 152/62 Blood Pressure 152/62 [Right] O2 Sat by Pulse 97 Oximetry Lab Results 11/05/18 Range/Units 04:27 WBC 14.5 H (4.5-11.0) K/mm3 RBC 3.96 (3.65-5.03) M/mm3 Hgb 12.1 (10.1-14.3) gm/dl Hct 37.1 (30.3-42.9) % MCV 94 (79-97) fl MCH 31 (28-32) pg MCHC 33 (30-34) % RDW 16.2 H (13.2-15.2) % Plt Count 175 (140-440) K/mm3 Lymph % (Auto) 4.6 L (13.4-35.0) % [place] % (Auto) 8.4 H (0.0-7.3) % Eos % (Auto) 0.6 (0.0-4.3) % Baso % (Auto) 0.3 (0.0-1.8) % Lymph # 0.7 L (1.2-5.4) K/mm3 [place] # 1.2 H (0.0-0.8) K/mm3 Eos # 0.1 (0.0-0.4) K/mm3 Baso # 0.0 (0.0-0.1) K/mm3 Seg Neutrophils % 86.1 H (40.0-70.0) % Seg Neutrophils # 12.5 H (1.8-7.7) K/mm3 - EKG Data -: EKG Interpreted by Me EKG shows normal: sinus rhythm Rate: normal - EKG Data 11/05/18 04:44 Sinus, 84 bpm, normal axis, QTC prolonged, motion artifact, abnormal EKG, not consistent with ST elevation myocardial infarction, appears grossly unchanged from prior EKG from June 2018. - Radiology Data Radiology results: report reviewed interpreted by me: X-ray of the chest shows poor inspiratory effort, calcified aorta, enlarged cardiac silhouette, pulmonary vascular congestion, no overt CHF, no overt infiltrates, atelectasis. Referring Physician: KEV ABRAMS Patient Name: SAMANTA CAMARENA Date of : 1950 Sex: Female Report Date: 2018-11-05 Report Status: Finalized [facility] [address] [place] [address] Cat Scan Report Signed Patient: SAMANTA CAMARENA MR#: [id number] : 1950 Acct:[id number] Age/Sex: 67 / F ADM Date: 11/05/18 Loc: ED Attending Dr: Ordering Physician: KEV ABRAMS MD Date of Service: 11/05/18 Procedure(s): CT abdomen pelvis wo con Accession Number(s): [id number] cc: KEV ABRAMS MD FINAL REPORT PROCEDURE: CT ABD AND PELVIS WO CONTRAST TECHNIQUE: Computerized axial tomography of the abdomen and pelvis was performed without intravenous contrast. This study is performed without intravascular contrast material and its sensitivity for abdominal and pelvic pathology, including neoplasms, inflammation, abscess, free fluid, thrombosis, arterial dissection and infarction, is reduced compared with a contrast enhanced study. HISTORY: GI BLEED COMPARISON: 04/07/2016 FINDINGS: Visualized lower thorax: There are infiltrates at the lung bases bilaterally.. Liver: Normal size and attenuation. Spleen: Normal size and attenuation. Gallbladder and biliary system: There has been a cholecystectomy. The bile ducts are normal in caliber.. Pancreas: Normal. Adrenals: Normal. Kidneys: The kidneys are atrophic. There are bilateral kidney cysts and stones. There are intrarenal vascular calcifications. There is no hydronephrosis.. GI tract: There is no bowel obstruction, colitis or enteritis. The appendix is not identified.. Lymph nodes and mesentery: Normal. Vasculature: Normal. Bladder: Normal. Reproductive organs: Uterus is atrophic.. Peritoneum: There is no ascites, free air, abscess or adenopathy.. Musculoskeletal structures: There is an advanced compression deformity of T10. There is deformity of the superior endplate of T11 which could be due to degenerative change. Discitis/osteomyelitis is not excluded. No paraspinal or epidural abnormality is identified. Clinical correlation suggested. These changes are new since the prior CT dated 04/07/2016. Lumbar vertebrae are within normal limits.. Other: None. IMPRESSION: There has been a cholecystectomy. The bile ducts are normal in caliber.. The kidneys are atrophic. There are bilateral kidney cysts and stones. There are intrarenal vascular calcifications. There is no hydronephrosis.. There is no bowel obstruction, colitis or enteritis. The appendix is not identified.. There is no ascites, free air, abscess or adenopathy.. There is an advanced compression deformity of T10. There is deformity of the superior endplate of T11 which could be due to degenerative change. Discitis/osteomyelitis is not excluded. No paraspinal or epidural abnormality is identified. Clinical correlation suggested. These changes are new since the prior CT dated 04/07/2016. Lumbar vertebrae are within normal limits.. . Transcribed By: CO Dictated By: KYRIE PAZ MD Electronic ally Authenticated By: KYRIE PAZ MD Signed Date/Time: 11/05/18 0422 Critical care attestation.: If time is entered above; I have spent that time in minutes in the direct care of this critically ill patient, excluding procedure time. ED Disposition Clinical Impression: ESRD on dialysis, Fever, Upper GI bleed Disposition: OP ADMIT IP TO THIS HOSP Is pt being admited?: Yes Condition: Fair Instructions: Abdominal Pain (ED) Referrals: SANDY STACY MD [Primary Care Provider] - 3-5 Days
--- NOTE | 2018-11-05 04:22 | Cat Scan Report ---
FINAL REPORT PROCEDURE: CT ABD AND PELVIS WO CONTRAST TECHNIQUE: Computerized axial tomography of the abdomen and pelvis was performed without intravenous contrast. This study is performed without intravascular contrast material and its sensitivity for ab dominal and pelvic pathology, including neoplasms, inflammation, abscess, free fluid, thrombosis, art erial dissection and infarction, is reduced compared with a contrast enhanced study. HISTORY: GI BLEED COMPARISON: 04/07/2016 FINDINGS: Visualized lower thorax: There are infiltrates at the lung bases bilaterally.. Liver: Normal size and attenuation. Spleen: Normal size and attenuation. Gallbladder and biliary system: There has been a cholecystectomy. The bile ducts are normal in calibe r.. Pancreas: Normal. Adrenals: Normal. Kidneys: The kidneys are atrophic. There are bilateral kidney cysts and stones. There are intrarenal vascular calcifications. There is no hydronephrosis.. GI tract: There is no bowel obstruction, colitis or enteritis. The appendix is not identified.. Lymph nodes and mesentery: Normal. Vasculature: Normal. Bladder: Normal. Reproductive organs: Uterus is atrophic.. Peritoneum: There is no ascites, free air, abscess or adenopathy.. Musculoskeletal structures: There is an advanced compression deformity of T10. There is deformity of the superior endplate of T11 which could be due to degenerative change. Discitis/osteomyelitis is not excluded. No paraspinal or epidural abnormality is identified. Clinical correlation suggested. These changes are new since the prior CT dated 04/07/2016. Lumbar vertebrae are within normal limits.. Other: None. IMPRESSION: There has been a cholecystectomy. The bile ducts are normal in caliber.. The kidneys are atrophic. There are bilateral kidney cysts and stones. There are intrarenal vascular calcifications. There is no hydronephrosis.. There is no bowel obstruction, colitis or enteritis. The appendix is not identified.. There is no ascites, free air, abscess or adenopathy.. There is an advanced compression deformity of T10. There is deformity of the superior endplate of T11 which could be due to degenerative change. Discitis/osteomyelitis is not excluded. No paraspinal or epidural abnormality is identified. Clinical correlation suggested. These changes are new since the p rior CT dated 04/07/2016. Lumbar vertebrae are within normal limits.. .
[2018-11-05] MEDS ORDERED: TYLENOL PO ONE (04:33)
[2018-11-05] MEDS ORDERED: ROCEPHIN/NS 1 GM/50 ML 1 GM/50 ML BAG IV ONE (04:34)
[2018-11-05 04:41] LABS: Basophils % (Auto) 0.3 % (0.0-1.8); Eosinophils % (Auto) 0.6 % (0.0-4.3); Hematocrit 37.1 % (30.3-42.9); Hemoglobin 12.1 gm/dl (10.1-14.3); Lymphocytes # (Auto) 0.7 K/mm3 (1.2-5.4); Lymphocytes % (Auto) 4.6 % (13.4-35.0); Mean Corpuscular HGB Conc 33 % (30-34); Mean Corpuscular Volume 94 fl (79-97); Monocytes % (Auto) 8.4 % (0.0-7.3); Platelet Count 175 K/mm3 (140-440); Red Blood Count 3.96 M/mm3 (3.65-5.03); Red Cell Distribution Width 16.2 % (13.2-15.2)
[2018-11-05 04:42] LABS: Eosinophils # (Auto) 0.1 K/mm3 (0.0-0.4); Monocytes # (Auto) 1.2 K/mm3 (0.0-0.8)
[2018-11-05 04:59] LABS: Calcium 8.4 mg/dL (8.4-10.2)
[2018-11-05 05:11] LABS: INR 1.17 (0.87-1.13); Partial Thromboplastin Time 21.5 Sec. (24.2-36.6)
--- NOTE | 2018-11-05 05:14 | XRay Report ---
FINAL REPORT PROCEDURE: XR CHEST 1V AP TECHNIQUE: Chest radiograph anteroposterior view. CPT 51139 HISTORY: GI Bleed, hx htn, chf COMPARISON: No prior studies are available for comparison. FINDINGS: Heart: Normal. Mediastinum/Vessels: There is calcified plaque in the thoracic aorta. There is no aneurysm.. Lungs/Pleural space: Lungs are expanded. There are no infiltrates, effusions or pneumothoraces.. Ther e is no pulmonary edema. Bony thorax: No acute osseous abnormality. Life support devices: None. IMPRESSION: No acute cardiopulmonary abnormality.
[2018-11-05] MEDS ORDERED: TYLENOL PR PRN (06:03)
[2018-11-05] MEDS ORDERED: ZOFRAN IV PRN (06:03)
[2018-11-05 06:54] LABS: Hemoglobin 11.7 gm/dl (10.1-14.3)
--- NOTE | 2018-11-05 08:43 | History and Physical Report ---
CHIEF COMPLAINT: Abdominal discomfort. OTHER COMPLAINT: Includes coffee-ground emesis and fever. HISTORY OF PRESENTING ILLNESS: The patient is a 67-year-old female with past history of end-stage renal disease, on dialysis, presenting with coffee-ground emesis associated with some abdominal discomfort. There is also history of fever, but there is no history of cough, no history of shortness of breath or chest pain. The patient also complains of generalized weakness and the patient denied history of ingestion of alcohol or nonsteroidal antiinflammatory drug. PAST MEDICAL HISTORY: Pertinent for hypertension, coronary artery disease, status post myocardial infarction, congestive heart failure, diabetes mellitus, gastroesophageal reflux disease. End-stage renal disease, on dialysis. Arthritis, kidney stone, benign mass on the intestine, hypercholesterolemia, anemia, TIA. PAST SURGICAL HISTORY: Pertinent for cholecystectomy, appendectomy, left breast lumpectomy, AV fistula placement on the left arm, hysterectomy, , tonsillectomy, hernia repair, lithotripsy, colostomy and colostomy reversal. FAMILY HISTORY: Family history is noncontributory. SOCIAL HISTORY: The patient does not smoke, does not drink alcohol and does not use illicit drugs. MEDICATIONS: The patient is on Lipitor 80 mg by mouth at bedtime, allopurinol 100 mg by mouth daily, apixaban 5 mg by mouth twice daily, Sensipar 60 mg by mouth daily, isosorbide mononitrate or Imdur 60 mg daily, artificial tear dropped into the eye 1-2 drops both eyes as needed. ALLERGIES: THE PATIENT IS ALLERGIC TO ASPIRIN. REVIEW OF SYSTEMS: CONSTITUTIONAL: There is fever but no chills, no diaphoresis. HEENT: There is no headache or sore throat. CARDIOVASCULAR SYSTEM: There is no chest pain or orthopnea. RESPIRATORY SYSTEM: There is no shortness of breath or cough. GASTROINTESTINAL SYSTEM: Coffee-ground emesis present. No bright red blood vomiting, and no dark stool or hematochezia; however, the patient has abdominal discomfort and there is no history of constipation or diarrhea. NEUROLOGICAL SYSTEM: There is no numbness, no dizziness, no altered mental status. MUSCULOSKELETAL SYSTEM: There is no joint pain or swelling. DERMATOLOGICAL SYSTEM: There is no skin rash or itching. GENITOURINARY SYSTEM: There is dysuria, but no hematuria and no flank pain. Rest of system review is normal. PHYSICAL EXAMINATION: GENERAL: At the time of exam, the patient was found to be alert, oriented x 3 and not in acute distress. VITAL SIGNS: At the initial time of presentation shows temperature of 100.6 degrees Fahrenheit, pulse of 95, respirations 24, blood pressure 152/62, O2 sat of 97% on room air. HEENT: Show pupils to be equal, round, reactive to light and accommodating. Extraocular muscles are intact. NECK: Neck is supple with no JVD or carotid bruit. CARDIOVASCULAR SYSTEM: Showed normal first and second heart sounds with no gallops or murmur. RESPIRATORY SYSTEM: Show good air entry on both sides of the lung with no abnormal breath sounds. GASTROINTESTINAL SYSTEM: Show abdomen to be full, soft, nontender with no organomegaly or rigidity. NEUROLOGICAL: Neuro exam shows no focal deficit. MUSCULOSKELETAL SYSTEM: There is no joint swelling or tenderness. DERMATOLOGICAL SYSTEM: Show no skin rash. GENITOURINARY SYSTEM: Showing no costovertebral angle tenderness. PERTINENT LABORATORY AND IMAGING STUDIES: The patient has CBC done with elevated white count of 14,500 with normal hemoglobin and normal hematocrit. CBC differential showing elevated monocyte count of 8.4, elevated neutrophil count of 86.1. The patient's coagulation study shows slightly elevated PT of 15.3. The patient's chemistry showed low sodium of 136, low chloride of 95.9 with elevated BUN of 42 and elevated creatinine of 9.1 consistent with the patient's end-stage renal disease, on dialysis. Rest of the patient's chemistry were unremarkable. Imaging studies; the patient had CT of the abdomen and pelvis done without contrast and it shows evidence of cholecystectomy and evidence of calcification in the kidneys as well as atrophy of the kidneys. The CT was read as showing no bowel obstruction, no evidence of colitis or enteritis and appendix was identified. However, the CT shows an advanced compression deformity of 10th thoracic vertebra and also there was deformity of the superior endplate of the 11th thoracic vertebra and the radiologist said that this could be due to degenerative change and said that diskitis/osteomyelitis is not excluded. There was no paraspinal or epidural abnormality identified. The patient also had a chest x-ray done that shows no active cardiopulmonary lesion. DIAGNOSES: 1. Coffee-ground emesis. 2. End-stage renal disease, on dialysis. 3. Fever. 4. Thoracic vertebral deformity. PLAN OF ACTION: 1. The patient will be admitted to telemetry. 2. The patient will have hemoglobin and hematocrit checked every 6 hours. 3. The patient will continue gastroenterology consult with Dr. Yamil Hardin requested by the Emergency Room physician. Also the patient will continue nephrology consult with Je Isaac for management of end-stage renal disease, on dialysis. 4. The patient will have orthopedic surgical consult with Stuart Smith because CT findings of thoracic vertebral deformity in 10th and 11th thoracic vertebrae. 5. The patient will remain n.p.o. until was seen by the Gastroenterology. 6. The patient will be on Tylenol 650 mg rectally every 4 hours for fever and headache and will be on IV Zofran 4 mg every 8 hours for nausea and vomiting. 7. The patient will also be on IV Protonix 40 mg q. 12 hours. 8. The patient will continue oxygen by nasal cannula 2L per minute. 9. The patient's DVT will be prevented by sequential compression devices. 10. The patient will be on IV ceftriaxone 1 gram daily for treatment of possible infection in the thoracic vertebral bone until reviewed by orthopedic surgeon. JOB# [id number] OCN/NTS MTDD
--- NOTE | 2018-11-05 09:38 | Gastroenterology Consultation ---
<JOVITA PABLO - Last Filed: 11/05/18 09:46> History of Present Illness - Reason for Consult Consult date: 11/05/18 GI bleed Requesting physician: KEV ABRAMS - History of Present Illness Patient is a 67 y/o female with PMH of ESRD on HD, HTN, CAD (stents x 2), CHF, DM, GERD, arthritis, kidney stones, high colesterol, anemia, TIA, div erticulitis, and s/p colostomy with reversal who presented to ED with c/o N/V with coffee-ground emesis with associated nontraumatic abdominal pain, malaise, fatigue, and generalized weakness. Upon admission, Abd CT showed deformity of the superior endplate of T11 but no acute process and H/H WNL (11.7/36.0), but found to have fever and is currently on empiric antibiotic therapy. GI has been consulted for GI bleed. This morning patient was sitting up in bed w/o acute distress. She states she is feeling better with no current abd pain and N/V now improved. Reports multiple episodes of vomiting yesterday with non-bloody emesis with initial episodes, then emesis became "dark" with subsequent episodes. No hematemesis, melena, or hematochezia. Denies CP, SOB, wt loss, dysphagia, diarrhea, or constipation. Takes Eliquis at home but no NSAIDs. No hx of PUD or liver disease. Patient is previously know to our service from previous hospitalizations/encounters. She has a hx of chronic abd pain with N/V and has undergone EGDs in 2016 and last in [address] Dodd on 01/02/2017 that showed possible mcintyre's esophagus and hiatal hernia, with bx results negative. Last colonoscopy also in 2017 for chronic functional diarrhea that showed s/p anastomosis in the recto-sigmoid junction but otherwise normal (ileum normal; bx negative). Past History Past Medical History: other (as per HPI) Past Surgical History: appendectomy, cholecystectomy, , hernia repair, tonsillectomy, bowel surgery (colostomy with reversal), Other (coronary stents x 2, AV fistula left arm, LITHOTRIPSY, LEFT BREAST LUMPECTOMY) Social history: denies: smoking, alcohol abuse Medications and Allergies Allergies Allergy/AdvReac Type Severity Reaction Status Date / Time aspirin AdvReac HEART Verified 01/23/17 16:26 FLUTTER Home Medications Medication Instructions Recorded Confirmed Last Taken Type AtorvaSTATin [Lipitor] 80 mg PO QHS #30 tablet 10/08/17 11/05/18 07/12/18 Rx Allopurinol [Zyloprim] 100 mg PO QDAY MDD 100 mg 01/01/18 11/05/18 07/12/18 History Apixaban [Eliquis] 5 mg PO BID MDD 10 mg 01/01/18 11/05/18 07/12/18 History Cinacalcet HCl [Sensipar] 60 mg PO DAILY MDD 60 mg 01/01/18 11/05/18 07/12/18 History ISOSORBIDE MONOnitrate [Imdur ER] 60 mg PO QDAY #30 tablet 01/05/18 11/05/18 07/12/18 Rx Dextran 70/Hypromellose/Pf 1 - 2 drop OP PRN PRN #1 droperette 04/21/18 11/05/18 07/12/18 Rx [Artificial Tears Drops 1%/0.3%] Metoprolol [Lopressor TAB] 25 mg BID 07/13/18 11/05/18 07/12/18 History Active Meds: Active Medications Acetaminophen (Tylenol) 650 mg PA Q4H PRN PRN Reason: Fever >101 Ceftriaxone Sodium (Rocephin/Ns 1 Gm/50 Ml) 1 gm in 50 mls @ 100 mls/hr IV Q24H ANNETTE; Protocol Ondansetron HCl (Zofran) 4 mg IV Q8H PRN PRN Reason: Nausea And Vomiting Pantoprazole Sodium (Protonix) 40 mg IV BID [facility] medications reviewed/updated as required Review of Systems - Review of Systems All systems: negative Gastrointestinal: nausea, vomiting, coffee ground emesis Exam - Constitutional Vital Signs: Temp Pulse Resp BP Pulse Ox 98.4 F 74 18 111/42 96 11/05/18 08:51 11/05/18 08:54 11/05/18 08:54 11/05/18 08:54 11/05/18 08:54 General appearance: no acute distress - EENT Eyes: PERRL, EOM intact ENT: hearing intact - Respiratory Respiratory: bilateral: CTA (anterior) - Cardiovascular Rhythm: regular Heart Sounds: Present: S1 & S2 - Gastrointestinal General gastrointestinal: Present: soft, non-tender, non-distended, normal bowel sounds - Neurologic Neurological: alert and oriented x3 - Labs CBC & Chem 7: 11/05/18 06:41 11/05/18 04:27 Lab Results: Laboratory Results - last 24 hr 11/05/18 11/05/18 11/05/18 04:27 04:27 04:27 WBC 14.5 H RBC 3.96 Hgb 12.1 Hct 37.1 MCV 94 MCH 31 MCHC 33 RDW 16.2 H Plt Count 175 Lymph % (Auto) 4.6 L [place] % (Auto) 8.4 H Eos % (Auto) 0.6 Baso % (Auto) 0.3 Lymph # 0.7 L [place] # 1.2 H Eos # 0.1 Baso # 0.0 Seg Neutrophils % 86.1 H Seg Neutrophils # 12.5 H PT 15.3 H INR 1.17 H APTT 21.5 L Sodium 136 L Potassium 4.8 Chloride 95.9 L Carbon Dioxide 24 Anion Gap 21 BUN 42 H Creatinine 9.1 H Estimated GFR 5 BUN/Creatinine Ratio 5 Glucose 124 H Lactic Acid Calcium 8.4 Magnesium 1.80 Influenza A (Rapid) Influenza B (Rapid) Blood Type Antibody Screen 11/05/18 11/05/18 11/05/18 04:27 04:50 05:30 WBC RBC Hgb Hct MCV MCH MCHC RDW Plt Count Lymph % (Auto) [place] % (Auto) Eos % (Auto) Baso % (Auto) Lymph # [place] # Eos # Baso # Seg Neutrophils % Seg Neutrophils # PT INR APTT Sodium Potassium Chloride Carbon Dioxide Anion Gap BUN Creatinine Estimated GFR BUN/Creatinine Ratio Glucose Lactic Acid 1.30 Calcium Magnesium Influenza A (Rapid) Negative Influenza B (Rapid) Negative Blood Type A POSITIVE Antibody Screen Negative 11/05/18 06:41 WBC RBC Hgb 11.7 Hct 36.0 MCV MCH MCHC RDW Plt Count Lymph % (Auto) [place] % (Auto) Eos % (Auto) Baso % (Auto) Lymph # [place] # Eos # Baso # Seg Neutrophils % Seg Neutrophils # PT INR APTT Sodium Potassium Chloride Carbon Dioxide Anion Gap BUN Creatinine Estimated GFR BUN/Creatinine Ratio Glucose Lactic Acid Calcium Magnesium Influenza A (Rapid) Influenza B (Rapid) Blood Type Antibody Screen Assessment and Plan 1.GI bleed? 2.coffee-ground emesis -abd CT w/o acute process -H/H WNL (11.7/36.0)-continue to monitor and transfuse as needed -patient reports multiple episodes of N/V yesterday with emesis non-bloody on initial episodes, then became "dark" in color with subsequent episodes. No hematemesis, melena, or hematochezia. -HD stable -clinically, patient reports feeling better this am w/o active signs of bleeding, no current abd pain and N/V now improved. -Patient has as hx of chronic abd pain with N/V with last EGD 12/[address] Dodd that showed possible mcintyre's esophagaus (bx negative) and hiatal hernia. -etiology-likely 2/2 M-W tear vs esophagitis vs other -recommend conservative management at this time with no plans for EGD given no clinical evidence of significant GI bleeding (will consider based on clinical course) -continue PPI -okay to start on clear liquids -continue supportive care -will follow <ALONZO KRUGER R - Last Filed: 11/06/18 15:57> Medications and Allergies Active Meds: Active Medications Acetaminophen (Tylenol) 650 mg PA Q4H PRN PRN Reason: Fever >101 Allopurinol (Zyloprim) 100 mg PO QDAY [facility] Last Admin: 11/06/18 15:45 Dose: 100 mg Documented by: Atorvastatin Calcium (Lipitor) 80 mg PO QHS [facility] Last Admin: 11/05/18 21:32 Dose: 80 mg Documented by: Cinacalcet (Sensipar) 60 mg PO QDAY [facility] Last Admin: 11/06/18 15:45 Dose: 60 mg Documented by: Ceftriaxone Sodium (Rocephin/Ns 1 Gm/50 Ml) 1 gm in 50 mls @ 100 mls/hr IV Q24H [facility]; Protocol Last Admin: 11/06/18 05:11 Dose: 100 mls/hr Documented by: Sodium Chloride (Nacl 0.9%) 100 mls @ 999 mls/hr IV ARGENIS PRN PRN Reason: Hypotension Isosorbide Mononitrate (Imdur) 60 mg PO QDAY [facility] Last Admin: 11/06/18 15:45 Dose: 60 mg Documented by: Metoprolol Tartrate (Lopressor) 25 mg PO BID [facility] Last Admin: 11/06/18 15:45 Dose: 25 mg Documented by: Ondansetron HCl (Zofran) 4 mg IV Q8H PRN PRN Reason: Nausea And Vomiting Pantoprazole Sodium (Protonix) 40 mg PO BID [facility] Last Admin: 11/06/18 15:45 Dose: 40 mg Documented by: Exam - Constitutional Vital Signs: Temp Pulse Resp BP Pulse Ox 98.6 F 74 16 144/60 96 11/06/18 13:30 11/06/18 15:45 11/06/18 13:30 11/06/18 13:30 11/06/18 07:54 - Labs CBC & Chem 7: 11/05/18 12:20 11/05/18 04:27 Lab Results: Laboratory Results - last 24 hr 11/05/18 11/05/18 11/06/18 18:30 20:45 05:06 POC Glucose 164 H 87 85 Assessment and Plan Pt seen and examined. Likely cough-induced emesis resulting in M-W tear.
[2018-11-05] MEDS: PROTONIX IV SCH ×2 (10:20→21:32)
[2018-11-05 12:47] LABS: Hematocrit 34.8 % (30.3-42.9); Hemoglobin 11.1 gm/dl (10.1-14.3)
[2018-11-05] MEDS ORDERED: NACL 0.9% 100 ML IV PRN (12:52)
--- NOTE | 2018-11-05 12:52 | Consultation ---
History of Present Illness - Reason for Consult Consult date: 11/05/18 end stage renal disease Requesting physician: JUSTIN ARZATE - History of Present Illness Patient is a 67 y/o female with PMH of ESRD on HD, HTN, CAD (stents x 2), CHF, DM, GERD, arthritis, high colesterol, anemia, TIA, diverticulitis, and s/p colostomy with reversal who presented to ED with c/o N/V with coffee-ground emesis with associated nontraumatic abdominal pain, malaise, fatigue, and gener alized weakness. Upon admission, Abd CT showed deformity of the superior endplate of T11 but no acute process and H/H WNL (11.7/36.0), but found to have fever and is currently on empiric antibiotic therapy. She states she is feeling better with no current abd pain and N/V now improved. Reports multiple episodes of vomiting yesterday with non-bloody emesis with initial episodes, then emesis became "dark" with subsequent episodes. No hematemesis, melena, or hematochezia. Denies CP, SOB, wt loss, dysphagia, diarrhea, or constipation. Takes Eliquis at home but no NSAIDs. No hx of PUD or liver disease. She undergoes hemodialysis at [facility] on TTS schedule. She did complete her dialysis treatment yesterday. Patient denies any shortness of breath. Past History Past Medical History: CAD, diabetes, dialysis, hypertension, stroke Past Surgical History: appendectomy, cholecystectomy, , hernia repair, tonsillectomy, bowel surgery (colostomy with reversal), Other (coronary stents x 2, AV fistula left arm, LITHOTRIPSY, LEFT BREAST LUMPECTOMY) Social history: denies: smoking, alcohol abuse Medications and Allergies Allergies Allergy/AdvReac Type Severity Reaction Status Date / Time aspirin AdvReac HEART Verified 01/23/17 16:26 FLUTTER Home Medications Medication Instructions Recorded Confirmed Last Taken Type AtorvaSTATin [Lipitor] 80 mg PO QHS #30 tablet 10/08/17 11/05/18 07/12/18 Rx Allopurinol [Zyloprim] 100 mg PO QDAY MDD 100 mg 01/01/18 11/05/18 07/12/18 History Apixaban [Eliquis] 5 mg PO BID MDD 10 mg 01/01/18 11/05/18 07/12/18 History Cinacalcet HCl [Sensipar] 60 mg PO DAILY MDD 60 mg 01/01/18 11/05/18 07/12/18 History ISOSORBIDE MONOnitrate [Imdur ER] 60 mg PO QDAY #30 tablet 01/05/18 11/05/18 07/12/18 Rx Dextran 70/Hypromellose/Pf 1 - 2 drop OP PRN PRN #1 droperette 04/21/18 11/05/18 07/12/18 Rx [Artificial Tears Drops 1%/0.3%] Metoprolol [Lopressor TAB] 25 mg BID 07/13/18 11/05/18 07/12/18 History Active Meds: Active Medications Acetaminophen (Tylenol) 650 mg GA Q4H PRN PRN Reason: Fever >101 Ceftriaxone Sodium (Rocephin/Ns 1 Gm/50 Ml) 1 gm in 50 mls @ 100 mls/hr IV Q24H ANNETTE; Protocol Ondansetron HCl (Zofran) 4 mg IV Q8H PRN PRN Reason: Nausea And Vomiting Pantoprazole Sodium (Protonix) 40 mg IV BID [facility] Last Admin: 11/05/18 10:20 Dose: 40 mg Documented by: Review of Systems All systems: negative (negative except as noted above) Exam - Vital Signs Vital signs: Vital Signs Temp Pulse Resp BP Pulse Ox 100.6 F H 95 H 24 152/62 97 11/05/18 03:45 11/05/18 03:45 11/05/18 03:45 11/05/18 03:45 11/05/18 03:45 - General Appearance General appearance: well-developed, well-nourished, appears stated age EENT: PERRL, mucous membranes moist Neck: Present: neck supple, trachea midline. Absent: JVD/HJR, Masses Respiratory: Clear to Ascultation Heart: regular, normal heart rate, S1S2, no murmurs Gastrointestinal: Present: normal, normoactive bowel sounds Integumentary: other (AV fistula left upper arm. Good bruit and thrill) Results - Lab Results 11/05/18 06:41 11/05/18 04:27 Most recent lab results Calcium 8.4 mg/dL (8.4-10.2) 11/05/18 04:27 Magnesium 1.80 mg/dL (1.7-2.3) 11/05/18 04:27 Assessment and Plan Impression * End-stage renal disease on maintenance hemodialysis * Hematemesis * nausea and vomiting * Hypertension * Diabetes * Coronary artery disease * History of CVA * Anemia Recommendations * Arrange for hemodialysis for tomorrow and keep her on TTS schedule as outpatient * No heparin with dialysis * Hold phosphate binders for now * Procrit with dialysis per protocol * Adjust diet and meds for ESRD state * No IV, BP or venipuncture access arm * Further plan as per GI services * Thank you very much for the consultation. Shall follow along with you
--- NOTE | 2018-11-05 16:25 | Progress Note ---
Assessment and Plan Assessment and plan: --Upper GI bleeding/coffee-ground emesis; Hemodynamically stable, no new episodes since admission GI evaluated the patient, supportive care --End-stage renal disease/on hemodialysis Nephrology following, HD per schedule --Hypertension; moderate control Continue current antihypertensives and when necessary medications --Dyslipidemia; continue statin --history of gout; on allopurinol --DVT prophylaxis; SCDs No pharmacologic anticoagulation in view of GI bleeding --Obesity; patient needs weight reduction when medically stable --Full CODE STATUS Closely monitor the patient and adjust management as needed Advanced care 31 minutes History Interval history: Patient seen and examined medical records reviewed Admitted with coffee-ground emesis nausea and vomiting Patient has no new episodes of hematemesis Complaints of generalized weakness Alert awake not in acute distress Vital signs reviewed Hospitalist Physical - Constitutional Vitals: Temp Pulse Resp BP Pulse Ox 98.9 F 75 18 114/49 97 11/05/18 11:46 11/05/18 11:47 11/05/18 11:47 11/05/18 11:47 11/05/18 11:47 General appearance: Present: no acute distress, well-nourished, obese - EENT Eyes: Present: PERRL, EOM intact - Neck Neck: Present: supple, normal ROM - Respiratory Respiratory effort: normal Respiratory: bilateral: diminished, negative: rales, rhonchi, wheezing - Cardiovascular Rhythm: regular Heart Sounds: Present: S1 & S2 - Extremities Extremities: no ischemia, No edema - Abdominal General gastrointestinal: soft, non-tender, non-distended, normal bowel sounds - Integumentary Integumentary: Present: clear, warm - Psychiatric Psychiatric: appropriate mood/affect, cooperative - Neurologic Neurologic: CNII-XII intact, moves all extremities Results - Labs CBC & Chem 7: 11/05/18 12:20 11/05/18 04:27 Labs: Laboratory Last Values WBC 14.5 K/mm3 (4.5-11.0) H 11/05/18 04:27 RBC 3.96 M/mm3 (3.65-5.03) 11/05/18 04:27 Hgb 11.1 gm/dl (10.1-14.3) 11/05/18 12:20 Hct 34.8 % (30.3-42.9) 11/05/18 12:20 MCV 94 fl (79-97) 11/05/18 04:27 MCH 31 pg (28-32) 11/05/18 04:27 MCHC 33 % (30-34) 11/05/18 04:27 RDW 16.2 % (13.2-15.2) H 11/05/18 04:27 Plt Count 175 K/mm3 (140-440) 11/05/18 04:27 Lymph % (Auto) 4.6 % (13.4-35.0) L 11/05/18 04:27 [place] % (Auto) 8.4 % (0.0-7.3) H 11/05/18 04:27 Eos % (Auto) 0.6 % (0.0-4.3) 11/05/18 04:27 Baso % (Auto) 0.3 % (0.0-1.8) 11/05/18 04:27 Lymph # 0.7 K/mm3 (1.2-5.4) L 11/05/18 04:27 [place] # 1.2 K/mm3 (0.0-0.8) H 11/05/18 04:27 Eos # 0.1 K/mm3 (0.0-0.4) 11/05/18 04:27 Baso # 0.0 K/mm3 (0.0-0.1) 11/05/18 04:27 Seg Neutrophils % 86.1 % (40.0-70.0) H 11/05/18 04:27 Seg Neutrophils # 12.5 K/mm3 (1.8-7.7) H 11/05/18 04:27 PT 15.3 Sec. (12.2-14.9) H 11/05/18 04:27 INR 1.17 (0.87-1.13) H 11/05/18 04:27 APTT 21.5 Sec. (24.2-36.6) L 11/05/18 04:27 Sodium 136 mmol/L (137-145) L 11/05/18 04:27 Potassium 4.8 mmol/L (3.6-5.0) 11/05/18 04:27 Chloride 95.9 mmol/L (98-107) L 11/05/18 04:27 Carbon Dioxide 24 mmol/L (22-30) 11/05/18 04:27 Anion Gap 21 mmol/L 11/05/18 04:27 BUN 42 mg/dL (7-17) H 11/05/18 04:27 Creatinine 9.1 mg/dL (0.7-1.2) H 11/05/18 04:27 Estimated GFR 5 ml/min 11/05/18 04:27 BUN/Creatinine Ratio 5 % 11/05/18 04:27 Glucose 124 mg/dL (65-100) H 11/05/18 04:27 POC Glucose 101 (70-105) 11/05/18 11:53 Lactic Acid 1.30 mmol/L (0.7-2.0) 11/05/18 04:50 Calcium 8.4 mg/dL (8.4-10.2) 11/05/18 04:27 Magnesium 1.80 mg/dL (1.7-2.3) 11/05/18 04:27 Influenza A (Rapid) Negative (Negative) 11/05/18 05:30 Influenza B (Rapid) Negative (Negative) 11/05/18 05:30 Blood Type A POSITIVE 11/05/18 04:27 Antibody Screen Negative 11/05/18 04:27
[2018-11-05] MEDS: LOPRESSOR PO SCH (21:32)
[2018-11-06] MEDS: ROCEPHIN/NS 1 GM/50 ML 1 GM/50 ML BAG IV SCH (05:11)
--- NOTE | 2018-11-06 09:13 | Progress Note ---
Assessment and Plan Impression * End-stage renal disease on maintenance hemodialysis * Hematemesis * Nausea/vomiting * Hypertension * Type II Dm * Coronary artery disease * History of CVA Recommendations * Hemodialysis TTS; UF as tolerated * No heparin with dialysis * GI recommendations noted * Hold phosphate binders for now * Procrit with dialysis per protocol * Adjust diet and meds for ESRD state * No IV, BP or venipuncture access arm Subjective Date of service: 11/06/18 Interval history: No acute events overnight Objective - Vital Signs Vital signs: Vital Signs - 12hr 11/05/18 11/05/18 11/06/18 21:32 23:25 04:00 Temperature 98.2 F Pulse Rate 70 60 61 Respiratory 18 Rate Blood Pressure 140/53 138/55 O2 Sat by Pulse 99 Oximetry 11/06/18 11/06/18 11/06/18 05:00 07:52 07:54 Temperature 98.1 F 98.0 F Pulse Rate 63 64 61 Respiratory 18 18 Rate Blood Pressure 130/47 138/50 O2 Sat by Pulse 97 96 Oximetry - General Appearance General appearance: well-developed, well-nourished EENT: ATNC Respiratory: Present: Clear to Ascultation Cardiology: regular, S1S2 Gastrointestinal: normal, no tenderness, no distended Integumentary: warm and dry Psychiatric: cooperative - Lab 11/05/18 12:20 11/05/18 04:27 Most recent lab results Calcium 8.4 mg/dL (8.4-10.2) 11/05/18 04:27 Magnesium 1.80 mg/dL (1.7-2.3) 11/05/18 04:27 Medications & Allergies - Medications Allergies/Adverse Reactions: Allergies aspirin Adverse Reaction (Verified 01/23/17 16:26) HEART FLUTTER Home Medications: Home Medications Medication Instructions Recorded Confirmed Last Taken Type AtorvaSTATin [Lipitor] 80 mg PO QHS #30 tablet 10/08/17 11/05/18 07/12/18 Rx Allopurinol [Zyloprim] 100 mg PO QDAY MDD 100 mg 01/01/18 11/05/18 07/12/18 H istory Apixaban [Eliquis] 5 mg PO BID MDD 10 mg 01/01/18 11/05/18 07/12/18 History Cinacalcet HCl [Sensipar] 60 mg PO DAILY MDD 60 mg 01/01/18 11/05/18 07/12/18 History ISOSORBIDE MONOnitrate [Imdur ER] 60 mg PO QDAY #30 tablet 01/05/18 11/05/18 07/12/18 Rx Dextran 70/Hypromellose/Pf 1 - 2 drop OP PRN PRN #1 droperette 04/21/18 11/05/18 07/12/18 Rx [Artificial Tears Drops 1%/0.3%] Metoprolol [Lopressor TAB] 25 mg BID 07/13/18 11/05/18 07/12/18 History Active Medications: Generic Name Dose Route Start Last Admin Trade Name Freq PRN Reason Stop Dose Admin Acetaminophen 650 mg 11/05/18 06:03 Tylenol [place] Q4H PRN Fever >101 Allopurinol 100 mg 11/06/18 10:00 Zyloprim PO QDAY ANNETTE Atorvastatin Calcium 80 mg 11/05/18 22:00 11/05/18 21:32 Lipitor PO 80 mg QHS ANNETTE Administration Cinacalcet 60 mg 11/06/18 10:00 Sensipar PO QDAY ANNETTE Ceftriaxone Sodium 1 gm in 50 mls @ 100 mls/hr 11/06/18 06:00 11/06/18 05:11 Rocephin/Ns 1 Gm/50 Ml IV 100 mls/hr Q24H ANNETTE Administration Protocol Sodium Chloride 100 mls @ 999 mls/hr 11/05/18 12:52 Nacl 0.9% IV ARGENIS PRN Hypotension Isosorbide Mononitrate 60 mg 11/06/18 10:00 Imdur PO QDAY ANNTETE Metoprolol Tartrate 25 mg 11/05/18 22:00 11/05/18 21:32 Lopressor PO 25 mg BID ANNETTE Administration Ondansetron HCl 4 mg 11/05/18 06:03 Zofran IV Q8H PRN Nausea And Vomiting Pantoprazole Sodium 40 mg 11/05/18 10:00 11/05/18 21:32 Protonix IV 40 mg BID ANNETTE Administration
[2018-11-06] MEDS ORDERED: NON-FORMULARY (Cinacalcet Hcl [Sensipar] 60 MG) PO SCH (10:00)
[2018-11-06] MEDS ORDERED: NACL 0.9 (PRIMING MACHINE ONLY DIALYSIS) MC ONE (10:32)
--- NOTE | 2018-11-06 11:47 | Gastroenterology Progress Note ---
<JOVITA PABLO - Last Filed: 11/06/18 11:48> Assessment and Plan 1.GI bleed? 2.coffee-ground emesis -abd CT w/o acute process -H/H WNL (11.1/34.8)-stable -continue to monitor and transfuse as needed -no active signs of bleeding -Patient has as hx of chronic abd pain with N/V with last EGD 12/[address] Dodd that showed possible mcintyre's esophagaus (bx negative) and hiatal hernia. -etiology-likely 2/2 M-W tear vs esophagitis vs other -clinically patient is stable. Denies abd pain or N/V. -no plans for scope given no clinical evidence of significant GI bleeding- continue conservative management -advance diet as tolerated -continue PPI and supportive care -patient okay to be d/c per GI standpoint on PPI with f/u in clinic -will sign off, please call if needed Subjective Date of service: 11/06/18 Principal diagnosis: GI bleed Interval history: No active signs of GI bleeding overnight or this am. Denies abd pain or N/V. Objective - Constitutional Vitals: Temp Pulse Resp BP Pulse Ox 98.2 F 71 18 142/67 96 11/06/18 09:40 11/06/18 11:30 11/06/18 09:40 11/06/18 11:30 11/06/18 07:54 General appearance: no acute distress - Respiratory Respiratory: bilateral: CTA (anterior) - Cardiovascular Rhythm: regular - Gastrointestinal General gastrointestinal: Present: soft, non-tender, non-distended, normal bowel sounds - Neurologic Neurological: alert and oriented x3 - Labs CBC & Chem 7: 11/05/18 12:20 11/05/18 04:27 Labs: Laboratory Results - last 24 hr 11/05/18 11/05/18 11/05/18 11:53 12:20 18:30 Hgb 11.1 Hct 34.8 POC Glucose 101 164 H 11/05/18 11/06/18 20:45 05:06 Hgb Hct POC Glucose 87 85 <ALONZO KRUGER - Last Filed: 11/06/18 15:56> Assessment and Plan Pt was well until 2/ night, when she developed acute cough, followed by N/V. Initially, emesis white and foamy, and then turned darker as time went on. None since yesterday. Has abd soreness. Imp - likely has Kassandra-Lopez tear from coughing, which caused her to retch and vomit. Doubt other GI pathology. Recommendations as noted. Objective - Constitutional Vitals: Temp Pulse Resp BP Pulse Ox 98.6 F 74 16 144/60 96 11/06/18 13:30 11/06/18 15:45 11/06/18 13:30 11/06/18 13:30 11/06/18 07:54 - Labs CBC & Chem 7: 11/05/18 12:20 11/05/18 04:27 Labs: Laboratory Results - last 24 hr 11/05/18 11/05/18 11/06/18 18:30 20:45 05:06 POC Glucose 164 H 87 85
--- NOTE | 2018-11-06 11:57 | Progress Note ---
Assessment and Plan Assessment and plan: --End-stage renal disease/on hemodialysis Nephrology following, HD per schedule --Upper GI bleeding/coffee-ground emesis; Hemodynamically stable, no new episodes since admission GI evaluated the patient, nor plans of endoscopy --Hypertension; moderate control Continue current antihypertensives and when necessary medications --Dyslipidemia; continue statin --history of gout; on allopurinol --DVT prophylaxis; SCDs No pharmacologic anticoagulation in view of GI bleeding --Obesity; patient needs weight reduction when medically stable --Full CODE STATUS Closely monitor the patient and adjust management as needed Possible discharge in 1-2 days if stable History Interval history: Patient seen and examined medical records reviewed No new events reported by the nursing staff Admitted with hematemesis No new episodes of hematemesis since admission vital signs noted Hospitalist Physical - Constitutional Vitals: Temp Pulse Resp BP Pulse Ox 98.2 F 63 18 138/62 96 11/06/18 09:40 11/06/18 11:15 11/06/18 09:40 11/06/18 11:15 11/06/18 07:54 General appearance: Present: no acute distress, well-nourished, obese - EENT Eyes: Present: PERRL, EOM intact - Neck Neck: Present: supple, normal ROM - Respiratory Respiratory effort: normal Respiratory: bilateral: diminished, negative: rales, rhonchi, wheezing - Cardiovascular Rhythm: regular Heart Sounds: Present: S1 & S2 - Extremities Extremities: no ischemia, No edema - Abdominal General gastrointestinal: soft, non-tender, non-distended, normal bowel sounds - Integumentary Integumentary: Present: clear, warm - Psychiatric Psychiatric: appropriate mood/affect - Neurologic Neurologic: CNII-XII intact, moves all extremities Results - Labs CBC & Chem 7: 11/05/18 12:20 11/05/18 04:27 Labs: Laboratory Last Values WBC 14.5 K/mm3 (4.5-11.0) H 11/05/18 04:27 RBC 3.96 M/mm3 (3.65-5.03) 11/05/18 04:27 Hgb 11.1 gm/dl (10.1-14.3) 11/05/18 12:20 Hct 34.8 % (30.3-42.9) 11/05/18 12:20 MCV 94 fl (79-97) 11/05/18 04:27 MCH 31 pg (28-32) 11/05/18 04:27 MCHC 33 % (30-34) 11/05/18 04:27 RDW 16.2 % (13.2-15.2) H 11/05/18 04:27 Plt Count 175 K/mm3 (140-440) 11/05/18 04:27 Lymph % (Auto) 4.6 % (13.4-35.0) L 11/05/18 04:27 [place] % (Auto) 8.4 % (0.0-7.3) H 11/05/18 04:27 Eos % (Auto) 0.6 % (0.0-4.3) 11/05/18 04:27 Baso % (Auto) 0.3 % (0.0-1.8) 11/05/18 04:27 Lymph # 0.7 K/mm3 (1.2-5.4) L 11/05/18 04:27 [place] # 1.2 K/mm3 (0.0-0.8) H 11/05/18 04:27 Eos # 0.1 K/mm3 (0.0-0.4) 11/05/18 04:27 Baso # 0.0 K/mm3 (0.0-0.1) 11/05/18 04:27 Seg Neutrophils % 86.1 % (40.0-70.0) H 11/05/18 04:27 Seg Neutrophils # 12.5 K/mm3 (1.8-7.7) H 11/05/18 04:27 PT 15.3 Sec. (12.2-14.9) H 11/05/18 04:27 INR 1.17 (0.87-1.13) H 11/05/18 04:27 APTT 21.5 Sec. (24.2-36.6) L 11/05/18 04:27 Sodium 136 mmol/L (137-145) L 11/05/18 04:27 Potassium 4.8 mmol/L (3.6-5.0) 11/05/18 04:27 Chloride 95.9 mmol/L (98-107) L 11/05/18 04:27 Carbon Dioxide 24 mmol/L (22-30) 11/05/18 04:27 Anion Gap 21 mmol/L 11/05/18 04:27 BUN 42 mg/dL (7-17) H 11/05/18 04:27 Creatinine 9.1 mg/dL (0.7-1.2) H 11/05/18 04:27 Estimated GFR 5 ml/min 11/05/18 04:27 BUN/Creatinine Ratio 5 % 11/05/18 04:27 Glucose 124 mg/dL (65-100) H 11/05/18 04:27 POC Glucose 85 (70-105) 11/06/18 05:06 Lactic Acid 1.30 mmol/L (0.7-2.0) 11/05/18 04:50 Calcium 8.4 mg/dL (8.4-10.2) 11/05/18 04:27 Magnesium 1.80 mg/dL (1.7-2.3) 11/05/18 04:27 Influenza A (Rapid) Negative (Negative) 11/05/18 05:30 Influenza B (Rapid) Negative (Negative) 11/05/18 05:30 Blood Type A POSITIVE 11/05/18 04:27 Antibody Screen Negative 11/05/18 04:27
[2018-11-06] MEDS: PROTONIX PO SCH ×2 (15:45→21:35)
[2018-11-06] MEDS: SENSIPAR PO SCH (15:45)
[2018-11-06] MEDS: LOPRESSOR PO SCH ×2 (15:45→21:36)
[2018-11-06] MEDS: ZYLOPRIM PO SCH (15:45)
[2018-11-06] MEDS: IMDUR PO SCH (15:45)
[2018-11-07] MEDS: ROCEPHIN/NS 1 GM/50 ML 1 GM/50 ML BAG IV SCH (05:29)
--- NOTE | 2018-11-07 09:10 | Progress Note ---
Assessment and Plan Impression * End-stage renal disease on maintenance hemodialysis * Hematemesis * Nausea/vomiting * Hypertension * Type II Dm * Coronary artery disease * History of CVA Recommendations * AM labs ordered * Hemodialysis TTS; UF as tolerated * No heparin with dialysis * GI recommendations noted * Hold phosphate binders for now * Procrit with dialysis TIW prn * Adjust diet and meds for ESRD state * No IV, BP or venipuncture access arm Subjective Date of service: 11/07/18 Principal diagnosis: GI bleed Interval history: Patient reports that she has been "coughing up blood"; sputum visualized - clear w/ streaks of blood; no manju blood Objective - Vital Signs Vital signs: Vital Signs - 12hr 11/06/18 11/07/18 11/07/18 21:36 00:02 04:00 Temperature 98.6 F Pulse Rate 74 76 Respiratory 18 Rate Blood Pressure 126/53 Blood Pressure [Right] O2 Sat by Pulse 96 93 Oximetry 11/07/18 11/07/18 04:41 08:00 Temperature 98.7 F 99.3 F Pulse Rate 78 73 Respiratory 18 18 Rate Blood Pressure 128/58 Blood Pressure 125/54 [Right] O2 Sat by Pulse 95 Oximetry - General Appearance General appearance: well-developed, well-nourished EENT: ATNC Respiratory: Present: Clear to Ascultation Cardiology: regular, S1S2 Gastrointestinal: normal, no tenderness, no distended Integumentary: warm and dry Neurologic: no focal deficit, alert and oriented x3 Musculoskeletal: other (no edema) Psychiatric: cooperative - Lab 11/05/18 12:20 11/05/18 04:27 Most recent lab results Calcium 8.4 mg/dL (8.4-10.2) 11/05/18 04:27 Magnesium 1.80 mg/dL (1.7-2.3) 11/05/18 04:27 Medications & Allergies - Medications Allergies/Adverse Reactions: Allergies aspirin Adverse Reaction (Verified 01/23/17 16:26) HEART FLUTTER Home Medications: Home Medications Medication Instructions Recorded Confirmed Last Taken Type AtorvaSTATin [Lipitor] 80 mg PO QHS #30 tablet 10/08/17 11/05/18 07/12/18 Rx Allopurinol [Zyloprim] 100 mg PO QDAY MDD 100 mg 01/01/18 11/05/18 07/12/18 History Apixaban [Eliquis] 5 mg PO BID MDD 10 mg 01/01/18 11/05/18 07/12/18 History Cinacalcet HCl [Sensipar] 60 mg PO DAILY MDD 60 mg 01/01/18 11/05/18 07/12/18 History ISOSORBIDE MONOnitrate [Imdur ER] 60 mg PO QDAY #30 tablet 01/05/18 11/05/18 07/12/18 Rx Dextran 70/Hypromellose/Pf 1 - 2 drop OP PRN PRN #1 droperette 04/21/18 11/05/18 07/12/18 Rx [Artificial Tears Drops 1%/0.3%] Metoprolol [Lopressor TAB] 25 mg BID 07/13/18 11/05/18 07/12/18 History Active Medications: Generic Name Dose Route Start Last Admin Trade Name Freq PRN Reason Stop Dose Admin Acetaminophen 650 mg 11/05/18 06:03 Tylenol DE Q4H PRN Fever >101 Allopurinol 100 mg 11/06/18 10:00 11/06/18 15:45 Zyloprim PO 100 mg QDAY ANNETTE Administration Atorvastatin Calcium 80 mg 11/05/18 22:00 11/06/18 21:35 Lipitor PO 80 mg QHS ANNETTE Administration Cinacalcet 60 mg 11/06/18 10:00 11/06/18 15:45 Sensipar PO 60 mg QDAY ANNETTE Administration Ceftriaxone Sodium 1 gm in 50 mls @ 100 mls/hr 11/06/18 06:00 11/07/18 05:29 Rocephin/Ns 1 Gm/50 Ml IV 100 mls/hr Q24H ANNETTE Administration Protocol Sodium Chloride 100 mls @ 999 mls/hr 11/05/18 12:52 Nacl 0.9% IV ARGENIS PRN Hypotension Isosorbide Mononitrate 60 mg 11/06/18 10:00 11/06/18 15:45 Imdur PO 60 mg QDAY ANNETTE Administration Metoprolol Tartrate 25 mg 11/05/18 22:00 11/06/18 21:36 Lopressor PO Not Given BID [facility] Ondansetron HCl 4 mg 11/05/18 06:03 Zofran IV Q8H PRN Nausea And Vomiting Pantoprazole Sodium 40 mg 11/06/18 12:00 11/06/18 21:35 Protonix PO 40 mg BID ANNETTE Administration
[2018-11-07 10:14] LABS: Basophils # (Auto) 0.1 K/mm3 (0.0-0.1); Basophils % (Auto) 0.6 % (0.0-1.8); Eosinophils # (Auto) 0.3 K/mm3 (0.0-0.4); Eosinophils % (Auto) 2.9 % (0.0-4.3); Hemoglobin 10.7 gm/dl (10.1-14.3); Lymphocytes # (Auto) 1.1 K/mm3 (1.2-5.4); Lymphocytes % (Auto) 12.8 % (13.4-35.0); Mean Corpuscular HGB Conc 32 % (30-34); Mean Corpuscular Volume 95 fl (79-97); Monocytes % (Auto) 11.9 % (0.0-7.3); Platelet Count 159 K/mm3 (140-440); Red Blood Count 3.48 M/mm3 (3.65-5.03); Red Cell Distribution Width 16.5 % (13.2-15.2)
[2018-11-07 10:29] LABS: Calcium 8.1 mg/dL (8.4-10.2)
[2018-11-07] MEDS: SENSIPAR PO SCH (11:26)
[2018-11-07] MEDS: ZYLOPRIM PO SCH (11:26)
[2018-11-07] MEDS: IMDUR PO SCH (11:26)
[2018-11-07] MEDS: PROTONIX PO SCH (11:26)
[2018-11-07] MEDS: LOPRESSOR PO SCH (11:26)
[2018-11-07 11:48] VITALS: BP 114/47
--- NOTE | 2018-11-07 12:31 | Discharge Summary ---
Providers - Providers Date of Admission: 11/05/18 05:10 Date of discharge: 11/07/18 Attending physician: JUSTIN ARZATE 11/05/18 03:32 Consult to Physician [CONS] Stat Comment: Consulting Provider: MILEY SMALLS Physician Instructions: Reason For Exam: gi bleed 11/05/18 03:38 Consult to Physician [CONS] Urgent Comment: Consulting Provider: CIRILO CONNORS Physician Instructions: Reason For Exam: esrd 11/05/18 06:06 Consult to Physician [CONS] Routine Comment: Consulting Provider: LUKE COX Physician Instructions: Reason For Exam: THORACIC VERTEBRAL DEFORMITY Primary care physician: SANDY STACY Hospitalization Reason for admission: coffee ground emesis Condition: Fair Pertinent studies: CT abdomen and pelvis; cholecystectomy appendix not identified , advanced compression deformity at T10 degenerative change , discitis osteomyelitis is not excluded Chest x-ray; no acute abnormality Hospital course: 67-year-old female patient with significant past medical history of hypertension coronary artery disease congestive heart failure and diabetes mellitus GERD end-stage renal disease on dialysis was admitted through emergency room with coffee-ground emesis fever and abdominal discomfort, Was admitted symptomatically managed, evaluated by GI, recom medical management, no plans of endoscopy She was also evaluated by nephrology, received hemodialysis per schedule Symptoms significantly improved no new episodes of hematemesis Cleared by GI and nephrology for discharge and follow-up with them per schedule Patient is hemodynamically and clinically stable at discharge, Discharge diagnosis; --End-stage renal disease/on hemodialysis Nephrology following, HD per schedule --Upper GI bleeding/coffee-ground emesis; Hemodynamically stable, no new episodes since admission GI evaluated the patient, nor plans of endoscopy, follow outpatient --Hypertension; moderate control Continue current antihypertensives and when necessary medications --Dyslipidemia; continue statin --history of gout; on allopurinol Disposition: - TO HOME OR SELFCARE Time spent for discharge: 32 min Core Measure Documentation - Palliative Care Palliative Care/ Comfort Measures: Not Applicable - Core Measures Any of the following diagnoses?: none Exam - Constitutional Vitals: Temp Pulse Resp BP Pulse Ox 98.6 F 73 18 114/47 97 11/07/18 11:46 11/07/18 11:47 11/07/18 11:46 11/07/18 11:46 11/07/18 11:47 General appearance: Present: no acute distress, well-nourished - EENT Eyes: Present: PERRL, EOM intact - Neck Neck: Present: supple, normal ROM - Respiratory Respiratory effort: normal Respiratory: bilateral: diminished, negative: rales, rhonchi, wheezing - Cardiovascular Rhythm: regular Heart Sounds: Present: S1 & S2 - Extremities Extremities: no ischemia, No edema - Abdominal General gastrointestinal: Present: soft, non-tender, non-distended, normal bowel sounds - Integumentary Integumentary: Present: clear, warm - Musculoskeletal Musculoskeletal: strength equal bilaterally - Psychiatric Psychiatric: appropriate mood/affect, cooperative - Neurologic Neurologic: CNII-XII intact, moves all extremities Plan Activity: advance as tolerated, fall precautions Diet: renal Additional Instructions: f/u renal and HD per schedule [ TTS ]. If you notice bleeding stop Eliquis and contact MD Follow up with: SANDY STACY MD [Primary Care Provider] - 3-5 Days LUKE COX MD [Staff Physician] - 7 Days ALONZO KRUGER MD [Staff Physician] - 7 Days NAOMY MARIE MD [Staff Physician] - 7 Days Prescriptions: Azithromycin [Zithromax Z-FITO] 0 mg PO DAILY #1 tab Benzonatate [Tessalon Perles] 100 mg PO Q8HR PRN #15 capsule PRN Reason: Cough Pantoprazole [Protonix TAB] 40 mg PO BID #30 tablet
== END 2018-11-07 19:22 | disposition home or self-care (01) | DRG 377 ==
LOC: ED 03:07 → 4A 05:10 → UNDODISIN 11-07 13:36
PROVIDERS: ADMIT Internal Medicine; ATTEND Internal Medicine
PROC: 5A1D70Z Performance of Urinary Filtration, Intermittent, Less than 6 Hours Per Day (ICD-10-PCS; principal; 2018-11-06)
DX: K92.0 Hematemesis (principal); N18.6 End stage renal disease; I13.2 Hypertensive heart and chronic kidney disease with heart failure and with stage 5 chronic kidney disease, or end stage renal disease; I25.10 Atherosclerotic heart disease of native coronary artery without angina pectoris; I50.9 Heart failure, unspecified; E11.22 Type 2 diabetes mellitus with diabetic chronic kidney disease; K21.9 Gastro-esophageal reflux disease without esophagitis; E78.00 Pure hypercholesterolemia, unspecified; Z99.2 Dependence on renal dialysis; Z90.49 Acquired absence of other specified parts of digestive tract; I25.2 Old myocardial infarction; Z95.828 Presence of other vascular implants and grafts; Z88.6 Allergy status to analgesic agent; Z95.5 Presence of coronary angioplasty implant and graft; Z90.89 Acquired absence of other organs; Z87.442 Personal history of urinary calculi; Z79.4 Long term (current) use of insulin
CPT/HCPCS: 36415; 71045; 74176; 80048; 82140; 82962; 83735; 85014; 85018; 85025; 85610; 85730; 86850; 86900; 86901; 87040; 87400; 93005; 93010; 96365; 96367; 96375; G0378; A9270-GY; C9113; J0696; J2405; J2597; J7030

== ENCOUNTER 2018-12-11 11:22 | Inpatient (IN) | payer MEDICARE ==
--- NOTE | 2018-12-11 12:11 | Emergency Department Report ---
ED Shortness of Breath HPI - General Chief Complaint: Dyspnea/Respdistress Stated Complaint: SOB Time Seen by Provider: 12/11/18 11:58 Source: EMS, old records reviewed Mode of arrival: Ambulatory Limitations: Physical Limitation - History of Present Illness Initial Comments: 67-year-old female with a past medical history of end-stage renal disease on d saturday, , and Saturday, CHF, CAD with stent 2 and multiple other chronic conditions and previous surgeries (see triage) presents to the hospital with complaints of shortness of breath since last night. Shows a breathless noted to be increased today when transferring from bed in preparation to go to dialysis. Consider going to dialysis patient comes to the hospital. The patient coughed and noted patient states she has had a productive cough for at least one week. She denies fever, chest pain,vomiting, or diaphoresis. She complains of left flank pain with nausea. She does not make urine. Denies chest pain. PMD: [facility]. Nephrologis Dr Caballero - Related Data Home Medications Medication Instructions Recorded Confirmed Last Taken Allopurinol [Zyloprim] 100 mg PO QDAY MDD 100 mg 01/01/18 11/05/18 07/12/18 Apixaban [Eliquis] 5 mg PO BID MDD 10 mg 01/01/18 11/05/18 07/12/18 Cinacalcet HCl [Sensipar] 60 mg PO DAILY MDD 60 mg 01/01/18 11/05/18 07/12/18 Metoprolol [Lopressor TAB] 25 mg BID 07/13/18 11/05/18 07/12/18 Previous Rx's Medication Instructions Recorded Last Taken Type AtorvaSTATin [Lipitor] 80 mg PO QHS #30 tablet 10/08/17 07/12/18 Rx ISOSORBIDE MONOnitrate [Imdur ER] 60 mg PO QDAY #30 tablet 01/05/18 07/12/18 Rx Dextran 70/Hypromellose/Pf 1 - 2 drop OP PRN PRN #1 droperette 04/21/18 07/12/18 Rx [Artificial Tears Drops 1%/0.3%] Azithromycin [Zithromax Z-FITO] 0 mg PO DAILY #1 tab 11/07/18 Unknown Rx Benzonatate [Tessalon Perles] 100 mg PO Q8HR PRN #15 capsule 11/07/18 Unknown Rx Pantoprazole [Protonix TAB] 40 mg PO BID #30 tablet 11/07/18 Unknown Rx Allergies Allergy/AdvReac Type Severity Reaction Status Date / Time aspirin AdvReac HEART Verified 01/23/17 16:26 FLUTTER ED Review of Systems ROS: Stated complaint: SOB Other details as noted in HPI Comment: All other systems reviewed and negative ED Past Medical Hx - Past Medical History Hx Hypertension: Yes Hx Heart Attack/AMI: Yes (03/16) Hx Congestive Heart Failure: Yes Hx Diabetes: Yes Hx GERD: Yes Hx Renal Disease: Yes (DIALYSIS ) Hx Arthritis: Yes Hx Kidney Stones: Yes Hx Asthma: No Hx COPD: No Hx HIV: No Additional medical history: benign mass on intestine. HIGH CHOLESTEROL. ANEMIA. TIA - Surgical History Hx Coronary Stent: Yes (x2) Hx Cholecystectomy: Yes Hx Appendectomy: Yes Hx Breast Surgery: Yes (LEFT BREAST LUMPECTOMY) Additional Surgical History: AV fistula left arm, hysterectomy, , tonsillectomy, colostomy, colostomy reversal. HERNIA REPAIR. LITHOTRIPSY - Social History Smoking Status: Never Smoker Substance Use Type: None - Medications Home Medications: Home Medications Medication Instructions Recorded Confirmed Last Taken Type AtorvaSTATin [Lipitor] 80 mg PO QHS #30 tablet 10/08/17 11/05/18 07/12/18 Rx Allopurinol [Zyloprim] 100 mg PO QDAY MDD 100 mg 01/01/18 11/05/18 07/12/18 History Apixaban [Eliquis] 5 mg PO BID MDD 10 mg 01/01/18 11/05/18 07/12/18 History Cinacalcet HCl [Sensipar] 60 mg PO DAILY MDD 60 mg 01/01/18 11/05/18 07/12/18 History ISOSORBIDE MONOnitrate [Imdur ER] 60 mg PO QDAY #30 tablet 01/05/18 11/05/18 07/12/18 Rx Dextran 70/Hypromellose/Pf 1 - 2 drop OP PRN PRN #1 droperette 04/21/18 11/05/18 07/12/18 Rx [Artificial Tears Drops 1%/0.3%] Metoprolol [Lopressor TAB] 25 mg BID 1011/05/18 07/12/18 History Azithromycin [Zithromax Z-FITO] 0 mg PO DAILY #1 tab 11/07/18 Unknown Rx Benzonatate [Tessalon Perles] 100 mg PO Q8HR PRN #15 capsule 11/07/18 Unknown Rx Pantoprazole [Protonix TAB] 40 mg PO BID #30 tablet 11/07/18 Unknown Rx ED Physical Exam - General Limitations: Physical Limitation - Other Other exam information: General: No limitations, patient is alert in no acute distress Head exam: Atraumatic, normocephalic Eyes exam: Normal appearance ENT: Moist mucous membrane Neck exam: Normal inspection Respiratory exam: Freaking coughing, mild tachypnea, no Rales Cardiovascular: Normal rate and rhythm, left arm AV access positive Abdomen: Soft, nondistended, and nontender, with normal bowel sounds, no rebound, or guarding Extremity: Full range of motion normal inspection no deformity Back: Normal Inspection, full range of motion, no tenderness Neurologic: Alert, oriented x3, cranial nerves intact Psychiatric: normal affect, normal mood Skin: Warm, dry, intact ED Course Vital Signs 12/11/18 12/11/18 12/11/18 11:46 11:50 12:01 Temperature 98.2 F Pulse Rate 66 66 62 Respiratory 25 H 16 20 Rate Blood Pressure O2 Sat by Pulse 98 Oximetry 12/11/18 12/11/18 12:15 12:31 Temperature Pulse Rate 64 64 Respiratory 12 13 Rate Blood Pressure 159/48 O2 Sat by Pulse 99 100 Oximetry - Consultations Consultation #1: 12/11/18 13:[address] Worrell will evaluate and arrange for dialysis - EJ/Peripheral Line Neck R Time Out Performed: Yes Indications: nurses unable to establis Skin Cleansed in Sterile Fashion: Yes Size: 20 Dressing Placed: Tegaderm, tape Patient Tolerated Procedure: well, no complications ED Medical Decision Making - Lab Data Result diagrams: 12/11/18 12:15 12/11/18 12:10 Lab Results 12/11/18 12/11/18 Range/Units 12:10 12:15 WBC 7.3 (4.5-11.0) K/mm3 RBC 3.85 (3.65-5.03) M/mm3 Hgb 11.8 (10.1-14.3) gm/dl Hct 38.3 (30.3-42.9) % MCV 100 H (79-97) fl MCH 31 (28-32) pg MCHC 31 (30-34) % RDW 17.9 H (13.2-15.2) % Plt Count 166 (140-440) K/mm3 Lymph % (Auto) Street Car Inspector [place] % (Auto) Street Car Inspector Eos % (Auto) Street Car Inspector Baso % (Auto) Street Car Inspector Lymph # Street Car Inspector [place] # Street Car Inspector Eos # Street Car Inspector Baso # Street Car Inspector Seg Neutrophils % Street Car Inspector Seg Neutrophils # Street Car Inspector Sodium 137 (137-145) mmol/L Potassium 4.8 (3.6-5.0) mmol/L Chloride 97.5 L (98-107) mmol/L Carbon Dioxide 22 (22-30) mmol/L Anion Gap 22 mmol/L BUN 60 H (7-17) mg/dL Creatinine 9.5 H (0.7-1.2) mg/dL Estimated GFR 5 ml/min BUN/Creatinine Ratio 6 % Glucose 143 H (65-100) mg/dL Calcium 8.8 (8.4-10.2) mg/dL Total Bilirubin 0.40 (0.1-1.2) mg/dL AST 16 (5-40) units/L ALT 11 (7-56) units/L Alkaline Phosphatase 135 H (35-129) units/L Troponin T 0.152 H* (0.00-0.029) ng/mL NT-Pro-B Natriuret Pep 6883 H (0-900) pg/mL Total Protein 8.0 (6.3-8.2) g/dL Albumin 3.9 (3.9-5) g/dL Albumin/Globulin Ratio 1.0 % Triglycerides 193 H (2-149) mg/dL Cholesterol 141 (50-199) mg/dL LDL Cholesterol Direct 85 (50-130) mg/dL HDL Cholesterol 35 L (40-59) mg/dL Cholesterol/HDL Ratio 4.02 % - EKG Data -: EKG Interpreted by Me EKG shows normal: sinus rhythm, axis (qrs 12), QRS complexes (qrsd 104), ST-T waves (no stemi, LVH) Rate: normal (64) - EKG Data When compared to previous EKG there are: no significant change - Radiology Data Radiology results: report reviewed AP CHEST: HISTORY: Short of breath There is poor inspiration. Mild cardiomegaly and central pulmonary venous congestion are suspected. The lungs are clear. No evidence for pneumonia, CHF or pneumothorax. IMPRESSION: Mild cardiomegaly and pulmonary venous congestion but no CHF. - Medical Decision Making pt cxr poor inspiration by suspicious for volume overload Case discussed with nephrology Dialysis will be arranged Mild troponin elevation noted. Her previous medical record reviewed troponin is always elevated and likely secondary to chronic renal. EKG unchanged Patient is allergic to aspirin pt has left flank pain, hx of kidney stones, anuric, and without n/v - Differential Diagnosis volume overload, CHF, TN, bronchitis, pneumonia Critical Care Time: No Critical care attestation.: If time is entered above; I have spent that time in minutes in the direct care of this critically ill patient, excluding procedure time. ED Disposition Clinical Impression: IDDM (insulin dependent diabetes mellitus), Elevated troponin, SOB (shortness of breath), CHF exacerbation, ESRD needing dialysis Disposition: OP ADMIT IP TO THIS HOSP Is pt being admited?: Yes Referrals: VON GALARZA MD [Primary Care Provider] - 3-5 Days Time of Disposition: 13:47 (DR aguayo/hosp)
[2018-12-11 12:46] LABS: Albumin 3.9 g/dL (3.9-5); Calcium 8.8 mg/dL (8.4-10.2)
[2018-12-11 13:01] LABS: Chol/HDL Ratio 4.02 %
[2018-12-11 13:25] LABS: Hematocrit 38.3 % (30.3-42.9); Hemoglobin 11.8 gm/dl (10.1-14.3); Mean Corpuscular HGB Conc 31 % (30-34); Mean Corpuscular Volume 100 fl (79-97); Platelet Count 166 K/mm3 (140-440); Red Blood Count 3.85 M/mm3 (3.65-5.03); Red Cell Distribution Width 17.9 % (13.2-15.2)
--- NOTE | 2018-12-11 13:45 | XRay Report ---
AP CHEST: HISTORY: Short of breath There is poor inspiration. Mild cardiomegaly and central pulmonary venous congestion are suspected. The lungs are clear. No evidence for pneumonia, CHF or pneumothorax. IMPRESSION: Mild cardiomegaly and pulmonary venous congestion but no CHF.
[2018-12-11] MEDS ORDERED: NACL 0.9% 100 ML IV PRN (14:38)
[2018-12-11 15:00] LABS: Total Cells Counted 100
[2018-12-11 15:01] LABS: Anisocytosis 1+; Ovalocytes Few; Platelet Estimate Consistent w Auto; Poikilocytosis Few; Tear Drop Cells Rare
[2018-12-11 18:16] LABS: Hepatitis C Virus Antibody Non-Reactive (NonReactive)
[2018-12-11] MEDS ORDERED: NACL 0.9 (PRIMING MACHINE ONLY DIALYSIS) MC ONE (18:59)
[2018-12-11] MEDS ORDERED: ZOFRAN IV PRN ×2 (23:32→23:45)
[2018-12-11] MEDS ORDERED: TYLENOL PO PRN ×2 (23:32→23:45)
[2018-12-11] MEDS ORDERED: SODIUM CHLORIDE FLUSH SYRINGE 10 ML IV PRN ×2 (23:32→23:45)
--- NOTE | 2018-12-11 23:32 | Event Note ---
Date: 12/11/18 See dictated history and physical in the reports Volume overload ESRD
--- NOTE | 2018-12-11 23:47 | Consultation ---
History of Present Illness - History of Present Illness Thank you for the consultation ! Patient was evaluated today My assessment and plan are as follows (patient seen in ER , d/w ER MD and examined at 2.45 pm ) A/p ESRD volume overload , due for dialysis ordered with HD nurse Kemi already pending HD, dialysis nurse is aware for dialysis today HTN to follow , monitor postdialysis Shortness of breath with some evidence of fluid overload congestive heart failure Likely noncompliant with fluid intake SOB due to volume overload / Edema one plus Abnormal troponin likley due to ESRDno chest pain SHPT to follow Anemia stable Will HD today and follow Patient was adequately counseled and educated regarding multiple renal related issues. due to renal disease overall prognosis remains guarded at this time All renal related questions were answered and simple [place] pertinent lab studies as well as imaging results were also discussed with patient We will continue to follow and make recommendations from renal standpoint. Thank you for the consultation Author: Je Worrell M.D. [facility], [address] [place] [address] Tel; [phone] Source of information: From patient History of present illness Patient is a 68-year-old -Indian female who is currently being admitted here with shortness of breath, she is currently dialysis dependent and upon evaluation in the emergency room was noted to have respiratory distress, patient currently dialyzes on Saturday schedule and does have prior history of congestive heart failure and coronary artery disease. She was noted to have increasing shortness of breath and hence was sent to the hospital upon initial evaluation during hospitalization patient was noted to have uncontrolled hypertension her blood pressure was around 158 systolic. He had a BUN of 60 creatinine of 9.5 potassium was 4.8 and hemoglobin of 11.8 chest x-ray showed evidence of cardiomegaly and pulmonary vascular congestion without any evidence of CHF Hospital history is significant for ,ESRD Hypertension Congestive heart failure Myocardial infarction Secondary hyperparathyroidism Anemia and renal failure GERD Arthritis Diabetes Current allergies: Aspirin Social history: Reviewed Family history: Reviewed Home medication present medication: Reviewed Physical examination Vitals: Reviewed General: No acute distress HEENT: Oral mucosa moist no pallor or icterus Neck: Supple without any JVD thyromegaly or nodular mass Chest: few bilateral basilar crackles Heart: Regular rate and rhythm S1-S2 heard no S3-S4 Abdomen: Soft nontender, bowel sounds present no renal bruit no suprapubic masses no CVA tenderness noted Extremity: Minimal edema dry skin no peripheral cyanosis Endocrine: Thyroid not enlarged Psychiatric: No agitation and aggression noted Musculoskeletal: No joint effusion noted Labs and x-rays: Reviewed from this admission Medications and Allergies Allergies Allergy/AdvReac Type Severity Reaction Status Date / Time aspirin AdvReac HEART Verified 01/23/17 16:26 FLUTTER Home Medications Medication Instructions Recorded Confirmed Last Taken Type AtorvaSTATin [Lipitor] 80 mg PO QHS #30 tablet 10/08/17 12/11/18 07/12/18 Rx Apixaban [Eliquis] 5 mg PO BID MDD 10 mg 01/01/18 12/11/18 07/12/18 History Cinacalcet HCl [Sensipar] 60 mg PO DAILY MDD 60 mg 01/01/18 12/11/18 07/12/18 History Metoprolol [Lopressor TAB] 25 mg BID 07/13/18 12/11/18 07/12/18 History Pantoprazole [Protonix TAB] 40 mg PO BID #30 tablet 11/07/18 12/11/18 Unknown Rx L. Acidophilus/Bifid. Animalis 1 each PO DAILY 12/11/18 12/11/18 Unknown History [Dialyvite Chewable Probiotic] Sevelamer HCl [Renagel] 2,400 mg PO TID 12/11/18 12/11/18 Unknown History Cyclobenzaprine HCl [Flexeril 5 MG 5 mg PO TID #15 tab 12/16/18 Unknown Rx TAB] Active Meds: Active Medications Acetaminophen (Tylenol) 650 mg PO Q4H PRN PRN Reason: Pain MILD(1-3)/Fever >100.5/AREVALO Apixaban (Eliquis) 5 mg PO BID ANNETTE; Protocol Atorvastatin Calcium (Lipitor) 80 mg PO QHS ANNETTE Famotidine (Pepcid) 10 mg PO BID ANNETTE Sodium Chloride (Nacl 0.9%) 100 mls @ 999 mls/hr IV ARGENIS PRN PRN Reason: Hypotension Metoprolol Tartrate (Lopressor) 25 mg PO BID [facility] Miscellaneous Medication (Cinacalcet Hcl [Sensipar]) 60 mg PO DAILY [facility] Miscellaneous Medication (L. Acidophilus/Bifid. Animalis [Dialyvite Chewable Probiotic]) 1 each PO DAILY [facility] Miscellaneous Medication (Sevelamer Hcl [Renagel]) 2,400 mg PO TID [facility] Ondansetron HCl (Zofran) 4 mg IV Q8H PRN PRN Reason: Nausea And Vomiting Oxycodone/Acetaminophen (Percocet 5/325) 1 tab PO Q6H PRN PRN Reason: Pain, Moderate (4-6) Pantoprazole Sodium (Protonix) 40 mg PO BID ANNETTE Sodium Chloride (Sodium Chloride Flush Syringe 10 Ml) 10 ml IV BID ANNETTE Sodium Chloride (Sodium Chloride Flush Syringe 10 Ml) 10 ml IV PRN PRN PRN Reason: LINE FLUSH Exam - Vital Signs Vital signs: Vital Signs Pulse Resp 66 25 H 12/11/18 11:46 12/11/18 11:46 Results - Lab Results 12/12/18 03:01 12/16/18 15:58 Most recent lab results Calcium 8.8 mg/dL (8.4-10.2) 12/11/18 12:10
[2018-12-12 04:03] LABS: Basophils % (Auto) 0.5 % (0.0-1.8); Eosinophils # (Auto) 0.2 K/mm3 (0.0-0.4); Eosinophils % (Auto) 2.5 % (0.0-4.3); Hematocrit 36.3 % (30.3-42.9); Hemoglobin 11.9 gm/dl (10.1-14.3); Lymphocytes # (Auto) 1.3 K/mm3 (1.2-5.4); Lymphocytes % (Auto) 17.9 % (13.4-35.0); Mean Corpuscular HGB Conc 33 % (30-34); Mean Corpuscular Volume 93 fl (79-97); Monocytes # (Auto) 0.9 K/mm3 (0.0-0.8); Monocytes % (Auto) 12.7 % (0.0-7.3); Platelet Count 130 K/mm3 (140-440); Red Cell Distribution Width 17.1 % (13.2-15.2)
[2018-12-12 04:09] LABS: Albumin 3.6 g/dL (3.9-5); Calcium 8.7 mg/dL (8.4-10.2)
[2018-12-12] MEDS: ELIQUIS PO SCH ×3 (05:45→21:36)
[2018-12-12] MEDS: PROTONIX PO SCH ×3 (05:45→21:38)
[2018-12-12] MEDS: LOPRESSOR PO SCH ×3 (05:45→21:37)
--- NOTE | 2018-12-12 07:38 | History and Physical Report ---
CHIEF COMPLAINT: Sudden onset of shortness of breath before going to Dialysis Center. HISTORY OF PRESENT ILLNESS: A 67-year-old -Wallisian female with history of end-stage renal disease and hypertension, goes to Dialysis Center on Saturday, and Saturday. She also has CHF, coronary artery disease with stent x 2 and multiple other chronic conditions. The patient had a sudden onset of shortness of breath while going to the Dialysis Center. She has a Transport Center to drop her back at the house and she called 911 and came to the ER for acute onset of shortness of breath and did not get shoe designer dialysis. Orthopnea is present. No PND attacks. No chest pain. Exacerbating factor is if she drinks more fluids than usual. PAST MEDICAL HISTORY: Hyperlipidemia, coronary artery disease, hypertension, anticoagulation. PAST SURGICAL HISTORY: Cholecystectomy, appendectomy, breast surgery, left breast lumpectomy, AV fistula, left arm; hysterectomy, , tonsillectomy, colostomy and colostomy reversal, hernia repair and lithotripsy. SOCIAL HISTORY: Does not smoke. No alcohol, no recreational drugs. FAMILY HISTORY: Hypertension. CURRENT MEDICATIONS: On the chart. REVIEW OF SYSTEMS: Significant for sudden onset of shortness of breath and orthopnea present. No chest pain. Other review of systems is negative. PHYSICAL EXAMINATION: GENERAL: Elderly female, cooperative during examination. VITAL SIGNS: Blood pressure is 139/63, temperature is 98.1, pulse is 69, and respirations are 16. HEENT: Unremarkable. Pupils equal and reactive. NECK: Supple, no lymphadenopathy, no thyromegaly. LUNGS: Scattered rales bilaterally. CARDIOVASCULAR: S1, S2 heard. No gallop, no murmur, no rub. Apical impulse in left fifth intercostal space and midclavicular line. ABDOMEN: Soft and benign. No hepatosplenomegaly. No guarding, no rigidity. Hernial orifices are normal. EXTREMITIES: Good pedal pulses. No pedal edema. AV fistula present in the left arm. CENTRAL NERVOUS SYSTEM: Alert and oriented x 4, nonfocal exam. SKIN: Normal. LABORATORY DATA: Significant for white count of 7300, H and H is 11.8 and 38.3, platelet count is 166,000. Sodium is 137, potassium is 4.8, chloride is 97.5, BUN and creatinine is 60 and 9.5. Troponin is 0.152, triglycerides are 193. EKG shows normal sinus rhythm. Normal QRS complexes, normal ST-T waves. Chest x-ray shows volume overload. EKG shows sinus rhythm, left ventricular hypertrophy, heart rate of 64 per minute. ASSESSMENT AND PLAN: 1. Volume overload. The patient will be taken for emergent hemodialysis. 2. End-stage renal disease. Continue hemodialysis. 3. Elevated troponin, nonspecific secondary to end-stage renal disease. 4. Congestive heart failure exacerbation secondary to volume overload. Echocardiogram not ordered. The patient is to get more ultrafiltration. 5. Deep venous thrombosis prophylaxis, heparin 5000 q. 12. JOB# [id number] VSM/NTS
[2018-12-12] MEDS ORDERED: NON-FORMULARY (Sevelamer Hcl [Renagel] 2,400 MG) PO SCH (08:00)
[2018-12-12] MEDS ORDERED: ACIDOPHILUS PO SCH (10:00)
[2018-12-12] MEDS ORDERED: BIFID ANIMALIS PO SCH (10:00)
[2018-12-12] MEDS ORDERED: PEPCID PO SCH (10:00)
[2018-12-12] MEDS ORDERED: SODIUM CHLORIDE FLUSH SYRINGE 10 ML IV SCH (10:00)
[2018-12-12] MEDS ORDERED: NON-FORMULARY (Cinacalcet Hcl [Sensipar] 60 MG) PO SCH (10:00)
[2018-12-12] MEDS: RENVELA PO SCH ×3 (11:02→21:44)
[2018-12-12] MEDS: HEPARIN SUB-Q SCH ×2 (11:03→21:37)
[2018-12-12] MEDS: SENSIPAR PO SCH (11:03)
[2018-12-12] MEDS: SODIUM CHLORIDE FLUSH SYRINGE 10 ML IV SCH ×2 (11:04→21:37)
--- NOTE | 2018-12-12 15:59 | Progress Note ---
Assessment and Plan ESRD volume overload HTN , stable Respiratory distress due to volume overload / 2d echo ordered Abnormal troponin likely due to ESRd no chest pain Anemia stable, due to ESRD CHF? EF unknown - echo ordered h/o CAD s/p stent, cont home meds - resumed home meds, HD per renal - patient states she is compliant with meds, and diet/fluid restriction - monitor BMP, monitor BP, order 2d echo - Dvt Px Brief History: 67-year-old female with a past medical history of end-stage renal disease on dialysis Saturday, , and Saturday, CHF, CAD with stent 2 and multiple other chronic conditions and previous surgeries (see triage) presents to the hospital with complaints of shortness of breath fro one day. She denies fever, chest pain,vomiting, or diaphoresis. She complains of left flank pain with nausea. She does not make urine. Denies chest pain. PMD: [facility]. Nephrologis Dr Caballero. She was admitted fro emergent HD and furtehr management. CXR: cardiomegaly, pulmonary venous congestion Subjective Date of service: 12/12/18 Interval history: ptient seen and examined c/o SOB, had HD yesterday No chest pain Objective - Constitutional Vitals: Vital Signs - 12hr 12/12/18 12/12/18 05:11 06:00 Temperature 98.1 F Pulse Rate 67 63 Respiratory 16 Rate Blood Pressure 140/57 [Right] O2 Sat by Pulse 97 Oximetry General appearance: Present: no acute distress, obese - EENT Eyes: PERRL, EOM intact ENT: hearing intact, clear oral mucosa Ears: bilateral: normal - Neck Neck: supple, normal ROM - Respiratory Respiratory effort: normal Respiratory: bilateral: CTA - Cardiovascular Rhythm: regular Heart Sounds: Present: S1 & S2. Absent: gallop, rub Extremities: pulses intact, No edema, normal color, Full ROM - Gastrointestinal General gastrointestinal: Present: soft, non-tender, non-distended, normal bowel sounds - Integumentary Integumentary: clear, warm, dry - Musculoskeletal Musculoskeletal: 1, strength equal bilaterally - Neurologic Neurologic: moves all extremities - Psychiatric Psychiatric: memory intact, appropriate mood/affect, intact judgment & insight - Labs CBC & Chem 7: 12/12/18 03:01 12/12/18 03:01 Labs: Abnormal lab results 12/11/18 12/11/18 12/12/18 Range/Units 21:15 23:57 03:01 RDW 17.1 H (13.2-15.2) % Plt Count 130 L (140-440) K/mm3 [place] % (Auto) 12.7 H (0.0-7.3) % [place] # 0.9 H (0.0-0.8) K/mm3 Sodium (137-145) mmol/L Chloride (98-107) mmol/L BUN (7-17) mg/dL Creatinine (0.7-1.2) mg/dL Glucose (65-100) mg/dL POC Glucose 193 H (70-105) Hemoglobin A1c 6.3 H (4-6) % Albumin (3.9-5) g/dL 12/12/18 Range/Units 03:01 RDW (13.2-15.2) % Plt Count (140-440) K/mm3 [place] % (Auto) (0.0-7.3) % [place] # (0.0-0.8) K/mm3 Sodium 135 L (137-145) mmol/L Chloride 96.0 L (98-107) mmol/L BUN 41 H (7-17) mg/dL Creatinine 8.1 H (0.7-1.2) mg/dL Glucose 149 H (65-100) mg/dL POC Glucose (70-105) Hemoglobin A1c (4-6) % Albumin 3.6 L (3.9-5) g/dL - Imaging and cardiology Chest x-ray: report reviewed
--- NOTE | 2018-12-12 17:59 | Progress Note ---
Subjective Date of service: 12/19/18 Principal diagnosis: esrd Interval history: resting well in bed today Objective - Exam Narrative Exam: General: No limitations, patient is alert in no acute distress Head exam: Atraumatic, normocephalic Eyes exam: Normal appearance ENT: Moist mucous membrane Neck exam: Normal inspection Respiratory exam: Freaking coughing, mild tachypnea, no Rales Cardiovascular: Normal rate and rhythm, left arm AV access positive Abdomen: Soft, nondistended, and nontender, with normal bowel sounds, no rebound, or guarding Extremity: Full range of motion normal inspection no deformity Back: Normal Inspection, full range of motion, no tenderness Neurologic: Alert, oriented x3, cranial nerves intact Psychiatric: normal affect, normal mood Skin: Warm, dry, intact - Vital Signs Vital signs: Vital Signs - 12hr 12/12/18 12/12/18 12/12/18 06:00 09:35 16:21 Temperature 98.5 F 98.4 F Pulse Rate 63 72 69 Respiratory 20 20 Rate Blood Pressure 159/61 167/52 O2 Sat by Pulse 94 96 Oximetry - Lab 12/12/18 03:01 12/12/18 03:01 Most recent lab results Calcium 8.7 mg/dL (8.4-10.2) 12/12/18 03:01 Medications & Allergies - Medications Allergies/Adverse Reactions: Allergies aspirin Adverse Reaction (Verified 01/23/17 16:26) HEART FLUTTER Home Medications: Home Medications Medication Instructions Recorded Confirmed Last Taken Type AtorvaSTATin [Lipitor] 80 mg PO QHS #30 tablet 10/08/17 12/11/18 07/12/18 Rx Apixaban [Eliquis] 5 mg PO BID MDD 10 mg 01/01/18 12/11/18 07/12/18 History Cinacalcet HCl [Sensipar] 60 mg PO DAILY MDD 60 mg 01/01/18 12/11/18 07/12/18 History Metoprolol [Lopressor TAB] 25 mg BID 07/13/18 12/11/18 07/12/18 History Pantoprazole [Protonix TAB] 40 mg PO BID #30 tablet 11/07/18 12/11/18 Unknown Rx L. Acidophilus/Bifid. Animalis 1 each PO DAILY 12/11/18 12/11/18 Unknown History [Dialyvite Chewable Probiotic] Sevelamer HCl [Renagel] 2,400 mg PO TID 12/11/18 12/11/18 Unknown History Active Medications: Generic Name Dose Route Start Last Admin Trade Name Rhea PRN Reason Stop Dose Admin Acetaminophen 650 mg 12/11/18 23:32 Tylenol PO Q4H PRN Pain MILD(1-3)/Fever >100.5/AREVALO Apixaban 5 mg 12/11/18 23:45 12/12/18 11:03 Eliquis PO 5 mg BID ANNETTE Administration Protocol Atorvastatin Calcium 80 mg 12/12/18 22:00 Lipitor PO QHS ANNETTE Cinacalcet 60 mg 12/12/18 10:00 12/12/18 11:03 Sensipar PO 60 mg QDAY ANNETTE Administration Heparin Sodium (Porcine) 5,000 unit 12/12/18 10:00 12/12/18 11:03 Heparin SUB-Q 5,000 unit Q12HR ANNETTE Administration Sodium Chloride 100 mls @ 999 mls/hr 12/11/18 14:38 Nacl 0.9% IV ARGENIS PRN Hypotension Metoprolol Tartrate 25 mg 12/11/18 23:45 12/12/18 11:03 Lopressor PO 25 mg BID ANNETTE Administration Miscellaneous Medication 1 each 12/12/18 10:00 L. Acidophilus/Bifid. Animalis [Dialyvite Chewable Probiotic] PO DAILY [facility] Ondansetron HCl 4 mg 12/11/18 23:32 Zofran IV Q8H PRN Nausea And Vomiting Oxycodone/Acetaminophen 1 tab 12/11/18 23:32 Percocet 5/325 PO Q6H PRN Pain, Moderate (4-6) Pantoprazole Sodium 40 mg 12/11/18 23:45 12/12/18 11:03 Protonix PO 40 mg BID ANNETTE Administration Sevelamer Carbonate 2,400 mg 12/12/18 08:00 12/12/18 17:53 Renvela PO 2,400 mg TIDWM ANNETTE Administration Sodium Chloride 10 ml 12/12/18 10:00 12/12/18 11:04 Sodium Chloride Flush Syringe 10 Ml IV 10 ml BID ANNETTE Administration Sodium Chloride 10 ml 12/11/18 23:32 Sodium Chloride Flush Syringe 10 Ml IV PRN PRN LINE FLUSH
--- NOTE | 2018-12-12 18:01 | Progress Note ---
Assessment and Plan Impression: * ESRD * HTN * volume overload * secondary hyperparathyroidism Plan: * HD q TTHSAT * uf as tolerated with hd * daily lytes * strict i/os * renal diet * ok to dc from renal standpoint Subjective Date of service: 12/12/18 Principal diagnosis: esrd Interval history: resting well in bed today Objective - Exam Narrative Exam: General: No limitations, patient is alert in no acute distress Head exam: Atraumatic, normocephalic Eyes exam: Normal appearance ENT: Moist mucous membrane Neck exam: Normal inspection Respiratory exam: Freaking coughing, mild tachypnea, no Rales Cardiovascular: Normal rate and rhythm, left arm AV access positive Abdomen: Soft, nondistended, and nontender, with normal bowel sounds, no rebound, or guarding Extremity: Full range of motion normal inspection no deformity Back: Normal Inspection, full range of motion, no tenderness Neurologic: Alert, oriented x3, cranial nerves intact Psychiatric: normal affect, normal mood Skin: Warm, dry, intact - Vital Signs Vital signs: Vital Signs - 12hr 12/12/18 12/12/18 09:35 16:21 Temperature 98.5 F 98.4 F Pulse Rate 72 69 Respiratory 20 20 Rate Blood Pressure 159/61 167/52 O2 Sat by Pulse 94 96 Oximetry - Lab 12/12/18 03:01 12/12/18 03:01 Most recent lab results Calcium 8.7 mg/dL (8.4-10.2) 12/12/18 03:01 Medications & Allergies - Medications Allergies/Adverse Reactions: Allergies aspirin Adverse Reaction (Verified 01/23/17 16:26) HEART FLUTTER Home Medications: Home Medications Medication Instructions Recorded Confirmed Last Taken Type AtorvaSTATin [Lipitor] 80 mg PO QHS #30 tablet 10/08/17 12/11/18 07/12/18 Rx Apixaban [Eliquis] 5 mg PO BID MDD 10 mg 01/01/18 12/11/18 07/12/18 History Cinacalcet HCl [Sensipar] 60 mg PO DAILY MDD 60 mg 01/01/18 12/11/18 07/12/18 History Metoprolol [Lopressor TAB] 25 mg BID 07/13/18 12/11/18 07/12/18 History Pantoprazole [Protonix TAB] 40 mg PO BID #30 tablet 11/07/18 12/11/18 Unknown Rx L. Acidophilus/Bifid. Animalis 1 each PO DAILY 12/11/18 12/11/18 Unknown History [Dialyvite Chewable Probiotic] Sevelamer HCl [Renagel] 2,400 mg PO TID 12/11/18 12/11/18 Unknown History Active Medications: Generic Name Dose Route Start Last Admin Trade Name Freq PRN Reason Stop Dose Admin Acetaminophen 650 mg 12/11/18 23:32 Tylenol PO Q4H PRN Pain MILD(1-3)/Fever >100.5/AREVALO Apixaban 5 mg 12/11/18 23:45 12/12/18 11:03 Eliquis PO 5 mg BID ANNETTE Administration Protocol Atorvastatin Calcium 80 mg 12/12/18 22:00 Lipitor PO QHS ANNETTE Cinacalcet 60 mg 12/12/18 10:00 12/12/18 11:03 Sensipar PO 60 mg QDAY ANNETTE Administration Heparin Sodium (Porcine) 5,000 unit 12/12/18 10:00 12/12/18 11:03 Heparin SUB-Q 5,000 unit Q12HR ANNETTE Administration Sodium Chloride 100 mls @ 999 mls/hr 12/11/18 14:38 Nacl 0.9% IV ARGENIS PRN Hypotension Metoprolol Tartrate 25 mg 12/11/18 23:45 12/12/18 11:03 Lopressor PO 25 mg BID ANNETTE Administration Miscellaneous Medication 1 each 12/12/18 10:00 L. Acidophilus/Bifid. Animalis [Dialyvite Chewable Probiotic] PO DAILY [facility] Ondansetron HCl 4 mg 12/11/18 23:32 Zofran IV Q8H PRN Nausea And Vomiting Oxycodone/Acetaminophen 1 tab 12/11/18 23:32 Percocet 5/325 PO Q6H PRN Pain, Moderate (4-6) Pantoprazole Sodium 40 mg 12/11/18 23:45 12/12/18 11:03 Protonix PO 40 mg BID ANNETTE Administration Sevelamer Carbonate 2,400 mg 12/12/18 08:00 12/12/18 17:53 Renvela PO 2,400 mg TIDWM ANNETTE Administration Sodium Chloride 10 ml 12/12/18 10:00 12/12/18 11:04 Sodium Chloride Flush Syringe 10 Ml IV 10 ml BID ANNETTE Administration Sodium Chloride 10 ml 12/11/18 23:32 Sodium Chloride Flush Syringe 10 Ml IV PRN PRN LINE FLUSH
--- NOTE | 2018-12-13 09:27 | Progress Note ---
Assessment and Plan Impression: * ESRD * HTN * volume overload * secondary hyperparathyroidism Plan: * HD q TTHSAT * uf as tolerated with hd * daily lytes * strict i/os * renal diet * ok to dc from renal standpoint Subjective Date of service: 12/13/18 Principal diagnosis: esrd Interval history: resting well in bed today Objective - Exam Narrative Exam: General: No limitations, patient is alert in no acute distress Head exam: Atraumatic, normocephalic Eyes exam: Normal appearance ENT: Moist mucous membrane Neck exam: Normal inspection Respiratory exam: Freaking coughing, mild tachypnea, no Rales Cardiovascular: Normal rate and rhythm, left arm AV access positive Abdomen: Soft, nondistended, and nontender, with normal bowel sounds, no rebound, or guarding Extremity: Full range of motion normal inspection no deformity Back: Normal Inspection, full range of motion, no tenderness Neurologic: Alert, oriented x3, cranial nerves intact Psychiatric: normal affect, normal mood Skin: Warm, dry, intact - Vital Signs Vital signs: Vital Signs - 12hr 12/12/18 12/12/18 12/13/18 21:37 22:00 00:26 Temperature 98.2 F Pulse Rate 66 69 64 Respiratory 20 Rate Blood Pressure 138/52 145/61 O2 Sat by Pulse 96 Oximetry - Lab 12/12/18 03:01 12/12/18 03:01 Most recent lab results Calcium 8.7 mg/dL (8.4-10.2) 12/12/18 03:01 Medications & Allergies - Medications Allergies/Adverse Reactions: Allergies aspirin Adverse Reaction (Verified 01/23/17 16:26) HEART FLUTTER Home Medications: Home Medications Medication Instructions Recorded Confirmed Last Taken Type AtorvaSTATin [Lipitor] 80 mg PO QHS #30 tablet 10/08/17 12/11/18 07/12/18 Rx Apixaban [Eliquis] 5 mg PO BID MDD 10 mg 01/01/18 12/11/18 07/12/18 History Cinacalcet HCl [Sensipar] 60 mg PO DAILY MDD 60 mg 01/01/18 12/11/18 07/12/18 History Metoprolol [Lopressor TAB] 25 mg BID 07/13/18 12/11/18 07/12/18 History Pantoprazole [Protonix TAB] 40 mg PO BID #30 tablet 11/07/18 12/11/18 Unknown Rx L. Acidophilus/Bifid. Animalis 1 each PO DAILY 12/11/18 12/11/18 Unknown History [Dialyvite Chewable Probiotic] Sevelamer HCl [Renagel] 2,400 mg PO TID 12/11/18 12/11/18 Unknown History Active Medications: Generic Name Dose Route Start Last Admin Trade Name Freq PRN Reason Stop Dose Admin Acetaminophen 650 mg 12/11/18 23:32 Tylenol PO Q4H PRN Pain MILD(1-3)/Fever >100.5/AREVALO Apixaban 5 mg 12/11/18 23:45 12/12/18 21:36 Eliquis PO 5 mg BID ANNETTE Administration Protocol Atorvastatin Calcium 80 mg 12/12/18 22:00 12/12/18 21:36 Lipitor PO 80 mg QHS ANNETTE Administration Cinacalcet 60 mg 12/12/18 10:00 12/12/18 11:03 Sensipar PO 60 mg QDAY ANNETTE Administration Heparin Sodium (Porcine) 5,000 unit 12/12/18 10:00 12/12/18 21:37 Heparin SUB-Q 5,000 unit Q12HR ANNETTE Administration Sodium Chloride 100 mls @ 999 mls/hr 12/11/18 14:38 Nacl 0.9% IV ARGENIS PRN Hypotension Metoprolol Tartrate 25 mg 12/11/18 23:45 12/12/18 21:37 Lopressor PO 25 mg BID ANNETTE Administration Miscellaneous Medication 1 each 12/12/18 10:00 L. Acidophilus/Bifid. Animalis [Dialyvite Chewable Probiotic] PO DAILY [facility] Ondansetron HCl 4 mg 12/11/18 23:32 Zofran IV Q8H PRN Nausea And Vomiting Oxycodone/Acetaminophen 1 tab 12/11/18 23:32 Percocet 5/325 PO Q6H PRN Pain, Moderate (4-6) Pantoprazole Sodium 40 mg 12/11/18 23:45 12/12/18 21:38 Protonix PO 40 mg BID [facility] Administration Sevelamer Carbonate 2,400 mg 12/12/18 08:00 12/12/18 21:44 Renvela PO Not Given TIDWM [facility] Sodium Chloride 10 ml 12/12/18 10:00 12/12/18 21:37 Sodium Chloride Flush Syringe 10 Ml IV 10 ml BID ANNETTE Administration Sodium Chloride 10 ml 12/11/18 23:32 Sodium Chloride Flush Syringe 10 Ml IV PRN PRN LINE FLUSH
[2018-12-13] MEDS: HEPARIN SUB-Q SCH ×2 (10:00→22:26)
[2018-12-13] MEDS: SODIUM CHLORIDE FLUSH SYRINGE 10 ML IV SCH ×2 (10:00→22:28)
[2018-12-13] MEDS: RENVELA PO SCH ×3 (12:00→16:00)
[2018-12-13] MEDS ORDERED: NACL 0.9 (PRIMING MACHINE ONLY DIALYSIS) MC ONE (13:46)
[2018-12-13] MEDS: PERCOCET 5/325 PO PRN ×2 (15:30→22:26)
[2018-12-13] MEDS: SENSIPAR PO SCH (15:30)
[2018-12-13] MEDS: LOPRESSOR PO SCH ×2 (15:30→22:27)
[2018-12-13] MEDS: ELIQUIS PO SCH ×2 (15:34→22:27)
[2018-12-13] MEDS: PROTONIX PO SCH ×2 (15:34→22:27)
--- NOTE | 2018-12-13 16:49 | Progress Note ---
Assessment and Plan ESRD volume overload HTN , stable Respiratory distress due to volume overload / 2d echo ordered Abnormal troponin likely due to ESRd no chest pain Anemia stable, due to ESRD CHF? EF unknown - echo ordered h/o CAD s/p stent, cont home meds - resumed home meds, HD per renal - patient states she is compliant with meds, and diet/fluid restriction - monitor BMP, monitor BP, ordered 2d echo - pending - Dvt Px Disposition; wait for 2d echo, Brief History: 67-year-old female with a past medical history of end-stage renal disease on dialysis Saturday, , and Saturday, CHF, CAD with stent 2 and multiple other chronic conditions and previous surgeries (see triage) presents to the hospital with complaints of shortness of breath fro one day. She denies fever, chest pain,vomiting, or diaphoresis. She complains of left flank pain with nausea. She does not make urine. Denies chest pain. PMD: [facility]. Nephrologis Dr Caballero. She was admitted fro emergent HD and furtehr management. CXR: cardiomegaly, pulmonary venous congestion Subjective Date of service: 12/13/18 Principal diagnosis: esrd Interval history: ptient seen and examined cont to c/o SOB, had HD today No chest pain Objective - Constitutional Vitals: Vital Signs - 12hr 12/13/18 12/13/18 12/13/18 11:15 11:30 11:45 Temperature 97.8 F Pulse Rate 66 71 64 Respiratory 18 Rate Blood Pressure 148/64 155/79 154/73 12/13/18 12/13/18 12/13/18 12:00 12:15 12:30 Temperature Pulse Rate 65 65 66 Respiratory Rate Blood Pressure 157/72 136/63 131/43 12/13/18 12/13/18 12/13/18 12:45 13:00 13:15 Temperature Pulse Rate 61 65 64 Respiratory Rate Blood Pressure 100/66 141/59 141/66 12/13/18 12/13/18 12/13/18 13:30 13:45 14:00 Temperature Pulse Rate 65 68 67 Respiratory Rate Blood Pressure 139/60 131/65 122/66 12/13/18 14:15 Temperature 98.5 F Pulse Rate 72 Respiratory 16 Rate Blood Pressure 166/68 - Labs CBC & Chem 7: 12/12/18 03:01 03/15/19 03:01 Labs: Abnormal lab results 12/12/18 Range/Units 16:22 POC Glucose 126 H (70-105)
[2018-12-14] MEDS: LOPRESSOR PO SCH ×2 (10:20→22:11)
[2018-12-14] MEDS: RENVELA PO SCH ×3 (10:20→18:39)
[2018-12-14] MEDS: SENSIPAR PO SCH (10:20)
[2018-12-14] MEDS: PROTONIX PO SCH ×2 (10:21→22:11)
[2018-12-14] MEDS: SODIUM CHLORIDE FLUSH SYRINGE 10 ML IV SCH ×2 (10:21→22:12)
[2018-12-14] MEDS: ELIQUIS PO SCH ×2 (10:21→22:11)
[2018-12-14] MEDS: HEPARIN SUB-Q SCH ×2 (10:22→22:11)
--- NOTE | 2018-12-14 12:37 | Progress Note ---
Assessment and Plan Impression: * ESRD * HTN * volume overload * secondary hyperparathyroidism Plan: * HD q TTHSAT * uf as tolerated with hd * daily lytes * strict i/os * renal diet * ok to dc from renal standpoint Subjective Date of service: 12/14/18 Principal diagnosis: esrd Interval history: resting well in bed today Objective - Exam Narrative Exam: General: No limitations, patient is alert in no acute distress Head exam: Atraumatic, normocephalic Eyes exam: Normal appearance ENT: Moist mucous membrane Neck exam: Normal inspection Respiratory exam: Freaking coughing, mild tachypnea, no Rales Cardiovascular: Normal rate and rhythm, left arm AV access positive Abdomen: Soft, nondistended, and nontender, with normal bowel sounds, no rebound, or guarding Extremity: Full range of motion normal inspection no deformity Back: Normal Inspection, full range of motion, no tenderness Neurologic: Alert, oriented x3, cranial nerves intact Psychiatric: normal affect, normal mood Skin: Warm, dry, intact - Vital Signs Vital signs: Vital Signs - 12hr 12/14/18 12/14/18 12/14/18 01:00 08:25 10:20 Temperature 98.3 F Pulse Rate 66 62 65 Respiratory 20 Rate Blood Pressure 129/54 [Right] O2 Sat by Pulse 96 Oximetry - Lab 12/12/18 03:01 12/12/18 03:01 Most recent lab results Calcium 8.7 mg/dL (8.4-10.2) 12/12/18 03:01 Medications & Allergies - Medications Allergies/Adverse Reactions: Allergies aspirin Adverse Reaction (Verified 01/23/17 16:26) HEART FLUTTER Home Medications: Home Medications Medication Instructions Recorded Confirmed Last Taken Type AtorvaSTATin [Lipitor] 80 mg PO QHS #30 tablet 10/08/17 12/11/18 07/12/18 Rx Apixaban [Eliquis] 5 mg PO BID MDD 10 mg 01/01/18 12/11/18 07/12/18 History Cinacalcet HCl [Sensipar] 60 mg PO DAILY MDD 60 mg 01/01/18 12/11/18 07/12/18 History Metoprolol [Lopressor TAB] 25 mg BID 07/13/18 12/11/18 07/12/18 History Pantoprazole [Protonix TAB] 40 mg PO BID #30 tablet 11/07/18 12/11/18 Unknown Rx L. Acidophilus/Bifid. Animalis 1 each PO DAILY 12/11/18 12/11/18 Unknown History [Dialyvite Chewable Probiotic] Sevelamer HCl [Renagel] 2,400 mg PO TID 12/11/18 12/11/18 Unknown History Active Medications: Generic Name Dose Route Start Last Admin Trade Name Freq PRN Reason Stop Dose Admin Acetaminophen 650 mg 12/11/18 23:32 Tylenol PO Q4H PRN Pain MILD(1-3)/Fever >100.5/AREVALO Apixaban 5 mg 12/11/18 23:45 12/14/18 10:21 Eliquis PO 5 mg BID ANNETTE Administration Protocol Atorvastatin Calcium 80 mg 12/12/18 22:00 12/13/18 22:27 Lipitor PO 80 mg QHS ANNETTE Administration Cinacalcet 60 mg 12/12/18 10:00 12/14/18 10:20 Sensipar PO 60 mg QDAY ANNETTE Administration Heparin Sodium (Porcine) 5,000 unit 12/12/18 10:00 12/14/18 10:22 Heparin SUB-Q 5,000 unit Q12HR ANNETTE Administration Sodium Chloride 100 mls @ 999 mls/hr 12/11/18 14:38 Nacl 0.9% IV ARGENIS PRN Hypotension Metoprolol Tartrate 25 mg 12/11/18 23:45 12/14/18 10:20 Lopressor PO 25 mg BID ANNETTE Administration Miscellaneous Medication 1 each 12/12/18 10:00 L. Acidophilus/Bifid. Animalis [Dialyvite Chewable Probiotic] PO DAILY [facility] Ondansetron HCl 4 mg 12/11/18 23:32 Zofran IV Q8H PRN Nausea And Vomiting Oxycodone/Acetaminophen 1 tab 12/11/18 23:32 12/13/18 22:26 Percocet 5/325 PO 1 tab Q6H PRN Administration Pain, Moderate (4-6) Pantoprazole Sodium 40 mg 12/11/18 23:45 12/14/18 10:21 Protonix PO 40 mg BID ANNETTE Administration Sevelamer Carbonate 2,400 mg 12/12/18 08:00 12/14/18 10:20 Renvela PO 2,400 mg TIDWM ANNETTE Administration Sodium Chloride 10 ml 12/12/18 10:00 12/14/18 10:21 Sodium Chloride Flush Syringe 10 Ml IV 10 ml BID ANNETTE Administration Sodium Chloride 10 ml 12/11/18 23:32 Sodium Chloride Flush Syringe 10 Ml IV PRN PRN LINE FLUSH
--- NOTE | 2018-12-14 13:26 | Progress Note ---
Assessment and Plan ESRD volume overload HTN , stable Respiratory distress due to volume overload Abnormal troponin likely due to ESRd no chest pain Anemia stable, due to ESRD CHF? EF unknown - echo showed preserved EF, likely DD h/o CAD s/p stent, cont home meds - resumed home meds, HD per renal - patient states she is compliant with meds, and diet/fluid restriction - monitor BMP, monitor BP, preserved Ef on 2d echo - Dvt Px Disposition; reports missing Milagros pad , states cannot go home w/o it. consult CM Brief History: 67-year-old female with a past medical history of end-stage renal disease on dialysis Saturday, , and Saturday, CHF, CAD with stent 2 and multiple other chronic conditions and previous surgeries (see triage) presents to the hospital with complaints of shortness of breath fro one day. She denies fever, chest pain,vomiting, or diaphoresis. She complains of left flank pain with nausea. She does not make urine. Denies chest pain. PMD: [facility]. Nephrologis Dr Caballero. She was admitted for emergent HD and further management. CXR: Cardiomegaly, pulmonary venous congestion Physical exam: General appearance: Present: no acute distress, obese - EENT Eyes: PERRL, EOM intact ENT: hearing intact, clear oral mucosa Ears: bilateral: normal - Neck Neck: supple, normal ROM - Respiratory Respiratory effort: normal Respiratory: bilateral: CTA - Cardiovascular Rhythm: regular Heart Sounds: Present: S1 & S2. Absent: gallop, rub Extremities: pulses intact, No edema, normal color, Full ROM - Gastrointestinal General gastrointestinal: Present: soft, non-tender, non-distended, normal bowel sounds - Integumentary Integumentary: clear, warm, dry - Musculoskeletal Musculoskeletal: 1, strength equal bilaterally - Neurologic Neurologic: moves all extremities - Psychiatric Psychiatric: memory intact, appropriate mood/affect, intact judgment & insight Subjective Date of service: 12/14/18 Principal diagnosis: esrd Interval history: ptient seen and examined No chest pain, breathing better reports missing Milagros pad states cannot go home w/o it Objective - Constitutional Vitals: Vital Signs - 12hr 12/14/18 12/14/18 08:25 10:20 Temperature 98.3 F Pulse Rate 62 65 Respiratory 20 Rate Blood Pressure 129/54 [Right] O2 Sat by Pulse 96 Oximetry - Labs CBC & Chem 7: 12/12/18 03:01 12/15/18 08:46
--- NOTE | 2018-12-14 15:53 | XRay Report ---
PROCEDURE: XR SPINE LUMBOSACRAL 2-3V TECHNIQUE: AP, lateral and coned-down views of the lumbar spine HISTORY: pain in the low back COMPARISONS: CT A/P 11/05/2018 . FINDINGS: Overall, bony structures have subtle generalized increased sclerotic appearance. The vertebral body heights and disc spaces are well maintained. The alignment is normal. No evidence for spondylolysis or spondylolisthesis is seen. Pedicles are intact bilaterally at all levels. The pa raspinal soft tissues demonstrate mild calcification of the aorta. Numerous coils overlie the lower a bdomen and pelvis consistent with minimal ventral hernia repair with mesh. Only the T10-T11 is again noted, unchanged. IMPRESSION: 1. No acute abnormality lumbar spine. No significant change 2. Mild subtle increased sclerotic appearance generally throughout the bony structures, significance of which is uncertain 3.. Chronic deformity of T10-T11 is again noted, stable This document is electronically signed by Vaishnavi Cobb MD., December 14 2018 03:51:23 PM ET
[2018-12-14] MEDS: PERCOCET 5/325 PO PRN (22:13)
[2018-12-15] MEDS: RENVELA PO SCH ×3 (09:00→17:00)
[2018-12-15 09:23] LABS: Calcium 8.6 mg/dL (8.4-10.2)
[2018-12-15] MEDS: ELIQUIS PO SCH ×2 (12:21→21:42)
[2018-12-15] MEDS: SENSIPAR PO SCH (12:22)
[2018-12-15] MEDS: LOPRESSOR PO SCH ×2 (12:22→21:42)
[2018-12-15] MEDS: PROTONIX PO SCH ×2 (12:22→21:42)
[2018-12-15] MEDS: SODIUM CHLORIDE FLUSH SYRINGE 10 ML IV SCH ×2 (12:24→21:43)
--- NOTE | 2018-12-15 14:38 | Progress Note ---
Assessment and Plan - Patient Problems (1) ESRD needing dialysis Current Visit: Yes Status: Acute Plan to address problem: End-stage renal disease with plan for hemodialysis Saturday schedule Resume dialysis tomorrow if stable inpatient (2) Anemia in CKD (chronic kidney disease) Current Visit: No Status: Chronic Plan to address problem: Anemia mild We'll hold off erythropoietin stimulating agents Monitor CBC (3) Hypertension Current Visit: No Status: Chronic Qualifiers: Hypertension type: essential hypertension Qualified Code(s): I10 - Essential (primary) hypertension Plan to address problem: Hypertension uncontrolled Continue medications (4) Hyperkalemia, diminished renal excretion Current Visit: Yes Status: Acute Plan to address problem: Hyperkalemia secondary to renal failure We'll initiate dialysis today Subjective Principal diagnosis: esrd Interval history: 67-year-old lady with medical history significant for hypertension end-stage renal disease on hemodialysis Saturday admitted with volume overload. Patient is seen today and denies any complaints denies any orthopnea PND denies any shortness of breath Objective - Vital Signs Vital signs: Vital Signs - 12hr 12/15/18 12/15/18 12/15/18 04:00 08:13 08:36 Temperature 98.4 F Pulse Rate 63 61 91 H Respiratory 18 20 Rate Blood Pressure 133/43 Blood Pressure 145/59 [Right] O2 Sat by Pulse 100 99 Oximetry 12/15/18 12/15/18 12:14 12:22 Temperature 98.2 F Pulse Rate 65 62 Respiratory 20 Rate Blood Pressure 104/36 Blood Pressure [Right] O2 Sat by Pulse 98 Oximetry - General Appearance General appearance: appears stated age, obese EENT: ATNC, PERRL Neck: no JVD Respiratory: Present: Clear to Ascultation Cardiology: regular, S1S2 Gastrointestinal: normal, normoactive bowel sounds Integumentary: no rash Neurologic: alert and oriented x3, reflexes 2+ and symmetric, CN 3-12 intact Musculoskeletal: deferred Psychiatric: mood/affect appropriate - Lab 12/12/18 03:01 12/15/18 08:46 Most recent lab results Calcium 8.6 mg/dL (8.4-10.2) 12/15/18 08:46 Medications & Allergies - Medications Allergies/Adverse Reactions: Allergies aspirin Adverse Reaction (Verified 01/23/17 16:26) HEART FLUTTER Home Medications: Home Medications Medication Instructions Recorded Confirmed Last Taken Type AtorvaSTATin [Lipitor] 80 mg PO QHS #30 tablet 10/08/17 12/11/18 07/12/18 Rx Apixaban [Eliquis] 5 mg PO BID MDD 10 mg 01/01/18 12/11/18 07/12/18 History Cinacalcet HCl [Sensipar] 60 mg PO DAILY MDD 60 mg 01/01/18 12/11/18 07/12/18 History Metoprolol [Lopressor TAB] 25 mg BID 07/13/18 12/11/18 07/12/18 History Pantoprazole [Protonix TAB] 40 mg PO BID #30 tablet 11/07/18 12/11/18 Unknown Rx L. Acidophilus/Bifid. Animalis 1 each PO DAILY 12/11/18 12/11/18 Unknown History [Dialyvite Chewable Probiotic] Sevelamer HCl [Renagel] 2,400 mg PO TID 12/11/18 12/11/18 Unknown History Active Medications: Generic Name Dose Route Start Last Admin Trade Name Freq PRN Reason Stop Dose Admin Acetaminophen 650 mg 12/11/18 23:32 Tylenol PO Q4H PRN Pain MILD(1-3)/Fever >100.5/AREVALO Apixaban 5 mg 12/11/18 23:45 12/15/18 12:21 Eliquis PO 5 mg BID ANNETTE Administration Protocol Atorvastatin Calcium 80 mg 12/12/18 22:00 12/14/18 22:11 Lipitor PO 80 mg QHS ANNETTE Administration Cinacalcet 60 mg 12/12/18 10:00 12/15/18 12:22 Sensipar PO 60 mg QDAY ANNETTE Administration Sodium Chloride 100 mls @ 999 mls/hr 12/11/18 14:38 Nacl 0.9% IV ARGENIS PRN Hypotension Metoprolol Tartrate 25 mg 12/11/18 23:45 12/15/18 12:22 Lopressor PO 25 mg BID ANNETTE Administration Miscellaneous Medication 1 each 12/12/18 10:00 L. Acidophilus/Bifid. Animalis [Dialyvite Chewable Probiotic] PO DAILY ANNETTE Ondansetron HCl 4 mg 12/11/18 23:32 Zofran IV Q8H PRN Nausea And Vomiting Oxycodone/Acetaminophen 1 tab 12/11/18 23:32 12/14/18 22:13 Percocet 5/325 PO 1 tab Q6H PRN Administration Pain, Moderate (4-6) Pantoprazole Sodium 40 mg 12/11/18 23:45 12/15/18 12:22 Protonix PO 40 mg BID ANNETTE Administration Sevelamer Carbonate 2,400 mg 12/12/18 08:00 12/15/18 12:22 Renvela PO 2,400 mg TIDWM ANNETTE Administration Sodium Chloride 10 ml 12/12/18 10:00 12/15/18 12:24 Sodium Chloride Flush Syringe 10 Ml IV 10 ml BID ANNETTE Administration Sodium Chloride 10 ml 12/11/18 23:32 Sodium Chloride Flush Syringe 10 Ml IV PRN PRN LINE FLUSH
[2018-12-16] MEDS: SENSIPAR PO SCH (09:29)
[2018-12-16] MEDS: RENVELA PO SCH ×3 (09:30→18:27)
[2018-12-16] MEDS: PROTONIX PO SCH (09:30)
[2018-12-16] MEDS: LOPRESSOR PO SCH (09:30)
[2018-12-16] MEDS: ELIQUIS PO SCH (09:30)
[2018-12-16] MEDS ORDERED: NACL 0.9 (PRIMING MACHINE ONLY DIALYSIS) MC ONE (12:28)
--- NOTE | 2018-12-16 12:28 | Progress Note ---
Assessment and Plan ESRD volume overload HTN , stable Respiratory distress due to volume overload Abnormal troponin likely due to ESRd no chest pain Anemia stable, due to ESRD CHF? EF unknown - echo showed preserved EF, likely DD h/o CAD s/p stent, cont home meds Back pain, xry showed arthritis - resumed home meds, HD per renal - patient states she is compliant with meds, and diet/fluid restriction - monitor BMP, monitor BP, preserved Ef on 2d echo - Dvt Px Disposition; reports missing Milagros pad , states cannot go home w/o it. consulted CM, likely to be arranged by tomorrow Brief History: 67-year-old female with a past medical history of end-stage renal disease on dialysis Saturday, , and Saturday, CHF, CAD with stent 2 and multiple other chronic conditions and previous surgeries (see triage) presents to the hospital with complaints of shortness of breath fro one day. She denies fever, chest pain,vomiting, or diaphoresis. She complains of left flank pain with nausea. She does not make urine. Denies chest pain. PMD: [facility]. Nephrologis Dr Caballero. She was admitted for emergent HD and further management. CXR: Cardiomegaly, pulmonary venous congestion Physical exam: General appearance: Present: no acute distress, obese - EENT Eyes: PERRL, EOM intact ENT: hearing intact, clear oral mucosa Ears: bilateral: normal - Neck Neck: supple, normal ROM - Respiratory Respiratory effort: normal Respiratory: bilateral: CTA - Cardiovascular Rhythm: regular Heart Sounds: Present: S1 & S2. Absent: gallop, rub Extremities: pulses intact, No edema, normal color, Full ROM - Gastrointestinal General gastrointestinal: Present: soft, non-tender, non-distended, normal bowel sounds - Integumentary Integumentary: clear, warm, dry - Musculoskeletal Musculoskeletal: 1, strength equal bilaterally - Neurologic Neurologic: moves all extremities - Psychiatric Psychiatric: memory intact, appropriate mood/affect, intact judgment & insight Subjective Date of service: 12/15/18 Principal diagnosis: esrd Interval history: ptient seen and examined No chest pain, breathing better back pain stable, pending d/c on arrival for milagros pad Objective - Constitutional Vitals: Vital Signs - 12hr 12/16/18 12/16/18 12/16/18 04:00 08:19 10:45 Temperature 98.1 F 98.4 F 98.2 F Pulse Rate 66 66 63 Respiratory 18 20 18 Rate Blood Pressure 105/59 135/59 Blood Pressure 127/49 [Right] O2 Sat by Pulse 98 100 Oximetry 12/16/18 12/16/18 11:00 11:15 Temperature Pulse Rate 61 59 L Respiratory Rate Blood Pressure 132/59 133/61 Blood Pressure [Right] O2 Sat by Pulse Oximetry - Labs CBC & Chem 7: 12/12/18 03:01 12/15/18 08:46 Labs: Abnormal lab results 12/15/18 12/15/18 12/15/18 Range/Units 12:15 16:15 20:40 POC Glucose 145 H 121 H 126 H (70-105) 12/16/18 Range/Units 08:58 POC Glucose 65 L (70-105)
--- NOTE | 2018-12-16 12:32 | Discharge Summary ---
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 Additional Physician Instructions: reports missing Milagros pad states cannot go home w/o it 12/11/18 13:45 Consult to Physician [CONS] Urgent Comment: DR CONNORS NOTIFIED [id number] Consulting Provider: CIRILO CONNORS Physician Instructions: Reason For Exam: esrd/dialysis, sob [facility] Condition: Stable Pertinent studies: CXR Lumber spine XRY 2d echo Hospital course: Brief History: 67-year-old female with a past medical history of end-stage renal disease on dialysis Saturday, , and Saturday, CHF, CAD with stent 2 and multiple other chronic conditions presented to the hospital with complaints of shortness of breath for one day. She denied fever, chest pain,vomiting, or diaphoresis. She complained of left flank pain with nausea. She does not make urine. Her It Compliance Analyst is Dr Caballero. She was admitted for emergent HD and further management. It Compliance Analyst consulted, s/p emergent HD per renal, resumed home meds, placed on diet/fluid restriction, noted preserved Ef on 2d echo. Counseled for fluid restriction. She reported missing Milagros pad following admission to the hospital, consulted CM, Milagros pad arranged before discharge. Patient was discharged home in stable condition with . CXR: Cardiomegaly, pulmonary venous congestion Lumber spine: 1. No acute abnormality lumbar spine. No significant change 2. Mild subtle inc reased sclerotic appearance generally throughout the bony structures, significance of which is uncertain 3.. Chronic deformity of T10-T11 is again noted, stable Discharge Diagnosis and management: ESRD with volume overload HTN , stable Respiratory distress due to volume overload , resolved after HD Abnormal troponin likely due to ESRd, no chest pain, preserved EF on 2D echo Anemia stable, due to ESRD CHF? - echo showed preserved EF, likely DD h/o CAD s/p stent, cont home meds Chronic Back pain, xry showed arthritis Physical exam: General appearance: Present: no acute distress, obese - EENT Eyes: PERRL, EOM intact ENT: hearing intact, clear oral mucosa Ears: bilateral: normal - Neck Neck: supple, normal ROM - Respiratory Respiratory effort: normal Respiratory: bilateral: CTA - Cardiovascular Rhythm: regular Heart Sounds: Present: S1 & S2. Absent: gallop, rub Extremities: pulses intact, No edema, normal color, Full ROM - Gastrointestinal General gastrointestinal: Present: soft, non-tender, non-distended, normal bowel sounds - Integumentary Integumentary: clear, warm, dry - Musculoskeletal Musculoskeletal: 1, strength equal bilaterally - Neurologic Neurologic: moves all extremities - Psychiatric Psychiatric: memory intact, appropriate mood/affect, intact judgment & insight Disposition: DC-01 TO HOME OR SELFCARE Time spent for discharge: 34 minutes Core Measure Documentation - Palliative Care Palliative Care/ Comfort Measures: Not Applicable - Core Measures Any of the following diagnoses?: none Exam - Constitutional Vitals: Temp Pulse Resp BP Pulse Ox 98.2 F 59 L 18 133/61 100 12/16/18 10:45 12/16/18 11:15 12/16/18 10:45 12/16/18 11:15 12/16/18 08:19 Plan Activity: other (wheek chair bound) Weight Bearing Status: Non-Weight Bearing Diet: renal Follow up with: VON GALARZA MD [Primary Care Provider] - 7 Days Forms: Accompanied Note Prescriptions: Cyclobenzaprine HCl [Flexeril 5 MG TAB] 5 mg PO TID #15 tab
[2018-12-16] MEDS: PERCOCET 5/325 PO PRN (12:33)
--- NOTE | 2018-12-16 12:58 | Progress Note ---
Assessment and Plan - Patient Problems (1) ESRD needing dialysis Current Visit: Yes Status: Acute Plan to address problem: End-stage renal disease with plan for hemodialysis Saturday schedule Repeat Dialysis today prior to discharge Hemodialysis orders have been placed. (2) Anemia in CKD (chronic kidney disease) Current Visit: No Status: Chronic Plan to address problem: Anemia mild We'll hold off erythropoietin stimulating agents Monitor CBC (3) Hypertension Current Visit: No Status: Chronic Qualifiers: Hypertension type: essential hypertension Qualified Code(s): I10 - Essential (primary) hypertension Plan to address problem: Hypertension uncontrolled Continue medications (4) Hyponatremia with excess extracellular fluid volume Current Visit: Yes Status: Acute Plan to address problem: Hyponatremia 2/2 excessive fluid intake - Free water restriction - Hemodialysis per schedule. Subjective Principal diagnosis: esrd Interval history: 67-year-old lady with medical history significant for hypertension end-stage renal disease on hemodialysis Saturday admitted with volume overload. Patient is seen today She complains of flank pain worse with movements, will give flexeril Denies any shortness of breath no orthopnea or PND. Objective - Vital Signs Vital signs: Vital Signs - 12hr 12/16/18 12/16/18 12/16/18 04:00 08:19 10:45 Temperature 98.1 F 98.4 F 98.2 F Pulse Rate 66 66 63 Respiratory 18 20 18 Rate Blood Pressure 105/59 135/59 Blood Pressure 127/49 [Right] O2 Sat by Pulse 98 100 Oximetry 12/16/18 12/16/18 12/16/18 11:00 11:15 11:30 Temperature Pulse Rate 61 59 L 57 L Respiratory Rate Blood Pressure 132/59 133/61 118/51 Blood Pressure [Right] O2 Sat by Pulse Oximetry 12/16/18 12/16/18 12/16/18 11:45 12:00 12:15 Temperature Pulse Rate 59 L 59 L 63 Respiratory Rate Blood Pressure 116/53 124/55 137/39 Blood Pressure [Right] O2 Sat by Pulse Oximetry 12/16/18 12/16/18 12/16/18 12:30 12:33 12:45 Temperature Pulse Rate 63 63 Respiratory 18 Rate Blood Pressure 101/50 103/52 Blood Pressure [Right] O2 Sat by Pulse Oximetry - General Appearance General appearance: well-developed, well-nourished EENT: ATNC, PERRL Neck: no JVD Respiratory: Present: Clear to Ascultation Cardiology: regular, S1S2 Gastrointestinal: normal, normoactive bowel sounds Integumentary: no rash Neurologic: alert and oriented x3, CN 3-12 intact Musculoskeletal: deferred Psychiatric: mood/affect appropriate - Lab 12/12/18 03:01 12/15/18 08:46 Most recent lab results Calcium 8.6 mg/dL (8.4-10.2) 12/15/18 08:46 - Imaging Chest x-ray: report reviewed Medications & Allergies - Medications Allergies/Adverse Reactions: Allergies aspirin Adverse Reaction (Verified 01/23/17 16:26) HEART FLUTTER Home Medications: Home Medications Medication Instructions Recorded Confirmed Last Taken Type AtorvaSTATin [Lipitor] 80 mg PO QHS #30 tablet 10/08/17 12/11/18 07/12/18 Rx Apixaban [Eliquis] 5 mg PO BID MDD 10 mg 01/01/18 12/11/18 07/12/18 History Cinacalcet HCl [Sensipar] 60 mg PO DAILY MDD 60 mg 01/01/18 12/11/18 07/12/18 History Metoprolol [Lopressor TAB] 25 mg BID 07/13/18 12/11/18 07/12/18 History Pantoprazole [Protonix TAB] 40 mg PO BID #30 tablet 11/07/18 12/11/18 Unknown Rx L. Acidophilus/Bifid. Animalis 1 each PO DAILY 12/11/18 12/11/18 Unknown History [Dialyvite Chewable Probiotic] Sevelamer HCl [Renagel] 2,400 mg PO TID 12/11/18 12/11/18 Unknown History Active Medications: Generic Name Dose Route Start Last Admin Trade Name Freq PRN Reason Stop Dose Admin Acetaminophen 650 mg 12/11/18 23:32 Tylenol PO Q4H PRN Pain MILD(1-3)/Fever >100.5/AREVALO Apixaban 5 mg 12/11/18 23:45 12/16/18 09:30 Eliquis PO 5 mg BID ANNETTE Administration Protocol Atorvastatin Calcium 80 mg 12/12/18 22:00 12/15/18 21:42 Lipitor PO 80 mg QHS ANNETTE Administration Cinacalcet 60 mg 12/12/18 10:00 12/16/18 09:29 Sensipar PO 30 mg QDAY ANNETTE Administration Cyclobenzaprine HCl 10 mg 12/16/18 12:51 Flexeril PO 12/16/18 12:52 .ONE STA Sodium Chloride 100 mls @ 999 mls/hr 12/11/18 14:38 Nacl 0.9% IV ARGENIS PRN Hypotension Metoprolol Tartrate 25 mg 12/11/18 23:45 12/16/18 09:30 Lopressor PO 25 mg BID ANNETTE Administration Miscellaneous Medication 1 each 12/12/18 10:00 L. Acidophilus/Bifid. Animalis [Dialyvite Chewable Probiotic] PO DAILY ANNETTE Ondansetron HCl 4 mg 12/11/18 23:32 Zofran IV Q8H PRN Nausea And Vomiting Oxycodone/Acetaminophen 1 tab 12/11/18 23:32 12/16/18 12:33 Percocet 5/325 PO 1 tab Q6H PRN Administration Pain, Moderate (4-6) Pantoprazole Sodium 40 mg 12/11/18 23:45 12/16/18 09:30 Protonix PO 40 mg BID ANNETTE Administration Sevelamer Carbonate 2,400 mg 12/12/18 08:00 12/16/18 09:30 Renvela PO 2,400 mg TIDWM ANNETTE Administration Sodium Chloride 10 ml 12/12/18 10:00 12/15/18 21:43 Sodium Chloride Flush Syringe 10 Ml IV 10 ml BID ANNETTE Administration Sodium Chloride 10 ml 12/11/18 23:32 Sodium Chloride Flush Syringe 10 Ml IV PRN PRN LINE FLUSH
[2018-12-16] MEDS ORDERED: FLEXERIL PO STA ×2 (13:06→16:20)
[2018-12-16 16:42] VITALS: BP 115/53
[2018-12-18 08:27] LABS: Hepatitis B Surface Antigen Nonreactive (Negative)
== END 2018-12-16 18:30 | disposition home or self-care (01) | DRG 640 ==
LOC: ED 11:22 → 4A 13:48
PROVIDERS: ADMIT Internal Medicine; ATTEND Internal Medicine
PROC: 5A1D70Z Performance of Urinary Filtration, Intermittent, Less than 6 Hours Per Day (ICD-10-PCS; principal; 2018-12-11)
PROC: 5A1D70Z Performance of Urinary Filtration, Intermittent, Less than 6 Hours Per Day (ICD-10-PCS; 2018-12-13)
PROC: 5A1D70Z Performance of Urinary Filtration, Intermittent, Less than 6 Hours Per Day (ICD-10-PCS; 2018-12-15)
PROC: 5A1D70Z Performance of Urinary Filtration, Intermittent, Less than 6 Hours Per Day (ICD-10-PCS; 2018-12-16)
DX: E87.70 Fluid overload, unspecified (principal); N18.6 End stage renal disease; I13.2 Hypertensive heart and chronic kidney disease with heart failure and with stage 5 chronic kidney disease, or end stage renal disease; N25.81 Secondary hyperparathyroidism of renal origin; E87.1 Hypo-osmolality and hyponatremia; E87.5 Hyperkalemia; D63.1 Anemia in chronic kidney disease; E11.22 Type 2 diabetes mellitus with diabetic chronic kidney disease; K21.9 Gastro-esophageal reflux disease without esophagitis; E78.00 Pure hypercholesterolemia, unspecified; E78.5 Hyperlipidemia, unspecified; Z90.49 Acquired absence of other specified parts of digestive tract; Z90.710 Acquired absence of both cervix and uterus; Z90.89 Acquired absence of other organs; Z95.828 Presence of other vascular implants and grafts; Z82.49 Family history of ischemic heart disease and other diseases of the circulatory system; Z95.5 Presence of coronary angioplasty implant and graft; Z79.01 Long term (current) use of anticoagulants; Z79.899 Other long term (current) drug therapy; Z88.6 Allergy status to analgesic agent; Z87.442 Personal history of urinary calculi; Z86.73 Personal history of transient ischemic attack (TIA), and cerebral infarction without residual deficits; Z79.84 Long term (current) use of oral hypoglycemic drugs
CPT/HCPCS: 36415; 71045; 72100; 80048; 80053; 80061; 80074; 82962; 83036; 83880; 84132; 84484; 85007; 85025; 93005; 93010; 93306; G0378; A9270-GY; J1644; J7030

== ENCOUNTER 2019-02-16 21:38 | Emergency (ER) | payer MEDICARE ==
--- NOTE | 2019-02-16 21:51 | Emergency Department Report ---
Blank Doc - Documentation Documentation: This is a 68-year-old female that presents with right leg pain. Denies any in juries or trauma. This initial assessment/diagnostic orders/clinical plan/treatment(s) is/are subject to change based on patient's health status, clinical progression and re- assessment by fellow clinical providers in the ED. Further treatment and workup at subsequent clinical providers discretion. Patient/guardians urged not to elope from the ED as their condition may be serious if not clinically assessed and managed. Initial orders include: 1- Patient sent to [facility] for further evaluation and treatment 2- Doppler studies to r/o DVT
--- NOTE | 2019-02-17 02:47 | Vascular Lab Report ---
PROCEDURE: VL VENOUS DUPLEX LE RT TECHNIQUE: Duplex Doppler sonography of the right lower extremity. Agudelo scale imaging with and witho ut compression, spectral waveform analysis with and without augmentation, and color flow Doppler were employed. HISTORY: right leg pain COMPARISONS: None FINDINGS: Deep Venous Thrombus: None Superficial Venous Thrombus: None Venous valvular incompetence: None Soft tissue abnormality: None IMPRESSION: No evidence of deep venous thrombosis This document is electronically signed by Stuart Carpio MD., Feb 17 2019 02:45:28 AM ET
--- NOTE | 2019-02-17 04:07 | Emergency Department Report ---
ED Lower Extremity HPI - General Chief Complaint: Extremity Injury, Lower Stated Complaint: RIGHT LEG PAIN Time Seen by Provider: 02/16/19 21:50 Source: patient Mode of arrival: Wheelchair Limitations: No Limitations - History of Present Illness Initial Comments: 68-year-old female with a past medical history of multiple chronic conditions since the hospital complaining of nontraumatic right lateral leg pain 1 day. Patient states that she is having intermittent sharp pain just distal to the lateral knee. No aggravating or alleviating factors. Pain does not radiate. She's had similar pain on the right lateral thigh in the past. She has a history of previous CVA and is not ambulatory, wheelchair bound, and denies any recent fall. Patient also denies history of PE/DVT and she does not know why she is currently on Eliquis. She denies fever, chest pain, or shortness of breath. - Related Data Home Medications Medication Instructions Recorded Confirmed Last Taken Apixaban [Eliquis] 5 mg PO BID MDD 10 mg 01/01/18 12/11/18 07/12/18 Cinacalcet HCl [Sensipar] 60 mg PO DAILY MDD 60 mg 01/01/18 12/11/18 07/12/18 Metoprolol [Lopressor TAB] 25 mg BID 07/13/18 12/11/18 07/12/18 L. Acidophilus/Bifid. Animalis 1 each PO DAILY 12/11/18 12/11/18 Unknown [Dialyvite Chewable Probiotic] Sevelamer HCl [Renagel] 2,400 mg PO TID 12/11/18 12/11/18 Unknown Previous Rx's Medication Instructions Recorded Last Taken Type AtorvaSTATin [Lipitor] 80 mg PO QHS #30 tablet 10/08/17 07/12/18 Rx Pantoprazole [Protonix TAB] 40 mg PO BID #30 tablet 11/07/18 Unknown Rx Cyclobenzaprine HCl [Flexeril 5 MG 5 mg PO TID #15 tab 12/16/18 Unknown Rx TAB] Allergies Allergy/AdvReac Type Severity Reaction Status Date / Time aspirin AdvReac HEART Verified 01/23/17 16:26 FLUTTER ED Review of Systems ROS: Stated complaint: RIGHT LEG PAIN Other details as noted in HPI Comment: All other systems reviewed and negative ED Past Medical Hx - Past Medical History Hx Hypertension: Yes Hx Heart Attack/AMI: Yes (03/16) Hx Congestive Heart Failure: Yes Hx Diabetes: Yes Hx Pulmonary Embolism: No Hx GERD: Yes Hx Renal Disease: Yes (DIALYSIS ) Hx Sickle Cell Disease: No Hx Arthritis: Yes Hx Seizures: No Hx Kidney Stones: Yes Hx Asthma: No Hx COPD: No Hx Dementia: No Hx HIV: No Additional medical history: benign mass on intestine. HIGH CHOLESTEROL. ANEMIA. TIA - Surgical History Hx Coronary Stent: Yes (x2) Hx Open Heart Surgery: No Hx Pacemaker: No Hx Internal Defibrillator: No Hx Cholecystectomy: Yes Hx Appendectomy: Yes Hx Breast Surgery: Yes (LEFT BREAST LUMPECTOMY) Additional Surgical History: AV fistula left arm, hysterectomy, , tonsillectomy, colostomy, colostomy reversal. HERNIA REPAIR. LITHOTRIPSY - Social History Smoking Status: Never Smoker Substance Use Type: None - Medications Home Medications: Home Medications Medication Instructions Recorded Confirmed Last Taken Type AtorvaSTATin [Lipitor] 80 mg PO QHS #30 tablet 10/08/17 12/11/18 07/12/18 Rx Apixaban [Eliquis] 5 mg PO BID MDD 10 mg 01/01/18 12/11/18 07/12/18 History Cinacalcet HCl [Sensipar] 60 mg PO DAILY MDD 60 mg 01/01/18 12/11/18 07/12/18 History Metoprolol [Lopressor TAB] 25 mg BID 07/13/18 12/11/18 07/12/18 History Pantoprazole [Protonix TAB] 40 mg PO BID #30 tablet 11/07/18 12/11/18 Unknown Rx L. Acidophilus/Bifid. Animalis 1 each PO DAILY 12/11/18 12/11/18 Unknown History [Dialyvite Chewable Probiotic] Sevelamer HCl [Renagel] 2,400 mg PO TID 12/11/18 12/11/18 Unknown History Cyclobenzaprine HCl [Flexeril 5 MG 5 mg PO TID #15 tab 12/16/18 Unknown Rx TAB] ED Physical Exam - General Limitations: No Limitations - Other Other exam information: General: No limitations, patient is alert in no acute distress Head exam: Atraumatic, normocephalic Eyes exam: Normal appearance ENT: Moist mucous membrane Neck exam: Normal inspection, full range of motion, no meningismus nontender Respiratory exam: Clear to auscultation bilateral, no wheezes, rales, crackles Cardiovascular: Normal rate and rhythm, normal heart sounds Abdomen: Soft, nondistended, and nontender, with normal bowel sounds, no rebound, or guarding Extremity: Patient has some superficial skin ulcerations to the right leg noted that do not have any active drainage, warmth, or erythema. The also nontender to palpation. Patient complains of pain just distal to the right lateral knee however, she does not have pain at this time it is not tender to palpation. 2+ DP pulse. Back: Normal Inspection, full range of motion, no tenderness Neurologic: Alert, oriented x3, sensation intact equal bilateral. Patient has equal motor strength bilaterally as well. She has equal bilateral leg weakness and has some difficulty lifting against gravity 4/5 strength Psychiatric: normal affect, normal mood Skin: Warm, dry, intact ED Course Vital Signs 02/17/19 02:00 Temperature 98.4 F Pulse Rate 66 Respiratory 20 Rate Blood Pressure 152/61 [Right] O2 Sat by Pulse 100 Oximetry ED Lower Extremity MDM - Radiology Data Radiology results: report reviewed (right leg DVT exam negative) - Medical Decision Making Patient has not had any pain on examination. Pain is intermittent and sharp- like. Possible neuropathic/radicular pain versus musculoskeletal. No DVT in the ED. Outpatient follow-up advised.. - Differential Diagnosis neuropathy, radiculopathy, DVT, arthritis Critical Care Time: No Critical care attestation.: If time is entered above; I have spent that time in minutes in the direct care of this critically ill patient, excluding procedure time. ED Disposition Clinical Impression: Right leg pain Disposition: - TO HOME OR SELFCARE Is pt being admited?: No Does the pt Need Aspirin: No Condition: Stable Instructions: Arthralgia (ED) Additional Instructions: Take [id number] medication as needed for pain. Follow up with your doctor or the clinic/doctor provided. Return if symptoms worsen as indicated by your discharge instructions Referrals: your, doctor [Other] - 2-3 Days Time of Disposition: 04:09
[2019-02-17 05:49] VITALS: BP 148/68
== END 2019-02-17 06:25 | disposition home or self-care (01) ==
LOC: ED 21:38
DX: M25.561 Pain in right knee (principal); I11.0 Hypertensive heart disease with heart failure; I50.9 Heart failure, unspecified; E11.9 Type 2 diabetes mellitus without complications; K21.9 Gastro-esophageal reflux disease without esophagitis; I13.0 Hypertensive heart and chronic kidney disease with heart failure and stage 1 through stage 4 chronic kidney disease, or unspecified chronic kidney disease; E11.22 Type 2 diabetes mellitus with diabetic chronic kidney disease; N18.9 Chronic kidney disease, unspecified; M19.90 Unspecified osteoarthritis, unspecified site; E78.00 Pure hypercholesterolemia, unspecified; Z95.5 Presence of coronary angioplasty implant and graft; Z90.49 Acquired absence of other specified parts of digestive tract; Z90.710 Acquired absence of both cervix and uterus; Z86.2 Personal history of diseases of the blood and blood-forming organs and certain disorders involving the immune mechanism; Z86.73 Personal history of transient ischemic attack (TIA), and cerebral infarction without residual deficits; Z79.899 Other long term (current) drug therapy; Z88.6 Allergy status to analgesic agent

== ENCOUNTER 2019-11-21 12:29 | Inpatient (IN) | payer MEDICARE ==
--- NOTE | 2019-11-21 13:55 | Emergency Department Report ---
<NEYMAR CHRISTIAN M - Last Filed: 11/21/19 14:19> ED Shortness of Breath HPI - General Chief Complaint: Dyspnea/Respdistress Stated Complaint: SHORTNESS OF BREATH Time Seen by Provider: 11/21/19 13:52 Source: patient, EMS Mode of arrival: Stretcher Limitations: Physical Limitation - History of Present Illness Initial Comments: This is a pleasant 68-year-old lady end-stage renal on hemodialysis. She states she went for her regularly scheduled "chair at 11 AM". She started to vomit and the center decided to send her to the emergency department. She does not identify any other problem. She states that she is not nauseated at this time. She has not missed any dialysis sessions. She states "I never do". Hospital course 02/15: Brief History: 67-year-old female with a past medical history of end-stage renal disease on dialysis Saturday, , and Saturday, CHF, CAD with stent 2 and multiple other chronic conditions presented to the hospital with complaints of shortness of breath for one day. She denied fever, chest pain,vomiting, or diaphoresis. She complained of left flank pain with nausea. She does not make urine. Her Street Sweeper is Dr Caballero. She was admitted for emergent HD and further m anagement. Street Sweeper consulted, s/p emergent HD per renal, resumed home meds, placed on diet/fluid restriction, noted preserved Ef on 2d echo. Counseled for fluid restriction. She reported missing Milagros pad following admission to the hospital, consulted , Milagros pad arranged before discharge. Patient was discharged home in stable condition with . CXR: Cardiomegaly, pulmonary venous congestion Lumber spine: 1. No acute abnormality lumbar spine. No significant change 2. Mild subtle in creased sclerotic appearance generally throughout the bony structures, significance of which is uncertain 3.. Chronic deformity of T10-T11 is again noted, stable Discharge Diagnosis and management: ESRD with volume overload HTN , stable Respiratory distress due to volume overload , resolved after HD Abnormal troponin likely due to ESRd, no chest pain, preserved EF on 2D echo Anemia stable, due to ESRD CHF? - echo showed preserved EF, likely DD h/o CAD s/p stent, cont home meds Chronic Back pain, xry showed arthritis - Related Data Home Medications Medication Instructions Recorded Confirmed Last Taken Apixaban [Eliquis] 5 mg PO BID MDD 10 mg 01/01/18 12/11/18 07/12/18 Cinacalcet HCl [Sensipar] 60 mg PO DAILY MDD 60 mg 01/01/18 12/11/18 07/12/18 Metoprolol [Lopressor TAB] 25 mg BID 07/13/18 12/11/18 07/12/18 L. Acidophilus/Bifid. Animalis 1 each PO DAILY 12/11/18 12/11/18 Unknown [Dialyvite Chewable Probiotic] sevelamer HCL [Renagel] 2,400 mg PO TID 12/11/18 12/11/18 Unknown Previous Rx's Medication Instructions Recorded Last Taken Type AtorvaSTATin [Lipitor] 80 mg PO QHS #30 tablet 10/08/17 07/12/18 Rx Pantoprazole [Protonix TAB] 40 mg PO BID #30 tablet 11/07/18 Unknown Rx Cyclobenzaprine HCl [Flexeril 5 MG 5 mg PO TID #15 tab 12/16/18 Unknown Rx TAB] Allergies Allergy/AdvReac Type Severity Reaction Status Date / Time aspirin AdvReac HEART Verified 01/23/17 16:26 FLUTTER ED Review of Systems Constitutional: denies: chills, fever Eyes: denies: eye pain, vision change ENT: denies: ear pain, throat pain Respiratory: denies: cough, shortness of breath, wheezing Cardiovascular: denies: chest pain, palpitations Endocrine: no symptoms reported Gastrointestinal: denies: abdominal pain, nausea, diarrhea Genitourinary: denies: urgency, dysuria, discharge Musculoskeletal: denies: back pain, joint swelling Skin: denies: rash, lesions Neurological: denies: headache, weakness, paresthesias Psychiatric: denies: anxiety, depression Hematological/Lymphatic: denies: easy bleeding, easy bruising ED Past Medical Hx - Past Medical History Hx Hypertension: Yes Hx Heart Attack/AMI: Yes (03/16) Hx Congestive Heart Failure: Yes Hx Diabetes: Yes Hx Pulmonary Embolism: No Hx GERD: Yes Hx Renal Disease: Yes (DIALYSIS ) Hx Sickle Cell Disease: No Hx Arthritis: Yes Hx Seizures: No Hx Kidney Stones: Yes Hx Asthma: No Hx COPD: No Hx Dementia: No Hx HIV: No Additional medical history: benign mass on intestine. HIGH CHOLESTEROL. ANEMIA. TIA. Patient answers to the affirmative that she is on Eliquis for history of A. fib. I am not sure if this is accurate. - Surgical History Hx Coronary Stent: Yes (x2) Hx Open Heart Surgery: No Hx Pacemaker: No Hx Internal Defibrillator: No Hx Cholecystectomy: Yes Hx Appendectomy: Yes Hx Breast Surgery: Yes (LEFT BREAST LUMPECTOMY) Additional Surgical History: AV fistula left arm, hysterectomy, , tonsillectomy, colostomy, colostomy reversal. HERNIA REPAIR. LITHOTRIPSY - Social History Smoking Status: Never Smoker Substance Use Type: None - Medications Home Medications: Home Medications Medication Instructions Recorded Confirmed Last Taken Type AtorvaSTATin [Lipitor] 80 mg PO QHS #30 tablet 10/08/17 12/11/18 07/12/18 Rx Apixaban [Eliquis] 5 mg PO BID MDD 10 mg 01/01/18 12/11/18 07/12/18 History Cinacalcet HCl [Sensipar] 60 mg PO DAILY MDD 60 mg 01/01/18 12/11/18 07/12/18 History Metoprolol [Lopressor TAB] 25 mg BID 07/13/18 12/11/18 07/12/18 History Pantoprazole [Protonix TAB] 40 mg PO BID #30 tablet 11/07/18 12/11/18 Unknown Rx L. Acidophilus/Bifid. Animalis 1 each PO DAILY 12/11/18 12/11/18 Unknown History [Dialyvite Chewable Probiotic] sevelamer HCL [Renagel] 2,400 mg PO TID 12/11/18 12/11/18 Unknown History Cyclobenzaprine HCl [Flexeril 5 MG 5 mg PO TID #15 tab 12/16/18 Unknown Rx TAB] ED Physical Exam - General Limitations: Physical Limitation General appearance: alert, in no apparent distress - Head Head exam: Present: atraumatic, normocephalic - Eye Eye exam: Present: normal appearance. Absent: scleral icterus - ENT ENT exam: Present: mucous membranes moist - Neck Neck exam: Present: normal inspection - Respiratory Respiratory exam: Present: normal lung sounds bilaterally. Absent: respiratory distress - Cardiovascular Cardiovascular Exam: Present: regular rate, normal rhythm. Absent: systolic murmur, diastolic murmur, rubs, gallop - GI/Abdominal GI/Abdominal exam: Present: soft, normal bowel sounds. Absent: distended, ten derness, guarding, rebound, rigid - Extremities Exam Extremities exam: Present: other (Bilateral leg edema). Absent: calf tenderness - Back Exam Back exam: Present: normal inspection (On limited inspection) - Neurological Exam Neurological exam: Present: alert, oriented X3, CN II-XII intact. Absent: motor sensory deficit - Psychiatric Psychiatric exam: Present: normal affect, normal mood - Skin Skin exam: Present: warm, dry, intact, normal color. Absent: rash ED Medical Decision Making - EKG Data -: EKG Interpreted by Me EKG shows normal: sinus rhythm, axis, intervals, QRS complexes, ST-T waves Rate: normal - EKG Data Interpretation: no acute changes ED Disposition Clinical Impression: End-stage renal disease needing dialysis, Acute hyperkalemia Disposition: OP ADMIT IP TO THIS HOSP Condition: Stable <TYSON ROMAN - Last Filed: 11/21/19 18:04> ED Review of Systems ROS: Stated complaint: SHORTNESS OF BREATH Other details as noted in HPI ED Course Vital Signs 11/21/19 11/21/19 11/21/19 12:44 12:46 12:47 Temperature 99.1 F Pulse Rate 80 Respiratory 20 Rate Blood Pressure 161/74 O2 Sat by Pulse 100 100 100 Oximetry 11/21/19 11/21/19 11/21/19 13:00 13:16 13:31 Temperature Pulse Rate 77 Respiratory 21 Rate Blood Pressure 161/74 178/77 172/74 O2 Sat by Pulse 99 100 100 Oximetry 11/21/19 11/21/19 11/21/19 13:45 14:01 14:15 Temperature Pulse Rate 83 80 82 Respiratory 21 23 29 H Rate Blood Pressure 168/83 168/83 168/83 O2 Sat by Pulse 99 100 100 Oximetry 11/21/19 11/21/19 11/21/19 14:31 14:45 15:00 Temperature Pulse Rate 78 80 79 Respiratory 24 15 24 Rate Blood Pressure 168/83 161/83 160/70 O2 Sat by Pulse 100 99 98 Oximetry 11/21/19 11/21/19 11/21/19 15:15 15:30 15:45 Temperature Pulse Rate 80 78 78 Respiratory 29 H 22 28 H Rate Blood Pressure 166/71 157/53 153/57 O2 Sat by Pulse 99 99 98 Oximetry 11/21/19 11/21/19 11/21/19 16:00 16:15 16:30 Temperature Pulse Rate 80 85 Respiratory 23 22 Rate Blood Pressure 145/52 147/51 142/47 O2 Sat by Pulse 99 100 99 Oximetry 11/21/19 11/21/19 11/21/19 16:45 17:01 17:15 Temperature Pulse Rate Respiratory Rate Blood Pressure 142/53 146/37 143/49 O2 Sat by Pulse 100 100 100 Oximetry ED Medical Decision Making - Lab Data Result diagrams: 11/21/19 14:29 11/21/19 14:29 - Radiology Data Radiology results: report reviewed - Medical Decision Making Patient is 68 years old female with history of end-stage renal disease on hemodialysis. Patient went for her regular dialysis today and started having cough. Patient was sent to the ER for further evaluation. Labs reviewed and is unremarkable except for slightly elevated potassium of 5.4 and her chronic elevation of creatinine. Patient blood pressure remained on the higher side. I discussed the patient with Dr. Worrell, final assembly and packing supervisor, he advised to admit the patient to the hospital for dialysis tonight. I discussed the patient with Dr. Jones, he agreed to admit the patient to medical service for further management. Critical Care Time: Yes Critical care time in (mins) excluding proc time.: 30 Critical care attestation.: If time is entered above; I have spent that time in minutes in the direct care of this critically ill patient, excluding procedure time. ED Disposition Is pt being admited?: Yes
--- NOTE | 2019-11-21 14:39 | XRay Report ---
CHEST 1 VIEW [id number] INDICATION / CLINICAL INFORMATION: ETHEL. COMPARISON: 12/10/2018 FINDINGS: SUPPORT DEVICES: None HEART / MEDIASTINUM: Mild cardiomegaly LUNGS / PLEURA: Mildly congested appearance is noted. No definite areas of consolidation are seen. No pneumothorax. ADDITIONAL FINDINGS: No significant additional findings. IMPRESSION: Mild congestion Signer Name: Demetrio Mendez MD Signed: 11/21/2019 2:34 PM Workstation Name: [id number]
[2019-11-21 15:25] LABS: Creatine Kinase MB 1.2 ng/mL (0.0-4.0)
[2019-11-21 15:28] LABS: Alanine Aminotransferase 10 units/L (7-56); Albumin 3.9 g/dL (3.9-5); BUN/Creatinine Ratio 6; Blood Urea Nitrogen 52 mg/dL (7-17); Calcium 9.2 mg/dL (8.4-10.2); Hemolysis Index 3
[2019-11-21 15:30] LABS: Bilirubin,Direct < 0.2 mg/dL (0-0.2)
[2019-11-21 15:55] LABS: Basophils # (Auto) 0.1 K/mm3 (0.0-0.1); Basophils % (Auto) 0.5 % (0.0-1.8); Eosinophils # (Auto) 0.1 K/mm3 (0.0-0.4); Eosinophils % (Auto) 1.3 % (0.0-4.3); Hematocrit 33.8 % (30.3-42.9); Hemoglobin 11.1 gm/dl (10.1-14.3); Lymphocytes # (Auto) 1.1 K/mm3 (1.2-5.4); Lymphocytes % (Auto) 10.1 % (13.4-35.0); Mean Corpuscular HGB Conc 33 % (30-34); Mean Corpuscular Volume 93 fl (79-97); Monocytes # (Auto) 1.1 K/mm3 (0.0-0.8); Monocytes % (Auto) 10.1 % (0.0-7.3); Platelet Count 180 K/mm3 (140-440); Red Blood Count 3.64 M/mm3 (3.65-5.03); Red Cell Distribution Width 16.2 % (13.2-15.2)
[2019-11-21 15:59] LABS: Chol/HDL Ratio 6.55 %; HDL Cholesterol 36 mg/dL (40-59); LDL Cholesterol,Direct 163 mg/dL (50-130)
[2019-11-21 16:05] LABS: INR 1.11 (0.87-1.13)
--- NOTE | 2019-11-21 16:33 | Event Note ---
Patient being admitted here with end-stage renal disease Nausea vomiting volume overload and mild hyperkalemia She will need hemodialysis treatment which will be ordered Case was discussed with emergency room physician Chart was reviewed Hemodialysis order has been placed Nurse is going to inform the dialysis nurse to come and do the dialysis
[2019-11-21 17:28] LABS: Hepatitis B Surface Antigen Non-Reactive (Negative); Hepatitis C Virus Antibody Non-Reactive (NonReactive)
[2019-11-21] MEDS ORDERED: BACTERIOSTATIC SODIUM CHLORIDE 0.9% 30 ML VIAL INFILTRATI ONE (17:31)
[2019-11-21] MEDS ORDERED: SODIUM CHLORIDE*PRIMING MACHINE ONLY FOR DIALYSIS MC ONE (19:19)
--- NOTE | 2019-11-21 20:43 | History and Physical Report ---
History of Present Illness Date of admission: 11/21/19 17:16 Chief complaint: I got sick before dialysis and threw up History of present illness: 68 YO Female with ESRD on HD(T,R,Sa), HTN, HLD, DM, Anemia secondary to ESRD, Metabolic Syndrome, Obesity, presents to ED for evaluation. Pt states that she has experienced generalized weakness over the past 3 to 4 days. Patient states that she presented to her dialysis clinic for her routine scheduled dialysis today but experienced an acute onset of nausea and multiple episodes of vomiting. Patient was unable to undergo dialysis. EMS was notified and upon arrival the patient was found to be in distress and subsequently transported to [facility] for further evaluation and care. Patient seen and evaluated in the emergency department. Lab and imaging studies reviewed. Results discussed with patient and her daughter who was at the bedside during exam and interview. Patient found to have end-stage renal disease in need of dialysis. Nephrology team consulted. Patient placed in observation status and admitted to telemetry for further care due to increased risk of cardiopulmonary and renal decompensation. Pt denies fever, chills, CP, Palpitations, NVD, Syncope, unintentional weight loss, night sweats, recent ill contacts, medication noncompliance, dietary noncompliance. Prior admission on 12/11/2018 reviewed. All listed medication reconciled at time of admission. Past History Past Medical History: diabetes, ESRD, hypertension, other (See HPI) Past Surgical History: appendectomy, cholecystectomy, hernia repair, bowel surgery, Other ( AV fistula left arm, hysterectomy, , tonsillectomy, colostomy, colostomy reversal. HERNIA REPAIR. LITHOTRIPSY) Social history: , lives with family. denies: smoking, alcohol abuse, pr escription drug abuse, IV drug use Family history: diabetes, hypertension Medications and Allergies Allergies Allergy/AdvReac Type Severity Reaction Status Date / Time aspirin AdvReac HEART Verified 01/23/17 16:26 FLUTTER Home Medications Medication Instructions Recorded Confirmed Last Taken Type AtorvaSTATin [Lipitor] 80 mg PO QHS #30 tablet 10/08/17 12/11/18 07/12/18 Rx Apixaban [Eliquis] 5 mg PO BID MDD 10 mg 01/01/18 12/11/18 07/12/18 History Cinacalcet HCl [Sensipar] 60 mg PO DAILY MDD 60 mg 01/01/18 12/11/18 07/12/18 History Metoprolol [Lopressor TAB] 25 mg BID 07/13/18 12/11/18 07/12/18 History Pantoprazole [Protonix TAB] 40 mg PO BID #30 tablet 11/07/18 12/11/18 Unknown Rx L. Acidophilus/Bifid. Animalis 1 each PO DAILY 12/11/18 12/11/18 Unknown History [Dialyvite Chewable Probiotic] sevelamer HCL [Renagel] 2,400 mg PO TID 12/11/18 12/11/18 Unknown History Cyclobenzaprine HCl [Flexeril 5 MG 5 mg PO TID #15 tab 12/16/18 Unknown Rx TAB] Review of Systems Constitutional: no weight loss, no weight gain, no fever, no chills Cardiovascular: no chest pain, no orthopnea, no palpitations, no rapid/irregular heart beat, no edema Respiratory: no cough, no cough with sputum, no excessive sputum, no hemoptysis Gastrointestinal: no nausea, no vomiting, no diarrhea, no constipation Genitourinary Female: no pelvic pain, no flank pain, no menorrhagia, no dysuria, no urinary frequency, no urgency Rectal: no pain, no incontinence, no bleeding Musculoskeletal: no neck stiffness, no neck pain, no arm numbness/tingling Integumentary: no rash, no pruritis, no redness, no sores, no wounds, no jaundice Neurological: no transient paralysis, no paralysis, no weakness, no parathesias, no tingling, no tremors Psychiatric: no anxiety, no change in sleep habits, no insomnia, no change in appetite, no change in libido, no suicidal ideation, no disorientation Endocrine: no cold intolerance, no heat intolerance, no excessive thirst, no polydipsia, no polyuria, no flushing Hematologic/Lymphatic: no easy bruising, no easy bleeding, no lymphadenopathy, no lymphedema Allergic/Immunologic: no urticaria, no wheezing, no anaphylaxis Exam - Constitutional Vitals: Temp Pulse Resp BP Pulse Ox 99.1 F 75 22 128/28 100 11/21/19 18:13 11/21/19 20:16 11/21/19 18:13 11/21/19 20:16 11/21/19 18:01 General appearance: Present: mild distress - EENT Eyes: Present: PERRL ENT: hearing intact, clear oral mucosa - Neck Neck: Present: supple, normal ROM - Respiratory Respiratory effort: normal Respiratory: bilateral: CTA - Cardiovascular Heart Sounds: Present: S1 & S2. Absent: rub, click - Extremities Extremities: pulses symmetrical, No edema Peripheral Pulses: within normal limits - Abdominal General gastrointestinal: Present: soft, non-tender, non-distended, normal bowel sounds Female genitourinary: Present: normal - Integumentary Integumentary: Present: clear, warm, dry - Musculoskeletal Musculoskeletal: gait normal, strength equal bilaterally - Psychiatric Psychiatric: appropriate mood/affect, intact judgment & insight - Neurologic Neurologic: CNII-XII intact, moves all extremities Results - Labs CBC & Chem 7: 11/21/19 14:29 11/21/19 14:29 Labs: Abnormal lab results 11/21/19 11/21/19 Range/Units 14:29 14:29 RBC 3.64 L (3.65-5.03) M/mm3 RDW 16.2 H (13.2-15.2) % Lymph % (Auto) 10.1 L (13.4-35.0) % Spink % (Auto) 10.1 H (0.0-7.3) % Lymph # 1.1 L (1.2-5.4) K/mm3 Spink # 1.1 H (0.0-0.8) K/mm3 Seg Neutrophils % 78.0 H (40.0-70.0) % Seg Neutrophils # 8.4 H (1.8-7.7) K/mm3 Potassium 5.4 H (3.6-5.0) mmol/L Chloride 93.7 L (98-107) mmol/L Carbon Dioxide 21 L (22-30) mmol/L BUN 52 H (7-17) mg/dL Creatinine 9.4 H (0.7-1.2) mg/dL Glucose 135 H (65-100) mg/dL Magnesium 2.40 H (1.7-2.3) mg/dL Alkaline Phosphatase 133 H (35-129) units/L Troponin T 0.075 H (0.00-0.029) ng/mL NT-Pro-B Natriuret Pep 2736 H (0-900) pg/mL Triglycerides 205 H (2-149) mg/dL Cholesterol 236 H (50-199) mg/dL LDL Cholesterol Direct 163 H (50-130) mg/dL HDL Cholesterol 36 L (40-59) mg/dL Assessment and Plan - Patient Problems (1) End stage renal disease Current Visit: Yes Status: Acute Plan to address problem: Nephrology consulted in ED, strict I/O, monitor urine output every shift, daily weight, avoid nephrotoxic agents, dialysis as per renal team. (2) Hypertension Current Visit: Yes Status: Acute Qualifiers: Hypertension type: essential hypertension Qualified Code(s): I10 - Essential (primary) hypertension Plan to address problem: Monitor blood pressure every shift, continue medical management. (3) Hyperlipidemia Current Visit: Yes Status: Acute Qualifiers: Hyperlipidemia type: mixed hyperlipidemia Qualified Code(s): E78.2 - Mixed hyperlipidemia Plan to address problem: Balanced diet, increase physical activity at discharge, low-fat/low-cholesterol diet, statin therapy as clinically indicated. (4) Diabetes Current Visit: Yes Status: Acute Plan to address problem: Sliding scale insulin, consistent carbohydrate diet, Accu-Chek, hypoglycemia protocol (5) DVT prophylaxis Current Visit: Yes Status: Acute Plan to address problem: SCD to bilateral lower extremities while in bed, patient is ambulatory.
[2019-11-21] MEDS ORDERED: ONDANSETRON 4 MG/2 ML INJ IV PRN (20:58)
[2019-11-21] MEDS ORDERED: ALBUTEROL 2.5 MG/3 ML NEBU IH PRN (20:58)
[2019-11-21] MEDS ORDERED: ACETAMINOPHEN 325 MG TAB PO PRN (20:58)
[2019-11-22 06:25] LABS: Calcium 8.9 mg/dL (8.4-10.2)
--- NOTE | 2019-11-22 08:56 | Progress Note ---
Assessment and Plan Assessment and plan: ESRD. Continue hemodialysis per nephrology. Continue daily weight and avoid nephrotoxic agents Hypertension. Continue antihypertensive medications. Hyperlipidemia. Continue statin. Intractable nausea vomiting. Resolved. Patient tolerating diet. Etiology may be secondary to gastroparesis. Diabetes mellitus type 2. Continue Accu-Cheks, sliding scale insulin and consistent carbohydrate diet. Deconditioning. PT/OT evaluation. DVT prophylaxis. Continue SCDs. History Interval history: 68 YO Female with ESRD on HD(T,R,Sa), HTN, HLD, DM, Anemia secondary to ESRD, Metabolic Syndrome, Obesity, presented to ED for complaints of generalized weakness over the past 3 to 4 days [employer]. Patient reportedly presented to her dialysis clinic for her routine scheduled dialysis on the day of admission but experienced an acute onset of nausea and multiple episodes of vomiting which prompted her visit to the emergency room. Patient was admitted for intractable nausea and vomiting and missed hemodialysis. Hospitalist Physical - Constitutional Vitals: Temp Pulse Resp BP Pulse Ox 98.6 F 75 18 137/50 100 11/22/19 07:17 11/22/19 07:17 11/22/19 07:17 11/22/19 07:17 11/22/19 07:17 General appearance: Present: mild distress - EENT Eyes: Present: PERRL, EOM intact ENT: hearing intact, clear oral mucosa, dentition normal - Neck Neck: Present: supple, normal ROM - Respiratory Respiratory effort: normal Respiratory: bilateral: CTA - Cardiovascular Rhythm: regular Heart Sounds: Present: S1 & S2. Absent: gallop, rub - Extremities Extremities: no ischemia, No edema, Full ROM - Abdominal General gastrointestinal: soft, non-tender, non-distended, normal bowel sounds - Integumentary Integumentary: Present: clear, warm, dry - Neurologic Neurologic: CNII-XII intact, moves all extremities MAT score - Mat Score Age > 65: (0) No Aspirin use within the Past 7 Days: (0) No 3 or more CAD Risk Factors: (1) Yes 2 or more Angina events in past 24 hrs: (0) No Known CAD with more than 50% Stenosis: (0) No Elevated Cardiac Markers: (0) No ST Deviation Greater than 0.5mm: (0) No MAT Score: 1 Results - Labs CBC & Chem 7: 11/21/19 14:29 11/22/19 05:55 Labs: Laboratory Last Values WBC 10.8 K/mm3 (4.5-11.0) 11/21/19 14: RBC 3.64 M/mm3 (3.65-5.03) L 11/21/19 14:29 Hgb 11.1 gm/dl (10.1-14.3) 11/21/19 14: Hct 33.8 % (30.3-42.9) 11/21/19 14: MCV 93 fl (79-97) 11/21/19 14: MCH 30 pg (28-32) 11/21/19 14: MCHC 33 % (30-34) 11/21/19 14: RDW 16.2 % (13.2-15.2) H 11/21/19 14: Plt Count 180 K/mm3 (140-440) 11/21/19 14: Lymph % (Auto) 10.1 % (13.4-35.0) L 11/21/19 14: Rock % (Auto) 10.1 % (0.0-7.3) H 11/21/19 14: Eos % (Auto) 1.3 % (0.0-4.3) 11/21/19 14: Baso % (Auto) 0.5 % (0.0-1.8) 11/21/19 14: Lymph # 1.1 K/mm3 (1.2-5.4) L 11/21/19 14: Rock # 1.1 K/mm3 (0.0-0.8) H 11/21/19 14: Eos # 0.1 K/mm3 (0.0-0.4) 11/21/19 14: Baso # 0.1 K/mm3 (0.0-0.1) 11/21/19 14: Seg Neutrophils % 78.0 % (40.0-70.0) H 11/21/19 14: Seg Neutrophils # 8.4 K/mm3 (1.8-7.7) H 11/21/19 14:29 PT 14.4 Sec. (12.2-14.9) 11/21/19 14: INR 1.11 (0.87-1.13) 11/21/19 14:29 APTT 33.0 Sec. (24.2-36.6) 11/21/19 14:29 Sodium 134 mmol/L (137-145) L 11/22/19 05:55 Potassium 3.9 mmol/L (3.6-5.0) D 11/22/19 05:55 Chloride 94.4 mmol/L (98-107) L 11/22/19 05:55 Carbon Dioxide 22 mmol/L (22-30) 11/22/19 05:55 Anion Gap 22 mmol/L 11/22/19 05:55 BUN 29 mg/dL (7-17) H 11/22/19 05:55 Creatinine 6.8 mg/dL (0.7-1.2) H 11/22/19 05:55 Estimated GFR 7 ml/min 11/22/19 05:55 BUN/Creatinine Ratio 4 % 11/22/19 05:55 Glucose 147 mg/dL (65-100) H 11/22/19 05:55 Calcium 8.9 mg/dL (8.4-10.2) 11/22/19 05:55 Magnesium 2.40 mg/dL (1.7-2.3) H 11/21/19 14:29 Total Bilirubin 0.30 mg/dL (0.1-1.2) 11/21/19 14:29 Direct Bilirubin < 0.2 mg/dL (0-0.2) 11/21/19 14:29 Indirect Bilirubin 0.1 mg/dL 11/21/19 14:29 AST 14 units/L (5-40) 11/21/19 14:29 ALT 10 units/L (7-56) 11/21/19 14:29 Alkaline Phosphatase 133 units/L (35-129) H 11/21/19 14:29 Total Creatine Kinase 59 units/L (30-135) 11/21/19 14:29 CK-MB (CK-2) 1.2 ng/mL (0.0-4.0) 11/21/19 14:29 CK-MB (CK-2) Rel Index 2.0 (0-4) 11/21/19 14:29 Troponin T 0.075 ng/mL (0.00-0.029) H 11/21/19 14:29 NT-Pro-B Natriuret Pep 2736 pg/mL (0-900) H 11/21/19 14:29 Total Protein 7.6 g/dL (6.3-8.2) 11/21/19 14:29 Albumin 3.9 g/dL (3.9-5) 11/21/19 14: Albumin/Globulin Ratio 1.1 % 11/21/19 14:29 Triglycerides 205 mg/dL (2-149) H 11/21/19 14:29 Cholesterol 236 mg/dL (50-199) H 11/21/19 14:29 LDL Cholesterol Direct 163 mg/dL (50-130) H 11/21/19 14:29 HDL Cholesterol 36 mg/dL (40-59) L 11/21/19 14: Cholesterol/HDL Ratio 6.55 % 11/21/19 14:29 Hepatitis A IgM Ab Non-reactive (NonReactive) 11/21/19 14: Hep Bs Antigen Non-reactive (Negative) 11/21/19 14: Hep B Core IgM Ab Non-reactive (NonReactive) 11/21/19 14: Hepatitis C Antibody Non-reactive (NonReactive) 11/21/19 14:29 Active Medications - Current Medications Current Medications: Generic Name Dose Route Start Last Admin Trade Name Freq PRN Reason Stop Dose Admin Acetaminophen 650 mg 11/21/19 20:58 Tylenol PO Q4H PRN Pain MILD(1-3)/Fever >100.5/AREVALO Albuterol 2.5 mg 11/21/19 20:58 Proventil IH Q4HRT PRN Shortness Of Breath Ondansetron HCl 4 mg 11/21/19 20:58 Zofran IV Q8H PRN Nausea And Vomiting Sodium Chloride 10 ml 11/21/19 22:00 Sodium Chloride Flush Syringe 10 Ml IV BID ANNETTE Sodium Chloride 10 ml 11/21/19 20:58 Sodium Chloride Flush Syringe 10 Ml IV PRN PRN LINE FLUSH
[2019-11-22] MEDS: POLYETHYLENE GLYCOL 3350 17 GM POWDER PO SCH (12:09)
--- NOTE | 2019-11-22 12:22 | Consultation ---
History of Present Illness - History of Present Illness Thank you for the consultation Patient was evaluated today My assessment and plan are as follows End-stage renal disease currently in maintenance of dialysis patient did receive her hemodialysis treatment yesterday she is feeling much better Mild hyperkalemia status post hemodialysis follow-up has been normal Dialysis access: Has been working well Admitted with nausea vomiting patient has seen Melvina son in the past she will need to follow up with them she does suffer from constipation and does take MiraLAX but she does not think that is the problem now Anemia in end-stage renal disease: To monitor and follow, hemoglobin has been normal for dialysis Bone mineral disorder and secondary hyperparathyroidism will find out the details from the clinic Obesity adequately counseled and educated to lose weight Overall she appears to be stable from renal standpoint Author: Je Worrell M.D. [facility], [address] [place] [address] Tel; [phone] Source of information: From patient History of present illness 68-year-old -[place] female who is admitted here after nausea and vomiting on hemodialysis, patient, has had evidence of pulmonary vascular congestion mild hyperkalemia for which she was given hemodialysis treatment yesterday she is feeling much better. patient denies having any issues with her access Patient tells me that she does suffer from constipation but that has been stable she has seen and followed with Melvina son, today she is feeling much better Past medical history: ESRD Hypertension Anemia Obesity Secondary hyperparathyroidism Current allergies: Reviewed from the current chart Social history: Reviewed from the current chart Family history: Reviewed from the current chart Review of system: Positive for shortness of breath mild, no chest pain nausea with vomiting history of chronic constipation All other review of systems negative Physical examination Vitals: Reviewed General: No acute distress HEENT: Oral mucosa moist no pallor or icterus Neck: Supple without any JVD thyromegaly or nodular mass Chest: Clear to auscultation Heart: Regular rate and rhythm S1-S2 heard no S3-S4 Abdomen: Soft nontender, bowel sounds present no renal bruit no suprapubic masses no CVA tenderness noted Extremity: Minimal edema dry skin no peripheral cyanosis Endocrine: Thyroid not enlarged Psychiatric: No agitation and aggression noted Musculoskeletal: No joint effusion noted Labs and x-rays: Reviewed from this admission Past History Past Medical History: diabetes, ESRD, hypertension, other (See HPI) Past Surgical History: appendectomy, cholecystectomy, hernia repair, bowel surg bakari, Other ( AV fistula left arm, hysterectomy, , tonsillectomy, colostomy, colostomy reversal. HERNIA REPAIR. LITHOTRIPSY) Social history: , lives with family. denies: smoking, alcohol abuse, prescription drug abuse, IV drug use Family history: diabetes, hypertension Medications and Allergies Allergies Allergy/AdvReac Type Severity Reaction Status Date / Time aspirin AdvReac HEART Verified 01/23/17 16:26 FLUTTER Home Medications Medication Instructions Recorded Confirmed Last Taken Type AtorvaSTATin [Lipitor] 80 mg PO QHS #30 tablet 10/08/17 11/21/19 11/20/19 Rx Apixaban [Eliquis] 5 mg PO BID MDD 10 mg 01/01/18 11/21/19 11/20/19 History Cinacalcet HCl [Sensipar] 60 mg PO DAILY MDD 60 mg 01/01/18 11/21/19 11/21/19 History Metoprolol [Lopressor TAB] 25 mg BID 07/13/18 11/21/19 11/20/19 History Pantoprazole [Protonix TAB] 40 mg PO BID #30 tablet 11/07/18 11/21/19 11/21/19 Rx L. Acidophilus/Bifid. Animalis 1 each PO DAILY 12/11/18 11/21/19 Unknown History [Dialyvite Chewable Probiotic] Cyclobenzaprine HCl [Flexeril 5 MG 5 mg PO TID #15 tab 12/16/18 11/21/19 11/21/19 Rx TAB] Ferric Citrate (Nf) [Auryxia] 210 mg PO TID 11/21/19 11/21/19 11/21/19 History Gabapentin 300 mg PO QHS 11/21/19 11/21/19 11/19/19 History Polyethylene Glycol 3350 [Miralax] 119 gm PO DAILY 11/22/19 11/22/19 11/20/19 History Active Meds: Active Medications Acetaminophen (Tylenol) 650 mg PO Q4H PRN PRN Reason: Pain MILD(1-3)/Fever >100.5/AREVALO Albuterol (Proventil) 2.5 mg IH Q4HRT PRN PRN Reason: Shortness Of Breath Ondansetron HCl (Zofran) 4 mg IV Q8H PRN PRN Reason: Nausea And Vomiting Polyethylene Glycol (Miralax 3350) 17 gm PO QDAY [facility] Last Admin: 11/22/19 12:09 Dose: 17 gm Documented by: Sodium Chloride (Sodium Chloride Flush Syringe 10 Ml) 10 ml IV BID [facility] Last Admin: 11/22/19 12:09 Dose: 10 ml Documented by: Sodium Chloride (Sodium Chloride Flush Syringe 10 Ml) 10 ml IV PRN PRN PRN Reason: LINE FLUSH Exam - Vital Signs Vital signs: Vital Signs Pulse Ox 100 11/21/19 12:44 Results - Lab Results 11/21/19 14:29 11/22/19 05:55 Most recent lab results Calcium 8.9 mg/dL (8.4-10.2) 11/22/19 05:55 Magnesium 2.40 mg/dL (1.7-2.3) H 11/21/19 14:29
[2019-11-22] MEDS: APIXABAN 5 MG TAB PO SCH (21:41)
[2019-11-22] MEDS: guaiFENesin 100 MG/5 ML ORAL LIQD PO PRN (23:34)
[2019-11-23 07:40] LABS: Hematocrit 29.3 % (30.3-42.9); Hemoglobin 9.9 gm/dl (10.1-14.3); Mean Corpuscular HGB Conc 34 % (30-34); Mean Corpuscular Volume 91 fl (79-97); Platelet Count 134 K/mm3 (140-440); Red Blood Count 3.22 M/mm3 (3.65-5.03); Red Cell Distribution Width 16.6 % (13.2-15.2)
[2019-11-23 07:54] LABS: Calcium 9.4 mg/dL (8.4-10.2)
[2019-11-23] MEDS: APIXABAN 5 MG TAB PO SCH ×2 (09:03→21:50)
[2019-11-23] MEDS: POLYETHYLENE GLYCOL 3350 17 GM POWDER PO SCH (09:04)
--- NOTE | 2019-11-23 09:55 | Progress Note ---
Assessment and Plan Impression * End-stage renal disease on maintenance hemodialysis * Nausea/vomiting * Hypertension * Type II DM * Coronary artery disease * History of CVA Recommendations * Patient is s/p HD on Saturday. No acute indication for HD today * Hemodialysis TTS; UF as tolerated * Epogen TIW prn * Adjust diet and meds for ESRD state * No IV, BP or venipuncture access arm * Wean oxygen as tolerated Subjective Date of service: 11/23/19 Interval history: Patient denies N/V. Tolerating PO. Currently on 3L [place] oxygen - does not require oxygen at home. She denies SOB. Objective - Vital Signs Vital signs: Vital Signs - 12hr 11/22/19 11/23/19 11/23/19 22:51 00:03 03:54 Temperature 98.0 F 97.8 F Pulse Rate 83 71 Pulse Rate [ 79 Apical] Pulse Rate [ 79 From Monitor] Respiratory 16 16 18 Rate Blood Pressure 145/58 144/61 O2 Sat by Pulse 99 99 100 Oximetry 11/23/19 11/23/19 11/23/19 07:19 07:31 09:13 Temperature 98.4 F Pulse Rate 66 Pulse Rate [ 79 Apical] Pulse Rate [ 79 From Monitor] Respiratory 16 18 Rate Blood Pressure 144/59 O2 Sat by Pulse 99 100 96 Oximetry 11/23/19 09:25 Temperature Pulse Rate 68 Pulse Rate [ Apical] Pulse Rate [ From Monitor] Respiratory Rate Blood Pressure O2 Sat by Pulse Oximetry - Lab 11/23/19 06:29 11/23/19 06:29 Most recent lab results Calcium 9.4 mg/dL (8.4-10.2) 11/23/19 06:29 Magnesium 2.40 mg/dL (1.7-2.3) H 11/21/19 14:29 Medications & Allergies - Medications Allergies/Adverse Reactions: Allergies aspirin Adverse Reaction (Verified 01/23/17 16:26) HEART FLUTTER Home Medications: Home Medications Medication Instructions Recorded Confirmed Last Taken Type AtorvaSTATin [Lipitor] 80 mg PO QHS #30 tablet 10/08/17 11/21/19 11/20/19 Rx Apixaban [Eliquis] 5 mg PO BID MDD 10 mg 01/01/18 11/21/19 11/20/19 History Cinacalcet HCl [Sensipar] 60 mg PO DAILY MDD 60 mg 01/01/18 11/21/19 11/21/19 History Metoprolol [Lopressor TAB] 25 mg BID 07/13/18 11/21/19 11/20/19 History Pantoprazole [Protonix TAB] 40 mg PO BID #30 tablet 11/07/18 11/21/19 11/21/19 Rx L. Acidophilus/Bifid. Animalis 1 each PO DAILY 12/11/18 11/21/19 Unknown History [Dialyvite Chewable Probiotic] Cyclobenzaprine HCl [Flexeril 5 MG 5 mg PO TID #15 tab 12/16/18 11/21/19 11/21/19 Rx TAB] Ferric Citrate (Nf) [Auryxia] 210 mg PO TID 11/21/19 11/21/19 11/21/19 History Gabapentin 300 mg PO QHS 11/21/19 11/21/19 11/19/19 History Polyethylene Glycol 3350 [Miralax] 119 gm PO DAILY 11/22/19 11/22/19 11/20/19 History Active Medications: Generic Name Dose Route Start Last Admin Trade Name Freq PRN Reason Stop Dose Admin Acetaminophen 650 mg 11/21/19 20:58 Tylenol PO Q4H PRN Pain MILD(1-3)/Fever >100.5/AREVALO Albuterol 2.5 mg 11/21/19 20:58 Proventil IH Q4HRT PRN Shortness Of Breath Apixaban 5 mg 11/22/19 22:00 11/23/19 09:03 Eliquis PO 5 mg Q12HR ANNETTE Administration Protocol Guaifenesin 200 mg 11/22/19 22:52 11/22/19 23:34 Robitussin PO 200 mg Q6H PRN Administration Cough Ondansetron HCl 4 mg 11/21/19 20:58 Zofran IV Q8H PRN Nausea And Vomiting Polyethylene Glycol 17 gm 11/22/19 11:00 11/23/19 09:04 Miralax 3350 PO 17 gm QDAY ANNETTE Administration Sodium Chloride 10 ml 11/21/19 22:00 11/23/19 09:04 Sodium Chloride Flush Syringe 10 Ml IV 10 ml BID ANNETTE Administration Sodium Chloride 10 ml 11/21/19 20:58 Sodium Chloride Flush Syringe 10 Ml IV PRN PRN LINE FLUSH
[2019-11-23 09:59] LABS: Total Cells Counted 100
[2019-11-23 10:00] LABS: Platelet Estimate Consistent w Auto; Tear Drop Cells Few
--- NOTE | 2019-11-23 10:25 | Progress Note ---
Assessment and Plan Assessment and plan: ESRD. Continue hemodialysis per nephrology. Continue daily weight and avoid nephrotoxic agents Hyperkalemia. Etiology secondary to above and missed hemodialysis. Hypertension. Continue antihypertensive medications. Hyperlipidemia. Continue statin. Intractable nausea vomiting. Resolved. Patient tolerating diet. Etiology may be secondary to gastroparesis. Diabetes mellitus type 2. Continue Accu-Cheks, sliding scale insulin and consistent carbohydrate diet. Deconditioning. PT/OT evaluation. DVT prophylaxis. Continue SCDs. History Interval history: 68 YO Female with ESRD on HD(T,R,Sa), HTN, HLD, DM, Anemia secondary to ESRD, Metabolic Syndrome, Obesity, presented to ED for complaints of generalized weakness over the past 3 to 4 days [employer]. Patient reportedly presented to her dialysis clinic for her routine scheduled dialysis on the day of admission but experienced an acute onset of nausea and multiple episodes of vomiting which prompted her visit to the emergency room. Patient was admitted for intractable nausea and vomiting and missed hemodialysis. Hospitalist Physical - Constitutional Vitals: Temp Pulse Resp BP Pulse Ox 98.4 F 68 18 144/59 96 11/23/19 07:31 11/23/19 09:25 11/23/19 07:31 11/23/19 07:31 11/23/19 09:13 General appearance: Present: mild distress - EENT Eyes: Present: PERRL, EOM intact ENT: hearing intact, clear oral mucosa, dentition normal - Neck Neck: Present: supple, normal ROM - Respiratory Respiratory effort: normal Respiratory: bilateral: CTA - Cardiovascular Rhythm: regular Heart Sounds: Present: S1 & S2. Absent: gallop, rub - Extremities Extremities: no ischemia, No edema, Full ROM - Abdominal General gastrointestinal: soft, non-tender, non-distended, normal bowel sounds - Integumentary Integumentary: Present: clear, warm, dry - Neurologic Neurologic: CNII-XII intact, moves all extremities MAIKEL score - Maikel Score Age > 65: (0) No Aspirin use within the Past 7 Days: (0) No 3 or more CAD Risk Factors: (1) Yes 2 or more Angina events in past 24 hrs: (0) No Known CAD with more than 50% Stenosis: (0) No Elevated Cardiac Markers: (0) No ST Deviation Greater than 0.5mm: (0) No MAIKEL Score: 1 Results - Labs CBC & Chem 7: 11/23/19 06:29 11/23/19 06:29 Labs: Laboratory Last Values WBC 4.9 K/mm3 (4.5-11.0) 11/23/19 06: RBC 3.22 M/mm3 (3.65-5.03) L 11/23/19 06:29 Hgb 9.9 gm/dl (10.1-14.3) L 11/23/19 06: Hct 29.3 % (30.3-42.9) L 11/23/19 06: MCV 91 fl (79-97) 11/23/19 06: MCH 31 pg (28-32) 11/23/19 06: MCHC 34 % (30-34) 11/23/19 06: RDW 16.6 % (13.2-15.2) H 11/23/19 06:29 Plt Count 134 K/mm3 (140-440) L 11/23/19 06:29 Lymph % (Auto) 10.1 % (13.4-35.0) L 11/21/19 14:29 [place] % (Auto) Photo Mask Inspector 11/23/19 06: Eos % (Auto) 1.3 % (0.0-4.3) 11/21/19 14: Baso % (Auto) 0.5 % (0.0-1.8) 11/21/19 14: Lymph # 1.1 K/mm3 (1.2-5.4) L 11/21/19 14: [place] # 1.1 K/mm3 (0.0-0.8) H 11/21/19 14: Eos # 0.1 K/mm3 (0.0-0.4) 11/21/19 14: Baso # 0.1 K/mm3 (0.0-0.1) 11/21/19 14: Add Manual Diff Complete 11/23/19 06: Total Counted 100 11/23/19 06:29 Seg Neutrophils % 78.0 % (40.0-70.0) H 11/21/19 14: Seg Neuts % (Manual) 73.0 % (40.0-70.0) H 11/23/19 06:29 Band Neutrophils % 1.0 % 11/23/19 06:29 Lymphocytes % (Manual) 11.0 % (13.4-35.0) L 11/23/19 06:29 Reactive Lymphs % (Man) 0 % 11/23/19 06:29 Monocytes % (Manual) 11.0 % (0.0-7.3) H 11/23/19 06:29 Eosinophils % (Manual) 3.0 % (0.0-4.3) 11/23/19 06:29 Basophils % (Manual) 1.0 % (0.0-1.8) 11/23/19 06:29 Metamyelocytes % 0 % 11/23/19 06:29 Myelocytes % 0 % 11/23/19 06:29 Promyelocytes % 0 % 11/23/19 06:29 Blast Cells % 0 % 11/23/19 06:29 Nucleated RBC % Not Reportable 11/23/19 06:29 Seg Neutrophils # 8.4 K/mm3 (1.8-7.7) H 11/21/19 14:29 Seg Neutrophils # Man 3.6 K/mm3 (1.8-7.7) 11/23/19 06:29 Band Neutrophils # 0.0 K/mm3 11/23/19 06:29 Lymphocytes # (Manual) 0.5 K/mm3 (1.2-5.4) L 11/23/19 06:29 Abs React Lymphs (Man) 0.0 K/mm3 11/23/19 06:29 Monocytes # (Manual) 0.5 K/mm3 (0.0-0.8) 11/23/19 06:29 Eosinophils # (Manual) 0.1 K/mm3 (0.0-0.4) 11/23/19 06:29 Basophils # (Manual) 0.0 K/mm3 (0.0-0.1) 11/23/19 06:29 Metamyelocytes # 0.0 K/mm3 11/23/19 06:29 Myelocytes # 0.0 K/mm3 11/23/19 06:29 Promyelocytes # 0.0 K/mm3 11/23/19 06:29 Blast Cells # 0.0 K/mm3 11/23/19 06:29 WBC Morphology Not Reportable 11/23/19 06:29 Hypersegmented Neuts Not Reportable 11/23/19 06:29 Hyposegmented Neuts Not Reportable 11/23/19 06:29 Hypogranular Neuts Not Reportable 11/23/19 06:29 Smudge Cells Not Reportable 11/23/19 06:29 Toxic Granulation Not Reportable 11/23/19 06:29 Toxic Vacuolation Not Reportable 11/23/19 06:29 Dohle Bodies Not Reportable 11/23/19 06:29 Pelger-Huet Anomaly Not Reportable 11/23/19 06:29 Tunde Rods Not Reportable 11/23/19 06:29 Platelet Estimate Consistent w auto 11/23/19 06:29 Clumped Platelets Not Reportable 11/23/19 06:29 Plt Clumps, EDTA Not Reportable 11/23/19 06:29 Large Platelets Not Reportable 11/23/19 06:29 Giant Platelets Not Reportable 11/23/19 06:29 Platelet Satelliting Not Reportable 11/23/19 06:29 Plt Morphology Comment Not Reportable 11/23/19 06:29 RBC Morphology Not Reportable 11/23/19 06:29 Dimorphic RBCs Not Reportable 11/23/19 06:29 Polychromasia Not Reportable 11/23/19 06:29 Hypochromasia Not Reportable 11/23/19 06:29 Poikilocytosis Not Reportable 11/23/19 06:29 Anisocytosis Not Reportable 11/23/19 06:29 Microcytosis Not Reportable 11/23/19 06:29 Macrocytosis Not Reportable 11/23/19 06:29 Spherocytes Not Reportable 11/23/19 06:29 Pappenheimer Bodies Not Reportable 11/23/19 06:29 Sickle Cells Not Reportable 11/23/19 06:29 Target Cells Not Reportable 11/23/19 06:29 Tear Drop Cells Few 11/23/19 06:29 Ovalocytes Not Reportable 11/23/19 06:29 Helmet Cells Not Reportable 11/23/19 06:29 [place] Bodies Not Reportable 11/23/19 06:29 [place] Rings Not Reportable 11/23/19 06:29 [place] Cells Not Reportable 11/23/19 06:29 Bite Cells Not Reportable 11/23/19 06:29 Crenated Cell Not Reportable 11/23/19 06:29 Elliptocytes Not Reportable 11/23/19 06:29 Acanthocytes (Spur) Not Reportable 11/23/19 06:29 Rouleaux Not Reportable 11/23/19 06:29 Hemoglobin C Crystals Not Reportable 11/23/19 06:29 Schistocytes Not Reportable 11/23/19 06:29 Malaria parasites Not Reportable 11/23/19 06:29 [place] Bodies Not Reportable 11/23/19 06:29 Hem Pathologist Commnt No 11/23/19 06:29 PT 14.4 Sec. (12.2-14.9) 11/21/19 14:29 INR 1.11 (0.87-1.13) 11/21/19 14:29 APTT 33.0 Sec. (24.2-36.6) 11/21/19 14:29 Sodium 134 mmol/L (137-145) L 11/23/19 06:29 Potassium 4.7 mmol/L (3.6-5.0) D 11/23/19 06:29 Chloride 93.1 mmol/L (98-107) L 11/23/19 06:29 Carbon Dioxide 22 mmol/L (22-30) 11/23/19 06:29 Anion Gap 24 mmol/L 11/23/19 06:29 BUN 49 mg/dL (7-17) H 11/23/19 06:29 Creatinine 9.3 mg/dL (0.7-1.2) H 11/23/19 06:29 Estimated GFR 5 ml/min 11/23/19 06:29 BUN/Creatinine Ratio 5 % 11/23/19 06:29 Glucose 178 mg/dL (65-100) H 11/23/19 06:29 POC Glucose 190 (70-105) H 11/22/19 16:15 Calcium 9.4 mg/dL (8.4-10.2) 11/23/19 06:29 Magnesium 2.40 mg/dL (1.7-2.3) H 11/21/19 14:29 Total Bilirubin 0.30 mg/dL (0.1-1.2) 11/21/19 14:29 Direct Bilirubin < 0.2 mg/dL (0-0.2) 11/21/19 14:29 Indirect Bilirubin 0.1 mg/dL 11/21/19 14:29 AST 14 units/L (5-40) 11/21/19 14:29 ALT 10 units/L (7-56) 11/21/19 14:29 Alkaline Phosphatase 133 units/L (35-129) H 11/21/19 14:29 Total Creatine Kinase 59 units/L (30-135) 11/21/19 14:29 CK-MB (CK-2) 1.2 ng/mL (0.0-4.0) 11/21/19 14:29 CK-MB (CK-2) Rel Index 2.0 (0-4) 11/21/19 14:29 Troponin T 0.075 ng/mL (0.00-0.029) H 11/21/19 14:29 NT-Pro-B Natriuret Pep 2736 pg/mL (0-900) H 11/21/19 14:29 Total Protein 7.6 g/dL (6.3-8.2) 11/21/19 14:29 Albumin 3.9 g/dL (3.9-5) 11/21/19 14:29 Albumin/Globulin Ratio 1.1 % 11/21/19 14:29 Triglycerides 205 mg/dL (2-149) H 11/21/19 14:29 Cholesterol 236 mg/dL (50-199) H 11/21/19 14:29 LDL Cholesterol Direct 163 mg/dL (50-130) H 11/21/19 14:29 HDL Cholesterol 36 mg/dL (40-59) L 11/21/19 14:29 Cholesterol/HDL Ratio 6.55 % 11/21/19 14:29 Hepatitis A IgM Ab Non-reactive (NonReactive) 11/21/19 14:29 Hep Bs Antigen Non-reactive (Negative) 11/21/19 14:29 Hep B Core IgM Ab Non-reactive (NonReactive) 11/21/19 14:29 Hepatitis C Antibody Non-reactive (NonReactive) 11/21/19 14:29 Active Medications - Current Medications Current Medications: Generic Name Dose Route Start Last Admin Trade Name Freq PRN Reason Stop Dose Admin Acetaminophen 650 mg 11/21/19 20:58 Tylenol PO Q4H PRN Pain MILD(1-3)/Fever >100.5/AREVALO Albuterol 2.5 mg 11/21/19 20:58 Proventil IH Q4HRT PRN Shortness Of Breath Apixaban 5 mg 11/22/19 22:00 11/23/19 09:03 Eliquis PO 5 mg Q12HR ANNETTE Administration Protocol Guaifenesin 200 mg 11/22/19 22:52 11/22/19 23:34 Robitussin PO 200 mg Q6H PRN Administration Cough Ondansetron HCl 4 mg 11/21/19 20:58 Zofran IV Q8H PRN Nausea And Vomiting Polyethylene Glycol 17 gm 11/22/19 11:00 11/23/19 09:04 Miralax 3350 PO 17 gm QDAY ANNETTE Administration Sodium Chloride 10 ml 11/21/19 22:00 11/23/19 09:04 Sodium Chloride Flush Syringe 10 Ml IV 10 ml BID ANNETTE Administration Sodium Chloride 10 ml 11/21/19 20:58 Sodium Chloride Flush Syringe 10 Ml IV PRN PRN LINE FLUSH
--- NOTE | 2019-11-23 12:28 | Progress Note ---
Assessment and Plan Assessment and plan: ESRD. Continue hemodialysis per nephrology. Continue daily weight and avoid nephrotoxic agents Hyperkalemia. Etiology secondary to above and missed hemodialysis. Hypertension. Continue antihypertensive medications. Hyperlipidemia. Continue statin. Intractable nausea vomiting. Resolved. Patient tolerating diet. Etiology may be secondary to gastroparesis. Diabetes mellitus type 2. Continue Accu-Cheks, sliding scale insulin and consistent carbohydrate diet. Deconditioning. PT/OT evaluation. DVT prophylaxis. Continue SCDs. Disposition. Anticipate discharge in a.m. 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 Patient reportedly presented to her dialysis clinic for her routine scheduled dialysis on the day of admission but experienced an acute onset of nausea and multiple episodes of vomiting which prompted her visit to the emergency room. Patient was admitted for intractable nausea and vomiting and missed hemodialysis. Hospitalist Physical - Constitutional Vitals: Temp Pulse Resp BP Pulse Ox 97.9 F 68 18 150/61 100 11/23/19 11:23 11/23/19 11:23 11/23/19 11:23 11/23/19 11:23 11/23/19 11:23 General appearance: Present: no acute distress - EENT Eyes: Present: PERRL, EOM intact ENT: hearing intact, clear oral mucosa, dentition normal - Neck Neck: Present: supple, normal ROM - Respiratory Respiratory effort: normal Respiratory: bilateral: CTA - Cardiovascular Rhythm: regular Heart Sounds: Present: S1 & S2. Absent: gallop, rub - Extremities Extremities: no ischemia, No edema, Full ROM - Abdominal General gastrointestinal: soft, non-tender, non-distended, normal bowel sounds - Integumentary Integumentary: Present: clear, warm, dry - Neurologic Neurologic: CNII-XII intact, moves all extremities MAIKEL score - Maikel Score Age > 65: (0) No Aspirin use within the Past 7 Days: (0) No 3 or more CAD Risk Factors: (1) Yes 2 or more Angina events in past 24 hrs: (0) No Known CAD with more than 50% Stenosis: (0) No Elevated Cardiac Markers: (0) No ST Deviation Greater than 0.5mm: (0) No MAIKEL Score: 1 Results - Labs CBC & Chem 7: 11/23/19 06:29 11/23/19 06:29 Labs: Laboratory Last Values WBC 4.9 K/mm3 (4.5-11.0) 11/23/19 06: RBC 3.22 M/mm3 (3.65-5.03) L 11/23/19 06:29 Hgb 9.9 gm/dl (10.1-14.3) L 11/23/19 06: Hct 29.3 % (30.3-42.9) L 11/23/19 06: MCV 91 fl (79-97) 11/23/19 06: MCH 31 pg (28-32) 11/23/19 06: MCHC 34 % (30-34) 11/23/19 06: RDW 16.6 % (13.2-15.2) H 11/23/19 06:29 Plt Count 134 K/mm3 (140-440) L 11/23/19 06:29 Lymph % (Auto) 10.1 % (13.4-35.0) L 11/21/19 14: [place] % (Auto) Cps Team Lead 11/23/19 06: Eos % (Auto) 1.3 % (0.0-4.3) 11/21/19 14: Baso % (Auto) 0.5 % (0.0-1.8) 11/21/19 14: Lymph # 1.1 K/mm3 (1.2-5.4) L 11/21/19 14: [place] # 1.1 K/mm3 (0.0-0.8) H 11/21/19 14: Eos # 0.1 K/mm3 (0.0-0.4) 11/21/19 14: Baso # 0.1 K/mm3 (0.0-0.1) 11/21/19 14: Add Manual Diff Complete 11/23/19 06: Total Counted 100 11/23/19 06:29 Seg Neutrophils % 78.0 % (40.0-70.0) H 11/21/19 14: Seg Neuts % (Manual) 73.0 % (40.0-70.0) H 11/23/19 06:29 Band Neutrophils % 1.0 % 02/24/20 06:29 Lymphocytes % (Manual) 11.0 % (13.4-35.0) L 11/23/19 06:29 Reactive Lymphs % (Man) 0 % 11/23/19 06:29 Monocytes % (Manual) 11.0 % (0.0-7.3) H 11/23/19 06:29 Eosinophils % (Manual) 3.0 % (0.0-4.3) 11/23/19 06:29 Basophils % (Manual) 1.0 % (0.0-1.8) 11/23/19 06:29 Metamyelocytes % 0 % 11/23/19 06:29 Myelocytes % 0 % 11/23/19 06: Promyelocytes % 0 % 11/23/19 06:29 Blast Cells % 0 % 11/23/19 06:29 Nucleated RBC % Not Reportable 11/23/19 06:29 Seg Neutrophils # 8.4 K/mm3 (1.8-7.7) H 11/21/19 14:29 Seg Neutrophils # Man 3.6 K/mm3 (1.8-7.7) 11/23/19 06:29 Band Neutrophils # 0.0 K/mm3 11/23/19 06:29 Lymphocytes # (Manual) 0.5 K/mm3 (1.2-5.4) L 11/23/19 06:29 Abs React Lymphs (Man) 0.0 K/mm3 11/23/19 06:29 Monocytes # (Manual) 0.5 K/mm3 (0.0-0.8) 11/23/19 06:29 Eosinophils # (Manual) 0.1 K/mm3 (0.0-0.4) 11/23/19 06:29 Basophils # (Manual) 0.0 K/mm3 (0.0-0.1) 11/23/19 06:29 Metamyelocytes # 0.0 K/mm3 11/23/19 06:29 Myelocytes # 0.0 K/mm3 11/23/19 06:29 Promyelocytes # 0.0 K/mm3 11/23/19 06:29 Blast Cells # 0.0 K/mm3 11/23/19 06:29 WBC Morphology Not Reportable 11/23/19 06:29 Hypersegmented Neuts Not Reportable 02/24/20 06:29 Hyposegmented Neuts Not Reportable 11/23/19 06:29 Hypogranular Neuts Not Reportable 11/23/19 06:29 Smudge Cells Not Reportable 11/23/19 06:29 Toxic Granulation Not Reportable 11/23/19 06:29 Toxic Vacuolation Not Reportable 11/23/19 06:29 Dohle Bodies Not Reportable 11/23/19 06:29 Pelger-Huet Anomaly Not Reportable 11/23/19 06:29 Tunde Rods Not Reportable 11/23/19 06:29 Platelet Estimate Consistent w auto 11/23/19 06:29 Clumped Platelets Not Reportable 11/23/19 06:29 Plt Clumps, EDTA Not Reportable 11/23/19 06:29 Large Platelets Not Reportable 11/23/19 06:29 Giant Platelets Not Reportable 11/23/19 06:29 Platelet Satelliting Not Reportable 11/23/19 06:29 Plt Morphology Comment Not Reportable 11/23/19 06:29 RBC Morphology Not Reportable 11/23/19 06:29 Dimorphic RBCs Not Reportable 11/23/19 06:29 Polychromasia Not Reportable 11/23/19 06:29 Hypochromasia Not Reportable 11/23/19 06:29 Poikilocytosis Not Reportable 11/23/19 06:29 Anisocytosis Not Reportable 11/23/19 06:29 Microcytosis Not Reportable 11/23/19 06:29 Macrocytosis Not Reportable 11/23/19 06:29 Spherocytes Not Reportable 11/23/19 06:29 Pappenheimer Bodies Not Reportable 11/23/19 06:29 Sickle Cells Not Reportable 11/23/19 06:29 Target Cells Not Reportable 11/23/19 06:29 Tear Drop Cells Few 11/23/19 06:29 Ovalocytes Not Reportable 11/23/19 06:29 Helmet Cells Not Reportable 11/23/19 06:29 [place] Bodies Not Reportable 11/23/19 06:29 [place] Rings Not Reportable 11/23/19 06:29 [place] Cells Not Reportable 11/23/19 06:29 Bite Cells Not Reportable 11/23/19 06:29 Crenated Cell Not Reportable 11/23/19 06:29 Elliptocytes Not Reportable 11/23/19 06:29 Acanthocytes (Spur) Not Reportable 11/23/19 06:29 Rouleaux Not Reportable 11/23/19 06:29 Hemoglobin C Crystals Not Reportable 11/23/19 06:29 Schistocytes Not Reportable 11/23/19 06:29 Malaria parasites Not Reportable 11/23/19 06:29 [place] Bodies Not Reportable 11/23/19 06:29 Hem Pathologist Commnt No 11/23/19 06:29 PT 14.4 Sec. (12.2-14.9) 11/21/19 14:29 INR 1.11 (0.87-1.13) 11/21/19 14:29 APTT 33.0 Sec. (24.2-36.6) 11/21/19 14:29 Sodium 134 mmol/L (137-145) L 11/23/19 06:29 Potassium 4.7 mmol/L (3.6-5.0) D 11/23/19 06:29 Chloride 93.1 mmol/L (98-107) L 11/23/19 06:29 Carbon Dioxide 22 mmol/L (22-30) 11/23/19 06:29 Anion Gap 24 mmol/L 11/23/19 06:29 BUN 49 mg/dL (7-17) H 11/23/19 06:29 Creatinine 9.3 mg/dL (0.7-1.2) H 11/23/19 06:29 Estimated GFR 5 ml/min 11/23/19 06:29 BUN/Creatinine Ratio 5 % 11/23/19 06:29 Glucose 178 mg/dL (65-100) H 11/23/19 06:29 POC Glucose 190 (70-105) H 11/22/19 16:15 Calcium 9.4 mg/dL (8.4-10.2) 11/23/19 06:29 Magnesium 2.40 mg/dL (1.7-2.3) H 11/21/19 14:29 Total Bilirubin 0.30 mg/dL (0.1-1.2) 11/21/19 14:29 Direct Bilirubin < 0.2 mg/dL (0-0.2) 11/21/19 14:29 Indirect Bilirubin 0.1 mg/dL 11/21/19 14:29 AST 14 units/L (5-40) 11/21/19 14:29 ALT 10 units/L (7-56) 11/21/19 14:29 Alkaline Phosphatase 133 units/L (35-129) H 11/21/19 14:29 Total Creatine Kinase 59 units/L (30-135) 11/21/19 14:29 CK-MB (CK-2) 1.2 ng/mL (0.0-4.0) 11/21/19 14: CK-MB (CK-2) Rel Index 2.0 (0-4) 11/21/19 14:29 Troponin T 0.075 ng/mL (0.00-0.029) H 11/21/19 14:29 NT-Pro-B Natriuret Pep 2736 pg/mL (0-900) H 11/21/19 14:29 Total Protein 7.6 g/dL (6.3-8.2) 11/21/19 14: Albumin 3.9 g/dL (3.9-5) 11/21/19 14: Albumin/Globulin Ratio 1.1 % 11/21/19 14:29 Triglycerides 205 mg/dL (2-149) H 11/21/19 14:29 Cholesterol 236 mg/dL (50-199) H 11/21/19 14:29 LDL Cholesterol Direct 163 mg/dL (50-130) H 11/21/19 14:29 HDL Cholesterol 36 mg/dL (40-59) L 11/21/19 14:29 Cholesterol/HDL Ratio 6.55 % 11/21/19 14:29 Hepatitis A IgM Ab Non-reactive (NonReactive) 11/21/19 14:29 Hep Bs Antigen Non-reactive (Negative) 11/21/19 14:29 Hep B Core IgM Ab Non-reactive (NonReactive) 11/21/19 14:29 Hepatitis C Antibody Non-reactive (NonReactive) 11/21/19 14:29 Active Medications - Current Medications Current Medications: Generic Name Dose Route Start Last Admin Trade Name Freq PRN Reason Stop Dose Admin Acetaminophen 650 mg 11/21/19 20:58 Tylenol PO Q4H PRN Pain MILD(1-3)/Fever >100.5/AREVALO Albuterol 2.5 mg 11/21/19 20:58 Proventil IH Q4HRT PRN Shortness Of Breath Apixaban 5 mg 11/22/19 22:00 11/23/19 09:03 Eliquis PO 5 mg Q12HR ANNETTE Administration Protocol Guaifenesin 200 mg 11/22/19 22:52 11/22/19 23:34 Robitussin PO 200 mg Q6H PRN Administration Cough Ondansetron HCl 4 mg 11/21/19 20:58 Zofran IV Q8H PRN Nausea And Vomiting Polyethylene Glycol 17 gm 11/22/19 11:00 11/23/19 09:04 Miralax 3350 PO 17 gm QDAY ANNETTE Administration Sodium Chloride 10 ml 11/21/19 22:00 11/23/19 09:04 Sodium Chloride Flush Syringe 10 Ml IV 10 ml BID ANNETTE Administration Sodium Chloride 10 ml 11/21/19 20:58 Sodium Chloride Flush Syringe 10 Ml IV PRN PRN LINE FLUSH
[2019-11-23] MEDS: guaiFENesin 100 MG/5 ML ORAL LIQD PO PRN (21:55)
--- NOTE | 2019-11-24 09:25 | Progress Note ---
Assessment and Plan Impression * End-stage renal disease on maintenance hemodialysis * Nausea/vomiting * Hypertension * Type II DM * Coronary artery disease * History of CVA Recommendations * Patient is s/p HD on Saturday. * Hemodialysis TTS; UF as tolerated * Epogen TIW prn * Adjust diet and meds for ESRD state * No IV, BP or venipuncture access arm * Wean oxygen as tolerated Subjective Date of service: 11/24/19 Interval history: Patient has no complaints. She denies abdominal pain, nausea. Remains on supplemental oxygen Objective - Vital Signs Vital signs: Vital Signs - 12hr 11/23/19 11/24/19 11/24/19 23:39 04:12 07:17 Temperature 98.4 F 97.5 F L Pulse Rate 74 71 Pulse Rate [ 79 Apical] Pulse Rate [ 79 From Monitor] Respiratory 20 18 16 Rate Blood Pressure 158/49 156/43 O2 Sat by Pulse 100 100 99 Oximetry 11/24/19 07:47 Temperature 97.9 F Pulse Rate 78 Pulse Rate [ Apical] Pulse Rate [ From Monitor] Respiratory 18 Rate Blood Pressure 162/54 O2 Sat by Pulse 99 Oximetry - General Appearance General appearance: well-developed, well-nourished EENT: ATNC Respiratory: Present: Decreased Breath Sounds Cardiology: regular, S1S2 Gastrointestinal: normal, no tenderness, no distended Integumentary: no rash, warm and dry Psychiatric: cooperative - Lab 11/23/19 06:29 11/23/19 06:29 Most recent lab results Calcium 9.4 mg/dL (8.4-10.2) 11/23/19 06:29 Magnesium 2.40 mg/dL (1.7-2.3) H 11/21/19 14:29 Medications & Allergies - Medications Allergies/Adverse Reactions: Allergies aspirin Adverse Reaction (Verified 01/23/17 16:26) HEART FLUTTER Home Medications: Home Medications Medication Instructions Recorded Confirmed Last Taken Type AtorvaSTATin [Lipitor] 80 mg PO QHS #30 tablet 10/08/17 11/21/19 11/20/19 Rx Apixaban [Eliquis] 5 mg PO BID MDD 10 mg 01/01/18 11/21/19 11/20/19 History Cinacalcet HCl [Sensipar] 60 mg PO DAILY MDD 60 mg 01/01/18 11/21/19 11/21/19 History Metoprolol [Lopressor TAB] 25 mg BID 07/13/18 11/21/19 11/20/19 History Pantoprazole [Protonix TAB] 40 mg PO BID #30 tablet 11/07/18 11/21/19 11/21/19 Rx L. Acidophilus/Bifid. Animalis 1 each PO DAILY 12/11/18 11/21/19 Unknown History [Dialyvite Chewable Probiotic] Cyclobenzaprine HCl [Flexeril 5 MG 5 mg PO TID #15 tab 12/16/18 11/21/19 11/21/19 Rx TAB] Ferric Citrate (Nf) [Auryxia] 210 mg PO TID 11/21/19 11/21/19 11/21/19 History Gabapentin 300 mg PO QHS 11/21/19 11/21/19 11/19/19 History Polyethylene Glycol 3350 [Miralax] 119 gm PO DAILY 11/22/19 11/22/19 11/20/19 History Active Medications: Generic Name Dose Route Start Last Admin Trade Name Freq PRN Reason Stop Dose Admin Acetaminophen 650 mg 11/21/19 20:58 Tylenol PO Q4H PRN Pain MILD(1-3)/Fever >100.5/AREVALO Albuterol 2.5 mg 11/21/19 20:58 Proventil IH Q4HRT PRN Shortness Of Breath Apixaban 5 mg 11/22/19 22:00 11/23/19 21:50 Eliquis PO 5 mg Q12HR ANNETTE Administration Protocol Guaifenesin 200 mg 11/22/19 22:52 11/23/19 21:55 Robitussin PO 200 mg Q6H PRN Administration Cough Ondansetron HCl 4 mg 11/21/19 20:58 Zofran IV Q8H PRN Nausea And Vomiting Polyethylene Glycol 17 gm 11/22/19 11:00 11/23/19 09:04 Miralax 3350 PO 17 gm QDAY ANNETTE Administration Sodium Chloride 10 ml 11/21/19 22:00 11/23/19 21:58 Sodium Chloride Flush Syringe 10 Ml IV Not Given BID ANNETTE Sodium Chloride 10 ml 11/21/19 20:58 Sodium Chloride Flush Syringe 10 Ml IV PRN PRN LINE FLUSH
[2019-11-24] MEDS: APIXABAN 5 MG TAB PO SCH (09:57)
[2019-11-24] MEDS: POLYETHYLENE GLYCOL 3350 17 GM POWDER PO SCH (09:57)
[2019-11-24] MEDS ORDERED: SODIUM CHLORIDE 0.9% 100 ML IV PRN (10:19)
[2019-11-24] MEDS ORDERED: EPOETIN ALFA 10,000 UNIT/1 ML INJ IV PRN (10:19)
--- NOTE | 2019-11-24 12:12 | Discharge Summary ---
Providers - Providers Date of Admission: 11/21/19 17:16 Date of discharge: 11/24/19 Attending physician: KEV JOSEPH 11/22/19 08:56 Physical Therapy Evaluation and Treat [CONS] Routine Comment: Reason For Exam: Deconditioning Primary care physician: [employer] Hospitalization Condition: Fair Disposition: DC-01 TO HOME OR SELFCARE Core Measure Documentation - Palliative Care Palliative Care/ Comfort Measures: Not Applicable - Core Measures Any of the following diagnoses?: none Exam - Constitutional Vitals: Temp Pulse Resp BP Pulse Ox 97.9 F 78 18 162/54 100 11/24/19 07:47 11/24/19 07:47 11/24/19 07:47 11/24/19 07:47 11/24/19 09:38 Plan Activity: advance as tolerated Diet: low fat, low cholesterol, low salt, renal Plan of Treatment: 1.Follow up with PCP in 1 week. 2.Continue routine hemodialysis T/T/S Follow up with: PRIMARY CARE, [Primary Care Provider] - 7 Days Prescriptions: Ondansetron HCl [Zofran] 4 mg PO Q6H PRN #20 tablet PRN Reason: nausea or vomiting
[2019-11-24] MEDS ORDERED: SODIUM CHLORIDE*PRIMING MACHINE ONLY FOR DIALYSIS MC ONE (17:21)
[2019-11-24 18:44] VITALS: BP 119/56
== END 2019-11-24 20:46 | disposition home or self-care (01) | DRG 640 ==
LOC: ED 12:29 → OBSVTOIN 17:16 → 4A 17:16
PROVIDERS: ADMIT Internal Medicine; ATTEND Internal Medicine
PROC: 5A1D70Z Performance of Urinary Filtration, Intermittent, Less than 6 Hours Per Day (ICD-10-PCS; principal; 2019-11-21)
PROC: 5A1D70Z Performance of Urinary Filtration, Intermittent, Less than 6 Hours Per Day (ICD-10-PCS; 2019-11-24)
DX: E87.5 Hyperkalemia (principal); N18.6 End stage renal disease; I13.2 Hypertensive heart and chronic kidney disease with heart failure and with stage 5 chronic kidney disease, or end stage renal disease; N25.81 Secondary hyperparathyroidism of renal origin; Z68.41 Body mass index [BMI] 40.0-44.9, adult; I25.10 Atherosclerotic heart disease of native coronary artery without angina pectoris; I50.9 Heart failure, unspecified; E11.22 Type 2 diabetes mellitus with diabetic chronic kidney disease; E87.70 Fluid overload, unspecified; R06.03 Acute respiratory distress; D63.1 Anemia in chronic kidney disease; G89.29 Other chronic pain; M54.9 Dorsalgia, unspecified; M19.90 Unspecified osteoarthritis, unspecified site; R79.89 Other specified abnormal findings of blood chemistry; K21.9 Gastro-esophageal reflux disease without esophagitis; E78.00 Pure hypercholesterolemia, unspecified; I48.91 Unspecified atrial fibrillation; E88.81 Metabolic syndrome and other insulin resistance; E66.9 Obesity, unspecified; E78.2 Mixed hyperlipidemia; R09.89 Other specified symptoms and signs involving the circulatory and respiratory systems; Z95.1 Presence of aortocoronary bypass graft; Z99.2 Dependence on renal dialysis; Z79.4 Long term (current) use of insulin; Z88.8 Allergy status to other drugs, medicaments and biological substances; I25.2 Old myocardial infarction; Z87.442 Personal history of urinary calculi; Z79.01 Long term (current) use of anticoagulants; Z90.49 Acquired absence of other specified parts of digestive tract; Z90.89 Acquired absence of other organs; Z90.710 Acquired absence of both cervix and uterus; Z93.3 Colostomy status; Z86.73 Personal history of transient ischemic attack (TIA), and cerebral infarction without residual deficits; Z83.3 Family history of diabetes mellitus; Z82.49 Family history of ischemic heart disease and other diseases of the circulatory system
CPT/HCPCS: 36415; 71045; 80048; 80061; 80074; 80076; 82550; 82553; 82962; 83735; 83880; 84484; 85007; 85025; 85610; 85730; 87116; 93005; 93010; 94640; 94760; 96374; G0378; J0885; J7030

== ENCOUNTER 2020-11-21 10:02 | Outpatient (CLI) | payer MEDICARE ==
[2020-11-21] MEDS ORDERED: LIDOCAINE (4%) 40 MG/ML TOPICAL SOLN 50 ML BOTTLE TP ONE (10:34)
== END 2020-11-21 10:03 | disposition home or self-care (01) ==
LOC: WOUND 10:02
PROVIDERS: ATTEND Surgery
DX: T87.89 Other complications of amputation stump (principal); E11.621 Type 2 diabetes mellitus with foot ulcer; L97.512 Non-pressure chronic ulcer of other part of right foot with fat layer exposed; S91.301A Unspecified open wound, right foot, initial encounter; I25.2 Old myocardial infarction; E11.22 Type 2 diabetes mellitus with diabetic chronic kidney disease; N18.6 End stage renal disease; L84 Corns and callosities; F41.9 Anxiety disorder, unspecified; Z99.2 Dependence on renal dialysis; Z86.73 Personal history of transient ischemic attack (TIA), and cerebral infarction without residual deficits; Z85.3 Personal history of malignant neoplasm of breast; Z90.49 Acquired absence of other specified parts of digestive tract; Z90.710 Acquired absence of both cervix and uterus; Y83.5 Amputation of limb(s) as the cause of abnormal reaction of the patient, or of later complication, without mention of misadventure at the time of the procedure; Y92.239 Unspecified place in hospital as the place of occurrence of the external cause; X58.XXXA Exposure to other specified factors, initial encounter; Y93.89 Activity, other specified; Y92.89 Other specified places as the place of occurrence of the external cause; Y99.8 Other external cause status
CPT/HCPCS: 11042; G0463; 99215

== ENCOUNTER 2020-11-28 10:46 | Outpatient (CLI) | payer MEDICARE ==
[2020-11-28] MEDS ORDERED: LIDOCAINE (4%) 40 MG/ML TOPICAL SOLN 50 ML BOTTLE TP ONE (10:57)
== END 2020-11-28 10:47 | disposition home or self-care (01) ==
LOC: WOUND 10:46
PROVIDERS: ATTEND Surgery
DX: T87.89 Other complications of amputation stump (principal); E11.621 Type 2 diabetes mellitus with foot ulcer; L97.512 Non-pressure chronic ulcer of other part of right foot with fat layer exposed; I25.2 Old myocardial infarction; L84 Corns and callosities; F41.9 Anxiety disorder, unspecified; N28.9 Disorder of kidney and ureter, unspecified; Z99.2 Dependence on renal dialysis; Z86.73 Personal history of transient ischemic attack (TIA), and cerebral infarction without residual deficits; Z95.3 Presence of xenogenic heart valve; Z90.49 Acquired absence of other specified parts of digestive tract; Z90.710 Acquired absence of both cervix and uterus; Z85.3 Personal history of malignant neoplasm of breast; Y83.5 Amputation of limb(s) as the cause of abnormal reaction of the patient, or of later complication, without mention of misadventure at the time of the procedure

== ENCOUNTER 2020-12-12 11:04 | Outpatient (CLI) | payer MEDICARE ==
[2020-12-12] MEDS ORDERED: LIDOCAINE (4%) 40 MG/ML TOPICAL SOLN 50 ML BOTTLE TP ONE (11:05)
== END 2020-12-12 11:05 | disposition home or self-care (01) ==
LOC: WOUND 11:04
PROVIDERS: ATTEND Surgery
DX: T87.89 Other complications of amputation stump (principal); E11.621 Type 2 diabetes mellitus with foot ulcer; L97.512 Non-pressure chronic ulcer of other part of right foot with fat layer exposed; I25.2 Old myocardial infarction; L84 Corns and callosities; F41.9 Anxiety disorder, unspecified; N28.9 Disorder of kidney and ureter, unspecified; Z99.2 Dependence on renal dialysis; Z86.73 Personal history of transient ischemic attack (TIA), and cerebral infarction without residual deficits; Z95.3 Presence of xenogenic heart valve; Z90.49 Acquired absence of other specified parts of digestive tract; Z90.710 Acquired absence of both cervix and uterus; Z85.3 Personal history of malignant neoplasm of breast; Z93.3 Colostomy status; Y83.5 Amputation of limb(s) as the cause of abnormal reaction of the patient, or of later complication, without mention of misadventure at the time of the procedure

== ENCOUNTER 2021-01-02 10:52 | Outpatient (CLI) | payer MEDICARE ==
[2021-01-02] MEDS ORDERED: LIDOCAINE (4%) 40 MG/ML TOPICAL SOLN 50 ML BOTTLE TP ONE (11:35)
== END 2021-01-02 10:53 | disposition home or self-care (01) ==
LOC: WOUND 10:52
PROVIDERS: ATTEND Surgery
DX: T87.89 Other complications of amputation stump (principal); E11.621 Type 2 diabetes mellitus with foot ulcer; L97.512 Non-pressure chronic ulcer of other part of right foot with fat layer exposed; I25.2 Old myocardial infarction; L84 Corns and callosities; F41.9 Anxiety disorder, unspecified; N28.9 Disorder of kidney and ureter, unspecified; Z99.2 Dependence on renal dialysis; Z86.73 Personal history of transient ischemic attack (TIA), and cerebral infarction without residual deficits; Z95.3 Presence of xenogenic heart valve; Z90.49 Acquired absence of other specified parts of digestive tract; Z90.710 Acquired absence of both cervix and uterus; Z85.3 Personal history of malignant neoplasm of breast; Z93.3 Colostomy status; Y83.5 Amputation of limb(s) as the cause of abnormal reaction of the patient, or of later complication, without mention of misadventure at the time of the procedure
CPT/HCPCS: 82962

== ENCOUNTER 2021-01-16 11:07 | Outpatient (CLI) | payer MEDICARE ==
[2021-01-16] MEDS ORDERED: LIDOCAINE (4%) 40 MG/ML TOPICAL SOLN 50 ML BOTTLE TP ONE (12:13)
== END 2021-01-16 11:08 | disposition home or self-care (01) ==
LOC: WOUND 11:07
PROVIDERS: ATTEND Surgery
DX: T87.89 Other complications of amputation stump (principal); E11.621 Type 2 diabetes mellitus with foot ulcer; L97.512 Non-pressure chronic ulcer of other part of right foot with fat layer exposed; I25.2 Old myocardial infarction; L84 Corns and callosities; F41.9 Anxiety disorder, unspecified; N28.9 Disorder of kidney and ureter, unspecified; Z99.2 Dependence on renal dialysis; Z86.73 Personal history of transient ischemic attack (TIA), and cerebral infarction without residual deficits; Z95.3 Presence of xenogenic heart valve; Z90.49 Acquired absence of other specified parts of digestive tract; Z90.710 Acquired absence of both cervix and uterus; Z85.3 Personal history of malignant neoplasm of breast; Z93.3 Colostomy status; Y83.5 Amputation of limb(s) as the cause of abnormal reaction of the patient, or of later complication, without mention of misadventure at the time of the procedure

== ENCOUNTER 2021-02-13 10:40 | Outpatient (CLI) | payer MEDICARE ==
[2021-02-13] MEDS ORDERED: LIDOCAINE (4%) 40 MG/ML TOPICAL SOLN 50 ML BOTTLE TP ONE (12:05)
== END 2021-02-13 10:41 | disposition home or self-care (01) ==
LOC: WOUND 10:40
PROVIDERS: ATTEND Surgery
DX: T87.89 Other complications of amputation stump (principal); E11.621 Type 2 diabetes mellitus with foot ulcer; L97.512 Non-pressure chronic ulcer of other part of right foot with fat layer exposed; I25.2 Old myocardial infarction; L84 Corns and callosities; F41.9 Anxiety disorder, unspecified; N28.9 Disorder of kidney and ureter, unspecified; Z99.2 Dependence on renal dialysis; Z86.73 Personal history of transient ischemic attack (TIA), and cerebral infarction without residual deficits; Z95.3 Presence of xenogenic heart valve; Z90.49 Acquired absence of other specified parts of digestive tract; Z90.710 Acquired absence of both cervix and uterus; Z85.3 Personal history of malignant neoplasm of breast; Z93.3 Colostomy status; Y83.5 Amputation of limb(s) as the cause of abnormal reaction of the patient, or of later complication, without mention of misadventure at the time of the procedure

== ENCOUNTER 2021-04-17 10:31 | Outpatient (CLI) | payer MEDICARE ==
[2021-04-17] MEDS ORDERED: LIDOCAINE (4%) 40 MG/ML TOPICAL SOLN 50 ML BOTTLE TP ONE (10:52)
== END 2021-04-17 10:32 | disposition home or self-care (01) ==
LOC: WOUND 10:31
PROVIDERS: ATTEND Surgery
DX: T87.89 Other complications of amputation stump (principal); E11.621 Type 2 diabetes mellitus with foot ulcer; L97.518 Non-pressure chronic ulcer of other part of right foot with other specified severity; I25.2 Old myocardial infarction; L84 Corns and callosities; F41.9 Anxiety disorder, unspecified; N28.9 Disorder of kidney and ureter, unspecified; Z99.2 Dependence on renal dialysis; Z86.73 Personal history of transient ischemic attack (TIA), and cerebral infarction without residual deficits; Z95.3 Presence of xenogenic heart valve; Z90.49 Acquired absence of other specified parts of digestive tract; Z90.710 Acquired absence of both cervix and uterus; Z85.3 Personal history of malignant neoplasm of breast; Z93.3 Colostomy status; Y83.5 Amputation of limb(s) as the cause of abnormal reaction of the patient, or of later complication, without mention of misadventure at the time of the procedure
CPT/HCPCS: 99212; G0463